=== PATIENT | female | born 1940 | race Caucasian/White ===

== ENCOUNTER → 2016-05-06 | Outpatient (CLI) | payer BC ==
[~2016-05-06] MED LIST: APR/25 PO; APR25 PO; ASCA500 PO; CEFD1CAP14 PO; CHOL100010 PO; CHOL1CAP57 PO; CYAN10005 PO; DIAZ-165 PO; DICL1GEL28 TOP; DICL1GEL34 TOP; DOXY100C2 PO; DOXY100C76 PO; DOXY75CA4; EZET10TA66 PO; FEXO1TAB46 PO; FRS/40 PO; GLUC1CAP33 PO; INSDGI SC; INSDGIPEN SC; ISOS-11 PO; ISOS30TA35 PO; KETO0.5S22 OPL; LCTX PO; LEVO175T PO; LNX125 PO; LPD600 PO; LSX40 PO; METO50TA7 PO; MISCTAB30 PO; MONT1TAB3 PO; NVLG SC; NVLGI SC; OXYC-609 PO; OXYC1TAB3 PO; POLYSOL50 OPL; PRDFOPS OPL; PYRI100T4 PO; SNG10 PO; SPIR50TA3 PO; TPRSR/50 PO; TPRSR50 PO; TROS20TA3 PO; VSC/5 PO; WARF3TAB6 PO; WARF4TAB PO; WARF4TAB8 PO; ZTA10 PO; ZTHM250 PO
--- NOTE | 2016-05-06 13:29 | DIAGNOSTIC IMAGING REPORT ---
CHEST 2 VIEWS ROUTINE CLINICAL HISTORY: R05 [id number] COMPARISON STUDY: 01/06/2016 FINDINGS: The heart is mildly enlarged. There are postsurgical changes of a midline sternotomy and valvular replacement. There is a left clavian single chamber central venous pacemaker present. There is no focal pulmonary consolidation. There are no pleural effusions. There is mild central vascular prominence without evidence of overt failure.[ There is mild basilar atelectasis, improved when compared with the prior study IMPRESSION: Postsurgical change. Mild cardiomegaly. No evidence of focal pulmonary consolidation Electronically signed by: Nikita Culp M.D. 05/06/2016 1:27 PM Dictated Date/Time: 05/06/2016 1:26 PM
== END | disposition home or self-care (01) ==
LOC: C.RAD 13:02
PROVIDERS: ATTEND Nurse Practitioner Family
DX: R05 Cough (principal); I51.7 Cardiomegaly

== ENCOUNTER → 2016-05-13 | Outpatient (CLI) | payer BC ==
[2016-05-13 14:20] LABS: BLOOD UREA NITROGEN 68 mg/dl (7-18); BUN/CREATININE RATIO 32.3 (10-20)
== END | disposition home or self-care (01) ==
LOC: C.LAB 14:25
PROVIDERS: ATTEND Nurse Practitioner Adult Health
DX: N18.3 Chronic kidney disease, stage 3 (moderate) (principal)

== ENCOUNTER → 2016-05-15 | Outpatient (CLI) | payer BC ==
[2016-05-15 13:03] LABS: HEMATOCRIT 30.5 % (37-47); MEAN CELL VOLUME 87.9 fL (80-100); MEAN CORPUSCULAR HEMOGLOBIN 28.5 pg (25-34); MEAN CORPUSCULAR HGB CONC 32.5 g/dl (32-36); MEAN PLATELET VOLUME 10.8 fL (7.4-10.4); PLATELET COUNT 171 K/uL (130-400); RED BLOOD COUNT 3.47 M/uL (4.2-5.4)
[2016-05-15 14:53] LABS: URINE APPEARANCE CLEAR (CLEAR); URINE BILIRUBIN NEG (NEG); URINE COLOR YELLOW; URINE EPITHELIAL CELL AUTO 0-5 /lpf (0-5); URINE NITRITE NEG (NEG); URINE SPECIFIC GRAVITY 1.005 (1.000-1.030); UROBILINOGEN NEG (NEG)
[2016-05-15 14:57] LABS: MANUAL MICROSCOPIC REQUIRED? NO; REVIEW REQ? NO
[2016-05-15 15:13] LABS: URINE TOTAL PROTEIN < 5.0 mg/dl (0-11.9)
== END | disposition home or self-care (01) ==
LOC: C.LAB 12:23
PROVIDERS: ATTEND Internal Medicine Nephrology
DX: I12.9 Hypertensive chronic kidney disease with stage 1 through stage 4 chronic kidney disease, or unspecified chronic kidney disease (principal); D64.9 Anemia, unspecified; N18.3 Chronic kidney disease, stage 3 (moderate); R80.9 Proteinuria, unspecified; Z51.81 Encounter for therapeutic drug level monitoring; Z79.01 Long term (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 of anticoagulants

== ENCOUNTER → 2016-05-27 | Outpatient (CLI) | payer BC ==
[2016-05-27 09:10] LABS: CHOLESTEROL/HDL RATIO 5.2; MAGNESIUM 2.4 mg/dl (1.8-2.4); THYROID STIMULATING HORMONE 0.553 uIu/ml (0.300-4.500)
[2016-05-27 10:09] LABS: ESTIMATED AVERAGE GLUCOSE 123 mg/dl; HA1C FLAG Normal (Normal)
== END | disposition home or self-care (01) ==
LOC: C.LABSPEC 09:49
PROVIDERS: ATTEND Nurse Practitioner Family
DX: E11.9 Type 2 diabetes mellitus without complications (principal); I10 Essential (primary) hypertension; E78.00 Pure hypercholesterolemia, unspecified; I25.10 Atherosclerotic heart disease of native coronary artery without angina pectoris; E03.9 Hypothyroidism, unspecified; K21.9 Gastro-esophageal reflux disease without esophagitis; D63.1 Anemia in chronic kidney disease

== ENCOUNTER 2016-06-12 18:38 | Inpatient (IN) | payer BC, OTHER ==
[~2016-06-12] VITALS: Ht 160 cm; Wt 74.7 kg
[~2016-06-12 18:38] MED LIST changes: -APR/25 PO; -APR25 PO; -CEFD1CAP14 PO; -CHOL1CAP57 PO; -DICL1GEL34 TOP; -DOXY100C2 PO; -DOXY75CA4; -EZET10TA66 PO; +HYDR-4716 PO; -INSDGI SC; -INSDGIPEN SC; -ISOS-11 PO; -KETO0.5S22 OPL; -LCTX PO; -LNX125 PO; -LPD600 PO; -LSX40 PO; -METO50TA7 PO; -MISCTAB30 PO; -NVLG SC; -OXYC-609 PO; -POLYSOL50 OPL; -PRDFOPS OPL; -SNG10 PO; -SPIR50TA3 PO; -TPRSR/50 PO; -TPRSR50 PO; -TROS20TA3 PO; -WARF4TAB PO; -WARF4TAB8 PO; -ZTHM250 PO
[2016-06-12] MEDS ORDERED: SPIR50TA3 PO ×2 (18:51)
[2016-06-12] MEDS ORDERED: LPD600 PO ×2 (18:51)
[2016-06-12] MEDS ORDERED: INSDGI SC (18:51)
[2016-06-12] MEDS ORDERED: TPRSR/50 PO (18:51)
[2016-06-12] MEDS ORDERED: LNX125 PO ×2 (18:51)
[2016-06-12] MEDS ORDERED: ACETAMINOPHEN 500 MG TAB PO STA (18:59)
[2016-06-12] MEDS ORDERED: NITROGLYCERIN OINT 2% 1GM PACKET ONE (19:03)
--- NOTE | 2016-06-12 19:12 | EMERGENCY ROOM VISIT NOTE ---
History Report prepared by Dianne: Bry Sanders Under the Supervision of: Dr. Ventura Hernandez M.D. First contact with patient: 18:52 Chief Complaint: CHEST PAIN Stated Complaint: CHEST PAIN History of Present Illness The patient is a 76 year old female who presents to the Emergency Room by EMS with complaints of persistent chest pain beginning about 1 hour ago. Per the nurse and the patient, she had gone down to her barn to do some work when she began to have some chest pain. She was given Aspirin and [address] here by EMS. The patient still has pain, which she rates at a 7/10 in severity, and notes it radiates into her left arm and back. She has a cough which she notes is from allergies. The patient has had gas bubbles the past 2 nights, but denies any chest pain or shortness of breath the past 2 days. She does not use supplemental oxygen at home. The patient has a history of mitral valve replacement, atrial fibrillation for which she has a pacemaker. She had cataract surgery yesterday. Source of History: patient, nursing staff Onset: about 1 hour ago Position: chest Symptom Intensity: 7/10 Quality: other (chest pain) Timing: other (persistent) Associated Symptoms: + back pain, + cough, No SOB Note: Patient notes having left arm pain Review of Systems See HPI for pertinent positives & negatives. A total of 10 systems reviewed and were otherwise negative. Past Medical & Surgical Medical Problems: (1) Acute pancreatitis (2) Acute respiratory failure with hypoxia (3) Acute urinary tract infection (4) Asthma (5) Atrial fibrillation (6) Cardiac pacemaker procedure (7) Cholecystectomy (8) Chronic obstructive lung disease (9) Deep venous thrombosis (10) Diabetes mellitus (11) History of - peptic ulcer (12) Hysterectomy (13) PERSONAL HX OF TIA,& CEREBRAL INFARCTION W/OUT RES DEFICITS (14) Pneumonia (15) Replacement of mitral valve (16) Sepsis Surgical Problems: (1) History of cholecystectomy Family History Diabetes mellitus Heart disease Hypertension Social History Smoking Status: Never Smoker Alcohol Use: none Drug Use: none Marital Status: Housing Status: lives with family Occupation Status: retired Current/Historical Medications Scheduled Cholecalciferol (Vitamin D3), 1,000 INTER.UNIT PO DAILY Cyanocobalamin (Vitamin B-12), 1,000 MCG PO QAM Diazepam (Valium), 5 MG PO HS Digoxin (Digoxin), 0.125 MG PO QAM Ezetimibe (Ezetimibe), 10 MG PO HS Fexofenadine Hcl (Vickie), 180 MG PO QAM Furosemide (Furosemide), 40 MG PO QAM Gemfibrozil (Gemfibrozil), 600 MG PO BID Hydralazine Hcl (Apresoline), 25 MG PO BID Insulin Glargine (Lantus), 30 UNITS SC BID Isosorbide Mononitrate (Isosorbide Mononitrate ER), 30 MG PO QAM Ketorolac Tromethamine (Ophth) (Ketorolac Tromethamine), 1 DROP OPL AMHS Levothyroxine Sodium (Synthroid), 175 MCG PO DAILY Metoprolol Succinate (Metoprolol Succinate ER), 50 MG PO QAM Misc Natural Products (Osteo Bi-Flex Joint Shiel), 1 TAB PO DAILY Montelukast Sod (Montelukast Sodium), 10 MG PO QAM Polymyxin/Trimethoprim Oph (Polytrim Oph), 1 DROP OPL QID Prednisolone Acetate (Prednisolone Acetate), 1 DROP OPL QID Pyridoxine (Vitamin B6), 100 MG PO QAM Spironolactone (Aldactone), 50 MG PO DAILY Trospium Chloride (Trospium Chloride), 20 MG PO DAILY Warfarin Sod (Jantoven), 3 MG PO WK Warfarin Sodium (Coumadin), 4 MG PO 6XWK Scheduled PRN Diclofenac Sodium (Topical) (Diclofenac Sodium), 1 APPLN TOP QID PRN for Pain- Affected Joints Insulin Aspart (Novolog), 1 DOSE SC ACHS PRN for As Needed Allergies Coded Allergies: Penicillins (Verified Allergy, Severe, anaphylaxis 30yrs ago, also broke out with sores, 02/18/16) NOTE: Timentin 05/2003 tolerated without problem Diltiazem (Verified Allergy, Unknown, unknown, 02/18/16) Levofloxacin (Verified Allergy, Unknown, UNKNOWN, 02/18/16) Moxifloxacin (Verified Allergy, Unknown, UNKNOWN, 02/18/16) Aspirin (Verified Adverse Reaction, Intermediate, increased bleeding (on warfarin), 02/18/16) Atorvastatin (Verified Adverse Reaction, Unknown, & Crestor = muscle aches /pains, 02/18/16) NSAIDs (Verified Adverse Reaction, Unknown, AVOID PER DR. HICKS - [id number] , 02/18/16) Nortriptyline (Verified Adverse Reaction, Unknown, choking on food, ) Quinidine (Verified Adverse Reaction, Unknown, flu-like symptoms, 02/18/16) Sulfamethoxazole w/Trimethoprim (Verified Adverse Reaction, Unknown, CONFUSION, 02/18/16) Physical Exam Vital Signs Date Time Temp Pulse Resp B/P Pulse Ox O2 Delivery O2 Flow Rate FiO2 06/12/16 22:30 136/58 06/12/16 22:29 87 14 97 06/12/16 22:00 125/70 06/12/16 21:59 82 22 96 06/12/16 21:54 137/66 06/12/16 21:48 97 25 97 06/12/16 21:18 95 23 96 06/12/16 20:51 37.3 88 20 138/79 96 Nasal Cannula 3.0 06/12/16 20:51 138/79 06/12/16 20:18 92 34 96 06/12/16 20:13 101 27 171/71 96 06/12/16 19:43 89 26 100 06/12/16 19:15 97 Nasal Cannula 3.0 06/12/16 19:13 92 23 95 06/12/16 19:08 99 29 97 06/12/16 18:59 110 06/12/16 18:51 96 Nasal Cannula 3.0 06/12/16 18:51 97 Nasal Cannula 3.0 06/12/16 18:51 38.2 93 33 173/73 96 Nasal Cannula 3.0 06/12/16 18:50 173/73 Physical Exam GENERAL: Patient is in moderate distress secondary to dyspnea. HEENT: No acute trauma, normocephalic atraumatic, mucous membranes moist, no nasal congestion, no scleral icterus. NECK: No stridor, no adenopathy, no meningismus, trachea is midline. LUNGS: Scattered crackles in lower lobes bilaterally. Increased respiratory rate. Dry cough noted. HEART: 2-3/6 systolic murmur with a moderate tachycardia and irregular rhythm. ABDOMEN: Soft, nontender, bowel sounds positive, no hernias, no peritonitis. EXTREMITIES: No cyanosis. Mild bilaterally pedal edema, full range of motion of all the joints without pain or difficulty, no signs for acute trauma. NEUROLOGIC: Oriented x 3, no acute motor or sensory deficits, no focal weakness. SKIN: No rash, no jaundice, no diaphoresis. Medical Decision & Procedures ER Provider Diagnostic Interpretation: Radiology results and stated below per my review and radiologist interpretation: CHEST ONE VIEW PORTABLE FINDINGS: Mild increase in cardiac size. Prior median sternotomy and valve replacement. Permanent unipolar cardiac pacemaker. Increased pulmonary vascularity. Small right pleural effusion. IMPRESSION: Congestive heart failure. Electronically signed by: Zak Olson M.D. 06/12/2016 7:30 PM Dictated Date/Time: 06/12/2016 7:29 PM Laboratory Results 06/12/16 19:10 06/12/16 19:10 Test 06/12/16 19:00 06/12/16 19:10 06/12/16 19:15 06/12/16 20:02 Pro-B-Type Natriuretic Peptide 415 pg/ml (0-900) Red Blood Count 3.32 M/uL (4.2-5.4) Mean Corpuscular Volume 88.3 fL (80-100) Mean Corpuscular Hemoglobin 27.7 pg (25-34) Mean Corpuscular Hemoglobin Concent 31.4 g/dl (32-36) RDW Standard Deviation 56.5 fL (36.4-46.3) RDW Coefficient of Variation 17.3 % (11.5-14.5) Mean Platelet Volume 10.3 fL (7.4-10.4) Prothrombin Time 32.9 SECONDS (9.0-12.0) Prothromb Time International Ratio 2.9 (0.9-1.1) Activated Partial Thromboplast Time 34.9 SECONDS (21.0-31.0) Partial Thromboplastin Ratio 1.3 Anion Gap 10.0 mmol/L (3-11) Est Creatinine Clear Calc Drug Dose 25.4 ml/min Estimated GFR () 31.6 Estimated GFR (Non- 27.2 BUN/Creatinine Ratio 25.2 (10-20) Calcium Level 9.3 mg/dl (8.5-10.1) Magnesium Level 2.1 mg/dl (1.8-2.4) Total Bilirubin 0.5 mg/dl (0.2-1) Aspartate Amino Transf (AST/SGOT) 27 U/L (15-37) Alanine Aminotransferase (ALT/SGPT) 26 U/L (12-78) Alkaline Phosphatase 117 U/L (45-117) Troponin I 0.018 ng/ml (0-0.045) Total Protein 7.7 gm/dl (6.4-8.2) Albumin 4.2 gm/dl (3.4-5.0) Globulin 3.5 gm/dl (2.5-4.0) Albumin/Globulin Ratio 1.2 (0.9-2) Digoxin Level 0.6 ng/ml (0.8-2.0) Influenza Type A (RT-PCR) Neg for Influ A (NEG) Influenza Type B (RT-PCR) Neg for Influ B (NEG) Lactic Acid Level 0.9 mmol/L (0.4-2.0) Test 06/12/16 20:53 Urine Color YELLOW Urine Appearance CLEAR (CLEAR) Urine pH 5.0 (4.5-7.5) Urine Specific [place] 1.010 (1.000-1.030) Urine Protein NEG (NEG) Urine Glucose (UA) NEG (NEG) Urine Ketones NEG (NEG) Urine Occult Blood NEG (NEG) Urine Nitrite NEG (NEG) Urine Bilirubin NEG (NEG) Urine Urobilinogen NEG (NEG) Urine Leukocyte Esterase NEG (NEG) Laboratory results reviewed by me. Medications Administered Medications (Trade) Dose Ordered Sig/Albin Route Start Time Stop Time Status Last Admin Dose Admin Nitroglycerin (Nitroglycerin 2% Oint) 1 inch STK-MED ONCE .ROUTE 06/12/16 19:03 06/12/16 19:04 DC 06/12/16 19:03 1 INCH Acetaminophen 1000 mg 1,000 mg NOW STAT PO 06/12/16 18:59 06/12/16 19:05 DC 06/12/16 19:24 1,000 MG Aztreonam/Dextrose (Azactam IV/D5 100ml) 110 ml @ 100 mls/hr NOW STAT IV 06/12/16 19:33 06/12/16 20:38 DC 06/12/16 20:09 100 MLS/HR Furosemide (Lasix Inj) 40 mg NOW STAT IV 06/12/16 20:39 06/12/16 20:40 DC 06/12/16 20:51 40 MG ECG Indication: chest pain Rate (beats per minute): 123 Rhythm: atrial fibrillation (with rapid response) Findings: RBBB, no acute ischemic change ED Course 1851: The patient was evaluated in room C5. A complete history and physical exam was performed. 1858: Ordered Acetaminophen 1,000 mg PO. 1932: Ordered Aztreonam 2,000 mg/Dextrose 110 ml @ 100 mls/hr IV. 2038: Ordered Furosemide 40 mg IV. 2042: I reassessed the patient. She looks better and feels better. 2044: Discussed the patient's case with Dr. Estrada. The patient will be evaluated for further management. Medical Decision Differentials include pneumonia or CHF, [place] or angina, bronchitis or influenza, electrolyte imbalance, anemia, and pneumothorax. There is no leukocytosis. The patient is anemic but this is baseline looking back at previous testing. There is some renal insufficiency but this also is baseline, no significant electrolyte abnormality requiring correction. There is no hepatitis. INR is 2.9 consistent with someone using Coumadin. Digoxin level is not toxic. Influenza testing is negative. EKG shows a rapid A. fib with a right bundle branch block, no acute ischemia. Cardiac enzyme testing times one is not suggestive of acute cardiac injury. Chest x-ray shows what appears to be pneumonia although radiology question the possibility of CHF. BNP was not elevated making CHF less likely. Urinalysis returned showing no evidence for infection. Blood cultures are pending. Lactic acid level was not elevated making sepsis less likely. The patient seemed in some distress. She did receive nitro paste, she was given IV Lasix for the possibility of fluid overload. She was given oral Tylenol for her fever. She received IV aztreonam as antibiotic coverage. The patient presents with a fever, shortness of breath and chest pain. I am concerned for pneumonia or an acute bronchitis. Certainly, mild fluid overload is a possibility as well. Cardiac ischemia is possible. Further workup in the hospital is warranted. I spoke to the patient and case management. The on- call hospitalist was consulted. The patient appears to be significantly improved since being treated in our ER, she is resting much more comfortably. Consults Time Called: 2034 Consulting Physician: [place] E[place], [facility] [place] Call: [phone] Discussed the patient's case with Dr. Estrada. The patient will be evaluated for further management. Impression Primary Impression: Respiratory distress Additional Impressions: PNA (pneumonia) Rapid atrial fibrillation Fever Scribe Attestation The scribe's documentation has been prepared under my direction and personally reviewed by me in its entirety. I confirm that the note above accurately reflects all work, treatment, procedures, and medical decision making performed by me. Departure Information Dispostion Being Evaluated By Hospitalist Referrals Phoenix Klein III, CRNP (PCP) Patient Instructions [facility] Problem Qualifiers
--- NOTE | 2016-06-12 19:31 | DIAGNOSTIC IMAGING REPORT ---
CHEST ONE VIEW PORTABLE CLINICAL HISTORY: CHEST PAIN dyspnea COMPARISON STUDY: 05/06/2016 FINDINGS: Mild increase in cardiac size. Prior median sternotomy and valve replacement. Permanent unipolar cardiac pacemaker. Increased pulmonary vascularity. Small right pleural effusion. IMPRESSION: Congestive heart failure. Electronically signed by: Zak Olson M.D. 06/12/2016 7:30 PM Dictated Date/Time: 06/12/2016 7:29 PM
[2016-06-12] MEDS ORDERED: AZTREONAM IV 2,000 MG in DEXTROSE 5% 100ML 100 ML IV STA (19:33)
[2016-06-12 19:44] LABS: HEMATOCRIT 29.3 % (37-47); MEAN CELL VOLUME 88.3 fL (80-100); MEAN CORPUSCULAR HEMOGLOBIN 27.7 pg (25-34); MEAN CORPUSCULAR HGB CONC 31.4 g/dl (32-36); MEAN PLATELET VOLUME 10.3 fL (7.4-10.4); PLATELET COUNT 195 K/uL (130-400); RED BLOOD COUNT 3.32 M/uL (4.2-5.4); WHITE BLOOD COUNT 10.51 K/uL (4.8-10.8)
[2016-06-12 19:46] LABS: INR 2.9 (0.9-1.1); PARTIAL THROMBOPLASTIN RATIO 1.3; PROTHROMBIN TIME (PATIENT) 32.9 SECONDS (9.0-12.0)
[2016-06-12 20:01] LABS: BUN/CREATININE RATIO 25.2 (10-20); CALCIUM 9.3 mg/dl (8.5-10.1); CREATININE 1.8 mg/dl (0.60-1.20); MAGNESIUM 2.1 mg/dl (1.8-2.4); POTASSIUM 4.2 mmol/L (3.5-5.1)
[2016-06-12 20:06] LABS: ALB/GLOB RATIO 1.2 (0.9-2)
[2016-06-12] MEDS ORDERED: FUROSEMIDE 40 MG/4 ML VIAL IV STA (20:39)
[2016-06-12 20:56] LABS: INFLUENZA A PCR Neg for Influ A (NEG); INFLUENZA B PCR Neg for Influ B (NEG)
[2016-06-12 21:07] LABS: URINE APPEARANCE CLEAR (CLEAR); URINE BILIRUBIN NEG (NEG); URINE COLOR YELLOW; URINE NITRITE NEG (NEG); UROBILINOGEN NEG (NEG)
[2016-06-12 21:19] LABS: MANUAL MICROSCOPIC REQUIRED? NO; REVIEW REQ? NO
[2016-06-12] MEDS ORDERED: LSX40 PO ×2 (21:22)
[2016-06-12] MEDS ORDERED: ISOS-11 PO ×2 (21:22)
[2016-06-12] MEDS ORDERED: APR25 PO ×2 (21:22)
[2016-06-12] MEDS ORDERED: EZET10TA66 PO ×2 (21:22)
[2016-06-12] MEDS ORDERED: TROS20TA3 PO ×2 (21:24)
[2016-06-12] MEDS ORDERED: CHOL1CAP57 PO ×2 (21:27)
[2016-06-12] MEDS ORDERED: DICL1GEL34 TOP ×2 (21:30)
[2016-06-12] MEDS ORDERED: SNG10 PO ×2 (21:30)
[2016-06-12] MEDS ORDERED: MISCTAB30 PO ×2 (21:39)
[2016-06-12] MEDS ORDERED: KETO0.5S22 OPL ×2 (21:44)
[2016-06-12] MEDS ORDERED: POLYSOL50 OPL ×2 (21:44)
[2016-06-12] MEDS ORDERED: PRDFOPS OPL ×2 (21:44)
--- NOTE | 2016-06-12 22:28 | History and Physical ---
History & Physical Date & Time of Service: Jun 12, 2016 at 22:29 Chief Complaint: Chest Pain Primary Care Physician: Phoenix Klein III, CRNP History of Present Illness Source: patient The patient is a 76-year-old female who presents to the emergency department by EMS with persistent chest discomfort and shortness of breath that began about one hour prior to arrival. She has been doing more work around the house due to her 's recent strokes, and was walking down to the barn when she began to have the shortness of breath. She was given aspirin and 2 nitroglycerin en route by EMS. In the emergency department she reports that the chest pain radiated into her left arm and back. She does have an intermittently productive cough. She has a history of mitral valve replacement , atrial fibrillation, and is status post pacemaker and is on chronic warfarin. She is status post cataract surgery in her left eye yesterday and is presently taking eyedrops. Past Medical/Surgical History Medical Problems: (1) Acute pancreatitis Status: Resolved (2) Acute urinary tract infection Status: Resolved (3) Asthma Status: Chronic (4) Atrial fibrillation Status: Chronic (5) Cardiac pacemaker procedure Status: Resolved (6) Cholecystectomy Status: Resolved (7) Chronic obstructive lung disease Status: Chronic (8) Deep venous thrombosis Status: Resolved (9) Diabetes mellitus Status: Chronic (10) History of - peptic ulcer Status: Resolved (11) Hysterectomy Status: Resolved (12) PERSONAL HX OF TIA,& CEREBRAL INFARCTION W/OUT RES DEFICITS Status: Resolved (13) Pneumonia Status: Resolved (14) Replacement of mitral valve Status: Resolved Surgical Problems: (1) History of cholecystectomy Status: Resolved Family History Diabetes mellitus Heart disease Hypertension Social History Smoking Status: Never Smoker Drug Use: none Marital Status: Housing status: lives with family Occupational Status: retired Immunizations History of Influenza Vaccine: Yes Influenza Vaccine Date: Dec 23, 2010 History of Tetanus Vaccine?: utd History of Pneumococcal: Yes History of Hepatitis B Vaccine: No Multi-Drug Resistant Organisms History of MDRO: No Allergies Coded Allergies: Penicillins (Verified Allergy, Severe, anaphylaxis 30yrs ago, also broke out with sores, 02/18/16) NOTE: Timentin 05/2003 tolerated without problem Diltiazem (Verified Allergy, Unknown, unknown, 02/18/16) Levofloxacin (Verified Allergy, Unknown, UNKNOWN, 02/18/16) Moxifloxacin (Verified Allergy, Unknown, UNKNOWN, 02/18/16) Aspirin (Verified Adverse Reaction, Intermediate, increased bleeding (on warfarin), 02/18/16) Atorvastatin (Verified Adverse Reaction, Unknown, & Crestor = muscle aches /pains, 02/18/16) NSAIDs (Verified Adverse Reaction, Unknown, AVOID PER DR. HICKS - [id number] , 02/18/16) Nortriptyline (Verified Adverse Reaction, Unknown, choking on food, ) Quinidine (Verified Adverse Reaction, Unknown, flu-like symptoms, 02/18/16) Sulfamethoxazole w/Trimethoprim (Verified Adverse Reaction, Unknown, CONFUSION, 02/18/16) Home Medications Scheduled Cholecalciferol (Vitamin D3), 1,000 INTER.UNIT PO DAILY Cyanocobalamin (Vitamin B-12), 1,000 MCG PO QAM Diazepam (Valium), 5 MG PO HS Digoxin (Digoxin), 0.125 MG PO QAM Ezetimibe (Ezetimibe), 10 MG PO HS Fexofenadine Hcl (Vickie), 180 MG PO QAM Furosemide (Furosemide), 40 MG PO QAM Gemfibrozil (Gemfibrozil), 600 MG PO BID Hydralazine Hcl (Apresoline), 25 MG PO BID Insulin Glargine (Lantus), 30 UNITS SC BID Isosorbide Mononitrate (Isosorbide Mononitrate ER), 30 MG PO QAM Ketorolac Tromethamine (Ophth) (Ketorolac Tromethamine), 1 DROP OPL AMHS Levothyroxine Sodium (Synthroid), 175 MCG PO DAILY Metoprolol Succinate (Metoprolol Succinate ER), 50 MG PO QAM Misc Natural Products (Osteo Bi-Flex Joint Shiel), 1 TAB PO DAILY Montelukast Sod (Montelukast Sodium), 10 MG PO QAM Polymyxin/Trimethoprim Oph (Polytrim Oph), 1 DROP OPL QID Prednisolone Acetate (Prednisolone Acetate), 1 DROP OPL QID Pyridoxine (Vitamin B6), 100 MG PO QAM Spironolactone (Aldactone), 50 MG PO DAILY Trospium Chloride (Trospium Chloride), 20 MG PO DAILY Warfarin Sod (Jantoven), 3 MG PO WK Warfarin Sodium (Coumadin), 4 MG PO 6XWK Scheduled PRN Diclofenac Sodium (Topical) (Diclofenac Sodium), 1 APPLN TOP QID PRN for Pain- Affected Joints Insulin Aspart (Novolog), 1 DOSE SC ACHS PRN for As Needed Review of Systems The patient denies lower extremity swelling, vision change, hearing change, sore throat, fevers, chills, sweats, weight change, fatigue, nausea, vomiting, abdominal pain, pelvic pain, blood in urine or stool, dysuria, urinary frequency or urgency, memory loss, rash, imbalance, focal weakness, numbness or tingling in arms or legs, night sweats, or allergy symptoms. The review of systems is otherwise negative other than for that already noted above, and at least 10 systems have been reviewed. Physical Exam Vital Signs Date Time Temp Pulse Resp B/P Pulse Ox O2 Delivery O2 Flow Rate FiO2 06/12/16 21:54 137/66 06/12/16 21:48 97 25 97 06/12/16 21:18 95 23 96 06/12/16 20:51 37.3 88 20 138/79 96 Nasal Cannula 3.0 06/12/16 20:51 138/79 06/12/16 20:18 92 34 96 06/12/16 20:13 101 27 171/71 96 06/12/16 19:43 89 26 100 06/12/16 19:15 97 Nasal Cannula 3.0 06/12/16 19:13 92 23 95 06/12/16 19:08 99 29 97 06/12/16 18:59 110 06/12/16 18:51 96 Nasal Cannula 3.0 06/12/16 18:51 97 Nasal Cannula 3.0 06/12/16 18:51 38.2 93 33 173/73 96 Nasal Cannula 3.0 06/12/16 18:50 173/73 The patient is awake, well-developed and adequately nourished, alert and oriented 3, normocephalic and atraumatic, lying in bed and in no acute distress. HEENT--PERRL, EOMI, mucous membranes and oropharynx dry. Neck--supple, no JVD or bruits, thyroid normal, trachea midline, no adenopathy. Heart--normal S1 and S2, no extra beats, no murmurs, rubs or gallops. Lungs--clear bilaterally, no respiratory distress, no accessory muscle use. Abdomen--normal bowel sounds and soft, nontender and nondistended, no hernias or masses, no organomegaly. Extremities--no cyanosis, clubbing or edema. There are good distal pulses b/l. Dermatologic--normal skin turgor, normal color, warm and dry, no abnormal lymph nodes, no rash. Neurologic--cranial nerves II through XII grossly intact, motor and sensory examination normal. Rheumatologic--normal range of motion, nontender, muscles and joints. Psychiatric--normal affect. Diagnostics Laboratory Results Results Past 24 Hours Test 06/12/16 19:00 06/12/16 19:10 06/12/16 19:15 06/12/16 20:02 Range/Units Pro-B-Type Natriuretic Peptide 415 0-900 pg/ml White Blood Count 10.51 4.8-10.8 K/uL Red Blood Count 3.32 4.2-5.4 M/uL Hemoglobin 9.2 12.0-16.0 g/dL Hematocrit 29.3 37-47 % Mean Corpuscular Volume 88.3 80-100 fL Mean Corpuscular Hemoglobin 27.7 25-34 pg Mean Corpuscular Hemoglobin Concent 31.4 32-36 g/dl RDW Standard Deviation 56.5 36.4-46.3 fL RDW Coefficient of Variation 17.3 11.5-14.5 % Platelet Count 195 130-400 K/uL Mean Platelet Volume 10.3 7.4-10.4 fL Prothrombin Time 32.9 9.0-12.0 SECONDS Prothromb Time International Ratio 2.9 0.9-1.1 Activated Partial Thromboplast Time 34.9 21.0-31.0 SECONDS Partial Thromboplastin Ratio 1.3 Sodium Level 139 136-145 mmol/L Potassium Level 4.2 3.5-5.1 mmol/L Chloride Level 107 98-107 mmol/L Carbon Dioxide Level 22 21-32 mmol/L Anion Gap 10.0 3-11 mmol/L Blood Urea Nitrogen 45 7-18 mg/dl Creatinine 1.80 0.60-1.20 mg/dl Est Creatinine Clear Calc Drug Dose 25.4 ml/min Estimated GFR () 31.6 Estimated GFR (Non- 27.2 BUN/Creatinine Ratio 25.2 10-20 Random Glucose 126 70-99 mg/dl Calcium Level 9.3 8.5-10.1 mg/dl Magnesium Level 2.1 1.8-2.4 mg/dl Total Bilirubin 0.5 0.2-1 mg/dl Aspartate Amino Transf (AST/SGOT) 27 15-37 U/L Alanine Aminotransferase (ALT/SGPT) 26 12-78 U/L Alkaline Phosphatase 117 45-117 U/L Troponin I 0.018 0-0.045 ng/ml Total Protein 7.7 6.4-8.2 gm/dl Albumin 4.2 3.4-5.0 gm/dl Globulin 3.5 2.5-4.0 gm/dl Albumin/Globulin Ratio 1.2 0.9-2 Digoxin Level 0.6 0.8-2.0 ng/ml Influenza Type A (RT-PCR) Neg for Influ A NEG Influenza Type B (RT-PCR) Neg for Influ B NEG Lactic Acid Level 0.9 0.4-2.0 mmol/L Test 06/12/16 20:53 Range/Units Urine Color YELLOW Urine Appearance CLEAR CLEAR Urine pH 5.0 4.5-7.5 Urine Specific [place] 1.010 1.000-1.030 Urine Protein NEG NEG Urine Glucose (UA) NEG NEG Urine Ketones NEG NEG Urine Occult Blood NEG NEG Urine Nitrite NEG NEG Urine Bilirubin NEG NEG Urine Urobilinogen NEG NEG Urine Leukocyte Esterase NEG NEG Microbiology Results 06/12/16 Blood Culture, Received Pending 06/12/16 Blood Culture, Received Pending EKG EKG shows atrial fibrillation with RVR at 121 bpm, right bundle branch block, no acute ST-T changes. Impression Assessment and Plan Atrial fibrillation with RVR/ status post cardiac pacemaker/status post mitral valve replacement/hypertension--her heart rate did normalize while in the emergency department. She'll be admitted to the telemetry unit for serial cardiac enzymes, continued cardiac rhythm monitoring and a 2-D echocardiogram with Dopplers. Continue digoxin 0.125 mg by mouth every morning, furosemide 40 mg by mouth every morning, hydralazine 25 mg by mouth twice a day, isosorbide mononitrate ER 30 mg by mouth every morning, metoprolol succinate ER 50 mg by mouth every morning, spironolactone 50 mg by mouth daily and warfarin 4 mg by mouth daily. Pneumonia--placed on vancomycin IV per renal dosing, aztreonam 2000 mg IV every 8 hours, guaifenesin extended release 600 mg by mouth twice a day, Xopenex with Atrovent nebulizers every 6 hours while awake and every 2 hours when necessary. Continue Singulair 10 mg by mouth every morning. Diabetes mellitus--decrease Lantus insulin 30 units subcutaneous twice a day 15 units subcutaneous twice a day and place on Accu-Cheks before meals and at bedtime with NovoLog coverage. Hypothyroidism--continue levothyroxine sodium at 25 g by mouth daily. Hypercholesterolemia--continue Zetia 10 mg by mouth at bedtime and gemfibrozil 600 mg by mouth twice a day. Recent cataract surgery continue all eyedrops: Prednisolone acetate, Polytrim, ketorolac. Renal insufficiency--creatinine 1.8 is close to her baseline. Insomnia--continue diazepam 5 mg by mouth at bedtime. Level of Care Telemetry Advanced Directives Existing Advance Directive: No Existing Living Will: No Existing Power of Executive Services Administrator: No Resuscitation Status FULL RESUSCITATION VTE Prophylaxis Given or contraindicated: Warfarin (Coumadin)
[2016-06-12] MEDS ORDERED: NVLG SC ×2 (22:45)
[2016-06-12] MEDS ORDERED: GLUCAGON FOR INJ 1 MG VIAL SQ PRN (23:15)
[2016-06-12] MEDS ORDERED: ACETAMINOPHEN 325 MG TAB PO PRN (23:15)
[2016-06-12] MEDS ORDERED: GLUCOSE 40% GEL 15 GM TUBE PO PRN (23:15)
[2016-06-12] MEDS ORDERED: GLUCOSE 10 TABS/TUBE PO PRN (23:15)
[2016-06-12] MEDS ORDERED: DEXTROSE 50% 50 ML SYR IV PRN (23:15)
[2016-06-12] MEDS ORDERED: ZOLPIDEM TARTRATE 5 MG TAB PO PRN (23:15)
[2016-06-12] MEDS ORDERED: DICLOFENAC SOD 1% GEL 100 GM TUBE EXT PRN (23:15)
[2016-06-12] MEDS ORDERED: ONDANSETRON INJ 2 MG/ML 2 ML VIAL IV PRN (23:15)
[2016-06-12] MEDS ORDERED: VANCOMYCIN INJ 1,700 MG in SODIUM CHLORIDE 0.9% 500ML 500 ML IV STA (23:59)
[2016-06-13] VITALS (13 sets, daily range): BP systolic 118–159; BP diastolic 60–75; PULSE 73–106; TEMP 36.3–37.9; O2SAT 92–98; Ht 160 cm; Wt 74.7 kg
[2016-06-13] MEDS ORDERED: VANCOMYCIN CONSULT ACTIVE PRN (00:15)
[2016-06-13] MEDS: NITROGLYCERIN 0.4 MG SL PER TAB CHARGE SL PRN ×4 (02:19→19:54)
[2016-06-13] MEDS ORDERED: LEVALBUTEROL/IPRATROPIUM NEB INH SCH (03:00)
[2016-06-13] MEDS ORDERED: AZTREONAM CONSULT ACTIVE PRN ×2 (03:00)
[2016-06-13] MEDS: AZTREONAM IV 1,000 MG in DEXTROSE 5% 100ML 100 ML IV SCH ×3 (05:27→20:20)
[2016-06-13] MEDS: LEVOTHYROXINE 175 MCG TAB PO SCH (05:28)
[2016-06-13 06:12] LABS: BASO % 0.2 %; BASO ABS # 0.02 K/uL (0-0.2); EOS % 1.3 %; HEMATOCRIT 27.5 % (37-47); IG% 0.1 %; LYMPH % 7.3 %; LYMPH ABS # 0.76 K/uL (1.2-3.4); MEAN CELL VOLUME 86.5 fL (80-100); MEAN CORPUSCULAR HGB CONC 31.3 g/dl (32-36); MONO % 14.2 %; NEUT % 76.9 %; PLATELET COUNT 193 K/uL (130-400); RED BLOOD COUNT 3.18 M/uL (4.2-5.4); WHITE BLOOD COUNT 10.46 K/uL (4.8-10.8)
[2016-06-13 06:18] LABS: PARTIAL THROMBOPLASTIN RATIO 1.5; PROTHROMBIN TIME (PATIENT) 33.9 SECONDS (9.0-12.0)
[2016-06-13] MEDS ORDERED: IPRATROPIUM BROMIDE NEB SOLN 0.02% 2.5 ML VIAL INH PRN (06:30)
[2016-06-13] MEDS ORDERED: LEVALBUTEROL 1.25MG/0.5ML NEB INH PRN (06:30)
[2016-06-13 06:43] LABS: BUN/CREATININE RATIO 24.8 (10-20); CALCIUM 8.6 mg/dl (8.5-10.1); CREATININE 1.8 mg/dl (0.60-1.20); MAGNESIUM 2.3 mg/dl (1.8-2.4); POTASSIUM 4.1 mmol/L (3.5-5.1)
[2016-06-13] MEDS: LEVALBUTEROL 1.25MG/0.5ML NEB INH SCH ×3 (07:30→19:00)
[2016-06-13] MEDS: IPRATROPIUM BROMIDE NEB SOLN 0.02% 2.5 ML VIAL INH SCH ×3 (07:30→19:00)
[2016-06-13] MEDS: EZETIMIBE 10MG TAB PO SCH (07:32)
[2016-06-13 07:41] LABS: COMPLETE YES
[2016-06-13] MEDS: KETOROLAC 0.5% OP SOLN 3 ML BTL OPL SCH ×2 (07:54→20:37)
[2016-06-13] MEDS: CHOLECALCIFEROL 1000 INTER.UNIT TAB PO SCH (07:54)
[2016-06-13] MEDS: PYRIDOXINE HCL 50 MG TAB PO SCH (07:55)
[2016-06-13] MEDS: TRIMETHOPRIM/POLYMYXIN B OPL SCH ×4 (07:55→20:30)
[2016-06-13] MEDS: GEMFIBROZIL 600 MG TAB PO SCH ×2 (07:55→20:33)
[2016-06-13] MEDS: CYANOCOBALAMIN 500 MCG TAB (VIT B-12) PO SCH (07:55)
[2016-06-13] MEDS: PrednisoLONE ACET 1% OP SUSP 5 ML BTL OPL SCH ×4 (07:55→20:35)
[2016-06-13] MEDS: METOPROLOL SUCC 50MG EXT REL TAB PO SCH (07:56)
[2016-06-13] MEDS: ISOSORBIDE MONONITRATE 30 MG TABCR PO SCH (07:56)
[2016-06-13] MEDS: FEXOFENADINE HCL 180 MG TAB PO SCH (07:56)
[2016-06-13] MEDS: FUROSEMIDE 40 MG TAB PO SCH (07:56)
[2016-06-13] MEDS: MONTELUKAST SOD 10 MG TAB PO SCH (07:56)
[2016-06-13] MEDS: LACTOBACILLUS ACIDOPHILUS (FLORANEX) TAB PO SCH ×3 (07:57→16:15)
[2016-06-13] MEDS: SPIRONOLACTONE 25 MG TAB PO SCH (07:57)
[2016-06-13] MEDS: INSULIN ASPART 100 UNITS/ML 3 ML PEN SC SCH ×4 (07:59→20:39)
[2016-06-13] MEDS: INSULIN GLARGINE SOLOSTAR 100 UNITS/ML 3 ML PEN SC SCH ×2 (08:00→20:39)
[2016-06-13] MEDS ORDERED: KETOROLAC 0.5% OP SOLN PER DROP CHARGE OPL SCH (09:00)
[2016-06-13] MEDS ORDERED: INSULIN GLARGINE SOLOSTAR 100 UNITS/ML 3 ML PEN SC SCH (09:00)
--- NOTE | 2016-06-13 11:41 | Pharmacy Progress Note ---
Pharmacy Antibiotic Consult Date of Service: Jun 13, 2016. Pharmacy Dosing Scope Pharmacy is consulted to initiate VANCOMYCIN & AZACTAM IV dosing therapy, order appropriate labs and adjust drug dose/frequency. Subjective The patient is a 76 year old female admitted on Jun 12, 2016 at 23:04. Objective Height (Feet): 5 Height (Inches): 3.00 Weight (Kilograms): 76.700 Lab Results (24hrs): Laboratory Tests Test 06/12/16 19:10 06/13/16 05:50 BUN/Creatinine Ratio 25.2 24.8 Blood Urea Nitrogen 45 mg/dl 45 mg/dl Creatinine 1.80 mg/dl 1.80 mg/dl White Blood Count 10.51 K/uL 10.46 K/uL Red Blood Count 3.18 M/uL Hemoglobin 8.6 g/dL Hematocrit 27.5 % Mean Corpuscular Volume 86.5 fL Mean Corpuscular Hemoglobin 27.0 pg Mean Corpuscular Hemoglobin Concent 31.3 g/dl Platelet Count 193 K/uL Mean Platelet Volume 10.0 fL Neutrophils (%) (Auto) 76.9 % Lymphocytes (%) (Auto) 7.3 % Monocytes (%) (Auto) 14.2 % Eosinophils (%) (Auto) 1.3 % Basophils (%) (Auto) 0.2 % Neutrophils # (Auto) 8.04 K/uL Lymphocytes # (Auto) 0.76 K/uL Monocytes # (Auto) 1.49 K/uL Eosinophils # (Auto) 0.14 K/uL Basophils # (Auto) 0.02 K/uL Micro Results: * 06/12/16 -- Blood x 2 -- pending Assessment & Plan 76yo female admitted with PNA ordered VANCOMYCIN and AZACTAM. Renal function is poor, but is close to baseline for patient (SCr 1.8, baseline SCr ~1.7). VANCOMYCIN: * Loading dose: VANCOMYCIN 1700mg (~22mg/kg) IV X 1 dose then VANCOMYCIN 1200mg (~15 mg/kg) IV every 30 hours. * Estimated Pk parameters: Vd ~0.7 L/kg ke ~0.027 t1/2 ~26 hours * Goal trough level estimate: between 15 - 20 mcg/mL. * Will check a trough level sooner than when VANCOMYCIN would be at Css due to renal impairment and extended dosing interval. Pharmacy will continue to follow and will adjust dose/frequency as necessary. Thank you
[2016-06-13] MEDS ORDERED: BUMETANIDE IV 2 MG in SYRINGE 0 ML IV ONE (12:45)
[2016-06-13] MEDS: DIGOXIN 0.125 MG TAB PO SCH (16:14)
[2016-06-13] MEDS: WARFARIN SOD 4 MG TAB PO SCH (16:15)
[2016-06-13] MEDS ORDERED: NURSING VERBAL MED ORDER ONE ×2 (20:15→20:30)
[2016-06-13] MEDS ORDERED: PANTOprazole INJ 40 MG in SYRINGE 0 ML IV SCH (20:30)
[2016-06-13] MEDS ORDERED: POLYETHYLENE (MIRALAX) 17 GM PACK PO ONE (20:30)
[2016-06-13] MEDS: DIAZEPAM 5MG TAB PO SCH (22:46)
[2016-06-14] VITALS (15 sets, daily range): BP systolic 112–147; BP diastolic 50–73; PULSE 73–104; TEMP 36.8–37.3; O2SAT 92–96
--- NOTE | 2016-06-14 00:01 | Progress Note ---
Subjective Date of Service: Jun 13, 2016. Subjective Pt evaluation today including: conversation w/ patient, physical exam, chart review, lab review, review of studies, review of inpatient medication list Pain: chest tightness but improved today PO Intake: very poor Voiding: no voiding problems patient states "I feel poorly" no appetite, very tired, "can't breath" or take deep breaths, sob/dyspneic, and some orthopnea reports recent weight gain office records reviewed - baseline weight about 155 # reports that breathing treatments help her pulmonary symptoms Problem List Medical Problems: (1) Cat bite of right lower leg with infection Status: Acute (2) Cellulitis Status: Acute (3) Dehydration Status: Acute (4) Fever Status: Acute (5) Fracture of right distal radius Status: Acute (6) PNA (pneumonia) Status: Acute (7) Rapid atrial fibrillation Status: Acute (8) Respiratory distress Status: Acute (9) Right arm fracture Status: Acute Review of Systems Constitutional: + fatigue, + fever Respiratory: + cough Cardiac: + chest pain, + see HPI Abdomen: No pain Objective Vital Signs Date Time Temp Pulse Resp B/P Pulse Ox O2 Delivery O2 Flow Rate FiO2 06/13/16 20:00 97 Nasal Cannula 2.0 06/13/16 19:59 37.5 106 18 118/63 97 Room Air 06/13/16 19:39 93 22 92 Room Air 06/13/16 16:30 37.3 06/13/16 16:14 82 06/13/16 15:55 37.9 92 20 136/72 96 06/13/16 15:40 Room Air 06/13/16 14:40 91 20 92 06/13/16 12:00 Room Air 06/13/16 11:50 36.3 80 20 137/75 97 Nasal Cannula 2.0 06/13/16 08:20 92 22 98 Nasal Cannula 2.0 06/13/16 08:00 Room Air 06/13/16 07:13 37.4 91 20 133/66 97 Nasal Cannula 2.0 06/13/16 04:18 36.9 101 24 159/72 94 Nasal Cannula 2.0 06/13/16 04:00 98 Nasal Cannula 2.0 06/13/16 03:03 76 22 98 Nasal Cannula 2.0 06/13/16 00:22 37.0 73 20 129/60 96 Room Air 06/12/16 23:52 37.3 87 14 161/78 97 Physical Exam General Appearance: no apparent distress, + pertinent finding (looks ill) ENT: pharynx normal Neck: + JVD (2/3 way up neck) Respiratory/Chest: no respiratory distress, no accessory muscle use, + decreased breath sounds (very poor airation throughout), + crackles (both bases) , + wheezing Cardiovascular: no gallop, + irregularly irregular, + pertinent finding ( mechanical valve sound heard all over precordium) Abdomen: normal bowel sounds, non tender, soft, no organomegaly Extremities: + swelling (1+ b/l ) Neurologic/Psychiatric: alert, oriented x 3 Skin: + pertinent finding (varicose veins legs) Laboratory Results Last 24 Hours Test 06/13/16 05:50 06/13/16 07:14 06/13/16 11:38 06/13/16 16:51 White Blood Count 10.46 K/uL Red Blood Count 3.18 M/uL Hemoglobin 8.6 g/dL Hematocrit 27.5 % Mean Corpuscular Volume 86.5 fL Mean Corpuscular Hemoglobin 27.0 pg Mean Corpuscular Hemoglobin Concent 31.3 g/dl Platelet Count 193 K/uL Mean Platelet Volume 10.0 fL Neutrophils (%) (Auto) 76.9 % Lymphocytes (%) (Auto) 7.3 % Monocytes (%) (Auto) 14.2 % Eosinophils (%) (Auto) 1.3 % Basophils (%) (Auto) 0.2 % Neutrophils # (Auto) 8.04 K/uL Lymphocytes # (Auto) 0.76 K/uL Monocytes # (Auto) 1.49 K/uL Eosinophils # (Auto) 0.14 K/uL Basophils # (Auto) 0.02 K/uL RDW Standard Deviation 55.8 fL RDW Coefficient of Variation 17.7 % Immature Granulocyte % (Auto) 0.1 % Immature Granulocyte # (Auto) 0.01 K/uL Red Blood Cell Morphology Unremarkable Prothrombin Time 33.9 SECONDS Prothromb Time International Ratio 3.0 Activated Partial Thromboplast Time 39.4 SECONDS Partial Thromboplastin Ratio 1.5 Sodium Level 138 mmol/L Potassium Level 4.1 mmol/L Chloride Level 108 mmol/L Carbon Dioxide Level 22 mmol/L Anion Gap 8.0 mmol/L Blood Urea Nitrogen 45 mg/dl Creatinine 1.80 mg/dl Est Creatinine Clear Calc Drug Dose 26.9 ml/min Estimated GFR () 31.6 Estimated GFR (Non- 27.2 BUN/Creatinine Ratio 24.8 Random Glucose 158 mg/dl Calcium Level 8.6 mg/dl Magnesium Level 2.3 mg/dl Troponin I 0.022 ng/ml Bedside Glucose 138 mg/dl 157 mg/dl 107 mg/dl Test 06/13/16 20:17 06/13/16 20:29 Troponin I 0.019 ng/ml Bedside Glucose 174 mg/dl Assessment and Plan 76yo female with: 1. suspicion of community-acquired pneumonia - on aztreonam and vancomycin (has multiple drug allergies) send [employer] swab supportive care nebs 2. acute/chronic systolic CHF - bumex 2mg IV x 1 follow UOP bmp daily check records to see when last echo was obtained 3. CKD stage 4 - creatinine is at baseline 4. a. fib - rates improved today on AV michele agents (BB, dig) cont coumadin - therapeutic INR 5. mitral valve mechanical valve replacement - INR therapeutic, continue coumadin, daily INR. 6. T2DM - controlled w/ current regimen. 7. hypothyroidism - records do not show any TSH recently; check in AM. cont synthroid. 8. anemia - chronic, likely due to CKD. Follow. No signs or symptoms of GI bleeding. 9. DVT proph - coumadin. 10. will need PT, OT consults 11. COPD/asthma - if wheezing persists or worsens then institute systemic steroids. Continued [facility] stay due to: ambulation difficulties, multiple IV medications needed Discharge planning: uncertain
[2016-06-14] MEDS: IPRATROPIUM BROMIDE NEB SOLN 0.02% 2.5 ML VIAL INH SCH ×4 (02:23→18:54)
[2016-06-14] MEDS: LEVALBUTEROL 1.25MG/0.5ML NEB INH SCH ×4 (02:30→18:54)
[2016-06-14] MEDS: AZTREONAM IV 1,000 MG in DEXTROSE 5% 100ML 100 ML IV SCH ×3 (03:41→20:21)
[2016-06-14] MEDS ORDERED: VANCOMYCIN INJ 1,200 MG in SODIUM CHLORIDE 0.9% 250ML 250 ML IV SCH (04:00)
[2016-06-14] MEDS: LEVOTHYROXINE 175 MCG TAB PO SCH (05:44)
[2016-06-14] MEDS: GEMFIBROZIL 600 MG TAB PO SCH ×2 (05:44→20:38)
[2016-06-14 06:09] LABS: BASO % 0.5 %; BASO ABS # 0.03 K/uL (0-0.2); EOS % 4.2 %; HEMATOCRIT 26.9 % (37-47); IG% 0.3 %; LYMPH % 15.5 %; LYMPH ABS # 1.03 K/uL (1.2-3.4); MEAN CELL VOLUME 87.6 fL (80-100); MEAN CORPUSCULAR HEMOGLOBIN 27.4 pg (25-34); MEAN CORPUSCULAR HGB CONC 31.2 g/dl (32-36); MEAN PLATELET VOLUME 10.6 fL (7.4-10.4); MONO % 17.5 %; PLATELET COUNT 187 K/uL (130-400); RED BLOOD COUNT 3.07 M/uL (4.2-5.4); WHITE BLOOD COUNT 6.63 K/uL (4.8-10.8)
[2016-06-14 06:17] LABS: INR 2.7 (0.9-1.1); PROTHROMBIN TIME (PATIENT) 29.9 SECONDS (9.0-12.0)
[2016-06-14 06:43] LABS: BUN/CREATININE RATIO 25.7 (10-20); CALCIUM 8.7 mg/dl (8.5-10.1); POTASSIUM 3.8 mmol/L (3.5-5.1)
[2016-06-14 06:54] LABS: THYROID STIMULATING HORMONE 1.21 uIu/ml (0.300-4.500)
[2016-06-14 07:09] LABS: COMPLETE YES; LARGE PLATELETS 1+
[2016-06-14] MEDS: LACTOBACILLUS ACIDOPHILUS (FLORANEX) TAB PO SCH ×3 (07:56→16:35)
[2016-06-14] MEDS: CHOLECALCIFEROL 1000 INTER.UNIT TAB PO SCH (07:57)
[2016-06-14] MEDS: CYANOCOBALAMIN 500 MCG TAB (VIT B-12) PO SCH (07:57)
[2016-06-14] MEDS: MONTELUKAST SOD 10 MG TAB PO SCH (07:57)
[2016-06-14] MEDS: METOPROLOL SUCC 50MG EXT REL TAB PO SCH (07:57)
[2016-06-14] MEDS: POLYETHYLENE (MIRALAX) 17 GM PACK PO SCH (07:57)
[2016-06-14] MEDS: SPIRONOLACTONE 25 MG TAB PO SCH (07:58)
[2016-06-14] MEDS: FEXOFENADINE HCL 180 MG TAB PO SCH (07:58)
[2016-06-14] MEDS: ISOSORBIDE MONONITRATE 30 MG TABCR PO SCH (07:58)
[2016-06-14] MEDS: FUROSEMIDE 40 MG TAB PO SCH (07:58)
[2016-06-14] MEDS: PrednisoLONE ACET 1% OP SUSP 5 ML BTL OPL SCH ×4 (07:59→20:25)
[2016-06-14] MEDS: KETOROLAC 0.5% OP SOLN 3 ML BTL OPL SCH ×2 (07:59→20:36)
[2016-06-14] MEDS: TRIMETHOPRIM/POLYMYXIN B OPL SCH ×4 (07:59→20:41)
[2016-06-14] MEDS: PYRIDOXINE HCL 50 MG TAB PO SCH (08:00)
[2016-06-14] MEDS: INSULIN ASPART 100 UNITS/ML 3 ML PEN SC SCH ×4 (08:30→20:49)
[2016-06-14] MEDS: INSULIN GLARGINE SOLOSTAR 100 UNITS/ML 3 ML PEN SC SCH ×2 (09:03→20:40)
[2016-06-14] MEDS ORDERED: METOPROLOL SUCC 50MG EXT REL TAB PO STA (12:54)
[2016-06-14] MEDS ORDERED: BUMETANIDE IV 2 MG in SYRINGE 0 ML IV SCH (15:00)
[2016-06-14] MEDS: WARFARIN SOD 4 MG TAB PO SCH (15:19)
[2016-06-14] MEDS: DIGOXIN 0.125 MG TAB PO SCH (15:19)
[2016-06-14] MEDS: EZETIMIBE 10MG TAB PO SCH (20:38)
[2016-06-14] MEDS: DIAZEPAM 5MG TAB PO SCH (21:09)
[2016-06-15] VITALS (24 sets, daily range): BP systolic 108–165; BP diastolic 46–71; PULSE 58–100; TEMP 36.5–37.4; O2SAT 91–98
[2016-06-15] MEDS: IPRATROPIUM BROMIDE NEB SOLN 0.02% 2.5 ML VIAL INH SCH ×4 (01:50→21:00)
[2016-06-15] MEDS: LEVALBUTEROL 1.25MG/0.5ML NEB INH SCH ×4 (01:50→21:00)
[2016-06-15] MEDS: AZTREONAM IV 1,000 MG in DEXTROSE 5% 100ML 100 ML IV SCH ×2 (04:21→11:33)
[2016-06-15] MEDS: LEVOTHYROXINE 175 MCG TAB PO SCH (06:03)
[2016-06-15] MEDS: GEMFIBROZIL 600 MG TAB PO SCH ×2 (06:03→19:51)
[2016-06-15 07:07] LABS: BASO % 0.4 %; BASO ABS # 0.03 K/uL (0-0.2); EOS % 4.4 %; HEMATOCRIT 25.2 % (37-47); IG% 0.1 %; LYMPH % 14.4 %; LYMPH ABS # 0.99 K/uL (1.2-3.4); MEAN CELL VOLUME 86.6 fL (80-100); MEAN CORPUSCULAR HEMOGLOBIN 27.1 pg (25-34); MEAN CORPUSCULAR HGB CONC 31.3 g/dl (32-36); MEAN PLATELET VOLUME 10.3 fL (7.4-10.4); MONO % 13.1 %; NEUT % 67.6 %; PLATELET COUNT 182 K/uL (130-400); RED BLOOD COUNT 2.91 M/uL (4.2-5.4); WHITE BLOOD COUNT 6.88 K/uL (4.8-10.8)
[2016-06-15 07:24] LABS: INR 3.4 (0.9-1.1); PROTHROMBIN TIME (PATIENT) 38.8 SECONDS (9.0-12.0)
[2016-06-15 07:41] LABS: BUN/CREATININE RATIO 35.4 (10-20); CALCIUM 8.7 mg/dl (8.5-10.1)
--- NOTE | 2016-06-15 08:09 | Progress Note ---
Subjective Date of Service: late entry for visit June 14, 2016. Subjective Pt evaluation today including: conversation w/ patient, conversation w/ family ( at bedside), physical exam, chart review, lab review, review of inpatient medication list Pain: denies PO Intake: improving Voiding: no voiding problems tele with a. fib rates over 100 overnight, but improved to <100 this am "I Feel better" more energy, better appetite still with cough but improved denies any dyspnea w/ walking to BR worked with PT today and did well Problem List Medical Problems: (1) Cat bite of right lower leg with infection Status: Acute (2) Cellulitis Status: Acute (3) Dehydration Status: Acute (4) Fever Status: Acute (5) Fracture of right distal radius Status: Acute (6) PNA (pneumonia) Status: Acute (7) Rapid atrial fibrillation Status: Acute (8) Respiratory distress Status: Acute (9) Right arm fracture Status: Acute Review of Systems Constitutional: No chills, No fever Respiratory: + cough, No dyspnea on exertion, No shortness of breath Cardiac: No chest pain, No orthopnea Abdomen: No pain Objective Vital Signs Date Time Temp Pulse Resp B/P Pulse Ox O2 Delivery O2 Flow Rate FiO2 06/15/16 04:05 37.3 100 22 137/68 92 Nasal Cannula 2.0 06/15/16 04:00 92 Nasal Cannula 06/15/16 01:50 89 24 95 Nasal Cannula 2.0 06/15/16 00:00 92 Room Air 06/14/16 23:19 37.0 104 22 147/70 92 Room Air 06/14/16 20:00 92 Room Air 06/14/16 19:16 36.8 93 16 141/73 92 Room Air 06/14/16 18:54 94 16 96 Room Air 06/14/16 15:35 36.9 85 16 130/58 93 Room Air 06/14/16 15:29 Room Air 06/14/16 15:19 74 06/14/16 14:03 82 20 95 Room Air 06/14/16 12:09 36.9 103 19 127/61 93 Room Air 06/14/16 11:11 Room Air 06/14/16 10:35 73 94 06/14/16 08:00 Room Air 06/14/16 07:53 37.3 101 19 130/68 94 Room Air 06/14/16 06:57 102 20 93 Room Air Physical Exam General Appearance: no apparent distress ENT: pharynx normal Neck: + JVD Respiratory/Chest: no respiratory distress, no accessory muscle use, + rales ( mild, bases), + pertinent finding (wheezing markedly improved today) Cardiovascular: no gallop, + systolic murmur, + irregularly irregular, + pertinent finding (mechanical valve closure sound) Abdomen: normal bowel sounds, non tender, soft, no organomegaly Extremities: + pedal edema (<1+ b/l) Neurologic/Psychiatric: alert, oriented x 3 Skin: + pertinent finding (varicose veins legs) Laboratory Results Last 24 Hours Test 06/14/16 06:52 06/14/16 11:33 06/14/16 16:38 06/14/16 20:13 Bedside Glucose 148 mg/dl 162 mg/dl 170 mg/dl 138 mg/dl Test 06/15/16 04:44 Assessment and Plan 76yo female with: 1. community-acquired pneumonia - improving on aztreonam and vancomycin (has multiple drug allergies) MRSA swab negative thus d/c vancomycin supportive care nebs repeat cxr AM 2. acute/chronic systolic CHF - repeat bumex 2mg IV x 1 again today follow UOP bmp daily 3. CKD stage 4 - creatinine slightly higher than baseline; BMP in am 4. a. fib - rates improved today on AV michele agents (BB, dig) cont coumadin - therapeutic INR INR in am 5. mitral valve mechanical valve replacement - INR therapeutic, continue coumadin, daily INR. 6. T2DM - controlled w/ current regimen. 7. hypothyroidism - compensated with normal TSH; cont synthroid. 8. anemia - chronic, likely due to CKD. Follow. No signs or symptoms of GI bleeding. CBC in am. Tx if Hb <7.5. 9. DVT proph - coumadin. 10. will need PT, OT consults 11. COPD/asthma - stable; nebs; defer on steroids for now. progressing appreciate PT, OT evals updated Continued [facility] stay due to: ambulation difficulties, multiple IV medications needed Discharge planning: uncertain
[2016-06-15] MEDS: PrednisoLONE ACET 1% OP SUSP 5 ML BTL OPL SCH ×4 (08:11→19:46)
[2016-06-15] MEDS: TRIMETHOPRIM/POLYMYXIN B OPL SCH ×4 (08:12→19:45)
[2016-06-15] MEDS: ISOSORBIDE MONONITRATE 30 MG TABCR PO SCH (08:12)
[2016-06-15] MEDS: SPIRONOLACTONE 25 MG TAB PO SCH (08:12)
[2016-06-15] MEDS: KETOROLAC 0.5% OP SOLN 3 ML BTL OPL SCH ×2 (08:13→19:48)
[2016-06-15] MEDS: LACTOBACILLUS ACIDOPHILUS (FLORANEX) TAB PO SCH ×3 (08:13→16:06)
[2016-06-15] MEDS: PYRIDOXINE HCL 50 MG TAB PO SCH (08:13)
[2016-06-15] MEDS: CHOLECALCIFEROL 1000 INTER.UNIT TAB PO SCH (08:13)
[2016-06-15] MEDS: CYANOCOBALAMIN 500 MCG TAB (VIT B-12) PO SCH (08:14)
[2016-06-15] MEDS: FEXOFENADINE HCL 180 MG TAB PO SCH (08:14)
[2016-06-15] MEDS: POLYETHYLENE (MIRALAX) 17 GM PACK PO SCH (08:14)
[2016-06-15] MEDS: MONTELUKAST SOD 10 MG TAB PO SCH (08:14)
[2016-06-15] MEDS: INSULIN GLARGINE SOLOSTAR 100 UNITS/ML 3 ML PEN SC SCH ×2 (08:16→19:54)
[2016-06-15] MEDS: INSULIN ASPART 100 UNITS/ML 3 ML PEN SC SCH ×4 (08:16→21:00)
[2016-06-15 08:24] LABS: ANISOCYTOSIS PRESENT; COMPLETE YES
[2016-06-15] MEDS ORDERED: METOPROLOL SUCC 50MG EXT REL TAB PO SCH ×2 (09:00)
--- NOTE | 2016-06-15 09:29 | DIAGNOSTIC IMAGING REPORT ---
CHEST 2 VIEWS ROUTINE CLINICAL HISTORY: Pneumonia. Congestive heart failure. COMPARISON STUDY: Chest radiograph June 12, 2016. FINDINGS: A left subclavian pacemaker, median sternotomy wires and prosthetic mitral valve are noted. Cardiomegaly is unchanged. A [id number] right pleural effusions unchanged. Right basilar opacity persists. There is mild left basilar opacity. Mild pulmonary edema is noted. There is no pneumothorax. IMPRESSION: 1. No change in the small to moderate right pleural effusion. 2. Mild pulmonary edema, similar to prior exam. 3. Right basilar opacity which could reflect atelectasis or consolidation. Electronically signed by: Randy Melton M.D. 06/15/2016 9:28 AM Dictated Date/Time: 06/15/2016 9:26 AM
[2016-06-15] MEDS ORDERED: VANCOMYCIN TROUGH SCH (09:30)
[2016-06-15] MEDS ORDERED: METOPROLOL SUCC 50MG EXT REL TAB PO ONE (09:45)
[2016-06-15] MEDS ORDERED: BUMETANIDE IV 1 MG in SYRINGE 0 ML IV SCH (12:00)
[2016-06-15] MEDS ORDERED: CEFDINIR 250 MG/5 ML 60 ML PO SCH (13:00)
[2016-06-15] MEDS ORDERED: AZITHROMYCIN 250 MG TAB PO ONE (13:00)
[2016-06-15] MEDS: CEFDINIR 250 MG/5 ML 60 ML PO SCH ×2 (13:40→19:59)
[2016-06-15] MEDS: WARFARIN SOD 4 MG TAB PO SCH (16:05)
[2016-06-15] MEDS: DIGOXIN 0.125 MG TAB PO SCH (16:06)
[2016-06-15] MEDS: EZETIMIBE 10MG TAB PO SCH (19:52)
[2016-06-15] MEDS: DIAZEPAM 5MG TAB PO SCH (19:58)
[2016-06-16] VITALS (11 sets, daily range): BP systolic 114–164; BP diastolic 50–67; PULSE 72–95; TEMP 36.6–37.1; O2SAT 91–100
[2016-06-16] MEDS: LEVALBUTEROL 1.25MG/0.5ML NEB INH SCH ×4 (02:51→19:04)
[2016-06-16] MEDS: IPRATROPIUM BROMIDE NEB SOLN 0.02% 2.5 ML VIAL INH SCH ×4 (02:51→19:04)
[2016-06-16] MEDS: LEVOTHYROXINE 175 MCG TAB PO SCH (05:58)
[2016-06-16] MEDS: GEMFIBROZIL 600 MG TAB PO SCH ×2 (05:58→21:09)
[2016-06-16] MEDS: MONTELUKAST SOD 10 MG TAB PO SCH (07:49)
[2016-06-16] MEDS: CYANOCOBALAMIN 500 MCG TAB (VIT B-12) PO SCH (07:50)
[2016-06-16] MEDS: LACTOBACILLUS ACIDOPHILUS (FLORANEX) TAB PO SCH ×3 (07:50→17:33)
[2016-06-16] MEDS: METOPROLOL SUCC 50MG EXT REL TAB PO SCH (07:50)
[2016-06-16] MEDS: CHOLECALCIFEROL 1000 INTER.UNIT TAB PO SCH (07:50)
[2016-06-16] MEDS: TRIMETHOPRIM/POLYMYXIN B OPL SCH ×4 (07:51→21:08)
[2016-06-16] MEDS: SPIRONOLACTONE 25 MG TAB PO SCH (07:51)
[2016-06-16] MEDS: PrednisoLONE ACET 1% OP SUSP 5 ML BTL OPL SCH ×4 (07:51→21:08)
[2016-06-16] MEDS: ISOSORBIDE MONONITRATE 30 MG TABCR PO SCH (07:51)
[2016-06-16] MEDS: FEXOFENADINE HCL 180 MG TAB PO SCH (07:52)
[2016-06-16] MEDS: AZITHROMYCIN 250 MG TAB PO SCH (07:52)
[2016-06-16] MEDS: KETOROLAC 0.5% OP SOLN 3 ML BTL OPL SCH ×2 (07:52→21:08)
[2016-06-16] MEDS: PYRIDOXINE HCL 50 MG TAB PO SCH (07:53)
[2016-06-16] MEDS: POLYETHYLENE (MIRALAX) 17 GM PACK PO SCH (07:55)
[2016-06-16] MEDS: CEFDINIR 250 MG/5 ML 60 ML PO SCH ×2 (07:55→21:21)
--- NOTE | 2016-06-16 08:05 | Progress Note ---
Subjective Date of Service: LATE ENTRY FOR VISIT Jun 15, 2016. Subjective Pt evaluation today including: conversation w/ patient, physical exam, chart review, lab review, review of studies (cxr), review of inpatient medication list Pain: none PO Intake: fair Voiding: no voiding problems tele with uncontrolled a. fib - rates > 100 her rates rapidly increase with minimal activity she reports no dyspnea or orthopnea at rest, but gets easily dyspneic with minimal activity denies chest pain she is quite anxious today worried about who has numerous medical problems despite her dyspnea she asks "can I go home today?" reports long-standing anemia and gets iron infusions has had PRBCs in the past cough much improved Problem List Medical Problems: (1) Cat bite of right lower leg with infection Status: Acute (2) Cellulitis Status: Acute (3) Dehydration Status: Acute (4) Fever Status: Acute (5) Fracture of right distal radius Status: Acute (6) PNA (pneumonia) Status: Acute (7) Rapid atrial fibrillation Status: Acute (8) Respiratory distress Status: Acute (9) Right arm fracture Status: Acute Review of Systems Constitutional: + fatigue, No chills, No fever Respiratory: + cough, + dyspnea on exertion, No dyspnea at rest, No hemoptysis , No shortness of breath Cardiac: No PND, No chest pain, No orthopnea Abdomen: No pain Psychiatric: + anxiety Objective Vital Signs Date Time Temp Pulse Resp B/P Pulse Ox O2 Delivery O2 Flow Rate FiO2 06/16/16 07:02 95 20 97 Room Air 06/16/16 04:01 91 Room Air 2.0 06/16/16 03:03 36.9 90 20 164/62 91 Room Air 06/16/16 00:00 91 Room Air 2.0 06/15/16 23:58 37.0 76 14 128/67 93 06/15/16 23:30 36.9 83 14 114/70 93 06/15/16 23:00 37.0 82 14 117/46 96 06/15/16 22:25 37.0 86 14 141/70 94 06/15/16 22:12 36.9 86 14 113/63 92 06/15/16 20:00 91 Room Air 2.0 06/15/16 19:50 73 20 95 Nasal Cannula 2.0 06/15/16 19:50 37.1 88 20 165/61 91 Room Air 06/15/16 19:20 37.4 72 16 143/55 91 06/15/16 18:20 37.4 82 18 108/56 98 2.0 06/15/16 17:33 37.3 78 20 126/62 96 2.0 06/15/16 17:14 37.4 80 18 133/58 96 06/15/16 16:24 37.4 81 20 122/66 97 2.0 06/15/16 16:06 83 06/15/16 16:04 37.3 83 20 120/51 97 2.0 06/15/16 15:53 Room Air 06/15/16 15:47 37.3 70 18 114/55 97 06/15/16 15:37 37.3 58 20 116/53 93 06/15/16 15:26 37.0 77 20 122/54 95 Nasal Cannula 2.0 06/15/16 14:00 73 20 95 Nasal Cannula 2.0 06/15/16 12:00 Room Air 06/15/16 12:00 37.3 83 18 119/60 95 Room Air 06/15/16 08:12 36.5 98 20 146/71 98 Nasal Cannula 2.0 06/15/16 08:00 Room Air Physical Exam General Appearance: no apparent distress, + pertinent finding (anxious ) ENT: pharynx normal Neck: + JVD Respiratory/Chest: no respiratory distress, no accessory muscle use, + rales ( scant, bases), + pertinent finding (no wheezing) Cardiovascular: + tachycardia, + systolic murmur, + irregularly irregular Abdomen: normal bowel sounds, non tender, soft, no organomegaly Extremities: + pedal edema (<1+ b/l ) Neurologic/Psychiatric: alert, oriented x 3, + depressed affect Skin: + pallor Laboratory Results Last 24 Hours Test 06/15/16 11:01 06/15/16 16:43 06/15/16 20:57 06/16/16 06:51 Bedside Glucose 151 mg/dl 133 mg/dl 145 mg/dl 132 mg/dl Test 06/16/16 07:04 Assessment and Plan 76yo female with: 1. community-acquired pneumonia - improving clinically. ok to d/c IV abx change to omnicef & zithromax (latter for atypical coverage) today is day # 4 of abx. Plan 7-10 days of Rx. 2. acute/chronic systolic CHF - ongoing. CXR with persistent edema. to receive bumex x 2 with PRBCs today. BMP in am. 3. CKD stage 4 - Cr stable at 2 but BUN has risen. Watch for over-diuresis. BMP in am. 4. a. fib - rates uncontrolled. pacemaker interrogation showed >30% of time she has rate of > 100 increase BB today PRBCs x 2 units should also help rates and her symptoms continues on coumadin daily INR 5. mitral valve mechanical valve replacement - INR therapeutic, continue coumadin, daily INR. 6. T2DM - controlled w/ current regimen. 7. hypothyroidism - compensated with normal TSH; cont synthroid. 8. anemia - chronic, likely due to CKD. Now with acute component - likely due to phlebotomy while hospitalized. No signs or symptoms of GI bleeding. In light of ongoing cardiopulmonary sx's will Tx 2 units PRBCs today with bumex in between units and after. 9. DVT proph - coumadin. 10. COPD/asthma - stable; nebs; defer on steroids for now. progressing appreciate PT, OT evals Continued [facility] stay due to: ambulation difficulties, multiple IV medications needed, other (uncontrolled a. fib, anemia) Discharge planning: uncertain
[2016-06-16 08:28] LABS: HEMATOCRIT 28.3 % (37-47); MEAN CELL VOLUME 83.7 fL (80-100); MEAN CORPUSCULAR HEMOGLOBIN 27.2 pg (25-34); MEAN CORPUSCULAR HGB CONC 32.5 g/dl (32-36); PLATELET COUNT 211 K/uL (130-400); RED BLOOD COUNT 3.38 M/uL (4.2-5.4); WHITE BLOOD COUNT 7.17 K/uL (4.8-10.8)
[2016-06-16] MEDS: INSULIN ASPART 100 UNITS/ML 3 ML PEN SC SCH ×4 (08:30→20:48)
[2016-06-16 08:35] LABS: PROTHROMBIN TIME (PATIENT) 45.2 SECONDS (9.0-12.0)
[2016-06-16 08:49] LABS: BUN/CREATININE RATIO 41.9 (10-20); CALCIUM 9.2 mg/dl (8.5-10.1); POTASSIUM 4.1 mmol/L (3.5-5.1)
[2016-06-16] MEDS: INSULIN GLARGINE SOLOSTAR 100 UNITS/ML 3 ML PEN SC SCH ×2 (09:13→20:46)
[2016-06-16] MEDS: DIGOXIN 0.125 MG TAB PO SCH (15:59)
[2016-06-16] MEDS: EZETIMIBE 10MG TAB PO SCH (21:10)
[2016-06-16] MEDS: DIAZEPAM 5MG TAB PO SCH (21:10)
--- NOTE | 2016-06-17 00:44 | Progress Note ---
Subjective Date of Service: Jun 16, 2016. Subjective Pt evaluation today including: conversation w/ patient, conversation w/ family ( by phone), physical exam, chart review, lab review, review of inpatient medication list Pain: denies PO Intake: improved Voiding: no voiding problems tele overnight with improved a. fib rates; still some occasional runs over 100 BPM but the overall trend is that of significant improvement she has less cough denies on dyspnea on exertion today tolerated PRBCs last pm no orthopnea Problem List Medical Problems: (1) Cat bite of right lower leg with infection Status: Acute (2) Cellulitis Status: Acute (3) Dehydration Status: Acute (4) Fever Status: Acute (5) Fracture of right distal radius Status: Acute (6) PNA (pneumonia) Status: Acute (7) Rapid atrial fibrillation Status: Acute (8) Respiratory distress Status: Acute (9) Right arm fracture Status: Acute Review of Systems Constitutional: No chills, No fever Respiratory: No sputum Cardiac: No PND, No edema, No orthopnea Abdomen: No pain Objective Vital Signs Date Time Temp Pulse Resp B/P Pulse Ox O2 Delivery O2 Flow Rate FiO2 06/16/16 23:12 37.1 82 18 114/54 100 Room Air 06/16/16 20:00 Room Air 06/16/16 19:06 77 12 97 Room Air 06/16/16 18:59 37.0 72 18 128/50 93 Room Air 06/16/16 16:00 Room Air 06/16/16 15:59 37.1 77 18 131/67 92 Room Air 06/16/16 15:59 84 06/16/16 14:05 73 20 96 Room Air 06/16/16 12:25 36.9 82 18 122/66 94 Room Air 06/16/16 12:00 Room Air 06/16/16 08:03 36.6 83 18 124/54 98 Room Air 06/16/16 08:00 Room Air 06/16/16 07:02 95 20 97 Room Air 06/16/16 04:01 91 Room Air 2.0 06/16/16 03:03 36.9 90 20 164/62 91 Room Air Physical Exam General Appearance: no apparent distress ENT: pharynx normal Neck: + JVD Respiratory/Chest: no respiratory distress, no accessory muscle use, + crackles (right base), + rales (left base) Cardiovascular: no gallop, + systolic murmur, + irregularly irregular, + pertinent finding (mechanical valve closure sound) Abdomen: normal bowel sounds, non tender, soft, no organomegaly Extremities: no pedal edema Neurologic/Psychiatric: alert, oriented x 3 Laboratory Results Last 24 Hours Test 06/16/16 06:51 06/16/16 07:58 06/16/16 10:26 06/16/16 13:00 Bedside Glucose 132 mg/dl 174 mg/dl White Blood Count 7.17 K/uL Red Blood Count 3.38 M/uL Hemoglobin 9.2 g/dL Hematocrit 28.3 % Mean Corpuscular Volume 83.7 fL Mean Corpuscular Hemoglobin 27.2 pg Mean Corpuscular Hemoglobin Concent 32.5 g/dl RDW Standard Deviation 52.5 fL RDW Coefficient of Variation 17.1 % Platelet Count 211 K/uL Mean Platelet Volume 10.0 fL Prothrombin Time 45.2 SECONDS Prothromb Time International Ratio 4.0 Sodium Level 137 mmol/L Potassium Level 4.1 mmol/L Chloride Level 104 mmol/L Carbon Dioxide Level 20 mmol/L Anion Gap 13.0 mmol/L Blood Urea Nitrogen 84 mg/dl Creatinine 2.00 mg/dl Est Creatinine Clear Calc Drug Dose 23.7 ml/min Estimated GFR () 27.8 Estimated GFR (Non- 24.0 BUN/Creatinine Ratio 41.9 Random Glucose 153 mg/dl Calcium Level 9.2 mg/dl Stool Occult Blood NEGATIVE Test 06/16/16 16:18 06/16/16 20:19 Bedside Glucose 129 mg/dl 153 mg/dl Assessment and Plan 76yo female with: 1. community-acquired pneumonia - clinically resolved. day #5 of abx - has been transitioned to PO omnicef & zithromax (latter for atypicals) Plan 7-10 days of Rx. 2. acute/chronic systolic CHF - clinically resolved. Cr same as yesterday but BUN is elevated markedly. Thus - No further diuresis. last echo was 12/2015 showing EF 50-55%, mild-moderate TR, well functioning mechanical mitral valve. 3. CKD stage 4 - Cr stable at 2 but BUN has risen; stop diuresis. Hemoccult NEGATIVE for blood so upper GI bleeding unlikely cause of the prerenal azotemia. BMP am. 4. a. fib - rates much improved following PRBCs as well as titration of her beta jose roberto. her pacemaker interrogation this admission showed >30% of time she has rate of > 100 continues on coumadin; INR today 4 so hold today's dose daily INR 5. mitral valve mechanical valve replacement - coumadin 6. T2DM - controlled w/ current regimen. 7. hypothyroidism - compensated with normal TSH; cont synthroid. 8. anemia - chronic, likely due to CKD. Now with acute component - likely due to phlebotomy while hospitalized. No signs or symptoms of GI bleeding. Hemoccult NEGAIVE. s/p 2 units PRBCs with improved H/H repeat CBC am for stability 9. DVT proph - coumadin. 10. COPD/asthma - stable; nebs; defer on steroids for now. cleared by PT, OT for home O2 sats were about 95% in RA w/ walking today HRs were about 100 or less w/ walking today watch a. fib rates overnight on tele repeat labs in am if labs/telemetry are satisfactory overnight can d/c home tomorrow on Friday Continued [facility] stay due to: other (uncontrolled a. fib, anemia) Discharge planning: home
[2016-06-17 01:45] VITALS: PULSE 80; O2SAT 97
[2016-06-17] MEDS: LEVALBUTEROL 1.25MG/0.5ML NEB INH SCH ×2 (01:45→07:53)
[2016-06-17] MEDS: IPRATROPIUM BROMIDE NEB SOLN 0.02% 2.5 ML VIAL INH SCH ×2 (01:45→07:53)
[2016-06-17 03:21] VITALS: BP 114/42; PULSE 84; TEMP 36.9; O2SAT 99
[2016-06-17] MEDS: GEMFIBROZIL 600 MG TAB PO SCH (05:32)
[2016-06-17] MEDS: LEVOTHYROXINE 175 MCG TAB PO SCH (05:32)
[2016-06-17] MEDS: KETOROLAC 0.5% OP SOLN 3 ML BTL OPL SCH (07:48)
[2016-06-17] MEDS: TRIMETHOPRIM/POLYMYXIN B OPL SCH ×2 (07:48→13:05)
[2016-06-17] MEDS: CHOLECALCIFEROL 1000 INTER.UNIT TAB PO SCH (07:49)
[2016-06-17] MEDS: PYRIDOXINE HCL 50 MG TAB PO SCH (07:49)
[2016-06-17] MEDS: AZITHROMYCIN 250 MG TAB PO SCH (07:49)
[2016-06-17] MEDS: PrednisoLONE ACET 1% OP SUSP 5 ML BTL OPL SCH ×2 (07:49→13:05)
[2016-06-17] MEDS: FEXOFENADINE HCL 180 MG TAB PO SCH (07:49)
[2016-06-17] MEDS: METOPROLOL SUCC 50MG EXT REL TAB PO SCH (07:50)
[2016-06-17] MEDS: LACTOBACILLUS ACIDOPHILUS (FLORANEX) TAB PO SCH ×2 (07:50→11:09)
[2016-06-17] MEDS: MONTELUKAST SOD 10 MG TAB PO SCH (07:50)
[2016-06-17] MEDS: CYANOCOBALAMIN 500 MCG TAB (VIT B-12) PO SCH (07:50)
[2016-06-17] MEDS: SPIRONOLACTONE 25 MG TAB PO SCH (07:51)
[2016-06-17] MEDS: POLYETHYLENE (MIRALAX) 17 GM PACK PO SCH (07:51)
[2016-06-17] MEDS: ISOSORBIDE MONONITRATE 30 MG TABCR PO SCH (07:51)
[2016-06-17] MEDS: INSULIN ASPART 100 UNITS/ML 3 ML PEN SC SCH ×2 (07:53→12:00)
[2016-06-17 07:54] VITALS: PULSE 76; O2SAT 92
[2016-06-17] MEDS: INSULIN GLARGINE SOLOSTAR 100 UNITS/ML 3 ML PEN SC SCH (07:54)
[2016-06-17] MEDS: CEFDINIR 250 MG/5 ML 60 ML PO SCH (07:56)
[2016-06-17 08:38] VITALS: BP 154/52; PULSE 105; TEMP 36.7; O2SAT 94
[2016-06-17 08:56] LABS: HEMATOCRIT 28.2 % (37-47); MEAN CELL VOLUME 86.2 fL (80-100); MEAN CORPUSCULAR HEMOGLOBIN 27.5 pg (25-34); MEAN CORPUSCULAR HGB CONC 31.9 g/dl (32-36); MEAN PLATELET VOLUME 10.2 fL (7.4-10.4); PLATELET COUNT 229 K/uL (130-400); RED BLOOD COUNT 3.27 M/uL (4.2-5.4); WHITE BLOOD COUNT 6.34 K/uL (4.8-10.8)
[2016-06-17 09:04] LABS: INR 3.4 (0.9-1.1); PROTHROMBIN TIME (PATIENT) 37.7 SECONDS (9.0-12.0)
[2016-06-17 09:19] LABS: BUN/CREATININE RATIO 38.1 (10-20); POTASSIUM 4.4 mmol/L (3.5-5.1)
[2016-06-17 11:13] VITALS: BP 129/66; PULSE 69; TEMP 36.5; O2SAT 94
[2016-06-17] MEDS ORDERED: AZIT-57 PO ×2 (11:28)
[2016-06-17] MEDS ORDERED: LCTX PO ×2 (11:28)
[2016-06-17] MEDS ORDERED: CEFD1CAP14 PO ×2 (11:28)
[2016-06-17] MEDS ORDERED: TPRSR50 PO ×2 (11:28)
[2016-06-17] MEDS ORDERED: INSDGIPEN SC ×2 (11:28)
--- NOTE | 2016-06-17 11:38 | Discharge Instructions ---
Discharge Instructions Date of Service Jun 17, 2016. Admission Reason for Admission: Acute Resp. Failure W/ Hypoxia, Pneumonia Discharge Discharge Diagnosis / Problem: Pneumonia and Congestive Heart Failure Discharge Goals Goal(s): Decrease discomfort, Improve function, Increase independence Activity Recommendations Activity Limitations: as noted below Lifting Limitations: gradually increase as tolerated Exercise/Sports Limitations: as tolerated May Resume Sexual Activity: when tolerated Shower/Bathe: no limitations . 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 -- This medication helps control your heart rate with atrial fibrillation - Your INR (Coumadin level) is 3.4 today -- Recommend taking COUMADIN 2 MG TODAY AND TOMORROW - 06/17 and 06/18 until INR check on Monday 06/19 at 10 AM Diabetes: - Your Lantus was reducted to 15 units twice a day and would recommend continuing this until your follow-up appointment - You may discuss with your family doctor about going back to your normal dosing but it was reduced to avoid low sugar levels at this time Anemia - you received blood products on 06/16/16 - Keep your follow-up appointment with the assembler semiconductor (blood doctor) as previously scheduled Follow-Up: - See Cardiology - June 27 at 9:30 AM - See family doctor - June 30 at 1200 PM - [facility] - INR check June 19 at 10 AM Call your Primary Care doctor if any of the following symptoms or problems start or get worse: * Shortness of breath or difficulty breathing * Wake up at night short of breath * Chest pain * Cough * Swelling of your hands, feet, or legs * More fatigued or tired with your normal activity * Palpitations - sudden fast heart beats WEIGHT * Weigh yourself every morning after using the bathroom. * Use the same scale. * Wear the same amount of clothing. * Write your weight down on a chart. * Call your Primary Care doctor if you gain more than 2-3 pounds in 1-2 days. MEDICATIONS * Use this discharge instruction sheet for medication instructions. * Take your medications at the time your doctor ordered. * Do not skip a dose of your medicines. * If you miss a dose of medicine, take it as soon as possible, but DO NOT DOUBLE A DOSE. * Read your medicine information when you get home. * Know all of the side effects of your medicine. If in doubt, ask your pharmacist * Call your Primary Care doctor's office if you have any side effects. * Be sure all of your doctors know what medicine and herbs you take (including cold, flu, and herbal medicine). Take the following with you to your follow-up doctor appointments: * Weight Chart * Medication List * List of questions Do not drink excessive alcohol, beer or wine. Current Hospital Diet Patient's current hospital diet: AHA Diet (Heart Healthy), Diabetes Type 2 Diet Discharge Diet Recommended Diet: AHA Diet (Heart Healthy), Low Sodium Diet (2gm Na), Diabetes Type 2 Diet Pending Studies Studies pending at discharge: no Laboratory Results Hemoglobin A1c Test 05/27/16 08:13 Range/Units Estimated Average Glucose 123 mg/dl Hemoglobin A1c 5.9 H 4.5-5.6 % Lipid Panel Test 05/27/16 08:13 Range/Units Triglycerides Level 136 0-150 mg/dl Cholesterol Level 135 0-200 mg/dl HDL Cholesterol 26 mg/dl Cholesterol/HDL Ratio 5.2 LDL Cholesterol, Calculated 82 mg/dl Medical Emergencies . Who to Call and When: Call 911 or go to the Emergency Room if: * If at any time you feel your situation is an emergency * You have tightness or pain in your chest that does not go away with rest or Nitroglycerin * You are very short of breath even with rest . Non-Emergent Contact Non-Emergency issues call your: Primary Care Provider Call Non-Emergent contact if: you have a fever, your pain is concerning you, you have any medication questions . . "Provider Documentation" section prepared by Robyn Abernathy. VTE Core Measure Inpt VTE Proph given/why not?: Warfarin (Coumadin)
[2016-06-17 12:58] VITALS: BP 129/66; PULSE 69; TEMP 36.5; O2SAT 94
--- NOTE | 2016-06-17 13:35 | Discharge Summary ---
Discharge Summary Date of Service Jun 17, 2016. (Robyn Abernathy PA-C) Discharge Summary Admission Date: Jun 12, 2016 at 23:04 Discharge Date: Jun 17, 2016 Discharge Disposition: Home Principal Diagnosis: Community Acquired Pneumonia: Acute on Chronic Congestive Heart Failure Problems/Secondary Diagnoses: Medical Problems: (1) Acute pancreatitis (2) Acute respiratory failure with hypoxia (3) Acute urinary tract infection (4) Asthma (5) Atrial fibrillation (6) Cardiac pacemaker procedure (7) Cholecystectomy (8) Chronic obstructive lung disease (9) Deep venous thrombosis (10) Diabetes mellitus (11) History of - peptic ulcer (12) Hysterectomy (13) PERSONAL HX OF TIA,& CEREBRAL INFARCTION W/OUT RES DEFICITS (14) Pneumonia (15) Replacement of mitral valve (16) Sepsis Surgical Problems: (1) History of cholecystectomy Immunizations: Have You Had Influenza Vaccine: Yes Influenza Vaccine Date: Dec 23, 2010 History of Tetanus Vaccine?: utd History of Pneumococcal: Yes History of Hepatitis B Vaccine: No Procedures: 1. CHEST ONE VIEW PORTABLE CLINICAL HISTORY: CHEST PAIN dyspnea COMPARISON STUDY: 05/06/2016 FINDINGS: Mild increase in cardiac size. Prior median sternotomy and valve replacement. Permanent unipolar cardiac pacemaker. Increased pulmonary vascularity. Small right pleural effusion. IMPRESSION: Congestive heart failure. 2. CHEST 2 VIEWS ROUTINE CLINICAL HISTORY: Pneumonia. Congestive heart failure. COMPARISON STUDY: Chest radiograph June 12, 2016. FINDINGS: A left subclavian pacemaker, median sternotomy wires and prosthetic mitral valve are noted. Cardiomegaly is unchanged. A [id number] right pleural effusions unchanged. Right basilar opacity persists. There is mild left basilar opacity. Mild pulmonary edema is noted. There is no pneumothorax. IMPRESSION: 1. No change in the small to moderate right pleural effusion. 2. Mild pulmonary edema, similar to prior exam. 3. Right basilar opacity which could reflect atelectasis or consolidation. (Robyn Abernathy PA-C) Medication Reconciliation New Medications: Cefdinir (Omnicef) 300 Mg Cap 300 MG PO Q12H, #3 CAP take one evening dose 06/17/16 then take twice a day Azithromycin (Azithromycin) 250 Mg Tab 250 MG PO DAILY for 1 Day, #1 TAB start tomorrow 06/18/16 Insulin Glargine (Lantus Solostar) 100 Unit/Ml Inj 15 UNIT SC BID for 15 Days Lactobacillus Acidophilus (Floranex) 1 Tab Tab 4 TAB PO TIDM for 2 Days, TAB Metoprolol Succinate (Metoprolol Succinate ER) 50 Mg Tabcr 100 MG PO QAM for 30 Days Continued Medications: Cholecalciferol (Vitamin D3) 1,000 Unit Cap 1000 INTER.UNIT PO DAILY Cyanocobalamin (Vitamin B-12) 1,000 Mcg Tab 1000 MCG PO QAM Diazepam (Valium) 5 Mg Tab 5 MG PO HS Diclofenac Sodium (Topical) (Diclofenac Sodium) 1 % Gel 1 APPLN TOP QID PRN for Pain-Affected Joints Digoxin (Digoxin) 0.125 Mg Tab 0.125 MG PO QAM Ezetimibe (Ezetimibe) 10 Mg Tab 10 MG PO HS Fexofenadine Hcl (Vickie) 180 Mg Tab 180 MG PO QAM, TAB Furosemide (Furosemide) 40 Mg Tab 40 MG PO QAM Gemfibrozil (Gemfibrozil) 600 Mg Tab 600 MG PO BID TAKE THIS MEDICATION 30 MINUTES BEFORE BREAKFAST AND BEDTIME Hydralazine Hcl (Apresoline) 25 Mg Tab 25 MG PO BID Insulin Aspart (Novolog) 100 Units/Ml Inj 1 DOSE SC ACHS PRN for As Needed COVERAGE DIRECTED BY SLIDING SCALE Isosorbide Mononitrate (Isosorbide Mononitrate ER) 30 Mg Tabcr 30 MG PO QAM Ketorolac Tromethamine (Ophth) (Ketorolac Tromethamine) 0.5 % Pushpa 1 DROP OPL [facility] START 06/12/2016, DURATION 1-2 WEEKS Levothyroxine Sodium (Synthroid) 175 Mcg Tab 175 MCG PO DAILY, TAB Misc Natural Products (Osteo Bi-Flex Joint Shiel) 1 Tab Tab 1 TAB PO DAILY Montelukast Sod (Montelukast Sodium) 10 Mg Tab 10 MG PO QAM Polymyxin/Trimethoprim Oph (Polytrim Oph) Soln 1 DROP OPL QID START 06/12/2016, DURATION 1-2 WEEKS Prednisolone Acetate (Prednisolone Acetate) 75 Drops/5 Ml Susp 1 DROP OPL QID START 06/12/2016, DURATION 1-2 WEEKS Pyridoxine (Vitamin B6) 100 Mg Tab 100 MG PO QAM Spironolactone (Aldactone) 50 Mg Tab 50 MG PO DAILY Trospium Chloride (Trospium Chloride) 20 Mg Tab 20 MG PO DAILY Warfarin Sod (Jantoven) 3 Mg Tab 3 MG PO WK, TAB TAKE 3 MG EVERY FRIDAY OR OTHERWISE DIRECTED TO TAKE BY ANTICOAGULATION CLINIC/MD Warfarin Sodium (Coumadin) 4 Mg Tab 4 MG PO 6XWK, TAB TAKE 4 MG EVERY FRIDAY,FRIDAY,FRIDAY,FRIDAY,FRIDAY AND FRIDAY OR OTHERWISE DIRECTED TO TAKE BY ANTICOAGULATION CLINIC/MD Discontinued Medications: Insulin Glargine (Lantus) 100 Unit/Ml Inj 30 UNITS SC BID Metoprolol Succinate (Metoprolol Succinate ER) 50 Mg Tabcr 50 MG PO QAM Discharge Exam Review of Systems: Constitutional: No chills, No fever Eyes: No worsening of vision ENT: No nasal symptoms, No sore throat, No trouble swallowing Respiratory: + cough, No dyspnea at rest, No dyspnea on exertion, No sputum Cardiovascular: No chest pain Abdomen: No constipation, No diarrhea, No nausea, No pain, No vomiting Musculoskeletal: No calf pain, No swelling Genitourinary - Female: No dysuria Physical Exam: General Appearance: WD/WN, no apparent distress Eyes: sclerae normal ENT: hearing grossly normal Neck: supple, no JVD, trachea midline Respiratory/Chest: normal breath sounds, no respiratory distress, no accessory muscle use, + crackles (right base) Cardiovascular: no edema, + irregularly irregular, + pertinent finding ( mechanical sounding murmur) Abdomen / GI: normal bowel sounds, non tender, soft Extremities: no calf tenderness, no pedal edema Neurologic/Psychiatric: alert, oriented x 3 Skin: normal color, warm/dry (Robyn Abernathy, PANikC) Hospital Course ADMISSION: The patient is a 76-year-old female who presents to the emergency department by EMS with persistent chest discomfort and shortness of breath that began about one hour prior to arrival. She has been doing more work around the house due to her 's recent strokes, and was walking down to the barn when she began to have the shortness of breath. She was given aspirin and 2 nitroglycerin en route by EMS. In the emergency department she reports that the chest pain radiated into her left arm and back. She does have an intermittently productive cough. She has a history of mitral valve replacement , atrial fibrillation, and is status post pacemaker and is on chronic warfarin. She is status post cataract surgery in her left eye yesterday and is presently taking eyedrops. HOSPITAL COURSE: Ms. Morales was admitted for community-acquired pneumonia and acute on chronic systolic CHF. She received inpatient antibiotic treatment with conversion to Cefdinir 300 mg BID and azithromycin 250 mg daily to complete a seven-day course. CXR continues to show pleural effusions in regards to her CHF. Clinically she is improving with some diuresis. Due to her chronic kidney disease stage IV, she was diuresed has kidney function lab. Currently creatinine is stable at 2.0 with some elevation in BUN and diuresis was discontinued. For continued management she was continued on her home dose furosemide 40 mg daily. She remained in atrial fibrillation with intermittent RVR which improved with increased to metoprolol dosing and PRBCs. Metoprolol was increased from 50 mg daily to 100 mg daily. Pacemaker was interrogated which revealed greater than 30% episodes of tachycardia. CBC trending which revealed normocytic/normochromic anemia suggested of anemia of chronic disease. Lowest hemoglobin of 7.9. Hemoccult obtained and negative. She was transfused 2 units PRBCs on 06/16/2016 with stabilization of her hemoglobin at 9.0 -9.2. No other signs of acute bleeding appreciated. She had a supratherapeutic INR of 4 with Coumadin held. Currently INR is 3.4. She was instructed to continue Coumadin 2 mg daily until INR check on 06/19. Plan to maintain INR between 2.5-3.5 for her mechanical mitral valve. Given recent illness, her Lantus was decreased to 15 units SC BID with sliding scale coverage as needed. She was instructed to continue this dosing until follow-up for concern for hypoglycemia. PT/OT evaluations completed and patient is safe to return home. Home health services were discussed with patient and recommended however patient refusing these at this time. Patient expresses increased responsibilities at home due to an ailing . When discussing home health services with the patient she states her would not want services to come to the house. Reinforced the benefits of home health services as patient also revealing may have some onset of dementia and difficulty continuing home responsibilities. Patient was established with cardiology and PCP follow-up. She reports she follows with hematology for her anemia. Patient is hemodynamically stable, without acute complaints, and is optimal for discharge home at this time. Total Time Spent: Greater than 30 minutes This includes examination of the patient, discharge planning, medication reconciliation, and communication with other providers. (Robyn Abernathy, KATHIC) i personally examined pt and verified all bruce points w A Michela PAC feeling better wants to go home discussed meds feeling better anemia improved, stable for home INR 3.4 outpt f/u CBC, BMP, PT/INR later this week (Rolo Alvarez D.O.) Discharge Instructions Please refer to the electronic Patient Visit Report (Discharge Instructions) for additional information. (Robyn Abernathy, KATHIC) Additional Copies To Yenifer Winters CRNP; Arslan Lunsford M.D.; Phoenix Klein III, CRNP
[2016-07-22] MEDS ORDERED: OXYC-609 PO (16:07)
[2016-09-25] MEDS ORDERED: WARF4TAB8 PO (11:24)
[2016-11-27] MEDS ORDERED: METO50TA7 PO (11:08)
[2016-12-03] MEDS ORDERED: WARF4TAB PO ×2 (10:34)
== END 2016-06-17 14:24 | disposition home or self-care (01) | DRG 291 ==
LOC: ENRESERVDT → ENRESERVTM → EDBD 18:38 → C.EDC 18:41 → C.2T 23:04
PROVIDERS: ADMIT Hospitalist; ATTEND Family Medicine
DX: I50.23 Acute on chronic systolic (congestive) heart failure (principal); J18.9 Pneumonia, unspecified organism; N18.4 Chronic kidney disease, stage 4 (severe); I48.91 Unspecified atrial fibrillation; Z83.3 Family history of diabetes mellitus; Z82.49 Family history of ischemic heart disease and other diseases of the circulatory system; Z95.2 Presence of prosthetic heart valve; Z95.0 Presence of cardiac pacemaker; I12.9 Hypertensive chronic kidney disease with stage 1 through stage 4 chronic kidney disease, or unspecified chronic kidney disease; E11.9 Type 2 diabetes mellitus without complications; E03.9 Hypothyroidism, unspecified; E78.00 Pure hypercholesterolemia, unspecified; N28.9 Disorder of kidney and ureter, unspecified; G47.00 Insomnia, unspecified; Z79.01 Long term (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 of anticoagulants; D64.9 Anemia, unspecified; J44.9 Chronic obstructive pulmonary disease, unspecified; J45.909 Unspecified asthma, uncomplicated; Z51.81 Encounter for therapeutic drug level monitoring

== ENCOUNTER → 2016-06-24 | Outpatient (CLI) | payer BC, OTHER ==
[~2016-06-24] MED LIST changes: +APR25 PO; +AZIT-57 PO; +CEFD1CAP14 PO; +CHOL1CAP57 PO; +DICL1GEL34 TOP; +DOXY100C2 PO; +DOXY75CA4; +EZET10TA66 PO; +INHALER INH; +INSDGI SC; +INSDGIPEN SC; +ISOS-11 PO; +KETO0.5S22 OPL; +LCTX PO; +LNX125 PO; +LPD600 PO; +LSX40 PO; +METO50TA7 PO; +MISCTAB30 PO; +NVLG SC; +OXYC-609 PO; +POLYSOL50 OPL; +PRDFOPS OPL; +SNG10 PO; +SPIR50TA3 PO; +TPRSR/50 PO; +TPRSR50 PO; +TROS20TA3 PO; +WARF4TAB PO; +WARF4TAB8 PO
[2016-06-24 13:20] LABS: ALB/GLOB RATIO 0.9 (0.9-2); ALKALINE PHOSPHATASE 113 U/L (45-117); ALT/SGPT 49 U/L (12-78); AST/SGOT 45 U/L (15-37); BLOOD UREA NITROGEN 65 mg/dl (7-18); BUN/CREATININE RATIO 30.9 (10-20); CARBON DIOXIDE 23 mmol/L (21-32); CHLORIDE 105 mmol/L (98-107); GLUCOSE 93 mg/dl (70-99); POTASSIUM 4.5 mmol/L (3.5-5.1); SODIUM 138 mmol/L (136-145)
== END | disposition home or self-care (01) ==
LOC: C.LAB 10:31
PROVIDERS: ATTEND Nurse Practitioner Family
DX: J18.9 Pneumonia, unspecified organism (principal)

== ENCOUNTER → 2016-06-24 | Outpatient (CLI) | payer BC ==
[~2016-06-24] MED LIST changes: -ASCA500 PO; -CHOL100010 PO; -DICL1GEL28 TOP; -DOXY100C76 PO; -FRS/40 PO; -GLUC1CAP33 PO; -HYDR-4716 PO; -ISOS30TA35 PO; -MONT1TAB3 PO; -NVLGI SC; -OXYC1TAB3 PO; -VSC/5 PO; -ZTA10 PO
--- NOTE | 2016-06-24 13:38 | DIAGNOSTIC IMAGING REPORT ---
TWO VIEW CHEST CLINICAL HISTORY: Community acquired pneumonia. FINDINGS: PA and lateral chest radiographs are compared to study dated 06/15/2016. Correlation is made with chest CT dated 10/16/2013. A single lead cardiac pacemaker is unchanged in position and partially obscures the left upper chest. The patient is status post midline sternotomy and cardiac valve surgery. The heart is enlarged and there is atherosclerotic calcification of the thoracic aorta. The pulmonary vasculature is noncongested. Nonspecific chronic interstitial thickening is unchanged. There is a small to moderate right pleural effusion with right basilar airspace consolidation. The left lung is grossly clear. There is no pneumothorax. The skeletal structures are osteopenic. Degenerative change is seen throughout the thoracic spine. IMPRESSION: 1. Cardiomegaly and cardiac pacemaker. There is no radiographic evidence of congestive failure. 2. Small to moderate right pleural effusion with right basilar consolidation. This could represent atelectasis and/or pneumonia. Clinical correlation will be required. Electronically signed by: Ventura Kaplan M.D. 06/24/2016 1:36 PM Dictated Date/Time: 06/24/2016 1:33 PM
== END | disposition home or self-care (01) ==
LOC: C.RAD 12:24
PROVIDERS: ATTEND Nurse Practitioner Family
DX: J18.9 Pneumonia, unspecified organism (principal); I51.7 Cardiomegaly; Z95.0 Presence of cardiac pacemaker

== ENCOUNTER 2016-06-26 10:47 | Inpatient (IN) | payer BC, OTHER ==
[~2016-06-26] VITALS: Ht 160 cm; Wt 74.2 kg
[2016-06-26] VITALS (7 sets, daily range): BP systolic 127–140; BP diastolic 53–69; PULSE 60–69; TEMP 36.5–36.9; O2SAT 92–98; Ht 160 cm; Wt 74.2 kg
[~2016-06-26 10:47] MED LIST changes: -DOXY100C2 PO; -DOXY75CA4; -INHALER INH; -INSDGI SC; -METO50TA7 PO; -OXYC-609 PO; -TPRSR/50 PO; -WARF4TAB PO; -WARF4TAB8 PO
[2016-06-26 12:03] LABS: BASO % 0.5 %; BASO ABS # 0.03 K/uL (0-0.2); COMPLETE YES; EOS % 4.6 %; HEMATOCRIT 29.5 % (37-47); IG% 0.3 %; LYMPH % 14.9 %; LYMPH ABS # 0.93 K/uL (1.2-3.4); MEAN CELL VOLUME 82.6 fL (80-100); MEAN CORPUSCULAR HEMOGLOBIN 25.8 pg (25-34); MEAN CORPUSCULAR HGB CONC 31.2 g/dl (32-36); MEAN PLATELET VOLUME 9.6 fL (7.4-10.4); MONO % 12.5 %; NEUT % 67.2 %; PLATELET COUNT 285 K/uL (130-400); RED BLOOD COUNT 3.57 M/uL (4.2-5.4); WHITE BLOOD COUNT 6.25 K/uL (4.8-10.8)
[2016-06-26 12:08] LABS: ISTAT CREATININE 1.9 mg/dl (0.6-1.3); ISTAT HEMOGLOBIN 10.2 g/dl (12.0-16.0); ISTAT IONIZED CALCIUM 1.19 mmol/l (1.12-1.32)
[2016-06-26] MEDS ORDERED: DOXY75CA4 (12:08)
--- NOTE | 2016-06-26 12:08 | DIAGNOSTIC IMAGING REPORT ---
SINGLE VIEW CHEST CLINICAL HISTORY: Dyspnea. FINDINGS: An AP, portable, upright chest radiograph is compared to study dated 06/24/2016. Correlation is made with chest CT dated 10/16/2013. The examination is degraded by portable technique and patient rotation. A single lead cardiac pacemaker is unchanged in position and partially obscures the left upper chest. The patient is status post midline sternotomy and cardiac valve surgery. The heart is enlarged and there is atherosclerotic calcification of the thoracic aorta. There is mild pulmonary vascular congestion. Nonspecific interstitial thickening is unchanged. There is a small to moderate right pleural effusion with right basilar airspace consolidation. The left lung is grossly clear noting linear atelectasis at the left lung base. There is no pneumothorax. The skeletal structures are osteopenic. Degenerative change is seen throughout the thoracic spine. IMPRESSION: 1. Cardiomegaly and cardiac pacemaker. There is mild pulmonary vascular congestion. 2. Small to moderate right pleural effusion with right basilar consolidation. This could represent atelectasis and/or pneumonia, and appears to have modestly increased from 06/24/2016. Electronically signed by: Ventura Kaplan M.D. 06/26/2016 12:06 PM Dictated Date/Time: 06/26/2016 12:03 PM
[2016-06-26 12:20] LABS: PARTIAL THROMBOPLASTIN RATIO 1.5; PROTHROMBIN TIME (PATIENT) 51.9 SECONDS (9.0-12.0)
[2016-06-26 12:23] LABS: BUN/CREATININE RATIO 33.2 (10-20); CALCIUM 9.1 mg/dl (8.5-10.1); MAGNESIUM 2.7 mg/dl (1.8-2.4); POTASSIUM 4.6 mmol/L (3.5-5.1)
[2016-06-26 12:24] LABS: INR 4.6 (0.9-1.1)
[2016-06-26 12:34] LABS: CKMB/CK RATIO 2.6 (0-3.0); THYROID STIMULATING HORMONE 2.07 uIu/ml (0.300-4.500)
--- NOTE | 2016-06-26 12:52 | EMERGENCY ROOM VISIT NOTE ---
ED Visit Note First contact with patient: 11:18 I did evaluate and examine this patient myself. I did guide management for the patient. I agree with the PA's assessment as discussed. Please see the PAs dictation for further details. I did independently review the 12 EKG, x-ray and blood work. She has worsening pneumonia on the right side. Her INR is supratherapeutic. She has chronic anemia and kidney disease. She will be hospitalized for further evaluation.
[2016-06-26] MEDS ORDERED: LEVALBUTEROL 1.25MG/0.5ML NEB INH STA (13:49)
[2016-06-26] MEDS ORDERED: ACETAMINOPHEN 325 MG TAB PO PRN (14:00)
[2016-06-26] MEDS ORDERED: POLYETHYLENE (MIRALAX) 17 GM PACK PO PRN (14:00)
[2016-06-26] MEDS ORDERED: ALUMINUM/MAGNESIUM/SIMETH (MAALOX MAX) 30 ML UDC PO PRN (14:00)
[2016-06-26] MEDS ORDERED: DICLOFENAC SOD 1% GEL 100 GM TUBE EXT PRN (14:00)
[2016-06-26] MEDS ORDERED: MAGNESIUM HYDROXIDE SUSP 30 ML UDC PO PRN (14:00)
--- NOTE | 2016-06-26 14:25 | History and Physical ---
History & Physical Date & Time of Service: Jun 26, 2016 at 14:23 Chief Complaint: Fluid Retention, High I&R Primary Care Physician: Phoenix Klein III, CRNP History of Present Illness Source: patient, family Ms. Morales is a 76 y/o female with PMHx of Systolic Congestive Heart Failure S/ P Pacemaker, Mechanical Mitral Valve, Persistent Atrial Fibrillation, COPD/ Asthma, T2DM, CKD Stage IV, Anemia of Chronic Disease, Hypothyroidism, and Pneumonia (May 2016) who presents to the ED complaining of worsening SOB, generalized weakness, and edema. She was recently discharge [facility] for pneumonia and CHF. She was evaluated by her PCP on 06/24 who then initiated doxycycline. She states that she felt that she was getting better upon discharge however began to feel worse with continued SOB and intermittent fevers. She has been experiencing increased again, mild increase in peripheral edema, and progressive orthopnea for approximately 5 days. She states she took an extra 20 mg of Lasix with no relief. Continues to have a loose productive cough of thick green sputum. Patient was seen at the Coumadin clinic, INR was noted to be 4.7. Patient looks generally ill-appearing and recommendations given to report to the ED. Associated generalized weakness and poor appetite. In the ED, patient is afebrile without leukocytosis with unremarkable vital signs. CXR with mild pulmonary vascular congestion with small/moderate R pleural effusion with right basilar consolidation. EKG with atrial fibrillation and intermittent ventricular pacing. BNP 932. Hemoglobin stable at 9.2. INR 4.6. Influenza negative. Patient will be admitted to telemetry for acute on chronic systolic congestive heart failure. Past Medical/Surgical History Medical Problems: (1) Acute pancreatitis Status: Resolved (2) Acute urinary tract infection Status: Resolved (3) Asthma Status: Chronic (4) Atrial fibrillation Status: Chronic (5) Cardiac pacemaker procedure Status: Resolved (6) Cholecystectomy Status: Resolved (7) Chronic obstructive lung disease Status: Chronic (8) Deep venous thrombosis Status: Resolved (9) Diabetes mellitus Status: Chronic (10) History of - peptic ulcer Status: Resolved (11) Hysterectomy Status: Resolved (12) PERSONAL HX OF TIA,& CEREBRAL INFARCTION W/OUT RES DEFICITS Status: Resolved (13) Pneumonia Status: Resolved (14) Replacement of mitral valve Status: Resolved Surgical Problems: (1) History of cholecystectomy Status: Resolved Family History Diabetes mellitus Heart disease Hypertension Social History Smoking Status: Never Smoker Smokeless Tobacco Use: Yes Alcohol Use: none Drug Use: none Marital Status: Housing status: lives with family Occupational Status: retired Immunizations History of Influenza Vaccine: Yes Influenza Vaccine Date: Dec 23, 2010 History of Tetanus Vaccine?: utd History of Pneumococcal: Yes History of Hepatitis B Vaccine: No Multi-Drug Resistant Organisms History of MDRO: No Allergies Coded Allergies: Penicillins (Verified Allergy, Severe, anaphylaxis 30yrs ago, also broke out with sores, 02/18/16) NOTE: Timentin 05/2003 tolerated without problem Diltiazem (Verified Allergy, Unknown, unknown, 02/18/16) Levofloxacin (Verified Allergy, Unknown, UNKNOWN, 02/18/16) Moxifloxacin (Verified Allergy, Unknown, UNKNOWN, 02/18/16) Aspirin (Verified Adverse Reaction, Intermediate, increased bleeding (on warfarin), 02/18/16) Atorvastatin (Verified Adverse Reaction, Unknown, & Crestor = muscle aches /pains, 02/18/16) NSAIDs (Verified Adverse Reaction, Unknown, AVOID PER DR. HICKS - [id number] , 02/18/16) Nortriptyline (Verified Adverse Reaction, Unknown, choking on food, ) Quinidine (Verified Adverse Reaction, Unknown, flu-like symptoms, 02/18/16) Sulfamethoxazole w/Trimethoprim (Verified Adverse Reaction, Unknown, CONFUSION, 02/18/16) Home Medications Scheduled Azithromycin (Azithromycin), 250 MG PO DAILY Cefdinir (Omnicef), 300 MG PO Q12H Cholecalciferol (Vitamin D3), 1,000 INTER.UNIT PO DAILY Cyanocobalamin (Vitamin B-12), 1,000 MCG PO QAM Diazepam (Valium), 5 MG PO HS Digoxin (Digoxin), 0.125 MG PO QAM Ezetimibe (Ezetimibe), 10 MG PO HS Fexofenadine Hcl (Vickie), 180 MG PO QAM Furosemide (Furosemide), 40 MG PO QAM Gemfibrozil (Gemfibrozil), 600 MG PO BID Hydralazine Hcl (Apresoline), 25 MG PO BID Insulin Glargine (Lantus Solostar), 15 UNIT SC BID Isosorbide Mononitrate (Isosorbide Mononitrate ER), 30 MG PO QAM Ketorolac Tromethamine (Ophth) (Ketorolac Tromethamine), 1 DROP OPL [facility] Lactobacillus Acidophilus (Floranex), 4 TAB PO TIDM Levothyroxine Sodium (Synthroid), 175 MCG PO DAILY Metoprolol Succinate (Metoprolol Succinate ER), 100 MG PO QAM Misc Natural Products (Osteo Bi-Flex Joint Shiel), 1 TAB PO DAILY Montelukast Sod (Montelukast Sodium), 10 MG PO QAM Polymyxin/Trimethoprim Oph (Polytrim Oph), 1 DROP OPL QID Prednisolone Acetate (Prednisolone Acetate), 1 DROP OPL QID Pyridoxine (Vitamin B6), 100 MG PO QAM Spironolactone (Aldactone), 50 MG PO DAILY Trospium Chloride (Trospium Chloride), 20 MG PO DAILY Warfarin Sod (Jantoven), 3 MG PO WK Warfarin Sodium (Coumadin), 4 MG PO [id number] Scheduled PRN Diclofenac Sodium (Topical) (Diclofenac Sodium), 1 APPLN TOP QID PRN for Pain- Affected Joints Insulin Aspart (Novolog), 1 DOSE SC ACHS PRN for As Needed Miscellaneous Medications Doxycycline (Monohydrate) (Doxycycline) Review of Systems REVIEW OF SYSTEMS: General/Constitutional: +FEVERS, GENERALIZED WEAKNESS/FATIGUE, WEIGHT GAIN ENT: Denies visual changes, nasal drainage, hearing loss, sore throat, trouble swallowing Cardiovascular: Denies chest pain, palpitations Respiratory: +COUGH, THICK GREEN SPUTUM, SOB, WHEEZING, ORTHOPNEA GI: Denies nausea, vomiting, abdominal pain, constipation, diarrhea, melena/ hematochezia : Denies dysuria, frequency, hematuria Musculoskeletal: +MILD INCREASE IN B/L LE EDEMA; Denies joint/muscle aches Neurologic: Denies dizziness/lightheadedness, numbness/tingling, weakness Psychiatric: Deferred Endocrine: Deferred Hematologic/Lymphatic: Denies bleeding/clotting abnormalities Skin: Denies rash, itch, new skin changes, easy bruising Allergy/Immunologic: Deferred Physical Exam Vital Signs Date Time Temp Pulse Resp B/P Pulse Ox O2 Delivery O2 Flow Rate FiO2 06/26/16 13:00 70 17 118/61 97 Room Air 06/26/16 11:36 95 Room Air 06/26/16 11:33 77 06/26/16 11:25 Room Air 06/26/16 10:51 36.6 68 16 145/65 96 Room Air PHYSICAL EXAM:: General Appearance: Ill-appearing, mild respiratory distress who is A&O x 3 HEENT: Head is normocephalic/atraumatic; EOMI; PERRLA; Hearing grossly intact; Mucous membranes moist; Pharynx negative for exudate/lesions Neck: Supple; Trachea midline; Mild JVD; Neg lymphadenopathy Heart: Irregularly irregular with mechanical heart sounds and no G/R Lungs: Respirations mildly labored, diffuse rhonchi with intermittent wheezes throught all lung murray; forceful breaths Abdomen: Soft, non-tender, mildly distended; Positive BS x 4 quadrants; Neg organomegaly Extremities: Capillary refill < 2 seconds; trace to 1+ pitting edema b/l to mid- villareal; Neg cyanosis Neurological: Speech clear; Gross motor/sensory function intact; Neg focal neurologic deficits Psychiatric: Appropriate mood/affect Skin: Normal Color; Warm/Dry; Neg rashes, ecchymosis, lacerations/ulcerations Diagnostics Laboratory Results Results Past 24 Hours Test 06/26/16 11:37 06/26/16 11:45 06/26/16 11:49 06/26/16 11:51 Range/Units White Blood Count 6.25 4.8-10.8 K/uL Red Blood Count 3.57 4.2-5.4 M/uL Hemoglobin 9.2 12.0-16.0 g/dL Hematocrit 29.5 37-47 % Mean Corpuscular Volume 82.6 80-100 fL Mean Corpuscular Hemoglobin 25.8 25-34 pg Mean Corpuscular Hemoglobin Concent 31.2 32-36 g/dl Platelet Count 285 130-400 K/uL Mean Platelet Volume 9.6 7.4-10.4 fL Neutrophils (%) (Auto) 67.2 % Lymphocytes (%) (Auto) 14.9 % Monocytes (%) (Auto) 12.5 % Eosinophils (%) (Auto) 4.6 % Basophils (%) (Auto) 0.5 % Neutrophils # (Auto) 4.20 1.4-6.5 K/uL Lymphocytes # (Auto) 0.93 1.2-3.4 K/uL Monocytes # (Auto) 0.78 0.11-0.59 K/uL Eosinophils # (Auto) 0.29 0-0.5 K/uL Basophils # (Auto) 0.03 0-0.2 K/uL RDW Standard Deviation 52.8 36.4-46.3 fL RDW Coefficient of Variation 17.4 11.5-14.5 % Immature Granulocyte % (Auto) 0.3 % Immature Granulocyte # (Auto) 0.02 0.00-0.02 K/uL Prothrombin Time 51.9 9.0-12.0 SECONDS Prothromb Time International Ratio 4.6 0.9-1.1 Activated Partial Thromboplast Time 38.8 21.0-31.0 SECONDS Partial Thromboplastin Ratio 1.5 Sodium Level 139 136-145 mmol/L Potassium Level 4.6 3.5-5.1 mmol/L Chloride Level 108 98-107 mmol/L Carbon Dioxide Level 23 21-32 mmol/L Anion Gap 8.0 3-11 mmol/L Blood Urea Nitrogen 66 7-18 mg/dl Creatinine 2.00 0.60-1.20 mg/dl Est Creatinine Clear Calc Drug Dose 24.3 ml/min Estimated GFR () 27.8 Estimated GFR (Non- 24.0 BUN/Creatinine Ratio 33.2 10-20 Random Glucose 97 70-99 mg/dl Calcium Level 9.1 8.5-10.1 mg/dl Magnesium Level 2.7 1.8-2.4 mg/dl Total Bilirubin 0.5 0.2-1 mg/dl Aspartate Amino Transf (AST/SGOT) 43 15-37 U/L Alanine Aminotransferase (ALT/SGPT) 51 12-78 U/L Alkaline Phosphatase 122 45-117 U/L Total Creatine Kinase 87 26-192 U/L Creatine Kinase MB 2.3 0.5-3.6 ng/ml Creatine Kinase MB Ratio 2.6 0-3.0 Total Protein 7.7 6.4-8.2 gm/dl Albumin 3.8 3.4-5.0 gm/dl Globulin 3.9 2.5-4.0 gm/dl Albumin/Globulin Ratio 1.0 0.9-2 Thyroid Stimulating Hormone (TSH) 2.070 0.300-4.500 uIu/ml Influenza Type A Antigen Neg for Influ A NEG Influenza Type B Antigen Neg for Influ B NEG Bedside Lactic Acid Venous 0.82 0.90-1.70 mmol/L Bedside Troponin I 0.000 0-0.045 ng/ml SI-Xaw-M-Type Natriuretic Peptide 932 0-900 pg/ml Test 06/26/16 11:54 06/26/16 11:55 Range/Units Bedside Hemoglobin 10.2 12.0-16.0 g/dl Bedside Hematocrit 30 37-47 % Bedside Sodium 138 135-144 mEq/L Bedside Potassium 4.5 3.3-5.0 mEq/L Bedside Chloride 105 101-112 mEq/L Bedside Total CO2 19 24-31 mEq/l Anion Gap 20.0 16-25 mmol/L Bedside Blood Urea Nitrogen 68 7-18 mg/dl Bedside Creatinine 1.9 0.6-1.3 mg/dl Bedside Glucose (other) 98 70-99 mg/dl Bedside Ionized Calcium (Fadi) 1.19 1.12-1.32 mmol/l Microbiology Results 06/26/16 Blood Culture, Received Pending 06/26/16 Blood Culture, Received Pending Diagnostic Radiology 1. SINGLE VIEW CHEST CLINICAL HISTORY: Dyspnea. FINDINGS: An AP, portable, upright chest radiograph is compared to study dated 06/24/2016. Correlation is made with chest CT dated 10/16/2013. The examination is degraded by portable technique and patient rotation. A single lead cardiac pacemaker is unchanged in position and partially obscures the left upper chest. The patient is status post midline sternotomy and cardiac valve surgery. The heart is enlarged and there is atherosclerotic calcification of the thoracic aorta. There is mild pulmonary vascular congestion. Nonspecific interstitial thickening is unchanged. There is a small to moderate right pleural effusion with right basilar airspace consolidation. The left lung is grossly clear noting linear atelectasis at the left lung base. There is no pneumothorax. The skeletal structures are osteopenic. Degenerative change is seen throughout the thoracic spine. IMPRESSION: 1. Cardiomegaly and cardiac pacemaker. There is mild pulmonary vascular congestion. 2. Small to moderate right pleural effusion with right basilar consolidation. This could represent atelectasis and/or pneumonia, and appears to have modestly increased from 06/24/2016. EKG Atrial fibrillation with occasional ventricular-paced complexes Indeterminate axis Right bundle branch block Abnormal ECG When compared with ECG of 14-JUN-2016 06:41, Electronic ventricular pacemaker is now evident Confirmed by KATI PHELPS ([id number]) on 06/26/2016 12:16:14 PM Impression Assessment and Plan Ms. Morales is a 76 y/o female with PMHx of Systolic Congestive Heart Failure S/ P Pacemaker, Mechanical Mitral Valve, Persistent Atrial Fibrillation, COPD/ Asthma, T2DM, CKD Stage IV, Anemia of Chronic Disease, Hypothyroidism, and Pneumonia (May 2016) who presents to the ED complaining of worsening SOB, generalized weakness, and edema. Acute on Chronic Systolic Congestive Heart Failure and Pulmonary HTN: - Hold home Lasix and give Lasix 40 mg IV 1 dose - consideration for Bumex for additional dosing - Echo (2014) - EF 45-50%, mild hypokinesis of left ventricle, and right ventricular systolic pressure increased - Obtain updated echo - Serial cardiac enzymes - Atrovent and Xopenex nebulizers - Imdur 30 mg daily - Had a cardiology appointment for tomorrow - follows with Dr. Lunsford - consideration for consultation HCAP: - Recent admission for pneumonia - question worsening of pneumonia on CXR -- Obtain PA and lateral views - better assessment of pleural effusion - parapneumonic effusion? - PCR influenza - Primaxin 500 mg IV Q12H renally dosed and vancomycin per pharmacy dosing Persistent Atrial Fibrillation S/P Pacemaker and S/P Mechanical Mitral Valve: Supratherapeutic INR - Digoxin 0.125 mg - Metoprolol 100 mg daily - increased on last admission as pacemaker interrogation reveals greater than 30% occurrence of tachycardia -- Of note EKG in ED showing ventricular pacing more prevalent - continue to monitor - Hold Coumadin and continue to trend INR - patient does have mechanical valve CKD Stage IV: Baseline Cr 1.6-2 COPD: - Singulair 10 mg daily T2DM: - Lantus 15 units SC BID and SSI coverage HTN: - Hydralazine 25 mg BID Hypothyroidism: - Synthroid 175 mcg daily HLD: - Zetia 10 mg daily and Lopid 600 mg BID DVT Prophylaxis: Supratherapeutic INR Code Status: FULL RESUSCITATION W/O MECH VENT Disposition: Social Service consult and PT/OT evaluations - Previous admission - PT/OT cleared for returning home - did recommend HHS that patient declined - She cares for her ill who has experienced debilitating strokes and level dementia - question her ability to manage taking care of him and her own chronic medical needs Level of Care Telemetry Resuscitation Status FULL NO MECH VENTILATION VTE Prophylaxis VTE Risk Assessment Done? Y/N: Yes Risk Level: Moderate Given or contraindicated: Warfarin (Coumadin), T.E.Dulce Maria Stockings, SCD's Assessment and Plan Attending Addendum: I have physically seen and examined this patient, have directed their medical care, have supervised the PA's activity, and agree with the H&P as noted above, with the following changes: NONE.
[2016-06-26] MEDS ORDERED: FUROSEMIDE INJ 40 MG in SYRINGE 0 ML IV ONE (14:30)
[2016-06-26] MEDS ORDERED: LEVALBUTEROL 1.25MG/3ML NEB INH PRN (14:30)
[2016-06-26] MEDS ORDERED: GLUCOSE 40% GEL 15 GM TUBE PO PRN (14:45)
[2016-06-26] MEDS ORDERED: GLUCOSE 10 TABS/TUBE PO PRN (14:45)
[2016-06-26] MEDS ORDERED: GLUCAGON FOR INJ 1 MG VIAL SQ PRN (14:45)
[2016-06-26] MEDS ORDERED: DEXTROSE 50% 50 ML SYR IV PRN (14:45)
[2016-06-26 14:46] LABS: URINE APPEARANCE CLEAR (CLEAR); URINE BILIRUBIN NEG (NEG); URINE COLOR YELLOW; URINE EPITHELIAL CELL AUTO 20-30 /lpf (0-5); URINE NITRITE NEG (NEG); URINE SPECIFIC GRAVITY 1.012 (1.000-1.030); UROBILINOGEN NEG (NEG)
[2016-06-26 14:47] LABS: MANUAL MICROSCOPIC REQUIRED? NO; REVIEW REQ? NO; ZZUR CULT IF INDIC CLEAN CATCH NO
[2016-06-26] MEDS: LEVALBUTEROL 1.25MG/0.5ML NEB INH SCH ×2 (15:37→19:23)
[2016-06-26] MEDS: IPRATROPIUM BROMIDE NEB SOLN 0.02% 2.5 ML VIAL INH SCH ×2 (15:38→19:23)
[2016-06-26] MEDS ORDERED: IMIPENEM/CILASTATIN CONSULT ACTIVE PRN (15:45)
[2016-06-26] MEDS ORDERED: VANCOMYCIN CONSULT ACTIVE PRN (15:45)
--- NOTE | 2016-06-26 15:51 | Pharmacy Progress Note ---
Pharmacy Antibiotic Consult Date of Service: Jun 26, 2016. Pharmacy Dosing Scope Pharmacy is consulted to initiate Vancomycin/Primaxin IV dosing therapy, order appropriate labs and adjust drug dose/frequency. Subjective The patient is a 76 year old female admitted on 06/26/16. Objective Height (Feet): 5 Height (Inches): 3.00 Weight (Kilograms): 77.500 Lab Results (24hrs): Laboratory Tests Test 06/26/16 11:37 BUN/Creatinine Ratio 33.2 Blood Urea Nitrogen 66 mg/dl Creatinine 2.00 mg/dl White Blood Count 6.25 K/uL Red Blood Count 3.57 M/uL Hemoglobin 9.2 g/dL Hematocrit 29.5 % Mean Corpuscular Volume 82.6 fL Mean Corpuscular Hemoglobin 25.8 pg Mean Corpuscular Hemoglobin Concent 31.2 g/dl Platelet Count 285 K/uL Mean Platelet Volume 9.6 fL Neutrophils (%) (Auto) 67.2 % Lymphocytes (%) (Auto) 14.9 % Monocytes (%) (Auto) 12.5 % Eosinophils (%) (Auto) 4.6 % Basophils (%) (Auto) 0.5 % Neutrophils # (Auto) 4.20 K/uL Lymphocytes # (Auto) 0.93 K/uL Monocytes # (Auto) 0.78 K/uL Eosinophils # (Auto) 0.29 K/uL Basophils # (Auto) 0.03 K/uL Micro Results: Item Value Date Time Blood Culture Received 06/26/16 1142 Blood Pending Blood Culture Received 06/26/16 1137 Blood Pending Recent Pertinent Medications Patient was receiving Doxycycline as an outpatient. Assessment & Plan VANCOMYCIN: * Loading dose: Vancomycin 1350 mg IV X 1 dose, then further dosing based on random levels (in the setting of acute on chronic renal failure) * Goal trough level estimate: between 15 - 20 mcg/mL for possible pulmonary source. * Random level has been ordered for: 06/27/16 with AM labs IMIPENEM: * Imipenem 250mg IV q6h, per pharmacy consult Pharmacy will continue to follow and will adjust dose/frequency as necessary. Thank you
--- NOTE | 2016-06-26 15:56 | DIAGNOSTIC IMAGING REPORT ---
TWO VIEW CHEST CLINICAL HISTORY: Pleural effusions. FINDINGS: AP and lateral chest radiographs are compared to study performed earlier the same day 06/26/2016 and 06/24/2016. Correlation is made with chest CT dated 10/16/2013. The AP view is degraded by patient rotation. A single lead cardiac pacemaker is unchanged in position and partially obscures the left upper chest. The patient is status post midline sternotomy and cardiac valve surgery. The heart is enlarged and there is atherosclerotic calcification of the thoracic aorta. There is mild pulmonary vascular congestion. Nonspecific chronic interstitial thickening is unchanged. There is a small to moderate right pleural effusion with right basilar airspace consolidation. Linear atelectasis is seen at the left lung base. The left lung otherwise appears clear. There is no pneumothorax. The skeletal structures are osteopenic. Degenerative change is seen throughout the thoracic spine. IMPRESSION: 1. Cardiomegaly and cardiac pacemaker. Mild pulmonary vascular congestion persists. 2. Small to moderate right pleural effusion with right basilar consolidation. This has not significantly changed from earlier today. Electronically signed by: Ventura Kaplan M.D. 06/26/2016 3:54 PM Dictated Date/Time: 06/26/2016 3:52 PM
[2016-06-26] MEDS: INSULIN ASPART 100 UNITS/ML 3 ML PEN SC SCH ×2 (16:00→20:38)
[2016-06-26 16:27] LABS: INFLUENZA A PCR Neg for Influ A (NEG); INFLUENZA B PCR Neg for Influ B (NEG)
[2016-06-26] MEDS ORDERED: VANCOMYCIN INJ 1,350 MG in SODIUM CHLORIDE 0.9% 250ML 250 ML IV ONE (17:00)
[2016-06-26] MEDS: IMIPENEM-CILASTATIN 200 MG in DEXTROSE 5% 100ML 100 ML IV SCH (17:21)
[2016-06-26] MEDS: PrednisoLONE ACET 1% OP SUSP 5 ML BTL OPL SCH ×2 (17:22→20:41)
[2016-06-26] MEDS: LACTOBACILLUS ACIDOPHILUS (FLORANEX) TAB PO SCH (17:23)
[2016-06-26] MEDS: GEMFIBROZIL 600 MG TAB PO SCH (20:40)
[2016-06-26] MEDS: MONTELUKAST SOD 10 MG TAB PO SCH (20:41)
[2016-06-26] MEDS: INSULIN GLARGINE SOLOSTAR 100 UNITS/ML 3 ML PEN SC SCH (20:45)
[2016-06-26] MEDS ORDERED: KETOROLAC 0.5% OP SOLN PER DROP CHARGE OPL SCH (21:00)
[2016-06-26] MEDS: KETOROLAC 0.5% OP SOLN 3 ML BTL OPL SCH (21:59)
[2016-06-26] MEDS: DIAZEPAM 5MG TAB PO SCH (21:59)
[2016-06-26] MEDS: EZETIMIBE 10MG TAB PO SCH (22:00)
[2016-06-27] VITALS (12 sets, daily range): BP systolic 103–167; BP diastolic 50–80; PULSE 62–79; TEMP 36.3–36.9; O2SAT 90–99
[2016-06-27] MEDS: IMIPENEM-CILASTATIN 200 MG in DEXTROSE 5% 100ML 100 ML IV SCH ×5 (00:19→23:26)
[2016-06-27] MEDS: LEVALBUTEROL 1.25MG/0.5ML NEB INH SCH ×4 (02:12→19:29)
--- NOTE | 2016-06-27 02:53 | EMERGENCY ROOM VISIT NOTE ---
History First contact with patient: 11:18 Chief Complaint: SHORTNESS OF BREATH Stated Complaint: ACUTE SYSTOLIC CONGESTIVE HEART FAILURE Nursing Triage Summary: Pt presents with c/o pnx, chf. INR today was 4.7. [id number] reports pt is retaining fluid, sob and weak. Here approx 1 week ago for same sx. Followed up with Dr. Hdz on Fri and placed on Doxy. History of Present Illness The patient is a 76 year old female who presents to the Emergency Room via private vehicle accompanied by daughter with complaints of "shortness of breath ". The patient states that she was recently admitted here for trouble breathing , and also pneumonia. She states that she was here for roughly 6 days. She states that she was recently discharged, and seems to been worsening each day. She states that the shortness of breath has worsened, and that she recently saw her primary care provider who started her on doxycycline. She states this does not seem to be helping, and she is now developing a pain across the back and increased shortness of breath, which is particularly worse over the past 3 days. There is associated fevers, chills, nausea, dry mouth, dull ache in the bilateral legs. She notes that she was to see the Coumadin clinic today and her INR was elevated at 4.7 and they sent her directly here. She states that she's been taking doxycycline since Friday. She denies any vomiting, chest pain , history of blood clots. Review of Systems A complete 10-point Review of Systems was discussed with the patient, with pertinent positives and negatives listed in the History of Present Illness. All remaining Review of Systems questions can be considered negative unless otherwise specified. Past Medical/Surgical History Medical Problems: (1) Acute pancreatitis (2) Acute respiratory failure with hypoxia (3) Acute systolic congestive heart failure (4) Acute urinary tract infection (5) Asthma (6) Atrial fibrillation (7) Cardiac pacemaker procedure (8) Cholecystectomy (9) Chronic obstructive lung disease (10) Deep venous thrombosis (11) Diabetes mellitus (12) History of - peptic ulcer (13) Hysterectomy (14) PERSONAL HX OF TIA,& CEREBRAL INFARCTION W/OUT RES DEFICITS (15) Pneumonia (16) Replacement of mitral valve (17) Sepsis Surgical Problems: (1) History of cholecystectomy Family History Diabetes mellitus Heart disease Hypertension Social History Smoking Status: Never Smoker Smokeless Tobacco Use: Yes Alcohol Use: none Drug Use: none Marital Status: Housing Status: lives with family Occupation Status: retired Current/Historical Medications Scheduled Azithromycin (Azithromycin), 250 MG PO DAILY Cefdinir (Omnicef), 300 MG PO Q12H Cholecalciferol (Vitamin D3), 1,000 INTER.UNIT PO DAILY Cyanocobalamin (Vitamin B-12), 1,000 MCG PO QAM Diazepam (Valium), 5 MG PO HS Digoxin (Digoxin), 0.125 MG PO QAM Ezetimibe (Ezetimibe), 10 MG PO HS Fexofenadine Hcl (Vickie), 180 MG PO QAM Furosemide (Furosemide), 40 MG PO QAM Gemfibrozil (Gemfibrozil), 600 MG PO BID Hydralazine Hcl (Apresoline), 25 MG PO BID Insulin Glargine (Lantus Solostar), 15 UNIT SC BID Isosorbide Mononitrate (Isosorbide Mononitrate ER), 30 MG PO QAM Ketorolac Tromethamine (Ophth) (Ketorolac Tromethamine), 1 DROP OPL [facility] Lactobacillus Acidophilus (Floranex), 4 TAB PO TIDM Levothyroxine Sodium (Synthroid), 175 MCG PO DAILY Metoprolol Succinate (Metoprolol Succinate ER), 100 MG PO QAM Misc Natural Products (Osteo Bi-Flex Joint Shiel), 1 TAB PO DAILY Montelukast Sod (Montelukast Sodium), 10 MG PO QAM Polymyxin/Trimethoprim Oph (Polytrim Oph), 1 DROP OPL QID Prednisolone Acetate (Prednisolone Acetate), 1 DROP OPL QID Pyridoxine (Vitamin B6), 100 MG PO QAM Spironolactone (Aldactone), 50 MG PO DAILY Trospium Chloride (Trospium Chloride), 20 MG PO DAILY Warfarin Sod (Jantoven), 3 MG PO WK Warfarin Sodium (Coumadin), 4 MG PO [id number] Scheduled PRN Diclofenac Sodium (Topical) (Diclofenac Sodium), 1 APPLN TOP QID PRN for Pain- Affected Joints Insulin Aspart (Novolog), 1 DOSE SC ACHS PRN for As Needed Miscellaneous Medications Doxycycline (Monohydrate) (Doxycycline) Allergies Coded Allergies: Penicillins (Verified Allergy, Severe, anaphylaxis 30yrs ago, also broke out with sores, 02/18/16) NOTE: Timentin 05/2003 tolerated without problem Diltiazem (Verified Allergy, Unknown, unknown, 02/18/16) Levofloxacin (Verified Allergy, Unknown, UNKNOWN, 02/18/16) Moxifloxacin (Verified Allergy, Unknown, UNKNOWN, 02/18/16) Aspirin (Verified Adverse Reaction, Intermediate, increased bleeding (on warfarin), 02/18/16) Atorvastatin (Verified Adverse Reaction, Unknown, & Crestor = muscle aches /pains, 02/18/16) NSAIDs (Verified Adverse Reaction, Unknown, AVOID PER DR. HICKS - [id number] , 02/18/16) Nortriptyline (Verified Adverse Reaction, Unknown, choking on food, ) Quinidine (Verified Adverse Reaction, Unknown, flu-like symptoms, 02/18/16) Sulfamethoxazole w/Trimethoprim (Verified Adverse Reaction, Unknown, CONFUSION, 02/18/16) Physical Exam Vital Signs Date Time Temp Pulse Resp B/P Pulse Ox O2 Delivery O2 Flow Rate FiO2 06/26/16 13:05 97 Room Air 06/26/16 13:00 70 17 118/61 97 Room Air 06/26/16 11:36 95 Room Air 06/26/16 11:33 77 06/26/16 11:25 Room Air 06/26/16 10:51 36.6 68 16 145/65 96 Room Air Pain Rating (0-10): 0 Physical Exam VITAL SIGNS - Vital signs and nursing notes were reviewed. Patient is currently afebrile, blood pressure 145/65, non-tachycardic and is saturating well on room air 96%. GENERAL -76-year-old female appearing her stated age who is in no acute distress. The patient is ill-appearing. Communicates well with provider and answers questions appropriately. SKIN - Without rashes. No petechial rashes. HEAD - NC/AT. EYES - Sclera anicteric. Palpebral conjunctiva pink and moist with no injection noted. EARS - No deformities of external structures noted on gross examination bilaterally. NOSE - Midline and without cyanosis. No epistaxis or purulent drainage noted. MOUTH/OROPHARYNX - Without perioral cyanosis. NECK - No JVD. LUNGS - Chest wall symmetric without accessory muscle use, intercostals retractions, or central cyanosis. There is decreased breath sounds bilaterally. CARDIAC - RRR with S1/S2. No murmur, rubs, or gallops appreciated. ABDOMEN - Abdominal contour without pulsations or visible masses. BS normoactive all four quadrants. No tenderness, palpable masses, hepatosplenomegaly, or ascites noted. EXTREMITIES - No clubbing or peripheral cyanosis. There is pretibial edema bilaterally. No appreciable calf tenderness. Medical Decision & Procedures ER Provider Diagnostic Interpretation: SINGLE VIEW CHEST CLINICAL HISTORY: Dyspnea. FINDINGS: An AP, portable, upright chest radiograph is compared to study dated 06/24/2016. Correlation is made with chest CT dated 10/16/2013. The examination is degraded by portable technique and patient rotation. A single lead cardiac pacemaker is unchanged in position and partially obscures the left upper chest. The patient is status post midline sternotomy and cardiac valve surgery. The heart is enlarged and there is atherosclerotic calcification of the thoracic aorta. There is mild pulmonary vascular congestion. Nonspecific interstitial thickening is unchanged. There is a small to moderate right pleural effusion with right basilar airspace consolidation. The left lung is grossly clear noting linear atelectasis at the left lung base. There is no pneumothorax. The skeletal structures are osteopenic. Degenerative change is seen throughout the thoracic spine. IMPRESSION: 1. Cardiomegaly and cardiac pacemaker. There is mild pulmonary vascular congestion. 2. Small to moderate right pleural effusion with right basilar consolidation. This could represent atelectasis and/or pneumonia, and appears to have modestly increased from 06/24/2016. Electronically signed by: Ventura Kaplan M.D. 06/26/2016 12:06 PM Dictated Date/Time: 06/26/2016 12:03 PM Laboratory Results 06/26/16 11:37 Red Blood Count 3.57, Mean Corpuscular Volume 82.6, Mean Corpuscular Hemoglobin 25.8, Mean Corpuscular Hemoglobin Concent 31.2, Mean Platelet Volume 9.6, Neutrophils (%) (Auto) 67.2, Lymphocytes (%) (Auto) 14.9, Monocytes (%) (Auto) 12.5, Eosinophils (%) (Auto) 4.6, Basophils (%) (Auto) 0.5, Neutrophils # (Auto ) 4.20, Lymphocytes # (Auto) 0.93, Monocytes # (Auto) 0.78, Eosinophils # (Auto ) 0.29, Basophils # (Auto) 0.03 06/26/16 11:37 Test 06/26/16 11:37 06/26/16 11:45 06/26/16 11:49 06/26/16 11:51 White Blood Count 6.25 K/uL (4.8-10.8) Red Blood Count 3.57 M/uL (4.2-5.4) Hemoglobin 9.2 g/dL (12.0-16.0) Hematocrit 29.5 % (37-47) Mean Corpuscular Volume 82.6 fL (80-100) Mean Corpuscular Hemoglobin 25.8 pg (25-34) Mean Corpuscular Hemoglobin Concent 31.2 g/dl (32-36) Platelet Count 285 K/uL (130-400) Mean Platelet Volume 9.6 fL (7.4-10.4) Neutrophils (%) (Auto) 67.2 % Lymphocytes (%) (Auto) 14.9 % Monocytes (%) (Auto) 12.5 % Eosinophils (%) (Auto) 4.6 % Basophils (%) (Auto) 0.5 % Neutrophils # (Auto) 4.20 K/uL (1.4-6.5) Lymphocytes # (Auto) 0.93 K/uL (1.2-3.4) Monocytes # (Auto) 0.78 K/uL (0.11-0.59) Eosinophils # (Auto) 0.29 K/uL (0-0.5) Basophils # (Auto) 0.03 K/uL (0-0.2) RDW Standard Deviation 52.8 fL (36.4-46.3) RDW Coefficient of Variation 17.4 % (11.5-14.5) Immature Granulocyte % (Auto) 0.3 % Immature Granulocyte # (Auto) 0.02 K/uL (0.00-0.02) Prothrombin Time 51.9 SECONDS (9.0-12.0) Prothromb Time International Ratio 4.6 (0.9-1.1) Activated Partial Thromboplast Time 38.8 SECONDS (21.0-31.0) Partial Thromboplastin Ratio 1.5 Est Creatinine Clear Calc Drug Dose 24.3 ml/min Estimated GFR () 27.8 Estimated GFR (Non- 24.0 BUN/Creatinine Ratio 33.2 (10-20) Calcium Level 9.1 mg/dl (8.5-10.1) Magnesium Level 2.7 mg/dl (1.8-2.4) Total Bilirubin 0.5 mg/dl (0.2-1) Aspartate Amino Transf (AST/SGOT) 43 U/L (15-37) Alanine Aminotransferase (ALT/SGPT) 51 U/L (12-78) Alkaline Phosphatase 122 U/L (45-117) Total Creatine Kinase 87 U/L (26-192) Creatine Kinase MB 2.3 ng/ml (0.5-3.6) Creatine Kinase MB Ratio 2.6 (0-3.0) Total Protein 7.7 gm/dl (6.4-8.2) Albumin 3.8 gm/dl (3.4-5.0) Globulin 3.9 gm/dl (2.5-4.0) Albumin/Globulin Ratio 1.0 (0.9-2) Thyroid Stimulating Hormone (TSH) 2.070 uIu/ml (0.300-4.500) Influenza Type A Antigen Neg for Influ A (NEG) Influenza Type B Antigen Neg for Influ B (NEG) Bedside Lactic Acid Venous 0.82 mmol/L (0.90-1.70) Bedside Troponin I 0.000 ng/ml (0-0.045) KW-Jqi-T-Type Natriuretic Peptide 932 pg/ml (0-900) Test 06/26/16 11:54 06/26/16 11:55 Bedside Hemoglobin 10.2 g/dl (12.0-16.0) Bedside Hematocrit 30 % (37-47) Bedside Sodium 138 mEq/L (135-144) Bedside Potassium 4.5 mEq/L (3.3-5.0) Bedside Chloride 105 mEq/L (101-112) Bedside Total CO2 19 mEq/l (24-31) Anion Gap 20.0 mmol/L (16-25) Bedside Blood Urea Nitrogen 68 mg/dl (7-18) Bedside Creatinine 1.9 mg/dl (0.6-1.3) Bedside Glucose (other) 98 mg/dl (70-99) Bedside Ionized Calcium (Fadi) 1.19 mmol/l (1.12-1.32) Urine Color YELLOW Urine Appearance CLEAR (CLEAR) Urine pH 5.0 (4.5-7.5) Urine Specific [place] 1.012 (1.000-1.030) Urine Protein NEG (NEG) Urine Glucose (UA) NEG (NEG) Urine Ketones NEG (NEG) Urine Occult Blood NEG (NEG) Urine Nitrite NEG (NEG) Urine Bilirubin NEG (NEG) Urine Urobilinogen NEG (NEG) Urine Leukocyte Esterase SMALL (NEG) Urine WBC (Auto) 1-5 /hpf (0-5) Urine RBC (Auto) 0-4 /hpf (0-4) Urine Hyaline Casts (Auto) 0 /lpf (0-5) Urine Epithelial Cells (Auto) 20-30 /lpf (0-5) Urine Bacteria (Auto) NEG (NEG) Date/Time Source Procedure Growth Status 06/26/16 00:00 Nasal MRSA DNA Surveillance Screen - Final Specimen Negative for MRSA by DNA Probe Complete Medications Administered Medications (Trade) Dose Ordered Sig/Albin Route Start Time Stop Time Status Last Admin Dose Admin Levalbuterol (Xopenex 1.25MG/ 0.5ML Neb) 1.25 mg NOW STAT INH 06/26/16 13:49 06/26/16 13:55 DC 06/26/16 13:49 1.25 MG Medical Decision Patient was seen and evaluated as above. After obtaining a thorough history and physical examination IV access was initiated and the above workup was performed. Patient appears to be experiencing dyspnea, and was recently admitted for potential pneumonia. She has been taking doxycycline. Clinically she appears ill, and has trouble breathing. Her oxygen saturations do appear to be within normal range. CBC does reveal anemia with stable hemoglobin of 9.2 , INR is supratherapeutic at 4.6, chloride is high at 108, BUN is high at 68, creatinine is 2.0 point care lactic is low, magnesium is high at 2.7, AST high at 43, alkaline phosphatase high at 122. Point care troponin is 0, BNP is elevated at 932, TSH is within normal limits. Urine reveals small leukocyte esterase, and epithelial cells. Flu swab is negative. Patient's chest x-ray shows small to moderate right pleural effusion with right basilar consolidation. This could represent atelectasis and/or pneumonia, and appears to have modestly increased from 06/24/2016. For this reason I do suspect the patient admission is warranted, and although this case would normally give fluids and IV antibiotics started one discussed the case with the admission team prior to doing so as they are very minor with her case. The case was discussed with my attending, and subsequently the admission staff. Patient will be admitted for further evaluation and management. Please refer to further documentation regarding her stay. Patient was not hypoxic throughout her stay here in the emergency department. EKG reveals atrial fibrillation with occasional ventricular paced complexes, rate of 71 bpm. This EKG was compared to EKG of 06/14/2016, and an electronic ventricular pacemaker is not evident but no significant change appears to be identified. In the evaluation treatment this patient following differential diagnoses were entertained: [place], PE, pneumonia, sepsis, among others. Impression Primary Impression: Acute systolic congestive heart failure Additional Impression: Anemia Departure Information Dispostion Admitted as an inpatient Condition FAIR Referrals Phoenix Klein III, CRNP (PCP) Forms HOME CARE DOCUMENTATION FORM, IMPORTANT VISIT INFORMATION Patient Instructions My [facility] Problem Qualifiers
[2016-06-27] MEDS: LEVOTHYROXINE 175 MCG TAB PO SCH (05:46)
[2016-06-27 06:45] LABS: HEMATOCRIT 26.5 % (37-47); MEAN CELL VOLUME 83.9 fL (80-100); MEAN CORPUSCULAR HEMOGLOBIN 26.6 pg (25-34); MEAN CORPUSCULAR HGB CONC 31.7 g/dl (32-36); MEAN PLATELET VOLUME 9.6 fL (7.4-10.4); PLATELET COUNT 250 K/uL (130-400); RED BLOOD COUNT 3.16 M/uL (4.2-5.4); WHITE BLOOD COUNT 5.77 K/uL (4.8-10.8)
[2016-06-27] MEDS: INSULIN ASPART 100 UNITS/ML 3 ML PEN SC SCH ×4 (07:00→21:00)
[2016-06-27 07:06] LABS: PROTHROMBIN TIME (PATIENT) 49.7 SECONDS (9.0-12.0)
[2016-06-27 07:08] LABS: INR 4.4 (0.9-1.1)
[2016-06-27] MEDS: IPRATROPIUM BROMIDE NEB SOLN 0.02% 2.5 ML VIAL INH SCH ×3 (07:11→19:29)
[2016-06-27] MEDS: PrednisoLONE ACET 1% OP SUSP 5 ML BTL OPL SCH ×4 (08:22→21:17)
[2016-06-27] MEDS: KETOROLAC 0.5% OP SOLN 3 ML BTL OPL SCH ×2 (08:23→21:17)
[2016-06-27] MEDS: DIGOXIN 0.125 MG TAB PO SCH (08:25)
[2016-06-27] MEDS: CYANOCOBALAMIN 500 MCG TAB (VIT B-12) PO SCH (08:25)
[2016-06-27] MEDS: LACTOBACILLUS ACIDOPHILUS (FLORANEX) TAB PO SCH ×3 (08:25→17:29)
[2016-06-27] MEDS: GEMFIBROZIL 600 MG TAB PO SCH ×2 (08:26→21:17)
[2016-06-27] MEDS: FEXOFENADINE HCL 180 MG TAB PO SCH (08:26)
[2016-06-27] MEDS: ISOSORBIDE MONONITRATE 30 MG TABCR PO SCH (08:26)
[2016-06-27] MEDS: CHOLECALCIFEROL 1000 INTER.UNIT TAB PO SCH (08:26)
[2016-06-27] MEDS: PYRIDOXINE HCL 50 MG TAB PO SCH (08:27)
[2016-06-27] MEDS: METOPROLOL SUCC 50MG EXT REL TAB PO SCH (08:27)
[2016-06-27] MEDS: INSULIN GLARGINE SOLOSTAR 100 UNITS/ML 3 ML PEN SC SCH ×2 (08:30→21:23)
[2016-06-27 08:31] LABS: BUN/CREATININE RATIO 35.7 (10-20); CREATININE 1.9 mg/dl (0.60-1.20); POTASSIUM 3.7 mmol/L (3.5-5.1)
[2016-06-27] MEDS ORDERED: VANCOMYCIN INJ 1,200 MG in SODIUM CHLORIDE 0.9% 250ML 250 ML IV ONE (09:00)
--- NOTE | 2016-06-27 09:20 | Pharmacy Progress Note ---
Pharmacy Antibiotic Prog Note Date of Service Jun 27, 2016. Subjective The patient is currently receiving the following antimicrobial agents per Pharmacy consult: -Vancomycin IV based on random levels -Primaxin 200 mg IV every 6 hours Objective Height (Feet): 5 Height (Inches): 3.00 Weight (Kilograms): 75.600 Levels: Item Value Date Time Random Vancomycin Level 14.1 mcg/ml 06/27/16 0600 Lab Results (24hrs): Laboratory Tests Test 06/26/16 11:37 06/27/16 06:00 BUN/Creatinine Ratio 33.2 35.7 Blood Urea Nitrogen 66 mg/dl 68 mg/dl Creatinine 2.00 mg/dl 1.90 mg/dl White Blood Count 6.25 K/uL 5.77 K/uL Red Blood Count 3.57 M/uL Hemoglobin 9.2 g/dL Hematocrit 29.5 % Mean Corpuscular Volume 82.6 fL Mean Corpuscular Hemoglobin 25.8 pg Mean Corpuscular Hemoglobin Concent 31.2 g/dl Platelet Count 285 K/uL Mean Platelet Volume 9.6 fL Neutrophils (%) (Auto) 67.2 % Lymphocytes (%) (Auto) 14.9 % Monocytes (%) (Auto) 12.5 % Eosinophils (%) (Auto) 4.6 % Basophils (%) (Auto) 0.5 % Neutrophils # (Auto) 4.20 K/uL Lymphocytes # (Auto) 0.93 K/uL Monocytes # (Auto) 0.78 K/uL Eosinophils # (Auto) 0.29 K/uL Basophils # (Auto) 0.03 K/uL Micro Results: Item Value Date Time Blood Culture Received 06/26/16 1142 Blood Pending Blood Culture Received 06/26/16 1137 Blood Pending MRSA DNA Surveillance Screen - Final Complete 06/26/16 0000 Nasal Specimen Negative for MRSA by DNA Probe Assessment & Plan Assessment 76 yo female with h/o of CKD stage 4 receiving Vancomycin and Primaxin IV for treatment of possible pneumonia Risk factors for resistant organisms: * Hospitalization for 48 hours or more within the past 90 days; admitted to [facility] 06/12-06/17 and treated for CAP * Antimicrobial use within the last 90 days; Vanc IV + Azactam x 48 hours, then transitioned to Cefdinir + Zithromax PO, which was continued on discharge. Patient was on doxycycline PO at the time of current admission. Plan Vancomycin IV * Random level of 14.1 mcg/mL this am is near therapeutic. * Will re-dose patient now with 1200 mg IV x 1 (~15 mg/kg) * Goal trough level estimate for pneumonia: between 15 - 20 mcg/mL. * Scr has improved from 2.1 to 1.9 mg/dL since time of admission. The patient's Scr ranged from 1.8-2.0 mg/dL on previous admission this month and was as low as 1.4 mg/dL in February of 2016. If Scr remains stable tomorrow, may considering scheduling an ongoing maintenance dose. * Random level has been ordered for: (~24 hours after today's dose ) * MRSA nasal swab is negative - consider discontinuation of Vancomycin if being used solely for coverage of MRSA pneumonia Primaxin * Continue 200 mg IV every 6 hours for CrCl 15 - 29 ml/min Pharmacy will continue to follow and will adjust dose/frequency as necessary. Thank you
--- NOTE | 2016-06-27 10:23 | Medical Consult ---
Consultation Date of Consultation: Jun 27, 2016. Attending Physician: Niles Estrada M.D. Reason for Consultation: Primaxin ordered History of Present Illness 76-year-old female with complicated medical history including diabetes mellitus, mitral valve replacement, atrial fibrillation, status post pacemaker, stage 4 chronic kidney disease, who was recently hospitalized in May for pneumonia for 6 days. Was discharged home but developed increasing shortness of breath, was started on doxycycline, but symptoms worsened and patient was admitted to the hospital. She has been started empirically on IV vancomycin and imipenem. Cultures are pending. Chest x-ray, read by me, shows right lower lobe consolidation and probable effusion. Still very short of breath and uncomfortable. Currently afebrile. Past Medical/Surgical History Medical Problems: (1) Anemia Status: Acute (2) Cat bite of right lower leg with infection Status: Acute (3) Cellulitis Status: Acute (4) Dehydration Status: Acute (5) Fever Status: Acute (6) Fracture of right distal radius Status: Acute (7) PNA (pneumonia) Status: Acute (8) Rapid atrial fibrillation Status: Acute (9) Respiratory distress Status: Acute (10) Right arm fracture Status: Acute Medical Problems: (1) Acute pancreatitis (2) Acute respiratory failure with hypoxia (3) Acute systolic congestive heart failure (4) Acute urinary tract infection (5) Asthma (6) Atrial fibrillation (7) Cardiac pacemaker procedure (8) Cholecystectomy (9) Chronic obstructive lung disease (10) Deep venous thrombosis (11) Diabetes mellitus (12) History of - peptic ulcer (13) Hysterectomy (14) PERSONAL HX OF TIA,& CEREBRAL INFARCTION W/OUT RES DEFICITS (15) Pneumonia (16) Replacement of mitral valve (17) Sepsis Surgical Problems: (1) History of cholecystectomy Family History Diabetes mellitus Heart disease Hypertension Social History Smoking Status: Never Smoker Smokeless Tobacco Use: Yes Alcohol Use: none Drug Use: none Marital Status: Housing Status: lives with family Occupation Status: retired Allergies Coded Allergies: Penicillins (Verified Allergy, Severe, anaphylaxis 30yrs ago, also broke out with sores, 02/18/16) NOTE: Timentin 05/2003 tolerated without problem Diltiazem (Verified Allergy, Unknown, unknown, 02/18/16) Levofloxacin (Verified Allergy, Unknown, UNKNOWN, 02/18/16) Moxifloxacin (Verified Allergy, Unknown, UNKNOWN, 02/18/16) Aspirin (Verified Adverse Reaction, Intermediate, increased bleeding (on warfarin), 02/18/16) Atorvastatin (Verified Adverse Reaction, Unknown, & Crestor = muscle aches /pains, 02/18/16) NSAIDs (Verified Adverse Reaction, Unknown, AVOID PER DR. HICKS - [id number] , 02/18/16) Nortriptyline (Verified Adverse Reaction, Unknown, choking on food, ) Quinidine (Verified Adverse Reaction, Unknown, flu-like symptoms, 02/18/16) Sulfamethoxazole w/Trimethoprim (Verified Adverse Reaction, Unknown, CONFUSION, 02/18/16) Current Inpatient Medications Current Inpatient Medications Medications (Trade) Dose Ordered Sig/Albin Route Start Time Stop Time Status Last Admin Dose Admin Acetaminophen (Tylenol Tab) 650 mg Q4H PRN PO 06/26/16 14:00 07/26/16 13:59 06/27/16 03:52 650 MG Al Hydrox/Mg Hydrox/Simethicone (Maalox Max Susp) 15 ml Q4H PRN PO 06/26/16 14:00 07/26/16 13:59 Magnesium Hydroxide (Milk Of Magnesia Susp) 30 ml Q12H PRN PO 06/26/16 14:00 07/26/16 13:59 Ondansetron HCl (Zofran Inj) 4 mg Q6H PRN IV 06/26/16 14:00 07/26/16 13:59 Polyethylene (Miralax Powder Packet) 17 gm DAILY PRN PO 06/26/16 14:00 07/26/16 13:59 Cyanocobalamin (Vitamin B-12 Tab) 1,000 mcg QAM PO 06/27/16 09:00 07/27/16 08:59 06/27/16 08:25 1,000 MCG Diazepam (Valium Tab) 5 mg HS PO 06/26/16 21:00 07/26/16 20:59 06/26/16 21:59 5 MG Diclofenac Sodium (Voltaren 1% Top Gel) 1 appln QID PRN EXT 06/26/16 14:00 07/26/16 13:59 Digoxin (Lanoxin Tab) 0.125 mg QAM PO 06/27/16 09:00 07/27/16 08:59 06/27/16 08:25 0.125 MG EZETIMIBE (Zetia Tab) 10 mg HS PO 06/26/16 21:00 07/26/16 20:59 06/26/16 22:00 10 MG Fexofenadine HCl (Vickie Tab) 180 mg QAM PO 06/27/16 09:00 07/27/16 08:59 06/27/16 08:26 180 MG Gemfibrozil (Lopid Tab) 600 mg BID PO 06/26/16 21:00 07/26/16 20:59 06/27/16 08:26 600 MG Hydralazine HCl (Apresoline Tab) 25 mg BID PO 06/26/16 21:00 07/26/16 20:59 06/27/16 09:52 25 MG Insulin Glargine (Lantus Solostar Pen) 15 unit BID SC 06/26/16 21:00 07/26/16 20:59 06/27/16 08:30 15 UNIT Isosorbide Mononitrate (Imdur Ext Rel Tab) 30 mg QAM PO 06/27/16 09:00 07/27/16 08:59 06/27/16 08:26 30 MG Lactobacillus Acidophilus (Floranex Tab) 4 tab TIDM PO 06/26/16 16:45 07/26/16 17:59 06/27/16 08:25 4 TAB Levothyroxine Sodium (Synthroid Tab) 175 mcg DAILYBB PO 06/27/16 06:00 07/27/16 06:59 06/27/16 05:46 175 MCG Metoprolol Succinate (Toprol Xl Tab) 100 mg QAM PO 06/27/16 09:00 07/27/16 08:59 06/27/16 08:27 100 MG Montelukast Sodium (Singulair Tab) 10 mg HS PO 06/26/16 21:00 07/26/16 20:59 06/26/16 20:41 10 MG Prednisolone Acetate (Pred Forte 1% Oph Susp) 75 drops QID OPL 06/26/16 17:00 07/26/16 16:59 06/27/16 08:22 75 DROPS Pyridoxine HCl (Vitamin B-6 Tab) 100 mg QAM PO 06/27/16 09:00 07/27/16 08:59 06/27/16 08:27 100 MG Cholecalciferol 1000 inter.unit 1,000 inter.unit DAILY PO 06/27/16 09:00 07/27/16 08:59 06/27/16 08:26 1,000 INTER.UNIT Imipenem/ Cilastatin Sodium/ Dextrose (Primaxin Iv/D5 100ml) 108 ml @ 100 mls/hr Q6H IV 06/26/16 18:00 07/03/16 17:59 06/27/16 05:46 100 MLS/HR Ipratropium Kirk (Atrovent 0.02% 0.5MG/2.5ML Neb) 0.5 mg Q8R INH 06/26/16 16:00 07/26/16 15:59 06/27/16 07:11 0.5 MG Levalbuterol (Xopenex 1.25MG/ 0.5ML Neb) 1.25 mg Q6R INH 06/26/16 15:00 07/26/16 14:59 06/27/16 07:11 1.25 MG Levalbuterol (Xopenex 1.25MG/ 3ML Neb) 1.25 mg Q2H PRN INH 06/26/16 14:30 07/26/16 14:29 Insulin Aspart (novoLOG ASPART) SLIDING SCALE G... ACHS SC 06/26/16 16:00 07/26/16 15:59 Glucose (Glucose 40% Gel) 15-30 GRAMS 15 GRAMS... UD PRN PO 06/26/16 14:45 07/26/16 14:44 Glucose (Glucose Chew Tab) 4-8 Tablets 4 Tabl... UD PRN PO 06/26/16 14:45 07/26/16 14:44 Dextrose (Dextrose 50% 50ML Syringe) 25-50ML OF 50% DW IV FOR... UD PRN IV 06/26/16 14:45 07/26/16 14:44 Glucagon (Glucagon Inj) 1 mg UD PRN SQ 06/26/16 14:45 07/26/16 14:44 Vancomycin HCl (Consult) 1 ea UD PRN N/A 06/26/16 15:45 07/26/16 15:44 Imipenem/ Cilastatin Sodium (Consult) 1 ea UD PRN N/A 06/26/16 15:45 07/26/16 15:44 Ketorolac Tromethamine 1 drops 1 drops AMHS OPL 06/26/16 21:00 07/26/16 20:59 06/27/16 08:23 1 DROPS Vancomycin HCl/ Sodium Chloride (Vancomycin Inj/ Nss 250ml) 274 ml @ 125 mls/hr 0900 ONCE IV 06/27/16 09:00 06/27/16 11:11 06/27/16 09:52 125 MLS/HR Review of Systems Constitutional: + fatigue, + weakness, No fever Eyes: No problem reported ENT: No problem reported Respiratory: + cough, + dyspnea on exertion, + shortness of breath, + sputum, No hemoptysis Cardiovascular: No problem reported Abdomen: + nausea Musculoskeletal: No problem reported Genitourinary - Female: No problem reported Neurologic: No problem reported Psychiatric: No problem reported Endocrine: No problem reported Hematologic / Lymphatic: No problem reported Integumentary: No problem reported Allergic / Immunologic: No problem reported Physical Exam Date Time Temp Pulse Resp B/P Pulse Ox O2 Delivery O2 Flow Rate FiO2 06/27/16 08:25 70 06/27/16 07:52 36.4 75 20 154/69 96 Room Air 06/27/16 07:12 62 16 95 Room Air 06/27/16 04:00 Room Air 06/27/16 03:44 36.6 66 20 103/50 93 Room Air 06/27/16 02:12 68 16 95 Room Air 06/26/16 23:59 Room Air 06/26/16 23:41 36.9 63 20 127/64 92 Room Air 06/26/16 21:47 36.9 69 127/53 06/26/16 20:00 Room Air 06/26/16 20:00 36.8 61 20 140/69 97 Room Air 06/26/16 19:23 68 16 94 Room Air 06/26/16 16:21 36.5 60 24 136/68 94 Room Air 06/26/16 16:10 62 20 126/64 96 06/26/16 15:41 61 16 98 Room Air 06/26/16 14:56 63 17 137/68 97 06/26/16 13:05 97 Room Air 06/26/16 13:00 70 17 118/61 97 Room Air 06/26/16 11:36 95 Room Air 06/26/16 11:33 77 06/26/16 11:25 Room Air 06/26/16 10:51 36.6 68 16 145/65 96 Room Air General Appearance: WD/WN, + mild distress Head: normocephalic, atraumatic Eyes: normal inspection, EOMI, sclerae normal ENT: normal ENT inspection, pharynx normal Neck: supple, no adenopathy, thyroid normal, trachea midline Respiratory/Chest: chest non-tender, + decreased breath sounds (right base), + rales (right basilar) Cardiovascular: regular rate, rhythm, no gallop, no murmur Abdomen/GI: normal bowel sounds, non tender, soft, no organomegaly Back: normal inspection, no CVA tenderness Extremities/Musculoskelatal: no calf tenderness, non-tender Neurologic/Psych: alert, oriented x 3 Skin: normal color, warm/dry, no rash Lymphatic: no adenopathy Laboratory Results Date/Time Source Procedure Growth Status 06/26/16 11:42 Blood Blood Culture Pending Received 06/26/16 11:37 Blood Blood Culture Pending Received Last 24 Hours Test 06/26/16 11:37 06/26/16 11:45 06/26/16 11:49 06/26/16 11:51 White Blood Count 6.25 K/uL Red Blood Count 3.57 M/uL Hemoglobin 9.2 g/dL Hematocrit 29.5 % Mean Corpuscular Volume 82.6 fL Mean Corpuscular Hemoglobin 25.8 pg Mean Corpuscular Hemoglobin Concent 31.2 g/dl Platelet Count 285 K/uL Mean Platelet Volume 9.6 fL Neutrophils (%) (Auto) 67.2 % Lymphocytes (%) (Auto) 14.9 % Monocytes (%) (Auto) 12.5 % Eosinophils (%) (Auto) 4.6 % Basophils (%) (Auto) 0.5 % Neutrophils # (Auto) 4.20 K/uL Lymphocytes # (Auto) 0.93 K/uL Monocytes # (Auto) 0.78 K/uL Eosinophils # (Auto) 0.29 K/uL Basophils # (Auto) 0.03 K/uL RDW Standard Deviation 52.8 fL RDW Coefficient of Variation 17.4 % Immature Granulocyte % (Auto) 0.3 % Immature Granulocyte # (Auto) 0.02 K/uL Prothrombin Time 51.9 SECONDS Prothromb Time International Ratio 4.6 Activated Partial Thromboplast Time 38.8 SECONDS Partial Thromboplastin Ratio 1.5 Sodium Level 139 mmol/L Potassium Level 4.6 mmol/L Chloride Level 108 mmol/L Carbon Dioxide Level 23 mmol/L Anion Gap 8.0 mmol/L Blood Urea Nitrogen 66 mg/dl Creatinine 2.00 mg/dl Est Creatinine Clear Calc Drug Dose 24.3 ml/min Estimated GFR () 27.8 Estimated GFR (Non- 24.0 BUN/Creatinine Ratio 33.2 Random Glucose 97 mg/dl Calcium Level 9.1 mg/dl Magnesium Level 2.7 mg/dl Total Bilirubin 0.5 mg/dl Aspartate Amino Transf (AST/SGOT) 43 U/L Alanine Aminotransferase (ALT/SGPT) 51 U/L Alkaline Phosphatase 122 U/L Total Creatine Kinase 87 U/L Creatine Kinase MB 2.3 ng/ml Creatine Kinase MB Ratio 2.6 Total Protein 7.7 gm/dl Albumin 3.8 gm/dl Globulin 3.9 gm/dl Albumin/Globulin Ratio 1.0 Thyroid Stimulating Hormone (TSH) 2.070 uIu/ml Influenza Type A Antigen Neg for Influ A Influenza Type B Antigen Neg for Influ B Bedside Lactic Acid Venous 0.82 mmol/L Bedside Troponin I 0.000 ng/ml TX-Hoo-U-Type Natriuretic Peptide 932 pg/ml Test 06/26/16 11:54 06/26/16 11:55 06/26/16 14:22 06/26/16 14:45 Bedside Hemoglobin 10.2 g/dl Bedside Hematocrit 30 % Bedside Sodium 138 mEq/L Bedside Potassium 4.5 mEq/L Bedside Chloride 105 mEq/L Bedside Total CO2 19 mEq/l Anion Gap 20.0 mmol/L Bedside Blood Urea Nitrogen 68 mg/dl Bedside Creatinine 1.9 mg/dl Bedside Glucose (other) 98 mg/dl Bedside Ionized Calcium (Fadi) 1.19 mmol/l Urine Color YELLOW Urine Appearance CLEAR Urine pH 5.0 Urine Specific Pinch 1.012 Urine Protein NEG Urine Glucose (UA) NEG Urine Ketones NEG Urine Occult Blood NEG Urine Nitrite NEG Urine Bilirubin NEG Urine Urobilinogen NEG Urine Leukocyte Esterase SMALL Urine WBC (Auto) 1-5 /hpf Urine RBC (Auto) 0-4 /hpf Urine Hyaline Casts (Auto) 0 /lpf Urine Epithelial Cells (Auto) 20-30 /lpf Urine Bacteria (Auto) NEG Bedside Glucose 91 mg/dl Influenza Type A (RT-PCR) Neg for Influ A Influenza Type B (RT-PCR) Neg for Influ B Test 06/26/16 16:27 06/26/16 18:20 06/26/16 20:04 06/27/16 00:39 Bedside Glucose 141 mg/dl 110 mg/dl Troponin I 0.021 ng/ml 0.025 ng/ml Test 06/27/16 06:00 06/27/16 06:47 White Blood Count 5.77 K/uL Red Blood Count 3.16 M/uL Hemoglobin 8.4 g/dL Hematocrit 26.5 % Mean Corpuscular Volume 83.9 fL Mean Corpuscular Hemoglobin 26.6 pg Mean Corpuscular Hemoglobin Concent 31.7 g/dl RDW Standard Deviation 53.9 fL RDW Coefficient of Variation 17.5 % Platelet Count 250 K/uL Mean Platelet Volume 9.6 fL Prothrombin Time 49.7 SECONDS Prothromb Time International Ratio 4.4 Sodium Level 138 mmol/L Potassium Level 3.7 mmol/L Chloride Level 107 mmol/L Carbon Dioxide Level 23 mmol/L Anion Gap 8.0 mmol/L Blood Urea Nitrogen 68 mg/dl Creatinine 1.90 mg/dl Est Creatinine Clear Calc Drug Dose 25.3 ml/min Estimated GFR () 29.6 Estimated GFR (Non- 25.5 BUN/Creatinine Ratio 35.7 Random Glucose 76 mg/dl Calcium Level 9.0 mg/dl Random Vancomycin Level 14.1 mcg/ml Bedside Glucose 95 mg/dl TWO VIEW CHEST CLINICAL HISTORY: Pleural effusions. FINDINGS: AP and lateral chest radiographs are compared to study performed earlier the same day 06/26/2016 and 06/24/2016. Correlation is made with chest CT dated 10/16/2013. The AP view is degraded by patient rotation. A single lead cardiac pacemaker is unchanged in position and partially obscures the left upper chest. The patient is status post midline sternotomy and cardiac valve surgery. The heart is enlarged and there is atherosclerotic calcification of the thoracic aorta. There is mild pulmonary vascular congestion. Nonspecific chronic interstitial thickening is unchanged. There is a small to moderate right pleural effusion with right basilar airspace consolidation. Linear atelectasis is seen at the left lung base. The left lung otherwise appears clear. There is no pneumothorax. The skeletal structures are osteopenic. Degenerative change is seen throughout the thoracic spine. IMPRESSION: 1. Cardiomegaly and cardiac pacemaker. Mild pulmonary vascular congestion persists. 2. Small to moderate right pleural effusion with right basilar consolidation. This has not significantly changed from earlier today. Assessment & Plan 76 yo female with multiple medical co-morbidities now readmitted with possible HCAP. Given multiple allergies and high risk for resistant pathogens, agree with use of imipenem pending further culture results. Would further evaluate right effusion for possibility of empyema. Will discuss and follow.
--- NOTE | 2016-06-27 12:11 | ECHOCARDIOGRAM REPORT ---
*NOTICE TO RECEIVING REPUBLICAN AGENCY This information is strictly Confidential and protected under [place] law. [place] law prohibits you from making any further disclosure of this information unless further disclosure is expressly permitted by the written consent of the person to whom it pertains or is authorized by law. A general authorization for the release of medical or other information is not sufficient for this purpose. Hospital accepts no responsibility if the information is made available to any other person, INCLUDING THE PATIENT. Interpretation Summary * Name: MAGNUS ZIEGLER Study Date: 06/27/2016 09:36 AM BP: 154/69 mmHg * Patient Location: C.2T\S\S238\S\1 HR: 70 * : 1940 (M/d/yyyy) Gender: Female Height: 63 in * Age: 76 yrs Ethnicity: CA Weight: 170 lb * Ordering Physician: Robyn Abernathy * Referring Physician: Yenifer Winters * Performed By: Itzel Wan * * Reason For Study: CHF * BSA: 1.8 m2 * -- Conclusions -- * There is mild to moderate tricuspid regurgitation. * There is moderate asymmetric left ventricular hypertrophy. * Left ventricular systolic function is normal. * The right ventricle is mild to moderately dilated. * The left atrium is severely dilated. * The right atrium is moderate to severely dilated. * Mild to moderate aortic regurgitation. * There is a mechanical mitral valve. * Normal prosthetic mitral valve gradients. * Right ventricular systolic pressure is elevated at >60mmHg.Compared to an echocardiogram from 2015, the systolic function is now normal. PUlmonary pressures are higher. Procedure Details * A complete two-dimensional transthoracic echocardiogram was performed (2D, M-mode, Doppler and color flow Doppler). Left Ventricle * The left ventricle is normal in size. * There is moderate asymmetric left ventricular hypertrophy. * Ejection Fraction = 60-65%. * Left ventricular systolic function is normal. * Diastolic function not well characterized * Septal motion is consistent with post-operative state. Right Ventricle * The right ventricle is mild to moderately dilated. * The right ventricular systolic function is borderline reduced. Atria * The left atrium is severely dilated. * The right atrium is moderate to severely dilated. Mitral Valve * There is a mechanical mitral valve. * Normal prosthetic mitral valve gradients. Tricuspid Valve * There is mild to moderate tricuspid regurgitation. * Right ventricular systolic pressure is elevated at >60mmHg. Aortic Valve * The aortic valve is tricuspid. The leaflet thickness if normal. There is no aortic stenosis, and no significant insufficiency. * No hemodynamically significant valvular aortic stenosis. * Mild to moderate aortic regurgitation. Great Vessels * The aortic root and proximal ascending aorta are normal sized. Pericardium/Pleural * There is no pericardial effusion. MMode 2D Measurements and Calculations IVSd 2.4 cm IVSs 2.1 cm LVIDd 4.1 cm LVIDs 2.8 cm LVPWd 1.7 cm LVPWs 2.1 cm IVS/LVPW 1.4 FS 33.0 % EDV(Teich) 75.9 ml ESV(Teich) 28.8 ml EF(Teich) 62.0 % EDV(cubed) 70.9 ml ESV(cubed) 21.3 ml EF(cubed) 69.9 % % IVS thick -10.20 % % LVPW thick 18.5 % LV mass(C)d 412.7 grams LV mass(C)dI 228.7 grams/m\S\2 LV mass(C)s 266.6 grams LV mass(C)sI 147.7 grams/m\S\2 SV(Teich) 47.0 ml SI(Teich) 26.1 ml/m\S\2 SV(cubed) 49.6 ml SI(cubed) 27.5 ml/m\S\2 ACS 1.4 cm LA dimension 4.4 cm asc Aorta Diam 3.3 cm LVOT diam 1.6 cm LVOT area 2.1 cm\S\2 LVAd ap4 20.3 cm\S\2 LVLd ap4 7.2 cm EDV(MOD-sp4) 48.5 ml EDV(sp4-el) 48.8 ml LVAs ap4 11.3 cm\S\2 LVLs ap4 5.5 cm ESV(MOD-sp4) 20.6 ml ESV(sp4-el) 19.6 ml EF(MOD-sp4) 57.5 % EF(sp4-el) 59.8 % LVAd ap2 31.8 cm\S\2 LVLd ap2 7.7 cm EDV(MOD-sp2) 112.3 ml EDV(sp2-el) 110.9 ml LVAs ap2 18.7 cm\S\2 LVLs ap2 7.2 cm ESV(MOD-sp2) 41.6 ml ESV(sp2-el) 40.9 ml EF(MOD-sp2) 62.9 % EF(sp2-el) 63.1 % LVLd %diff 6.9 % EDV(MOD-bp) 74.8 ml LVLs %diff 23.8 % ESV(MOD-bp) 33.4 ml EF(MOD-bp) 55.3 % SV(MOD-sp4) 27.9 ml SI(MOD-sp4) 15.5 ml/m\S\2 SV(MOD-sp2) 70.7 ml SI(MOD-sp2) 39.2 ml/m\S\2 SV(MOD-bp) 41.3 ml SI(MOD-bp) 22.9 ml/m\S\2 SV(sp4-el) 29.2 ml SI(sp4-el) 16.2 ml/m\S\2 SV(sp2-el) 70.0 ml SI(sp2-el) 38.8 ml/m\S\2 Doppler Measurements and Calculations MV E max jacqueline 221.9 cm/sec MV V2 max 268.4 cm/sec MV max PG 28.8 mmHg MV V2 mean 120.2 cm/sec MV mean PG 8.1 mmHg MV V2 VTI 54.5 cm MV dec time 0.33 sec Ao V2 max 193.0 cm/sec Ao max PG 14.9 mmHg Ao max PG (full) 11.4 mmHg JAC(V,A) 1.0 cm\S\2 JAC(V,D) 1.0 cm\S\2 AI max jacqueline 360.8 cm/sec AI max PG 52.1 mmHg AI dec slope 190.3 cm/sec\S\2 AI P1/2t 555.3 msec LV V1 max PG 3.5 mmHg LV V1 max 93.6 cm/sec PA V2 max 106.8 cm/sec PA max PG 4.6 mmHg PI end-d jacqueline 105.3 cm/sec TR max jacqueline 387.4 cm/sec
[2016-06-27 18:13] LABS: BASO % 0.3 %; BASO ABS # 0.02 K/uL (0-0.2); EOS % 2.8 %; IG% 0.1 %; LYMPH % 9.5 %; LYMPH ABS # 0.71 K/uL (1.2-3.4); MEAN CELL VOLUME 82.8 fL (80-100); MEAN CORPUSCULAR HEMOGLOBIN 26.3 pg (25-34); MEAN CORPUSCULAR HGB CONC 31.8 g/dl (32-36); MEAN PLATELET VOLUME 9.5 fL (7.4-10.4); MONO % 7.6 %; NEUT % 79.7 %; PLATELET COUNT 251 K/uL (130-400); RED BLOOD COUNT 3.38 M/uL (4.2-5.4); WHITE BLOOD COUNT 7.47 K/uL (4.8-10.8)
[2016-06-27 18:32] LABS: ANISOCYTOSIS PRESENT; COMPLETE YES; HYPOCHROMIA PRESENT; POLYCHROMASIA 1+
--- NOTE | 2016-06-27 18:55 | Hospitalist Progress Note ---
Hospitalist Progress Note Date of Service Jun 27, 2016. Subjective Pt evaluation today including: conversation w/ patient Patient with no complaints still short of breath Medications Medications (Trade) Dose Ordered Sig/Albin Route Start Time Stop Time Status Last Admin Dose Admin Cyanocobalamin (Vitamin B-12 Tab) 1,000 mcg QAM PO 06/27/16 09:00 07/27/16 08:59 06/27/16 08:25 1,000 MCG Diazepam (Valium Tab) 5 mg HS PO 06/26/16 21:00 07/26/16 20:59 06/26/16 21:59 5 MG Digoxin (Lanoxin Tab) 0.125 mg QAM PO 06/27/16 09:00 07/27/16 08:59 06/27/16 08:25 0.125 MG EZETIMIBE (Zetia Tab) 10 mg HS PO 06/26/16 21:00 07/26/16 20:59 06/26/16 22:00 10 MG Fexofenadine HCl (Vickie Tab) 180 mg QAM PO 06/27/16 09:00 07/27/16 08:59 06/27/16 08:26 180 MG Gemfibrozil (Lopid Tab) 600 mg BID PO 06/26/16 21:00 07/26/16 20:59 06/27/16 08:26 600 MG Hydralazine HCl (Apresoline Tab) 25 mg BID PO 06/26/16 21:00 07/26/16 20:59 06/27/16 09:52 25 MG Insulin Glargine (Lantus Solostar Pen) 15 unit BID SC 06/26/16 21:00 07/26/16 20:59 06/27/16 08:30 15 UNIT Isosorbide Mononitrate (Imdur Ext Rel Tab) 30 mg QAM PO 06/27/16 09:00 07/27/16 08:59 06/27/16 08:26 30 MG Levothyroxine Sodium (Synthroid Tab) 175 mcg DAILYBB PO 06/27/16 06:00 07/27/16 06:59 06/27/16 05:46 175 MCG Metoprolol Succinate (Toprol Xl Tab) 100 mg QAM PO 06/27/16 09:00 07/27/16 08:59 06/27/16 08:27 100 MG Montelukast Sodium (Singulair Tab) 10 mg HS PO 06/26/16 21:00 07/26/16 20:59 06/26/16 20:41 10 MG Pyridoxine HCl (Vitamin B-6 Tab) 100 mg QAM PO 06/27/16 09:00 07/27/16 08:59 06/27/16 08:27 100 MG Cholecalciferol (Vitamin D Tab) 1,000 inter.unit DAILY PO 06/27/16 09:00 07/27/16 08:59 06/27/16 08:26 1,000 INTER.UNIT Ketorolac Tromethamine 1 drops 1 drops AMHS OPL 06/26/16 21:00 07/26/16 20:59 06/27/16 08:23 1 DROPS Vancomycin HCl/ Sodium Chloride (Vancomycin Inj/ Nss 250ml) 274 ml @ 125 mls/hr 0900 ONCE IV 06/27/16 09:00 06/27/16 11:11 DC 06/27/16 09:52 125 MLS/HR Objective Vital Signs Date Time Temp Pulse Resp B/P Pulse Ox O2 Delivery O2 Flow Rate FiO2 06/27/16 16:00 Room Air 06/27/16 15:49 36.3 63 20 126/71 94 Room Air 06/27/16 14:21 71 12 95 Room Air 06/27/16 14:15 96 06/27/16 12:00 Room Air 06/27/16 11:30 36.6 70 20 144/61 94 Room Air 06/27/16 08:25 70 06/27/16 08:00 Room Air 06/27/16 07:52 36.4 75 20 154/69 96 Room Air 06/27/16 07:12 62 16 95 Room Air 06/27/16 04:00 Room Air 06/27/16 03:44 36.6 66 20 103/50 93 Room Air 06/27/16 02:12 68 16 95 Room Air 06/26/16 23:59 Room Air 06/26/16 23:41 36.9 63 20 127/64 92 Room Air 06/26/16 21:47 36.9 69 127/53 06/26/16 20:00 Room Air 06/26/16 20:00 36.8 61 20 140/69 97 Room Air 06/26/16 19:23 68 16 94 Room Air Physical Exam General Appearance: no apparent distress Eyes: normal inspection Neck: trachea midline Respiratory/Chest: chest non-tender, lungs clear Cardiovascular: regular rate, rhythm, no edema Abdomen: normal bowel sounds, non tender Laboratory Results Last 24 Hours Test 06/26/16 20:04 06/27/16 00:39 06/27/16 06:00 06/27/16 06:47 Bedside Glucose 110 mg/dl 95 mg/dl Troponin I 0.025 ng/ml White Blood Count 5.77 K/uL Red Blood Count 3.16 M/uL Hemoglobin 8.4 g/dL Hematocrit 26.5 % Mean Corpuscular Volume 83.9 fL Mean Corpuscular Hemoglobin 26.6 pg Mean Corpuscular Hemoglobin Concent 31.7 g/dl RDW Standard Deviation 53.9 fL RDW Coefficient of Variation 17.5 % Platelet Count 250 K/uL Mean Platelet Volume 9.6 fL Prothrombin Time 49.7 SECONDS Prothromb Time International Ratio 4.4 Sodium Level 138 mmol/L Potassium Level 3.7 mmol/L Chloride Level 107 mmol/L Carbon Dioxide Level 23 mmol/L Anion Gap 8.0 mmol/L Blood Urea Nitrogen 68 mg/dl Creatinine 1.90 mg/dl Est Creatinine Clear Calc Drug Dose 25.3 ml/min Estimated GFR () 29.6 Estimated GFR (Non- 25.5 BUN/Creatinine Ratio 35.7 Random Glucose 76 mg/dl Calcium Level 9.0 mg/dl Random Vancomycin Level 14.1 mcg/ml Test 06/27/16 11:37 06/27/16 16:13 06/27/16 18:02 Bedside Glucose 121 mg/dl 134 mg/dl White Blood Count 7.47 K/uL Red Blood Count 3.38 M/uL Hemoglobin 8.9 g/dL Hematocrit 28.0 % Mean Corpuscular Volume 82.8 fL Mean Corpuscular Hemoglobin 26.3 pg Mean Corpuscular Hemoglobin Concent 31.8 g/dl Platelet Count 251 K/uL Mean Platelet Volume 9.5 fL Neutrophils (%) (Auto) 79.7 % Lymphocytes (%) (Auto) 9.5 % Monocytes (%) (Auto) 7.6 % Eosinophils (%) (Auto) 2.8 % Basophils (%) (Auto) 0.3 % Neutrophils # (Auto) 5.95 K/uL Lymphocytes # (Auto) 0.71 K/uL Monocytes # (Auto) 0.57 K/uL Eosinophils # (Auto) 0.21 K/uL Basophils # (Auto) 0.02 K/uL RDW Standard Deviation 53.5 fL RDW Coefficient of Variation 17.5 % Immature Granulocyte % (Auto) 0.1 % Immature Granulocyte # (Auto) 0.01 K/uL Polychromasia 1+ Hypochromasia PRESENT Anisocytosis PRESENT Assessment and Plan (1) CHF (congestive heart failure) (2) Pneumonia Assessment & Plan: continue imipenum (3) COPD exacerbation (4) Anemia Assessment & Plan: follow cbc
[2016-06-27 19:11] LABS: BUN/CREATININE RATIO 29.5 (10-20); CALCIUM 8.9 mg/dl (8.5-10.1)
[2016-06-27 19:12] LABS: POTASSIUM 4.4 mmol/L (3.5-5.1)
[2016-06-27] MEDS: GUAIFENESIN/CODEINE 200MG/20MG 10ML UDC PO PRN (19:33)
[2016-06-27] MEDS: BENZONATATE 100MG CAP PO SCH (21:16)
[2016-06-27] MEDS: EZETIMIBE 10MG TAB PO SCH (21:17)
[2016-06-27] MEDS: MONTELUKAST SOD 10 MG TAB PO SCH (21:18)
[2016-06-27] MEDS: DIAZEPAM 5MG TAB PO SCH (21:21)
[2016-06-28] VITALS (15 sets, daily range): BP systolic 113–134; BP diastolic 53–66; PULSE 58–73; TEMP 36.7–36.9; O2SAT 93–99
[2016-06-28] MEDS: LEVALBUTEROL 1.25MG/0.5ML NEB INH SCH ×4 (01:13→19:36)
[2016-06-28 06:03] LABS: HEMATOCRIT 27.6 % (37-47); MEAN CELL VOLUME 83.4 fL (80-100); MEAN CORPUSCULAR HGB CONC 31.2 g/dl (32-36); MEAN PLATELET VOLUME 9.6 fL (7.4-10.4); PLATELET COUNT 261 K/uL (130-400); RED BLOOD COUNT 3.31 M/uL (4.2-5.4); WHITE BLOOD COUNT 6.87 K/uL (4.8-10.8)
[2016-06-28 06:07] LABS: INR 3.1 (0.9-1.1); PROTHROMBIN TIME (PATIENT) 35.1 SECONDS (9.0-12.0)
[2016-06-28] MEDS: IMIPENEM-CILASTATIN 200 MG in DEXTROSE 5% 100ML 100 ML IV SCH ×4 (06:10→23:08)
[2016-06-28] MEDS: LEVOTHYROXINE 175 MCG TAB PO SCH (06:11)
[2016-06-28 06:58] LABS: BUN/CREATININE RATIO 31.3 (10-20); CALCIUM 8.5 mg/dl (8.5-10.1); CREATININE 1.8 mg/dl (0.60-1.20); POTASSIUM 4.2 mmol/L (3.5-5.1)
[2016-06-28] MEDS: INSULIN ASPART 100 UNITS/ML 3 ML PEN SC SCH ×4 (07:00→21:00)
[2016-06-28] MEDS: PYRIDOXINE HCL 50 MG TAB PO SCH (07:28)
[2016-06-28] MEDS: GUAIFENESIN/CODEINE 200MG/20MG 10ML UDC PO PRN (07:28)
[2016-06-28] MEDS: CHOLECALCIFEROL 1000 INTER.UNIT TAB PO SCH (07:29)
[2016-06-28] MEDS: FEXOFENADINE HCL 180 MG TAB PO SCH (07:29)
[2016-06-28] MEDS: BENZONATATE 100MG CAP PO SCH ×3 (07:30→21:18)
[2016-06-28] MEDS: PrednisoLONE ACET 1% OP SUSP 5 ML BTL OPL SCH ×4 (07:30→21:18)
[2016-06-28] MEDS: LACTOBACILLUS ACIDOPHILUS (FLORANEX) TAB PO SCH ×3 (07:31→17:21)
[2016-06-28] MEDS: KETOROLAC 0.5% OP SOLN 3 ML BTL OPL SCH ×2 (07:31→21:18)
[2016-06-28] MEDS: METOPROLOL SUCC 50MG EXT REL TAB PO SCH (07:31)
[2016-06-28] MEDS: DIGOXIN 0.125 MG TAB PO SCH (07:32)
[2016-06-28] MEDS: CYANOCOBALAMIN 500 MCG TAB (VIT B-12) PO SCH (07:32)
[2016-06-28] MEDS: ISOSORBIDE MONONITRATE 30 MG TABCR PO SCH (07:33)
[2016-06-28] MEDS: GEMFIBROZIL 600 MG TAB PO SCH ×2 (07:33→21:18)
[2016-06-28] MEDS: INSULIN GLARGINE SOLOSTAR 100 UNITS/ML 3 ML PEN SC SCH ×2 (07:35→21:21)
[2016-06-28] MEDS: IPRATROPIUM BROMIDE NEB SOLN 0.02% 2.5 ML VIAL INH SCH ×3 (07:43→23:09)
--- NOTE | 2016-06-28 09:10 | Hospitalist Progress Note ---
Hospitalist Progress Note Date of Service Jun 28, 2016. Subjective Pt evaluation today including: conversation w/ patient, lab review patient complaining of shortness of breath Medications Medications (Trade) Dose Ordered Sig/Albin Route Start Time Stop Time Status Last Admin Dose Admin Benzonatate (Tessalon Perles Cap) 100 mg TID PO 06/27/16 21:00 07/27/16 20:59 06/28/16 07:30 100 MG Codeine Phosphate/ Guaifenesin (Robitussin-AC Sugar Free Syrup) 10 ml Q6H PRN PO 06/27/16 16:45 07/27/16 16:44 06/28/16 07:28 10 ML Objective Vital Signs Date Time Temp Pulse Resp B/P Pulse Ox O2 Delivery O2 Flow Rate FiO2 06/28/16 08:01 73 06/28/16 08:00 Nasal Cannula 2.0 06/28/16 07:42 36.7 63 20 134/63 96 2.0 06/28/16 07:32 94 06/28/16 07:00 64 20 97 Room Air 06/28/16 04:33 Nasal Cannula 2.0 06/28/16 03:08 36.8 70 20 130/60 93 Nasal Cannula 2.0 06/28/16 01:13 71 20 93 Room Air 06/28/16 00:06 Nasal Cannula 2.0 06/27/16 23:24 36.8 71 22 120/62 91 Nasal Cannula 1.0 06/27/16 20:08 96 Nasal Cannula 2.0 06/27/16 20:00 36.9 79 24 141/80 90 Nasal Cannula 06/27/16 19:30 78 12 99 Nasal Cannula 1.0 06/27/16 16:00 Room Air 06/27/16 15:49 36.3 63 20 126/71 94 Room Air 06/27/16 14:21 71 12 95 Room Air 06/27/16 14:15 96 06/27/16 12:00 Room Air 06/27/16 11:30 36.6 70 20 144/61 94 Room Air Physical Exam General Appearance: WD/WN, no apparent distress Neck: trachea midline Respiratory/Chest: normal breath sounds (decreased bs on right) Cardiovascular: regular rate, rhythm Abdomen: normal bowel sounds Laboratory Results Last 24 Hours Test 06/27/16 11:37 06/27/16 16:13 06/27/16 18:02 06/27/16 20:18 Bedside Glucose 121 mg/dl 134 mg/dl 169 mg/dl White Blood Count 7.47 K/uL Red Blood Count 3.38 M/uL Hemoglobin 8.9 g/dL Hematocrit 28.0 % Mean Corpuscular Volume 82.8 fL Mean Corpuscular Hemoglobin 26.3 pg Mean Corpuscular Hemoglobin Concent 31.8 g/dl Platelet Count 251 K/uL Mean Platelet Volume 9.5 fL Neutrophils (%) (Auto) 79.7 % Lymphocytes (%) (Auto) 9.5 % Monocytes (%) (Auto) 7.6 % Eosinophils (%) (Auto) 2.8 % Basophils (%) (Auto) 0.3 % Neutrophils # (Auto) 5.95 K/uL Lymphocytes # (Auto) 0.71 K/uL Monocytes # (Auto) 0.57 K/uL Eosinophils # (Auto) 0.21 K/uL Basophils # (Auto) 0.02 K/uL RDW Standard Deviation 53.5 fL RDW Coefficient of Variation 17.5 % Immature Granulocyte % (Auto) 0.1 % Immature Granulocyte # (Auto) 0.01 K/uL Polychromasia 1+ Hypochromasia PRESENT Anisocytosis PRESENT Sodium Level 137 mmol/L Potassium Level 4.4 mmol/L Chloride Level 104 mmol/L Carbon Dioxide Level 21 mmol/L Anion Gap 12.0 mmol/L Blood Urea Nitrogen 59 mg/dl Creatinine 2.00 mg/dl Est Creatinine Clear Calc Drug Dose 24.0 ml/min Estimated GFR () 27.8 Estimated GFR (Non- 24.0 BUN/Creatinine Ratio 29.5 Random Glucose 214 mg/dl Calcium Level 8.9 mg/dl Test 06/28/16 05:36 06/28/16 06:49 06/28/16 09:00 White Blood Count 6.87 K/uL Red Blood Count 3.31 M/uL Hemoglobin 8.6 g/dL Hematocrit 27.6 % Mean Corpuscular Volume 83.4 fL Mean Corpuscular Hemoglobin 26.0 pg Mean Corpuscular Hemoglobin Concent 31.2 g/dl RDW Standard Deviation 54.1 fL RDW Coefficient of Variation 17.5 % Platelet Count 261 K/uL Mean Platelet Volume 9.6 fL Prothrombin Time 35.1 SECONDS Prothromb Time International Ratio 3.1 Sodium Level 138 mmol/L Potassium Level 4.2 mmol/L Chloride Level 107 mmol/L Carbon Dioxide Level 22 mmol/L Anion Gap 9.0 mmol/L Blood Urea Nitrogen 56 mg/dl Creatinine 1.80 mg/dl Est Creatinine Clear Calc Drug Dose 26.8 ml/min Estimated GFR () 31.6 Estimated GFR (Non- 27.2 BUN/Creatinine Ratio 31.3 Random Glucose 79 mg/dl Calcium Level 8.5 mg/dl Bedside Glucose 103 mg/dl Assessment and Plan (1) CHF (congestive heart failure) (2) Pneumonia (3) COPD exacerbation (4) Anemia
--- NOTE | 2016-06-28 09:59 | DIAGNOSTIC IMAGING REPORT ---
CHEST DECUBS CLINICAL HISTORY: pleural effusion on right eval pleural effusion COMPARISON STUDY: 06/26/2016 FINDINGS: Right and left decubitus films the chest from the prior presence of a layering right effusion. There is no significant left effusion. IMPRESSION: Layering right pleural effusion. Electronically signed by: Zak Olson M.D. 06/28/2016 9:57 AM Dictated Date/Time: 06/28/2016 9:57 AM
--- NOTE | 2016-06-28 10:39 | Progress Note ---
Subjective Date of Service: Jun 28, 2016. Subjective pt repeat cxr with layered effusion. remains on imipenem emperically for suspected HCAP. afebrile. ambulating without difficulty. cultures negative to date. wbc nml. Problem List Medical Problems: (1) Anemia Status: Acute (2) Cat bite of right lower leg with infection Status: Acute (3) Cellulitis Status: Acute (4) Dehydration Status: Acute (5) Fever Status: Acute (6) Fracture of right distal radius Status: Acute (7) PNA (pneumonia) Status: Acute (8) Rapid atrial fibrillation Status: Acute (9) Respiratory distress Status: Acute (10) Right arm fracture Status: Acute Objective Vital Signs Date Time Temp Pulse Resp B/P Pulse Ox O2 Delivery O2 Flow Rate FiO2 06/28/16 08:01 73 06/28/16 08:00 Nasal Cannula 2.0 06/28/16 07:42 36.7 63 20 134/63 96 2.0 06/28/16 07:32 94 06/28/16 07:00 64 20 97 Room Air 06/28/16 04:33 Nasal Cannula 2.0 06/28/16 03:08 36.8 70 20 130/60 93 Nasal Cannula 2.0 06/28/16 01:13 71 20 93 Room Air 06/28/16 00:06 Nasal Cannula 2.0 06/27/16 23:24 36.8 71 22 120/62 91 Nasal Cannula 1.0 06/27/16 20:08 96 Nasal Cannula 2.0 06/27/16 20:00 36.9 79 24 141/80 90 Nasal Cannula 06/27/16 19:30 78 12 99 Nasal Cannula 1.0 06/27/16 16:00 Room Air 06/27/16 15:49 36.3 63 20 126/71 94 Room Air 06/27/16 14:21 71 12 95 Room Air 06/27/16 14:15 96 06/27/16 12:00 Room Air 06/27/16 11:30 36.6 70 20 144/61 94 Room Air Laboratory Results Item Value Date Time Blood Culture - Preliminary Resulted 06/26/16 1137 Blood NO GROWTH TO DATE. Blood Culture - Preliminary Resulted 06/26/16 1142 Blood NO GROWTH TO DATE. Last 24 Hours Test 06/27/16 11:37 06/27/16 16:13 06/27/16 18:02 06/27/16 20:18 Bedside Glucose 121 mg/dl 134 mg/dl 169 mg/dl White Blood Count 7.47 K/uL Red Blood Count 3.38 M/uL Hemoglobin 8.9 g/dL Hematocrit 28.0 % Mean Corpuscular Volume 82.8 fL Mean Corpuscular Hemoglobin 26.3 pg Mean Corpuscular Hemoglobin Concent 31.8 g/dl Platelet Count 251 K/uL Mean Platelet Volume 9.5 fL Neutrophils (%) (Auto) 79.7 % Lymphocytes (%) (Auto) 9.5 % Monocytes (%) (Auto) 7.6 % Eosinophils (%) (Auto) 2.8 % Basophils (%) (Auto) 0.3 % Neutrophils # (Auto) 5.95 K/uL Lymphocytes # (Auto) 0.71 K/uL Monocytes # (Auto) 0.57 K/uL Eosinophils # (Auto) 0.21 K/uL Basophils # (Auto) 0.02 K/uL RDW Standard Deviation 53.5 fL RDW Coefficient of Variation 17.5 % Immature Granulocyte % (Auto) 0.1 % Immature Granulocyte # (Auto) 0.01 K/uL Polychromasia 1+ Hypochromasia PRESENT Anisocytosis PRESENT Sodium Level 137 mmol/L Potassium Level 4.4 mmol/L Chloride Level 104 mmol/L Carbon Dioxide Level 21 mmol/L Anion Gap 12.0 mmol/L Blood Urea Nitrogen 59 mg/dl Creatinine 2.00 mg/dl Est Creatinine Clear Calc Drug Dose 24.0 ml/min Estimated GFR () 27.8 Estimated GFR (Non- 24.0 BUN/Creatinine Ratio 29.5 Random Glucose 214 mg/dl Calcium Level 8.9 mg/dl Test 06/28/16 05:36 06/28/16 06:49 06/28/16 09:15 White Blood Count 6.87 K/uL Red Blood Count 3.31 M/uL Hemoglobin 8.6 g/dL Hematocrit 27.6 % Mean Corpuscular Volume 83.4 fL Mean Corpuscular Hemoglobin 26.0 pg Mean Corpuscular Hemoglobin Concent 31.2 g/dl RDW Standard Deviation 54.1 fL RDW Coefficient of Variation 17.5 % Platelet Count 261 K/uL Mean Platelet Volume 9.6 fL Prothrombin Time 35.1 SECONDS Prothromb Time International Ratio 3.1 Sodium Level 138 mmol/L Potassium Level 4.2 mmol/L Chloride Level 107 mmol/L Carbon Dioxide Level 22 mmol/L Anion Gap 9.0 mmol/L Blood Urea Nitrogen 56 mg/dl Creatinine 1.80 mg/dl Est Creatinine Clear Calc Drug Dose 26.8 ml/min Estimated GFR () 31.6 Estimated GFR (Non- 27.2 BUN/Creatinine Ratio 31.3 Random Glucose 79 mg/dl Calcium Level 8.5 mg/dl Bedside Glucose 103 mg/dl Random Vancomycin Level 14.2 mcg/ml Assessment and Plan (1) Pleural effusion, right Assessment & Plan: ? pna vs effusion. would continue imipenem for now, follow cultures, negative to date. would give 7 days total.
--- NOTE | 2016-06-28 14:46 | DIAGNOSTIC IMAGING REPORT ---
CHEST ONE VIEW PORTABLE CLINICAL HISTORY: right thoracentesis postthoracentesis COMPARISON STUDY: 06/28/2016 FINDINGS: No evidence for pneumothorax status post right thoracentesis. Interval decrease in volume of right effusion. IMPRESSION: No evidence pneumothorax status post right thoracentesis Electronically signed by: Zak Olson M.D. 06/28/2016 2:44 PM Dictated Date/Time: 06/28/2016 2:44 PM
[2016-06-28 14:51] LABS: ISTAT ARTERIAL BLOOD GAS HCO3 21 meq/L (19-24); ISTAT ARTERIAL BLOOD GAS PCO2 41 mmHg (35-46); ISTAT ARTERIAL BLOOD GAS PO2 64 mmHg (80-95); ISTAT ARTERIAL BLOOD GAS pH 7.32 (7.35-7.45); ISTAT CARBON DIOXIDE 22 mEq/l (24-31); ISTAT SITE R Brachial
[2016-06-28 15:32] LABS: PLEURAL FLUID TOTAL PROTEIN 3.9 g/dl
--- NOTE | 2016-06-28 15:47 | OPERATIVE REPORT ---
DATE OF OPERATION: 06/28/2016 PREOPERATIVE DIAGNOSIS: Increasing right pleural effusion. POSTOPERATIVE DIAGNOSIS: Same. PROCEDURE: Right thoracentesis under ultrasound guidance. SURGEON: Dr. Cueva. OPERATIONS CLERK: Froilan Cool PA-C. ANESTHESIA: Local. SPECIFICS OF PROCEDURE: With the patient in prone position at about the seventh interspace lateral to the posterior axillary line was a window was noted under ultrasound guidance. She was prepped and draped in usual sterile fashion. After appropriate timeout had been called skin wheal was raised 25 gauge needle, 1% Xylocaine. A large bore needle was used to anesthetize the deeper subcutaneous tissues and pleura. We got free flowing fluid back and guidewire was inserted through the needle and needle removed. Introducer was slid over the guidewire and then removed. A triple lumen catheter was slid over at 18 cm and the guidewire removed. A total of about 1500 mL of a rust colored fluid was drained. She tolerated it quite well, was really very little in the way of reexpansion pain or coughing. On x-ray most of the fluid had been drained. I slowly withdrew the catheter. She tolerated it very well and placed antimicrobial dressing over this. X-rays showed good drainage of this fluid. I attest to the content of the Intraoperative Record and any orders documented therein. Any exceptio ns are noted below.
[2016-06-28 16:03] LABS: PLEURAL FLUID APPEARANCE CLOUDY; PLEURAL FLUID COLOR RED; PLEURAL FLUID MONONUC RELAT 50.2 %; PLEURAL FLUID POLYNUC 49.8 %; PLEURAL FLUID SOURCE RIGHT LUNG; PLEURAL FLUID WBC (A) 511 /uL
--- NOTE | 2016-06-28 16:13 | SURGICAL CONSULTATION ---
DATE OF CONSULTATION: 06/28/2016 REASON FOR CONSULTATION: Right pleural effusion. HISTORY OF PRESENT ILLNESS: This is a sickly appearing 76-year-old female who has been hospitalized several times for multiple issues including congestive heart failure and pneumonia last month with worsening shortness of breath and was admitted 48 hours ago on 06/26/2016 with increasing shortness of breath, generalized weakness and edema of her lower extremities. She had been treated for pneumonia and congestive heart failure in May. She had been started on doxycycline and felt that she was improving; however, she then worsened had intermittent fevers and she worsened, she was admitted. Her INR was found to be 4.7. She did take Lasix. She was admitted and I was asked to see her because there was a question of a parapneumonic or right pleural empyema. She has a pleural effusion. Her INR is 3.1 today. PAST MEDICAL HISTORY: 1. Atrial fibrillation. 2. Chronic obstructive pulmonary disease. 3. History of deep vein thrombosis. 4. Diabetes mellitus. 5. Peptic ulcer disease. 6. Recent pneumonia. 7. 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 8. Cholelithiasis. 9. Asthma. 10. Urinary tract infections in the past. 11. Pancreatitis in the past. PAST SURGICAL HISTORY: 1. 2, para 2, aborta 0. 2. Midline sternotomy 1985 with insertion of a mitral valve prostheses (Dowd-Lee valve.) in [place]. 3. Insertion of a cardiac pacemaker. 4. Cholecystectomy in 2008. 5. Repair of a fracture of the distal right radius. MEDICATIONS: (at home) 1. Azithromycin. 2. Omnicef. 3. Valium. 4. Digoxin. 5. Doxycycline. 6. Ezetimibe. 7. Vickie. 8. Lasix. 9. Gemfibrozil. 10. Apresoline. 11. NovoLog insulin. 12. Isosorbide mononitrate. 13. Synthroid. 14. Metoprolol. 15. Multiple eyedrops. 17. Vitamin B12. 18. Aldactone. 19. Warfarin. ALLERGIES: 1. PENICILLIN. 2. CLONIDINE. 3. NORTRIPTYLINE. 4. MOXIFLOXACIN. 5. NSAIDs. 6. ASPIRIN. 7. ATORVASTATIN. 8. LEVOFLOXACIN. 9. DILTIAZEM. 10. SULFA. 11. TRIMETHOPRIM. SOCIAL HISTORY: The patient was adopted. She had no siblings. She never smoked cigarettes. She currently lives with her family. She has 2 children, 6 grandchildren who are attentive. FAMILY MEDICAL HISTORY: The patient's 2 children and 6 grandchildren are healthy. She never actually met her father. She was 4 years old when he was killed in action [place] in 1944 during World War II. Mother at age 77 from lung cancer, "was a smoker." REVIEW OF SYSTEMS: The patient complains of fatigue, weakness and unfortunately cares for her at home who has had several strokes. She is quite ill. She has lost weight in the last year or so. She is a long time patient of Dr. Niles Estrada. She is complaining of increasing cough and dyspnea on exertion. She has sputum production but denies hemoptysis. She has had problems with her eyes in the past, on multiple eyedrops. Denies palpitations. She denies nausea or vomiting. She has had lower extremity edema which is better since she had hospitalized. Neurologically she is very slow to speak and is very weak but does not appear to have any focal deficits. PHYSICAL EXAMINATION: GENERAL: This is an elderly, ill-appearing female who is speaking and is coherent; however and oriented, but she is quite weak. She has very pale sclerae. HEENT: Pupils are small and not really reacting. NECK: She has no evidence of scleral icterus. Her oral mucosa is dry. Tongue is midline. She has no obvious oral mucosal lesions. NECK: Supple. She has no neck vein distention. I detect no supraclavicular or cervical lymphadenopathy or carotid bruits. She has a well-healed midline sternotomy incision. HEART: She has a click from her mechanical valves. She has an irregularly irregular rhythm. LUNGS: She does have decreased breath sounds in the right base. ABDOMEN: A bit protuberant, soft, nontender. No evidence of ascites. EXTREMITIES: The lower extremities do have hemosiderin deposition. Her feet are warm and well perfused and I can palpate very faint pedal pulses. She has no joint effusions. NEUROLOGICAL: She is very slow to react, but moves all extremities to command. DATA: I reviewed a CT scan from a few weeks ago and her x-ray and she does have an increasing right pleural effusion. Despite the fact her INR is 3.1 and the fact that her white count is normal, I am concerned enough about her that I think I am going to go ahead and do a thoracentesis today. CHARU
--- NOTE | 2016-06-28 20:32 | Hospitalist Progress Note ---
Hospitalist Progress Note Date of Service Jun 28, 2016. Subjective patient was short of breath this morning feels much better after thoracentesis Medications Medications (Trade) Dose Ordered Sig/Albin Route Start Time Stop Time Status Last Admin Dose Admin Benzonatate (Tessalon Perles Cap) 100 mg TID PO 06/27/16 21:00 07/27/16 20:59 06/28/16 13:27 100 MG Objective Vital Signs Date Time Temp Pulse Resp B/P Pulse Ox O2 Delivery O2 Flow Rate FiO2 06/28/16 19:42 36.8 64 18 118/61 96 Nasal Cannula 1.0 06/28/16 19:38 97 Nasal Cannula 1.0 06/28/16 19:36 70 16 97 Nasal Cannula 1.0 06/28/16 16:00 99 Nasal Cannula 2.0 06/28/16 15:31 36.7 63 63 113/66 99 Nasal Cannula 2.0 06/28/16 14:07 71 20 96 Nasal Cannula 2.0 06/28/16 12:00 Nasal Cannula 2.0 06/28/16 11:29 36.9 65 18 124/66 98 2.0 06/28/16 08:01 73 06/28/16 08:00 Nasal Cannula 2.0 06/28/16 07:42 36.7 63 20 134/63 96 2.0 06/28/16 07:32 94 06/28/16 07:00 64 20 97 Room Air 06/28/16 04:33 Nasal Cannula 2.0 06/28/16 03:08 36.8 70 20 130/60 93 Nasal Cannula 2.0 06/28/16 01:13 71 20 93 Room Air 06/28/16 00:06 Nasal Cannula 2.0 06/27/16 23:24 36.8 71 22 120/62 91 Nasal Cannula 1.0 Physical Exam General Appearance: WD/WN Eyes: normal inspection Neck: trachea midline Respiratory/Chest: no accessory muscle use (decreased breath sound on right base) Cardiovascular: regular rate, rhythm Abdomen: normal bowel sounds Extremities: normal range of motion Laboratory Results Last 24 Hours Test 06/28/16 00:00 06/28/16 05:36 06/28/16 06:49 06/28/16 09:15 Pleural Fluid pH 7.33 White Blood Count 6.87 K/uL Red Blood Count 3.31 M/uL Hemoglobin 8.6 g/dL Hematocrit 27.6 % Mean Corpuscular Volume 83.4 fL Mean Corpuscular Hemoglobin 26.0 pg Mean Corpuscular Hemoglobin Concent 31.2 g/dl RDW Standard Deviation 54.1 fL RDW Coefficient of Variation 17.5 % Platelet Count 261 K/uL Mean Platelet Volume 9.6 fL Prothrombin Time 35.1 SECONDS Prothromb Time International Ratio 3.1 Sodium Level 138 mmol/L Potassium Level 4.2 mmol/L Chloride Level 107 mmol/L Carbon Dioxide Level 22 mmol/L Anion Gap 9.0 mmol/L Blood Urea Nitrogen 56 mg/dl Creatinine 1.80 mg/dl Est Creatinine Clear Calc Drug Dose 26.8 ml/min Estimated GFR () 31.6 Estimated GFR (Non- 27.2 BUN/Creatinine Ratio 31.3 Random Glucose 79 mg/dl Calcium Level 8.5 mg/dl Bedside Glucose 103 mg/dl Random Vancomycin Level 14.2 mcg/ml Test 06/28/16 11:18 06/28/16 14:00 06/28/16 14:22 06/28/16 16:10 Bedside Glucose 121 mg/dl 102 mg/dl Pleural Fluid Source RIGHT LUNG Pleural Fluid Color RED Pleural Fluid Appearance CLOUDY Pleural Fluid WBC 511 /uL Pleural Fluid RBC 79063 /uL Pleural Fluid Polynuclear WBCs % 49.8 % Pleural Fluid Mononuclear WBCs % 50.2 % Pleural Fluid Total Protein 3.9 g/dl Pleural Fluid LDH 125 IU Pleural Fluid Glucose 119 mg/dl Pleural Fluid Amylase 25 U/L Blood Gas Sample Site R Brachial Bedside Blood Gas pH (LAB) 7.32 Bedside Blood Gas pCO2 (LAB) 41 mmHg Bedside Blood Gas pO2 (LAB) 64 mmHg Bedside Blood Gas HCO3 (LAB) 21 meq/L Bedside Blood Gas Total CO2 22 mEq/l Bedside Blood Gas Base Excess (LAB) -5.0 meq/L Bedside Blood Gas O2 Saturation 90.0 % Warren Test NA Assessment and Plan (1) CHF (congestive heart failure) Assessment & Plan: On imdur will restart lasix tomorrow (2) Pneumonia Assessment & Plan: continue imipinum Thoracentesis performed fluid sent for cultures (3) COPD exacerbation (4) Anemia
[2016-06-28] MEDS: EZETIMIBE 10MG TAB PO SCH (21:18)
[2016-06-28] MEDS: DIAZEPAM 5MG TAB PO SCH (21:18)
[2016-06-28] MEDS: MONTELUKAST SOD 10 MG TAB PO SCH (21:19)
[2016-06-29] VITALS (15 sets, daily range): BP systolic 105–138; BP diastolic 37–65; PULSE 50–74; TEMP 36.7–37; O2SAT 91–97
[2016-06-29] MEDS: LEVALBUTEROL 1.25MG/0.5ML NEB INH SCH ×3 (02:11→14:00)
[2016-06-29] MEDS: IMIPENEM-CILASTATIN 200 MG in DEXTROSE 5% 100ML 100 ML IV SCH ×3 (05:17→18:30)
[2016-06-29] MEDS: LEVOTHYROXINE 175 MCG TAB PO SCH (05:17)
[2016-06-29] MEDS: GEMFIBROZIL 600 MG TAB PO SCH ×2 (05:19→20:55)
[2016-06-29 06:17] LABS: HEMATOCRIT 26.9 % (37-47); MEAN CELL VOLUME 82.3 fL (80-100); MEAN CORPUSCULAR HEMOGLOBIN 25.7 pg (25-34); MEAN CORPUSCULAR HGB CONC 31.2 g/dl (32-36); MEAN PLATELET VOLUME 9.3 fL (7.4-10.4); PLATELET COUNT 260 K/uL (130-400); RED BLOOD COUNT 3.27 M/uL (4.2-5.4); WHITE BLOOD COUNT 6.32 K/uL (4.8-10.8)
[2016-06-29 06:22] LABS: INR 2.1 (0.9-1.1); PROTHROMBIN TIME (PATIENT) 23.2 SECONDS (9.0-12.0)
[2016-06-29 06:42] LABS: BUN/CREATININE RATIO 32.2 (10-20); CALCIUM 8.7 mg/dl (8.5-10.1); CREATININE 1.7 mg/dl (0.60-1.20); POTASSIUM 4.3 mmol/L (3.5-5.1)
[2016-06-29] MEDS: INSULIN ASPART 100 UNITS/ML 3 ML PEN SC SCH ×4 (07:00→20:54)
[2016-06-29] MEDS: IPRATROPIUM BROMIDE NEB SOLN 0.02% 2.5 ML VIAL INH SCH ×2 (07:08→14:00)
[2016-06-29] MEDS: CYANOCOBALAMIN 500 MCG TAB (VIT B-12) PO SCH (07:46)
[2016-06-29] MEDS: ISOSORBIDE MONONITRATE 30 MG TABCR PO SCH (07:47)
[2016-06-29] MEDS: DIGOXIN 0.125 MG TAB PO SCH (07:47)
[2016-06-29] MEDS: LACTOBACILLUS ACIDOPHILUS (FLORANEX) TAB PO SCH ×3 (07:47→16:51)
[2016-06-29] MEDS: BENZONATATE 100MG CAP PO SCH ×3 (07:48→20:55)
[2016-06-29] MEDS: PYRIDOXINE HCL 50 MG TAB PO SCH (07:48)
[2016-06-29] MEDS: FEXOFENADINE HCL 180 MG TAB PO SCH (07:48)
[2016-06-29] MEDS: KETOROLAC 0.5% OP SOLN 3 ML BTL OPL SCH ×2 (07:49→20:56)
[2016-06-29] MEDS: CHOLECALCIFEROL 1000 INTER.UNIT TAB PO SCH (07:49)
[2016-06-29] MEDS: METOPROLOL SUCC 50MG EXT REL TAB PO SCH (07:49)
[2016-06-29] MEDS: INSULIN GLARGINE SOLOSTAR 100 UNITS/ML 3 ML PEN SC SCH ×2 (07:54→20:55)
--- NOTE | 2016-06-29 08:25 | DIAGNOSTIC IMAGING REPORT ---
CHEST ONE VIEW PORTABLE HISTORY: pleural effusion COMPARISON: Chest 06/28/2016. FINDINGS: The heart remains enlarged. A cardiac valve prosthesis. Left-sided single lead pacemaker. Poststernotomy changes. No pneumothorax. Mild interstitial pulmonary edema and a right basilar opacity/effusion. The right basilar opacity/effusion has improved. IMPRESSION: 1. Mild interstitial pulmonary edema which is slightly progressed. 2. The right basilar opacity/effusion has improved. No pneumothorax. 3. Cardiomegaly. Electronically signed by: Lalito Villavicencio M.D. 06/29/2016 8:22 AM Dictated Date/Time: 06/29/2016 8:20 AM
[2016-06-29] MEDS: GUAIFENESIN/CODEINE 200MG/20MG 10ML UDC PO PRN (09:16)
[2016-06-29] MEDS: PrednisoLONE ACET 1% OP SUSP 5 ML BTL OPL SCH ×4 (09:26→20:56)
--- NOTE | 2016-06-29 10:14 | SURGERY PROGRESS NOTE ---
DATE: 06/29/2016 DATE: 06/29/2016. Ms. Morales was seen on 06/29/2016. She looks better. She states that she feels much better. Her lungs sound better. Her x-ray looks quite good. This fluid does not appear to be an empyema. It does not appear to be malignant as it is a transudate. We will continue to follow from a distance. I will be curious to see if this is a parapneumonic effusion which will subside or she will require further drainage.
[2016-06-29] MEDS ORDERED: FUROSEMIDE INJ 40 MG in SYRINGE 0 ML IV ONE (12:00)
[2016-06-29] MEDS: FUROSEMIDE INJ 40 MG in SYRINGE 0 ML IV SCH (16:51)
[2016-06-29] MEDS: WARFARIN SOD 4 MG TAB PO SCH (16:51)
--- NOTE | 2016-06-29 18:13 | Hospitalist Progress Note ---
Hospitalist Progress Note Date of Service Jun 29, 2016. Subjective Patient is more short of breath this AM. Respiratory: + cough, + shortness of breath Objective Vital Signs Date Time Temp Pulse Resp B/P Pulse Ox O2 Delivery O2 Flow Rate FiO2 06/29/16 16:00 96 Room Air 06/29/16 15:39 36.7 66 20 138/63 97 Room Air 06/29/16 14:00 64 16 96 Room Air 06/29/16 12:00 97 Room Air 06/29/16 11:44 37.0 69 16 118/64 95 Room Air 06/29/16 08:00 93 Room Air 06/29/16 07:47 73 06/29/16 07:08 70 16 97 Nasal Cannula 0.5 06/29/16 07:00 36.8 50 20 138/63 96 Room Air 06/29/16 04:00 93 Room Air 06/29/16 03:48 37.0 73 18 128/65 91 Room Air 06/29/16 02:11 74 14 93 Room Air 06/28/16 23:59 95 Room Air 06/28/16 23:09 58 16 95 Room Air 06/28/16 22:54 36.8 64 18 125/53 96 Room Air 06/28/16 19:42 36.8 64 18 118/61 96 Nasal Cannula 1.0 06/28/16 19:38 97 Nasal Cannula 1.0 06/28/16 19:36 70 16 97 Nasal Cannula 1.0 Physical Exam General Appearance: WD/WN, no apparent distress ENT: hearing grossly normal Respiratory/Chest: normal breath sounds Cardiovascular: regular rate, rhythm Abdomen: + distended Extremities: normal range of motion Neurologic/Psychiatric: alert Laboratory Results Patient Name: MAGNUS ZIEGLER Unit Number: [id number] Dictated: 06/29/16819 Transcribed: 06/29/16819 [employer] Printed Date/Time: [~ rep prt dt]/[~ rep prt tm] [~ rep ct labl] - [~ rep ct ivnm] [facility] [place] [address] Dictated: 06/29/16819 Transcribed: 06/29/16819 [employer] Printed Date/Time: [~ rep prt dt]/[~ rep prt tm] [~ rep ct labl] - [~ rep ct ivnm] [~ rep ct add3]] CHEST ONE VIEW PORTABLE HISTORY: pleural effusion COMPARISON: Chest 06/28/2016. FINDINGS: The heart remains enlarged. A cardiac valve prosthesis. Left-sided single lead pacemaker. Poststernotomy changes. No pneumothorax. Mild interstitial pulmonary edema and a right basilar opacity/effusion. The right basilar opacity/effusion has improved. IMPRESSION: 1. Mild interstitial pulmonary edema which is slightly progressed. 2. The right basilar opacity/effusion has improved. No pneumothorax. 3. Cardiomegaly. Electronically signed by: Lalito Villavicencio M.D. 06/29/2016 8:22 AM Dictated Date/Time: 06/29/2016 8:20 AM The status of this report is Signed. Draft = Not yet reviewed or approved by Radiologist. Signed = Reviewed and approved by Radiologist. <AttendingPhy>Niles Estrada M.D.</AttendingPhy> <FamilyPhy>Phoenix Klein III, CRNP</FamilyPhy> <PrimaryPhy>Phoenix Klein III, CRNP</PrimaryPhy> < UnitNumber>[id number]</UnitNumber> <VisitNumber>[id number]</VisitNumber> < PatientName>MAGNUS ZIEGLER</PatientName> <DateOfBirth>1940</DateOfBirth> < Location>[facility]</Location> <ServiceDate>06/26/16</ServiceDate> <MNE>ESINDI</MNE> < OrderingPhy>Sabas Cool</OrderingPhy> <OrderingPhyMNE>f rep ord dr mary</OrderingPhyMNE> <DictatingPhyMNE>f rep dict dr mary</DictatingPhyMNE> < CCListMNE>f rep ct mne</CCListMNE> <AdmittingPhyMNE>f pt admit dr mary</ AdmittingPhyMNE> <AttendingPhyMNE>f pt attend dr mary</AttendingPhyMNE> <ConsultingPhyMNE>f pt consult dr mary</ConsultingPhyMNE> <FamilyPhyMNE>f pt fam dr mary</FamilyPhyMNE> <OtherPhyMNE>f pt other dr mary</OtherPhyMNE> < PrimaryPhyMNE>f pt prim care dr mary</PrimaryPhyMNE> <ReferringPhyMNE>f pt referring dr mary</ReferringPhyMNE> Last 24 Hours Test 06/28/16 21:02 06/29/16 05:50 06/29/16 06:31 06/29/16 10:44 Bedside Glucose 146 mg/dl 104 mg/dl 164 mg/dl White Blood Count 6.32 K/uL Red Blood Count 3.27 M/uL Hemoglobin 8.4 g/dL Hematocrit 26.9 % Mean Corpuscular Volume 82.3 fL Mean Corpuscular Hemoglobin 25.7 pg Mean Corpuscular Hemoglobin Concent 31.2 g/dl RDW Standard Deviation 54.4 fL RDW Coefficient of Variation 17.9 % Platelet Count 260 K/uL Mean Platelet Volume 9.3 fL Prothrombin Time 23.2 SECONDS Prothromb Time International Ratio 2.1 Sodium Level 138 mmol/L Potassium Level 4.3 mmol/L Chloride Level 107 mmol/L Carbon Dioxide Level 24 mmol/L Anion Gap 7.0 mmol/L Blood Urea Nitrogen 55 mg/dl Creatinine 1.70 mg/dl Est Creatinine Clear Calc Drug Dose 28.1 ml/min Estimated GFR () 33.8 Estimated GFR (Non- 29.2 BUN/Creatinine Ratio 32.2 Random Glucose 98 mg/dl Calcium Level 8.7 mg/dl Test 06/29/16 16:23 Bedside Glucose 83 mg/dl Diagnostic Results Interpretation Summary * Name: MAGNUS ZIEGLER Study Date: 06/27/2016 09:36 AM BP: 154/69 mmHg * Patient Location: [facility]\\38\S\1 HR: 70 * : 1940 (M/d/yyyy) Gender: Female Height: 63 in * Age: 76 yrs Ethnicity: [place] Weight: 170 lb * Ordering Physician: Robyn Abernathy * Referring Physician: Yenifer Winters * Performed By: Itzel Wan * * Reason For Study: CHF * BSA: 1.8 m2 * -- Conclusions -- * There is mild to moderate tricuspid regurgitation. * There is moderate asymmetric left ventricular hypertrophy. * Left ventricular systolic function is normal. * The right ventricle is mild to moderately dilated. * The left atrium is severely dilated. * The right atrium is moderate to severely dilated. * Mild to moderate aortic regurgitation. * There is a mechanical mitral valve. * Normal prosthetic mitral valve gradients. * Right ventricular systolic pressure is elevated at >60mmHg.Compared to an echocardiogram from 2015, the systolic function is now normal. PUlmonary pressures are higher. Procedure Details * A complete two-dimensional transthoracic echocardiogram was performed (2D, M- mode, Doppler and color flow Doppler). Left Ventricle * The left ventricle is normal in size. * There is moderate asymmetric left ventricular hypertrophy. * Ejection Fraction = 60-65%. * Left ventricular systolic function is normal. * Diastolic function not well characterized * Septal motion is consistent with post-operative state. Right Ventricle * The right ventricle is mild to moderately dilated. * The right ventricular systolic function is borderline reduced. Atria * The left atrium is severely dilated. * The right atrium is moderate to severely dilated. Mitral Valve * There is a mechanical mitral valve. * Normal prosthetic mitral valve gradients. Tricuspid Valve * There is mild to moderate tricuspid regurgitation. * Right ventricular systolic pressure is elevated at >60mmHg. Aortic Valve * The aortic valve is tricuspid. The leaflet thickness if normal. There is no aortic stenosis, and no significant insufficiency. * No hemodynamically significant valvular aortic stenosis. * Mild to moderate aortic regurgitation. Great Vessels * The aortic root and proximal ascending aorta are normal sized. Pericardium/Pleural * There is no pericardial effusion. MMode 2D Measurements and Calculations IVSd 2.4 cm IVSs 2.1 cm LVIDd 4.1 cm LVIDs 2.8 cm LVPWd 1.7 cm LVPWs 2.1 cm IVS/LVPW 1.4 FS 33.0 % EDV(Teich) 75.9 ml ESV(Teich) 28.8 ml EF(Teich) 62.0 % EDV(cubed) 70.9 ml ESV(cubed) 21.3 ml EF(cubed) 69.9 % % IVS thick -10.20 % % LVPW thick 18.5 % LV mass(C)d 412.7 grams LV mass(C)dI 228.7 grams/m\S\2 LV mass(C)s 266.6 grams LV mass(C)sI 147.7 grams/m\S\2 SV(Teich) 47.0 ml SI(Teich) 26.1 ml/m\S\2 SV(cubed) 49.6 ml SI(cubed) 27.5 ml/m\S\2 ACS 1.4 cm LA dimension 4.4 cm asc Aorta Diam 3.3 cm LVOT diam 1.6 cm LVOT area 2.1 cm\S\2 LVAd ap4 20.3 cm\S\2 LVLd ap4 7.2 cm EDV(MOD-sp4) 48.5 ml EDV(sp4-el) 48.8 ml LVAs ap4 11.3 cm\S\2 LVLs ap4 5.5 cm ESV(MOD-sp4) 20.6 ml ESV(sp4-el) 19.6 ml EF(MOD-sp4) 57.5 % EF(sp4-el) 59.8 % LVAd ap2 31.8 cm\S\2 LVLd ap2 7.7 cm EDV(MOD-sp2) 112.3 ml EDV(sp2-el) 110.9 ml LVAs ap2 18.7 cm\S\2 LVLs ap2 7.2 cm ESV(MOD-sp2) 41.6 ml ESV(sp2-el) 40.9 ml EF(MOD-sp2) 62.9 % EF(sp2-el) 63.1 % LVLd %diff 6.9 % EDV(MOD-bp) 74.8 ml LVLs %diff 23.8 % ESV(MOD-bp) 33.4 ml EF(MOD-bp) 55.3 % Assessment and Plan (1) CHF (congestive heart failure) Assessment & Plan: Normal eF with Mitral Valve replacement, diastolic dysfunction with elevated right sided pressures. Lasix 40 mg iv bid and ask Cardiology and Pulmonary to see. S/p thoracentesis with 1.5 liters removed. Weight is decreasing despite the patients worsening symptoms (2) Pneumonia Assessment & Plan: With no leukocytosis or positive cultures her presentation may be most consistent with heart failure. Will leave present antibiotics awaiting final culture results from pleural fluid. (3) COPD exacerbation (4) Anemia
[2016-06-29] MEDS: MONTELUKAST SOD 10 MG TAB PO SCH (20:55)
[2016-06-29] MEDS: DIAZEPAM 5MG TAB PO SCH (20:55)
[2016-06-29] MEDS: EZETIMIBE 10MG TAB PO SCH (20:55)
[2016-06-29] MEDS: LEValbuterol HFA 15GM INHALER INH SCH (20:56)
[2016-06-29] MEDS: IPRATROPIUM BROMIDE HFA INHALER INH SCH (20:56)
[2016-06-30] VITALS (8 sets, daily range): BP systolic 102–137; BP diastolic 40–56; PULSE 60–74; TEMP 36.9–37.1; O2SAT 93–98
[2016-06-30] MEDS: LEValbuterol HFA 15GM INHALER INH SCH ×5 (00:19→20:39)
[2016-06-30] MEDS: IPRATROPIUM BROMIDE HFA INHALER INH SCH ×5 (00:19→20:39)
[2016-06-30] MEDS: IMIPENEM-CILASTATIN 200 MG in DEXTROSE 5% 100ML 100 ML IV SCH ×5 (00:19→23:18)
[2016-06-30] MEDS: GUAIFENESIN/CODEINE 200MG/20MG 10ML UDC PO PRN (04:22)
[2016-06-30] MEDS: LEVOTHYROXINE 175 MCG TAB PO SCH (05:32)
[2016-06-30] MEDS: GEMFIBROZIL 600 MG TAB PO SCH ×2 (05:32→20:40)
[2016-06-30 06:00] LABS: HEMATOCRIT 26.1 % (37-47); MEAN CELL VOLUME 81.6 fL (80-100); MEAN CORPUSCULAR HEMOGLOBIN 25.9 pg (25-34); MEAN CORPUSCULAR HGB CONC 31.8 g/dl (32-36); MEAN PLATELET VOLUME 9.1 fL (7.4-10.4); PLATELET COUNT 235 K/uL (130-400); WHITE BLOOD COUNT 5.41 K/uL (4.8-10.8)
[2016-06-30 06:15] LABS: INR 1.8 (0.9-1.1); PROTHROMBIN TIME (PATIENT) 19.4 SECONDS (9.0-12.0)
[2016-06-30 06:46] LABS: CALCIUM 8.5 mg/dl (8.5-10.1); CREATININE 1.8 mg/dl (0.60-1.20); POTASSIUM 4.1 mmol/L (3.5-5.1)
[2016-06-30] MEDS: INSULIN ASPART 100 UNITS/ML 3 ML PEN SC SCH ×4 (07:00→20:38)
[2016-06-30] MEDS: CYANOCOBALAMIN 500 MCG TAB (VIT B-12) PO SCH (08:17)
[2016-06-30] MEDS: METOPROLOL SUCC 50MG EXT REL TAB PO SCH (08:17)
[2016-06-30] MEDS: CHOLECALCIFEROL 1000 INTER.UNIT TAB PO SCH (08:17)
[2016-06-30] MEDS: BENZONATATE 100MG CAP PO SCH ×3 (08:17→20:40)
[2016-06-30] MEDS: DIGOXIN 0.125 MG TAB PO SCH (08:17)
[2016-06-30] MEDS: ISOSORBIDE MONONITRATE 30 MG TABCR PO SCH (08:17)
[2016-06-30] MEDS: PYRIDOXINE HCL 50 MG TAB PO SCH (08:18)
[2016-06-30] MEDS: LACTOBACILLUS ACIDOPHILUS (FLORANEX) TAB PO SCH ×3 (08:18→15:52)
[2016-06-30] MEDS: KETOROLAC 0.5% OP SOLN 3 ML BTL OPL SCH ×2 (08:19→20:39)
[2016-06-30] MEDS: FEXOFENADINE HCL 180 MG TAB PO SCH (08:19)
[2016-06-30] MEDS: PrednisoLONE ACET 1% OP SUSP 5 ML BTL OPL SCH ×4 (08:20→20:39)
[2016-06-30] MEDS: INSULIN GLARGINE SOLOSTAR 100 UNITS/ML 3 ML PEN SC SCH ×2 (08:24→20:38)
[2016-06-30] MEDS ORDERED: FUROSEMIDE INJ 40 MG in SYRINGE 0 ML IV SCH (09:00)
[2016-06-30] MEDS: FUROSEMIDE INJ 40 MG in SYRINGE 0 ML IV SCH ×2 (09:21→15:51)
--- NOTE | 2016-06-30 12:13 | SURGERY PROGRESS NOTE ---
DATE: 06/30/2016 Ms. Moralse is seen today on 06/30/2016. Two days ago, I performed a thoracentesis and she really improved with that. Today, she states she cannot "believe the difference." Her saturations are ranged from 93%-96% on room air. Her right base still has good aeration. X-ray yesterday showed no evidence of reaccumulation. She is still coughing up some yellow sputum and is able to clear it much better now. At this point, I would simply continue to follow her. This certainly appears to be a transudate. Her glucose is also 119, which would argue against empyema. The pH is 7.33. We will continue to follow with periodic x-rays.
--- NOTE | 2016-06-30 12:18 | Cardiology Consultation ---
Cardiology Consultation Date of Consultation: Jun 30, 2016. Requesting Physician: Dr. Webster Reason for Consultation: CHF Pt evaluation today including: conversation w/ patient, physical exam, lab review, review of studies, review of inpatient medication list History of Present Illness This is a 73-year-old woman with a history of mitral valve replacement 1985 with a Dowd-Lee valve, nonobstructive coronary artery disease identified in 2006, permanent atrial fibrillation, hypertension and a single-chamber pacemaker implanted in 1993 and replaced in 2008. She has also had CVAs in the past and has diabetes, COPD and diastolic congestive heart failure. She was admitted on 06/26/2016 with shortness of breath and a right lower lobe consolidation and effusion. She had a thoracentesis performed with 1-1/2 L removed. She feels better, her shortness of breath is markedly improved. She does have peripheral edema which she feels is new. Past Medical/Surgical History (1) COPD (chronic obstructive pulmonary disease) (2) Anemia (3) CKD (chronic kidney disease) (4) Atrial fibrillation (5) History of cholecystectomy (6) Cardiac pacemaker procedure Family History Diabetes mellitus Heart disease Hypertension Social History Smoking Status: Never Smoker History of Alcohol Use: No Review of Systems Constitutional: No fever, No weakness, No weight loss Respiratory: + cough, + shortness of breath Cardiac: No PND, No chest pain, No edema, No orthopnea, No palpitations Abdomen: No GI bleeding, No diarrhea, No nausea, No pain, No vomiting Female : No problem reported Neurologic: No balance problems, No numbness/tingling, No paralysis, No weakness Heme: No abnormal bleeding/bruising, No clotting problems Endo: No fatigue Skin: No problem reported All Other Systems: Reviewed and Negative Allergies Coded Allergies: Penicillins (Verified Allergy, Severe, anaphylaxis 30yrs ago, also broke out with sores, 02/18/16) NOTE: Timentin 05/2003 tolerated without problem Diltiazem (Verified Allergy, Unknown, unknown, 02/18/16) Levofloxacin (Verified Allergy, Unknown, UNKNOWN, 02/18/16) Moxifloxacin (Verified Allergy, Unknown, UNKNOWN, 02/18/16) Aspirin (Verified Adverse Reaction, Intermediate, increased bleeding (on warfarin), 02/18/16) Atorvastatin (Verified Adverse Reaction, Unknown, & Crestor = muscle aches /pains, 02/18/16) NSAIDs (Verified Adverse Reaction, Unknown, AVOID PER DR. HICKS - [id number] , 02/18/16) Nortriptyline (Verified Adverse Reaction, Unknown, choking on food, ) Quinidine (Verified Adverse Reaction, Unknown, flu-like symptoms, 02/18/16) Sulfamethoxazole w/Trimethoprim (Verified Adverse Reaction, Unknown, CONFUSION, 02/18/16) Medications Current Inpatient Medications Medications (Trade) Dose Ordered Sig/Albin Route Start Time Stop Time Status Last Admin Dose Admin Acetaminophen (Tylenol Tab) 650 mg Q4H PRN PO 06/26/16 14:00 07/26/16 13:59 06/27/16 03:52 650 MG Al Hydrox/Mg Hydrox/Simethicone (Maalox Max Susp) 15 ml Q4H PRN PO 06/26/16 14:00 07/26/16 13:59 Magnesium Hydroxide (Milk Of Magnesia Susp) 30 ml Q12H PRN PO 06/26/16 14:00 07/26/16 13:59 Ondansetron HCl (Zofran Inj) 4 mg Q6H PRN IV 06/26/16 14:00 07/26/16 13:59 Polyethylene (Miralax Powder Packet) 17 gm DAILY PRN PO 06/26/16 14:00 07/26/16 13:59 Cyanocobalamin (Vitamin B-12 Tab) 1,000 mcg QAM PO 06/27/16 09:00 07/27/16 08:59 06/30/16 08:17 1,000 MCG Diazepam (Valium Tab) 5 mg HS PO 06/26/16 21:00 07/26/16 20:59 06/29/16 20:55 5 MG Diclofenac Sodium (Voltaren 1% Top Gel) 1 appln QID PRN EXT 06/26/16 14:00 07/26/16 13:59 Digoxin (Lanoxin Tab) 0.125 mg QAM PO 06/27/16 09:00 07/27/16 08:59 06/30/16 08:17 0.125 MG EZETIMIBE (Zetia Tab) 10 mg HS PO 06/26/16 21:00 07/26/16 20:59 06/29/16 20:55 10 MG Fexofenadine HCl (Vickie Tab) 180 mg QAM PO 06/27/16 09:00 07/27/16 08:59 06/30/16 08:19 180 MG Gemfibrozil (Lopid Tab) 600 mg BID PO 06/26/16 21:00 07/26/16 20:59 06/30/16 05:32 600 MG Hydralazine HCl (Apresoline Tab) 25 mg BID PO 06/26/16 21:00 07/26/16 20:59 06/30/16 08:18 25 MG Insulin Glargine (Lantus Solostar Pen) 15 unit BID SC 06/26/16 21:00 07/26/16 20:59 06/30/16 08:24 15 UNIT Isosorbide Mononitrate (Imdur Ext Rel Tab) 30 mg QAM PO 06/27/16 09:00 07/27/16 08:59 06/30/16 08:17 30 MG Lactobacillus Acidophilus (Floranex Tab) 4 tab TIDM PO 06/26/16 16:45 07/26/16 17:59 06/30/16 11:37 4 TAB Levothyroxine Sodium (Synthroid Tab) 175 mcg DAILYBB PO 06/27/16 06:00 07/27/16 06:59 06/30/16 05:32 175 MCG Metoprolol Succinate (Toprol Xl Tab) 100 mg QAM PO 06/27/16 09:00 07/27/16 08:59 06/30/16 08:17 100 MG Montelukast Sodium (Singulair Tab) 10 mg HS PO 06/26/16 21:00 07/26/16 20:59 06/29/16 20:55 10 MG Prednisolone Acetate (Pred Forte 1% Oph Susp) 75 drops QID OPL 06/26/16 17:00 07/26/16 16:59 06/30/16 08:20 75 DROPS Pyridoxine HCl (Vitamin B-6 Tab) 100 mg QAM PO 06/27/16 09:00 07/27/16 08:59 06/30/16 08:18 100 MG Cholecalciferol 1000 inter.unit 1,000 inter.unit DAILY PO 06/27/16 09:00 07/27/16 08:59 06/30/16 08:17 1,000 INTER.UNIT Imipenem/ Cilastatin Sodium/ Dextrose (Primaxin Iv/D5 100ml) 108 ml @ 100 mls/hr Q6H IV 06/26/16 18:00 07/03/16 17:59 06/30/16 11:37 100 MLS/HR Levalbuterol (Xopenex 1.25MG/ 3ML Neb) 1.25 mg Q2H PRN INH 06/26/16 14:30 07/26/16 14:29 Insulin Aspart (novoLOG ASPART) SLIDING SCALE G... ACHS SC 06/26/16 16:00 07/26/16 15:59 06/29/16 20:54 1 UNITS Glucose (Glucose 40% Gel) 15-30 GRAMS 15 GRAMS... UD PRN PO 06/26/16 14:45 07/26/16 14:44 Glucose (Glucose Chew Tab) 4-8 Tablets 4 Tabl... UD PRN PO 06/26/16 14:45 07/26/16 14:44 Dextrose (Dextrose 50% 50ML Syringe) 25-50ML OF 50% DW IV FOR... UD PRN IV 06/26/16 14:45 07/26/16 14:44 Glucagon (Glucagon Inj) 1 mg UD PRN SQ 06/26/16 14:45 07/26/16 14:44 Imipenem/ Cilastatin Sodium (Consult) 1 ea UD PRN N/A 06/26/16 15:45 07/26/16 15:44 Ketorolac Tromethamine (Acular 0.5 Oph Soln) 1 drops AMHS OPL 06/26/16 21:00 07/26/16 20:59 06/30/16 08:19 1 DROPS Benzonatate (Tessalon Perles Cap) 100 mg TID PO 06/27/16 21:00 07/27/16 20:59 06/30/16 08:17 100 MG Codeine Phosphate/ Guaifenesin (Robitussin-AC Sugar Free Syrup) 10 ml Q6H PRN PO 06/27/16 16:45 07/27/16 16:44 06/30/16 04:22 10 ML Warfarin Sodium 4 mg 4 mg DAILY@16 PO 06/29/16 16:00 07/29/16 15:59 06/29/16 16:51 4 MG Furosemide/Syringe (Lasix Inj/ Syringe) 4 ml @ 4 mls/min BID17 IV 06/29/16 17:00 07/29/16 16:59 06/30/16 09:21 4 MLS/MIN Ipratropium [place] (Atrovent Hfa Inhaler) 2 puffs Q6 INH 06/29/16 21:00 07/29/16 20:59 06/30/16 11:38 2 PUFFS Levalbuterol (Xopenex Hfa Inhaler) 2 puffs Q6 INH 06/29/16 21:00 07/29/16 20:59 06/30/16 11:38 2 PUFFS Physical Exam Vital Signs Past 12 Hours Date Time Temp Pulse Resp B/P Pulse Ox O2 Delivery O2 Flow Rate FiO2 06/30/16 11:39 37.0 61 20 134/56 97 Room Air 06/30/16 08:17 66 06/30/16 08:00 Room Air 06/30/16 07:26 37.0 66 16 113/49 94 Room Air 06/30/16 04:00 36.9 74 18 132/51 93 Room Air 06/30/16 04:00 96 Room Air 06/29/16 23:59 96 Room Air Constitutional: General Apperance: heathly-appearing Level of Distress: NAD Psychiatric: Mental Status: active & alert Head: normocephalic Eyes: EOM: EOMI ENMT: normal ENT inspection, hearing grossly normal Neck: supple, no masses Lungs: Respiratory effort: no dyspnea, good air movement Auscultation: breath sounds normal, no wheezing Cardiovascular: Heart Auscultation: no murmurs, no rubs, no gallops, II/ WSM, irregular rate rhythm, pertinent finding (good prosthetic valve sounds) Peripheral Pulses: Bruits: none appreciated Abdomen: Bowel Sounds: normal Inspection & Palpation: soft, no tenderness, guarding & rebound, no masses Musculoskeletal: normal strength (5/5 throughout) Extremities: edema (+2 bilateral) Neurologic: Cranial Nerves: grossly intact Sensation: grossly intact Data Laboratory Results: Last 24 Hours Test 06/29/16 16:23 06/29/16 20:25 06/30/16 05:46 06/30/16 06:29 Bedside Glucose 83 mg/dl 162 mg/dl 114 mg/dl White Blood Count 5.41 K/uL Red Blood Count 3.20 M/uL Hemoglobin 8.3 g/dL Hematocrit 26.1 % Mean Corpuscular Volume 81.6 fL Mean Corpuscular Hemoglobin 25.9 pg Mean Corpuscular Hemoglobin Concent 31.8 g/dl RDW Standard Deviation 53.5 fL RDW Coefficient of Variation 17.8 % Platelet Count 235 K/uL Mean Platelet Volume 9.1 fL Prothrombin Time 19.4 SECONDS Prothromb Time International Ratio 1.8 Sodium Level 139 mmol/L Potassium Level 4.1 mmol/L Chloride Level 105 mmol/L Carbon Dioxide Level 24 mmol/L Anion Gap 10.0 mmol/L Blood Urea Nitrogen 58 mg/dl Creatinine 1.80 mg/dl Est Creatinine Clear Calc Drug Dose 26.5 ml/min Estimated GFR () 31.6 Estimated GFR (Non- 27.2 BUN/Creatinine Ratio 32.0 Random Glucose 105 mg/dl Calcium Level 8.5 mg/dl Test 06/30/16 11:16 Bedside Glucose 104 mg/dl Imaging: Echocardiography shows normal left ventricular function, normal right ventricular function with elevated pulmonary pressures. EKG: Atrial fibrillation, right bundle branch block with intermittent appropriate ventricular pacing Telemetry reviewed: Atrial fibrillation with well-controlled heart rate Recent pacemaker evaluation: Functioning well with excellent characteristics, battery voltage still adequate Assessment & Plan #1. Shortness of breath: Her shortness of breath has improved dramatically and appears to have been primarily pulmonary in origin. It is unlikely that she has significant left sided heart failure given her normal ejection fraction and her improvement in symptoms although it is possible there is a component. She appears to be fluid overloaded to a certain extent and has been losing weight gradually since admission. She still has peripheral edema and perhaps some fluid overload. #2. Peripheral edema: This is probably in part due to her elevated right-sided pressures, although her right ventricular function is normal on recent echocardiography. She does have elevated pulmonary pressures. I would recommend continued diuresis. Her creatinine is abnormal but it has been dropping slightly since admission therefore I think diuresis is not an issue from the preload standpoint. #3. Atrial fibrillation: This is permanent. Her atrial fibrillation rate is well controlled on her current medical regimen. She requires anticoagulation for her valve which will work for her atrial arrhythmia as well. #4. Mitral valve replacement: Clinically and by echocardiography her valve is working well despite its age. Continue with anticoagulation. Thank you for allowing me to participate in her care.
--- NOTE | 2016-06-30 14:22 | PULMONARY CONSULTATION ---
DATE OF CONSULTATION: 06/30/2016 HISTORY OF PRESENT ILLNESS: The patient is a very pleasant 76-year-old female, who carries a history of congestive heart failure with mitral valve replacement at [facility] about 20 years ago and pacer implantation when had been hospitalized here with congestive heart failure, some atelectatic changes at the right base and respiratory distress at the end of May. She was hospitalized on the and discharged on the and actually was fairly stable. Chest x-ray on 06/12/2016 revealed changes consistent with pulmonary edema with small right pleural effusion. A repeat chest x-ray on the showed right basilar opacity consistent with consolidation or atelectasis with pleural effusion. She went home, was home for about 6 days and then readmitted. Dr. Webster has asked me to evaluate the patient from a pulmonary standpoint. The patient has been seen by Dr. Cueva and had a thoracentesis of the right hemithorax performed on the that revealed 1500 mL of rust-colored fluid. It appears is possibly a transudate with a relatively low LDH, protein was 3.9, which is obviously greater at 3.0 by the general criteria, but may be related to treatment for heart failure. The white count was only 511 and does not appear to be an empyema. Chest x-ray did reveal right lower lobe infiltrative process and Dr. Shen has evaluated the patient as well. However, that has improved with removal of the pleural effusion. She states she feels 100% better since the thoracentesis was performed on the . Echocardiogram revealed fairly well preserved left ventricular function with severe biatrial ventricular enlargement with marked amount of pulmonary hypertension related to her mitral valve disease. She denies cough, sputum production, fevers, night sweats, chest pain or weight loss. Has not had any aspiration. She has not had leukocytosis or fever during her hospitalization. Presently, she is eating breakfast. She feels fairly well. PAST MEDICAL HISTORY: Well outlined and includes atrial fibrillation, asthma, congestive heart failure, mitral valve disease, pulmonary hypertension, pancreatitis, urinary tract infections, pacemaker implantation, cholecystectomy, diabetes, history of DVT of the lower extremities and peptic ulcer disease. She has had a hysterectomy for dysfunctional uterine bleeding as well. SOCIAL HISTORY: She smoked while she was in high school for 2 years. 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 She is presently retired, and lives with her family. ALLERGIES: NOTED AND ARE MULTIPLE. MEDICATIONS: Noted. She was treated with doxycycline as an outpatient and then Zithromax and Omnicef. FAMILY HISTORY: Otherwise unremarkable. PHYSICAL EXAMINATION: VITAL SIGNS: Blood pressure 113/49, pulse is 66 and regular, respiratory rate 16, oxygen saturation 94% on room air and she has been afebrile. Her weight is 74.3 kilograms, down from 77.5 kilograms on the . I\T\O; 680 in and 4150 out yesterday. GENERAL: According to the nurses' notes she is fairly stable, had a fairly good night with no complaints. She remains in atrial fibrillation with adequate oxygenation. Refused SCDs. HEENT: Reveals some mild dry crusted blood at both nares, but no evidence of any active epistaxis. Posterior pharynx is normal, with no thrush. NECK: There is no neck vein distention or HJR. No adenopathy is noted. Expansion of the thorax is good with deep inspiration. HEART: Irregular rhythm. Valve sounds are crisp, 2/6 systolic murmur heard at the apex. No gallops are auscultated. LUNGS: Reveal few crackles at the left base with decreased breath sounds at the right base. No fremitus noted. No dullness to percussion is noted. I do not detect any rales. Forced expiratory maneuver is about 1-1/2 seconds with no wheezing, no coughing. ABDOMEN: Soft and nontender. EXTREMITIES: She has +1 edema of the feet. No cyanosis or clubbing is noted. LABORATORY DATA: Blood gas revealed pH 7.32, pCO2 of 41, pO2 of 64. I cannot tell how much oxygen administration was given at that time. BUN is 58, creatinine 1.8 today with a CO2 of 24. INR is 1.8. Urinalysis revealed no significant inflammatory cells. Thoracentesis fluid is noted as above with cultures. AFB smear is pending, the culture is negative, no yeast were noted. White count is 5.4. She has not had a leukocytosis. Hemoglobin is 8.3 and that is slowly decreasing with a platelet count of 235,000. Cytology of the pleural fluid from the is pending. Chest x-ray yesterday revealed improvement in the right basilar opacity and effusion with cardiomegaly and pulmonary edema is noted as well. IMPRESSION: 1. Possible right lower lobe pneumonia. The patient being afebrile, no leukocytosis and the fact that she has improved after the thoracentesis has been performed it is probable that this was just atelectasis at the right base. 2. Right pleural effusion. This appears to be possibly transudative with an elevated protein that would fit with her heart failure. 3. Congestive heart failure with severe pulmonary hypertension. 4. Mitral stenosis, status post mitral valve replacement. 5. Diabetes mellitus. 6. Chronic kidney disease. 7. Anemia. RECOMMENDATIONS: 1. At this point, I believe it will be judicious to continue on the antimicrobial agents perhaps for 7 days. She has been on multiple antibiotics. We will need to watch her for C. diff colitis or vaginal yeast infections. 2. Continue on her present medications for asthma. This has been under very good control, continue with diuresis and treatment of her heart failure. Need to watch her blood pressure with severe pulmonary hypertension with diuresis and watch her oxygenation for reduction in the FVC with diuresis. 3. Await cytology report of the left pleural effusion. If she would develop wheezing or worsening dyspnea, especially associated with wheezing, she needs institution of inhaled steroids such as Asmanex 220 mcg one inhalation b.i.d.; would be recommended. Thanks for asking me to evaluate Ms. Morales. Dr. Thrasher will be on pulmonary service next week and he will follow the patient during her hospital stay. CHARU
[2016-06-30] MEDS: WARFARIN SOD 4 MG TAB PO SCH (15:52)
--- NOTE | 2016-06-30 16:39 | Hospitalist Progress Note ---
Hospitalist Progress Note Date of Service Jun 30, 2016. Subjective Pt evaluation today including: conversation w/ patient Patient has continues SOB however improved from admission Denies any chest pain or fevers Constitutional: No fever Eyes: No worsening of vision ENT: No hearing loss Respiratory: + shortness of breath, No cough, No sputum Cardiovascular: No chest pain Abdomen: No diarrhea, No vomiting Musculoskeletal: No joint pain Female : No dysuria Neurologic: No memory loss Psychiatric: No depression symptoms Objective Vital Signs Date Time Temp Pulse Resp B/P Pulse Ox O2 Delivery O2 Flow Rate FiO2 06/30/16 16:00 Room Air 06/30/16 15:30 36.9 60 20 137/50 97 Room Air 06/30/16 12:00 Room Air 06/30/16 11:39 37.0 61 20 134/56 97 Room Air 06/30/16 08:17 66 06/30/16 08:00 Room Air 06/30/16 07:26 37.0 66 16 113/49 94 Room Air 06/30/16 04:00 36.9 74 18 132/51 93 Room Air 06/30/16 04:00 96 Room Air 06/29/16 23:59 96 Room Air 06/29/16 22:52 36.9 59 18 105/37 96 Room Air 06/29/16 20:00 96 Room Air 06/29/16 19:45 37.0 68 20 127/55 96 Room Air Physical Exam General Appearance: WD/WN, no apparent distress Eyes: normal inspection ENT: normal ENT inspection Neck: supple Respiratory/Chest: chest non-tender, + rales, + rhonchi Cardiovascular: no edema, + irregularly irregular Abdomen: normal bowel sounds, non tender Extremities: normal range of motion 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, no motor/sensory deficits, alert, oriented x 3 Lymphatic: no adenopathy Laboratory Results Last 24 Hours Test 06/29/16 20:25 06/30/16 05:46 06/30/16 06:29 06/30/16 11:16 Bedside Glucose 162 mg/dl 114 mg/dl 104 mg/dl White Blood Count 5.41 K/uL Red Blood Count 3.20 M/uL Hemoglobin 8.3 g/dL Hematocrit 26.1 % Mean Corpuscular Volume 81.6 fL Mean Corpuscular Hemoglobin 25.9 pg Mean Corpuscular Hemoglobin Concent 31.8 g/dl RDW Standard Deviation 53.5 fL RDW Coefficient of Variation 17.8 % Platelet Count 235 K/uL Mean Platelet Volume 9.1 fL Prothrombin Time 19.4 SECONDS Prothromb Time International Ratio 1.8 Sodium Level 139 mmol/L Potassium Level 4.1 mmol/L Chloride Level 105 mmol/L Carbon Dioxide Level 24 mmol/L Anion Gap 10.0 mmol/L Blood Urea Nitrogen 58 mg/dl Creatinine 1.80 mg/dl Est Creatinine Clear Calc Drug Dose 26.5 ml/min Estimated GFR () 31.6 Estimated GFR (Non- 27.2 BUN/Creatinine Ratio 32.0 Random Glucose 105 mg/dl Calcium Level 8.5 mg/dl Test 06/30/16 16:13 Bedside Glucose 103 mg/dl Assessment and Plan Ms. Morales is a 76 y/o female with PMHx of Systolic Congestive Heart Failure S/ P Pacemaker, Mechanical Mitral Valve, Persistent Atrial Fibrillation, COPD/ Asthma, T2DM, CKD Stage IV, Anemia of Chronic Disease, Hypothyroidism, and Pneumonia (May 2016) who presents to the ED complaining of worsening SOB, generalized weakness, and edema. Acute on Chronic Systolic Congestive Heart Failure and Pulmonary HTN: - continue diuresis with IV lasix - echocardiograph reviewed - appreciate cardiology input - continue digoxin HCAP: - continue imipenem day #5 - appreciate infections dz input Persistent Atrial Fibrillation S/P Pacemaker and S/P Mechanical Mitral Valve: Supratherapeutic INR - Digoxin 0.125 mg - Metoprolol 100 mg daily - continue coumadin Pleural Effusion - s/p thoracentesis by Dr. Cueva on 06.28.16 - transudative effusion/await cytology CKD Stage IV: Baseline Cr 1.6-2 - at baseline COPD: - Singulair 10 mg daily T2DM: - Lantus 15 units SC BID and SSI coverage HTN: - Hydralazine 25 mg BID Hypothyroidism: - Synthroid 175 mcg daily HLD: - Zetia 10 mg daily and Lopid 600 mg BID DVT Prophylaxis: coumadin Code Status: FULL RESUSCITATION W/O MECH VENT Disposition: 1-2 days
[2016-06-30] MEDS ORDERED: NURSING VERBAL MED ORDER ONE (19:00)
[2016-06-30] MEDS: DIAZEPAM 5MG TAB PO SCH (20:40)
[2016-06-30] MEDS: MONTELUKAST SOD 10 MG TAB PO SCH (20:40)
[2016-06-30] MEDS: EZETIMIBE 10MG TAB PO SCH (20:40)
[2016-07-01] MEDS: GUAIFENESIN/CODEINE 200MG/20MG 10ML UDC PO PRN (00:20)
[2016-07-01 03:36] VITALS: BP 117/57; PULSE 68; TEMP 36.9; O2SAT 95
[2016-07-01 04:00] VITALS: O2SAT 95
[2016-07-01] MEDS ORDERED: COUGH DROP (SUGAR FREE) LOZ 24 LOZ/1 BOX ONE (04:59)
[2016-07-01] MEDS ORDERED: COUGH DROP (SUGAR FREE) LOZ 24 LOZ/1 BOX PO PRN (05:00)
[2016-07-01] MEDS: IMIPENEM-CILASTATIN 200 MG in DEXTROSE 5% 100ML 100 ML IV SCH ×3 (05:36→18:37)
[2016-07-01] MEDS: GEMFIBROZIL 600 MG TAB PO SCH ×2 (05:36→22:29)
[2016-07-01] MEDS: LEVOTHYROXINE 175 MCG TAB PO SCH (05:36)
[2016-07-01] MEDS: INSULIN ASPART 100 UNITS/ML 3 ML PEN SC SCH ×4 (07:00→22:00)
[2016-07-01 07:20] LABS: HEMATOCRIT 26.7 % (37-47); MEAN CELL VOLUME 82.2 fL (80-100); MEAN CORPUSCULAR HEMOGLOBIN 25.8 pg (25-34); MEAN CORPUSCULAR HGB CONC 31.5 g/dl (32-36); MEAN PLATELET VOLUME 9.9 fL (7.4-10.4); PLATELET COUNT 241 K/uL (130-400); RED BLOOD COUNT 3.25 M/uL (4.2-5.4); WHITE BLOOD COUNT 5.03 K/uL (4.8-10.8)
[2016-07-01 07:28] LABS: INR 1.9 (0.9-1.1); PROTHROMBIN TIME (PATIENT) 20.8 SECONDS (9.0-12.0)
[2016-07-01 07:42] LABS: CALCIUM 8.6 mg/dl (8.5-10.1); CREATININE 1.8 mg/dl (0.60-1.20); POTASSIUM 3.8 mmol/L (3.5-5.1)
[2016-07-01 07:48] VITALS: BP 124/65; PULSE 67; TEMP 36.9; O2SAT 96
[2016-07-01] MEDS: FUROSEMIDE INJ 40 MG in SYRINGE 0 ML IV SCH ×2 (07:51→18:08)
[2016-07-01] MEDS: ISOSORBIDE MONONITRATE 30 MG TABCR PO SCH (07:52)
[2016-07-01] MEDS: LACTOBACILLUS ACIDOPHILUS (FLORANEX) TAB PO SCH ×3 (07:52→18:09)
[2016-07-01] MEDS: CYANOCOBALAMIN 500 MCG TAB (VIT B-12) PO SCH (07:53)
[2016-07-01] MEDS: DIGOXIN 0.125 MG TAB PO SCH (07:53)
[2016-07-01] MEDS: BENZONATATE 100MG CAP PO SCH ×3 (07:54→22:28)
[2016-07-01] MEDS: METOPROLOL SUCC 50MG EXT REL TAB PO SCH (07:54)
[2016-07-01] MEDS: PYRIDOXINE HCL 50 MG TAB PO SCH (07:55)
[2016-07-01] MEDS: FEXOFENADINE HCL 180 MG TAB PO SCH (07:55)
[2016-07-01] MEDS: CHOLECALCIFEROL 1000 INTER.UNIT TAB PO SCH (07:55)
[2016-07-01] MEDS: INSULIN GLARGINE SOLOSTAR 100 UNITS/ML 3 ML PEN SC SCH ×2 (08:02→22:24)
[2016-07-01] MEDS: PrednisoLONE ACET 1% OP SUSP 5 ML BTL OPL SCH ×4 (08:03→22:26)
[2016-07-01] MEDS: KETOROLAC 0.5% OP SOLN 3 ML BTL OPL SCH ×2 (08:03→22:26)
[2016-07-01] MEDS: LEValbuterol HFA 15GM INHALER INH SCH ×4 (09:00→22:25)
[2016-07-01] MEDS: IPRATROPIUM BROMIDE HFA INHALER INH SCH ×4 (09:00→22:25)
[2016-07-01] MEDS: ONDANSETRON INJ 2 MG/ML 2 ML VIAL IV PRN (09:38)
--- NOTE | 2016-07-01 09:49 | CARDIOLOGY PROGRESS NOTE ---
DATE: 07/01/2016 SUBJECTIVE: Mrs. Morales is resting in the bedside chair without progressive chest pain. She does note exertional dyspnea. Denies palpitations. OBJECTIVE: VITAL SIGNS: Blood pressure 124/65 with a regular pulse of 65. Respiratory rate is 20. The patient is afebrile at 36.9 degrees Celsius. Saturations 96% on room air. NECK: Supple with full carotid upstrokes. Jugular venous pressure is 8 cm of water at 90 degrees. CARDIOVASCULAR: Reveals a regular rhythm with crisp mechanical heart sounds. A 2/6 basal systolic ejection murmur is noted. LUNGS: Clear without rales, rhonchi, or wheezes. ABDOMEN: Obese without bruits. EXTREMITIES: Reveal intact radial artery pulses bilaterally. 1+ pretibial edema is noted. DATA: CBC notes a hemoglobin of 8.4, hematocrit 26.6, white count 5.6, and platelet count 241,000. Electrolytes note sodium of 139, potassium chloride 104, bicarbonate 27, BUN 56, creatinine 1.8, and glucose 88. INR is 1.9. environmental monitoring specialist notes atrial fibrillation with occasional pacing. IMPRESSION AND PLAN: 1. Complete right bundle branch block. 2. Peripheral edema -- likely secondary to elevated right-sided pressures in the face of her significant pulmonary hypertension. She has improved with continued diuresis. 2. Permanent atrial fibrillation. 3. Status post mitral valve replacement -- Dowd-Lee 1985. Echocardiogram notes normal function. 4. Nonobstructive coronary artery disease -- cardiac catheterization in 2006, quiescent on current medical regimen. 5. History of diastolic congestive heart failure. 6. Mild to moderate aortic insufficiency. 7. Mild to moderate tricuspid regurgitation. 8. History of cerebrovascular accident. 9. Diabetes mellitus. 10. Chronic obstructive pulmonary disease. MTDD
--- NOTE | 2016-07-01 10:33 | Progress Note ---
Subjective Date of Service: Jul 01, 2016. Subjective Pt evaluation today including: conversation w/ patient, physical exam, chart review, lab review, review of studies, review of inpatient medication list Resting comfortably in bed shortness of breath on exertion improved tolerating room air no productive cough Problem List Medical Problems: (1) Anemia Status: Acute (2) Cat bite of right lower leg with infection Status: Acute (3) Cellulitis Status: Acute (4) Dehydration Status: Acute (5) Fever Status: Acute (6) Fracture of right distal radius Status: Acute (7) PNA (pneumonia) Status: Acute (8) Rapid atrial fibrillation Status: Acute (9) Respiratory distress Status: Acute (10) Right arm fracture Status: Acute Review of Systems Constitutional: No chills, No fever Respiratory: + dyspnea on exertion, No cough, No shortness of breath, No wheezing Cardiac: No chest pain, No orthopnea Abdomen: No diarrhea, No nausea, No pain, No vomiting Musculoskeletal: No joint pain, No muscle pain Objective Vital Signs Date Time Temp Pulse Resp B/P Pulse Ox O2 Delivery O2 Flow Rate FiO2 07/01/16 08:00 Room Air 07/01/16 07:53 65 07/01/16 07:48 36.9 67 20 124/65 96 Room Air 07/01/16 04:00 95 Room Air 07/01/16 03:36 36.9 68 16 117/57 95 Room Air 06/30/16 23:59 94 Room Air 06/30/16 23:55 37.1 66 18 102/40 94 Room Air 06/30/16 20:00 98 Room Air 06/30/16 19:46 36.9 62 18 120/52 98 Room Air 06/30/16 16:00 Room Air 06/30/16 15:30 36.9 60 20 137/50 97 Room Air 06/30/16 12:00 Room Air 06/30/16 11:39 37.0 61 20 134/56 97 Room Air Physical Exam General Appearance: WD/WN, no apparent distress Neck: supple, no adenopathy Respiratory/Chest: chest non-tender, + decreased breath sounds Cardiovascular: no edema, no gallop Abdomen: non tender, soft Neurologic/Psychiatric: alert, oriented x 3 Laboratory Results Last 24 Hours Test 06/30/16 11:16 06/30/16 16:13 06/30/16 20:37 07/01/16 06:37 Bedside Glucose 104 mg/dl 103 mg/dl 131 mg/dl White Blood Count 5.03 K/uL Red Blood Count 3.25 M/uL Hemoglobin 8.4 g/dL Hematocrit 26.7 % Mean Corpuscular Volume 82.2 fL Mean Corpuscular Hemoglobin 25.8 pg Mean Corpuscular Hemoglobin Concent 31.5 g/dl RDW Standard Deviation 53.8 fL RDW Coefficient of Variation 17.7 % Platelet Count 241 K/uL Mean Platelet Volume 9.9 fL Prothrombin Time 20.8 SECONDS Prothromb Time International Ratio 1.9 Sodium Level 139 mmol/L Potassium Level 3.8 mmol/L Chloride Level 104 mmol/L Carbon Dioxide Level 27 mmol/L Anion Gap 8.0 mmol/L Blood Urea Nitrogen 56 mg/dl Creatinine 1.80 mg/dl Est Creatinine Clear Calc Drug Dose 26.4 ml/min Estimated GFR () 31.6 Estimated GFR (Non- 27.2 BUN/Creatinine Ratio 31.0 Random Glucose 88 mg/dl Calcium Level 8.6 mg/dl Test 07/01/16 07:00 Bedside Glucose 94 mg/dl Assessment and Plan (1) CHF (congestive heart failure) (2) Pneumonia (3) COPD exacerbation (4) Anemia Ms. Morales is a 76 y/o female with PMHx of Systolic Congestive Heart Failure S/ P Pacemaker, Mechanical Mitral Valve, Persistent Atrial Fibrillation, COPD/ Asthma, T2DM, CKD Stage IV, Anemia of Chronic Disease, Hypothyroidism, and Pneumonia (May 2016) who presents to the ED complaining of worsening SOB, generalized weakness, and edema. Acute on Chronic Systolic Congestive Heart Failure and Pulmonary HTN: - continue diuresis with IV lasix, good output - echocardiograph reviewed * There is mild to moderate tricuspid regurgitation. * There is moderate asymmetric left ventricular hypertrophy. * Left ventricular systolic function is normal. * The right ventricle is mild to moderately dilated. * The left atrium is severely dilated. * The right atrium is moderate to severely dilated. * Mild to moderate aortic regurgitation. * There is a mechanical mitral valve. * Normal prosthetic mitral valve gradients. * Right ventricular systolic pressure is elevated at >60mmHg.Compared to an echocardiogram from 2015, the systolic function is now normal. PUlmonary pressures are higher. - appreciate cardiology input - continue digoxin HCAP: - continue imipenem day #6 - appreciate infections dz input Persistent Atrial Fibrillation S/P Pacemaker and S/P Mechanical Mitral Valve: Supratherapeutic INR - Digoxin 0.125 mg - Metoprolol 100 mg daily - continue coumadin Pleural Effusion - s/p thoracentesis by Dr. Cueva on 06.28.16 - transudative effusion/await cytology - repeat CXR CKD Stage IV: Baseline Cr 1.6-2 - at baseline COPD: - Singulair 10 mg daily T2DM: - Lantus 15 units SC BID and SSI coverage HTN: - Hydralazine 25 mg BID Hypothyroidism: - Synthroid 175 mcg daily HLD: - Zetia 10 mg daily and Lopid 600 mg BID DVT Prophylaxis: coumadin Code Status: FULL RESUSCITATION W/O MECH VENT
--- NOTE | 2016-07-01 10:52 | SURGERY PROGRESS NOTE ---
DATE: 07/01/2016 Ms. Morales was seen today and remains with excellent saturations. She has had some abdominal complaints today with some vague abdominal pain and relative anorexia. She has had no vomiting. From a pulmonary standpoint, she continues to do well.
--- NOTE | 2016-07-01 11:07 | DIAGNOSTIC IMAGING REPORT ---
SINGLE VIEW CHEST CLINICAL HISTORY: Pleural effusion. FINDINGS: An AP, portable, upright chest radiograph is compared to study dated 06/29/2016. Correlation is made with chest CT dated 10/16/2013. The examination is degraded by portable technique and patient rotation. A single lead cardiac pacemaker is unchanged in position and partially obscures the left mid chest. The patient is status post midline sternotomy and cardiac valve surgery. The heart is enlarged and there is atherosclerotic calcification of the thoracic aorta. Mild pulmonary vascular congestion persists. Nonspecific interstitial thickening is unchanged. There is increasing airspace consolidation and pleural effusion at the right lung base. Linear atelectasis is seen at the left lung base. There is no pneumothorax. The skeletal structures are osteopenic. Degenerative change is seen throughout the thoracic spine. IMPRESSION: 1. There is increasing airspace consolidation pleural effusion at the right lung base as compared to 06/29/2016. The appearance suggests pneumonia/aspiration pneumonitis. Clinical correlation will be required. 2. Cardiomegaly and cardiac pacemaker. Mild pulmonary vascular congestion persists. Electronically signed by: Ventura Kaplan M.D. 07/01/2016 11:05 AM Dictated Date/Time: 07/01/2016 11:02 AM
[2016-07-01 12:09] VITALS: BP 145/63; PULSE 60; TEMP 37; O2SAT 97
[2016-07-01 15:57] VITALS: BP 151/76; PULSE 62; TEMP 36.8; O2SAT 94
--- NOTE | 2016-07-01 16:22 | Pulmonology Progress Note ---
Pulmonary Progress Note Date of Service Jul 01, 2016. Attending Dr. Thrasher Subjective Feeling progressively improved. Reports metallic taste and abdominal discomfort with either the Atrovent or Levalbuterol inhalers. Denies any increased cough, dyspnea or wheeze. Ambulated throughout the hallway with PT this AM without difficulty/limitation. Objective 76-year-old female admitted to [facility] 06/26/2016 with symptoms of dyspnea, productive cough intermittent fever, and orthopnea. PMHx notable for recent admission with pneumonia. Other history indicates CHF and atrial fibrillation, s/p pacemaker placement, RBBB, h/o mechanical MVR, COPD /Asthma, CKD IV, DM II, anemia, hypothyroid, DVT, h/o TIA, and pulmonary HTN. On admission chest x-ray describes moderately sized right-sided pleural effusion with question of additional infiltrative changes. She was treated for hospital-acquired pneumonia with imipenem cilastatin with ID consultation. Echocardiogram 06/27 noted RVSP greater than 60 mmHg with a preserved ejection fraction, severe RV dilation and functioning mechanical valve. 06/28 she underwent right-sided thoracentesis evacuating 1500 milliliters rust-colored sputum (pH: 7.33, Protein: 3.9, LDH: 125, Glucose: 119, amylase; 25, WBC: 511). She had received diuresis prior to thoracentesis. No organisms were cultured. Pathology: pending. CXR from 06/29 with significant improvement in right effusion. Today: - 94-96% RA - Afebrile, HD stable - Wt: 73.8kg, INR: 1.9 - WBC/Hgb/Hct/Plts: 5.03/8.4/26.7/241 - Cr: 1.8 - Imipenem cilastin day #6 - CXR 07/01: Persistent vascular congestion. Increase in right sided pleural fluid with infiltrative changes compared from 06/29. Physical Exam: Constitutional: Well developed, well nourished elderly female sitting in chair at bedside. No acute distress. Head: + facial symmetry Eyes: EOMi, PERRLA, no conjunctival injection Mouth: Mallampati [III]. No erythema, exudate, or post nasal gtt Neck: Trachea midline. No adenopathy or masses Respiratory: Non-labored respirations.Diminished at bases bilaterally Rt > Left. NO wheeze. No clubbing or cyanosis. Cardiovascular: Regular rate. Mechanical click best heard #2. +2 radial pulses. <1s capillary refill. Abdomen: soft, active bowel sounds Integumentary: no rashes, or ecchymosis MSK/Extremities: Moving and developed symmetrically. +2 bilateral LE edema. No calf tenderness. Neurologic: A&O, data recall in-tact. Appropriate affect. Assessment & Plan 76-yo female admitted with dyspnea and right sided pleural effusion and infiltrative change. She responded well to thoracentesis - elevated protein could be secondary to prior diuresis we could consider repeat thoracentesis and obtain albumin levels for confirmation. Clinically she is asymptomatic today - repeat radiograph 07/03. Would complete a nocturnal oximetry study tonight and swallow evaluation to r/o aspiration. Data Medications: Current Inpatient Medications Medications (Trade) Dose Ordered Sig/Albin Route Start Time Stop Time Status Last Admin Dose Admin Acetaminophen (Tylenol Tab) 650 mg Q4H PRN PO 06/26/16 14:00 07/26/16 13:59 06/27/16 03:52 650 MG Al Hydrox/Mg Hydrox/Simethicone (Maalox Max Susp) 15 ml Q4H PRN PO 06/26/16 14:00 07/26/16 13:59 Magnesium Hydroxide (Milk Of Magnesia Susp) 30 ml Q12H PRN PO 06/26/16 14:00 07/26/16 13:59 Ondansetron HCl (Zofran Inj) 4 mg Q6H PRN IV 06/26/16 14:00 07/26/16 13:59 07/01/16 09:38 4 MG Polyethylene (Miralax Powder Packet) 17 gm DAILY PRN PO 06/26/16 14:00 07/26/16 13:59 Cyanocobalamin (Vitamin B-12 Tab) 1,000 mcg QAM PO 06/27/16 09:00 07/27/16 08:59 07/01/16 07:53 1,000 MCG Diazepam (Valium Tab) 5 mg HS PO 06/26/16 21:00 07/26/16 20:59 06/30/16 20:40 5 MG Diclofenac Sodium (Voltaren 1% Top Gel) 1 appln QID PRN EXT 06/26/16 14:00 07/26/16 13:59 Digoxin (Lanoxin Tab) 0.125 mg QAM PO 06/27/16 09:00 07/27/16 08:59 07/01/16 07:53 0.125 MG EZETIMIBE (Zetia Tab) 10 mg HS PO 06/26/16 21:00 07/26/16 20:59 06/30/16 20:40 10 MG Fexofenadine HCl (Vickie Tab) 180 mg QAM PO 06/27/16 09:00 07/27/16 08:59 07/01/16 07:55 180 MG Hydralazine HCl (Apresoline Tab) 25 mg BID PO 06/26/16 21:00 07/26/16 20:59 07/01/16 07:56 25 MG Insulin Glargine (Lantus Solostar Pen) 15 unit BID SC 06/26/16 21:00 07/26/16 20:59 07/01/16 08:02 15 UNIT Isosorbide Mononitrate (Imdur Ext Rel Tab) 30 mg QAM PO 06/27/16 09:00 07/27/16 08:59 07/01/16 07:52 30 MG Lactobacillus Acidophilus (Floranex Tab) 4 tab TIDM PO 06/26/16 16:45 07/26/16 17:59 07/01/16 11:39 4 TAB Levothyroxine Sodium (Synthroid Tab) 175 mcg DAILYBB PO 06/27/16 06:00 07/27/16 06:59 07/01/16 05:36 175 MCG Metoprolol Succinate (Toprol Xl Tab) 100 mg QAM PO 06/27/16 09:00 07/27/16 08:59 07/01/16 07:54 100 MG Montelukast Sodium (Singulair Tab) 10 mg HS PO 06/26/16 21:00 07/26/16 20:59 06/30/16 20:40 10 MG Prednisolone Acetate (Pred Forte 1% Oph Susp) 75 drops QID OPL 06/26/16 17:00 07/26/16 16:59 07/01/16 13:41 75 DROPS Pyridoxine HCl (Vitamin B-6 Tab) 100 mg QAM PO 06/27/16 09:00 07/27/16 08:59 07/01/16 07:55 100 MG Cholecalciferol 1000 inter.unit 1,000 inter.unit DAILY PO 06/27/16 09:00 07/27/16 08:59 07/01/16 07:55 1,000 INTER.UNIT Imipenem/ Cilastatin Sodium/ Dextrose (Primaxin Iv/D5 100ml) 108 ml @ 100 mls/hr Q6H IV 06/26/16 18:00 07/03/16 17:59 07/01/16 11:39 100 MLS/HR Levalbuterol (Xopenex 1.25MG/ 3ML Neb) 1.25 mg Q2H PRN INH 06/26/16 14:30 07/26/16 14:29 Insulin Aspart (novoLOG ASPART) SLIDING SCALE G... ACHS SC 06/26/16 16:00 07/26/16 15:59 06/29/16 20:54 1 UNITS Glucose (Glucose 40% Gel) 15-30 GRAMS 15 GRAMS... UD PRN PO 06/26/16 14:45 07/26/16 14:44 Glucose (Glucose Chew Tab) 4-8 Tablets 4 Tabl... UD PRN PO 06/26/16 14:45 07/26/16 14:44 Dextrose (Dextrose 50% 50ML Syringe) 25-50ML OF 50% DW IV FOR... UD PRN IV 06/26/16 14:45 07/26/16 14:44 Glucagon (Glucagon Inj) 1 mg UD PRN SQ 06/26/16 14:45 07/26/16 14:44 Imipenem/ Cilastatin Sodium (Consult) 1 ea UD PRN N/A 06/26/16 15:45 07/26/16 15:44 Ketorolac Tromethamine (Acular 0.5 Oph Soln) 1 drops AMHS OPL 06/26/16 21:00 07/26/16 20:59 07/01/16 08:03 1 DROPS Benzonatate (Tessalon Perles Cap) 100 mg TID PO 06/27/16 21:00 07/27/16 20:59 07/01/16 13:41 100 MG Codeine Phosphate/ Guaifenesin (Robitussin-AC Sugar Free Syrup) 10 ml Q6H PRN PO 06/27/16 16:45 07/27/16 16:44 07/01/16 00:20 10 ML Warfarin Sodium 4 mg 4 mg DAILY@16 PO 06/29/16 16:00 07/29/16 15:59 06/30/16 15:52 4 MG Furosemide/Syringe (Lasix Inj/ Syringe) 4 ml @ 4 mls/min BID17 IV 06/29/16 17:00 07/29/16 16:59 07/01/16 07:51 4 MLS/MIN Ipratropium [place] (Atrovent Hfa Inhaler) 2 puffs QID INH 06/30/16 17:00 07/30/16 16:59 07/01/16 13:42 2 PUFFS Levalbuterol (Xopenex Hfa Inhaler) 2 puffs QID INH 06/30/16 17:00 07/30/16 16:59 07/01/16 13:42 2 PUFFS Gemfibrozil (Lopid Tab) 600 mg BID@0600,2100 PO 06/30/16 21:00 07/30/16 20:59 07/01/16 05:36 600 MG Menthol (Nice Kristin) 1 kristin PRN PRN PO 07/01/16 05:00 07/31/16 04:59 I & O: 24-Hour Column 07/01/16 08:00 Intake Total 989 ml Output Total 4150 ml Balance -3161 ml Vital Signs: Date Time Temp Pulse Resp B/P Pulse Ox O2 Delivery O2 Flow Rate FiO2 07/01/16 15:57 36.8 62 18 151/76 94 Room Air 07/01/16 15:06 37.0 60 20 97 0.5 07/01/16 12:09 37.0 60 20 145/63 97 Room Air 07/01/16 12:00 Room Air 07/01/16 08:00 Room Air 07/01/16 07:53 65 07/01/16 07:48 36.9 67 20 124/65 96 Room Air 07/01/16 04:00 95 Room Air 07/01/16 03:36 36.9 68 16 117/57 95 Room Air 06/30/16 23:59 94 Room Air 06/30/16 23:55 37.1 66 18 102/40 94 Room Air 06/30/16 20:00 98 Room Air 06/30/16 19:46 36.9 62 18 120/52 98 Room Air Laboratory Results: Last 24 Hours Test 06/30/16 16:13 06/30/16 20:37 07/01/16 06:37 07/01/16 07:00 Bedside Glucose 103 mg/dl 131 mg/dl 94 mg/dl White Blood Count 5.03 K/uL Red Blood Count 3.25 M/uL Hemoglobin 8.4 g/dL Hematocrit 26.7 % Mean Corpuscular Volume 82.2 fL Mean Corpuscular Hemoglobin 25.8 pg Mean Corpuscular Hemoglobin Concent 31.5 g/dl RDW Standard Deviation 53.8 fL RDW Coefficient of Variation 17.7 % Platelet Count 241 K/uL Mean Platelet Volume 9.9 fL Prothrombin Time 20.8 SECONDS Prothromb Time International Ratio 1.9 Sodium Level 139 mmol/L Potassium Level 3.8 mmol/L Chloride Level 104 mmol/L Carbon Dioxide Level 27 mmol/L Anion Gap 8.0 mmol/L Blood Urea Nitrogen 56 mg/dl Creatinine 1.80 mg/dl Est Creatinine Clear Calc Drug Dose 26.4 ml/min Estimated GFR () 31.6 Estimated GFR (Non- 27.2 BUN/Creatinine Ratio 31.0 Random Glucose 88 mg/dl Calcium Level 8.6 mg/dl Test 07/01/16 10:54 Bedside Glucose 129 mg/dl
[2016-07-01] MEDS: WARFARIN SOD 4 MG TAB PO SCH (17:14)
[2016-07-01] MEDS: MONTELUKAST SOD 10 MG TAB PO SCH (22:29)
[2016-07-01] MEDS: DIAZEPAM 5MG TAB PO SCH (22:29)
[2016-07-01] MEDS: EZETIMIBE 10MG TAB PO SCH (22:30)
[2016-07-01 23:09] VITALS: BP 110/50; PULSE 64; TEMP 36.8; O2SAT 93
[2016-07-02] MEDS: IMIPENEM-CILASTATIN 200 MG in DEXTROSE 5% 100ML 100 ML IV SCH ×3 (00:29→12:00)
[2016-07-02] MEDS: ONDANSETRON INJ 2 MG/ML 2 ML VIAL IV PRN (02:00)
[2016-07-02] MEDS: GEMFIBROZIL 600 MG TAB PO SCH (05:47)
[2016-07-02] MEDS: LEVOTHYROXINE 175 MCG TAB PO SCH (05:47)
[2016-07-02] MEDS: INSULIN ASPART 100 UNITS/ML 3 ML PEN SC SCH ×2 (06:30→11:00)
[2016-07-02 07:09] VITALS: BP 104/42; PULSE 61; TEMP 36.8; O2SAT 94
[2016-07-02 07:16] LABS: HEMATOCRIT 26.5 % (37-47); MEAN CORPUSCULAR HEMOGLOBIN 25.7 pg (25-34); MEAN CORPUSCULAR HGB CONC 31.3 g/dl (32-36); MEAN PLATELET VOLUME 9.4 fL (7.4-10.4); PLATELET COUNT 211 K/uL (130-400); RED BLOOD COUNT 3.23 M/uL (4.2-5.4); WHITE BLOOD COUNT 5.13 K/uL (4.8-10.8)
[2016-07-02 07:21] LABS: INR 2.1 (0.9-1.1); PROTHROMBIN TIME (PATIENT) 22.9 SECONDS (9.0-12.0)
[2016-07-02 07:28] VITALS: BP 136/51; PULSE 65
[2016-07-02] MEDS: PrednisoLONE ACET 1% OP SUSP 5 ML BTL OPL SCH ×2 (07:31→12:14)
[2016-07-02] MEDS: ISOSORBIDE MONONITRATE 30 MG TABCR PO SCH (07:32)
[2016-07-02] MEDS: CHOLECALCIFEROL 1000 INTER.UNIT TAB PO SCH (07:32)
[2016-07-02] MEDS: CYANOCOBALAMIN 500 MCG TAB (VIT B-12) PO SCH (07:32)
[2016-07-02] MEDS: KETOROLAC 0.5% OP SOLN 3 ML BTL OPL SCH (07:32)
[2016-07-02] MEDS: PYRIDOXINE HCL 50 MG TAB PO SCH (07:32)
[2016-07-02] MEDS: LACTOBACILLUS ACIDOPHILUS (FLORANEX) TAB PO SCH ×2 (07:32→12:14)
[2016-07-02] MEDS: DIGOXIN 0.125 MG TAB PO SCH (07:33)
[2016-07-02] MEDS: BENZONATATE 100MG CAP PO SCH (07:33)
[2016-07-02 07:34] LABS: BUN/CREATININE RATIO 30.4 (10-20); CALCIUM 8.6 mg/dl (8.5-10.1); POTASSIUM 3.8 mmol/L (3.5-5.1)
[2016-07-02] MEDS: IPRATROPIUM BROMIDE HFA INHALER INH SCH ×2 (07:34→12:00)
[2016-07-02] MEDS: LEValbuterol HFA 15GM INHALER INH SCH ×2 (07:35→12:00)
[2016-07-02] MEDS: METOPROLOL SUCC 50MG EXT REL TAB PO SCH (07:37)
[2016-07-02] MEDS: FEXOFENADINE HCL 180 MG TAB PO SCH (07:37)
[2016-07-02] MEDS: INSULIN GLARGINE SOLOSTAR 100 UNITS/ML 3 ML PEN SC SCH (08:12)
[2016-07-02] MEDS: FUROSEMIDE INJ 40 MG in SYRINGE 0 ML IV SCH (08:13)
--- NOTE | 2016-07-02 09:22 | SURGERY PROGRESS NOTE ---
DATE: 07/02/2016 DATE: 07/02/2016. Mrs. Morales was seen today on 07/02/2016. She is still on room air. She does have some decreased breath sounds in the right base. Her x-ray yesterday showed minimal reaccumulation of the fluid. At this point, I do not think I would intervene again. If she is ready for discharge from a medical standpoint I will follow her up in the office within a week. I would probably hold off doing another thoracentesis and would offer her a PleurX catheter if indeed this reaccumulates.
--- NOTE | 2016-07-02 11:01 | PULMONARY PROGRESS NOTE ---
DATE: 07/02/2016 DATE: 07/02/2016. TIME: 10:15 a.m. SUBJECTIVE: The patient feels overall pretty well. Her breathing is comfortable. She is complaining significantly about a metallic taste related to her inhalers. She has been on levalbuterol inhaler which she also takes at home. She is on ipratropium bromide inhaler which she does not take at home. Thus, I am assuming that is the likely culprit for the bad taste. I do believe she realizes that levalbuterol is the same as she takes at home. She is not having much cough. There has been no sputum production. I had previously seen the patient in my office. I initially saw her on 02/01/2016 and saw her for 1 followup on 04/02/2016. She was not having any significant shortness of breath at that time. She was well maintained just with a rescue inhaler. She carries a history of asthma. Pulmonary function tests were normal or near normal at that time. OBJECTIVE: GENERAL: The patient appears comfortable. VITAL SIGNS: Temperature is 36.8. NECK: Veins were distended even with the patient in the upright position. HEART: Rate is 66. Systolic murmur grade 2/6 was heard. Blood pressure 136/51. LUNGS: The breath sounds are mildly diminished on the right. A few rales were heard bilaterally. No wheezing was present. Respiratory rate was 18 breaths per minute and not labored. Her oxygen saturation on room air done by myself was 96%. She did, however, have an overnight pulse oximetry study done that revealed saturations as low as 78% and she spent approximately 20% of the night with saturations less than 90%. Thus, it would appear she is a candidate for nocturnal oxygen therapy at least. ABDOMEN: Soft and nontender. EXTREMITIES: Showed trace edema. The patient's pleural fluid cytology was negative. CBC today shows a white count of 5.13. Hemoglobin is only 8.3. Platelets are 211,000. INR today is 2.1. Electrolytes show sodium 136, potassium 3.8, chloride 102, bicarbonate 27. BUN was 61 with a creatinine of 2.0. Admission BUN was 66 and admission creatinine was 2.0, although she obviously has some degree of chronic renal insufficiency. Chest x-ray done yesterday suggests some increase in the opacification at the right lung base. Dr. Cueva saw the patient today and he does not plan on doing any other procedures at present but will follow up with her. IMPRESSIONS: 1. Large right pleural effusion of undetermined origin. 2. Possible underlying right lower lobe pneumonia. 3. Congestive heart failure. 4. Severe pulmonary hypertension. 5. Mitral stenosis -- status post mitral valve replacement. COMMENTS AND RECOMMENDATIONS: I will change her inhalers to what she does at home, which is levalbuterol 2 puffs on a p.r.n. basis. A swallow evaluation is still pending. She will need a 2-step before discharge. It appears that she will likely qualify for at least nocturnal oxygen therapy and if she desaturates with ambulation she would then need portable oxygen as well.
--- NOTE | 2016-07-02 12:02 | Discharge Instructions ---
Discharge Instructions Date of Service Jul 02, 2016. Admission Reason for Admission: Acute Systolic Congestive Heart Failure Discharge Discharge Diagnosis / Problem: Acute systolic congestive heart failure exacerbation, pleural effusion Discharge Goals Goal(s): Decrease discomfort, Improve function, Increase independence, Improve disease control, Diagnostic testing, Therapeutic intervention Activity Recommendations Activity Limitations: resume your previous activity Exercise/Sports Limitations: none Shower/Bathe: no limitations . Instructions / Follow-Up Instructions / Follow-Up Patient to be discharged home with home health No need for further antibiotics as patient received full course of antibiotics in the hospital No changes in medications, however if more than 2-3 pound weight gain in 1 day please take extra dose of lasix Please follow up with Dr Cueva in 1 week Please follow up with Dr Phoenix Klein in 1-2 weeks If worsening shortness of breath, fevers, chest pain, please report to ER Current Hospital Diet Patient's current hospital diet: AHA Diet (Heart Healthy), Low Sodium Diet (2gm Na) Discharge Diet Recommended Diet: Low Sodium Diet (2gm Na) Pending Studies Studies pending at discharge: no Laboratory Results Hemoglobin A1c Test 05/27/16 08:13 Range/Units Estimated Average Glucose 123 mg/dl Hemoglobin A1c 5.9 H 4.5-5.6 % Lipid Panel Test 05/27/16 08:13 Range/Units Triglycerides Level 136 0-150 mg/dl Cholesterol Level 135 0-200 mg/dl HDL Cholesterol 26 mg/dl Cholesterol/HDL Ratio 5.2 LDL Cholesterol, Calculated 82 mg/dl Medical Emergencies . Who to Call and When: Medical Emergencies: If at any time you feel your situation is an emergency, please call 911 immediately. . Non-Emergent Contact Non-Emergency issues call your: Primary Care Provider Call Non-Emergent contact if: you have a fever, your pain is worsening . . "Provider Documentation" section prepared by Shabbir Carmona. VTE Core Measure Inpt VTE Proph given/why not?: Warfarin (Coumadin), T.E.D. Stockings, SCD's
[2016-07-02 12:18] VITALS: BP 136/51; PULSE 66; TEMP 36.8; O2SAT 94
--- NOTE | 2016-07-02 13:49 | Discharge Summary ---
Discharge Summary Date of Service Jul 02, 2016. Discharge Summary Admission Date: Jun 26, 2016 at 14:10 Discharge Date: Jul 02, 2016 Discharge Disposition: Home with services Principal Diagnosis: Acute CHF exabcerbation, HCAP, Pleural effusion Immunizations: Have You Had Influenza Vaccine: Yes Influenza Vaccine Date: Dec 23, 2010 History of Tetanus Vaccine?: utd History of Pneumococcal: Yes History of Hepatitis B Vaccine: No Consultations: Pulmonary Thoracic surgery Cardiology Medication Reconciliation Continued Medications: Cholecalciferol (Vitamin D3) 1,000 Unit Cap 1000 INTER.UNIT PO DAILY Cyanocobalamin (Vitamin B-12) 1,000 Mcg Tab 1000 MCG PO QAM Diazepam (Valium) 5 Mg Tab 5 MG PO HS Diclofenac Sodium (Topical) (Diclofenac Sodium) 1 % Gel 1 APPLN TOP QID PRN for Pain-Affected Joints Digoxin (Digoxin) 0.125 Mg Tab 0.125 MG PO QAM Ezetimibe (Ezetimibe) 10 Mg Tab 10 MG PO HS Fexofenadine Hcl (Vickie) 180 Mg Tab 180 MG PO QAM, TAB Furosemide (Furosemide) 40 Mg Tab 40 MG PO QAM Gemfibrozil (Gemfibrozil) 600 Mg Tab 600 MG PO BID TAKE THIS MEDICATION 30 MINUTES BEFORE BREAKFAST AND BEDTIME Hydralazine Hcl (Apresoline) 25 Mg Tab 25 MG PO BID Insulin Aspart (Novolog) 100 Units/Ml Inj 1 DOSE SC ACHS PRN for As Needed COVERAGE DIRECTED BY SLIDING SCALE Insulin Glargine (Lantus Solostar) 100 Unit/Ml Inj 15 UNIT SC BID for 15 Days Isosorbide Mononitrate (Isosorbide Mononitrate ER) 30 Mg Tabcr 30 MG PO QAM Ketorolac Tromethamine (Ophth) (Ketorolac Tromethamine) 0.5 % Pushpa 1 DROP OPL AMHS START 06/12/2016, DURATION 1-2 WEEKS Lactobacillus Acidophilus (Floranex) 1 Tab Tab 4 TAB PO TIDM for 2 Days, TAB Levothyroxine Sodium (Synthroid) 175 Mcg Tab 175 MCG PO DAILY, TAB Metoprolol Succinate (Metoprolol Succinate ER) 50 Mg Tabcr 100 MG PO QAM for 30 Days Misc Natural Products (Osteo Bi-Flex Joint Shiel) 1 Tab Tab 1 TAB PO DAILY Montelukast Sod (Montelukast Sodium) 10 Mg Tab 10 MG PO QAM Polymyxin/Trimethoprim Oph (Polytrim Oph) Soln 1 DROP OPL QID START 06/12/2016, DURATION 1-2 WEEKS Prednisolone Acetate (Prednisolone Acetate) 75 Drops/5 Ml Susp 1 DROP OPL QID START 06/12/2016, DURATION 1-2 WEEKS Pyridoxine (Vitamin B6) 100 Mg Tab 100 MG PO QAM Spironolactone (Aldactone) 50 Mg Tab 50 MG PO DAILY Trospium Chloride (Trospium Chloride) 20 Mg Tab 20 MG PO DAILY Warfarin Sod (Jantoven) 3 Mg Tab 3 MG PO WK, TAB TAKE 3 MG EVERY FRIDAY OR OTHERWISE DIRECTED TO TAKE BY ANTICOAGULATION CLINIC/MD Warfarin Sodium (Coumadin) 4 Mg Tab 4 MG PO 6XWK, TAB TAKE 4 MG EVERY FRIDAY,FRIDAY,FRIDAY,FRIDAY,FRIDAY AND FRIDAY OR OTHERWISE DIRECTED TO TAKE BY ANTICOAGULATION CLINIC/MD Discontinued Medications: Azithromycin (Azithromycin) 250 Mg Tab 250 MG PO DAILY for 1 Day, #1 TAB start tomorrow 06/18/16 Cefdinir (Omnicef) 300 Mg Cap 300 MG PO Q12H, #3 CAP take one evening dose 06/17/16 then take twice a day Doxycycline (Monohydrate) (Doxycycline) 75 Mg Cap for pneumonia Discharge Exam Review of Systems: Constitutional: No chills, No fever Respiratory: No cough, No sputum Cardiovascular: No chest pain, No orthopnea Abdomen: No diarrhea, No nausea, No pain, No vomiting Musculoskeletal: No joint pain, No muscle pain Genitourinary - Female: No dysuria, No urinary frequency, No urinary urgency Neurologic: No numbness/tingling, No paralysis, No weakness Physical Exam: General Appearance: WD/WN, no apparent distress Neck: supple, no adenopathy Respiratory/Chest: lungs clear, normal breath sounds Cardiovascular: no edema, no gallop Neurologic/Psychiatric: alert, oriented x 3 Hospital Course (1) CHF (congestive heart failure) (2) Pneumonia (3) COPD exacerbation (4) Anemia Ms. Morales is a 76 y/o female with PMHx of Systolic Congestive Heart Failure S/ P Pacemaker, Mechanical Mitral Valve, Persistent Atrial Fibrillation, COPD/ Asthma, T2DM, CKD Stage IV, Anemia of Chronic Disease, Hypothyroidism, and Pneumonia (May 2016) who presents to the ED complaining of worsening SOB, generalized weakness, and edema. Acute on Chronic Systolic Congestive Heart Failure and Pulmonary HTN: - continue diuresis with IV lasix, good output, cont lasix on DC with instructions to take extra dose if weight gain 1-2 lbs in 1 day - echocardiograph reviewed * There is mild to moderate tricuspid regurgitation. * There is moderate asymmetric left ventricular hypertrophy. * Left ventricular systolic function is normal. * The right ventricle is mild to moderately dilated. * The left atrium is severely dilated. * The right atrium is moderate to severely dilated. * Mild to moderate aortic regurgitation. * There is a mechanical mitral valve. * Normal prosthetic mitral valve gradients. * Right ventricular systolic pressure is elevated at >60mmHg.Compared to an echocardiogram from 2015, the systolic function is now normal. Pulmonary pressures are higher. - appreciate cardiology input - continue digoxin HCAP: - finished 7 day course of imipenem - appreciate infections disease input Persistent Atrial Fibrillation S/P Pacemaker and S/P Mechanical Mitral Valve: Supratherapeutic INR - Digoxin 0.125 mg - Metoprolol 100 mg daily - continue coumadin Pleural Effusion - s/p thoracentesis by Dr. Cueva on 06.28.16 - transudative effusion, likely from CHF - repeat CXR CKD Stage IV: Baseline Cr 1.6-2 - at baseline COPD: - Singulair 10 mg daily T2DM: - Lantus 15 units SC BID and SSI coverage HTN: - Hydralazine 25 mg BID Hypothyroidism: - Synthroid 175 mcg daily HLD: - Zetia 10 mg daily and Lopid 600 mg BID DVT Prophylaxis: coumadin Code Status: FULL RESUSCITATION W/O MECH VENT Total Time Spent: Greater than 30 minutes This includes examination of the patient, discharge planning, medication reconciliation, and communication with other providers. Discharge Instructions Please refer to the electronic Patient Visit Report (Discharge Instructions) for additional information. Additional Copies To Phoenix Klein III, CRNP
[2016-07-02] MEDS ORDERED: LEValbuterol HFA 15GM INHALER INH PRN (16:00)
[2016-07-22] MEDS ORDERED: OXYC-609 PO (16:07)
[2016-09-25] MEDS ORDERED: WARF4TAB8 PO (11:24)
[2016-11-27] MEDS ORDERED: METO50TA7 PO (11:08)
[2016-12-03] MEDS ORDERED: WARF4TAB PO (10:34)
== END 2016-07-02 13:45 | disposition home health service (06) | DRG 291 ==
LOC: ENRESERVDT → ENRESERVTM → C.EDB 10:49 → C.2T 14:10 → C.MS4W 07-01 13:49
PROVIDERS: ADMIT Hospitalist; ATTEND Hospitalist
PROC: 0W993ZZ Drainage of Right Pleural Cavity, Percutaneous Approach (ICD-10-PCS; principal; 2016-06-28)
DX: I13.0 Hypertensive heart and chronic kidney disease with heart failure and stage 1 through stage 4 chronic kidney disease, or unspecified chronic kidney disease (principal); I50.23 Acute on chronic systolic (congestive) heart failure; J18.9 Pneumonia, unspecified organism; I48.1 Persistent atrial fibrillation; J44.1 Chronic obstructive pulmonary disease with (acute) exacerbation; N18.4 Chronic kidney disease, stage 4 (severe); J90 Pleural effusion, not elsewhere classified; D63.8 Anemia in other chronic diseases classified elsewhere; Z95.0 Presence of cardiac pacemaker; Z95.2 Presence of prosthetic heart valve; E11.22 Type 2 diabetes mellitus with diabetic chronic kidney disease; E03.9 Hypothyroidism, unspecified; I27.2 Other secondary pulmonary hypertension; Z86.73 Personal history of transient ischemic attack (TIA), and cerebral infarction without residual deficits; E78.5 Hyperlipidemia, unspecified; I45.10 Unspecified right bundle-branch block; Z83.3 Family history of diabetes mellitus; Z82.49 Family history of ischemic heart disease and other diseases of the circulatory system; Z86.718 Personal history of other venous thrombosis and embolism; Z87.891 Personal history of nicotine dependence; J45.909 Unspecified asthma, uncomplicated; Z87.440 Personal history of urinary (tract) infections

== ENCOUNTER → 2016-07-08 | Outpatient (CLI) | payer BC ==
[~2016-07-08] MED LIST changes: -AZIT-57 PO; -CEFD1CAP14 PO; +DOXY100C2 PO; +INHALER INH; +INSDGI SC; +METO50TA7 PO; +OXYC-609 PO; +TPRSR/50 PO; +WARF4TAB PO; +WARF4TAB8 PO
--- NOTE | 2016-07-08 11:51 | DIAGNOSTIC IMAGING REPORT ---
CHEST 2 VIEWS ROUTINE CLINICAL HISTORY: Pleural effusion COMPARISON STUDY: 07/01/2016 FINDINGS: The heart remains enlarged. There are postsurgical changes of midline sternotomy and valvular replacement. There is a left subclavian single pole central venous pacemaker present. There is mild vascular congestion. There is a persistent right pleural effusion with associated right basilar airspace opacities.[ IMPRESSION: 1. Cardiomegaly and mild pulmonary vascular congestion unchanged 2. Persistent right pleural effusion with associated right lower lobe atelectasis/consolidation. Electronically signed by: Nikita Culp M.D. 07/08/2016 11:48 AM Dictated Date/Time: 07/08/2016 11:48 AM
== END | disposition home or self-care (01) ==
LOC: C.RAD 11:18
PROVIDERS: ATTEND Surgery
DX: J90 Pleural effusion, not elsewhere classified (principal); I51.7 Cardiomegaly

== ENCOUNTER → 2016-07-15 | Outpatient (CLI) | payer BC ==
[~2016-07-15] MED LIST changes: -LCTX PO
--- NOTE | 2016-07-15 10:58 | DIAGNOSTIC IMAGING REPORT ---
CHEST 2 VIEWS ROUTINE CLINICAL HISTORY: Right pleural effusion. COMPARISON STUDY: 07/08/2016 FINDINGS: The heart remains enlarged. There are postsurgical changes of midline sternotomy and valvular replacement. There is a left subclavian single chamber central venous pacemaker present. There is evidence for pulmonary venous hypertension. There is a persistent right pleural effusion with associated right lower lobe airspace opacities.[ IMPRESSION: Cardiomegaly and mild pulmonary vascular congestion. Persistent right pleural effusion with associated right lower lobe atelectasis/consolidation. Electronically signed by: Nikita Culp M.D. 07/15/2016 10:56 AM Dictated Date/Time: 07/15/2016 10:56 AM
== END | disposition home or self-care (01) ==
LOC: C.RAD1850 10:44
PROVIDERS: ATTEND Surgery
DX: J90 Pleural effusion, not elsewhere classified (principal); I51.7 Cardiomegaly

== ENCOUNTER 2016-07-22 15:20 | Inpatient (IN) | payer BC, OTHER ==
[~2016-07-22] VITALS: Ht 160 cm; Wt 74.3 kg
[~2016-07-22 15:20] MED LIST changes: -DOXY100C2 PO; -INHALER INH; -INSDGI SC; -METO50TA7 PO; -OXYC-609 PO; -TPRSR/50 PO; -WARF4TAB PO; -WARF4TAB8 PO
[2016-07-22] MEDS ORDERED: HYDROmorphone INJ 1 MG/ML SYR IV STA ×2 (15:31→16:41)
[2016-07-22] MEDS ORDERED: SODIUM CHLORIDE 0.9% 500ML 500 ML IV STA (15:31)
[2016-07-22] MEDS ORDERED: ONDANSETRON INJ 2 MG/ML 2 ML VIAL IV STA (15:31)
[2016-07-22 15:54] LABS: BASO % 0.7 %; BASO ABS # 0.04 K/uL (0-0.2); COMPLETE YES; EOS % 3.5 %; HEMATOCRIT 30.6 % (37-47); IG% 0.2 %; LYMPH % 18.7 %; LYMPH ABS # 1.01 K/uL (1.2-3.4); MEAN CELL VOLUME 83.4 fL (80-100); MEAN CORPUSCULAR HEMOGLOBIN 24.8 pg (25-34); MEAN CORPUSCULAR HGB CONC 29.7 g/dl (32-36); MEAN PLATELET VOLUME 9.6 fL (7.4-10.4); MONO % 11.3 %; NEUT % 65.6 %; PLATELET COUNT 217 K/uL (130-400); RED BLOOD COUNT 3.67 M/uL (4.2-5.4); WHITE BLOOD COUNT 5.41 K/uL (4.8-10.8)
[2016-07-22 15:59] LABS: ISTAT CREATININE 1.7 mg/dl (0.6-1.3); ISTAT HEMOGLOBIN 10.5 g/dl (12.0-16.0); ISTAT IONIZED CALCIUM 1.23 mmol/l (1.12-1.32)
[2016-07-22 16:05] LABS: INR 2.8 (0.9-1.1); PROTHROMBIN TIME (PATIENT) 30.7 SECONDS (9.0-12.0)
[2016-07-22] MEDS ORDERED: OXYC-609 PO ×2 (16:07)
[2016-07-22 16:17] LABS: ALT/SGPT 31 U/L (12-78); AST/SGOT 27 U/L (15-37); BLOOD UREA NITROGEN 50 mg/dl (7-18); BUN/CREATININE RATIO 27.6 (10-20); CALCIUM 9.4 mg/dl (8.5-10.1); CARBON DIOXIDE 24 mmol/L (21-32); CHLORIDE 105 mmol/L (98-107); GLUCOSE 219 mg/dl (70-99); POTASSIUM 4.3 mmol/L (3.5-5.1); SODIUM 139 mmol/L (136-145)
[2016-07-22 16:22] LABS: ALKALINE PHOSPHATASE 105 U/L (45-117); CKMB/CK RATIO 2.9 (0-3.0)
[2016-07-22] MEDS ORDERED: OPTIRAY 320 IV PRN (16:30)
--- NOTE | 2016-07-22 16:36 | DIAGNOSTIC IMAGING REPORT ---
CHEST CTA for PULMONARY ARTERIES CT DOSE: 267.48 mGy.cm HISTORY: Chest pain dyspnea TECHNIQUE: Multiaxial CT images of the chest were performed following the intravenous administration of contrast to evaluate the pulmonary arteries. Maximal intensity projection images were also obtained. COMPARISON STUDY: Chest series same date FINDINGS: Prior median sternotomy. Mild left ischemic change thoracic aorta. Top replacement. Right pleural effusion. Components of congestive heart failure. IMPRESSION: No evidence for pulmonary embolus. Right pleural effusion. Congestive heart failure. Electronically signed by: Zak Olson M.D. 07/22/2016 4:34 PM Dictated Date/Time: 07/22/2016 4:31 PM
--- NOTE | 2016-07-22 17:03 | EMERGENCY ROOM VISIT NOTE ---
History Report prepared by Dianne: Wojciech José Under the Supervision of: Dr. Angel Olvera M.D. First contact with patient: 15:26 Chief Complaint: BACK PAIN Stated Complaint: BACK PAIN History of Present Illness The patient is a 76 year old female who presents to the Emergency Room with complaints of worsening lower left back pain beginning three days ago. She describes the pain as "shooting". She states that she has taken Oxycodone for her pain which usually temporarily improves the pain. She states that she took oxycodone for her pain today which did not help. The patient also complains of left arm pain. Her back pain is improved with pressure. Source of History: patient Onset: Three days ago Position: back (left lower) Quality: other (shooting) Timing: worsening Modifying Factors (Relieving): other (Pressure. Oxycodone) Note: The patient also complains of left arm pain. Review of Systems See HPI for pertinent positives & negatives. A total of 10 systems reviewed and were otherwise negative. Past Medical & Surgical Medical Problems: (1) Acute pancreatitis (2) Acute respiratory failure with hypoxia (3) Acute systolic congestive heart failure (4) Acute urinary tract infection (5) Anemia (6) Asthma (7) Atrial fibrillation (8) Cardiac pacemaker procedure (9) Cholecystectomy (10) Chronic obstructive lung disease (11) CKD (chronic kidney disease) (12) COPD (chronic obstructive pulmonary disease) (13) Deep venous thrombosis (14) Diabetes mellitus (15) History of - peptic ulcer (16) Hysterectomy (17) PERSONAL HX OF TIA,& CEREBRAL INFARCTION W/OUT RES DEFICITS (18) Pneumonia (19) Replacement of mitral valve (20) Sepsis Surgical Problems: (1) History of cholecystectomy Family History Diabetes mellitus Heart disease Hypertension Social History Smoking Status: Never Smoker Alcohol Use: none Drug Use: none Marital Status: Housing Status: lives with family Occupation Status: retired Current/Historical Medications Scheduled Cholecalciferol (Vitamin D3), 1,000 INTER.UNIT PO DAILY Cyanocobalamin (Vitamin B-12), 1,000 MCG PO QAM Diazepam (Valium), 5 MG PO HS Digoxin (Digoxin), 0.125 MG PO QAM Ezetimibe (Ezetimibe), 10 MG PO HS Fexofenadine Hcl (Vickie), 180 MG PO QAM Furosemide (Furosemide), 40 MG PO QAM Gemfibrozil (Gemfibrozil), 600 MG PO BID Hydralazine Hcl (Apresoline), 25 MG PO BID Insulin Glargine (Lantus Solostar), 15 UNIT SC BID Isosorbide Mononitrate (Isosorbide Mononitrate ER), 30 MG PO QAM Levothyroxine Sodium (Synthroid), 175 MCG PO DAILY Metoprolol Succinate (Metoprolol Succinate ER), 100 MG PO QAM Misc Natural Products (Osteo Bi-Flex Joint Shiel), 1 TAB PO BID Montelukast Sod (Montelukast Sodium), 10 MG PO QAM Pyridoxine (Vitamin B6), 100 MG PO QAM Spironolactone (Aldactone), 50 MG PO DAILY Trospium Chloride (Trospium Chloride), 20 MG PO DAILY Warfarin Sod (Jantoven), 3 MG PO WK Warfarin Sodium (Coumadin), 4 MG PO 6XWK Scheduled PRN Diclofenac Sodium (Topical) (Diclofenac Sodium), 1 APPLN TOP QID PRN for Pain- Affected Joints Insulin Aspart (Novolog), 1 DOSE SC ACHS PRN for As Needed Oxycodone HCl (Oxycodone HCl), 5 MG PO DAILY PRN for Pain Allergies Coded Allergies: Penicillins (Verified Allergy, Severe, anaphylaxis 30yrs ago, also broke out with sores, 07/22/16) NOTE: Timentin 05/2003 tolerated without problem Diltiazem (Verified Allergy, Unknown, unknown, 07/22/16) Levofloxacin (Verified Allergy, Unknown, UNKNOWN, 07/22/16) Moxifloxacin (Verified Allergy, Unknown, UNKNOWN, 07/22/16) Aspirin (Verified Adverse Reaction, Intermediate, increased bleeding (on warfarin), 07/22/16) Atorvastatin (Verified Adverse Reaction, Unknown, & Crestor = muscle aches /pains, 07/22/16) NSAIDs (Verified Adverse Reaction, Unknown, AVOID PER DR. HICKS - [id number] , 07/22/16) Nortriptyline (Verified Adverse Reaction, Unknown, choking on food, 07/22/16 ) Quinidine (Verified Adverse Reaction, Unknown, flu-like symptoms, 07/22/16) Sulfamethoxazole w/Trimethoprim (Verified Adverse Reaction, Unknown, CONFUSION, 07/22/16) Physical Exam Vital Signs Date Time Temp Pulse Resp B/P Pulse Ox O2 Delivery O2 Flow Rate FiO2 07/22/16 17:16 66 20 118/63 98 Nasal Cannula 2.0 07/22/16 16:46 63 18 139/68 89 Room Air 07/22/16 16:46 97 Nasal Cannula 2.0 07/22/16 15:37 97 Room Air 07/22/16 15:28 80 07/22/16 15:25 36.6 100 20 171/87 97 Room Air Physical Exam GENERAL: Patient is a healthy-appearing well-nourished. Visibly uncomfortable. HEAD: Normocephalic atraumatic EYES: Ocular movements intact pupils equal and react to light OROPHARYNX mucous membranes are moist no exudates present no erythema or edema present NECK: Supple no nuchal rigidity CHEST: Good equal expansion LUNGS: Clear and equal to auscultation CARDIAC: Normal S1 and S2 ABDOMEN: Soft nontender no guarding BACK: No CVA tenderness. Appears to be having spasms. EXTREMITIES: No pain upon palpation normal muscle strength in all groups no clubbing cyanosis or edema NEURO: Patient is following commands is answering questions appropriately. Alert and oriented x3 Cranial Nerves 2-12 grossly intact Medical Decision & Procedures ER Provider Diagnostic Interpretation: CT results as stated below per my review and radiologist interpretation: CHEST CTA for PULMONARY ARTERIES FINDINGS: Prior median sternotomy. Mild left ischemic change thoracic aorta. Top replacement. Right pleural effusion. Components of congestive heart failure. IMPRESSION: No evidence for pulmonary embolus. Right pleural effusion. Congestive heart failure. Electronically signed by: Zak Olson M.D. Laboratory Results 07/22/16 15:40 Red Blood Count 3.67, Mean Corpuscular Volume 83.4, Mean Corpuscular Hemoglobin 24.8, Mean Corpuscular Hemoglobin Concent 29.7, Mean Platelet Volume 9.6, Neutrophils (%) (Auto) 65.6, Lymphocytes (%) (Auto) 18.7, Monocytes (%) (Auto) 11.3, Eosinophils (%) (Auto) 3.5, Basophils (%) (Auto) 0.7, Neutrophils # (Auto ) 3.55, Lymphocytes # (Auto) 1.01, Monocytes # (Auto) 0.61, Eosinophils # (Auto ) 0.19, Basophils # (Auto) 0.04 07/22/16 15:40 Test 07/22/16 15:40 07/22/16 15:47 White Blood Count 5.41 K/uL (4.8-10.8) Red Blood Count 3.67 M/uL (4.2-5.4) Hemoglobin 9.1 g/dL (12.0-16.0) Hematocrit 30.6 % (37-47) Mean Corpuscular Volume 83.4 fL (80-100) Mean Corpuscular Hemoglobin 24.8 pg (25-34) Mean Corpuscular Hemoglobin Concent 29.7 g/dl (32-36) Platelet Count 217 K/uL (130-400) Mean Platelet Volume 9.6 fL (7.4-10.4) Neutrophils (%) (Auto) 65.6 % Lymphocytes (%) (Auto) 18.7 % Monocytes (%) (Auto) 11.3 % Eosinophils (%) (Auto) 3.5 % Basophils (%) (Auto) 0.7 % Neutrophils # (Auto) 3.55 K/uL (1.4-6.5) Lymphocytes # (Auto) 1.01 K/uL (1.2-3.4) Monocytes # (Auto) 0.61 K/uL (0.11-0.59) Eosinophils # (Auto) 0.19 K/uL (0-0.5) Basophils # (Auto) 0.04 K/uL (0-0.2) RDW Standard Deviation 55.0 fL (36.4-46.3) RDW Coefficient of Variation 18.2 % (11.5-14.5) Immature Granulocyte % (Auto) 0.2 % Immature Granulocyte # (Auto) 0.01 K/uL (0.00-0.02) Prothrombin Time 30.7 SECONDS (9.0-12.0) Prothromb Time International Ratio 2.8 (0.9-1.1) Est Creatinine Clear Calc Drug Dose 27.1 ml/min Estimated GFR () 31.6 Estimated GFR (Non- 27.2 BUN/Creatinine Ratio 27.6 (10-20) Calcium Level 9.4 mg/dl (8.5-10.1) Total Bilirubin 0.6 mg/dl (0.2-1) Aspartate Amino Transf (AST/SGOT) 27 U/L (15-37) Alanine Aminotransferase (ALT/SGPT) 31 U/L (12-78) Alkaline Phosphatase 105 U/L (45-117) Total Creatine Kinase 56 U/L (26-192) Creatine Kinase MB 1.6 ng/ml (0.5-3.6) Creatine Kinase MB Ratio 2.9 (0-3.0) Troponin I < 0.015 ng/ml (0-0.045) Total Protein 8.0 gm/dl (6.4-8.2) Albumin 3.9 gm/dl (3.4-5.0) Globulin 4.1 gm/dl (2.5-4.0) Albumin/Globulin Ratio 1.0 (0.9-2) Bedside Hemoglobin 10.5 g/dl (12.0-16.0) Bedside Hematocrit 31 % (37-47) Bedside Sodium 139 mEq/L (135-144) Bedside Potassium 4.3 mEq/L (3.3-5.0) Bedside Chloride 103 mEq/L (101-112) Bedside Total CO2 21 mEq/l (24-31) Anion Gap 20.0 mmol/L (16-25) Bedside Blood Urea Nitrogen 45 mg/dl (7-18) Bedside Creatinine 1.7 mg/dl (0.6-1.3) Bedside Glucose (other) 222 mg/dl (70-99) Bedside Ionized Calcium (Fadi) 1.23 mmol/l (1.12-1.32) Labs reviewed by ED physician. Medications Administered Medications (Trade) Dose Ordered Sig/Albin Route Start Time Stop Time Status Last Admin Dose Admin Hydromorphone HCl 1 mg 1 mg NOW STAT IV 07/22/16 15:31 07/22/16 15:34 DC 07/22/16 15:53 1 MG Sodium Chloride (Nss 500ml) 500 ml @ 999 mls/hr Q31M STAT IV 07/22/16 15:31 07/22/16 16:01 DC 07/22/16 15:52 999 MLS/HR Ondansetron HCl (Zofran Inj) 4 mg NOW STAT IV 07/22/16 15:31 07/22/16 15:34 DC 07/22/16 15:53 4 MG ECG Indication: back/shoulder pain Rate (beats per minute): 86 Rhythm: atrial fibrillation Findings: RBBB, no acute ischemic change ED Course 1528: Past medical records reviewed. The patient was evaluated in room A12B. A complete history and physical examination was performed. 1531: Ordered Zofran Inj 4 mg IV, Sodium Chloride 500 ml @ 999 mls/hr, Dilaudid Inj 1 mg IV. 1603: I reassessed the patient. She is much improved. 1641: Ordered Dilaudid Inj 1 mg IV. 1652: Upon reexamination the patient is resting comfortably. I discussed results and treatment plan with the patient. She verbalizes agreement and understanding. I spoke with Dr. Barajas from the [facility]. The patient will be evaluated for further management. Medical Decision Differential diagnosis: Etiologies such as musculoskeletal, disc herniation, fracture, aortic disease, metastatic disease, cord compression, discitis, infection, renal colic, gastrointestinal, acute exacerbation of chronic back pain, sciatica, cauda equina, as well as others were entertained. This is a 76-year-old female who presents emergency department complaining of left-sided back pain. The patient is in severe pain and is required a large amount of narcotics to get her pain under control. She was given 1 mg of Dilaudid 2. Repeat examination revealed improvement patient's symptoms. Based on the patient's complaint she was sent for CAT scan of the chest. I did discuss the case with Dr. Monsalve the patient's surgeon. He asked that the patient be admitted to the medicine service. I did discuss the case with the medicine service. Consults Time Called: 164 Consulting Physician: Dr. Cueva -Thoracic Surgery Returned Call: 1646 I discussed the patient's case with Dr. Cueva. He recommends that the patient be admitted to medicine, as she needs to be reversed. Additional Consults: Time Called: 165 Consulted Physician: Dr. Barajas -[facility] Returned Call: 1652 Additional Comments: I discussed the patient's case with Dr. Barajas, he has agreed to evaluate the patient for further management and care. Impression Primary Impression: Back pain Additional Impression: Pleural effusion Scribe Attestation The scribe's documentation has been prepared under my direction and personally reviewed by me in its entirety. I confirm that the note above accurately reflects all work, treatment, procedures, and medical decision making performed by me. Departure Information Dispostion Being Evaluated By Hospitalist Referrals Phoenix Klein III, CRNP (PCP) Patient Instructions [facility] Problem Qualifiers Primary Impression: Back pain Back pain location: thoracic back pain Chronicity: acute Back pain laterality: left Qualified Codes: M54.6 - Pain in thoracic spine
[2016-07-22] MEDS ORDERED: MAGNESIUM HYDROXIDE SUSP 30 ML UDC PO PRN (17:45)
[2016-07-22] MEDS ORDERED: DICLOFENAC SOD 1% GEL 100 GM TUBE EXT PRN (17:45)
[2016-07-22] MEDS ORDERED: ONDANSETRON INJ 2 MG/ML 2 ML VIAL IV PRN (17:45)
[2016-07-22] MEDS ORDERED: NITROGLYCERIN 0.4 MG SL PER TAB CHARGE SL PRN (17:45)
[2016-07-22] MEDS ORDERED: ALUMINUM/MAGNESIUM/SIMETH (MAALOX MAX) 30 ML UDC PO PRN (17:45)
--- NOTE | 2016-07-22 18:08 | History and Physical ---
History & Physical Date & Time of Service: July 22, 2016 at 17:49 Chief Complaint: Back Pain Primary Care Physician: Phoenix Klein III, CRNP History of Present Illness Source: patient, clinic records, hospital records Patient is a pleasant 76 y/o female with PMHx of Systolic Congestive Heart Failure S/P Pacemaker, Mechanical Mitral Valve, Persistent Atrial Fibrillation, COPD/Asthma, T2DM, CKD Stage IV, Anemia of Chronic Disease, and Hypothyroidism, who presented to the ED because of left lateral back pain x1 day. Pain is described as a sharp pain. Pain does not radiate. She notes she has been experiencing this pain from time to time. She usually takes Oxycodone and applies ice, which helps relieve symptoms, but did not work today. According to the patient, she was getting out of the car a few days ago and remembers feeling a sharp pain occurring. Since that time, pain has been coming and going. She currently denies any pain; received IV Dilaudid 1 mg x2 in ED. Patient has been following closely with Dr. Cueva for right pleural effusion , which is noted on chest CTA today. She does admit to progressive SOB over the weekend. She states Dr. Cueva has discussed placing a PluerX catheter, but patient states she does NOT want this. Patient denies any fever, chills, sweats , lightheadedness, dizziness, vision changes, CP, palpitations, edema, wheezing , cough, abdominal pain, nausea, vomiting, diarrhea, urinary symptoms, melena, numbness/tingling, weakness, anxiety/depression, active bleeding, or new skin discoloration/changes. Past Medical/Surgical History Medical Problems: Systolic Congestive Heart Failure S/P Pacemaker Mechanical Mitral Valve Persistent Atrial Fibrillation COPD/Asthma T2DM CKD Stage IV Anemia of Chronic Disease Hypothyroidism Surgical History: Cholecystectomy Hysterectomy Replacement of mitral valve Family History Diabetes mellitus Heart disease Hypertension Social History Smoking Status: Never Smoker Drug Use: none Marital Status: Housing status: lives with family Occupational Status: retired Immunizations History of Influenza Vaccine: Yes Influenza Vaccine Date: Dec 23, 2010 History of Tetanus Vaccine?: utd History of Pneumococcal: Yes History of Hepatitis B Vaccine: No Multi-Drug Resistant Organisms History of MDRO: No Allergies Coded Allergies: Penicillins (Verified Allergy, Severe, anaphylaxis 30yrs ago, also broke out with sores, 07/22/16) NOTE: Timentin 05/2003 tolerated without problem Diltiazem (Verified Allergy, Unknown, unknown, 07/22/16) Levofloxacin (Verified Allergy, Unknown, UNKNOWN, 07/22/16) Moxifloxacin (Verified Allergy, Unknown, UNKNOWN, 07/22/16) Aspirin (Verified Adverse Reaction, Intermediate, increased bleeding (on warfarin), 07/22/16) Atorvastatin (Verified Adverse Reaction, Unknown, & Crestor = muscle aches /pains, 07/22/16) NSAIDs (Verified Adverse Reaction, Unknown, AVOID PER DR. HICKS - [id number] , 07/22/16) Nortriptyline (Verified Adverse Reaction, Unknown, choking on food, 07/22/16 ) Quinidine (Verified Adverse Reaction, Unknown, flu-like symptoms, 07/22/16) Sulfamethoxazole w/Trimethoprim (Verified Adverse Reaction, Unknown, CONFUSION, 07/22/16) Home Medications Scheduled Cholecalciferol (Vitamin D3), 1,000 INTER.UNIT PO DAILY Cyanocobalamin (Vitamin B-12), 1,000 MCG PO QAM Diazepam (Valium), 5 MG PO HS Digoxin (Digoxin), 0.125 MG PO QAM Ezetimibe (Ezetimibe), 10 MG PO HS Fexofenadine Hcl (Vickie), 180 MG PO QAM Furosemide (Furosemide), 40 MG PO QAM Gemfibrozil (Gemfibrozil), 600 MG PO BID Hydralazine Hcl (Apresoline), 25 MG PO BID Insulin Glargine (Lantus Solostar), 15 UNIT SC BID Isosorbide Mononitrate (Isosorbide Mononitrate ER), 30 MG PO QAM Levothyroxine Sodium (Synthroid), 175 MCG PO DAILY Metoprolol Succinate (Metoprolol Succinate ER), 100 MG PO QAM Misc Natural Products (Osteo Bi-Flex Joint Shiel), 1 TAB PO BID Montelukast Sod (Montelukast Sodium), 10 MG PO QAM Pyridoxine (Vitamin B6), 100 MG PO QAM Spironolactone (Aldactone), 50 MG PO DAILY Trospium Chloride (Trospium Chloride), 20 MG PO DAILY Warfarin Sod (Jantoven), 3 MG PO WK Warfarin Sodium (Coumadin), 4 MG PO 6XWK Scheduled PRN Diclofenac Sodium (Topical) (Diclofenac Sodium), 1 APPLN TOP QID PRN for Pain- Affected Joints Insulin Aspart (Novolog), 1 DOSE SC ACHS PRN for As Needed Oxycodone HCl (Oxycodone HCl), 5 MG PO DAILY PRN for Pain Physical Exam Vital Signs Date Time Temp Pulse Resp B/P Pulse Ox O2 Delivery O2 Flow Rate FiO2 07/22/16 17:16 66 20 118/63 98 Nasal Cannula 2.0 07/22/16 16:46 63 18 139/68 89 Room Air 07/22/16 16:46 97 Nasal Cannula 2.0 07/22/16 15:37 97 Room Air 07/22/16 15:28 80 07/22/16 15:25 36.6 100 20 171/87 97 Room Air General Appearance: no apparent distress Head: normocephalic, atraumatic Eyes: normal inspection, PERRL ENT: hearing grossly normal Neck: supple Respiratory/Chest: no respiratory distress, no accessory muscle use, + decreased breath sounds (right lung base ), + crackles (bilateral lung bases ) Cardiovascular: + irregularly irregular (rate controlled ) Abdomen/GI: normal bowel sounds, non tender, + distended Back: normal inspection Extremities/Musculoskelatal: no calf tenderness, no pedal edema Neurologic/Psych: alert, normal mood/affect, oriented x 3 Skin: normal color, warm/dry, no rash Diagnostics Laboratory Results Results Past 24 Hours Test 07/22/16 15:40 07/22/16 15:47 Range/Units White Blood Count 5.41 4.8-10.8 K/uL Red Blood Count 3.67 4.2-5.4 M/uL Hemoglobin 9.1 12.0-16.0 g/dL Hematocrit 30.6 37-47 % Mean Corpuscular Volume 83.4 80-100 fL Mean Corpuscular Hemoglobin 24.8 25-34 pg Mean Corpuscular Hemoglobin Concent 29.7 32-36 g/dl Platelet Count 217 130-400 K/uL Mean Platelet Volume 9.6 7.4-10.4 fL Neutrophils (%) (Auto) 65.6 % Lymphocytes (%) (Auto) 18.7 % Monocytes (%) (Auto) 11.3 % Eosinophils (%) (Auto) 3.5 % Basophils (%) (Auto) 0.7 % Neutrophils # (Auto) 3.55 1.4-6.5 K/uL Lymphocytes # (Auto) 1.01 1.2-3.4 K/uL Monocytes # (Auto) 0.61 0.11-0.59 K/uL Eosinophils # (Auto) 0.19 0-0.5 K/uL Basophils # (Auto) 0.04 0-0.2 K/uL RDW Standard Deviation 55.0 36.4-46.3 fL RDW Coefficient of Variation 18.2 11.5-14.5 % Immature Granulocyte % (Auto) 0.2 % Immature Granulocyte # (Auto) 0.01 0.00-0.02 K/uL Prothrombin Time 30.7 9.0-12.0 SECONDS Prothromb Time International Ratio 2.8 0.9-1.1 Sodium Level 139 136-145 mmol/L Potassium Level 4.3 3.5-5.1 mmol/L Chloride Level 105 98-107 mmol/L Carbon Dioxide Level 24 21-32 mmol/L Anion Gap 10.0 20.0 16-25 mmol/L Blood Urea Nitrogen 50 7-18 mg/dl Creatinine 1.80 0.60-1.20 mg/dl Est Creatinine Clear Calc Drug Dose 27.1 ml/min Estimated GFR () 31.6 Estimated GFR (Non- 27.2 BUN/Creatinine Ratio 27.6 10-20 Random Glucose 219 70-99 mg/dl Calcium Level 9.4 8.5-10.1 mg/dl Total Bilirubin 0.6 0.2-1 mg/dl Aspartate Amino Transf (AST/SGOT) 27 15-37 U/L Alanine Aminotransferase (ALT/SGPT) 31 12-78 U/L Alkaline Phosphatase 105 45-117 U/L Total Creatine Kinase 56 26-192 U/L Creatine Kinase MB 1.6 0.5-3.6 ng/ml Creatine Kinase MB Ratio 2.9 0-3.0 Troponin I < 0.015 0-0.045 ng/ml Total Protein 8.0 6.4-8.2 gm/dl Albumin 3.9 3.4-5.0 gm/dl Globulin 4.1 2.5-4.0 gm/dl Albumin/Globulin Ratio 1.0 0.9-2 Bedside Hemoglobin 10.5 12.0-16.0 g/dl Bedside Hematocrit 31 37-47 % Bedside Sodium 139 135-144 mEq/L Bedside Potassium 4.3 3.3-5.0 mEq/L Bedside Chloride 103 101-112 mEq/L Bedside Total CO2 21 24-31 mEq/l Bedside Blood Urea Nitrogen 45 7-18 mg/dl Bedside Creatinine 1.7 0.6-1.3 mg/dl Bedside Glucose (other) 222 70-99 mg/dl Bedside Ionized Calcium (Fadi) 1.23 1.12-1.32 mmol/l Diagnostic Radiology CHEST CTA for PULMONARY ARTERIES CT DOSE: 267.48 mGy.cm HISTORY: Chest pain dyspnea TECHNIQUE: Multiaxial CT images of the chest were performed following the intravenous administration of contrast to evaluate the pulmonary arteries. Maximal intensity projection images were also obtained. COMPARISON STUDY: Chest series same date FINDINGS: Prior median sternotomy. Mild left ischemic change thoracic aorta. Top replacement. Right pleural effusion. Components of congestive heart failure. IMPRESSION: No evidence for pulmonary embolus. Right pleural effusion. Congestive heart failure. Electronically signed by: Zak Olson M.D. 07/22/2016 4:34 PM Dictated Date/Time: 07/22/2016 4:31 PM The status of this report is Signed. Draft = Not yet reviewed or approved by Radiologist. Signed = Reviewed and approved by Radiologist. Impression Assessment and Plan Ms. Morales is a 76 y/o female with PMHx of Systolic Congestive Heart Failure S/ P Pacemaker, Mechanical Mitral Valve, Persistent Atrial Fibrillation, COPD/ Asthma, T2DM, CKD Stage IV, Anemia of Chronic Disease, and Hypothyroidism, who presented to the ED because of left lateral back pain x1 day. Right pleural effusion s/p thoracentesis on 06/28/16: - Admit to tele for cardiac monitoring - O2 protocol- wears 2L O2 at night - Follows w/ Dr. Cueva- consulted appreciate recommendations Left lateral back pain, resolved w/ IV 2 mg Dilaudid given in ED: - Continue Oxycodone PRN - NOTE: patient allergic to NSAIDs Chronic systolic CHF: - Continue Lasix 40 mg daily - Monitor I&Os and daily weights - ECHO 06/27/16: * There is mild to moderate tricuspid regurgitation. * There is moderate asymmetric left ventricular hypertrophy. * Left ventricular systolic function is normal. * The right ventricle is mild to moderately dilated. * The left atrium is severely dilated. * The right atrium is moderate to severely dilated. * Mild to moderate aortic regurgitation. * There is a mechanical mitral valve. * Normal prosthetic mitral valve gradients. * Right ventricular systolic pressure is elevated at >60mmHg.Compared to an echocardiogram from 2015, the systolic function is now normal. Pulmonary pressures are higher. Persistent a.fib s/p pacemaker and s/p mechanical mitral valve: - Continue Digoxin 0.125 mg and Metoprolol 100 mg daily - Hold Coumadin due to ?procedure by Dr. Cueva tomorrow- resume EMBER CKD stage IV- baseline Cr ~1.8- STABLE: Follow PRP COPD: Singulair 10 mg daily T2DM: Lantus 15 units SC BID and BSG ACHS w/ sliding insulin scale HTN: Hydralazine 25 mg BID Hypothyroidism: Synthroid 175 mcg daily HLD: Zetia 10 mg daily and Lopid 600 mg BID GI Prophylaxis: Maalox PRN, IV Zofran PRN, Colace and/or Milk of Mag PRN DVT Prophylaxis: Coumadin Code Status: LEVEL I, FULL Dispo: - From home, lives with - PT/OT evaluations - surgical services asst consulted Level of Care Telemetry Resuscitation Status FULL RESUSCITATION VTE Prophylaxis VTE Risk Assessment Done? Y/N: Yes Risk Level: Moderate Given or contraindicated: Warfarin (Coumadin), T.E.D. Stockings, SCD's
[2016-07-22 18:17] LABS: URINE APPEARANCE CLEAR (CLEAR); URINE BILIRUBIN NEG (NEG); URINE COLOR YELLOW; URINE NITRITE NEG (NEG); URINE SPECIFIC GRAVITY 1.019 (1.000-1.030); UROBILINOGEN NEG (NEG)
[2016-07-22 18:22] LABS: MANUAL MICROSCOPIC REQUIRED? NO; REVIEW REQ? NO
[2016-07-22 18:25] VITALS: O2SAT 98; Ht 160 cm; Wt 74.3 kg
[2016-07-22] MEDS ORDERED: IV FLUIDS COMPLETED PRN (18:30)
[2016-07-22 18:45] VITALS: BP 148/69; PULSE 70; TEMP 36.6; O2SAT 97
[2016-07-22] MEDS ORDERED: DEXTROSE 50% 50 ML SYR IV PRN (19:00)
[2016-07-22] MEDS ORDERED: GLUCOSE 10 TABS/TUBE PO PRN (19:00)
[2016-07-22] MEDS ORDERED: GLUCAGON FOR INJ 1 MG VIAL SQ PRN (19:00)
[2016-07-22] MEDS ORDERED: GLUCOSE 40% GEL 15 GM TUBE PO PRN (19:00)
[2016-07-22 19:24] VITALS: BP 126/67; PULSE 60; TEMP 36.6; O2SAT 99
[2016-07-22] MEDS ORDERED: NATURAL PRODUCTS PO SCH (21:00)
[2016-07-22] MEDS: INSULIN ASPART 100 UNITS/ML 3 ML PEN SC SCH (21:00)
[2016-07-22] MEDS ORDERED: GEMFIBROZIL 600 MG TAB PO SCH (21:00)
[2016-07-22] MEDS: INSULIN GLARGINE SOLOSTAR 100 UNITS/ML 3 ML PEN SC SCH (21:02)
[2016-07-22] MEDS: GEMFIBROZIL 600 MG TAB PO SCH (21:03)
[2016-07-22] MEDS: EZETIMIBE 10MG TAB PO SCH (22:13)
[2016-07-22] MEDS: DIAZEPAM 5MG TAB PO SCH (22:13)
[2016-07-22 23:47] VITALS: BP 107/55; PULSE 73; TEMP 36.7; O2SAT 98
[2016-07-23] VITALS (9 sets, daily range): BP systolic 118–127; BP diastolic 49–57; PULSE 59–71; TEMP 36.7–37; O2SAT 97–100
[2016-07-23] MEDS: GEMFIBROZIL 600 MG TAB PO SCH ×2 (05:50→21:07)
[2016-07-23] MEDS: LEVOTHYROXINE 175 MCG TAB PO SCH (05:50)
[2016-07-23 06:09] LABS: INR 2.6 (0.9-1.1); PROTHROMBIN TIME (PATIENT) 29.4 SECONDS (9.0-12.0)
[2016-07-23 06:11] LABS: HEMATOCRIT 29.8 % (37-47); MEAN CELL VOLUME 85.9 fL (80-100); MEAN CORPUSCULAR HEMOGLOBIN 25.6 pg (25-34); MEAN CORPUSCULAR HGB CONC 29.9 g/dl (32-36); MEAN PLATELET VOLUME 10.1 fL (7.4-10.4); PLATELET COUNT 196 K/uL (130-400); RED BLOOD COUNT 3.47 M/uL (4.2-5.4); WHITE BLOOD COUNT 5.03 K/uL (4.8-10.8)
[2016-07-23] MEDS: INSULIN ASPART 100 UNITS/ML 3 ML PEN SC SCH ×4 (06:30→21:00)
[2016-07-23 06:34] LABS: CALCIUM 8.8 mg/dl (8.5-10.1); CREATININE 1.9 mg/dl (0.60-1.20); POTASSIUM 4.7 mmol/L (3.5-5.1)
[2016-07-23] MEDS: METOPROLOL SUCC 50MG EXT REL TAB PO SCH (08:00)
[2016-07-23] MEDS: CHOLECALCIFEROL 1000 INTER.UNIT TAB PO SCH (08:00)
[2016-07-23] MEDS: ISOSORBIDE MONONITRATE 30 MG TABCR PO SCH (08:01)
[2016-07-23] MEDS: FEXOFENADINE HCL 180 MG TAB PO SCH (08:01)
[2016-07-23] MEDS: CYANOCOBALAMIN 500 MCG TAB (VIT B-12) PO SCH (08:01)
[2016-07-23] MEDS: MONTELUKAST SOD 10 MG TAB PO SCH (08:01)
[2016-07-23] MEDS: PYRIDOXINE HCL 50 MG TAB PO SCH (08:02)
[2016-07-23] MEDS: SPIRONOLACTONE 25 MG TAB PO SCH (08:02)
[2016-07-23] MEDS: FUROSEMIDE 40 MG TAB PO SCH (08:02)
[2016-07-23] MEDS: INSULIN GLARGINE SOLOSTAR 100 UNITS/ML 3 ML PEN SC SCH ×2 (08:07→21:09)
[2016-07-23] MEDS ORDERED: NON-FORMULARY MEDICATION (Trospium Chloride 20 MG) PO SCH (09:00)
[2016-07-23] MEDS: POLYETHYLENE (MIRALAX) 17 GM PACK PO PRN (14:06)
[2016-07-23] MEDS: DIGOXIN 0.125 MG TAB PO SCH (16:36)
--- NOTE | 2016-07-23 19:18 | Hospitalist Progress Note ---
Hospitalist Progress Note Date of Service July 23, 2016. Subjective Pt evaluation today including: conversation w/ patient Medications Medications (Trade) Dose Ordered Sig/Albin Route Start Time Stop Time Status Last Admin Dose Admin Cyanocobalamin (Vitamin B-12 Tab) 1,000 mcg QAM PO 07/23/16 09:00 08/22/16 08:59 07/23/16 08:01 1,000 MCG Diazepam (Valium Tab) 5 mg HS PO 07/22/16 21:00 08/21/16 20:59 07/22/16 22:13 5 MG Digoxin (Lanoxin Tab) 0.125 mg DAILY@1600 PO 07/23/16 16:00 08/22/16 15:59 07/23/16 16:36 0.125 MG EZETIMIBE (Zetia Tab) 10 mg HS PO 07/22/16 21:00 08/21/16 20:59 07/22/16 22:13 10 MG Fexofenadine HCl (Vickie Tab) 180 mg QAM PO 07/23/16 09:00 08/22/16 08:59 07/23/16 08:01 180 MG Furosemide (Lasix Tab) 40 mg QAM PO 07/23/16 09:00 08/22/16 08:59 07/23/16 08:02 40 MG Hydralazine HCl (Apresoline Tab) 25 mg BID PO 07/22/16 21:00 08/21/16 20:59 07/23/16 08:03 25 MG Insulin Glargine (Lantus Solostar Pen) 15 unit BID SC 07/22/16 21:00 08/21/16 20:59 07/23/16 08:07 15 UNIT Isosorbide Mononitrate (Imdur Ext Rel Tab) 30 mg QAM PO 07/23/16 09:00 08/22/16 08:59 07/23/16 08:01 30 MG Levothyroxine Sodium (Synthroid Tab) 175 mcg DAILYBB PO 07/23/16 06:30 08/22/16 06:29 07/23/16 05:50 175 MCG Metoprolol Succinate (Toprol Xl Tab) 100 mg QAM PO 07/23/16 09:00 08/22/16 08:59 07/23/16 08:00 100 MG Montelukast Sodium (Singulair Tab) 10 mg QAM PO 07/23/16 09:00 08/22/16 08:59 07/23/16 08:01 10 MG Pyridoxine HCl (Vitamin B-6 Tab) 100 mg QAM PO 07/23/16 09:00 08/22/16 08:59 07/23/16 08:02 100 MG Cholecalciferol (Vitamin D Tab) 1,000 inter.unit DAILY PO 07/23/16 09:00 08/22/16 08:59 07/23/16 08:00 1,000 INTER.UNIT Spironolactone (Aldactone Tab) 50 mg DAILY PO 07/23/16 09:00 08/22/16 08:59 07/23/16 08:02 50 MG Gemfibrozil (Lopid Tab) 600 mg BID@0600,2100 PO 07/22/16 21:00 08/21/16 20:59 07/23/16 05:50 600 MG Objective Vital Signs Date Time Temp Pulse Resp B/P Pulse Ox O2 Delivery O2 Flow Rate FiO2 07/23/16 19:11 36.9 59 18 122/49 99 Nasal Cannula 2.0 07/23/16 16:36 64 07/23/16 16:00 Room Air 2.0 Nasal Cannula 07/23/16 14:58 36.7 63 20 125/52 99 Room Air 07/23/16 12:00 Nasal Cannula 2.0 07/23/16 11:17 36.7 69 20 127/55 100 Nasal Cannula 3.5 07/23/16 10:53 60 99 07/23/16 08:00 Nasal Cannula 2.0 07/23/16 06:55 37.0 64 18 121/54 99 2.0 07/23/16 04:57 98 Nasal Cannula 2.0 07/23/16 03:50 36.7 71 18 118/56 100 Nasal Cannula 2.0 07/23/16 00:00 98 Nasal Cannula 2.0 07/22/16 23:47 36.7 73 18 107/55 98 2.0 07/22/16 19:24 36.6 60 20 126/67 99 Nasal Cannula 3.0 Physical Exam General Appearance: WD/WN Eyes: normal inspection ENT: normal ENT inspection Neck: supple Respiratory/Chest: chest non-tender, lungs clear Cardiovascular: regular rate, rhythm Abdomen: normal bowel sounds, non tender, soft Extremities: normal range of motion 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 as tested, normal mood/affect, oriented x 3 Skin: normal color Laboratory Results Last 24 Hours Test 07/22/16 20:43 07/23/16 05:44 07/23/16 07:57 07/23/16 12:09 Bedside Glucose 167 mg/dl 104 mg/dl 126 mg/dl White Blood Count 5.03 K/uL Red Blood Count 3.47 M/uL Hemoglobin 8.9 g/dL Hematocrit 29.8 % Mean Corpuscular Volume 85.9 fL Mean Corpuscular Hemoglobin 25.6 pg Mean Corpuscular Hemoglobin Concent 29.9 g/dl RDW Standard Deviation 58.2 fL RDW Coefficient of Variation 18.4 % Platelet Count 196 K/uL Mean Platelet Volume 10.1 fL Prothrombin Time 29.4 SECONDS Prothromb Time International Ratio 2.6 Sodium Level 139 mmol/L Potassium Level 4.7 mmol/L Chloride Level 108 mmol/L Carbon Dioxide Level 25 mmol/L Anion Gap 6.0 mmol/L Blood Urea Nitrogen 51 mg/dl Creatinine 1.90 mg/dl Est Creatinine Clear Calc Drug Dose 24.8 ml/min Estimated GFR () 29.6 Estimated GFR (Non- 25.5 BUN/Creatinine Ratio 27.0 Random Glucose 103 mg/dl Calcium Level 8.8 mg/dl Test 07/23/16 16:45 Bedside Glucose 144 mg/dl Assessment and Plan Ms. Morales is a 76 y/o female with PMHx of Systolic Congestive Heart Failure S/ P Pacemaker, Mechanical Mitral Valve, Persistent Atrial Fibrillation, COPD/ Asthma, T2DM, CKD Stage IV, Anemia of Chronic Disease, and Hypothyroidism, who presented to the ED because of left lateral back pain x1 day. Right pleural effusion s/p thoracentesis on 06/28/16: - Admit to tele for cardiac monitoring - O2 protocol- wears 2L O2 at night - Follows w/ Dr. Cueva- consulted appreciate recommendations Left lateral back pain, resolved w/ IV 2 mg Dilaudid given in ED: - Continue Oxycodone PRN - NOTE: patient allergic to NSAIDs Chronic systolic CHF: - Continue Lasix 40 mg daily - Monitor I&Os and daily weights - ECHO 06/27/16: * There is mild to moderate tricuspid regurgitation. * There is moderate asymmetric left ventricular hypertrophy. * Left ventricular systolic function is normal. * The right ventricle is mild to moderately dilated. * The left atrium is severely dilated. * The right atrium is moderate to severely dilated. * Mild to moderate aortic regurgitation. * There is a mechanical mitral valve. * Normal prosthetic mitral valve gradients. * Right ventricular systolic pressure is elevated at >60mmHg.Compared to an echocardiogram from 2015, the systolic function is now normal. Pulmonary pressures are higher. Persistent a.fib s/p pacemaker and s/p mechanical mitral valve: - Continue Digoxin 0.125 mg and Metoprolol 100 mg daily CKD stage IV- baseline Cr ~1.8- STABLE: Follow PRP COPD: Singulair 10 mg daily T2DM: Lantus 15 units SC BID and BSG ACHS w/ sliding insulin scale HTN: Hydralazine 25 mg BID Hypothyroidism: Synthroid 175 mcg daily HLD: Zetia 10 mg daily and Lopid 600 mg BID GI Prophylaxis: Maalox PRN, IV Zofran PRN, Colace and/or Milk of Mag PRN DVT Prophylaxis: Coumadin Code Status: LEVEL I, FULL
[2016-07-23] MEDS: EZETIMIBE 10MG TAB PO SCH (21:07)
[2016-07-23] MEDS: DIAZEPAM 5MG TAB PO SCH (21:10)
[2016-07-24] VITALS (7 sets, daily range): BP systolic 117–152; BP diastolic 61–69; PULSE 60–88; TEMP 36.6–36.8; O2SAT 94–99
--- NOTE | 2016-07-24 01:14 | SURGICAL CONSULTATION ---
DATE OF CONSULTATION: 07/23/2016 REASON FOR CONSULTATION: Right pleural effusion. HISTORY OF PRESENT ILLNESS: Crystal Morales is a 76-year-old female who has multiple medical problems including a 37-year-old Dowd-Lee mitral valve in place. I saw the patient on 06/28/2016 with increasing right pleural effusion and performed a right thoracentesis. About 1500 mL of a rust colored fluid was drained. This was evaluated. There was no evidence of infection or malignancy. LDH was 125, pH 7.33 and the glucose is 119. She improved tremendously. She looked absolutely terrible when I saw her. After draining this, she looked markedly different. She cares for her at home. We saw her in the office as she was reaccumulating fluid on the right and I felt that a right PleurX catheter should be offered. She was not interested in having this done; however, she was admitted with pain in her left back, which may well be due to compression fracture; however, she stated that she was short of breath and had a right pleural effusion, which had increased in size on her CT scan. It was homogenous. I had a long talk with the patient at bedside today. She is not interested in having anything done. She states that she is not short of breath. She also states that the x-ray showed no fluid on her film. She obviously has had some anxiety issues with this, so I did not push the topic, but it is my opinion that a PleurX catheter would greatly benefit this woman. She looks so much better after we drained her before. PAST MEDICAL HISTORY: 1. Chronic atrial fibrillation. 2. COPD. 3. Pancreatitis in the past. 4. Deep vein thrombosis in the past. 5. Cholelithiasis. 6. Asthma. 7. Recurrent urinary tract infections. 8. 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 9. Peptic ulcer disease. 10. Diabetes mellitus. 11. Pneumonia in the past. PAST SURGICAL HISTORY: 1. Midline sternotomy in 1985 with insertion of a mitral valve prosthesis with a Dowd-Lee valve at [facility]. 2. Insertion of a pacemaker. 3. 2, para 2, aborta 0. 4. Cholecystectomy. 5. Repair of fractured distal right ankle. MEDICATIONS: Please see chart. ALLERGIES: MULTIPLE. SOCIAL HISTORY: The patient lives with her who actually requires her care. She never smoked cigarettes. She does not use alcohol. 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 FAMILY MEDICAL HISTORY: The patient has 2 children and 6 grandchildren, healthy. Mother at 77 from lung cancer. REVIEW OF SYSTEMS: The patient states that she really is not having trouble breathing, but having trouble with her back, especially left flank area hurting for her. Her has had several strokes and probably has multiinfarct dementia and she has to help him. She has lost weight. She has increasing dyspnea on exertion. She denies productive cough, fever, chills or chest pain. She does have this back pain. She has had some lower extremity edema. PHYSICAL EXAMINATION: GENERAL: This is an ill-appearing elderly female who is hard of hearing. She is awake and alert. HEENT: Extraocular movements are intact. Pupils are small. Her oral mucosa is moist. Tongue is midline. I detect no obvious neck vein distention. She has no supraclavicular or cervical lymphadenopathy, carotid bruits. Midline sternotomy incision is well healed without a click. HEART: Upon auscultation of her heart, she does have an irregularly irregular rhythm with a click from her mechanical valve. LUNGS: He has decreased breath sounds especially in the right base. She has no wheezing. ABDOMEN: Soft, nontender, but protuberant. There is no evidence of ascites or hepatosplenomegaly. LOWER EXTREMITIES: Do have a bit more edema. Feet are warm and well perfused. I cannot palpate dorsalis pedis pulses, although they are faint. NEUROLOGICALLY: She is awake, alert and oriented, although I think she is a bit confused about this catheter. ASSESSMENT AND PLAN: 1. Increasing right pleural effusion. We had her scheduled to undergo a PleurX catheter insertion when her INR dropped down to 2; however, she was not interested so we resumed the Coumadin. Her INR was 2.8 upon admission and 2.6 today. 2. Enlarging right homogenous pleural effusion. The patient is adamant, she does not want a PleurX catheter. I did not argue with her. I do believe she would benefit from it. She is short of breath when she talks, especially when she exerts herself. Given her fears, I did not push this issue. We will follow along. CHARU
[2016-07-24] MEDS: ACETAMINOPHEN 325 MG TAB PO PRN (03:36)
[2016-07-24] MEDS: LEVOTHYROXINE 175 MCG TAB PO SCH (05:47)
[2016-07-24] MEDS: GEMFIBROZIL 600 MG TAB PO SCH ×2 (05:47→20:29)
[2016-07-24 06:07] LABS: BASO % 0.5 %; BASO ABS # 0.03 K/uL (0-0.2); EOS % 4.1 %; LYMPH % 18.9 %; LYMPH ABS # 1.05 K/uL (1.2-3.4); MEAN CELL VOLUME 84.3 fL (80-100); MEAN CORPUSCULAR HEMOGLOBIN 25.9 pg (25-34); MEAN CORPUSCULAR HGB CONC 30.7 g/dl (32-36); MEAN PLATELET VOLUME 9.2 fL (7.4-10.4); MONO % 15.5 %; PLATELET COUNT 172 K/uL (130-400); RED BLOOD COUNT 3.44 M/uL (4.2-5.4); WHITE BLOOD COUNT 5.56 K/uL (4.8-10.8)
[2016-07-24 06:23] LABS: INR 2.5 (0.9-1.1); PROTHROMBIN TIME (PATIENT) 28.1 SECONDS (9.0-12.0)
[2016-07-24] MEDS: INSULIN ASPART 100 UNITS/ML 3 ML PEN SC SCH ×4 (06:30→20:37)
[2016-07-24 06:47] LABS: BUN/CREATININE RATIO 24.8 (10-20); CALCIUM 8.7 mg/dl (8.5-10.1); CREATININE 2.4 mg/dl (0.60-1.20); POTASSIUM 4.9 mmol/L (3.5-5.1)
[2016-07-24 06:51] LABS: COMPLETE YES
[2016-07-24] MEDS: INSULIN GLARGINE SOLOSTAR 100 UNITS/ML 3 ML PEN SC SCH ×2 (08:12→20:36)
[2016-07-24] MEDS: MONTELUKAST SOD 10 MG TAB PO SCH (08:13)
[2016-07-24] MEDS: METOPROLOL SUCC 50MG EXT REL TAB PO SCH (08:13)
[2016-07-24] MEDS: CYANOCOBALAMIN 500 MCG TAB (VIT B-12) PO SCH (08:13)
[2016-07-24] MEDS: ISOSORBIDE MONONITRATE 30 MG TABCR PO SCH (08:13)
[2016-07-24] MEDS: FEXOFENADINE HCL 180 MG TAB PO SCH (08:14)
[2016-07-24] MEDS: SPIRONOLACTONE 25 MG TAB PO SCH (08:14)
[2016-07-24] MEDS: PYRIDOXINE HCL 50 MG TAB PO SCH (08:14)
[2016-07-24] MEDS: FUROSEMIDE 40 MG TAB PO SCH (08:14)
[2016-07-24] MEDS: CHOLECALCIFEROL 1000 INTER.UNIT TAB PO SCH (08:14)
--- NOTE | 2016-07-24 08:14 | DIAGNOSTIC IMAGING REPORT ---
CHEST 2 VIEWS ROUTINE HISTORY: pleural effusion COMPARISON: Chest 07/22/2016. FINDINGS: Left-sided single lead pacemaker. Poststernotomy changes and a cardiac valve prosthesis. The heart remains mild enlarged. No pneumothorax. Mild diffuse interstitial and vascular thickening suggestive of mild congestive change. This remains unchanged. Small to moderate right pleural effusion and right basilar densities have slightly progressed. Linear density left lung base remain unchanged. IMPRESSION: 1. Slight progression of the small to moderate right pleural effusion and right basilar densities. 2. Cardiomegaly and mild congestive change persists. Electronically signed by: Lalito Villavicencio M.D. 07/24/2016 8:12 AM Dictated Date/Time: 07/24/2016 8:10 AM
[2016-07-24] MEDS: POLYETHYLENE (MIRALAX) 17 GM PACK PO PRN (08:59)
[2016-07-24] MEDS: OXYCODONE/ACETAMINOPHEN 5-325 TAB PO PRN ×2 (09:00→13:48)
--- NOTE | 2016-07-24 13:43 | DIAGNOSTIC IMAGING REPORT ---
RENAL ULTRASOUND CLINICAL HISTORY: Left flank pain. COMPARISON STUDY: CT of the abdomen and pelvis October 07, 2016. TECHNIQUE: Sonography of the kidneys and the urinary bladder was performed. FINDINGS: The right kidney measures 11.2 x 5.4 x 5.1 cm and the left measures 10 x 5.3 x 6.2 cm. There is no hydronephrosis. An equivocal punctate nonobstructing calculus within the midpole the right kidney is probably artifactual. The kidneys are lobulated. No renal masses are identified by sonography. Irregularity of the lower pole of the right kidney is unchanged. There is mild renal cortical thinning. There is a 9 mm left renal cyst. Trace abdominal ascites is noted. Both ureteral jets were identified. Borderline splenomegaly is noted. IMPRESSION: 1. No hydronephrosis. 2. Trace ascites. Electronically signed by: Randy Melton M.D. 07/24/2016 1:41 PM Dictated Date/Time: 07/24/2016 1:38 PM
[2016-07-24] MEDS: DIGOXIN 0.125 MG TAB PO SCH (15:45)
[2016-07-24] MEDS ORDERED: WARFARIN SOD 3 MG TAB PO ONE (18:00)
[2016-07-24] MEDS: DIAZEPAM 5MG TAB PO SCH (22:12)
[2016-07-24] MEDS: EZETIMIBE 10MG TAB PO SCH (22:12)
[2016-07-25] MEDS: ACETAMINOPHEN 325 MG TAB PO PRN ×2 (01:46→15:32)
[2016-07-25 03:18] VITALS: BP 149/75; PULSE 102; TEMP 36.9; O2SAT 98
[2016-07-25] MEDS: LEVOTHYROXINE 175 MCG TAB PO SCH (05:35)
[2016-07-25] MEDS: GEMFIBROZIL 600 MG TAB PO SCH ×2 (05:35→21:19)
[2016-07-25 07:30] LABS: HEMATOCRIT 29.8 % (37-47); MEAN CELL VOLUME 83.2 fL (80-100); MEAN CORPUSCULAR HEMOGLOBIN 24.6 pg (25-34); MEAN CORPUSCULAR HGB CONC 29.5 g/dl (32-36); MEAN PLATELET VOLUME 9.6 fL (7.4-10.4); PLATELET COUNT 176 K/uL (130-400); RED BLOOD COUNT 3.58 M/uL (4.2-5.4); WHITE BLOOD COUNT 5.61 K/uL (4.8-10.8)
[2016-07-25] MEDS: INSULIN ASPART 100 UNITS/ML 3 ML PEN SC SCH ×4 (07:30→21:00)
[2016-07-25] MEDS: FEXOFENADINE HCL 180 MG TAB PO SCH (07:33)
[2016-07-25] MEDS: SPIRONOLACTONE 25 MG TAB PO SCH (07:33)
[2016-07-25] MEDS: ISOSORBIDE MONONITRATE 30 MG TABCR PO SCH (07:33)
[2016-07-25] MEDS: CHOLECALCIFEROL 1000 INTER.UNIT TAB PO SCH (07:34)
[2016-07-25] MEDS: CYANOCOBALAMIN 500 MCG TAB (VIT B-12) PO SCH (07:34)
[2016-07-25] MEDS: PYRIDOXINE HCL 50 MG TAB PO SCH (07:34)
[2016-07-25] MEDS: FUROSEMIDE 40 MG TAB PO SCH (07:34)
[2016-07-25] MEDS: MONTELUKAST SOD 10 MG TAB PO SCH (07:34)
[2016-07-25] MEDS: METOPROLOL SUCC 50MG EXT REL TAB PO SCH (07:34)
[2016-07-25] MEDS: INSULIN GLARGINE SOLOSTAR 100 UNITS/ML 3 ML PEN SC SCH ×2 (07:35→21:21)
[2016-07-25 07:38] LABS: PROTHROMBIN TIME (PATIENT) 22.1 SECONDS (9.0-12.0)
[2016-07-25 07:46] VITALS: BP 125/67; PULSE 107; TEMP 36.7; O2SAT 94
[2016-07-25 08:02] LABS: BUN/CREATININE RATIO 27.8 (10-20); CREATININE 2.3 mg/dl (0.60-1.20); POTASSIUM 5.1 mmol/L (3.5-5.1)
[2016-07-25] MEDS ORDERED: WARFARIN SOD 4 MG TAB PO ONE (09:45)
--- NOTE | 2016-07-25 10:44 | DIAGNOSTIC IMAGING REPORT ---
CHEST 2 VIEWS ROUTINE HISTORY: pleural effusion COMPARISON: Chest 07/24/2016. FINDINGS: Small moderate right pleural effusion, unchanged. Patchy bibasilar densities persist. The heart remains mildly enlarged. There are postoperative changes and a cardiac valve prosthesis. Left-sided single lead pacemaker. No pneumothorax. Mild congestive change also remains unchanged. IMPRESSION: 1. No change in the small to moderate right pleural effusion. 2. Cardiomegaly and mild congestive change persists. 3. Patchy bibasilar densities are again noted. Electronically signed by: Lalito Villavicencio M.D. 07/25/2016 10:43 AM Dictated Date/Time: 07/25/2016 10:42 AM
[2016-07-25 11:16] VITALS: BP 147/67; PULSE 94; TEMP 36.5; O2SAT 97
--- NOTE | 2016-07-25 12:07 | Nephrology Consultation ---
Nephrology Consultation Date & Providers Date of Consultation: July 25, 2016. Primary Care Provider: Phoenix Klein III, CRNP Referring Provider: Reason for Consultation Evaluation of nonoliguric acute on chronic kidney injury History of Present Illness Mrs. Morales is a 76 year old white female who is seen at the request of Dr. Jose for evaluation of acute on chronic kidney injury. Medical records in the hospital EMR were reviewed today and are summarized as follows: Mrs. 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 Mrs. Morales developed the abrupt onset of sharp stabbing left flank pain one week ago. There was no radiation. She had no dysuria, gross hematuria, fever or skin rash. Her pain progressively worsened and she presented to the ED for evaluation 07/22/16. Chest CT w/ IV contrast was negative for PE. Creatinine has subsequently risen from 1.8 to 2.4. Mrs. Morales states that her pain has completely resolved following IV Dilaudid therapy. Past Medical/Surgical History Medical: # Stage IV CKD w/ creatinine 1.6 - 2.0 (EGFR 28 cc/min). 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 [place] [facility] Heart block s/p pacemaker 1994 # Breast CA s/p lumpectomy # L knee meniscal tear Allergies Coded Allergies: Penicillins (Verified Allergy, Severe, anaphylaxis 30yrs ago, also broke out with sores, 07/22/16) NOTE: Timentin 05/2003 tolerated without problem Diltiazem (Verified Allergy, Unknown, unknown, 07/22/16) Levofloxacin (Verified Allergy, Unknown, UNKNOWN, 07/22/16) Moxifloxacin (Verified Allergy, Unknown, UNKNOWN, 07/22/16) Aspirin (Verified Adverse Reaction, Intermediate, increased bleeding (on warfarin), 07/22/16) Atorvastatin (Verified Adverse Reaction, Unknown, & Crestor = muscle aches /pains, 07/22/16) NSAIDs (Verified Adverse Reaction, Unknown, AVOID PER DR. HICKS - [id number] , 07/22/16) Nortriptyline (Verified Adverse Reaction, Unknown, choking on food, 07/22/16 ) Quinidine (Verified Adverse Reaction, Unknown, flu-like symptoms, 07/22/16) Sulfamethoxazole w/Trimethoprim (Verified Adverse Reaction, Unknown, CONFUSION, 07/22/16) Inpatient Medications Current Inpatient Medications Medications (Trade) Dose Ordered Sig/Albin Route Start Time Stop Time Status Last Admin Dose Admin Ioversol (Optiray 320) 115 ml UD PRN IV 07/22/16 16:30 07/26/16 16:29 Acetaminophen (Tylenol Tab) 650 mg Q4H PRN PO 07/22/16 17:45 08/21/16 17:44 07/25/16 01:46 650 MG Al Hydrox/Mg Hydrox/Simethicone (Maalox Max Susp) 15 ml Q4H PRN PO 07/22/16 17:45 08/21/16 17:44 Magnesium Hydroxide (Milk Of Magnesia Susp) 30 ml Q12H PRN PO 07/22/16 17:45 08/21/16 17:44 Ondansetron HCl (Zofran Inj) 4 mg Q6H PRN IV 07/22/16 17:45 08/21/16 17:44 07/22/16 19:27 4 MG Nitroglycerin (Nitrostat Tab) 0.4 mg UD PRN SL 07/22/16 17:45 08/21/16 17:44 Polyethylene (Miralax Powder Packet) 17 gm DAILY PRN PO 07/22/16 17:45 08/21/16 17:44 07/24/16 08:59 17 GM Cyanocobalamin (Vitamin B-12 Tab) 1,000 mcg QAM PO 07/23/16 09:00 08/22/16 08:59 07/25/16 07:34 1,000 MCG Diazepam (Valium Tab) 5 mg HS PO 07/22/16 21:00 08/21/16 20:59 07/24/16 22:12 5 MG Diclofenac Sodium (Voltaren 1% Top Gel) 1 appln QID PRN EXT 07/22/16 17:45 08/21/16 17:44 Digoxin (Lanoxin Tab) 0.125 mg DAILY@1600 PO 07/23/16 16:00 08/22/16 15:59 07/24/16 15:45 0.125 MG EZETIMIBE (Zetia Tab) 10 mg HS PO 07/22/16 21:00 08/21/16 20:59 07/24/16 22:12 10 MG Fexofenadine HCl (Vickie Tab) 180 mg QAM PO 07/23/16 09:00 08/22/16 08:59 07/25/16 07:33 180 MG Furosemide (Lasix Tab) 40 mg QAM PO 07/23/16 09:00 08/22/16 08:59 07/25/16 07:34 40 MG Hydralazine HCl (Apresoline Tab) 25 mg BID PO 07/22/16 21:00 08/21/16 20:59 07/25/16 07:33 25 MG Insulin Glargine (Lantus Solostar Pen) 15 unit BID SC 07/22/16 21:00 08/21/16 20:59 07/25/16 07:35 15 UNIT Isosorbide Mononitrate (Imdur Ext Rel Tab) 30 mg QAM PO 07/23/16 09:00 08/22/16 08:59 07/25/16 07:33 30 MG Levothyroxine Sodium (Synthroid Tab) 175 mcg DAILYBB PO 07/23/16 06:30 08/22/16 06:29 07/25/16 05:35 175 MCG Metoprolol Succinate (Toprol Xl Tab) 100 mg QAM PO 07/23/16 09:00 08/22/16 08:59 07/25/16 07:34 100 MG Montelukast Sodium (Singulair Tab) 10 mg QAM PO 07/23/16 09:00 08/22/16 08:59 07/25/16 07:34 10 MG Pyridoxine HCl (Vitamin B-6 Tab) 100 mg QAM PO 07/23/16 09:00 08/22/16 08:59 07/25/16 07:34 100 MG Cholecalciferol (Vitamin D Tab) 1,000 inter.unit DAILY PO 07/23/16 09:00 08/22/16 08:59 07/25/16 07:34 1,000 INTER.UNIT Spironolactone (Aldactone Tab) 50 mg DAILY PO 07/23/16 09:00 08/22/16 08:59 07/25/16 07:33 50 MG Oxycodone/ Acetaminophen (Percocet 5-325mg Tab) 1 tab Q4H PRN PO 07/22/16 17:45 08/05/16 17:44 07/24/16 13:48 1 TAB Insulin Aspart (novoLOG ASPART) SLIDING SCALE G... ACHS SC 07/22/16 21:00 08/21/16 20:59 Miscellaneous (Iv Fluids Completed) 1 ea PRN PRN N/A 07/22/16 18:30 07/22/17 18:29 Glucose (Glucose 40% Gel) 15-30 GRAMS 15 GRAMS... UD PRN PO 07/22/16 19:00 08/21/16 18:59 Glucose (Glucose Chew Tab) 4-8 Tablets 4 Tabl... UD PRN PO 07/22/16 19:00 08/21/16 18:59 Dextrose (Dextrose 50% 50ML Syringe) 25-50ML OF 50% DW IV FOR... UD PRN IV 07/22/16 19:00 08/21/16 18:59 Glucagon (Glucagon Inj) 1 mg UD PRN SQ 07/22/16 19:00 08/21/16 18:59 Miscellaneous Information (Order Awaiting Action) 1 ea QS N/A 07/23/16 00:00 08/22/16 00:00 Gemfibrozil (Lopid Tab) 600 mg BID@0600,2100 PO 07/22/16 21:00 08/21/16 20:59 07/25/16 05:35 600 MG Family History Diabetes mellitus Heart disease Hypertension Negative for CKD / ESRD Social History Smoking Status: Never Smoker Drug Use: none Marital Status: Housing Status: lives with family Occupation: retired . Retired. Never a smoker Review of Systems Constitutional: No fever Respiratory: No cough, No shortness of breath Cardiovascular: No chest pain Abdomen: No nausea, No pain, No vomiting Musculoskeletal: + problem reported (L flank pain) A complete review of systems was performed. Pertinent positives are noted above. All other systems are negative. Physical Exam Date Time Temp Pulse Resp B/P Pulse Ox O2 Delivery O2 Flow Rate FiO2 07/25/16 11:16 36.5 94 18 147/67 97 Room Air 07/25/16 08:00 Nasal Cannula 2.0 07/25/16 07:46 36.7 107 20 125/67 94 Nasal Cannula 2.0 07/25/16 04:00 Nasal Cannula 2.0 07/25/16 03:18 36.9 102 18 149/75 98 Nasal Cannula 2.0 07/25/16 00:00 Nasal Cannula 2.0 07/24/16 23:05 36.6 60 16 119/61 98 Nasal Cannula 2.0 07/24/16 20:00 Nasal Cannula 2.0 07/24/16 19:26 36.7 70 18 117/64 96 Nasal Cannula 2.0 07/24/16 16:00 98 Nasal Cannula 2.0 07/24/16 15:47 36.6 88 18 138/69 98 Nasal Cannula 2.0 07/24/16 15:45 86 07/24/16 12:04 36.8 65 20 126/66 99 Nasal Cannula 2.5 07/24/16 12:00 Nasal Cannula 2.0 General Appearance: no apparent distress, + thin Head: normocephalic (temporal muscle wasting), atraumatic Eyes: PERRL, EOMI Neck: no adenopathy Respiratory/Chest: lungs clear Cardiovascular: regular rate, rhythm Abdomen/GI: non tender, soft Back: no CVA tenderness, + pertinent finding (no skin rash) Extremities/Musculoskelatal: no pedal edema Neurologic/Psych: alert, oriented x 3 Laboratory Results Renal US 07/24/16: The right kidney measures 11.2 x 5.4 x 5.1 cm and the left measures 10 x 5.3 x 6.2 cm. There is no hydronephrosis. An equivocal punctate nonobstructing calculus within the midpole the right kidney is probably artifactual. The kidneys are lobulated. No renal masses are identified by sonography. Irregularity of the lower pole of the right kidney is unchanged. There is mild renal cortical thinning. There is a 9 mm left renal cyst. Trace abdominal ascites is noted. Both ureteral jets were identified. Borderline splenomegaly is noted. Last 24 Hours Test 07/24/16 16:11 07/24/16 20:12 07/25/16 07:08 07/25/16 07:28 Bedside Glucose 121 mg/dl 148 mg/dl 116 mg/dl White Blood Count 5.61 K/uL Red Blood Count 3.58 M/uL Hemoglobin 8.8 g/dL Hematocrit 29.8 % Mean Corpuscular Volume 83.2 fL Mean Corpuscular Hemoglobin 24.6 pg Mean Corpuscular Hemoglobin Concent 29.5 g/dl RDW Standard Deviation 55.2 fL RDW Coefficient of Variation 18.0 % Platelet Count 176 K/uL Mean Platelet Volume 9.6 fL Prothrombin Time 22.1 SECONDS Prothromb Time International Ratio 2.0 Sodium Level 133 mmol/L Potassium Level 5.1 mmol/L Chloride Level 103 mmol/L Carbon Dioxide Level 21 mmol/L Anion Gap 9.0 mmol/L Blood Urea Nitrogen 64 mg/dl Creatinine 2.30 mg/dl Est Creatinine Clear Calc Drug Dose 20.7 ml/min Estimated GFR () 23.5 Estimated GFR (Non- 20.3 BUN/Creatinine Ratio 27.8 Random Glucose 99 mg/dl Calcium Level 9.0 mg/dl Test 07/25/16 11:17 Bedside Glucose 157 mg/dl Impression (1) Acute kidney injury (2) Chronic kidney disease (3) Contrast dye induced nephropathy (4) Back pain (5) Pleural effusion Patient admitted for evaluation of left flank pain. Renal US was negative for L kidney stone or obstruction. CTA was negative for PE. Creatinine has risen from 1.8 to 2.4 following IV contrast administration. Urinalysis is bland. Clinically suspect contrast induced nephropathy. Recommendations ACUTE KIDNEY INJURY: -- Patient remains nonoliguric. Rate of increase in serum creatinine appears to be slowing. Volume status and electrolyte balance remain acceptable. Renal US was negative for left kidney stone or obstruction. Patient is not currently on any nephrotoxic medications. Continue supportive care. Encourage oral hydration and monitor serial PRP. CHRONIC KIDNEY DISEASE: -- Baseline creatinine 1.6 - 2.0 ANEMIA: -- Will order FOBT and initiate anemia evaluation L FLANK PAIN: -- If recurrent, consider contrast negative abdominal CT
--- NOTE | 2016-07-25 13:43 | SURGERY PROGRESS NOTE ---
DATE: 07/25/2016 DATE: 07/25/2016. Ms. Morales is seen today. She is now requiring oxygen. She states that her breathing is not as good. She is adamant that she does not want a PleurX catheter inserted. I had to gently remind her how much better she felt after thoracentesis; however, this is temporizing. She understands and does not want any of this done, she does not "want any of this." I told her I would follow her up in the office in 2 weeks upon her discharge with an x-ray and we would discuss this again.
[2016-07-25 13:53] LABS: FERRITIN 19.3 ng/ml (8.0-388.0)
[2016-07-25 14:54] VITALS: BP 134/67; PULSE 65; TEMP 36.4; O2SAT 100
[2016-07-25] MEDS: DIGOXIN 0.125 MG TAB PO SCH (15:55)
[2016-07-25 19:54] VITALS: BP 124/53; PULSE 58; TEMP 36.8; O2SAT 92
[2016-07-25] MEDS ORDERED: NURSING VERBAL MED ORDER ONE (21:00)
[2016-07-25] MEDS ORDERED: ZOLPIDEM TARTRATE 5 MG TAB PO PRN (21:15)
[2016-07-25] MEDS: EZETIMIBE 10MG TAB PO SCH (21:19)
[2016-07-25] MEDS: DIAZEPAM 5MG TAB PO SCH ×2 (21:57→22:01)
[2016-07-25 23:46] VITALS: BP 135/65; PULSE 61; TEMP 36.7; O2SAT 97
[2016-07-26 04:00] VITALS: BP 129/71; PULSE 85; TEMP 36.6; O2SAT 97
[2016-07-26] MEDS: ACETAMINOPHEN 325 MG TAB PO PRN (04:48)
[2016-07-26] MEDS: LEVOTHYROXINE 175 MCG TAB PO SCH (06:02)
[2016-07-26] MEDS: GEMFIBROZIL 600 MG TAB PO SCH (06:02)
[2016-07-26] MEDS: INSULIN ASPART 100 UNITS/ML 3 ML PEN SC SCH ×2 (06:30→11:00)
[2016-07-26 07:35] VITALS: BP 123/60; PULSE 78; TEMP 36.8; O2SAT 98
[2016-07-26] MEDS: INSULIN GLARGINE SOLOSTAR 100 UNITS/ML 3 ML PEN SC SCH (07:53)
[2016-07-26] MEDS: SPIRONOLACTONE 25 MG TAB PO SCH (07:54)
[2016-07-26] MEDS: CHOLECALCIFEROL 1000 INTER.UNIT TAB PO SCH (07:54)
[2016-07-26] MEDS: PYRIDOXINE HCL 50 MG TAB PO SCH (07:54)
[2016-07-26] MEDS: MONTELUKAST SOD 10 MG TAB PO SCH (07:54)
[2016-07-26] MEDS: CYANOCOBALAMIN 500 MCG TAB (VIT B-12) PO SCH (07:55)
[2016-07-26] MEDS: METOPROLOL SUCC 50MG EXT REL TAB PO SCH (07:55)
[2016-07-26] MEDS: FUROSEMIDE 40 MG TAB PO SCH (07:55)
[2016-07-26] MEDS: FEXOFENADINE HCL 180 MG TAB PO SCH (07:56)
[2016-07-26] MEDS: ISOSORBIDE MONONITRATE 30 MG TABCR PO SCH (07:56)
[2016-07-26 08:00] VITALS: O2SAT 98
--- NOTE | 2016-07-26 08:02 | Hospitalist Progress Note ---
Hospitalist Progress Note Date of Service July 24, 2016. Subjective Pt evaluation today including: conversation w/ patient left flank pain improved. Objective Vital Signs Date Time Temp Pulse Resp B/P Pulse Ox O2 Delivery O2 Flow Rate FiO2 07/26/16 07:35 36.8 78 18 123/60 98 07/26/16 04:00 36.6 85 18 129/71 97 Nasal Cannula 2.0 07/26/16 04:00 Nasal Cannula 2.0 07/26/16 00:00 Nasal Cannula 2.0 07/25/16 23:46 36.7 61 18 135/65 97 Nasal Cannula 2.0 07/25/16 20:10 Room Air 2.0 Nasal Cannula 07/25/16 19:54 36.8 58 18 124/53 92 Room Air 07/25/16 16:10 Room Air 2.0 Nasal Cannula 07/25/16 15:55 63 07/25/16 14:54 36.4 65 16 134/67 100 2.0 07/25/16 12:00 Nasal Cannula 2.0 07/25/16 11:16 36.5 94 18 147/67 97 Room Air 07/25/16 08:00 Nasal Cannula 2.0 Physical Exam General Appearance: WD/WN Eyes: normal inspection ENT: normal ENT inspection Neck: supple Respiratory/Chest: chest non-tender Cardiovascular: regular rate, rhythm, + systolic murmur Abdomen: normal bowel sounds Extremities: normal range of motion Neurologic/Psychiatric: pipeline controller II-XII nml as tested Skin: normal color Laboratory Results Last 24 Hours Test 07/25/16 11:17 07/25/16 13:16 07/25/16 16:23 07/25/16 20:25 Bedside Glucose 157 mg/dl 119 mg/dl 142 mg/dl Iron Level 25 mcg/dl Total Iron Binding Capacity 412 mcg/dl Transferrin 328 mg/dl Transferrin % Saturation 5 % Ferritin 19.3 ng/ml Vitamin B12 Level 1384 pg/mL Folate 17.11 ng/mL Test 07/26/16 04:44 07/26/16 07:24 Bedside Glucose 108 mg/dl Assessment and Plan Ms. Morales is a 76 y/o female with PMHx of Systolic Congestive Heart Failure S/ P Pacemaker, Mechanical Mitral Valve, Persistent Atrial Fibrillation, COPD/ Asthma, T2DM, CKD Stage IV, Anemia of Chronic Disease, and Hypothyroidism, who presented to the ED because of left lateral back pain x1 day. Right pleural effusion s/p thoracentesis on 06/28/16: - Admit to tele for cardiac monitoring - O2 protocol- wears 2L O2 at night - Follows w/ Dr. Cueva- consulted appreciate recommendations Left lateral back pain, resolved w/ IV 2 mg Dilaudid given in ED: - Continue Oxycodone PRN - NOTE: patient allergic to NSAIDs - Will check Renal sono to rule out stones. Chronic systolic CHF: - Continue Lasix 40 mg daily - Monitor I&Os and daily weights - ECHO 06/27/16: * There is mild to moderate tricuspid regurgitation. * There is moderate asymmetric left ventricular hypertrophy. * Left ventricular systolic function is normal. * The right ventricle is mild to moderately dilated. * The left atrium is severely dilated. * The right atrium is moderate to severely dilated. * Mild to moderate aortic regurgitation. * There is a mechanical mitral valve. * Normal prosthetic mitral valve gradients. * Right ventricular systolic pressure is elevated at >60mmHg.Compared to an echocardiogram from 2015, the systolic function is now normal. Pulmonary pressures are higher. Persistent a.fib s/p pacemaker and s/p mechanical mitral valve: - Continue Digoxin 0.125 mg and Metoprolol 100 mg daily - Coumadin per daily INR. CKD stage IV- baseline Cr ~1.8- STABLE: Follow PRP COPD: Singulair 10 mg daily T2DM: Lantus 15 units SC BID and BSG ACHS w/ sliding insulin scale HTN: Hydralazine 25 mg BID Hypothyroidism: Synthroid 175 mcg daily HLD: Zetia 10 mg daily and Lopid 600 mg BID GI Prophylaxis: Maalox PRN, IV Zofran PRN, Colace and/or Milk of Mag PRN DVT Prophylaxis: Coumadin Code Status: LEVEL I, FULL
[2016-07-26 08:08] LABS: HEMATOCRIT 28.7 % (37-47); MEAN CELL VOLUME 82.7 fL (80-100); MEAN CORPUSCULAR HEMOGLOBIN 25.1 pg (25-34); MEAN CORPUSCULAR HGB CONC 30.3 g/dl (32-36); MEAN PLATELET VOLUME 10.2 fL (7.4-10.4); PLATELET COUNT 186 K/uL (130-400); RED BLOOD COUNT 3.47 M/uL (4.2-5.4); WHITE BLOOD COUNT 4.95 K/uL (4.8-10.8)
--- NOTE | 2016-07-26 08:12 | Hospitalist Progress Note ---
Hospitalist Progress Note Date of Service July 25, 2016. Subjective Pt evaluation today including: conversation w/ patient, chart review, lab review No flank pain. No fevers. Objective Vital Signs Date Time Temp Pulse Resp B/P Pulse Ox O2 Delivery O2 Flow Rate FiO2 07/26/16 07:35 36.8 78 18 123/60 98 Nasal Cannula 2.0 07/26/16 04:00 36.6 85 18 129/71 97 Nasal Cannula 2.0 07/26/16 04:00 Nasal Cannula 2.0 07/26/16 00:00 Nasal Cannula 2.0 07/25/16 23:46 36.7 61 18 135/65 97 Nasal Cannula 2.0 07/25/16 20:10 Room Air 2.0 Nasal Cannula 07/25/16 19:54 36.8 58 18 124/53 92 Room Air 07/25/16 16:10 Room Air 2.0 Nasal Cannula 07/25/16 15:55 63 07/25/16 14:54 36.4 65 16 134/67 100 2.0 07/25/16 12:00 Nasal Cannula 2.0 07/25/16 11:16 36.5 94 18 147/67 97 Room Air Physical Exam General Appearance: WD/WN Eyes: normal inspection ENT: normal ENT inspection Neck: supple Respiratory/Chest: chest non-tender Cardiovascular: regular rate, rhythm, + systolic murmur Abdomen: normal bowel sounds, non tender, soft Extremities: normal range of motion Neurologic/Psychiatric: 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 Morales is a 76 y/o female with PMHx of Systolic Congestive Heart Failure S/ P Pacemaker, Mechanical Mitral Valve, Persistent Atrial Fibrillation, COPD/ Asthma, T2DM, CKD Stage IV, Anemia of Chronic Disease, and Hypothyroidism, who presented to the ED because of left lateral back pain x1 day. Right pleural effusion s/p thoracentesis on 06/28/16: - Admit to tele for cardiac monitoring - O2 protocol- wears 2L O2 at night - Follows w/ Dr. Cueva- consulted appreciate recommendations - Follow up with him in 2 weeks. Left lateral back pain, resolved w/ IV 2 mg Dilaudid given in ED: - Continue Oxycodone PRN - NOTE: patient allergic to NSAIDs - Renal sono shows no evidence of obstruction or stones. Chronic systolic CHF: - Continue Lasix 40 mg daily - Monitor I&Os and daily weights - ECHO 06/27/16: * There is mild to moderate tricuspid regurgitation. * There is moderate asymmetric left ventricular hypertrophy. * Left ventricular systolic function is normal. * The right ventricle is mild to moderately dilated. * The left atrium is severely dilated. * The right atrium is moderate to severely dilated. * Mild to moderate aortic regurgitation. * There is a mechanical mitral valve. * Normal prosthetic mitral valve gradients. * Right ventricular systolic pressure is elevated at >60mmHg.Compared to an echocardiogram from 2015, the systolic function is now normal. Pulmonary pressures are higher. Persistent a.fib s/p pacemaker and s/p mechanical mitral valve: - Continue Digoxin 0.125 mg and Metoprolol 100 mg daily - Coumadin per daily INR. CKD stage IV- baseline Cr ~1.8- Mild increase in serum creatinine likely secondary to recent IV contrast exposure. Will ask for Renal input. Avoid nephrotoxic agents. COPD: Singulair 10 mg daily T2DM: Lantus 15 units SC BID and BSG ACHS w/ sliding insulin scale HTN: Hydralazine 25 mg BID Hypothyroidism: Synthroid 175 mcg daily HLD: Zetia 10 mg daily and Lopid 600 mg BID GI Prophylaxis: Maalox PRN, IV Zofran PRN, Colace and/or Milk of Mag PRN DVT Prophylaxis: Coumadin Code Status: LEVEL I, FULL
[2016-07-26 08:45] LABS: CREATININE 2.1 mg/dl (0.60-1.20); POTASSIUM 4.8 mmol/L (3.5-5.1)
[2016-07-26 09:39] LABS: CALCIUM 9.1 mg/dl (8.5-10.1)
--- NOTE | 2016-07-26 11:37 | Nephrology Progress Note ---
Nephrology Progress Note Date of Service July 26, 2016. Chief Complaint Evaluation of nonoliguric acute on chronic kidney injury Subjective Mrs. Morales was seen & examined in her hospital room this morning. She reports that her flank discomfort has completely resolved and she is anxious to return home. She currently denies fever, angina, dyspnea or abdominal discomfort. Review of Systems Constitutional: No fever Cardiovascular: No chest pain Respiratory: No dyspnea at rest Abdomen: No nausea, No pain, No vomiting Genitourinary - Female: No dysuria, No gross hematuria Extremities: No leg edema A complete review of systems was performed. Pertinent positives are noted above. All other systems are negative. Vital Signs Last 8 Hrs Date Time Temp Pulse Resp B/P Pulse Ox O2 Delivery O2 Flow Rate FiO2 07/26/16 08:00 98 Nasal Cannula 2.0 07/26/16 07:35 36.8 78 18 123/60 98 Nasal Cannula 2.0 07/26/16 04:00 36.6 85 18 129/71 97 Nasal Cannula 2.0 07/26/16 04:00 Nasal Cannula 2.0 I & O 24-Hour Column 07/26/16 08:00 Intake Total 1475 ml Output Total 3225 ml Balance -1750 ml Last Recorded Weight Weight (Kilograms): 74.300 Physical Exam General Appearance: no apparent distress Head: normocephalic, atraumatic Eyes: PERRL, EOMI Neck: no adenopathy Respiratory/Chest: lungs clear Cardiovascular: regular rate, rhythm Abdomen/GI: normal bowel sounds, non tender, soft Extremities/Musculoskelatal: no pedal edema Neurologic/Psych: alert, oriented x 3 Family History Diabetes mellitus Heart disease Hypertension Negative for CKD / ESRD Social History Smoking Status: Never smoker Drug Use: none Marital Status: Housing Status: lives with family Occupation: retired . Retired. Never a smoker Laboratory Results Past 24 Hours 07/26/16 07:06 07/26/16 07:06 Test 07/25/16 13:16 07/25/16 16:23 07/25/16 20:25 07/26/16 07:06 Iron Level 25 mcg/dl (35-150) Total Iron Binding Capacity 412 mcg/dl (250-450) Transferrin 328 mg/dl (200-360) Transferrin % Saturation 5 % (15-50) Ferritin 19.3 ng/ml (8.0-388.0) Vitamin B12 Level 1384 pg/mL (211-911) Folate 17.11 ng/mL (>5.38) Bedside Glucose 119 mg/dl (70-90) 142 mg/dl (70-90) Red Blood Count 3.47 M/uL (4.2-5.4) Mean Corpuscular Volume 82.7 fL (80-100) Mean Corpuscular Hemoglobin 25.1 pg (25-34) Mean Corpuscular Hemoglobin Concent 30.3 g/dl (32-36) RDW Standard Deviation 55.2 fL (36.4-46.3) RDW Coefficient of Variation 18.2 % (11.5-14.5) Mean Platelet Volume 10.2 fL (7.4-10.4) Anion Gap 9.0 mmol/L (3-11) Est Creatinine Clear Calc Drug Dose 22.7 ml/min Estimated GFR () 26.2 Estimated GFR (Non- 22.6 BUN/Creatinine Ratio 30.0 (10-20) Calcium Level 9.1 mg/dl (8.5-10.1) Test 07/26/16 07:24 07/26/16 09:55 Bedside Glucose 108 mg/dl (70-90) Allergies Coded Allergies: Penicillins (Verified Allergy, Severe, anaphylaxis 30yrs ago, also broke out with sores, 07/22/16) NOTE: Timentin 05/2003 tolerated without problem Diltiazem (Verified Allergy, Unknown, unknown, 07/22/16) Levofloxacin (Verified Allergy, Unknown, UNKNOWN, 07/22/16) Moxifloxacin (Verified Allergy, Unknown, UNKNOWN, 07/22/16) Aspirin (Verified Adverse Reaction, Intermediate, increased bleeding (on warfarin), 07/22/16) Atorvastatin (Verified Adverse Reaction, Unknown, & Crestor = muscle aches /pains, 07/22/16) NSAIDs (Verified Adverse Reaction, Unknown, AVOID PER DR. HICKS - [id number] , 07/22/16) Nortriptyline (Verified Adverse Reaction, Unknown, choking on food, 07/22/16 ) Quinidine (Verified Adverse Reaction, Unknown, flu-like symptoms, 07/22/16) Sulfamethoxazole w/Trimethoprim (Verified Adverse Reaction, Unknown, CONFUSION, 07/22/16) Medications Current Inpatient Medications Medications (Trade) Dose Ordered Sig/Albin Route Start Time Stop Time Status Last Admin Dose Admin Ioversol (Optiray 320) 115 ml UD PRN IV 07/22/16 16:30 07/26/16 16:29 Acetaminophen (Tylenol Tab) 650 mg Q4H PRN PO 07/22/16 17:45 08/21/16 17:44 07/26/16 04:48 650 MG Al Hydrox/Mg Hydrox/Simethicone (Maalox Max Susp) 15 ml Q4H PRN PO 07/22/16 17:45 08/21/16 17:44 Magnesium Hydroxide (Milk Of Magnesia Susp) 30 ml Q12H PRN PO 07/22/16 17:45 08/21/16 17:44 Ondansetron HCl (Zofran Inj) 4 mg Q6H PRN IV 07/22/16 17:45 08/21/16 17:44 07/22/16 19:27 4 MG Nitroglycerin (Nitrostat Tab) 0.4 mg UD PRN SL 07/22/16 17:45 08/21/16 17:44 Polyethylene (Miralax Powder Packet) 17 gm DAILY PRN PO 07/22/16 17:45 08/21/16 17:44 07/24/16 08:59 17 GM Cyanocobalamin (Vitamin B-12 Tab) 1,000 mcg QAM PO 07/23/16 09:00 08/22/16 08:59 07/26/16 07:55 1,000 MCG Diazepam (Valium Tab) 5 mg HS PO 07/22/16 21:00 08/21/16 20:59 07/24/16 22:12 5 MG Diclofenac Sodium (Voltaren 1% Top Gel) 1 appln QID PRN EXT 07/22/16 17:45 08/21/16 17:44 Digoxin (Lanoxin Tab) 0.125 mg DAILY@1600 PO 07/23/16 16:00 08/22/16 15:59 07/25/16 15:55 0.125 MG EZETIMIBE (Zetia Tab) 10 mg HS PO 07/22/16 21:00 08/21/16 20:59 07/25/16 21:19 10 MG Fexofenadine HCl (Vickie Tab) 180 mg QAM PO 07/23/16 09:00 08/22/16 08:59 07/26/16 07:56 180 MG Furosemide (Lasix Tab) 40 mg QAM PO 07/23/16 09:00 08/22/16 08:59 07/26/16 07:55 40 MG Hydralazine HCl (Apresoline Tab) 25 mg BID PO 07/22/16 21:00 08/21/16 20:59 07/26/16 07:56 25 MG Insulin Glargine (Lantus Solostar Pen) 15 unit BID SC 07/22/16 21:00 08/21/16 20:59 07/26/16 07:53 15 UNIT Isosorbide Mononitrate (Imdur Ext Rel Tab) 30 mg QAM PO 07/23/16 09:00 08/22/16 08:59 07/26/16 07:56 30 MG Levothyroxine Sodium (Synthroid Tab) 175 mcg DAILYBB PO 07/23/16 06:30 08/22/16 06:29 07/26/16 06:02 175 MCG Metoprolol Succinate (Toprol Xl Tab) 100 mg QAM PO 07/23/16 09:00 08/22/16 08:59 07/26/16 07:55 100 MG Montelukast Sodium (Singulair Tab) 10 mg QAM PO 07/23/16 09:00 08/22/16 08:59 07/26/16 07:54 10 MG Pyridoxine HCl (Vitamin B-6 Tab) 100 mg QAM PO 07/23/16 09:00 08/22/16 08:59 07/26/16 07:54 100 MG Cholecalciferol (Vitamin D Tab) 1,000 inter.unit DAILY PO 07/23/16 09:00 08/22/16 08:59 07/26/16 07:54 1,000 INTER.UNIT Spironolactone (Aldactone Tab) 50 mg DAILY PO 07/23/16 09:00 08/22/16 08:59 07/26/16 07:54 50 MG Oxycodone/ Acetaminophen (Percocet 5-325mg Tab) 1 tab Q4H PRN PO 07/22/16 17:45 08/05/16 17:44 07/24/16 13:48 1 TAB Insulin Aspart (novoLOG ASPART) SLIDING SCALE G... ACHS SC 07/22/16 21:00 08/21/16 20:59 Miscellaneous (Iv Fluids Completed) 1 ea PRN PRN N/A 07/22/16 18:30 07/22/17 18:29 Glucose (Glucose 40% Gel) 15-30 GRAMS 15 GRAMS... UD PRN PO 07/22/16 19:00 08/21/16 18:59 Glucose (Glucose Chew Tab) 4-8 Tablets 4 Tabl... UD PRN PO 07/22/16 19:00 08/21/16 18:59 Dextrose (Dextrose 50% 50ML Syringe) 25-50ML OF 50% DW IV FOR... UD PRN IV 07/22/16 19:00 08/21/16 18:59 Glucagon (Glucagon Inj) 1 mg UD PRN SQ 07/22/16 19:00 08/21/16 18:59 Miscellaneous Information (Order Awaiting Action) 1 ea QS N/A 07/23/16 00:00 08/22/16 00:00 Gemfibrozil (Lopid Tab) 600 mg BID@0600,2100 PO 07/22/16 21:00 08/21/16 20:59 07/26/16 06:02 600 MG Zolpidem Tartrate (Ambien Tab) 5 mg HSZ PRN PO 07/25/16 21:15 08/24/16 21:14 07/25/16 21:57 5 MG Impression (1) Acute kidney injury (2) Chronic kidney disease (3) Contrast dye induced nephropathy (4) Back pain (5) Pleural effusion Patient admitted for evaluation of left flank pain. Renal US was negative for L kidney stone or obstruction. CTA was negative for PE. Creatinine has risen from 1.8 to 2.4 following IV contrast administration. Urinalysis is bland. Clinically suspect contrast induced nephropathy. Recommendations ACUTE KIDNEY INJURY: -- Resolved. Continue supportive care CHRONIC KIDNEY DISEASE: -- Baseline creatinine 1.6 - 2.0 -- Patient expects to be discharged to home today. I have asked her to schedule a Nephrology follow up appointment w/ me in 2 - 4 weeks ANEMIA: -- FOBT is negative x 1. Iron stores are low. Discussed w/ patient today. She will schedule follow up evaluation w/ Dr. Kaminski. He has provided her with IV iron in the past. L FLANK PAIN: -- If recurrent, consider contrast negative abdominal CT
[2016-07-26 11:55] VITALS: BP 141/72; PULSE 63; TEMP 36.6; O2SAT 95
--- NOTE | 2016-07-26 12:13 | Discharge Instructions ---
Discharge Instructions Date of Service July 26, 2016. Admission Reason for Admission: Back Pain, Pleural Effusion Discharge Discharge Diagnosis / Problem: Right pleural effusion Discharge Goals Goal(s): Decrease discomfort Activity Recommendations Activity Limitations: per Instructions/Follow-up section Lifting Limitations: gradually increase as tolerated Exercise/Sports Limitations: gradually increase as tolerated Shower/Bathe: no limitations . Instructions / Follow-Up Instructions / Follow-Up Pulmonary Medicine Nephrology PCP Current Hospital Diet Patient's current hospital diet: AHA Diet (Heart Healthy), Diabetes Type 2 Diet Discharge Diet Recommended Diet: AHA Diet (Heart Healthy) Pending Studies Studies pending at discharge: yes List of pending studies: BMP, INR Laboratory Results Hemoglobin A1c Test 05/27/16 08:13 Range/Units Estimated Average Glucose 123 mg/dl Hemoglobin A1c 5.9 H 4.5-5.6 % Lipid Panel Test 05/27/16 08:13 Range/Units Triglycerides Level 136 0-150 mg/dl Cholesterol Level 135 0-200 mg/dl HDL Cholesterol 26 mg/dl Cholesterol/HDL Ratio 5.2 LDL Cholesterol, Calculated 82 mg/dl Medical Emergencies . Who to Call and When: Medical Emergencies: If at any time you feel your situation is an emergency, please call 911 immediately. . Non-Emergent Contact Non-Emergency issues call your: Primary Care Provider Call Non-Emergent contact if: you have a fever . Past History Medical & Surgical History: (1) Acute on chronic diastolic CHF (congestive heart failure) (2) COPD (chronic obstructive pulmonary disease) (3) SOB (shortness of breath) (4) Pleural effusion, right (5) CKD (chronic kidney disease) (6) Contrast dye induced nephropathy (7) Replacement of mitral valve (8) Cardiac pacemaker procedure . "Provider Documentation" section prepared by Saba Jose. . Manager Of Training Recommendations Manager Of Training Recommendations: Follow up with Nephrology and Thoracic Surgery in one to two weeks. VTE Core Measure Inpt VTE Proph given/why not?: Warfarin (Coumadin), T.E.D. Stockings, SCD's
[2016-07-26] MEDS ORDERED: WARFARIN SOD 3 MG TAB PO ONE (12:30)
[2016-07-26 12:50] VITALS: BP 141/72; PULSE 63; TEMP 36.6; O2SAT 95
--- NOTE | 2016-07-26 19:21 | Discharge Summary ---
Discharge Summary Date of Service July 26, 2016. Discharge Summary Admission Date: July 25, 2016 at 14:49 Discharge Date: July 26, 2016 Discharge Disposition: Home Principal Diagnosis: Left flank pain Problems/Secondary Diagnoses: Chronic kidney disease stage 3 s/p Mechanical valve replacement, mitral Right pleural effusion s/p Pacer Immunizations: Have You Had Influenza Vaccine: Yes Influenza Vaccine Date: Dec 23, 2010 History of Tetanus Vaccine?: utd History of Pneumococcal: Yes History of Hepatitis B Vaccine: No Consultations: Nephrology Thoracic surgery Medication Reconciliation Continued Medications: Cholecalciferol (Vitamin D3) 1,000 Unit Cap 1000 INTER.UNIT PO DAILY Cyanocobalamin (Vitamin B-12) 1,000 Mcg Tab 1000 MCG PO QAM Diazepam (Valium) 5 Mg Tab 5 MG PO HS Diclofenac Sodium (Topical) (Diclofenac Sodium) 1 % Gel 1 APPLN TOP QID PRN for Pain-Affected Joints Digoxin (Digoxin) 0.125 Mg Tab 0.125 MG PO QAM Ezetimibe (Ezetimibe) 10 Mg Tab 10 MG PO HS Fexofenadine Hcl (Vickie) 180 Mg Tab 180 MG PO QAM, TAB Furosemide (Furosemide) 40 Mg Tab 40 MG PO QAM Gemfibrozil (Gemfibrozil) 600 Mg Tab 600 MG PO BID TAKE THIS MEDICATION 30 MINUTES BEFORE BREAKFAST AND BEDTIME Hydralazine Hcl (Apresoline) 25 Mg Tab 25 MG PO BID Insulin Aspart (Novolog) 100 Units/Ml Inj 1 DOSE SC ACHS PRN for As Needed COVERAGE DIRECTED BY SLIDING SCALE Insulin Glargine (Lantus Solostar) 100 Unit/Ml Inj 15 UNIT SC BID for 15 Days Isosorbide Mononitrate (Isosorbide Mononitrate ER) 30 Mg Tabcr 30 MG PO QAM Levothyroxine Sodium (Synthroid) 175 Mcg Tab 175 MCG PO DAILY, TAB Metoprolol Succinate (Metoprolol Succinate ER) 50 Mg Tabcr 100 MG PO QAM for 30 Days Misc Natural Products (Osteo Bi-Flex Joint Shiel) 1 Tab Tab 1 TAB PO BID Montelukast Sod (Montelukast Sodium) 10 Mg Tab 10 MG PO QAM Oxycodone HCl (Oxycodone HCl) 5 Mg Tab 5 MG PO DAILY PRN for Pain, #60 Pyridoxine (Vitamin B6) 100 Mg Tab 100 MG PO QAM Spironolactone (Aldactone) 50 Mg Tab 50 MG PO DAILY Trospium Chloride (Trospium Chloride) 20 Mg Tab 20 MG PO DAILY Warfarin Sod (Jantoven) 3 Mg Tab 3 MG PO WK, TAB TAKE 3 MG EVERY FRIDAY OR OTHERWISE DIRECTED TO TAKE BY ANTICOAGULATION CLINIC/MD Warfarin Sodium (Coumadin) 4 Mg Tab 4 MG PO 6XWK, TAB TAKE 4 MG EVERY FRIDAY,FRIDAY,FRIDAY,FRIDAY,FRIDAY AND FRIDAY OR OTHERWISE DIRECTED TO TAKE BY ANTICOAGULATION CLINIC/MD Discharge Exam Physical Exam: General Appearance: WD/WN Eyes: normal inspection ENT: normal ENT inspection Neck: supple, no JVD Respiratory/Chest: chest non-tender, + decreased breath sounds Cardiovascular: regular rate, rhythm, no edema Abdomen / GI: normal bowel sounds, non tender, soft Extremities: normal inspection Neurologic/Psychiatric: twister doffer II-XII nml as tested, alert, oriented x 3 Skin: normal color Hospital Course Ms. Morales is a 76 y/o female with PMHx of Systolic Congestive Heart Failure S/ P Pacemaker, Mechanical Mitral Valve, Persistent Atrial Fibrillation, COPD/ Asthma, T2DM, CKD Stage IV, Anemia of Chronic Disease, and Hypothyroidism, who presented to the ED because of left lateral back pain x1 day. Right pleural effusion s/p thoracentesis on 06/28/16: - Admit to tele for cardiac monitoring - O2 protocol- wears 2L O2 at night - Follows w/ Dr. Cueva- consulted appreciate recommendations - Follow up with him in 2 weeks. Left lateral back pain, resolved w/ IV 2 mg Dilaudid given in ED: - Continue Oxycodone PRN - NOTE: patient allergic to NSAIDs - Renal sono shows no evidence of obstruction or stones. Chronic systolic CHF: - Continue Lasix 40 mg daily - Monitor I&Os and daily weights - ECHO 06/27/16: * There is mild to moderate tricuspid regurgitation. * There is moderate asymmetric left ventricular hypertrophy. * Left ventricular systolic function is normal. * The right ventricle is mild to moderately dilated. * The left atrium is severely dilated. * The right atrium is moderate to severely dilated. * Mild to moderate aortic regurgitation. * There is a mechanical mitral valve. * Normal prosthetic mitral valve gradients. * Right ventricular systolic pressure is elevated at >60mmHg.Compared to an echocardiogram from 2015, the systolic function is now normal. Pulmonary pressures are higher. Persistent a.fib s/p pacemaker and s/p mechanical mitral valve: - Continue Digoxin 0.125 mg and Metoprolol 100 mg daily - Coumadin per daily INR. - INR testing as per coumadin clinic CKD stage IV- baseline Cr ~1.8- Mild increase in serum creatinine likely secondary to recent IV contrast exposure. Will ask for Renal input. Avoid nephrotoxic agents. COPD: Singulair 10 mg daily T2DM: Lantus 15 units SC BID and BSG ACHS w/ sliding insulin scale HTN: Hydralazine 25 mg BID Hypothyroidism: Synthroid 175 mcg daily HLD: Zetia 10 mg daily and Lopid 600 mg BID GI Prophylaxis: Maalox PRN, IV Zofran PRN, Colace and/or Milk of Mag PRN DVT Prophylaxis: Coumadin Code Status: LEVEL I, FULL Total Time Spent: Greater than 30 minutes This includes examination of the patient, discharge planning, medication reconciliation, and communication with other providers. Discharge Instructions Please refer to the electronic Patient Visit Report (Discharge Instructions) for additional information.
[2016-07-27] MEDS ORDERED: WARFARIN SOD 4 MG TAB PO SCH (16:00)
[2016-07-31] MEDS ORDERED: WARFARIN SOD 3 MG TAB PO SCH (16:00)
[2016-09-25] MEDS ORDERED: WARF4TAB8 PO (11:24)
[2016-11-27] MEDS ORDERED: METO50TA7 PO (11:08)
[2016-12-03] MEDS ORDERED: WARF4TAB PO ×2 (10:34)
== END 2016-07-26 14:21 | disposition home health service (06) | DRG 187 ==
LOC: ENRESERVTM → ENRESERVDT → EDBD 15:20 → C.EDA 15:21 → C.MED 17:48 → OBSVTOIN 07-25 14:49
PROVIDERS: ADMIT Hospitalist; ATTEND Hospitalist
DX: J90 Pleural effusion, not elsewhere classified (principal); I50.22 Chronic systolic (congestive) heart failure; N18.4 Chronic kidney disease, stage 4 (severe); N17.9 Acute kidney failure, unspecified; I48.1 Persistent atrial fibrillation; J44.9 Chronic obstructive pulmonary disease, unspecified; T50.8X5A Adverse effect of diagnostic agents, initial encounter; E11.21 Type 2 diabetes mellitus with diabetic nephropathy; Z95.2 Presence of prosthetic heart valve; D63.1 Anemia in chronic kidney disease; E03.9 Hypothyroidism, unspecified; Z95.0 Presence of cardiac pacemaker; N14.2 Nephropathy induced by unspecified drug, medicament or biological substance; Z88.0 Allergy status to penicillin; Z53.8 Procedure and treatment not carried out for other reasons; Y92.239 Unspecified place in hospital as the place of occurrence of the external cause; I51.7 Cardiomegaly

== ENCOUNTER → 2016-07-22 | Outpatient (CLI) | payer BC ==
--- NOTE | 2016-07-22 11:55 | DIAGNOSTIC IMAGING REPORT ---
CHEST 2 VIEWS ROUTINE CLINICAL HISTORY: J90 Pleural effusion, [id number] COMPARISON STUDY: 07/15/2016 FINDINGS: There are postsurgical changes of a midline sternotomy and valvular replacement. The heart remains enlarged. There is a left subclavian single chamber central venous pacemaker. There is continued radiographic evidence of congestive failure/fluid overload. There is a persistent small right pleural effusion with associated right basilar airspace opacities[ IMPRESSION: No significant change. Cardiomegaly and radiographic evidence of mild congestive failure/fluid overload. Persistent right pleural effusion with associated right lower lobe atelectasis/consolidation. Electronically signed by: Nikita Culp M.D. 07/22/2016 11:53 AM Dictated Date/Time: 07/22/2016 11:52 AM
== END | disposition home or self-care (01) ==
LOC: C.RAD1850 11:26
PROVIDERS: ATTEND Surgery
DX: J90 Pleural effusion, not elsewhere classified (principal); I51.7 Cardiomegaly; J98.11 Atelectasis

== ENCOUNTER 2016-07-27 12:21 | Emergency (ER) | payer BC, OTHER ==
[~2016-07-27] VITALS: Ht 160 cm; Wt 71.4 kg
[~2016-07-27 12:21] MED LIST changes: +OXYC-609 PO
[2016-07-27 12:46] VITALS: TEMP 36.7; Ht 160 cm; Wt 71.4 kg
--- NOTE | 2016-07-27 13:00 | DIAGNOSTIC IMAGING REPORT ---
RIGHT ELBOW 3 VIEWS HISTORY: Right elbow swelling at IV site Right COMPARISON: Right elbow 03/20/2015. FINDINGS: There is no fracture or dislocation. Soft tissue swelling at the antecubital fossa. No joint effusion. No radiopaque foreign bodies. IMPRESSION: No fractures. Soft tissue swelling at the antecubital fossa. Electronically signed by: Lalito Villavicencio M.D. 07/27/2016 12:59 PM Dictated Date/Time: 07/27/2016 12:58 PM
--- NOTE | 2016-07-27 14:58 | DIAGNOSTIC IMAGING REPORT ---
RIGHT UPPER EXTREMITY VENOUS DOPPLER HISTORY: right arm swelling at IV site, antecubital. ?Phlebitis COMPARISON STUDY: None. FINDINGS: The right internal jugular vein is patent. There is normal flow within the right subclavian vein. There is normal flow and compressibility within the right axillary, basilic, brachial, radial, and ulnar veins. The right cephalic vein is thrombosed from the distal upper arm to the proximal forearm. IMPRESSION: Thrombosed cephalic vein from the distal upper arm to the proximal forearm. Electronically signed by: Lalito Villavicencio M.D. 07/27/2016 2:57 PM Dictated Date/Time: 07/27/2016 2:55 PM
[2016-07-27 15:03] VITALS: BP 132/66; PULSE 76; O2SAT 97
--- NOTE | 2016-07-27 15:26 | EMERGENCY ROOM VISIT NOTE ---
History First contact with patient: 12:23 Chief Complaint: ARM PAIN Stated Complaint: SWELLING IN RIGHT ARM History of Present Illness The patient is a 76 year old female who presents to the Emergency Room with complaints of right antecubital pain since yesterday after having IV removed the same day. She notes a hard lump in the area. She has no other complaints. No chest pain, no fever, no swelling, no drainage, no numbness or tingling. Review of Systems See HPI for pertinent positives and negatives. A total of 6 systems were reviewed and were otherwise negative. Past Medical/Surgical History Medical Problems: (1) Acute kidney injury (2) Acute pancreatitis (3) Acute respiratory failure with hypoxia (4) Acute systolic congestive heart failure (5) Acute urinary tract infection (6) Anemia (7) Asthma (8) Atrial fibrillation (9) Cardiac pacemaker procedure (10) Cholecystectomy (11) Chronic kidney disease (12) Chronic obstructive lung disease (13) CKD (chronic kidney disease) (14) Contrast dye induced nephropathy (15) COPD (chronic obstructive pulmonary disease) (16) Deep venous thrombosis (17) Diabetes mellitus (18) Flank pain (19) History of - peptic ulcer (20) Hysterectomy (21) PERSONAL HX OF TIA,& CEREBRAL INFARCTION W/OUT RES DEFICITS (22) Pneumonia (23) Replacement of mitral valve (24) Sepsis Surgical Problems: (1) History of cholecystectomy Family History Diabetes mellitus Heart disease Hypertension Social History Smoking Status: Never Smoker Alcohol Use: none Drug Use: none Marital Status: Housing Status: lives with family Occupation Status: retired Current/Historical Medications Scheduled Cholecalciferol (Vitamin D3), 1,000 INTER.UNIT PO DAILY Cyanocobalamin (Vitamin B-12), 1,000 MCG PO QAM Diazepam (Valium), 5 MG PO HS Digoxin (Digoxin), 0.125 MG PO QAM Ezetimibe (Ezetimibe), 10 MG PO HS Fexofenadine Hcl (Vickie), 180 MG PO QAM Furosemide (Furosemide), 40 MG PO QAM Gemfibrozil (Gemfibrozil), 600 MG PO BID Hydralazine Hcl (Apresoline), 25 MG PO BID Insulin Glargine (Lantus Solostar), 15 UNIT SC BID Isosorbide Mononitrate (Isosorbide Mononitrate ER), 30 MG PO QAM Levothyroxine Sodium (Synthroid), 175 MCG PO DAILY Metoprolol Succinate (Metoprolol Succinate ER), 100 MG PO QAM Misc Natural Products (Osteo Bi-Flex Joint Shiel), 1 TAB PO BID Montelukast Sod (Montelukast Sodium), 10 MG PO QAM Pyridoxine (Vitamin B6), 100 MG PO QAM Spironolactone (Aldactone), 50 MG PO DAILY Trospium Chloride (Trospium Chloride), 20 MG PO DAILY Warfarin Sod (Jantoven), 3 MG PO WK Warfarin Sodium (Coumadin), 4 MG PO 6XWK Scheduled PRN Diclofenac Sodium (Topical) (Diclofenac Sodium), 1 APPLN TOP QID PRN for Pain- Affected Joints Insulin Aspart (Novolog), 1 DOSE SC ACHS PRN for As Needed Oxycodone HCl (Oxycodone HCl), 5 MG PO DAILY PRN for Pain Allergies Coded Allergies: Penicillins (Verified Allergy, Severe, anaphylaxis 30yrs ago, also broke out with sores, 07/27/16) NOTE: Timentin 05/2003 tolerated without problem Diltiazem (Verified Allergy, Unknown, unknown, 07/27/16) Levofloxacin (Verified Allergy, Unknown, UNKNOWN, 07/27/16) Moxifloxacin (Verified Allergy, Unknown, UNKNOWN, 07/27/16) Aspirin (Verified Adverse Reaction, Intermediate, increased bleeding (on warfarin), 07/27/16) Atorvastatin (Verified Adverse Reaction, Unknown, & Crestor = muscle aches /pains, 07/27/16) NSAIDs (Verified Adverse Reaction, Unknown, AVOID PER DR. HICKS - [id number] , 07/27/16) Nortriptyline (Verified Adverse Reaction, Unknown, choking on food, ) Quinidine (Verified Adverse Reaction, Unknown, flu-like symptoms, 07/27/16) Sulfamethoxazole w/Trimethoprim (Verified Adverse Reaction, Unknown, CONFUSION, 07/27/16) Physical Exam Vital Signs Date Time Temp Pulse Resp B/P Pulse Ox O2 Delivery O2 Flow Rate FiO2 07/27/16 15:03 76 18 132/66 97 Room Air 07/27/16 12:46 36.7 78 20 164/70 96 Room Air Physical Exam GENERAL: Awake, alert, well-appearing, in no distress HENT: Normocephalic, atraumatic. EYES: Normal conjunctiva. Sclera non-icteric. MUSCULOSKELETAL: Right arm is examined. There is some firmness over the veins of the right an occasional fossa. Venipuncture site obvious. No erythema. No purulent drainage. NEURO: Normal sensorium. No sensory or motor deficits noted. SKIN: No rash or jaundice noted. Medical Decision & Procedures ER Provider Diagnostic Interpretation: X-ray imaging of the right elbow was negative for foreign body or fracture. soft tissue swelling noted. Ultrasound was consistent with superficial phlebitis. Medical Decision The patient was evaluated. She was concerned that she may have a retained foreign body or problem at a venipuncture site in the right arm. She was discharged discharge from the hospital yesterday. Differential includes thrombo -phlebitis, foreign body, abscess, cellulitis, as well as others. An x-ray and ultrasound were performed. This was consistent with superficial phlebitis. The patient was given warm compresses. Conservative management was discussed. Unfortunately because of her allergies she cannot take aspirin or NSAIDs. She will use warm compresses and Tylenol. She will follow-up closely on Friday. I gave my usual and customary discussion regarding this issue. Return instructions were outlined and the patient was discharged in stable condition. Impression Primary Impression: Superficial phlebitis Departure Information Dispostion Home / Self-Care Referrals Phoenix Klein III, CRNP (PCP) Patient Instructions My [facility] Additional Instructions Warm compresses for 20 minutes at a time four times daily for 2-3 days. Tylenol: Take 1000 mg every 6 hours as needed for pain. Do not take more than 3000 mg in a 24 hour period. Follow-up with her primary doctor on Friday. Return to the ER immediately for increasing pain, spreading redness, fevers, pus -like drainage, severe pain, or as needed.
[2016-09-25] MEDS ORDERED: WARF4TAB8 PO (11:24)
[2016-11-27] MEDS ORDERED: METO50TA7 PO (11:08)
[2016-12-03] MEDS ORDERED: WARF4TAB PO ×2 (10:34)
== END 2016-07-27 15:36 | disposition home or self-care (01) ==
LOC: C.EDC 12:22
DX: I80.8 Phlebitis and thrombophlebitis of other sites (principal); N17.9 Acute kidney failure, unspecified; I50.20 Unspecified systolic (congestive) heart failure; Z87.440 Personal history of urinary (tract) infections; J45.909 Unspecified asthma, uncomplicated; I48.91 Unspecified atrial fibrillation; Z95.0 Presence of cardiac pacemaker; N18.9 Chronic kidney disease, unspecified; J44.9 Chronic obstructive pulmonary disease, unspecified; Z86.718 Personal history of other venous thrombosis and embolism; E11.9 Type 2 diabetes mellitus without complications; Z87.19 Personal history of other diseases of the digestive system; Z83.3 Family history of diabetes mellitus; Z82.49 Family history of ischemic heart disease and other diseases of the circulatory system; Z79.4 Long term (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 of insulin; Z79.01 Long term (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 of anticoagulants; Z79.899 Other long term (current) drug therapy

== ENCOUNTER → 2016-08-07 | Outpatient (CLI) | payer BC ==
[~2016-08-07] MED LIST changes: +DOXY100C2 PO; +INHALER INH; +INSDGI SC; -KETO0.5S22 OPL; +METO50TA7 PO; -POLYSOL50 OPL; -PRDFOPS OPL; +TPRSR/50 PO; +WARF4TAB PO; +WARF4TAB8 PO
--- NOTE | 2016-08-07 09:55 | DIAGNOSTIC IMAGING REPORT ---
TWO VIEW CHEST CLINICAL HISTORY: Pleural effusion. FINDINGS: PA and lateral chest radiographs are compared to study dated 07/25/2016 and correlated with chest CT dated 07/22/2016. A single lead cardiac pacemaker is unchanged in position and partially obscured the left upper chest. The patient is status post midline sternotomy and cardiac valve surgery. The heart is enlarged and there is atherosclerotic calcification of the thoracic aorta. There is pulmonary vascular congestion. There is a small right pleural effusion with right basilar consolidation. No left pleural effusion is seen. Additional foci of linear atelectasis versus scarring are present in both lungs. There is no pneumothorax. The skeletal structures are osteopenic. Degenerative change is noted in the thoracic spine. IMPRESSION: 1. Cardiomegaly and cardiac pacemaker. There is mild pulmonary vascular congestion. 2. Small right pleural effusion with right basilar atelectasis. This likely represents atelectasis. The pleural effusion is unchanged to modestly decreased in size from 07/25/2016. Correlated clinically for evidence of superimposed pneumonia. 3. The left lung is grossly clear. Electronically signed by: Ventura Kaplan M.D. 08/07/2016 9:54 AM Dictated Date/Time: 08/07/2016 9:49 AM
== END | disposition home or self-care (01) ==
LOC: C.RAD1850 09:34
PROVIDERS: ATTEND Surgery
DX: J90 Pleural effusion, not elsewhere classified (principal); J98.11 Atelectasis; I51.7 Cardiomegaly; Z95.0 Presence of cardiac pacemaker

== ENCOUNTER 2016-08-17 12:29 | Emergency (ER) | payer BC ==
[~2016-08-17] VITALS: Ht 160 cm; Wt 71.0 kg
[~2016-08-17 12:29] MED LIST changes: -DOXY100C2 PO; -INHALER INH; -INSDGI SC; -METO50TA7 PO; -TPRSR/50 PO; -WARF3TAB6 PO; -WARF4TAB PO; -WARF4TAB8 PO
[2016-08-17 12:40] VITALS: TEMP 36.6; Ht 160 cm; Wt 71.0 kg
[2016-08-17] MEDS ORDERED: OXYCODONE HCL IR 5 MG TAB (IMMEDIATE RELEASE) PO STA (13:38)
--- NOTE | 2016-08-17 14:54 | DIAGNOSTIC IMAGING REPORT ---
CERVICAL SPINE CT CT DOSE: 180.24 mGy.cm HISTORY: Fall, left shoulder pain. Neck pain TECHNIQUE: Multiaxial CT images of the cervical spine were performed and reformatted in the sagittal and coronal plane without the use of contrast. COMPARISON: Cervical spine CT 07/03/2015. FINDINGS: No fractures. Moderate degenerative disease at C6-C7, unchanged. Minimal step nielsen anterolisthesis of C4 and C5 and C5 on C6, unchanged. Prevertebral soft tissues and the C1-C2 interval are intact. No pneumothorax. IMPRESSION: No fractures within the cervical spine. Electronically signed by: Lalito Villavicencio M.D. 08/17/2016 2:53 PM Dictated Date/Time: 08/17/2016 2:48 PM
--- NOTE | 2016-08-17 15:02 | DIAGNOSTIC IMAGING REPORT ---
LEFT SHOULDER 3 VIEWS HISTORY: Fall, left shoulder pain COMPARISON: None. FINDINGS: There is no fracture or dislocation. Soft tissues are unremarkable. The left clavicle is intact. There is a left-sided single lead pacemaker. Poststernotomy changes. The bones are osteopenic. IMPRESSION: No fractures. Electronically signed by: Lalito Villavicencio M.D. 08/17/2016 3:01 PM Dictated Date/Time: 08/17/2016 3:00 PM
--- NOTE | 2016-08-17 15:06 | DIAGNOSTIC IMAGING REPORT ---
LEFT PELVIS/UNILATERAL HIP 2-3VIEWS CLINICAL HISTORY: Left hip pain COMPARISON STUDY: None. FINDINGS: No fracture or dislocation within the pelvis or hips. The sacrum appears intact. Soft tissues are unremarkable. Mild osteoarthritis within the bilateral hips. IMPRESSION: No fracture or dislocation within the pelvis or hips. Electronically signed by: Lalito Villavicencio M.D. 08/17/2016 3:04 PM Dictated Date/Time: 08/17/2016 3:02 PM
--- NOTE | 2016-08-17 18:36 | EMERGENCY ROOM VISIT NOTE ---
History First contact with patient: 13:33 Chief Complaint: ARM PAIN Stated Complaint: REFERRED FOR XRAY History of Present Illness The patient is a 76 year old female who presents to the Emergency Room via private vehicle with complaints of "referred for x-rays". The patient states that yesterday afternoon, she was attempting to install a telephone in her house and she was standing on top of a chair, when she slipped and fell landing on her left shoulder and left hip. She notes that she had minimal pain at that time, however it has progressively worsened. She points to the left superior trapezius muscle and left shoulder as well as her left hip as a location of pain that she rates as a 10/10. She states that she went to a clinic today who referred her here for x-rays. She denies any loss of consciousness or striking her head. Review of Systems A complete 6-point Review of Systems was discussed with the patient, with pertinent positives and negatives listed in the History of Present Illness. All remaining Review of Systems questions can be considered negative unless otherwise specified. Past Medical/Surgical History Medical Problems: (1) Acute kidney injury (2) Acute pancreatitis (3) Acute respiratory failure with hypoxia (4) Acute systolic congestive heart failure (5) Acute urinary tract infection (6) Anemia (7) Asthma (8) Atrial fibrillation (9) Cardiac pacemaker procedure (10) Cholecystectomy (11) Chronic kidney disease (12) Chronic obstructive lung disease (13) CKD (chronic kidney disease) (14) Contrast dye induced nephropathy (15) COPD (chronic obstructive pulmonary disease) (16) Deep venous thrombosis (17) Diabetes mellitus (18) Flank pain (19) History of - peptic ulcer (20) Hysterectomy (21) PERSONAL HX OF TIA,& CEREBRAL INFARCTION W/OUT RES DEFICITS (22) Pneumonia (23) Replacement of mitral valve (24) Sepsis Surgical Problems: (1) History of cholecystectomy Family History Diabetes mellitus Heart disease Hypertension Social History Smoking Status: Never Smoker Alcohol Use: none Drug Use: none Marital Status: Housing Status: lives with family Occupation Status: retired Current/Historical Medications Scheduled Cholecalciferol (Vitamin D3), 1,000 INTER.UNIT PO TID Cyanocobalamin (Vitamin B-12), 1,000 MCG PO QAM Diazepam (Valium), 5 MG PO HS Digoxin (Digoxin), 0.125 MG PO QAM Ezetimibe (Ezetimibe), 10 MG PO HS Fexofenadine Hcl (Vickie), 180 MG PO QAM Furosemide (Furosemide), 40 MG PO QAM Gemfibrozil (Gemfibrozil), 600 MG PO BID Hydralazine Hcl (Apresoline), 25 MG PO BID Insulin Glargine (Lantus Solostar), 15 UNIT SC BID Isosorbide Mononitrate (Isosorbide Mononitrate ER), 30 MG PO QAM Levothyroxine Sodium (Synthroid), 175 MCG PO DAILY Metoprolol Succinate (Metoprolol Succinate ER), 100 MG PO QAM Misc Natural Products (Osteo Bi-Flex Joint Shiel), 1 TAB PO BID Montelukast Sod (Montelukast Sodium), 10 MG PO QAM Pyridoxine (Vitamin B6), 100 MG PO QAM Spironolactone (Aldactone), 50 MG PO DAILY Trospium Chloride (Trospium Chloride), 20 MG PO DAILY Warfarin Sodium (Coumadin), 4 MG PO DAILY Scheduled PRN Diclofenac Sodium (Topical) (Diclofenac Sodium), 1 APPLN TOP QID PRN for Pain- Affected Joints Insulin Aspart (Novolog), 1 DOSE SC ACHS PRN for As Needed Oxycodone HCl (Oxycodone HCl), 5 MG PO DAILY PRN for Pain Allergies Coded Allergies: Penicillins (Verified Allergy, Severe, anaphylaxis 30yrs ago, also broke out with sores, 08/17/16) NOTE: Timentin 05/2003 tolerated without problem Diltiazem (Verified Allergy, Unknown, unknown, 08/17/16) Levofloxacin (Verified Allergy, Unknown, UNKNOWN, 08/17/16) Moxifloxacin (Verified Allergy, Unknown, UNKNOWN, 08/17/16) Aspirin (Verified Adverse Reaction, Intermediate, increased bleeding (on warfarin), 08/17/16) Atorvastatin (Verified Adverse Reaction, Unknown, & Crestor = muscle aches /pains, 08/17/16) NSAIDs (Verified Adverse Reaction, Unknown, AVOID PER DR. HICKS - [id number] , 08/17/16) Nortriptyline (Verified Adverse Reaction, Unknown, choking on food, 08/17/16 ) Quinidine (Verified Adverse Reaction, Unknown, flu-like symptoms, 08/17/16) Sulfamethoxazole w/Trimethoprim (Verified Adverse Reaction, Unknown, CONFUSION, 08/17/16) Physical Exam Vital Signs Date Time Temp Pulse Resp B/P (MAP) Pulse Ox O2 Delivery O2 Flow Rate FiO2 08/17/16 18:51 95 16 164/87 94 Room Air 08/17/16 17:07 77 18 142/76 96 Room Air 08/17/16 14:59 94 18 136/64 95 Room Air 08/17/16 12:40 36.6 78 18 147/80 96 Room Air Physical Exam VITAL SIGNS - Vital signs and nursing notes were reviewed. Patient is afebrile , hypertensive at 147/80, non-tachycardic and is saturating well on room air 96% . GENERAL -76-year-old female appearing her stated age who is in no acute distress. Communicates well with provider and answers questions appropriately. SKIN - Without rashes. The skin overlying the left shoulder and left hip is unremarkable, there is an edematous region overlying the left greater trochanter which is subjectively reported to be a lipoma. HEAD - NC/AT. Unremarkable EYES - PERRL with EOMI bilaterally. Sclera anicteric. Palpebral conjunctiva pink and moist with no injection noted. EARS - No deformities of external structures noted on gross examination bilaterally. LUNGS - Chest wall symmetric without accessory muscle use, intercostals retractions, or central cyanosis. Normal vesicular breath sounds CTA B/L. No wheezes, rales, or rhonchi appreciated. CARDIAC - RRR with S1/S2. Significant systolic murmur noted. Patient has had a heart valve replacement. No rubs, or gallops appreciated. EXTREMITIES - No clubbing or peripheral cyanosis. No pretibial edema present. There is exquisite tenderness to palpation overlying the superior trapezius muscle extending to the left shoulder. There is minimal humerus tenderness. No forearm tenderness. There is tenderness to palpation overlying the left greater trochanter. No other left flank tenderness. Remainder of the extremity exam is unremarkable. Patient is able to axial load. +5/5 strength noted in UE/LE bilaterally. She is neurovascularly intact in her extremities. Medical Decision & Procedures ER Provider Diagnostic Interpretation: CERVICAL SPINE CT CT DOSE: 180.24 mGy.cm HISTORY: Fall, left shoulder pain. Neck pain TECHNIQUE: Multiaxial CT images of the cervical spine were performed and reformatted in the sagittal and coronal plane without the use of contrast. COMPARISON: Cervical spine CT 07/03/2015. FINDINGS: No fractures. Moderate degenerative disease at C6-C7, unchanged. Minimal step nielsen anterolisthesis of C4 and C5 and C5 on C6, unchanged. Prevertebral soft tissues and the C1-C2 interval are intact. No pneumothorax. IMPRESSION: No fractures within the cervical spine. Electronically signed by: Lalito Villavicencio M.D. 08/17/2016 2:53 PM Dictated Date/Time: 08/17/2016 2:48 PM LEFT PELVIS/UNILATERAL HIP 2-3VIEWS CLINICAL HISTORY: Left hip pain COMPARISON STUDY: None. FINDINGS: No fracture or dislocation within the pelvis or hips. The sacrum appears intact. Soft tissues are unremarkable. Mild osteoarthritis within the bilateral hips. IMPRESSION: No fracture or dislocation within the pelvis or hips. Electronically signed by: Lalito Villavicencio M.D. 08/17/2016 3:04 PM Dictated Date/Time: 08/17/2016 3:02 PM LEFT SHOULDER 3 VIEWS HISTORY: Fall, left shoulder pain COMPARISON: None. FINDINGS: There is no fracture or dislocation. Soft tissues are unremarkable. The left clavicle is intact. There is a left-sided single lead pacemaker. Poststernotomy changes. The bones are osteopenic. IMPRESSION: No fractures. Electronically signed by: Lalito Villavicencio M.D. 08/17/2016 3:01 PM Dictated Date/Time: 08/17/2016 3:[address] SCAN OF THE BONY PELVIS WITHOUT IV CONTRAST CLINICAL HISTORY: Fall with left hip pain. COMPARISON STUDY: Pelvic CT dated 02/17/2016. Pelvic and left hip radiographs dated 08/17/2016. TECHNIQUE: CT scan of the bony pelvis is performed from the pelvic inlet to the proximal femora. Images are reviewed in the axial, sagittal, coronal planes. IV contrast was not administered for this examination. CT DOSE: 658.18 mGy.cm FINDINGS: The skeletal structures are osteopenic. No fracture is identified in the hips or bony pelvis. No lytic or blastic lesions are seen. Arthritic change is present in both hips with degenerative joint space narrowing. Sclerotic change is noted in the sacroiliac joints and pubic symphysis. Lumbosacral spondylosis is partially imaged. 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 There is mild soft tissue contusion overlying the greater trochanter of the left femur. The bladder is distended and grossly unremarkable. The uterus is surgically absent. No adnexal lesion is seen. Findings suggest pelvic floor prolapse. The visualized loops of small bowel and colon are normal in caliber. No pelvic sidewall or inguinal lymphadenopathy is seen. There is subcutaneous soft tissue edema seen superficial to the pubic symphysis. Atherosclerotic calcification is noted in the distal abdominal aorta and iliac arteries. The partially imaged liver demonstrates nodularity of the surface contour suggesting cirrhotic change. The musculature of the pelvis demonstrates mild symmetric atrophy. No intramuscular hematoma is identified. IMPRESSION: 1. No fracture is seen in the hips or bony pelvis. 2. 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 This is similar to previous. 3. There is mild soft tissue contusion suggested overlying the pubic symphysis and the greater trochanter of the left femur. 4. Additional changes as above. Electronically signed by: Ventura Kaplan M.D. 08/17/2016 7:20 PM Dictated Date/Time: 08/17/2016 5:[address] SCAN OF LEFT SHOULDER WITHOUT IV CONTRAST CLINICAL HISTORY: Fall with left shoulder pain. COMPARISON STUDY: Radiographs of left shoulder performed the same day 08/17/2016. TECHNIQUE: CT scan of the left shoulder is performed from the lower neck to the humeral shaft. Images are reviewed in the axial, sagittal, coronal planes. IV contrast was not administered for this examination. CT DOSE: 302.06 mGy.cm FINDINGS: The skeletal structures are osteopenic. There is no evidence of fracture or dislocation in the left shoulder. Mild arthritic change is present at the left glenohumeral and acromioclavicular joints. No lytic or blastic lesions are seen. The overlying soft tissues are within normal limits. Pacemaker leads are present in the left axilla. There is no left axillary lymphadenopathy identified. There is symmetric atrophy of the shoulder musculature. The partially imaged left upper lobe lung parenchyma appears clear. IMPRESSION: 1. No fracture or dislocation is seen in the left shoulder. 2. Osteopenia and mild arthritic change as above. Electronically signed by: Ventura Kaplan M.D. 08/17/2016 7:19 PM Dictated Date/Time: 08/17/2016 5:13 PM Medications Administered Medications (Trade) Dose Ordered Sig/Albin Route Start Time Stop Time Status Last Admin Dose Admin Oxycodone HCl (Roxicodone Immediate Rel Tab) 5 mg NOW STAT PO 08/17/16 13:38 08/17/16 13:40 DC 08/17/16 13:47 5 MG Medical Decision Patient was seen and evaluated as above. After obtaining a thorough history and physical examination, radiograph was obtained of the left shoulder and left hip. CT scan was also obtained the C-spine patient did have pain in this region status post fall. There is been no head injury or loss of consciousness. She was given 1 OxyIR for her pain. She appears stable at this time. Results of the initial studies are as above. No acute fracture. I did discuss potential CT scan of her left shoulder and left hip and she noted continued in severe pain. Results were not initially available, and verbally briefly transmitted to me via the radiologist. I did inform the patient that there were no fractures, however the incidental findings I am not aware of at this time and will best be followed up with her family doctor regarding today's findings. The patient was also seen by my attending. She had this time does appear to be stable for discharge. She is to follow-up with orthopedics regarding today's visit. She is also to follow-up with her family doctor. She was educated upon management today's findings, provided an arm sling, educated upon worrisome symptoms which to return, had questions prior to discharge, and was discharged home in good condition. After the patient was discharged, the CT scans were available. I reviewed them, there are some incidental findings of which the patient should follow-up for. In the evaluation and treatment of this patient, the following differential diagnoses were considered: Shoulder Contusion, Shoulder Fracture, Shoulder Dislocation, Thoracic Outlet Syndrome, Adhesive Capsulitis, Rotator Cuff Tear, Proximal Clavicle Head Fracture, Apical Pneumonia, Pneumothorax, Hemothorax, or TB, Hip Fracture, Hip Dislocation, Greater Trochanteric Bursitis, Musculoskeletal Pain, Lumbar Radiculopathy, among others. Pt. was called back at 1:40 PM on 08/18/[address] findings and incidentals. She is to follow up tomorrow with DAYANNA Foster. She is doing well. Impression Primary Impression: Arm pain, left Additional Impression: Left hip pain Departure Information Dispostion Home / Self-Care Condition GOOD Referrals Phoenix Klein III, CRNP (PCP) Bry Ferro, DO Patient Instructions My [facility] Additional Instructions You have been treated in the Emergency Department for Shoulder Pain and hip pain.You have received pain medicine in the emergency department which impairs your ability to operate a vehicle. It is illegal for you to drive after receiving these medicines. For pain you may use your previously prescribed medication. If this is a recent injury (<24 hrs), ice can be applied to the area of pain for the first 3 days to help decrease pain and inflammation. You have been provided the number for an Orthopaedic Surgeon. You should call this number as soon as possible to establish a follow-up visit from today's Emergency Department visit. Keep the shoulder brace/sling in place until evaluated by Orthopedics. Continue to perform range of motion exercises several times per day to help prevent the development of a "frozen shoulder". Please be careful with your movements as your left hip will be painful over the next few days. Return to the Emergency Department if your current symptoms worsen despite treatment course outlined above, or if you develop any of the following symptoms : intractable pain despite aforementioned treatment course or new onset of numbness or tingling of the arm. Please return to the emergency department with any new/concerning symptoms. Problem Qualifiers
[2016-08-17 18:51] VITALS: BP 164/87; PULSE 95; O2SAT 94
--- NOTE | 2016-08-17 19:20 | DIAGNOSTIC IMAGING REPORT ---
CT SCAN OF LEFT SHOULDER WITHOUT IV CONTRAST CLINICAL HISTORY: Fall with left shoulder pain. COMPARISON STUDY: Radiographs of left shoulder performed the same day 08/17/2016. TECHNIQUE: CT scan of the left shoulder is performed from the lower neck to the humeral shaft. Images are reviewed in the axial, sagittal, coronal planes. IV contrast was not administered for this examination. CT DOSE: 302.06 mGy.cm FINDINGS: The skeletal structures are osteopenic. There is no evidence of fracture or dislocation in the left shoulder. Mild arthritic change is present at the left glenohumeral and acromioclavicular joints. No lytic or blastic lesions are seen. The overlying soft tissues are within normal limits. Pacemaker leads are present in the left axilla. There is no left axillary lymphadenopathy identified. There is symmetric atrophy of the shoulder musculature. The partially imaged left upper lobe lung parenchyma appears clear. IMPRESSION: 1. No fracture or dislocation is seen in the left shoulder. 2. Osteopenia and mild arthritic change as above. Electronically signed by: Ventura Kaplan M.D. 08/17/2016 7:19 PM Dictated Date/Time: 08/17/2016 5:13 PM
--- NOTE | 2016-08-17 19:21 | DIAGNOSTIC IMAGING REPORT ---
CT SCAN OF THE BONY PELVIS WITHOUT IV CONTRAST CLINICAL HISTORY: Fall with left hip pain. COMPARISON STUDY: Pelvic CT dated 02/17/2016. Pelvic and left hip radiographs dated 08/17/2016. TECHNIQUE: CT scan of the bony pelvis is performed from the pelvic inlet to the proximal femora. Images are reviewed in the axial, sagittal, coronal planes. IV contrast was not administered for this examination. CT DOSE: 658.18 mGy.cm FINDINGS: The skeletal structures are osteopenic. No fracture is identified in the hips or bony pelvis. No lytic or blastic lesions are seen. Arthritic change is present in both hips with degenerative joint space narrowing. Sclerotic change is noted in the sacroiliac joints and pubic symphysis. Lumbosacral spondylosis is partially imaged. 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 There is mild soft tissue contusion overlying the greater trochanter of the left femur. The bladder is distended and grossly unremarkable. The uterus is surgically absent. No adnexal lesion is seen. Findings suggest pelvic floor prolapse. The visualized loops of small bowel and colon are normal in caliber. No pelvic sidewall or inguinal lymphadenopathy is seen. There is subcutaneous soft tissue edema seen superficial to the pubic symphysis. Atherosclerotic calcification is noted in the distal abdominal aorta and iliac arteries. The partially imaged liver demonstrates nodularity of the surface contour suggesting cirrhotic change. The musculature of the pelvis demonstrates mild symmetric atrophy. No intramuscular hematoma is identified. IMPRESSION: 1. No fracture is seen in the hips or bony pelvis. 2. 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 This is similar to previous. 3. There is mild soft tissue contusion suggested overlying the pubic symphysis and the greater trochanter of the left femur. 4. Additional changes as above. Electronically signed by: Ventura Kaplan M.D. 08/17/2016 7:20 PM Dictated Date/Time: 08/17/2016 5:01 PM
[2016-09-25] MEDS ORDERED: WARF4TAB8 PO (11:24)
[2016-11-27] MEDS ORDERED: METO50TA7 PO (11:08)
[2016-12-03] MEDS ORDERED: WARF4TAB PO (10:34)
== END 2016-08-17 18:54 | disposition home or self-care (01) ==
LOC: C.EDB 12:30 → C.EDD 18:54
DX: M25.512 Pain in left shoulder (principal); M25.552 Pain in left hip; I48.91 Unspecified atrial fibrillation; N18.9 Chronic kidney disease, unspecified; E11.9 Type 2 diabetes mellitus without complications; J44.9 Chronic obstructive pulmonary disease, unspecified; I51.9 Heart disease, unspecified; K86.1 Other chronic pancreatitis; J45.909 Unspecified asthma, uncomplicated; I34.1 Nonrheumatic mitral (valve) prolapse; D64.9 Anemia, unspecified; Z95.0 Presence of cardiac pacemaker; Z86.718 Personal history of other venous thrombosis and embolism; Z86.73 Personal history of transient ischemic attack (TIA), and cerebral infarction without residual deficits; Z90.49 Acquired absence of other specified parts of digestive tract; Z87.11 Personal history of peptic ulcer disease; Z86.19 Personal history of other infectious and parasitic diseases; Z90.710 Acquired absence of both cervix and uterus; Z87.442 Personal history of urinary calculi; Z91.041 Radiographic dye allergy status; Z79.4 Long term (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 of insulin; Z79.01 Long term (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 of anticoagulants; Z79.899 Other long term (current) drug therapy; Z88.0 Allergy status to penicillin; Z88.2 Allergy status to sulfonamides; Z88.6 Allergy status to analgesic agent; Z88.8 Allergy status to other drugs, medicaments and biological substances; Z83.3 Family history of diabetes mellitus; Z82.49 Family history of ischemic heart disease and other diseases of the circulatory system

== ENCOUNTER → 2016-09-11 | Outpatient (CLI) | payer BC ==
[~2016-09-11] MED LIST changes: +DOXY100C2 PO; +INHALER INH; +INSDGI SC; +METO50TA7 PO; +TPRSR/50 PO; +WARF4TAB PO; +WARF4TAB8 PO
[2016-09-11 15:45] LABS: URINE APPEARANCE CLEAR (CLEAR); URINE BILIRUBIN NEG (NEG); URINE COLOR YELLOW; URINE NITRITE NEG (NEG); URINE SPECIFIC GRAVITY 1.011 (1.000-1.030); UROBILINOGEN NEG (NEG)
[2016-09-11 15:54] LABS: MANUAL MICROSCOPIC REQUIRED? NO; REVIEW REQ? NO
== END | disposition home or self-care (01) ==
LOC: C.LABSPEC 11:41
PROVIDERS: ATTEND Nurse Practitioner Family
DX: N39.41 Urge incontinence (principal)

== ENCOUNTER → 2016-10-25 | Outpatient (CLI) | payer BC ==
[2016-10-25 13:21] LABS: BASO % 0.4 %; BASO ABS # 0.02 K/uL (0-0.2); COMPLETE YES; EOS % 5.4 %; HEMATOCRIT 32.7 % (37-47); IG% 0.2 %; LYMPH % 23.1 %; LYMPH ABS # 1.16 K/uL (1.2-3.4); MEAN CELL VOLUME 90.1 fL (80-100); MEAN CORPUSCULAR HEMOGLOBIN 27.3 pg (25-34); MEAN CORPUSCULAR HGB CONC 30.3 g/dl (32-36); MEAN PLATELET VOLUME 10.8 fL (7.4-10.4); MONO % 11.5 %; NEUT % 59.4 %; PLATELET COUNT 177 K/uL (130-400); RED BLOOD COUNT 3.63 M/uL (4.2-5.4); WHITE BLOOD COUNT 5.03 K/uL (4.8-10.8)
--- NOTE | 2016-10-25 13:21 | DIAGNOSTIC IMAGING REPORT ---
CHEST 2 VIEWS ROUTINE CLINICAL HISTORY: COUGH dyspnea COMPARISON STUDY: 08/07/2016 FINDINGS: Moderate cardiomegaly. Prior median sternotomy. Unipolar cardiac pacemaker in good position. Prior valve replacement. Components of congestive failure are noted. There is a small right effusion. IMPRESSION: Congestive heart failure. Small right pleural effusion. Moderate stable cardiomegaly. The above report was generated using voice recognition software. It may contain grammatical, syntax or spelling errors. Electronically signed by: Zak Olson M.D. 10/25/2016 1:20 PM Dictated Date/Time: 10/25/2016 1:19 PM
[2016-10-25 14:02] LABS: ALT/SGPT 29 U/L (12-78); AST/SGOT 27 U/L (15-37); BLOOD UREA NITROGEN 53 mg/dl (7-18); BUN/CREATININE RATIO 26.3 (10-20); CALCIUM 9.6 mg/dl (8.5-10.1); CARBON DIOXIDE 27 mmol/L (21-32); CHLORIDE 106 mmol/L (98-107); GLUCOSE 178 mg/dl (70-99); POTASSIUM 4.6 mmol/L (3.5-5.1); SODIUM 138 mmol/L (136-145)
[2016-10-25 14:04] LABS: ALB/GLOB RATIO 1.1 (0.9-2); ALKALINE PHOSPHATASE 122 U/L (45-117)
== END | disposition home or self-care (01) ==
LOC: C.RAD 12:20
PROVIDERS: ATTEND Nurse Practitioner Adult Health
DX: R05 Cough (principal); I50.9 Heart failure, unspecified; J90 Pleural effusion, not elsewhere classified; I51.7 Cardiomegaly

== ENCOUNTER → 2016-10-28 | Outpatient (CLI) | payer BC ==
[2016-10-28 12:54] LABS: BLOOD UREA NITROGEN 57 mg/dl (7-18); BUN/CREATININE RATIO 28.6 (10-20); CALCIUM 9.6 mg/dl (8.5-10.1); CARBON DIOXIDE 23 mmol/L (21-32); CHLORIDE 106 mmol/L (98-107); GLUCOSE 175 mg/dl (70-99); POTASSIUM 4.2 mmol/L (3.5-5.1); SODIUM 136 mmol/L (136-145)
== END | disposition home or self-care (01) ==
LOC: C.LAB 11:37
PROVIDERS: ATTEND Nurse Practitioner Adult Health
DX: R60.9 Edema, unspecified (principal)

== ENCOUNTER → 2016-12-02 | Outpatient (CLI) | payer BC ==
[~2016-12-02] MED LIST changes: -TPRSR50 PO
--- NOTE | 2016-12-02 11:55 | DIAGNOSTIC IMAGING REPORT ---
CHEST 2 VIEWS ROUTINE CLINICAL HISTORY: R05 [id number] Shortness of [id number] dyspnea COMPARISON STUDY: 2016 FINDINGS: Moderate cardiomegaly. Prior median sternotomy. Valve replacement. Permanent unipolar cardiac pacemaker. Composite congestive heart failure present. IMPRESSION: Congestive heart failure The above report was generated using voice recognition software. It may contain grammatical, syntax or spelling errors. Electronically signed by: Zak Olson M.D. 12/02/2016 11:53 AM Dictated Date/Time: 12/02/2016 11:53 AM
== END | disposition home or self-care (01) ==
LOC: C.RAD1850 11:35
PROVIDERS: ATTEND Nurse Practitioner Family
DX: R06.02 Shortness of breath (principal); R05 Cough

== ENCOUNTER 2016-12-03 19:51 | Emergency (ER) | payer BC ==
[~2016-12-03] VITALS: Ht 160 cm; Wt 68.0 kg
[~2016-12-03 19:51] MED LIST changes: -DOXY100C2 PO; -INHALER INH; -INSDGI SC; -TPRSR/50 PO
[2016-12-03 20:00] VITALS: Ht 160 cm; Wt 68.0 kg
[2016-12-03 20:24] VITALS: O2SAT 95
[2016-12-03] MEDS ORDERED: ALUMINUM/MAGNESIUM SUSP 30 ML UDC PO STA (20:31)
--- NOTE | 2016-12-03 20:40 | EMERGENCY ROOM VISIT NOTE ---
History Report prepared by Dianne: Des Saleh Under the Supervision of: Dr. Camilla Reese D.O. First contact with patient: 20:10 Chief Complaint: RESPIRATORY PROBLEMS Stated Complaint: BREATH History of Present Illness The patient is a 76 year old female who presents to the Emergency Room with complaints of constant shortness of breath beginning yesterday. She currently rates her discomfort a 3/10 in severity. The patient states that she used her inhaler at home, and now she has a productive, yellow cough. She reports that she has a history of intermittent anemia since her open heart surgery that occurred 40 years ago. The patient notes that she is scheduled for a 2L blood transfusion tomorrow. She states that she typically gets short of breath when she needs a transfusion. The patient reports that she was evaluated yesterday and was placed on doxycycline to treat potential bronchitis. She notes that she developed an irritated stomach. The patient states that she called her PCP and explained her symptoms. She reports that she was told to go the ED even though her transfusion is tomorrow because it may be something more severe. The patient notes that she was recently in the ED because she experienced epistaxis that she could not stop on her own. She states that her last INR was 5.2. The patient reports that she has a history of asthma. Source of History: patient Onset: yesterday Position: chest Symptom Intensity: Quality: other (SOB) Timing: constant Associated Symptoms: + cough (productive, yellow) Note: Associated symptoms: irritated stomach Review of Systems See HPI for pertinent positives & negatives. A total of 10 systems reviewed and were otherwise negative. Past Medical & Surgical Medical Problems: (1) Acute kidney injury (2) Acute pancreatitis (3) Acute respiratory failure with hypoxia (4) Acute systolic congestive heart failure (5) Acute urinary tract infection (6) Asthma (7) Atrial fibrillation (8) Cardiac pacemaker procedure (9) CKD (chronic kidney disease) (10) Contrast dye induced nephropathy (11) Deep venous thrombosis (12) Diabetes mellitus (13) History of mitral valve replacement with mechanical valve (14) PERSONAL HX OF TIA,& CEREBRAL INFARCTION W/OUT RES DEFICITS (15) Pneumonia (16) Replacement of mitral valve with mechanical prosthesis (17) Sepsis Surgical Problems: (1) Cholecystectomy (2) Hysterectomy Family History Diabetes mellitus Heart disease Hypertension Social History Smoking Status: Former Smoker Alcohol Use: none Drug Use: none Marital Status: Housing Status: lives with family Occupation Status: retired Current/Historical Medications Scheduled Cholecalciferol (Vitamin D3), 1,000 INTER.UNIT PO TID Cyanocobalamin (Vitamin B-12), 1,000 MCG PO QAM Diazepam (Valium), 5 MG PO HS Digoxin (Digoxin), 0.125 MG PO QAM Ezetimibe (Ezetimibe), 10 MG PO HS Fexofenadine Hcl (Vickie), 180 MG PO QAM Furosemide (Furosemide), 40 MG PO QAM Gemfibrozil (Gemfibrozil), 600 MG PO BID Hydralazine Hcl (Apresoline), 25 MG PO BID Insulin Glargine (Lantus Solostar), 15 UNIT SC BID Isosorbide Mononitrate (Isosorbide Mononitrate ER), 30 MG PO QAM Levothyroxine Sodium (Synthroid), 175 MCG PO DAILY Metoprolol Succinate (Metoprolol Succinate ER), 50 MG PO QAM Misc Natural Products (Osteo Bi-Flex Joint Shiel), 1 TAB PO BID Montelukast Sod (Montelukast Sodium), 10 MG PO QAM Pyridoxine (Vitamin B6), 100 MG PO QAM Spironolactone (Aldactone), 50 MG PO DAILY Trospium Chloride (Trospium Chloride), 20 MG PO DAILY Warfarin Sod (Jantoven), 2 MG PO 2XWK Warfarin Sodium (Coumadin), 4 MG PO 5XWK Scheduled PRN Diclofenac Sodium (Topical) (Diclofenac Sodium), 1 APPLN TOP QID PRN for Pain- Affected Joints Insulin Aspart (Novolog), 1 DOSE SC ACHS PRN for As Needed Oxycodone HCl (Oxycodone HCl), 5 MG PO DAILY PRN for Pain Allergies Coded Allergies: Penicillins (Verified Allergy, Severe, anaphylaxis 30yrs ago, also broke out with sores, 08/17/16) NOTE: Timentin 05/2003 tolerated without problem Doxycycline (Verified Allergy, Intermediate, GI SYMPTOMS, 12/04/16) Diltiazem (Verified Allergy, Unknown, unknown, 08/17/16) Levofloxacin (Verified Allergy, Unknown, UNKNOWN, 08/17/16) Moxifloxacin (Verified Allergy, Unknown, UNKNOWN, 08/17/16) Aspirin (Verified Adverse Reaction, Intermediate, increased bleeding (on warfarin), 08/17/16) Atorvastatin (Verified Adverse Reaction, Unknown, & Crestor = muscle aches /pains, 08/17/16) NSAIDs (Verified Adverse Reaction, Unknown, AVOID PER DR. HICKS - [id number] , 08/17/16) Nortriptyline (Verified Adverse Reaction, Unknown, choking on food, 08/17/16 ) Quinidine (Verified Adverse Reaction, Unknown, flu-like symptoms, 08/17/16) Sulfamethoxazole w/Trimethoprim (Verified Adverse Reaction, Unknown, CONFUSION, 08/17/16) Physical Exam Vital Signs Date Time Temp Pulse Resp B/P (MAP) Pulse Ox O2 Delivery O2 Flow Rate FiO2 12/03/16 21:48 36.9 79 24 124/61 96 12/03/16 21:21 79 24 96 12/03/16 21:01 70 20 124/61 95 Room Air 12/03/16 21:01 124/61 12/03/16 21:00 95 Room Air 12/03/16 20:56 125/71 12/03/16 20:51 73 25 94 12/03/16 20:31 84 12/03/16 20:24 95 Room Air 12/03/16 20:00 36.9 84 20 129/63 95 Room Air Physical Exam GENERAL: alert, ill appearing, well nourished, no distress, non-toxic EYE EXAM: normal conjunctiva, PERRL and EOM's grossly intact OROPHARYNX: no exudate, no erythema, lips, buccal mucosa, and tongue normal and mucous membranes are dry NECK: supple, no nuchal rigidity, no adenopathy, non-tender LUNGS: Lung sounds decreased. Normal chest wall mechanics. HEART: Irregular rate with a regular rhythm. no murmurs, S1 normal and S2 normal CHEST: Well healed, midline sternotomy scar. Pace maker to the left anterior and superior chest wall ABDOMEN: abdomen soft, non-tender, normo-active bowel sounds, no masses, no rebound or guarding. BACK: Back is symmetrical on inspection and there is no deformity, no midline tenderness, no CVA tenderness. SKIN: no rashes and no bruising. Pale. UPPER EXTREMITIES: upper extremities are grossly normal. LOWER EXTREMITIES: 1+ bilateral pitting edema. Good pulses. NEURO EXAM: Normal sensorium, cranial nerves II-XII grossly intact, normal speech, no gross weakness of arms, no gross weakness of legs. Medical Decision & Procedures ER Provider Diagnostic Interpretation: Radiology results have been interpreted by the radiologist and reviewed by me. CHEST ONE VIEW PORTABLE CLINICAL HISTORY: chest pain dyspnea COMPARISON STUDY: 12/02/2016 FINDINGS: Moderate cardiomegaly. Prior median sternotomy and valve replacement. Unchanging parenchymal infiltrate right base. Mild congestive failure also unchanged. IMPRESSION: 1. Congestive failure unchanged in the prior study. 2. Parenchymal infiltrate right base also unchanged The above report was generated using voice recognition software. It may contain grammatical, syntax or spelling errors. Electronically signed by: Zak Olson M.D. 12/03/2016 8:54 PM Dictated Date/Time: 12/03/2016 8:54 PM Laboratory Results 12/03/16 20:32 Red Blood Count 2.50, Mean Corpuscular Volume 89.2, Mean Corpuscular Hemoglobin 28.0, Mean Corpuscular Hemoglobin Concent 31.4, Mean Platelet Volume 9.7, Neutrophils (%) (Auto) 61.8, Lymphocytes (%) (Auto) 20.3, Monocytes (%) (Auto) 13.0, Eosinophils (%) (Auto) 4.2, Basophils (%) (Auto) 0.5, Neutrophils # (Auto ) 2.62, Lymphocytes # (Auto) 0.86, Monocytes # (Auto) 0.55, Eosinophils # (Auto ) 0.18, Basophils # (Auto) 0.02 12/03/16 20:32 Test 12/03/16 20:32 12/03/16 20:41 White Blood Count 4.24 K/uL (4.8-10.8) Red Blood Count 2.50 M/uL (4.2-5.4) Hemoglobin 7.0 g/dL (12.0-16.0) Hematocrit 22.3 % (37-47) Mean Corpuscular Volume 89.2 fL (80-100) Mean Corpuscular Hemoglobin 28.0 pg (25-34) Mean Corpuscular Hemoglobin Concent 31.4 g/dl (32-36) Platelet Count 227 K/uL (130-400) Mean Platelet Volume 9.7 fL (7.4-10.4) Neutrophils (%) (Auto) 61.8 % Lymphocytes (%) (Auto) 20.3 % Monocytes (%) (Auto) 13.0 % Eosinophils (%) (Auto) 4.2 % Basophils (%) (Auto) 0.5 % Neutrophils # (Auto) 2.62 K/uL (1.4-6.5) Lymphocytes # (Auto) 0.86 K/uL (1.2-3.4) Monocytes # (Auto) 0.55 K/uL (0.11-0.59) Eosinophils # (Auto) 0.18 K/uL (0-0.5) Basophils # (Auto) 0.02 K/uL (0-0.2) RDW Standard Deviation 62.3 fL (36.4-46.3) RDW Coefficient of Variation 18.9 % (11.5-14.5) Immature Granulocyte % (Auto) 0.2 % Immature Granulocyte # (Auto) 0.01 K/uL (0.00-0.02) Polychromasia 1+ Anisocytosis PRESENT Prothrombin Time 38.1 SECONDS (9.0-12.0) Prothromb Time International Ratio 3.4 (0.9-1.1) Anion Gap 10.0 mmol/L (3-11) Est Creatinine Clear Calc Drug Dose 24.0 ml/min Estimated GFR () 29.6 Estimated GFR (Non- 25.5 BUN/Creatinine Ratio 33.2 (10-20) Calcium Level 9.0 mg/dl (8.5-10.1) Total Bilirubin 0.4 mg/dl (0.2-1) Aspartate Amino Transf (AST/SGOT) 28 U/L (15-37) Alanine Aminotransferase (ALT/SGPT) 28 U/L (12-78) Alkaline Phosphatase 95 U/L (45-117) Troponin I 0.022 ng/ml (0-0.045) Total Protein 7.4 gm/dl (6.4-8.2) Albumin 3.8 gm/dl (3.4-5.0) Globulin 3.6 gm/dl (2.5-4.0) Albumin/Globulin Ratio 1.1 (0.9-2) Lactic Acid Level 0.8 mmol/L (0.4-2.0) Bedside Lactic Acid Venous 0.78 mmol/L (0.90-1.70) Laboratory results per my review. Medications Administered Medications (Trade) Dose Ordered Sig/Albin Route Start Time Stop Time Status Last Admin Dose Admin Al Hydroxide/Mg Hydroxide (Maalox Susp) 15 ml NOW STAT PO 12/03/16 20:31 12/03/16 20:33 DC 12/03/16 20:44 15 ML Pantoprazole Sodium 40 mg/ Syringe 10 ml @ 5 mls/min NOW ONCE IV 12/03/16 20:45 12/03/16 20:46 DC 12/03/16 20:53 5 MLS/MIN ECG Indication: weakness Rate (beats per minute): 81 Rhythm: atrial fibrillation Findings: RBBB, no acute ischemic change, other (Normal axis and a boardline prolonged QTc) ED Course 2018: The patient was evaluated in room B04B. A complete history and physical exam was performed. 2030: Ordered Maalox Susp 15ml PO 2044: Ordered Pantoprazole Sodium 40 mg/Syringe 10 ml @ 5 mls/min IV 2123: I reevaluated the patient. She states that she will not be admitted even though her daughter wanted her to be. After an extensive conversation about the risks of leaving AMA, the patient still wished to leave AMA. I discussed the test results and discharge instructions. She verbalized agreement and is aware of the risks of signing out AMA. Medical Decision Differential diagnosis: Etiologies such as metabolic, infection, hypo/hyperglycemia, electrolyte abnormalities, cardiac sources, intracerebral event, toxicologic, neurologic, as well as others were entertained. Pt with complicated hx and multiple medical problems with complaints. Pt scheduled for transfusion tomorrow. Hx of CKD. Discussed concern over SOB and chest pain. Discussed while may be side effect of recent initiation of doxy and sx did improved with meds, pt still has infiltrate on cxr and risk factors for ACS and vascular pathology. Pt stated she understood all of this however would still like to be discharged and will come in tomorrow for her scheduled transfusion. She states she will return for any worsening symptoms. Discussed risks of going home, her medical problems, risks of additional complications, she verbalized understanding and will sign out AMA. This was discussed with the daughter also and she will take the pt home. Medication Reconcilliation Current Medication List: was personally reviewed by me Blood Pressure Screening Patient's blood pressure: Normal blood pressure Blood pressure disposition: Did not require urgent referral Impression Primary Impression: Anemia Additional Impressions: CKD (chronic kidney disease) Medication adverse effect Pneumonia Scribe Attestation The scribe's documentation has been prepared under my direction and personally reviewed by me in its entirety. I confirm that the note above accurately reflects all work, treatment, procedures, and medical decision making performed by me. Departure Information Dispostion Against Medical Advice Referrals Phoenix Klein III, CRNP (PCP) Forms HOME CARE DOCUMENTATION FORM, IMPORTANT VISIT INFORMATION, WORK / SCHOOL INSTRUCTIONS Patient Instructions My [facility] Additional Instructions By leaving AGAINST MEDICAL ADVICE you're seeming responsibility for your condition. Please keep your appointment to get your blood transfusion given your very low blood counts. Please call and discuss an alternative antibiotic with her family doctor since you seem to have an adverse reaction to the doxycycline. The pneumonia you're being treated for is still seen on your chest x-ray tonight. Your INR tonight was improved at 3.4. Please continue your other medications as prescribed. You're welcome to return the emergency room at any time for any complaints or symptoms. Problem Qualifiers Primary Impression: Anemia Anemia type: unspecified type Qualified Codes: D64.9 - Anemia, unspecified Additional Impressions: CKD (chronic kidney disease) Chronic kidney disease stage: unspecified stage Qualified Codes: N18.9 - Chronic kidney disease, unspecified Medication adverse effect Encounter type: initial encounter Qualified Codes: T88.7XXA - Unspecified adverse effect of drug or medicament, initial encounter Pneumonia Pneumonia type: due to unspecified organism Laterality: right Lung location : lower lobe of lung Qualified Codes: J18.1 - Lobar pneumonia, unspecified organism
[2016-12-03] MEDS ORDERED: PANTOprazole INJ 40 MG in SYRINGE 0 ML IV ONE (20:45)
[2016-12-03 20:48] LABS: BASO % 0.5 %; BASO ABS # 0.02 K/uL (0-0.2); EOS % 4.2 %; HEMATOCRIT 22.3 % (37-47); IG% 0.2 %; LYMPH % 20.3 %; LYMPH ABS # 0.86 K/uL (1.2-3.4); MEAN CELL VOLUME 89.2 fL (80-100); MEAN CORPUSCULAR HGB CONC 31.4 g/dl (32-36); MEAN PLATELET VOLUME 9.7 fL (7.4-10.4); NEUT % 61.8 %; PLATELET COUNT 227 K/uL (130-400); WHITE BLOOD COUNT 4.24 K/uL (4.8-10.8)
--- NOTE | 2016-12-03 20:56 | DIAGNOSTIC IMAGING REPORT ---
CHEST ONE VIEW PORTABLE CLINICAL HISTORY: chest pain dyspnea COMPARISON STUDY: 12/02/2016 FINDINGS: Moderate cardiomegaly. Prior median sternotomy and valve replacement. Unchanging parenchymal infiltrate right base. Mild congestive failure also unchanged. IMPRESSION: 1. Congestive failure unchanged in the prior study. 2. Parenchymal infiltrate right base also unchanged The above report was generated using voice recognition software. It may contain grammatical, syntax or spelling errors. Electronically signed by: Zak Olson M.D. 12/03/2016 8:54 PM Dictated Date/Time: 12/03/2016 8:54 PM
[2016-12-03 20:59] LABS: INR 3.4 (0.9-1.1); PROTHROMBIN TIME (PATIENT) 38.1 SECONDS (9.0-12.0)
[2016-12-03 21:02] LABS: BUN/CREATININE RATIO 33.2 (10-20); CREATININE 1.9 mg/dl (0.60-1.20); POTASSIUM 3.9 mmol/L (3.5-5.1)
[2016-12-03 21:07] LABS: ALB/GLOB RATIO 1.1 (0.9-2)
[2016-12-03 21:10] LABS: ANISOCYTOSIS PRESENT; COMPLETE YES; POLYCHROMASIA 1+
[2016-12-03] MEDS ORDERED: DOXY100C2 PO (21:44)
[2016-12-03] MEDS ORDERED: TPRSR/50 PO (21:44)
[2016-12-03 21:48] VITALS: BP 124/61; PULSE 79; TEMP 36.9; O2SAT 96
== END 2016-12-03 21:48 | disposition left against medical advice (07) ==
LOC: C.EDB 19:52
DX: D64.9 Anemia, unspecified (principal); N18.9 Chronic kidney disease, unspecified; J18.1 Lobar pneumonia, unspecified organism; T88.7XXA Unspecified adverse effect of drug or medicament, initial encounter; X58.XXXA Exposure to other specified factors, initial encounter; J45.909 Unspecified asthma, uncomplicated; I48.91 Unspecified atrial fibrillation; Z95.0 Presence of cardiac pacemaker; Z86.718 Personal history of other venous thrombosis and embolism; E11.9 Type 2 diabetes mellitus without complications; Z95.2 Presence of prosthetic heart valve; Z83.3 Family history of diabetes mellitus; Z82.49 Family history of ischemic heart disease and other diseases of the circulatory system; Z87.891 Personal history of nicotine dependence; Z79.01 Long term (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 of anticoagulants; Z79.4 Long term (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 of insulin; Z79.899 Other long term (current) drug therapy; R06.02 Shortness of breath; R05 Cough

== ENCOUNTER 2016-12-04 19:03 | Inpatient (IN) | payer BC, OTHER ==
[~2016-12-04] VITALS: Ht 160 cm; Wt 67.2 kg
[~2016-12-04 19:03] MED LIST changes: +DOXY100C2 PO; -METO50TA7 PO; +TPRSR/50 PO
--- NOTE | 2016-12-04 20:53 | EMERGENCY ROOM VISIT NOTE ---
History Report prepared by Dianne: Nicole Franz Under the Supervision of: Dr. Osbaldo Adams M.D. First contact with patient: 19:55 Chief Complaint: OTHER COMPLAINT Stated Complaint: HERE FOR ADMISSION History of Present Illness The patient is a 76 year old white female with a past medical history of diabetes, artificial mitral valve, CHF who presents to the ED with a cc of worsening SOB beginning 1 week ago. Positive weight gain, chest pain, cough, fatigue. Negative urinary symptoms, change in BM, nausea, vomiting, hematochezia , hematemesis, vaginal bleeding. She was diagnosed with pneumonia 2 days ago at her PCP and was on doxycycline. She received 2 units of blood this morning after she was found to be anemic. She is on Coumadin. Source of History: patient Onset: 1 week ago Position: other (global) Quality: other (SOB) Timing: worsening Associated Symptoms: + cough, + chest pain, + fatigue, No nausea, No vomiting, No hematochezia, No urinary symptoms Note: Pt denies change in BM, hematemesis, vaginal bleeding. Review of Systems See HPI for pertinent positives and negatives. A total of ten systems were reviewed and were otherwise negative. Past Medical & Surgical Medical Problems: (1) Acute kidney injury (2) Acute pancreatitis (3) Acute respiratory failure with hypoxia (4) Acute systolic congestive heart failure (5) Acute urinary tract infection (6) Asthma (7) Atrial fibrillation (8) Cardiac pacemaker procedure (9) CKD (chronic kidney disease) (10) Contrast dye induced nephropathy (11) Deep venous thrombosis (12) Diabetes mellitus (13) History of mitral valve replacement with mechanical valve (14) PERSONAL HX OF TIA,& CEREBRAL INFARCTION W/OUT RES DEFICITS (15) Pneumonia (16) Replacement of mitral valve with mechanical prosthesis (17) Sepsis Surgical Problems: (1) Cholecystectomy (2) Hysterectomy Family History Diabetes mellitus Heart disease Hypertension Social History Smoking Status: Former Smoker Alcohol Use: none Drug Use: none Marital Status: Housing Status: lives with family Occupation Status: retired Current/Historical Medications Scheduled Cholecalciferol (Vitamin D3), 1,000 INTER.UNIT PO TID Cyanocobalamin (Vitamin B-12), 1,000 MCG PO QAM Diazepam (Valium), 5 MG PO HS Digoxin (Digoxin), 0.125 MG PO QAM Ezetimibe (Ezetimibe), 10 MG PO HS Fexofenadine Hcl (Vickie), 180 MG PO QAM Furosemide (Furosemide), 40 MG PO QAM Gemfibrozil (Gemfibrozil), 600 MG PO BID Hydralazine Hcl (Apresoline), 25 MG PO BID Insulin Glargine (Lantus Solostar), 15 UNIT SC BID Isosorbide Mononitrate (Isosorbide Mononitrate ER), 30 MG PO QAM Levothyroxine Sodium (Synthroid), 175 MCG PO DAILY Metoprolol Succinate (Metoprolol Succinate ER), 50 MG PO QAM Misc Natural Products (Osteo Bi-Flex Joint Shiel), 1 TAB PO BID Montelukast Sod (Montelukast Sodium), 10 MG PO QAM Pyridoxine (Vitamin B6), 100 MG PO QAM Spironolactone (Aldactone), 50 MG PO DAILY Trospium Chloride (Trospium Chloride), 20 MG PO DAILY Warfarin Sod (Jantoven), 2 MG PO 2XWK Warfarin Sodium (Coumadin), 4 MG PO 5XWK Scheduled PRN Diclofenac Sodium (Topical) (Diclofenac Sodium), 1 APPLN TOP QID PRN for Pain- Affected Joints Insulin Aspart (Novolog), 1 DOSE SC ACHS PRN for As Needed Oxycodone HCl (Oxycodone HCl), 5 MG PO DAILY PRN for Pain Allergies Coded Allergies: Penicillins (Verified Allergy, Severe, anaphylaxis 30yrs ago, also broke out with sores, 08/17/16) NOTE: Timentin 05/2003 tolerated without problem Doxycycline (Verified Allergy, Intermediate, GI SYMPTOMS, 12/04/16) Diltiazem (Verified Allergy, Unknown, unknown, 08/17/16) Levofloxacin (Verified Allergy, Unknown, UNKNOWN, 08/17/16) Moxifloxacin (Verified Allergy, Unknown, UNKNOWN, 08/17/16) Aspirin (Verified Adverse Reaction, Intermediate, increased bleeding (on warfarin), 08/17/16) Atorvastatin (Verified Adverse Reaction, Unknown, & Crestor = muscle aches /pains, 08/17/16) NSAIDs (Verified Adverse Reaction, Unknown, AVOID PER DR. HICKS - [id number] , 08/17/16) Nortriptyline (Verified Adverse Reaction, Unknown, choking on food, 08/17/16 ) Quinidine (Verified Adverse Reaction, Unknown, flu-like symptoms, 08/17/16) Sulfamethoxazole w/Trimethoprim (Verified Adverse Reaction, Unknown, CONFUSION, 08/17/16) Physical Exam Vital Signs Date Time Temp Pulse Resp B/P (MAP) Pulse Ox O2 Delivery O2 Flow Rate FiO2 12/04/16 21:05 95 Nasal Cannula 2.0 12/04/16 21:00 89 16 126/70 89 Room Air 12/04/16 19:10 36.9 82 22 138/62 93 Room Air Physical Exam GENERAL: Awake, alert, well-appearing, NAD HENT: Normocephalic, atraumatic. EYES: Normal conjunctiva. Sclera non-icteric. NECK: Supple. No nuchal rigidity. FROM. RESPIRATORY: CTAB, no rhonchi, wheezing, crackles CARDIAC: RRR, no MRG ABDOMEN: Distended abdomen, BS+, soft, nontender MSK: Midline sternotomy scar, no chest wall TTP, chronic venous stasis b/l LE, mild swelling, no erythema or calor. NEURO: GCS 15, CN 2-12 intact, moves all 4s on command SKIN: No rash or jaundice noted. Medical Decision & Procedures ER Provider Diagnostic Interpretation: Radiology results as stated below per my review and radiologist interpretation: CHEST 2 VIEWS ROUTINE CLINICAL HISTORY: Pneumonia, shortness of breath. COMPARISON STUDY: 12/03/2016 FINDINGS: The heart is enlarged. A valvular prosthesis is visualized. There are postsurgical changes of a midline sternotomy. There is a left subclavian single chamber central venous pacemaker. There is mild pulmonary vascular congestion. There is a small right pleural effusion with associated right basilar airspace opacities.[ IMPRESSION: 1. Cardiomegaly and radiographic evidence of mild congestive failure 2. Persistent small right pleural effusion and right basilar airspace opacities, possibly representing a coexistent pneumonia. Electronically signed by: Nikita Culp M.D. 12/04/2016 10:01 PM Dictated Date/Time: 12/04/2016 9:59 PM Laboratory Results 12/04/16 21:57 Red Blood Count 3.09, Mean Corpuscular Volume 87.7, Mean Corpuscular Hemoglobin 27.8, Mean Corpuscular Hemoglobin Concent 31.7, Mean Platelet Volume 9.6, Neutrophils (%) (Auto) 66.5, Lymphocytes (%) (Auto) 14.2, Monocytes (%) (Auto) 14.6, Eosinophils (%) (Auto) 4.1, Basophils (%) (Auto) 0.4, Neutrophils # (Auto ) 3.24, Lymphocytes # (Auto) 0.69, Monocytes # (Auto) 0.71, Eosinophils # (Auto ) 0.20, Basophils # (Auto) 0.02 12/04/16 21:57 Test 12/04/16 21:57 White Blood Count 4.87 K/uL (4.8-10.8) Red Blood Count 3.09 M/uL (4.2-5.4) Hemoglobin 8.6 g/dL (12.0-16.0) Hematocrit 27.1 % (37-47) Mean Corpuscular Volume 87.7 fL (80-100) Mean Corpuscular Hemoglobin 27.8 pg (25-34) Mean Corpuscular Hemoglobin Concent 31.7 g/dl (32-36) Platelet Count 217 K/uL (130-400) Mean Platelet Volume 9.6 fL (7.4-10.4) Neutrophils (%) (Auto) 66.5 % Lymphocytes (%) (Auto) 14.2 % Monocytes (%) (Auto) 14.6 % Eosinophils (%) (Auto) 4.1 % Basophils (%) (Auto) 0.4 % Neutrophils # (Auto) 3.24 K/uL (1.4-6.5) Lymphocytes # (Auto) 0.69 K/uL (1.2-3.4) Monocytes # (Auto) 0.71 K/uL (0.11-0.59) Eosinophils # (Auto) 0.20 K/uL (0-0.5) Basophils # (Auto) 0.02 K/uL (0-0.2) RDW Standard Deviation 56.0 fL (36.4-46.3) RDW Coefficient of Variation 17.5 % (11.5-14.5) Immature Granulocyte % (Auto) 0.2 % Immature Granulocyte # (Auto) 0.01 K/uL (0.00-0.02) Hypochromasia PRESENT Anisocytosis PRESENT Prothrombin Time 28.5 SECONDS (9.0-12.0) Prothromb Time International Ratio 2.6 (0.9-1.1) Activated Partial Thromboplast Time 33.1 SECONDS (21.0-31.0) Partial Thromboplastin Ratio 1.3 Anion Gap 11.0 mmol/L (3-11) Est Creatinine Clear Calc Drug Dose 21.8 ml/min Estimated GFR () 24.8 Estimated GFR (Non- 21.4 BUN/Creatinine Ratio 26.3 (10-20) Calcium Level 9.1 mg/dl (8.5-10.1) Phosphorus Level 3.6 mg/dl (2.5-4.9) Magnesium Level 2.2 mg/dl (1.8-2.4) Total Bilirubin 0.4 mg/dl (0.2-1) Direct Bilirubin 0.2 mg/dl (0-0.2) Aspartate Amino Transf (AST/SGOT) 25 U/L (15-37) Alanine Aminotransferase (ALT/SGPT) 24 U/L (12-78) Alkaline Phosphatase 93 U/L (45-117) Pro-B-Type Natriuretic Peptide 442 pg/ml (0-900) Total Protein 7.2 gm/dl (6.4-8.2) Albumin 3.6 gm/dl (3.4-5.0) Laboratory results reviewed by me ECG Indication: chest pain Rate (beats per minute): 71 Rhythm: other (irregularly irregular ventricular rhythm) Findings: RBBB, T-wave inversion (V2, V3, 3), other (prolonged QRS) ED Course 2027: The patient was evaluated in room C1B. A complete history and physical exam was performed. 2111: I discussed the patient's case with Dr. Estrada, [facility] [place] hospitalist. The patient will be evaluated for further treatment and disposition. 2129: Upon reexamination, the patient was resting comfortably. I discussed the test results and treatment plan with her. The patient will be evaluated for further management. Medical Decision Differential diagnosis: chronic anemia, ACS, pneumonia, pleurisy, GI bleed, CHF. The patient is a 76 year old white female with a past medical history of diabetes, artificial mitral valve, CHF who presents to the ED with a cc of worsening SOB beginning 1 week ago. Patient was seen and evaluated at the bedside. Patient did give a story of being treated for possible pneumonia versus CHF exacerbation and a 3 g drop in her hemoglobin over a recent period. Patient did state that she was given 2 units of PRBCs this morning. Patient denies any bright red blood per rectum, hematemesis, or melenic stool. Patient does take Coumadin and she does have a mechanical mitral valve. Patient was evaluated with blood work and a chest x- ray. Patient's blood work did show mild increase in her creatinine from her baseline of 1.9-2.2. Patient's chest x-ray did show mild pleural effusion with vascular congestion as well as potential overlying pneumonia. Patient's coagulation studies did show that her INR was therapeutic at 2.6. Patient's hemoglobin had risen almost 2.6 which would be consistent with given 2 units earlier today. I spoke with the hospitalist team. The patient would benefit from further treatment and care. Patient was admitted to the medicine service. Medication Reconcilliation Current Medication List: was personally reviewed by me Blood Pressure Screening Patient's blood pressure: Normal blood pressure Blood pressure disposition: Did not require urgent referral Consults Time Called: 2107 Consulting Physician: Dr. Estrada [facility] [place] [facility] hospitalist Returned Call: 2111 Discussed the patient's case. The patient will be evaluated for further treatment and disposition. Impression Primary Impression: Pneumonia Additional Impressions: CKD (chronic kidney disease) CHF (congestive heart failure) Scribe Attestation The scribe's documentation has been prepared under my direction and personally reviewed by me in its entirety. I confirm that the note above accurately reflects all work, treatment, procedures, and medical decision making performed by me. Departure Information Dispostion Being Evaluated By Hospitalist Referrals Phoenix Klein III, CRNP (PCP) Patient Instructions [facility] Problem Qualifiers Primary Impression: Pneumonia Pneumonia type: due to unspecified organism Laterality: right Lung location : unspecified part of lung Qualified Codes: J18.9 - Pneumonia, unspecified organism Additional Impressions: CKD (chronic kidney disease) Chronic kidney disease stage: stage 4 (severe) Qualified Codes: N18.4 - Chronic kidney disease, stage 4 (severe) CHF (congestive heart failure) Congestive heart failure type: unspecified congestive heart failure type Congestive heart failure chronicity: unspecified congestive heart failure chronicity Qualified Codes: I50.9 - Heart failure, unspecified
--- NOTE | 2016-12-04 22:02 | DIAGNOSTIC IMAGING REPORT ---
CHEST 2 VIEWS ROUTINE CLINICAL HISTORY: Pneumonia, shortness of breath. COMPARISON STUDY: 12/03/2016 FINDINGS: The heart is enlarged. A valvular prosthesis is visualized. There are postsurgical changes of a midline sternotomy. There is a left subclavian single chamber central venous pacemaker. There is mild pulmonary vascular congestion. There is a small right pleural effusion with associated right basilar airspace opacities.[ IMPRESSION: 1. Cardiomegaly and radiographic evidence of mild congestive failure 2. Persistent small right pleural effusion and right basilar airspace opacities, possibly representing a coexistent pneumonia. Electronically signed by: Nikita Culp M.D. 12/04/2016 10:01 PM Dictated Date/Time: 12/04/2016 9:59 PM
[2016-12-04 22:11] LABS: BASO % 0.4 %; BASO ABS # 0.02 K/uL (0-0.2); EOS % 4.1 %; HEMATOCRIT 27.1 % (37-47); IG% 0.2 %; LYMPH % 14.2 %; LYMPH ABS # 0.69 K/uL (1.2-3.4); MEAN CELL VOLUME 87.7 fL (80-100); MEAN CORPUSCULAR HEMOGLOBIN 27.8 pg (25-34); MEAN CORPUSCULAR HGB CONC 31.7 g/dl (32-36); MEAN PLATELET VOLUME 9.6 fL (7.4-10.4); MONO % 14.6 %; NEUT % 66.5 %; PLATELET COUNT 217 K/uL (130-400); RED BLOOD COUNT 3.09 M/uL (4.2-5.4); WHITE BLOOD COUNT 4.87 K/uL (4.8-10.8)
[2016-12-04] MEDS ORDERED: DICLOFENAC SOD 1% GEL 100 GM TUBE EXT PRN (22:30)
[2016-12-04] MEDS ORDERED: MAGNESIUM HYDROXIDE SUSP 30 ML UDC PO PRN (22:30)
[2016-12-04] MEDS ORDERED: POLYETHYLENE (MIRALAX) 17 GM PACK PO PRN (22:30)
[2016-12-04] MEDS ORDERED: ALUMINUM/MAGNESIUM/SIMETH (MAALOX MAX) 30 ML UDC PO PRN (22:30)
[2016-12-04 22:34] LABS: BUN/CREATININE RATIO 26.3 (10-20); CREATININE 2.2 mg/dl (0.60-1.20); POTASSIUM 3.9 mmol/L (3.5-5.1)
[2016-12-04 22:35] LABS: CALCIUM 9.1 mg/dl (8.5-10.1); MAGNESIUM 2.2 mg/dl (1.8-2.4)
[2016-12-04 22:36] LABS: INR 2.6 (0.9-1.1); PARTIAL THROMBOPLASTIN RATIO 1.3; PROTHROMBIN TIME (PATIENT) 28.5 SECONDS (9.0-12.0)
[2016-12-04 22:40] LABS: ANISOCYTOSIS PRESENT; COMPLETE YES; HYPOCHROMIA PRESENT; PHOSPHORUS 3.6 mg/dl (2.5-4.9)
[2016-12-04] MEDS ORDERED: GLUCOSE 40% GEL 15 GM TUBE PO PRN (22:45)
[2016-12-04] MEDS ORDERED: GLUCAGON FOR INJ 1 MG VIAL SQ PRN (22:45)
[2016-12-04] MEDS ORDERED: DEXTROSE 50% 50 ML SYR IV PRN (22:45)
[2016-12-04] MEDS ORDERED: GLUCOSE 10 TABS/TUBE PO PRN (22:45)
[2016-12-04] MEDS ORDERED: IMIPENEM/CILASTATIN IV 500 MG in DEXTROSE 5% 100ML 100 ML IV SCH (23:00)
[2016-12-04 23:36] VITALS: Ht 160 cm; Wt 67.2 kg
[2016-12-04 23:58] VITALS: BP 155/65; PULSE 67; TEMP 36.7; O2SAT 98
[2016-12-05] MEDS ORDERED: VANCOMYCIN INJ 1,750 MG in SODIUM CHLORIDE 0.9% 500ML 500 ML IV SCH ×2
--- NOTE | 2016-12-05 | History and Physical ---
History & Physical Date & Time of Service: Dec 04, 2016 at 23:50 Chief Complaint: Pneumonia Primary Care Physician: Phoenix Klein III, CRNP History of Present Illness Source: patient Mrs Morales is a 76 yo F with mechanical mitral valve on coumadin, type 2 DM, CHF , and recent pneumonia who presents with shortness of breath over the last week. She'll also found to be anemic and received 2 units of packed blood cells yesterday. She went for a ER yesterday, and felt okay, but then returns today with worsening shortness of breath. She denies fevers, chills, chest pain. She mainly after her has dementia, and reports that this is becoming increasingly difficult. Past Medical/Surgical History Medical Problems: (1) Acute pancreatitis Status: Resolved (2) Acute urinary tract infection Status: Resolved (3) Asthma Status: Chronic (4) Atrial fibrillation Status: Chronic (5) Cardiac pacemaker procedure Status: Resolved (6) CKD (chronic kidney disease) Status: Chronic (7) Deep venous thrombosis Status: Resolved (8) Diabetes mellitus Status: Chronic (9) History of mitral valve replacement with mechanical valve Status: Chronic (10) PERSONAL HX OF TIA,& CEREBRAL INFARCTION W/OUT RES DEFICITS Status: Resolved (11) Pneumonia Status: Resolved Surgical Problems: (1) Cholecystectomy Status: Resolved (2) Hysterectomy Status: Resolved Family History Diabetes mellitus Heart disease Hypertension Social History Smoking Status: Former Smoker Smokeless Tobacco Use: No Alcohol Use: none Drug Use: none Marital Status: Housing status: lives with family Occupational Status: retired Immunizations History of Influenza Vaccine: Yes Influenza Vaccine Date: Dec 23, 2010 History of Tetanus Vaccine?: utd History of Pneumococcal: Yes History of Hepatitis B Vaccine: No Multi-Drug Resistant Organisms History of MDRO: No Allergies Coded Allergies: Penicillins (Verified Allergy, Severe, anaphylaxis 30yrs ago, also broke out with sores, 08/17/16) NOTE: Timentin 05/2003 tolerated without problem Doxycycline (Verified Allergy, Intermediate, GI SYMPTOMS, 12/04/16) Diltiazem (Verified Allergy, Unknown, unknown, 08/17/16) Levofloxacin (Verified Allergy, Unknown, UNKNOWN, 08/17/16) Moxifloxacin (Verified Allergy, Unknown, UNKNOWN, 08/17/16) Aspirin (Verified Adverse Reaction, Intermediate, increased bleeding (on warfarin), 08/17/16) Atorvastatin (Verified Adverse Reaction, Unknown, & Crestor = muscle aches /pains, 08/17/16) NSAIDs (Verified Adverse Reaction, Unknown, AVOID PER DR. HICKS - [id number] , 08/17/16) Nortriptyline (Verified Adverse Reaction, Unknown, choking on food, 08/17/16 ) Quinidine (Verified Adverse Reaction, Unknown, flu-like symptoms, 08/17/16) Sulfamethoxazole w/Trimethoprim (Verified Adverse Reaction, Unknown, CONFUSION, 08/17/16) Home Medications Scheduled Cholecalciferol (Vitamin D3), 1,000 INTER.UNIT PO TID Cyanocobalamin (Vitamin B-12), 1,000 MCG PO QAM Diazepam (Valium), 5 MG PO HS Digoxin (Digoxin), 0.125 MG PO QAM Ezetimibe (Ezetimibe), 10 MG PO HS Fexofenadine Hcl (Vickie), 180 MG PO QAM Furosemide (Furosemide), 40 MG PO QAM Gemfibrozil (Gemfibrozil), 600 MG PO BID Hydralazine Hcl (Apresoline), 25 MG PO BID Insulin Glargine (Lantus Solostar), 15 UNIT SC BID Isosorbide Mononitrate (Isosorbide Mononitrate ER), 30 MG PO QAM Levothyroxine Sodium (Synthroid), 175 MCG PO DAILY Metoprolol Succinate (Metoprolol Succinate ER), 50 MG PO QAM Misc Natural Products (Osteo Bi-Flex Joint Shiel), 1 TAB PO BID Montelukast Sod (Montelukast Sodium), 10 MG PO QAM Pyridoxine (Vitamin B6), 100 MG PO QAM Spironolactone (Aldactone), 50 MG PO DAILY Trospium Chloride (Trospium Chloride), 20 MG PO DAILY Warfarin Sod (Jantoven), 2 MG PO 2XWK Warfarin Sodium (Coumadin), 4 MG PO 5XWK Scheduled PRN Diclofenac Sodium (Topical) (Diclofenac Sodium), 1 APPLN TOP QID PRN for Pain- Affected Joints Insulin Aspart (Novolog), 1 DOSE SC ACHS PRN for As Needed Oxycodone HCl (Oxycodone HCl), 5 MG PO DAILY PRN for Pain Review of Systems See HPI for pertinent positives & negatives. A total of 10 systems reviewed and were otherwise negative. Physical Exam Vital Signs Date Time Temp Pulse Resp B/P (MAP) Pulse Ox O2 Delivery O2 Flow Rate FiO2 12/04/16 22:37 68 20 146/69 97 Nasal Cannula 2.0 12/04/16 21:05 95 Nasal Cannula 2.0 12/04/16 21:00 89 16 126/70 89 Room Air 12/04/16 19:10 36.9 82 22 138/62 93 Room Air General Appearance: no apparent distress, + thin Head: normocephalic, atraumatic Eyes: normal inspection, PERRL ENT: hearing grossly normal Neck: supple, no JVD Respiratory/Chest: + crackles (faint at R base) Cardiovascular: normal peripheral pulses, + irregularly irregular, + pertinent finding (mechanical valve click) Abdomen/GI: + pertinent finding (distended w/air) Back: no CVA tenderness, no muscle spasm Extremities/Musculoskelatal: no calf tenderness, no pedal edema Neurologic/Psych: alert, normal mood/affect, oriented x 3 Skin: no rash Diagnostics Laboratory Results Results Past 24 Hours Test 12/04/16 21:57 Range/Units White Blood Count 4.87 4.8-10.8 K/uL Red Blood Count 3.09 4.2-5.4 M/uL Hemoglobin 8.6 12.0-16.0 g/dL Hematocrit 27.1 37-47 % Mean Corpuscular Volume 87.7 80-100 fL Mean Corpuscular Hemoglobin 27.8 25-34 pg Mean Corpuscular Hemoglobin Concent 31.7 32-36 g/dl Platelet Count 217 130-400 K/uL Mean Platelet Volume 9.6 7.4-10.4 fL Neutrophils (%) (Auto) 66.5 % Lymphocytes (%) (Auto) 14.2 % Monocytes (%) (Auto) 14.6 % Eosinophils (%) (Auto) 4.1 % Basophils (%) (Auto) 0.4 % Neutrophils # (Auto) 3.24 1.4-6.5 K/uL Lymphocytes # (Auto) 0.69 1.2-3.4 K/uL Monocytes # (Auto) 0.71 0.11-0.59 K/uL Eosinophils # (Auto) 0.20 0-0.5 K/uL Basophils # (Auto) 0.02 0-0.2 K/uL RDW Standard Deviation 56.0 36.4-46.3 fL RDW Coefficient of Variation 17.5 11.5-14.5 % Immature Granulocyte % (Auto) 0.2 % Immature Granulocyte # (Auto) 0.01 0.00-0.02 K/uL Hypochromasia PRESENT Anisocytosis PRESENT Prothrombin Time 28.5 9.0-12.0 SECONDS Prothromb Time International Ratio 2.6 0.9-1.1 Activated Partial Thromboplast Time 33.1 21.0-31.0 SECONDS Partial Thromboplastin Ratio 1.3 Sodium Level 139 136-145 mmol/L Potassium Level 3.9 3.5-5.1 mmol/L Chloride Level 106 98-107 mmol/L Carbon Dioxide Level 22 21-32 mmol/L Anion Gap 11.0 3-11 mmol/L Blood Urea Nitrogen 58 7-18 mg/dl Creatinine 2.20 0.60-1.20 mg/dl Est Creatinine Clear Calc Drug Dose 21.8 ml/min Estimated GFR () 24.8 Estimated GFR (Non- 21.4 BUN/Creatinine Ratio 26.3 10-20 Random Glucose 184 70-99 mg/dl Calcium Level 9.1 8.5-10.1 mg/dl Phosphorus Level 3.6 2.5-4.9 mg/dl Magnesium Level 2.2 1.8-2.4 mg/dl Total Bilirubin 0.4 0.2-1 mg/dl Direct Bilirubin 0.2 0-0.2 mg/dl Aspartate Amino Transf (AST/SGOT) 25 15-37 U/L Alanine Aminotransferase (ALT/SGPT) 24 12-78 U/L Alkaline Phosphatase 93 45-117 U/L Pro-B-Type Natriuretic Peptide 442 0-900 pg/ml Total Protein 7.2 6.4-8.2 gm/dl Albumin 3.6 3.4-5.0 gm/dl Diagnostic Radiology IMPRESSION: 1. Cardiomegaly and radiographic evidence of mild congestive failure 2. Persistent small right pleural effusion and right basilar airspace opacities, possibly representing a coexistent pneumonia. EKG Atrial fibrillation with frequent ventricular-paced complexes Right bundle branch block Abnormal ECG When compared with ECG of 03-DEC-2016 20:20, Electronic ventricular pacemaker has replaced Atrial fibrillation Impression Assessment and Plan 76 yo F with chronic anemia, likely from coumadin which she needs for mechanical mitral valve, found to also have a RLL pneumonia. RLL pneumonia Pt has multiple allergies. Will treat with Vanco and Primaxin for now. CXR in AM Acute on chronic anemia Trend H&Hs No indication for transfusion at this moment Will continue to follow Type 2 DM Continue home regime of insulin Chronic systolic CHF: - Continue Lasix 40 mg daily - Monitor I&Os and daily weights - ECHO 06/27/16: * There is mild to moderate tricuspid regurgitation. * There is moderate asymmetric left ventricular hypertrophy. * Left ventricular systolic function is normal. * The right ventricle is mild to moderately dilated. * The left atrium is severely dilated. * The right atrium is moderate to severely dilated. * Mild to moderate aortic regurgitation. * There is a mechanical mitral valve. * Normal prosthetic mitral valve gradients. * Right ventricular systolic pressure is elevated at >60mmHg.Compared to an echocardiogram from 2015, the systolic function is now normal. Pulmonary pressures are higher. Atrial fibrillation s/p pacemaker and s/p mechanical mitral valve Continue Digoxin 0.125 mg and Metoprolol 100 mg daily COPD Continue Singulair 10 mg daily VTE: Coumadin Dispo: Tele Code status: Full Attending Addendum: I have physically seen and examined this patient, have directed the resident's medical activities, and agree with the H&P as noted above with the following exceptions as noted. The patient is awake, alert and oriented 3, well-developed and well-nourished , normocephalic and atraumatic, lying in bed and in no acute distress. HEENT--PERRL, EOMI, mucous membranes and oropharynx normal. Neck--supple, no JVD or bruits, thyroid normal, trachea midline, no adenopathy. Heart--irregularly irregular, artificial valve click. no murmurs, rubs or gallops. Lungs--decreased breath sounds right base. No respiratory distress, no accessory muscle use. Abdomen--normal bowel sounds and soft, nontender. Mildly distended and tympanitic. Extremities--no cyanosis, clubbing or edema. There are good distal pulses b/l. Dermatologic--normal skin turgor, normal color, warm and dry, no abnormal lymph nodes, no rash. Neurologic--cranial nerves II through XII grossly intact. Rheumatologic--normal range of motion, nontender, muscles and joints. Psychiatric--normal affect. Assessment and Plan: Right lower lobe pneumonia-- Placed on vancomycin IV and Primaxin IV. Duonebs every 4 hours while awake and every 2 hours when necessary. Serial chest x-rays. Nasal cannula 2 L of oxygen, titrate to keep pulse ox greater than or equal to 92%. Atrial fibrillation/status post pacemaker/status post mechanical mitral valve/ chronic systolic CHF/acute on chronic anemia-- Hemoglobin improved from 7-8.6 after 2 units PRBCs yesterday. Follow serial CBC with differential. Otherwise appears well compensated at this point. Continue all her usual medications, including anticoagulation with warfarin. Follow serial BMP and magnesium levels. Diabetes mellitus-- Continue Lantus 15 units subcutaneous twice a day. Place on Accu-Cheks before meals and at bedtime with NovoLog coverage per scale. Level of Care Telemetry Advanced Directives Existing Advance Directive: No Existing Living Will: No Existing Power of Report Manager: No Resuscitation Status FULL RESUSCITATION VTE Prophylaxis VTE Risk Assessment Done? Y/N: Yes Risk Level: Moderate Given or contraindicated: Warfarin (Coumadin) Resident Tracking Resident Involvement: Resident Care Provided Care Provided: Adult Hospital Medicine
[2016-12-05] MEDS ORDERED: VANCOMYCIN CONSULT ACTIVE PRN (00:30)
[2016-12-05] MEDS ORDERED: IMIPENEM/CILASTATIN CONSULT ACTIVE PRN (00:30)
[2016-12-05 00:36] LABS: HEMATOCRIT 25.6 % (37-47)
[2016-12-05] MEDS: IMIPENEM-CILASTATIN 200 MG in DEXTROSE 5% 100ML 100 ML IV SCH ×4 (02:26→19:32)
[2016-12-05] MEDS ORDERED: DIAZEPAM 5MG TAB PO SCH (02:30)
[2016-12-05 03:45] VITALS: BP 122/78; PULSE 64; TEMP 37.1; O2SAT 98
[2016-12-05] MEDS ORDERED: HEPARIN SOD 5000 UNIT/0.5 ML CARP SQ SCH (06:00)
[2016-12-05] MEDS: LEVOTHYROXINE 175 MCG TAB PO SCH (06:31)
[2016-12-05 06:54] VITALS: BP 143/69; PULSE 73; TEMP 36.7; O2SAT 97
[2016-12-05] MEDS: FUROSEMIDE 40 MG TAB PO SCH (07:55)
[2016-12-05] MEDS: FEXOFENADINE HCL 180 MG TAB PO SCH (07:55)
[2016-12-05] MEDS: PYRIDOXINE HCL 50 MG TAB PO SCH (07:55)
[2016-12-05] MEDS: GEMFIBROZIL 600 MG TAB PO SCH ×2 (07:55→21:20)
[2016-12-05] MEDS: METOPROLOL SUCC 50MG EXT REL TAB PO SCH (07:55)
[2016-12-05] MEDS: MONTELUKAST SOD 10 MG TAB PO SCH (07:55)
[2016-12-05] MEDS: SPIRONOLACTONE 25 MG TAB PO SCH (07:55)
[2016-12-05] MEDS: ISOSORBIDE MONONITRATE 30 MG TABCR PO SCH (07:56)
[2016-12-05] MEDS ORDERED: VANCOMYCIN INJ 1,000 MG in SODIUM CHLORIDE 0.9% 250ML 250 ML IV SCH (09:00)
[2016-12-05] MEDS: INSULIN ASPART 100 UNITS/ML 3 ML PEN SC SCH ×4 (09:08→21:28)
[2016-12-05] MEDS: INSULIN GLARGINE SOLOSTAR 100 UNITS/ML 3 ML PEN SC SCH ×2 (09:10→21:28)
[2016-12-05 11:17] VITALS: BP 124/59; PULSE 84; TEMP 36.6; O2SAT 98
--- NOTE | 2016-12-05 11:28 | Medical Consult ---
Consultation Date of Consultation: Dec 05, 2016. Attending Physician: Tang Guzman D.O. Reason for Consultation: Per protocol, imipenem use History of Present Illness 76-year-old female with history of mitral valve replacement, type 2 diabetes mellitus recently treated for pneumonia, who was now admitted with several days of progressively worsening shortness of breath, cough, yellow sputum, and possible low-grade fever. She was given doxycycline without improvement.She eventually came to the emergency department where chest x-ray, also read by me, showed evidence of probable right lower lobe pneumonia. Because of multiple antibiotic allergies, she was started on imipenem. Feels slightly better this morning. Cultures are pending. She appears to be tolerating imipenem without apparent difficulty. Past Medical/Surgical History Medical Problems: (1) Arm pain, left Status: Acute (2) Back pain Status: Acute (3) Cat bite of right lower leg with infection Status: Acute (4) Cellulitis Status: Acute (5) COPD exacerbation Status: Acute (6) Dehydration Status: Acute (7) Fever Status: Acute (8) Fracture of right distal radius Status: Acute (9) GI bleed Status: Acute (10) GI bleed Status: Acute (11) Guaiac + stool Status: Acute (12) Left hip pain Status: Acute (13) Medication adverse effect Status: Acute (14) Pleural effusion Status: Acute (15) PNA (pneumonia) Status: Acute (16) Rapid atrial fibrillation Status: Acute (17) Respiratory distress Status: Acute (18) Right arm fracture Status: Acute (19) Superficial phlebitis Status: Acute (20) Supratherapeutic INR Status: Acute Medical Problems: (1) Acute kidney injury (2) Acute pancreatitis (3) Acute respiratory failure with hypoxia (4) Acute systolic congestive heart failure (5) Acute urinary tract infection (6) Asthma (7) Atrial fibrillation (8) Cardiac pacemaker procedure (9) CKD (chronic kidney disease) (10) Contrast dye induced nephropathy (11) Deep venous thrombosis (12) Diabetes mellitus (13) History of mitral valve replacement with mechanical valve (14) PERSONAL HX OF TIA,& CEREBRAL INFARCTION W/OUT RES DEFICITS (15) Pneumonia (16) Replacement of mitral valve with mechanical prosthesis (17) Sepsis Surgical Problems: (1) Cholecystectomy (2) Hysterectomy Family History Diabetes mellitus Heart disease Hypertension Social History Smoking Status: Former Smoker Smokeless Tobacco Use: No Alcohol Use: none Drug Use: none Marital Status: Housing Status: lives with family Occupation Status: retired Allergies Coded Allergies: Penicillins (Verified Allergy, Severe, anaphylaxis 30yrs ago, also broke out with sores, 08/17/16) NOTE: Timentin 05/2003 tolerated without problem Doxycycline (Verified Allergy, Intermediate, GI SYMPTOMS, 12/04/16) Diltiazem (Verified Allergy, Unknown, unknown, 08/17/16) Levofloxacin (Verified Allergy, Unknown, UNKNOWN, 08/17/16) Moxifloxacin (Verified Allergy, Unknown, UNKNOWN, 08/17/16) Aspirin (Verified Adverse Reaction, Intermediate, increased bleeding (on warfarin), 08/17/16) Atorvastatin (Verified Adverse Reaction, Unknown, & Crestor = muscle aches /pains, 08/17/16) NSAIDs (Verified Adverse Reaction, Unknown, AVOID PER DR. HICKS - [id number] , 08/17/16) Nortriptyline (Verified Adverse Reaction, Unknown, choking on food, 08/17/16 ) Quinidine (Verified Adverse Reaction, Unknown, flu-like symptoms, 08/17/16) Sulfamethoxazole w/Trimethoprim (Verified Adverse Reaction, Unknown, CONFUSION, 08/17/16) Current Inpatient Medications Current Inpatient Medications Medications (Trade) Dose Ordered Sig/Albin Route Start Time Stop Time Status Last Admin Dose Admin Acetaminophen (Tylenol Tab) 650 mg Q4H PRN PO 12/04/16 22:30 01/03/17 22:29 Al Hydrox/Mg Hydrox/Simethicone (Maalox Max Susp) 15 ml Q4H PRN PO 12/04/16 22:30 01/03/17 22:29 Magnesium Hydroxide (Milk Of Magnesia Susp) 30 ml Q12H PRN PO 12/04/16 22:30 01/03/17 22:29 Ondansetron HCl (Zofran Inj) 4 mg Q6H PRN IV 12/04/16 22:30 01/03/17 22:29 Polyethylene (Miralax Powder Packet) 17 gm DAILY PRN PO 12/04/16 22:30 01/03/17 22:29 Diazepam (Valium Tab) 5 mg HS PO 12/05/16 21:00 01/04/17 20:59 Diclofenac Sodium (Voltaren 1% Top Gel) 1 appln QID PRN EXT 12/04/16 22:30 01/03/17 22:29 Digoxin (Lanoxin Tab) 0.125 mg DAILY@1600 PO 12/05/16 16:00 01/04/17 15:59 EZETIMIBE (Zetia Tab) 10 mg HS PO 12/05/16 21:00 01/04/17 20:59 Fexofenadine HCl (Vickie Tab) 180 mg QAM PO 12/05/16 09:00 01/04/17 08:59 12/05/16 07:55 180 MG Furosemide (Lasix Tab) 40 mg QAM PO 12/05/16 09:00 01/04/17 08:59 12/05/16 07:55 40 MG Gemfibrozil (Lopid Tab) 600 mg BID PO 12/05/16 09:00 01/04/17 08:59 12/05/16 07:55 600 MG Hydralazine HCl (Apresoline Tab) 25 mg BID PO 12/05/16 09:00 01/04/17 08:59 12/05/16 07:55 25 MG Insulin Aspart (novoLOG ASPART) ACHS SC 12/05/16 06:30 01/04/17 06:29 Insulin Glargine (Lantus Solostar Pen) 5 units BID SC 12/05/16 09:00 01/04/17 08:59 12/05/16 09:10 5 UNITS Isosorbide Mononitrate (Imdur Ext Rel Tab) 30 mg QAM PO 12/05/16 09:00 01/04/17 08:59 12/05/16 07:56 30 MG Levothyroxine Sodium (Synthroid Tab) 175 mcg DAILYBB PO 12/05/16 06:30 01/04/17 06:59 12/05/16 06:31 175 MCG Metoprolol Succinate (Toprol Xl Tab) 50 mg QAM PO 12/05/16 09:00 01/04/17 08:59 12/05/16 07:55 50 MG Montelukast Sodium (Singulair Tab) 10 mg QAM PO 12/05/16 09:00 01/04/17 08:59 12/05/16 07:55 10 MG Pyridoxine HCl (Vitamin B-6 Tab) 100 mg QAM PO 12/05/16 09:00 01/04/17 08:59 12/05/16 07:55 100 MG Warfarin Sodium (Coumadin Tab) 3 mg DAILY@1600 PO 12/06/16 16:00 01/05/17 15:59 Spironolactone (Aldactone Tab) 50 mg DAILY PO 12/05/16 09:00 01/04/17 08:59 12/05/16 07:55 50 MG Glucose (Glucose 40% Gel) 15-30 GRAMS 15 GRAMS... UD PRN PO 12/04/16 22:45 01/03/17 22:44 Glucose (Glucose Chew Tab) 4-8 Tablets 4 Tabl... UD PRN PO 12/04/16 22:45 01/03/17 22:44 Dextrose (Dextrose 50% 50ML Syringe) 25-50ML OF 50% DW IV FOR... UD PRN IV 12/04/16 22:45 01/03/17 22:44 Glucagon (Glucagon Inj) 1 mg UD PRN SQ 12/04/16 22:45 01/03/17 22:44 Imipenem/ Cilastatin Sodium 200 mg/Dextrose 108 ml @ 105 mls/hr Q6H IV 12/05/16 02:00 12/12/16 01:59 12/05/16 09:24 105 MLS/HR Imipenem/ Cilastatin Sodium (Consult) 1 ea UD PRN N/A 12/05/16 00:30 01/04/17 00:29 Vancomycin HCl (Consult) 1 ea UD PRN N/A 12/05/16 00:30 01/04/17 00:29 Review of Systems All systems were reviewed and are negative except as per HPI Physical Exam Date Time Temp Pulse Resp B/P (MAP) Pulse Ox O2 Delivery O2 Flow Rate FiO2 12/05/16 11:17 36.6 84 12 124/59 (80) 98 Nasal Cannula 2.0 12/05/16 10:48 Nasal Cannula 2.0 12/05/16 08:00 Nasal Cannula 2.0 12/05/16 06:54 36.7 73 20 143/69 (93) 97 Nasal Cannula 2.0 12/05/16 04:55 Nasal Cannula 2.0 12/05/16 03:45 37.1 64 20 122/78 (93) 98 Nasal Cannula 2.0 12/04/16 23:58 36.7 67 20 155/65 (95) 98 Nasal Cannula 2.0 12/04/16 23:36 Nasal Cannula 2.0 12/04/16 22:37 68 20 146/69 97 Nasal Cannula 2.0 12/04/16 21:05 95 Nasal Cannula 2.0 12/04/16 21:00 89 16 126/70 89 Room Air 12/04/16 19:10 36.9 82 22 138/62 93 Room Air General Appearance: WD/WN, no apparent distress Head: normocephalic, atraumatic Eyes: normal inspection, EOMI, sclerae normal ENT: normal ENT inspection, pharynx normal Neck: supple, no adenopathy, thyroid normal, trachea midline Respiratory/Chest: chest non-tender, no respiratory distress, no accessory muscle use, + rales ( right base) Cardiovascular: regular rate, rhythm, no gallop, no murmur Abdomen/GI: normal bowel sounds, non tender, soft, no organomegaly Back: normal inspection, no CVA tenderness Extremities/Musculoskelatal: no calf tenderness, non-tender Neurologic/Psych: alert, oriented x 3 Skin: normal color, warm/dry, no rash Lymphatic: no adenopathy Laboratory Results Date/Time Source Procedure Growth Status 12/05/16 10:20 Nasal MRSA DNA Surveillance Screen Pending Received Last 24 Hours Test 12/04/16 21:57 12/05/16 00:28 12/05/16 06:04 12/05/16 07:02 White Blood Count 4.87 K/uL Red Blood Count 3.09 M/uL Hemoglobin 8.6 g/dL 8.2 g/dL 8.5 g/dL Hematocrit 27.1 % 25.6 % 27.0 % Mean Corpuscular Volume 87.7 fL Mean Corpuscular Hemoglobin 27.8 pg Mean Corpuscular Hemoglobin Concent 31.7 g/dl Platelet Count 217 K/uL Mean Platelet Volume 9.6 fL Neutrophils (%) (Auto) 66.5 % Lymphocytes (%) (Auto) 14.2 % Monocytes (%) (Auto) 14.6 % Eosinophils (%) (Auto) 4.1 % Basophils (%) (Auto) 0.4 % Neutrophils # (Auto) 3.24 K/uL Lymphocytes # (Auto) 0.69 K/uL Monocytes # (Auto) 0.71 K/uL Eosinophils # (Auto) 0.20 K/uL Basophils # (Auto) 0.02 K/uL RDW Standard Deviation 56.0 fL RDW Coefficient of Variation 17.5 % Immature Granulocyte % (Auto) 0.2 % Immature Granulocyte # (Auto) 0.01 K/uL Hypochromasia PRESENT Anisocytosis PRESENT Prothrombin Time 28.5 SECONDS Prothromb Time International Ratio 2.6 Activated Partial Thromboplast Time 33.1 SECONDS Partial Thromboplastin Ratio 1.3 Sodium Level 139 mmol/L Potassium Level 3.9 mmol/L Chloride Level 106 mmol/L Carbon Dioxide Level 22 mmol/L Anion Gap 11.0 mmol/L Blood Urea Nitrogen 58 mg/dl Creatinine 2.20 mg/dl Est Creatinine Clear Calc Drug Dose 21.8 ml/min Estimated GFR () 24.8 Estimated GFR (Non- 21.4 BUN/Creatinine Ratio 26.3 Random Glucose 184 mg/dl Calcium Level 9.1 mg/dl Phosphorus Level 3.6 mg/dl Magnesium Level 2.2 mg/dl Total Bilirubin 0.4 mg/dl Direct Bilirubin 0.2 mg/dl Aspartate Amino Transf (AST/SGOT) 25 U/L Alanine Aminotransferase (ALT/SGPT) 24 U/L Alkaline Phosphatase 93 U/L Pro-B-Type Natriuretic Peptide 442 pg/ml Total Protein 7.2 gm/dl Albumin 3.6 gm/dl Bedside Glucose 107 mg/dl [~ rep ct add3]] CHEST 2 VIEWS ROUTINE CLINICAL HISTORY: Pneumonia, shortness of breath. COMPARISON STUDY: 12/03/2016 FINDINGS: The heart is enlarged. A valvular prosthesis is visualized. There are postsurgical changes of a midline sternotomy. There is a left subclavian single chamber central venous pacemaker. There is mild pulmonary vascular congestion. There is a small right pleural effusion with associated right basilar airspace opacities.[ IMPRESSION: 1. Cardiomegaly and radiographic evidence of mild congestive failure 2. Persistent small right pleural effusion and right basilar airspace opacities, possibly representing a coexistent pneumonia. Electronically signed by: Nikita Culp M.D. 12/04/2016 10:01 PM Dictated Date/Time: 12/04/2016 9:59 PM The status of this report is Signed. Draft = Not yet reviewed or approved by Radiologist. Signed = Reviewed and a Assessment & Plan 76-year-old female with longstanding COPD now with what appears to be right lower lobe pneumonia. Given multiple antibiotic allergies, current therapy is appropriate pending further culture results. May be able to change to ertapenem therapy in the near future to allow outpatient treatment. Will discuss with all involved. Will follow.
[2016-12-05 12:19] LABS: HEMATOCRIT 28.9 % (37-47)
[2016-12-05 12:36] LABS: CREATININE 1.9 mg/dl (0.60-1.20)
[2016-12-05 13:04] VITALS: BP 133/62; PULSE 93; TEMP 36.6; O2SAT 100
--- NOTE | 2016-12-05 13:24 | Clinical Documentation Query ---
QUERY 1 OF [address] CANTU, In your clinical opinion is this patient being managed for: ( x ) Chronic diastolic CHF ( ) Chronic systolic CHF ( ) Chronic systolic and diastolic CHF ( ) Not Agree ( ) Other explanation of clinical findings (Please Explain) ( ) Unable to determine (Please Define) ( ) Need to Discuss The medical record reflects the following clinical findings, treatment, and risk factors. Clinical Indicators: 76 yo female presenting with pneumonia. Documentation in the clinical record indicates pt with chronic systolic CHF. Review of ECHO from 06/27/16 showed EF of 60-65%. ECHO from 04/06/14 showed EF of 40-45% Treatment:chronic tx includes lasix, digoxin, apresoline, isosorbide, metoprolol, aldactone. I/O, daily wts, tele monitoring Risk Factors: age, DM, A fib, CKD QUERY 2 OF 2 In your clinical opinion is this patient being managed for: (x ) Chronic kidney disease, stage 4 ( ) Chronic kidney disease, stage 3-4 ( ) Not Agree ( ) Other explanation of clinical findings (Please Explain) ( ) Unable to determine (Please Define) ( ) Need to Discuss The medical record reflects the following clinical findings, treatment, and risk factors. Clinical Indicators: Pt noted to have CKD. Review of historical GFR range showed 19.2-37.2 over the past year Treatment: monitor PRP's, treat comorbid diseases Risk Factors: age, DM, A fib, CHF Please clarify and document your clinical opinion in the progress notes and discharge summary. Terms such as "probable", "suspected", "likely", "questionable", "possible", or "still to be ruled out" are acceptable. IF IN AGREEMENT, YOU MUST DOCUMENT ABOVE DIAGNOSTIC STATEMENT IN DAILY PROGRESS NOTES AND DISCHARGE SUMMARY. This document is not part of the patient's record. Thank You, Justa Leonardo, RN [phone]
--- NOTE | 2016-12-05 14:08 | Hospitalist Progress Note ---
Hospitalist Progress Note Date of Service Dec 05, 2016. Subjective Pt evaluation today including: conversation w/ patient, physical exam, chart review, lab review, review of studies, review of inpatient medication list Patient seen and evaluated. No acute events overnight. No events on telemonitoring and is paced. Objective Vital Signs Date Time Temp Pulse Resp B/P (MAP) Pulse Ox O2 Delivery O2 Flow Rate FiO2 12/05/16 13:04 36.6 93 16 133/62 (85) 100 Nasal Cannula 2.0 12/05/16 11:17 36.6 84 12 124/59 (80) 98 Nasal Cannula 2.0 12/05/16 10:48 Nasal Cannula 2.0 12/05/16 08:00 Nasal Cannula 2.0 12/05/16 06:54 36.7 73 20 143/69 (93) 97 Nasal Cannula 2.0 12/05/16 04:55 Nasal Cannula 2.0 12/05/16 03:45 37.1 64 20 122/78 (93) 98 Nasal Cannula 2.0 12/04/16 23:58 36.7 67 20 155/65 (95) 98 Nasal Cannula 2.0 12/04/16 23:36 Nasal Cannula 2.0 12/04/16 22:37 68 20 146/69 97 Nasal Cannula 2.0 12/04/16 21:05 95 Nasal Cannula 2.0 12/04/16 21:00 89 16 126/70 89 Room Air 12/04/16 19:10 36.9 82 22 138/62 93 Room Air Laboratory Results Last 24 Hours Test 12/04/16 21:57 12/05/16 00:28 12/05/16 06:04 12/05/16 07:02 White Blood Count 4.87 K/uL Red Blood Count 3.09 M/uL Hemoglobin 8.6 g/dL 8.2 g/dL 8.5 g/dL Hematocrit 27.1 % 25.6 % 27.0 % Mean Corpuscular Volume 87.7 fL Mean Corpuscular Hemoglobin 27.8 pg Mean Corpuscular Hemoglobin Concent 31.7 g/dl Platelet Count 217 K/uL Mean Platelet Volume 9.6 fL Neutrophils (%) (Auto) 66.5 % Lymphocytes (%) (Auto) 14.2 % Monocytes (%) (Auto) 14.6 % Eosinophils (%) (Auto) 4.1 % Basophils (%) (Auto) 0.4 % Neutrophils # (Auto) 3.24 K/uL Lymphocytes # (Auto) 0.69 K/uL Monocytes # (Auto) 0.71 K/uL Eosinophils # (Auto) 0.20 K/uL Basophils # (Auto) 0.02 K/uL RDW Standard Deviation 56.0 fL RDW Coefficient of Variation 17.5 % Immature Granulocyte % (Auto) 0.2 % Immature Granulocyte # (Auto) 0.01 K/uL Hypochromasia PRESENT Anisocytosis PRESENT Prothrombin Time 28.5 SECONDS Prothromb Time International Ratio 2.6 Activated Partial Thromboplast Time 33.1 SECONDS Partial Thromboplastin Ratio 1.3 Sodium Level 139 mmol/L Potassium Level 3.9 mmol/L Chloride Level 106 mmol/L Carbon Dioxide Level 22 mmol/L Anion Gap 11.0 mmol/L Blood Urea Nitrogen 58 mg/dl Creatinine 2.20 mg/dl Est Creatinine Clear Calc Drug Dose 21.8 ml/min Estimated GFR () 24.8 Estimated GFR (Non- 21.4 BUN/Creatinine Ratio 26.3 Random Glucose 184 mg/dl Calcium Level 9.1 mg/dl Phosphorus Level 3.6 mg/dl Magnesium Level 2.2 mg/dl Total Bilirubin 0.4 mg/dl Direct Bilirubin 0.2 mg/dl Aspartate Amino Transf (AST/SGOT) 25 U/L Alanine Aminotransferase (ALT/SGPT) 24 U/L Alkaline Phosphatase 93 U/L Pro-B-Type Natriuretic Peptide 442 pg/ml Total Protein 7.2 gm/dl Albumin 3.6 gm/dl Bedside Glucose 107 mg/dl Test 12/05/16 11:23 12/05/16 12:08 Bedside Glucose 186 mg/dl Hemoglobin 9.2 g/dL Hematocrit 28.9 % Creatinine 1.90 mg/dl Est Creatinine Clear Calc Drug Dose 23.9 ml/min Estimated GFR () 29.6 Estimated GFR (Non- 25.5 Assessment and Plan 76 yo F with chronic anemia, likely from coumadin which she needs for mechanical mitral valve, found to also have a RLL pneumonia. RLL Pneumonia: - Procalcitonin pending - no leukocytosis or fever - having intermittent coughing but on RA - Primaxin and Vanc at this time awaiting procalcitonin - ID following - appreciate recommendations for need for Abx vs outpatient coverage Acute on Chronic Anemia: - Hgb stable at 9.2 and will continue to monitor - transfuse if < 8 given cardiac history Chronic Systolic CHF: Without Exacerbation: - SOB may be more from pulmonary HTN - Lasix 40 mg daily and Imdur 30 mg daily and Coumadin 3 mg daily T2DM: - Lantus 5 units SC BID and SSI Atrial Fibrillation S/P Pacemaker and S/P Mech Mitral Valve: - Digoxin 0.125 mg daily and Toprol XL 50 mg daily COPD without Exacerbation: - Singulair 10 mg daily CKD Stage III-IV: Stable at Baseline DVT Prophylaxis: Coumadin Code Status: FULL RESUSCITATION Disposition: Hopeful D/C 1-2 days - Expresses concern for need for possible placement for her Continued [facility] stay due to: multiple IV medications needed Discharge planning: home
[2016-12-05 15:49] VITALS: BP 122/53; PULSE 65; TEMP 37.4; O2SAT 99
[2016-12-05] MEDS: DIGOXIN 0.125 MG TAB PO SCH (16:06)
[2016-12-05 19:52] VITALS: BP 147/64; PULSE 64; TEMP 37.3; O2SAT 95
[2016-12-05] MEDS: EZETIMIBE 10MG TAB PO SCH (21:20)
[2016-12-05] MEDS: DIAZEPAM 5MG TAB PO SCH (21:20)
[2016-12-05] MEDS ORDERED: WARFARIN SOD 4 MG TAB PO ONE (21:30)
[2016-12-06] VITALS: BP 121/55; PULSE 71; TEMP 37.1; O2SAT 96
[2016-12-06] MEDS: IMIPENEM-CILASTATIN 200 MG in DEXTROSE 5% 100ML 100 ML IV SCH ×2 (01:32→07:50)
[2016-12-06 06:00] LABS: HEMATOCRIT 27.9 % (37-47); MEAN CELL VOLUME 89.1 fL (80-100); MEAN CORPUSCULAR HEMOGLOBIN 27.2 pg (25-34); MEAN CORPUSCULAR HGB CONC 30.5 g/dl (32-36); PLATELET COUNT 229 K/uL (130-400); RED BLOOD COUNT 3.13 M/uL (4.2-5.4); WHITE BLOOD COUNT 4.56 K/uL (4.8-10.8)
[2016-12-06 06:07] LABS: INR 2.4 (0.9-1.1); PROTHROMBIN TIME (PATIENT) 27.2 SECONDS (9.0-12.0)
[2016-12-06] MEDS: LEVOTHYROXINE 175 MCG TAB PO SCH (06:13)
[2016-12-06] MEDS: INSULIN ASPART 100 UNITS/ML 3 ML PEN SC SCH ×4 (06:30→22:24)
[2016-12-06 06:31] LABS: BUN/CREATININE RATIO 25.1 (10-20); CALCIUM 8.7 mg/dl (8.5-10.1); CREATININE 1.9 mg/dl (0.60-1.20)
[2016-12-06 07:08] VITALS: BP 117/53; PULSE 68; TEMP 36.8; O2SAT 100
[2016-12-06 07:45] VITALS: BP 146/66; PULSE 84
[2016-12-06] MEDS: FUROSEMIDE 40 MG TAB PO SCH (07:52)
[2016-12-06] MEDS: SPIRONOLACTONE 25 MG TAB PO SCH (07:52)
[2016-12-06] MEDS: MONTELUKAST SOD 10 MG TAB PO SCH (07:53)
[2016-12-06] MEDS: METOPROLOL SUCC 50MG EXT REL TAB PO SCH (07:53)
[2016-12-06] MEDS: GEMFIBROZIL 600 MG TAB PO SCH ×2 (07:53→22:21)
[2016-12-06] MEDS: ISOSORBIDE MONONITRATE 30 MG TABCR PO SCH (07:53)
[2016-12-06] MEDS: FEXOFENADINE HCL 180 MG TAB PO SCH (07:53)
[2016-12-06] MEDS: PYRIDOXINE HCL 50 MG TAB PO SCH (07:53)
[2016-12-06] MEDS: INSULIN GLARGINE SOLOSTAR 100 UNITS/ML 3 ML PEN SC SCH ×2 (07:58→22:23)
[2016-12-06 08:00] VITALS: O2SAT 100
[2016-12-06] MEDS: ONDANSETRON INJ 2 MG/ML 2 ML VIAL IV PRN (10:57)
[2016-12-06] MEDS: ACETAMINOPHEN 325 MG TAB PO PRN (11:05)
--- NOTE | 2016-12-06 13:47 | DIAGNOSTIC IMAGING REPORT ---
CHEST 2 VIEWS ROUTINE CLINICAL HISTORY: Hypoxia, follow up right lower lobe infiltrate COMPARISON STUDY: 12/04/2016 FINDINGS: The heart remains enlarged. There are postsurgical changes of midline sternotomy and valvular replacement. There is a left subclavian single chamber central venous pacemaker present. There is persistent mild pulmonary vascular congestion. There is an increasing small right pleural effusion with associated right basilar airspace opacities.[ IMPRESSION: 1. Persistent cardiomegaly and radiographic evidence of mild congestive failure 2. Increasing small right pleural effusion with associated right basilar airspace opacities Electronically signed by: Nikita Culp M.D. 12/06/2016 1:46 PM Dictated Date/Time: 12/06/2016 1:45 PM
[2016-12-06 14:57] VITALS: BP 155/50; PULSE 65; TEMP 36.3; O2SAT 94
[2016-12-06] MEDS ORDERED: WARFARIN SOD 4 MG TAB PO SCH (16:00)
[2016-12-06] MEDS ORDERED: WARFARIN SOD 3 MG TAB PO SCH (16:00)
[2016-12-06] MEDS: DIGOXIN 0.125 MG TAB PO SCH (16:57)
[2016-12-06] MEDS: DIAZEPAM 5MG TAB PO SCH (22:21)
[2016-12-06] MEDS: EZETIMIBE 10MG TAB PO SCH (22:21)
[2016-12-07 00:33] VITALS: BP 125/63; PULSE 84; TEMP 36.4; O2SAT 93
[2016-12-07 05:16] VITALS: BP 91/51; PULSE 72; TEMP 36.7; O2SAT 96
[2016-12-07] MEDS: LEVOTHYROXINE 175 MCG TAB PO SCH (05:59)
[2016-12-07] MEDS: INSULIN ASPART 100 UNITS/ML 3 ML PEN SC SCH ×4 (06:30→21:00)
[2016-12-07] MEDS: FUROSEMIDE 40 MG TAB PO SCH (07:41)
[2016-12-07] MEDS: FEXOFENADINE HCL 180 MG TAB PO SCH (07:41)
[2016-12-07] MEDS: MONTELUKAST SOD 10 MG TAB PO SCH (07:41)
[2016-12-07] MEDS: PYRIDOXINE HCL 50 MG TAB PO SCH (07:41)
[2016-12-07] MEDS: ISOSORBIDE MONONITRATE 30 MG TABCR PO SCH (07:42)
[2016-12-07] MEDS: METOPROLOL SUCC 50MG EXT REL TAB PO SCH (07:42)
[2016-12-07] MEDS: SPIRONOLACTONE 25 MG TAB PO SCH (07:42)
[2016-12-07] MEDS: GEMFIBROZIL 600 MG TAB PO SCH ×2 (07:43→22:16)
[2016-12-07 07:44] LABS: PROTHROMBIN TIME (PATIENT) 33.4 SECONDS (9.0-12.0)
[2016-12-07 07:45] VITALS: BP 129/53; PULSE 74; TEMP 36.9; O2SAT 91
[2016-12-07] MEDS: INSULIN GLARGINE SOLOSTAR 100 UNITS/ML 3 ML PEN SC SCH ×2 (07:46→22:19)
[2016-12-07 08:00] VITALS: O2SAT 91
[2016-12-07 08:01] LABS: CREATININE 1.9 mg/dl (0.60-1.20)
--- NOTE | 2016-12-07 08:35 | Progress Note ---
Subjective Date of Service: Dec 06, 2016. Subjective Pt evaluation today including: conversation w/ patient, physical exam, lab review, review of studies, review of inpatient medication list Pain: no pain PO Intake: adequate Voiding: no voiding problems patient was sitting in chair at the time of my visit c/o of nausea and vomiting, concerned that antibiotic making her sick no cough, no fever, normal WBC and discussed that procalcitonin was normal discussed repeating CXR and holding antibiotics, she agreed with this plan she was feeling less short of breath asked therapy to evaluate her, she refused, said she was feeling strong, at baseline CXR PA and lateral, showed increased right pleural effusion, right basilar opacities, less edema reviewed labs, Hb 8.5 Problem List Medical Problems: (1) Arm pain, left Status: Acute (2) Back pain Status: Acute (3) Cat bite of right lower leg with infection Status: Acute (4) Cellulitis Status: Acute (5) COPD exacerbation Status: Acute (6) Dehydration Status: Acute (7) Fever Status: Acute (8) Fracture of right distal radius Status: Acute (9) GI bleed Status: Acute (10) GI bleed Status: Acute (11) Guaiac + stool Status: Acute (12) Left hip pain Status: Acute (13) Medication adverse effect Status: Acute (14) Pleural effusion Status: Acute (15) PNA (pneumonia) Status: Acute (16) Rapid atrial fibrillation Status: Acute (17) Respiratory distress Status: Acute (18) Right arm fracture Status: Acute (19) Superficial phlebitis Status: Acute (20) Supratherapeutic INR Status: Acute Review of Systems Constitutional: + weakness, + fatigue Respiratory: + dyspnea on exertion All Other Systems: Reviewed and Negative Medications Current Inpatient Medications Medications (Trade) Dose Ordered Sig/Albin Route Start Time Stop Time Status Last Admin Dose Admin Acetaminophen (Tylenol Tab) 650 mg Q4H PRN PO 12/04/16 22:30 01/03/17 22:29 12/06/16 11:05 650 MG Al Hydrox/Mg Hydrox/Simethicone (Maalox Max Susp) 15 ml Q4H PRN PO 12/04/16 22:30 01/03/17 22:29 Magnesium Hydroxide (Milk Of Magnesia Susp) 30 ml Q12H PRN PO 12/04/16 22:30 01/03/17 22:29 Ondansetron HCl (Zofran Inj) 4 mg Q6H PRN IV 12/04/16 22:30 01/03/17 22:29 12/06/16 10:57 4 MG Polyethylene (Miralax Powder Packet) 17 gm DAILY PRN PO 12/04/16 22:30 01/03/17 22:29 Diazepam (Valium Tab) 5 mg HS PO 12/05/16 21:00 01/04/17 20:59 12/06/16 22:21 5 MG Diclofenac Sodium (Voltaren 1% Top Gel) 1 appln QID PRN EXT 12/04/16 22:30 01/03/17 22:29 Digoxin (Lanoxin Tab) 0.125 mg DAILY@1600 PO 12/05/16 16:00 01/04/17 15:59 12/06/16 16:57 0.125 MG EZETIMIBE (Zetia Tab) 10 mg HS PO 12/05/16 21:00 01/04/17 20:59 12/06/16 22:21 10 MG Fexofenadine HCl (Vickie Tab) 180 mg QAM PO 12/05/16 09:00 01/04/17 08:59 12/07/16 07:41 180 MG Furosemide (Lasix Tab) 40 mg QAM PO 12/05/16 09:00 01/04/17 08:59 12/07/16 07:41 40 MG Gemfibrozil (Lopid Tab) 600 mg BID PO 12/05/16 09:00 01/04/17 08:59 12/07/16 07:43 600 MG Hydralazine HCl (Apresoline Tab) 25 mg BID PO 12/05/16 09:00 01/04/17 08:59 12/07/16 07:42 25 MG Insulin Aspart (novoLOG ASPART) ACHS SC 12/05/16 06:30 01/04/17 06:29 12/06/16 22:24 1 UNITS Insulin Glargine (Lantus Solostar Pen) 5 units BID SC 12/05/16 09:00 01/04/17 08:59 12/07/16 07:46 5 UNITS Isosorbide Mononitrate (Imdur Ext Rel Tab) 30 mg QAM PO 12/05/16 09:00 01/04/17 08:59 12/07/16 07:42 30 MG Levothyroxine Sodium (Synthroid Tab) 175 mcg DAILYBB PO 12/05/16 06:30 01/04/17 06:59 12/07/16 05:59 175 MCG Metoprolol Succinate (Toprol Xl Tab) 50 mg QAM PO 12/05/16 09:00 01/04/17 08:59 12/07/16 07:42 50 MG Montelukast Sodium (Singulair Tab) 10 mg QAM PO 12/05/16 09:00 01/04/17 08:59 12/07/16 07:41 10 MG Pyridoxine HCl (Vitamin B-6 Tab) 100 mg QAM PO 12/05/16 09:00 01/04/17 08:59 12/07/16 07:41 100 MG Spironolactone (Aldactone Tab) 50 mg DAILY PO 12/05/16 09:00 01/04/17 08:59 12/07/16 07:42 50 MG Glucose (Glucose 40% Gel) 15-30 GRAMS 15 GRAMS... UD PRN PO 12/04/16 22:45 01/03/17 22:44 Glucose (Glucose Chew Tab) 4-8 Tablets 4 Tabl... UD PRN PO 12/04/16 22:45 01/03/17 22:44 Dextrose (Dextrose 50% 50ML Syringe) 25-50ML OF 50% DW IV FOR... UD PRN IV 12/04/16 22:45 01/03/17 22:44 Glucagon (Glucagon Inj) 1 mg UD PRN SQ 12/04/16 22:45 01/03/17 22:44 Warfarin Sodium (Coumadin Tab) 4 mg SuMoWeThFr@1600 PO 12/06/16 16:00 01/05/17 15:59 12/06/16 16:59 4 MG Warfarin Sodium (Coumadin Tab) 2 mg TuSa@1600 PO 12/07/16 16:00 01/06/17 15:59 Objective Vital Signs Date Time Temp Pulse Resp B/P (MAP) Pulse Ox O2 Delivery O2 Flow Rate FiO2 12/07/16 08:00 91 Room Air 12/07/16 07:45 36.9 74 16 129/53 (78) 91 Room Air 12/07/16 05:16 36.7 72 17 91/51 (64) 96 Nasal Cannula 2.5 12/07/16 00:33 36.4 84 18 125/63 (83) 93 Nasal Cannula 2.0 12/07/16 00:00 Nasal Cannula 2.0 12/06/16 16:57 66 12/06/16 16:00 Room Air 12/06/16 14:57 36.3 65 16 155/50 (85) 94 Room Air Physical Exam General Appearance: WD/WN, no apparent distress Eyes: normal inspection, EOMI, sclerae normal Neck: supple, no adenopathy, no JVD, trachea midline Respiratory/Chest: chest non-tender, lungs clear, no respiratory distress, no accessory muscle use, + decreased breath sounds (right base) Cardiovascular: regular rate, rhythm, no edema, no gallop, no JVD, no murmur, + pertinent finding (artificial valve sound) Abdomen: normal bowel sounds, non tender, soft, no organomegaly Extremities: normal range of motion, non-tender, normal inspection, no pedal edema, no calf tenderness 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, alert, normal mood/affect, oriented x 3, + motor weakness (generalized) Skin: normal color, warm/dry, no rash Laboratory Results Last 24 Hours Test 12/06/16 12:58 12/06/16 16:21 12/06/16 20:20 12/07/16 07:04 Bedside Glucose 237 mg/dl 168 mg/dl 195 mg/dl Prothrombin Time 33.4 SECONDS Prothromb Time International Ratio 3.0 Creatinine 1.90 mg/dl Est Creatinine Clear Calc Drug Dose 23.9 ml/min Estimated GFR () 29.6 Estimated GFR (Non- 25.5 Test 12/07/16 07:30 Bedside Glucose 133 mg/dl Assessment and Plan - Acute hypoxic respiratory failure: suspect it is due to some mild acute diastolic HF likely triggered by blood transfusion even though she did receive Lasix suspected right lower lobe pneumonia based on CXR findings at time of admission no fever, normal WBC, normal procalcitonin, no productive cough PA and lateral CXR on 12/06 showed right pleural effusion, persistent opacities in right base, less edema patient experiencing vomiting while on antibiotics discussed observing her clinical course off the antibiotics and she agreed with this plan continue to treat diastolic HF and try to wean off oxygen patient refused therapy evaluations - Acute on chronic diastolic HF: continue Lasix, likely triggered by blood transfusion - Anemia, chronic blood loss: Hb dropped to 8.5 from 9.2, no signs of active bleeding, follow - CKD stage 4: stable, good UO patient will return home once medically stable social issues with and possible placement for him will have to be worked through as outpatient Continued [facility] stay due to: multiple IV medications needed Discharge planning: home
[2016-12-07] MEDS: ONDANSETRON INJ 2 MG/ML 2 ML VIAL IV PRN (10:28)
[2016-12-07 15:48] VITALS: BP 140/57; PULSE 78; TEMP 36.9; O2SAT 97
[2016-12-07] MEDS ORDERED: WARFARIN SOD 2 MG TAB PO SCH (16:00)
--- NOTE | 2016-12-07 16:20 | Progress Note ---
Subjective Date of Service: Dec 07, 2016. Subjective Pt evaluation today including: conversation w/ patient, physical exam, chart review, lab review, review of studies, review of inpatient medication list Pain: no pain PO Intake: good oral intake Voiding: no voiding problems, no incontinence pt reports diarrhea, and nausea, but no vomiting. Pt states her breathing improved and denies cp, dizziness and palpitation. Pt does not have fever, chills, rigors and sweats. Problem List Medical Problems: (1) Arm pain, left Status: Acute (2) Back pain Status: Acute (3) Cat bite of right lower leg with infection Status: Acute (4) Cellulitis Status: Acute (5) COPD exacerbation Status: Acute (6) Dehydration Status: Acute (7) Fever Status: Acute (8) Fracture of right distal radius Status: Acute (9) GI bleed Status: Acute (10) GI bleed Status: Acute (11) Guaiac + stool Status: Acute (12) Left hip pain Status: Acute (13) Medication adverse effect Status: Acute (14) Pleural effusion Status: Acute (15) PNA (pneumonia) Status: Acute (16) Rapid atrial fibrillation Status: Acute (17) Respiratory distress Status: Acute (18) Right arm fracture Status: Acute (19) Superficial phlebitis Status: Acute (20) Supratherapeutic INR Status: Acute Review of Systems Constitutional: No fever, No chills, No weight loss, No weakness Respiratory: No cough, No sputum, No shortness of breath, No dyspnea on exertion Cardiac: No chest pain, No edema Abdomen: + nausea, + diarrhea, No pain, No vomiting Heme: No abnormal bleeding/bruising Endo: No fatigue Objective Vital Signs Date Time Temp Pulse Resp B/P (MAP) Pulse Ox O2 Delivery O2 Flow Rate FiO2 12/07/16 15:48 36.9 78 18 140/57 (84) 97 Nasal Cannula 2.0 12/07/16 08:00 91 Room Air 12/07/16 07:45 36.9 74 16 129/53 (78) 91 Room Air 12/07/16 05:16 36.7 72 17 91/51 (64) 96 Nasal Cannula 2.5 12/07/16 00:33 36.4 84 18 125/63 (83) 93 Nasal Cannula 2.0 12/07/16 00:00 Nasal Cannula 2.0 12/06/16 16:57 66 Physical Exam General Appearance: WD/WN, no apparent distress Eyes: EOMI, sclerae normal Neck: supple Respiratory/Chest: lungs clear, normal breath sounds, no respiratory distress Cardiovascular: regular rate, rhythm, no edema Abdomen: normal bowel sounds, non tender, soft Neurologic/Psychiatric: alert, normal mood/affect, oriented x 3 Skin: no rash Lymphatic: no adenopathy Laboratory Results Last 24 Hours Test 12/06/16 16:21 12/06/16 20:20 12/07/16 07:04 12/07/16 07:30 Bedside Glucose 168 mg/dl 195 mg/dl 133 mg/dl Prothrombin Time 33.4 SECONDS Prothromb Time International Ratio 3.0 Creatinine 1.90 mg/dl Est Creatinine Clear Calc Drug Dose 23.9 ml/min Estimated GFR () 29.6 Estimated GFR (Non- 25.5 Test 12/07/16 11:27 Bedside Glucose 188 mg/dl Assessment and Plan - Acute hypoxic respiratory failure: possible secondary mild acute diastolic HF likely triggered by blood transfusion even though she did receive Lasix suspected right lower lobe pneumonia based on CXR findings at time of admission no fever, normal WBC, normal procalcitonin, no productive cough PA and lateral CXR on 12/06 showed right pleural effusion, persistent opacities in right base, less edema patient experiencing vomiting while on antibiotics discussed observing her clinical course off the antibiotics and she agreed with this plan continue to treat diastolic HF.and try to wean off oxygen 12/07 pt off oxygen and her O2 sat at rest is 91-92%. Pt may require 2 step test to determine the need of home oxygen. If positive will ask for O2 arrangement before discharge. - Nausea w/o vomiting and diarrhea. If continue will do stool for c-diff and cultures and advise nurse to give Zofran. - Acute on chronic diastolic HF: continue Lasix, likely triggered by blood transfusion - Anemia, chronic blood loss: Hb dropped to 8.5 from 9.2, no signs of active bleeding, follow - CKD stage 4: stable, good UO patient will return home once medically stable social issues with and possible placement for him will have to be worked through as outpatient Continued [facility] stay due to: multiple IV medications needed Discharge planning: home
[2016-12-07] MEDS: DIGOXIN 0.125 MG TAB PO SCH (16:41)
[2016-12-07] MEDS: ACETAMINOPHEN 325 MG TAB PO PRN (16:45)
[2016-12-07] MEDS: DIAZEPAM 5MG TAB PO SCH (22:16)
[2016-12-07] MEDS: EZETIMIBE 10MG TAB PO SCH (22:17)
[2016-12-08 00:14] VITALS: BP 107/61; PULSE 90; TEMP 36.7; O2SAT 97
[2016-12-08] MEDS: ONDANSETRON INJ 2 MG/ML 2 ML VIAL IV PRN (02:42)
[2016-12-08 07:03] LABS: INR 3.4 (0.9-1.1); PROTHROMBIN TIME (PATIENT) 38.8 SECONDS (9.0-12.0)
[2016-12-08] MEDS: LEVOTHYROXINE 175 MCG TAB PO SCH (07:20)
[2016-12-08 07:30] VITALS: BP 136/65; PULSE 68; TEMP 36.6; O2SAT 98
[2016-12-08] MEDS: METOPROLOL SUCC 50MG EXT REL TAB PO SCH (07:59)
[2016-12-08] MEDS: SPIRONOLACTONE 25 MG TAB PO SCH (07:59)
[2016-12-08] MEDS: GEMFIBROZIL 600 MG TAB PO SCH (07:59)
[2016-12-08] MEDS: MONTELUKAST SOD 10 MG TAB PO SCH (07:59)
[2016-12-08] MEDS: FUROSEMIDE 40 MG TAB PO SCH (08:00)
[2016-12-08] MEDS: PYRIDOXINE HCL 50 MG TAB PO SCH (08:00)
[2016-12-08] MEDS: ISOSORBIDE MONONITRATE 30 MG TABCR PO SCH (08:01)
[2016-12-08] MEDS: FEXOFENADINE HCL 180 MG TAB PO SCH (08:01)
[2016-12-08] MEDS: INSULIN ASPART 100 UNITS/ML 3 ML PEN SC SCH (08:49)
[2016-12-08] MEDS: INSULIN GLARGINE SOLOSTAR 100 UNITS/ML 3 ML PEN SC SCH (08:50)
--- NOTE | 2016-12-08 09:04 | Discharge Instructions ---
Discharge Instructions Date of Service Dec 08, 2016. Admission Reason for Admission: Pneumonia Discharge Discharge Diagnosis / Problem: Acute hypoxic respiratory failure Discharge Goals Goal(s): Decrease discomfort, Improve function, Increase independence, Improve disease control Activity Recommendations Activity Limitations: resume your previous activity . Current Hospital Diet Patient's current hospital diet: AHA Diet (Heart Healthy) Discharge Diet Recommended Diet: Diabetes Type 2 Diet Procedures Procedures Performed: none Pending Studies Studies pending at discharge: no Medical Emergencies . Who to Call and When: Medical Emergencies: If at any time you feel your situation is an emergency, please call 911 immediately. . Non-Emergent Contact Non-Emergency issues call your: Primary Care Provider Call Non-Emergent contact if: temperature is above 100.5, your pain is not controlled . . "Provider Documentation" section prepared by Jasper Myers . VTE Core Measure Inpt VTE Proph given/why not?: Warfarin (Coumadin)
--- NOTE | 2016-12-08 09:16 | Discharge Summary ---
Discharge Summary Date of Service Dec 08, 2016. Discharge Summary Admission Date: Dec 04, 2016 at 22:21 Discharge Date: Dec 08, 2016 Discharge Disposition: Home Principal Diagnosis: Acute hypoxic respiratory failure Immunizations: Have You Had Influenza Vaccine: Yes Influenza Vaccine Date: Dec 23, 2010 History of Tetanus Vaccine?: utd History of Pneumococcal: Yes History of Hepatitis B Vaccine: No Consultations: none Medication Reconciliation Continued Medications: Cholecalciferol (Vitamin D3) 1,000 Unit Cap 1000 INTER.UNIT PO TID Cyanocobalamin (Vitamin B-12) 1,000 Mcg Tab 1000 MCG PO QAM Diazepam (Valium) 5 Mg Tab 5 MG PO HS Diclofenac Sodium (Topical) (Diclofenac Sodium) 1 % Gel 1 APPLN TOP QID PRN for Pain-Affected Joints Digoxin (Digoxin) 0.125 Mg Tab 0.125 MG PO QAM Ezetimibe (Ezetimibe) 10 Mg Tab 10 MG PO HS Fexofenadine Hcl (Vickie) 180 Mg Tab 180 MG PO QAM, TAB Furosemide (Furosemide) 40 Mg Tab 40 MG PO QAM Gemfibrozil (Gemfibrozil) 600 Mg Tab 600 MG PO BID TAKE THIS MEDICATION 30 MINUTES BEFORE BREAKFAST AND BEDTIME Hydralazine Hcl (Apresoline) 25 Mg Tab 25 MG PO BID Insulin Aspart (Novolog) 100 Units/Ml Inj 1 DOSE SC ACHS PRN for As Needed COVERAGE DIRECTED BY SLIDING SCALE Insulin Glargine (Lantus Solostar) 100 Unit/Ml Inj 15 UNIT SC BID for 15 Days Isosorbide Mononitrate (Isosorbide Mononitrate ER) 30 Mg Tabcr 30 MG PO QAM Levothyroxine Sodium (Synthroid) 175 Mcg Tab 175 MCG PO DAILY, TAB Metoprolol Succinate (Metoprolol Succinate ER) 50 Mg Tabcr 50 MG PO QAM, #90 Misc Natural Products (Osteo Bi-Flex Joint Shiel) 1 Tab Tab 1 TAB PO BID Montelukast Sod (Montelukast Sodium) 10 Mg Tab 10 MG PO QAM Oxycodone HCl (Oxycodone HCl) 5 Mg Tab 5 MG PO DAILY PRN for Pain, #60 Pyridoxine (Vitamin B6) 100 Mg Tab 100 MG PO QAM Spironolactone (Aldactone) 50 Mg Tab 50 MG PO DAILY Trospium Chloride (Trospium Chloride) 20 Mg Tab 20 MG PO DAILY Warfarin Sod (Jantoven) 4 Mg Tab 2 MG PO 2XWK, TAB TUES/SAT Warfarin Sodium (Coumadin) 4 Mg Tab 4 MG PO 5XWK, TAB Discharge Exam - Acute hypoxic respiratory failure: possible secondary mild acute diastolic HF in a 76 year old pleasant female with past medical history of type 2 Dm, CKD, Anemia, and Afib.completely resolved likely triggered by blood transfusion even though she did receive Lasix, suspected right lower lobe pneumonia based on CXR findings at time of admission no fever, normal WBC, normal procalcitonin, no productive cough PA and lateral CXR on 12/06 showed right pleural effusion, persistent opacities in right base, less edema patient experiencing vomiting while on antibiotics discussed observing her clinical course off the antibiotics and she agreed with this plan continue to treat diastolic HF.and try to wean off oxygen 12/07 pt off oxygen and her O2 sat at rest is 91-92%. Pt may require 2 step test to determine the need of home oxygen. If positive will ask for O2 arrangement before discharge. 12/08 pt is doing very well and ready to be discharge, vitals and labs are stable. - Nausea w/o vomiting and diarrhea. If continue will do stool for c-diff and cultures, the next day pt nausea and diarrhea resolved completely. - Acute on chronic diastolic HF: continue Lasix, likely triggered by blood transfusion - Anemia, chronic blood loss: Hb dropped to 8.5 from 9.2, no signs of active bleeding, follow with pcp. - CKD stage 4: stable, good UO, base line creatinine is~ 2.0 Review of Systems: Constitutional: No fever, No chills, No weight loss Eyes: No worsening of vision Cardiovascular: No chest pain, No orthopnea, No edema, No claudication, No palpitations Abdomen: No pain, No nausea, No vomiting, No diarrhea, No constipation Musculoskeletal: No joint pain Neurologic: No memory loss, No numbness/tingling, No balance problems Endocrine: No fatigue Hematologic / Lymphatic: No abnormal bleeding/bruising Integumentary: No rash Physical Exam: General Appearance: WD/WN, no apparent distress Eyes: normal inspection, EOMI Neck: supple, no adenopathy, no JVD Respiratory/Chest: chest non-tender, lungs clear, normal breath sounds, no respiratory distress, no accessory muscle use Cardiovascular: regular rate, rhythm, no edema, no gallop, no murmur Abdomen / GI: normal bowel sounds, non tender, soft Extremities: normal inspection, no calf tenderness, no pedal edema Neurologic/Psychiatric: no motor/sensory deficits, alert, normal mood/affect , oriented x 3 Skin: normal color, no rash Lymphatic: no adenopathy Hospital Course - Acute hypoxic respiratory failure: possible secondary mild acute diastolic HF likely triggered by blood transfusion even though she did receive Lasix suspected right lower lobe pneumonia based on CXR findings at time of admission no fever, normal WBC, normal procalcitonin, no productive cough PA and lateral CXR on 12/06 showed right pleural effusion, persistent opacities in right base, less edema patient experiencing vomiting while on antibiotics discussed observing her clinical course off the antibiotics and she agreed with this plan continue to treat diastolic HF.and try to wean off oxygen 12/07 pt off oxygen and her O2 sat at rest is 91-92%. Pt may require 2 step test to determine the need of home oxygen. If positive will ask for O2 arrangement before discharge. - Nausea w/o vomiting and diarrhea. If continue will do stool for c-diff and cultures and advise nurse to give Zofran. - Acute on chronic diastolic HF: continue Lasix, likely triggered by blood transfusion - Anemia, chronic blood loss: Hb dropped to 8.5 from 9.2, no signs of active bleeding, follow - CKD stage 4: stable, good UO patient will return home once medically stable social issues with and possible placement for him will have to be worked through as outpatient Total Time Spent: Greater than 30 minutes This includes examination of the patient, discharge planning, medication reconciliation, and communication with other providers. Discharge Instructions Please refer to the electronic Patient Visit Report (Discharge Instructions) for additional information. Follow-Up follow up with in 2 week Additional Copies To Phoenix Klein III, CRNP
[2016-12-08 09:43] VITALS: BP 136/65; PULSE 68; TEMP 36.6; O2SAT 98
== END 2016-12-08 12:10 | disposition home or self-care (01) | DRG 291 ==
LOC: C.EDB 19:05 → C.MED 22:21 → ENRESERV 22:31
PROVIDERS: ADMIT Hospitalist; ATTEND Internal Medicine
DX: I50.33 Acute on chronic diastolic (congestive) heart failure (principal); J18.9 Pneumonia, unspecified organism; J96.01 Acute respiratory failure with hypoxia; N18.4 Chronic kidney disease, stage 4 (severe); E11.9 Type 2 diabetes mellitus without complications; I48.91 Unspecified atrial fibrillation; J44.9 Chronic obstructive pulmonary disease, unspecified; D50.0 Iron deficiency anemia secondary to blood loss (chronic); R19.7 Diarrhea, unspecified; R11.0 Nausea; Z79.01 Long term (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 of anticoagulants; Z79.4 Long term (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 of insulin; Z79.899 Other long term (current) drug therapy; Z87.891 Personal history of nicotine dependence; Z86.73 Personal history of transient ischemic attack (TIA), and cerebral infarction without residual deficits; Z95.2 Presence of prosthetic heart valve

== ENCOUNTER 2016-12-11 11:10 | Emergency (ER) | payer BC, OTHER ==
[~2016-12-11] VITALS: Ht 160 cm; Wt 75.0 kg
[~2016-12-11 11:10] MED LIST changes: -DOXY100C2 PO
[2016-12-11 11:17] VITALS: TEMP 37.1; Ht 160 cm; Wt 75.0 kg
[2016-12-11] MEDS ORDERED: ALBUT/IPRATROP 3MG/0.5MG NEB 3 ML VIAL INH STA (12:34)
[2016-12-11 12:37] VITALS: O2SAT 93
[2016-12-11 13:10] LABS: BASO % 0.4 %; BASO ABS # 0.02 K/uL (0-0.2); EOS % 1.5 %; HEMATOCRIT 27.4 % (37-47); IG% 0.2 %; LYMPH % 10.3 %; LYMPH ABS # 0.47 K/uL (1.2-3.4); MEAN CELL VOLUME 85.9 fL (80-100); MEAN CORPUSCULAR HEMOGLOBIN 26.6 pg (25-34); MEAN PLATELET VOLUME 9.9 fL (7.4-10.4); MONO % 19.1 %; NEUT % 68.5 %; PLATELET COUNT 242 K/uL (130-400); RED BLOOD COUNT 3.19 M/uL (4.2-5.4); WHITE BLOOD COUNT 4.56 K/uL (4.8-10.8)
[2016-12-11 13:14] LABS: PARTIAL THROMBOPLASTIN RATIO 1.5; PROTHROMBIN TIME (PATIENT) 46.9 SECONDS (9.0-12.0)
--- NOTE | 2016-12-11 13:14 | DIAGNOSTIC IMAGING REPORT ---
CHEST ONE VIEW PORTABLE HISTORY: 76 years-old Female Evaluate Fever/Sepsis acute fever with sepsis. Follow-up study. COMPARISON: Chest radiograph 12/06/2016, CTA chest 07/22/2016. TECHNIQUE: Portable upright AP view of the chest FINDINGS: Cardiac silhouette is again moderately enlarged. There is evidence of prior median sternotomy and mitral valve replacement. Left pectoral pacer is noted with single lead intact over the region of the right ventricle. There is no pneumothorax. Linear subsegmental left basilar opacity is again noted suggesting atelectasis. Pulmonary vascular congestion is noted with increasing background interstitial coarsening. Small right pleural effusion is noted with increasing right basilar opacities. Bones are grossly intact. IMPRESSION: 1. Cardiomegaly with increasing mild pulmonary edema. 2. Small right pleural effusion with increasing right basilar opacity suggesting atelectasis and/or pneumonia. 3. Prior median sternotomy with prosthetic mitral valve noted. The above report was generated using voice recognition software. It may contain grammatical, syntax or spelling errors. Electronically signed by: Anand Hermosillo M.D. 12/11/2016 1:12 PM Dictated Date/Time: 12/11/2016 1:09 PM
[2016-12-11 13:17] LABS: INR 4.1 (0.9-1.1)
[2016-12-11 13:22] LABS: BUN/CREATININE RATIO 30.2 (10-20); CALCIUM 9.2 mg/dl (8.5-10.1); CREATININE 1.9 mg/dl (0.60-1.20); POTASSIUM 4.2 mmol/L (3.5-5.1)
[2016-12-11 13:29] LABS: CKMB/CK RATIO 3.5 (0-3.0)
[2016-12-11 13:34] LABS: ANISOCYTOSIS PRESENT; COMPLETE YES; HYPERSEGMENTED POLYS 1+; HYPOCHROMIA PRESENT
[2016-12-11 14:31] VITALS: BP 131/67
[2016-12-11 14:45] VITALS: PULSE 84; O2SAT 92
--- NOTE | 2016-12-11 14:55 | EMERGENCY ROOM VISIT NOTE ---
History Report prepared by Dianne: Remberto Caicedo Under the Supervision of: Dr. Angel Jean D.O. First contact with patient: 12:25 Chief Complaint: SHORTNESS OF BREATH Nursing Triage Summary: Pt arrives to room via w/c. [facility]. Pt found to be very sob. Pt reports d/c'd from [facility] on 12/08/16. Pt reports issues with sob, abd distension, blood transfusions, chf. History of Present Illness The patient is a 76 year old female who presents to the Emergency Room with complaints of worsening shortness of breath for the past week starting after getting a blood transfusion. The patient states that she was recently admitted for CHF and discharged three days ago, and after getting blood she has been short of breath. She states that she has had chest x-rays done, and the lungs were clear. She has a history of a mechanical heart valve. The patient additionally states that she has been having abdominal pain and leg pain. The patient was at the Coumadin clinic today, and she was short of breath after just walking across the parking lot, and they told her to come in for evaluation. She states that she does not use breathing treatments at home, and she has a history of pneumonia. She states that she tried using an inhaler, and it did not help very much. Source of History: patient Onset: a week ago Position: other (global) Quality: other (shortness of breath) Timing: worsening Associated Symptoms: + abdominal pain Review of Systems See HPI for pertinent positives & negatives. A total of 10 systems reviewed and were otherwise negative. Past Medical & Surgical Medical Problems: (1) Acute kidney injury (2) Acute pancreatitis (3) Acute respiratory failure with hypoxia (4) Acute systolic congestive heart failure (5) Acute urinary tract infection (6) Asthma (7) Atrial fibrillation (8) Cardiac pacemaker procedure (9) CKD (chronic kidney disease) (10) Contrast dye induced nephropathy (11) Deep venous thrombosis (12) Diabetes mellitus (13) History of mitral valve replacement with mechanical valve (14) PERSONAL HX OF TIA,& CEREBRAL INFARCTION W/OUT RES DEFICITS (15) Pneumonia (16) Replacement of mitral valve with mechanical prosthesis (17) Sepsis Surgical Problems: (1) Cholecystectomy (2) Hysterectomy Family History Diabetes mellitus Heart disease Hypertension Social History Smoking Status: Former Smoker Alcohol Use: none Drug Use: none Marital Status: Housing Status: lives with family Occupation Status: retired Current/Historical Medications Scheduled Cholecalciferol (Vitamin D3), 1,000 INTER.UNIT PO TID Cyanocobalamin (Vitamin B-12), 1,000 MCG PO QAM Diazepam (Valium), 5 MG PO HS Digoxin (Digoxin), 0.125 MG PO QAM Ezetimibe (Ezetimibe), 10 MG PO HS Fexofenadine Hcl (Vickie), 180 MG PO QAM Furosemide (Furosemide), 40 MG PO QAM Gemfibrozil (Gemfibrozil), 600 MG PO BID Hydralazine Hcl (Apresoline), 25 MG PO BID Insulin Glargine (Lantus Solostar), 15 UNIT SC BID Isosorbide Mononitrate (Isosorbide Mononitrate ER), 30 MG PO QAM Levothyroxine Sodium (Synthroid), 175 MCG PO DAILY Metoprolol Succinate (Metoprolol Succinate ER), 50 MG PO QAM Misc Natural Products (Osteo Bi-Flex Joint Shiel), 1 TAB PO BID Montelukast Sod (Montelukast Sodium), 10 MG PO QAM Pyridoxine (Vitamin B6), 100 MG PO QAM Spironolactone (Aldactone), 50 MG PO DAILY Trospium Chloride (Trospium Chloride), 20 MG PO DAILY Warfarin Sod (Jantoven), 2 MG PO 2XWK Warfarin Sodium (Coumadin), 4 MG PO 5XWK Scheduled PRN Diclofenac Sodium (Topical) (Diclofenac Sodium), 1 APPLN TOP QID PRN for Pain- Affected Joints Insulin Aspart (Novolog), 1 DOSE SC ACHS PRN for As Needed Oxycodone HCl (Oxycodone HCl), 5 MG PO DAILY PRN for Pain Allergies Coded Allergies: Penicillins (Verified Allergy, Severe, anaphylaxis 30yrs ago, also broke out with sores, 08/17/16) NOTE: Timentin 05/2003 tolerated without problem Doxycycline (Verified Allergy, Intermediate, GI SYMPTOMS, 12/04/16) Diltiazem (Verified Allergy, Unknown, unknown, 08/17/16) Levofloxacin (Verified Allergy, Unknown, UNKNOWN, 08/17/16) Moxifloxacin (Verified Allergy, Unknown, UNKNOWN, 08/17/16) Aspirin (Verified Adverse Reaction, Intermediate, increased bleeding (on warfarin), 08/17/16) Atorvastatin (Verified Adverse Reaction, Unknown, & Crestor = muscle aches /pains, 08/17/16) NSAIDs (Verified Adverse Reaction, Unknown, AVOID PER DR. HICKS - [id number] , 08/17/16) Nortriptyline (Verified Adverse Reaction, Unknown, choking on food, 08/17/16 ) Quinidine (Verified Adverse Reaction, Unknown, flu-like symptoms, 08/17/16) Sulfamethoxazole w/Trimethoprim (Verified Adverse Reaction, Unknown, CONFUSION, 08/17/16) Physical Exam Vital Signs Date Time Temp Pulse Resp B/P (MAP) Pulse Ox O2 Delivery O2 Flow Rate FiO2 12/11/16 14:45 84 20 92 12/11/16 14:31 131/67 12/11/16 14:15 78 25 92 12/11/16 14:10 77 24 93 12/11/16 14:01 136/64 12/11/16 13:40 84 12/11/16 13:40 83 25 94 12/11/16 13:34 93 22 155/87 93 Room Air 12/11/16 13:33 155/87 12/11/16 13:10 72 17 100 12/11/16 12:40 90 27 93 12/11/16 12:37 93 Room Air 12/11/16 12:35 158/73 12/11/16 12:34 94 22 158/73 93 Room Air 12/11/16 12:18 104 12/11/16 11:40 88 29 12/11/16 11:31 Room Air 12/11/16 11:17 37.1 86 24 160/59 96 Room Air 12/11/16 11:13 Room Air 12/11/16 11:11 160/59 Physical Exam CONSTITUTIONAL/VITAL SIGNS: Reviewed / noted above. GENERAL: Non-toxic in appearance. INTEGUMENTARY: Warm, dry, and [place]. HEAD: Normocephalic. EYES: without scleral icterus or trauma. ENT/OROPHARYNX: clear and moist. LYMPHADENOPATHY/NECK: Is supple without lymphadenopathy or meningismus. RESPIRATORY: Lungs clear and equal. CARDIOVASCULAR: Regular rate and rhythm. Auditory click noted from artificial heart valve noted. CHRISTEL GI/ABDOMEN: Soft and nontender. No organomegaly or pulsatile mass. No rebound or guarding. Normal bowel sounds. EXTREMITIES: Warm and well perfused. BACK: No CVA tenderness. NEUROLOGICAL: Intact without focal deficits. PSYCHIATRIC: normal affect. MUSCULOSKELETAL: Normally developed with good muscle tone. Medical Decision & Procedures ER Provider Diagnostic Interpretation: Radiology results as stated below per my review and radiologist interpretation: CHEST ONE VIEW PORTABLE HISTORY: 76 years-old Female Evaluate Fever/Sepsis acute fever with sepsis. Follow-up study. COMPARISON: Chest radiograph 12/06/2016, CTA chest 07/22/2016. TECHNIQUE: Portable upright AP view of the chest FINDINGS: Cardiac silhouette is again moderately enlarged. There is evidence of prior median sternotomy and mitral valve replacement. Left pectoral pacer is noted with single lead intact over the region of the right ventricle. There is no pneumothorax. Linear subsegmental left basilar opacity is again noted suggesting atelectasis. Pulmonary vascular congestion is noted with increasing background interstitial coarsening. Small right pleural effusion is noted with increasing right basilar opacities. Bones are grossly intact. IMPRESSION: 1. Cardiomegaly with increasing mild pulmonary edema. 2. Small right pleural effusion with increasing right basilar opacity suggesting atelectasis and/or pneumonia. 3. Prior median sternotomy with prosthetic mitral valve noted. The above report was generated using voice recognition software. It may contain grammatical, syntax or spelling errors. Electronically signed by: Anand Hermosillo M.D. 12/11/2016 1:12 PM Dictated Date/Time: 12/11/2016 1:09 PM Laboratory Results 12/11/16 11:30 Red Blood Count 3.19, Mean Corpuscular Volume 85.9, Mean Corpuscular Hemoglobin 26.6, Mean Corpuscular Hemoglobin Concent 31.0, Mean Platelet Volume 9.9, Neutrophils (%) (Auto) 68.5, Lymphocytes (%) (Auto) 10.3, Monocytes (%) (Auto) 19.1, Eosinophils (%) (Auto) 1.5, Basophils (%) (Auto) 0.4, Neutrophils # (Auto ) 3.12, Lymphocytes # (Auto) 0.47, Monocytes # (Auto) 0.87, Eosinophils # (Auto ) 0.07, Basophils # (Auto) 0.02 12/11/16 11:30 Test 12/11/16 11:30 12/11/16 11:53 12/11/16 12:32 White Blood Count 4.56 K/uL (4.8-10.8) Red Blood Count 3.19 M/uL (4.2-5.4) Hemoglobin 8.5 g/dL (12.0-16.0) Hematocrit 27.4 % (37-47) Mean Corpuscular Volume 85.9 fL (80-100) Mean Corpuscular Hemoglobin 26.6 pg (25-34) Mean Corpuscular Hemoglobin Concent 31.0 g/dl (32-36) Platelet Count 242 K/uL (130-400) Mean Platelet Volume 9.9 fL (7.4-10.4) Neutrophils (%) (Auto) 68.5 % Lymphocytes (%) (Auto) 10.3 % Monocytes (%) (Auto) 19.1 % Eosinophils (%) (Auto) 1.5 % Basophils (%) (Auto) 0.4 % Neutrophils # (Auto) 3.12 K/uL (1.4-6.5) Lymphocytes # (Auto) 0.47 K/uL (1.2-3.4) Monocytes # (Auto) 0.87 K/uL (0.11-0.59) Eosinophils # (Auto) 0.07 K/uL (0-0.5) Basophils # (Auto) 0.02 K/uL (0-0.2) RDW Standard Deviation 57.0 fL (36.4-46.3) RDW Coefficient of Variation 17.9 % (11.5-14.5) Immature Granulocyte % (Auto) 0.2 % Immature Granulocyte # (Auto) 0.01 K/uL (0.00-0.02) Hypersegmented Polys 1+ Hypochromasia PRESENT Anisocytosis PRESENT Anion Gap 10.0 mmol/L (3-11) Est Creatinine Clear Calc Drug Dose 25.2 ml/min Estimated GFR () 29.6 Estimated GFR (Non- 25.5 BUN/Creatinine Ratio 30.2 (10-20) Calcium Level 9.2 mg/dl (8.5-10.1) Total Bilirubin 0.5 mg/dl (0.2-1) Direct Bilirubin 0.2 mg/dl (0-0.2) Aspartate Amino Transf (AST/SGOT) 25 U/L (15-37) Alanine Aminotransferase (ALT/SGPT) 22 U/L (12-78) Alkaline Phosphatase 118 U/L (45-117) Total Creatine Kinase 66 U/L (26-192) Creatine Kinase MB 2.3 ng/ml (0.5-3.6) Creatine Kinase MB Ratio 3.5 (0-3.0) Troponin I 0.026 ng/ml (0-0.045) Total Protein 7.2 gm/dl (6.4-8.2) Albumin 3.6 gm/dl (3.4-5.0) Bedside Glucose 204 mg/dl (70-90) Prothrombin Time 46.9 SECONDS (9.0-12.0) Prothromb Time International Ratio 4.1 (0.9-1.1) Activated Partial Thromboplast Time 38.8 SECONDS (21.0-31.0) Partial Thromboplastin Ratio 1.5 Laboratory results as stated above per my review. Medications Administered Medications (Trade) Dose Ordered Sig/Albin Route Start Time Stop Time Status Last Admin Dose Admin Albuterol/ Ipratropium (Duoneb) 3 ml NOW STAT INH 12/11/16 12:34 12/11/16 12:36 DC 12/11/16 12:59 3 ML ECG Indication: SOB/dyspnea Rate (beats per minute): 92 Rhythm: atrial fibrillation Findings: LBBB, no ectopy, other (No acute injury) ED Course 1225: Previous medical records were reviewed. The patient was evaluated in room C4. A complete history and physical examination was performed. 1234: DuoNeb 3ml INH 1433: On reevaluation, the patient is doing well. I discussed the results and findings with the patient. She verbalized agreement of the treatment plan. She was discharged home. Medical Decision the differential was considered includes acute myocardial infarction, acute coronary syndrome, myocarditis, pericarditis, pericardial effusions /tamponade, esophageal perforation, pulmonary embolism, pneumonia, pneumothorax, cardiomyopathy, congestive heart, anemia , COPD/asthma exacerbation. This is a 76-year-old female who presents to the ED with a chief complaint of shortness of breath. The patient states that she was running late for her appointment to get her INR checked and was trying to move faster than she normally does. The patient was short of breath when she arrived and because of her shortness of breath she was sent to the emergency department for evaluation. The patient was discharged from the hospital 3 days ago. She was here for congestive heart failure. She also been on some antibiotics over the course of her ED stay. The patient denies any infectious symptoms. She has not had a fever or cough. She denies any abdominal pains or chest pains at this time. She was treated with a DuoNeb treatment while here and she states that her symptoms did improve with this. The patient's blood work reveals a hemoglobin of 8.5. This is at the patient's baseline. Her BUN is 57 and her creatinine is 1.9. Troponin was negative. A chest x-ray reveals some cardiomegaly and a small right pleural effusion as well as some right base atelectasis versus pneumonia. The patient does not have any clinical symptoms suggesting pneumonia. She was resting comfortably at the time of disposition and discharge. The patient's oxygen saturations have been around 91-93% while here. This is without oxygen. The patient feels comfortable going home. Medication Reconcilliation Current Medication List: was personally reviewed by me Blood Pressure Screening Patient's blood pressure: Normal blood pressure Impression Primary Impression: Chronic obstructive pulmonary disease Scribe Attestation The scribe's documentation has been prepared under my direction and personally reviewed by me in its entirety. I confirm that the note above accurately reflects all work, treatment, procedures, and medical decision making performed by me. Departure Information Dispostion Home / Self-Care Referrals Phoenix Klein III, CRNP (PCP) Forms HOME CARE DOCUMENTATION FORM, IMPORTANT VISIT INFORMATION Patient Instructions My [facility] [address] Additional Instructions Follow-up with your doctor for further care and evaluation in 1-2 days. Return to the emergency department for worsening or new symptoms or any concerns. You have been examined and treated today on an emergency basis only. This is not a substitute for, or an effort to provide, complete comprehensive medical care. It is impossible to recognize and treat all injuries or illnesses in a single emergency department visit. It is therefore important that you follow up closely with your doctor. Call as soon as possible for an appointment.
== END 2016-12-11 15:10 | disposition home or self-care (01) ==
LOC: EDBD 11:10 → C.EDC 11:11
DX: J44.9 Chronic obstructive pulmonary disease, unspecified (principal); E11.9 Type 2 diabetes mellitus without complications; I48.91 Unspecified atrial fibrillation; N18.9 Chronic kidney disease, unspecified; J45.909 Unspecified asthma, uncomplicated; I34.1 Nonrheumatic mitral (valve) prolapse; I50.22 Chronic systolic (congestive) heart failure; K86.1 Other chronic pancreatitis; Z86.73 Personal history of transient ischemic attack (TIA), and cerebral infarction without residual deficits; Z86.718 Personal history of other venous thrombosis and embolism; Z87.440 Personal history of urinary (tract) infections; Z90.49 Acquired absence of other specified parts of digestive tract; Z90.710 Acquired absence of both cervix and uterus; Z87.891 Personal history of nicotine dependence; Z79.4 Long term (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 of insulin; Z79.01 Long term (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 of anticoagulants; Z88.0 Allergy status to penicillin; Z88.2 Allergy status to sulfonamides; Z88.8 Allergy status to other drugs, medicaments and biological substances; Z83.3 Family history of diabetes mellitus; Z82.49 Family history of ischemic heart disease and other diseases of the circulatory system

== ENCOUNTER → 2016-12-23 | Outpatient (CLI) | payer BC ==
[~2016-12-23] MED LIST changes: +INHALER INH; +INSDGI SC; -WARF4TAB8 PO
--- NOTE | 2016-12-23 12:10 | DIAGNOSTIC IMAGING REPORT ---
R ELBOW MIN 3 VIEWS ROUTINE CLINICAL HISTORY: Right arm pain. COMPARISON: Right elbow radiographs July 27, 2016. FINDINGS: Alignment of the right elbow is anatomic. Soft tissue swelling is noted. There is no fracture or joint effusion. No osseous lesion is identified. IMPRESSION: 1. No acute fracture or joint effusion of the right elbow 2. Soft tissue swelling of the right elbow. Electronically signed by: Randy Melton M.D. 12/23/2016 12:09 PM Dictated Date/Time: 12/23/2016 12:08 PM
--- NOTE | 2016-12-23 12:15 | DIAGNOSTIC IMAGING REPORT ---
R SHOULDER MIN 2 VIEWS ROUTINE CLINICAL HISTORY: Right arm pain. COMPARISON: Chest CT July 2016 and right shoulder radiographs December 10, 2011. FINDINGS: A right pleural effusion persists. A left-sided subclavian is partially imaged. Alignment of the right shoulder is anatomic. No fracture or suspicious lesion is lesion is identified. Juxtacortical lucency within the proximal medial shaft of the right humerus has benign imaging characteristics. There is moderate AC joint arthrosis. There is mild glenohumeral joint arthrosis. IMPRESSION: 1. No acute fracture or dislocation of the right shoulder. 2. Persistent right pleural effusion and associated right basilar opacity which could reflect atelectasis or consolidation. 3. Moderate osteoarthritis of the right acromioclavicular joint and mild glenohumeral joint osteoarthritis. Electronically signed by: Randy Melton M.D. 12/23/2016 12:14 PM Dictated Date/Time: 12/23/2016 12:09 PM
== END | disposition home or self-care (01) ==
LOC: C.RAD1850 11:41
PROVIDERS: ATTEND Nurse Practitioner Family
DX: M79.603 Pain in arm, unspecified (principal); M79.9 Soft tissue disorder, unspecified; J90 Pleural effusion, not elsewhere classified; M19.011 Primary osteoarthritis, right shoulder

== ENCOUNTER → 2016-12-25 | Outpatient (CLI) | payer BC ==
[2016-12-25 14:41] LABS: BASO % 0.4 %; BASO ABS # 0.03 K/uL (0-0.2); COMPLETE YES; EOS % 1.4 %; HEMATOCRIT 31.1 % (37-47); IG% 0.1 %; LYMPH % 8.5 %; MEAN CELL VOLUME 83.8 fL (80-100); MEAN CORPUSCULAR HEMOGLOBIN 25.6 pg (25-34); MEAN CORPUSCULAR HGB CONC 30.5 g/dl (32-36); MEAN PLATELET VOLUME 10.4 fL (7.4-10.4); MONO % 7.7 %; NEUT % 81.9 %; PLATELET COUNT 222 K/uL (130-400); RED BLOOD COUNT 3.71 M/uL (4.2-5.4)
[2016-12-25 15:15] LABS: ALB/GLOB RATIO 1.1 (0.9-2); ALKALINE PHOSPHATASE 86 U/L (45-117); ALT/SGPT 29 U/L (12-78); AST/SGOT 24 U/L (15-37); BLOOD UREA NITROGEN 56 mg/dl (7-18); BUN/CREATININE RATIO 31.3 (10-20); CALCIUM 9.3 mg/dl (8.5-10.1); CARBON DIOXIDE 25 mmol/L (21-32); CHLORIDE 103 mmol/L (98-107); GLUCOSE 247 mg/dl (70-99); POTASSIUM 4.2 mmol/L (3.5-5.1); SODIUM 138 mmol/L (136-145)
== END | disposition home or self-care (01) ==
LOC: C.LAB1850 13:17
PROVIDERS: ATTEND Nurse Practitioner Family
DX: I50.9 Heart failure, unspecified (principal)

== ENCOUNTER 2016-12-26 23:05 | Emergency (ER) | payer BC ==
[~2016-12-26] VITALS: Ht 160 cm; Wt 75.2 kg
[~2016-12-26 23:05] MED LIST changes: -INHALER INH; -INSDGI SC
[2016-12-26 23:16] VITALS: TEMP 36.8; Ht 160 cm; Wt 75.2 kg
[2016-12-26] MEDS ORDERED: LORAZEPAM 0.5 MG TAB SL STA (23:36)
[2016-12-26 23:37] VITALS: O2SAT 98
[2016-12-26 23:47] LABS: BASO % 0.4 %; BASO ABS # 0.03 K/uL (0-0.2); COMPLETE YES; EOS % 3.8 %; HEMATOCRIT 31.7 % (37-47); IG% 0.3 %; LYMPH ABS # 1.34 K/uL (1.2-3.4); MEAN CELL VOLUME 83.6 fL (80-100); MEAN CORPUSCULAR HEMOGLOBIN 25.3 pg (25-34); MEAN CORPUSCULAR HGB CONC 30.3 g/dl (32-36); MEAN PLATELET VOLUME 10.4 fL (7.4-10.4); MONO % 11.8 %; NEUT % 66.7 %; PLATELET COUNT 231 K/uL (130-400); RED BLOOD COUNT 3.79 M/uL (4.2-5.4); WHITE BLOOD COUNT 7.87 K/uL (4.8-10.8)
[2016-12-26] MEDS ORDERED: INSDGI SC (23:52)
[2016-12-26 23:53] LABS: INR 2.9 (0.9-1.1); PARTIAL THROMBOPLASTIN RATIO 1.2; PROTHROMBIN TIME (PATIENT) 32.2 SECONDS (9.0-12.0)
[2016-12-26 23:55] LABS: BUN/CREATININE RATIO 28.7 (10-20); CALCIUM 9.4 mg/dl (8.5-10.1); CREATININE 1.8 mg/dl (0.60-1.20); POTASSIUM 4.1 mmol/L (3.5-5.1)
[2016-12-26] MEDS ORDERED: WARF4TAB PO (23:58)
[2016-12-27] LABS: CKMB/CK RATIO 3.5 (0-3.0)
[2016-12-27] MEDS ORDERED: INHALER INH (00:01)
[2016-12-27 00:05] VITALS: PULSE 88; O2SAT 98
--- NOTE | 2016-12-27 00:12 | EMERGENCY ROOM VISIT NOTE ---
History Report prepared by Dianne: Nicole Franz Under the Supervision of: Dr. Angel Jean D.O. First contact with patient: 23:14 Chief Complaint: SHORTNESS OF BREATH Stated Complaint: SHORT OF BREATH History of Present Illness The patient is a 76 year old female who presents to the Emergency Room with complaints of persistent SOB starting [employer]. The patient has been having left leg and arm numbness for a couple weeks now. Today she started getting SOB and decided to come to the ED. She presents to the ED by EMS. She also complains of nausea. She also states that her hands have been "locking up". She is concerned as she has had stroke in the past. She has been feeling off balance for the past 2 days. 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 Review of Systems See HPI for pertinent positives & negatives. A total of 10 systems reviewed and were otherwise negative. Past Medical & Surgical Medical Problems: (1) Acute kidney injury (2) Acute pancreatitis (3) Acute respiratory failure with hypoxia (4) Acute systolic congestive heart failure (5) Acute urinary tract infection (6) Asthma (7) Atrial fibrillation (8) Cardiac pacemaker procedure (9) CKD (chronic kidney disease) (10) Contrast dye induced nephropathy (11) Deep venous thrombosis (12) Diabetes mellitus (13) History of mitral valve replacement with mechanical valve (14) PERSONAL HX OF TIA,& CEREBRAL INFARCTION W/OUT RES DEFICITS (15) Pneumonia (16) Replacement of mitral valve with mechanical prosthesis (17) Sepsis Surgical Problems: (1) Cholecystectomy (2) Hysterectomy Family History Diabetes mellitus Heart disease Hypertension Social History Smoking Status: Former Smoker Alcohol Use: none Drug Use: none Marital Status: Housing Status: lives with family Occupation Status: retired Current/Historical Medications Scheduled Cholecalciferol (Vitamin D3), 1,000 INTER.UNIT PO TID Cyanocobalamin (Vitamin B-12), 1,000 MCG PO QAM Diazepam (Valium), 5 MG PO HS Digoxin (Digoxin), 0.125 MG PO QAM Ezetimibe (Ezetimibe), 10 MG PO HS Fexofenadine Hcl (Vickie), 180 MG PO QAM Furosemide (Furosemide), 40 MG PO QAM Gemfibrozil (Gemfibrozil), 600 MG PO BID Hydralazine Hcl (Apresoline), 25 MG PO BID Insulin Glargine (Lantus), 15 UNITS SC AMPM Isosorbide Mononitrate (Isosorbide Mononitrate ER), 30 MG PO QAM Levothyroxine Sodium (Synthroid), 175 MCG PO DAILY Metoprolol Succinate (Metoprolol Succinate ER), 50 MG PO QAM Misc Natural Products (Osteo Bi-Flex Joint Shiel), 1 TAB PO BID Montelukast Sod (Montelukast Sodium), 10 MG PO QAM Pyridoxine (Vitamin B6), 100 MG PO QAM Spironolactone (Aldactone), 50 MG PO DAILY Trospium Chloride (Trospium Chloride), 20 MG PO DAILY Warfarin Sodium (Coumadin), 4 MG PO 5XWK Warfarin Sodium (Coumadin), 2 MG PO 2XWK [Inhaler], Unknown Dose INH QID Scheduled PRN Diclofenac Sodium (Topical) (Diclofenac Sodium), 1 APPLN TOP QID PRN for Pain- Affected Joints Insulin Aspart (Novolog), 1 DOSE SC ACHS PRN for As Needed Oxycodone HCl (Oxycodone HCl), 5 MG PO DAILY PRN for Pain Allergies Coded Allergies: Penicillins (Verified Allergy, Severe, anaphylaxis 30yrs ago, also broke out with sores, 12/26/16) NOTE: Timentin 05/2003 tolerated without problem Doxycycline (Verified Allergy, Intermediate, GI SYMPTOMS, 12/26/16) Diltiazem (Verified Allergy, Unknown, unknown, 12/26/16) Levofloxacin (Verified Allergy, Unknown, UNKNOWN, 12/26/16) Moxifloxacin (Verified Allergy, Unknown, UNKNOWN, 12/26/16) Aspirin (Verified Adverse Reaction, Intermediate, increased bleeding (on warfarin), 12/26/16) Atorvastatin (Verified Adverse Reaction, Unknown, & Crestor = muscle aches /pains, 12/26/16) NSAIDs (Verified Adverse Reaction, Unknown, AVOID PER DR. HICKS - [id number] , 12/26/16) Nortriptyline (Verified Adverse Reaction, Unknown, choking on food, ) Quinidine (Verified Adverse Reaction, Unknown, flu-like symptoms, 12/26/16 ) Sulfamethoxazole w/Trimethoprim (Verified Adverse Reaction, Unknown, CONFUSION, 12/26/16) Physical Exam Vital Signs Date Time Temp Pulse Resp B/P (MAP) Pulse Ox O2 Delivery O2 Flow Rate FiO2 12/26/16 23:37 98 Nasal Cannula 2.0 12/26/16 23:18 93 Room Air 12/26/16 23:16 36.8 91 18 180/97 93 Room Air 12/26/16 23:12 97 Physical Exam CONSTITUTIONAL/VITAL SIGNS: Reviewed / noted above. GENERAL: Non-toxic in appearance. INTEGUMENTARY: Warm, dry, and [place]. HEAD: Normocephalic. EYES: without scleral icterus or trauma. ENT/OROPHARYNX: clear and moist. LYMPHADENOPATHY/NECK: Is supple without lymphadenopathy or meningismus. RESPIRATORY: Lungs clear and equal. CARDIOVASCULAR: Regular rate and rhythm. GI/ABDOMEN: Soft and nontender. No organomegaly or pulsatile mass. No rebound or guarding. Normal bowel sounds. EXTREMITIES: Warm and well perfused. BACK: No CVA tenderness. NEUROLOGICAL: Intact without focal deficits. PSYCHIATRIC: normal affect. MUSCULOSKELETAL: Normally developed with good muscle tone. Medical Decision & Procedures ER Provider Diagnostic Interpretation: X ray results and stated below per my interpretation. Chest X-ray: There is a right sided pleural effusion. No obvious pneumonia or pneumothorax. Compared to previous X-ray, there is improvement of the atelectasis that was previously reported. Laboratory Results 12/26/16 22:55 Red Blood Count 3.79, Mean Corpuscular Volume 83.6, Mean Corpuscular Hemoglobin 25.3, Mean Corpuscular Hemoglobin Concent 30.3, Mean Platelet Volume 10.4, Neutrophils (%) (Auto) 66.7, Lymphocytes (%) (Auto) 17.0, Monocytes (%) (Auto) 11.8, Eosinophils (%) (Auto) 3.8, Basophils (%) (Auto) 0.4, Neutrophils # (Auto ) 5.25, Lymphocytes # (Auto) 1.34, Monocytes # (Auto) 0.93, Eosinophils # (Auto ) 0.30, Basophils # (Auto) 0.03 12/26/16 22:55 Test 12/26/16 22:55 White Blood Count 7.87 K/uL (4.8-10.8) Red Blood Count 3.79 M/uL (4.2-5.4) Hemoglobin 9.6 g/dL (12.0-16.0) Hematocrit 31.7 % (37-47) Mean Corpuscular Volume 83.6 fL (80-100) Mean Corpuscular Hemoglobin 25.3 pg (25-34) Mean Corpuscular Hemoglobin Concent 30.3 g/dl (32-36) Platelet Count 231 K/uL (130-400) Mean Platelet Volume 10.4 fL (7.4-10.4) Neutrophils (%) (Auto) 66.7 % Lymphocytes (%) (Auto) 17.0 % Monocytes (%) (Auto) 11.8 % Eosinophils (%) (Auto) 3.8 % Basophils (%) (Auto) 0.4 % Neutrophils # (Auto) 5.25 K/uL (1.4-6.5) Lymphocytes # (Auto) 1.34 K/uL (1.2-3.4) Monocytes # (Auto) 0.93 K/uL (0.11-0.59) Eosinophils # (Auto) 0.30 K/uL (0-0.5) Basophils # (Auto) 0.03 K/uL (0-0.2) RDW Standard Deviation 58.3 fL (36.4-46.3) RDW Coefficient of Variation 19.0 % (11.5-14.5) Immature Granulocyte % (Auto) 0.3 % Immature Granulocyte # (Auto) 0.02 K/uL (0.00-0.02) Prothrombin Time 32.2 SECONDS (9.0-12.0) Prothromb Time International Ratio 2.9 (0.9-1.1) Activated Partial Thromboplast Time 31.2 SECONDS (21.0-31.0) Partial Thromboplastin Ratio 1.2 Anion Gap 11.0 mmol/L (3-11) Est Creatinine Clear Calc Drug Dose 26.6 ml/min Estimated GFR () 31.6 Estimated GFR (Non- 27.2 BUN/Creatinine Ratio 28.7 (10-20) Calcium Level 9.4 mg/dl (8.5-10.1) Total Bilirubin 0.6 mg/dl (0.2-1) Direct Bilirubin 0.2 mg/dl (0-0.2) Aspartate Amino Transf (AST/SGOT) 30 U/L (15-37) Alanine Aminotransferase (ALT/SGPT) 35 U/L (12-78) Alkaline Phosphatase 93 U/L (45-117) Total Creatine Kinase 85 U/L (26-192) Creatine Kinase MB 3.0 ng/ml (0.5-3.6) Creatine Kinase MB Ratio 3.5 (0-3.0) Troponin I 0.039 ng/ml (0-0.045) Total Protein 8.2 gm/dl (6.4-8.2) Albumin 4.4 gm/dl (3.4-5.0) Laboratory results as stated above per my review. Medications Administered Medications (Trade) Dose Ordered Sig/Albin Route Start Time Stop Time Status Last Admin Dose Admin Lorazepam (Ativan Tab) 0.5 mg NOW STAT SL 12/26/16 23:36 12/26/16 23:46 DC 12/27/16 00:04 0.5 MG ECG Indication: SOB/dyspnea Rate (beats per minute): 103 Rhythm: atrial fibrillation Findings: RBBB, other (no acute injury) Comparison ECG Date: 11-Dec-2016 Change: no significant change ED Course 2315: Previous medical records were reviewed. The patient was evaluated in room B11B. A complete history and physical examination was performed. 2336: Lorazepam 0.5 mg SL. 0014: On reevaluation, the patient is resting comfortably. I discussed the results and findings with the patient. She verbalized agreement of the treatment plan. She was discharged home. Medical Decision Differential includes acute coronary syndrome, myocardial infarction, CVA, TIA, anemia, infection, pneumonia, UTI, pyelonephritis, poor nutrition, dehydration, electrolyte disturbance,hypoglycemia. This is a 76-year-old female who presents to the ED with a chief complaint of a little nausea and numbness in her left side for a couple of weeks as well as her hands and fingers became locked up tonight. The patient on exam seemed to be anxious. She states that she has been off and on antibiotics and prednisone all month. The patient's vital signs are stable. She is somewhat hypertensive although she appears to be anxious and this might be related. Chest x-ray did not show any acute disease. There appears to be a chronic right pleural effusion and the appearance looks similar and slightly better than the previous recent one. Blood work includes an unremarkable CBC. Hemoglobin is baseline. Creatinine is 1.8 and is also baseline. Troponin was negative. INR is 2.9. The patient was told the results of the test. She is felt to be stable for discharge and outpatient follow-up. She was given some Ativan sublingual. I suspect the locking up with her hands tonight was related to hyperventilation and anxiety. Medication Reconcilliation Current Medication List: was personally reviewed by me Blood Pressure Screening Patient's blood pressure: Elevated blood pressure Blood pressure disposition: Referred to PCP Impression Primary Impression: Anxiety Scribe Attestation The scribe's documentation has been prepared under my direction and personally reviewed by me in its entirety. I confirm that the note above accurately reflects all work, treatment, procedures, and medical decision making performed by me. Departure Information Dispostion Home / Self-Care Referrals Phoenix Klein III, CRNP (PCP) Patient Instructions Anxiety Disorder, My [facility] Additional Instructions Follow-up with your doctor for further care and evaluation in 1-2 days. Return to the emergency department for worsening or new symptoms or any concerns. You have been examined and treated today on an emergency basis only. This is not a substitute for, or an effort to provide, complete comprehensive medical care. It is impossible to recognize and treat all injuries or illnesses in a single emergency department visit. It is therefore important that you follow up closely with your doctor. Call as soon as possible for an appointment.
[2016-12-27 00:15] VITALS: BP 148/73
--- NOTE | 2016-12-27 07:23 | DIAGNOSTIC IMAGING REPORT ---
CHEST ONE VIEW PORTABLE HISTORY: Evaluate Fever/Sepsis COMPARISON: Chest 12/11/2016. FINDINGS: The heart remains enlarged. No pneumothorax. Small right pleural effusion and right basilar airspace opacities have slightly improved. Left-sided single lead pacemaker. Postoperative changes and a cardiac valve prosthesis. Stable linear densities within the left lung base suggesting atelectasis. Slight improvement in the pulmonary edema pattern. IMPRESSION: 1. Improvement in the pulmonary edema. 2. Small right pleural effusion and right base airspace opacities have also improved. Electronically signed by: Lalito Villavicencio M.D. 12/27/2016 7:22 AM Dictated Date/Time: 12/27/2016 7:21 AM
== END 2016-12-27 00:36 | disposition home or self-care (01) ==
LOC: EDBD 23:05 → C.EDB 23:08
DX: F41.9 Anxiety disorder, unspecified (principal); J45.909 Unspecified asthma, uncomplicated; N18.9 Chronic kidney disease, unspecified; E11.9 Type 2 diabetes mellitus without complications; I48.91 Unspecified atrial fibrillation; I50.22 Chronic systolic (congestive) heart failure; Z87.01 Personal history of pneumonia (recurrent); Z86.718 Personal history of other venous thrombosis and embolism; Z86.73 Personal history of transient ischemic attack (TIA), and cerebral infarction without residual deficits; Z87.891 Personal history of nicotine dependence; Z95.0 Presence of cardiac pacemaker; Z95.2 Presence of prosthetic heart valve; Z90.710 Acquired absence of both cervix and uterus; Z90.49 Acquired absence of other specified parts of digestive tract; Z83.3 Family history of diabetes mellitus; Z82.49 Family history of ischemic heart disease and other diseases of the circulatory system; Z79.01 Long term (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 of anticoagulants; Z79.4 Long term (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 of insulin; Z79.899 Other long term (current) drug therapy

== ENCOUNTER → 2016-12-30 | Outpatient (CLI) | payer BC ==
[~2016-12-30] MED LIST changes: +INHALER INH; +INSDGI SC; -INSDGIPEN SC
--- NOTE | 2016-12-30 12:32 | DIAGNOSTIC IMAGING REPORT ---
CT HEAD WITHOUT CONTRAST (CT) CLINICAL HISTORY: Headaches and unilateral weakness COMPARISON STUDY: 02/17/2016 TECHNIQUE: Axial CT of the brain is performed from the vertex to the skull base. IV contrast was not administered for this examination. A dose lowering technique was utilized adhering to the principles of ALARA. CT DOSE: k FINDINGS: No intra or extra-axial mass lesions are visualized. There is no CT evidence of acute cortical infarction. There is no evidence of midline shift. There is no acute hemorrhage. No calvarial fractures are visualized. There are patchy white matter hypodensities likely on a small vessel basis. There is no evidence of pathologic ventricular dilatation. There is no evidence of acute sinusitis IMPRESSION: No acute intracranial findings Electronically signed by: Nikita Culp M.D. 12/30/2016 12:31 PM Dictated Date/Time: 12/30/2016 12:30 PM
== END ==
LOC: C.CTS 12:14
PROVIDERS: ATTEND Nurse Practitioner Family
DX: R51 Headache (principal); R53.1 Weakness

== ENCOUNTER → 2017-01-13 | Outpatient (CLI) | payer BC ==
--- NOTE | 2017-01-13 16:05 | ECHOCARDIOGRAM REPORT ---
*NOTICE TO RECEIVING [employer] This information is strictly Confidential and protected under [place] law. [place] law prohibits you from making any further disclosure of this information unless further disclosure is expressly permitted by the written consent of the person to whom it pertains or is authorized by law. A general authorization for the release of medical or other information is not sufficient for this purpose. Hospital accepts no responsibility if the information is made available to any other person, INCLUDING THE PATIENT. Interpretation Summary * Name: MAGNUS ZIEGLER Study Date: 01/13/2017 10:14 AM * Patient Location: [facility] HR: 98 * : 1940 (M/d/yyyy) Gender: Female Height: 63 in * Age: 76 yrs Ethnicity: [place] Weight: 160 lb * Ordering Physician: CLIVE JENSEN III, CRNP * Performed By: Sierra Roman RCS * * Reason For Study: SOB * BSA: 1.8 m2 * -- Conclusions -- * 1. Normal left ventricular size and systolic function. EF 60-65%. Moderate concentric left ventricular hypertrophy. No regional wall motion abnormalities. Septal flattening during diastole suggests right ventricular volume overload. * 2. Right ventricle is not well visualized but appears to be at least mildly dilated with reduced systolic function. * 3. Severe left atrial dilation. * 4. Moderate to severe pulmonic regurgitation. * 5. Dowd-Lee mitral valve with severe stenosis. (Mean gradient 18mmHg) * 6. Mitral valve prosthesis appears to project into the LVOT, but no significant obstruction suggested. * 7. Small pericardial effusion without echocardiographic evidence of tamponade physiology. * 8. Severe pulmonary hypertension suggested with estimated RVSP of 65 mmHg. * 9. Compared to prior study on 06/27/2016, transvalvular bioprosthetic mitral valve gradients and velocities have increased. Procedure Details * A complete two-dimensional transthoracic echocardiogram was performed (2D, M-mode, Doppler and color flow Doppler). Left Ventricle * Normal left ventricular size and systolic function. EF 60-65%. Moderate concentric left ventricular hypertrophy. No regional wall motion abnormalities. Septal flattening during diastole suggests right ventricular volume overload. Right Ventricle * There is a pacemaker lead in the right ventricle. * Right ventricle is not well visualized but appears to be at least mildly dilated with reduced systolic function. * The right ventricular systolic function is reduced as assessed by tricuspid annular plane systolic excursion (TAPSE) (TAPSE <1.6 cm). Atria * The left atrium is severely dilated. * The right atrium is mildly dilated. * There is no evidence of atrial septal defect, but resolution does not allow assessment for a patent foramen ovale. Mitral Valve * There is severe mitral annular calcification. * Dowd-Lee mitral valve with severe stenosis. * No significant mitral regurgitation visualized. Tricuspid Valve * The tricuspid valve is not well visualized, but is grossly normal. * There is no tricuspid stenosis. * There is mild to moderate tricuspid regurgitation. Aortic Valve * The aortic valve is trileaflet. * Aortic valve sclerosis mild, without significant aortic valvular stenosis. * No hemodynamically significant valvular aortic stenosis. * There is no significant aortic regurgitation. Pulmonic Valve * The pulmonary valve is inadequately visualized, but the Doppler data is adequate for interpretation. * Moderate to severe pulmonic regurgitation. * There is no pulmonic valvular stenosis. Great Vessels * The aortic root is normal size. * Ascending aorta of normal dimension Pericardium/Pleural * Small pericardial effusion without echocardiographic evidence of tamponade physiology. Great Vessels * Severely dilated IVC with reduced systolic function. MMode 2D Measurements and Calculations IVSd 1.4 cm LVIDd 3.4 cm LVIDs 2.2 cm LVPWd 1.4 cm IVS/LVPW 1.0 FS 33.6 % EDV(Teich) 45.8 ml ESV(Teich) 16.7 ml EF(Teich) 63.5 % EDV(cubed) 37.6 ml ESV(cubed) 11.0 ml EF(cubed) 70.7 % LV mass(C)d 157.0 grams LV mass(C)dI 89.2 grams/m\S\2 SV(Teich) 29.1 ml SI(Teich) 16.5 ml/m\S\2 SV(cubed) 26.6 ml SI(cubed) 15.1 ml/m\S\2 Ao root diam 3.2 cm Ao root area 8.2 cm\S\2 LA dimension 5.8 cm asc Aorta Diam 3.2 cm LA/Ao 1.8 LVOT diam 2.1 cm LVOT area 3.4 cm\S\2 Doppler Measurements and Calculations MV E max jacqueline 284.6 cm/sec MV V2 max 316.5 cm/sec MV max PG 40.1 mmHg MV V2 mean 198.9 cm/sec MV mean PG 18.2 mmHg MV V2 VTI 54.3 cm MV dec time 0.24 sec Ao V2 max 168.2 cm/sec Ao max PG 11.3 mmHg Ao max PG (full) 7.8 mmHg JAC(V,A) 1.9 cm\S\2 JAC(V,D) 1.9 cm\S\2 AI max jacqueline 364.7 cm/sec AI max PG 53.2 mmHg LV V1 max PG 3.5 mmHg LV V1 max 93.4 cm/sec PA V2 max 125.8 cm/sec PA max PG 6.3 mmHg PI max jacqueline 276.1 cm/sec PI max PG 30.5 mmHg PI dec slope 673.8 cm/sec\S\2 PI P1/2t 120.0 msec TR max jacqueline 352.8 cm/sec RVSP(TR) 65.1 mmHg RAP systole 15.0 mmHg
== END | disposition home or self-care (01) ==
LOC: C.CPL 09:56
PROVIDERS: ATTEND Nurse Practitioner Family
DX: I50.41 Acute combined systolic (congestive) and diastolic (congestive) heart failure (principal)

== ENCOUNTER → 2017-01-13 | Outpatient (CLI) | payer BC ==
[2017-01-13 10:14] LABS: CHOLESTEROL/HDL RATIO 5.5; ESTIMATED AVERAGE GLUCOSE 143 mg/dl; HA1C FLAG Normal (Normal); THYROID STIMULATING HORMONE 0.377 uIu/ml (0.300-4.500)
[2017-01-13 10:44] LABS: CREATININE RANDOM URINE 67.6 mg/dl
[2017-01-13 10:55] LABS: RATIO 22.3 mcg/mg (0-30.0)
== END | disposition home or self-care (01) ==
LOC: C.LAB 07:36
PROVIDERS: ATTEND Nurse Practitioner Family
DX: I12.9 Hypertensive chronic kidney disease with stage 1 through stage 4 chronic kidney disease, or unspecified chronic kidney disease (principal); E78.00 Pure hypercholesterolemia, unspecified; E11.9 Type 2 diabetes mellitus without complications; I25.10 Atherosclerotic heart disease of native coronary artery without angina pectoris; I50.9 Heart failure, unspecified; E03.9 Hypothyroidism, unspecified; N18.3 Chronic kidney disease, stage 3 (moderate); D64.9 Anemia, unspecified; I48.2 Chronic atrial fibrillation

== ENCOUNTER → 2017-03-07 | Outpatient (CLI) | payer BC ==
--- NOTE | 2017-03-07 11:54 | DIAGNOSTIC IMAGING REPORT ---
L RIBS UNILATERAL WITH PA CHEST HISTORY: 76 years-old Female R07.81 Rib [id number] acute left-sided rib pain COMPARISON: Chest radiograph 01/16/2017 TECHNIQUE: PA view of the chest with 5 views of the left ribs FINDINGS: Cardiac silhouette is moderately enlarged. Prior median sternotomy with prosthetic cardiac valve. Left pectoral pacer is noted with leads intact. Atherosclerosis of the aorta. Pulmonary vascular congestion without overt pulmonary edema. Small right pleural effusion. Linear subsegmental bibasilar opacities are noted suggesting atelectasis or scarring. Surgical clips of the right upper abdomen suggest prior cholecystectomy. No acute rib fracture identified. IMPRESSION: 1. No acute rib fracture or pneumothorax identified. 2. Cardiomegaly and pulmonary vascular congestion with small right pleural effusion. 3. Subsegmental linear bibasilar opacities suggest atelectasis or scarring. The above report was generated using voice recognition software. It may contain grammatical, syntax or spelling errors. Electronically signed by: Anand Hermosillo M.D. 03/07/2017 11:53 AM Dictated Date/Time: 03/07/2017 11:50 AM
== END | disposition home or self-care (01) ==
LOC: C.RAD1850 11:13
PROVIDERS: ATTEND Nurse Practitioner Family
DX: R07.81 Pleurodynia (principal); I51.7 Cardiomegaly; R09.89 Other specified symptoms and signs involving the circulatory and respiratory systems; J90 Pleural effusion, not elsewhere classified; R91.8 Other nonspecific abnormal finding of lung field

== ENCOUNTER → 2017-03-24 | Outpatient (CLI) | payer BC ==
[2017-03-24 11:44] LABS: BASO % 0.6 %; BASO ABS # 0.03 K/uL (0-0.2); EOS ABS # 0.29 K/uL (0-0.5); HEMATOCRIT 28.4 % (37-47); HEMOGLOBIN 8.8 g/dL (12.0-16.0); IG# 0.01 K/uL (0.00-0.02); LYMPH ABS # 0.92 K/uL (1.2-3.4); MEAN CELL VOLUME 88.2 fL (80-100); MEAN CORPUSCULAR HEMOGLOBIN 27.3 pg (25-34); MEAN PLATELET VOLUME 9.2 fL (7.4-10.4); MONO % 12.6 %; MONO ABS # 0.61 K/uL (0.11-0.59); NEUT % 61.6 %; NEUT ABS # 2.97 K/uL (1.4-6.5); PLATELET COUNT 204 K/uL (130-400); RED CELL DISTRIBUTION WIDTH CV 22.5 % (11.5-14.5); WHITE BLOOD COUNT 4.83 K/uL (4.8-10.8)
[2017-03-24 12:00] LABS: BLOOD UREA NITROGEN 46 mg/dl (7-18); CALCIUM 9.7 mg/dl (8.5-10.1); CARBON DIOXIDE 24 mmol/L (21-32); CREATININE 1.84 mg/dl (0.60-1.20); GLUCOSE 79 mg/dl (70-99); POTASSIUM 4.2 mmol/L (3.5-5.1); SODIUM 139 mmol/L (136-145)
== END | disposition home or self-care (01) ==
LOC: C.LAB 10:25
PROVIDERS: ATTEND Nurse Practitioner Family
DX: I25.10 Atherosclerotic heart disease of native coronary artery without angina pectoris (principal); I10 Essential (primary) hypertension

== ENCOUNTER 2017-04-29 22:57 | Inpatient (IN) | payer BC, OTHER ==
[~2017-04-29] VITALS: Ht 160 cm; Wt 73.3 kg
[~2017-04-29 22:57] MED LIST changes: -CEFU1TAB35 PO; -DOXY100T PO; -ENOX120I SQ; -IPRASOL4 INH; -LEVA45AE INH; -METO100T44 PO; -WARF2TAB PO
[2017-04-29] MEDS ORDERED: FUROSEMIDE 40 MG/4 ML VIAL IV STA (23:23)
[2017-04-29] MEDS ORDERED: ALBUT/IPRATROP 3MG/0.5MG NEB 3 ML VIAL INH STA (23:23)
--- NOTE | 2017-04-29 23:23 | EMERGENCY ROOM VISIT NOTE ---
History Report prepared by Dianne: Des Saleh Under the Supervision of: Dr. Carlos Eduardo Oro M.D. First contact with patient: 23:09 Chief Complaint: RESPIRATORY PROBLEMS Stated Complaint: SOB, PROBLEMS BREATHING, HX OF CHF History of Present Illness The patient is a 76 year old female who presents to the Emergency Room with complaints of worsening, severe shortness of breath beginning a week ago. The patient states she was evaluated by her PCP earlier today. She reports her x- ray showed fluid in her lungs. She states she was also given an extra dose of Lasix, and she was told to come to the ED if her symptoms worsen. The patient notes her O2 sat at home was 92. She states she has a history of CHF. The patient reports she does not have oxygen at home. She notes she has been hospitalized multiple times for similar symptoms in the past. The patient states it was very severe 10 months ago, and she had 1500cc of fluid removed. She reports she was last in the ED five months ago for similar symptoms, and her lungs did not require drainage. The patient notes she has also been coughing and congested. She states she is also experiencing swelling to her legs. The patient reports her cat bit her on her right lower leg yesterday, but that is not contributing to her symptoms. She notes she was placed on antibiotics for the bite. The patient states she thinks would benefit from Bi- PAP. Source of History: patient Onset: a week ago Position: other (global) Symptom Intensity: severe Quality: other (SOB) Timing: worsening Associated Symptoms: + cough Note: Associated symptoms: congestion, swelling to her legs Review of Systems See HPI for pertinent positives and negatives. A total of ten systems were reviewed and were otherwise negative. Past Medical & Surgical Medical Problems: (1) Acute kidney injury (2) Acute pancreatitis (3) Acute respiratory failure with hypoxia (4) Acute systolic congestive heart failure (5) Acute urinary tract infection (6) Asthma (7) Atrial fibrillation (8) Cardiac pacemaker procedure (9) CKD (chronic kidney disease) (10) Contrast dye induced nephropathy (11) Deep venous thrombosis (12) Diabetes mellitus (13) History of mitral valve replacement with mechanical valve (14) PERSONAL HX OF TIA,& CEREBRAL INFARCTION W/OUT RES DEFICITS (15) Pneumonia (16) Replacement of mitral valve with mechanical prosthesis (17) Sepsis Surgical Problems: (1) Cholecystectomy (2) Hysterectomy Family History Diabetes mellitus Heart disease Hypertension Social History Smoking Status: Former Smoker Alcohol Use: none Drug Use: none Marital Status: Housing Status: lives with family Occupation Status: retired Current/Historical Medications Scheduled Cholecalciferol (Vitamin D3), 1,000 INTER.UNIT PO TID Cyanocobalamin (Vitamin B-12), 1,000 MCG PO QAM Diazepam (Valium), 5 MG PO HS Digoxin (Digoxin), 0.125 MG PO QAM Doxycycline Hyclate (Doxycycline Hyclate), 1 TAB PO BID Ezetimibe (Ezetimibe), 10 MG PO HS Fexofenadine Hcl (Vickie), 180 MG PO QAM Furosemide (Furosemide), 60 MG PO QAM Gemfibrozil (Gemfibrozil), 600 MG PO BID Hydralazine Hcl (Apresoline), 25 MG PO BID Insulin Glargine (Lantus), 15 UNITS SC AMPM Ipratropium-Albuterol (Duoneb), 1 TREATMENT INH QID Isosorbide Mononitrate (Isosorbide Mononitrate ER), 30 MG PO QAM Levothyroxine Sodium (Synthroid), 175 MCG PO DAILY Metoprolol Succ (Toprol Xl) (Toprol-Xl ), 100 MG PO DAILY Misc Natural Products (Osteo Bi-Flex Joint Shiel), 1 TAB PO BID Montelukast Sod (Montelukast Sodium), 10 MG PO QAM Pyridoxine (Vitamin B6), 100 MG PO QAM Spironolactone (Aldactone), 50 MG PO DAILY Trospium Chloride (Trospium Chloride), 20 MG PO DAILY Warfarin Sodium (Coumadin), 2 MG PO UD Warfarin Sodium (Coumadin), 4 MG PO UD Scheduled PRN Diclofenac Sodium (Topical) (Diclofenac Sodium), 1 APPLN TOP QID PRN for Pain- Affected Joints Insulin Aspart (Novolog), 1 DOSE SC ACHS PRN for As Needed Levalbuterol Tartrate (Levalbuterol Tartrate Hfa), 1-2 PUFFS INH q4-6h PRN for as directed Oxycodone HCl (Oxycodone HCl), 1-2 TABS PO Q4 PRN for Pain Allergies Coded Allergies: Penicillins (Verified Allergy, Severe, anaphylaxis 30yrs ago, also broke out with sores, 01/30/17) NOTE: Timentin 05/2003 tolerated without problem Diltiazem (Verified Allergy, Unknown, unknown, 01/30/17) Levofloxacin (Verified Allergy, Unknown, UNKNOWN, 01/30/17) Moxifloxacin (Verified Allergy, Unknown, UNKNOWN, 01/30/17) Aspirin (Verified Adverse Reaction, Intermediate, increased bleeding (on warfarin), 01/30/17) Doxycycline (Verified Adverse Reaction, Intermediate, GI SYMPTOMS, ) Atorvastatin (Verified Adverse Reaction, Unknown, & Crestor = muscle aches /pains, 01/30/17) NSAIDs (Verified Adverse Reaction, Unknown, AVOID PER DR. HICKS - [id number] , 01/30/17) Nortriptyline (Verified Adverse Reaction, Unknown, choking on food, ) Quinidine (Verified Adverse Reaction, Unknown, flu-like symptoms, 01/30/17 ) Sulfamethoxazole w/Trimethoprim (Verified Adverse Reaction, Unknown, CONFUSION, 01/30/17) Physical Exam Vital Signs Date Time Temp Pulse Resp B/P (MAP) Pulse Ox O2 Delivery O2 Flow Rate FiO2 04/30/17 01:37 84 18 135/85 100 Nasal Cannula 4.0 04/30/17 00:16 88 24 150/75 100 BiPAP 35 04/30/17 00:14 98 BiPAP 04/30/17 00:08 94 04/29/17 23:53 BiPAP 04/29/17 23:41 99 99 35 04/29/17 23:02 37.0 125 26 173/80 92 Room Air Physical Exam GENERAL: Awake, alert, moderate respiratory distress. Dyspneic on arrival. HENT: Normocephalic, atraumatic. Oropharynx unremarkable. EYES: Normal conjunctiva. Sclera non-icteric. NECK: Supple. No nuchal rigidity. FROM. No JVD. RESPIRATORY: Moderate respiratory distress. Dyspneic on arrival. Diminished breath sounds to the right base with scant scattered rhonchi and wheezes. CARDIAC: Regular rate, normal rhythm. 3/6 systolic murmur. Extremities warm and well perfused. Pulses equal. ABDOMEN: Soft, non-distended. No tenderness to palpation. No rebound or guarding. No masses. RECTAL: Deferred. MUSCULOSKELETAL: Chest examination reveals no tenderness. The back is symmetrical on inspection without obvious abnormality. There is no CVA tenderness to palpation. No joint edema. LOWER EXTREMITIES: Calves are equal size bilaterally and non-tender. 2+ pitting edema bilaterally. No discoloration. Punctate would to the right lower leg with serous drainage. No erythema or warmth. NEURO: Normal sensorium. No sensory or motor deficits noted. SKIN: No rash or jaundice noted. Medical Decision & Procedures ER Provider Diagnostic Interpretation: X-ray: Per my interpretation Chest One View Portable: Persistent pulmonary edema and right sided effusion - both consistent with her x-ray taken prior today Bedside electrocardiogram: Mild pericardial effusion. No tamponade. Dilated RV with grossly normal function. LVH with grossly normal function. Results are fairly consistent with prior ultrasound. Plethoric IVC with no variability. Moderate sized right pleural effusion. No significant B-lines. Laboratory Results 04/29/17 23:30 Red Blood Count 3.58, Mean Corpuscular Volume 85.2, Mean Corpuscular Hemoglobin 26.0, Mean Corpuscular Hemoglobin Concent 30.5, Mean Platelet Volume 10.0, Neutrophils (%) (Auto) 71.3, Lymphocytes (%) (Auto) 12.6, Monocytes (%) (Auto) 12.5, Eosinophils (%) (Auto) 3.1, Basophils (%) (Auto) 0.3, Neutrophils # (Auto ) 4.41, Lymphocytes # (Auto) 0.78, Monocytes # (Auto) 0.77, Eosinophils # (Auto ) 0.19, Basophils # (Auto) 0.02 04/29/17 23:30 Test 04/29/17 23:30 04/29/17 23:52 04/29/17 23:55 04/29/17 23:58 White Blood Count 6.18 K/uL (4.8-10.8) Red Blood Count 3.58 M/uL (4.2-5.4) Hemoglobin 9.3 g/dL (12.0-16.0) Hematocrit 30.5 % (37-47) Mean Corpuscular Volume 85.2 fL (80-100) Mean Corpuscular Hemoglobin 26.0 pg (25-34) Mean Corpuscular Hemoglobin Concent 30.5 g/dl (32-36) Platelet Count 207 K/uL (130-400) Mean Platelet Volume 10.0 fL (7.4-10.4) Neutrophils (%) (Auto) 71.3 % Lymphocytes (%) (Auto) 12.6 % Monocytes (%) (Auto) 12.5 % Eosinophils (%) (Auto) 3.1 % Basophils (%) (Auto) 0.3 % Neutrophils # (Auto) 4.41 K/uL (1.4-6.5) Lymphocytes # (Auto) 0.78 K/uL (1.2-3.4) Monocytes # (Auto) 0.77 K/uL (0.11-0.59) Eosinophils # (Auto) 0.19 K/uL (0-0.5) Basophils # (Auto) 0.02 K/uL (0-0.2) RDW Standard Deviation 58.3 fL (36.4-46.3) RDW Coefficient of Variation 18.7 % (11.5-14.5) Immature Granulocyte % (Auto) 0.2 % Immature Granulocyte # (Auto) 0.01 K/uL (0.00-0.02) Anion Gap 10.0 mmol/L (3-11) Est Creatinine Clear Calc Drug Dose 26.2 ml/min Estimated GFR () 31.2 Estimated GFR (Non- 26.9 BUN/Creatinine Ratio 26.1 (10-20) Lactic Acid Level 0.9 mmol/L (0.4-2.0) Calcium Level 9.6 mg/dl (8.5-10.1) Total Bilirubin 0.5 mg/dl (0.2-1) Direct Bilirubin 0.2 mg/dl (0-0.2) Aspartate Amino Transf (AST/SGOT) 33 U/L (15-37) Alanine Aminotransferase (ALT/SGPT) 25 U/L (12-78) Alkaline Phosphatase 141 U/L (45-117) Troponin I 0.025 ng/ml (0-0.045) Pro-B-Type Natriuretic Peptide 862 pg/ml (0-900) Total Protein 8.5 gm/dl (6.4-8.2) Albumin 4.0 gm/dl (3.4-5.0) Lipase 462 U/L (73-393) Digoxin Level 0.4 ng/ml (0.8-2.0) Bedside Troponin I < 0.030 ng/ml (0-0.045) Venous Blood pH 7.43 (7.36-7.41) Venous Blood Partial Pressure CO2 37 mmHg (38.0-50.0) Venous Blood Partial Pressure O2 69 mmHg Venous Blood HCO3 24 mmol/L Venous Blood Oxygen Saturation 92.1 % Venous Blood Base Excess -0.6 mEq/L Influenza Type A Antigen Neg for Influ A (NEG) Influenza Type B Antigen Neg for Influ B (NEG) Urine Color YELLOW Urine Appearance CLEAR (CLEAR) Urine pH 5.5 (4.5-7.5) Urine Specific [place] 1.012 (1.000-1.030) Urine Protein NEG (NEG) Urine Glucose (UA) NEG (NEG) Urine Ketones NEG (NEG) Urine Occult Blood NEG (NEG) Urine Nitrite NEG (NEG) Urine Bilirubin NEG (NEG) Urine Urobilinogen NEG (NEG) Urine Leukocyte Esterase NEG (NEG) Urine WBC (Auto) 0 /hpf (0-5) Urine RBC (Auto) 0-4 /hpf (0-4) Urine Hyaline Casts (Auto) 0 /lpf (0-5) Urine Epithelial Cells (Auto) 0-5 /lpf (0-5) Urine Bacteria (Auto) NEG (NEG) Test 04/30/17 00:15 Prothrombin Time 28.8 SECONDS (9.0-12.0) Prothromb Time International Ratio 2.8 (0.9-1.1) Activated Partial Thromboplast Time 35.3 SECONDS (21.0-31.0) Partial Thromboplastin Ratio 1.4 Laboratory results reviewed by me Medications Administered Medications (Trade) Dose Ordered Sig/Albin Route Start Time Stop Time Status Last Admin Dose Admin Albuterol/ Ipratropium (Duoneb) 3 ml NOW STAT INH 04/29/17 23:23 04/29/17 23:28 DC 04/29/17 23:40 3 ML Furosemide (Lasix Inj) 60 mg NOW STAT IV 04/29/17 23:23 04/29/17 23:28 DC 04/30/17 00:02 60 MG ECG Indication: SOB/dyspnea Rate (beats per minute): 115 Rhythm: sinus tachycardia Findings: RBBB, ST depression (Diffuse precordial), other (QRS of 150) Comparison ECG Date: 12/26/16 Change: no significant change Change: Diffuse precordial ST depression is old. Patient's electrocardiogram interpreted by me. ED Course 2311: The patient was evaluated in room A12B. A complete history and physical exam was performed. 0042: Upon reexamination, the patient was resting comfortably. I performed a beside electrocardiogram. Please refer to the Diagnostic Interpretation section for the results. I discussed the test results and treatment plan with she. The patient will be evaluated for further management. 0055: I discussed the patient's case with Dr. Cruz, [facility] Hospitalist. The patient will evaluated for further management and care. Medical Decision I reviewed the patient's past medical history, medications, and the nursing notes as described above. Differential diagnosis: Etiologies such as infections, reactive airway disease, pneumonia, pneumothorax , COPD, CHF, cardiac ischemia, pulmonary embolism, musculoskeletal, gastrointestinal, as well as others were entertained. The patient is a 76-year-old woman with a past medical history of severe pulmonary hypertension, severe mitral stenosis, CHF, CKD, since emergency Department with worsening shortness of breath after being seen by her PCPs office earlier today for evaluation of a right leg cat bite which showed no signs of infection but was placed on prophylactic doxycycline per history of present illness. Of note, during that visit she reported her shortness of breath and they agreed to try a trial of increased Lasix but was told to go to the emergency department if she worsens in any way. She reports that her shortness of breath continue to progress throughout the day and had an increase in the size of her right pleural effusion on outpatient chest x-ray. Arrival the patient is in moderate respiratory distress, dyspneic with increased work of breathing and oxygen saturation 90-92 on room air. She was put on BiPAP for work of breathing with significant improvement. EKG unchanged from prior with right bundle branch block and diffuse ST depressions that are chronic. Troponin negative. BNP 800s. Creatinine at baseline. Chest x-ray appears stable when compared to palpation chest x-ray earlier today with increased right pleural effusion. Patient given 60 mg of IV Lasix on arrival she with overall improvement since this and being on BiPAP. Patient is asking to take the BiPAP off after her improvement thus we'll attempt trial without BiPAP. Given the patient's moderate moderate respiratory distress on arrival will admit the patient for further management and likely pulmonary or thoracic consult for increased pleural effusion. Given the patient's stabilization no indication for emergent thoracentesis at this time. Case was discussed with Dr. Cruz [facility] hospitalist who will evaluate the patient for admission. Medication Reconcilliation Current Medication List: was personally reviewed by me Blood Pressure Screening Patient's blood pressure: Elevated blood pressure Monitored by hospitalist. Consults Consulting Physician: Dr. Cruz [facility] Hospitalist Returned Call: [phone] I discussed the patient's case with Dr. Cruz [facility] Hospitalist. The patient will evaluated for further management and care. Impression Primary Impression: Respiratory failure Additional Impressions: CHF (congestive heart failure) Pulmonary HTN Critical Care I have personally spent greater than 35 minutes of critical care time in the direct management of this patient. This includes bedside care, interpretation of diagnostic studies, and testing, discussion with consultants, patient, and family members, and other required patient management activities. This 35 minutes is in excess of all separately billable procedures. Scribe Attestation The scribe's documentation has been prepared under my direction and personally reviewed by me in its entirety. I confirm that the note above accurately reflects all work, treatment, procedures, and medical decision making performed by me. Departure Information Dispostion Being Evaluated By Hospitalist Referrals Phoenix Klein III, CRNP (PCP) Patient Instructions My [facility] Problem Qualifiers
[2017-04-29 23:41] VITALS: PULSE 99; O2SAT 99
[2017-04-29 23:59] LABS: BASO % 0.3 %; BASO ABS # 0.02 K/uL (0-0.2); EOS % 3.1 %; EOS ABS # 0.19 K/uL (0-0.5); HEMATOCRIT 30.5 % (37-47); HEMOGLOBIN 9.3 g/dL (12.0-16.0); IG# 0.01 K/uL (0.00-0.02); LYMPH % 12.6 %; LYMPH ABS # 0.78 K/uL (1.2-3.4); MEAN CELL VOLUME 85.2 fL (80-100); MEAN CORPUSCULAR HGB CONC 30.5 g/dl (32-36); MONO % 12.5 %; MONO ABS # 0.77 K/uL (0.11-0.59); NEUT % 71.3 %; NEUT ABS # 4.41 K/uL (1.4-6.5); PLATELET COUNT 207 K/uL (130-400); RED CELL DISTRIBUTION WIDTH CV 18.7 % (11.5-14.5); RED CELL DISTRIBUTION WIDTH SD 58.3 fL (36.4-46.3); WHITE BLOOD COUNT 6.18 K/uL (4.8-10.8)
[2017-04-30] VITALS (13 sets, daily range): BP systolic 116–159; BP diastolic 49–74; PULSE 60–110; TEMP 36.6–37.2; O2SAT 91–95; Ht 160 cm; Wt 73.3 kg
[2017-04-30 00:16] LABS: CALCIUM 9.6 mg/dl (8.5-10.1); CREATININE 1.82 mg/dl (0.60-1.20); POTASSIUM 3.9 mmol/L (3.5-5.1)
[2017-04-30 00:21] LABS: TOTAL PROTEIN 8.5 gm/dl (6.4-8.2)
[2017-04-30 00:34] LABS: INR 2.8 (0.9-1.1); PTT PATIENT 35.3 SECONDS (21.0-31.0)
[2017-04-30 00:35] LABS: INFLUENZA B ANTIGEN Neg for Influ B (NEG)
[2017-04-30] MEDS ORDERED: DOXY100T PO (01:23)
[2017-04-30] MEDS ORDERED: IPRASOL4 INH (01:26)
[2017-04-30] MEDS ORDERED: METO100T44 PO (01:29)
[2017-04-30] MEDS ORDERED: LEVA45AE INH (01:32)
[2017-04-30] MEDS ORDERED: WARF4TAB PO (01:33)
[2017-04-30] MEDS ORDERED: WARF2TAB PO (01:33)
[2017-04-30] MEDS ORDERED: ALUMINUM/MAGNESIUM/SIMETH (MAALOX MAX) 30 ML UDC PO PRN (02:30)
[2017-04-30] MEDS ORDERED: ONDANSETRON INJ 2 MG/ML 2 ML VIAL IV PRN (02:30)
[2017-04-30] MEDS ORDERED: MAGNESIUM HYDROXIDE SUSP 30 ML UDC PO PRN (02:30)
[2017-04-30] MEDS ORDERED: POLYETHYLENE (MIRALAX) 17 GM PACK PO PRN (02:30)
[2017-04-30] MEDS ORDERED: PHARMACY GLYCEMIC MGMT CONSULT PRN (03:30)
[2017-04-30] MEDS: LEVOTHYROXINE 175 MCG TAB PO SCH (06:00)
--- NOTE | 2017-04-30 06:06 | History and Physical ---
History & Physical Date & Time of Service: Apr 30, 2017 at 03:08 Chief Complaint: Sob, Problems Breathing, Hx Of Chf Primary Care Physician: Phoenix Klein III, CRNP History of Present Illness Source: patient, hospital records 76 yo F with mechanical mitral valve (1985)on coumadin, type 2 DM, CHF, right sided pleural effusion since June s/p thoracentesis by Dr. Cueva. Patient presents with increasing SOB for last few weeks. Saw PCP yesterday for this in addition, draining wound from cat bite on Left leg. CXR was ordered showing She reports increase in Lasix dosage from 60 mg to 80 mg daily ofr 3 days however patient reprots she did not take her medication yesterday. CXR findings showed significant increase in size of a moderate right pleural effusion since chest radiograph of March 07, 2017.PCP prescibed prophylactic doxycycline for the cat bite, 80 mg Lasix x 3 days. She also reprorts epsiode of Chest pain worse with breathing x 15 minutes on Rigth side non radiating, 5 /10. She spoke to her PCP after cxr and was told to come in to be seen by ED. In th ED She arrived in moderate resp distress, dyspneic, 90-92 & sat. She was placed don Bipap and improved significantly in her work of breathing. CXR had no acute change. She was given 60 mg IV Lasix. BIPAP was later removed at patient's request and she was weaned to NC 4 L. Troponin neg. EKG no acute changes Past Medical/Surgical History Medical Problems: (1) Acute pancreatitis Status: Resolved (2) Acute urinary tract infection Status: Resolved (3) Asthma Status: Chronic (4) Atrial fibrillation Status: Chronic (5) Cardiac pacemaker procedure Status: Resolved (6) CKD (chronic kidney disease) Status: Chronic (7) Deep venous thrombosis Status: Resolved (8) Diabetes mellitus Status: Chronic (9) History of mitral valve replacement with mechanical valve Status: Chronic (10) PERSONAL HX OF TIA,& CEREBRAL INFARCTION W/OUT RES DEFICITS Status: Resolved (11) Pneumonia Status: Resolved Surgical Problems: (1) Cholecystectomy Status: Resolved (2) Hysterectomy Status: Resolved Family History Diabetes mellitus Heart disease Hypertension Social History Smoking Status: Former Smoker Drug Use: none Marital Status: Housing status: lives with family Occupational Status: retired Immunizations History of Influenza Vaccine: Yes Influenza Vaccine Date: Dec 23, 2010 History of Tetanus Vaccine?: utd History of Pneumococcal: Yes History of Hepatitis B Vaccine: No Multi-Drug Resistant Organisms History of MDRO: No Allergies Coded Allergies: Penicillins (Verified Allergy, Severe, anaphylaxis 30yrs ago, also broke out with sores, 01/30/17) NOTE: Timentin 05/2003 tolerated without problem Diltiazem (Verified Allergy, Unknown, unknown, 01/30/17) Levofloxacin (Verified Allergy, Unknown, UNKNOWN, 01/30/17) Moxifloxacin (Verified Allergy, Unknown, UNKNOWN, 01/30/17) Aspirin (Verified Adverse Reaction, Intermediate, increased bleeding (on warfarin), 01/30/17) Doxycycline (Verified Adverse Reaction, Intermediate, GI SYMPTOMS, ) Atorvastatin (Verified Adverse Reaction, Unknown, & Crestor = muscle aches /pains, 01/30/17) NSAIDs (Verified Adverse Reaction, Unknown, AVOID PER DR. HICKS - [id number] , 01/30/17) Nortriptyline (Verified Adverse Reaction, Unknown, choking on food, ) Quinidine (Verified Adverse Reaction, Unknown, flu-like symptoms, 01/30/17 ) Sulfamethoxazole w/Trimethoprim (Verified Adverse Reaction, Unknown, CONFUSION, 01/30/17) Home Medications Scheduled Cholecalciferol (Vitamin D3), 1,000 INTER.UNIT PO TID Cyanocobalamin (Vitamin B-12), 1,000 MCG PO QAM Diazepam (Valium), 5 MG PO HS Digoxin (Digoxin), 0.125 MG PO QAM Ezetimibe (Ezetimibe), 10 MG PO HS Fexofenadine Hcl (Vickie), 180 MG PO QAM Furosemide (Furosemide), 60 MG PO QAM Gemfibrozil (Gemfibrozil), 600 MG PO BID Hydralazine Hcl (Apresoline), 25 MG PO BID Insulin Glargine (Lantus), 15 UNITS SC AMPM Ipratropium-Albuterol (Duoneb), 1 TREATMENT INH QID Isosorbide Mononitrate (Isosorbide Mononitrate ER), 30 MG PO QAM Levothyroxine Sodium (Synthroid), 175 MCG PO DAILY Metoprolol Succ (Toprol Xl) (Toprol-Xl ), 100 MG PO DAILY Misc Natural Products (Osteo Bi-Flex Joint Shiel), 1 TAB PO BID Montelukast Sod (Montelukast Sodium), 10 MG PO QAM Pyridoxine (Vitamin B6), 100 MG PO QAM Spironolactone (Aldactone), 50 MG PO DAILY Trospium Chloride (Trospium Chloride), 20 MG PO DAILY Warfarin Sodium (Coumadin), 2 MG PO 2XWK Warfarin Sodium (Coumadin), 4 MG PO 5XWK Scheduled PRN Diclofenac Sodium (Topical) (Diclofenac Sodium), 1 APPLN TOP QID PRN for Pain- Affected Joints Insulin Aspart (Novolog), 1 DOSE SC ACHS PRN for As Needed Levalbuterol Tartrate (Levalbuterol Tartrate Hfa), 1-2 PUFFS INH q4-6h PRN for as directed Oxycodone HCl (Oxycodone HCl), 1-2 TABS PO Q4 PRN for Pain Review of Systems Constitutional: No fever Respiratory: + cough, + shortness of breath Cardiovascular: + chest pain (resolved) Physical Exam Vital Signs Date Time Temp Pulse Resp B/P (MAP) Pulse Ox O2 Delivery O2 Flow Rate FiO2 04/30/17 02:40 100 21 98 Nasal Cannula 4.0 04/30/17 02:31 146/78 04/30/17 02:10 79 22 98 Nasal Cannula 4.0 04/30/17 02:01 102/83 04/30/17 01:40 105 16 98 Nasal Cannula 4.0 04/30/17 01:37 84 18 135/85 100 Nasal Cannula 4.0 04/30/17 00:16 88 24 150/75 100 BiPAP 35 04/30/17 00:14 98 BiPAP 04/30/17 00:08 94 04/29/17 23:53 BiPAP 04/29/17 23:41 99 99 35 04/29/17 23:02 37.0 125 26 173/80 92 Room Air GENERAL: alert, well appearing, well nourished, no distress, non-toxic EYE EXAM: normal conjunctiva, PERRL and EOM's grossly intact OROPHARYNX: no exudate, no erythema, lips, buccal mucosa, and tongue normal and mucous membranes are moist NECK: supple, no nuchal rigidity, no adenopathy, non-tender LUNGS: +scattered wheezing, Bilateral basilar crackles HEART: no murmurs, S1 normal and S2 normal ABDOMEN: abdomen soft, non-tender, normo-active bowel sounds, no masses, no rebound or guarding. BACK: Back is symmetrical on inspection and there is no deformity UPPER EXTREMITIES: upper extremities are grossly normal. LOWER EXTREMITIES: No pitting edema. NEURO EXAM: Normal sensorium, cranial nerves II-XII grossly intact, normal speech Diagnostics Laboratory Results Results Past 24 Hours Test 04/29/17 23:30 04/29/17 23:52 04/29/17 23:55 04/29/17 23:58 Range/Units White Blood Count 6.18 4.8-10.8 K/uL Red Blood Count 3.58 4.2-5.4 M/uL Hemoglobin 9.3 12.0-16.0 g/dL Hematocrit 30.5 37-47 % Mean Corpuscular Volume 85.2 80-100 fL Mean Corpuscular Hemoglobin 26.0 25-34 pg Mean Corpuscular Hemoglobin Concent 30.5 32-36 g/dl Platelet Count 207 130-400 K/uL Mean Platelet Volume 10.0 7.4-10.4 fL Neutrophils (%) (Auto) 71.3 % Lymphocytes (%) (Auto) 12.6 % Monocytes (%) (Auto) 12.5 % Eosinophils (%) (Auto) 3.1 % Basophils (%) (Auto) 0.3 % Neutrophils # (Auto) 4.41 1.4-6.5 K/uL Lymphocytes # (Auto) 0.78 1.2-3.4 K/uL Monocytes # (Auto) 0.77 0.11-0.59 K/uL Eosinophils # (Auto) 0.19 0-0.5 K/uL Basophils # (Auto) 0.02 0-0.2 K/uL RDW Standard Deviation 58.3 36.4-46.3 fL RDW Coefficient of Variation 18.7 11.5-14.5 % Immature Granulocyte % (Auto) 0.2 % Immature Granulocyte # (Auto) 0.01 0.00-0.02 K/uL Sodium Level 138 136-145 mmol/L Potassium Level 3.9 3.5-5.1 mmol/L Chloride Level 105 98-107 mmol/L Carbon Dioxide Level 23 21-32 mmol/L Anion Gap 10.0 3-11 mmol/L Blood Urea Nitrogen 47 7-18 mg/dl Creatinine 1.82 0.60-1.20 mg/dl Est Creatinine Clear Calc Drug Dose 26.2 ml/min Estimated GFR () 31.2 Estimated GFR (Non- 26.9 BUN/Creatinine Ratio 26.1 10-20 Random Glucose 152 70-99 mg/dl Lactic Acid Level 0.9 0.4-2.0 mmol/L Calcium Level 9.6 8.5-10.1 mg/dl Total Bilirubin 0.5 0.2-1 mg/dl Direct Bilirubin 0.2 0-0.2 mg/dl Aspartate Amino Transf (AST/SGOT) 33 15-37 U/L Alanine Aminotransferase (ALT/SGPT) 25 12-78 U/L Alkaline Phosphatase 141 45-117 U/L Troponin I 0.025 0-0.045 ng/ml Pro-B-Type Natriuretic Peptide 862 0-900 pg/ml Total Protein 8.5 6.4-8.2 gm/dl Albumin 4.0 3.4-5.0 gm/dl Lipase 462 73-393 U/L Digoxin Level 0.4 0.8-2.0 ng/ml Bedside Troponin I < 0.030 0-0.045 ng/ml Venous Blood pH 7.43 7.36-7.41 Venous Blood Partial Pressure CO2 37 38.0-50.0 mmHg Venous Blood Partial Pressure O2 69 mmHg Venous Blood HCO3 24 mmol/L Venous Blood Oxygen Saturation 92.1 % Venous Blood Base Excess -0.6 mEq/L Influenza Type A Antigen Neg for Influ A NEG Influenza Type B Antigen Neg for Influ B NEG Urine Color YELLOW Urine Appearance CLEAR CLEAR Urine pH 5.5 4.5-7.5 Urine Specific [place] 1.012 1.000-1.030 Urine Protein NEG NEG Urine Glucose (UA) NEG NEG Urine Ketones NEG NEG Urine Occult Blood NEG NEG Urine Nitrite NEG NEG Urine Bilirubin NEG NEG Urine Urobilinogen NEG NEG Urine Leukocyte Esterase NEG NEG Urine WBC (Auto) 0 0-5 /hpf Urine RBC (Auto) 0-4 0-4 /hpf Urine Hyaline Casts (Auto) 0 0-5 /lpf Urine Epithelial Cells (Auto) 0-5 0-5 /lpf Urine Bacteria (Auto) NEG NEG Test 2/14/18 00:15 Range/Units Prothrombin Time 28.8 9.0-12.0 SECONDS Prothromb Time International Ratio 2.8 0.9-1.1 Activated Partial Thromboplast Time 35.3 21.0-31.0 SECONDS Partial Thromboplastin Ratio 1.4 Microbiology Results 04/29/17 Blood Culture, Received Pending 04/29/17 Blood Culture, Received Pending Diagnostic Radiology CHEST 2 VIEWS ROUTINE CLINICAL HISTORY: Shortness of breath. Cat bite. COMPARISON STUDY: Chest radiograph January 16, 2017 and March 07, 2017. FINDINGS: Note is made of a single lead left subclavian pacemaker, median sternotomy wires and prosthetic mitral valve. Moderate cardiomegaly is unchanged. There is no pneumothorax. A moderate right pleural effusion has significantly increased in size since exam of January 16, 2017. Associated right basilar opacity is noted. Mild left basilar opacity favors atelectasis. There is pulmonary vascular congestion with mild pulmonary edema. Nipple shadow projects over the left lower lung IMPRESSION: 1. Significant increase in size of a moderate right pleural effusion since chest radiograph of March 07, 2017. 2. Pulmonary vascular congestion with suspected mild pulmonary edema. other No change from prior EKG Impression Assessment and Plan 76 y/o F Hx pulmonary HTN, diastolic CHF, Afib, DM II, mechanical mitral valve, chronic anemia. Pt presented with moderate resp distress - prior to receiving Lasix in the ER she had required BIPAP to maintain an adequate sat. Admit to Tele SOB, AFIB,Diastolic CHF - SOB likely secondary to CHF exacerbation, Pleural effusion - Given 60 mg Lasix in ED - Start IV Lasix 40 mg BID - Continue Digoxin, Metoprolol, Spironolactone - Continue Coumadin - Cardiology consulted -Consider CT surgery consult DMII - glycemic consult HLD - Continue Zetia HTN - Metoprolol Mitral valve s/p replacement - Continue coumadin DVT prophylaxis - Coumadin OE AAO x 3 S1,2 - galop is present - systolic murmur is present No air entry into R base - L lung crackles NT, ND BL 2+ edema No deficits - pulm edema and a large R effusion present on CXR P: Provided with IV Lasix BID - she may require drainage of her effusion - would repeat CXR and determine if this is decreasing with diuresis - she is on Coumadin with an INR of 2.8 and unfortunately would likely require bridging if a subtherapeutic INR is needed for thoracentesis. Placed on SS Anemia is stable Level of Care Telemetry Advanced Directives Existing Advance Directive: No Existing Living Will: No Existing Power of Sample Clerk: No Existing Health Care Proxy: No Resuscitation Status FULL RESUSCITATION VTE Prophylaxis VTE Risk Assessment Done? Y/N: Yes Risk Level: High Given or contraindicated: Warfarin (Coumadin) Social Service Consult None Apply
--- NOTE | 2017-04-30 07:27 | DIAGNOSTIC IMAGING REPORT ---
CHEST ONE VIEW PORTABLE HISTORY: Short of breath. Evaluate Fever/Sepsis COMPARISON: Chest 04/29/2017. FINDINGS: Left-sided single lead pacemaker. Cardiac valve prosthesis and postoperative changes. The heart remains mildly enlarged. Mild diffuse interstitial thickening suggestive of mild congestive change. This is not significantly changed. Small to moderate right pleural effusion and bibasilar densities persist. IMPRESSION: 1. No change compared to the prior study. 2. Mild pulmonary edema persists. 2. Small to moderate right pleural effusion and bibasilar densities are again noted. Electronically signed by: Lalito Villavicencio M.D. 04/30/2017 7:25 AM Dictated Date/Time: 04/30/2017 7:24 AM
[2017-04-30] MEDS: ALBUT/IPRATROP 3MG/0.5MG NEB 3 ML VIAL INH SCH ×4 (07:29→19:57)
[2017-04-30] MEDS: SPIRONOLACTONE 25 MG TAB PO SCH (07:44)
[2017-04-30] MEDS: CEFUROXIME AXETIL 500 MG TAB PO SCH ×2 (07:44→20:48)
[2017-04-30] MEDS: FEXOFENADINE HCL 180 MG TAB PO SCH (07:44)
[2017-04-30] MEDS: MONTELUKAST SOD 10 MG TAB PO SCH (07:45)
[2017-04-30] MEDS: METOPROLOL SUCC 50MG EXT REL TAB PO SCH (07:45)
[2017-04-30] MEDS: FUROSEMIDE INJ 40 MG in SYRINGE 0 ML IV SCH ×2 (08:12→20:48)
[2017-04-30] MEDS ORDERED: NON-FORMULARY MEDICATION (Doxycycline Hyclate 1 TAB) PO SCH (09:00)
--- NOTE | 2017-04-30 09:14 | Pharmacy Progress Note ---
Glycemic Control Intl Consult Date of Service Apr 30, 2017. Scope Glycemic Pharmacist consulted by Dr Chau on 04/30/17 for glycemic control and to write orders per [facility] inpatient glycemic control protocol Objective Weight (Kilograms): 75.700 Accuchecks BSG (last 24hrs): Test 04/29/17 23:30 Random Glucose 152 mg/dl (70-99) Laboratory Data (last 24hrs) Test 04/29/17 23:30 Anion Gap 10.0 mmol/L BUN/Creatinine Ratio 26.1 Blood Urea Nitrogen 47 mg/dl Creatinine 1.82 mg/dl Potassium Level 3.9 mmol/L Sodium Level 138 mmol/L White Blood Count 6.18 K/uL Red Blood Count 3.58 M/uL Hemoglobin 9.3 g/dL Hematocrit 30.5 % Mean Corpuscular Volume 85.2 fL Mean Corpuscular Hemoglobin 26.0 pg Mean Corpuscular Hemoglobin Concent 30.5 g/dl Platelet Count 207 K/uL Mean Platelet Volume 10.0 fL Neutrophils (%) (Auto) 71.3 % Lymphocytes (%) (Auto) 12.6 % Monocytes (%) (Auto) 12.5 % Eosinophils (%) (Auto) 3.1 % Basophils (%) (Auto) 0.3 % Neutrophils # (Auto) 4.41 K/uL Lymphocytes # (Auto) 0.78 K/uL Monocytes # (Auto) 0.77 K/uL Eosinophils # (Auto) 0.19 K/uL Basophils # (Auto) 0.02 K/uL Recent Pertinent Medications Outpatient Anti-diabetic Regimen: * Lantus 15 units SQ BID * Novolog SSI: 0-12 units for BSG > 150 (CF= 30) * pt reports rarely using Novolog * A1c = 6.6 % 01/13/17 Assessment & Plan ASSESSMENT: * 76 yr old T2DM female admitted with SOB likely secondary to CHF exacerbation and right pleural effusion. * Patient takes about 30 units of insulin per day as an outpatient and reports last taking Lantus on 2/12 PM (30 units is 100% basal - pt reports rarely using Novolog). * Will redistribute regimen while inpatient to avoid hypo/hyper-glycemia. * Since patient is basal deficient, I have ordered a one time dose of Lantus 15 units. Further Lantus doses will be based on home regimen split 50% basal and 50% bolus (30 units/day -> 15 units of basal -> ~8 units BID) * A conservative carb ratio will be utilized since patient does not require carb coverage at home - this may need to be tightened tomorrow PLAN FOR INPATIENT GLYCEMIC CONTROL: * Basal insulin * Lantus 15 units x 1, then 8 units SQ BID * Bolus Insulin * NOVOLOG per scale ACHS or Q6hrs while NPO * Goal Range: Low 110 mg/dL - High 140 mg/dL * Correction Factor: 30 mg/dL/unit * Nutritional / Prandial insulin per carb ratio of 1 unit per 15 grams CHO consumed * Please note that the plan above was derived based on current level of insulin resistance and hospital stress. These recommendations are appropriate for inpatient admission only. Plan of care upon discharge will need to be reassessed to avoid potential outpatient hypo/hyperglycemia. Thank you.
[2017-04-30] MEDS ORDERED: GLUCOSE 40% GEL 15 GM TUBE PO PRN (09:30)
[2017-04-30] MEDS ORDERED: GLUCAGON FOR INJ 1 MG VIAL SQ PRN (09:30)
[2017-04-30] MEDS ORDERED: GLUCOSE 10 TABS/TUBE PO PRN (09:30)
[2017-04-30] MEDS ORDERED: DEXTROSE 50% 50 ML SYR IV PRN (09:30)
[2017-04-30] MEDS: INSULIN ASPART 100 UNITS/ML 3 ML PEN SC SCH ×3 (12:23→20:50)
[2017-04-30] MEDS ORDERED: INSULIN GLARGINE SOLOSTAR 100 UNITS/ML 3 ML PEN SC ONE (14:30)
[2017-04-30] MEDS: DIGOXIN 0.125 MG TAB PO SCH (15:30)
[2017-04-30] MEDS ORDERED: WARFARIN SOD 4 MG TAB PO SCH ×2 (16:00)
--- NOTE | 2017-04-30 18:26 | ECHOCARDIOGRAM REPORT ---
*NOTICE TO RECEIVING CONSTITUTION PARTY AGENCY This information is strictly Confidential and protected under [place] law. [place] law prohibits you from making any further disclosure of this information unless further disclosure is expressly permitted by the written consent of the person to whom it pertains or is authorized by law. A general authorization for the release of medical or other information is not sufficient for this purpose. Hospital accepts no responsibility if the information is made available to any other person, INCLUDING THE PATIENT. Interpretation Summary * Name: MAGNUS ZIEGLER Study Date: 04/30/2017 07:50 AM BP: 159/74 mmHg * Patient Location: [facility] HR: 94 * : 1940 (M/d/yyyy) Gender: Female Height: 62 in * Age: 76 yrs Ethnicity: CA Weight: 164 lb * Ordering Physician: Montez Chau * Referring Physician: Self, Referred * Performed By: Ivana Harkins RDCS * * Reason For Study: Congestive Heart Failure * BSA: 1.8 m2 * -- Conclusions -- * 1. Normal LV size. Moderate concentric LVH. * 2. Normal LV systolic function. LVEF 60-65%. Flattened septum consistent with RV pressure overload. * 3. Mildly dilated RV with borderline function. * 4. Mechanical mitral valve prosthesis. Transvalvular gradients suggestive of stenosis. (PV 2.5, MG 8, P1/2T 94). No significant mitral regurgitation. * 5. Severe left atrial enlargement * 6. Mild aortic regurgitation. Aortic valve sclerosis without stenosis. * 7. Moderate to severe tricuspid regurgitation. * 8. Moderate pulmonary hypertension. Estimated PASP 55-60. Dilated IVC, estimated RA 15. * 9. Trivial pericardial effusion. * 9. Compared with prior study on 01/13/2017: Aortic regurgitation better appreciated. Mitral valve transvalvular gradients reduced. Procedure Details * A complete two-dimensional transthoracic echocardiogram was performed (2D, M-mode, Doppler and color flow Doppler). Left Ventricle * The left ventricle is grossly normal size. * There is moderate concentric left ventricular hypertrophy. * Ejection Fraction = 60-65%. * Flattened septum is consistent with RV pressure overload. Right Ventricle * There is a pacemaker lead in the right ventricle. * The right ventricle is mildly dilated. * The right ventricular systolic function is borderline reduced. Atria * The left atrium is severely dilated. * The right atrium is mildly dilated. * There is no evidence of atrial septal defect, but resolution does not allow assessment for a patent foramen ovale. Mitral Valve * Significant mitral regurgitation is absent. * There is a mechanical mitral valve. * Doppler suggestive of stenosis. PV 2.5, MG 8, P1/2T 94 Tricuspid Valve * The tricuspid valve is not well visualized. * There is moderate tricuspid regurgitation. * Right ventricular systolic pressure is elevated at 50-60mmHg. Aortic Valve * The aortic valve is trileaflet. * Aortic valve sclerosis mild, without significant aortic valvular stenosis. * No hemodynamically significant valvular aortic stenosis. * Mild aortic regurgitation. Pulmonic Valve * The pulmonary valve is inadequately visualized, but the Doppler data is adequate for interpretation. * Pulmonic stenosis is absent. * There is no significant pulmonary regurgitation. Great Vessels * The aortic root and proximal ascending aorta are normal sized. Pericardium/Pleural * Trivial pericardial effusion Great Vessels * Dilated inferior vena cava with reduced collapsability with sniff indicates an elevated right atrial pressure of 15 mmHg MMode 2D Measurements and Calculations IVSd 1.1 cm IVSs 1.5 cm LVIDd 4.4 cm LVIDs 2.7 cm LVPWd 1.5 cm LVPWs 2.4 cm IVS/LVPW 0.75 FS 37.6 % EDV(Teich) 86.3 ml ESV(Teich) 27.7 ml EF(Teich) 67.9 % EDV(cubed) 83.4 ml ESV(cubed) 20.3 ml EF(cubed) 75.7 % % IVS thick 33.5 % % LVPW thick 53.2 % LV mass(C)d 222.4 grams LV mass(C)dI 126.6 grams/m\S\2 LV mass(C)s 223.5 grams LV mass(C)sI 127.2 grams/m\S\2 SV(Teich) 58.6 ml SI(Teich) 33.3 ml/m\S\2 SV(cubed) 63.1 ml SI(cubed) 35.9 ml/m\S\2 Ao root diam 2.6 cm Ao root area 5.2 cm\S\2 ACS 1.3 cm LA dimension 5.6 cm LA/Ao 2.2 LVOT diam 1.8 cm LVOT area 2.6 cm\S\2 LVAd ap4 26.5 cm\S\2 LVLd ap4 8.0 cm EDV(MOD-sp4) 74.8 ml EDV(sp4-el) 74.5 ml LVAs ap4 15.4 cm\S\2 LVLs ap4 7.7 cm ESV(MOD-sp4) 28.2 ml ESV(sp4-el) 26.1 ml EF(MOD-sp4) 62.2 % EF(sp4-el) 64.9 % LVAd ap2 22.2 cm\S\2 LVLd ap2 7.2 cm EDV(MOD-sp2) 65.3 ml EDV(sp2-el) 57.6 ml LVAs ap2 13.3 cm\S\2 LVLs ap2 6.0 cm ESV(MOD-sp2) 26.9 ml ESV(sp2-el) 24.8 ml EF(MOD-sp2) 58.8 % EF(sp2-el) 56.9 % LVLd %diff -10.37 % EDV(MOD-bp) 71.7 ml LVLs %diff -27.51 % ESV(MOD-bp) 30.9 ml EF(MOD-bp) 56.9 % SV(MOD-sp4) 46.5 ml SI(MOD-sp4) 26.5 ml/m\S\2 SV(MOD-sp2) 38.4 ml SI(MOD-sp2) 21.9 ml/m\S\2 SV(MOD-bp) 40.8 ml SI(MOD-bp) 23.2 ml/m\S\2 SV(sp4-el) 48.4 ml SI(sp4-el) 27.6 ml/m\S\2 SV(sp2-el) 32.7 ml SI(sp2-el) 18.6 ml/m\S\2 Doppler Measurements and Calculations MV E max jacqueline 229.1 cm/sec MV V2 max 250.7 cm/sec MV max PG 25.1 mmHg MV V2 mean 123.9 cm/sec MV mean PG 8.2 mmHg MV V2 VTI 47.3 cm MV P1/2t max jacqueline 229.9 cm/sec MV P1/2t 93.9 msec MVA(P1/2t) 2.3 cm\S\2 MV dec slope 716.8 cm/sec\S\2 MV dec time 0.31 sec Ao V2 max 163.1 cm/sec Ao max PG 10.7 mmHg Ao max PG (full) 6.4 mmHg JAC(V,A) 1.6 cm\S\2 JAC(V,D) 1.6 cm\S\2 AI max jacqueline 368.9 cm/sec AI max PG 54.5 mmHg AI dec slope 215.6 cm/sec\S\2 AI P1/2t 501.1 msec LV V1 max PG 4.3 mmHg LV V1 max 103.5 cm/sec PA V2 max 95.8 cm/sec PA max PG 3.7 mmHg TR max jacqueline 317.1 cm/sec
--- NOTE | 2017-04-30 18:31 | CARDIOLOGY CONSULTATION ---
DATE OF CONSULTATION: 04/30/2017 PERTINENT HISTORY: Mrs. Morales is a 76-year-old white female with a complex past medical history. She was admitted yesterday with the presumptive diagnosis of congestive heart failure. This consultation was ordered to assist in her management. The patient claims she was in her usual state of marginal health until approximately 2-3 weeks prior to her presentation. She began to note progressive exertional dyspnea and fatigue. She was seen by Phoenix Klein last week and her diuretic dose was increased as the chest x-ray noted a right-sided pleural effusion. She was also having drainage from an injury to her right lower extremity from her cat. This was draining a serous type fluid. She was started on doxycycline for the possibility of a cellulitis. On presentation here, the patient was apparently in moderate respiratory distress. Room air saturations were 92%. She was placed on BiPAP. She received intravenous diuretics and improved. Of note, the patient has been doing well in terms of volume management as an outpatient. Her "dry weight" is 161 pounds at home. She typically administers Lasix 40 mg daily with an additional 20 mg dose if needed for weight gain. She has not required an additional dose in several months. The patient has not experienced any PND or orthopnea. She is able to sleep with 1 pillow, even the evening prior to presentation. She denies exertional chest pain. She also denies syncope, presyncope, change in lower extremity edema and claudication. Currently, the patient is resting comfortably in bed and without complaints. She is completely supine. PAST MEDICAL HISTORY: 1. Mitral valve replacement -- 1985 -- Dowd-Lee valve. 2. Nonobstructive coronary artery disease -- June 2006. 3. History of diastolic CHF. 4. Normal LV function - 60-65% -- December 2016. 5. Moderate LVH. 6. Severe pulmonary hypertension -- December 2016. 7. Right ventricular dysfunction -- December 2016. 8. Mild aortic insufficiency -- December 2016. 9. Permanent atrial fibrillation. 10. Hypertension. 11. VVI pacemaker - 1993, January 2009. 12. 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 13. Diabetes mellitus. 14. Diabetic neuropathy. 15. COPD. 16. Crohn's disease. 17. Chronic renal failure. 18. Esophageal reflux. 19. Hypothyroidism. 20. History of breast carcinoma -- status post lumpectomy. 21. History of GI bleeding -- colonoscopy biopsy site -- 2011. 22. History of pancreatitis. 23. Diffuse lipomas. 24. Cholecystectomy. 25. Hysterectomy. MEDICATIONS: 1. Lasix 40 mg IV b.i.d. 2. Toprol-XL 100 mg per day. 3. Aldactone 25 mg daily. 4. Coumadin 4 mg daily except 2 mg on Mondays and Saturdays. 5. Zetia 10 mg daily. 6. Lopid 600 mg b.i.d. -- on hold. 7. Digoxin 0.125 mg daily. 8. Imdur 30 mg daily -- on hold. 9. Hydralazine 25 mg b.i.d. -- on hold. 10. Lantus insulin -- on hold. 11. Synthroid 0.175 mg daily. 12. DuoNeb q.i.d. 13. Ceftin 500 mg b.i.d. 14. Singulair 10 mg per day. 15. Vickie 180 mg per day. ALLERGIES: 1. ASPIRIN. 2. ATORVASTATIN. 3. DILTIAZEM. 4. LEVAQUIN. 5. NONSTEROIDAL AGENTS. 6. NORTRIPTYLINE. 7. PENICILLIN. 8. QUINIDINE. SOCIAL HISTORY: The patient is and lives with her . Does not use tobacco or alcohol. FAMILY HISTORY: Noncontributory. REVIEW OF SYSTEMS: A 10-point review of systems is negative except for that described above. PHYSICAL EXAMINATION: GENERAL: This is an obese white female seated in chair without complaints. VITAL SIGNS: Blood pressure is 120/68 with an irregular pulse of 60. Respiratory rate is 18 and the patient is afebrile at 36.9 degrees Celsius. Saturation is 94% on room air. HEENT: Negative. NECK: Supple. Full carotid upstrokes. No carotid bruits. Jugular venous pressure is flat at 90 degrees. There is no thyromegaly. CARDIOVASCULAR: Reveals a regular rhythm with crisp mechanical valve sounds. A 1/6 basal systolic ejection murmur is noted. LUNGS: Clear without rales, rhonchi, or wheezes. ABDOMEN: Obese without bruits. CHEST: Reveal a palpable pacemaker in the subclavicular region. EXTREMITIES: Reveal intact radial artery pulses bilaterally. 1+ pretibial edema is noted. LABORATORY DATA: CBC notes hemoglobin of 9.3, hematocrit 30.5, white count 6.1, platelet count 207,000. Electrolytes note a sodium of 138, potassium 3.9, chloride 105, bicarbonate 23, BUN 47, creatinine 1.8, glucose 152. Initial troponin normal at 0.025 with a followup value of 0.03. INR is 2.8. Digoxin level is therapeutic at 0.4. Influenza A and B negative. EKG notes atrial fibrillation and a complete right bundle branch block. Chest x-ray notes mild pulmonary edema, cardiomegaly, and a right pleural effusion. BNP is normal at 862. IMPRESSION: Mrs. Morales was admitted with respiratory distress and mild hypervolemia. It does not appear that she was in florid congestive failure as her BNP was normal. Furthermore, leading up to this presentation, the patient has been sleeping completely supine footing against significant hypervolemia. PLAN: 1. Agree with intravenous diuresis for now. 2. Continue usual outpatient cardiac medications. 3. Further recommendations depending on her clinical course.
--- NOTE | 2017-04-30 18:43 | SURGICAL CONSULTATION ---
DATE OF CONSULTATION: 04/30/2017 REASON FOR CONSULTATION: Right pleural effusion. HISTORY OF PRESENT ILLNESS: Crystal Holder is a 76-year-old female that I know of. She has multiple medical issues including atrial fibrillation with chronic renal failure who had a pleural effusion last year. Back in July of last year, I performed a thoracentesis of her right pleural fluid and her fluid drained quite nicely. She felt much better. Fluid reaccumulated and I offered her a PleurX catheter, but she refused. I followed her in the office and was quite surprised to see her x-ray had actually improved. For this reason, I elected not to place the catheter. I have not seen her in several months. Back on June 28 of last year, I performed a thoracentesis for 1500 mL of fluid and this was a transudate. We never grew out any organisms and the cytology was benign. The patient presented back recently with difficulty breathing. She was seen by her primary care provider Phoenix Klein, yesterday and he was concerned about this pleural effusion. This fluid has not improved dramatically, although she had some fluid. She also had swelling of her lower extremities. Her breathing is much better now. I was asked to see her about possibly addressing this fluid. The patient is currently on room air. She is awake and conversant. We had a very long discussion about this today. She is on Coumadin and her INR is 2.3 today. PAST MEDICAL HISTORY: 1. Recurrent urinary tract infection. 2. Pancreatitis in the past. 3. Atrial fibrillation. 4. Chronic renal insufficiency. 5. Deep venous thrombosis in the past. 6. Diabetes mellitus. 7. Cerebrovascular disease with cerebrovascular accident. 8. History of cigarette smoking. 9. Chronic obstructive pulmonary disease. 10. Peptic ulcer disease in the past. 11. Mitral valve disease. 12. Cholelithiasis in the past. PAST SURGICAL HISTORY: 1. Midline sternotomy in 1985 insertion of a Dowd-Lee mitral valve prostheses. 2. Right thoracentesis in 2017. 3. Cholecystectomy. 4. 2, para 2, aborta 0. 5. Insertion of a pacemaker. SOCIAL HISTORY: The patient cares for her at home with his primary caregiver. She has not smoked cigarettes in many, many years. FAMILY MEDICAL HISTORY: Significant for 2 children, 6 grandchildren, all are healthy. Her mother from lung cancer. REVIEW OF SYSTEMS: The patient states she has been doing "pretty good" although she had an x-ray which shows some fluid back in February. She states that her breathing was quite bad recently, but this is much better now and she has diuresed and her swelling in the lower extremities also improved. The patient states her weight has been relatively stable. She does have dyspnea on exertion. She has had no fevers, although she had been treated for pneumonia and urinary tract infections in the past. She has had no wound breakdown. She had no visual or auditory symptoms. Neurologically, she has been stable. PHYSICAL EXAMINATION: GENERAL: This is an ill-appearing elderly female who is awake and alert. HEENT: His extraocular movements are intact. Tongue is midline. Oral mucosa is moist. NECK: She has no lymphadenopathy. She does have some distended neck veins at 30 degrees. CHEST: Her sternotomy incision is well healed. She has no click, although she does have a click from her Dowd-Lee valve. HEART: She has an irregularly regular rhythm. LUNGS: She has decreased breath sounds in both bases, right a little worse. She has no wheezing. ABDOMEN: Soft, nontender. EXTREMITIES: She does have between 1 and 2+ edema. The feet are warm and well perfused. NEUROLOGIC: She is awake, alert and really does not have any focal deficits. IMPRESSION AND PLAN: We reviewed her x-ray and quite frankly she has a relatively small effusion. Her INR was 2.3. I think we could perform a thoracentesis. I would be less eager to put a PleurX catheter in as she responded so well to a thoracentesis last spring. We will check a PT/INR in and an x-ray in the morning.
[2017-04-30 19:27] LABS: BASO % 0.5 %; BASO ABS # 0.03 K/uL (0-0.2); EOS ABS # 0.12 K/uL (0-0.5); HEMATOCRIT 28.9 % (37-47); HEMOGLOBIN 8.7 g/dL (12.0-16.0); IG# 0.01 K/uL (0.00-0.02); LYMPH % 13.7 %; LYMPH ABS # 0.84 K/uL (1.2-3.4); MEAN CELL VOLUME 85.5 fL (80-100); MEAN CORPUSCULAR HEMOGLOBIN 25.7 pg (25-34); MEAN CORPUSCULAR HGB CONC 30.1 g/dl (32-36); MEAN PLATELET VOLUME 9.7 fL (7.4-10.4); MONO % 11.6 %; MONO ABS # 0.71 K/uL (0.11-0.59); PLATELET COUNT 186 K/uL (130-400); RED CELL DISTRIBUTION WIDTH CV 18.7 % (11.5-14.5); RED CELL DISTRIBUTION WIDTH SD 58.7 fL (36.4-46.3); WHITE BLOOD COUNT 6.11 K/uL (4.8-10.8)
[2017-04-30 19:37] LABS: INR 2.3 (0.9-1.1); PTT PATIENT 33.4 SECONDS (21.0-31.0)
[2017-04-30 19:42] LABS: CALCIUM 9.1 mg/dl (8.5-10.1); CREATININE 2.13 mg/dl (0.60-1.20); POTASSIUM 4.2 mmol/L (3.5-5.1)
[2017-04-30 19:49] LABS: POTASSIUM 4.1 mmol/L (3.5-5.1)
[2017-04-30] MEDS: EZETIMIBE 10MG TAB PO SCH (20:48)
[2017-04-30] MEDS: INSULIN GLARGINE SOLOSTAR 100 UNITS/ML 3 ML PEN SC SCH (20:50)
[2017-04-30] MEDS ORDERED: DIAZEPAM 5MG TAB PO ONE (22:30)
--- NOTE | 2017-04-30 23:43 | Family Medicine Progress Note ---
Progress Note Date of Service Apr 30, 2017. Subjective Pt evaluation today including: conversation w/ patient, physical exam, chart review, lab review, review of studies Pain: Patient reports discomfort from cat bite PO Intake: tolerating well Voiding: diaz catheter in place Patient states she does not feel she is in CHF exacerbation, thinks she has pneumonia. States her leg is draining excessively from cat bite Constitutional: No fever, No chills, No sweats, No weight loss, No weakness , No fatigue, No problem reported Respiratory: + shortness of breath, + dyspnea on exertion Cardiovascular: + edema, No orthopnea Abdomen: + nausea (resolved after stopping doxycyclie), No see HPI, No pain , No vomiting, No diarrhea, No constipation, No GI bleeding, No problem reported Skin: + problem reported (Wound on right villareal from recent ruthie bite) All Other Systems: Reviewed and Negative Medications Current Inpatient Medications Medications (Trade) Dose Ordered Sig/Albin Route Start Time Stop Time Status Last Admin Dose Admin Acetaminophen (Tylenol Tab) 650 mg Q4H PRN PO 04/30/17 02:30 05/30/17 02:29 Al Hydrox/Mg Hydrox/Simethicone (Maalox Max Susp) 15 ml Q4H PRN PO 04/30/17 02:30 05/30/17 02:29 Magnesium Hydroxide (Milk Of Magnesia Susp) 30 ml Q12H PRN PO 04/30/17 02:30 05/30/17 02:29 Ondansetron HCl (Zofran Inj) 4 mg Q6H PRN IV 04/30/17 02:30 05/30/17 02:29 04/30/17 17:17 4 MG Polyethylene (Miralax Powder Packet) 17 gm DAILY PRN PO 04/30/17 02:30 05/30/17 02:29 Digoxin (Lanoxin Tab) 0.125 mg DAILY@1600 PO 04/30/17 16:00 05/30/17 15:59 04/30/17 15:30 0.125 MG EZETIMIBE (Zetia Tab) 10 mg HS PO 04/30/17 21:00 05/30/17 20:59 04/30/17 20:48 10 MG Fexofenadine HCl (Vickie Tab) 180 mg QAM PO 04/30/17 09:00 05/30/17 08:59 04/30/17 07:44 180 MG Levothyroxine Sodium (Synthroid Tab) 175 mcg DAILYBB PO 04/30/17 06:00 05/30/17 06:59 Metoprolol Succinate (Toprol Xl Tab) 100 mg DAILY PO 04/30/17 09:00 05/30/17 08:59 04/30/17 07:45 100 MG Montelukast Sodium (Singulair Tab) 10 mg QAM PO 04/30/17 09:00 05/30/17 08:59 04/30/17 07:45 10 MG Albuterol/ Ipratropium (Duoneb) 3 ml QIDR INH 04/30/17 08:00 05/30/17 07:59 04/30/17 19:57 3 ML Spironolactone (Aldactone Tab) 50 mg DAILY PO 04/30/17 09:00 05/30/17 08:59 04/30/17 07:44 50 MG Furosemide 40 mg/ Syringe 4 ml @ 4 mls/min BID IV 04/30/17 09:00 05/30/17 08:59 04/30/17 20:48 4 MLS/MIN Miscellaneous Information (Consult Glycemic Management Pharmacy) 1 ea UD PRN N/A 04/30/17 03:30 05/30/17 03:29 Cefuroxime Axetil (Ceftin Tab) 500 mg BID PO 04/30/17 09:00 05/10/17 08:59 04/30/17 20:48 500 MG Insulin Aspart (novoLOG ASPART) SLIDING SCALE ACHS SC 04/30/17 11:00 05/30/17 10:59 04/30/17 20:50 2 UNITS Glucose (Glucose 40% Gel) 15-30 GRAMS 15 GRAMS... UD PRN PO 04/30/17 09:30 05/30/17 09:29 Glucose (Glucose Chew Tab) 4-8 Tablets 4 Tabl... UD PRN PO 04/30/17 09:30 05/30/17 09:29 Dextrose (Dextrose 50% 50ML Syringe) 25-50ML OF 50% DW IV FOR... UD PRN IV 04/30/17 09:30 05/30/17 09:29 Glucagon (Glucagon Inj) 1 mg UD PRN SQ 04/30/17 09:30 05/30/17 09:29 Warfarin Sodium (Coumadin Tab) 2 mg SuTh@1600 PO 05/01/17 16:00 05/31/17 15:59 Future Hold Warfarin Sodium (Coumadin Tab) 4 mg MoTuWeFrSa@1600 PO 04/30/17 16:00 05/30/17 15:59 Future Hold Insulin Glargine (Lantus Solostar Pen) 8 units BID SC 04/30/17 21:00 05/30/17 20:59 04/30/17 20:50 8 UNITS Objective Vital Signs Date Time Temp Pulse Resp B/P (MAP) Pulse Ox O2 Delivery O2 Flow Rate FiO2 04/30/17 20:30 69 18 94 Room Air 04/30/17 20:27 36.9 74 22 116/49 (71) 91 Nasal Cannula 2.0 04/30/17 20:00 94 Nasal Cannula 2.0 04/30/17 16:30 37.2 85 16 116/62 (80) 92 Room Air 04/30/17 16:00 95 Room Air 04/30/17 15:30 65 04/30/17 14:32 60 18 93 Room Air 04/30/17 12:00 94 Room Air 04/30/17 11:26 36.8 73 18 133/69 (90) 93 Room Air 04/30/17 11:21 74 18 94 Room Air 04/30/17 08:00 94 Room Air 04/30/17 07:47 36.6 110 18 153/67 (95) 94 1.5 04/30/17 07:35 106 18 95 Room Air 04/30/17 05:24 37.0 94 18 159/74 95 Nasal Cannula 2.0 04/30/17 03:07 86 18 113/60 100 Nasal Cannula 4.0 04/30/17 02:40 100 21 98 Nasal Cannula 4.0 04/30/17 02:31 146/78 04/30/17 02:10 79 22 98 Nasal Cannula 4.0 04/30/17 02:01 102/83 04/30/17 01:40 105 16 98 Nasal Cannula 4.0 04/30/17 01:37 84 18 135/85 100 Nasal Cannula 4.0 04/30/17 00:16 88 24 150/75 100 BiPAP 35 04/30/17 00:14 98 BiPAP 04/30/17 00:08 94 04/29/17 23:53 BiPAP 04/29/17 23:41 99 99 35 Physical Exam General Appearance: WD/WN, no apparent distress Eyes: normal inspection, PERRL, EOMI, sclerae normal ENT: hearing grossly normal, pharynx normal Neck: supple, no adenopathy, no carotid bruits, trachea midline, + JVD Respiratory/Chest: chest non-tender, no respiratory distress, no accessory muscle use, + decreased breath sounds (right moreso than left), + crackles (r>L) Cardiovascular: + systolic murmur, + irregularly irregular, + pertinent finding (Mechanical mitral valve, pacemaker) Abdomen: normal bowel sounds, non tender, soft Extremities: non-tender, no calf tenderness, + pedal edema (2+ bilateraly), + pertinent finding (small wound from recent cat bite) Neurologic/Psychiatric: 3d technologist II-XII nml as tested, no motor/sensory deficits, alert, normal mood/affect, oriented x 3 Skin: normal color, + pertinent finding (wount as above) Laboratory Results Last Resulted 04/30/17 19:15 Red Blood Count 3.38, Mean Corpuscular Volume 85.5, Mean Corpuscular Hemoglobin 25.7, Mean Corpuscular Hemoglobin Concent 30.1, Mean Platelet Volume 9.7, Neutrophils (%) (Auto) 72.0, Lymphocytes (%) (Auto) 13.7, Monocytes (%) (Auto) 11.6, Eosinophils (%) (Auto) 2.0, Basophils (%) (Auto) 0.5, Neutrophils # (Auto ) 4.40, Lymphocytes # (Auto) 0.84, Monocytes # (Auto) 0.71, Eosinophils # (Auto ) 0.12, Basophils # (Auto) 0.03 Last Resulted 04/30/17 19:15 Past 24 Hours Test 04/30/17 00:15 04/30/17 19:15 Range/Units Prothromb Time International Ratio 2.8 H 2.3 H 0.9-1.1 Prothrombin Time 28.8 H 24.0 H 9.0-12.0 SECONDS Assessment and Plan 76 y/o F Hx pulmonary HTN, diastolic CHF, Afib, DM II, mechanical mitral valve, pacemaker, chronic anemia. Pt presented with moderate resp distress - prior to receiving Lasix in the ER she had required BIPAP to maintain an adequate sat. She has been weaned off of oxygen at this point. Dyspnea/Diastolic CHF/Pleural effusion - SOB unlikely florid CHF exacerbation - Given 60 mg Lasix in ED, Started IV Lasix 40 mg BID - Continue Digoxin, Metoprolol, Spironolactone - Hold Coumadin until determine if thoracentesis will be performed - Cardiology consulted, appreciate recs Echo ordered: 1. Normal LV size. Moderate concentric LVH, Normal LV systolic function. LVEF 60-65%. Flattened septum consistent with RV pressure overload. 2. Mildly dilated RV with borderline function, Mechanical mitral valve prosthesis. Transvalvular gradients suggestive of stenosis. 3. Severe left atrial enlargement, Mild aortic regurgitation. Aortic valve sclerosis without stenosis, Moderate to severe tricuspid regurgitation. 4. Moderate pulmonary hypertension. Estimated PASP 55-60. Dilated IVC, estimated RA 15. - CT surgery consult: patient to be evaluated for possible thoracentesis - Patient has mechanical mitral valve: goal INR 2.5-3.5; will require heparin bridge tomorrow if INR <2.5 for thoracentesis AFIB -Continue home meds, coumadin as above DMII - ISS - home meds held HLD - Continue Zetia HTN - Metoprolol Mitral valve s/p replacement - Continue coumadin, but held until further notice of thoracentesis DISPO: tele DVTP: coumadin CODE: FULL Resident Tracking Resident Involvement: Resident Care Provided Care Provided: Adult Hospital Medicine
[2017-05-01] VITALS (11 sets, daily range): BP systolic 106–119; BP diastolic 44–63; PULSE 62–84; TEMP 36.3–37.6; O2SAT 91–98
[2017-05-01] MEDS: LEVOTHYROXINE 175 MCG TAB PO SCH (06:28)
[2017-05-01] MEDS: ALBUT/IPRATROP 3MG/0.5MG NEB 3 ML VIAL INH SCH ×3 (07:12→16:00)
[2017-05-01 07:16] LABS: BASO % 0.5 %; BASO ABS # 0.03 K/uL (0-0.2); EOS % 4.5 %; EOS ABS # 0.28 K/uL (0-0.5); HEMATOCRIT 29.1 % (37-47); HEMOGLOBIN 8.7 g/dL (12.0-16.0); IG# 0.01 K/uL (0.00-0.02); LYMPH % 11.8 %; LYMPH ABS # 0.74 K/uL (1.2-3.4); MEAN CELL VOLUME 85.6 fL (80-100); MEAN CORPUSCULAR HEMOGLOBIN 25.6 pg (25-34); MEAN CORPUSCULAR HGB CONC 29.9 g/dl (32-36); MEAN PLATELET VOLUME 9.5 fL (7.4-10.4); MONO % 16.2 %; MONO ABS # 1.02 K/uL (0.11-0.59); NEUT % 66.8 %; PLATELET COUNT 185 K/uL (130-400); RED CELL DISTRIBUTION WIDTH CV 18.9 % (11.5-14.5); RED CELL DISTRIBUTION WIDTH SD 59.7 fL (36.4-46.3); WHITE BLOOD COUNT 6.28 K/uL (4.8-10.8)
[2017-05-01 07:30] LABS: CREATININE 2.31 mg/dl (0.60-1.20)
[2017-05-01 07:31] LABS: CALCIUM 8.9 mg/dl (8.5-10.1); POTASSIUM 4.2 mmol/L (3.5-5.1)
[2017-05-01] MEDS: CEFUROXIME AXETIL 500 MG TAB PO SCH ×2 (07:41→21:20)
[2017-05-01] MEDS: SPIRONOLACTONE 25 MG TAB PO SCH (07:41)
[2017-05-01] MEDS: FUROSEMIDE INJ 40 MG in SYRINGE 0 ML IV SCH (07:41)
[2017-05-01] MEDS: FEXOFENADINE HCL 180 MG TAB PO SCH (07:41)
[2017-05-01] MEDS: METOPROLOL SUCC 50MG EXT REL TAB PO SCH (07:42)
[2017-05-01] MEDS: MONTELUKAST SOD 10 MG TAB PO SCH (07:42)
[2017-05-01] MEDS: INSULIN ASPART 100 UNITS/ML 3 ML PEN SC SCH ×4 (07:47→21:00)
[2017-05-01] MEDS: INSULIN GLARGINE SOLOSTAR 100 UNITS/ML 3 ML PEN SC SCH ×2 (07:48→21:22)
--- NOTE | 2017-05-01 08:04 | DIAGNOSTIC IMAGING REPORT ---
CHEST ONE VIEW PORTABLE CLINICAL HISTORY: Pleural effusion, for possible thoracentesis 05/01. COMPARISON STUDY: Chest radiograph April 29, 2017. FINDINGS: Note is made of a single lead left subclavian pacemaker, median sternotomy wires and a prosthetic mitral valve. Moderate cardiomegaly is unchanged. There is no pneumothorax. Pulmonary edema has slightly improved. A small to moderate right pleural effusion has slightly decreased. Linear bilateral opacities favor atelectasis. IMPRESSION: 1. Small to moderate right pleural effusion, slightly decreased since prior exam. 2. Mild improvement in pulmonary edema. Electronically signed by: Randy Melton M.D. 05/01/2017 8:03 AM Dictated Date/Time: 05/01/2017 8:01 AM
--- NOTE | 2017-05-01 08:36 | Clinical Documentation Query ---
TEE Kee : CLINICAL DOCUMENTATION QUERIES QUERY 1 OF 2 Patient is a 76 year old female admitted for treatment of diastolic CHF. H&P notes history of CKD, not otherwise specified. Estimated GFR range < 30 ml/min dating back to 05/03. Please clarify as clinically appropriate. Thank you. In your clinical opinion is this patient being managed for: ( ) Chronic kidney disease, stage 4 ( ) Not Agree (x ) Other explanation of clinical findings (Please Explain) ( ) Unable to determine (Please Define) ( ) Need to Discuss CKD stage III The medical record reflects the following clinical findings, treatment, and risk factors. Clinical Indicators: As above Treatment: Serial chemistries Risk Factors: Age, DM type II, CHF QUERY 2 OF 2 Consider explicit documentation of the acuity of the condition treated as this cannot be assumed by the professional aircraft part assembler. Thank you. In your clinical opinion is this patient being managed for: ( ) Acute diastolic CHF ( ) Not Agree (x ) Other explanation of clinical findings (Please Explain) ( ) Unable to determine (Please Define) ( ) Need to Discuss Chronic diastolic CHF; BNP not abnormal, no symptoms of orthopnea to indicate acute exacerbation The medical record reflects the following clinical findings, treatment, and risk factors. Clinical Indicators: Documentation of "diastolic CHF". Treatment: Telemetry, IV Lasix, digoxin, metoprolol, spironolactone, cardiology consultation. Risk Factors: Afib, age, DMII, history of diastolic CHF, hypertension Please clarify and document your clinical opinion in the progress notes and discharge summary. Terms such as "probable", "suspected", "likely", "questionable", "possible", or "still to be ruled out" are acceptable. IF IN AGREEMENT, YOU MUST DOCUMENT ABOVE DIAGNOSTIC STATEMENT IN DAILY PROGRESS NOTES AND DISCHARGE SUMMARY. This document is not part of the patient's record. Thank You, Bry Boss, RN [phone]
--- NOTE | 2017-05-01 09:56 | DIAGNOSTIC IMAGING REPORT ---
CHEST ONE VIEW PORTABLE CLINICAL HISTORY: 76 years-old Female presenting with thoracentesis. TECHNIQUE: Portable upright AP view of the chest was obtained. COMPARISON: 05/01/2017. FINDINGS: Left subclavian pacer with lead to the right ventricular apex. Median sternotomy wires and prosthetic aortic valve again noted. Atherosclerosis of the aortic arch. Cardiac silhouette remains enlarged. Interval decrease in hazy right basilar opacity. Persistent bandlike opacities at the lung bases though slightly decreased from prior. Trace right pleural effusion, decreased from prior. No pneumothorax. Osteopenia may be present. Upper abdomen normal. IMPRESSION: 1. Significant interval decrease in right pleural effusion and right basilar opacity. 2. Decreased bibasilar atelectasis. 3. No pneumothorax. Electronically signed by: Adam Nagel M.D. 05/01/2017 9:55 AM Dictated Date/Time: 05/01/2017 9:54 AM
[2017-05-01 10:37] LABS: PLEURAL FLUID TOTAL PROTEIN 4.2 g/dl
--- NOTE | 2017-05-01 10:42 | Clinical Documentation Query ---
VANCE Cai : CLINICAL DOCUMENTATION QUERIES QUERY 1 OF 2 Patient is a 76 year old female admitted for treatment of diastolic CHF. H&P notes history of CKD, not otherwise specified. Estimated GFR range < 30 ml/min dating back to 05/03. Please clarify as clinically appropriate. Thank you. In your clinical opinion is this patient being managed for: ( x ) Chronic kidney disease, stage 4 ( ) Not Agree ( ) Other explanation of clinical findings (Please Explain) ( ) Unable to determine (Please Define) ( ) Need to Discuss The medical record reflects the following clinical findings, treatment, and risk factors. Clinical Indicators: As above Treatment: Serial chemistries Risk Factors: Age, DM type II, CHF QUERY 2 OF 2 Consider explicit documentation of the acuity of the condition treated as this cannot be assumed by the professional vice president global advertising sales. Thank you. In your clinical opinion is this patient being managed for: ( x ) Acute diastolic CHF, ( ) Not Agree ( ) Other explanation of clinical findings (Please Explain) ( ) Unable to determine (Please Define) ( ) Need to Discuss The medical record reflects the following clinical findings, treatment, and risk factors. Clinical Indicators: Documentation of "diastolic CHF". Treatment: Telemetry, IV Lasix, digoxin, metoprolol, spironolactone, cardiology consultation. Risk Factors: Afib, age, DMII, history of diastolic CHF, hypertension Please clarify and document your clinical opinion in the progress notes and discharge summary. Terms such as "probable", "suspected", "likely", "questionable", "possible", or "still to be ruled out" are acceptable. IF IN AGREEMENT, YOU MUST DOCUMENT ABOVE DIAGNOSTIC STATEMENT IN DAILY PROGRESS NOTES AND DISCHARGE SUMMARY. This document is not part of the patient's record. Thank You, Bry Boss, RN [phone]
--- NOTE | 2017-05-01 10:57 | CARDIOLOGY PROGRESS NOTE ---
DATE: 05/01/2017 SUBJECTIVE: Mrs. Morales is seated at the bedside without complaints of chest pain. Her dyspnea has improved since her thoracentesis done earlier this morning. OBJECTIVE: VITAL SIGNS: Blood pressure is 120/60 with an irregular pulse of 62. Respiratory rate is 20. The patient is afebrile at 36.9 degrees Celsius. Saturations 96% on 2 liters nasal cannula. NECK: Supple with full carotid upstrokes. There are no carotid bruits. Jugular venous pressure is flat at 90 degrees. No thyromegaly. CARDIOVASCULAR: Reveals an irregular rhythm with crisp mechanical valve sounds. A 2/6 basal systolic ejection murmur is noted. LUNGS: Clear without rales, rhonchi, or wheezes. ABDOMEN: Obese without bruits. EXTREMITIES: Reveal intact radial artery pulses bilaterally. 1+ pretibial edema is noted. DATA: CBC notes hemoglobin of 8.7, hematocrit 29.1, white count 6.2, platelet count 185,000. Electrolytes note a sodium of 135, potassium 4.2, chloride 103, bicarbonate 23, BUN 57, creatinine 2.3, glucose 119. INR is 2.0. IMPRESSION AND PLAN: 1. Hypervolemia -- has improved with intravenous diuresis. 2. Chronic diastolic congestive heart failure -- continue with medical management. BNP at the time of admission was normal, voting against congestive heart failure. 3. Right-sided pleural effusion -- status post thoracentesis. 4. Mitral valve replacement -- 1985, Dowd-Lee prosthesis. Echo suggests the possibility of mild stenosis. 5. Severe pulmonary hypertension -- with right ventricular dilatation and dysfunction. 6. Permanent atrial fibrillation. 7. Status post VVI pacemaker -- 1993, January 2009. 8. Chronic obstructive pulmonary disease. 9. Diabetes mellitus. [facility]
[2017-05-01] MEDS: ACETAMINOPHEN 325 MG TAB PO PRN (11:47)
[2017-05-01 12:32] LABS: PTT PATIENT 31.5 SECONDS (21.0-31.0)
[2017-05-01] MEDS ORDERED: HEPARIN 25,000 UNIT/500ML D5W 500 ML IV PRN (13:00)
[2017-05-01] MEDS ORDERED: WARFARIN SOD 5 MG TAB PO ONE (16:00)
[2017-05-01] MEDS ORDERED: WARFARIN SOD 2 MG TAB PO SCH (16:00)
--- NOTE | 2017-05-01 16:06 | Procedure Note ---
Procedure Note Date of Service May 01, 2017. Procedure Note Date of the procedure 05/01/2017 Preoperative diagnosis: Recurrent right pleural effusion. Procedure: Right thoracentesis under ultrasound guidance. Surgeon Dr. Cueva, Dr. Niall Braun Anesthesia: Local Procedure: With the patient sitting up on the bedside and ultrasound was used to find a window into the right lateral posterior thorax. A 25-gauge needle 1% Xylocaine was used as a skin subtends tissues after sterilely prepping and draping. Appropriate timeout was called. A large-bore needle was then used to enter the pleural cavity were free-flowing fluid was obtained. A guidewire was inserted and removed. A dilator was slid over the guidewire and then removed. A triple lumen catheter slid into 17 cm in guidewire removed. 1400 cc of rust colored fluid was drained. She tolerated it quite well after we remove the catheter. A chest x-ray showed resolution of her large right pleural effusion. She tolerated quite well.
--- NOTE | 2017-05-01 16:25 | Progress Note ---
Progress Note Date of Service May 01, 2017. Progress Note Mrs. Morales is more short of breath today. She feels that she is "filling up with fluid again". Her x-ray shows more fluid on the right side. She and I had a very long discussion this morning about whether we should proceed with a thoracentesis or insertion of a indwelling pleural catheter or observation. She would like to proceed with a thoracentesis. We will comply. We will do a bedside thoracentesis later this morning. We had a long discussion about risk and benefits including iatrogenic pneumothorax or bleeding. She understands. Her INR is 2.0 today.
[2017-05-01] MEDS: DIGOXIN 0.125 MG TAB PO SCH (16:26)
[2017-05-01] MEDS: FUROSEMIDE 20 MG TAB PO SCH (16:27)
[2017-05-01] MEDS ORDERED: ALBUT/IPRATROP 3MG/0.5MG NEB 3 ML VIAL INH PRN (17:00)
[2017-05-01] MEDS: IPRATROPIUM BROMIDE/ALBUTEROL respimat INH INH SCH ×2 (17:25→21:20)
--- NOTE | 2017-05-01 18:45 | Family Medicine Progress Note ---
Progress Note Date of Service May 01, 2017. Subjective Pt evaluation today including: conversation w/ patient, physical exam, chart review, lab review, conversation w/ cloud consultant, review of inpatient medication list Pain: Patient reports no pain today Voiding: no voiding problems Patient feels much better after thoracentesis today Constitutional: + fatigue, No fever, No chills, No sweats, No weight loss, No weakness, No problem reported Respiratory: + cough, + sputum, + shortness of breath, + dyspnea on exertion Cardiovascular: + edema Abdomen: No pain, No nausea, No vomiting, No diarrhea, No constipation, No GI bleeding, No problem reported Skin: + problem reported (wound on right villareal from cat bite) All Other Systems: Reviewed and Negative Medications Current Inpatient Medications Medications (Trade) Dose Ordered Sig/Albin Route Start Time Stop Time Status Last Admin Dose Admin Acetaminophen (Tylenol Tab) 650 mg Q4H PRN PO 04/30/17 02:30 05/30/17 02:29 05/01/17 11:47 650 MG Al Hydrox/Mg Hydrox/Simethicone (Maalox Max Susp) 15 ml Q4H PRN PO 04/30/17 02:30 05/30/17 02:29 Magnesium Hydroxide (Milk Of Magnesia Susp) 30 ml Q12H PRN PO 04/30/17 02:30 05/30/17 02:29 Ondansetron HCl (Zofran Inj) 4 mg Q6H PRN IV 04/30/17 02:30 05/30/17 02:29 04/30/17 17:17 4 MG Polyethylene (Miralax Powder Packet) 17 gm DAILY PRN PO 04/30/17 02:30 05/30/17 02:29 Digoxin (Lanoxin Tab) 0.125 mg DAILY@1600 PO 04/30/17 16:00 05/30/17 15:59 05/01/17 16:26 0.125 MG EZETIMIBE (Zetia Tab) 10 mg HS PO 04/30/17 21:00 05/30/17 20:59 04/30/17 20:48 10 MG Fexofenadine HCl (Vickie Tab) 180 mg QAM PO 04/30/17 09:00 05/30/17 08:59 05/01/17 07:41 180 MG Levothyroxine Sodium (Synthroid Tab) 175 mcg DAILYBB PO 04/30/17 06:00 05/30/17 06:59 05/01/17 06:28 175 MCG Metoprolol Succinate (Toprol Xl Tab) 100 mg DAILY PO 04/30/17 09:00 05/30/17 08:59 05/01/17 07:42 100 MG Montelukast Sodium (Singulair Tab) 10 mg QAM PO 04/30/17 09:00 05/30/17 08:59 05/01/17 07:42 10 MG Spironolactone (Aldactone Tab) 50 mg DAILY PO 04/30/17 09:00 05/30/17 08:59 05/01/17 07:41 50 MG Furosemide 40 mg/ Syringe 4 ml @ 4 mls/min BID IV 04/30/17 09:00 05/30/17 08:59 Future Hold 05/01/17 07:41 4 MLS/MIN Miscellaneous Information (Consult Glycemic Management Pharmacy) 1 ea UD PRN N/A 04/30/17 03:30 05/30/17 03:29 Cefuroxime Axetil (Ceftin Tab) 500 mg BID PO 04/30/17 09:00 05/10/17 08:59 05/01/17 07:41 500 MG Insulin Aspart (novoLOG ASPART) SLIDING SCALE ACHS SC 04/30/17 11:00 05/30/17 10:59 05/01/17 17:08 5 UNITS Glucose (Glucose 40% Gel) 15-30 GRAMS 15 GRAMS... UD PRN PO 04/30/17 09:30 05/30/17 09:29 Glucose (Glucose Chew Tab) 4-8 Tablets 4 Tabl... UD PRN PO 04/30/17 09:30 05/30/17 09:29 Dextrose (Dextrose 50% 50ML Syringe) 25-50ML OF 50% DW IV FOR... UD PRN IV 04/30/17 09:30 05/30/17 09:29 Glucagon (Glucagon Inj) 1 mg UD PRN SQ 04/30/17 09:30 05/30/17 09:29 Warfarin Sodium (Coumadin Tab) 2 mg SuTh@1600 PO 05/01/17 16:00 05/31/17 15:59 Future Hold Warfarin Sodium (Coumadin Tab) 4 mg MoTuWeFrSa@1600 PO 04/30/17 16:00 05/30/17 15:59 Future hold Insulin Glargine (Lantus Solostar Pen) 8 units BID SC 04/30/17 21:00 05/30/17 20:59 05/01/17 07:48 8 UNITS Furosemide (Lasix Tab) 20 mg BID17 PO 05/01/17 17:00 05/31/17 16:59 05/01/17 16:27 20 MG Heparin Sodium/ Dextrose 500 ml @ 22 mls/hr [id number] PRN IV 05/01/17 13:00 05/31/17 12:59 05/01/17 13:44 22 MLS/HR Albuterol/ Ipratropium (Combivent Respimat Inh) 1 puffs QID INH 05/01/17 17:00 05/31/17 16:59 05/01/17 17:25 1 PUFFS Albuterol/ Ipratropium (Duoneb) 3 ml Q2H PRN INH 05/01/17 17:00 05/31/17 16:59 Objective Vital Signs Date Time Temp Pulse Resp B/P (MAP) Pulse Ox O2 Delivery O2 Flow Rate FiO2 05/01/17 16:54 36.3 67 16 106/44 (64) 94 Room Air 05/01/17 16:26 79 05/01/17 16:01 84 14 98 Nasal Cannula 2.0 05/01/17 16:00 Nasal Cannula 2.0 05/01/17 12:00 36.5 78 16 108/63 (78) 95 Room Air 05/01/17 12:00 Nasal Cannula 2.0 05/01/17 11:16 64 16 94 Room Air 05/01/17 08:26 36.9 62 20 119/58 (78) 96 Room Air 05/01/17 08:00 Nasal Cannula 2.0 05/01/17 07:15 63 15 97 Nasal Cannula 2.0 05/01/17 04:54 97 Nasal Cannula 2.0 05/01/17 04:47 37.3 66 18 116/61 05/01/17 04:00 Nasal Cannula 2.0 05/01/17 00:15 37.6 78 18 115/58 (77) 96 Nasal Cannula 2.0 04/30/17 23:59 Nasal Cannula 2.0 04/30/17 20:30 69 18 94 Room Air 04/30/17 20:27 36.9 74 22 116/49 (71) 91 Nasal Cannula 2.0 04/30/17 20:00 94 Nasal Cannula 2.0 Physical Exam General Appearance: WD/WN, no apparent distress Eyes: normal inspection, PERRL, EOMI, sclerae normal ENT: normal ENT inspection, hearing grossly normal, pharynx normal Neck: supple, no adenopathy, no carotid bruits, trachea midline Respiratory/Chest: normal breath sounds, no respiratory distress, no accessory muscle use, + decreased breath sounds (greatly improved RLL after thoracentesis) Cardiovascular: + systolic murmur, + irregularly irregular Abdomen: normal bowel sounds, non tender, soft Extremities: normal range of motion, non-tender, no calf tenderness, + pedal edema (2+ bilaterally), + pertinent finding (dressing over recent cat bite on right villareal) Neurologic/Psychiatric: 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, no motor/sensory deficits, alert, normal mood/affect, oriented x 3 Laboratory Results Last Resulted 05/01/17 06:48 Red Blood Count 3.40, Mean Corpuscular Volume 85.6, Mean Corpuscular Hemoglobin 25.6, Mean Corpuscular Hemoglobin Concent 29.9, Mean Platelet Volume 9.5, Neutrophils (%) (Auto) 66.8, Lymphocytes (%) (Auto) 11.8, Monocytes (%) (Auto) 16.2, Eosinophils (%) (Auto) 4.5, Basophils (%) (Auto) 0.5, Neutrophils # (Auto ) 4.20, Lymphocytes # (Auto) 0.74, Monocytes # (Auto) 1.02, Eosinophils # (Auto ) 0.28, Basophils # (Auto) 0.03 Last Resulted 05/01/17 06:48 Past 24 Hours Test 04/30/17 19:15 05/01/17 06:48 Range/Units Prothromb Time International Ratio 2.3 H 2.0 H 0.9-1.1 Prothrombin Time 24.0 H 20.4 H 9.0-12.0 SECONDS Assessment and Plan 76 y/o F Hx pulmonary HTN, diastolic CHF, Afib, DM II, mechanical mitral valve, pacemaker, chronic anemia. Pt presented with moderate resp distress - prior to receiving Lasix in the ER she had required BIPAP to maintain an adequate sat. She has been weaned off of oxygen at this point. Dyspnea/Diastolic CHF/Pleural effusion - SOB unlikely florid CHF exacerbation - Given 60 mg Lasix in ED, Started IV Lasix 40 mg BID, converted today to 40 mg PO BID - Continue Digoxin, Metoprolol, Spironolactone - Thoracentesis performed today by Dr. Cueva; appreciate involvement and patient symptomatically improved after 1400cc taken off. Please see procedure note for details - INR 2.0 prior to procedure. Restarted coumadin with heparin drip this afternoon. Heparin drip until therapeutic INR 2.5-3.5 - Cardiology consulted, appreciate recs Echo ordered: 1. Normal LV size. Moderate concentric LVH, Normal LV systolic function. LVEF 60-65%. Flattened septum consistent with RV pressure overload. 2. Mildly dilated RV with borderline function, Mechanical mitral valve prosthesis. Transvalvular gradients suggestive of stenosis. 3. Severe left atrial enlargement, Mild aortic regurgitation. Aortic valve sclerosis without stenosis, Moderate to severe tricuspid regurgitation. 4. Moderate pulmonary hypertension. Estimated PASP 55-60. Dilated IVC, estimated RA 15. - Encourage out of bed AFIB -Continue home meds, coumadin as above DMII - ISS - home meds held HLD - Continue Zetia HTN - Metoprolol Mitral valve s/p replacement - Continue coumadin, heparin bridge until therapeutic. 5 mg coumadin given today. Recheck INR in AM DISPO: tele, possibly home tomorrow DVTP: coumadin CODE: FULL Resident Tracking Resident Involvement: Resident Care Provided Care Provided: Adult Hospital Medicine
[2017-05-01 20:32] LABS: PTT PATIENT 43.9 SECONDS (21.0-31.0)
[2017-05-01] MEDS ORDERED: HEPARIN IV BOLUS 2,000 UNIT in SYRINGE 0 ML IV ONE (21:00)
[2017-05-01] MEDS: EZETIMIBE 10MG TAB PO SCH (21:20)
[2017-05-01] MEDS ORDERED: DIAZEPAM 5MG TAB PO PRN (22:15)
[2017-05-02] MEDS: ACETAMINOPHEN 325 MG TAB PO PRN (01:11)
[2017-05-02 03:31] LABS: BASO % 0.5 %; BASO ABS # 0.03 K/uL (0-0.2); EOS % 6.1 %; EOS ABS # 0.37 K/uL (0-0.5); HEMATOCRIT 28.9 % (37-47); HEMOGLOBIN 8.6 g/dL (12.0-16.0); IG# 0.01 K/uL (0.00-0.02); LYMPH % 15.7 %; LYMPH ABS # 0.95 K/uL (1.2-3.4); MEAN CELL VOLUME 84.8 fL (80-100); MEAN CORPUSCULAR HEMOGLOBIN 25.2 pg (25-34); MEAN CORPUSCULAR HGB CONC 29.8 g/dl (32-36); MEAN PLATELET VOLUME 9.8 fL (7.4-10.4); MONO % 15.8 %; MONO ABS # 0.96 K/uL (0.11-0.59); NEUT % 61.7 %; NEUT ABS # 3.75 K/uL (1.4-6.5); PLATELET COUNT 172 K/uL (130-400); RED CELL DISTRIBUTION WIDTH CV 18.4 % (11.5-14.5); RED CELL DISTRIBUTION WIDTH SD 57.5 fL (36.4-46.3); WHITE BLOOD COUNT 6.07 K/uL (4.8-10.8)
[2017-05-02 03:45] VITALS: BP 107/62; PULSE 68; TEMP 37.2; O2SAT 91
[2017-05-02 03:49] LABS: CALCIUM 8.5 mg/dl (8.5-10.1); CREATININE 2.62 mg/dl (0.60-1.20); POTASSIUM 4.3 mmol/L (3.5-5.1)
[2017-05-02 03:52] LABS: INR 1.7 (0.9-1.1)
[2017-05-02 03:54] LABS: PTT PATIENT 59.5 SECONDS (21.0-31.0)
[2017-05-02] MEDS: LEVOTHYROXINE 175 MCG TAB PO SCH (06:11)
--- NOTE | 2017-05-02 07:11 | DIAGNOSTIC IMAGING REPORT ---
CHEST ONE VIEW PORTABLE CLINICAL HISTORY: 76 years-old Female presenting with effusion . TECHNIQUE: Portable upright AP view of the chest was obtained. COMPARISON: 05/01/2017. FINDINGS: Left subclavian pacer with single lead to the right ventricular apex. Median sternotomy wires and prosthetic aortic valve again noted. Atherosclerosis of the aortic arch. Prominence of the main pulmonary artery. Cardiac silhouette mildly enlarged, unchanged. Bandlike opacities at the lung bases not significantly changed from prior. No new focal opacity. There complete resolution of right pleural fluid. No large effusion or pneumothorax. Prominent skin folds over the right hemithorax. Degenerative changes of the thoracic spine. External leads overlie the right upper quadrant degrading evaluation in this region. IMPRESSION: 1. Cardiomegaly. 2. Persistent bibasilar atelectasis or scarring. 3. Near complete resolution of the right pleural effusion. Electronically signed by: Adam Nagel M.D. 05/02/2017 7:09 AM Dictated Date/Time: 05/02/2017 7:07 AM
[2017-05-02] MEDS: FUROSEMIDE 20 MG TAB PO SCH (07:52)
[2017-05-02] MEDS: SPIRONOLACTONE 25 MG TAB PO SCH (07:53)
[2017-05-02] MEDS: METOPROLOL SUCC 50MG EXT REL TAB PO SCH (07:53)
[2017-05-02] MEDS: MONTELUKAST SOD 10 MG TAB PO SCH (07:53)
[2017-05-02] MEDS: CEFUROXIME AXETIL 500 MG TAB PO SCH (07:53)
[2017-05-02] MEDS: FEXOFENADINE HCL 180 MG TAB PO SCH (07:53)
[2017-05-02] MEDS: IPRATROPIUM BROMIDE/ALBUTEROL respimat INH INH SCH ×2 (07:54→13:10)
[2017-05-02] MEDS: INSULIN GLARGINE SOLOSTAR 100 UNITS/ML 3 ML PEN SC SCH (07:59)
[2017-05-02] MEDS: INSULIN ASPART 100 UNITS/ML 3 ML PEN SC SCH ×2 (07:59→13:02)
[2017-05-02 08:00] VITALS: BP 116/67; PULSE 75; TEMP 36.9; O2SAT 91
--- NOTE | 2017-05-02 09:07 | CARDIOLOGY PROGRESS NOTE ---
DATE: 05/02/2017 SUBJECTIVE: Mrs. Morales is resting comfortably at the bedside without complaints of chest pain or dyspnea. She is anxious for hospital discharge. OBJECTIVE: VITAL SIGNS: Blood pressure is 107/62 with an irregular pulse of 60. Respiratory rate is 17. The patient is afebrile at 37.2 degree Celsius. Saturations 91% on room air. NECK: Supple with full carotid upstrokes. No carotid bruits. Jugular venous pressure is flat at 90 degrees. There is no thyromegaly. CARDIOVASCULAR: Reveals a regular rhythm with crisp mechanical valve sounds. A fixed split S2 is noted. A 2/6 basal systolic ejection murmur is also noted. LUNGS: Clear without rales, rhonchi, or wheezes. ABDOMEN: Obese without bruits. EXTREMITIES: Reveal intact radial artery pulses bilaterally. 1+ pretibial edema is noted. DATA: CBC notes a hemoglobin of 8.6, hematocrit 28.9, white count 6.07, platelet count 172,000. Electrolytes note a sodium of 133, potassium 4.3, chloride 100, bicarbonate 24, BUN 69, creatinine 2.62, glucose 119. INR is 1.7. IMPRESSION AND PLAN: 1. Hypervolemia -- patient now euvolemic after intravenous diuretics. 2. Chronic diastolic congestive heart failure -- continue with medical management. As before, the BNP was normal at the time of admission suggesting this did not represent an acute congestive heart failure. 3. Right-sided pleural effusion -- status post thoracentesis. 4. Mitral valve replacement -- Dowd-Lee prosthesis placed in 1985. Echo suggests the possibility for mild stenosis. We will follow as an outpatient. 5. Severe pulmonary hypertension - with right ventricular dilatation and dysfunction. 6. Permanent atrial fibrillation. 7. Status post VVI pacer -- 1993, generator change in January 2009. 8. Chronic obstructive pulmonary disease. 9. Diabetes mellitus. 10. Disposition -- stable for hospital discharge. Could consider bridging with Lovenox until her INR becomes therapeutic.
--- NOTE | 2017-05-02 11:10 | Progress Note ---
Progress Note Date of Service May 02, 2017. Progress Note The patient was seen today on 05/02/2017. She states her breathing is "much "improved. She sounds better on auscultation. This fluid is a transudate. There is no evidence of malignancy on cytology and no evidence of infection. She is going to be discharged I will see her back in the office in the next week or 10 days with a chest x-ray for comparison. If she re-accumulates we will discuss an indwelling pleural catheter at that time.
[2017-05-02] MEDS ORDERED: ENOX120I SQ (12:00)
[2017-05-02] MEDS ORDERED: CEFU1TAB35 PO (12:06)
[2017-05-02 12:08] VITALS: BP 130/63; PULSE 79; TEMP 37; O2SAT 90
--- NOTE | 2017-05-02 12:13 | Discharge Instructions ---
Discharge Instructions Date of Service May 02, 2017. Admission Reason for Admission: Chf; Pleural Effusion, Right Discharge Discharge Diagnosis / Problem: Right sided pleural effusion Discharge Goals Goal(s): Decrease discomfort, Improve function, Improve disease control, Prevent Disease Progression Activity Recommendations Activity Limitations: per Instructions/Follow-up section . Instructions / Follow-Up Instructions / Follow-Up During this visit you were evaluated and treated for fluid in your lungs. You had a procedure done to take the fluid off of your lungs. Because of this, your warfarin had to be stopped temporarily. We have restarted your warfarin but you will need extra coverage with lovenox injections until your INR returns to normal and Dr. Akhtar says you can stop the injections. Take your normal doses of warfarin until you hear from Dr. Akhtar next week. You will start your first injection of lovenox today before leaving the hospital. 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 You should inject them every 12 hours (twice daily). Please inject another dose of lovenox tonight before you go to bed or around midnight, and start on a regular schedule tomorrow morning. We have discussed the risks of lovenox with you in that it is unknown whether it is as effective as the heparin you were receiving in the hospital. We discussed that you are potentially at risk for compromising your heart valve and developing a clot that could lead to a stroke. You should have your INR checked with your other labs on FRIDAY, Apr. These results will be sent to Dr. Araujo and she will adjust your meds as needed. You will be following up with Dr. Cueva in the next 7-10 days. During this visit you were also treated for a potential skin infection from your cat bite. Take one antibiotic this evening and starting tomorrow take this antibiotic twice daily for 7 days. Resume all of your other home meds. You should follow up with your primary care physician within the next week. If your symptoms return or worsen, please contact your PCP or return to the ER. Current Hospital Diet Patient's current hospital diet: AHA Diet (Heart Healthy), Diabetes Type 2 Diet Discharge Diet Recommended Diet: AHA Diet (Heart Healthy), Diabetes Type 2 Diet Pending Studies Studies pending at discharge: yes List of pending studies: Pleural fluid culture Medical Emergencies . Who to Call and When: Medical Emergencies: If at any time you feel your situation is an emergency, please call 911 immediately. . Non-Emergent Contact Non-Emergency issues call your: Primary Care Provider . . "Provider Documentation" section prepared by Sudha Gamboa. . VTE Core Measure Inpt VTE Proph given/why not?: Enoxaparin (Lovenox)SQ, Warfarin (Coumadin)
[2017-05-02] MEDS ORDERED: ENOXAPARIN 80 MG/0.8 ML SYR SQ ONE (13:30)
[2017-05-02 13:53] VITALS: BP 130/63; PULSE 79; TEMP 37; O2SAT 90
--- NOTE | 2017-05-02 23:24 | Discharge Summary ---
Discharge Summary Date of Service May 02, 2017. Discharge Summary Admission Date: Apr 30, 2017 at 02:48 Discharge Date: May 02, 2017 Discharge Disposition: Home Principal Diagnosis: Pleural effusion Problems/Secondary Diagnoses: HTN, chronic diastolic CHF, Afib, DM II, mechanical mitral valve, pacemaker, chronic anemia, HLD, HTN Immunizations: Have You Had Influenza Vaccine: Yes Influenza Vaccine Date: Dec 23, 2010 History of Tetanus Vaccine?: utd History of Pneumococcal: Yes History of Hepatitis B Vaccine: No Procedures: Thoracentesis Consultations: Cardiology, Thoracic surgery Medication Reconciliation New Medications: Enoxaparin (Lovenox) 120 Mg/0.8 Ml Inj 70 MG SQ Q12H for 7 Days, #14 SYR Cefuroxime Axetil (Cefuroxime Axetil) 500 Mg Tab 500 MG PO BID for 8 Days, #15 TAB Continued Medications: Cholecalciferol (Vitamin D3) 1,000 Unit Cap 1000 INTER.UNIT PO TID Cyanocobalamin (Vitamin B-12) 1,000 Mcg Tab 1000 MCG PO QAM Diazepam (Valium) 5 Mg Tab 5 MG PO HS Diclofenac Sodium (Topical) (Diclofenac Sodium) 1 % Gel 1 APPLN TOP QID PRN for Pain-Affected Joints Digoxin (Digoxin) 0.125 Mg Tab 0.125 MG PO QAM Ezetimibe (Ezetimibe) 10 Mg Tab 10 MG PO HS Fexofenadine Hcl (Vickie) 180 Mg Tab 180 MG PO QAM, TAB Furosemide (Furosemide) 40 Mg Tab 60 MG PO QAM Gemfibrozil (Gemfibrozil) 600 Mg Tab 600 MG PO BID TAKE THIS MEDICATION 30 MINUTES BEFORE BREAKFAST AND BEDTIME Hydralazine Hcl (Apresoline) 25 Mg Tab 25 MG PO BID Insulin Aspart (Novolog) 100 Units/Ml Inj 1 DOSE SC ACHS PRN for As Needed COVERAGE DIRECTED BY SLIDING SCALE Insulin Glargine (Lantus) 100 Unit/Ml Inj 15 UNITS SC AMPM Ipratropium-Albuterol (Duoneb) 3 Ml Nebu 1 TREATMENT INH QID, INHA Isosorbide Mononitrate (Isosorbide Mononitrate ER) 30 Mg Tabcr 30 MG PO QAM Levalbuterol Tartrate (Levalbuterol Tartrate Hfa) 45 Mcg/Act Aer 1-2 PUFFS INH q4-6h PRN for as directed Levothyroxine Sodium (Synthroid) 175 Mcg Tab 175 MCG PO DAILY, TAB Metoprolol Succ (Toprol Xl) (Toprol-Xl ) 100 Mg Tabcr 100 MG PO DAILY, TAB Misc Natural Products (Osteo Bi-Flex Joint Shiel) 1 Tab Tab 1 TAB PO BID Montelukast Sod (Montelukast Sodium) 10 Mg Tab 10 MG PO QAM Oxycodone HCl (Oxycodone HCl) 5 Mg Tab 1-2 TABS PO Q4 PRN for Pain Pyridoxine (Vitamin B6) 100 Mg Tab 100 MG PO QAM Spironolactone (Aldactone) 50 Mg Tab 50 MG PO DAILY Trospium Chloride (Trospium Chloride) 20 Mg Tab 20 MG PO DAILY Warfarin Sodium (Coumadin) 2 Mg Tab 2 MG PO 2XWK take on Sundays and Warfarin Sodium (Coumadin) 4 Mg Tab 4 MG PO 5XWK take daily on Mondays, Tuesdays, Wednesdays, Fridays, and Saturdays Discharge Exam ROS: Constitutional: + fatigue, No fever, No chills, No sweats, No weight loss, No weakness, No problem reported Respiratory: + cough, + sputum, + shortness of breath, + dyspnea on exertion Cardiovascular: + edema Abdomen: No pain, No nausea, No vomiting, No diarrhea, No constipation, No GI bleeding, No problem reported Skin: + problem reported (wound on right villareal from cat bite) All Other Systems: Reviewed and Negative PE General Appearance: WD/WN, no apparent distress Eyes: normal inspection, PERRL, EOMI, sclerae normal ENT: normal ENT inspection, hearing grossly normal, pharynx normal Neck: supple, no adenopathy, no carotid bruits, trachea midline Respiratory/Chest: normal breath sounds, no respiratory distress, no accessory muscle use, + decreased breath sounds (greatly improved RLL after thoracentesis) Cardiovascular: + systolic murmur, + irregularly irregular Abdomen: normal bowel sounds, non tender, soft Extremities: normal range of motion, non-tender, no calf tenderness, + pedal edema (2+ bilaterally), + pertinent finding (dressing over recent cat bite on right villareal) Neurologic/Psychiatric: 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 Pt presented with moderate resp distress - prior to receiving Lasix in the ER she had required BIPAP to maintain an adequate sat. She has been weaned off of oxygen at this point. Dyspnea/Chronic Diastolic CHF/Pleural effusion - SOB unlikely florid acute CHF exacerbation d/t normal BNP/no orthopnea - Given 60 mg Lasix in ED, Started IV Lasix 40 mg BID, converted to home dosage on discharge - Continue Digoxin, Metoprolol, Spironolactone - Thoracentesis performed today by Dr. Cueva; appreciate involvement and patient symptomatically improved after 1400cc taken off. Please see procedure note for details - INR 1.7 today. Restarted coumadin with heparin drip after procedure; will be discharged on lovenox with cardiology's recommendation. Continue until therapeutic INR 2.5-3.5; patient to have INR draw in 3 days; Discussed with patients risks of using lovenox documented below - Cardiology consulted, appreciate recs Echo ordered: 1. Normal LV size. Moderate concentric LVH, Normal LV systolic function. LVEF 60-65%. Flattened septum consistent with RV pressure overload. 2. Mildly dilated RV with borderline function, Mechanical mitral valve prosthesis. Transvalvular gradients suggestive of stenosis. 3. Severe left atrial enlargement, Mild aortic regurgitation. Aortic valve sclerosis without stenosis, Moderate to severe tricuspid regurgitation. 4. Moderate pulmonary hypertension. Estimated PASP 55-60. Dilated IVC, estimated RA 15. - Encourage out of bed - Follow up with Dr. Cueva in 5-7 days AFIB -Continue home meds, coumadin as above CKD Stage III - Cr and BUN consistent with baseline. DMII - Resume home meds on discharge HLD - Continue Zetia HTN - Metoprolol per home dosage Cat bite - Finish cefuroxime 500 bid x 7 days Mitral valve s/p replacement - Resume home coumadin dosing. Recheck INR Friday - Lovenox 70 mg BID x 7 days unless found therapeutic prior - Discussed risk of using lovenox vs staying in hospital for heparin coverage: Discussed risk of compromising valve, possibility of clot/stroke, etc. Total Time Spent: Less than 30 minutes This includes examination of the patient, discharge planning, medication reconciliation, and communication with other providers. Discharge Instructions Please refer to the electronic Patient Visit Report (Discharge Instructions) for additional information. Follow-Up Follow up with Dr. Cueva in 7-10 days Additional Copies To Phoenix Klein III, CRNP Resident Tracking Resident Involvement: Resident Care Provided Care Provided: Adult [facility]
[2017-05-03] MEDS ORDERED: WARFARIN SOD 2 MG TAB PO SCH (16:00)
== END 2017-05-02 16:00 | disposition home or self-care (01) | DRG 291 ==
LOC: C.EDB 22:59 → C.2T 04-30 02:48 → ENRESERV 04-30 03:04
PROVIDERS: ADMIT Internal Medicine; ATTEND Hospitalist
PROC: 0W993ZZ Drainage of Right Pleural Cavity, Percutaneous Approach (ICD-10-PCS; principal; 2017-05-01)
DX: I13.0 Hypertensive heart and chronic kidney disease with heart failure and stage 1 through stage 4 chronic kidney disease, or unspecified chronic kidney disease (principal); I50.33 Acute on chronic diastolic (congestive) heart failure; J91.8 Pleural effusion in other conditions classified elsewhere; N18.4 Chronic kidney disease, stage 4 (severe); I27.20 Pulmonary hypertension, unspecified; E11.22 Type 2 diabetes mellitus with diabetic chronic kidney disease; S81.851A Open bite, right lower leg, initial encounter; W55.01XA Bitten by cat, initial encounter; I48.91 Unspecified atrial fibrillation; D64.9 Anemia, unspecified; J44.9 Chronic obstructive pulmonary disease, unspecified; I05.0 Rheumatic mitral stenosis; E11.40 Type 2 diabetes mellitus with diabetic neuropathy, unspecified; E03.9 Hypothyroidism, unspecified; I25.10 Atherosclerotic heart disease of native coronary artery without angina pectoris; E78.5 Hyperlipidemia, unspecified; Z95.2 Presence of prosthetic heart valve; Z86.73 Personal history of transient ischemic attack (TIA), and cerebral infarction without residual deficits; Z87.891 Personal history of nicotine dependence; Z95.0 Presence of cardiac pacemaker; Z86.718 Personal history of other venous thrombosis and embolism; Z79.4 Long term (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 of insulin; Z79.51 Long term (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 of inhaled steroids; Z79.01 Long term (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 of anticoagulants; Z79.899 Other long term (current) drug therapy; Z88.0 Allergy status to penicillin; Z88.1 Allergy status to other antibiotic agents; Z88.2 Allergy status to sulfonamides; Z88.8 Allergy status to other drugs, medicaments and biological substances

== ENCOUNTER → 2017-04-29 | Outpatient (CLI) | payer BC ==
[~2017-04-29] MED LIST changes: +ASCO250T5 PO; +CEFU1TAB35 PO; +DOXY100T PO; +ENOX120I SQ; +IPRASOL4 INH; +LEVA45AE INH; +METO100T44 PO; +WARF2TAB PO
--- NOTE | 2017-04-29 10:49 | DIAGNOSTIC IMAGING REPORT ---
CHEST 2 VIEWS ROUTINE CLINICAL HISTORY: Shortness of breath. Cat bite. COMPARISON STUDY: Chest radiograph January 16, 2017 and March 07, 2017. FINDINGS: Note is made of a single lead left subclavian pacemaker, median sternotomy wires and prosthetic mitral valve. Moderate cardiomegaly is unchanged. There is no pneumothorax. A moderate right pleural effusion has significantly increased in size since exam of January 16, 2017. Associated right basilar opacity is noted. Mild left basilar opacity favors atelectasis. There is pulmonary vascular congestion with mild pulmonary edema. Nipple shadow projects over the left lower lung IMPRESSION: 1. Significant increase in size of a moderate right pleural effusion since chest radiograph of March 07, 2017. 2. Pulmonary vascular congestion with suspected mild pulmonary edema. Electronically signed by: Randy Melton M.D. 04/29/2017 10:47 AM Dictated Date/Time: 04/29/2017 10:45 AM
== END | disposition home or self-care (01) ==
LOC: C.RAD1850 10:28
PROVIDERS: ATTEND Nurse Practitioner Family
DX: R06.02 Shortness of breath (principal); W55.01XA Bitten by cat, initial encounter

== ENCOUNTER → 2017-05-05 | Outpatient (CLI) | payer BC ==
[~2017-05-05] MED LIST changes: -ASCO250T5 PO; +CEFU1TAB35 PO; +ENOX120I SQ; -INHALER INH; +IPRASOL4 INH; +LEVA45AE INH; +METO100T44 PO; -TPRSR/50 PO; +WARF2TAB PO
[2017-05-05 12:31] LABS: INR 1.9 (0.9-1.1)
--- NOTE | 2017-05-05 13:13 | DIAGNOSTIC IMAGING REPORT ---
CHEST 2 VIEWS ROUTINE CLINICAL HISTORY: Right pleural effusion. COMPARISON STUDY: Chest radiograph May 02, 2017. FINDINGS: A single lead left subclavian pacer, median sternotomy wires and prosthetic mitral valve are in place. Cardiomegaly is unchanged. There is no pneumothorax. There is no left pleural effusion. A moderate right pleural effusion is increased in size since prior exam. There is mild pulmonary edema. Bibasilar opacities have increased. IMPRESSION: 1. Increase in size of a moderate right pleural effusion with increasing bibasilar opacities which likely reflect atelectasis. 2. Mild pulmonary edema. Electronically signed by: Randy Melton M.D. 05/05/2017 1:12 PM Dictated Date/Time: 05/05/2017 1:10 PM
== END | disposition home or self-care (01) ==
LOC: C.RAD1850 11:20
PROVIDERS: ATTEND Surgery
DX: J90 Pleural effusion, not elsewhere classified (principal); R91.8 Other nonspecific abnormal finding of lung field; J81.1 Chronic pulmonary edema; Z95.2 Presence of prosthetic heart valve

== ENCOUNTER → 2017-05-12 | Outpatient (CLI) | payer BC ==
[~2017-05-12] MED LIST changes: +CMD/3 PO; -ENOX120I SQ
--- NOTE | 2017-05-12 09:17 | DIAGNOSTIC IMAGING REPORT ---
CHEST 2 VIEWS ROUTINE CLINICAL HISTORY: 76 years-old Female presenting with J90 Pleural effusion, [id number]. TECHNIQUE: PA and lateral views of the chest were obtained. COMPARISON: 05/05/2017. FINDINGS: Left subclavian pacer with single lead to the right ventricular apex. Prosthetic aortic valve and median sternotomy wires and mediastinal surgical clips noted. Atherosclerosis of aortic arch. Main pulmonary artery enlarged. Cardiac silhouette mildly enlarged as on prior exam. Ulnar vascular prominence. Bandlike opacities at the lung bases have increased from prior exam. Small right pleural effusion increased from prior exam with a large bore right pleural drain remaining at the right lung base. No pneumothorax. Degenerative changes of the thoracic spine. Upper abdomen normal. IMPRESSION: 1. Slight interval increase in bibasilar atelectasis and small right pleural effusion despite the presence of the large bore right pleural drain. 2. Cardiomegaly with evidence of volume overload. 3. Main pulmonary artery enlargement suggests pulmonary hypertension. Electronically signed by: Adam Nagel M.D. 05/12/2017 9:16 AM Dictated Date/Time: 05/12/2017 9:14 AM
[2017-05-12 10:34] LABS: ALBUMIN 3.5 gm/dl (3.4-5.0); ALT/SGPT 32 U/L (12-78); BLOOD UREA NITROGEN 78 mg/dl (7-18); CARBON DIOXIDE 23 mmol/L (21-32); CREATININE 2.23 mg/dl (0.60-1.20); GLUCOSE 78 mg/dl (70-99); POTASSIUM 4.4 mmol/L (3.5-5.1); SODIUM 133 mmol/L (136-145)
[2017-05-12 10:37] LABS: ALKALINE PHOSPHATASE 96 U/L (45-117); AST/SGOT 37 U/L (15-37); TOTAL PROTEIN 7.3 gm/dl (6.4-8.2)
== END | disposition home or self-care (01) ==
LOC: C.RAD1850 08:54
PROVIDERS: ATTEND Surgery
DX: J90 Pleural effusion, not elsewhere classified (principal)

== ENCOUNTER → 2017-05-14 | Outpatient (CLI) | payer BC ==
[2017-05-14 13:49] LABS: BLOOD UREA NITROGEN 76 mg/dl (7-18); CALCIUM 8.8 mg/dl (8.5-10.1); CARBON DIOXIDE 26 mmol/L (21-32); CREATININE 2.26 mg/dl (0.60-1.20); GLUCOSE 97 mg/dl (70-99); POTASSIUM 4.5 mmol/L (3.5-5.1); SODIUM 135 mmol/L (136-145)
== END | disposition home or self-care (01) ==
LOC: C.LAB1850 11:39
PROVIDERS: ATTEND Internal Medicine Nephrology
DX: N18.3 Chronic kidney disease, stage 3 (moderate) (principal)

== ENCOUNTER → 2017-05-26 | Outpatient (CLI) | payer BC ==
[~2017-05-26] MED LIST changes: -CMD/3 PO
--- NOTE | 2017-05-26 11:45 | DIAGNOSTIC IMAGING REPORT ---
CHEST 2 VIEWS ROUTINE CLINICAL HISTORY: PLEURAL EFFUSION RIGHT dyspnea COMPARISON STUDY: 05/12/2017. FINDINGS: moderate stable cardia megaly. Unipolar cardiac pacemaker. Pleural drain right base unchanged in position. Trace pleural effusion right base unaltered. No significant pneumothorax. Mild chronic bibasilar interstitial change. IMPRESSION: Stable pleural drain right base. Minimal right basilar pleural effusion unchanged. Mild bibasilar atelectasis stable. The above report was generated using voice recognition software. It may contain grammatical, syntax or spelling errors. Electronically signed by: Zak Olson M.D. 05/26/2017 11:44 AM Dictated Date/Time: 05/26/2017 11:43 AM
[2017-05-26 13:56] LABS: ALBUMIN 3.3 gm/dl (3.4-5.0); BLOOD UREA NITROGEN 46 mg/dl (7-18); CALCIUM 9.1 mg/dl (8.5-10.1); CARBON DIOXIDE 24 mmol/L (21-32); CREATININE 1.84 mg/dl (0.60-1.20); GLUCOSE 109 mg/dl (70-99); POTASSIUM 4.2 mmol/L (3.5-5.1); SODIUM 138 mmol/L (136-145)
== END | disposition home or self-care (01) ==
LOC: C.RAD1850 11:29
PROVIDERS: ATTEND Physician Assistant
DX: J90 Pleural effusion, not elsewhere classified (principal)

== ENCOUNTER → 2017-06-03 | Outpatient (CLI) | payer BC ==
[~2017-06-03] MED LIST changes: +FURO80TA63 PO; -INSDGI SC; +INSDGI SQ
[2017-06-03 12:28] LABS: BASO % 0.5 %; BASO ABS # 0.03 K/uL (0-0.2); EOS % 4.7 %; HEMATOCRIT 29.3 % (37-47); HEMOGLOBIN 8.9 g/dL (12.0-16.0); IG# 0.02 K/uL (0.00-0.02); LYMPH % 11.2 %; LYMPH ABS # 0.72 K/uL (1.2-3.4); MEAN CELL VOLUME 80.9 fL (80-100); MEAN CORPUSCULAR HEMOGLOBIN 24.6 pg (25-34); MEAN CORPUSCULAR HGB CONC 30.4 g/dl (32-36); MEAN PLATELET VOLUME 9.6 fL (7.4-10.4); MONO % 16.8 %; MONO ABS # 1.08 K/uL (0.11-0.59); NEUT % 66.5 %; NEUT ABS # 4.26 K/uL (1.4-6.5); PLATELET COUNT 223 K/uL (130-400); RED CELL DISTRIBUTION WIDTH CV 18.2 % (11.5-14.5); RED CELL DISTRIBUTION WIDTH SD 54.6 fL (36.4-46.3); WHITE BLOOD COUNT 6.41 K/uL (4.8-10.8)
[2017-06-03 13:11] LABS: ALBUMIN 3.1 gm/dl (3.4-5.0); ALT/SGPT 32 U/L (12-78); AST/SGOT 31 U/L (15-37); BLOOD UREA NITROGEN 49 mg/dl (7-18); CALCIUM 8.1 mg/dl (8.5-10.1); CARBON DIOXIDE 20 mmol/L (21-32); CREATININE 1.89 mg/dl (0.60-1.20); GLUCOSE 124 mg/dl (70-99); POTASSIUM 3.7 mmol/L (3.5-5.1); SODIUM 136 mmol/L (136-145)
[2017-06-03 13:16] LABS: ALKALINE PHOSPHATASE 96 U/L (45-117); TOTAL PROTEIN 6.7 gm/dl (6.4-8.2)
== END | disposition home or self-care (01) ==
LOC: C.LABSPEC 12:17
PROVIDERS: ATTEND Internal Medicine Hematology & Oncology
DX: J90 Pleural effusion, not elsewhere classified (principal); Z48.03 Encounter for change or removal of drains; J45.909 Unspecified asthma, uncomplicated; I50.32 Chronic diastolic (congestive) heart failure

== ENCOUNTER → 2017-06-04 | Outpatient (CLI) | payer BC ==
[2017-06-04 12:59] LABS: ALBUMIN 3.1 gm/dl (3.4-5.0); BLOOD UREA NITROGEN 47 mg/dl (7-18); CALCIUM 8.7 mg/dl (8.5-10.1); CARBON DIOXIDE 23 mmol/L (21-32); CREATININE 1.98 mg/dl (0.60-1.20); GLUCOSE 122 mg/dl (70-99); PHOSPHORUS 3.3 mg/dl (2.5-4.9); POTASSIUM 3.7 mmol/L (3.5-5.1); SODIUM 139 mmol/L (136-145)
== END | disposition home or self-care (01) ==
LOC: C.LAB 16:14
PROVIDERS: ATTEND Nurse Practitioner Family
DX: N18.3 Chronic kidney disease, stage 3 (moderate) (principal); R06.02 Shortness of breath; I50.32 Chronic diastolic (congestive) heart failure; R60.9 Edema, unspecified

== ENCOUNTER 2017-06-05 22:32 | Inpatient (IN) | payer BC, OTHER ==
[~2017-06-05] VITALS: Ht 165.1 cm; Wt 77.7 kg
[~2017-06-05 22:32] MED LIST changes: -FURO80TA63 PO
[2017-06-05 23:56] LABS: BASO % 0.8 %; BASO ABS # 0.05 K/uL (0-0.2); EOS % 4.2 %; EOS ABS # 0.26 K/uL (0-0.5); HEMATOCRIT 30.5 % (37-47); HEMOGLOBIN 9.2 g/dL (12.0-16.0); IG# 0.02 K/uL (0.00-0.02); LYMPH % 15.8 %; LYMPH ABS # 0.99 K/uL (1.2-3.4); MEAN CELL VOLUME 80.5 fL (80-100); MEAN CORPUSCULAR HEMOGLOBIN 24.3 pg (25-34); MEAN CORPUSCULAR HGB CONC 30.2 g/dl (32-36); MEAN PLATELET VOLUME 9.8 fL (7.4-10.4); MONO % 15.5 %; MONO ABS # 0.97 K/uL (0.11-0.59); NEUT % 63.4 %; NEUT ABS # 3.96 K/uL (1.4-6.5); PLATELET COUNT 235 K/uL (130-400); RED CELL DISTRIBUTION WIDTH SD 52.8 fL (36.4-46.3); WHITE BLOOD COUNT 6.25 K/uL (4.8-10.8)
--- NOTE | 2017-06-05 23:57 | EMERGENCY ROOM VISIT NOTE ---
History Report prepared by Dianne: Nicole Franz Under the Supervision of: Dr. Camilla Reese D.O. First contact with patient: 23:18 Chief Complaint: SHORTNESS OF BREATH Stated Complaint: SOB/EDEMA, LEGS & ABD AREA Nursing Triage Summary: PT ARRIVES VIA ALS per ALS patient has had increased swelling to legs and abdomen causing her to feel short of breath she has adjusted her lasix x's 2 with no relief per patient both her legs have started to drain pt also reports right pleurex catheter that she empties everyday pt has CKD, DM, pacermaker and CHF HX History of Present Illness The patient is a 77 year old female who presents to the Emergency Room with complaints of persistent SOB starting 4 weeks ago. She presents to the ED by EMS. The patient has a history of CHF. She reports increased swelling and SOB. She has gained weight. Her Lasix was increased 4 weeks ago and again 4 days ago. She is still having increased swelling and SOB. She reports a cough. She denies any fever, diarrhea, vomiting, or chest pain. She has a catheter in her chest which is drained daily by a nurse. She does not wear oxygen at home. She has a history of DVT after her heart valve replacement. She is on warfarin. Her last INR was 3.2. She has a history of kidney problems. She has a pacemaker. Source of History: patient Onset: 4 weeks ago Position: other (constitutional) Quality: other (SOB) Timing: other (persistent) Associated Symptoms: + cough, No fevers, No chest pain, No vomiting, No diarrhea Note: Pt reports leg swelling, weight gain. Review of Systems See HPI for pertinent positives & negatives. A total of 10 systems reviewed and were otherwise negative. Past Medical & Surgical Medical Problems: (1) Acute kidney injury (2) Acute pancreatitis (3) Acute respiratory failure with hypoxia (4) Acute systolic congestive heart failure (5) Acute urinary tract infection (6) Asthma (7) Atrial fibrillation (8) Cardiac pacemaker procedure (9) CKD (chronic kidney disease) (10) Contrast dye induced nephropathy (11) Deep venous thrombosis (12) Diabetes mellitus (13) History of mitral valve replacement with mechanical valve (14) PERSONAL HX OF TIA,& CEREBRAL INFARCTION W/OUT RES DEFICITS (15) Pneumonia (16) Replacement of mitral valve with mechanical prosthesis (17) Sepsis Surgical Problems: (1) Cholecystectomy (2) Hysterectomy Family History Diabetes mellitus Heart disease Hypertension Social History Smoking Status: Former Smoker Alcohol Use: none Drug Use: none Marital Status: Housing Status: lives with family Occupation Status: retired Current/Historical Medications Scheduled Cholecalciferol (Vitamin D3), 1,000 INTER.UNIT PO TID Cyanocobalamin (Vitamin B-12), 1,000 MCG PO QAM Diazepam (Valium), 5 MG PO HS Digoxin (Digoxin), 0.125 MG PO QAM Ezetimibe (Ezetimibe), 10 MG PO HS Fexofenadine Hcl (Vickie), 180 MG PO QAM Furosemide (Lasix), 80 MG PO BID/AM &NOON Gemfibrozil (Gemfibrozil), 600 MG PO BID Hydralazine Hcl (Apresoline), 25 MG PO BID Insulin Glargine (Lantus), 20-60 UNITS SQ AMPM Ipratropium-Albuterol (Duoneb), 1 TREATMENT INH QID Isosorbide Mononitrate (Isosorbide Mononitrate ER), 30 MG PO QAM Levothyroxine Sodium (Synthroid), 175 MCG PO DAILY Metoprolol Succ (Toprol Xl) (Toprol-Xl ), 100 MG PO DAILY Misc Natural Products (Osteo Bi-Flex Joint Shiel), 1 TAB PO BID Montelukast Sod (Montelukast Sodium), 10 MG PO QAM Pyridoxine (Vitamin B6), 100 MG PO QAM Spironolactone (Aldactone), 50 MG PO DAILY Trospium Chloride (Trospium Chloride), 20 MG PO DAILY Warfarin Sodium (Coumadin), 4 MG PO 6XWK Warfarin Sodium (Coumadin), 2 MG PO WK Scheduled PRN Diclofenac Sodium (Topical) (Diclofenac Sodium), 1 APPLN TOP QID PRN for Pain- Affected Joints Insulin Aspart (Novolog), 1 DOSE SC ACHS PRN for As Needed Levalbuterol Tartrate (Levalbuterol Tartrate Hfa), 1-2 PUFFS INH q4-6h PRN for as directed Oxycodone HCl (Oxycodone HCl), 1-2 TABS PO Q4 PRN for Pain Allergies Coded Allergies: Penicillins (Verified Allergy, Severe, anaphylaxis 30yrs ago, also broke out with sores, 01/30/17) NOTE: Timentin 05/2003 tolerated without problem Diltiazem (Verified Allergy, Unknown, unknown, 01/30/17) Levofloxacin (Verified Allergy, Unknown, UNKNOWN, 01/30/17) Moxifloxacin (Verified Allergy, Unknown, UNKNOWN, 01/30/17) Aspirin (Verified Adverse Reaction, Intermediate, increased bleeding (on warfarin), 01/30/17) Doxycycline (Verified Adverse Reaction, Intermediate, GI SYMPTOMS, ) Atorvastatin (Verified Adverse Reaction, Unknown, & Crestor = muscle aches /pains, 01/30/17) NSAIDs (Verified Adverse Reaction, Unknown, AVOID PER DR. HICKS - [id number] , 01/30/17) Nortriptyline (Verified Adverse Reaction, Unknown, choking on food, ) Quinidine (Verified Adverse Reaction, Unknown, flu-like symptoms, 01/30/17 ) Sulfamethoxazole w/Trimethoprim (Verified Adverse Reaction, Unknown, CONFUSION, 01/30/17) Physical Exam Vital Signs Date Time Temp Pulse Resp B/P (MAP) Pulse Ox O2 Delivery O2 Flow Rate FiO2 06/06/17 02:45 88 06/06/17 02:06 71 22 95 Nasal Cannula 2.0 06/06/17 02:01 101/45 06/06/17 01:06 76 21 95 Nasal Cannula 2.0 06/06/17 01:01 116/54 06/06/17 00:37 87 22 94 Nasal Cannula 2.0 06/06/17 00:01 120/59 06/05/17 23:57 129/60 06/05/17 23:56 95 Nasal Cannula 1.5 06/05/17 23:37 87 27 94 Nasal Cannula 2.0 06/05/17 23:32 80 32 92 Room Air 06/05/17 22:44 87 06/05/17 22:44 93 Room Air 06/05/17 22:39 36.8 73 24 143/76 93 Room Air 06/05/17 22:39 93 Room Air 06/05/17 22:38 143/76 Physical Exam GENERAL: alert, ill appearing, well nourished, no distress, non-toxic EYE EXAM: normal conjunctiva, PERRL and EOM's grossly intact OROPHARYNX: no exudate, no erythema, lips, buccal mucosa, and tongue normal and mucous membranes are moist NECK: supple, no nuchal rigidity, no adenopathy, non-tender CHEST: Well healed sternotomy scar, pacer left anterior superior chest. LUNGS: Diminished breath sounds, no overt wheezes, rhonchi, or rales. HEART: no murmurs, S1 normal and S2 normal ABDOMEN: abdomen soft, distended, edematous abdominal wall, non-tender, normo- active bowel sounds, no masses, no rebound or guarding. BACK: Back is symmetrical on inspection and there is no deformity, no midline tenderness, no CVA tenderness. SKIN: no rashes and no bruising UPPER EXTREMITIES: upper extremities are grossly normal. LOWER EXTREMITIES: Diffuse bilateral lower extremity edema, good pulses. NEURO EXAM: Normal sensorium, cranial nerves II-XII grossly intact, normal speech, generalized weakness. Medical Decision & Procedures ER Provider Diagnostic Interpretation: X-ray: I interpreted the following studies. Chest: Cardiomegaly, pacemaker noted , right sided pleural effusion, sternotomy wires noted, increased interstitial markings bilaterally right greater than left. Laboratory Results 06/05/17 22:20 Red Blood Count 3.79, Mean Corpuscular Volume 80.5, Mean Corpuscular Hemoglobin 24.3, Mean Corpuscular Hemoglobin Concent 30.2, Mean Platelet Volume 9.8, Neutrophils (%) (Auto) 63.4, Lymphocytes (%) (Auto) 15.8, Monocytes (%) (Auto) 15.5, Eosinophils (%) (Auto) 4.2, Basophils (%) (Auto) 0.8, Neutrophils # (Auto ) 3.96, Lymphocytes # (Auto) 0.99, Monocytes # (Auto) 0.97, Eosinophils # (Auto ) 0.26, Basophils # (Auto) 0.05 06/05/17 22:20 Test 06/05/17 22:20 06/05/17 23:52 White Blood Count 6.25 K/uL (4.8-10.8) Red Blood Count 3.79 M/uL (4.2-5.4) Hemoglobin 9.2 g/dL (12.0-16.0) Hematocrit 30.5 % (37-47) Mean Corpuscular Volume 80.5 fL (80-100) Mean Corpuscular Hemoglobin 24.3 pg (25-34) Mean Corpuscular Hemoglobin Concent 30.2 g/dl (32-36) Platelet Count 235 K/uL (130-400) Mean Platelet Volume 9.8 fL (7.4-10.4) Neutrophils (%) (Auto) 63.4 % Lymphocytes (%) (Auto) 15.8 % Monocytes (%) (Auto) 15.5 % Eosinophils (%) (Auto) 4.2 % Basophils (%) (Auto) 0.8 % Neutrophils # (Auto) 3.96 K/uL (1.4-6.5) Lymphocytes # (Auto) 0.99 K/uL (1.2-3.4) Monocytes # (Auto) 0.97 K/uL (0.11-0.59) Eosinophils # (Auto) 0.26 K/uL (0-0.5) Basophils # (Auto) 0.05 K/uL (0-0.2) RDW Standard Deviation 52.8 fL (36.4-46.3) RDW Coefficient of Variation 18.0 % (11.5-14.5) Immature Granulocyte % (Auto) 0.3 % Immature Granulocyte # (Auto) 0.02 K/uL (0.00-0.02) Prothrombin Time 38.5 SECONDS (9.0-12.0) Prothromb Time International Ratio 3.8 (0.9-1.1) Anion Gap 10.0 mmol/L (3-11) Est Creatinine Clear Calc Drug Dose 28.8 ml/min Estimated GFR () 25.4 Estimated GFR (Non- 21.9 BUN/Creatinine Ratio 22.2 (10-20) Calcium Level 8.6 mg/dl (8.5-10.1) Phosphorus Level 3.1 mg/dl (2.5-4.9) Magnesium Level 2.3 mg/dl (1.8-2.4) Total Bilirubin 0.3 mg/dl (0.2-1) Aspartate Amino Transf (AST/SGOT) 41 U/L (15-37) Alanine Aminotransferase (ALT/SGPT) 31 U/L (12-78) Alkaline Phosphatase 100 U/L (45-117) Troponin I 0.017 ng/ml (0-0.045) Pro-B-Type Natriuretic Peptide 813 pg/ml (0-900) Total Protein 6.9 gm/dl (6.4-8.2) Albumin 3.1 gm/dl (3.4-5.0) Globulin 3.8 gm/dl (2.5-4.0) Albumin/Globulin Ratio 0.8 (0.9-2) Digoxin Level 0.5 ng/ml (0.8-2.0) Arterial Blood pH 7.39 (7.35-7.45) Arterial Blood Partial Pressure CO2 38 mmHg (35-46) Arterial Blood Partial Pressure O2 93 mm/Hg (80-95) Arterial Blood HCO3 23 mmol/L (19-24) Arterial Blood Oxygen Saturation 96.0 % (90-95) Arterial Blood Base Excess -2.2 mEq/L (-9-1.8) Arterial Blood Gas Delivery 1.5 Warren Test POS (POS) Laboratory results per my review. Medications Administered Medications (Trade) Dose Ordered Sig/Albin Route Start Time Stop Time Status Last Admin Dose Admin Diazepam (Valium Tab) 5 mg NOW STAT PO 06/06/17 02:54 06/06/17 02:55 DC 06/06/17 03:17 5 MG Hydralazine HCl (Apresoline Tab) 25 mg NOW STAT PO 06/06/17 02:54 06/06/17 02:55 DC 06/06/17 03:17 25 MG ECG Per My Interpretation Indication: SOB/dyspnea Rate (beats per minute): 77 Rhythm: other (underlying atrial fibrillation with frequent pacing) Findings: RBBB (suspect underlying), no acute ischemic change, other ( prolonged QRS and QT consistent with pacing and RBBB) Comparison ECG Date: 29-Apr-2017 Change: Prolonged QRS and QT is old. ED Course 2326: The patient was evaluated in room B5. A complete history and physical exam was performed. 0109: I reevaluated the patient. She still appears SOB. I offered her BiPAP which she declined. I updated her on the results. 0150: I reviewed the patient's case with Dr. Estrada, [facility] hospitalist. She will evaluate the patient for further management. 0157: Upon reevaluation, the patient is stable. I discussed the findings and the treatment plan with the patient. She expresses agreement and understanding. She will be evaluated for further management. Medical Decision Differential diagnosis: Etiologies such as infections, reactive airway disease, pneumonia, pneumothorax , COPD, CHF, cardiac ischemia, pulmonary embolism, musculoskeletal, gastrointestinal, as well as others were entertained. Patient ill-appearing and increased work of breathing noted on bedside exam. Patient with diffuse anasarca. Vital signs otherwise stable. Patient's creatinine tonight mildly elevated compared to prior, and albumin only slightly decreased compared to prior. Patient with subjective need for oxygen supplementation here, although oxygen levels were in the low 90s on room air. Patient offered BiPAP given her history of congestive heart failure and she refused. Patient with multiple chronic comorbidities, prior history of congestive heart failure, prior history of chronic right pleural effusion. 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 Case discussed with hospitalist for additional evaluation and treatment. Medication Reconcilliation Current Medication List: was personally reviewed by me Blood Pressure Screening Patient's blood pressure: Normal blood pressure Blood pressure disposition: Did not require urgent referral Consults Time Called: 0149 Consulting Physician: Dr. Estrada, [facility] hospitalist Returned Call: 0150 I reviewed the patient's case with him. He will evaluate the patient for further management. Impression Primary Impression: Dyspnea Additional Impressions: Anasarca CKD (chronic kidney disease) Hypoalbuminemia Pleural effusion, right Anemia Scribe Attestation The scribe's documentation has been prepared under my direction and personally reviewed by me in its entirety. I confirm that the note above accurately reflects all work, treatment, procedures, and medical decision making performed by me. Departure Information Dispostion Being Evaluated By Hospitalist Referrals Phoenix Klein III, CRNP (PCP) Patient Instructions My [facility] Problem Qualifiers Primary Impression: Dyspnea Dyspnea type: shortness of breath Qualified Codes: R06.02 - Shortness of breath Additional Impressions: CKD (chronic kidney disease) Chronic kidney disease stage: unspecified stage Qualified Codes: N18.9 - Chronic kidney disease, unspecified Anemia Anemia type: unspecified type Qualified Codes: D64.9 - Anemia, unspecified
[2017-06-06] VITALS (10 sets, daily range): BP systolic 99–138; BP diastolic 38–69; PULSE 59–80; TEMP 36.6–36.9; O2SAT 92–98; Ht 165.1 cm; Wt 77.7 kg
[2017-06-06 00:02] LABS: ALBUMIN 3.1 gm/dl (3.4-5.0); CALCIUM 8.6 mg/dl (8.5-10.1); CREATININE 2.14 mg/dl (0.60-1.20); POTASSIUM 4.1 mmol/L (3.5-5.1)
[2017-06-06 00:07] LABS: PHOSPHORUS 3.1 mg/dl (2.5-4.9); TOTAL PROTEIN 6.9 gm/dl (6.4-8.2)
[2017-06-06 00:08] LABS: INR 3.8 (0.9-1.1)
[2017-06-06] MEDS ORDERED: FURO80TA63 PO (00:56)
[2017-06-06] MEDS ORDERED: GEMFIBROZIL 600 MG TAB PO ONE (02:33)
[2017-06-06] MEDS ORDERED: SPIRONOLACTONE 25 MG TAB PO ONE (02:33)
[2017-06-06] MEDS ORDERED: CHOLECALCIFEROL 1000 INTER.UNIT TAB PO ONE (02:33)
[2017-06-06] MEDS ORDERED: EZETIMIBE 10MG TAB PO ONE (02:33)
[2017-06-06] MEDS ORDERED: ONDANSETRON 8MG OD TAB PO PRN (02:45)
[2017-06-06] MEDS ORDERED: POLYETHYLENE (MIRALAX) 17 GM PACK PO PRN (02:45)
[2017-06-06] MEDS ORDERED: GLUCAGON FOR INJ 1 MG VIAL SQ PRN (02:45)
[2017-06-06] MEDS ORDERED: GLUCOSE 10 TABS/TUBE PO PRN (02:45)
[2017-06-06] MEDS ORDERED: ALUMINUM/MAGNESIUM/SIMETH (MAALOX MAX) 30 ML UDC PO PRN (02:45)
[2017-06-06] MEDS ORDERED: MAGNESIUM HYDROXIDE SUSP 30 ML UDC PO PRN (02:45)
[2017-06-06] MEDS ORDERED: GLUCOSE 40% GEL 15 GM TUBE PO PRN (02:45)
[2017-06-06] MEDS ORDERED: DEXTROSE 50% 50 ML SYR IV PRN (02:45)
[2017-06-06] MEDS ORDERED: DIAZEPAM 5MG TAB PO STA (02:54)
[2017-06-06] MEDS ORDERED: FUROSEMIDE INJ 80 MG in SYRINGE 0 ML IV STA (02:54)
[2017-06-06] MEDS ORDERED: FUROSEMIDE 40 MG/4 ML VIAL ONE (03:14)
--- NOTE | 2017-06-06 05:45 | History and Physical ---
History & Physical Date & Time of Service: Jun 06, 2017 at 05:21 Chief Complaint: Acute On Chronic Diastolic Chf, Anasarca Primary Care Physician: Phoenix Klein III, CRNP History of Present Illness Source: patient, hospital records The patient is a 77-year-old female who presents to the emergency department via ALS due to worsening lower extremity edema causing pain in her legs, and shortness of breath not responsive to increasing outpatient dosages of Lasix 4 weeks ago and then again 4 days ago. She has a Pleurx catheter placed by Dr. Cueva on 05/05/17, that she reports is drained daily by a visiting nurse, and has had decreasing volume out with the most recent being 450 cc. She feels that her weight has increased during this time, but has not measured herself. She continues to be good about her diet, but she has not been able to exercise much by walking. Past Medical/Surgical History Medical Problems: (1) Acute kidney injury (2) Acute on chronic diastolic CHF (congestive heart failure) (3) Acute pancreatitis (4) Acute respiratory failure with hypoxia (5) Acute systolic congestive heart failure (6) Acute urinary tract infection (7) Anemia (8) Anxiety (9) Arm pain, left (10) Asthma (11) Atrial fibrillation (12) Back pain (13) Cardiac pacemaker procedure (14) Cat bite of right lower leg with infection (15) Cellulitis (16) CHF (congestive heart failure) (17) Chronic obstructive pulmonary disease (18) Cirrhosis (19) CKD (chronic kidney disease) (20) Contrast dye induced nephropathy (21) COPD (chronic obstructive pulmonary disease) (22) COPD exacerbation (23) Deep venous thrombosis (24) Dehydration (25) Diabetes mellitus (26) Fever (27) Forearm contusion (28) Fracture of right distal radius (29) GI bleed (30) GI bleed (31) Guaiac + stool (32) History of mitral valve replacement with mechanical valve (33) Left hip pain (34) Medication adverse effect (35) Neck muscle spasm (36) Neck pain (37) PERSONAL HX OF TIA,& CEREBRAL INFARCTION W/OUT RES DEFICITS (38) Pleural effusion (39) Pleural effusion, right (40) PNA (pneumonia) (41) Pneumonia (42) Pulmonary HTN (43) Pulmonary vascular congestion (44) Rapid atrial fibrillation (45) Replacement of mitral valve with mechanical prosthesis (46) Respiratory distress (47) Respiratory failure (48) Rib contusion (49) Right arm fracture (50) Right arm fracture (51) Sepsis (52) Superficial phlebitis (53) Supratherapeutic INR (54) Upper respiratory infection Surgical Problems: (1) Cholecystectomy (2) Hysterectomy Family History Diabetes mellitus Heart disease Hypertension Social History Smoking Status: Former Smoker Smokeless Tobacco Use: No Alcohol Use: none Drug Use: none Marital Status: Housing status: lives with family Occupational Status: retired Immunizations History of Influenza Vaccine: Yes Influenza Vaccine Date: Dec 23, 2010 History of Tetanus Vaccine?: utd History of Pneumococcal: Yes History of Hepatitis B Vaccine: No Allergies Coded Allergies: Penicillins (Verified Allergy, Severe, anaphylaxis 30yrs ago, also broke out with sores, 01/30/17) NOTE: Timentin 05/2003 tolerated without problem Diltiazem (Verified Allergy, Unknown, unknown, 01/30/17) Levofloxacin (Verified Allergy, Unknown, UNKNOWN, 01/30/17) Moxifloxacin (Verified Allergy, Unknown, UNKNOWN, 01/30/17) Aspirin (Verified Adverse Reaction, Intermediate, increased bleeding (on warfarin), 01/30/17) Doxycycline (Verified Adverse Reaction, Intermediate, GI SYMPTOMS, ) Atorvastatin (Verified Adverse Reaction, Unknown, & Crestor = muscle aches /pains, 01/30/17) NSAIDs (Verified Adverse Reaction, Unknown, AVOID PER DR. HICKS - [id number] , 01/30/17) Nortriptyline (Verified Adverse Reaction, Unknown, choking on food, ) Quinidine (Verified Adverse Reaction, Unknown, flu-like symptoms, 01/30/17 ) Sulfamethoxazole w/Trimethoprim (Verified Adverse Reaction, Unknown, CONFUSION, 01/30/17) Home Medications Scheduled Cholecalciferol (Vitamin D3), 1,000 INTER.UNIT PO TID Cyanocobalamin (Vitamin B-12), 1,000 MCG PO QAM Diazepam (Valium), 5 MG PO HS Digoxin (Digoxin), 0.125 MG PO QAM Ezetimibe (Ezetimibe), 10 MG PO HS Fexofenadine Hcl (Vickie), 180 MG PO QAM Furosemide (Lasix), 80 MG PO BID/AM &NOON Gemfibrozil (Gemfibrozil), 600 MG PO BID Hydralazine Hcl (Apresoline), 25 MG PO BID Insulin Glargine (Lantus), 20-60 UNITS SQ AMPM Ipratropium-Albuterol (Duoneb), 1 TREATMENT INH QID Isosorbide Mononitrate (Isosorbide Mononitrate ER), 30 MG PO QAM Levothyroxine Sodium (Synthroid), 175 MCG PO DAILY Metoprolol Succ (Toprol Xl) (Toprol-Xl ), 100 MG PO DAILY Misc Natural Products (Osteo Bi-Flex Joint Shiel), 1 TAB PO BID Montelukast Sod (Montelukast Sodium), 10 MG PO QAM Pyridoxine (Vitamin B6), 100 MG PO QAM Spironolactone (Aldactone), 50 MG PO DAILY Trospium Chloride (Trospium Chloride), 20 MG PO DAILY Warfarin Sodium (Coumadin), 4 MG PO [id number] Warfarin Sodium (Coumadin), 2 MG PO WK Scheduled PRN Diclofenac Sodium (Topical) (Diclofenac Sodium), 1 APPLN TOP QID PRN for Pain- Affected Joints Insulin Aspart (Novolog), 1 DOSE SC ACHS PRN for As Needed Levalbuterol Tartrate (Levalbuterol Tartrate Hfa), 1-2 PUFFS INH q4-6h PRN for as directed Oxycodone HCl (Oxycodone HCl), 1-2 TABS PO Q4 PRN for Pain Review of Systems The patient denies chest pain, palpitations, sore throat, fevers, chills, sweats , nausea, vomiting, diarrhea , constipation, abdominal pain, pelvic pain, blood in urine or stool, dysuria, urinary frequency or urgency, loss of consciousness, rash, abnormal bruising or bleeding, focal weakness, back or neck pain, or night sweats. The review of systems is otherwise negative other than for that already noted above, and at least 10 systems have been reviewed. Physical Exam Vital Signs Date Time Temp Pulse Resp B/P (MAP) Pulse Ox O2 Delivery O2 Flow Rate FiO2 06/06/17 04:49 36.6 80 26 138/69 92 Room Air 06/06/17 03:24 75 24 140/65 95 Nasal Cannula 2.0 06/06/17 02:45 88 3/23/18 02:06 71 22 95 Nasal Cannula 2.0 06/06/17 02:01 101/45 06/06/17 01:06 76 21 95 Nasal Cannula 2.0 06/06/17 01:01 116/54 06/06/17 00:37 87 22 94 Nasal Cannula 2.0 06/06/17 00:01 120/59 06/05/17 23:57 129/60 06/05/17 23:56 95 Nasal Cannula 1.5 06/05/17 23:37 87 27 94 Nasal Cannula 2.0 06/05/17 23:32 80 32 92 Room Air 06/05/17 22:44 87 06/05/17 22:44 93 Room Air 06/05/17 22:39 36.8 73 24 143/76 93 Room Air 06/05/17 22:39 93 Room Air 06/05/17 22:38 143/76 The patient is awake, alert and oriented 3, normocephalic and atraumatic, looks fatigued, lying in bed and in no acute distress. HEENT--PERRL, EOMI, mucous membranes and oropharynx dry. Neck--supple. No JVD. No bruits. Thyroid normal, trachea midline, no adenopathy. Heart--normal S1 and S2. No murmurs, rubs or gallops. Lungs/chest wall--crackles at the bases bilaterally, no respiratory distress, no accessory muscle use. Right Pleurx catheter. Abdomen--normal bowel sounds and soft. Nontender. Nondistended, no hernias or masses. Extremities--bilateral lower extremities with tense 3+ pitting edema, extending up to groin and including 1+ pitting edema abdominal wall. Dermatologic--scattered ecchymoses. Neurologic--cranial nerves II through XII grossly intact. Rheumatologic--range of motion of bilateral lower extremities limited due to edema. Psychiatric--normal affect. Diagnostics Laboratory Results Results Past 24 Hours Test 06/05/17 22:20 06/05/17 23:52 Range/Units White Blood Count 6.25 4.8-10.8 K/uL Red Blood Count 3.79 4.2-5.4 M/uL Hemoglobin 9.2 12.0-16.0 g/dL Hematocrit 30.5 37-47 % Mean Corpuscular Volume 80.5 80-100 fL Mean Corpuscular Hemoglobin 24.3 25-34 pg Mean Corpuscular Hemoglobin Concent 30.2 32-36 g/dl Platelet Count 235 130-400 K/uL Mean Platelet Volume 9.8 7.4-10.4 fL Neutrophils (%) (Auto) 63.4 % Lymphocytes (%) (Auto) 15.8 % Monocytes (%) (Auto) 15.5 % Eosinophils (%) (Auto) 4.2 % Basophils (%) (Auto) 0.8 % Neutrophils # (Auto) 3.96 1.4-6.5 K/uL Lymphocytes # (Auto) 0.99 1.2-3.4 K/uL Monocytes # (Auto) 0.97 0.11-0.59 K/uL Eosinophils # (Auto) 0.26 0-0.5 K/uL Basophils # (Auto) 0.05 0-0.2 K/uL RDW Standard Deviation 52.8 36.4-46.3 fL RDW Coefficient of Variation 18.0 11.5-14.5 % Immature Granulocyte % (Auto) 0.3 % Immature Granulocyte # (Auto) 0.02 0.00-0.02 K/uL Prothrombin Time 38.5 9.0-12.0 SECONDS Prothromb Time International Ratio 3.8 0.9-1.1 Sodium Level 138 136-145 mmol/L Potassium Level 4.1 3.5-5.1 mmol/L Chloride Level 108 98-107 mmol/L Carbon Dioxide Level 21 21-32 mmol/L Anion Gap 10.0 3-11 mmol/L Blood Urea Nitrogen 48 7-18 mg/dl Creatinine 2.14 0.60-1.20 mg/dl Est Creatinine Clear Calc Drug Dose 28.8 ml/min Estimated GFR () 25.4 Estimated GFR (Non- 21.9 BUN/Creatinine Ratio 22.2 10-20 Random Glucose 204 70-99 mg/dl Calcium Level 8.6 8.5-10.1 mg/dl Phosphorus Level 3.1 2.5-4.9 mg/dl Magnesium Level 2.3 1.8-2.4 mg/dl Total Bilirubin 0.3 0.2-1 mg/dl Aspartate Amino Transf (AST/SGOT) 41 15-37 U/L Alanine Aminotransferase (ALT/SGPT) 31 12-78 U/L Alkaline Phosphatase 100 45-117 U/L Troponin I 0.017 0-0.045 ng/ml Pro-B-Type Natriuretic Peptide 813 0-900 pg/ml Total Protein 6.9 6.4-8.2 gm/dl Albumin 3.1 3.4-5.0 gm/dl Globulin 3.8 2.5-4.0 gm/dl Albumin/Globulin Ratio 0.8 0.9-2 Digoxin Level 0.5 0.8-2.0 ng/ml Arterial Blood pH 7.39 7.35-7.45 Arterial Blood Partial Pressure CO2 38 35-46 mmHg Arterial Blood Partial Pressure O2 93 80-95 mm/Hg Arterial Blood HCO3 23 19-24 mmol/L Arterial Blood Oxygen Saturation 96.0 90-95 % Arterial Blood Base Excess -2.2 -9-1.8 mEq/L Arterial Blood Gas Delivery 1.5 Warren Test POS POS Diagnostic Radiology Chest x-ray shows mild CHF. EKG EKG shows atrial fibrillation with frequent ventricular paced complexes at 77 bpm, right bundle branch, no acute ST-T changes Impression Assessment and Plan Anasarca/acute on chronic diastolic CHF/atrial fibrillation/ventricular pacer/ failure of outpatient treatment-- The patient will be admitted to telemetry for serial cardiac enzymes, serial EKG's, cardiac rhythm monitoring and a 2-D echocardiogram with Dopplers. Change from Lasix 80 mg p.o. twice daily to 80 mg IV twice daily, with first dose tonight. Increase spironolactone from 50 mg every morning to twice daily, with first dose tonight. If the patient does not have adequate response to this regimen, she will likely need to be placed on a Lasix drip. Continue digoxin 0.125 mg daily, hydralazine 25 mg p.o. twice daily, isosorbide mononitrate ER 30 mg every morning, metoprolol succinate 100 mg p.o. every morning, and for now reduce warfarin to 3 mg daily after skipping today's dose. We will consult her warrant clerk Dr. Wong. The Pleurx catheter placed by Dr. Cueva does appear to be functioning properly. Diabetes mellitus-- Continue Lantus insulin at her lower range of 20 units subcu twice daily. Placed on Accu-Cheks before meals and at bedtime with NovoLog coverage per scale. COPD-- Place on duo nebs every 4 hours while awake and every 2 hours as needed Insomnia/anxiety-- Continue diazepam 5 mg p.o. at bedtime. Hyperlipidemia-- Continue Zetia 10 mg daily and gemfibrozil 600 mg p.o. twice daily. Hypothyroidism-- Continue levothyroxine sodium at 175 mcg daily. Vitamin B12 deficiency-- Continue supplement 1000 mcg daily Chronic pain-- Continue oxycodone 5 mg p.o. every 4 hours as needed severe pain. Advanced Directives Existing Advance Directive: No Existing Living Will: No Existing Power of Manager Reimbursement: No Resuscitation Status VTE Prophylaxis Will order VTE Prophylaxis: Yes
[2017-06-06] MEDS: LEVOTHYROXINE 175 MCG TAB PO SCH (06:44)
--- NOTE | 2017-06-06 06:56 | DIAGNOSTIC IMAGING REPORT ---
CHEST ONE VIEW PORTABLE CLINICAL HISTORY: Shortness of breath COMPARISON STUDY: 05/26/2017 FINDINGS: There are postsurgical changes of a midline sternotomy and valvular replacement. The heart remains enlarged. There is a left subclavian single lead central venous pacemaker. There is radiographic evidence of congestive failure/fluid overload. There is a small right pleural effusion. A right pleural drain is again visualized.[ IMPRESSION: Cardiomegaly and mild congestive failure/fluid overload. Small right pleural effusion. No change in the position of the right-sided pleural drain. Electronically signed by: Nikita Culp M.D. 06/06/2017 6:55 AM Dictated Date/Time: 06/06/2017 6:53 AM
[2017-06-06] MEDS: ALBUT/IPRATROP 3MG/0.5MG NEB 3 ML VIAL INH SCH ×4 (07:24→20:55)
[2017-06-06] MEDS: INSULIN GLARGINE SOLOSTAR 100 UNITS/ML 3 ML PEN SQ SCH ×2 (09:00→20:31)
[2017-06-06] MEDS: FEXOFENADINE HCL 180 MG TAB PO SCH (09:23)
[2017-06-06] MEDS: ISOSORBIDE MONONITRATE 30 MG TABCR PO SCH (09:24)
[2017-06-06] MEDS: MONTELUKAST SOD 10 MG TAB PO SCH (09:24)
[2017-06-06] MEDS: METOPROLOL SUCC 50MG EXT REL TAB PO SCH (09:24)
[2017-06-06] MEDS: CYANOCOBALAMIN 500 MCG TAB (VIT B-12) PO SCH (09:25)
[2017-06-06] MEDS: PYRIDOXINE HCL 50 MG TAB PO SCH (09:31)
[2017-06-06] MEDS: INSULIN ASPART 100 UNITS/ML 3 ML PEN SC SCH ×4 (09:37→20:30)
--- NOTE | 2017-06-06 10:56 | ECHOCARDIOGRAM REPORT ---
*NOTICE TO RECEIVING DEMOCRAT AGENCY This information is strictly Confidential and protected under [place] law. [place] law prohibits you from making any further disclosure of this information unless further disclosure is expressly permitted by the written consent of the person to whom it pertains or is authorized by law. A general authorization for the release of medical or other information is not sufficient for this purpose. Hospital accepts no responsibility if the information is made available to any other person, INCLUDING THE PATIENT. Interpretation Summary * Name: MAGNUS ZIEGLER Study Date: 06/06/2017 06:19 AM BP: 138/69 mmHg * Patient Location: C.2T\S\S242\S\1 HR: 80 * : 1940 (M/d/yyyy) Gender: Female Height: 65 in * Age: 77 yrs Ethnicity: [place] Weight: 186 lb * Ordering Physician: Niles Estrada * Referring Physician: Self, Referred * Performed By: Ivana Harkins RDCS * * Reason For Study: Ansarca, CHF * BSA: 1.9 m2 * -- Conclusions -- * 1. Normal left ventricular size and systolic function. EF 60-65%. No regional wall motion abnormalities. Severe concentric left ventricular hypertrophy. Septal flattening during diastole and systole suggests right ventricular volume and pressure overload. * 2. The right ventricle is mildly dilated. * 3. The left atrium is severely dilated. * 4. The right atrium is moderately dilated. * 5. Sclerotic aortic valve without significant stenosis. * 6. Mechanical mitral valve prosthesis, with elevated transvalvular mitral gradients and velocities. * 7. There is moderate to severe tricuspid regurgitation. * 8. Severely elevated right ventricular systolic pressure; 71mmHg. * 9. Compared to prior study on 04/30/2017, transvalvular mitral velocities and gradients are stable. Procedure Details * A complete two-dimensional transthoracic echocardiogram was performed (2D, M-mode, Doppler and color flow Doppler). Left Ventricle * Normal left ventricular size and systolic function. EF 60-65%. No regional wall motion abnormalities. Severe concentric left ventricular hypertrophy. Septal flattening during diastole and systole suggests right ventricular volume and pressure overload. Right Ventricle * There is a pacemaker lead in the right ventricle. * The right ventricle is mildly dilated. * The right ventricular systolic function is normal as assessed by tricuspid annular plane systolic excursion (TAPSE) (normal >1.5 cm). Atria * The left atrium is severely dilated. * The right atrium is moderately dilated. * There is no evidence of atrial septal defect, but resolution does not allow assessment for a patent foramen ovale. Mitral Valve * Mechanical mitral valve prosthesis not well visualized. Elevated transvalvular gradients and velocities. * No significant mitral regurgitation visualized. Tricuspid Valve * The tricuspid valve is not well visualized, but is grossly normal. * There is no tricuspid stenosis. * There is moderate to severe tricuspid regurgitation. Aortic Valve * The aortic valve is trileaflet. * Sclerotic aortic valve without significant stenosis. * No hemodynamically significant valvular aortic stenosis. * Trace aortic regurgitation. Pulmonic Valve * The pulmonic valve is not well seen, but is grossly normal. * There is no pulmonic valvular stenosis. * Mild pulmonic valvular regurgitation. Great Vessels * The aortic root is normal size. * Ascending aorta of normal dimension Pericardium/Pleural * There is no pericardial effusion. Great Vessels * Severely dilated IVC with reduced inspiratory collapse. MMode 2D Measurements and Calculations IVSd 1.7 cm IVSs 1.8 cm LVIDd 4.4 cm LVIDs 2.7 cm LVPWd 2.0 cm LVPWs 2.5 cm IVS/LVPW 0.85 FS 37.9 % EDV(Teich) 85.4 ml ESV(Teich) 27.1 ml EF(Teich) 68.2 % EDV(cubed) 82.3 ml ESV(cubed) 19.8 ml EF(cubed) 76.0 % % IVS thick 8.1 % % LVPW thick 23.3 % LV mass(C)d 364.3 grams LV mass(C)dI 190.0 grams/m\S\2 LV mass(C)s 268.8 grams LV mass(C)sI 140.1 grams/m\S\2 SV(Teich) 58.3 ml SI(Teich) 30.4 ml/m\S\2 SV(cubed) 62.6 ml SI(cubed) 32.6 ml/m\S\2 Ao root diam 3.3 cm Ao root area 8.7 cm\S\2 ACS 1.5 cm LA dimension 6.0 cm asc Aorta Diam 3.1 cm LA/Ao 1.8 LVOT diam 2.0 cm LVOT area 3.3 cm\S\2 LVAd ap4 23.3 cm\S\2 LVLd ap4 8.3 cm EDV(MOD-sp4) 57.1 ml EDV(sp4-el) 55.4 ml LVAs ap4 13.7 cm\S\2 LVLs ap4 7.5 cm ESV(MOD-sp4) 21.9 ml ESV(sp4-el) 21.3 ml EF(MOD-sp4) 61.7 % EF(sp4-el) 61.6 % LVAd ap2 24.9 cm\S\2 LVLd ap2 7.4 cm EDV(MOD-sp2) 73.3 ml EDV(sp2-el) 70.7 ml LVAs ap2 14.4 cm\S\2 LVLs ap2 6.6 cm ESV(MOD-sp2) 29.1 ml ESV(sp2-el) 26.6 ml EF(MOD-sp2) 60.4 % EF(sp2-el) 62.4 % LVLd %diff -11.80 % EDV(MOD-bp) 68.8 ml LVLs %diff -13.73 % ESV(MOD-bp) 26.6 ml EF(MOD-bp) 61.3 % SV(MOD-sp4) 35.2 ml SI(MOD-sp4) 18.4 ml/m\S\2 SV(MOD-sp2) 44.2 ml SI(MOD-sp2) 23.1 ml/m\S\2 SV(MOD-bp) 42.1 ml SI(MOD-bp) 22.0 ml/m\S\2 SV(sp4-el) 34.1 ml SI(sp4-el) 17.8 ml/m\S\2 SV(sp2-el) 44.1 ml SI(sp2-el) 23.0 ml/m\S\2 Doppler Measurements and Calculations MV E max jacqueline 221.6 cm/sec MV V2 max 257.9 cm/sec MV max PG 26.6 mmHg MV V2 mean 131.3 cm/sec MV mean PG 8.9 mmHg MV V2 VTI 52.7 cm MVA(VTI) 1.4 cm\S\2 MV P1/2t max jacqueline 271.0 cm/sec MV P1/2t 99.1 msec MVA(P1/2t) 2.2 cm\S\2 MV dec slope 800.9 cm/sec\S\2 MV dec time 0.29 sec Ao V2 max 212.4 cm/sec Ao max PG 18.1 mmHg Ao max PG (full) 13.8 mmHg Ao V2 mean 130.3 cm/sec Ao mean PG 8.1 mmHg Ao mean PG (full) 5.8 mmHg Ao V2 VTI 41.7 cm JAC(I,A) 1.7 cm\S\2 JAC(I,D) 1.7 cm\S\2 JAC(V,A) 1.6 cm\S\2 JAC(V,D) 1.6 cm\S\2 AI max jacqueline 313.6 cm/sec AI max PG 39.3 mmHg AI dec slope 239.5 cm/sec\S\2 AI P1/2t 383.5 msec LV V1 max PG 4.3 mmHg LV V1 mean PG 2.3 mmHg LV V1 max 103.4 cm/sec LV V1 mean 70.0 cm/sec LV V1 VTI 21.9 cm SV(Ao) 362.1 ml SI(Ao) 188.8 ml/m\S\2 SV(LVOT) 71.7 ml SI(LVOT) 37.4 ml/m\S\2 PA V2 max 145.2 cm/sec PA max PG 8.4 mmHg PI max jacqueline 259.3 cm/sec PI max PG 26.9 mmHg PI dec slope 734.0 cm/sec\S\2 PI P1/2t 103.4 msec TR max jacqueline 375.1 cm/sec RVSP(TR) 71.3 mmHg RAP systole 15.0 mmHg
[2017-06-06 11:02] LABS: INR 4.7 (0.9-1.1)
[2017-06-06 11:16] LABS: CREATININE 1.95 mg/dl (0.60-1.20)
[2017-06-06 11:17] LABS: CALCIUM 8.6 mg/dl (8.5-10.1); POTASSIUM 3.8 mmol/L (3.5-5.1)
[2017-06-06 11:21] LABS: CKMB 1.7 ng/ml (0.5-3.6)
[2017-06-06] MEDS: CHOLECALCIFEROL 1000 INTER.UNIT TAB PO SCH ×2 (13:32→20:25)
--- NOTE | 2017-06-06 15:00 | DIAGNOSTIC IMAGING REPORT ---
ABDOMEN COMPLETE (US) HISTORY: Hepatic cirrhosis ?cirrhosis?. COMPARISON: 07/24/2016 FINDINGS: Pancreas: The pancreas demonstrates a normal echotexture. Liver: Heterogeneous internal architecture. Maximum dimension 21 cm. Gallbladder: Surgically removed CBD: 6 mm Kidneys: No hydronephrosis. Spleen: Mild prominent size at 13 cm. Aorta: Normal in caliber. IVC: Patent. Ascites. Trace is present. IMPRESSION: 1. Heterogeneity of liver internal architecture with no focal abnormality. 2. Mild splenomegaly at 13 cm. 3. Trace ascites. 4. Early hepatic cirrhosis potentially is present. 5. Prior cholecystectomy. The above report was generated using voice recognition software. It may contain grammatical, syntax or spelling errors. Electronically signed by: Zak Olson M.D. 06/06/2017 2:58 PM Dictated Date/Time: 06/06/2017 2:56 PM
[2017-06-06] MEDS: SPIRONOLACTONE 25 MG TAB PO SCH (15:42)
[2017-06-06] MEDS: BUMETANIDE IV 2 MG in SYRINGE 0 ML IV SCH (15:42)
[2017-06-06] MEDS: DIGOXIN 0.125 MG TAB PO SCH (15:43)
[2017-06-06] MEDS ORDERED: FUROSEMIDE INJ 80 MG in SYRINGE 0 ML IV SCH (17:00)
[2017-06-06 19:41] LABS: CKMB 1.8 ng/ml (0.5-3.6)
[2017-06-06] MEDS: DIAZEPAM 5MG TAB PO SCH (20:24)
[2017-06-06] MEDS: EZETIMIBE 10MG TAB PO SCH (20:24)
[2017-06-06] MEDS: GEMFIBROZIL 600 MG TAB PO SCH (20:26)
--- NOTE | 2017-06-06 21:31 | Progress Note ---
Subjective Date of Service: Jun 06, 2017. Subjective Pt evaluation today including: conversation w/ patient, physical exam, chart review, lab review, review of studies, conversation w/ workforce management consultant (cardiology), review of inpatient medication list Pain: denies PO Intake: fair Voiding: no voiding problems tele - pacing overnight at times with underlying a. fib c/o severe LE edema and pelvic/abdominal edema mild dyspnea on exertion reports was taking 80mg BID of lasix at home but gained 20-25 pounds in the last few weeks at home sees Dr. Lunsford for her cardiac needs and Dr. Wong for her CKD Problem List Medical Problems: (1) Anasarca Status: Acute (2) Anxiety Status: Acute (3) Arm pain, left Status: Acute (4) Back pain Status: Acute (5) Cat bite of right lower leg with infection Status: Acute (6) Cellulitis Status: Acute (7) CHF (congestive heart failure) Status: Acute (8) Chronic obstructive pulmonary disease Status: Acute (9) CKD (chronic kidney disease) Status: Chronic (10) COPD exacerbation Status: Acute (11) Dehydration Status: Acute (12) Dyspnea Status: Acute (13) Fever Status: Acute (14) Fracture of right distal radius Status: Acute (15) GI bleed Status: Acute (16) GI bleed Status: Acute (17) Guaiac + stool Status: Acute (18) Left hip pain Status: Acute (19) Medication adverse effect Status: Acute (20) Pleural effusion Status: Acute (21) PNA (pneumonia) Status: Acute (22) Pulmonary HTN Status: Acute (23) Rapid atrial fibrillation Status: Acute (24) Respiratory distress Status: Acute (25) Right arm fracture Status: Acute (26) Superficial phlebitis Status: Acute (27) Supratherapeutic INR Status: Acute Review of Systems Constitutional: No fever Respiratory: + dyspnea on exertion, No cough Cardiac: + orthopnea, + edema, No chest pain Abdomen: No pain Objective Vital Signs Date Time Temp Pulse Resp B/P (MAP) Pulse Ox O2 Delivery O2 Flow Rate FiO2 06/06/17 20:55 72 14 95 Room Air 06/06/17 20:10 Room Air 06/06/17 19:21 36.8 59 20 103/50 (67) 96 06/06/17 16:00 94 Room Air 3/23/18 15:43 75 06/06/17 15:37 36.9 60 20 99/44 (62) 98 Room Air 06/06/17 15:24 78 14 95 Nasal Cannula 3.0 06/06/17 12:00 Room Air 06/06/17 12:00 Room Air 06/06/17 11:43 36.7 66 20 101/38 (59) 93 Room Air 06/06/17 11:09 78 14 95 Nasal Cannula 3.0 06/06/17 08:00 Room Air 06/06/17 07:38 80 14 95 Nasal Cannula 3.0 06/06/17 07:34 36.6 73 18 102/56 (71) 92 Room Air 06/06/17 04:49 36.6 80 26 138/69 92 Room Air 06/06/17 03:24 75 24 140/65 95 Nasal Cannula 2.0 06/06/17 02:45 88 06/06/17 02:06 71 22 95 Nasal Cannula 2.0 06/06/17 02:01 101/45 06/06/17 01:06 76 21 95 Nasal Cannula 2.0 06/06/17 01:01 116/54 06/06/17 00:37 87 22 94 Nasal Cannula 2.0 06/06/17 00:01 120/59 06/05/17 23:57 129/60 06/05/17 23:56 95 Nasal Cannula 1.5 06/05/17 23:37 87 27 94 Nasal Cannula 2.0 06/05/17 23:32 80 32 92 Room Air 06/05/17 22:44 87 06/05/17 22:44 93 Room Air 06/05/17 22:39 36.8 73 24 143/76 93 Room Air 06/05/17 22:39 93 Room Air 06/05/17 22:38 143/76 Physical Exam General Appearance: no apparent distress ENT: pharynx normal Neck: + JVD (to the jaw) Respiratory/Chest: no respiratory distress, no accessory muscle use, + decreased breath sounds (both bases), + crackles (both bases) Cardiovascular: regular rate, rhythm, + systolic murmur (2/6 LSB), + gallop/S3 (vs widely split s2 ), + pertinent finding (mech valve closure sound) Abdomen: normal bowel sounds, non tender, no organomegaly, + distended (mild - ascites?), + hepatomegaly (mild), + splenomegaly Extremities: + pedal edema, + swelling (severe - from foot to hips, 3-4+ b/l ) Neurologic/Psychiatric: alert, oriented x 3, + pertinent finding Skin: + pallor Laboratory Results Last 24 Hours Test 06/05/17 22:20 06/05/17 23:52 06/06/17 06:28 06/06/17 10:34 White Blood Count 6.25 K/uL Red Blood Count 3.79 M/uL Hemoglobin 9.2 g/dL Hematocrit 30.5 % Mean Corpuscular Volume 80.5 fL Mean Corpuscular Hemoglobin 24.3 pg Mean Corpuscular Hemoglobin Concent 30.2 g/dl Platelet Count 235 K/uL Mean Platelet Volume 9.8 fL Neutrophils (%) (Auto) 63.4 % Lymphocytes (%) (Auto) 15.8 % Monocytes (%) (Auto) 15.5 % Eosinophils (%) (Auto) 4.2 % Basophils (%) (Auto) 0.8 % Neutrophils # (Auto) 3.96 K/uL Lymphocytes # (Auto) 0.99 K/uL Monocytes # (Auto) 0.97 K/uL Eosinophils # (Auto) 0.26 K/uL Basophils # (Auto) 0.05 K/uL RDW Standard Deviation 52.8 fL RDW Coefficient of Variation 18.0 % Immature Granulocyte % (Auto) 0.3 % Immature Granulocyte # (Auto) 0.02 K/uL Prothrombin Time 38.5 SECONDS 47.6 SECONDS Prothromb Time International Ratio 3.8 4.7 Sodium Level 138 mmol/L 139 mmol/L Potassium Level 4.1 mmol/L 3.8 mmol/L Chloride Level 108 mmol/L 108 mmol/L Carbon Dioxide Level 21 mmol/L 23 mmol/L Anion Gap 10.0 mmol/L 7.0 mmol/L Blood Urea Nitrogen 48 mg/dl 49 mg/dl Creatinine 2.14 mg/dl 1.95 mg/dl Est Creatinine Clear Calc Drug Dose 28.8 ml/min 26.8 ml/min Estimated GFR () 25.4 28.5 Estimated GFR (Non- 21.9 24.6 BUN/Creatinine Ratio 22.2 25.2 Random Glucose 204 mg/dl 119 mg/dl Calcium Level 8.6 mg/dl 8.6 mg/dl Phosphorus Level 3.1 mg/dl Magnesium Level 2.3 mg/dl Total Bilirubin 0.3 mg/dl Aspartate Amino Transf (AST/SGOT) 41 U/L Alanine Aminotransferase (ALT/SGPT) 31 U/L Alkaline Phosphatase 100 U/L Troponin I 0.017 ng/ml < 0.015 ng/ml Pro-B-Type Natriuretic Peptide 813 pg/ml Total Protein 6.9 gm/dl Albumin 3.1 gm/dl Globulin 3.8 gm/dl Albumin/Globulin Ratio 0.8 Digoxin Level 0.5 ng/ml Arterial Blood pH 7.39 Arterial Blood Partial Pressure CO2 38 mmHg Arterial Blood Partial Pressure O2 93 mm/Hg Arterial Blood HCO3 23 mmol/L Arterial Blood Oxygen Saturation 96.0 % Arterial Blood Base Excess -2.2 mEq/L Arterial Blood Gas Delivery 1.5 Warren Test POS Bedside Glucose 105 mg/dl Total Creatine Kinase 63 U/L Creatine Kinase MB 1.7 ng/ml Creatine Kinase MB Ratio 2.7 Test 06/06/17 10:58 06/06/17 16:16 06/06/17 18:47 06/06/17 20:16 Bedside Glucose 119 mg/dl 124 mg/dl 161 mg/dl Total Creatine Kinase 59 U/L Creatine Kinase MB 1.8 ng/ml Creatine Kinase MB Ratio 3.1 Troponin I < 0.015 ng/ml Assessment and Plan 77yo female - 1. acute/chronic diastolic CHF with suspected right-sided heart failure as well in the setting of pulmonary HTN - due to CKD stage 4 will try bumex in ronald of lasix IV. Ordered bumex 2mg IV BID. Will continue aldactone BID as ordered by admitting physician. Is mitral valve dysfunction causing the pulmonary HTN and in turn her CHF? Repeat echo results reviewed. I spoke with Dr. Tapia, cardiology, who will consult tomorrow. She is up 25 pounds in about 1 month. 2. severe pulmonary HTN - due to mitral valve disease? idiopathic? Other? Has h/o COPD but doubt it is severe enough to cause her elevated PA pressure. No h/o PE. 3. right-sided pleurX catheter for reaccumulating transudative pleural effusion - drain daily. Curb-sided Dr. Cueva who simply recommends daily catheter drainage. 4. CKD stage 4 - followed by Dr. Wong. Daily BMP. Creatinine is at baseline. 5. ?cirrhosis - imaging studies dating back to 2013 show cirrhotic changes. This could be from chronic passive congestion from CHF or could be due to DAIGLE from previous fatty liver. Check abdominal u/s, assess amount of ascites, etc. Check ammonia level in am. 6. a. fib with pacemaker in place - cont BB, cont coumadin. Pacemaker interrogation to ensure proper pacer function. Cardiology consult. 7. supratherapeutic INR - hold coumadin. Due to liver dysfunction? Poor oral intake? 8. hypothyroidism - TSH fall 2016 was wnl. Cont synthroid same dose. 9. T2DM - controlled. 10. h/o COPD - not active at this time. 11. mechanical mitral valve - on chronic coumadin - d/w Dr. Lunsford the valve function. There has been some intermittent concern that the valve is dysfunctional leading to her pulmonary HTN and CHF. Limited echo this admission unchanged from prior echo. I also discussed the valve function w/ Dr. Tapia who will comment on this issue. INR goal 2.5-3.5. 12. HTN - controlled at this time. 13. hyperlipidemia - continue outpatient meds. will need PT & OT evals Continued [facility] stay due to: multiple IV medications needed Discharge planning: uncertain
[2017-06-07] VITALS (15 sets, daily range): BP systolic 104–133; BP diastolic 45–69; PULSE 61–103; TEMP 36.4–37.3; O2SAT 93–99
[2017-06-07] MEDS: LEVOTHYROXINE 175 MCG TAB PO SCH (06:14)
[2017-06-07] MEDS: ALBUT/IPRATROP 3MG/0.5MG NEB 3 ML VIAL INH SCH ×4 (07:06→19:24)
[2017-06-07 07:30] LABS: INR 3.1 (0.9-1.1)
[2017-06-07 07:53] LABS: BASO % 0.5 %; BASO ABS # 0.03 K/uL (0-0.2); EOS % 5.3 %; EOS ABS # 0.34 K/uL (0-0.5); HEMATOCRIT 30.1 % (37-47); IG# 0.01 K/uL (0.00-0.02); LYMPH % 15.3 %; LYMPH ABS # 0.99 K/uL (1.2-3.4); MEAN CELL VOLUME 80.9 fL (80-100); MEAN CORPUSCULAR HEMOGLOBIN 24.2 pg (25-34); MEAN CORPUSCULAR HGB CONC 29.9 g/dl (32-36); MEAN PLATELET VOLUME 9.2 fL (7.4-10.4); MONO % 14.4 %; MONO ABS # 0.93 K/uL (0.11-0.59); NEUT % 64.3 %; NEUT ABS # 4.16 K/uL (1.4-6.5); PLATELET COUNT 209 K/uL (130-400); RED CELL DISTRIBUTION WIDTH CV 18.3 % (11.5-14.5); RED CELL DISTRIBUTION WIDTH SD 54.1 fL (36.4-46.3); WHITE BLOOD COUNT 6.46 K/uL (4.8-10.8)
[2017-06-07 07:57] LABS: CALCIUM 8.5 mg/dl (8.5-10.1); CREATININE 2.18 mg/dl (0.60-1.20); POTASSIUM 4.2 mmol/L (3.5-5.1)
[2017-06-07] MEDS: PYRIDOXINE HCL 50 MG TAB PO SCH (07:59)
[2017-06-07] MEDS: SPIRONOLACTONE 25 MG TAB PO SCH ×2 (07:59→16:55)
[2017-06-07] MEDS: CYANOCOBALAMIN 500 MCG TAB (VIT B-12) PO SCH (08:00)
[2017-06-07] MEDS: METOPROLOL SUCC 50MG EXT REL TAB PO SCH (08:00)
[2017-06-07] MEDS: CHOLECALCIFEROL 1000 INTER.UNIT TAB PO SCH ×3 (08:01→20:33)
[2017-06-07] MEDS: GEMFIBROZIL 600 MG TAB PO SCH ×2 (08:02→20:32)
[2017-06-07] MEDS: ISOSORBIDE MONONITRATE 30 MG TABCR PO SCH (08:03)
[2017-06-07] MEDS: FEXOFENADINE HCL 180 MG TAB PO SCH (08:04)
[2017-06-07] MEDS: MONTELUKAST SOD 10 MG TAB PO SCH (08:04)
[2017-06-07] MEDS: INSULIN ASPART 100 UNITS/ML 3 ML PEN SC SCH ×4 (08:11→20:34)
[2017-06-07] MEDS: BUMETANIDE IV 2 MG in SYRINGE 0 ML IV SCH ×2 (08:42→16:55)
[2017-06-07] MEDS: LACTULOSE SYRUP 10 GM/15 ML BTL 473 ML PO SCH (08:42)
[2017-06-07] MEDS: INSULIN GLARGINE SOLOSTAR 100 UNITS/ML 3 ML PEN SQ SCH ×2 (08:43→20:37)
[2017-06-07] MEDS: ACETAMINOPHEN 325 MG TAB PO PRN ×2 (15:31→23:33)
[2017-06-07] MEDS: DIGOXIN 0.125 MG TAB PO SCH (15:32)
--- NOTE | 2017-06-07 18:25 | Cardiology Consultation ---
Cardiology Consultation Date of Consultation: Jun 07, 2017. Requesting Physician: Mirna Reason for Consultation: Edema, Cor Pulmonale Pt evaluation today including: conversation w/ patient, physical exam, chart review, lab review, review of studies, review of inpatient medication list, conversation w/ attending History of Present Illness The patient is a 77-year-old woman with a complex medical history who presented to [facility] with progressive lower extremity edema and abdominal fullness. Patient states that several weeks ago she began to notice worsening edema in her lower extremities. This was progressive in nature and eventually came to involve her abdomen and lower back as well. On an outpatient basis she had been prescribed escalating doses of diuretic without any notable change. Eventually progressed to the point where she had difficulty with ambulation and she could not bend her legs. In this setting she presented to [facility] Emergency room was admitted for more aggressive diuresis. The patient states that her breathing has been at baseline. In the past she has had some difficulty with breathing related to pleural effusions. However, she has a PleurX catheter in place and has a drain by a visiting nurse on a daily basis. She states that they generally drain between 400-600 milliliters of fluid daily. She does not have any orthopnea. She did not report paroxysmal nocturnal dyspnea and does not feel that she is hypoxic at night. In the past she had been prescribed oxygen at nighttime for desaturation. She is not currently use oxygen at home. She has limited ambulation due to her edema, but did not report difficulty with breathing or limitations secondary to shortness of breath. She has not had symptoms of chest pain. She denies symptoms of dizziness or lightheadedness. She denies any palpitations or rapid heartbeats. She has not had a change in her diet recently. Past Medical/Surgical History Valvular heart disease with mitral valve replacement involving a Dowd-Lee ball and cage valve 1985 Nonobstructive coronary disease Left ventricular hypertrophy, moderate Pulmonary hypertension, severe Cor pulmonale Aortic regurgitation Atrial fibrillation, permanent Symptomatic bradycardia requiring pacemaker placement Cerebral vascular accident x3 Diabetes mellitus with associated neuropathy COPD Crohn's disease Chronic renal insufficiency Gastroesophageal reflux Breast cancer Pancreatitis Past surgical history: Placement of right PleurX catheter Mitral valve replacement as noted above 1985 Cholecystectomy Hysterectomy Breast lumpectomy Medtronic pacemaker placement initially 1993 and generator change in 2008 Family History Diabetes mellitus Heart disease Hypertension Noncontributory given her advanced age and current comorbidities Social History Smoking Status: Former Smoker History of Alcohol Use: No Currently lives independently with her who requires care for dementia. 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 Review of Systems Respiratory: + dyspnea on exertion, No cough Cardiac: + orthopnea, + edema, No chest pain Per HPI. No fevers or chills recently. Some loose stools currently due to lactulose administration. All Other Systems: Reviewed and Negative Allergies Coded Allergies: Penicillins (Verified Allergy, Severe, anaphylaxis 30yrs ago, also broke out with sores, 01/30/17) NOTE: Timentin 05/2003 tolerated without problem Diltiazem (Verified Allergy, Unknown, unknown, 01/30/17) Levofloxacin (Verified Allergy, Unknown, UNKNOWN, 01/30/17) Moxifloxacin (Verified Allergy, Unknown, UNKNOWN, 01/30/17) Aspirin (Verified Adverse Reaction, Intermediate, increased bleeding (on warfarin), 01/30/17) Doxycycline (Verified Adverse Reaction, Intermediate, GI SYMPTOMS, ) Atorvastatin (Verified Adverse Reaction, Unknown, & Crestor = muscle aches /pains, 01/30/17) NSAIDs (Verified Adverse Reaction, Unknown, AVOID PER DR. HICKS - [id number] , 01/30/17) Nortriptyline (Verified Adverse Reaction, Unknown, choking on food, ) Quinidine (Verified Adverse Reaction, Unknown, flu-like symptoms, 01/30/17 ) Sulfamethoxazole w/Trimethoprim (Verified Adverse Reaction, Unknown, CONFUSION, 01/30/17) Medications Current Inpatient Medications Medications (Trade) Dose Ordered Sig/Albin Route Start Time Stop Time Status Last Admin Dose Admin Acetaminophen (Tylenol Tab) 650 mg Q4H PRN PO 06/06/17 02:45 07/06/17 02:44 06/07/17 15:31 650 MG Al Hydrox/Mg Hydrox/Simethicone (Maalox Max Susp) 15 ml Q4H PRN PO 06/06/17 02:45 07/06/17 02:44 Magnesium Hydroxide (Milk Of Magnesia Susp) 30 ml Q12H PRN PO 06/06/17 02:45 07/06/17 02:44 Polyethylene (Miralax Powder Packet) 17 gm DAILY PRN PO 06/06/17 02:45 07/06/17 02:44 Cyanocobalamin (Vitamin B-12 Tab) 1,000 mcg QAM PO 06/06/17 09:00 07/06/17 08:59 06/07/17 08:00 1,000 MCG Diazepam (Valium Tab) 5 mg HS PO 06/06/17 21:00 07/06/17 20:59 06/06/17 20:24 5 MG Digoxin (Lanoxin Tab) 0.125 mg DAILY@1600 PO 06/06/17 16:00 07/06/17 15:59 06/07/17 15:32 0.125 MG EZETIMIBE (Zetia Tab) 10 mg HS PO 06/06/17 21:00 07/06/17 20:59 06/06/17 20:24 10 MG Fexofenadine HCl (Vickie Tab) 180 mg QAM PO 06/06/17 09:00 07/06/17 08:59 06/07/17 08:04 180 MG Gemfibrozil (Lopid Tab) 600 mg BID PO 06/06/17 21:00 07/06/17 20:59 06/07/17 08:02 600 MG Hydralazine HCl (Apresoline Tab) 25 mg BID PO 06/06/17 21:00 07/06/17 20:59 06/07/17 08:03 25 MG Insulin Glargine (Lantus Solostar Pen) 20 units BID SQ 06/06/17 09:00 07/06/17 08:59 06/06/17 20:31 20 UNITS Isosorbide Mononitrate (Imdur Ext Rel Tab) 30 mg QAM PO 06/06/17 09:00 07/06/17 08:59 06/07/17 08:03 30 MG Levothyroxine Sodium (Synthroid Tab) 175 mcg DAILYBB PO 06/06/17 06:00 07/06/17 05:59 06/07/17 06:14 175 MCG Metoprolol Succinate (Toprol Xl Tab) 100 mg DAILY PO 06/06/17 09:00 07/06/17 08:59 06/07/17 08:00 100 MG Montelukast Sodium (Singulair Tab) 10 mg QAM PO 06/06/17 09:00 07/06/17 08:59 06/07/17 08:04 10 MG Pyridoxine HCl (Vitamin B-6 Tab) 100 mg QAM PO 06/06/17 09:00 07/06/17 08:59 06/07/17 07:59 100 MG Warfarin Sodium (Coumadin Tab) 3 mg DAILY@1600 PO 06/06/17 16:00 07/06/17 15:59 Future Hold Cholecalciferol (Vitamin D Tab) 1,000 inter.unit TID PO 06/06/17 14:00 07/06/17 13:59 06/07/17 13:16 1,000 INTER.UNIT Spironolactone (Aldactone Tab) 50 mg BID17 PO 06/06/17 17:00 07/06/17 16:59 06/07/17 16:55 50 MG Ondansetron HCl (Zofran Odt) 8 mg Q6H PRN PO 06/06/17 02:45 07/06/17 02:44 Insulin Aspart (novoLOG ASPART) SLIDING SCALE If C... ACHS SC 06/06/17 07:00 07/06/17 06:59 06/07/17 17:31 9 UNITS Glucose (Glucose 40% Gel) 15-30 GRAMS 15 GRAMS... UD PRN PO 06/06/17 02:45 07/06/17 02:44 Glucose (Glucose Chew Tab) 4-8 Tablets 4 Tabl... UD PRN PO 06/06/17 02:45 07/06/17 02:44 Dextrose (Dextrose 50% 50ML Syringe) 25-50ML OF 50% DW IV FOR... UD PRN IV 06/06/17 02:45 07/06/17 02:44 Glucagon (Glucagon Inj) 1 mg UD PRN SQ 06/06/17 02:45 07/06/17 02:44 Albuterol/ Ipratropium (Duoneb) 3 ml Q4RWA INH 06/06/17 08:00 07/06/17 07:59 06/07/17 16:01 3 ML Bumetanide 2 mg/ Syringe 8 ml @ 4 mls/min DAILY@09,17 IV 06/06/17 17:00 07/06/17 16:59 06/07/17 16:55 4 MLS/MIN Lactulose (Chronulac Syrup) 15 gm QAM PO 06/07/17 09:00 07/07/17 08:59 06/07/17 08:42 15 GM Physical Exam Vital Signs Past 12 Hours Date Time Temp Pulse Resp B/P (MAP) Pulse Ox O2 Delivery O2 Flow Rate FiO2 06/07/17 16:03 Room Air 06/07/17 16:03 77 14 97 Room Air 06/07/17 16:02 36.4 103 19 133/69 (90) 99 Room Air 06/07/17 15:32 98 06/07/17 12:00 98 Room Air 06/07/17 11:51 36.5 70 18 109/50 (69) 98 Room Air 06/07/17 11:01 78 14 96 Room Air 06/07/17 08:00 94 Room Air 06/07/17 07:19 37.0 72 18 118/51 (73) 94 06/07/17 07:07 61 14 95 Room Air She is alert and oriented x3. Mood affect appear normal. She answered all questions appropriately. HEENT: Sclerae are anicteric. Pupils are equal and reactive to light and accommodation. Extraocular movements were intact. Neuro: Cranial nerves intact Neck: Examination of the submandibular region did not reveal any significant lymphadenopathy. Carotids are palpable bilaterally and free of bruits on auscultation. Jugular venous distention to the angle of the mandible. The thyroid was not enlarged. Lungs: Lungs are clear to auscultation bilaterally. There are no rales wheezes or rhonchi. She has normal respiratory effort without use of accessory muscles. There is normal pulmonary excursion. Cardiac: The rhythm was regular. There is a mechanical S1 and normal S2. Holo diastolic murmur. The PMI was not markedly displaced on palpation. Chest: Well-healed sternotomy scar. PleurX catheter right chest Abdomen: The abdomen was distended and firm there was pitting edema in the flanks bilaterally Extremities: Patient has bilateral radial pulses that are equal in intensity. Tense edema in the entire lower extremities Skin: There are no rashes noted on examination today. Data Laboratory Results: Last 24 Hours Test 06/06/17 18:47 06/06/17 20:16 06/07/17 06:29 06/07/17 07:03 Total Creatine Kinase 59 U/L Creatine Kinase MB 1.8 ng/ml Creatine Kinase MB Ratio 3.1 Troponin I < 0.015 ng/ml Bedside Glucose 161 mg/dl 121 mg/dl White Blood Count 6.46 K/uL Red Blood Count 3.72 M/uL Hemoglobin 9.0 g/dL Hematocrit 30.1 % Mean Corpuscular Volume 80.9 fL Mean Corpuscular Hemoglobin 24.2 pg Mean Corpuscular Hemoglobin Concent 29.9 g/dl Platelet Count 209 K/uL Mean Platelet Volume 9.2 fL Neutrophils (%) (Auto) 64.3 % Lymphocytes (%) (Auto) 15.3 % Monocytes (%) (Auto) 14.4 % Eosinophils (%) (Auto) 5.3 % Basophils (%) (Auto) 0.5 % Neutrophils # (Auto) 4.16 K/uL Lymphocytes # (Auto) 0.99 K/uL Monocytes # (Auto) 0.93 K/uL Eosinophils # (Auto) 0.34 K/uL Basophils # (Auto) 0.03 K/uL RDW Standard Deviation 54.1 fL RDW Coefficient of Variation 18.3 % Immature Granulocyte % (Auto) 0.2 % Immature Granulocyte # (Auto) 0.01 K/uL Prothrombin Time 31.6 SECONDS Prothromb Time International Ratio 3.1 Sodium Level 137 mmol/L Potassium Level 4.2 mmol/L Chloride Level 107 mmol/L Carbon Dioxide Level 20 mmol/L Anion Gap 10.0 mmol/L Blood Urea Nitrogen 50 mg/dl Creatinine 2.18 mg/dl Est Creatinine Clear Calc Drug Dose 23.9 ml/min Estimated GFR () 24.9 Estimated GFR (Non- 21.5 BUN/Creatinine Ratio 23.0 Random Glucose 114 mg/dl Calcium Level 8.5 mg/dl Magnesium Level 2.3 mg/dl Ammonia 36.0 umol/L Test 06/07/17 11:21 06/07/17 16:17 Bedside Glucose 177 mg/dl 127 mg/dl Imaging: Abdominal ultrasound demonstrated a small amount of ascites with splenomegaly. Heterogeneous liver. Chest x-ray was also obtained which did not demonstrate any significant findings. EKG: Atrial fibrillation with right bundle branch block Telemetry reviewed: Atrial fibrillation I reviewed her pacemaker interrogation. Nearing NEVIN. 30 percent ventricular pacing. No detected arrhythmias. I reviewed the report of her echocardiogram obtained this admission. Mean gradient across the mitral valve approximately 8 millimeters of mercury. Preserved LV systolic function. Dilated left atrium. Reduced RV function with severely elevated right ventricular pressures. Moderate to severe tricuspid regurgitation Assessment & Plan 1. Anasarca: Patient has multiple potential etiologies for her anasarca and likely a contribution from all etiologies. This would include cor pulmonale, an element of cirrhosis and renal insufficiency. It is unclear why she has had a fairly rapid progression in her fluid retention. She is not appear to have any dietary indiscretion. Her renal function appears relatively stable. She is known to have significant cardiac abnormalities as well as pulmonary hypertension, but these also appear to be relatively stable. She has been prescribed intravenous diuretic regimen which seems to have had some efficacy so far. This will obviously need to be continued with close monitoring of her renal function and electrolytes. 2. Cor pulmonale: Patient has an element of right ventricular failure. This is due to her high pulmonary pressures the etiology of which is likely multifactorial. There is clearly an element related to her valvular heart disease. However, at this point I may also be some intrinsic changes in the lungs resulting in worsening pulmonary hypertension. We have little to offer to improve her right ventricular function with the exception of reduced pulmonary pressures. In sum settings digoxin may affect some symptomatic improvement with her renal dysfunction I think this is contraindicated. 3. Pulmonary hypertension: This is likely mostly pulmonary venous hypertension related to her longstanding valvular heart disease. However, there likely have been some changes to the pulmonary vasculature over time as well. Whether she would benefit from vasodilators study or use of vasodilators can be explored. 4. Mitral valve disease: The gradients across the patient's mitral valve appeared to be stable. He has a relatively normal gradient for this valve. She has had higher gradients in the past associated with some worsening dyspnea. Gradients of since returned to normal and she is not describing symptoms of dyspnea. I do not think any acute changes in her valve function have resulted in her edema. Whether it is contributing to severe pulmonary hypertension is unclear. Out of curiosity I asked her about another valve procedure. She states that she will not consent to any additional sternotomy at this point in her life. 5. Tricuspid regurgitation: This is moderate to severe in nature. Certainly associated with her pulmonary hypertension. This would likely improve with improvement in her pulmonary pressures. This also likely contributes to her poor right ventricular function and dilation. 6. Atrial fibrillation: Permanent. No real options for a return to sinus rhythm. No symptoms related to the arrhythmia specifically. She is on chronic anticoagulation. 7. Single-chamber pacemaker: Patient has an old unipolar lead which appears to be functioning adequately at this point. There was some evidence of over sensing on the lead, but the thresholds were stable. She has a declining battery likely will require a generator change before the end of the year. She is not pacemaker dependent. Given her preserved LV systolic function there is no role for any upgrade of her device to either an ICD or resynchronization therapy.
[2017-06-07] MEDS ORDERED: WARFARIN SOD 3 MG TAB PO ONE (20:15)
[2017-06-07] MEDS: EZETIMIBE 10MG TAB PO SCH (20:32)
--- NOTE | 2017-06-07 21:39 | Progress Note ---
Subjective Date of Service: Jun 07, 2017. Subjective Pt evaluation today including: conversation w/ patient, physical exam, chart review, lab review, conversation w/ building energy consultant (cardiology), review of inpatient medication list Pain: none voiced PO Intake: normal, eating fine Voiding: no voiding problems tele with some pacing, underlying a. fib had multiple stools w/ ammonia this am feels that edema is slightly better dyspnea unchanged pleurX drained for 500cc this am by staff Problem List Medical Problems: (1) Anasarca Status: Acute (2) Anxiety Status: Acute (3) Arm pain, left Status: Acute (4) Back pain Status: Acute (5) Cat bite of right lower leg with infection Status: Acute (6) Cellulitis Status: Acute (7) CHF (congestive heart failure) Status: Acute (8) Chronic obstructive pulmonary disease Status: Acute (9) CKD (chronic kidney disease) Status: Chronic (10) COPD exacerbation Status: Acute (11) Dehydration Status: Acute (12) Dyspnea Status: Acute (13) Fever Status: Acute (14) Fracture of right distal radius Status: Acute (15) GI bleed Status: Acute (16) GI bleed Status: Acute (17) Guaiac + stool Status: Acute (18) Left hip pain Status: Acute (19) Medication adverse effect Status: Acute (20) Pleural effusion Status: Acute (21) PNA (pneumonia) Status: Acute (22) Pulmonary HTN Status: Acute (23) Rapid atrial fibrillation Status: Acute (24) Respiratory distress Status: Acute (25) Right arm fracture Status: Acute (26) Superficial phlebitis Status: Acute (27) Supratherapeutic INR Status: Acute Review of Systems Constitutional: No fever Respiratory: + dyspnea on exertion, No dyspnea at rest Cardiac: No chest pain Abdomen: No pain Objective Vital Signs Date Time Temp Pulse Resp B/P (MAP) Pulse Ox O2 Delivery O2 Flow Rate FiO2 06/07/17 19:56 Room Air 06/07/17 19:35 36.9 100 22 110/56 (74) 95 Room Air 06/07/17 19:24 97 14 95 Room Air 06/07/17 16:03 Room Air 06/07/17 16:03 77 14 97 Room Air 06/07/17 16:02 36.4 103 19 133/69 (90) 99 Room Air 3/24/18 15:32 98 06/07/17 12:00 98 Room Air 06/07/17 11:51 36.5 70 18 109/50 (69) 98 Room Air 06/07/17 11:01 78 14 96 Room Air 06/07/17 08:00 94 Room Air 06/07/17 07:19 37.0 72 18 118/51 (73) 94 06/07/17 07:07 61 14 95 Room Air 06/07/17 04:00 93 Room Air 06/07/17 03:48 36.5 62 18 109/50 (69) 96 Nasal Cannula 2.0 06/07/17 00:06 37.3 69 18 104/45 (64) 93 Nasal Cannula 2.0 06/07/17 00:01 93 Room Air Physical Exam General Appearance: no apparent distress ENT: pharynx normal Neck: + JVD (to the jaw) Respiratory/Chest: no respiratory distress, no accessory muscle use, + rales ( both bases) Cardiovascular: + systolic murmur (1-2/6 LLSB), + gallop/S3 (vs split s2), + irregularly irregular, + pertinent finding ([facility] valve closure sound) Abdomen: normal bowel sounds, non tender, + hepatomegaly Extremities: + pedal edema, + swelling (severe, to the thighs - maybe slightly better today) Neurologic/Psychiatric: alert, oriented x 3 Laboratory Results Last 24 Hours Test 06/07/17 06:29 06/07/17 07:03 06/07/17 11:21 06/07/17 16:17 Bedside Glucose 121 mg/dl 177 mg/dl 127 mg/dl White Blood Count 6.46 K/uL Red Blood Count 3.72 M/uL Hemoglobin 9.0 g/dL Hematocrit 30.1 % Mean Corpuscular Volume 80.9 fL Mean Corpuscular Hemoglobin 24.2 pg Mean Corpuscular Hemoglobin Concent 29.9 g/dl Platelet Count 209 K/uL Mean Platelet Volume 9.2 fL Neutrophils (%) (Auto) 64.3 % Lymphocytes (%) (Auto) 15.3 % Monocytes (%) (Auto) 14.4 % Eosinophils (%) (Auto) 5.3 % Basophils (%) (Auto) 0.5 % Neutrophils # (Auto) 4.16 K/uL Lymphocytes # (Auto) 0.99 K/uL Monocytes # (Auto) 0.93 K/uL Eosinophils # (Auto) 0.34 K/uL Basophils # (Auto) 0.03 K/uL RDW Standard Deviation 54.1 fL RDW Coefficient of Variation 18.3 % Immature Granulocyte % (Auto) 0.2 % Immature Granulocyte # (Auto) 0.01 K/uL Prothrombin Time 31.6 SECONDS Prothromb Time International Ratio 3.1 Sodium Level 137 mmol/L Potassium Level 4.2 mmol/L Chloride Level 107 mmol/L Carbon Dioxide Level 20 mmol/L Anion Gap 10.0 mmol/L Blood Urea Nitrogen 50 mg/dl Creatinine 2.18 mg/dl Est Creatinine Clear Calc Drug Dose 23.9 ml/min Estimated GFR () 24.9 Estimated GFR (Non- 21.5 BUN/Creatinine Ratio 23.0 Random Glucose 114 mg/dl Calcium Level 8.5 mg/dl Magnesium Level 2.3 mg/dl Ammonia 36.0 umol/L Test 06/07/17 20:33 Bedside Glucose 166 mg/dl Assessment and Plan 77yo female - 1. acute/chronic diastolic CHF with right-sided heart failure in the setting of pulmonary HTN - cont bumex 2mg IV BID and aldactone BID. daily BMP. Is mitral valve dysfunction causing the pulmonary HTN and in turn her CHF? Appreciate Dr. Tapia's consultation. Additional testing may be needed in the future. 2. severe pulmonary HTN - due to mitral valve disease? idiopathic? Other? Has h/o COPD but doubt it is severe enough to cause her elevated PA pressure. No h/o PE. 3. right-sided pleurX catheter for reaccumulating transudative pleural effusion - drain daily. 4. CKD stage 4 - followed by Dr. Wong. Daily BMP. Creatinine stable. 5. cirrhosis - imaging studies dating back to 2013 show cirrhotic changes. This could be from chronic passive congestion from CHF or could be due to DAIGLE from previous fatty liver. Mild elevation in ammonia today but no significant symptoms to suggest hepatic encephalopathy - reasonable to give lactulose 15cc daily for a few days to normalize the ammonia. 6. a. fib with pacemaker in place - cont BB. Pacemaker interrogation shows good pacer function. Cardiology consult appreciated. Will need battery exchange later this year. Resume coumadin. 7. supratherapeutic INR - resolved. Suspect liver dysfunction caused elevated INR. Resume coumadin but at 3mg daily. Daily INR. 8. hypothyroidism - TSH fall 2016 was wnl. Cont synthroid same dose. 9. T2DM - controlled. 10. h/o COPD - not active at this time. 11. mechanical mitral valve - on chronic coumadin. See discussion above. 12. HTN - controlled at this time. 13. hyperlipidemia - continue outpatient meds. PT, OT evals requested cardiology consult appreciated Continued [facility] stay due to: multiple IV medications needed Discharge planning: uncertain
[2017-06-07] MEDS: DIAZEPAM 5MG TAB PO SCH (22:02)
[2017-06-07] MEDS ORDERED: OXYCODONE HCL IR 5 MG TAB (IMMEDIATE RELEASE) PO STA (23:21)
[2017-06-08] VITALS (9 sets, daily range): BP systolic 122–151; BP diastolic 61–74; PULSE 88–104; TEMP 36.6–37.2; O2SAT 92–97
[2017-06-08] MEDS: MoRPHine SULFATE 2 MG/ML CARP IV PRN (00:46)
[2017-06-08] MEDS: LEVOTHYROXINE 175 MCG TAB PO SCH (06:04)
[2017-06-08] MEDS: BUMETANIDE IV 2 MG in SYRINGE 0 ML IV SCH (07:48)
[2017-06-08] MEDS: CHOLECALCIFEROL 1000 INTER.UNIT TAB PO SCH ×3 (07:49→20:15)
[2017-06-08] MEDS: FEXOFENADINE HCL 180 MG TAB PO SCH (07:49)
[2017-06-08] MEDS: GEMFIBROZIL 600 MG TAB PO SCH ×2 (07:49→20:13)
[2017-06-08] MEDS: METOPROLOL SUCC 50MG EXT REL TAB PO SCH (07:50)
[2017-06-08] MEDS: ISOSORBIDE MONONITRATE 30 MG TABCR PO SCH (07:50)
[2017-06-08] MEDS: MONTELUKAST SOD 10 MG TAB PO SCH (07:50)
[2017-06-08] MEDS: PYRIDOXINE HCL 50 MG TAB PO SCH (07:50)
[2017-06-08] MEDS: CYANOCOBALAMIN 500 MCG TAB (VIT B-12) PO SCH (07:51)
[2017-06-08] MEDS: SPIRONOLACTONE 25 MG TAB PO SCH (07:51)
[2017-06-08] MEDS: LACTULOSE SYRUP 10 GM/15 ML BTL 473 ML PO SCH (07:52)
[2017-06-08] MEDS: ALBUT/IPRATROP 3MG/0.5MG NEB 3 ML VIAL INH SCH (07:55)
[2017-06-08] MEDS: INSULIN ASPART 100 UNITS/ML 3 ML PEN SC SCH ×4 (07:59→21:00)
[2017-06-08] MEDS: INSULIN GLARGINE SOLOSTAR 100 UNITS/ML 3 ML PEN SQ SCH ×2 (08:00→22:00)
[2017-06-08 08:55] LABS: INR 2.1 (0.9-1.1)
[2017-06-08 09:12] LABS: HEMOGLOBIN 8.9 g/dL (12.0-16.0); MEAN CELL VOLUME 80.6 fL (80-100); MEAN CORPUSCULAR HEMOGLOBIN 23.9 pg (25-34); MEAN CORPUSCULAR HGB CONC 29.7 g/dl (32-36); MEAN PLATELET VOLUME 9.3 fL (7.4-10.4); PLATELET COUNT 211 K/uL (130-400); RED CELL DISTRIBUTION WIDTH CV 18.2 % (11.5-14.5); RED CELL DISTRIBUTION WIDTH SD 53.7 fL (36.4-46.3); WHITE BLOOD COUNT 5.79 K/uL (4.8-10.8)
[2017-06-08 09:26] LABS: CALCIUM 8.5 mg/dl (8.5-10.1); CREATININE 2.41 mg/dl (0.60-1.20)
[2017-06-08 09:28] LABS: BASO % 0.3 %; BASO ABS # 0.02 K/uL (0-0.2); EOS ABS # 0.29 K/uL (0-0.5); IG# 0.02 K/uL (0.00-0.02); LYMPH % 12.4 %; LYMPH ABS # 0.72 K/uL (1.2-3.4); MONO % 15.9 %; MONO ABS # 0.92 K/uL (0.11-0.59); NEUT % 66.1 %; NEUT ABS # 3.82 K/uL (1.4-6.5)
[2017-06-08] MEDS: IPRATROPIUM BROMIDE/ALBUTEROL respimat INH INH SCH ×3 (12:00→20:11)
[2017-06-08 12:01] LABS: ALBUMIN 2.9 gm/dl (3.4-5.0); TOTAL PROTEIN 6.7 gm/dl (6.4-8.2)
--- NOTE | 2017-06-08 13:29 | DIAGNOSTIC IMAGING REPORT ---
ABD/PELVIS ORAL CONT ONLY CLINICAL HISTORY: 77 years-old Female presenting with RLQ abd pain, ?ascites, r/o diverticulitis, stone, etc. TECHNIQUE: Multidetector CT of the abdomen and pelvis was performed after the administration of oral and intravenous contrast. IV contrast: Optiray 320. A dose lowering technique was used consistent with the principles of ALARA (as low as reasonably achievable). COMPARISON: Pelvic CT from 08/17/[address] of the abdomen and pelvis from 10/07/2014. CT DOSE (mGy.cm): The estimated cumulative dose is 579.73 mGy.cm. FINDINGS: [employer] topogram: Cholecystectomy clips. Lung bases: Marked smooth interlobular septal thickening with bronchial wall thickening and dependent opacities. This is accompanied by small bilateral pleural effusions. Multichamber enlargement of the heart with prosthetic valve. Partially visualized cardiac leads. No pericardial effusion. Right pleural drain in place at the right posterior costophrenic sulcus. Trace right pneumothorax. Liver: Relative atrophy of the right hepatic lobe and hypertrophy of the left hepatic lobe with a nodular contour consistent with cirrhosis. The density does not suggest hepatic steatosis. Mild periportal edema suggested. Biliary: Mild biliary ductal prominence likely a reservoir effect in the post cholecystectomy state. Gallbladder surgically absent. Pancreas: Normal noncontrast appearance. Spleen: Normal noncontrast appearance. The spleen is not enlarged. Adrenal glands: Normal noncontrast appearance. Kidneys and ureters: Normal noncontrast appearance. No nephrolithiasis. No hydronephrosis. Normal ureters. Bladder: Normal. Pelvic organs: Uterus surgically absent. No adnexal masses. Bowel: Mild colonic wall thickening most pronounced at the rectosigmoid junction and hepatic flexure, nonspecific and possibly portal colopathy. No bowel obstruction. The appendix is normal. Wall thickening of the duodenum, possibly portal enteropathy. Peritoneal cavity: Small amount of abdominopelvic ascites. No free intraperitoneal gas. Lymph nodes: No gross lymphadenopathy allowing for noncontrast technique. Vasculature: Atherosclerosis of the normal caliber abdominal aorta. The IVC is dilated. Abdominal wall: Anasarca. Musculoskeletal: Degenerative changes of the spine. Redemonstration of subchondral sclerosis in the femoral heads compatible with osteonecrosis. No jhonny collapse of the cortices though developing degenerative changes noted. IMPRESSION: 1. Right pleural drain in place with a small right pleural effusion and trace right pneumothorax. 2. Cardiomegaly with evidence of volume overload and severe congestive change. Volume overload further evidenced by dilation of the IVC. 3. Small left pleural effusion. 4. Cirrhosis. Among common potential etiologies of cirrhosis, congestive hepatopathy is also a diagnostic consideration. 5. Small abdominopelvic ascites. 6. No other evidence of acute intra-abdominal pathology. Specifically, no appendicitis or other acute pathology in the right lower quadrant. Electronically signed by: Adam Nagel M.D. 06/08/2017 1:27 PM Dictated Date/Time: 06/08/2017 1:18 PM
[2017-06-08] MEDS: WARFARIN SOD 3 MG TAB PO SCH (17:06)
[2017-06-08] MEDS: DIGOXIN 0.125 MG TAB PO SCH (17:07)
--- NOTE | 2017-06-08 18:08 | Progress Note ---
Subjective Date of Service: Jun 08, 2017. Subjective Pt evaluation today including: conversation w/ patient, conversation w/ family ( by phone), physical exam, chart review, lab review, review of studies ( CT abd/pelvis), conversation w/ industry consultant (cardiology), review of inpatient medication list Pain: RLQ - started last pm; skipped breakfast today due to pain; also mild LLQ PO Intake: poor today Voiding: no voiding problems tele stable overnight - a. fib w/ some pacing c/o b/l lower quadrant pain much worse on the right abdomen started last pm no vomiting minimal nausea numerous stools since yesterday s/p lactulose denies dyspnea at rest Problem List Medical Problems: (1) Anasarca Status: Acute (2) Anxiety Status: Acute (3) Arm pain, left Status: Acute (4) Back pain Status: Acute (5) Cat bite of right lower leg with infection Status: Acute (6) Cellulitis Status: Acute (7) CHF (congestive heart failure) Status: Acute (8) Chronic obstructive pulmonary disease Status: Acute (9) CKD (chronic kidney disease) Status: Chronic (10) COPD exacerbation Status: Acute (11) Dehydration Status: Acute (12) Dyspnea Status: Acute (13) Fever Status: Acute (14) Fracture of right distal radius Status: Acute (15) GI bleed Status: Acute (16) GI bleed Status: Acute (17) Guaiac + stool Status: Acute (18) Left hip pain Status: Acute (19) Medication adverse effect Status: Acute (20) Pleural effusion Status: Acute (21) PNA (pneumonia) Status: Acute (22) Pulmonary HTN Status: Acute (23) Rapid atrial fibrillation Status: Acute (24) Respiratory distress Status: Acute (25) Right arm fracture Status: Acute (26) Superficial phlebitis Status: Acute (27) Supratherapeutic INR Status: Acute Review of Systems Constitutional: No fever Respiratory: + dyspnea on exertion, No cough Cardiac: + edema, No chest pain, No orthopnea Abdomen: + see HPI, + pain Objective Vital Signs Date Time Temp Pulse Resp B/P (MAP) Pulse Ox O2 Delivery O2 Flow Rate FiO2 06/08/17 17:07 96 06/08/17 16:00 Room Air 06/08/17 15:29 36.6 96 20 142/74 (96) 96 Room Air 06/08/17 12:00 92 Room Air 06/08/17 11:55 36.6 97 18 132/66 (88) 94 Room Air 06/08/17 08:00 92 Room Air 06/08/17 07:55 88 14 96 Room Air 06/08/17 07:44 37.0 104 18 122/61 (81) 92 Room Air 06/08/17 04:00 Room Air 06/08/17 02:38 37.2 97 19 125/61 (82) 97 Nasal Cannula 2.0 06/07/17 23:54 36.8 100 24 110/53 (72) 93 Room Air 06/07/17 23:25 Room Air 06/07/17 19:56 Room Air 06/07/17 19:35 36.9 100 22 110/56 (74) 95 Room Air 06/07/17 19:24 97 14 95 Room Air Physical Exam General Appearance: + mild distress (due to abdominal pain; doesn't look as good today as yesterday) ENT: pharynx normal Neck: + JVD (to the jaw) Respiratory/Chest: no respiratory distress, no accessory muscle use, + decreased breath sounds (right base), + crackles (left base - no change) Cardiovascular: + systolic murmur (2/6 LLSB), + gallop/S3 (vs split s2; mechanical valve closure sound), + irregularly irregular Abdomen: normal bowel sounds, no organomegaly, + distended, + tenderness (RLQ - mild/moderate; minimal pain LLQ) Extremities: + pedal edema, + swelling (severe, 3+ to the thighs) Neurologic/Psychiatric: alert, oriented x 3 Laboratory Results Last 24 Hours Test 06/07/17 20:33 06/08/17 06:37 06/08/17 08:31 06/08/17 08:35 Bedside Glucose 166 mg/dl 111 mg/dl White Blood Count 5.79 K/uL Red Blood Count 3.72 M/uL Hemoglobin 8.9 g/dL Hematocrit 30.0 % Mean Corpuscular Volume 80.6 fL Mean Corpuscular Hemoglobin 23.9 pg Mean Corpuscular Hemoglobin Concent 29.7 g/dl Platelet Count 211 K/uL Mean Platelet Volume 9.3 fL Neutrophils (%) (Auto) 66.1 % Lymphocytes (%) (Auto) 12.4 % Monocytes (%) (Auto) 15.9 % Eosinophils (%) (Auto) 5.0 % Basophils (%) (Auto) 0.3 % Neutrophils # (Auto) 3.82 K/uL Lymphocytes # (Auto) 0.72 K/uL Monocytes # (Auto) 0.92 K/uL Eosinophils # (Auto) 0.29 K/uL Basophils # (Auto) 0.02 K/uL RDW Standard Deviation 53.7 fL RDW Coefficient of Variation 18.2 % Immature Granulocyte % (Auto) 0.3 % Immature Granulocyte # (Auto) 0.02 K/uL Polychromasia 1+ Sodium Level 135 mmol/L Potassium Level 4.0 mmol/L Chloride Level 104 mmol/L Carbon Dioxide Level 24 mmol/L Anion Gap 7.0 mmol/L Blood Urea Nitrogen 56 mg/dl Creatinine 2.41 mg/dl Est Creatinine Clear Calc Drug Dose 21.5 ml/min Estimated GFR () 22.0 Estimated GFR (Non- 19.0 BUN/Creatinine Ratio 23.4 Random Glucose 134 mg/dl Calcium Level 8.5 mg/dl Magnesium Level 2.2 mg/dl Prothrombin Time 21.8 SECONDS Prothromb Time International Ratio 2.1 Test 06/08/17 11:15 06/08/17 11:41 06/08/17 12:25 06/08/17 16:43 Lactic Acid Level 1.0 mmol/L Total Bilirubin 0.5 mg/dl Direct Bilirubin 0.2 mg/dl Aspartate Amino Transf (AST/SGOT) 34 U/L Alanine Aminotransferase (ALT/SGPT) 28 U/L Alkaline Phosphatase 94 U/L Total Protein 6.7 gm/dl Albumin 2.9 gm/dl Lipase 410 U/L Bedside Glucose 134 mg/dl 120 mg/dl Urine Color YELLOW Urine Appearance CLEAR Urine pH 5.0 Urine Specific [place] 1.010 Urine Protein NEG Urine Glucose (UA) NEG Urine Ketones NEG Urine Occult Blood NEG Urine Nitrite NEG Urine Bilirubin NEG Urine Urobilinogen NEG Urine Leukocyte Esterase NEG Assessment and Plan 77yo female - 1. acute/chronic diastolic CHF with right-sided heart failure in the setting of severe pulmonary HTN - care d/w Dr. Tapia today. Although BUN/Cr nishant overnight, after considerable discussion, will continue her diuresis and re-eval her renal function once again in the AM. Hold standing aldactone. Is mitral valve dysfunction causing the pulmonary HTN and in turn her CHF? There has been some discussion about considering a right-heart cath to eval her PA pressures and perform a vasodilator study. 2. abdominal pain - checked lipase, lactate, and lfts - all wnl. Checked CT abd/pelvis w/ PO contrast - no acute findings (no appendicitis, diverticulitis, renal stone, etc). Some of her pain could be cramps/gaseous distension from the lactulose. Doubt SBP as her pain is not diffuse and she does not have peritonitis. Some of her pain could be from the fluid-filled liver. She has had copious stools today from lactulose and the oral CT contrast - stop the lactulose. Follow this issue carefully. 3. severe pulmonary HTN - due to mitral valve disease? idiopathic? Other? Has h/o COPD but doubt it is severe enough to cause her elevated PA pressure. No h/o PE. 4. right-sided pleurX catheter for reaccumulating transudative pleural effusion - drain daily. 5. CKD stage 4 - followed by Dr. Wong. Daily BMP. Creatinine mildly worse today with her diuresis - see discussion in #1 above. Will consult nephrology formally. 6. cirrhosis - imaging studies dating back to 2013 show cirrhotic changes. This could be from chronic passive congestion from CHF or could be due to DAIGLE from previous fatty liver. Mild elevation in ammonia s/p 2 doses of lactulose. 7. a. fib with pacemaker in place - cont BB. Pacemaker interrogation shows good pacer function. Cardiology consult appreciated. Will need battery exchange later this year. Resumed coumadin. Daily INR. 8. supratherapeutic INR - resolved. Suspect liver dysfunction caused elevated INR. Resumed coumadin but at 3mg daily. Daily INR. 9. hypothyroidism - TSH fall 2017 was wnl. Cont synthroid same dose. 10. T2DM - controlled. 11. h/o COPD - not active at this time. 12. mechanical mitral valve - on chronic coumadin. See discussion above. 13. HTN - controlled at this time. 14. hyperlipidemia - continue outpatient meds. PT, OT evals appreciated cardiology consult appreciated updated 06/08/17 Continued [facility] stay due to: multiple IV medications needed Discharge planning: uncertain
[2017-06-08] MEDS ORDERED: BUMETANIDE IV 2 MG in SYRINGE 0 ML IV ONE (18:30)
[2017-06-08] MEDS: LACTOBACILLUS ACIDOPHILUS (FLORANEX) TAB PO SCH (18:37)
--- NOTE | 2017-06-08 19:11 | Cardiology Follow-Up ---
Subjective Date of Service: Jun 08, 2017. Pt evaluation today including: conversation w/ patient, physical exam, chart review, lab review, review of studies, conversation w/ senior wind energy consultant, review of inpatient medication list, conversation w/ attending History of Present Illness Today the patient was complaining of some abdominal discomfort. This appeared to be more localized in the right side. He states that her breathing has been stable. She is frustrated that her lower extremity edema has not improved. Appetite appears to be normal. No dizziness reported by the patient. Social History Smoking Status: Former Smoker History of Alcohol Use: No Review of Systems Respiratory: + dyspnea on exertion, No cough Cardiac: + edema, No chest pain, No orthopnea Per HPI. No fevers or chills recently. Some loose stools currently due to lactulose administration. Objective Vital Signs Past 12 Hours Date Time Temp Pulse Resp B/P (MAP) Pulse Ox O2 Delivery O2 Flow Rate FiO2 06/08/17 17:07 96 06/08/17 16:00 Room Air 06/08/17 15:29 36.6 96 20 142/74 (96) 96 Room Air 06/08/17 12:00 92 Room Air 06/08/17 11:55 36.6 97 18 132/66 (88) 94 Room Air 06/08/17 08:00 92 Room Air 06/08/17 07:55 88 14 96 Room Air 06/08/17 07:44 37.0 104 18 122/61 (81) 92 Room Air Last Recorded Weight-Kilograms: 83.700 Intake & Output 8-Hour Column 06/08/17 06/09/17 06/09/17 16:00 00:00 08:00 Intake Total 580 ml Output Total 1400 ml Balance -820 ml 24-Hour Column 06/09/17 08:00 Intake Total 580 ml Output Total 1400 ml Balance -820 ml Physical Exam She is alert and oriented x3. Mood affect appear normal. She answered all questions appropriately. HEENT: Sclerae are anicteric. Pupils are equal and reactive to light and accommodation. Extraocular movements were intact. Neuro: Cranial nerves intact Neck: Examination of the submandibular region did not reveal any significant lymphadenopathy. Carotids are palpable bilaterally and free of bruits on auscultation. Jugular venous distention to the angle of the mandible. The thyroid was not enlarged. Lungs: Lungs are clear to auscultation bilaterally. There are no rales wheezes or rhonchi. She has normal respiratory effort without use of accessory muscles. There is normal pulmonary excursion. Cardiac: The rhythm was regular. There is a mechanical S1 and normal S2. Holo diastolic murmur. The PMI was not markedly displaced on palpation. Chest: Well-healed sternotomy scar. PleurX catheter right chest Abdomen: The abdomen was distended and firm there was pitting edema in the flanks bilaterally Extremities: Patient has bilateral radial pulses that are equal in intensity. Tense edema in the entire lower extremities Skin: There are no rashes noted on examination today. Data Laboratory Results: Last 24 Hours Test 06/07/17 20:33 06/08/17 06:37 06/08/17 08:31 06/08/17 08:35 Bedside Glucose 166 mg/dl 111 mg/dl White Blood Count 5.79 K/uL Red Blood Count 3.72 M/uL Hemoglobin 8.9 g/dL Hematocrit 30.0 % Mean Corpuscular Volume 80.6 fL Mean Corpuscular Hemoglobin 23.9 pg Mean Corpuscular Hemoglobin Concent 29.7 g/dl Platelet Count 211 K/uL Mean Platelet Volume 9.3 fL Neutrophils (%) (Auto) 66.1 % Lymphocytes (%) (Auto) 12.4 % Monocytes (%) (Auto) 15.9 % Eosinophils (%) (Auto) 5.0 % Basophils (%) (Auto) 0.3 % Neutrophils # (Auto) 3.82 K/uL Lymphocytes # (Auto) 0.72 K/uL Monocytes # (Auto) 0.92 K/uL Eosinophils # (Auto) 0.29 K/uL Basophils # (Auto) 0.02 K/uL RDW Standard Deviation 53.7 fL RDW Coefficient of Variation 18.2 % Immature Granulocyte % (Auto) 0.3 % Immature Granulocyte # (Auto) 0.02 K/uL Polychromasia 1+ Sodium Level 135 mmol/L Potassium Level 4.0 mmol/L Chloride Level 104 mmol/L Carbon Dioxide Level 24 mmol/L Anion Gap 7.0 mmol/L Blood Urea Nitrogen 56 mg/dl Creatinine 2.41 mg/dl Est Creatinine Clear Calc Drug Dose 21.5 ml/min Estimated GFR () 22.0 Estimated GFR (Non- 19.0 BUN/Creatinine Ratio 23.4 Random Glucose 134 mg/dl Calcium Level 8.5 mg/dl Magnesium Level 2.2 mg/dl Prothrombin Time 21.8 SECONDS Prothromb Time International Ratio 2.1 Test 06/08/17 11:15 06/08/17 11:41 06/08/17 12:25 06/08/17 16:43 Lactic Acid Level 1.0 mmol/L Total Bilirubin 0.5 mg/dl Direct Bilirubin 0.2 mg/dl Aspartate Amino Transf (AST/SGOT) 34 U/L Alanine Aminotransferase (ALT/SGPT) 28 U/L Alkaline Phosphatase 94 U/L Total Protein 6.7 gm/dl Albumin 2.9 gm/dl Lipase 410 U/L Bedside Glucose 134 mg/dl 120 mg/dl Urine Color YELLOW Urine Appearance CLEAR Urine pH 5.0 Urine Specific [place] 1.010 Urine Protein NEG Urine Glucose (UA) NEG Urine Ketones NEG Urine Occult Blood NEG Urine Nitrite NEG Urine Bilirubin NEG Urine Urobilinogen NEG Urine Leukocyte Esterase NEG Imaging: CT of the abdomen revealed evidence of volume overload but no other concerning intra-abdominal pathology. EKG: Atrial fibrillation with right bundle branch block Assessment and Plan 1. Anasarca: She has affected some element of diuresis. Clinically still markedly volume overloaded.. 2. Cor pulmonale: She continues to have element of right ventricular failure. After discussion with Cardiology service at [facility] we elected to continue aggressive attempts at diuresis monitoring her renal function and vital signs closely. In the absence of a response or with hemodynamic embarrassment more advanced therapy such as CVVH or dialysis could be entertained for volume loss. 3. Pulmonary hypertension: I discussed the option for vaso dilator study and possible use of vasodilators to reduce pulmonary pressures with the department store manager on-call. In the event that she fails efforts at diuresis right heart catheterization could be performed to better define her pulmonary artery pressures and her candidacy for vaso dilator therapy 4. Mitral valve disease: The gradients across the patient's mitral valve appeared to be stable. Relatively normal gradients for this prosthesis 5. Tricuspid regurgitation: This is moderate to severe in nature. Certainly associated with her pulmonary hypertension. This would likely improve with improvement in her pulmonary pressures. This also likely contributes to her poor right ventricular function and dilation. 6. Atrial fibrillation: Permanent. No real options for a return to sinus rhythm. No symptoms related to the arrhythmia specifically. She is on chronic anticoagulation. 7. Single-chamber pacemaker: Patient has an old unipolar lead which appears to be functioning adequately at this point. There was some evidence of over sensing on the lead, but the thresholds were stable. She has a declining battery likely will require a generator change before the end of the year. She is not pacemaker dependent. Given her preserved LV systolic function there is no role for any upgrade of her device to either an ICD or resynchronization therapy.
[2017-06-08] MEDS: EZETIMIBE 10MG TAB PO SCH (20:13)
[2017-06-08] MEDS: DIAZEPAM 5MG TAB PO SCH (21:57)
[2017-06-09] VITALS (13 sets, daily range): BP systolic 101–129; BP diastolic 49–65; PULSE 59–110; TEMP 36.7–37.3; O2SAT 93–99
[2017-06-09] MEDS: LEVOTHYROXINE 175 MCG TAB PO SCH (05:45)
[2017-06-09 07:26] LABS: INR 2.2 (0.9-1.1)
[2017-06-09 07:47] LABS: CALCIUM 8.6 mg/dl (8.5-10.1); CREATININE 1.94 mg/dl (0.60-1.20); POTASSIUM 4.1 mmol/L (3.5-5.1)
[2017-06-09] MEDS: IPRATROPIUM BROMIDE/ALBUTEROL respimat INH INH SCH ×4 (07:58→20:22)
[2017-06-09] MEDS: FEXOFENADINE HCL 180 MG TAB PO SCH (07:58)
[2017-06-09] MEDS: LACTOBACILLUS ACIDOPHILUS (FLORANEX) TAB PO SCH ×3 (07:58→16:14)
[2017-06-09] MEDS: CHOLECALCIFEROL 1000 INTER.UNIT TAB PO SCH ×3 (07:59→20:24)
[2017-06-09] MEDS: PYRIDOXINE HCL 50 MG TAB PO SCH (07:59)
[2017-06-09] MEDS: ISOSORBIDE MONONITRATE 30 MG TABCR PO SCH (07:59)
[2017-06-09] MEDS: METOPROLOL SUCC 50MG EXT REL TAB PO SCH (07:59)
[2017-06-09] MEDS: MONTELUKAST SOD 10 MG TAB PO SCH (07:59)
[2017-06-09] MEDS: GEMFIBROZIL 600 MG TAB PO SCH ×2 (07:59→20:23)
[2017-06-09] MEDS: INSULIN ASPART 100 UNITS/ML 3 ML PEN SC SCH ×4 (08:40→21:00)
[2017-06-09] MEDS: CYANOCOBALAMIN 500 MCG TAB (VIT B-12) PO SCH (08:41)
[2017-06-09] MEDS: INSULIN GLARGINE SOLOSTAR 100 UNITS/ML 3 ML PEN SQ SCH ×2 (08:41→21:00)
[2017-06-09] MEDS: BUMETANIDE IV 2 MG in SYRINGE 0 ML IV SCH ×2 (09:13→17:18)
[2017-06-09] MEDS: SPIRONOLACTONE 25 MG TAB PO SCH ×2 (09:13→17:02)
--- NOTE | 2017-06-09 09:54 | CARDIOLOGY PROGRESS NOTE ---
DATE: 06/09/2017 SUBJECTIVE: Mrs. Morales is resting comfortably in bed without complaints of chest pain or dyspnea. Feels that her lower extremity edema is improving. We have had a long discussion regarding her prosthetic mitral valve and her severe pulmonary hypertension. OBJECTIVE: VITAL SIGNS: Blood pressure is 100/54 with an irregular pulse of 90. Respiratory rate is 18. The patient is afebrile at 36.7 degrees Celsius. Saturation 99% on 4 liters nasal cannula. NECK: Supple with full carotid upstrokes. No obvious bruits. Jugular venous distention to the angle of the jaw. A prominent V wave is noted. CARDIOVASCULAR: Reveals an irregular rhythm with crisp mechanical valve sounds. LUNGS: Clear without rales, rhonchi, or wheezes. ABDOMEN: Protuberant. EXTREMITIES: Note intact radial artery pulses bilaterally. Tense pitting edema noted across the lower extremities. LABORATORY DATA: Electrolytes note a sodium of 136, potassium 4.1, chloride 104, bicarbonate 22, BUN 48, creatinine 1.94, glucose 86. laboratory monitor notes atrial fibrillation and appropriate ventricular pacing. IMPRESSION AND PLAN: 1. Hyperkalemia -- secondary to decompensated right-sided congestive failure. Continue with aggressive intravenous diuresis as you are. 2. Cor pulmonale -- there is evidence of right ventricular dilatation and dysfunction on echocardiogram. Dr. Tapia discussed her case with the cardiology team at [facility]. Will continue with aggressive diuresis. Could consider right heart catheterization if her pulmonary pressures improve. 3. Pulmonary hypertension -- calculated to be severe by her tricuspid regurgitant velocity jet. As above, could consider right heart catheterization and trial of vasodilator therapy. 4. Dowd-Lee mitral valve replacement -- mean gradient of 8 mmHg acceptable for this prosthetic valve. 5. Moderate severe tricuspid regurgitation -- secondary to pulmonary hypertension. 6. Permanent atrial fibrillation -- chronically anticoagulated with Coumadin. 7. VVI pacemaker -- battery longevity estimated at 6 months. This patient has normal left ventricular systolic function. No utility in upgrading her device to an ICD or [employer] device. 8. Acute on chronic renal failure. 9. Recurrent right-sided pleural effusion -- PleurX catheter per Dr. Cueva.
--- NOTE | 2017-06-09 12:06 | Nephrology Consultation ---
Nephrology Consultation Date & Providers Date of Consultation: Jun 09, 2017. Primary Care Provider: Phoenix Klein III, CRNP Referring Provider: Reason for Consultation Evaluation management for acute kidney injury and volume overload with history of chronic kidney disease. History of Present Illness Crystal Is a 77-year-old female with past medical history significant for stage 3 chronic kidney disease, chronic congestive heart failure with pulmonary hypertension, admitted to the hospital with SOB and volume overload. Nephrology consult was requested to manage acute kidney injury and management of diuretics dose. EMR records were reviewed in detail during patient's visit. Crystal has history of pulmonary hypertension and right-sided heart failure, she has been on diuretics chronically. Her dry weight around 152-154 lb. Over last 1 month she has been gaining weight, has been having progressively worsening lower extremity edema and shortness of breath and she gained almost 20 lbs. Diuretics was initially increased to 80 mg once a day and then last week it was increased to 80 mg twice a day without any significant improvement in lower extremity edema and she progressively gained weight. Eventually presented to the emergency room on 06/06/17. CXR on admission showed pulmonary edema. She has right-sided pleural effusion and recently had pleural catheter placed, she has been getting almost 500 mL of output every day. 2D echo showed elevated PA pressure and dilated IVC, EF 60-65%. History of mitral valve replacement before, on Coumadin, INR has been therapeutic. Also found to have hepatic congestion and cirrhotic changes in liver. On admission she was started on Bumex 2 mg twice a day and spironolactone 50 b.i.d., she has been net-1.5 to 2 L every day and lost almost 10 lb since admission, shortness of breath improved however she continues to have significant lower extremity edema. Blood pressure stable. Has stage 3 chronic kidney disease most likely secondary to cardiorenal syndrome type 2, baseline creatinine has been variable, around 2.0. Creatinine slightly peaked to 2.4 which now improved to baseline, creatinine was 1.9 this morning, electrolyte acceptable. Urinalysis unremarkable, no postrenal obstruction on CT scan. Has anemia of chronic disease. Overall she is feeling much better although continues to be volume overloaded. Allergies Coded Allergies: Penicillins (Verified Allergy, Severe, anaphylaxis 30yrs ago, also broke out with sores, 01/30/17) NOTE: Timentin 05/2003 tolerated without problem Diltiazem (Verified Allergy, Unknown, unknown, 01/30/17) Levofloxacin (Verified Allergy, Unknown, UNKNOWN, 01/30/17) Moxifloxacin (Verified Allergy, Unknown, UNKNOWN, 01/30/17) Aspirin (Verified Adverse Reaction, Intermediate, increased bleeding (on warfarin), 01/30/17) Doxycycline (Verified Adverse Reaction, Intermediate, GI SYMPTOMS, ) Atorvastatin (Verified Adverse Reaction, Unknown, & Crestor = muscle aches /pains, 01/30/17) NSAIDs (Verified Adverse Reaction, Unknown, AVOID PER DR. HICKS - [id number] , 01/30/17) Nortriptyline (Verified Adverse Reaction, Unknown, choking on food, ) Quinidine (Verified Adverse Reaction, Unknown, flu-like symptoms, 01/30/17 ) Sulfamethoxazole w/Trimethoprim (Verified Adverse Reaction, Unknown, CONFUSION, 01/30/17) Inpatient Medications Current Inpatient Medications Medications (Trade) Dose Ordered Sig/Albin Route Start Time Stop Time Status Last Admin Dose Admin Acetaminophen (Tylenol Tab) 650 mg Q4H PRN PO 06/06/17 02:45 07/06/17 02:44 06/07/17 23:33 650 MG Al Hydrox/Mg Hydrox/Simethicone (Maalox Max Susp) 15 ml Q4H PRN PO 06/06/17 02:45 07/06/17 02:44 Magnesium Hydroxide (Milk Of Magnesia Susp) 30 ml Q12H PRN PO 06/06/17 02:45 07/06/17 02:44 Polyethylene (Miralax Powder Packet) 17 gm DAILY PRN PO 06/06/17 02:45 07/06/17 02:44 Cyanocobalamin (Vitamin B-12 Tab) 1,000 mcg QAM PO 06/06/17 09:00 07/06/17 08:59 06/09/17 08:41 1,000 MCG Diazepam (Valium Tab) 5 mg HS PO 06/06/17 21:00 07/06/17 20:59 06/08/17 21:57 5 MG Digoxin (Lanoxin Tab) 0.125 mg DAILY@1600 PO 06/06/17 16:00 07/06/17 15:59 06/08/17 17:07 0.125 MG EZETIMIBE (Zetia Tab) 10 mg HS PO 06/06/17 21:00 07/06/17 20:59 06/08/17 20:13 10 MG Fexofenadine HCl (Vickie Tab) 180 mg QAM PO 06/06/17 09:00 07/06/17 08:59 06/09/17 07:58 180 MG Gemfibrozil (Lopid Tab) 600 mg BID PO 06/06/17 21:00 07/06/17 20:59 06/09/17 07:59 600 MG Hydralazine HCl (Apresoline Tab) 25 mg BID PO 06/06/17 21:00 07/06/17 20:59 06/09/17 07:58 25 MG Insulin Glargine (Lantus Solostar Pen) 20 units BID SQ 06/06/17 09:00 07/06/17 08:59 06/09/17 08:41 20 UNITS Isosorbide Mononitrate (Imdur Ext Rel Tab) 30 mg QAM PO 06/06/17 09:00 07/06/17 08:59 06/09/17 07:59 30 MG Levothyroxine Sodium (Synthroid Tab) 175 mcg DAILYBB PO 06/06/17 06:00 07/06/17 05:59 06/09/17 05:45 175 MCG Metoprolol Succinate (Toprol Xl Tab) 100 mg DAILY PO 06/06/17 09:00 07/06/17 08:59 06/09/17 07:59 100 MG Montelukast Sodium (Singulair Tab) 10 mg QAM PO 06/06/17 09:00 07/06/17 08:59 06/09/17 07:59 10 MG Pyridoxine HCl (Vitamin B-6 Tab) 100 mg QAM PO 06/06/17 09:00 07/06/17 08:59 06/09/17 07:59 100 MG Warfarin Sodium (Coumadin Tab) 3 mg DAILY@1600 PO 06/06/17 16:00 07/06/17 15:59 Future hold 06/08/17 17:06 3 MG Cholecalciferol (Vitamin D Tab) 1,000 inter.unit TID PO 06/06/17 14:00 07/06/17 13:59 06/09/17 07:59 1,000 INTER.UNIT Spironolactone (Aldactone Tab) 50 mg BID17 PO 06/06/17 17:00 07/06/17 16:59 Future hold 06/08/17 07:51 50 MG Ondansetron HCl (Zofran Odt) 8 mg Q6H PRN PO 06/06/17 02:45 07/06/17 02:44 Insulin Aspart (novoLOG ASPART) SLIDING SCALE If C... ACHS SC 06/06/17 07:00 07/06/17 06:59 06/09/17 08:40 4 UNITS Glucose (Glucose 40% Gel) 15-30 GRAMS 15 GRAMS... UD PRN PO 06/06/17 02:45 07/06/17 02:44 Glucose (Glucose Chew Tab) 4-8 Tablets 4 Tabl... UD PRN PO 06/06/17 02:45 07/06/17 02:44 Dextrose (Dextrose 50% 50ML Syringe) 25-50ML OF 50% DW IV FOR... UD PRN IV 06/06/17 02:45 07/06/17 02:44 Glucagon (Glucagon Inj) 1 mg UD PRN SQ 06/06/17 02:45 07/06/17 02:44 Bumetanide 2 mg/ Syringe 8 ml @ 4 mls/min DAILY@ IV 06/06/17 17:00 07/06/17 16:59 Future hold 06/08/17 07:48 4 MLS/MIN Lactulose (Chronulac Syrup) 15 gm QAM PO 06/07/17 09:00 07/07/17 08:59 Future Hold 06/08/17 07:52 15 GM Morphine Sulfate (MoRPHine SULFATE INJ) 2 mg Q2HWA PRN IV 06/08/17 00:45 06/22/17 00:44 06/08/17 00:46 2 MG Albuterol/ Ipratropium (Combivent Respimat Inh) 1 puffs Q4HWA INH 06/08/17 12:00 07/08/17 11:59 06/09/17 07:58 1 PUFFS Lactobacillus Acidophilus (Floranex Tab) 4 tab TIDM PO 06/08/17 17:15 07/08/17 17:14 06/09/17 07:58 4 TAB Simethicone (Mylicon Chew Tab) 80 mg Q6H PRN PO 06/08/17 17:15 07/08/17 17:14 Family History Diabetes mellitus Heart disease Hypertension Social History Smoking Status: Former Smoker Smokeless Tobacco Use: No Alcohol Use: none Drug Use: none Marital Status: Housing Status: lives with family Occupation: retired Review of Systems A complete review of systems was performed. Pertinent positives are noted above. All other systems are negative. Physical Exam Date Time Temp Pulse Resp B/P (MAP) Pulse Ox O2 Delivery O2 Flow Rate FiO2 06/09/17 07:29 36.7 97 18 101/54 (70) 99 Room Air 06/09/17 04:00 94 Room Air 06/09/17 03:34 36.9 101 20 106/57 (73) 98 Nasal Cannula 4.0 06/09/17 00:20 37.2 110 20 129/61 (83) 94 Room Air 06/09/17 00:01 94 Room Air 06/08/17 20:00 95 Room Air 06/08/17 19:54 36.8 104 20 151/67 (95) 95 Room Air 06/08/17 17:07 96 06/08/17 16:00 Room Air 06/08/17 15:29 36.6 96 20 142/74 (96) 96 Room Air 06/08/17 12:00 92 Room Air 06/08/17 11:55 36.6 97 18 132/66 (88) 94 Room Air GENERAL: elderly female, AAA x 3, pleasant, healthy-appearing, not in any distress. HEENT: Atraumatic, normocephalic. NECK: Supple, no JVD, no carotid bruit appreciated. ENT: No sinus tenderness MOUTH and THROAT: Moist oral mucosa, no oral ulcer or pharyngeal erythema RESPIRATORY: Normal breathing efforts, crackles bilaterally, has pleural catheter on the right side CARDIOVASCULAR: S1, S2 normal, rate rhythm regular. ABDOMEN: Soft, nontender, positive bowel sound. MUSCULOSKELETAL: No CVA tenderness. No joint swelling, erythema or tenderness. Normal range of motion. SKIN: No skin rash EXTREMITY: 3+ bilateral lower extremity edema NEURO: No gross focal neurological deficit, speech fluent. PSYCHIATRY: Normal mood and judgment Laboratory Results Last 24 Hours Test 06/08/17 11:15 3/25/18 11:41 06/08/17 12:25 06/08/17 16:43 Lactic Acid Level 1.0 mmol/L Total Bilirubin 0.5 mg/dl Direct Bilirubin 0.2 mg/dl Aspartate Amino Transf (AST/SGOT) 34 U/L Alanine Aminotransferase (ALT/SGPT) 28 U/L Alkaline Phosphatase 94 U/L Total Protein 6.7 gm/dl Albumin 2.9 gm/dl Lipase 410 U/L Bedside Glucose 134 mg/dl 120 mg/dl Urine Color YELLOW Urine Appearance CLEAR Urine pH 5.0 Urine Specific [place] 1.010 Urine Protein NEG Urine Glucose (UA) NEG Urine Ketones NEG Urine Occult Blood NEG Urine Nitrite NEG Urine Bilirubin NEG Urine Urobilinogen NEG Urine Leukocyte Esterase NEG Test 06/08/17 20:47 06/09/17 06:32 06/09/17 06:49 Bedside Glucose 157 mg/dl 101 mg/dl Prothrombin Time 22.3 SECONDS Prothromb Time International Ratio 2.2 Sodium Level 136 mmol/L Potassium Level 4.1 mmol/L Chloride Level 104 mmol/L Carbon Dioxide Level 22 mmol/L Anion Gap 10.0 mmol/L Blood Urea Nitrogen 48 mg/dl Creatinine 1.94 mg/dl Est Creatinine Clear Calc Drug Dose 26.5 ml/min Estimated GFR () 28.6 Estimated GFR (Non- 24.7 BUN/Creatinine Ratio 24.9 Random Glucose 86 mg/dl Calcium Level 8.6 mg/dl Impression (1) Acute kidney injury (2) CKD (chronic kidney disease) (3) Acute on chronic diastolic CHF (congestive heart failure) (4) Anemia 77-year-old female with stage 3 chronic kidney disease secondary to cardiorenal syndrome type 2, chronic congestive heart failure with diastolic dysfunction and pulmonary hypertension, cirrhosis of liver with hepatic congestion, admitted to the hospital with acute on chronic congestive heart failure, volume overload with significant lower extremity edema. Baseline creatinine has been around 2, creatinine slightly peaked to 2.8 which now improved to baseline, electrolyte acceptable. She is responding well on the current dose of diuretics and remaining net negative around 2 L per day. Blood pressure stable. Recommendations --Agree with continuing on current diuretic dose ( Bumex 2 mg BID and spironolactone ) as she has been diuresing well, net negative around 1.5-2.5 L daily --will monitor renal function and electrolyte closely in the setting of aggressive diuresis and high urine output --will need to monitor her inpatient when switched to oral diuretics to decide on the appropriate dosing before discharge --to achieve euvolemia we may have to accept azotemia and worsening renal function --limit salt in diet --monitor renal function daily, check phosphate and magnesium every other day --check iron study Thank you for allowing me to participate in your patient's care. It was a pleasure to see Crystal
[2017-06-09] MEDS: DIGOXIN 0.125 MG TAB PO SCH (16:12)
[2017-06-09] MEDS: WARFARIN SOD 3 MG TAB PO SCH (16:13)
[2017-06-09] MEDS: EZETIMIBE 10MG TAB PO SCH (20:23)
[2017-06-09] MEDS: DIAZEPAM 5MG TAB PO SCH (22:46)
[2017-06-10] VITALS (11 sets, daily range): BP systolic 94–132; BP diastolic 40–63; PULSE 60–77; TEMP 36.6–37.3; O2SAT 93–97
[2017-06-10] MEDS: MoRPHine SULFATE 2 MG/ML CARP IV PRN (00:26)
[2017-06-10] MEDS: LEVOTHYROXINE 175 MCG TAB PO SCH (05:33)
--- NOTE | 2017-06-10 05:46 | Progress Note ---
Subjective Date of Service: late entry for visit Jun 09, 2017. Subjective Pt evaluation today including: conversation w/ patient, physical exam, chart review, lab review, conversation w/ cancer program consultant (cardiology), review of inpatient medication list Pain: abd pain resolved PO Intake: improved Voiding: no voiding problems tele stable overnight she overall feels better today no orthopnea no dyspnea at rest abd pain resolved diarrhea resolved slept better last night leg edema improved Problem List Medical Problems: (1) Anasarca Status: Acute (2) Anxiety Status: Acute (3) Arm pain, left Status: Acute (4) Back pain Status: Acute (5) Cat bite of right lower leg with infection Status: Acute (6) Cellulitis Status: Acute (7) CHF (congestive heart failure) Status: Acute (8) Chronic obstructive pulmonary disease Status: Acute (9) CKD (chronic kidney disease) Status: Chronic (10) COPD exacerbation Status: Acute (11) Dehydration Status: Acute (12) Dyspnea Status: Acute (13) Fever Status: Acute (14) Fracture of right distal radius Status: Acute (15) GI bleed Status: Acute (16) GI bleed Status: Acute (17) Guaiac + stool Status: Acute (18) Left hip pain Status: Acute (19) Medication adverse effect Status: Acute (20) Pleural effusion Status: Acute (21) PNA (pneumonia) Status: Acute (22) Pulmonary HTN Status: Acute (23) Rapid atrial fibrillation Status: Acute (24) Respiratory distress Status: Acute (25) Right arm fracture Status: Acute (26) Superficial phlebitis Status: Acute (27) Supratherapeutic INR Status: Acute Review of Systems Constitutional: No fever Respiratory: No cough Cardiac: + edema, No chest pain, No orthopnea Abdomen: No pain, No nausea, No vomiting, No diarrhea Objective Vital Signs Date Time Temp Pulse Resp B/P (MAP) Pulse Ox O2 Delivery O2 Flow Rate FiO2 06/10/17 04:00 97 Room Air 06/10/17 03:13 37.1 63 19 125/46 (72) 97 Nasal Cannula 2.0 06/10/17 00:23 37.0 62 20 104/42 (62) 94 Room Air 06/10/17 00:01 94 Room Air 06/09/17 20:00 94 Room Air 06/09/17 19:10 37.2 59 18 110/49 (69) 94 Room Air 06/09/17 16:27 99 Room Air 06/09/17 16:12 72 06/09/17 16:09 37.3 72 16 114/65 (81) 93 Room Air 06/09/17 12:01 99 Room Air 06/09/17 11:36 37.3 92 18 116/61 (79) 95 Room Air 06/09/17 10:05 89 96 06/09/17 08:01 99 Room Air 06/09/17 07:29 36.7 97 18 101/54 (70) 99 Room Air Physical Exam General Appearance: no apparent distress ENT: pharynx normal Neck: + JVD (but improved from yesterday) Respiratory/Chest: no respiratory distress, no accessory muscle use, + crackles (both bases), + pertinent finding (pleurX cath in place on right) Cardiovascular: + systolic murmur (2/6 LLSB), + gallop/S3 (vs split s2), + irregularly irregular Abdomen: normal bowel sounds, non tender, soft, + distended Extremities: + pedal edema, + swelling (thigh and lower leg edema - slighly improved) Neurologic/Psychiatric: alert, oriented x 3 Laboratory Results Last 24 Hours Test 06/09/17 06:32 06/09/17 06:49 06/09/17 11:20 06/09/17 16:23 Bedside Glucose 101 mg/dl 123 mg/dl 97 mg/dl Prothrombin Time 22.3 SECONDS Prothromb Time International Ratio 2.2 Sodium Level 136 mmol/L Potassium Level 4.1 mmol/L Chloride Level 104 mmol/L Carbon Dioxide Level 22 mmol/L Anion Gap 10.0 mmol/L Blood Urea Nitrogen 48 mg/dl Creatinine 1.94 mg/dl Est Creatinine Clear Calc Drug Dose 26.5 ml/min Estimated GFR () 28.6 Estimated GFR (Non- 24.7 BUN/Creatinine Ratio 24.9 Random Glucose 86 mg/dl Calcium Level 8.6 mg/dl Test 06/09/17 20:42 06/10/17 04:44 06/10/17 04:59 Bedside Glucose 101 mg/dl Transferrin % Saturation % Assessment and Plan 77yo female - 1. acute/chronic diastolic CHF with right-sided heart failure in the setting of severe pulmonary HTN - improving slowly with improved renal function today and copious diuresis overnight. Continue bumex IV BID and aldactone BID. Her severe pulmonary HTN is likely the culprit in her right heart disease and ongoing decompensation. There has been some discussion about considering a right-heart cath to eval her PA pressures and perform a vasodilator study. 2. abdominal pain - resolved. CT abd/pelvis without significant pathology. Lipase, LFTs, lactate all wnl. Suspect it was gaseous distension from lactulose causing pain. 3. severe pulmonary HTN - due to mitral valve disease? idiopathic? Other? Has h/o COPD but doubt it is severe enough to cause her elevated PA pressure. No h/o PE. 4. right-sided pleurX catheter for reaccumulating transudative pleural effusion - drain daily. 5. CKD stage 4 - Cr 1.9 this am. Nephrology to see. 6. cirrhosis - imaging studies dating back to 2013 show cirrhotic changes. This could be from chronic passive congestion from CHF or could be due to DAIGLE from previous fatty liver. Mild elevation in ammonia s/p 2 doses of lactulose. 7. a. fib with pacemaker in place - cont BB. Pacemaker interrogation shows good pacer function. Cardiology consult appreciated. Will need battery exchange later this year. Resumed coumadin. Daily INR. 8. supratherapeutic INR - resolved. Suspect liver dysfunction caused elevated INR. Resumed coumadin but at 3mg daily. Daily INR. 9. hypothyroidism - TSH fall 2016 was wnl. Cont synthroid same dose. 10. T2DM - controlled. 11. h/o COPD - not active at this time. 12. mechanical mitral valve - on chronic coumadin. See discussion above. 13. HTN - controlled at this time. 14. hyperlipidemia - continue outpatient meds. PT, OT evals appreciated cardiology consult appreciated await nephrology consult updated 06/08/17 progressing slowly Continued [facility] stay due to: multiple IV medications needed Discharge planning: uncertain
[2017-06-10 06:24] LABS: INR 2.3 (0.9-1.1)
[2017-06-10 06:47] LABS: CALCIUM 8.4 mg/dl (8.5-10.1); CREATININE 2.21 mg/dl (0.60-1.20); POTASSIUM 4.2 mmol/L (3.5-5.1)
[2017-06-10 06:58] LABS: PHOSPHORUS 4.2 mg/dl (2.5-4.9)
[2017-06-10] MEDS: INSULIN GLARGINE SOLOSTAR 100 UNITS/ML 3 ML PEN SQ SCH ×2 (07:54→21:13)
[2017-06-10] MEDS: FEXOFENADINE HCL 180 MG TAB PO SCH (07:56)
[2017-06-10] MEDS: SPIRONOLACTONE 25 MG TAB PO SCH ×2 (07:56→17:23)
[2017-06-10] MEDS: CYANOCOBALAMIN 500 MCG TAB (VIT B-12) PO SCH (07:57)
[2017-06-10] MEDS: CHOLECALCIFEROL 1000 INTER.UNIT TAB PO SCH ×3 (07:59→21:08)
[2017-06-10] MEDS: ISOSORBIDE MONONITRATE 30 MG TABCR PO SCH (07:59)
[2017-06-10] MEDS: METOPROLOL SUCC 50MG EXT REL TAB PO SCH (07:59)
[2017-06-10] MEDS: LACTOBACILLUS ACIDOPHILUS (FLORANEX) TAB PO SCH ×3 (07:59→17:22)
[2017-06-10] MEDS: GEMFIBROZIL 600 MG TAB PO SCH ×2 (07:59→21:08)
[2017-06-10] MEDS: MONTELUKAST SOD 10 MG TAB PO SCH (07:59)
[2017-06-10] MEDS: IPRATROPIUM BROMIDE/ALBUTEROL respimat INH INH SCH ×4 (08:00→20:38)
[2017-06-10] MEDS: PYRIDOXINE HCL 50 MG TAB PO SCH (08:00)
[2017-06-10] MEDS: BUMETANIDE IV 2 MG in SYRINGE 0 ML IV SCH ×2 (08:00→17:23)
[2017-06-10] MEDS: INSULIN ASPART 100 UNITS/ML 3 ML PEN SC SCH ×4 (08:09→21:13)
[2017-06-10] MEDS: IRON SUCROSE INJ 200 MG in SODIUM CHLORIDE 0.9% 100ML 100 ML IV SCH (09:31)
--- NOTE | 2017-06-10 10:00 | CARDIOLOGY PROGRESS NOTE ---
DATE: 06/10/2017 SUBJECTIVE: Mrs. Morales is lying supine in bed and resting comfortably. Did notice discomfort in her feet last evening which resolved with administration of intravenous morphine. OBJECTIVE: VITAL SIGNS: Blood pressure 103/40 with a regular pulse of 60. Respiratory rate is 18. The patient is afebrile at 36.9 degrees Celsius. Saturations 94% on 2 liters nasal cannula. NECK: Supple with full carotid upstrokes. No obvious bruits. Jugular venous pressure noted at the angle of the jaw. Prominent V wave noted. CARDIOVASCULAR: Reveals a regular rhythm with crisp mechanical valve sounds. LUNGS: Clear without rales, rhonchi, or wheeze. ABDOMEN: Protuberant. EXTREMITIES: Note intact radial artery pulses bilaterally. A tense pitting edema is noted across the lower extremities. LABORATORY DATA: Electrolytes note a sodium of 134, potassium 4.2, chloride 102, bicarbonate 25, BUN 55, creatinine 2.2, glucose 92. INR is 2.3. quality assurance monitor body notes atrial fibrillation with appropriate ventricular pacing. IMPRESSION AND PLAN: 1. Hypervolemia -- secondary to decompensated right-sided congestive heart failure. Continue with aggressive intravenous diuresis. 2. Cor pulmonale -- with evidence of right ventricular dysfunction and dilatation. Continue aggressive diuresis. Could consider right heart catheterization if her pulmonary pressures improve. 3. Pulmonary hypertension -- severe by calculation. 4. Dowd-Lee mitral valve replacement -- mean gradient of 8 mmHg. This is acceptable for this prosthesis. 5. Moderate to severe tricuspid regurgitation -- secondary to pulmonary hypertension. 6. Permanent atrial fibrillation -- chronically anticoagulated with Coumadin. 7. VVI pacemaker -- better longevity estimated at 6 months. No utility of upgrading her device as she notes normal left ventricular systolic function. 8. Acute on chronic renal failure. 9. Recurrent right-sided pleural effusion -- PleurX catheter per Dr. Cueva.
--- NOTE | 2017-06-10 10:20 | Nephrology Progress Note ---
Nephrology Progress Note Date of Service Jun 10, 2017. Chief Complaint Follow-up for acute kidney injury and volume overload with history of chronic kidney disease. Alicia Rojas was seen and examined in her room this morning. She has been overall feeling better. Diuresing well with significant net negative more than 4 L overnight. Electrolyte remain acceptable renal function relatively stable although creatinine slightly trending up. Review of Systems A complete review of systems was performed. Pertinent positives are noted above. All other systems are negative. Vital Signs Last 8 Hrs Date Time Temp Pulse Resp B/P (MAP) Pulse Ox O2 Delivery O2 Flow Rate FiO2 06/10/17 08:02 36.9 60 18 103/40 (61) 94 Room Air 06/10/17 04:00 97 Room Air 06/10/17 03:13 37.1 63 19 125/46 (72) 97 Nasal Cannula 2.0 Last Recorded Weight Weight (Kilograms): 81.900 Physical Exam GENERAL: Elderly female, AAA x 3, pleasant, healthy-appearing, not in any distress. NECK: Supple, no JVD. RESPIRATORY: Breathing comfortably, right-sided PleurX catheter, clear on auscultation CARDIOVASCULAR: S1, S2 normal, rate rhythm regular. EXTREMITY: 2 to 3+ bilateral lower extremity edema NEURO: speech fluent. PSYCHIATRY: Normal mood and judgment Family History Diabetes mellitus Heart disease Hypertension Social History Smoking Status: Never smoker Smokeless Tobacco Use: No Alcohol Use: none Drug Use: none Marital Status: Housing Status: lives with family Occupation: retired Laboratory Results Past 24 Hours 06/10/17 05:51 Test 06/09/17 11:20 06/09/17 16:23 06/09/17 20:42 06/10/17 05:51 Bedside Glucose 123 mg/dl (70-90) 97 mg/dl (70-90) 101 mg/dl (70-90) Prothrombin Time 23.8 SECONDS (9.0-12.0) Prothromb Time International Ratio 2.3 (0.9-1.1) Anion Gap 7.0 mmol/L (3-11) Est Creatinine Clear Calc Drug Dose 23.2 ml/min Estimated GFR () 24.5 Estimated GFR (Non- 21.1 BUN/Creatinine Ratio 24.8 (10-20) Calcium Level 8.4 mg/dl (8.5-10.1) Phosphorus Level 4.2 mg/dl (2.5-4.9) Magnesium Level 2.3 mg/dl (1.8-2.4) Iron Level 23 mcg/dl (35-150) Total Iron Binding Capacity 346 mcg/dl (250-450) Transferrin 246 mg/dl (200-360) Transferrin % Saturation 7 % (15-50) Ferritin 12.9 ng/ml (8.0-388.0) Test 06/10/17 06:33 Bedside Glucose 102 mg/dl (70-90) Allergies Coded Allergies: Penicillins (Verified Allergy, Severe, anaphylaxis 30yrs ago, also broke out with sores, 01/30/17) NOTE: Timentin 05/2003 tolerated without problem Diltiazem (Verified Allergy, Unknown, unknown, 01/30/17) Levofloxacin (Verified Allergy, Unknown, UNKNOWN, 01/30/17) Moxifloxacin (Verified Allergy, Unknown, UNKNOWN, 01/30/17) Aspirin (Verified Adverse Reaction, Intermediate, increased bleeding (on warfarin), 01/30/17) Doxycycline (Verified Adverse Reaction, Intermediate, GI SYMPTOMS, ) Atorvastatin (Verified Adverse Reaction, Unknown, & Crestor = muscle aches /pains, 01/30/17) NSAIDs (Verified Adverse Reaction, Unknown, AVOID PER DR. HICKS - [id number] , 01/30/17) Nortriptyline (Verified Adverse Reaction, Unknown, choking on food, ) Quinidine (Verified Adverse Reaction, Unknown, flu-like symptoms, 01/30/17 ) Sulfamethoxazole w/Trimethoprim (Verified Adverse Reaction, Unknown, CONFUSION, 01/30/17) Medications Current Inpatient Medications Medications (Trade) Dose Ordered Sig/Albin Route Start Time Stop Time Status Last Admin Dose Admin Acetaminophen (Tylenol Tab) 650 mg Q4H PRN PO 06/06/17 02:45 07/06/17 02:44 06/07/17 23:33 650 MG Al Hydrox/Mg Hydrox/Simethicone (Maalox Max Susp) 15 ml Q4H PRN PO 06/06/17 02:45 07/06/17 02:44 Magnesium Hydroxide (Milk Of Magnesia Susp) 30 ml Q12H PRN PO 06/06/17 02:45 07/06/17 02:44 Polyethylene (Miralax Powder Packet) 17 gm DAILY PRN PO 06/06/17 02:45 07/06/17 02:44 Cyanocobalamin (Vitamin B-12 Tab) 1,000 mcg QAM PO 06/06/17 09:00 07/06/17 08:59 06/10/17 07:57 1,000 MCG Diazepam (Valium Tab) 5 mg HS PO 06/06/17 21:00 07/06/17 20:59 06/09/17 22:46 5 MG Digoxin (Lanoxin Tab) 0.125 mg DAILY@1600 PO 06/06/17 16:00 07/06/17 15:59 06/09/17 16:12 0.125 MG EZETIMIBE (Zetia Tab) 10 mg HS PO 06/06/17 21:00 07/06/17 20:59 06/09/17 20:23 10 MG Fexofenadine HCl (Vickie Tab) 180 mg QAM PO 06/06/17 09:00 07/06/17 08:59 06/10/17 07:56 180 MG Gemfibrozil (Lopid Tab) 600 mg BID PO 06/06/17 21:00 07/06/17 20:59 06/10/17 07:59 600 MG Hydralazine HCl (Apresoline Tab) 25 mg BID PO 06/06/17 21:00 07/06/17 20:59 06/10/17 07:57 25 MG Insulin Glargine (Lantus Solostar Pen) 20 units BID SQ 06/06/17 09:00 07/06/17 08:59 06/09/17 08:41 20 UNITS Isosorbide Mononitrate (Imdur Ext Rel Tab) 30 mg QAM PO 06/06/17 09:00 07/06/17 08:59 06/10/17 07:59 30 MG Levothyroxine Sodium (Synthroid Tab) 175 mcg DAILYBB PO 06/06/17 06:00 07/06/17 05:59 06/10/17 05:33 175 MCG Metoprolol Succinate (Toprol Xl Tab) 100 mg DAILY PO 06/06/17 09:00 07/06/17 08:59 06/10/17 07:59 100 MG Montelukast Sodium (Singulair Tab) 10 mg QAM PO 06/06/17 09:00 07/06/17 08:59 06/10/17 07:59 10 MG Pyridoxine HCl (Vitamin B-6 Tab) 100 mg QAM PO 06/06/17 09:00 07/06/17 08:59 06/10/17 08:00 100 MG Warfarin Sodium (Coumadin Tab) 3 mg DAILY@1600 PO 06/06/17 16:00 07/06/17 15:59 Future hold 06/09/17 16:13 3 MG Cholecalciferol (Vitamin D Tab) 1,000 inter.unit TID PO 06/06/17 14:00 07/06/17 13:59 06/10/17 07:59 1,000 INTER.UNIT Spironolactone (Aldactone Tab) 50 mg BID17 PO 06/06/17 17:00 07/06/17 16:59 Future hold 06/10/17 07:56 50 MG Ondansetron HCl (Zofran Odt) 8 mg Q6H PRN PO 06/06/17 02:45 07/06/17 02:44 Insulin Aspart (novoLOG ASPART) SLIDING SCALE If C... ACHS SC 06/06/17 07:00 07/06/17 06:59 06/10/17 08:09 3 UNITS Glucose (Glucose 40% Gel) 15-30 GRAMS 15 GRAMS... UD PRN PO 06/06/17 02:45 07/06/17 02:44 Glucose (Glucose Chew Tab) 4-8 Tablets 4 Tabl... UD PRN PO 06/06/17 02:45 07/06/17 02:44 Dextrose (Dextrose 50% 50ML Syringe) 25-50ML OF 50% DW IV FOR... UD PRN IV 06/06/17 02:45 07/06/17 02:44 Glucagon (Glucagon Inj) 1 mg UD PRN SQ 06/06/17 02:45 07/06/17 02:44 Bumetanide 2 mg/ Syringe 8 ml @ 4 mls/min DAILY@,17 IV 06/06/17 17:00 07/06/17 16:59 Future hold 06/10/17 08:00 4 MLS/MIN Lactulose (Chronulac Syrup) 15 gm QAM PO 3/24/18 09:00 07/07/17 08:59 Future Hold 06/08/17 07:52 15 GM Morphine Sulfate (MoRPHine SULFATE INJ) 2 mg Q2HWA PRN IV 06/08/17 00:45 06/22/17 00:44 06/10/17 00:26 2 MG Albuterol/ Ipratropium (Combivent Respimat Inh) 1 puffs Q4HWA INH 06/08/17 12:00 07/08/17 11:59 06/10/17 08:00 1 PUFFS Lactobacillus Acidophilus (Floranex Tab) 4 tab TIDM PO 06/08/17 17:15 07/08/17 17:14 06/10/17 07:59 4 TAB Simethicone (Mylicon Chew Tab) 80 mg Q6H PRN PO 06/08/17 17:15 07/08/17 17:14 Impression (1) Acute kidney injury (2) CKD (chronic kidney disease) (3) Acute on chronic diastolic CHF (congestive heart failure) (4) Anemia 77-year-old female with stage 3 chronic kidney disease secondary to cardiorenal syndrome type 2, chronic congestive heart failure with diastolic dysfunction and pulmonary hypertension, cirrhosis of liver with hepatic congestion, admitted to the hospital with acute on chronic congestive heart failure, volume overload with significant lower extremity edema. Baseline creatinine has been around 2, creatinine slightly peaked to 2.8 which now improved to baseline, electrolyte acceptable. She is responding well on the current dose of diuretics and remaining net negative around 2 L per day. Blood pressure stable. Recommendations - continue on IV diuretics for now ( Bumex 2 mg BID and spironolactone ) as she has been diuresing well, net negative 4 L --renal function relatively stable, electrolyte acceptable will monitor renal function and electrolyte closely in the setting of aggressive diuresis and high urine output --will need to monitor her inpatient when switched to oral diuretics to decide on the appropriate dosing before discharge --to achieve euvolemia we may have to accept azotemia and worsening renal function --start on Venofer for IV, consider GI evaluation for significant iron deficiency anemia Will follow
[2017-06-10] MEDS: WARFARIN SOD 3 MG TAB PO SCH (15:56)
[2017-06-10] MEDS: DIGOXIN 0.125 MG TAB PO SCH (15:59)
[2017-06-10] MEDS: EZETIMIBE 10MG TAB PO SCH (21:08)
[2017-06-10] MEDS: DIAZEPAM 5MG TAB PO SCH (21:53)
[2017-06-11] VITALS (8 sets, daily range): BP systolic 107–149; BP diastolic 46–68; PULSE 71–76; TEMP 36.5–36.9; O2SAT 93–97
[2017-06-11] MEDS: LEVOTHYROXINE 175 MCG TAB PO SCH (06:19)
--- NOTE | 2017-06-11 06:52 | Progress Note ---
Subjective Date of Service: Jun 10, 2017. Subjective Pt evaluation today including: conversation w/ patient, conversation w/ family (son by phone), physical exam, chart review, lab review Pain: night-time leg cramps/charley horses PO Intake: normal Voiding: no voiding problems, no incontinence tele stable overnight a. fib with some pacing orthopnea improved dyspnea improved LE edema maybe slightly improved no abd pain no new complaints 600cc via pleurX today on right Problem List Medical Problems: (1) Anasarca Status: Acute (2) Anxiety Status: Acute (3) Arm pain, left Status: Acute (4) Back pain Status: Acute (5) Cat bite of right lower leg with infection Status: Acute (6) Cellulitis Status: Acute (7) CHF (congestive heart failure) Status: Acute (8) Chronic obstructive pulmonary disease Status: Acute (9) CKD (chronic kidney disease) Status: Chronic (10) COPD exacerbation Status: Acute (11) Dehydration Status: Acute (12) Dyspnea Status: Acute (13) Fever Status: Acute (14) Fracture of right distal radius Status: Acute (15) GI bleed Status: Acute (16) GI bleed Status: Acute (17) Guaiac + stool Status: Acute (18) Left hip pain Status: Acute (19) Medication adverse effect Status: Acute (20) Pleural effusion Status: Acute (21) PNA (pneumonia) Status: Acute (22) Pulmonary HTN Status: Acute (23) Rapid atrial fibrillation Status: Acute (24) Respiratory distress Status: Acute (25) Right arm fracture Status: Acute (26) Superficial phlebitis Status: Acute (27) Supratherapeutic INR Status: Acute Review of Systems Constitutional: No fever Respiratory: No cough Cardiac: No chest pain, No orthopnea Abdomen: No pain, No nausea, No vomiting Objective Vital Signs Date Time Temp Pulse Resp B/P (MAP) Pulse Ox O2 Delivery O2 Flow Rate FiO2 06/10/17 21:53 60 112/51 (71) 06/10/17 20:41 37.3 76 20 94/40 (58) 93 Room Air 06/10/17 20:00 Room Air 06/10/17 16:00 94 Room Air 06/10/17 15:59 36.7 61 20 132/54 (80) 94 Room Air 06/10/17 15:59 68 06/10/17 12:33 36.6 65 18 101/63 (76) 97 06/10/17 12:15 Room Air 06/10/17 08:02 36.9 60 18 103/40 (61) 94 Room Air 06/10/17 08:00 Room Air 06/10/17 04:00 97 Room Air 06/10/17 03:13 37.1 63 19 125/46 (72) 97 Nasal Cannula 2.0 06/10/17 00:23 37.0 62 20 104/42 (62) 94 Room Air 06/10/17 00:01 94 Room Air Physical Exam General Appearance: no apparent distress ENT: pharynx normal Neck: + JVD (to the jaw) Respiratory/Chest: no respiratory distress, no accessory muscle use, + decreased breath sounds (right base - mild), + rales (left base - no change) Cardiovascular: no gallop, + gallop/S3 (vs split S2), + irregularly irregular, + pertinent finding (mechanical valve closure sound) Abdomen: normal bowel sounds, no organomegaly, + distended, + tenderness ( epigastric region) Extremities: + pedal edema, + swelling (thigh and lower legs - maybe slightly improved; still about 2+ b/l throughout) Neurologic/Psychiatric: alert, oriented x 3 Laboratory Results Last 24 Hours Test 06/10/17 05:51 06/10/17 06:33 06/10/17 11:18 06/10/17 16:20 Prothrombin Time 23.8 SECONDS Prothromb Time International Ratio 2.3 Sodium Level 134 mmol/L Potassium Level 4.2 mmol/L Chloride Level 102 mmol/L Carbon Dioxide Level 25 mmol/L Anion Gap 7.0 mmol/L Blood Urea Nitrogen 55 mg/dl Creatinine 2.21 mg/dl Est Creatinine Clear Calc Drug Dose 23.2 ml/min Estimated GFR () 24.5 Estimated GFR (Non- 21.1 BUN/Creatinine Ratio 24.8 Random Glucose 92 mg/dl Calcium Level 8.4 mg/dl Phosphorus Level 4.2 mg/dl Magnesium Level 2.3 mg/dl Iron Level 23 mcg/dl Total Iron Binding Capacity 346 mcg/dl Transferrin 246 mg/dl Transferrin % Saturation 7 % Ferritin 12.9 ng/ml Bedside Glucose 102 mg/dl 132 mg/dl 100 mg/dl Test 06/10/17 20:18 Bedside Glucose 113 mg/dl Assessment and Plan 77yo female - 1. acute/chronic diastolic CHF with right-sided heart failure in the setting of severe pulmonary HTN - improving slowly with stable renal function today. Continue bumex IV BID and aldactone BID. Her severe pulmonary HTN is likely the culprit in her right heart disease and ongoing decompensation. There has been some discussion about considering a right-heart cath to eval her PA pressures and perform a vasodilator study. 2. abdominal pain - resolved. CT abd/pelvis without significant pathology. Lipase, LFTs, lactate all wnl. Suspect it was gaseous distension from lactulose causing pain. 3. severe pulmonary HTN - due to mitral valve disease? idiopathic? Other? Has h/o COPD but doubt it is severe enough to cause her elevated PA pressure. No h/o PE. 4. right-sided pleurX catheter for reaccumulating transudative pleural effusion - drain daily. Managed in outpatient setting by Dr. Cueva. 5. CKD stage 4 - Cr acceptable today; nephrology following 6. cirrhosis - imaging studies dating back to 2013 show cirrhotic changes. This could be from chronic passive congestion from CHF or could be due to DAIGLE from previous fatty liver. Mild elevation in ammonia s/p 2 doses of lactulose. Recheck level in am. 7. a. fib with pacemaker in place - cont BB. Pacemaker interrogation shows good pacer function. Cardiology consult appreciated. Will need battery exchange later this year however. Resumed coumadin following an initial supratherapeutic INR. Daily INR. 8. supratherapeutic INR - resolved. Suspect liver dysfunction caused elevated INR. Resumed coumadin but at 3mg daily. Daily INR. 9. hypothyroidism - TSH fall 2016 was wnl. Cont synthroid same dose. 10. T2DM - controlled. 11. h/o COPD - not active at this time. 12. mechanical mitral valve - on chronic coumadin. See discussion above. Dr. Lunsford feels the valve function is acceptable at this time. 13. HTN - controlled at this time. 14. hyperlipidemia - continue outpatient meds. 15. iron deficiency anemia - likely causing her night-time cramps. s/p IV iron today by Dr. Oswald ?cause of Fe deficiency? PT, OT evals appreciated - cleared for home cardiology consult appreciated nephrology consult appreciated updated 06/08/17; son updated 06/10/17 progressing slowly Continued [facility] stay due to: multiple IV medications needed Discharge planning: home with home health
[2017-06-11 07:27] LABS: HEMOGLOBIN 8.5 g/dL (12.0-16.0); MEAN CELL VOLUME 78.4 fL (80-100); MEAN CORPUSCULAR HEMOGLOBIN 23.8 pg (25-34); MEAN CORPUSCULAR HGB CONC 30.4 g/dl (32-36); MEAN PLATELET VOLUME 9.1 fL (7.4-10.4); PLATELET COUNT 181 K/uL (130-400); RED CELL DISTRIBUTION WIDTH CV 18.3 % (11.5-14.5); RED CELL DISTRIBUTION WIDTH SD 52.2 fL (36.4-46.3); WHITE BLOOD COUNT 5.43 K/uL (4.8-10.8)
[2017-06-11 07:37] LABS: INR 2.5 (0.9-1.1)
[2017-06-11 07:56] LABS: CALCIUM 8.5 mg/dl (8.5-10.1); CREATININE 2.11 mg/dl (0.60-1.20); POTASSIUM 3.9 mmol/L (3.5-5.1)
[2017-06-11] MEDS: PYRIDOXINE HCL 50 MG TAB PO SCH (09:11)
[2017-06-11] MEDS: FEXOFENADINE HCL 180 MG TAB PO SCH (09:11)
[2017-06-11] MEDS: CHOLECALCIFEROL 1000 INTER.UNIT TAB PO SCH ×3 (09:11→21:00)
[2017-06-11] MEDS: METOPROLOL SUCC 50MG EXT REL TAB PO SCH (09:11)
[2017-06-11] MEDS: CYANOCOBALAMIN 500 MCG TAB (VIT B-12) PO SCH (09:12)
[2017-06-11] MEDS: LACTOBACILLUS ACIDOPHILUS (FLORANEX) TAB PO SCH ×3 (09:12→18:00)
[2017-06-11] MEDS: SPIRONOLACTONE 25 MG TAB PO SCH ×2 (09:13→18:00)
[2017-06-11] MEDS: SIMETHICONE 80 MG CHEW PO PRN (09:13)
[2017-06-11] MEDS: GEMFIBROZIL 600 MG TAB PO SCH ×2 (09:13→21:00)
[2017-06-11] MEDS: INSULIN ASPART 100 UNITS/ML 3 ML PEN SC SCH ×4 (09:21→21:00)
[2017-06-11] MEDS: INSULIN GLARGINE SOLOSTAR 100 UNITS/ML 3 ML PEN SQ SCH ×2 (09:22→23:06)
[2017-06-11] MEDS: ISOSORBIDE MONONITRATE 30 MG TABCR PO SCH (09:24)
[2017-06-11] MEDS: IPRATROPIUM BROMIDE/ALBUTEROL respimat INH INH SCH ×4 (09:25→20:00)
[2017-06-11] MEDS: MONTELUKAST SOD 10 MG TAB PO SCH (09:31)
--- NOTE | 2017-06-11 09:33 | CARDIOLOGY PROGRESS NOTE ---
DATE: 06/11/2017 SUBJECTIVE: Mrs. Morales is resting comfortably in bed without complaints of chest pain. She does note dyspnea when ambulating. She is anxious for hospital discharge. OBJECTIVE: VITAL SIGNS: Blood pressure is 119/68 with a regular pulse of 72. Respirations 18. The patient is afebrile at 36.5 degrees centigrade. Saturation is 97% on room air. NECK: Supple with full carotid upstrokes. No obvious bruits. Jugular venous pressure noted at the angle of the jaw. A prominent V wave identified. CARDIOVASCULAR: Reveals a regular rhythm with crisp mechanical valve sounds. LUNGS: Clear without rales, rhonchi, or wheezes. ABDOMEN: Protuberant. EXTREMITIES: Reveal intact radial artery pulses bilaterally. Dense edema noted across the lower extremities. DATA: CBC notes hemoglobin of 8.5, hematocrit 28.0, white count 5.4, and platelet count 81,000. Electrolytes note a sodium of 135, potassium 3.9, chloride 103, bicarbonate 25, BUN 63, creatinine 2.1, glucose 82. INR is 2.5. Telemetry notes atrial fibrillation with appropriate ventricular pacing. IMPRESSION AND PLAN: 1. Hypervolemia -- secondary to right-sided congestive heart failure. Continue with aggressive diuresis. Improving. 2. Cor pulmonale -- with right ventricular dysfunction and dilatation. 3. Continue diuresis as above. 4. Pulmonary hypertension -- severe by tricuspid regurgitant jet velocity calculation. 5. Dowd-Lee mitral valve replacement, mean gradient of 8, acceptable for this prosthesis. 6. [id number] tricuspid regurgitation -- secondary to severe pulmonary hypertension. 7. Permanent atrial fibrillation. 8. VVI pacemaker -- battery longevity estimated at 6 months. We will continue close followup as an outpatient. No need to upgrade device as she has normal left ventricular systolic function. 9. [id number]-rclejca renal failure. 10. Recurrent right-sided pleural effusion -- PleurX catheter management per Dr. Cueva.
--- NOTE | 2017-06-11 10:40 | Nephrology Progress Note ---
Nephrology Progress Note Date of Service Jun 11, 2017. Chief Complaint Follow-up for acute kidney injury and volume overload with history of chronic kidney disease. Alicia Rojas was seen and examined in her room this morning. She has been overall feeling better. Diuresing well with significant net negative more than L overnight, more than 10L since admission. Electrolyte remain acceptable renal function relatively stable. Review of Systems A complete review of systems was performed. Pertinent positives are noted above. All other systems are negative. Vital Signs Last 8 Hrs Date Time Temp Pulse Resp B/P (MAP) Pulse Ox O2 Delivery O2 Flow Rate FiO2 06/11/17 07:44 36.5 72 18 119/68 (85) 97 06/11/17 04:00 Room Air 06/11/17 03:48 36.9 74 17 114/46 (68) 93 Room Air 06/10/17 23:59 Room Air Last Recorded Weight Weight (Kilograms): 81.900 Physical Exam GENERAL: Elderly female, AAA x 3, pleasant, healthy-appearing, not in any distress. NECK: Supple, no JVD. RESPIRATORY: Breathing comfortably, right-sided PleurX catheter, clear on auscultation CARDIOVASCULAR: S1, S2 normal, rate rhythm regular. EXTREMITY: 2 bilateral lower extremity edema NEURO: speech fluent. PSYCHIATRY: Normal mood and judgment Family History Diabetes mellitus Heart disease Hypertension Social History Smoking Status: Never smoker Smokeless Tobacco Use: No Alcohol Use: none Drug Use: none Marital Status: Housing Status: lives with family Occupation: retired Laboratory Results Past 24 Hours 06/11/17 07:14 Test 06/10/17 11:18 06/10/17 16:20 06/10/17 20:18 06/11/17 07:14 Bedside Glucose 132 mg/dl (70-90) 100 mg/dl (70-90) 113 mg/dl (70-90) Red Blood Count 3.57 M/uL (4.2-5.4) Mean Corpuscular Volume 78.4 fL (80-100) Mean Corpuscular Hemoglobin 23.8 pg (25-34) Mean Corpuscular Hemoglobin Concent 30.4 g/dl (32-36) RDW Standard Deviation 52.2 fL (36.4-46.3) RDW Coefficient of Variation 18.3 % (11.5-14.5) Mean Platelet Volume 9.1 fL (7.4-10.4) Prothrombin Time 25.7 SECONDS (9.0-12.0) Prothromb Time International Ratio 2.5 (0.9-1.1) Allergies Coded Allergies: Penicillins (Verified Allergy, Severe, anaphylaxis 30yrs ago, also broke out with sores, 01/30/17) NOTE: Timentin 05/2003 tolerated without problem Diltiazem (Verified Allergy, Unknown, unknown, 01/30/17) Levofloxacin (Verified Allergy, Unknown, UNKNOWN, 01/30/17) Moxifloxacin (Verified Allergy, Unknown, UNKNOWN, 01/30/17) Aspirin (Verified Adverse Reaction, Intermediate, increased bleeding (on warfarin), 01/30/17) Doxycycline (Verified Adverse Reaction, Intermediate, GI SYMPTOMS, ) Atorvastatin (Verified Adverse Reaction, Unknown, & Crestor = muscle aches /pains, 01/30/17) NSAIDs (Verified Adverse Reaction, Unknown, AVOID PER DR. HICKS - [id number] , 01/30/17) Nortriptyline (Verified Adverse Reaction, Unknown, choking on food, ) Quinidine (Verified Adverse Reaction, Unknown, flu-like symptoms, 01/30/17 ) Sulfamethoxazole w/Trimethoprim (Verified Adverse Reaction, Unknown, CONFUSION, 01/30/17) Medications Current Inpatient Medications Medications (Trade) Dose Ordered Sig/Albin Route Start Time Stop Time Status Last Admin Dose Admin Acetaminophen (Tylenol Tab) 650 mg Q4H PRN PO 06/06/17 02:45 07/06/17 02:44 06/07/17 23:33 650 MG Al Hydrox/Mg Hydrox/Simethicone (Maalox Max Susp) 15 ml Q4H PRN PO 06/06/17 02:45 07/06/17 02:44 Magnesium Hydroxide (Milk Of Magnesia Susp) 30 ml Q12H PRN PO 06/06/17 02:45 07/06/17 02:44 Polyethylene (Miralax Powder Packet) 17 gm DAILY PRN PO 06/06/17 02:45 07/06/17 02:44 Cyanocobalamin (Vitamin B-12 Tab) 1,000 mcg QAM PO 06/06/17 09:00 07/06/17 08:59 06/10/17 07:57 1,000 MCG Diazepam (Valium Tab) 5 mg HS PO 06/06/17 21:00 07/06/17 20:59 06/10/17 21:53 5 MG Digoxin (Lanoxin Tab) 0.125 mg DAILY@1600 PO 06/06/17 16:00 07/06/17 15:59 06/10/17 15:59 0.125 MG EZETIMIBE (Zetia Tab) 10 mg HS PO 06/06/17 21:00 07/06/17 20:59 06/10/17 21:08 10 MG Fexofenadine HCl (Vickie Tab) 180 mg QAM PO 06/06/17 09:00 07/06/17 08:59 06/10/17 07:56 180 MG Gemfibrozil (Lopid Tab) 600 mg BID PO 06/06/17 21:00 07/06/17 20:59 06/10/17 21:08 600 MG Hydralazine HCl (Apresoline Tab) 25 mg BID PO 06/06/17 21:00 07/06/17 20:59 06/10/17 21:06 25 MG Insulin Glargine (Lantus Solostar Pen) 20 units BID SQ 06/06/17 09:00 07/06/17 08:59 06/10/17 21:13 20 UNITS Isosorbide Mononitrate (Imdur Ext Rel Tab) 30 mg QAM PO 06/06/17 09:00 07/06/17 08:59 06/10/17 07:59 30 MG Levothyroxine Sodium (Synthroid Tab) 175 mcg DAILYBB PO 06/06/17 06:00 07/06/17 05:59 06/11/17 06:19 175 MCG Metoprolol Succinate (Toprol Xl Tab) 100 mg DAILY PO 06/06/17 09:00 07/06/17 08:59 06/10/17 07:59 100 MG Montelukast Sodium (Singulair Tab) 10 mg QAM PO 06/06/17 09:00 07/06/17 08:59 06/10/17 07:59 10 MG Pyridoxine HCl (Vitamin B-6 Tab) 100 mg QAM PO 06/06/17 09:00 07/06/17 08:59 06/10/17 08:00 100 MG Warfarin Sodium (Coumadin Tab) 3 mg DAILY@1600 PO 06/06/17 16:00 07/06/17 15:59 Future hold 06/10/17 15:56 3 MG Cholecalciferol (Vitamin D Tab) 1,000 inter.unit TID PO 06/06/17 14:00 07/06/17 13:59 06/10/17 21:08 1,000 INTER.UNIT Spironolactone (Aldactone Tab) 50 mg BID17 PO 06/06/17 17:00 07/06/17 16:59 Future hold 06/10/17 17:23 50 MG Ondansetron HCl (Zofran Odt) 8 mg Q6H PRN PO 06/06/17 02:45 07/06/17 02:44 Insulin Aspart (novoLOG ASPART) SLIDING SCALE If C... ACHS SC 06/06/17 07:00 07/06/17 06:59 06/10/17 21:13 2 UNITS Glucose (Glucose 40% Gel) 15-30 GRAMS 15 GRAMS... UD PRN PO 06/06/17 02:45 07/06/17 02:44 Glucose (Glucose Chew Tab) 4-8 Tablets 4 Tabl... UD PRN PO 06/06/17 02:45 07/06/17 02:44 Dextrose (Dextrose 50% 50ML Syringe) 25-50ML OF 50% DW IV FOR... UD PRN IV 06/06/17 02:45 07/06/17 02:44 Glucagon (Glucagon Inj) 1 mg UD PRN SQ 06/06/17 02:45 07/06/17 02:44 Bumetanide 2 mg/ Syringe 8 ml @ 4 mls/min DAILY@17 IV 06/06/17 17:00 07/06/17 16:59 Future hold 06/10/17 17:23 4 MLS/MIN Lactulose (Chronulac Syrup) 15 gm QAM PO 06/07/17 09:00 07/07/17 08:59 Future Hold 06/08/17 07:52 15 GM Morphine Sulfate (MoRPHine SULFATE INJ) 2 mg Q2HWA PRN IV 06/08/17 00:45 06/22/17 00:44 06/10/17 00:26 2 MG Albuterol/ Ipratropium (Combivent Respimat Inh) 1 puffs Q4HWA INH 06/08/17 12:00 07/08/17 11:59 06/10/17 20:38 1 PUFFS Lactobacillus Acidophilus (Floranex Tab) 4 tab TIDM PO 06/08/17 17:15 07/08/17 17:14 06/10/17 17:22 4 TAB Simethicone (Mylicon Chew Tab) 80 mg Q6H PRN PO 06/08/17 17:15 07/08/17 17:14 Iron Sucrose 200 mg/Sodium Chloride 110 ml @ 420 mls/hr Q2D@0900 IV 06/10/17 09:00 06/18/17 09:16 06/10/17 09:31 420 MLS/HR Impression (1) Acute kidney injury (2) CKD (chronic kidney disease) (3) Acute on chronic diastolic CHF (congestive heart failure) (4) Anemia 77-year-old female with stage 3 chronic kidney disease secondary to cardiorenal syndrome type 2, chronic congestive heart failure with diastolic dysfunction and pulmonary hypertension, cirrhosis of liver with hepatic congestion, admitted to the hospital with acute on chronic congestive heart failure, volume overload with significant lower extremity edema. Baseline creatinine has been around 2, creatinine slightly peaked to 2.8 which now improved to baseline, electrolyte acceptable. She is responding well on the current dose of diuretics and remaining net negative around 2 L per day. Blood pressure stable. Recommendations - change to Bumex 2 mg po BID as she has been diuresing well, net negative 2 L , aim for net negative 0.5-1L/24 h --renal function relatively stable, electrolyte acceptable will monitor renal function and electrolyte closely in the setting of aggressive diuresis and high urine output --to achieve euvolemia we may have to accept azotemia and worsening renal function --on Venofer for IV, consider GI evaluation for significant iron deficiency anemia Will follow
[2017-06-11] MEDS: BUMETANIDE 1 MG TAB PO SCH ×2 (10:45→18:00)
[2017-06-11] MEDS: WARFARIN SOD 3 MG TAB PO SCH (16:34)
[2017-06-11] MEDS: DIGOXIN 0.125 MG TAB PO SCH (16:36)
[2017-06-11] MEDS: EZETIMIBE 10MG TAB PO SCH (21:00)
[2017-06-11] MEDS: DIAZEPAM 5MG TAB PO SCH (22:00)
[2017-06-12] VITALS (8 sets, daily range): BP systolic 98–132; BP diastolic 42–69; PULSE 62–76; TEMP 36.5–37.4; O2SAT 93–97
--- NOTE | 2017-06-12 00:18 | Hospitalist Progress Note ---
Hospitalist Progress Note Date of Service Jun 11, 2017. Subjective Pt evaluation today including: conversation w/ patient pt feeling better, not SOB, no CP. COntinues to diurese. Tele with mostly paced rhythm, some Afib with rates in the 60s All Other Systems: Reviewed and Negative Objective Vital Signs Date Time Temp Pulse Resp B/P (MAP) Pulse Ox O2 Delivery O2 Flow Rate FiO2 06/11/17 23:28 36.8 71 18 107/52 (70) 94 Room Air 06/11/17 16:36 64 06/11/17 16:00 96 Room Air 06/11/17 15:41 36.5 76 18 149/66 (93) 96 06/11/17 12:01 36.7 76 16 124/63 (83) 96 06/11/17 12:00 97 Room Air 2.0 Nasal Cannula 06/11/17 08:00 97 Room Air 2.0 Nasal Cannula 06/11/17 07:44 36.5 72 18 119/68 (85) 97 06/11/17 04:00 Room Air 06/11/17 03:48 36.9 74 17 114/46 (68) 93 Room Air 06/10/17 23:59 Room Air Physical Exam General Appearance: WD/WN, no apparent distress Eyes: normal inspection, sclerae normal ENT: hearing grossly normal Neck: trachea midline Respiratory/Chest: no respiratory distress, no accessory muscle use, + decreased breath sounds (at bases bilat), + crackles (at the bases bilat), + pertinent finding (PleurX catheter in place with dressing overlying c/d/i on right hemothorax) Cardiovascular: + irregularly irregular, + pertinent finding (loud S1 click) Abdomen: normal bowel sounds, non tender, soft Extremities: no calf tenderness, + swelling (1-2+ pitting edema to the thighs bilat) Neurologic/Psychiatric: alert, normal mood/affect, oriented x 3 Skin: normal color, warm/dry, no rash Laboratory Results Last 24 Hours Test 06/11/17 06:58 06/11/17 07:14 06/11/17 11:34 06/11/17 16:10 Bedside Glucose 94 mg/dl 85 mg/dl 120 mg/dl White Blood Count 5.43 K/uL Red Blood Count 3.57 M/uL Hemoglobin 8.5 g/dL Hematocrit 28.0 % Mean Corpuscular Volume 78.4 fL Mean Corpuscular Hemoglobin 23.8 pg Mean Corpuscular Hemoglobin Concent 30.4 g/dl RDW Standard Deviation 52.2 fL RDW Coefficient of Variation 18.3 % Platelet Count 181 K/uL Mean Platelet Volume 9.1 fL Prothrombin Time 25.7 SECONDS Prothromb Time International Ratio 2.5 Sodium Level 135 mmol/L Potassium Level 3.9 mmol/L Chloride Level 103 mmol/L Carbon Dioxide Level 25 mmol/L Anion Gap 7.0 mmol/L Blood Urea Nitrogen 63 mg/dl Creatinine 2.11 mg/dl Est Creatinine Clear Calc Drug Dose 24.4 ml/min Estimated GFR () 25.9 Estimated GFR (Non- 22.3 BUN/Creatinine Ratio 29.8 Random Glucose 82 mg/dl Calcium Level 8.5 mg/dl Ammonia 35.9 umol/L Test 06/11/17 20:26 Bedside Glucose 106 mg/dl Assessment and Plan The patient is a 77-year-old female who presents with worsening lower extremity edema causing pain in her legs, and shortness of breath not responsive to increasing outpatient dosages of Lasix. Has had 25 lb weight gain in the last month. She has a Pleurx catheter placed by Dr. Cueva on 05/05/17, that she reports is drained daily by a visiting nurse. Acute/chronic diastolic CHF with right-sided heart failure in the setting of severe pulmonary HTN - continues to improve with stable renal function today. has diuresed 12 L of fluid so far Received bumex IV BID and aldactone BID. Now will change to po Bumex today 2mg po bid Her severe pulmonary HTN is likely the culprit in her right heart disease and ongoing decompensation. There has been some discussion about considering a right-heart cath to eval her PA pressures and perform a vasodilator study. Appreciate Cardiology consultation -continue strict I/Os, daily weights, low Na+ diet, fluid restrict to 1500 ml/ day Abdominal pain - resolved. CT abd/pelvis without significant pathology. Lipase, LFTs, lactate all wnl. Suspect it was gaseous distension from lactulose causing pain. Severe pulmonary HTN - due to mitral valve disease? idiopathic? Other? Has h/ o COPD but doubt it is severe enough to cause her elevated PA pressure. No h/o PE. Right-sided pleurX catheter for reaccumulating transudative pleural effusion - drain daily. Managed in outpatient setting by Dr. Cueva. CKD stage 4 - Cr acceptable today; nephrology following-appreciate consultation Cirrhosis - imaging studies dating back to 2013 show cirrhotic changes. This could be from chronic passive congestion from CHF or could be due to DAIGLE from previous fatty liver. Mild elevation in ammonia s/p 2 doses of lactulose. No evidence of encephalopathy at this time, repeat NH3 level is 35.9 and is moving her bowels regularly Permanent a. fib with pacemaker in place - nearing end of battery life -cont BB. Pacemaker interrogation shows good pacer function. Cardiology consult appreciated. Will need battery exchange later this year however. Daily INR-today therapeutic at 2.5 with goal 2.5-3.5 with ball and cage mechanical MV hypothyroidism - TSH fall 2016 was wnl. Cont synthroid same dose. T2DM - controlled. COPD - not active at this time. mechanical mitral valve - on chronic coumadin. See discussion above. Dr. Lunsford feels the valve function is acceptable at this time. HTN - controlled at this time. hyperlipidemia - continue outpatient meds. iron deficiency anemia - likely causing her night-time cramps. Ferritin 12, Fe sat 7% s/p IV iron here by Dr. Oswald ?cause of Fe deficiency?-consider outpt GI evaluation -check Hemoccult stool here Dispo- PT, OT evals appreciated - cleared for home
[2017-06-12] MEDS: LEVOTHYROXINE 175 MCG TAB PO SCH (06:06)
[2017-06-12] MEDS: INSULIN ASPART 100 UNITS/ML 3 ML PEN SC SCH ×5 (08:00→20:31)
[2017-06-12 08:20] LABS: BASO % 0.2 %; BASO ABS # 0.01 K/uL (0-0.2); EOS % 4.1 %; EOS ABS # 0.25 K/uL (0-0.5); HEMATOCRIT 29.5 % (37-47); IG# 0.02 K/uL (0.00-0.02); LYMPH % 11.8 %; LYMPH ABS # 0.71 K/uL (1.2-3.4); MEAN CELL VOLUME 78.9 fL (80-100); MEAN CORPUSCULAR HEMOGLOBIN 24.1 pg (25-34); MEAN CORPUSCULAR HGB CONC 30.5 g/dl (32-36); MEAN PLATELET VOLUME 9.6 fL (7.4-10.4); MONO % 17.2 %; MONO ABS # 1.04 K/uL (0.11-0.59); NEUT % 66.4 %; NEUT ABS # 4.01 K/uL (1.4-6.5); PLATELET COUNT 189 K/uL (130-400); RED CELL DISTRIBUTION WIDTH CV 18.8 % (11.5-14.5); RED CELL DISTRIBUTION WIDTH SD 52.8 fL (36.4-46.3); WHITE BLOOD COUNT 6.04 K/uL (4.8-10.8)
[2017-06-12] MEDS: CHOLECALCIFEROL 1000 INTER.UNIT TAB PO SCH ×3 (08:29→20:26)
[2017-06-12] MEDS: MONTELUKAST SOD 10 MG TAB PO SCH (08:29)
[2017-06-12] MEDS: SIMETHICONE 80 MG CHEW PO PRN (08:29)
[2017-06-12] MEDS: METOPROLOL SUCC 50MG EXT REL TAB PO SCH (08:29)
[2017-06-12 08:31] LABS: INR 2.5 (0.9-1.1)
[2017-06-12] MEDS: SPIRONOLACTONE 25 MG TAB PO SCH ×2 (08:31→15:33)
[2017-06-12] MEDS: PYRIDOXINE HCL 50 MG TAB PO SCH (08:31)
[2017-06-12] MEDS: FEXOFENADINE HCL 180 MG TAB PO SCH (08:32)
[2017-06-12] MEDS: CYANOCOBALAMIN 500 MCG TAB (VIT B-12) PO SCH (08:32)
[2017-06-12] MEDS: BUMETANIDE 1 MG TAB PO SCH ×2 (08:32→15:31)
[2017-06-12] MEDS: GEMFIBROZIL 600 MG TAB PO SCH ×2 (08:34→20:26)
[2017-06-12] MEDS: ISOSORBIDE MONONITRATE 30 MG TABCR PO SCH (08:34)
[2017-06-12] MEDS: IPRATROPIUM BROMIDE/ALBUTEROL respimat INH INH SCH ×4 (08:35→20:21)
[2017-06-12] MEDS: LACTOBACILLUS ACIDOPHILUS (FLORANEX) TAB PO SCH ×3 (08:35→15:34)
[2017-06-12] MEDS: INSULIN GLARGINE SOLOSTAR 100 UNITS/ML 3 ML PEN SQ SCH ×2 (08:39→20:30)
[2017-06-12 08:55] LABS: CREATININE 2.12 mg/dl (0.60-1.20); POTASSIUM 4.2 mmol/L (3.5-5.1)
[2017-06-12] MEDS: IRON SUCROSE INJ 200 MG in SODIUM CHLORIDE 0.9% 100ML 100 ML IV SCH (09:10)
--- NOTE | 2017-06-12 09:38 | CARDIOLOGY PROGRESS NOTE ---
DATE: 06/12/2017 SUBJECTIVE: Mrs. Morales is resting comfortably in bed without complaints of chest pain, dyspnea or palpitations. Slept poorly last evening. OBJECTIVE: VITAL SIGNS: Blood pressure is 132/69 with an irregular pulse of 74. Respiratory rate is 18. The patient is afebrile at 36.5 degrees Celsius. Saturation is 97% on room air. Weight is 79.9 kg, down 2.0 kg since yesterday. NECK: Supple with full carotid upstrokes. There are no carotid bruits. Jugular venous pressure is elevated to the angle of the jaw with a prominent V-wave noted. CARDIOVASCULAR: Reveals an irregular rhythm with crisp mechanical valve sounds. LUNGS: Clear without rales, rhonchi or wheezes. ABDOMEN: Protuberant. EXTREMITIES: Reveal intact radial artery pulse bilaterally. 2+ pretibial edema is noted bilaterally. DATA: CBC notes hemoglobin of 9.0, hematocrit 29.5, white count 6.0, platelet count 89,000. Electrolytes note sodium of 136, potassium 4.2, chloride 104, bicarbonate 26, BUN 69, creatinine 2.1, glucose 92. INR is 2.5. 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 IMPRESSION AND PLAN: 1. Hypervolemia -- secondary to right-sided congestive heart failure. Continues to diurese on oral Bumex. 2. Cor pulmonale -- with right ventricular dilatation and dysfunction. Continue diuresis as above. 3. Pulmonary hypertension -- severe on echocardiogram. 4. Dowd-Lee mitral valve replacement -- with a mean gradient of 8 which is acceptable for this prosthesis. 5. Moderate to severe tricuspid regurgitation -- secondary to severe pulmonary hypertension. 6. Permanent atrial fibrillation. 7. VVI pacemaker -- better longevity estimated 6 months. To continue close followup. 8. Acute on chronic renal failure. 9. Recurrent right-sided pleural effusion -- PleurX catheter management per Dr. Cueva.
--- NOTE | 2017-06-12 10:38 | Nephrology Progress Note ---
Nephrology Progress Note Date of Service Jun 12, 2017. Chief Complaint Follow-up for acute kidney injury and volume overload with history of chronic kidney disease. Alicia Rojas was seen and examined in her room this morning. She has been overall feeling better. Diuresing well with significant net negative more than L overnight after switching to oral Bumex yesterday, more than 13 L since admission. Electrolyte remain acceptable renal function relatively stable. Review of Systems A complete review of systems was performed. Pertinent positives are noted above. All other systems are negative. Vital Signs Last 8 Hrs Date Time Temp Pulse Resp B/P (MAP) Pulse Ox O2 Delivery O2 Flow Rate FiO2 06/12/17 04:04 36.7 62 19 98/42 (60) 94 Room Air 06/12/17 04:00 Room Air 06/12/17 00:00 Room Air Last Recorded Weight Weight (Kilograms): 79.900 Physical Exam GENERAL: Elderly female, AAA x 3, pleasant, healthy-appearing, not in any distress. NECK: Supple, no JVD. RESPIRATORY: Breathing comfortably, right-sided PleurX catheter, clear on auscultation CARDIOVASCULAR: S1, S2 normal, rate rhythm regular. EXTREMITY: 1-2 + bilateral lower extremity edema NEURO: speech fluent. PSYCHIATRY: Normal mood and judgment Family History Diabetes mellitus Heart disease Hypertension Social History Smoking Status: Never smoker Smokeless Tobacco Use: No Alcohol Use: none Drug Use: none Marital Status: Housing Status: lives with family Occupation: retired Laboratory Results Past 24 Hours Test 06/11/17 11:34 06/11/17 16:10 06/11/17 20:26 06/12/17 04:44 Bedside Glucose 85 mg/dl (70-90) 120 mg/dl (70-90) 106 mg/dl (70-90) Test 06/12/17 06:26 Bedside Glucose 95 mg/dl (70-90) Allergies Coded Allergies: Penicillins (Verified Allergy, Severe, anaphylaxis 30yrs ago, also broke out with sores, 01/30/17) NOTE: Timentin 05/2003 tolerated without problem Diltiazem (Verified Allergy, Unknown, unknown, 01/30/17) Levofloxacin (Verified Allergy, Unknown, UNKNOWN, 01/30/17) Moxifloxacin (Verified Allergy, Unknown, UNKNOWN, 01/30/17) Aspirin (Verified Adverse Reaction, Intermediate, increased bleeding (on warfarin), 01/30/17) Doxycycline (Verified Adverse Reaction, Intermediate, GI SYMPTOMS, ) Atorvastatin (Verified Adverse Reaction, Unknown, & Crestor = muscle aches /pains, 01/30/17) NSAIDs (Verified Adverse Reaction, Unknown, AVOID PER DR. HICKS - [id number] , 01/30/17) Nortriptyline (Verified Adverse Reaction, Unknown, choking on food, ) Quinidine (Verified Adverse Reaction, Unknown, flu-like symptoms, 01/30/17 ) Sulfamethoxazole w/Trimethoprim (Verified Adverse Reaction, Unknown, CONFUSION, 01/30/17) Medications Current Inpatient Medications Medications (Trade) Dose Ordered Sig/Albin Route Start Time Stop Time Status Last Admin Dose Admin Acetaminophen (Tylenol Tab) 650 mg Q4H PRN PO 06/06/17 02:45 07/06/17 02:44 06/07/17 23:33 650 MG Al Hydrox/Mg Hydrox/Simethicone (Maalox Max Susp) 15 ml Q4H PRN PO 06/06/17 02:45 07/06/17 02:44 Magnesium Hydroxide (Milk Of Magnesia Susp) 30 ml Q12H PRN PO 06/06/17 02:45 07/06/17 02:44 Polyethylene (Miralax Powder Packet) 17 gm DAILY PRN PO 06/06/17 02:45 07/06/17 02:44 Cyanocobalamin (Vitamin B-12 Tab) 1,000 mcg QAM PO 06/06/17 09:00 07/06/17 08:59 06/11/17 09:12 1,000 MCG Diazepam (Valium Tab) 5 mg HS PO 06/06/17 21:00 07/06/17 20:59 06/11/17 22:00 5 MG Digoxin (Lanoxin Tab) 0.125 mg DAILY@1600 PO 06/06/17 16:00 07/06/17 15:59 06/11/17 16:36 0.125 MG EZETIMIBE (Zetia Tab) 10 mg HS PO 06/06/17 21:00 07/06/17 20:59 06/11/17 21:00 10 MG Fexofenadine HCl (Vickie Tab) 180 mg QAM PO 06/06/17 09:00 07/06/17 08:59 06/11/17 09:11 180 MG Gemfibrozil (Lopid Tab) 600 mg BID PO 06/06/17 21:00 07/06/17 20:59 06/11/17 21:00 600 MG Hydralazine HCl (Apresoline Tab) 25 mg BID PO 06/06/17 21:00 07/06/17 20:59 06/11/17 21:00 25 MG Insulin Glargine (Lantus Solostar Pen) 20 units BID SQ 06/06/17 09:00 07/06/17 08:59 06/11/17 09:22 20 UNITS Isosorbide Mononitrate (Imdur Ext Rel Tab) 30 mg QAM PO 06/06/17 09:00 07/06/17 08:59 06/11/17 09:24 30 MG Levothyroxine Sodium (Synthroid Tab) 175 mcg DAILYBB PO 06/06/17 06:00 07/06/17 05:59 06/12/17 06:06 175 MCG Metoprolol Succinate (Toprol Xl Tab) 100 mg DAILY PO 06/06/17 09:00 07/06/17 08:59 06/11/17 09:11 100 MG Montelukast Sodium (Singulair Tab) 10 mg QAM PO 06/06/17 09:00 07/06/17 08:59 06/11/17 09:31 10 MG Pyridoxine HCl (Vitamin B-6 Tab) 100 mg QAM PO 06/06/17 09:00 07/06/17 08:59 06/11/17 09:11 100 MG Warfarin Sodium (Coumadin Tab) 3 mg DAILY@1600 PO 06/06/17 16:00 07/06/17 15:59 Future hold 06/11/17 16:34 3 MG Cholecalciferol (Vitamin D Tab) 1,000 inter.unit TID PO 06/06/17 14:00 07/06/17 13:59 06/11/17 21:00 1,000 INTER.UNIT Spironolactone (Aldactone Tab) 50 mg BID17 PO 06/06/17 17:00 07/06/17 16:59 Future hold 06/11/17 18:00 50 MG Ondansetron HCl (Zofran Odt) 8 mg Q6H PRN PO 06/06/17 02:45 07/06/17 02:44 Insulin Aspart (novoLOG ASPART) SLIDING SCALE If C... ACHS SC 06/06/17 07:00 07/06/17 06:59 06/11/17 12:53 3 UNITS Glucose (Glucose 40% Gel) 15-30 GRAMS 15 GRAMS... UD PRN PO 06/06/17 02:45 07/06/17 02:44 Glucose (Glucose Chew Tab) 4-8 Tablets 4 Tabl... UD PRN PO 06/06/17 02:45 07/06/17 02:44 Dextrose (Dextrose 50% 50ML Syringe) 25-50ML OF 50% DW IV FOR... UD PRN IV 06/06/17 02:45 07/06/17 02:44 Glucagon (Glucagon Inj) 1 mg UD PRN SQ 06/06/17 02:45 07/06/17 02:44 Lactulose (Chronulac Syrup) 15 gm QAM PO 06/07/17 09:00 07/07/17 08:59 Future Hold 06/08/17 07:52 15 GM Morphine Sulfate (MoRPHine SULFATE INJ) 2 mg Q2HWA PRN IV 06/08/17 00:45 06/22/17 00:44 06/10/17 00:26 2 MG Albuterol/ Ipratropium (Combivent Respimat Inh) 1 puffs Q4HWA INH 06/08/17 12:00 07/08/17 11:59 06/11/17 20:00 1 PUFFS Lactobacillus Acidophilus (Floranex Tab) 4 tab TIDM PO 06/08/17 17:15 07/08/17 17:14 06/11/17 18:00 4 TAB Simethicone (Mylicon Chew Tab) 80 mg Q6H PRN PO 06/08/17 17:15 07/08/17 17:14 06/11/17 09:13 80 MG Iron Sucrose 200 mg/Sodium Chloride 110 ml @ 420 mls/hr Q2D@0900 IV 06/10/17 09:00 06/18/17 09:16 06/10/17 09:31 420 MLS/HR Bumetanide (Bumex Tab) 2 mg BID17 PO 06/11/17 09:30 07/11/17 09:29 06/11/17 18:00 2 MG Impression (1) Acute kidney injury (2) CKD (chronic kidney disease) (3) Acute on chronic diastolic CHF (congestive heart failure) (4) Anemia 77-year-old female with stage 3 chronic kidney disease secondary to cardiorenal syndrome type 2, chronic congestive heart failure with diastolic dysfunction and pulmonary hypertension, cirrhosis of liver with hepatic congestion, admitted to the hospital with acute on chronic congestive heart failure, volume overload with significant lower extremity edema. Baseline creatinine has been around 2, creatinine slightly peaked to 2.8 which now improved to baseline, electrolyte acceptable. She is responding well on the current dose of diuretics and remaining net negative around 2 L per day. Blood pressure stable. Recommendations - Continue on Bumex 2 mg p.o. b.i.d. and spironolactone 50 b.i.d. --considering significant diuresis will need close monitoring of electrolyte, at least once a week, suggest renal panel, vik raya early next week --patient should have follow-up with Dr. Wong, [facility] in next 1-2 weeks for further adjustment of diuretics dose depending on electrolyte and renal function as she is at risk for worsening renal function electrolyte abnormality --okay to be discharged Will follow
[2017-06-12] MEDS: WARFARIN SOD 3 MG TAB PO SCH (15:32)
[2017-06-12] MEDS: DIGOXIN 0.125 MG TAB PO SCH (15:33)
--- NOTE | 2017-06-12 19:01 | Hospitalist Progress Note ---
Hospitalist Progress Note Date of Service Jun 12, 2017. Subjective Pt evaluation today including: conversation w/ patient Feeling well, walking the halls without SOB. Drained 600 mL fro her PleurX today. is now down -15L of diuresis this hospitalization. Denies any other issues. Tele with paced rhythm 60s-80s All Other Systems: Reviewed and Negative Objective Vital Signs Date Time Temp Pulse Resp B/P (MAP) Pulse Ox O2 Delivery O2 Flow Rate FiO2 06/12/17 15:55 96 Room Air 2.0 06/12/17 15:33 76 06/12/17 15:28 37.1 62 20 114/50 (71) 95 Room Air 06/12/17 12:00 97 Room Air 2.0 06/12/17 12:00 36.5 76 18 127/53 (77) 94 06/12/17 12:00 97 Room Air 2.0 06/12/17 08:00 97 Room Air 2.0 06/12/17 07:34 36.5 74 18 132/69 (90) 97 06/12/17 04:04 36.7 62 19 98/42 (60) 94 Room Air 06/12/17 04:00 Room Air 06/12/17 00:00 Room Air 06/11/17 23:28 36.8 71 18 107/52 (70) 94 Room Air Physical Exam General Appearance: WD/WN, no apparent distress Eyes: sclerae normal ENT: hearing grossly normal Neck: trachea midline Respiratory/Chest: no respiratory distress, no accessory muscle use, + decreased breath sounds (at bases bilat) Cardiovascular: regular rate, rhythm, + pertinent finding (1-2+ pitting edema to thighs bilat) Abdomen: normal bowel sounds, non tender, soft Extremities: no calf tenderness Neurologic/Psychiatric: alert, normal mood/affect, oriented x 3 Skin: normal color, warm/dry, no rash Laboratory Results Last 24 Hours Test 06/11/17 20:26 06/12/17 06:26 06/12/17 07:55 06/12/17 11:15 Bedside Glucose 106 mg/dl 95 mg/dl 99 mg/dl White Blood Count 6.04 K/uL Red Blood Count 3.74 M/uL Hemoglobin 9.0 g/dL Hematocrit 29.5 % Mean Corpuscular Volume 78.9 fL Mean Corpuscular Hemoglobin 24.1 pg Mean Corpuscular Hemoglobin Concent 30.5 g/dl Platelet Count 189 K/uL Mean Platelet Volume 9.6 fL Neutrophils (%) (Auto) 66.4 % Lymphocytes (%) (Auto) 11.8 % Monocytes (%) (Auto) 17.2 % Eosinophils (%) (Auto) 4.1 % Basophils (%) (Auto) 0.2 % Neutrophils # (Auto) 4.01 K/uL Lymphocytes # (Auto) 0.71 K/uL Monocytes # (Auto) 1.04 K/uL Eosinophils # (Auto) 0.25 K/uL Basophils # (Auto) 0.01 K/uL RDW Standard Deviation 52.8 fL RDW Coefficient of Variation 18.8 % Immature Granulocyte % (Auto) 0.3 % Immature Granulocyte # (Auto) 0.02 K/uL Prothrombin Time 25.8 SECONDS Prothromb Time International Ratio 2.5 Sodium Level 136 mmol/L Potassium Level 4.2 mmol/L Chloride Level 104 mmol/L Carbon Dioxide Level 26 mmol/L Anion Gap 6.0 mmol/L Blood Urea Nitrogen 69 mg/dl Creatinine 2.12 mg/dl Est Creatinine Clear Calc Drug Dose 23.9 ml/min Estimated GFR () 25.7 Estimated GFR (Non- 22.2 BUN/Creatinine Ratio 32.5 Random Glucose 92 mg/dl Calcium Level 9.0 mg/dl Test 06/12/17 16:44 Bedside Glucose 101 mg/dl Assessment and Plan The patient is a 77-year-old female who presents with worsening lower extremity edema causing pain in her legs, and shortness of breath not responsive to increasing outpatient dosages of Lasix. Has had 25 lb weight gain in the last month. She has a Pleurx catheter placed by Dr. Cueva on 05/05/17, that she reports is drained daily by a visiting nurse. Acute/chronic diastolic CHF with right-sided heart failure in the setting of severe pulmonary HTN - continues to improve with stable renal function today. has diuresed 15 L of fluid so far Received bumex IV BID and aldactone BID. Now changed to Bumex 2mg po bid Her severe pulmonary HTN is likely the culprit in her right heart disease and ongoing decompensation. There has been some discussion about considering a right-heart cath to eval her PA pressures and perform a vasodilator study-this is no longer being discussed by Cardiology. 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 CT abd/pelvis without significant pathology. Lipase, LFTs, lactate all wnl. Suspect it was gaseous distension from lactulose causing pain. Severe pulmonary HTN - due to mitral valve disease? idiopathic? Other? Has h/ o COPD but doubt it is severe enough to cause her elevated PA pressure. No h/o PE. Right-sided pleurX catheter for reaccumulating transudative pleural effusion - drain daily. Managed in outpatient setting by Dr. Cueva. CKD stage 4 - Cr acceptable today but BUN trending upward as above. - nephrology following-appreciate consultation -recommends close monitoring of electrolytes, at least once a week, with renal panel, phos mag early next week --patient should have follow-up with Dr. Wong, [facility] in next 1-2 weeks for further adjustment of diuretics dose depending on electrolyte and renal function as she is at risk for worsening renal function electrolyte abnormality Cirrhosis - imaging studies dating back to 2013 show cirrhotic changes. This could be from chronic passive congestion from CHF or could be due to DAIGLE from previous fatty liver. Mild elevation in ammonia s/p 2 doses of lactulose. No evidence of encephalopathy at this time, repeat NH3 level is 35.9 and is moving her bowels regularly Permanent a. fib with pacemaker in place - nearing end of battery life within 6 months -cont beta jose roberto Pacemaker interrogation shows good pacer function. Cardiology consult appreciated. Will need battery exchange later this year Daily INR-today again therapeutic at 2.5 with goal 2.5-3.5 with ball and cage mechanical MV -increase warfarin back to her usual home regimen of 4mg on 6days/week, 2mg on Sun--> give an extra 1 mg now for total of 4 mg today hypothyroidism - TSH fall 2016 was wnl. Cont synthroid same dose. T2DM - controlled. COPD - not active at this time. mechanical mitral valve - on chronic coumadin. See discussion above. Dr. Lunsford feels the valve function is acceptable at this time. HTN - controlled at this time. hyperlipidemia - continue outpatient meds. iron deficiency anemia - likely causing her night-time cramps. Ferritin 12, Fe sat 7% s/p IV iron here by Dr. Oswald-will get another dose in the AM and then can get [facility] ?cause of Fe deficiency?-consider outpt GI evaluation -check Hemoccult stool here-still pending Dispo- PT, OT carly appreciated - cleared for home Will dc to home in the AM
[2017-06-12] MEDS ORDERED: WARFARIN SOD 1 MG TAB PO ONE (19:30)
[2017-06-12] MEDS: EZETIMIBE 10MG TAB PO SCH (20:26)
[2017-06-12] MEDS: DIAZEPAM 5MG TAB PO SCH (20:30)
[2017-06-13] VITALS (8 sets, daily range): BP systolic 102–171; BP diastolic 47–69; PULSE 64–84; TEMP 36.6–36.8; O2SAT 93–98
[2017-06-13] MEDS: ACETAMINOPHEN 325 MG TAB PO PRN (01:11)
[2017-06-13] MEDS: LEVOTHYROXINE 175 MCG TAB PO SCH (06:25)
[2017-06-13 06:41] LABS: INR 2.7 (0.9-1.1)
[2017-06-13 07:08] LABS: CALCIUM 8.8 mg/dl (8.5-10.1); CREATININE 2.07 mg/dl (0.60-1.20); POTASSIUM 4.1 mmol/L (3.5-5.1)
[2017-06-13 07:09] LABS: PHOSPHORUS 4.2 mg/dl (2.5-4.9)
[2017-06-13] MEDS: INSULIN ASPART 100 UNITS/ML 3 ML PEN SC SCH (08:16)
[2017-06-13] MEDS: INSULIN GLARGINE SOLOSTAR 100 UNITS/ML 3 ML PEN SQ SCH (08:17)
[2017-06-13] MEDS: IPRATROPIUM BROMIDE/ALBUTEROL respimat INH INH SCH (08:19)
[2017-06-13] MEDS: LACTOBACILLUS ACIDOPHILUS (FLORANEX) TAB PO SCH (08:19)
[2017-06-13] MEDS: SPIRONOLACTONE 25 MG TAB PO SCH (08:20)
[2017-06-13] MEDS: FEXOFENADINE HCL 180 MG TAB PO SCH (08:20)
[2017-06-13] MEDS: ISOSORBIDE MONONITRATE 30 MG TABCR PO SCH (08:21)
[2017-06-13] MEDS: GEMFIBROZIL 600 MG TAB PO SCH (08:21)
[2017-06-13] MEDS: BUMETANIDE 1 MG TAB PO SCH (08:21)
[2017-06-13] MEDS: MONTELUKAST SOD 10 MG TAB PO SCH (08:22)
[2017-06-13] MEDS: CYANOCOBALAMIN 500 MCG TAB (VIT B-12) PO SCH (08:22)
[2017-06-13] MEDS: METOPROLOL SUCC 50MG EXT REL TAB PO SCH (08:22)
[2017-06-13] MEDS: CHOLECALCIFEROL 1000 INTER.UNIT TAB PO SCH (08:23)
[2017-06-13] MEDS: PYRIDOXINE HCL 50 MG TAB PO SCH (08:23)
--- NOTE | 2017-06-13 09:46 | CARDIOLOGY PROGRESS NOTE ---
DATE: 06/13/2017 SUBJECTIVE: Mrs. Morales is resting comfortably at the bedside without complaints of chest pain or dyspnea. She has been ambulatory without difficulty. OBJECTIVE: VITAL SIGNS: Blood pressure 130/70 with an irregular pulse of 66. Respiratory rate is 18. The patient is afebrile at 36.6 degrees Celsius. Saturations 96% on room air. NECK: Supple with full carotid upstrokes. There are no carotid bruits. Jugular venous pressure is elevated to the angle of the jaw at 90 degrees. A prominent V wave is noted. LUNGS: Clear without rales, rhonchi, or wheezes. ABDOMEN: Protuberant. EXTREMITIES: Reveal intact radial artery pulses bilaterally. 1+ pretibial edema is noted. DATA: Electrolytes note a sodium of 137, potassium 4.1, chloride 106, bicarbonate 23, BUN 66, creatinine 2.07, glucose 78. INR is 2.7. 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 IMPRESSION AND PLAN: 1. Right-sided congestive heart failure -- she has diuresed well and is now on an oral regimen. Stable for hospital discharge. 2. Cor pulmonale -- with right ventricular dilatation and dysfunction. 3. Severe pulmonary hypertension. 4. Dowd-Lee mitral valve replacement -- with an acceptable mean gradient of 8 mmHg. 5. Qdhoqopa-cu-argjve tricuspid regurgitation -- secondary to severe pulmonary hypertension. 6. Permanent atrial fibrillation. 7. VVI pacemaker -- battery longevity estimated at 6 months. We will follow closely as an outpatient. 8. Cyzrw-no-xwcvlts renal failure. 9. Recurrent right-sided pleural effusion -- PleurX catheter, management per Dr. Cueva. [facility]
[2017-06-13] MEDS ORDERED: SPIR50TA3 PO (10:33)
[2017-06-13] MEDS ORDERED: LCTS240 PO (10:33)
[2017-06-13] MEDS ORDERED: BMX1 PO (10:33)
--- NOTE | 2017-06-13 10:36 | Discharge Instructions ---
Discharge Instructions Date of Service Jun 13, 2017. Admission Reason for Admission: Acute On Chronic Diastolic Chf, Anasarca Discharge Discharge Diagnosis / Problem: Acute on chronic CHF Discharge Goals Goal(s): Improve disease control, Diagnostic testing, Therapeutic intervention Activity Recommendations Activity Limitations: as noted below Exercise/Sports Limitations: gradually increase as tolerated Shower/Bathe: no limitations . Instructions / Follow-Up Instructions / Follow-Up You were admitted with a CHF exacerbation and were treated with diuretics-you lost 16 L liters of fluid while you were here and lost about 25-30 lbs. Please continue the new diuretic regimen with Bumex 2mg twice daily, and your aldactone was increased to 50mg twice daily. The lactulose is to keep your bowels moving and to keep your ammonia levels low (were elevated when you came in). Please follow up with Nephrology, Cardiology, and your PCP within 1-2 weeks. Call your Primary Care doctor if any of the following symptoms or problems start or get worse: * Shortness of breath or difficulty breathing * Wake up at night short of breath * Chest pain * Cough * Swelling of your hands, feet, or legs * More fatigued or tired with your normal activity * Palpitations - sudden fast heart beats WEIGHT * Weigh yourself every morning after using the bathroom. * Use the same scale. * Wear the same amount of clothing. * Write your weight down on a chart. * Call your Primary Care doctor if you gain more than 2-3 pounds in 1-2 days. MEDICATIONS * Use this discharge instruction sheet for medication instructions. * Take your medications at the time your doctor ordered. * Do not skip a dose of your medicines. * If you miss a dose of medicine, take it as soon as possible, but DO NOT DOUBLE A DOSE. * Read your medicine information when you get home. * Know all of the side effects of your medicine. If in doubt, ask your pharmacist * Call your Primary Care doctor's office if you have any side effects. * Be sure all of your doctors know what medicine and herbs you take (including cold, flu, and herbal medicine). Take the following with you to your follow-up doctor appointments: * Weight Chart * Medication List * List of questions Do not drink excessive alcohol, beer or wine. Current Hospital Diet Patient's current hospital diet: Diabetes Type 2 Diet, Low Sodium Diet (2gm Na) Discharge Diet Recommended Diet: Low Sodium Diet (2gm Na), Diabetes Type 2 Diet Procedures Procedures Performed: CT abdomen/pelvis Abdomen ultrasound Chest xray Echocardiogram Pending Studies Studies pending at discharge: no Medical Emergencies . Who to Call and When: Call 911 or go to the Emergency Room if: * If at any time you feel your situation is an emergency * You have tightness or pain in your chest that does not go away with rest or Nitroglycerin * You are very short of breath even with rest . Non-Emergent Contact Non-Emergency issues call your: Primary Care Provider, System Specialist, Before School Babysitter Call Non-Emergent contact if: you have any medication questions . . "Provider Documentation" section prepared by Karlee Underwood. .
--- NOTE | 2017-06-13 12:07 | Nephrology Progress Note ---
Nephrology Progress Note Date of Service Jun 13, 2017. Chief Complaint Follow-up for acute kidney injury and volume overload with history of chronic kidney disease. Alicia Lower was seen and examined this morning. She has been otherwise doing well. Renal function remained stable creatinine 2.0, electrolyte acceptable. Net negative more than 2 liters on oral Bumex. Review of Systems A complete review of systems was performed. Pertinent positives are noted above. All other systems are negative. Vital Signs Last 8 Hrs Date Time Temp Pulse Resp B/P (MAP) Pulse Ox O2 Delivery O2 Flow Rate FiO2 06/13/17 08:21 36.6 66 18 133/69 (90) 96 06/13/17 04:06 96 Room Air 2.0 06/13/17 03:48 36.8 66 18 105/54 (71) 93 Room Air Last Recorded Weight Weight (Kilograms): 77.700 Physical Exam GENERAL: Elderly female, AAA x 3, pleasant, healthy-appearing, not in any distress. NECK: Supple, no JVD. RESPIRATORY: Breathing comfortably, right-sided PleurX catheter, clear on auscultation CARDIOVASCULAR: S1, S2 normal, rate rhythm regular. EXTREMITY: 1-2 + bilateral lower extremity edema NEURO: speech fluent. PSYCHIATRY: Normal mood and judgment Family History Diabetes mellitus Heart disease Hypertension Social History Smoking Status: Never smoker Smokeless Tobacco Use: No Alcohol Use: none Drug Use: none Marital Status: Housing Status: lives with family Occupation: retired Laboratory Results Past 24 Hours 06/13/17 06:24 Test 06/12/17 11:15 06/12/17 16:44 06/12/17 20:17 06/13/17 06:24 Bedside Glucose 99 mg/dl (70-90) 101 mg/dl (70-90) 137 mg/dl (70-90) Prothrombin Time 28.0 SECONDS (9.0-12.0) Prothromb Time International Ratio 2.7 (0.9-1.1) Anion Gap 8.0 mmol/L (3-11) Est Creatinine Clear Calc Drug Dose 24.2 ml/min Estimated GFR () 26.5 Estimated GFR (Non- 22.8 BUN/Creatinine Ratio 31.8 (10-20) Calcium Level 8.8 mg/dl (8.5-10.1) Phosphorus Level 4.2 mg/dl (2.5-4.9) Magnesium Level 2.6 mg/dl (1.8-2.4) Test 06/13/17 06:40 Bedside Glucose 85 mg/dl (70-90) Allergies Coded Allergies: Penicillins (Verified Allergy, Severe, anaphylaxis 30yrs ago, also broke out with sores, 01/30/17) NOTE: Timentin 05/2003 tolerated without problem Diltiazem (Verified Allergy, Unknown, unknown, 01/30/17) Levofloxacin (Verified Allergy, Unknown, UNKNOWN, 01/30/17) Moxifloxacin (Verified Allergy, Unknown, UNKNOWN, 01/30/17) Aspirin (Verified Adverse Reaction, Intermediate, increased bleeding (on warfarin), 01/30/17) Doxycycline (Verified Adverse Reaction, Intermediate, GI SYMPTOMS, ) Atorvastatin (Verified Adverse Reaction, Unknown, & Crestor = muscle aches /pains, 01/30/17) NSAIDs (Verified Adverse Reaction, Unknown, AVOID PER DR. HICKS - [id number] , 01/30/17) Nortriptyline (Verified Adverse Reaction, Unknown, choking on food, ) Quinidine (Verified Adverse Reaction, Unknown, flu-like symptoms, 01/30/17 ) Sulfamethoxazole w/Trimethoprim (Verified Adverse Reaction, Unknown, CONFUSION, 01/30/17) Medications Current Inpatient Medications Medications (Trade) Dose Ordered Sig/Albin Route Start Time Stop Time Status Last Admin Dose Admin Acetaminophen (Tylenol Tab) 650 mg Q4H PRN PO 06/06/17 02:45 07/06/17 02:44 06/13/17 01:11 650 MG Al Hydrox/Mg Hydrox/Simethicone (Maalox Max Susp) 15 ml Q4H PRN PO 06/06/17 02:45 07/06/17 02:44 Magnesium Hydroxide (Milk Of Magnesia Susp) 30 ml Q12H PRN PO 06/06/17 02:45 07/06/17 02:44 Polyethylene (Miralax Powder Packet) 17 gm DAILY PRN PO 06/06/17 02:45 07/06/17 02:44 Cyanocobalamin (Vitamin B-12 Tab) 1,000 mcg QAM PO 06/06/17 09:00 07/06/17 08:59 06/13/17 08:22 1,000 MCG Diazepam (Valium Tab) 5 mg HS PO 06/06/17 21:00 07/06/17 20:59 06/12/17 20:30 5 MG Digoxin (Lanoxin Tab) 0.125 mg DAILY@1600 PO 06/06/17 16:00 07/06/17 15:59 06/12/17 15:33 0.125 MG EZETIMIBE (Zetia Tab) 10 mg HS PO 06/06/17 21:00 07/06/17 20:59 06/12/17 20:26 10 MG Fexofenadine HCl (Vickie Tab) 180 mg QAM PO 06/06/17 09:00 07/06/17 08:59 06/13/17 08:20 180 MG Gemfibrozil (Lopid Tab) 600 mg BID PO 06/06/17 21:00 07/06/17 20:59 06/13/17 08:21 600 MG Hydralazine HCl (Apresoline Tab) 25 mg BID PO 06/06/17 21:00 07/06/17 20:59 06/13/17 08:20 25 MG Insulin Glargine (Lantus Solostar Pen) 20 units BID SQ 06/06/17 09:00 07/06/17 08:59 06/13/17 08:17 20 UNITS Isosorbide Mononitrate (Imdur Ext Rel Tab) 30 mg QAM PO 06/06/17 09:00 07/06/17 08:59 06/13/17 08:21 30 MG Levothyroxine Sodium (Synthroid Tab) 175 mcg DAILYBB PO 06/06/17 06:00 07/06/17 05:59 06/13/17 06:25 175 MCG Metoprolol Succinate (Toprol Xl Tab) 100 mg DAILY PO 06/06/17 09:00 07/06/17 08:59 06/13/17 08:22 100 MG Montelukast Sodium (Singulair Tab) 10 mg QAM PO 06/06/17 09:00 07/06/17 08:59 06/13/17 08:22 10 MG Pyridoxine HCl (Vitamin B-6 Tab) 100 mg QAM PO 06/06/17 09:00 07/06/17 08:59 06/13/17 08:23 100 MG Warfarin Sodium (Coumadin Tab) 3 mg DAILY@1600 PO 06/06/17 16:00 07/06/17 15:59 Future hold 06/12/17 15:32 3 MG Cholecalciferol (Vitamin D Tab) 1,000 inter.unit TID PO 06/06/17 14:00 07/06/17 13:59 06/13/17 08:23 1,000 INTER.UNIT Spironolactone (Aldactone Tab) 50 mg BID17 PO 06/06/17 17:00 07/06/17 16:59 Future hold 06/13/17 08:20 50 MG Ondansetron HCl (Zofran Odt) 8 mg Q6H PRN PO 06/06/17 02:45 07/06/17 02:44 Insulin Aspart (novoLOG ASPART) SLIDING SCALE If C... ACHS SC 06/06/17 07:00 07/06/17 06:59 06/13/17 08:16 5 UNITS Glucose (Glucose 40% Gel) 15-30 GRAMS 15 GRAMS... UD PRN PO 06/06/17 02:45 07/06/17 02:44 Glucose (Glucose Chew Tab) 4-8 Tablets 4 Tabl... UD PRN PO 06/06/17 02:45 07/06/17 02:44 Dextrose (Dextrose 50% 50ML Syringe) 25-50ML OF 50% DW IV FOR... UD PRN IV 06/06/17 02:45 07/06/17 02:44 Glucagon (Glucagon Inj) 1 mg UD PRN SQ 06/06/17 02:45 07/06/17 02:44 Lactulose (Chronulac Syrup) 15 gm QAM PO 06/07/17 09:00 07/07/17 08:59 Future Hold 06/08/17 07:52 15 GM Morphine Sulfate (MoRPHine SULFATE INJ) 2 mg Q2HWA PRN IV 06/08/17 00:45 06/22/17 00:44 06/10/17 00:26 2 MG Albuterol/ Ipratropium (Combivent Respimat Inh) 1 puffs Q4HWA INH 06/08/17 12:00 07/08/17 11:59 06/13/17 08:19 1 PUFFS Lactobacillus Acidophilus (Floranex Tab) 4 tab TIDM PO 06/08/17 17:15 07/08/17 17:14 06/13/17 08:19 4 TAB Simethicone (Mylicon Chew Tab) 80 mg Q6H PRN PO 06/08/17 17:15 07/08/17 17:14 06/12/17 08:29 80 MG Iron Sucrose 200 mg/Sodium Chloride 110 ml @ 420 mls/hr Q2D@0900 IV 06/10/17 09:00 06/18/17 09:16 06/12/17 09:10 420 MLS/HR Bumetanide (Bumex Tab) 2 mg BID17 PO 06/11/17 09:30 07/11/17 09:29 06/13/17 08:21 2 MG Impression (1) Acute kidney injury (2) CKD (chronic kidney disease) (3) Acute on chronic diastolic CHF (congestive heart failure) (4) Anemia 77-year-old female with stage 3 chronic kidney disease secondary to cardiorenal syndrome type 2, chronic congestive heart failure with diastolic dysfunction and pulmonary hypertension, cirrhosis of liver with hepatic congestion, admitted to the hospital with acute on chronic congestive heart failure, volume overload with significant lower extremity edema. Baseline creatinine has been around 2, creatinine slightly peaked to 2.8 which now improved to baseline, electrolyte acceptable. She is responding well on the current dose of diuretics and remaining net negative around 2 L per day. Blood pressure stable. Recommendations - Continue on Bumex 2 mg p.o. b.i.d. and spironolactone 50 b.i.d. --considering significant diuresis will need close monitoring of electrolyte, at least once a week, suggest renal panel, vik raya early next week --she is already scheduled to see Dr. Wong as an outpatient in mid June. Please schedule with Heart failure Clinic in next 1-2 weeks for further adjustment of diuretics dose depending on electrolyte and renal function as she is at risk for worsening renal function electrolyte abnormality --okay to be discharged, Will follow
--- NOTE | 2017-06-14 00:31 | Discharge Summary ---
Discharge Summary Date of Service Jun 13, 2017. Discharge Summary Admission Date: Jun 06, 2017 at 03:10 Discharge Date: Jun 13, 2017 Discharge Disposition: Home with services Principal Diagnosis: Acute on chronic diastolic CHF Problems/Secondary Diagnoses: Chronic pleural effusion with PleurX catheter in place Right-sided heart failure in the setting of severe pulmonary HTN Abdominal pain CKD stage 4 Cirrhosis Hyperammonemia Permanent a. fib with pacemaker in place assisted anticoagulant Hypothyroidism T2DM - controlled. COPD mechanical mitral valve HTN hyperlipidemia iron deficiency anemia Immunizations: Have You Had Influenza Vaccine: Yes Influenza Vaccine Date: Dec 23, 2010 History of Tetanus Vaccine?: utd History of Pneumococcal: Yes History of Hepatitis B Vaccine: No Procedures: CT abdomen/pelvis Abdomen ultrasound Chest xray Echocardiogram Consultations: Cardiology Nephrology Medication Reconciliation New Medications: Bumetanide (Bumetanide) 1 Mg Tab 2 MG PO BID17 for 30 Days, #120 TAB Lactulose (Chronulac) 10 Gm/15 Ml Syrp 15 GM PO QAM for 30 Days, #450 ML Changed Medications: Spironolactone (Aldactone) 50 Mg Tab 50 MG PO BID for 30 Days, #60 TAB (Changed from: DAILY) Continued Medications: Cholecalciferol (Vitamin D3) 1,000 Unit Cap 1000 INTER.UNIT PO TID Cyanocobalamin (Vitamin B-12) 1,000 Mcg Tab 1000 MCG PO QAM Diazepam (Valium) 5 Mg Tab 5 MG PO HS Diclofenac Sodium (Topical) (Diclofenac Sodium) 1 % Gel 1 APPLN TOP QID PRN for Pain-Affected Joints Digoxin (Digoxin) 0.125 Mg Tab 0.125 MG PO QAM Ezetimibe (Ezetimibe) 10 Mg Tab 10 MG PO HS Fexofenadine Hcl (Vickie) 180 Mg Tab 180 MG PO QAM, TAB Gemfibrozil (Gemfibrozil) 600 Mg Tab 600 MG PO BID TAKE THIS MEDICATION 30 MINUTES BEFORE BREAKFAST AND BEDTIME Hydralazine Hcl (Apresoline) 25 Mg Tab 25 MG PO BID Insulin Aspart (Novolog) 100 Units/Ml Inj 1 DOSE SC ACHS PRN for As Needed COVERAGE DIRECTED BY SLIDING SCALE Insulin Glargine (Lantus) 100 Unit/Ml Inj 20-60 UNITS SQ AMPM Ipratropium-Albuterol (Duoneb) 3 Ml Nebu 1 TREATMENT INH QID, INHA Isosorbide Mononitrate (Isosorbide Mononitrate ER) 30 Mg Tabcr 30 MG PO QAM Levalbuterol Tartrate (Levalbuterol Tartrate Hfa) 45 Mcg/Act Aer 1-2 PUFFS INH q4-6h PRN for as directed Levothyroxine Sodium (Synthroid) 175 Mcg Tab 175 MCG PO DAILY, TAB Metoprolol Succ (Toprol Xl) (Toprol-Xl ) 100 Mg Tabcr 100 MG PO DAILY, TAB Misc Natural Products (Osteo Bi-Flex Joint Shiel) 1 Tab Tab 1 TAB PO BID Montelukast Sod (Montelukast Sodium) 10 Mg Tab 10 MG PO QAM Oxycodone HCl (Oxycodone HCl) 5 Mg Tab 1-2 TABS PO Q4 PRN for Pain Pyridoxine (Vitamin B6) 100 Mg Tab 100 MG PO QAM Trospium Chloride (Trospium Chloride) 20 Mg Tab 20 MG PO DAILY Warfarin Sodium (Coumadin) 4 Mg Tab 4 MG PO [id number] Warfarin Sodium (Coumadin) 2 Mg Tab 2 MG PO WK take on Sundays Discontinued Medications: Furosemide (Lasix) 80 Mg Tab 80 MG PO BID/AM &NOON, TAB Discharge Exam Feeling much better, no SOB, is ambulating. Is anxious for discharge. Tele with paced rhythm and A-fib, rates 60s-80s Physical Exam General Appearance: WD/WN, no apparent distress Eyes: sclerae normal ENT: hearing grossly normal Neck: trachea midline Respiratory/Chest: no respiratory distress, no accessory muscle use, + decreased breath sounds (at bases bilat) Cardiovascular: regular rate, rhythm, + pertinent finding (1-2+ pitting edema to thighs bilat) Abdomen: normal bowel sounds, non tender, soft Extremities: no calf tenderness Neurologic/Psychiatric: alert, normal mood/affect, oriented x 3 Skin: normal color, warm/dry, no rash Review of Systems: Constitutional: No problem reported Eyes: No problem reported ENT: No problem reported Respiratory: No problem reported Cardiovascular: No problem reported Abdomen: No problem reported Musculoskeletal: No problem reported Genitourinary - Female: No problem reported Neurologic: No problem reported Psychiatric: No problem reported Endocrine: No problem reported Hematologic / Lymphatic: No problem reported Integumentary: No problem reported Hospital Course The patient is a 77-year-old female who presents with worsening lower extremity edema causing pain in her legs, and shortness of breath not responsive to increasing outpatient dosages of Lasix. Has had 25 lb weight gain in the last month. She has a Pleurx catheter placed by Dr. Cueva on 05/05/17, that she reports is drained daily by a visiting nurse. Acute/chronic diastolic CHF with right-sided heart failure in the setting of severe pulmonary HTN - continues to improve with stable renal function today. Has diuresed 17 L of fluid so far Received bumex IV BID and aldactone BID. Now changed to Bumex 2mg po bid and continues to diurese briskly Her severe pulmonary HTN is likely the culprit in her right heart disease and ongoing decompensation. There initially was discussion about considering a right-heart cath to eval her PA pressures and perform a vasodilator study-this is no longer being discussed by Cardiology. Appreciate Cardiology consultation -continue strict I/Os, daily weights, low Na+ diet, fluid restrict to 1500 ml/ day F/u with Cardiology as outpt in CHF clinic -dc to home on Bumex 2mg po bid nad aldactone 50mg po bid (increased dose from home) Abdominal pain - resolved. CT abd/pelvis without significant pathology. Lipase, LFTs, lactate all wnl. Suspect it was gaseous distension from lactulose causing pain. Severe pulmonary HTN - due to mitral valve disease? idiopathic? Other? Has h/ o COPD but doubt it is severe enough to cause her elevated PA pressure. No h/o PE. Right-sided pleurX catheter for reaccumulating transudative pleural effusion - drain daily. Managed in outpatient setting by Dr. Cueva. -has visiting RN coming to drain daily CKD stage 4 - Cr acceptable today and is actually improved from previous at 2.07 - nephrology following-appreciate consultation -recommends close monitoring of electrolytes, at least once a week, with renal panel, phos mag early next week-can be ordered by PCP or Nephrology --patient should have follow-up with Dr. Wong, Cardiology and Heart failure Clinic in next 1-2 weeks for further adjustment of diuretics dose depending on electrolyte and renal function as she is at risk for worsening renal function electrolyte abnormality Cirrhosis - imaging studies dating back to 2013 show cirrhotic changes. This could be from chronic passive congestion from CHF or could be due to DAIGLE from previous fatty liver. Mild elevation in ammonia s/p 2 doses of lactulose. No evidence of encephalopathy at this time, repeat NH3 level is 35.9 and is moving her bowels regularly Permanent a. fib with pacemaker in place - nearing end of battery life within 6 months -cont beta jose roberto Pacemaker interrogation shows good pacer function. Cardiology consult appreciated. Will need battery exchange later this year Daily INR-today again therapeutic at 2.7 with goal 2.5-3.5 with ball and cage mechanical MV -continue warfarin at her usual home regimen of 4mg on 6days/week, 2mg on Sun hypothyroidism - TSH fall 2016 was wnl. Cont synthroid same dose. T2DM - controlled. COPD - not active at this time. mechanical mitral valve - on chronic coumadin. See discussion above. Dr. Lunsford feels the valve function is acceptable at this time. HTN - controlled at this time. hyperlipidemia - continue outpatient meds. iron deficiency anemia - likely causing her night-time cramps. Ferritin 12, Fe sat 7% s/p IV iron here x 3 doses as ordered by Dr. Oswald-[facility] get [facility] ?cause of Fe deficiency?-consider outpt GI evaluation -check Hemoccult stool as an outpt-was never able to be collected here Stable for dc to home Total Time Spent: Greater than 30 minutes This includes examination of the patient, discharge planning, medication reconciliation, and communication with other providers. Discharge Instructions Please refer to the electronic Patient Visit Report (Discharge Instructions) for additional information. Follow-Up Cardiology, Nephrology, and PCP within 1-2 weeks Additional Copies To Bryant Wong M.D.; Arslan Lunsford M.D.; Phoenix Klein III, CRNP
== END 2017-06-13 11:29 | disposition home health service (06) | DRG 314 ==
LOC: EDBD 22:32 → C.EDB 22:34 → C.2T 06-06 03:10 → ENRESERV 06-06 03:44
PROVIDERS: ADMIT Hospitalist; ATTEND Family Medicine
DX: I27.29 Other secondary pulmonary hypertension (principal); I50.33 Acute on chronic diastolic (congestive) heart failure; N18.4 Chronic kidney disease, stage 4 (severe); I13.0 Hypertensive heart and chronic kidney disease with heart failure and stage 1 through stage 4 chronic kidney disease, or unspecified chronic kidney disease; N17.9 Acute kidney failure, unspecified; I36.1 Nonrheumatic tricuspid (valve) insufficiency; I27.81 Cor pulmonale (chronic); R79.1 Abnormal coagulation profile; R10.9 Unspecified abdominal pain; E87.5 Hyperkalemia; K74.60 Unspecified cirrhosis of liver; I48.2 Chronic atrial fibrillation; E11.22 Type 2 diabetes mellitus with diabetic chronic kidney disease; J44.9 Chronic obstructive pulmonary disease, unspecified; G47.00 Insomnia, unspecified; F41.9 Anxiety disorder, unspecified; E78.5 Hyperlipidemia, unspecified; E03.9 Hypothyroidism, unspecified; E53.8 Deficiency of other specified B group vitamins; G89.29 Other chronic pain; D50.9 Iron deficiency anemia, unspecified; Z96.89 Presence of other specified functional implants; Z95.0 Presence of cardiac pacemaker; Z95.2 Presence of prosthetic heart valve; Z87.891 Personal history of nicotine dependence; Z90.49 Acquired absence of other specified parts of digestive tract; Z90.710 Acquired absence of both cervix and uterus; Z79.01 Long term (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 of anticoagulants; Z79.4 Long term (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 of insulin; Z79.899 Other long term (current) drug therapy; Z88.0 Allergy status to penicillin; Z88.1 Allergy status to other antibiotic agents; Z88.2 Allergy status to sulfonamides; Z88.6 Allergy status to analgesic agent; Z88.8 Allergy status to other drugs, medicaments and biological substances; Z83.3 Family history of diabetes mellitus; Z82.49 Family history of ischemic heart disease and other diseases of the circulatory system

== ENCOUNTER → 2017-07-14 | Outpatient (CLI) | payer BC ==
[~2017-07-14] MED LIST changes: +BMX1 PO; -CEFU1TAB35 PO; +LCTS240 PO; -LSX40 PO
--- NOTE | 2017-07-14 12:55 | DIAGNOSTIC IMAGING REPORT ---
CHEST 2 VIEWS ROUTINE CLINICAL HISTORY: 77 years-old Female presenting with J90 Pleural effusion, [id number]. TECHNIQUE: PA and lateral views of the chest were obtained. COMPARISON: 06/05/2017. FINDINGS: Left subclavian pacer with single lead to the right ventricular apex. Median sternotomy wires and prosthetic aortic valve again noted. Atherosclerosis of aortic arch. Cardiac silhouette moderately enlarged. Main pulmonary artery remains moderately enlarged. A large bore right pleural drain remains positioned at the right lung base. Mild prominence of pulmonary vasculature though decreased from prior. Right basilar opacity decreased from prior with improved aeration of the right lung. Persistent small right pleural effusion. No pneumothorax. Degenerative changes of the thoracic spine. Upper abdomen normal. IMPRESSION: 1. Cardiomegaly with decreased volume overload/congestive change. 2. Right pleural drain remains at the right lung base with a persistent small right pleural effusion. 3. Improved aeration of the right lung base. Electronically signed by: Adam Nagel M.D. 07/14/2017 12:54 PM Dictated Date/Time: 07/14/2017 12:53 PM
--- NOTE | 2017-07-14 13:04 | DIAGNOSTIC IMAGING REPORT ---
L-SPINE MIN 4 VIEWS ROUTINE CLINICAL HISTORY: 77 years-old Female presenting with J90 Pleural effusion, [id number]. TECHNIQUE: Frontal, bilateral oblique, lateral, coned in lateral views of the lumbar spine were obtained. COMPARISON: 07/07/[address] from 05/20/2014. FINDINGS: Cholecystectomy clips and additional right abdominal surgical clip noted. A right pleural drain projects at the paramediastinal right posterior costophrenic sulcus. No significant scoliosis. 6 mm of anterolisthesis of grade 1 L4 on L5. Significant deformity of the superior endplate of L3, which is new since prior CT. Interval vertebral disc height loss noted at L4-5. Osseous neural foraminal narrowing suggested at L4-5 and L5-S1. IMPRESSION: 1. Interval development of superior endplate deformity of L3 concerning for compression fracture deformity. This is new since 2014. Correlate with point tenderness. MR would better assess for the presence of bony edema to suggest an acute or subacute injury. 2. Unchanged anterolisthesis of L4 on L5 with osseous neural foraminal narrowing at L4-5 and L5-S1. Electronically signed by: Adam Nagel M.D. 07/14/2017 1:03 PM Dictated Date/Time: 07/14/2017 12:59 PM
--- NOTE | 2017-07-14 13:06 | DIAGNOSTIC IMAGING REPORT ---
THORACIC SPINE 3 VIEWS ROUTINE HISTORY: 77 years-old Female M54.9 acute back pain without reported trauma COMPARISON: Chest radiographs 05/26/2017 TECHNIQUE: 3 views of the thoracic spine FINDINGS: Cardiac silhouette is again enlarged. Prior median sternotomy with prosthetic cardiac valve. Catheter projects over the medial right lung base. Single lead left subclavian pacer is unchanged. Atherosclerosis of the aorta. There are 12 rib-bearing thoracic-type vertebral segments present. No acute fracture or subluxation. Mild to moderate multilevel endplate spurring with at least mild multilevel intervertebral disc space narrowing. Dystrophic calcification or remote fracture fragment is seen adjacent to the C7 spinous process. IMPRESSION: No acute fracture or subluxation. The above report was generated using voice recognition software. It may contain grammatical, syntax or spelling errors. Electronically signed by: Anand Hermosillo M.D. 07/14/2017 1:05 PM Dictated Date/Time: 07/14/2017 1:03 PM
[2017-07-14 13:52] LABS: ALBUMIN 3.9 gm/dl (3.4-5.0); BLOOD UREA NITROGEN 57 mg/dl (7-18); CALCIUM 9.4 mg/dl (8.5-10.1); CARBON DIOXIDE 25 mmol/L (21-32); CREATININE 2.43 mg/dl (0.60-1.20); GLUCOSE 89 mg/dl (70-99); PHOSPHORUS 3.4 mg/dl (2.5-4.9); POTASSIUM 4.4 mmol/L (3.5-5.1); SODIUM 137 mmol/L (136-145)
== END | disposition home or self-care (01) ==
LOC: C.RAD1850 10:42
PROVIDERS: ATTEND Nurse Practitioner Family
DX: I50.32 Chronic diastolic (congestive) heart failure (principal); J90 Pleural effusion, not elsewhere classified; M54.9 Dorsalgia, unspecified; I51.7 Cardiomegaly

== ENCOUNTER → 2017-07-18 | Outpatient (CLI) | payer BC ==
--- NOTE | 2017-07-18 12:55 | DIAGNOSTIC IMAGING REPORT ---
CT SCAN OF THE LUMBAR SPINE WITHOUT IV CONTRAST CLINICAL HISTORY: Low back pain. COMPARISON STUDY: CT scan of the lumbar spine dated 05/20/2014. Radiographs of the lumbar spine dated 07/14/2017. Abdominal CT dated 06/08/2017. TECHNIQUE: CT scan of the lumbar spine is performed from the lower thoracic spine to the sacrum. Images are reviewed in the axial, sagittal, and coronal planes. IV contrast was not administered for this examination. A dose lowering technique was utilized adhering to the principles of ALARA. CT DOSE: 696.30 mGy.cm FINDINGS: The skeletal structures are osteopenic. There is an acute to subacute superior endplate compression fracture of L3. This is unchanged from the 07/14/2017 radiographs but new from the 06/08/[address] scan. Minimal paravertebral edema is seen at this level. Tiny fragments are minimally retropulsed by up to 3 mm. Vertebral body height is otherwise maintained throughout the lumbar spine. There is 7 mm of anterolisthesis at L4-L5. Alignment is otherwise preserved. The transverse and spinous processes appear intact. There is no evidence of spondylolysis. No lytic or blastic lesion is seen. Tiny anterior osteophytes are seen throughout. Moderate facet arthropathy is seen in the lower lumbar region. There is moderate to advanced disc space narrowing at L4-L5. Only minimal disc space narrowing is seen at the remaining lumbar levels. There is no evidence of large disc herniation by CT. Posterior disc-osteophyte complexes are seen at all levels between L2-L3 and L5-S1. There is likely at least moderate acquired compromise of the central canal at L4-L5 secondary to the disc-osteophyte complex and hypertrophy of the ligamentum flavum. The visualized sacrum and bony pelvis appear intact. There is fatty atrophy of the paraspinous musculature. A trace right pleural effusion is identified with a pleural drain in place. There is moderate atherosclerotic calcification of the abdominal aorta. No retroperitoneal adenopathy is identified. IMPRESSION: 1. There is a mild acute to subacute compression fracture of L3. This is new from the 06/08/[address] scan and unchanged from the 07/14/2017 radiographs. There is mild paravertebral edema at this level as well as minimal retropulsion of tiny fragments. 2. No additional acute bony abnormality is seen throughout the lumbar spine. 3. Osteopenia and spondylotic change as above. Dictated: 07/18/2017 12:14 PM Transcribed: 07/18/2017 12:55 PM [email or web address] Electronically signed by: Ventura Kaplan M.D. 07/18/2017 12:56 PM Dictated Date/Time: 07/18/2017 12:14 PM
== END | disposition home or self-care (01) ==
LOC: C.CTS 11:56
PROVIDERS: ATTEND Nurse Practitioner Family
DX: R93.7 Abnormal findings on diagnostic imaging of other parts of musculoskeletal system (principal)

== ENCOUNTER → 2017-10-08 | Outpatient (CLI) | payer BC ==
[~2017-10-08] MED LIST changes: -BMX1 PO; +BUME2TAB3 PO; +ERTA1INJ IV; -IPRASOL4 INH; -ISOS-11 PO; +LACT10SO53 PO; -LCTS240 PO; -LEVA45AE INH; -OXYC-609 PO; -SPIR50TA3 PO; +SPIR50TA5 PO; -WARF2TAB PO; +WARF3TAB PO; -WARF4TAB PO
--- NOTE | 2017-10-08 15:56 | DIAGNOSTIC IMAGING REPORT ---
CHEST 2 VIEWS ROUTINE CLINICAL HISTORY: J90 Pleural effusion,RIGHT COMPARISON STUDY: 09/08/2017 FINDINGS: The heart remains enlarged. There are postsurgical changes of a midline sternotomy and valvular replacement. There is a left subclavian central venous pacemaker. There is a right basilar pleural drainage catheter unchanged in position. There is a small right pleural effusion. There is no lobar consolidation. There is slight elevation of the interstitium suggesting mild pulmonary vascular congestion/fluid overload.[ IMPRESSION: 1. Cardiomegaly and mild pulmonary vascular congestion/fluid overload 2. Persistent right hazy lower pleural catheter. Small right pleural effusion. Electronically signed by: Nikita Culp M.D. 10/08/2017 3:54 PM Dictated Date/Time: 10/08/2017 3:53 PM
== END | disposition home or self-care (01) ==
LOC: C.RAD1850 15:36
PROVIDERS: ATTEND Physician Assistant
DX: J90 Pleural effusion, not elsewhere classified (principal)

== ENCOUNTER → 2017-10-10 | Outpatient (CLI) | payer BC ==
[2017-10-10 15:30] LABS: ALBUMIN 3.2 gm/dl (3.4-5.0); BLOOD UREA NITROGEN 67 mg/dl (7-18); CALCIUM 8.7 mg/dl (8.5-10.1); CARBON DIOXIDE 22 mmol/L (21-32); CREATININE 2.21 mg/dl (0.60-1.20); GLUCOSE 126 mg/dl (70-99); PHOSPHORUS 3.3 mg/dl (2.5-4.9); POTASSIUM 4.2 mmol/L (3.5-5.1); SODIUM 137 mmol/L (136-145)
== END | disposition home or self-care (01) ==
LOC: C.LAB 12:31
PROVIDERS: ATTEND Nurse Practitioner Family
DX: E11.22 Type 2 diabetes mellitus with diabetic chronic kidney disease (principal); N18.3 Chronic kidney disease, stage 3 (moderate); D64.9 Anemia, unspecified

== ENCOUNTER 2017-10-15 01:30 | Inpatient (IN) | payer BC, OTHER ==
[2017-10-15] VITALS (8 sets, daily range): BP systolic 99–113; BP diastolic 43–54; PULSE 60–65; TEMP 36.9–38.6; O2SAT 95–99; Ht 157.5 cm; Wt 71.6 kg
[~2017-10-15] VITALS: Ht 157.5 cm; Wt 71.6 kg
[~2017-10-15 01:30] MED LIST changes: -ERTA1INJ IV; +WELCHOL PO
[2017-10-15] MEDS ORDERED: FENTANYL CITRATE INJ 50 MCG/1 ML 2 ML VIAL IV ONE (01:45)
--- NOTE | 2017-10-15 01:45 | EMERGENCY ROOM VISIT NOTE ---
History Report prepared by Dianne: Aydee Hdez Under the Supervision of: Dr. Anthony Gar M.D. First contact with patient: 01:33 Chief Complaint: SHORTNESS OF BREATH Stated Complaint: SHORT OF BREATH History of Present Illness The patient is a 77 year old female who presents to the Emergency Room via EMS with complaints of resolved shortness of breath that occurred about an hour prior to arrival. Upon arrival of EMS, the patient's sats were 88 on room air and she was given oxygen which brought her sats up to 100. She denies shortness of breath in the ED. The patient reports she has right calf pain where her cat bit her this morning. The patient has a history of CHF and breast cancer. She notes she still takes Coumadin daily. The patient complains of some abdominal pain but denies any fevers. She notes she recently had a blood transfusion. The patient states her tetanus shot is up to date. 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 A total of 10 systems reviewed and were otherwise negative. Past Medical & Surgical Medical Problems: (1) Acute kidney injury (2) Acute pancreatitis (3) Acute respiratory failure with hypoxia (4) Acute systolic congestive heart failure (5) Acute urinary tract infection (6) Asthma (7) Atrial fibrillation (8) Cardiac pacemaker procedure (9) CKD (chronic kidney disease) (10) Contrast dye induced nephropathy (11) Deep venous thrombosis (12) Diabetes mellitus (13) Hip pain (14) History of mitral valve replacement with mechanical valve (15) PERSONAL HX OF TIA,& CEREBRAL INFARCTION W/OUT RES DEFICITS (16) Pneumonia (17) Replacement of mitral valve with mechanical prosthesis (18) Sepsis Surgical Problems: (1) Cholecystectomy (2) Hysterectomy Family History Cancer Diabetes mellitus Heart disease Hypertension Lung disease Social History Smoking Status: Never Smoker Alcohol Use: none Drug Use: none Marital Status: Housing Status: lives with family Occupation Status: retired Current/Historical Medications Scheduled Bumetanide (Bumex), 4 MG PO QAM Bumetanide (Bumex), 2 MG PO QPM Cholecalciferol (Vitamin D3), 1,000 INTER.UNIT PO TID Cyanocobalamin (Vitamin B-12), 1,000 MCG PO QAM Diazepam (Valium), 5 MG PO HS Digoxin (Digoxin), 0.125 MG PO QAM Ezetimibe (Ezetimibe), 10 MG PO HS Fexofenadine Hcl (Vickie), 180 MG PO QAM Gemfibrozil (Gemfibrozil), 600 MG PO BID Hydralazine Hcl (Apresoline), 25 MG PO BID Insulin Glargine (Lantus), 20-60 UNITS SQ AMPM Lactulose (Chronulac), 15 GM PO QAM Levothyroxine Sodium (Synthroid), 175 MCG PO DAILY Metoprolol Succ (Toprol Xl) (Toprol-Xl ), 100 MG PO DAILY Misc Natural Products (Osteo Bi-Flex Joint Shiel), 1 TAB PO BID Montelukast Sod (Montelukast Sodium), 10 MG PO QAM Pyridoxine (Vitamin B6), 100 MG PO QAM Spironolactone (Aldactone), 50 MG PO BID Trospium Chloride (Trospium Chloride), 20 MG PO DAILY Warfarin Sodium (Coumadin), 3 MG PO DAILY Scheduled PRN Diclofenac Sodium (Topical) (Diclofenac Sodium), 1 APPLN TOP QID PRN for Pain- Affected Joints Insulin Aspart (Novolog), 1 DOSE SC ACHS PRN for As Needed Allergies Coded Allergies: Penicillins (Verified Allergy, Severe, anaphylaxis 30yrs ago, also broke out with sores, 10/15/17) NOTE: Timentin 05/2003 tolerated without problem Diltiazem (Verified Allergy, Unknown, unknown, 10/15/17) Levofloxacin (Verified Allergy, Unknown, UNKNOWN, 10/15/17) Moxifloxacin (Verified Allergy, Unknown, UNKNOWN, 10/15/17) Aspirin (Verified Adverse Reaction, Intermediate, increased bleeding (on warfarin), 10/15/17) Doxycycline (Verified Adverse Reaction, Intermediate, GI SYMPTOMS, 10/15/17) Atorvastatin (Verified Adverse Reaction, Unknown, & Crestor = muscle aches /pains, 10/15/17) NSAIDs (Verified Adverse Reaction, Unknown, AVOID PER DR. HICKS - [id number] , 10/15/17) Nortriptyline (Verified Adverse Reaction, Unknown, choking on food, 10/15/17 ) Quinidine (Verified Adverse Reaction, Unknown, flu-like symptoms, 10/15/17) Sulfamethoxazole w/Trimethoprim (Verified Adverse Reaction, Unknown, CONFUSION, 10/15/17) Physical Exam Vital Signs Date Time Temp Pulse Resp B/P (MAP) Pulse Ox O2 Delivery O2 Flow Rate FiO2 10/15/17 02:19 39.2 61 20 134/47 91 Room Air 10/15/17 02:00 91 Room Air 10/15/17 01:37 78 Physical Exam GENERAL: Patient is chronically unwell appearing, in moderate distress, uncomfortable appearing. Disheveled, stool on legs. EYES: No scleral icterus, unremarkable pupils. ENT: Mucous membranes moist, no nasal congestion. NECK: No masses appreciated, no meningismus, trachea is midline. RESPIRATORY: No dyspnea. Crackles throughout left lung murray, decreased breath sounds throughout right lung murray. No wheeze, no rhonchi. CARDIOVASCULAR: Regular rate and rhythm. Harsh systolic murmur. No rubs or gallops appreciated. GASTROINTESTINAL: Abdomen soft, nontender, no peritonitis. Bowel sounds positive. No masses appreciated. BACK: No midline tenderness, no CVA tenderness EXTREMITIES: Normal motion all extremities, no cyanosis. Pitting edema bilateral lower legs, swelling and erythema of posterior right leg involving most of calf and spreading above knee, small puncture wounds noted from cat bite. NEUROLOGIC: Alert and oriented, no acute motor or sensory deficits, no focal weakness, cranial nerves grossly intact. SKIN: No rash, no jaundice, no diaphoresis. Medical Decision & Procedures ER Provider Diagnostic Interpretation: Radiology results stated below per my interpretation: 4 VIEW TIB/FIB X-RAY: No fracture, no dislocation, raad [place] in distal tibia, moderate edema of leg , no evidence of foreign body appreciated. 1 VIEW CHEST X-RAY: Enlarged heart increased form previous chest x-ray, infiltrate vs atelectasis in right lower lobe, new from previous chest x-ray, perihilar inflammation similar to previous chest x-ray, pleurX catheter in right lower chest similar position, pace maker with lead intact, valve replacement intact. Stat Rad Radiology results and stated below per my review and radiologist interpretation: CT EXTREMITY RIGHT LOWER: Comparison: Right tibia-fibula radiographs 10/15/17. Diffuse subcutaneous edema and soft tissue swelling, compatible with cellulitis. No soft tissue gas. No evidence of organized fluid collection to suggest abscess. No acute fracture or malalignment. Bone infarct in the distal tibia. Radiologist: Jessica Gisela, M.D. Laboratory Results 10/15/17 01:48 Red Blood Count 2.92, Mean Corpuscular Volume 94.9, Mean Corpuscular Hemoglobin 28.8, Mean Corpuscular Hemoglobin Concent 30.3, Mean Platelet Volume 9.5, Neutrophils (%) (Auto) 82.0, Lymphocytes (%) (Auto) 4.1, Monocytes (%) (Auto) 12.0, Eosinophils (%) (Auto) 1.4, Basophils (%) (Auto) 0.3, Neutrophils # (Auto ) 7.72, Lymphocytes # (Auto) 0.39, Monocytes # (Auto) 1.13, Eosinophils # (Auto ) 0.13, Basophils # (Auto) 0.03 10/15/17 01:48 Test 10/15/17 01:48 10/15/17 01:51 White Blood Count 9.42 K/uL (4.8-10.8) Red Blood Count 2.92 M/uL (4.2-5.4) Hemoglobin 8.4 g/dL (12.0-16.0) Hematocrit 27.7 % (37-47) Mean Corpuscular Volume 94.9 fL (80-100) Mean Corpuscular Hemoglobin 28.8 pg (25-34) Mean Corpuscular Hemoglobin Concent 30.3 g/dl (32-36) Platelet Count 211 K/uL (130-400) Mean Platelet Volume 9.5 fL (7.4-10.4) Neutrophils (%) (Auto) 82.0 % Lymphocytes (%) (Auto) 4.1 % Monocytes (%) (Auto) 12.0 % Eosinophils (%) (Auto) 1.4 % Basophils (%) (Auto) 0.3 % Neutrophils # (Auto) 7.72 K/uL (1.4-6.5) Lymphocytes # (Auto) 0.39 K/uL (1.2-3.4) Monocytes # (Auto) 1.13 K/uL (0.11-0.59) Eosinophils # (Auto) 0.13 K/uL (0-0.5) Basophils # (Auto) 0.03 K/uL (0-0.2) RDW Standard Deviation 69.1 fL (36.4-46.3) RDW Coefficient of Variation 20.1 % (11.5-14.5) Immature Granulocyte % (Auto) 0.2 % Immature Granulocyte # (Auto) 0.02 K/uL (0.00-0.02) Polychromasia 1+ Acanthocytes 1+ Prothrombin Time 25.0 SECONDS (9.0-12.0) Prothromb Time International Ratio 2.4 (0.9-1.1) Anion Gap 9.0 mmol/L (3-11) Est Creatinine Clear Calc Drug Dose 18.9 ml/min Estimated GFR () 21.8 Estimated GFR (Non- 18.8 BUN/Creatinine Ratio 27.5 (10-20) Calcium Level 8.0 mg/dl (8.5-10.1) Magnesium Level 2.2 mg/dl (1.8-2.4) Total Bilirubin 0.4 mg/dl (0.2-1) Direct Bilirubin 0.2 mg/dl (0-0.2) Aspartate Amino Transf (AST/SGOT) 35 U/L (15-37) Alanine Aminotransferase (ALT/SGPT) 28 U/L (12-78) Alkaline Phosphatase 114 U/L (45-117) Total Creatine Kinase 68 U/L (26-192) Creatine Kinase MB 1.4 ng/ml (0.5-3.6) Creatine Kinase MB Ratio 2.1 (0-3.0) Troponin I 0.026 ng/ml (0-0.045) Pro-B-Type Natriuretic Peptide 879 pg/ml (0-900) Total Protein 7.1 gm/dl (6.4-8.2) Albumin 3.2 gm/dl (3.4-5.0) Digoxin Level 0.9 ng/ml (0.8-2.0) Bedside Lactic Acid Venous 1.57 mmol/L (0.90-1.70) Laboratory results as reviewed by me. Medications Administered Medications (Trade) Dose Ordered Sig/Albin Route Start Time Stop Time Status Last Admin Dose Admin Fentanyl Citrate (Fentanyl Inj) 50 mcg NOW ONCE IV 10/15/17 01:45 10/15/17 01:46 DC 10/15/17 01:56 50 MCG Imipenem/ Cilastatin Sodium 500 mg/Dextrose 110 ml @ 100 mls/hr NOW STAT IV 10/15/17 01:48 10/15/17 02:53 DC 10/15/17 02:11 100 MLS/HR Acetaminophen (Tylenol Tab) 1,000 mg NOW STAT PO 10/15/17 02:37 10/15/17 02:38 DC 10/15/17 02:50 1,000 MG Vancomycin HCl 1250 mg/Sodium Chloride 275 ml @ 125 mls/hr NOW STAT IV 10/15/17 03:13 10/15/17 05:24 DC 10/15/17 04:06 125 MLS/HR ECG Per My Interpretation Indication: weakness Rate (beats per minute): 82 Rhythm: other (ventricular paced) Findings: PVC, no acute ischemic change Change: EKG similar to previous EKGs. ED Course 0135: The patient was evaluated in room A11B. A complete history and physical exam was performed. 0235: I rechecked the patient. She is sleeping and in no distress. 0240: I discussed the patient's case with Dr. Garcia, [facility] Hospitalist. She agrees to evaluate the patient for further management. 0245: I rechecked the patient. She states she is feeling cold but is otherwise comfortable. Medical Decision Differential: Sepsis, Infectious (UTI/Pneumonia/Meningitis/etc), Metabolic/ Electrolyte Abnormality, Cardiac, Dehydration, Anemia, Hepatic, Endocrine, Toxicologic, Neurologic, amongst other pathologies entertained. Chronically unwell 77 yr old female with host of medical comorbidities arrievs for evaluation of hypoxia/shob at home as well as right leg cat bite. Large area cellulitis posterior right leg. She is febrile. Cultures obtained along with LA which was normal and she was started on Primaxin (allergic to PNC, fluoroquinolones) for CAT BITE. CXR with quesitonable RLL infiltrate though may just be atalectasis. No evidence of over CHF at this time. INR therapeutic and I do not feel this is PE. No FB on tib fib xray nor clear free air. CT done of lower extremity to further evaluate for any air which was not noted either. Given IV Vanco for further coverage given her frequent hospitalizations. She is hemodynamically stable throughout stay. Requiring NC for hypoxia on RA. Fentanyl for leg pain. No crepitus and no evidence this is Nec Fasc at this time. Pt states tetanus UTD. Cardiac stable. Anemic but at baseline. Hospitalist consulted for further management. Medication Reconcilliation Current Medication List: was personally reviewed by me Blood Pressure Screening Patient's blood pressure: Elevated blood pressure (monitor by hospitalist) Consults Time Called: [phone] Consulting Physician: Dr. Garcia, [facility] Hospitalist Returned Call: [phone] I discussed the patient's case with Dr. Garcia [facility] Hospitalist. She agrees to evaluate the patient for further management. Impression Primary Impression: Cellulitis of right leg Additional Impressions: Cat bite Hypoxia Scribe Attestation The scribe's documentation has been prepared under my direction and personally reviewed by me in its entirety. I confirm that the note above accurately reflects all work, treatment, procedures, and medical decision making performed by me. Departure Information Dispostion Being Evaluated By Hospitalist Referrals Phoenix Klein III, CRNP (PCP) Patient Instructions My [facility] Problem Qualifiers
[2017-10-15] MEDS ORDERED: IMIPENEM/CILASTATIN IV 500 MG in DEXTROSE 5% 100ML 100 ML IV STA (01:48)
[2017-10-15 02:05] LABS: BASO % 0.3 %; BASO ABS # 0.03 K/uL (0-0.2); EOS % 1.4 %; EOS ABS # 0.13 K/uL (0-0.5); HEMATOCRIT 27.7 % (37-47); HEMOGLOBIN 8.4 g/dL (12.0-16.0); IG# 0.02 K/uL (0.00-0.02); LYMPH % 4.1 %; LYMPH ABS # 0.39 K/uL (1.2-3.4); MEAN CELL VOLUME 94.9 fL (80-100); MEAN CORPUSCULAR HEMOGLOBIN 28.8 pg (25-34); MEAN CORPUSCULAR HGB CONC 30.3 g/dl (32-36); MEAN PLATELET VOLUME 9.5 fL (7.4-10.4); MONO ABS # 1.13 K/uL (0.11-0.59); NEUT ABS # 7.72 K/uL (1.4-6.5); PLATELET COUNT 211 K/uL (130-400); RED CELL DISTRIBUTION WIDTH CV 20.1 % (11.5-14.5); RED CELL DISTRIBUTION WIDTH SD 69.1 fL (36.4-46.3); WHITE BLOOD COUNT 9.42 K/uL (4.8-10.8)
[2017-10-15 02:11] LABS: INR 2.4 (0.9-1.1)
[2017-10-15 02:26] LABS: ALBUMIN 3.2 gm/dl (3.4-5.0); CKMB 1.4 ng/ml (0.5-3.6); CREATININE 2.43 mg/dl (0.60-1.20); POTASSIUM 4.7 mmol/L (3.5-5.1); TOTAL PROTEIN 7.1 gm/dl (6.4-8.2)
[2017-10-15] MEDS ORDERED: ACETAMINOPHEN 500 MG TAB PO STA (02:37)
[2017-10-15] MEDS ORDERED: VANCOMYCIN IV 1,250 MG in SODIUM CHLORIDE 0.9% 250ML 250 ML IV STA (03:13)
[2017-10-15] MEDS ORDERED: VANCOMYCIN IV 1,250 MG in SODIUM CHLORIDE 0.9% 500ML 500 ML IV STA (03:13)
[2017-10-15] MEDS ORDERED: VANCOMYCIN CONSULT ACTIVE PRN ×2 (03:15→03:30)
[2017-10-15] MEDS ORDERED: ACETAMINOPHEN 325 MG TAB PO PRN (03:30)
[2017-10-15] MEDS ORDERED: DC ALL PREVIOUSLY ORDERED DIABETES MEDS ONE (03:30)
[2017-10-15] MEDS ORDERED: CARBOHYDRATES FOR HYPOGLYCEMIA PO PRN (03:30)
[2017-10-15] MEDS ORDERED: GLUCOSE 40% GEL 15 GM TUBE PO PRN (03:30)
[2017-10-15] MEDS ORDERED: ONDANSETRON INJ 2 MG/ML 2 ML VIAL IV PRN (03:30)
[2017-10-15] MEDS ORDERED: GLUCOSE 10 TABS/TUBE PO PRN (03:30)
[2017-10-15] MEDS ORDERED: GLUCAGON FOR INJ 1 MG VIAL SQ PRN (03:30)
[2017-10-15] MEDS ORDERED: DEXTROSE 50% 50 ML SYR IV PRN (03:30)
--- NOTE | 2017-10-15 04:08 | History and Physical ---
History & Physical Date & Time of Service: Oct 15, 2017 at 03:34 Chief Complaint: Short Of Breath Primary Care Physician: Phoenix Klein III, CRNP History of Present Illness Source: patient Patient is a difficult historian. She presents to the ER today with complaint of shortness of breath that started this evening. Upon arrival to the ER she was found to be 88% on room air. She was placed on 2L by NC with improvement to 100%. No further complaint of SOB. Her cat bit her on the posterior portion of her right calf this morning. Her cat is an indoor/outdoor cat. She reports that the animal is in good health. Patient developed shaking chills this evening and progressive RLE pain which prompted her to come to the ER. No additional complaints ER Course: Acetaminophen, Imipenem, Fentanyl Past Medical/Surgical History Medical Problems: Chronic diastolic CHF Pulmonary hypertension ROSELYN stage IV - baseline Cr of 2.2 Pleural effusion s/p placement of PleurX catheter Atrial fibrillation on coumadin anticoagulation Hypertension Hyperlipidemia Hypothyroidism DM Type II COPD Anemia Cardiac pacemaker in situ Mechanical mitral valve in place Surgical Problems: (1) Cholecystectomy (2) Hysterectomy Family History Cancer Diabetes mellitus Heart disease Hypertension Lung disease Social History Smoking Status: Never Smoker Alcohol Use: none Drug Use: none Marital Status: Housing status: lives with family Occupational Status: retired Immunizations History of Influenza Vaccine: Yes Influenza Vaccine Date: Dec 23, 2010 History of Tetanus Vaccine?: utd History of Pneumococcal: Yes History of Hepatitis B Vaccine: No Allergies Coded Allergies: Penicillins (Verified Allergy, Severe, anaphylaxis 30yrs ago, also broke out with sores, 10/15/17) NOTE: Timentin 05/2003 tolerated without problem Diltiazem (Verified Allergy, Unknown, unknown, 10/15/17) Levofloxacin (Verified Allergy, Unknown, UNKNOWN, 10/15/17) Moxifloxacin (Verified Allergy, Unknown, UNKNOWN, 10/15/17) Aspirin (Verified Adverse Reaction, Intermediate, increased bleeding (on warfarin), 10/15/17) Doxycycline (Verified Adverse Reaction, Intermediate, GI SYMPTOMS, 10/15/17) Atorvastatin (Verified Adverse Reaction, Unknown, & Crestor = muscle aches /pains, 10/15/17) NSAIDs (Verified Adverse Reaction, Unknown, AVOID PER DR. HICKS - [id number] , 10/15/17) Nortriptyline (Verified Adverse Reaction, Unknown, choking on food, 10/15/17 ) Quinidine (Verified Adverse Reaction, Unknown, flu-like symptoms, 10/15/17) Sulfamethoxazole w/Trimethoprim (Verified Adverse Reaction, Unknown, CONFUSION, 10/15/17) Home Medications Scheduled Bumetanide (Bumex), 4 MG PO QAM Bumetanide (Bumex), 2 MG PO QPM Cholecalciferol (Vitamin D3), 1,000 INTER.UNIT PO TID Cyanocobalamin (Vitamin B-12), 1,000 MCG PO QAM Diazepam (Valium), 5 MG PO HS Digoxin (Digoxin), 0.125 MG PO QAM Ezetimibe (Ezetimibe), 10 MG PO HS Fexofenadine Hcl (Vickie), 180 MG PO QAM Gemfibrozil (Gemfibrozil), 600 MG PO BID Hydralazine Hcl (Apresoline), 25 MG PO BID Insulin Glargine (Lantus), 20-60 UNITS SQ AMPM Lactulose (Chronulac), 15 GM PO QAM Levothyroxine Sodium (Synthroid), 175 MCG PO DAILY Metoprolol Succ (Toprol Xl) (Toprol-Xl ), 100 MG PO DAILY Misc Natural Products (Osteo Bi-Flex Joint Shiel), 1 TAB PO BID Montelukast Sod (Montelukast Sodium), 10 MG PO QAM Pyridoxine (Vitamin B6), 100 MG PO QAM Spironolactone (Aldactone), 50 MG PO BID Trospium Chloride (Trospium Chloride), 20 MG PO DAILY Warfarin Sodium (Coumadin), 3 MG PO DAILY Scheduled PRN Diclofenac Sodium (Topical) (Diclofenac Sodium), 1 APPLN TOP QID PRN for Pain- Affected Joints Insulin Aspart (Novolog), 1 DOSE SC ACHS PRN for As Needed Review of Systems Constitutional: + fever, + chills, + sweats, + weakness Eyes: No worsening of vision Respiratory: No cough, No shortness of breath Cardiovascular: No chest pain, No palpitations Abdomen: + nausea, No pain, No vomiting, No diarrhea, No constipation Genitourinary - Female: No dysuria Hematologic / Lymphatic: No abnormal bleeding/bruising Integumentary: No rash Physical Exam Vital Signs Date Time Temp Pulse Resp B/P (MAP) Pulse Ox O2 Delivery O2 Flow Rate FiO2 10/15/17 02:19 39.2 61 20 134/47 91 Room Air 10/15/17 02:00 91 Room Air 10/15/17 01:37 78 General: patient resting in bed, pain with movement of RLE, NAD, AA&O x 4 Skin: warm, dry HEENT: NC/AT, PERRL, EOMI, anicteric sclera, conjunctiva without injection, nares patent, DRY membranes, no oropharyngeal lesions, neck supple, trachea midline, no thyromegaly, no LAD Heart: +S1/S2, regular, paced, 4/6 CHRISTEL at right 2nd ICS with radiation across the precordium, systolic click present, no rubs/gallops Lungs: equal air entry bilaterally, diminished breath sounds at the right base with crackles in the right lung field, PleurX in place right posterior chest wall Abdomen: soft, NT, mildly distended, tympanic to percussion, no masses/ organomegaly/ascites Extremities: Bilateral pitting edema R > L, with skin thickening and small weeping wound on right anterior villareal with yellow crust, chronic skin changes, warmth to the touch R>L, exquisite tenderness with palpation of the posterior medial portion of RLE, swelling and erythema of right calf to above the knee, small puncture wounds, no crepitus/bullae or lymphangitic streaking, no pain with palpation of thigh Neuro: grossly intact Diagnostics Laboratory Results Results Past 24 Hours Test 10/15/17 01:48 10/15/17 01:51 Range/Units White Blood Count 9.42 4.8-10.8 K/uL Red Blood Count 2.92 4.2-5.4 M/uL Hemoglobin 8.4 12.0-16.0 g/dL Hematocrit 27.7 37-47 % Mean Corpuscular Volume 94.9 80-100 fL Mean Corpuscular Hemoglobin 28.8 25-34 pg Mean Corpuscular Hemoglobin Concent 30.3 32-36 g/dl Platelet Count 211 130-400 K/uL Mean Platelet Volume 9.5 7.4-10.4 fL Neutrophils (%) (Auto) 82.0 % Lymphocytes (%) (Auto) 4.1 % Monocytes (%) (Auto) 12.0 % Eosinophils (%) (Auto) 1.4 % Basophils (%) (Auto) 0.3 % Neutrophils # (Auto) 7.72 1.4-6.5 K/uL Lymphocytes # (Auto) 0.39 1.2-3.4 K/uL Monocytes # (Auto) 1.13 0.11-0.59 K/uL Eosinophils # (Auto) 0.13 0-0.5 K/uL Basophils # (Auto) 0.03 0-0.2 K/uL RDW Standard Deviation 69.1 36.4-46.3 fL RDW Coefficient of Variation 20.1 11.5-14.5 % Immature Granulocyte % (Auto) 0.2 % Immature Granulocyte # (Auto) 0.02 0.00-0.02 K/uL Polychromasia 1+ Acanthocytes 1+ Prothrombin Time 25.0 9.0-12.0 SECONDS Prothromb Time International Ratio 2.4 0.9-1.1 Sodium Level 136 136-145 mmol/L Potassium Level 4.7 3.5-5.1 mmol/L Chloride Level 105 98-107 mmol/L Carbon Dioxide Level 22 21-32 mmol/L Anion Gap 9.0 3-11 mmol/L Blood Urea Nitrogen 67 7-18 mg/dl Creatinine 2.43 0.60-1.20 mg/dl Est Creatinine Clear Calc Drug Dose 18.9 ml/min Estimated GFR () 21.8 Estimated GFR (Non- 18.8 BUN/Creatinine Ratio 27.5 10-20 Random Glucose 179 70-99 mg/dl Calcium Level 8.0 8.5-10.1 mg/dl Magnesium Level 2.2 1.8-2.4 mg/dl Total Bilirubin 0.4 0.2-1 mg/dl Direct Bilirubin 0.2 0-0.2 mg/dl Aspartate Amino Transf (AST/SGOT) 35 15-37 U/L Alanine Aminotransferase (ALT/SGPT) 28 12-78 U/L Alkaline Phosphatase 114 45-117 U/L Total Creatine Kinase 68 26-192 U/L Creatine Kinase MB 1.4 0.5-3.6 ng/ml Creatine Kinase MB Ratio 2.1 0-3.0 Troponin I 0.026 0-0.045 ng/ml Pro-B-Type Natriuretic Peptide 879 0-900 pg/ml Total Protein 7.1 6.4-8.2 gm/dl Albumin 3.2 3.4-5.0 gm/dl Digoxin Level 0.9 0.8-2.0 ng/ml Bedside Lactic Acid Venous 1.57 0.90-1.70 mmol/L Microbiology Results 10/15/17 Blood Culture, Received Pending 10/15/17 Blood Culture, Received Pending EKG V-paced with PVCs, no evidence of acute ischemia Impression Assessment and Plan 77yo female with RLE cellulitis, history of cat bite 1. RLE cellulitis- CT ordered due to extreme tenderness to palpation, appear to have no gas, significant subcutaneous edema, no obvious abscess formation. Patient febrile at 39.2, slightly tachypneic at 23bpm on my assessment. No leukocytosis, lactate = 1.57. She has multiple allergies to antibiotics including Doxycycline, Levaquin/Moxifloxacin, Sulfamethoxazole and PCNs - difficult as these agents are typically first line for cat bite -Imipenem renally dosed -Vancomycin renally dosed -ID consultation, appreciate assistance with antibiotic management -Blood cultures sent from ER, will follow 2. Diastolic CHF - stable, no evidence of acute exacerbation. Patient appears to be slightly dry on clinical exam and laboratory values -Hold Bumex and Spironolactone for now -Continue Digoxin, Hydralazine, Imdur, Metoprolol -Continue Zetia and Gemfibrozil 3. CKD Stage IV - patient with Cr of 2.4 today, mildly above her baseline of 2.2. She appears clinically volume depleted on exam -Hold diuretic therapy for now -Gentle IV hydration with NSS x 500mL 4. Diabetes - blood sugar presently 179. -Lantus 10 units BID -Novolog SS with CF of 35, carb ratio of 12 based on weight and stress level of 2 5. COPD - patient with stable COPD -Continue Singulair, Vickie, DuoNeb PRN 6. Mechanical Aortic valve in situ - -Anticoagulated with Coumadin, INR slightly below goal for mechanical valve at 2.4 -Continue Coumadin 3mg po daily -Monitor daily INR 7. Hypothyroidism - stable, chronic -Continue Synthroid 8. Hypertension - patient presently normotensive, low diastolic pressure -Continue to monitor -Continue medications as above 9. HLP - stable, chronic -Continue gemfibrozil and Zetia 10. Anemia - stable H/H -Continue to monitor 11. F/E/N - gentle hydration with NSS 500mL, monitor electrolytes and replete as needed, AHA/Diabetic diet as tolerated, hold home vitamins for now 12. Code - DNR per discussion with patient 13. Dispo - Admit to medical floor, IV antibiotics Resuscitation Status VTE Prophylaxis Will order VTE Prophylaxis: No Reason for no VTE drug order: Treatment not indicated Reason no Mechanical VTE Order: Treatment not indicated
[2017-10-15] MEDS ORDERED: ALBUT/IPRATROP 3MG/0.5MG NEB 3 ML VIAL INH PRN (04:15)
[2017-10-15] MEDS ORDERED: IMIPENEM/CILASTATIN CONSULT ACTIVE PRN (04:30)
[2017-10-15] MEDS ORDERED: SODIUM CHLORIDE 0.9% 500ML 500 ML IV SCH (05:15)
[2017-10-15] MEDS: LEVOTHYROXINE 175 MCG TAB PO SCH (06:25)
--- NOTE | 2017-10-15 07:06 | DIAGNOSTIC IMAGING REPORT ---
ULTRASOUND RIGHT LOWER EXTREMITY VENOUS CLINICAL HISTORY: Right leg pain and swelling. COMPARISON STUDY: Right lower extremity venous ultrasound dated 02/28/2016. TECHNIQUE: Real-time, grayscale, and color Doppler sonography of the deep veins of the right lower extremity was performed from the inguinal crease to the calf. Compression and augmentation were utilized. FINDINGS: There is no sonographic evidence of deep venous thrombosis identified in the right lower extremity. The common femoral, superficial femoral, and popliteal veins are patent and normally compressible. The greater saphenous vein and the profunda femoris vein at the junction with the common femoral vein are clear. The visualized calf veins are patent. Subcutaneous soft tissue edema is noted in the right leg. IMPRESSION: There is no sonographic evidence of deep venous thrombosis identified in the right lower extremity. Electronically signed by: Ventura Kaplan M.D. 10/15/2017 7:05 AM Dictated Date/Time: 10/15/2017 7:05 AM
--- NOTE | 2017-10-15 07:12 | DIAGNOSTIC IMAGING REPORT ---
RIGHT TIBIA AND FIBULA 2 VIEWS CLINICAL HISTORY: Cat-bite injury. FINDINGS: AP and lateral views of the right tibia and fibula compared to study dated 10/23/2012. The skeletal structures are osteopenic. No fracture is seen. There is no bony erosion or periostitis. A benign-appearing sclerotic lesion in the distal tibia is unchanged from 2013 and of doubtful significance. Arthritic change is noted in the knee. Diffuse soft tissue edema is present throughout the right lower extremity. IMPRESSION: Soft tissue edema with no acute bony abnormality identified. Electronically signed by: Ventuar Kaplan M.D. 10/15/2017 7:11 AM Dictated Date/Time: 10/15/2017 7:09 AM
--- NOTE | 2017-10-15 07:14 | DIAGNOSTIC IMAGING REPORT ---
SINGLE VIEW CHEST CLINICAL HISTORY: Fever. FINDINGS: An AP, portable, upright chest radiograph is compared to study dated 10/08/2017. The examination is degraded by portable technique and patient rotation. A single lead cardiac pacemaker is unchanged in position. The patient is status post midline sternotomy and cardiac valve surgery. The heart is enlarged and there is atherosclerotic calcification of the thoracic aorta. There is pulmonary vascular congestion. There are small pleural effusions. A pleural drain is noted the right lung base. Bibasilar opacities are identified. No pneumothorax is seen. The skeletal structures are osteopenic. The bony thorax is grossly intact. IMPRESSION: 1. Cardiomegaly and cardiac pacemaker with evidence of congestive failure. 2. There are small pleural effusions. A pleural drain is again seen at the right lung base. 3. Bibasilar opacities likely represent atelectasis. Correlate clinically for evidence of superimposed pneumonia. Electronically signed by: Ventura Kaplan M.D. 10/15/2017 7:13 AM Dictated Date/Time: 10/15/2017 7:11 AM
--- NOTE | 2017-10-15 07:32 | DIAGNOSTIC IMAGING REPORT ---
RIGHT LOWER LEG CT CT DOSE: 238.48 mGy.cm HISTORY: cat bite upper right calf, now swelling, spreading TECHNIQUE: Multiaxial CT images of the right lower leg were performed and reformatted in the sagittal and coronal plane without the use of contrast. A dose lowering technique was utilized adhering to the principles of ALARA. COMPARISON: Right tibia/fibula 10/15/2017. FINDINGS: Extensive subcutaneous edema and skin thickening throughout the right lower leg. No loculated fluid collections on this noncontrast study to suggest an abscess. No radiopaque foreign bodies. Vascular calcifications are noted. No fracture or dislocation. No cortical destruction to suggest osteomyelitis. 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 Moderate osteoarthritis within the right knee with chondrocalcinosis. No soft tissue gas. IMPRESSION: 1. Diffuse subcutaneous edema and skin thickening within the right lower leg consistent with a cellulitis. 2. No loculated fluid collection to suggest an abscess on this noncontrast study. 3. Bone infarct within the distal tibia. Electronically signed by: Lalito Villavicencio M.D. 10/15/2017 7:30 AM Dictated Date/Time: 10/15/2017 7:05 AM
[2017-10-15] MEDS: GEMFIBROZIL 600 MG TAB PO SCH ×2 (07:49→21:22)
[2017-10-15] MEDS: MONTELUKAST SOD 10 MG TAB PO SCH (07:49)
[2017-10-15] MEDS: FEXOFENADINE HCL 180 MG TAB PO SCH (07:49)
[2017-10-15] MEDS: METOPROLOL SUCC 50MG EXT REL TAB PO SCH (07:50)
[2017-10-15] MEDS: INSULIN GLARGINE SOLOSTAR 100 UNITS/ML 3 ML PEN SC SCH ×2 (07:54→21:33)
[2017-10-15] MEDS: INSULIN ASPART 100 UNITS/ML 3 ML PEN SC SCH ×4 (07:57→21:32)
[2017-10-15] MEDS: IMIPENEM-CILASTATIN 200 MG in DEXTROSE 5% 100ML 100 ML IV SCH ×3 (08:02→19:48)
[2017-10-15] MEDS ORDERED: VANCOMYCIN IV 500 MG in SODIUM CHLORIDE 0.9% 250ML 250 ML IV SCH (09:00)
--- NOTE | 2017-10-15 10:57 | Medical Consult ---
Consultation Date of Consultation: Oct 15, 2017. Attending Physician: Karlee Underwood MD Reason for Consultation: Right cellulitis, multiple antibiotic allergies History of Present Illness 77-year-old female with multiple medical problems including atrial fibrillation , previous CVA, mitral valve replacement, who was bitten by her cat several days ago on her right posterior calf, then developed progressively worsening pain, redness, swelling of right leg, associated with severe shortness of breath. Found to be severely hypoxic and admitted to the hospital for further management. She has been started on IV imipenem which she is tolerating without apparent difficulty. States pain in right leg currently 2 out of 10 in intensity. Patient with fever and severe chills over the last 24 hours. Past Medical/Surgical History Medical Problems: (1) Anasarca Status: Acute (2) Anxiety Status: Acute (3) Arm pain, left Status: Acute (4) Back pain Status: Acute (5) Back pain Status: Acute (6) Cat bite Status: Acute (7) Cat bite of right lower leg with infection Status: Acute (8) Cellulitis Status: Acute (9) Cellulitis of right leg Status: Acute (10) CHF (congestive heart failure) Status: Acute (11) Chronic obstructive pulmonary disease Status: Acute (12) COPD exacerbation Status: Acute (13) Dehydration Status: Acute (14) Dyspnea Status: Acute (15) Fever Status: Acute (16) Fracture of right distal radius Status: Acute (17) GI bleed Status: Acute (18) GI bleed Status: Acute (19) Guaiac + stool Status: Acute (20) Hypoxia Status: Acute (21) L2 vertebral fracture Status: Acute (22) Left hip pain Status: Acute (23) Medication adverse effect Status: Acute (24) Pleural effusion Status: Acute (25) PNA (pneumonia) Status: Acute (26) Pulmonary HTN Status: Acute (27) Rapid atrial fibrillation Status: Acute (28) Respiratory distress Status: Acute (29) Right arm fracture Status: Acute (30) Superficial phlebitis Status: Acute (31) Supratherapeutic INR Status: Acute Medical Problems: (1) Acute kidney injury (2) Acute pancreatitis (3) Acute respiratory failure with hypoxia (4) Acute systolic congestive heart failure (5) Acute urinary tract infection (6) Asthma (7) Atrial fibrillation (8) Cardiac pacemaker procedure (9) CKD (chronic kidney disease) (10) Contrast dye induced nephropathy (11) Deep venous thrombosis (12) Diabetes mellitus (13) Hip pain (14) History of mitral valve replacement with mechanical valve (15) PERSONAL HX OF TIA,& CEREBRAL INFARCTION W/OUT RES DEFICITS (16) Pneumonia (17) Replacement of mitral valve with mechanical prosthesis (18) Sepsis Surgical Problems: (1) Cholecystectomy (2) Hysterectomy Family History Cancer Diabetes mellitus Heart disease Hypertension Lung disease Social History Smoking Status: Never Smoker Alcohol Use: none Drug Use: none Marital Status: Housing Status: lives with family Occupation Status: retired Allergies Coded Allergies: Penicillins (Verified Allergy, Severe, anaphylaxis 30yrs ago, also broke out with sores, 10/15/17) NOTE: Timentin 05/2003 tolerated without problem Diltiazem (Verified Allergy, Unknown, unknown, 10/15/17) Levofloxacin (Verified Allergy, Unknown, UNKNOWN, 10/15/17) Moxifloxacin (Verified Allergy, Unknown, UNKNOWN, 10/15/17) Aspirin (Verified Adverse Reaction, Intermediate, increased bleeding (on warfarin), 10/15/17) Doxycycline (Verified Adverse Reaction, Intermediate, GI SYMPTOMS, 10/15/17) Atorvastatin (Verified Adverse Reaction, Unknown, & Crestor = muscle aches /pains, 10/15/17) NSAIDs (Verified Adverse Reaction, Unknown, AVOID PER DR. HICKS - [id number] , 10/15/17) Nortriptyline (Verified Adverse Reaction, Unknown, choking on food, 10/15/17 ) Quinidine (Verified Adverse Reaction, Unknown, flu-like symptoms, 10/15/17) Sulfamethoxazole w/Trimethoprim (Verified Adverse Reaction, Unknown, CONFUSION, 10/15/17) Current Inpatient Medications Current Inpatient Medications Medications (Trade) Dose Ordered Sig/Albni Route Start Time Stop Time Status Last Admin Dose Admin Acetaminophen (Tylenol Tab) 650 mg Q4H PRN PO 10/15/17 03:30 11/14/17 03:29 Ondansetron HCl (Zofran Inj) 4 mg Q6H PRN IV 10/15/17 03:30 11/14/17 03:29 Insulin Glargine (Lantus Solostar Pen) 10 units Q12 SC 10/15/17 09:00 11/14/17 08:59 10/15/17 07:54 10 UNITS Insulin Aspart (novoLOG ASPART) SLIDING SCALE If C... ACHS SC 10/15/17 06:30 11/14/17 06:59 Glucose (Glucose 40% Gel) 15-30 GRAMS 15 GRAMS... UD PRN PO 10/15/17 03:30 11/14/17 03:29 Glucose (Glucose Chew Tab) 4-8 Tablets 4 Tabl... UD PRN PO 10/15/17 03:30 11/14/17 03:29 Dextrose (Dextrose 50% 50ML Syringe) 25-50ML 25ML FOR ... UD PRN IV 10/15/17 03:30 11/14/17 03:29 Glucagon (Glucagon Inj) 1 mg UD PRN SQ 10/15/17 03:30 11/14/17 03:29 Carbohydrates (Carbohydrates For Hypoglycemia) 15-30 GRAMS 15 grams if BSG 54-69... UD PRN PO 10/15/17 03:30 11/14/17 03:29 Diazepam (Valium Tab) 5 mg HS PO 10/15/17 21:00 11/14/17 20:59 Digoxin (Lanoxin Tab) 0.125 mg DAILY@1600 PO 10/15/17 16:00 11/14/17 15:59 EZETIMIBE (Zetia Tab) 10 mg HS PO 10/15/17 21:00 11/14/17 20:59 Fexofenadine HCl (Vickie Tab) 180 mg QAM PO 10/15/17 09:00 11/14/17 08:59 10/15/17 07:49 180 MG Gemfibrozil (Lopid Tab) 600 mg BID PO 10/15/17 09:00 11/14/17 08:59 10/15/17 07:49 600 MG Hydralazine HCl (Apresoline Tab) 25 mg BID PO 10/15/17 09:00 11/14/17 08:59 10/15/17 07:49 25 MG Levothyroxine Sodium (Synthroid Tab) 175 mcg DAILYBB PO 10/15/17 06:30 11/14/17 06:59 10/15/17 06:25 175 MCG Metoprolol Succinate (Toprol Xl Tab) 100 mg DAILY PO 10/15/17 09:00 11/14/17 08:59 10/15/17 07:50 100 MG Montelukast Sodium (Singulair Tab) 10 mg QAM PO 10/15/17 09:00 11/14/17 08:59 10/15/17 07:49 10 MG Warfarin Sodium (Coumadin Tab) 3 mg DAILY@1600 PO 10/15/17 16:00 11/14/17 15:59 Miscellaneous Information (Order Awaiting Action) 1 ea QS N/A 10/15/17 08:00 11/14/17 07:59 Imipenem/ Cilastatin Sodium 200 mg/Dextrose 108 ml @ 100 mls/hr Q6H IV 10/15/17 08:00 10/25/17 07:59 10/15/17 08:02 100 MLS/HR Vancomycin HCl (Consult) 1 ea UD PRN N/A 10/15/17 03:30 11/14/17 03:29 Albuterol/ Ipratropium (Duoneb) 3 ml Q4R PRN INH 10/15/17 04:15 11/14/17 04:14 Imipenem/ Cilastatin Sodium (Consult) 1 ea UD PRN N/A 10/15/17 04:30 11/14/17 04:29 Review of Systems Constitutional: + fever, + chills, + weakness Eyes: No problem reported ENT: No problem reported Respiratory: + shortness of breath, + dyspnea on exertion Cardiovascular: No problem reported Abdomen: No problem reported Musculoskeletal: + muscle pain, + swelling Genitourinary - Female: No problem reported Neurologic: No problem reported Psychiatric: No problem reported Endocrine: No problem reported Hematologic / Lymphatic: No problem reported Integumentary: + new/changing skin lesions Allergic / Immunologic: No problem reported Physical Exam Date Time Temp Pulse Resp B/P (MAP) Pulse Ox O2 Delivery O2 Flow Rate FiO2 10/15/17 09:58 Nasal Cannula 2.0 10/15/17 08:04 36.9 65 18 113/48 (69) 98 Room Air 10/15/17 06:17 37.4 10/15/17 05:04 38.6 63 16 107/54 95 Nasal Cannula 2.0 10/15/17 04:07 38.0 60 20 95/40 97 Nasal Cannula 2.0 10/15/17 02:19 39.2 61 20 134/47 91 Room Air 10/15/17 02:00 91 Room Air 10/15/17 01:37 78 General Appearance: WD/WN, + mild distress Head: normocephalic, atraumatic Eyes: normal inspection, EOMI, sclerae normal ENT: normal ENT inspection, pharynx normal, + nasal congestion Neck: supple, no adenopathy, thyroid normal, trachea midline Respiratory/Chest: chest non-tender, no respiratory distress, no accessory muscle use, + rales (Right base), + pertinent finding (Pleurx catheter right chest) Cardiovascular: regular rate, rhythm, no gallop, + systolic murmur Abdomen/GI: normal bowel sounds, non tender, soft, no organomegaly Back: normal inspection, no CVA tenderness Extremities/Musculoskelatal: + calf tenderness (Right), + inflammation (Right lower leg), + swelling (Right greater than left legs) Neurologic/Psych: alert, oriented x 3 Skin: normal color, no rash, + pertinent finding (Erythema of right leg, open wound anteriorly with yellowish drainage) Lymphatic: no adenopathy Laboratory Results Date/Time Source Procedure Growth Status 10/15/17 01:48 Blood Blood Culture Pending Received 10/15/17 01:43 Blood Blood Culture Pending Received Last 24 Hours Test 10/15/17 01:48 10/15/17 01:51 10/15/17 07:40 White Blood Count 9.42 K/uL Red Blood Count 2.92 M/uL Hemoglobin 8.4 g/dL Hematocrit 27.7 % Mean Corpuscular Volume 94.9 fL Mean Corpuscular Hemoglobin 28.8 pg Mean Corpuscular Hemoglobin Concent 30.3 g/dl Platelet Count 211 K/uL Mean Platelet Volume 9.5 fL Neutrophils (%) (Auto) 82.0 % Lymphocytes (%) (Auto) 4.1 % Monocytes (%) (Auto) 12.0 % Eosinophils (%) (Auto) 1.4 % Basophils (%) (Auto) 0.3 % Neutrophils # (Auto) 7.72 K/uL Lymphocytes # (Auto) 0.39 K/uL Monocytes # (Auto) 1.13 K/uL Eosinophils # (Auto) 0.13 K/uL Basophils # (Auto) 0.03 K/uL RDW Standard Deviation 69.1 fL RDW Coefficient of Variation 20.1 % Immature Granulocyte % (Auto) 0.2 % Immature Granulocyte # (Auto) 0.02 K/uL Polychromasia 1+ Acanthocytes 1+ Prothrombin Time 25.0 SECONDS Prothromb Time International Ratio 2.4 Sodium Level 136 mmol/L Potassium Level 4.7 mmol/L Chloride Level 105 mmol/L Carbon Dioxide Level 22 mmol/L Anion Gap 9.0 mmol/L Blood Urea Nitrogen 67 mg/dl Creatinine 2.43 mg/dl Est Creatinine Clear Calc Drug Dose 18.9 ml/min Estimated GFR () 21.8 Estimated GFR (Non- 18.8 BUN/Creatinine Ratio 27.5 Random Glucose 179 mg/dl Calcium Level 8.0 mg/dl Magnesium Level 2.2 mg/dl Total Bilirubin 0.4 mg/dl Direct Bilirubin 0.2 mg/dl Aspartate Amino Transf (AST/SGOT) 35 U/L Alanine Aminotransferase (ALT/SGPT) 28 U/L Alkaline Phosphatase 114 U/L Total Creatine Kinase 68 U/L Creatine Kinase MB 1.4 ng/ml Creatine Kinase MB Ratio 2.1 Troponin I 0.026 ng/ml Pro-B-Type Natriuretic Peptide 879 pg/ml Total Protein 7.1 gm/dl Albumin 3.2 gm/dl Digoxin Level 0.9 ng/ml Bedside Lactic Acid Venous 1.57 mmol/L Bedside Glucose 85 mg/dl Patient Name: MAGNUS ZIEGLER Unit Number: [id number] Dictated: 10/15/17704 Transcribed: 10/15/17704 [facility] Printed Date/Time: [~ rep prt dt]/[~ rep prt tm] [~ rep ct labl] - [~ rep ct ivnm] [facility] [place] [address] Dictated: 10/15/17704 Transcribed: 10/15/17704 [employer] Printed Date/Time: [~ rep prt dt]/[~ rep prt tm] [~ rep ct labl] - [~ rep ct ivnm] RIGHT LOWER LEG CT CT DOSE: 238.48 mGy.cm HISTORY: cat bite upper right calf, now swelling, spreading TECHNIQUE: Multiaxial CT images of the right lower leg were performed and reformatted in the sagittal and coronal plane without the use of contrast. A dose lowering technique was utilized adhering to the principles of ALARA. COMPARISON: Right tibia/fibula 10/15/2017. FINDINGS: Extensive subcutaneous edema and skin thickening throughout the right lower leg. No loculated fluid collections on this noncontrast study to suggest an abscess. No radiopaque foreign bodies. Vascular calcifications are noted. No fracture or dislocation. No cortical destruction to suggest osteomyelitis. 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 Moderate osteoarthritis within the right knee with chondrocalcinosis. No soft tissue gas. IMPRESSION: 1. Diffuse subcutaneous edema and skin thickening within the right lower leg consistent with a cellulitis. 2. No loculated fluid collection to suggest an abscess on this noncontrast study. 3. Bone infarct within the distal tibia. Electronically signed by: Lalito Villavicencio M.D. 10/15/2017 7:30 AM Dictated Date/Time: 10/15/2017 7:05 AM The status of this report is Signed. Draft = Not yet reviewed or approved by Radiologist. Signed = Reviewed and approved by Radiologist. <AttendingPhy>Josias Red M.D.</AttendingPhy> <FamilyPhy>Phoenix Klein III, CRNP</FamilyPhy> <PrimaryPhy>Phoenix Klein III, CRNP</PrimaryPhy> < UnitNumber>[id number]</UnitNumber> <VisitNumber>[id number]</VisitNumber> < PatientName>MAGNUS ZIEGLER</PatientName> <DateOfBirth>1940</DateOfBirth > <Location>C.[facility]</Location> <ServiceDate>10/15/17</ServiceDate> <MNE>ESINDI</ MNE> <OrderingPhy>Anthony Gar M.D.</OrderingPhy> <OrderingPhyMNE>f rep ord dr mary</OrderingPhyMNE> <DictatingPhyMNE>f rep dict dr mary</DictatingPhyMNE > <CCListMNE>f rep ct usman</CCListMNE> <AdmittingPhyMNE>f pt admit dr mary</ AdmittingPhyMNE> <AttendingPhyMNE>f pt attend dr mary</AttendingPhyMNE> <ConsultingPhyMNE>f pt consult dr mary</ConsultingPhyMNE> <FamilyPhyMNE>f pt fam dr mary</FamilyPhyMNE> <OtherPhyMNE>f pt other dr mary</OtherPhyMNE> < PrimaryPhyMNE>f pt prim care dr mary</PrimaryPhyMNE> <ReferringPhyMNE>f pt referring dr mary</ReferringPhyMNE> Assessment & Plan Cellulitis of right leg associated with cat bite, Pasteurella certainly a possible organism as staph and strep. Imipenem should provide adequate coverage , with length of IV antibiotics be determined by clinical response. Will follow.
[2017-10-15] MEDS: TROSPIUM~ORDER AWAITING ACTION SCH ×2 (11:24→15:58)
[2017-10-15] MEDS: WARFARIN SOD 3 MG TAB PO SCH (15:59)
[2017-10-15] MEDS: DIGOXIN 0.125 MG TAB PO SCH (16:01)
[2017-10-15] MEDS ORDERED: BUMETANIDE 1 MG TAB PO SCH (19:00)
--- NOTE | 2017-10-15 19:04 | Progress Note ---
Progress Note Date of Service Oct 15, 2017. Progress Note Pt admitted earlier this AM. Seen and examined. She was talking on the phone to someone when I came to see her and would not get off the phone. She did answer questions in between sentences talking on the phone. She did say she was a little SOB, and had a lot of pain in her right leg. SHe was having some chills as wlel and temp starting to rise. BCxs both positive for GNRs. She received a liter of lfuid in the ER and IVFs with her abx as well. POx 95% when I saw her on RA Vitals reviewed appears ill, mildly tachypneic, +bibasilar crackles RRR +holosystolic murmur 3+ pitting edema of legs but RLE is quite tense and exquisitely painful, anterior right leg with superficial abrasion with mild serous drainage, posterior leg with small cat bite no drainage Continue Imipenem, dc'd Vanc Repeat BCxs in the AM restart home diuretics given h/o significant CHF and cor pulmonale, worsening SOB, work of breathing and crackles on exam -continue to drain Rt PleurX daily weights, add I/Os, and change diet to low sodium
[2017-10-15] MEDS: EZETIMIBE 10MG TAB PO SCH (21:22)
[2017-10-15] MEDS: CHOLECALCIFEROL 1000 INTER.UNIT TAB PO SCH (21:22)
[2017-10-15] MEDS: DIAZEPAM 5MG TAB PO SCH (21:34)
[2017-10-16] MEDS: IMIPENEM-CILASTATIN 200 MG in DEXTROSE 5% 100ML 100 ML IV SCH ×4 (02:03→21:35)
[2017-10-16] MEDS: LEVOTHYROXINE 175 MCG TAB PO SCH (05:56)
[2017-10-16 05:57] LABS: BASO % 0.3 %; BASO ABS # 0.03 K/uL (0-0.2); EOS % 0.7 %; EOS ABS # 0.08 K/uL (0-0.5); HEMATOCRIT 24.4 % (37-47); HEMOGLOBIN 7.4 g/dL (12.0-16.0); IG# 0.06 K/uL (0.00-0.02); LYMPH % 4.8 %; LYMPH ABS # 0.52 K/uL (1.2-3.4); MEAN CELL VOLUME 94.6 fL (80-100); MEAN CORPUSCULAR HEMOGLOBIN 28.7 pg (25-34); MEAN CORPUSCULAR HGB CONC 30.3 g/dl (32-36); MEAN PLATELET VOLUME 9.9 fL (7.4-10.4); MONO % 14.7 %; MONO ABS # 1.59 K/uL (0.11-0.59); NEUT % 78.9 %; NEUT ABS # 8.51 K/uL (1.4-6.5); PLATELET COUNT 169 K/uL (130-400); RED CELL DISTRIBUTION WIDTH CV 20.2 % (11.5-14.5); RED CELL DISTRIBUTION WIDTH SD 69.8 fL (36.4-46.3); WHITE BLOOD COUNT 10.79 K/uL (4.8-10.8)
[2017-10-16 06:32] LABS: CALCIUM 7.8 mg/dl (8.5-10.1); CREATININE 2.76 mg/dl (0.60-1.20); POTASSIUM 5.3 mmol/L (3.5-5.1)
[2017-10-16 07:02] VITALS: BP 103/43; PULSE 59; TEMP 36.9; O2SAT 95
[2017-10-16 07:29] LABS: INR 4.1 (0.9-1.1)
[2017-10-16] MEDS: INSULIN GLARGINE SOLOSTAR 100 UNITS/ML 3 ML PEN SC SCH ×2 (08:30→21:45)
[2017-10-16] MEDS: INSULIN ASPART 100 UNITS/ML 3 ML PEN SC SCH ×4 (08:30→21:44)
[2017-10-16] MEDS: TROSPIUM~ORDER AWAITING ACTION SCH ×3 (08:34→15:12)
[2017-10-16] MEDS: CHOLECALCIFEROL 1000 INTER.UNIT TAB PO SCH ×3 (08:35→21:37)
[2017-10-16] MEDS: GEMFIBROZIL 600 MG TAB PO SCH ×2 (08:35→21:00)
[2017-10-16] MEDS: MONTELUKAST SOD 10 MG TAB PO SCH (08:36)
[2017-10-16 08:38] VITALS: PULSE 64
[2017-10-16] MEDS: FEXOFENADINE HCL 180 MG TAB PO SCH (08:38)
[2017-10-16] MEDS: METOPROLOL SUCC 50MG EXT REL TAB PO SCH (08:38)
[2017-10-16] MEDS: PYRIDOXINE HCL 50 MG TAB PO SCH (08:39)
[2017-10-16] MEDS: LACTULOSE SYRUP 30 GM/45 ML UDP PO SCH (08:40)
[2017-10-16] MEDS ORDERED: SPIRONOLACTONE 25 MG TAB PO SCH (09:00)
[2017-10-16] MEDS ORDERED: BUMETANIDE 1 MG TAB PO SCH ×2 (09:00)
[2017-10-16 12:43] LABS: BASO % 0.2 %; BASO ABS # 0.02 K/uL (0-0.2); EOS % 0.2 %; EOS ABS # 0.02 K/uL (0-0.5); HEMATOCRIT 25.5 % (37-47); HEMOGLOBIN 7.9 g/dL (12.0-16.0); IG# 0.03 K/uL (0.00-0.02); LYMPH % 4.4 %; LYMPH ABS # 0.42 K/uL (1.2-3.4); MEAN CELL VOLUME 93.1 fL (80-100); MEAN CORPUSCULAR HEMOGLOBIN 28.8 pg (25-34); MEAN PLATELET VOLUME 9.2 fL (7.4-10.4); MONO % 13.3 %; MONO ABS # 1.28 K/uL (0.11-0.59); NEUT % 81.6 %; NEUT ABS # 7.84 K/uL (1.4-6.5); PLATELET COUNT 180 K/uL (130-400); RED CELL DISTRIBUTION WIDTH SD 68.4 fL (36.4-46.3); WHITE BLOOD COUNT 9.61 K/uL (4.8-10.8)
--- NOTE | 2017-10-16 12:45 | Clinical Documentation Query ---
QUERY 1 OF [address] DUARTE, In your clinical opinion is this patient being managed for: ( x ) Acute on chronic diastolic CHF ( ) Not Agree ( ) Other explanation of clinical findings (No explanation is considered a No Response) ( ) Unable to determine ( ) Need to Discuss (Phone CDS or qliq) (No discussion is considered a No Response) The medical record reflects the following clinical findings, treatment, and risk factors. Clinical Indicators: 77 yo female presenting with RLE cellulitis from a recent cat bite. Pt was also hypoxic with O2 sat of 88% on RA. At time of admission, pt noted to have crackles in the R lung field and bilateral pitting edema in LE. Subsequent physician visit noted pt mildly tachypneic with bibasilar crackles. Diuretic had initially been held however then resumed following second assessment. Treatment: resume bumex, daily wts, I/O, low sodium diet Risk Factors: age, hx chronic diastolic CHF, CKD, 500 cc IV fluids x 1 QUERY 2 OF 2 In your clinical opinion is this patient being managed for: ( x ) Acute kidney failure ( ) Not Agree ( ) Other explanation of clinical findings (No explanation is considered a No Response) ( ) Unable to determine ( ) Need to Discuss (Phone CDS or qliq) (No discussion is considered a No Response) The medical record reflects the following clinical findings, treatment, and risk factors. Clinical Indicators: Pt with CKD stage IV with a noted baseline of approx 2.2. Presented with Cr 2.43 which has risen to 2.78 Treatment: nephrology consult, monitor PRP's, 500 cc gentle IV fluids Risk Factors: CHF, CKD, DM, HTN Please clarify and document your clinical opinion in the progress notes and discharge summary. Terms such as "probable", "suspected", "likely", "questionable", "possible", or "still to be ruled out" are acceptable. IF IN AGREEMENT, YOU MUST DOCUMENT ABOVE DIAGNOSTIC STATEMENT IN DAILY PROGRESS NOTES AND DISCHARGE SUMMARY. This document is not part of the patient's record. Thank You, Justa Leonardo, RN [phone]
--- NOTE | 2017-10-16 12:50 | Hospitalist Progress Note ---
Hospitalist Progress Note Date of Service Oct 16, 2017. Subjective Pt evaluation today including: conversation w/ patient, conversation w/ [employer] financial[employer] consultant (Dr. Araujo of [facility]; Cardiology) Voiding: no voiding problems Pt notes she is very concerned about the fluid building back up on her lungs and wants her PleurX catheter to be drained. Also, is due soon to have pacer battery chnaged out-would like a Cardiology consultation. Is feeling fluid overloaded. Volunteers that she is getting to the point where she is ready to give up on "treatment." She wants to have antibiotics for her infection currently, but says she does not want any more blood transfusions, but is ok with IV iron. She is definitely a DNR/DNI, and says she would not want vasopressors or transfer to ICU if she got more ill and hypotensive. All Other Systems: Reviewed and Negative Objective Vital Signs Date Time Temp Pulse Resp B/P (MAP) Pulse Ox O2 Delivery O2 Flow Rate FiO2 10/16/17 08:38 64 10/16/17 08:00 Nasal Cannula 2.0 10/16/17 07:02 36.9 59 16 103/43 (63) 95 Room Air 10/15/17 23:18 36.9 65 16 110/46 (67) 99 Nasal Cannula 2.0 10/15/17 21:20 105/52 (69) 10/15/17 20:00 Nasal Cannula 2.0 10/15/17 18:43 37.6 62 28 104/47 (66) 95 Room Air 10/15/17 18:26 97 Room Air 10/15/17 16:01 66 10/15/17 16:00 Nasal Cannula 2.0 10/15/17 15:15 37.1 60 16 99/43 (61) 99 Room Air Physical Exam General Appearance: WD/WN, no apparent distress Eyes: normal inspection, sclerae normal ENT: hearing grossly normal Neck: trachea midline Respiratory/Chest: no respiratory distress, no accessory muscle use, + decreased breath sounds (and crackles at bases bilat) Cardiovascular: regular rate, rhythm, + systolic murmur, + pertinent finding (3 + tense pitting edema of legs bilat R>L) Abdomen: normal bowel sounds, non tender, soft Extremities: + swelling (as above; right leg with cat tooth vasu posterior medial calf, otherwise with exquisite tenderness of most of right leg and calf with erythema) Neurologic/Psychiatric: alert, normal mood/affect, oriented x 3 Skin: warm/dry Laboratory Results Last 24 Hours Test 10/15/17 16:36 10/15/17 20:27 10/16/17 05:47 10/16/17 07:28 Bedside Glucose 107 mg/dl 145 mg/dl 164 mg/dl White Blood Count 10.79 K/uL Red Blood Count 2.58 M/uL Hemoglobin 7.4 g/dL Hematocrit 24.4 % Mean Corpuscular Volume 94.6 fL Mean Corpuscular Hemoglobin 28.7 pg Mean Corpuscular Hemoglobin Concent 30.3 g/dl Platelet Count 169 K/uL Mean Platelet Volume 9.9 fL Neutrophils (%) (Auto) 78.9 % Lymphocytes (%) (Auto) 4.8 % Monocytes (%) (Auto) 14.7 % Eosinophils (%) (Auto) 0.7 % Basophils (%) (Auto) 0.3 % Neutrophils # (Auto) 8.51 K/uL Lymphocytes # (Auto) 0.52 K/uL Monocytes # (Auto) 1.59 K/uL Eosinophils # (Auto) 0.08 K/uL Basophils # (Auto) 0.03 K/uL RDW Standard Deviation 69.8 fL RDW Coefficient of Variation 20.2 % Immature Granulocyte % (Auto) 0.6 % Immature Granulocyte # (Auto) 0.06 K/uL Anisocytosis PRESENT Spherocytes OCCASIONAL Echinocytes 1+ Prothrombin Time 42.0 SECONDS Prothromb Time International Ratio 4.1 Sodium Level 130 mmol/L Potassium Level 5.3 mmol/L Chloride Level 101 mmol/L Carbon Dioxide Level 19 mmol/L Anion Gap 10.0 mmol/L Blood Urea Nitrogen 75 mg/dl Creatinine 2.76 mg/dl Est Creatinine Clear Calc Drug Dose 16.6 ml/min Estimated GFR () 18.7 Estimated GFR (Non- 16.1 BUN/Creatinine Ratio 27.1 Random Glucose 148 mg/dl Calcium Level 7.8 mg/dl Thyroid Stimulating Hormone (TSH) 2.120 uIu/ml Test 10/16/17 08:36 10/16/17 09:55 10/16/17 11:34 10/16/17 12:15 Osmolality 300 mOsm/kg Urine Osmolality 317 mOms/kg Urine Random Sodium 8 mEq/L Bedside Glucose 227 mg/dl White Blood Count 9.61 K/uL Red Blood Count 2.74 M/uL Hemoglobin 7.9 g/dL Hematocrit 25.5 % Mean Corpuscular Volume 93.1 fL Mean Corpuscular Hemoglobin 28.8 pg Mean Corpuscular Hemoglobin Concent 31.0 g/dl Platelet Count 180 K/uL Mean Platelet Volume 9.2 fL Neutrophils (%) (Auto) 81.6 % Lymphocytes (%) (Auto) 4.4 % Monocytes (%) (Auto) 13.3 % Eosinophils (%) (Auto) 0.2 % Basophils (%) (Auto) 0.2 % Neutrophils # (Auto) 7.84 K/uL Lymphocytes # (Auto) 0.42 K/uL Monocytes # (Auto) 1.28 K/uL Eosinophils # (Auto) 0.02 K/uL Basophils # (Auto) 0.02 K/uL RDW Standard Deviation 68.4 fL RDW Coefficient of Variation 20.0 % Immature Granulocyte % (Auto) 0.3 % Immature Granulocyte # (Auto) 0.03 K/uL Assessment and Plan This pt is a 77yo female with a very complex medical h/o cor pulmonale/chronic diastolic CHF, chronic rt pleural effusion with PleurX catheter, CKD stage IIIB/ IV, DMII, COPD, 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 1. RLE cat bite cellulitis/Bacteremia/Sepsis POA- CT w/o gas, but with significant subcutaneous edema, no obvious abscess formation. Patient febrile at 39.2, slightly tachypneic at 23bpm on on admission. No leukocytosis, lactate = 1.57. She has multiple allergies to antibiotics including Doxycycline, Levaquin/Moxifloxacin, Sulfamethoxazole and PCNs - difficult as these agents are typically first line for cat bite GNR in blood may end up being Pasteurella which she has had before from a cat bite -continue Imipenem renally dosed -ID consultation, appreciate assistance with antibiotic management -repeat BCxs today to ensure sterile -will need PICC most likely for correction treatment x 2 weeks after dc given inability to tolerate any po antibiotics due to allergies 2. Acute on Chronic Diastolic CHF/Pulmonary HTN/Permanent atrial fibrillation/ Heart block with single-chamber permanent pacemaker, last generator change 2008 - is volume overloaded now, increased drainage from PleurX than previous, worsening swelling. Received I L IVFs in ER and then IV abx -restarting Bumex 1mg IV bid -continue to hold spironolactone for ROSELYN -continue digoxin-level good -continue low Na+ diet -daily weights, I/Os -eventually needs generator changeout on pacer but not while bacteremic-Cardio to check battery life tomorrow -on coumadin for A-fib-INR 4/0 today due to volume overload and holding diuretics--> d/w Dr. Araujo who knows her very well--> if restarting diuretics , then INR will come down-hold coumadin today and follow INR in AM 3. ROSELYN in setting of CKD Stage IV/Hyponatremia/Hyperkalemia/Non AG Metabolic acidosis - patient with Cr of 2.76 today, baseline of 2.2. HCO3 19, K+ 5.3, Na+ 130 All secondary to renal failure worsening Appreciate Nephro management -restarting Bumex 1mg IV bid -holding aldactone -may need to accept some uremia to achieve good volume status -pt would not want HD 4. DMII, on correction insulin - glucose well controlled here. Last HgbA1C 6.6% in 01/2017 -continue Lantus 10 units BID -continue Novolog SS -check HgbA1C in AM 5. COPD - patient with stable COPD -Continue Singulair, Vickie, DuoNeb PRN 6. Mechanical mitral valve in situ - ball and cage, on chronic coumadin -INR high today at 4.0 -holding coumadin today -Monitor daily INR 7. Hypothyroidism - TSH here normal at 2.12 -Continue Synthroid 8. Hypertension - acceptable to mildly low -Continue to monitor --Continue Hydralazine, Metoprolol, bumex 9. HLP - stable, chronic -Continue gemfibrozil and Zetia 10. Anemia - of iron deficiency and chronic kidney disease. Has received 5 IV Venofer treatments and was supposed to receive a 6th one today. Hgb dropped today possibly due to some hemodilution, down to 7.4 and on repeat check was up a bit to 7.9 from baseline 8-9 -gave IV Venofer 100mg IV x 1 now Proph-coumadin Code - DNR/DNI, would not want vasopressors, hemodialysis, or more aggressive care as per discussion with patient Dispo - continued hospital stay for IV abx
[2017-10-16 13:15] LABS: CALCIUM 7.9 mg/dl (8.5-10.1); CREATININE 2.75 mg/dl (0.60-1.20); POTASSIUM 5.1 mmol/L (3.5-5.1)
[2017-10-16 13:43] VITALS: O2SAT 98
[2017-10-16 13:50] VITALS: O2SAT 98
[2017-10-16 15:05] VITALS: BP 122/54; PULSE 96; TEMP 36.6; O2SAT 97
--- NOTE | 2017-10-16 15:11 | Cardiology Consultation ---
Cardiology Consultation Date of Consultation: Oct 16, 2017. Requesting Physician: Kj Reason for Consultation: Congestive heart failure Pt evaluation today including: conversation w/ patient, physical exam, chart review, lab review, review of studies, conversation w/ attending History of Present Illness The patient is a 77-year-old woman with a complex medical history to include valvular heart disease, permanent atrial fibrillation, heart block and cor pulmonale who was admitted to [facility] after she suffered a cat bite to her leg. Patient states that she has been doing quite well from a health standpoint recently. In the past she has struggled with edema and breathing difficulty. However, over the past few months he has been very stable with a PleurX catheter and a diuretic regimen. Two nights ago she did suffer a minor bite from her CT. That evening she began to experience symptoms of infection such as rigors and fever. Her leg also began to be painful. As result she sought medical attention. In the emergency room she was noted to be hypoxic but was felt to have an element of hypovolemia. She was administered some fluids and admitted to the hospital for treatment of suspected leg infection. She was subsequently diagnosed with cellulitis and is on antibiotic therapy. Patient states that overall her breathing has been quite good. For the past 4 months she has not suffered with limiting dyspnea. She is limited in activity due to her lower extremity edema and overall fatigue. She also suffers from chronic anemia and has limited stamina. However, she does not appear to be limited by significant breathing difficulty. She denies any dizziness or lightheadedness. She reports chronic lower extremity edema which is slightly worse over the past few days. She monitors her weight closely at home and reports this being quite stable. She is compliant with a low-sodium diet. She has a PleurX catheter drained on a daily basis by visiting aide. She has not been aware of any palpitations. She denies any abdominal bloating. 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 Permanent atrial fibrillation Heart block with single-chamber permanent pacemaker, last generator change 2008 Left ventricular hypertrophy Hypertension Hypercholesterolemia new 9 nonobstructive coronary artery disease Stage IV renal insufficiency History of CVA Pulmonary hypertension with cor pulmonale Chronic pleural effusion status post PleurX catheter Diabetes mellitus with associated neuropathy Crohn's disease Breast cancer Past surgical history: Left breast lumpectomy and lymph node dissection Cholecystectomy Hysterectomy Placement of PleurX catheter Mitral valve replacement Wrist arthroscopy Family History Cancer Diabetes mellitus Heart disease Hypertension Lung disease Noncontributory given her advanced age and current comorbidities Social History Smoking Status: Never Smoker History of Alcohol Use: No Lives on a farm currently at [facility] with dementia Review of Systems Per HPI. All Other Systems: Reviewed and Negative Allergies Coded Allergies: Penicillins (Verified Allergy, Severe, anaphylaxis 30yrs ago, also broke out with sores, 10/15/17) NOTE: Timentin 05/2003 tolerated without problem Diltiazem (Verified Allergy, Unknown, unknown, 10/15/17) Levofloxacin (Verified Allergy, Unknown, UNKNOWN, 10/15/17) Moxifloxacin (Verified Allergy, Unknown, UNKNOWN, 10/15/17) Aspirin (Verified Adverse Reaction, Intermediate, increased bleeding (on warfarin), 10/15/17) Doxycycline (Verified Adverse Reaction, Intermediate, GI SYMPTOMS, 10/15/17) Atorvastatin (Verified Adverse Reaction, Unknown, & Crestor = muscle aches /pains, 10/15/17) NSAIDs (Verified Adverse Reaction, Unknown, AVOID PER DR. HICKS - [id number] , 10/15/17) Nortriptyline (Verified Adverse Reaction, Unknown, choking on food, 10/15/17 ) Quinidine (Verified Adverse Reaction, Unknown, flu-like symptoms, 10/15/17) Sulfamethoxazole w/Trimethoprim (Verified Adverse Reaction, Unknown, CONFUSION, 10/15/17) Medications Current Inpatient Medications Medications (Trade) Dose Ordered Sig/Albin Route Start Time Stop Time Status Last Admin Dose Admin Acetaminophen (Tylenol Tab) 650 mg Q4H PRN PO 10/15/17 03:30 11/14/17 03:29 Ondansetron HCl (Zofran Inj) 4 mg Q6H PRN IV 10/15/17 03:30 11/14/17 03:29 Insulin Glargine (Lantus Solostar Pen) 10 units Q12 SC 10/15/17 09:00 11/14/17 08:59 10/16/17 08:30 10 UNITS Insulin Aspart (novoLOG ASPART) SLIDING SCALE If C... ACHS SC 10/15/17 06:30 11/14/17 06:59 10/16/17 12:27 5 UNITS Glucose (Glucose 40% Gel) 15-30 GRAMS 15 GRAMS... UD PRN PO 10/15/17 03:30 11/14/17 03:29 Glucose (Glucose Chew Tab) 4-8 Tablets 4 Tabl... UD PRN PO 10/15/17 03:30 11/14/17 03:29 Dextrose (Dextrose 50% 50ML Syringe) 25-50ML 25ML FOR ... UD PRN IV 10/15/17 03:30 11/14/17 03:29 Glucagon (Glucagon Inj) 1 mg UD PRN SQ 10/15/17 03:30 11/14/17 03:29 Carbohydrates (Carbohydrates For Hypoglycemia) 15-30 GRAMS 15 grams if BSG 54-69... UD PRN PO 10/15/17 03:30 11/14/17 03:29 Diazepam (Valium Tab) 5 mg HS PO 10/15/17 21:00 11/14/17 20:59 10/15/17 21:34 5 MG Digoxin (Lanoxin Tab) 0.125 mg DAILY@1600 PO 10/15/17 16:00 11/14/17 15:59 10/15/17 16:01 0.125 MG EZETIMIBE (Zetia Tab) 10 mg HS PO 10/15/17 21:00 11/14/17 20:59 10/15/17 21:22 10 MG Fexofenadine HCl (Vickie Tab) 180 mg QAM PO 10/15/17 09:00 11/14/17 08:59 10/16/17 08:38 180 MG Gemfibrozil (Lopid Tab) 600 mg BID PO 10/15/17 09:00 11/14/17 08:59 10/16/17 08:35 600 MG Hydralazine HCl (Apresoline Tab) 25 mg BID PO 10/15/17 09:00 11/14/17 08:59 10/16/17 08:35 25 MG Levothyroxine Sodium (Synthroid Tab) 175 mcg DAILYBB PO 10/15/17 06:30 11/14/17 06:59 10/16/17 05:56 175 MCG Metoprolol Succinate (Toprol Xl Tab) 100 mg DAILY PO 10/15/17 09:00 11/14/17 08:59 10/16/17 08:38 100 MG Montelukast Sodium (Singulair Tab) 10 mg QAM PO 10/15/17 09:00 11/14/17 08:59 10/16/17 08:36 10 MG Warfarin Sodium (Coumadin Tab) 3 mg DAILY@1600 PO 10/15/17 16:00 11/14/17 15:59 Future Hold 10/15/17 15:59 3 MG Miscellaneous Information (Order Awaiting Action) 1 ea QS N/A 10/15/17 08:00 11/14/17 07:59 Imipenem/ Cilastatin Sodium 200 mg/Dextrose 108 ml @ 100 mls/hr Q6H IV 10/15/17 08:00 10/25/17 07:59 10/16/17 14:29 100 MLS/HR Albuterol/ Ipratropium (Duoneb) 3 ml Q4R PRN INH 10/15/17 04:15 11/14/17 04:14 Imipenem/ Cilastatin Sodium (Consult) 1 ea UD PRN N/A 10/15/17 04:30 11/14/17 04:29 Lactulose (Chronulac Syrup) 15 gm QAM PO 10/16/17 09:00 11/15/17 08:59 10/16/17 08:40 15 GM Pyridoxine HCl (Vitamin B-6 Tab) 100 mg QAM PO 10/16/17 09:00 11/15/17 08:59 10/16/17 08:39 100 MG Cholecalciferol (Vitamin D Tab) 1,000 inter.unit TID PO 10/15/17 21:00 11/14/17 20:59 10/16/17 14:06 1,000 INTER.UNIT Physical Exam Vital Signs Past 12 Hours Date Time Temp Pulse Resp B/P (MAP) Pulse Ox O2 Delivery O2 Flow Rate FiO2 10/16/17 13:43 98 Room Air 10/16/17 08:38 64 10/16/17 08:00 Nasal Cannula 2.0 10/16/17 07:02 36.9 59 16 103/43 (63) 95 Room Air She is alert and oriented x3. Mood affect appear normal. She answered all questions appropriately. HEENT: Sclerae are anicteric. Pupils are equal and reactive to light and accommodation. Extraocular movements were intact. Neuro: Cranial nerves intact Neck: Examination of the submandibular region did not reveal any significant lymphadenopathy. Carotids are palpable bilaterally and free of bruits on auscultation. There was no evidence of jugular venous distention, but she was sitting upright. The thyroid was not enlarged. Lungs: Some occasional crackles in the right base. There are no rales wheezes or rhonchi. She has normal respiratory effort without use of accessory muscles. There is normal pulmonary excursion. Cardiac: The rhythm was regular. S1 was normal and there was a split S2. Holodiastolic murmur. The PMI was not markedly displaced on palpation. Abdomen: The abdomen was soft and nontender. Mildly distended. Extremities: Patient has bilateral radial pulses that are equal in intensity. There is no evidence cyanosis or clubbing. Severe lower extremity edema which is tense. Abrasion on the right villareal and popliteal area. Skin: There are no rashes noted on examination today. Data Laboratory Results: Last 24 Hours Test 10/15/17 16:36 10/15/17 20:27 10/16/17 05:47 10/16/17 07:28 Bedside Glucose 107 mg/dl 145 mg/dl 164 mg/dl White Blood Count 10.79 K/uL Red Blood Count 2.58 M/uL Hemoglobin 7.4 g/dL Hematocrit 24.4 % Mean Corpuscular Volume 94.6 fL Mean Corpuscular Hemoglobin 28.7 pg Mean Corpuscular Hemoglobin Concent 30.3 g/dl Platelet Count 169 K/uL Mean Platelet Volume 9.9 fL Neutrophils (%) (Auto) 78.9 % Lymphocytes (%) (Auto) 4.8 % Monocytes (%) (Auto) 14.7 % Eosinophils (%) (Auto) 0.7 % Basophils (%) (Auto) 0.3 % Neutrophils # (Auto) 8.51 K/uL Lymphocytes # (Auto) 0.52 K/uL Monocytes # (Auto) 1.59 K/uL Eosinophils # (Auto) 0.08 K/uL Basophils # (Auto) 0.03 K/uL RDW Standard Deviation 69.8 fL RDW Coefficient of Variation 20.2 % Immature Granulocyte % (Auto) 0.6 % Immature Granulocyte # (Auto) 0.06 K/uL Anisocytosis PRESENT Spherocytes OCCASIONAL Echinocytes 1+ Prothrombin Time 42.0 SECONDS Prothromb Time International Ratio 4.1 Sodium Level 130 mmol/L Potassium Level 5.3 mmol/L Chloride Level 101 mmol/L Carbon Dioxide Level 19 mmol/L Anion Gap 10.0 mmol/L Blood Urea Nitrogen 75 mg/dl Creatinine 2.76 mg/dl Est Creatinine Clear Calc Drug Dose 16.6 ml/min Estimated GFR () 18.7 Estimated GFR (Non- 16.1 BUN/Creatinine Ratio 27.1 Random Glucose 148 mg/dl Calcium Level 7.8 mg/dl Thyroid Stimulating Hormone (TSH) 2.120 uIu/ml Test 10/16/17 08:36 10/16/17 09:55 10/16/17 11:34 10/16/17 12:15 Osmolality 300 mOsm/kg Urine Osmolality 317 mOms/kg Urine Random Sodium 8 mEq/L Bedside Glucose 227 mg/dl White Blood Count 9.61 K/uL Red Blood Count 2.74 M/uL Hemoglobin 7.9 g/dL Hematocrit 25.5 % Mean Corpuscular Volume 93.1 fL Mean Corpuscular Hemoglobin 28.8 pg Mean Corpuscular Hemoglobin Concent 31.0 g/dl Platelet Count 180 K/uL Mean Platelet Volume 9.2 fL Neutrophils (%) (Auto) 81.6 % Lymphocytes (%) (Auto) 4.4 % Monocytes (%) (Auto) 13.3 % Eosinophils (%) (Auto) 0.2 % Basophils (%) (Auto) 0.2 % Neutrophils # (Auto) 7.84 K/uL Lymphocytes # (Auto) 0.42 K/uL Monocytes # (Auto) 1.28 K/uL Eosinophils # (Auto) 0.02 K/uL Basophils # (Auto) 0.02 K/uL RDW Standard Deviation 68.4 fL RDW Coefficient of Variation 20.0 % Immature Granulocyte % (Auto) 0.3 % Immature Granulocyte # (Auto) 0.03 K/uL Spherocytes OCCASIONAL Echinocytes 1+ Sodium Level 128 mmol/L Potassium Level 5.1 mmol/L Chloride Level 99 mmol/L Carbon Dioxide Level 20 mmol/L Anion Gap 9.0 mmol/L Blood Urea Nitrogen 75 mg/dl Creatinine 2.75 mg/dl Est Creatinine Clear Calc Drug Dose 16.7 ml/min Estimated GFR () 18.8 Estimated GFR (Non- 16.2 BUN/Creatinine Ratio 27.4 Random Glucose 176 mg/dl Calcium Level 7.9 mg/dl Imaging: Imaging of lower extremity suggested peripheral edema without evidence of DVT. Exam is consistent with cellulitis. Chest x-ray demonstrated vascular congestion, cardiomegaly and a pacemaker. Small pleural effusions. EKG: Atrial fibrillation with demand ventricular pacing and occasional PVCs Assessment & Plan 1. Cor pulmonale: Patient has long history of cor pulmonale and edema. Her lower extremities may be slightly worse than baseline but she does not complain of other edema or increasing abdominal girth which has been a common presentation for volume overload in the past. Her diuretics were temporarily discontinued due to concerns over declining renal function. However, this would be the primary therapy for her volume overload. She also suffers from renal insufficiency and an element of cirrhosis which could contribute to edema as well. I do not think there are additional options for therapy in this case. We may need to except a decline in renal function in order to maintain euvolemia. It should be noted that she is not interested in dialysis at this point. If her renal function continues to decline in escalating doses of diuretics are required to maintain a good volume status, she may need to be referred for a palliative care consult. 2. Valvular heart disease: Patient has a ball and cage valve that appears to be functioning well. Her gradients last measured few months ago appeared normal for this valve. I do not believe she has had a acute change in her cardiac status. Lung examination is relatively benign. At this point she is not a candidate for any valve procedure. Do not feel that reimaging is necessary. 3. Diastolic heart failure: Presumed. Permanent atrial fibrillation. Preserved LV systolic function. 4. Atrial fibrillation: Permanent. No difficulty with rate control. Patient is on digoxin. This may also have some benefit and right ventricular failure. However, with her declining renal function it would be reasonable to consider discontinuation of digoxin. She is anticoagulated both for her atrial fibrillation and her mechanical valve. 5. Heart block: Patient likely has an element of heart block. She paces in the ventricle nearly all of the time. Her device is reaching the elective replacement interval. We can interrogate the device while she is an inpatient. Replacement of the battery will be complicated by her current infection. She will have sufficient battery in the near future, and could easily be scheduled for a generator changes an outpatient once her infection has been adequately treated.
--- NOTE | 2017-10-16 15:16 | Nephrology Consultation ---
Nephrology Consultation Date & Providers Date of Consultation: Oct 16, 2017. Primary Care Provider: Phoenix Klein III, CRNP Referring Provider: Reason for Consultation Evaluation for acute kidney injury with history of chronic kidney disease. History of Present Illness Crystal Is a 77-year-old female with past medical history significant for stage 3B/4 chronic kidney disease, chronic congestive heart failure with pulmonary hypertension, admitted to the hospital with right lower extremity cellulitis and acute on chronic congestive heart failure. Nephrology consult was requested to manage acute kidney injury and management of diuretics dose. EMR records were reviewed in detail during patient's visit. Crystal presented to the emergency 10/14/17 after she had a cat bite in her right leg developed fever and chills. She also complain of having shortness of breath since the day prior and on admission she was saturating 88% on room air. She has been on Bumex 2 milligrams twice a day and spironolactone at home which she has been taking regularly. On admission she was found to right lower extremity cellulitis, bilateral lower extremity edema, pulmonary congestion and ROSELYN . Diuretics has been on hold since admission because of acute kidney injury. Crystal has history of pulmonary hypertension and right-sided heart failure, she has been on diuretics chronically. She has history of right-sided pleural effusion and had pleural catheter placed before but output has been minimum. Prior 2D echo showed elevated PA pressure and dilated IVC, EF 60-65%. History of mitral valve replacement before, on Coumadin, INR has been therapeutic. Has stage 3B/4 chronic kidney disease most likely secondary to cardiorenal syndrome type 2, baseline creatinine has been variable, around 2.0-2.2. Admission creatinine was 2.4 which slightly worsened to 2.8 today, potassium elevated 5.3. She has been getting progressively volume overloaded and complaining of mild shortness of breath. Has anemia of chronic disease. Recently getting IV iron completed for dose. Overall she continues to be volume overloaded with some SOB and concerned to get back to diuretics. Allergies Coded Allergies: Penicillins (Verified Allergy, Severe, anaphylaxis 30yrs ago, also broke out with sores, 10/15/17) NOTE: Timentin 05/2003 tolerated without problem Diltiazem (Verified Allergy, Unknown, unknown, 10/15/17) Levofloxacin (Verified Allergy, Unknown, UNKNOWN, 10/15/17) Moxifloxacin (Verified Allergy, Unknown, UNKNOWN, 10/15/17) Aspirin (Verified Adverse Reaction, Intermediate, increased bleeding (on warfarin), 10/15/17) Doxycycline (Verified Adverse Reaction, Intermediate, GI SYMPTOMS, 10/15/17) Atorvastatin (Verified Adverse Reaction, Unknown, & Crestor = muscle aches /pains, 10/15/17) NSAIDs (Verified Adverse Reaction, Unknown, AVOID PER DR. HICKS - [id number] , 10/15/17) Nortriptyline (Verified Adverse Reaction, Unknown, choking on food, 10/15/17 ) Quinidine (Verified Adverse Reaction, Unknown, flu-like symptoms, 10/15/17) Sulfamethoxazole w/Trimethoprim (Verified Adverse Reaction, Unknown, CONFUSION, 10/15/17) Inpatient Medications Current Inpatient Medications Medications (Trade) Dose Ordered Sig/Labin Route Start Time Stop Time Status Last Admin Dose Admin Acetaminophen (Tylenol Tab) 650 mg Q4H PRN PO 10/15/17 03:30 11/14/17 03:29 Ondansetron HCl (Zofran Inj) 4 mg Q6H PRN IV 10/15/17 03:30 11/14/17 03:29 Insulin Glargine (Lantus Solostar Pen) 10 units Q12 SC 10/15/17 09:00 11/14/17 08:59 10/16/17 08:30 10 UNITS Insulin Aspart (novoLOG ASPART) SLIDING SCALE If C... ACHS SC 10/15/17 06:30 11/14/17 06:59 10/16/17 08:30 5 UNITS Glucose (Glucose 40% Gel) 15-30 GRAMS 15 GRAMS... UD PRN PO 10/15/17 03:30 11/14/17 03:29 Glucose (Glucose Chew Tab) 4-8 Tablets 4 Tabl... UD PRN PO 10/15/17 03:30 11/14/17 03:29 Dextrose (Dextrose 50% 50ML Syringe) 25-50ML 25ML FOR ... UD PRN IV 10/15/17 03:30 11/14/17 03:29 Glucagon (Glucagon Inj) 1 mg UD PRN SQ 10/15/17 03:30 11/14/17 03:29 Carbohydrates (Carbohydrates For Hypoglycemia) 15-30 GRAMS 15 grams if BSG 54-69... UD PRN PO 10/15/17 03:30 11/14/17 03:29 Diazepam (Valium Tab) 5 mg HS PO 10/15/17 21:00 11/14/17 20:59 10/15/17 21:34 5 MG Digoxin (Lanoxin Tab) 0.125 mg DAILY@1600 PO 10/15/17 16:00 11/14/17 15:59 10/15/17 16:01 0.125 MG EZETIMIBE (Zetia Tab) 10 mg HS PO 10/15/17 21:00 11/14/17 20:59 10/15/17 21:22 10 MG Fexofenadine HCl (Vickie Tab) 180 mg QAM PO 10/15/17 09:00 11/14/17 08:59 10/16/17 08:38 180 MG Gemfibrozil (Lopid Tab) 600 mg BID PO 10/15/17 09:00 11/14/17 08:59 10/16/17 08:35 600 MG Hydralazine HCl (Apresoline Tab) 25 mg BID PO 10/15/17 09:00 11/14/17 08:59 10/16/17 08:35 25 MG Levothyroxine Sodium (Synthroid Tab) 175 mcg DAILYBB PO 10/15/17 06:30 11/14/17 06:59 10/16/17 05:56 175 MCG Metoprolol Succinate (Toprol Xl Tab) 100 mg DAILY PO 10/15/17 09:00 11/14/17 08:59 10/16/17 08:38 100 MG Montelukast Sodium (Singulair Tab) 10 mg QAM PO 10/15/17 09:00 11/14/17 08:59 10/16/17 08:36 10 MG Warfarin Sodium (Coumadin Tab) 3 mg DAILY@1600 PO 10/15/17 16:00 11/14/17 15:59 Future Hold 10/15/17 15:59 3 MG Miscellaneous Information (Order Awaiting Action) 1 ea QS N/A 10/15/17 08:00 11/14/17 07:59 Imipenem/ Cilastatin Sodium 200 mg/Dextrose 108 ml @ 100 mls/hr Q6H IV 10/15/17 08:00 10/25/17 07:59 8/2/18 08:44 100 MLS/HR Albuterol/ Ipratropium (Duoneb) 3 ml Q4R PRN INH 10/15/17 04:15 11/14/17 04:14 Imipenem/ Cilastatin Sodium (Consult) 1 ea UD PRN N/A 10/15/17 04:30 11/14/17 04:29 Lactulose (Chronulac Syrup) 15 gm QAM PO 10/16/17 09:00 11/15/17 08:59 10/16/17 08:40 15 GM Pyridoxine HCl (Vitamin B-6 Tab) 100 mg QAM PO 10/16/17 09:00 11/15/17 08:59 10/16/17 08:39 100 MG Cholecalciferol (Vitamin D Tab) 1,000 inter.unit TID PO 10/15/17 21:00 11/14/17 20:59 10/16/17 08:35 1,000 INTER.UNIT Family History Cancer Diabetes mellitus Heart disease Hypertension Lung disease Social History Smoking Status: Never Smoker Alcohol Use: none Drug Use: none Marital Status: Housing Status: lives with family Occupation: retired Review of Systems A complete review of systems was performed. Pertinent positives are noted above. All other systems are negative. Physical Exam Date Time Temp Pulse Resp B/P (MAP) Pulse Ox O2 Delivery O2 Flow Rate FiO2 10/16/17 08:38 64 10/16/17 08:00 Nasal Cannula 2.0 10/16/17 07:02 36.9 59 16 103/43 (63) 95 Room Air 10/15/17 23:18 36.9 65 16 110/46 (67) 99 Nasal Cannula 2.0 10/15/17 21:20 105/52 (69) 10/15/17 20:00 Nasal Cannula 2.0 10/15/17 18:43 37.6 62 28 104/47 (66) 95 Room Air 10/15/17 18:26 97 Room Air 10/15/17 16:01 66 10/15/17 16:00 Nasal Cannula 2.0 10/15/17 15:15 37.1 60 16 99/43 (61) 99 Room Air GENERAL: Elderly female AAA x 3, pleasant, healthy-appearing, not in any distress. HEENT: Atraumatic, normocephalic. NECK: Supple, no JVD, no carotid bruit appreciated. ENT: No sinus tenderness MOUTH and THROAT: Moist oral mucosa, no oral ulcer or pharyngeal erythema RESPIRATORY: Normal breathing efforts, has bilateral bases. CARDIOVASCULAR: S1, S2 normal, rate rhythm regular. ABDOMEN: Soft, nontender, positive bowel sound. MUSCULOSKELETAL: No CVA tenderness. No joint swelling, erythema or tenderness. Normal range of motion. SKIN: No skin rash EXTREMITY: 2+ tense right lower extremity edema and tenderness, skin break, oozing, 1+ left lower extremity edema, skin changes of chronic venous stasis NEURO: No gross focal neurological deficit, speech fluent. PSYCHIATRY: Normal mood and judgment Laboratory Results Last 24 Hours Test 10/15/17 11:30 10/15/17 16:36 10/15/17 20:27 10/16/17 05:47 Bedside Glucose 103 mg/dl 107 mg/dl 145 mg/dl White Blood Count 10.79 K/uL Red Blood Count 2.58 M/uL Hemoglobin 7.4 g/dL Hematocrit 24.4 % Mean Corpuscular Volume 94.6 fL Mean Corpuscular Hemoglobin 28.7 pg Mean Corpuscular Hemoglobin Concent 30.3 g/dl Platelet Count 169 K/uL Mean Platelet Volume 9.9 fL Neutrophils (%) (Auto) 78.9 % Lymphocytes (%) (Auto) 4.8 % Monocytes (%) (Auto) 14.7 % Eosinophils (%) (Auto) 0.7 % Basophils (%) (Auto) 0.3 % Neutrophils # (Auto) 8.51 K/uL Lymphocytes # (Auto) 0.52 K/uL Monocytes # (Auto) 1.59 K/uL Eosinophils # (Auto) 0.08 K/uL Basophils # (Auto) 0.03 K/uL RDW Standard Deviation 69.8 fL RDW Coefficient of Variation 20.2 % Immature Granulocyte % (Auto) 0.6 % Immature Granulocyte # (Auto) 0.06 K/uL Anisocytosis PRESENT Spherocytes OCCASIONAL Echinocytes 1+ Prothrombin Time 42.0 SECONDS Prothromb Time International Ratio 4.1 Sodium Level 130 mmol/L Potassium Level 5.3 mmol/L Chloride Level 101 mmol/L Carbon Dioxide Level 19 mmol/L Anion Gap 10.0 mmol/L Blood Urea Nitrogen 75 mg/dl Creatinine 2.76 mg/dl Est Creatinine Clear Calc Drug Dose 16.6 ml/min Estimated GFR () 18.7 Estimated GFR (Non- 16.1 BUN/Creatinine Ratio 27.1 Random Glucose 148 mg/dl Calcium Level 7.8 mg/dl Thyroid Stimulating Hormone (TSH) 2.120 uIu/ml Test 10/16/17 07:28 10/16/17 08:36 10/16/17 09:55 Bedside Glucose 164 mg/dl Osmolality 300 mOsm/kg Urine Osmolality 317 mOms/kg Urine Random Sodium 8 mEq/L Impression 77-year-old female with stage 3 chronic kidney disease secondary to cardiorenal syndrome type 2, chronic congestive heart failure with diastolic dysfunction and pulmonary hypertension, cirrhosis of liver with hepatic congestion, admitted to the hospital with right lower extremity swelling is catheterization by 10 acute on chronic congestive heart failure, volume overload with significant lower extremity edema. Baseline creatinine has been around 2-2.2, developed acute kidney injury with creatinine now peaked to 2.8 and has hyperkalemia . Initially diuretics on hold and now getting as needed received 1 dose yesterday. Recommendations --resume diuretic at Bumex 1 milligram IV twice a day, may need to increase dose with low GFR. --hold spironolactone, continue on renal diet --will monitor renal function and electrolyte closely. --will need to monitor her inpatient when switched to oral diuretics to decide on the appropriate dosing before discharge --to achieve euvolemia we may have to accept azotemia and worsening renal function --limit salt in diet --monitor renal function daily, check phosphate and magnesium every other day --hold IV iron now considering bacteremia --Epogen [id number] units x1 dose now --check phosphate Thank you for allowing me to participate in your patient's care. It was a pleasure to see Crystal
[2017-10-16] MEDS: DIGOXIN 0.125 MG TAB PO SCH (15:34)
[2017-10-16] MEDS ORDERED: EPOETIN ALFA 10,000 UNITS/ML VIAL SQ SCH (16:00)
[2017-10-16] MEDS ORDERED: IRON SUCROSE INJ 100 MG in SODIUM CHLORIDE 0.9% 100ML 100 ML IV ONE (16:30)
[2017-10-16] MEDS: BUMETANIDE IV 1 MG in SYRINGE 0 ML IV SCH (17:27)
--- NOTE | 2017-10-16 19:41 | Infectious Disease Progress Nt ---
Progress Note Date of Service Oct 16, 2017. Subjective Pt evaluation today including: conversation w/ patient, physical exam, chart review, lab review, review of studies, conversation w/ regional engagement consultant, review of inpatient medication list Continues to complaint of shortness of breath and swelling. Blood cultures now positive for gram-negative bacilli. Tolerating antibiotics without apparent difficulty All Other Systems: Reviewed and Negative Medications Current Inpatient Medications Medications (Trade) Dose Ordered Sig/Albin Route Start Time Stop Time Status Last Admin Dose Admin Acetaminophen (Tylenol Tab) 650 mg Q4H PRN PO 10/15/17 03:30 11/14/17 03:29 Ondansetron HCl (Zofran Inj) 4 mg Q6H PRN IV 10/15/17 03:30 11/14/17 03:29 Insulin Glargine (Lantus Solostar Pen) 10 units Q12 SC 10/15/17 09:00 11/14/17 08:59 10/16/17 08:30 10 UNITS Insulin Aspart (novoLOG ASPART) SLIDING SCALE If C... ACHS SC 10/15/17 06:30 11/14/17 06:59 10/16/17 16:30 6 UNITS Glucose (Glucose 40% Gel) 15-30 GRAMS 15 GRAMS... UD PRN PO 10/15/17 03:30 11/14/17 03:29 Glucose (Glucose Chew Tab) 4-8 Tablets 4 Tabl... UD PRN PO 10/15/17 03:30 11/14/17 03:29 Dextrose (Dextrose 50% 50ML Syringe) 25-50ML 25ML FOR ... UD PRN IV 10/15/17 03:30 11/14/17 03:29 Glucagon (Glucagon Inj) 1 mg UD PRN SQ 10/15/17 03:30 11/14/17 03:29 Carbohydrates (Carbohydrates For Hypoglycemia) 15-30 GRAMS 15 grams if BSG 54-69... UD PRN PO 10/15/17 03:30 11/14/17 03:29 Diazepam (Valium Tab) 5 mg HS PO 10/15/17 21:00 11/14/17 20:59 10/15/17 21:34 5 MG Digoxin (Lanoxin Tab) 0.125 mg DAILY@1600 PO 10/15/17 16:00 11/14/17 15:59 10/16/17 15:34 0.125 MG EZETIMIBE (Zetia Tab) 10 mg HS PO 10/15/17 21:00 11/14/17 20:59 10/15/17 21:22 10 MG Fexofenadine HCl (Vickie Tab) 180 mg QAM PO 10/15/17 09:00 11/14/17 08:59 10/16/17 08:38 180 MG Gemfibrozil (Lopid Tab) 600 mg BID PO 10/15/17 09:00 11/14/17 08:59 10/16/17 08:35 600 MG Hydralazine HCl (Apresoline Tab) 25 mg BID PO 10/15/17 09:00 11/14/17 08:59 10/16/17 08:35 25 MG Levothyroxine Sodium (Synthroid Tab) 175 mcg DAILYBB PO 10/15/17 06:30 11/14/17 06:59 10/16/17 05:56 175 MCG Metoprolol Succinate (Toprol Xl Tab) 100 mg DAILY PO 10/15/17 09:00 11/14/17 08:59 10/16/17 08:38 100 MG Montelukast Sodium (Singulair Tab) 10 mg QAM PO 10/15/17 09:00 11/14/17 08:59 10/16/17 08:36 10 MG Warfarin Sodium (Coumadin Tab) 3 mg DAILY@1600 PO 10/15/17 16:00 11/14/17 15:59 Future Hold 10/15/17 15:59 3 MG Miscellaneous Information (Order Awaiting Action) 1 ea QS N/A 10/15/17 08:00 11/14/17 07:59 Imipenem/ Cilastatin Sodium 200 mg/Dextrose 108 ml @ 100 mls/hr Q6H IV 10/15/17 08:00 10/25/17 07:59 10/16/17 14:29 100 MLS/HR Albuterol/ Ipratropium (Duoneb) 3 ml Q4R PRN INH 10/15/17 04:15 11/14/17 04:14 Imipenem/ Cilastatin Sodium (Consult) 1 ea UD PRN N/A 10/15/17 04:30 11/14/17 04:29 Lactulose (Chronulac Syrup) 15 gm QAM PO 10/16/17 09:00 11/15/17 08:59 10/16/17 08:40 15 GM Pyridoxine HCl (Vitamin B-6 Tab) 100 mg QAM PO 10/16/17 09:00 11/15/17 08:59 10/16/17 08:39 100 MG Cholecalciferol (Vitamin D Tab) 1,000 inter.unit TID PO 10/15/17 21:00 11/14/17 20:59 10/16/17 14:06 1,000 INTER.UNIT Epoetin Breezy (Procrit Inj) 10,000 units TODAY@1600 SQ 10/16/17 16:00 10/16/17 21:00 Bumetanide 1 mg/ Syringe 4 ml @ 4 mls/min BID@0900,1700 IV 10/16/17 17:00 11/15/17 16:59 10/16/17 17:27 4 MLS/MIN Objective Vital Signs Date Time Temp Pulse Resp B/P (MAP) Pulse Ox O2 Delivery O2 Flow Rate FiO2 10/16/17 16:00 Room Air 10/16/17 15:34 88 10/16/17 15:05 36.6 96 18 122/54 (76) 97 Room Air 10/16/17 13:50 98 10/16/17 13:43 98 Room Air 10/16/17 08:38 64 10/16/17 08:00 Nasal Cannula 2.0 10/16/17 07:02 36.9 59 16 103/43 (63) 95 Room Air 10/15/17 23:18 36.9 65 16 110/46 (67) 99 Nasal Cannula 2.0 10/15/17 21:20 105/52 (69) 10/15/17 20:00 Nasal Cannula 2.0 Physical Exam General Appearance: WD/WN, no apparent distress Eyes: normal inspection, EOMI, sclerae normal ENT: normal ENT inspection, hearing grossly normal, pharynx normal Neck: supple, no adenopathy, thyroid normal, trachea midline Respiratory/Chest: chest non-tender, lungs clear, normal breath sounds, no respiratory distress Cardiovascular: regular rate, rhythm, no gallop, no murmur Abdomen: normal bowel sounds, non tender, soft, no organomegaly Extremities: normal capillary refill, + inflammation (Right leg improved), + swelling (Right leg improved) Neurologic/Psychiatric: alert, oriented x 3 Skin: normal color, no rash, + pertinent finding (Slightly improved right leg erythema) Lymphatic: no adenopathy Laboratory Results Date/Time Source Procedure Growth Status 10/16/17 12:47 Blood Blood Culture Pending Received 10/16/17 12:38 Blood Blood Culture Pending Received Last 24 Hours Test 10/15/17 20:27 10/16/17 05:47 10/16/17 07:28 10/16/17 08:36 Bedside Glucose 145 mg/dl 164 mg/dl White Blood Count 10.79 K/uL Red Blood Count 2.58 M/uL Hemoglobin 7.4 g/dL Hematocrit 24.4 % Mean Corpuscular Volume 94.6 fL Mean Corpuscular Hemoglobin 28.7 pg Mean Corpuscular Hemoglobin Concent 30.3 g/dl Platelet Count 169 K/uL Mean Platelet Volume 9.9 fL Neutrophils (%) (Auto) 78.9 % Lymphocytes (%) (Auto) 4.8 % Monocytes (%) (Auto) 14.7 % Eosinophils (%) (Auto) 0.7 % Basophils (%) (Auto) 0.3 % Neutrophils # (Auto) 8.51 K/uL Lymphocytes # (Auto) 0.52 K/uL Monocytes # (Auto) 1.59 K/uL Eosinophils # (Auto) 0.08 K/uL Basophils # (Auto) 0.03 K/uL RDW Standard Deviation 69.8 fL RDW Coefficient of Variation 20.2 % Immature Granulocyte % (Auto) 0.6 % Immature Granulocyte # (Auto) 0.06 K/uL Anisocytosis PRESENT Spherocytes OCCASIONAL Echinocytes 1+ Prothrombin Time 42.0 SECONDS Prothromb Time International Ratio 4.1 Sodium Level 130 mmol/L Potassium Level 5.3 mmol/L Chloride Level 101 mmol/L Carbon Dioxide Level 19 mmol/L Anion Gap 10.0 mmol/L Blood Urea Nitrogen 75 mg/dl Creatinine 2.76 mg/dl Est Creatinine Clear Calc Drug Dose 16.6 ml/min Estimated GFR () 18.7 Estimated GFR (Non- 16.1 BUN/Creatinine Ratio 27.1 Random Glucose 148 mg/dl Calcium Level 7.8 mg/dl Thyroid Stimulating Hormone (TSH) 2.120 uIu/ml Osmolality 300 mOsm/kg Test 10/16/17 09:55 10/16/17 11:34 10/16/17 12:15 10/16/17 16:43 Urine Osmolality 317 mOms/kg Urine Random Sodium 8 mEq/L Bedside Glucose 227 mg/dl 167 mg/dl White Blood Count 9.61 K/uL Red Blood Count 2.74 M/uL Hemoglobin 7.9 g/dL Hematocrit 25.5 % Mean Corpuscular Volume 93.1 fL Mean Corpuscular Hemoglobin 28.8 pg Mean Corpuscular Hemoglobin Concent 31.0 g/dl Platelet Count 180 K/uL Mean Platelet Volume 9.2 fL Neutrophils (%) (Auto) 81.6 % Lymphocytes (%) (Auto) 4.4 % Monocytes (%) (Auto) 13.3 % Eosinophils (%) (Auto) 0.2 % Basophils (%) (Auto) 0.2 % Neutrophils # (Auto) 7.84 K/uL Lymphocytes # (Auto) 0.42 K/uL Monocytes # (Auto) 1.28 K/uL Eosinophils # (Auto) 0.02 K/uL Basophils # (Auto) 0.02 K/uL RDW Standard Deviation 68.4 fL RDW Coefficient of Variation 20.0 % Immature Granulocyte % (Auto) 0.3 % Immature Granulocyte # (Auto) 0.03 K/uL Spherocytes OCCASIONAL Echinocytes 1+ Sodium Level 128 mmol/L Potassium Level 5.1 mmol/L Chloride Level 99 mmol/L Carbon Dioxide Level 20 mmol/L Anion Gap 9.0 mmol/L Blood Urea Nitrogen 75 mg/dl Creatinine 2.75 mg/dl Est Creatinine Clear Calc Drug Dose 16.7 ml/min Estimated GFR () 18.8 Estimated GFR (Non- 16.2 BUN/Creatinine Ratio 27.4 Random Glucose 176 mg/dl Calcium Level 7.9 mg/dl Assessment and Plan Gram-negative sepsis most likely from right leg cellulitis from cat bite, suspect pasteurella. Given multiple antibiotic allergies, imipenem appropriate for now, may change to IV ertapenem in next day or so to allow outpatient treatment as patient unable to take usual oral antibiotics for cat bite associated infection. Will follow.
[2017-10-16] MEDS: EZETIMIBE 10MG TAB PO SCH (21:37)
[2017-10-16] MEDS: DIAZEPAM 5MG TAB PO SCH (21:45)
[2017-10-16 23:52] VITALS: BP 106/55; PULSE 70; TEMP 38; O2SAT 93
[2017-10-17] VITALS (10 sets, daily range): BP systolic 109–126; BP diastolic 55–62; PULSE 61–79; TEMP 36.6–37.5; O2SAT 95–98
[2017-10-17] MEDS: IMIPENEM-CILASTATIN 200 MG in DEXTROSE 5% 100ML 100 ML IV SCH ×4 (01:44→21:49)
[2017-10-17] MEDS: LEVOTHYROXINE 175 MCG TAB PO SCH (05:35)
[2017-10-17 07:10] LABS: BASO % 0.1 %; BASO ABS # 0.01 K/uL (0-0.2); EOS % 0.1 %; EOS ABS # 0.01 K/uL (0-0.5); HEMATOCRIT 24.4 % (37-47); HEMOGLOBIN 7.6 g/dL (12.0-16.0); IG# 0.01 K/uL (0.00-0.02); LYMPH % 7.9 %; LYMPH ABS # 0.69 K/uL (1.2-3.4); MEAN CORPUSCULAR HEMOGLOBIN 28.4 pg (25-34); MEAN CORPUSCULAR HGB CONC 31.1 g/dl (32-36); MEAN PLATELET VOLUME 9.8 fL (7.4-10.4); MONO % 13.2 %; MONO ABS # 1.16 K/uL (0.11-0.59); NEUT % 78.6 %; NEUT ABS # 6.89 K/uL (1.4-6.5); PLATELET COUNT 189 K/uL (130-400); RED CELL DISTRIBUTION WIDTH CV 19.5 % (11.5-14.5); RED CELL DISTRIBUTION WIDTH SD 64.4 fL (36.4-46.3); WHITE BLOOD COUNT 8.77 K/uL (4.8-10.8)
[2017-10-17 07:16] LABS: INR 2.5 (0.9-1.1)
[2017-10-17] MEDS: TROSPIUM~ORDER AWAITING ACTION SCH ×4 (07:21→23:41)
[2017-10-17 07:42] LABS: CALCIUM 7.9 mg/dl (8.5-10.1); CREATININE 2.66 mg/dl (0.60-1.20); PHOSPHORUS 5.1 mg/dl (2.5-4.9); POTASSIUM 4.9 mmol/L (3.5-5.1)
[2017-10-17] MEDS: GEMFIBROZIL 600 MG TAB PO SCH ×2 (08:11→21:53)
[2017-10-17] MEDS: CHOLECALCIFEROL 1000 INTER.UNIT TAB PO SCH ×3 (08:11→21:51)
[2017-10-17] MEDS: FEXOFENADINE HCL 180 MG TAB PO SCH (08:12)
[2017-10-17] MEDS: MONTELUKAST SOD 10 MG TAB PO SCH (08:12)
[2017-10-17] MEDS: METOPROLOL SUCC 50MG EXT REL TAB PO SCH (08:12)
[2017-10-17] MEDS: PYRIDOXINE HCL 50 MG TAB PO SCH (08:12)
[2017-10-17] MEDS: LACTULOSE SYRUP 30 GM/45 ML UDP PO SCH (08:13)
[2017-10-17 08:14] LABS: HEMOGLOBIN A1C 4.6 % (4.5-5.6)
[2017-10-17] MEDS: INSULIN ASPART 100 UNITS/ML 3 ML PEN SC SCH ×4 (08:46→21:35)
[2017-10-17] MEDS: INSULIN GLARGINE SOLOSTAR 100 UNITS/ML 3 ML PEN SC SCH ×2 (08:46→21:36)
[2017-10-17] MEDS: BUMETANIDE IV 1 MG in SYRINGE 0 ML IV SCH (08:51)
--- NOTE | 2017-10-17 09:55 | CARDIOLOGY PROGRESS NOTE ---
DATE: 10/17/2017 SUBJECTIVE: Mr. Morales is resting comfortably in the bedside chair without complaints of chest pain or dyspnea. OBJECTIVE: VITAL SIGNS: Blood pressure is 117/55 with an irregular pulse of 60. Respiratory rate is 18. The patient is afebrile at 36.6 degrees Celsius with saturations 96% on room air. NECK: Supple with full carotid upstrokes. No obvious bruits. Jugular venous pressure is flat at 90 degrees. No thyromegaly. CARDIOVASCULAR: Reveals a regular rhythm with a 2/6 diastolic murmur heard along the left sternal border and at the apex. LUNGS: Clear without rales, rhonchi, or wheeze. ABDOMEN: Obese without bruits. EXTREMITIES: Reveal tense lower extremity edema. DATA: CBC notes hemoglobin of 7.6, hematocrit 24.4, white count 8.77, platelet count 189,000. Electrolytes note a sodium of 129, potassium 4.9, chloride 99, bicarbonate 19, BUN 83, creatinine 2.66. INR is 2.5. CARDIAC MEDICATIONS: 1. Bumex 1 mg IV b.i.d. 2. Metoprolol succinate 100 mg daily. 3. Hydralazine 25 mg b.i.d. 4. Digoxin 0.125 mg daily. 5. Zetia 10 mg per day. 6. Lopid 600 mg b.i.d. IMPRESSION AND PLAN: 1. Right-sided congestive heart failure -- patient's intravenous diuretics restarted yesterday. Fortunately, leading up to this hospitalization, the patient's weight had been stable at home. 2. Cor pulmonale -- with significant pulmonary hypertension and [id number] tricuspid regurgitation. 3. Permanent atrial fibrillation. 4. Nonobstructive coronary artery disease -- quiescent. 5. Mitral valve replacement -- Dowd-Lee prosthesis placed in 1985. 6. 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 Generator change in 2008. Battery is approaching end of life. We will have an interrogation performed today. 7. Chronic pleural effusion -- with PleurX catheter in place. 8. Hypertension -- with severe left ventricular hypertrophy. 9. Hypercholesterolemia.
[2017-10-17] MEDS ORDERED: CHOLESTYRAMINE LIGHT 4 GM PKT PO ONE (10:17)
--- NOTE | 2017-10-17 10:40 | Nephrology Progress Note ---
Nephrology Progress Note Date of Service Oct 17, 2017. Chief Complaint ROSELYN / CKD Subjective Mrs. Morales was seen & examined in her hospital room this morning. She had a fever overnight but reports that her RLE cellulitis is improved. She has less discomfort and reports brisk UO in response to IV diuretic therapy. Review of Systems Constitutional: + fever Cardiovascular: No chest pain Respiratory: No dyspnea at rest Abdomen: No pain, No nausea, No vomiting Extremities: + leg edema A complete review of systems was performed. Pertinent positives are noted above. All other systems are negative. Vital Signs Last 8 Hrs Date Time Temp Pulse Resp B/P (MAP) Pulse Ox O2 Delivery O2 Flow Rate FiO2 10/17/17 08:31 36.6 61 20 117/55 (75) 96 Last Recorded Weight Weight (Kilograms): 74.300 Physical Exam General Appearance: no apparent distress Head: normocephalic Eyes: PERRL, EOMI Neck: no adenopathy Respiratory/Chest: lungs clear, no respiratory distress Cardiovascular: + irregularly irregular Abdomen/GI: normal bowel sounds, non tender, soft Extremities/Musculoskelatal: + swelling (tense bilateral LE swelling) Neurologic/Psych: alert, oriented x 3 Family History Cancer Diabetes mellitus Heart disease Hypertension Lung disease Social History Smoking Status: Never smoker Alcohol Use: none Drug Use: none Marital Status: Housing Status: lives with family Occupation: retired Laboratory Results Past 24 Hours 10/16/17 12:15 Red Blood Count 2.74, Mean Corpuscular Volume 93.1, Mean Corpuscular Hemoglobin 28.8, Mean Corpuscular Hemoglobin Concent 31.0, Mean Platelet Volume 9.2, Neutrophils (%) (Auto) 81.6, Lymphocytes (%) (Auto) 4.4, Monocytes (%) (Auto) 13.3, Eosinophils (%) (Auto) 0.2, Basophils (%) (Auto) 0.2, Neutrophils # (Auto ) 7.84, Lymphocytes # (Auto) 0.42, Monocytes # (Auto) 1.28, Eosinophils # (Auto ) 0.02, Basophils # (Auto) 0.02 10/17/17 06:51 Red Blood Count 2.68, Mean Corpuscular Volume 91.0, Mean Corpuscular Hemoglobin 28.4, Mean Corpuscular Hemoglobin Concent 31.1, Mean Platelet Volume 9.8, Neutrophils (%) (Auto) 78.6, Lymphocytes (%) (Auto) 7.9, Monocytes (%) (Auto) 13.2, Eosinophils (%) (Auto) 0.1, Basophils (%) (Auto) 0.1, Neutrophils # (Auto ) 6.89, Lymphocytes # (Auto) 0.69, Monocytes # (Auto) 1.16, Eosinophils # (Auto ) 0.01, Basophils # (Auto) 0.01 10/16/17 12:15 10/17/17 06:51 Test 10/16/17 11:34 10/16/17 12:15 10/16/17 16:43 10/16/17 19:52 Bedside Glucose 227 mg/dl (70-90) 167 mg/dl (70-90) 218 mg/dl (70-90) White Blood Count 9.61 K/uL (4.8-10.8) Red Blood Count 2.74 M/uL (4.2-5.4) Hemoglobin 7.9 g/dL (12.0-16.0) Hematocrit 25.5 % (37-47) Mean Corpuscular Volume 93.1 fL (80-100) Mean Corpuscular Hemoglobin 28.8 pg (25-34) Mean Corpuscular Hemoglobin Concent 31.0 g/dl (32-36) Platelet Count 180 K/uL (130-400) Mean Platelet Volume 9.2 fL (7.4-10.4) Neutrophils (%) (Auto) 81.6 % Lymphocytes (%) (Auto) 4.4 % Monocytes (%) (Auto) 13.3 % Eosinophils (%) (Auto) 0.2 % Basophils (%) (Auto) 0.2 % Neutrophils # (Auto) 7.84 K/uL (1.4-6.5) Lymphocytes # (Auto) 0.42 K/uL (1.2-3.4) Monocytes # (Auto) 1.28 K/uL (0.11-0.59) Eosinophils # (Auto) 0.02 K/uL (0-0.5) Basophils # (Auto) 0.02 K/uL (0-0.2) RDW Standard Deviation 68.4 fL (36.4-46.3) RDW Coefficient of Variation 20.0 % (11.5-14.5) Immature Granulocyte % (Auto) 0.3 % Immature Granulocyte # (Auto) 0.03 K/uL (0.00-0.02) Spherocytes OCCASIONAL Echinocytes 1+ Anion Gap 9.0 mmol/L (3-11) Est Creatinine Clear Calc Drug Dose 16.7 ml/min Estimated GFR () 18.8 Estimated GFR (Non- 16.2 BUN/Creatinine Ratio 27.4 (10-20) Calcium Level 7.9 mg/dl (8.5-10.1) Test 10/17/17 06:51 10/17/17 07:39 White Blood Count 8.77 K/uL (4.8-10.8) Red Blood Count 2.68 M/uL (4.2-5.4) Hemoglobin 7.6 g/dL (12.0-16.0) Hematocrit 24.4 % (37-47) Mean Corpuscular Volume 91.0 fL (80-100) Mean Corpuscular Hemoglobin 28.4 pg (25-34) Mean Corpuscular Hemoglobin Concent 31.1 g/dl (32-36) Platelet Count 189 K/uL (130-400) Mean Platelet Volume 9.8 fL (7.4-10.4) Neutrophils (%) (Auto) 78.6 % Lymphocytes (%) (Auto) 7.9 % Monocytes (%) (Auto) 13.2 % Eosinophils (%) (Auto) 0.1 % Basophils (%) (Auto) 0.1 % Neutrophils # (Auto) 6.89 K/uL (1.4-6.5) Lymphocytes # (Auto) 0.69 K/uL (1.2-3.4) Monocytes # (Auto) 1.16 K/uL (0.11-0.59) Eosinophils # (Auto) 0.01 K/uL (0-0.5) Basophils # (Auto) 0.01 K/uL (0-0.2) RDW Standard Deviation 64.4 fL (36.4-46.3) RDW Coefficient of Variation 19.5 % (11.5-14.5) Immature Granulocyte % (Auto) 0.1 % Immature Granulocyte # (Auto) 0.01 K/uL (0.00-0.02) Spherocytes OCCASIONAL Prothrombin Time 26.0 SECONDS (9.0-12.0) Prothromb Time International Ratio 2.5 (0.9-1.1) Anion Gap 9.0 mmol/L (3-11) Est Creatinine Clear Calc Drug Dose 17.2 ml/min Estimated GFR () 19.6 Estimated GFR (Non- 16.9 BUN/Creatinine Ratio 31.3 (10-20) Estimated Average Glucose 85 mg/dl Hemoglobin A1c 4.6 % (4.5-5.6) Calcium Level 7.9 mg/dl (8.5-10.1) Phosphorus Level 5.1 mg/dl (2.5-4.9) Magnesium Level 2.5 mg/dl (1.8-2.4) Bedside Glucose 147 mg/dl (70-90) Allergies Coded Allergies: Penicillins (Verified Allergy, Severe, anaphylaxis 30yrs ago, also broke out with sores, 10/15/17) NOTE: Timentin 05/2003 tolerated without problem Diltiazem (Verified Allergy, Unknown, unknown, 10/15/17) Levofloxacin (Verified Allergy, Unknown, UNKNOWN, 10/15/17) Moxifloxacin (Verified Allergy, Unknown, UNKNOWN, 10/15/17) Aspirin (Verified Adverse Reaction, Intermediate, increased bleeding (on warfarin), 10/15/17) Doxycycline (Verified Adverse Reaction, Intermediate, GI SYMPTOMS, 10/15/17) Atorvastatin (Verified Adverse Reaction, Unknown, & Crestor = muscle aches /pains, 10/15/17) NSAIDs (Verified Adverse Reaction, Unknown, AVOID PER DR. HICKS - [id number] , 10/15/17) Nortriptyline (Verified Adverse Reaction, Unknown, choking on food, 10/15/17 ) Quinidine (Verified Adverse Reaction, Unknown, flu-like symptoms, 10/15/17) Sulfamethoxazole w/Trimethoprim (Verified Adverse Reaction, Unknown, CONFUSION, 10/15/17) Medications Current Inpatient Medications Medications (Trade) Dose Ordered Sig/Albin Route Start Time Stop Time Status Last Admin Dose Admin Acetaminophen (Tylenol Tab) 650 mg Q4H PRN PO 10/15/17 03:30 11/14/17 03:29 10/17/17 03:16 650 MG Ondansetron HCl (Zofran Inj) 4 mg Q6H PRN IV 10/15/17 03:30 11/14/17 03:29 Insulin Glargine (Lantus Solostar Pen) 10 units Q12 SC 10/15/17 09:00 11/14/17 08:59 10/17/17 08:46 10 UNITS Insulin Aspart (novoLOG ASPART) SLIDING SCALE If C... ACHS SC 10/15/17 06:30 11/14/17 06:59 10/17/17 08:46 7 UNITS Glucose (Glucose 40% Gel) 15-30 GRAMS 15 GRAMS... UD PRN PO 10/15/17 03:30 11/14/17 03:29 Glucose (Glucose Chew Tab) 4-8 Tablets 4 Tabl... UD PRN PO 10/15/17 03:30 11/14/17 03:29 Dextrose (Dextrose 50% 50ML Syringe) 25-50ML 25ML FOR ... UD PRN IV 10/15/17 03:30 11/14/17 03:29 Glucagon (Glucagon Inj) 1 mg UD PRN SQ 10/15/17 03:30 11/14/17 03:29 Carbohydrates (Carbohydrates For Hypoglycemia) 15-30 GRAMS 15 grams if BSG 54-69... UD PRN PO 10/15/17 03:30 11/14/17 03:29 Diazepam (Valium Tab) 5 mg HS PO 10/15/17 21:00 11/14/17 20:59 10/16/17 21:45 5 MG Digoxin (Lanoxin Tab) 0.125 mg DAILY@1600 PO 10/15/17 16:00 11/14/17 15:59 10/16/17 15:34 0.125 MG EZETIMIBE (Zetia Tab) 10 mg HS PO 10/15/17 21:00 11/14/17 20:59 10/16/17 21:37 10 MG Fexofenadine HCl (Vickie Tab) 180 mg QAM PO 10/15/17 09:00 11/14/17 08:59 10/17/17 08:12 180 MG Gemfibrozil (Lopid Tab) 600 mg BID PO 10/15/17 09:00 11/14/17 08:59 10/17/17 08:11 600 MG Hydralazine HCl (Apresoline Tab) 25 mg BID PO 10/15/17 09:00 11/14/17 08:59 10/17/17 08:12 25 MG Levothyroxine Sodium (Synthroid Tab) 175 mcg DAILYBB PO 10/15/17 06:30 11/14/17 06:59 10/17/17 05:35 175 MCG Metoprolol Succinate (Toprol Xl Tab) 100 mg DAILY PO 10/15/17 09:00 11/14/17 08:59 10/17/17 08:12 100 MG Montelukast Sodium (Singulair Tab) 10 mg QAM PO 10/15/17 09:00 11/14/17 08:59 10/17/17 08:12 10 MG Warfarin Sodium (Coumadin Tab) 3 mg DAILY@1600 PO 10/15/17 16:00 11/14/17 15:59 Future hold 10/15/17 15:59 3 MG Miscellaneous Information (Order Awaiting Action) 1 ea QS N/A 10/15/17 08:00 11/14/17 07:59 Imipenem/ Cilastatin Sodium 200 mg/Dextrose 108 ml @ 100 mls/hr Q6H IV 10/15/17 08:00 10/25/17 07:59 10/17/17 08:13 100 MLS/HR Albuterol/ Ipratropium (Duoneb) 3 ml Q4R PRN INH 10/15/17 04:15 11/14/17 04:14 Imipenem/ Cilastatin Sodium (Consult) 1 ea UD PRN N/A 10/15/17 04:30 11/14/17 04:29 Lactulose (Chronulac Syrup) 15 gm QAM PO 10/16/17 09:00 11/15/17 08:59 10/17/17 08:13 15 GM Pyridoxine HCl (Vitamin B-6 Tab) 100 mg QAM PO 10/16/17 09:00 11/15/17 08:59 10/17/17 08:12 100 MG Cholecalciferol (Vitamin D Tab) 1,000 inter.unit TID PO 10/15/17 21:00 11/14/17 20:59 10/17/17 08:11 1,000 INTER.UNIT Bumetanide 1 mg/ Syringe 4 ml @ 4 mls/min BID@0900,1700 IV 10/16/17 17:00 11/15/17 16:59 10/17/17 08:51 4 MLS/MIN Cholestyramine Resin (Questran Powder Light) 4 gm BID@10,22 PO 10/17/17 22:00 11/16/17 21:59 Impression 77-year-old female admitted w/ RLE swelling / cellulitis. She was bitten by her cat. PMH - Stage IV CKD w/ creatinine 2.0 (EGFR 28 cc/min). Renal impairment is on the basis of DM and microvascular disease, Iron deficiency anemia, h/o chronic LGI bleed, Cirrhosis of the liver, AODM w/ peripheral neuropathy, MVR w/ Dowd-Lee ball and cage valve 1985 [facility] [place], Heart block s/p pacemaker 1994, Breast CA s/p lumpectomy, L knee meniscal tear Recommendations CHRONIC KIDNEY DISEASE: -- Will resume home diuretic dose of Bumex 2 mg two tablets each morning and one tablet each evening -- Monitor daily PRP ANEMIA: -- Patient has h/o breast CA and [facility]. She had been on regular IV iron and SQ Aranesp -- Will check iron stores and FOBT -- Recommend transfusion to Hgb > 8.0
--- NOTE | 2017-10-17 12:14 | Hospitalist Progress Note ---
Hospitalist Progress Note Date of Service Oct 17, 2017. Subjective Pt evaluation today including: conversation w/ patient Patient having a lot of watery diarrhea, nonbloody. Denies abdominal pain. Had another fever last night. Does not feel short of breath or chest pain. Pleurx catheter drained 350 mL's today which is less than previous. She feels her legs are less swollen and less tender on the right leg. All Other Systems: Reviewed and Negative Objective Vital Signs Date Time Temp Pulse Resp B/P (MAP) Pulse Ox O2 Delivery O2 Flow Rate FiO2 10/17/17 08:31 36.6 61 20 117/55 (75) 96 10/17/17 08:00 98 Room Air 10/17/17 01:07 37.5 10/17/17 00:00 Room Air 10/16/17 23:52 38.0 70 16 106/55 (72) 93 Room Air 10/16/17 16:00 Room Air 10/16/17 15:34 88 10/16/17 15:05 36.6 96 18 122/54 (76) 97 Room Air 10/16/17 13:50 98 10/16/17 13:43 98 Room Air Physical Exam General Appearance: WD/WN, no apparent distress (Appears better today) Eyes: normal inspection, sclerae normal ENT: hearing grossly normal Neck: trachea midline Respiratory/Chest: no respiratory distress, no accessory muscle use, + decreased breath sounds (Mild at the bases bilaterally but improved from previous) Cardiovascular: regular rate, rhythm, + systolic murmur (3/6 holosystolic with loud audible click S1) Abdomen: normal bowel sounds, non tender, soft Extremities: + swelling (2+ but much improved from previous, right leg is much less erythematous and significantly less tender to palpation) Neurologic/Psychiatric: alert, normal mood/affect, oriented x 3 Skin: warm/dry Laboratory Results Last 24 Hours Test 10/16/17 12:15 10/16/17 16:43 10/16/17 19:52 10/17/17 06:51 White Blood Count 9.61 K/uL 8.77 K/uL Red Blood Count 2.74 M/uL 2.68 M/uL Hemoglobin 7.9 g/dL 7.6 g/dL Hematocrit 25.5 % 24.4 % Mean Corpuscular Volume 93.1 fL 91.0 fL Mean Corpuscular Hemoglobin 28.8 pg 28.4 pg Mean Corpuscular Hemoglobin Concent 31.0 g/dl 31.1 g/dl Platelet Count 180 K/uL 189 K/uL Mean Platelet Volume 9.2 fL 9.8 fL Neutrophils (%) (Auto) 81.6 % 78.6 % Lymphocytes (%) (Auto) 4.4 % 7.9 % Monocytes (%) (Auto) 13.3 % 13.2 % Eosinophils (%) (Auto) 0.2 % 0.1 % Basophils (%) (Auto) 0.2 % 0.1 % Neutrophils # (Auto) 7.84 K/uL 6.89 K/uL Lymphocytes # (Auto) 0.42 K/uL 0.69 K/uL Monocytes # (Auto) 1.28 K/uL 1.16 K/uL Eosinophils # (Auto) 0.02 K/uL 0.01 K/uL Basophils # (Auto) 0.02 K/uL 0.01 K/uL RDW Standard Deviation 68.4 fL 64.4 fL RDW Coefficient of Variation 20.0 % 19.5 % Immature Granulocyte % (Auto) 0.3 % 0.1 % Immature Granulocyte # (Auto) 0.03 K/uL 0.01 K/uL Spherocytes OCCASIONAL OCCASIONAL Echinocytes 1+ Sodium Level 128 mmol/L 127 mmol/L Potassium Level 5.1 mmol/L 4.9 mmol/L Chloride Level 99 mmol/L 99 mmol/L Carbon Dioxide Level 20 mmol/L 19 mmol/L Anion Gap 9.0 mmol/L 9.0 mmol/L Blood Urea Nitrogen 75 mg/dl 83 mg/dl Creatinine 2.75 mg/dl 2.66 mg/dl Est Creatinine Clear Calc Drug Dose 16.7 ml/min 17.2 ml/min Estimated GFR () 18.8 19.6 Estimated GFR (Non- 16.2 16.9 BUN/Creatinine Ratio 27.4 31.3 Random Glucose 176 mg/dl 132 mg/dl Calcium Level 7.9 mg/dl 7.9 mg/dl Bedside Glucose 167 mg/dl 218 mg/dl Prothrombin Time 26.0 SECONDS Prothromb Time International Ratio 2.5 Estimated Average Glucose 85 mg/dl Hemoglobin A1c 4.6 % Phosphorus Level 5.1 mg/dl Magnesium Level 2.5 mg/dl Test 10/17/17 07:39 10/17/17 10:30 10/17/17 10:43 10/17/17 11:36 Bedside Glucose 147 mg/dl 218 mg/dl Transferrin % Saturation % Assessment and Plan This pt is a 77yo female with a very complex medical h/o cor pulmonale/chronic diastolic CHF, chronic rt pleural effusion with PleurX catheter, CKD stage IIIB/ IV, DMII, COPD, 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 1. RLE cat bite cellulitis/Bacteremia/Sepsis POA- CT w/o gas, but with significant subcutaneous edema, no obvious abscess formation. Patient febrile at 39.2, slightly tachypneic at 23bpm on on admission. No leukocytosis, lactate = 1.57. She has multiple allergies to antibiotics including Doxycycline, Levaquin/Moxifloxacin, Sulfamethoxazole and PCNs - difficult as these agents are typically first line for cat bite BCx 2/2 with Pasteurella which she has had before from a cat bite -continue Imipenem renally dosed an dplan to transition to ertapenem upon discharge (for once daily ease of home administration) for a total of 10 days of therapy-will need PICC once BCxs repeat neg x 48 hrs -ID consultation, appreciate assistance with antibiotic management -needs IV therapy fdc treatment x given inability to tolerate any po antibiotics due to allergies -CM states that first dose of ertapenem MUST BE GIVEN on the day of discharge 2. Acute on Chronic Diastolic CHF/Pulmonary HTN/Permanent atrial fibrillation/ Heart block with single-chamber permanent pacemaker, last generator change 2008 - was volume overloaded after receiving IVFs on admission, increased drainage from PleurX than previous, worsening swelling. Received I L IVFs in ER and then IV abx -now on Bumex 1mg IV bid, diuresing, legs look less swollen -restarting Bumex home dose po -continue to hold spironolactone for ROSELYN -continue digoxin-level good -continue low Na+ diet -daily weights, I/Os -eventually needs generator changeout on pacer but not while bacteremic-Cardio checked battery life and has < 1 month to go--> needs to wait until bacteremia resolved -on coumadin for A-fib-INR down to 2.5 today -restart coumadin 3mg today and follow INR in AM 3. ROSELYN in setting of CKD Stage IV/Hyponatremia/Hyperkalemia/Non AG Metabolic acidosis - patient with Cr of 2.66 today, baseline of 2.2. HCO3 29, K+ 5.3 and now down to 4.9, Na+ 130 and now down to 127 All secondary to renal failure worsening Appreciate Nephro management -restarting Bumex 4mg po qAM and 2mg po QPM -holding aldactone -may need to accept some uremia to achieve good volume status -pt would not want HD 4. DMII, on fdc insulin - glucose well controlled here. Last HgbA1C 6.6% in 01/2017 -continue Lantus 10 units BID -continue Novolog SS -check HgbA1C in AM 5. COPD - patient with stable COPD -Continue Singulair, Vickie, DuoNeb PRN 6. Mechanical mitral valve in situ - ball and cage, on chronic coumadin -INR today at 2.5mg -restarting coumadin today -Monitor daily INR 7. Hypothyroidism - TSH here normal at 2.12 -Continue Synthroid 8. Hypertension - acceptable to mildly low -Continue to monitor --Continue Hydralazine, Metoprolol, bumex 9. HLP - stable, chronic -Continue gemfibrozil and Zetia 10. Anemia - of iron deficiency and chronic kidney disease. Has received 6 IV Venofer treatments Hgb dropped slightly to 7.6 -Nephrology recommeds one unit PRBCs which pt is agreeable Proph-coumadin Code - DNR/DNI, would not want vasopressors, hemodialysis, or more aggressive care as per discussion with patient Dispo - continued hospital stay for IV abx
[2017-10-17] MEDS ORDERED: ACETAMINOPHEN 325 MG TAB PO STA (12:16)
[2017-10-17] MEDS ORDERED: ERTA1INJ IV (12:29)
[2017-10-17] MEDS: DIGOXIN 0.125 MG TAB PO SCH (16:35)
[2017-10-17] MEDS: WARFARIN SOD 3 MG TAB PO SCH (16:36)
[2017-10-17] MEDS ORDERED: BUMETANIDE 1 MG TAB PO SCH (17:00)
[2017-10-17] MEDS: RASPBERRY SYRUP 5 ML UDP PO SCH ×2 (18:34→23:41)
[2017-10-17] MEDS: VANCOMYCIN HCL 125 MG/2.5ML SOLN PO SCH ×2 (18:34→23:41)
--- NOTE | 2017-10-17 20:18 | Infectious Disease Progress Nt ---
Progress Note Date of Service Oct 17, 2017. Subjective Pt evaluation today including: conversation w/ patient, physical exam, chart review, lab review, review of studies, conversation w/ application packaging consultant, review of inpatient medication list Patient now having significant diarrhea, C difficile PCR positive. Has been started on vancomycin. Right leg improving, less swollen and erythematous. Blood cultures growing pasteurella. All Other Systems: Reviewed and Negative Medications Current Inpatient Medications Medications (Trade) Dose Ordered Sig/Albin Route Start Time Stop Time Status Last Admin Dose Admin Acetaminophen (Tylenol Tab) 650 mg Q4H PRN PO 10/15/17 03:30 11/14/17 03:29 10/17/17 03:16 650 MG Ondansetron HCl (Zofran Inj) 4 mg Q6H PRN IV 10/15/17 03:30 11/14/17 03:29 Insulin Glargine (Lantus Solostar Pen) 10 units Q12 SC 10/15/17 09:00 11/14/17 08:59 10/17/17 08:46 10 UNITS Insulin Aspart (novoLOG ASPART) SLIDING SCALE If C... ACHS SC 10/15/17 06:30 11/14/17 06:59 10/17/17 17:34 7 UNITS Glucose (Glucose 40% Gel) 15-30 GRAMS 15 GRAMS... UD PRN PO 10/15/17 03:30 11/14/17 03:29 Glucose (Glucose Chew Tab) 4-8 Tablets 4 Tabl... UD PRN PO 10/15/17 03:30 11/14/17 03:29 Dextrose (Dextrose 50% 50ML Syringe) 25-50ML 25ML FOR ... UD PRN IV 10/15/17 03:30 11/14/17 03:29 Glucagon (Glucagon Inj) 1 mg UD PRN SQ 10/15/17 03:30 11/14/17 03:29 Carbohydrates (Carbohydrates For Hypoglycemia) 15-30 GRAMS 15 grams if BSG 54-69... UD PRN PO 10/15/17 03:30 11/14/17 03:29 Diazepam (Valium Tab) 5 mg HS PO 10/15/17 21:00 11/14/17 20:59 10/16/17 21:45 5 MG Digoxin (Lanoxin Tab) 0.125 mg DAILY@1600 PO 10/15/17 16:00 11/14/17 15:59 10/17/17 16:35 0.125 MG EZETIMIBE (Zetia Tab) 10 mg HS PO 10/15/17 21:00 11/14/17 20:59 10/16/17 21:37 10 MG Fexofenadine HCl (Vickie Tab) 180 mg QAM PO 10/15/17 09:00 11/14/17 08:59 10/17/17 08:12 180 MG Gemfibrozil (Lopid Tab) 600 mg BID PO 10/15/17 09:00 11/14/17 08:59 10/17/17 08:11 600 MG Hydralazine HCl (Apresoline Tab) 25 mg BID PO 10/15/17 09:00 11/14/17 08:59 10/17/17 08:12 25 MG Levothyroxine Sodium (Synthroid Tab) 175 mcg DAILYBB PO 10/15/17 06:30 11/14/17 06:59 10/17/17 05:35 175 MCG Metoprolol Succinate (Toprol Xl Tab) 100 mg DAILY PO 10/15/17 09:00 11/14/17 08:59 10/17/17 08:12 100 MG Montelukast Sodium (Singulair Tab) 10 mg QAM PO 10/15/17 09:00 11/14/17 08:59 10/17/17 08:12 10 MG Warfarin Sodium (Coumadin Tab) 3 mg DAILY@1600 PO 10/15/17 16:00 11/14/17 15:59 Future hold 10/17/17 16:36 3 MG Miscellaneous Information (Order Awaiting Action) 1 ea QS N/A 10/15/17 08:00 11/14/17 07:59 Imipenem/ Cilastatin Sodium 200 mg/Dextrose 108 ml @ 100 mls/hr Q6H IV 10/15/17 08:00 10/25/17 07:59 10/17/17 14:28 100 MLS/HR Albuterol/ Ipratropium (Duoneb) 3 ml Q4R PRN INH 10/15/17 04:15 11/14/17 04:14 Imipenem/ Cilastatin Sodium (Consult) 1 ea UD PRN N/A 10/15/17 04:30 11/14/17 04:29 Pyridoxine HCl (Vitamin B-6 Tab) 100 mg QAM PO 10/16/17 09:00 11/15/17 08:59 10/17/17 08:12 100 MG Cholecalciferol (Vitamin D Tab) 1,000 inter.unit TID PO 10/15/17 21:00 11/14/17 20:59 10/17/17 14:28 1,000 INTER.UNIT Cholestyramine Resin (Questran Powder Light) 4 gm BID@10,22 PO 10/17/17 22:00 11/16/17 21:59 Bumetanide (Bumex Tab) 4 mg QAM PO 10/18/17 09:00 11/17/17 08:59 Bumetanide (Bumex Tab) 2 mg DAILY@1700 PO 10/17/17 17:00 11/16/17 16:59 10/17/17 16:35 2 MG Lactulose (Chronulac Syrup) 15 gm QAM PO 10/18/17 09:00 11/17/17 08:59 Vancomycin HCl (Vancomycin Oral Soln) 125 mg Q6 PO 10/17/17 18:00 10/27/17 17:59 10/17/17 18:34 125 MG Raspberry (Raspberry Syrup 5ml Cup) 5 ml Q6 PO 10/17/17 18:00 10/27/17 17:59 10/17/17 18:34 5 ML Objective Vital Signs Date Time Temp Pulse Resp B/P (MAP) Pulse Ox O2 Delivery O2 Flow Rate FiO2 10/17/17 19:05 37.1 65 20 119/62 96 10/17/17 18:35 37.0 79 18 121/58 97 10/17/17 18:18 37.1 63 18 116/58 96 10/17/17 17:58 36.8 71 20 121/56 96 10/17/17 16:35 68 10/17/17 16:00 98 Room Air 10/17/17 15:06 36.7 68 18 126/59 (81) 95 Room Air 10/17/17 08:31 36.6 61 20 117/55 (75) 96 10/17/17 08:00 98 Room Air 10/17/17 01:07 37.5 10/17/17 00:00 Room Air 10/16/17 23:52 38.0 70 16 106/55 (09) 93 Room Air Physical Exam General Appearance: WD/WN, no apparent distress Eyes: normal inspection, EOMI, sclerae normal ENT: normal ENT inspection, pharynx normal Neck: supple, no adenopathy, thyroid normal, trachea midline Respiratory/Chest: chest non-tender, no respiratory distress, no accessory muscle use, + decreased breath sounds, + rales Cardiovascular: regular rate, rhythm, no gallop, no murmur Abdomen: normal bowel sounds, non tender, soft, no organomegaly Extremities: + inflammation (Right leg), + swelling (Right greater than left leg) Neurologic/Psychiatric: alert, oriented x 3 Skin: normal color, no rash, + pertinent finding (Improving right leg erythema) Lymphatic: no adenopathy Laboratory Results RUN DATE: 10/17/17 [facility] LAB PAGE 1 RUN TIME: 821 Specimen Inquiry PATIENT: MAGNUS ZIEGLER LOC: C.MS2W U # : [id number] AGE/SX: 77/F ROOM: [facility] REG : 10/15/[address]: Karlee Underwood MD : 1940 BED: 1 DIS : STATUS: ADM IN TLOC: SPEC #: [id number] ELEAZAR: 10/15/17 STATUS: MONICA REQ #: [id number] RECD: 10/15/[address] [facility] [address]: Anthony Gar M.D. SOURCE: BLOOD ENTR: 10/15/[address] [facility] [address]: Phoenix Klein III, CRNP [facility]: ORDERED: BLOOD CULTURE Procedure Result Verified Site BLD CULT Final 10/17/17-821 Organism 1 PASTEURELLA MULTOCIDA SENS NO SENSITIVITY TO FOLLOW Phoned results to EARLENE RODRIGUEZ on 10/15/17 at 1608 by Elza Godwin. Results were verbalized back to LEESA. Last 24 Hours Test 10/17/17 06:51 10/17/17 07:39 10/17/17 10:43 10/17/17 11:36 White Blood Count 8.77 K/uL Red Blood Count 2.68 M/uL Hemoglobin 7.6 g/dL Hematocrit 24.4 % Mean Corpuscular Volume 91.0 fL Mean Corpuscular Hemoglobin 28.4 pg Mean Corpuscular Hemoglobin Concent 31.1 g/dl Platelet Count 189 K/uL Mean Platelet Volume 9.8 fL Neutrophils (%) (Auto) 78.6 % Lymphocytes (%) (Auto) 7.9 % Monocytes (%) (Auto) 13.2 % Eosinophils (%) (Auto) 0.1 % Basophils (%) (Auto) 0.1 % Neutrophils # (Auto) 6.89 K/uL Lymphocytes # (Auto) 0.69 K/uL Monocytes # (Auto) 1.16 K/uL Eosinophils # (Auto) 0.01 K/uL Basophils # (Auto) 0.01 K/uL RDW Standard Deviation 64.4 fL RDW Coefficient of Variation 19.5 % Immature Granulocyte % (Auto) 0.1 % Immature Granulocyte # (Auto) 0.01 K/uL Spherocytes OCCASIONAL Prothrombin Time 26.0 SECONDS Prothromb Time International Ratio 2.5 Sodium Level 127 mmol/L Potassium Level 4.9 mmol/L Chloride Level 99 mmol/L Carbon Dioxide Level 19 mmol/L Anion Gap 9.0 mmol/L Blood Urea Nitrogen 83 mg/dl Creatinine 2.66 mg/dl Est Creatinine Clear Calc Drug Dose 17.2 ml/min Estimated GFR () 19.6 Estimated GFR (Non- 16.9 BUN/Creatinine Ratio 31.3 Random Glucose 132 mg/dl Estimated Average Glucose 85 mg/dl Hemoglobin A1c 4.6 % Calcium Level 7.9 mg/dl Phosphorus Level 5.1 mg/dl Magnesium Level 2.5 mg/dl Bedside Glucose 147 mg/dl 218 mg/dl Iron Level 28 mcg/dl Transferrin 235 mg/dl Transferrin % Saturation 8 % Ferritin 100.7 ng/ml Test 10/17/17 16:38 Bedside Glucose 134 mg/dl Assessment and Plan Patient with pasteurella sepsis from cat bite with cellulitis right leg. Appears to be improving with antibiotics. Now with C difficile colitis. Patient to be continued on IV antibiotics for 10 day course, and will continue oral vancomycin. Will follow.
[2017-10-17] MEDS: DIAZEPAM 5MG TAB PO SCH (21:50)
[2017-10-17] MEDS: CHOLESTYRAMINE LIGHT 4 GM PKT PO SCH (21:52)
[2017-10-17] MEDS: EZETIMIBE 10MG TAB PO SCH (21:52)
[2017-10-18] MEDS: IMIPENEM-CILASTATIN 200 MG in DEXTROSE 5% 100ML 100 ML IV SCH ×4 (02:06→19:52)
[2017-10-18] MEDS: VANCOMYCIN HCL 125 MG/2.5ML SOLN PO SCH ×3 (05:16→17:37)
[2017-10-18] MEDS: RASPBERRY SYRUP 5 ML UDP PO SCH ×3 (05:16→17:37)
[2017-10-18] MEDS: LEVOTHYROXINE 175 MCG TAB PO SCH (05:18)
[2017-10-18 07:14] VITALS: BP 109/46; PULSE 86; TEMP 36.8; O2SAT 93
[2017-10-18 07:15] LABS: BASO % 0.5 %; BASO ABS # 0.03 K/uL (0-0.2); EOS ABS # 0.19 K/uL (0-0.5); HEMATOCRIT 27.3 % (37-47); HEMOGLOBIN 8.7 g/dL (12.0-16.0); IG# 0.02 K/uL (0.00-0.02); LYMPH % 11.8 %; LYMPH ABS # 0.74 K/uL (1.2-3.4); MEAN CELL VOLUME 88.6 fL (80-100); MEAN CORPUSCULAR HEMOGLOBIN 28.2 pg (25-34); MEAN CORPUSCULAR HGB CONC 31.9 g/dl (32-36); MEAN PLATELET VOLUME 9.5 fL (7.4-10.4); MONO % 15.5 %; MONO ABS # 0.97 K/uL (0.11-0.59); NEUT % 68.9 %; PLATELET COUNT 182 K/uL (130-400); RED CELL DISTRIBUTION WIDTH CV 20.2 % (11.5-14.5); RED CELL DISTRIBUTION WIDTH SD 66.3 fL (36.4-46.3); WHITE BLOOD COUNT 6.25 K/uL (4.8-10.8)
[2017-10-18 07:26] LABS: INR 1.7 (0.9-1.1)
[2017-10-18 07:48] LABS: CALCIUM 7.9 mg/dl (8.5-10.1); CREATININE 2.28 mg/dl (0.60-1.20); POTASSIUM 4.2 mmol/L (3.5-5.1)
[2017-10-18] MEDS: TROSPIUM~ORDER AWAITING ACTION SCH ×3 (08:00→23:34)
[2017-10-18] MEDS: CHOLECALCIFEROL 1000 INTER.UNIT TAB PO SCH ×3 (08:33→21:29)
[2017-10-18] MEDS: CHOLESTYRAMINE LIGHT 4 GM PKT PO SCH ×2 (08:33→23:34)
[2017-10-18] MEDS: PYRIDOXINE HCL 50 MG TAB PO SCH (08:33)
[2017-10-18] MEDS: GEMFIBROZIL 600 MG TAB PO SCH ×2 (08:34→21:29)
[2017-10-18] MEDS: FEXOFENADINE HCL 180 MG TAB PO SCH (08:34)
[2017-10-18] MEDS: BUMETANIDE 1 MG TAB PO SCH ×2 (08:34→16:22)
[2017-10-18] MEDS: METOPROLOL SUCC 50MG EXT REL TAB PO SCH (08:34)
[2017-10-18] MEDS: MONTELUKAST SOD 10 MG TAB PO SCH (08:34)
[2017-10-18] MEDS: INSULIN GLARGINE SOLOSTAR 100 UNITS/ML 3 ML PEN SC SCH ×2 (08:39→21:34)
[2017-10-18] MEDS: INSULIN ASPART 100 UNITS/ML 3 ML PEN SC SCH ×4 (08:39→21:30)
[2017-10-18] MEDS ORDERED: LACTULOSE SYRUP 10 GM/15 ML BTL 473 ML PO SCH (09:00)
--- NOTE | 2017-10-18 11:15 | Nephrology Progress Note ---
Nephrology Progress Note Date of Service Oct 18, 2017. Chief Complaint ROSELYN / CKD Subjective Mrs. Morales was seen & examined in her hospital room this morning. She was febrile overnight but notes that her leg is less painful. Mrs. Morales reports new onset diarrhea and notes that she tested + for Clostridium Difficile. Review of Systems Constitutional: + fever Cardiovascular: No chest pain Respiratory: No dyspnea at rest Abdomen: + diarrhea, No pain Extremities: + leg edema A complete review of systems was performed. Pertinent positives are noted above. All other systems are negative. Vital Signs Last 8 Hrs Date Time Temp Pulse Resp B/P (MAP) Pulse Ox O2 Delivery O2 Flow Rate FiO2 10/18/17 07:14 36.8 86 20 109/46 (67) 93 Room Air I & O 24-Hour Column 10/19/17 08:00 Output Total 550 ml Balance -550 ml Last Recorded Weight Weight (Kilograms): 75.900 Physical Exam General Appearance: no apparent distress Head: normocephalic Eyes: PERRL Neck: no adenopathy Respiratory/Chest: lungs clear, no respiratory distress, + pertinent finding ( Pleur-x catheter in place R chest) Cardiovascular: regular rate, rhythm Abdomen/GI: normal bowel sounds, non tender, soft Extremities/Musculoskelatal: + pertinent finding (tense LE swelling. Mild erythema involving the right villareal) Neurologic/Psych: alert, oriented x 3 Family History Cancer Diabetes mellitus Heart disease Hypertension Lung disease Social History Smoking Status: Never smoker Alcohol Use: none Drug Use: none Marital Status: Housing Status: lives with family Occupation: retired Laboratory Results Past 24 Hours 10/18/17 07:04 Red Blood Count 3.08, Mean Corpuscular Volume 88.6, Mean Corpuscular Hemoglobin 28.2, Mean Corpuscular Hemoglobin Concent 31.9, Mean Platelet Volume 9.5, Neutrophils (%) (Auto) 68.9, Lymphocytes (%) (Auto) 11.8, Monocytes (%) (Auto) 15.5, Eosinophils (%) (Auto) 3.0, Basophils (%) (Auto) 0.5, Neutrophils # (Auto ) 4.30, Lymphocytes # (Auto) 0.74, Monocytes # (Auto) 0.97, Eosinophils # (Auto ) 0.19, Basophils # (Auto) 0.03 10/18/17 07:04 Test 10/17/17 11:36 10/17/17 16:38 10/17/17 20:19 10/18/17 07:04 Bedside Glucose 218 mg/dl (70-90) 134 mg/dl (70-90) 184 mg/dl (70-90) White Blood Count 6.25 K/uL (4.8-10.8) Red Blood Count 3.08 M/uL (4.2-5.4) Hemoglobin 8.7 g/dL (12.0-16.0) Hematocrit 27.3 % (37-47) Mean Corpuscular Volume 88.6 fL (80-100) Mean Corpuscular Hemoglobin 28.2 pg (25-34) Mean Corpuscular Hemoglobin Concent 31.9 g/dl (32-36) Platelet Count 182 K/uL (130-400) Mean Platelet Volume 9.5 fL (7.4-10.4) Neutrophils (%) (Auto) 68.9 % Lymphocytes (%) (Auto) 11.8 % Monocytes (%) (Auto) 15.5 % Eosinophils (%) (Auto) 3.0 % Basophils (%) (Auto) 0.5 % Neutrophils # (Auto) 4.30 K/uL (1.4-6.5) Lymphocytes # (Auto) 0.74 K/uL (1.2-3.4) Monocytes # (Auto) 0.97 K/uL (0.11-0.59) Eosinophils # (Auto) 0.19 K/uL (0-0.5) Basophils # (Auto) 0.03 K/uL (0-0.2) RDW Standard Deviation 66.3 fL (36.4-46.3) RDW Coefficient of Variation 20.2 % (11.5-14.5) Immature Granulocyte % (Auto) 0.3 % Immature Granulocyte # (Auto) 0.02 K/uL (0.00-0.02) Spherocytes OCCASIONAL Ovalocytes 1+ Prothrombin Time 17.2 SECONDS (9.0-12.0) Prothromb Time International Ratio 1.7 (0.9-1.1) Anion Gap 11.0 mmol/L (3-11) Est Creatinine Clear Calc Drug Dose 20.3 ml/min Estimated GFR () 23.6 Estimated GFR (Non- 20.3 BUN/Creatinine Ratio 40.7 (10-20) Calcium Level 7.9 mg/dl (8.5-10.1) Test 10/18/17 07:44 Bedside Glucose 120 mg/dl (70-90) Date/Time Source Procedure Growth Status 10/17/17 14:40 Stool C.difficile Toxin B Gene (PCR) - Final Positive for C. difficile toxin B gene Complete Allergies Coded Allergies: Penicillins (Verified Allergy, Severe, anaphylaxis 30yrs ago, also broke out with sores, 10/15/17) NOTE: Timentin 05/2003 tolerated without problem Diltiazem (Verified Allergy, Unknown, unknown, 10/15/17) Levofloxacin (Verified Allergy, Unknown, UNKNOWN, 10/15/17) Moxifloxacin (Verified Allergy, Unknown, UNKNOWN, 10/15/17) Aspirin (Verified Adverse Reaction, Intermediate, increased bleeding (on warfarin), 10/15/17) Doxycycline (Verified Adverse Reaction, Intermediate, GI SYMPTOMS, 10/15/17) Atorvastatin (Verified Adverse Reaction, Unknown, & Crestor = muscle aches /pains, 10/15/17) NSAIDs (Verified Adverse Reaction, Unknown, AVOID PER DR. HICKS - [id number] , 10/15/17) Nortriptyline (Verified Adverse Reaction, Unknown, choking on food, 10/15/17 ) Quinidine (Verified Adverse Reaction, Unknown, flu-like symptoms, 10/15/17) Sulfamethoxazole w/Trimethoprim (Verified Adverse Reaction, Unknown, CONFUSION, 10/15/17) Medications Current Inpatient Medications Medications (Trade) Dose Ordered Sig/Albin Route Start Time Stop Time Status Last Admin Dose Admin Acetaminophen (Tylenol Tab) 650 mg Q4H PRN PO 10/15/17 03:30 11/14/17 03:29 10/17/17 03:16 650 MG Ondansetron HCl (Zofran Inj) 4 mg Q6H PRN IV 10/15/17 03:30 11/14/17 03:29 Insulin Glargine (Lantus Solostar Pen) 10 units Q12 SC 10/15/17 09:00 11/14/17 08:59 10/18/17 08:39 10 UNITS Insulin Aspart (novoLOG ASPART) SLIDING SCALE If C... ACHS SC 10/15/17 06:30 11/14/17 06:59 10/18/17 08:39 5 UNITS Glucose (Glucose 40% Gel) 15-30 GRAMS 15 GRAMS... UD PRN PO 10/15/17 03:30 11/14/17 03:29 Glucose (Glucose Chew Tab) 4-8 Tablets 4 Tabl... UD PRN PO 10/15/17 03:30 11/14/17 03:29 Dextrose (Dextrose 50% 50ML Syringe) 25-50ML 25ML FOR ... UD PRN IV 10/15/17 03:30 11/14/17 03:29 Glucagon (Glucagon Inj) 1 mg UD PRN SQ 10/15/17 03:30 11/14/17 03:29 Carbohydrates (Carbohydrates For Hypoglycemia) 15-30 GRAMS 15 grams if BSG 54-69... UD PRN PO 10/15/17 03:30 11/14/17 03:29 Diazepam (Valium Tab) 5 mg HS PO 10/15/17 21:00 11/14/17 20:59 10/17/17 21:50 5 MG Digoxin (Lanoxin Tab) 0.125 mg DAILY@1600 PO 10/15/17 16:00 11/14/17 15:59 10/17/17 16:35 0.125 MG EZETIMIBE (Zetia Tab) 10 mg HS PO 10/15/17 21:00 11/14/17 20:59 10/17/17 21:52 10 MG Fexofenadine HCl (Vickie Tab) 180 mg QAM PO 10/15/17 09:00 11/14/17 08:59 10/18/17 08:34 180 MG Gemfibrozil (Lopid Tab) 600 mg BID PO 10/15/17 09:00 11/14/17 08:59 10/18/17 08:34 600 MG Hydralazine HCl (Apresoline Tab) 25 mg BID PO 10/15/17 09:00 11/14/17 08:59 10/18/17 08:34 25 MG Levothyroxine Sodium (Synthroid Tab) 175 mcg DAILYBB PO 10/15/17 06:30 11/14/17 06:59 10/18/17 05:18 175 MCG Metoprolol Succinate (Toprol Xl Tab) 100 mg DAILY PO 10/15/17 09:00 8/31/18 08:59 10/18/17 08:34 100 MG Montelukast Sodium (Singulair Tab) 10 mg QAM PO 10/15/17 09:00 11/14/17 08:59 10/18/17 08:34 10 MG Warfarin Sodium (Coumadin Tab) 3 mg DAILY@1600 PO 10/15/17 16:00 11/14/17 15:59 Future hold 10/17/17 16:36 3 MG Miscellaneous Information (Order Awaiting Action) 1 ea QS N/A 10/15/17 08:00 11/14/17 07:59 Imipenem/ Cilastatin Sodium 200 mg/Dextrose 108 ml @ 100 mls/hr Q6H IV 10/15/17 08:00 10/25/17 07:59 10/18/17 08:35 100 MLS/HR Albuterol/ Ipratropium (Duoneb) 3 ml Q4R PRN INH 10/15/17 04:15 11/14/17 04:14 Imipenem/ Cilastatin Sodium (Consult) 1 ea UD PRN N/A 10/15/17 04:30 11/14/17 04:29 Pyridoxine HCl (Vitamin B-6 Tab) 100 mg QAM PO 10/16/17 09:00 11/15/17 08:59 10/18/17 08:33 100 MG Cholecalciferol (Vitamin D Tab) 1,000 inter.unit TID PO 10/15/17 21:00 11/14/17 20:59 10/18/17 08:33 1,000 INTER.UNIT Cholestyramine Resin (Questran Powder Light) 4 gm BID@10,22 PO 10/17/17 22:00 11/16/17 21:59 10/18/17 08:33 4 GM Bumetanide (Bumex Tab) 4 mg QAM PO 10/18/17 09:00 11/17/17 08:59 10/18/17 08:34 4 MG Vancomycin HCl (Vancomycin Oral Soln) 125 mg Q6 PO 10/17/17 18:00 10/27/17 17:59 10/18/17 05:16 125 MG Raspberry (Raspberry Syrup 5ml Cup) 5 ml Q6 PO 10/17/17 18:00 10/27/17 17:59 10/18/17 05:16 5 ML Bumetanide (Bumex Tab) 4 mg DAILY@1700 PO 10/18/17 17:00 11/16/17 16:59 Impression 77-year-old female admitted w/ RLE swelling / cellulitis. She was bitten by her cat. Culture is + for Pasteurella. PMH - Stage IV CKD w/ creatinine 2.0 ( EGFR 28 cc/min). Renal impairment is on the basis of DM and microvascular disease, Iron deficiency anemia, h/o chronic LGI bleed, Cirrhosis of the liver, AODM w/ peripheral neuropathy, MVR w/ Dowd-Lee ball and cage valve [place] [facility] [place] Heart block s/p pacemaker 1994, Breast CA s/p lumpectomy, L knee meniscal tear Recommendations CHRONIC KIDNEY DISEASE: -- KIdney function remains stable. Electrolyte balance is acceptable. -- I&O's matched overnight. Patient has tense LE edema. Will increase Bumex to 4 mg po BID -- Patient has relative hypotension. Continue to hold Spironolactone at this time -- Monitor daily PRP ANEMIA: -- Patient has h/o breast CA and [facility]. She had been on regular IV iron and SQ Aranesp -- Iron saturation 8% w/ ferritin 100 10/18/17. FOBT pending. Hold IV iron due to bacteremia -- Patient was transfused 1 U PRBC 10/17/17. Hgb improved from 7.4 to 8.7
[2017-10-18 15:03] VITALS: BP 126/52; PULSE 88; TEMP 36.7; O2SAT 97
[2017-10-18] MEDS ORDERED: WARFARIN SOD 1 MG TAB PO ONE (16:00)
[2017-10-18] MEDS: WARFARIN SOD 3 MG TAB PO SCH (16:21)
[2017-10-18] MEDS: DIGOXIN 0.125 MG TAB PO SCH (16:21)
--- NOTE | 2017-10-18 20:45 | Progress Note ---
Subjective Date of Service: Oct 18, 2017. Subjective Pt evaluation today including: conversation w/ patient, physical exam, chart review, lab review, review of studies (numerous labs dating back several years ) , review of inpatient medication list Pain: none reported PO Intake: doing well Voiding: no voiding problems patient with ongoing diarrhea but "much better" in comparison to previous days reports mild dyspnea this am but none this afternoon asks why she "keeps needing blood" and why she is anemic denies any BRBPR or melena Problem List Medical Problems: (1) Anasarca Status: Acute (2) Anxiety Status: Acute (3) Arm pain, left Status: Acute (4) Back pain Status: Acute (5) Back pain Status: Acute (6) Cat bite Status: Acute (7) Cat bite of right lower leg with infection Status: Acute (8) Cellulitis Status: Acute (9) Cellulitis of right leg Status: Acute (10) CHF (congestive heart failure) Status: Acute (11) Chronic obstructive pulmonary disease Status: Acute (12) COPD exacerbation Status: Acute (13) Dehydration Status: Acute (14) Dyspnea Status: Acute (15) Fever Status: Acute (16) Fracture of right distal radius Status: Acute (17) GI bleed Status: Acute (18) GI bleed Status: Acute (19) Guaiac + stool Status: Acute (20) Hypoxia Status: Acute (21) L2 vertebral fracture Status: Acute (22) Left hip pain Status: Acute (23) Medication adverse effect Status: Acute (24) Pleural effusion Status: Acute (25) PNA (pneumonia) Status: Acute (26) Pulmonary HTN Status: Acute (27) Rapid atrial fibrillation Status: Acute (28) Respiratory distress Status: Acute (29) Right arm fracture Status: Acute (30) Superficial phlebitis Status: Acute (31) Supratherapeutic INR Status: Acute Review of Systems Constitutional: No fever Respiratory: No cough Cardiac: + edema, No chest pain, No orthopnea Abdomen: + diarrhea, No pain Objective Vital Signs Date Time Temp Pulse Resp B/P (MAP) Pulse Ox O2 Delivery O2 Flow Rate FiO2 10/18/17 17:00 Room Air 10/18/17 16:21 70 10/18/17 15:03 36.7 88 18 126/52 (76) 97 Room Air 10/18/17 08:45 Room Air 10/18/17 07:14 36.8 86 20 109/46 (67) 93 Room Air 10/17/17 23:59 Room Air 10/17/17 23:29 37.1 66 17 109/59 (76) 97 Room Air Physical Exam General Appearance: no apparent distress ENT: pharynx normal Neck: + JVD Respiratory/Chest: lungs clear, no respiratory distress, no accessory muscle use, + decreased breath sounds (right base) Cardiovascular: no gallop, + systolic murmur (2/6 LLSB), + irregularly irregular Abdomen: normal bowel sounds, non tender, no organomegaly, + distended (with ascites?) Extremities: + pedal edema, + swelling (severe, right leg, extending to the thigh (about 3+); left leg with 1-2+ edema) Neurologic/Psychiatric: alert, oriented x 3 Skin: + pallor, + pertinent finding (scant scratch noted near the right popliteal fossa; no surrounding cellulitis. Right distal anterior villareal - optifoam present, minimal abrasions present) Laboratory Results Last 24 Hours Test 10/18/17 07:04 10/18/17 07:44 10/18/17 11:49 10/18/17 16:32 White Blood Count 6.25 K/uL Red Blood Count 3.08 M/uL Hemoglobin 8.7 g/dL Hematocrit 27.3 % Mean Corpuscular Volume 88.6 fL Mean Corpuscular Hemoglobin 28.2 pg Mean Corpuscular Hemoglobin Concent 31.9 g/dl Platelet Count 182 K/uL Mean Platelet Volume 9.5 fL Neutrophils (%) (Auto) 68.9 % Lymphocytes (%) (Auto) 11.8 % Monocytes (%) (Auto) 15.5 % Eosinophils (%) (Auto) 3.0 % Basophils (%) (Auto) 0.5 % Neutrophils # (Auto) 4.30 K/uL Lymphocytes # (Auto) 0.74 K/uL Monocytes # (Auto) 0.97 K/uL Eosinophils # (Auto) 0.19 K/uL Basophils # (Auto) 0.03 K/uL RDW Standard Deviation 66.3 fL RDW Coefficient of Variation 20.2 % Immature Granulocyte % (Auto) 0.3 % Immature Granulocyte # (Auto) 0.02 K/uL Spherocytes OCCASIONAL Ovalocytes 1+ Prothrombin Time 17.2 SECONDS Prothromb Time International Ratio 1.7 Sodium Level 131 mmol/L Potassium Level 4.2 mmol/L Chloride Level 102 mmol/L Carbon Dioxide Level 19 mmol/L Anion Gap 11.0 mmol/L Blood Urea Nitrogen 93 mg/dl Creatinine 2.28 mg/dl Est Creatinine Clear Calc Drug Dose 20.3 ml/min Estimated GFR () 23.6 Estimated GFR (Non- 20.3 BUN/Creatinine Ratio 40.7 Random Glucose 104 mg/dl Calcium Level 7.9 mg/dl Bedside Glucose 120 mg/dl 151 mg/dl 128 mg/dl Test 10/18/17 20:18 Bedside Glucose 157 mg/dl Assessment and Plan 77yo female - 1. pasteurella septicemia - 2nd to cat scratch on right leg near the popliteal fossa. Repeat blood cultures thus far negative suggesting sterility of the blood. Day #4 of IV antibiotic therapy. Dr. Shen's consult appreciated; recommending another 10-day course of IV therapy (unfortunately has numerous allergies). If cultures are negative tomorrow would place midline PICC for the remainder of her abx course. 2. acute/chronic anemia - s/p 1 unit PRBCs yesterday. H/H now at baseline which is typically 8-9. Records reviewed - she has been told she has multiple reasons for her anemia including iron def, ACD from her CKD, etc. Will check a retic in the AM; if high consider hemolysis. If high then would also obtain a haptoglobin. CBC in am. 3. acute/chronic right-sided systolic CHF (acute/chronic cor pulmonale) - agree with diuretic adjustment as recommended by Dr. Wong today. 4. CKD stage 4 - creatinine is at baseline today (baseline 2 to 2.5). 5. acute kidney injury - likely 2nd to #1 above - resolved. 6. hyponatremia - likely multifactorial - follow w/ daily BMPs. 7. 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 currently subtherapeutic - typically alternatives 3mg with 4mg at home. Give 4mg today; daily INR. 8. atrial fibrillation - rates controlled; also w/ pacer. 9. Heart block with single-chamber permanent pacemaker, last generator change 2008 - apparently has less than 6 months of battery remaining based on last interrogation. 10. HTN - controlled with current meds. 11. h/o stroke - coumadin for secondary-stroke prevention. 12. pulmonary hypertension - likely has contributed to cor pulmonale. 13. chronic pleural effusion on right status post PleurX catheter - daily drain as previous. managed in [place] surgery clinic by Dr. Cueva. 14. T2DM - control acceptable at this time with lantus BID and novolog w/ meals. 15. c. diff colitis - remains on vancomycin QID by mouth. Day # . 16. hypothyroidism - synthroid; most recent TSH wnl. 17. h/o Crohn's disease - in remission?? 18. h/o breast cancer - noted. patient prefers NOT going to rehab following this admission IV abx will be needed at home or [facility] type setting Continued [facility] stay due to: multiple IV medications needed Discharge planning: uncertain
[2017-10-18] MEDS: DIAZEPAM 5MG TAB PO SCH (21:30)
[2017-10-18] MEDS: EZETIMIBE 10MG TAB PO SCH (21:30)
[2017-10-18 22:21] VITALS: O2SAT 97
[2017-10-18 23:33] VITALS: BP 105/59; PULSE 78; TEMP 36.8; O2SAT 95
[2017-10-19] MEDS: RASPBERRY SYRUP 5 ML UDP PO SCH ×4 (00:08→17:11)
[2017-10-19] MEDS: VANCOMYCIN HCL 125 MG/2.5ML SOLN PO SCH ×4 (00:08→17:11)
[2017-10-19] MEDS: IMIPENEM-CILASTATIN 200 MG in DEXTROSE 5% 100ML 100 ML IV SCH ×2 (02:03→07:59)
[2017-10-19] MEDS: LEVOTHYROXINE 175 MCG TAB PO SCH (05:49)
[2017-10-19 07:09] LABS: HEMATOCRIT 28.6 % (37-47); HEMOGLOBIN 8.8 g/dL (12.0-16.0); MEAN CELL VOLUME 89.1 fL (80-100); MEAN CORPUSCULAR HEMOGLOBIN 27.4 pg (25-34); MEAN CORPUSCULAR HGB CONC 30.8 g/dl (32-36); MEAN PLATELET VOLUME 9.3 fL (7.4-10.4); PLATELET COUNT 199 K/uL (130-400); RED CELL DISTRIBUTION WIDTH CV 19.9 % (11.5-14.5); RED CELL DISTRIBUTION WIDTH SD 65.2 fL (36.4-46.3); RETIC COUNT % 5.1 % (0.5-2.0)
[2017-10-19 07:14] VITALS: BP 124/47; PULSE 70; TEMP 36.7; O2SAT 94
[2017-10-19 07:25] LABS: POTASSIUM 3.8 mmol/L (3.5-5.1)
[2017-10-19] MEDS: TROSPIUM~ORDER AWAITING ACTION SCH ×3 (07:35→23:40)
[2017-10-19] MEDS: METOPROLOL SUCC 50MG EXT REL TAB PO SCH (07:58)
[2017-10-19] MEDS: CHOLECALCIFEROL 1000 INTER.UNIT TAB PO SCH ×3 (07:58→21:26)
[2017-10-19] MEDS: PYRIDOXINE HCL 50 MG TAB PO SCH (07:58)
[2017-10-19] MEDS: FEXOFENADINE HCL 180 MG TAB PO SCH (07:58)
[2017-10-19] MEDS: MONTELUKAST SOD 10 MG TAB PO SCH (07:58)
[2017-10-19] MEDS: GEMFIBROZIL 600 MG TAB PO SCH ×2 (07:58→21:25)
[2017-10-19] MEDS: INSULIN ASPART 100 UNITS/ML 3 ML PEN SC SCH ×4 (08:01→20:48)
[2017-10-19] MEDS: INSULIN GLARGINE SOLOSTAR 100 UNITS/ML 3 ML PEN SC SCH ×2 (08:02→21:27)
[2017-10-19] MEDS: BUMETANIDE 1 MG TAB PO SCH ×2 (08:15→16:01)
[2017-10-19] MEDS ORDERED: ERTAPENEM CONSULT ACTIVE PRN (09:30)
[2017-10-19] MEDS: CHOLESTYRAMINE LIGHT 4 GM PKT PO SCH ×2 (09:43→23:39)
--- NOTE | 2017-10-19 11:26 | Nephrology Progress Note ---
Nephrology Progress Note Date of Service Oct 19, 2017. Chief Complaint ROSELYN / CKD Subjective Mrs. Morales was seen & examined in her hospital room this morning. She reports brisk UO in response to oral Bumex therapy. She notes that her LE swelling is mildly improved. Review of Systems Constitutional: No fever Cardiovascular: No chest pain Respiratory: No dyspnea at rest Abdomen: No pain, No nausea, No vomiting Extremities: + leg edema A complete review of systems was performed. Pertinent positives are noted above. All other systems are negative. Vital Signs Last 8 Hrs Date Time Temp Pulse Resp B/P (MAP) Pulse Ox O2 Delivery O2 Flow Rate FiO2 10/19/17 08:45 Room Air 10/19/17 07:14 36.7 70 18 124/47 (72) 94 Room Air I & O 24-Hour Column 10/20/17 08:00 Output Total 500 ml Balance -500 ml Last Recorded Weight Weight (Kilograms): 73.400 Physical Exam General Appearance: no apparent distress Head: normocephalic, atraumatic Eyes: PERRL, EOMI Neck: no adenopathy Respiratory/Chest: lungs clear, no respiratory distress Cardiovascular: regular rate, rhythm Abdomen/GI: normal bowel sounds, non tender, soft Extremities/Musculoskelatal: + swelling (3+ bilateral pretibial pitting edema) Neurologic/Psych: alert, oriented x 3 Family History Cancer Diabetes mellitus Heart disease Hypertension Lung disease Social History Smoking Status: Never smoker Alcohol Use: none Drug Use: none Marital Status: Housing Status: lives with family Occupation: retired Laboratory Results Past 24 Hours 10/19/17 06:50 10/19/17 06:50 Test 10/18/17 11:49 10/18/17 16:32 10/18/17 20:18 10/19/17 06:50 Bedside Glucose 151 mg/dl (70-90) 128 mg/dl (70-90) 157 mg/dl (70-90) Red Blood Count 3.21 M/uL (4.2-5.4) Mean Corpuscular Volume 89.1 fL (80-100) Mean Corpuscular Hemoglobin 27.4 pg (25-34) Mean Corpuscular Hemoglobin Concent 30.8 g/dl (32-36) RDW Standard Deviation 65.2 fL (36.4-46.3) RDW Coefficient of Variation 19.9 % (11.5-14.5) Mean Platelet Volume 9.3 fL (7.4-10.4) Absolute Reticulocyte Count 0.16 10^6/uL (0.02-0.10) Percent Reticulocyte Count 5.1 % (0.5-2.0) Prothrombin Time 20.4 SECONDS (9.0-12.0) Prothromb Time International Ratio 2.0 (0.9-1.1) Anion Gap 10.0 mmol/L (3-11) Est Creatinine Clear Calc Drug Dose 22.8 ml/min Estimated GFR () 27.6 Estimated GFR (Non- 23.8 BUN/Creatinine Ratio 42.3 (10-20) Calcium Level 8.0 mg/dl (8.5-10.1) Test 10/19/17 07:33 Bedside Glucose 92 mg/dl (70-90) Allergies Coded Allergies: Penicillins (Verified Allergy, Severe, anaphylaxis 30yrs ago, also broke out with sores, 10/15/17) NOTE: Timentin 05/2003 tolerated without problem Diltiazem (Verified Allergy, Unknown, unknown, 10/15/17) Levofloxacin (Verified Allergy, Unknown, UNKNOWN, 10/15/17) Moxifloxacin (Verified Allergy, Unknown, UNKNOWN, 10/15/17) Aspirin (Verified Adverse Reaction, Intermediate, increased bleeding (on warfarin), 10/15/17) Doxycycline (Verified Adverse Reaction, Intermediate, GI SYMPTOMS, 10/15/17) Atorvastatin (Verified Adverse Reaction, Unknown, & Crestor = muscle aches /pains, 10/15/17) NSAIDs (Verified Adverse Reaction, Unknown, AVOID PER DR. HICKS - [id number] , 10/15/17) Nortriptyline (Verified Adverse Reaction, Unknown, choking on food, 10/15/17 ) Quinidine (Verified Adverse Reaction, Unknown, flu-like symptoms, 10/15/17) Sulfamethoxazole w/Trimethoprim (Verified Adverse Reaction, Unknown, CONFUSION, 10/15/17) Medications Current Inpatient Medications Medications (Trade) Dose Ordered Sig/Albin Route Start Time Stop Time Status Last Admin Dose Admin Acetaminophen (Tylenol Tab) 650 mg Q4H PRN PO 10/15/17 03:30 11/14/17 03:29 10/17/17 03:16 650 MG Ondansetron HCl (Zofran Inj) 4 mg Q6H PRN IV 10/15/17 03:30 11/14/17 03:29 Insulin Glargine (Lantus Solostar Pen) 10 units Q12 SC 10/15/17 09:00 11/14/17 08:59 10/19/17 08:02 10 UNITS Insulin Aspart (novoLOG ASPART) SLIDING SCALE If C... ACHS SC 10/15/17 06:30 11/14/17 06:59 10/19/17 08:01 5 UNITS Glucose (Glucose 40% Gel) 15-30 GRAMS 15 GRAMS... UD PRN PO 10/15/17 03:30 11/14/17 03:29 Glucose (Glucose Chew Tab) 4-8 Tablets 4 Tabl... UD PRN PO 10/15/17 03:30 11/14/17 03:29 Dextrose (Dextrose 50% 50ML Syringe) 25-50ML 25ML FOR ... UD PRN IV 10/15/17 03:30 11/14/17 03:29 Glucagon (Glucagon Inj) 1 mg UD PRN SQ 10/15/17 03:30 11/14/17 03:29 Carbohydrates (Carbohydrates For Hypoglycemia) 15-30 GRAMS 15 grams if BSG 54-69... UD PRN PO 10/15/17 03:30 11/14/17 03:29 Diazepam (Valium Tab) 5 mg HS PO 10/15/17 21:00 11/14/17 20:59 10/18/17 21:30 5 MG Digoxin (Lanoxin Tab) 0.125 mg DAILY@1600 PO 10/15/17 16:00 11/14/17 15:59 10/18/17 16:21 0.125 MG EZETIMIBE (Zetia Tab) 10 mg HS PO 10/15/17 21:00 11/14/17 20:59 10/18/17 21:30 10 MG Fexofenadine HCl (Vickie Tab) 180 mg QAM PO 10/15/17 09:00 11/14/17 08:59 10/19/17 07:58 180 MG Gemfibrozil (Lopid Tab) 600 mg BID PO 10/15/17 09:00 8/31/18 08:59 10/19/17 07:58 600 MG Hydralazine HCl (Apresoline Tab) 25 mg BID PO 10/15/17 09:00 11/14/17 08:59 10/19/17 07:59 25 MG Levothyroxine Sodium (Synthroid Tab) 175 mcg DAILYBB PO 10/15/17 06:30 11/14/17 06:59 10/19/17 05:49 175 MCG Metoprolol Succinate (Toprol Xl Tab) 100 mg DAILY PO 10/15/17 09:00 11/14/17 08:59 10/19/17 07:58 100 MG Montelukast Sodium (Singulair Tab) 10 mg QAM PO 10/15/17 09:00 11/14/17 08:59 10/19/17 07:58 10 MG Warfarin Sodium (Coumadin Tab) 3 mg DAILY@1600 PO 10/15/17 16:00 11/14/17 15:59 Future hold 10/18/17 16:21 3 MG Miscellaneous Information (Order Awaiting Action) 1 ea QS N/A 10/15/17 08:00 11/14/17 07:59 Albuterol/ Ipratropium (Duoneb) 3 ml Q4R PRN INH 10/15/17 04:15 11/14/17 04:14 Pyridoxine HCl (Vitamin B-6 Tab) 100 mg QAM PO 10/16/17 09:00 11/15/17 08:59 10/19/17 07:58 100 MG Cholecalciferol (Vitamin D Tab) 1,000 inter.unit TID PO 10/15/17 21:00 11/14/17 20:59 10/19/17 07:58 1,000 INTER.UNIT Cholestyramine Resin (Questran Powder Light) 4 gm BID@10,22 PO 10/17/17 22:00 11/16/17 21:59 10/19/17 09:43 4 GM Bumetanide (Bumex Tab) 4 mg QAM PO 10/18/17 09:00 11/17/17 08:59 10/19/17 08:15 4 MG Vancomycin HCl (Vancomycin Oral Soln) 125 mg Q6 PO 10/17/17 18:00 10/27/17 17:59 10/19/17 05:49 125 MG Raspberry (Raspberry Syrup 5ml Cup) 5 ml Q6 PO 10/17/17 18:00 10/27/17 17:59 10/19/17 05:48 5 ML Bumetanide (Bumex Tab) 4 mg DAILY@1700 PO 10/18/17 17:00 11/16/17 16:59 10/18/17 16:22 4 MG Ertapenem 500 mg/ Sodium Chloride 55 ml @ 110 mls/hr Q24H IV 10/19/17 12:00 11/02/17 11:59 Ertapenem (Consult) 1 ea UD PRN N/A 10/19/17 09:30 11/18/17 09:29 Impression 77-year-old female admitted w/ RLE swelling / cellulitis. She was bitten by her cat. Culture is + for Pasteurella. PMH - Stage IV CKD w/ creatinine 2.0 ( EGFR 28 cc/min). Renal impairment is on the basis of DM and microvascular disease, Iron deficiency anemia, h/o chronic LGI bleed, Cirrhosis of the liver, AODM w/ peripheral neuropathy, MVR w/ Dowd-Lee ball and cage valve 1985 [facility] [place] , Heart block s/p pacemaker 1994, Breast CA s/p lumpectomy, L knee meniscal tear Recommendations CHRONIC KIDNEY DISEASE: -- KIdney function remains stable. Electrolyte balance is acceptable. -- Net 2 L diuresis overnight. Continue Bumex 4 mg BID -- Patient has relative hypotension. Continue to hold Spironolactone at this time -- Monitor daily PRP ANEMIA: -- Patient has h/o breast CA and [facility]. She had been on regular IV iron and SQ Aranesp -- Iron saturation 8% w/ ferritin 100 10/18/17. FOBT pending. Hold IV iron due to bacteremia -- Patient was transfused 1 U PRBC 10/17/17. Hgb improved from 7.4 to 8.7
[2017-10-19] MEDS: ERTAPENEM IV 500 MG in SODIUM CHLORIDE 0.9% 50 ML IV SCH (11:36)
[2017-10-19 15:40] VITALS: BP 125/46; PULSE 59; TEMP 36.8; O2SAT 98
[2017-10-19] MEDS: DIGOXIN 0.125 MG TAB PO SCH (16:01)
[2017-10-19] MEDS: WARFARIN SOD 3 MG TAB PO SCH (16:01)
--- NOTE | 2017-10-19 21:03 | Progress Note ---
Subjective Date of Service: Oct 19, 2017. Subjective Pt evaluation today including: conversation w/ patient, conversation w/ family (daughter in law by phone (brief)), physical exam, chart review, lab review, conversation w/ contract consultant (nephrology, heme/onc, pharmacy), review of inpatient medication list Pain: none PO Intake: eating 100% meals Voiding: no voiding problems no issues overnight feels decent stool is forming and frequency is down quite a bit denies dyspnea at rest daily pleurX draining continues Problem List Medical Problems: (1) Anasarca Status: Acute (2) Anxiety Status: Acute (3) Arm pain, left Status: Acute (4) Back pain Status: Acute (5) Back pain Status: Acute (6) Cat bite Status: Acute (7) Cat bite of right lower leg with infection Status: Acute (8) Cellulitis Status: Acute (9) Cellulitis of right leg Status: Acute (10) CHF (congestive heart failure) Status: Acute (11) Chronic obstructive pulmonary disease Status: Acute (12) COPD exacerbation Status: Acute (13) Dehydration Status: Acute (14) Dyspnea Status: Acute (15) Fever Status: Acute (16) Fracture of right distal radius Status: Acute (17) GI bleed Status: Acute (18) GI bleed Status: Acute (19) Guaiac + stool Status: Acute (20) Hypoxia Status: Acute (21) L2 vertebral fracture Status: Acute (22) Left hip pain Status: Acute (23) Medication adverse effect Status: Acute (24) Pleural effusion Status: Acute (25) PNA (pneumonia) Status: Acute (26) Pulmonary HTN Status: Acute (27) Rapid atrial fibrillation Status: Acute (28) Respiratory distress Status: Acute (29) Right arm fracture Status: Acute (30) Superficial phlebitis Status: Acute (31) Supratherapeutic INR Status: Acute Review of Systems Constitutional: No fever, No chills Respiratory: No cough, No dyspnea at rest Cardiac: No chest pain Abdomen: No pain Objective Vital Signs Date Time Temp Pulse Resp B/P (MAP) Pulse Ox O2 Delivery O2 Flow Rate FiO2 10/19/17 16:30 Room Air 10/19/17 16:01 70 10/19/17 15:40 36.8 59 16 125/46 (72) 98 Room Air 10/19/17 08:45 Room Air 10/19/17 07:14 36.7 70 18 124/47 (72) 94 Room Air 10/18/17 23:33 36.8 78 18 105/59 (74) 95 Room Air 10/18/17 22:21 97 Room Air Physical Exam General Appearance: no apparent distress ENT: pharynx normal Neck: + JVD (but improved from yesterday's exam) Respiratory/Chest: lungs clear, no respiratory distress, no accessory muscle use Cardiovascular: regular rate, rhythm, no gallop, + systolic murmur (2-3/6 LLSB) , + extra beats, + pertinent finding (mechanical valve closure sound) Abdomen: normal bowel sounds, soft, no organomegaly, + distended (mild), + tenderness (minimal epigastric region) Extremities: + pedal edema (right - improved from yesterday's exam; now about 2 +; left leg about 1+ or less) Neurologic/Psychiatric: alert, oriented x 3 Skin: + pertinent finding (stasis changes b/l legs; old cat scratch near popliteal fossa on right - no cellulitis ) Laboratory Results Last 24 Hours Test 10/19/17 06:50 10/19/17 07:33 10/19/17 11:36 10/19/17 16:52 White Blood Count 4.70 K/uL Red Blood Count 3.21 M/uL Hemoglobin 8.8 g/dL Hematocrit 28.6 % Mean Corpuscular Volume 89.1 fL Mean Corpuscular Hemoglobin 27.4 pg Mean Corpuscular Hemoglobin Concent 30.8 g/dl RDW Standard Deviation 65.2 fL RDW Coefficient of Variation 19.9 % Platelet Count 199 K/uL Mean Platelet Volume 9.3 fL Absolute Reticulocyte Count 0.16 10^6/uL Percent Reticulocyte Count 5.1 % Prothrombin Time 20.4 SECONDS Prothromb Time International Ratio 2.0 Sodium Level 135 mmol/L Potassium Level 3.8 mmol/L Chloride Level 104 mmol/L Carbon Dioxide Level 21 mmol/L Anion Gap 10.0 mmol/L Blood Urea Nitrogen 85 mg/dl Creatinine 2.00 mg/dl Est Creatinine Clear Calc Drug Dose 22.8 ml/min Estimated GFR () 27.6 Estimated GFR (Non- 23.8 BUN/Creatinine Ratio 42.3 Random Glucose 85 mg/dl Calcium Level 8.0 mg/dl Bedside Glucose 92 mg/dl 114 mg/dl 149 mg/dl Test 10/19/17 20:07 Bedside Glucose 125 mg/dl Assessment and Plan 77yo female - 1. pasteurella septicemia - 2nd to cat scratch on right leg near the popliteal fossa. Repeat blood cultures thus far negative suggesting sterility of the blood. Day #5 of IV antibiotic therapy. Dr. Shen's consult appreciated; recommending total 14-day course of IV therapy ( unfortunately has numerous allergies). Spoke with pharmacy -- will narrow imipenem to ertapenem once daily (this will cover pasteurella, etc). Also spoke with Dr. Wong from nephrology - since she could potentially need dialysis in the next year he advised trying to hold off on PICC or midline. Will ask IV team to place the special peripheral IV that can remain for longer period of time than standard PIV. 2. acute/chronic anemia - s/p 1 unit PRBCs this admission. H/H now at baseline which is typically 8-9. Records reviewed - she has been told she has multiple reasons for her anemia including iron def, ACD from her CKD, etc. She might have low grade hemolysis from mechanical valve as well given her elevated retic count, spherocytes, etc. Send haptoglobin in am. CBC in am. 3. acute/chronic right-sided systolic CHF (acute/chronic cor pulmonale) - improved with higher dose of bumex 4mg BID. Pt reports baseline weight is 154 pounds; she is 161 pounds today. 4. CKD stage 4 - creatinine continues to be at baseline today (baseline 2 to 2.5). 5. acute kidney injury - likely 2nd to #1 above - resolved. 6. hyponatremia - likely multifactorial - follow w/ daily BMPs. Overall improved. 7. 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 currently subtherapeutic but INR rising. typically alternatives 3mg with 4mg at home. no additional coumadin today on top of usual dosing schedule. daily INR. 8. atrial fibrillation - rates controlled; also w/ pacer. 9. Heart block with single-chamber permanent pacemaker, last generator change 2008 - apparently has less than 6 months of battery remaining based on last interrogation. 10. HTN - controlled with current meds. 11. h/o stroke - coumadin for secondary-stroke prevention. 12. pulmonary hypertension - likely has contributed to cor pulmonale. 13. chronic pleural effusion on right status post PleurX catheter - daily drain as previous. managed in CT surgery clinic by Dr. Cueva. 14. T2DM - control acceptable at this time with lantus BID and novolog w/ meals. 15. c. diff colitis - remains on vancomycin QID by mouth. Day # 3 / 14. IMPROVING nicely. 16. hypothyroidism - synthroid; most recent TSH wnl. 17. h/o Crohn's disease - in remission?? 18. h/o breast cancer - noted. patient prefers NOT going to rehab following this admission IV abx will be needed at home or [facility] type setting see discussion above in #1 called Fidencio, pt's son, at home phone he was not at home the daughter in law answered informed her that pt may be d/c home tomorrow pending IV abx arrangements, etc Continued [facility] stay due to: multiple IV medications needed Discharge planning: home with home health, home with IV medication
[2017-10-19 21:21] VITALS: BP 131/60; PULSE 72
[2017-10-19] MEDS: DIAZEPAM 5MG TAB PO SCH (21:25)
[2017-10-19] MEDS: EZETIMIBE 10MG TAB PO SCH (21:25)
[2017-10-19 23:44] VITALS: O2SAT 98
[2017-10-19 23:58] VITALS: BP 95/55; PULSE 66; TEMP 36.9; O2SAT 97
[2017-10-20] MEDS: VANCOMYCIN HCL 125 MG/2.5ML SOLN PO SCH ×4 (00:20→17:46)
[2017-10-20] MEDS: RASPBERRY SYRUP 5 ML UDP PO SCH ×4 (00:20→17:46)
[2017-10-20] MEDS: LEVOTHYROXINE 175 MCG TAB PO SCH (05:57)
[2017-10-20 06:48] LABS: HEMATOCRIT 29.6 % (37-47); HEMOGLOBIN 9.4 g/dL (12.0-16.0); MEAN CELL VOLUME 88.9 fL (80-100); MEAN CORPUSCULAR HEMOGLOBIN 28.2 pg (25-34); MEAN CORPUSCULAR HGB CONC 31.8 g/dl (32-36); MEAN PLATELET VOLUME 9.6 fL (7.4-10.4); PLATELET COUNT 234 K/uL (130-400); RED CELL DISTRIBUTION WIDTH CV 19.6 % (11.5-14.5); RED CELL DISTRIBUTION WIDTH SD 64.5 fL (36.4-46.3); WHITE BLOOD COUNT 5.13 K/uL (4.8-10.8)
[2017-10-20 06:58] LABS: INR 2.3 (0.9-1.1)
[2017-10-20 07:02] VITALS: BP 103/49; PULSE 70; TEMP 36.6; O2SAT 96
[2017-10-20] MEDS: TROSPIUM~ORDER AWAITING ACTION SCH ×2 (07:06→16:00)
[2017-10-20] MEDS: MONTELUKAST SOD 10 MG TAB PO SCH (07:09)
[2017-10-20] MEDS: PYRIDOXINE HCL 50 MG TAB PO SCH (07:09)
[2017-10-20] MEDS: GEMFIBROZIL 600 MG TAB PO SCH (07:09)
[2017-10-20] MEDS: METOPROLOL SUCC 50MG EXT REL TAB PO SCH (07:09)
[2017-10-20] MEDS: CHOLECALCIFEROL 1000 INTER.UNIT TAB PO SCH ×2 (07:09→12:38)
[2017-10-20] MEDS: BUMETANIDE 1 MG TAB PO SCH (07:10)
[2017-10-20] MEDS: FEXOFENADINE HCL 180 MG TAB PO SCH (07:10)
[2017-10-20 07:14] LABS: CALCIUM 8.5 mg/dl (8.5-10.1); CREATININE 1.96 mg/dl (0.60-1.20); POTASSIUM 3.8 mmol/L (3.5-5.1)
[2017-10-20] MEDS: INSULIN GLARGINE SOLOSTAR 100 UNITS/ML 3 ML PEN SC SCH (07:59)
[2017-10-20] MEDS: INSULIN ASPART 100 UNITS/ML 3 ML PEN SC SCH ×2 (07:59→12:40)
[2017-10-20] MEDS: CHOLESTYRAMINE LIGHT 4 GM PKT PO SCH (09:35)
--- NOTE | 2017-10-20 10:41 | Nephrology Progress Note ---
Nephrology Progress Note Date of Service Oct 20, 2017. Chief Complaint ROSELYN / CKD Subjective Mrs. Morales was seen & examined in her hospital room this morning. She reports that her bowel movements are now formed. She has had a good response to oral Bumex therapy. Mrs. Morales notes that she is nearing her "dry weight" of 154 lbs (70 kg) Review of Systems Constitutional: No fever Cardiovascular: No chest pain Respiratory: No dyspnea at rest Abdomen: No pain, No diarrhea Genitourinary - Female: No dysuria Extremities: + leg edema A complete review of systems was performed. Pertinent positives are noted above. All other systems are negative. Vital Signs Last 8 Hrs Date Time Temp Pulse Resp B/P (MAP) Pulse Ox O2 Delivery O2 Flow Rate FiO2 10/20/17 08:30 Room Air 10/20/17 07:02 36.6 70 18 103/49 (67) 96 Room Air Last Recorded Weight Weight (Kilograms): 71.600 Physical Exam General Appearance: no apparent distress Head: normocephalic, atraumatic Eyes: PERRL, EOMI Neck: no adenopathy Respiratory/Chest: lungs clear, no respiratory distress Cardiovascular: regular rate, rhythm Abdomen/GI: normal bowel sounds, non tender, soft Extremities/Musculoskelatal: + pertinent finding (2+ pretibial pitting edema) Neurologic/Psych: alert, oriented x 3 Family History Cancer Diabetes mellitus Heart disease Hypertension Lung disease Social History Smoking Status: Never smoker Alcohol Use: none Drug Use: none Marital Status: Housing Status: lives with family Occupation: retired Laboratory Results Past 24 Hours 10/20/17 06:21 10/20/17 06:21 Test 10/19/17 11:36 10/19/17 16:52 10/19/17 20:07 10/20/17 06:21 Bedside Glucose 114 mg/dl (70-90) 149 mg/dl (70-90) 125 mg/dl (70-90) Red Blood Count 3.33 M/uL (4.2-5.4) Mean Corpuscular Volume 88.9 fL (80-100) Mean Corpuscular Hemoglobin 28.2 pg (25-34) Mean Corpuscular Hemoglobin Concent 31.8 g/dl (32-36) RDW Standard Deviation 64.5 fL (36.4-46.3) RDW Coefficient of Variation 19.6 % (11.5-14.5) Mean Platelet Volume 9.6 fL (7.4-10.4) Prothrombin Time 24.1 SECONDS (9.0-12.0) Prothromb Time International Ratio 2.3 (0.9-1.1) Anion Gap 10.0 mmol/L (3-11) Est Creatinine Clear Calc Drug Dose 23.0 ml/min Estimated GFR () 28.3 Estimated GFR (Non- 24.4 BUN/Creatinine Ratio 38.7 (10-20) Calcium Level 8.5 mg/dl (8.5-10.1) Test 10/20/17 07:37 Bedside Glucose 89 mg/dl (70-90) Allergies Coded Allergies: Penicillins (Verified Allergy, Severe, anaphylaxis 30yrs ago, also broke out with sores, 10/15/17) NOTE: Timentin 05/2003 tolerated without problem Diltiazem (Verified Allergy, Unknown, unknown, 10/15/17) Levofloxacin (Verified Allergy, Unknown, UNKNOWN, 10/15/17) Moxifloxacin (Verified Allergy, Unknown, UNKNOWN, 10/15/17) Aspirin (Verified Adverse Reaction, Intermediate, increased bleeding (on warfarin), 10/15/17) Doxycycline (Verified Adverse Reaction, Intermediate, GI SYMPTOMS, 10/15/17) Atorvastatin (Verified Adverse Reaction, Unknown, & Crestor = muscle aches /pains, 10/15/17) NSAIDs (Verified Adverse Reaction, Unknown, AVOID PER DR. HICKS - [id number] , 10/15/17) Nortriptyline (Verified Adverse Reaction, Unknown, choking on food, 10/15/17 ) Quinidine (Verified Adverse Reaction, Unknown, flu-like symptoms, 10/15/17) Sulfamethoxazole w/Trimethoprim (Verified Adverse Reaction, Unknown, CONFUSION, 10/15/17) Medications Current Inpatient Medications Medications (Trade) Dose Ordered Sig/Albin Route Start Time Stop Time Status Last Admin Dose Admin Acetaminophen (Tylenol Tab) 650 mg Q4H PRN PO 10/15/17 03:30 11/14/17 03:29 10/17/17 03:16 650 MG Ondansetron HCl (Zofran Inj) 4 mg Q6H PRN IV 10/15/17 03:30 11/14/17 03:29 Insulin Glargine (Lantus Solostar Pen) 10 units Q12 SC 10/15/17 09:00 11/14/17 08:59 10/20/17 07:59 10 UNITS Insulin Aspart (novoLOG ASPART) SLIDING SCALE If C... ACHS SC 10/15/17 06:30 11/14/17 06:59 10/20/17 07:59 5 UNITS Glucose (Glucose 40% Gel) 15-30 GRAMS 15 GRAMS... UD PRN PO 10/15/17 03:30 11/14/17 03:29 Glucose (Glucose Chew Tab) 4-8 Tablets 4 Tabl... UD PRN PO 10/15/17 03:30 11/14/17 03:29 Dextrose (Dextrose 50% 50ML Syringe) 25-50ML 25ML FOR ... UD PRN IV 10/15/17 03:30 11/14/17 03:29 Glucagon (Glucagon Inj) 1 mg UD PRN SQ 10/15/17 03:30 11/14/17 03:29 Carbohydrates (Carbohydrates For Hypoglycemia) 15-30 GRAMS 15 grams if BSG 54-69... UD PRN PO 10/15/17 03:30 11/14/17 03:29 Diazepam (Valium Tab) 5 mg HS PO 10/15/17 21:00 11/14/17 20:59 10/19/17 21:25 5 MG Digoxin (Lanoxin Tab) 0.125 mg DAILY@1600 PO 10/15/17 16:00 11/14/17 15:59 10/19/17 16:01 0.125 MG EZETIMIBE (Zetia Tab) 10 mg HS PO 10/15/17 21:00 11/14/17 20:59 10/19/17 21:25 10 MG Fexofenadine HCl (Vickie Tab) 180 mg QAM PO 10/15/17 09:00 11/14/17 08:59 10/20/17 07:10 180 MG Gemfibrozil (Lopid Tab) 600 mg BID PO 10/15/17 09:00 11/14/17 08:59 10/20/17 07:09 600 MG Hydralazine HCl (Apresoline Tab) 25 mg BID PO 8/1/18 09:00 11/14/17 08:59 10/20/17 07:10 25 MG Levothyroxine Sodium (Synthroid Tab) 175 mcg DAILYBB PO 10/15/17 06:30 11/14/17 06:59 10/20/17 05:57 175 MCG Metoprolol Succinate (Toprol Xl Tab) 100 mg DAILY PO 10/15/17 09:00 11/14/17 08:59 10/20/17 07:09 100 MG Montelukast Sodium (Singulair Tab) 10 mg QAM PO 10/15/17 09:00 11/14/17 08:59 10/20/17 07:09 10 MG Warfarin Sodium (Coumadin Tab) 3 mg DAILY@1600 PO 10/15/17 16:00 11/14/17 15:59 Future hold 10/19/17 16:01 3 MG Miscellaneous Information (Order Awaiting Action) 1 ea QS N/A 10/15/17 08:00 11/14/17 07:59 Albuterol/ Ipratropium (Duoneb) 3 ml Q4R PRN INH 10/15/17 04:15 11/14/17 04:14 Pyridoxine HCl (Vitamin B-6 Tab) 100 mg QAM PO 10/16/17 09:00 11/15/17 08:59 10/20/17 07:09 100 MG Cholecalciferol (Vitamin D Tab) 1,000 inter.unit TID PO 10/15/17 21:00 11/14/17 20:59 10/20/17 07:09 1,000 INTER.UNIT Cholestyramine Resin (Questran Powder Light) 4 gm BID@10,22 PO 10/17/17 22:00 11/16/17 21:59 10/20/17 09:35 4 GM Bumetanide (Bumex Tab) 4 mg QAM PO 10/18/17 09:00 11/17/17 08:59 10/20/17 07:10 4 MG Vancomycin HCl (Vancomycin Oral Soln) 125 mg Q6 PO 10/17/17 18:00 10/27/17 17:59 10/20/17 05:57 125 MG Raspberry (Raspberry Syrup 5ml Cup) 5 ml Q6 PO 10/17/17 18:00 10/27/17 17:59 10/20/17 05:57 5 ML Bumetanide (Bumex Tab) 4 mg DAILY@1700 PO 10/18/17 17:00 11/16/17 16:59 10/19/17 16:01 4 MG Ertapenem 500 mg/ Sodium Chloride 55 ml @ 110 mls/hr Q24H IV 10/19/17 12:00 11/02/17 11:59 10/19/17 11:36 110 MLS/HR Ertapenem (Consult) 1 ea UD PRN N/A 10/19/17 09:30 11/18/17 09:29 Impression 77-year-old female admitted w/ RLE swelling / cellulitis. She was bitten by her cat. Culture is + for Pasteurella. PMH - Stage IV CKD w/ creatinine 2.0 ( EGFR 28 cc/min). 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 Electrolyte balance is acceptable. -- Net 3800 cc diuresis overnight. Patient is nearing her "dry weight" of 154 lbs (70 kg) -- If discharge is anticipated please reduce Bumex back to pre-hospital dose of 2 mg TWO tablets each morning and ONE tablet each evening and have patient follow up w/ Dr. Wong in ~ 2 weeks ([phone]) ANEMIA: -- Patient has h/o breast CA and has [facility]. She had been on regular IV iron and SQ Aranesp -- Iron saturation 8% w/ ferritin 100 10/18/17. FOBT pending. Hold IV iron due to bacteremia -- Patient was transfused 1 U PRBC 10/17/17. Hgb improved from 7.4 to 8.7
[2017-10-20] MEDS: ERTAPENEM IV 500 MG in SODIUM CHLORIDE 0.9% 50 ML IV SCH (12:38)
[2017-10-20] MEDS: WARFARIN SOD 3 MG TAB PO SCH (16:29)
[2017-10-20] MEDS: DIGOXIN 0.125 MG TAB PO SCH (16:32)
[2017-10-20] MEDS ORDERED: WARF3TAB PO (17:13)
[2017-10-20] MEDS ORDERED: ERTA1INJ IV (17:13)
[2017-10-20] MEDS ORDERED: SACC250C3 PO (17:13)
[2017-10-20] MEDS ORDERED: VANC5CAP PO (17:13)
[2017-10-20] MEDS ORDERED: WARF4TAB8 PO (17:13)
[2017-10-20] MEDS ORDERED: WARFARIN SOD 1 MG TAB PO ONE (17:15)
[2017-10-20 17:20] VITALS: BP 103/49; PULSE 69; TEMP 36.6; O2SAT 96
--- NOTE | 2017-10-20 17:25 | Discharge Instructions ---
Discharge Instructions Date of Service Oct 20, 2017. Admission Reason for Admission: Infection of right leg from cat scratch Discharge Discharge Diagnosis / Problem: Blood stream infection due to cat scratch; c. diff diarrhea. Discharge Goals Goal(s): Learn about illness, Diagnostic testing, Therapeutic intervention Activity Recommendations Activity Limitations: as noted below For the next few days as you recover from your illness please "take it easy." No heavy exertional activities; light activities are fine. . Instructions / Follow-Up Instructions / Follow-Up From Dr. Bradley - 1. C diff infection/colitis - this is the cause of your recent diarrhea. You developed this because of the antibiotics for your blood stream infection. * Please take 11 days of vancomycin by mouth. Start your first dose upon return home this evening. * Take a "probiotic" capsule - prescription sent to [facility] along with the vancomycin. Take 1 capsule once a day. This may help speed recovery from this illness. 2. Ways to cut down the risk of spreading the c. 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 diff * frequent handwashing with soap and water for 30 seconds each time * wash linens, bedsheets, underwear on hot water cycle; add bleach if possible * limit visitors to your home * do not share kitchen utensils, etc * the contagiousness period is highest when you are having active diarrhea; the risk gradually goes down as your stools normalize * try to avoid using public restrooms for the next week so you don't pass the c. diff on to others 3. Cat scratch infection of right leg leading to blood stream infection - * you have 8 more doses of ertapenem antibiotic * this is a once daily IV antibiotic * we will attempt to "get by" with the IV in your arm * there is the potential that you will need another peripheral IV in the next week if the older IV doesn't work * keep the IV site clean and dry * ok to shower at this time but cover the IV during your shower * your most recent blood culture results were negative suggesting the blood stream infection has resolved 4. Coumadin - * take 3mg TOMORROW on Friday * then follow-up with the [facility] on Friday * your INR today is 2.3 5. anemia - your hemoglobin level today is 9.4 (for your information). This is stable over the last 3 days. 6. congestive heart failure - * take bumex 4mg every morning * take bumex 2mg every afternoon additional heart failure instructions - Call your Primary Care doctor if any of the following symptoms or problems start or get worse: * Shortness of breath or difficulty breathing * Wake up at night short of breath * Chest pain * Cough * Swelling of your hands, feet, or legs * More fatigued or tired with your normal activity * Palpitations - sudden fast heart beats WEIGHT * Weigh yourself every morning after using the bathroom. * Use the same scale. * Wear the same amount of clothing. * Write your weight down on a chart. * Call your Primary Care doctor, heart doctor, or kidney doctor if you gain more than 2-3 pounds in 1-2 days. This is a sign you are taking on fluid weight and you may need adjustments to your diuretic water pills. Don't delay - please call if you gain weight. MEDICATIONS * Use this discharge instruction sheet for medication instructions. * Take your medications at the time your doctor ordered. * Do not skip a dose of your medicines. * If you miss a dose of medicine, take it as soon as possible, but DO NOT DOUBLE A DOSE. * Read your medicine information when you get home. * Know all of the side effects of your medicine. If in doubt, ask your pharmacist * Call your Primary Care doctor's office if you have any side effects. * Be sure all of your doctors know what medicine and herbs you take (including cold, flu, and herbal medicine). Take the following with you to your follow-up doctor appointments: * Weight Chart * Medication List * List of questions Do not drink excessive alcohol, beer or wine. 7. Follow-up - see separate section for appointment information 8. Return to [facility] if - * your diarrhea returns/worsens despite the vancomycin oral antibiotic * you are more short of breath, gaining fluid weight, etc * you have chest pain * you are having troubles with your PleurX catheter * uncontrolled diabetes (sugars over 300) * fever over 100.5 * any other concerns Current Hospital Diet Patient's current hospital diet: Diabetes Type 2 Diet, Low Sodium Diet (2gm Na) Discharge Diet Recommended Diet: Low Sodium Diet (2gm Na), Diabetes Type 2 Diet, Low Fiber Diet Procedures Procedures Performed: CAT scan and ultrasound of right leg - normal, no blood clots, no deep infection. x-rays right leg - no broken bones. Pending Studies Studies pending at discharge: no Laboratory Results Hemoglobin A1c Test 10/17/17 06:51 Range/Units Estimated Average Glucose 85 mg/dl Hemoglobin A1c 4.6 4.5-5.6 % Medical Emergencies . Who to Call and When: Call 911 or go to the Emergency Room if: * If at any time you feel your situation is an emergency * You have tightness or pain in your chest that does not go away with rest or Nitroglycerin * You are very short of breath even with rest . Non-Emergent Contact Non-Emergency issues call your: Primary Care Provider Call Non-Emergent contact if: temperature is above 100.5, your pain is not controlled, your pain is worsening, your pain is unusual for you, your pain is concerning you, you have any medication questions . . "Provider Documentation" section prepared by Tariq Bradley. .
--- NOTE | 2017-10-21 08:59 | Discharge Summary ---
Discharge Summary Date of Service Oct 21, 2017. Discharge Summary Admission Date: Oct 15, 2017 at 03:33 Discharge Date: Oct 20, 2017 Discharge Disposition: Home with services Principal Diagnosis: septicemia 2nd to Pasteurella Problems/Secondary Diagnoses: Other hospital problems addressed: 1. cellulitis, RLE, 2nd to cat scratch 2. acute/chronic diastolic CHF / acute/chronic right-sided heart failure 3. c diff colitis 4. acute/chronic anemia 5. acute kidney injury - resolved Chronic medical problems: 1. Mitral valve disease status post Dowd-Lee ball and cage valve replacement in 1985 2. Permanent atrial fibrillation 3. Heart block with single-chamber permanent pacemaker, last generator change 2008 4. Left ventricular hypertrophy 5. Hypertension 6. Hypercholesterolemia 7. CKD stage 4 8. History of CVA 9. Pulmonary hypertension with chronic cor pulmonale 10. Chronic right-sided pleural effusion status post PleurX catheter 11. 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 h/o Crohn's disease 13. h/o left-sided breast cancer 14. hyponatremia - resolved 15. hypothyroidism Immunizations: Have You Had Influenza Vaccine: Yes Influenza Vaccine Date: Dec 23, 2010 History of Tetanus Vaccine?: utd History of Pneumococcal: Yes History of Hepatitis B Vaccine: No Procedures: 1. CT right leg - IMPRESSION: 1. Diffuse subcutaneous edema and skin thickening within the right lower leg consistent with a cellulitis. 2. No loculated fluid collection to suggest an abscess on this noncontrast study. 3. Bone infarct within the distal tibia. 2. RLE venous duplex study - negative for DVT. 3. PRBCs x 1 unit. Consultations: cardiology - Sarthak Tapia MD infectious disease - Jame Shen MD nephrology - Bryant Wong MD Medication Reconciliation New Medications: Ertapenem Sodium (Invanz) 1 Gm Inj 500 MG IV DAILY for 8 Days, #8 DOSE 0 Refills starting 10/21/17 Saccharomyces Boulardii (Florastor) 250 Mg Cap 250 MG PO DAILY for 12 Days, #12 CAP 0 Refills Vancomycin Hcl (Vancomycin) 125 Mg Cap 125 MG PO QID for 11 Days, #44 CAP 0 Refills Warfarin Sod (Jantoven) 4 Mg Tab 4 MG PO 3XWK, #30 TAB 0 Refills Changed Medications: Warfarin Sodium (Coumadin) 3 Mg Tab 3 MG PO 4XWK, #30 TAB 0 Refills (Changed from: DAILY; Refills: ) Continued Medications: Bumetanide (Bumex) 2 Mg Tab 4 MG PO QAM, TAB Bumetanide (Bumex) 2 Mg Tab 2 MG PO QPM, TAB Cholecalciferol (Vitamin D3) 1,000 Unit Cap 1000 INTER.UNIT PO TID Cyanocobalamin (Vitamin B-12) 1,000 Mcg Tab 1000 MCG PO QAM Diazepam (Valium) 5 Mg Tab 5 MG PO HS Diclofenac Sodium (Topical) (Diclofenac Sodium) 1 % Gel 1 APPLN TOP QID PRN for Pain-Affected Joints Digoxin (Digoxin) 0.125 Mg Tab 0.125 MG PO QAM Ezetimibe (Ezetimibe) 10 Mg Tab 10 MG PO HS Fexofenadine Hcl (Vickie) 180 Mg Tab 180 MG PO QAM, TAB Gemfibrozil (Gemfibrozil) 600 Mg Tab 600 MG PO BID TAKE THIS MEDICATION 30 MINUTES BEFORE BREAKFAST AND BEDTIME Hydralazine Hcl (Apresoline) 25 Mg Tab 25 MG PO BID Insulin Aspart (Novolog) 100 Units/Ml Inj 1 DOSE SC ACHS PRN for As Needed COVERAGE DIRECTED BY SLIDING SCALE Insulin Glargine (Lantus) 100 Unit/Ml Inj 20-60 UNITS SQ AMPM Levothyroxine Sodium (Synthroid) 175 Mcg Tab 175 MCG PO DAILY, TAB Metoprolol Succ (Toprol Xl) (Toprol-Xl ) 100 Mg Tabcr 100 MG PO DAILY, TAB Misc Natural Products (Osteo Bi-Flex Joint Shiel) 1 Tab Tab 1 TAB PO BID Montelukast Sod (Montelukast Sodium) 10 Mg Tab 10 MG PO QAM Pyridoxine (Vitamin B6) 100 Mg Tab 100 MG PO QAM Trospium Chloride (Trospium Chloride) 20 Mg Tab 20 MG PO DAILY Discontinued Medications: Lactulose (Chronulac) 10 Gm/15 Ml Syrp 15 GM PO QAM for 30 Days, #450 ML Spironolactone (Aldactone) 50 Mg Tab 50 MG PO BID for 30 Days, #60 TAB Discharge Exam Physical Exam: General Appearance: no apparent distress ENT: pharynx normal Neck: + JVD Respiratory/Chest: lungs clear, no respiratory distress, no accessory muscle use Cardiovascular: regular rate, rhythm, no gallop, + systolic murmur (2/6 LLSB ), + extra beats, + pertinent finding (mechanical valve sound) Abdomen / GI: normal bowel sounds, no organomegaly, + tenderness (minimal - epigastric region), + distended (mild) Extremities: + pedal edema (RLE>LLE; 1-2+ on right, <1+ on left; pulses 2+ b /l ) Neurologic/Psychiatric: alert, oriented x 3 Skin: + pallor (mild), + pertinent finding (old cat scratch near right popliteal fossa - no superimposed infection; stasis changes b/l legs; varicose veins b/l legs) Hospital Course HISTORY OF PRESENT ILLNESS: Ms Morales is a 77yo female with numerous medical problems including CKD stage 4 with baseline creatinine in the low 2s, chronic cor pulmonale and pulmonary HTN , chronic diastolic CHF, chronic right-sided pleurX catheter with daily draining , T2DM, and chronic anemia. Patient was a difficult historian at time of presentation. She presented to the ER with complaint of shortness of breath that started on the evening of admission. Upon arrival to the ER she was found to be 88% in room air. She was placed on 2L by ND with improvement to 100%. No further complaint of SOB. Her cat bit her on the posterior portion of her right calf earlier in the morning. Her cat is an indoor/outdoor cat. Patient then developed shaking chills and progressive RLE pain which prompted her to come to the ER. HOSPITAL COURSE: The patient ultimately was found to have septicemia with positive blood cultures for pasteurella multocida. This was due to the cat scratch on her right leg near the popliteal fossa. She was maintained on broad-spectrum IV antibiotic therapy and transitioned to ertapenem once daily prior to discharge. Repeat blood cultures later on in her stay were negative. She made nice clinical improvement while hospitalized. She was seen in consult by Dr. Jame Shen, infectious disease, who recommended a total course of 14 days of IV antibiotics. Thus, she will need 8 more days of once daily IV ertapenem after discharge starting 10/21/17. The ertapenem will be given via peripheral IVs at her home with the assistance of home health. Her stay was also complicated by: 1. acute/chronic anemia - she received 1 unit PRBCs this admission. Hemoglobin baseline is typically 8-9. Hemoglobin on day of discharge was 9.4. Her anemia is due to multiple issues including iron deficiency, ACD from her CKD , possible low-grade hemolysis from her mechanical valve, etc. She is due for [facility] (managed by Dr. Oneil Kaminski) on 10/22/17. 2. acute/chronic right-sided systolic CHF (acute/chronic cor pulmonale) and acute/chronic diastolic CHF - she had a copious diuresis during her stay, losing 10+ pounds while hospitalized. Discharge weight was 71.5kg. She will resume her normal diuretic regimen of bumex 4mg every AM and bumex 2mg every afternoon at discharge. Of note - her aldactone has been DISCONTINUED. 3. CKD stage 4 with mild acute kidney injury - peak creatinine was 2.7, improving to 1.9 on day of discharge. Baseline creatinine is typically 2 to 2.2. 4. 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 INR on 10/20/17 was 2.3. She will continue on alternating coumadin doses of 4mg and 3mg, respectively. She received 4mg of coumadin on 10/20/17. Follow-up with Dr. Araujo in the [facility] has been arranged for 10/22/17. 5. c. diff colitis - unfortunately the patient developed c. diff while hospitalized in the setting of broad-spectrum IV antibiotic therapy. She made rapid improvement with oral vancomycin. She will finish a 14-day course of vancomycin after discharge. Extensive c. diff instructions, methods to reduce transmission, etc were given at discharge. 6. chronic pleural effusion on right status post PleurX catheter - she will continue daily draining as previous. All other medical problems were otherwise stable while here. Total Time Spent: Greater than 30 minutes This includes examination of the patient, discharge planning, medication reconciliation, and communication with other providers. Discharge Instructions Please refer to the electronic Patient Visit Report (Discharge Instructions) for additional information. Follow-Up 1. [facility] on FridayOctober 22 at 10:30 am 2. [facility] on FridayOctober 27 at 11:00 am Additional Copies To Bryant Wong M.D.; Phoenix Klein III, CRNP; Haley Araujo M.D., PHD
== END 2017-10-20 18:14 | disposition home health service (06) | DRG 867 ==
LOC: EDBD 01:30 → C.EDA 01:31 → C.MS2W 03:33 → ENRESERV 03:56
PROVIDERS: ADMIT Internal Medicine; ATTEND Internal Medicine
DX: A28.0 Pasteurellosis (principal); L03.115 Cellulitis of right lower limb; I10 Essential (primary) hypertension; S81.851A Open bite, right lower leg, initial encounter; W55.01XA Bitten by cat, initial encounter; I50.33 Acute on chronic diastolic (congestive) heart failure; Y92.009 Unspecified place in unspecified non-institutional (private) residence as the place of occurrence of the external cause; J45.909 Unspecified asthma, uncomplicated; N18.4 Chronic kidney disease, stage 4 (severe); A04.72 Enterocolitis due to Clostridium difficile, not specified as recurrent; N17.9 Acute kidney failure, unspecified; A28.1 Cat-scratch disease; J90 Pleural effusion, not elsewhere classified; I48.91 Unspecified atrial fibrillation; Z86.718 Personal history of other venous thrombosis and embolism; E11.21 Type 2 diabetes mellitus with diabetic nephropathy; Z95.0 Presence of cardiac pacemaker; Z86.73 Personal history of transient ischemic attack (TIA), and cerebral infarction without residual deficits; Z95.2 Presence of prosthetic heart valve; Z88.0 Allergy status to penicillin; Z88.6 Allergy status to analgesic agent; Z83.3 Family history of diabetes mellitus; Z82.49 Family history of ischemic heart disease and other diseases of the circulatory system; E03.9 Hypothyroidism, unspecified; I50.812 Chronic right heart failure; D64.9 Anemia, unspecified; E78.5 Hyperlipidemia, unspecified; I27.29 Other secondary pulmonary hypertension; Z85.3 Personal history of malignant neoplasm of breast; E87.1 Hypo-osmolality and hyponatremia

== ENCOUNTER → 2017-11-07 | Outpatient (CLI) | payer BC ==
[~2017-11-07] MED LIST changes: +ERTA1INJ IV; -LACT10SO53 PO; +SACC250C3 PO; -SPIR50TA5 PO; +VANC5CAP PO; +WARF4TAB8 PO; -WELCHOL PO
--- NOTE | 2017-11-07 12:21 | DIAGNOSTIC IMAGING REPORT ---
CHEST 2 VIEWS ROUTINE CLINICAL HISTORY: 77 years-old Female presenting with PLEURAL EFFUSION. TECHNIQUE: PA and lateral views of the chest were obtained. COMPARISON: 10/15/2017. FINDINGS: Left subclavian pacer with single lead to the right ventricular apex. Large bore right pleural drain remains positioned at the right lung base. Median sternotomy wires and prosthetic aortic valve noted. Atherosclerosis of aortic arch. Enlargement of the main pulmonary artery, unchanged. Cardiac silhouette moderately enlarged, unchanged. Persistent pulmonary vascular prominence. Coarsened lung markings unchanged. Persistent right basilar opacity and small right pleural effusion. No pneumothorax. Degenerative changes of the thoracic spine. Anterior vertebral body height loss of one of the lumbar vertebral bodies, likely L3. This is unchanged since 10/08/2017. IMPRESSION: 1. Right pleural drain remains positioned at the right lung base with persistent small right pleural effusion and right infiltrate, possibly atelectasis. 2. Cardiomegaly with volume overload/congestive change. No jhonny pulmonary edema. 3. Enlarged main pulmonary artery suggesting pulmonary artery hypertension. Electronically signed by: Adam Nagel M.D. 11/07/2017 12:19 PM Dictated Date/Time: 11/07/2017 12:17 PM
[2017-11-07 13:18] LABS: BASO % 0.6 %; BASO ABS # 0.03 K/uL (0-0.2); EOS % 2.4 %; EOS ABS # 0.13 K/uL (0-0.5); HEMATOCRIT 29.2 % (37-47); HEMOGLOBIN 9.1 g/dL (12.0-16.0); IG# 0.01 K/uL (0.00-0.02); LYMPH ABS # 0.48 K/uL (1.2-3.4); MEAN CELL VOLUME 88.5 fL (80-100); MEAN CORPUSCULAR HEMOGLOBIN 27.6 pg (25-34); MEAN CORPUSCULAR HGB CONC 31.2 g/dl (32-36); MEAN PLATELET VOLUME 9.5 fL (7.4-10.4); MONO % 21.1 %; MONO ABS # 1.13 K/uL (0.11-0.59); NEUT % 66.7 %; NEUT ABS # 3.57 K/uL (1.4-6.5); PLATELET COUNT 231 K/uL (130-400); RED CELL DISTRIBUTION WIDTH CV 18.1 % (11.5-14.5); RED CELL DISTRIBUTION WIDTH SD 59.2 fL (36.4-46.3); WHITE BLOOD COUNT 5.35 K/uL (4.8-10.8)
[2017-11-07 14:03] LABS: ALBUMIN 2.7 gm/dl (3.4-5.0); ALKALINE PHOSPHATASE 108 U/L (45-117); ALT/SGPT 25 U/L (12-78); AST/SGOT 43 U/L (15-37); BLOOD UREA NITROGEN 95 mg/dl (7-18); CALCIUM 8.3 mg/dl (8.5-10.1); CARBON DIOXIDE 26 mmol/L (21-32); CREATININE 2.61 mg/dl (0.60-1.20); GLUCOSE 97 mg/dl (70-99); POTASSIUM 3.2 mmol/L (3.5-5.1); SODIUM 136 mmol/L (136-145); TOTAL PROTEIN 7.1 gm/dl (6.4-8.2)
== END | disposition home or self-care (01) ==
LOC: C.RAD1850 11:34
PROVIDERS: ATTEND Nurse Practitioner Family
DX: J90 Pleural effusion, not elsewhere classified (principal); D64.9 Anemia, unspecified; N18.4 Chronic kidney disease, stage 4 (severe); I50.32 Chronic diastolic (congestive) heart failure

== ENCOUNTER 2017-11-10 16:59 | Emergency (ER) | payer BC ==
[~2017-11-10] VITALS: Ht 157.5 cm; Wt 79.3 kg
[2017-11-10 17:00] VITALS: TEMP 36.9; Ht 157.5 cm; Wt 79.3 kg
--- NOTE | 2017-11-10 17:20 | EMERGENCY ROOM VISIT NOTE ---
History Report prepared by Dianne: Cedrick Quinn Under the Supervision of: Dr. Bry Martinez M.D. First contact with patient: 17:02 Chief Complaint: FALL Stated Complaint: FALL/ HEAD INJURY History of Present Illness The patient is a 77 year old female who presents to the Emergency Room with complaints of pain in her left shoulder and left side of her head that began following a falling episode that occurred at 1600, 1 hour ago. The fall was mechanical as she was trying to stand up out of a wheeled chair. The patient is currently complaining of a headache, but notes that the shoulder hurts worse. She landed on the left shoulder on the fall. The patient did not lose consciousness. She denies any chest pain, shortness of breath, or abdominal pain. The patient is on Coumadin. The patient has a catheter in the right side of the abdomen that is drained daily. Source of History: patient Onset: 1 hour ago Position: shoulder (left) Quality: other (pain from fall) Timing: other (single falling episode today, pain since) Associated Symptoms: + headache, No LOC, No chest pain, No SOB, No abdominal pain Review of Systems See HPI for pertinent positives & negatives. A total of 10 systems reviewed and were otherwise negative. Past Medical & Surgical Medical Problems: (1) Acute kidney injury (2) Acute pancreatitis (3) Acute respiratory failure with hypoxia (4) Acute systolic congestive heart failure (5) Acute urinary tract infection (6) Asthma (7) Atrial fibrillation (8) Cardiac pacemaker procedure (9) CKD (chronic kidney disease) (10) Contrast dye induced nephropathy (11) Deep venous thrombosis (12) Diabetes mellitus (13) Hip pain (14) History of mitral valve replacement with mechanical valve (15) PERSONAL HX OF TIA,& CEREBRAL INFARCTION W/OUT RES DEFICITS (16) Pneumonia (17) Replacement of mitral valve with mechanical prosthesis (18) Sepsis Surgical Problems: (1) Cholecystectomy (2) Hysterectomy Old medical records were reviewed. Nurse's notes were reviewed and I agree with. Family History Cancer Diabetes mellitus Heart disease Hypertension Lung disease Social History Smoking Status: Never Smoker Alcohol Use: none Drug Use: none Marital Status: Housing Status: lives with family Occupation Status: retired Current/Historical Medications Scheduled Bumetanide (Bumex), 4 MG PO QAM Bumetanide (Bumex), 2 MG PO QPM Cholecalciferol (Vitamin D3), 1,000 INTER.UNIT PO TID Cyanocobalamin (Vitamin B-12), 1,000 MCG PO QAM Diazepam (Valium), 5 MG PO HS Digoxin (Digoxin), 0.125 MG PO QAM Ertapenem Sodium (Invanz), 500 MG IV DAILY Ezetimibe (Ezetimibe), 10 MG PO HS Fexofenadine Hcl (Vickie), 180 MG PO QAM Gemfibrozil (Gemfibrozil), 600 MG PO BID Hydralazine Hcl (Apresoline), 25 MG PO BID Insulin Glargine (Lantus), 20-60 UNITS SQ AMPM Levothyroxine Sodium (Synthroid), 175 MCG PO DAILY Metoprolol Succ (Toprol Xl) (Toprol-Xl ), 100 MG PO DAILY Misc Natural Products (Osteo Bi-Flex Joint Shiel), 1 TAB PO BID Montelukast Sod (Montelukast Sodium), 10 MG PO QAM Pyridoxine (Vitamin B6), 100 MG PO QAM Saccharomyces Boulardii (Florastor), 250 MG PO DAILY Trospium Chloride (Trospium Chloride), 20 MG PO DAILY Vancomycin Hcl (Vancomycin), 125 MG PO QID Warfarin Sod (Jantoven), 4 MG PO 3XWK Warfarin Sodium (Coumadin), 3 MG PO 4XWK Scheduled PRN Diclofenac Sodium (Topical) (Diclofenac Sodium), 1 APPLN TOP QID PRN for Pain- Affected Joints Insulin Aspart (Novolog), 1 DOSE SC ACHS PRN for As Needed Allergies Coded Allergies: Penicillins (Verified Allergy, Severe, anaphylaxis 30yrs ago, also broke out with sores, 11/10/17) NOTE: Timentin 05/2003 tolerated without problem Diltiazem (Verified Allergy, Unknown, unknown, 11/10/17) Levofloxacin (Verified Allergy, Unknown, UNKNOWN, 11/10/17) Moxifloxacin (Verified Allergy, Unknown, UNKNOWN, 11/10/17) Aspirin (Verified Adverse Reaction, Intermediate, increased bleeding (on warfarin), 11/10/17) Doxycycline (Verified Adverse Reaction, Intermediate, GI SYMPTOMS, 11/10/17 ) Atorvastatin (Verified Adverse Reaction, Unknown, & Crestor = muscle aches /pains, 11/10/17) NSAIDs (Verified Adverse Reaction, Unknown, AVOID PER DR. HICKS - [id number] , 11/10/17) Nortriptyline (Verified Adverse Reaction, Unknown, choking on food, ) Quinidine (Verified Adverse Reaction, Unknown, flu-like symptoms, 11/10/17) Sulfamethoxazole w/Trimethoprim (Verified Adverse Reaction, Unknown, CONFUSION, 11/10/17) Physical Exam Vital Signs Date Time Temp Pulse Resp B/P (MAP) Pulse Ox O2 Delivery O2 Flow Rate FiO2 11/10/17 20:40 76 18 116/62 96 Room Air 11/10/17 19:40 78 18 118/60 94 Room Air 11/10/17 18:45 69 18 125/55 95 Room Air 11/10/17 17:00 36.9 66 20 127/63 94 Room Air Physical Exam General: Chronically-ill appearing older female in no acute distress. HEENT: Normal cephalic atraumatic. Pupils are equal round and reactive to light. Extraocular movements are intact. Oropharynx is pink with moist mucous membranes. No swelling of the mouth lips or tongue. Neck: Supple with a midline trachea. No meningeal signs or stiffness, no JVD or bruits. No Stridor. Chest: Clear to auscultation bilaterally. No wheezes or rhonchi. No increased work of breathing. Heart: regular rate and rhythm. Abdomen: Soft nontender, nondistended without rebound guarding or rigidity. Extremities: No cyanosis clubbing. Chronic bilateral LE edema. No calf tenderness or assymetry. There is tenderness to the left anterior superior shoulder. Spine/Back. Non tender to palpation. No CVA tenderness Skin: Good turgor without rashes. Neurologic exam: Cranial nerves two through 12 are intact. Motor and sensation are intact and symmetrical throughout. GCS of 15. Medical Decision & Procedures ER Provider Diagnostic Interpretation: Radiology results as stated below per my review and radiologist interpretation: L SHOULDER MIN 2 VIEWS ROUTINE HISTORY: 77 years-old Female EVAL FRO TRAUMA acute posttraumatic left shoulder pain COMPARISON: Chest radiograph 11/10/2017 and 11/07/2017 TECHNIQUE: 3 views of the left shoulder FINDINGS: Left subclavian pacer is again noted. Cardiomegaly with calcification of the aorta. Prior median sternotomy with prosthetic mitral valve. Bones appear mildly demineralized. Mild glenohumeral and moderate AC joint osteoarthritis without acute fracture or dislocation identified. IMPRESSION: No acute fracture or dislocation. The above report was generated using voice recognition software. It may contain grammatical, syntax or spelling errors. Electronically signed by: Anand Hermosillo M.D. 11/10/2017 7:42 PM Dictated Date/Time: 11/10/2017 7:41 PM CERVICAL SPINE W/O CT DOSE: 839.87 mGy.cm CLINICAL HISTORY: 77 years-old Female with eval for trauma. Acute posttraumatic neck injury COMPARISON: Head CT of same day, CT cervical spine 08/31/2017 TECHNIQUE: Multiple axial CT images of the cervical spine were obtained without contrast. A dose lowering technique was utilized adhering to the principles of ALARA. FINDINGS: No acute fracture or subluxation of the cervical spine. The bones appear mildly demineralized. A few millimeters of anterolisthesis involving C4 on C5, and C5 on C6 is unchanged. Posterior disc osteophyte complex formations seen notably at C4-C5 through C6-C7 appear unchanged. Advanced multilevel facet arthropathy. Nuchal ligament calcifications are noted. Multilevel spondylitic spurring. Partially calcified pannus posterior to odontoid process. Multilevel chondrocalcinosis about the disc spaces. Mastoid air cells and middle ear cavities are clear. No prevertebral soft tissue swelling. Secretions are noted within the upper trachea, partially imaged. Soft tissues are within normal limits. Imaged lung apices appear clear. IMPRESSION: No acute cervical spine fracture or subluxation. The above report was generated using voice recognition software. It may contain grammatical, syntax or spelling errors. Electronically signed by: Anand Hermosillo M.D. 11/10/2017 6:29 PM Dictated Date/Time: 11/10/2017 6:26 PM CHEST ONE VIEW PORTABLE CLINICAL HISTORY: Chest pain. COMPARISON STUDY: Chest radiograph November 07, 2017. FINDINGS: Note is made of a left subclavian pacemaker, median sternotomy wires and prosthetic mitral valve. A right pleural catheter remains in place. There is no pneumothorax. There may be a trace right pleural effusion. Moderate cardiomegaly is noted. There are suspected mild pulmonary edema. Bibasilar opacities persist. IMPRESSION: 1. No change in pulmonary vascular congestion with suspected mild pulmonary edema. 2. Bibasilar opacities which favor atelectasis although an infectious process could appear similar. 3. Right basilar pleural catheter in place. No pneumothorax. Electronically signed by: Randy Melton M.D. 11/10/2017 6:54 PM Dictated Date/Time: 11/10/2017 6:51 PM HEAD WITHOUT CONTRAST (CT) CLINICAL HISTORY: 77 years-old Female with eval for trauma. Acute post traumatic head injury status post fall TECHNIQUE: Multiple axial CT images of the head were obtained without contrast. A dose lowering technique was utilized adhering to the principles of ALARA. COMPARISON: CT cervical spine of same day, CT head 08/31/2017. FINDINGS: No acute intracranial hemorrhage, midline shift, intracranial mass, hydrocephalus, territorial ischemia or abnormal extra-axial collection. Mild age-related involutional changes. Mild ill-defined low-attenuation about the periventricular white matter suggests chronic microvascular ischemic changes. Remote lacunar infarction of the right caudate nucleus. Remote subcentimeter remote infarctions about the bilateral cerebellar hemispheres. The calvarium is intact. Prior bilateral cataract repair. The paranasal sinuses, mastoid air cells, and middle ear cavities are clear. IMPRESSION: No acute intracranial abnormality or calvarial fracture. The above report was generated using voice recognition software. It may contain grammatical, syntax or spelling errors. Electronically signed by: Anand Hermosillo M.D. 11/10/2017 6:25 PM Dictated Date/Time: 11/10/2017 6:22 PM Laboratory Results 11/10/17 17:51 Red Blood Count 3.09, Mean Corpuscular Volume 88.3, Mean Corpuscular Hemoglobin 27.5, Mean Corpuscular Hemoglobin Concent 31.1, Mean Platelet Volume 9.4, Neutrophils (%) (Auto) 72.8, Lymphocytes (%) (Auto) 14.4, Monocytes (%) (Auto) 9.2, Eosinophils (%) (Auto) 2.8, Basophils (%) (Auto) 0.6, Neutrophils # (Auto) 3.88, Lymphocytes # (Auto) 0.77, Monocytes # (Auto) 0.49, Eosinophils # (Auto) 0.15, Basophils # (Auto) 0.03 11/10/17 17:51 Test 11/10/17 17:51 11/10/17 18:03 White Blood Count 5.33 K/uL (4.8-10.8) Red Blood Count 3.09 M/uL (4.2-5.4) Hemoglobin 8.5 g/dL (12.0-16.0) Hematocrit 27.3 % (37-47) Mean Corpuscular Volume 88.3 fL (80-100) Mean Corpuscular Hemoglobin 27.5 pg (25-34) Mean Corpuscular Hemoglobin Concent 31.1 g/dl (32-36) Platelet Count 252 K/uL (130-400) Mean Platelet Volume 9.4 fL (7.4-10.4) Neutrophils (%) (Auto) 72.8 % Lymphocytes (%) (Auto) 14.4 % Monocytes (%) (Auto) 9.2 % Eosinophils (%) (Auto) 2.8 % Basophils (%) (Auto) 0.6 % Neutrophils # (Auto) 3.88 K/uL (1.4-6.5) Lymphocytes # (Auto) 0.77 K/uL (1.2-3.4) Monocytes # (Auto) 0.49 K/uL (0.11-0.59) Eosinophils # (Auto) 0.15 K/uL (0-0.5) Basophils # (Auto) 0.03 K/uL (0-0.2) RDW Standard Deviation 59.2 fL (36.4-46.3) RDW Coefficient of Variation 18.1 % (11.5-14.5) Immature Granulocyte % (Auto) 0.2 % Immature Granulocyte # (Auto) 0.01 K/uL (0.00-0.02) Prothrombin Time 50.4 SECONDS (9.0-12.0) Prothromb Time International Ratio 5.0 (0.9-1.1) Activated Partial Thromboplast Time 40.6 SECONDS (21.0-31.0) Partial Thromboplastin Ratio 1.6 Anion Gap 12.0 mmol/L (3-11) Est Creatinine Clear Calc Drug Dose 19.2 ml/min Estimated GFR () 21.4 Estimated GFR (Non- 18.5 BUN/Creatinine Ratio 42.4 (10-20) Calcium Level 7.5 mg/dl (8.5-10.1) Total Bilirubin 0.4 mg/dl (0.2-1) Direct Bilirubin 0.2 mg/dl (0-0.2) Aspartate Amino Transf (AST/SGOT) 42 U/L (15-37) Alanine Aminotransferase (ALT/SGPT) 28 U/L (12-78) Alkaline Phosphatase 107 U/L (45-117) Total Protein 6.6 gm/dl (6.4-8.2) Albumin 2.4 gm/dl (3.4-5.0) Lipase 304 U/L (73-393) Bedside Troponin I < 0.030 ng/ml (0-0.045) Laboratory studies as stated above per my review. Medications Administered Medications (Trade) Dose Ordered Sig/Albin Route Start Time Stop Time Status Last Admin Dose Admin Morphine Sulfate (MoRPHine SULFATE INJ) 2 mg NOW STAT IV 11/10/17 18:38 11/10/17 18:40 DC 11/10/17 18:51 2 MG ECG Per My Interpretation Indication: back/shoulder pain, other (Trauma ) Rate (beats per minute): 66 Rhythm: normal sinus Findings: RBBB, no acute ischemic change, other (Poor baseline) Comparison ECG Date: 10/15/2017 Change: Sinus has replaced paced rhythm. ED Course 1704: Past medical records reviewed. The patient was evaluated in room A2, and a complete history and physical examination were performed. 1901: I checked on the patient at this time. She is resting comfortably, she denies wanting admission. 2021: The patient wants to go home at this time. She has an appointment with Dr. Akhtar on Friday morning, she will hold her Coumadin until then. She adamantly wants to go home and feels completely safe. Medical Decision Differentials include, but are not limited to; head injury, orthopedic injuries , cardiac disease, electrolyte or metabolic abnormality. This patient comes in as described above. She suffered a mechanical fall when she fell try to sit on chair . there was no syncope or other symptoms to suggest that this is anything but a mechanical fall. She did hit her head. she is on Coumadin and she has left shoulder pain. She does a lot of chronic problems but says there is nothing else acute going on. I did a CAT scan of her head and it was unremarkable. Shoulder x-ray is unremarkable. Chest x-ray shows some chronic findings and some atelectasis but no traumatic injury. EKG does not show any definite ischemic changes or significant arrhythmia. She has renal insufficiency which looks about baseline the BUN slightly worse than last time and creatinine is slightly better. She has some mild anemia. Her INR was supratherapeutic at 5 at this point she is no active bleeding. I talked to her at length I told her I am very concerned about her falling with an elevated INR. I suggest that we could admit her to the hospital for observation and further treatment and evaluation. She adamantly denies and feel she is safe to go home would like to go home. She has a follow-up appointment on Friday with the Coumadin clinic she is to hold her Coumadin until then and has not taken her Coumadin today yet. This will be the next 2 dosages. She has a mechanical heart valve so she cannot stop this completely. She acknowledges this. Again she was encouraged to be careful getting up and down return if any new problems or concerns and have close follow-up with her regular doctor in the next 1 to 2 days for recheck. She is happy the plan and discharged to home. Head Trauma GCS Score: 15 Medication Reconcilliation Current Medication List: was personally reviewed by me Blood Pressure Screening Patient's blood pressure: Normal blood pressure Impression Primary Impression: Concussion Additional Impressions: Shoulder contusion Anticoagulated Scribe Attestation The scribe's documentation has been prepared under my direction and personally reviewed by me in its entirety. I confirm that the note above accurately reflects all work, treatment, procedures, and medical decision making performed by me. Departure Information Dispostion Home / Self-Care Referrals Phoenix Klein III, CRNP (PCP) Forms HOME CARE DOCUMENTATION FORM, IMPORTANT VISIT INFORMATION Patient Instructions My [facility] Additional Instructions Rest Drink plenty of fluids Hold your Coumadin/warfarin today and tomorrow and keep your appointment Friday morning at Coumadin clinic. You need to get further directions from them about restarting it Be extremely careful in getting up and down. Your blood is very thin and you need to make sure you do not fall Return to the ER if: Worsening of symptoms, fever or chills, bleeding, lightheadedness or dizziness, chest pain, any new problems or concerns Follow-up with your doctor in 1-2 days for recheck Problem Qualifiers
[2017-11-10 18:14] LABS: BASO % 0.6 %; BASO ABS # 0.03 K/uL (0-0.2); EOS % 2.8 %; EOS ABS # 0.15 K/uL (0-0.5); HEMATOCRIT 27.3 % (37-47); HEMOGLOBIN 8.5 g/dL (12.0-16.0); IG# 0.01 K/uL (0.00-0.02); LYMPH % 14.4 %; LYMPH ABS # 0.77 K/uL (1.2-3.4); MEAN CELL VOLUME 88.3 fL (80-100); MEAN CORPUSCULAR HEMOGLOBIN 27.5 pg (25-34); MEAN CORPUSCULAR HGB CONC 31.1 g/dl (32-36); MEAN PLATELET VOLUME 9.4 fL (7.4-10.4); MONO % 9.2 %; MONO ABS # 0.49 K/uL (0.11-0.59); NEUT % 72.8 %; NEUT ABS # 3.88 K/uL (1.4-6.5); PLATELET COUNT 252 K/uL (130-400); RED CELL DISTRIBUTION WIDTH CV 18.1 % (11.5-14.5); RED CELL DISTRIBUTION WIDTH SD 59.2 fL (36.4-46.3); WHITE BLOOD COUNT 5.33 K/uL (4.8-10.8)
--- NOTE | 2017-11-10 18:26 | DIAGNOSTIC IMAGING REPORT ---
HEAD WITHOUT CONTRAST (CT) CLINICAL HISTORY: 77 years-old Female with eval for trauma. Acute post traumatic head injury status post fall TECHNIQUE: Multiple axial CT images of the head were obtained without contrast. A dose lowering technique was utilized adhering to the principles of ALARA. COMPARISON: CT cervical spine of same day, CT head 08/31/2017. FINDINGS: No acute intracranial hemorrhage, midline shift, intracranial mass, hydrocephalus, territorial ischemia or abnormal extra-axial collection. Mild age-related involutional changes. Mild ill-defined low-attenuation about the periventricular white matter suggests chronic microvascular ischemic changes. Remote lacunar infarction of the right caudate nucleus. Remote subcentimeter remote infarctions about the bilateral cerebellar hemispheres. The calvarium is intact. Prior bilateral cataract repair. The paranasal sinuses, mastoid air cells, and middle ear cavities are clear. IMPRESSION: No acute intracranial abnormality or calvarial fracture. The above report was generated using voice recognition software. It may contain grammatical, syntax or spelling errors. Electronically signed by: Anand Hermosillo M.D. 11/10/2017 6:25 PM Dictated Date/Time: 11/10/2017 6:22 PM
--- NOTE | 2017-11-10 18:31 | DIAGNOSTIC IMAGING REPORT ---
CERVICAL SPINE W/O CT DOSE: 839.87 mGy.cm CLINICAL HISTORY: 77 years-old Female with eval for trauma. Acute posttraumatic neck injury COMPARISON: Head CT of same day, CT cervical spine 08/31/2017 TECHNIQUE: Multiple axial CT images of the cervical spine were obtained without contrast. A dose lowering technique was utilized adhering to the principles of ALARA. FINDINGS: No acute fracture or subluxation of the cervical spine. The bones appear mildly demineralized. A few millimeters of anterolisthesis involving C4 on C5, and C5 on C6 is unchanged. Posterior disc osteophyte complex formations seen notably at C4-C5 through C6-C7 appear unchanged. Advanced multilevel facet arthropathy. Nuchal ligament calcifications are noted. Multilevel spondylitic spurring. Partially calcified pannus posterior to odontoid process. Multilevel chondrocalcinosis about the disc spaces. Mastoid air cells and middle ear cavities are clear. No prevertebral soft tissue swelling. Secretions are noted within the upper trachea, partially imaged. Soft tissues are within normal limits. Imaged lung apices appear clear. IMPRESSION: No acute cervical spine fracture or subluxation. The above report was generated using voice recognition software. It may contain grammatical, syntax or spelling errors. Electronically signed by: Anand Hermosillo M.D. 11/10/2017 6:29 PM Dictated Date/Time: 11/10/2017 6:26 PM
[2017-11-10 18:32] LABS: PTT PATIENT 40.6 SECONDS (21.0-31.0)
[2017-11-10 18:34] LABS: ALBUMIN 2.4 gm/dl (3.4-5.0); CALCIUM 7.5 mg/dl (8.5-10.1); CREATININE 2.47 mg/dl (0.60-1.20); POTASSIUM 3.5 mmol/L (3.5-5.1); TOTAL PROTEIN 6.6 gm/dl (6.4-8.2)
[2017-11-10] MEDS ORDERED: MoRPHine SULFATE 2 MG/ML CARP IV STA (18:38)
--- NOTE | 2017-11-10 18:55 | DIAGNOSTIC IMAGING REPORT ---
CHEST ONE VIEW PORTABLE CLINICAL HISTORY: Chest pain. COMPARISON STUDY: Chest radiograph November 07, 2017. FINDINGS: Note is made of a left subclavian pacemaker, median sternotomy wires and prosthetic mitral valve. A right pleural catheter remains in place. There is no pneumothorax. There may be a trace right pleural effusion. Moderate cardiomegaly is noted. There are suspected mild pulmonary edema. Bibasilar opacities persist. IMPRESSION: 1. No change in pulmonary vascular congestion with suspected mild pulmonary edema. 2. Bibasilar opacities which favor atelectasis although an infectious process could appear similar. 3. Right basilar pleural catheter in place. No pneumothorax. Electronically signed by: Randy Melton M.D. 11/10/2017 6:54 PM Dictated Date/Time: 11/10/2017 6:51 PM
--- NOTE | 2017-11-10 19:44 | DIAGNOSTIC IMAGING REPORT ---
L SHOULDER MIN 2 VIEWS ROUTINE HISTORY: 77 years-old Female EVAL FRO TRAUMA acute posttraumatic left shoulder pain COMPARISON: Chest radiograph 11/10/2017 and 11/07/2017 TECHNIQUE: 3 views of the left shoulder FINDINGS: Left subclavian pacer is again noted. Cardiomegaly with calcification of the aorta. Prior median sternotomy with prosthetic mitral valve. Bones appear mildly demineralized. Mild glenohumeral and moderate AC joint osteoarthritis without acute fracture or dislocation identified. IMPRESSION: No acute fracture or dislocation. The above report was generated using voice recognition software. It may contain grammatical, syntax or spelling errors. Electronically signed by: Anand Hermosillo M.D. 11/10/2017 7:42 PM Dictated Date/Time: 11/10/2017 7:41 PM
[2017-11-10 20:40] VITALS: BP 116/62; PULSE 76; O2SAT 96
== END 2017-11-10 20:34 | disposition home or self-care (01) ==
LOC: EDBD 16:59 → C.EDA 17:00
DX: S06.0X0A Concussion without loss of consciousness, initial encounter (principal); S40.012A Contusion of left shoulder, initial encounter; W18.30XA Fall on same level, unspecified, initial encounter; Z79.01 Long term (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 of anticoagulants; J45.909 Unspecified asthma, uncomplicated; I48.91 Unspecified atrial fibrillation; Z95.0 Presence of cardiac pacemaker; N18.9 Chronic kidney disease, unspecified; E11.22 Type 2 diabetes mellitus with diabetic chronic kidney disease; Z96.89 Presence of other specified functional implants; Z79.4 Long term (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 of insulin; Z79.899 Other long term (current) drug therapy; Z95.2 Presence of prosthetic heart valve; Z88.0 Allergy status to penicillin; Z88.1 Allergy status to other antibiotic agents; Z88.2 Allergy status to sulfonamides; Z88.6 Allergy status to analgesic agent; Z88.8 Allergy status to other drugs, medicaments and biological substances; I45.10 Unspecified right bundle-branch block

== ENCOUNTER 2018-03-12 10:44 | Inpatient (IN) ==
[2018-03-12] MEDS ORDERED: HYDROmorphone INJ 0.5 MG/0.5 ML SYR IV PRN (11:05)
[2018-03-12] MEDS ORDERED: ONDANSETRON INJ 2 MG/ML 2 ML VIAL IV STA (11:05)
--- NOTE | 2018-03-12 11:35 | XRay Report ---
XR elbow RT 2V CLINICAL HISTORY: Right elbow pain following fall. COMPARISON: Right elbow radiographs December 23, 2016. FINDINGS: Alignment of the right elbow is anatomic. No acute fracture or joint effusion is noted. IMPRESSION: No fracture. Electronically signed by: Randy Melton M.D. 03/12/2018 11:34 AM
[2018-03-12 11:39] LABS: INR 2.6 (0.9-1.1); Partial Thromboplastin Ratio 1.3; Partial Thromboplastin Time 32.6 Seconds (21.0-31.0); Prothrombin Time 24.6 Seconds (9.0-12.0)
[2018-03-12 11:40] LABS: Hematocrit (blood only) 19.1 % (37-47); Mean Corpuscular Hgb Conc 31.4 g/dL (32-36); Mean Platelet Volume 9.4 fL (7.4-10.4); Platelet Count 215 K/uL (130-400); RDW Coefficient of Variation 16.8 % (11.5-14.5); White Blood Count 7.09 K/uL (4.8-10.8)
--- NOTE | 2018-03-12 11:44 | XRay Report ---
XR chest 1V portable CLINICAL HISTORY: Fall. COMPARISON STUDY: Chest radiograph February 17, 2018. FINDINGS: Note is made of median sternotomy wires, left-sided pacer and prosthetic cardiac valve. Mod erate cardiomegaly is unchanged. There is no pneumothorax. Right basilar pleural catheter remains in place. A small right pleural effusion is unchanged. Suspected nipple shadow projects over the left lo wer lung. There is pulmonary vascular congestion. Linear bibasilar opacities favor atelectasis. IMPRESSION: 1. No pneumothorax. 2. No change in a small right pleural effusion with right pleural catheter in place. 3. Pleural vascular congestion with suspected mild pulmonary edema. Electronically signed by: Randy Melton M.D. 03/12/2018 11:43 AM
[2018-03-12 11:50] LABS: Albumin Level 2.7 gm/dl (3.4-5.0); BUN Creatinine Ratio 41.6 (10-20); Calcium 8.2 mg/dl (8.5-10.1); Creatinine Clr Calc Pharmacy 15.3 ml/min; Est GFR (African American) 17.5; Est GFR (Non-African American) 15.1; Potassium 3.3 mmol/L (3.5-5.1)
[2018-03-12 11:55] LABS: Albumin Globulin Ratio 0.6 (0.9-2); Bilirubin,Total 0.4 mg/dl (0.1-1); Globulin 4.7 gm/dl (2.5-4.0); Total Protein 7.4 gm/dl (6.4-8.2); Troponin I 0.025 ng/ml (0-0.045)
[2018-03-12 12:03] LABS: Anisocytosis Present; Basophilic Stippling 1+; Basophils # (auto) 0.02 K/uL (0-0.2); Basophils % (auto) 0.3 %; Eosinophils % (auto) 2.8 %; Immature Granulocytes # (auto) 0.02 K/uL (0.00-0.02); Immature Granulocytes % (auto) 0.3 %; Lymphocytes # (auto) 0.48 K/uL (1.2-3.4); Lymphocytes % (auto) 6.8 %; Monocytes # (auto) 1.32 K/uL (0.11-0.59); Monocytes % (auto) 18.6 %; Neutrophils # (auto) 5.05 K/uL (1.4-6.5); Neutrophils % (auto) 71.2 %; Polychromasia 1+; Spherocytes 1+
[2018-03-12 12:23] LABS: iSTAT Hemoglobin 6.1 g/dl (12.0-16.0); iSTAT Ionized Calcium 1.11 mmol/l (1.12-1.32)
--- NOTE | 2018-03-12 13:13 | CT Scan Report ---
CT cervical spine wo con CLINICAL HISTORY: 77 years-old Female presenting with Pt c/o spine pain s/p fall. TECHNIQUE: Multidetector CT of the cervical spine was performed without the use of intravenous contra st. IV contrast: None. A dose lowering technique was used consistent with the principles of ALARA (as low as reasonably achievable). COMPARISON: 11/10/2017. CT DOSE (mGy.cm): The estimated cumulative dose is not available. FINDINGS: [employer] topogram: Left subclavian single lead pacer with lead to the right ventricular apex. Prostatic valve noted with median sternotomy wires. Right pleural drain position at the right lung base. Cardio megaly. Normal cervical lordosis. Vertebral bodies maintain normal height and alignment. Mild intervertebral disc height loss noted at C6-7. Ossification of the nucleus pulposus of the intervertebral discs note d to varying degrees at nearly every level. Prominent disc osteophyte complexes at C4-5 through C6-7 with posterior bony spurring to a mild to moderate degree. There is also a prominent calcification of the ligamentum flavum along the left aspect at the level of C5 resulting in further narrowing of the spinal canal at this level. Mild facet arthropathy is evident in the mid cervical spine. Facet arthr opathy and uncovertebral hypertrophy result in osseous neural foraminal narrowing bilaterally at C4-5 , on the left at C5-6, and bilaterally at C6-7. No acute fracture or acute subluxation. Lung apices c lear. Paraspinal soft tissues within normal limits. IMPRESSION: 1. No acute osseous injury of the cervical spine. 2. Multilevel degenerative changes. Electronically signed by: Adam Nagel M.D. 03/12/2018 1:12 PM
--- NOTE | 2018-03-12 13:13 | CT Scan Report ---
CT head/brain wo con CLINICAL HISTORY: Head pain status post trauma COMPARISON STUDY: November 10, 2017 TECHNIQUE: Axial CT of the brain is performed from the vertex to the skull base. IV contrast was not administered for this examination. A dose lowering technique was utilized adhering to the principles of ALARA. CT DOSE: FINDINGS: No intra or extra-axial mass lesions are visualized. There is no CT evidence of acute cortical infarc tion. There is no evidence of midline shift. There is no acute hemorrhage. No calvarial fractures ar e visualized. There are patchy white matter hypodensities likely on a small vessel basis. 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 There is no evidence of pathologic ventricular dilatation. There is no evidence of acute sinusitis. There is an age-indeterminate nasal bone fracture. IMPRESSION: 1. No acute intracranial findings 2. Age-indeterminate nasal bone fracture Electronically signed by: Nikita Culp M.D. 03/12/2018 1:06 PM
--- NOTE | 2018-03-12 13:14 | CT Scan Report ---
CT facial bones wo con CT DOSE: CLINICAL HISTORY: Facial pain status post trauma COMPARISON STUDY: No previous studies for comparison. TECHNIQUE: Helical images were acquired in the transverse plane. The study was reviewed and analyzed on the independent 3-D workstation. A dose lowering technique was utilized adhering to the principle s of ALARA. The pterygoid plates appear intact. The zygomatic arches appear intact. The globes appear intact. There is no evidence of orbital emphysema. The orbital snow and floor appear intact. The mandibular condyles appear intact. IMPRESSION: 1. Age-indeterminate nasal bone fractures 2. No additional facial fractures identified. Electronically signed by: Nikita Culp M.D. 03/12/2018 1:12 PM
--- NOTE | 2018-03-12 13:22 | CT Scan Report ---
CT thoracic spine wo con CT DOSE: CLINICAL HISTORY: Thoracic spine pain status post trauma TECHNIQUE: Helical images were acquired in transverse plane. Sagittal and coronal reformatted images were acquired. A dose lowering technique was utilized adhering to the principles of ALARA. COMPARISON STUDY: None. FINDINGS: There are mild multilevel degenerative changes present. No acute fractures or traumatic sub luxations are visualized. There are nonspecific basilar airspace opacities, likely atelectatic althou gh an infectious etiology cannot be excluded. There is no evidence for a paraspinal hematoma. There i s a very small right pleural effusion. IMPRESSION: 1. Mild degenerative change 2. No acute fractures or traumatic subluxations 3. Small right pleural effusion Electronically signed by: Nikita Culp M.D. 03/12/2018 1:20 PM
--- NOTE | 2018-03-12 13:23 | CT Scan Report ---
CT abd pelvis wo con CLINICAL HISTORY: 77 years-old Female presenting with Pt multiple falls. TECHNIQUE: Multidetector CT of the abdomen and pelvis was performed without the use of intravenous co ntrast. IV contrast: None. A dose lowering technique was used consistent with the principles of ALARA (as low as reasonably achievable). COMPARISON: 12/31/2017. CT DOSE (mGy.cm): The estimated cumulative dose is 1756.84 mGy.cm. FINDINGS: Guyline Operator topogram: Left subclavian single lead pacer. Prosthetic valve and median sternotomy wires. Card iomegaly. Pleural drain position at the right lung base. Lung bases: Extensive interlobular septal thickening at the lung bases. Pulmonary arteries are enlarg ed relative to adjacent bronchi. Dependent linear and solid consolidation likely atelectasis. Persist ent small right pleural effusion unchanged. The right pleural drain remains positioned in the right p osterior costophrenic sulcus. Prosthetic mitral valve. Partially visualized single lead pacer to the right ventricular apex. Multichamber enlargement of the heart. Calcification of the left atrium snow suggested. No pericardial effusion. Liver: Enlarged. Normal density. Relative hypertrophy of the left hepatic lobe and atrophy of the rig ht hepatic lobe. There is a subtle micronodular contour of the liver. These findings suggest cirrhosi s. Biliary: No gross biliary ductal dilatation allowing for noncontrast technique. Gallbladder surgicall y absent. Pancreas: Mild parenchymal atrophy. Spleen: Normal noncontrast appearance. Top normal in size. Adrenal glands: Normal noncontrast appearance. Kidneys and ureters: Nonobstructing 3 mm calculus in the interpolar region of the right kidney. No hy dronephrosis. Normal, noncontrast appearance of the kidneys. Ureters nondistended. Bladder: Normal noncontrast appearance. Pelvic organs: Uterus surgically absent. No adnexal masses. Bowel: Mild stool burden throughout normal caliber colon. The appendix is normal. No bowel obstructio n. Peritoneal cavity: Trace abdominal pelvic ascites. No free intraperitoneal gas. Lymph nodes: No gross lymphadenopathy allowing for noncontrast technique. Vasculature: Atherosclerosis of the normal caliber abdominal aorta. The IVC is dilated suggesting hyp ervolemia. Abdominal wall: Diffuse body wall edema. Musculoskeletal: Osteopenia. Degenerative changes of the spine. Severe central predominant compressio n deformity of the superior endplate of L3 with a lesser degree of compression of the anterior aspect of the vertebral body. Slight retropulsion of the posterior-superior corner of the L3 vertebral body . This compression fracture is unchanged from the prior exam. Anterolisthesis of L4 on L5 noted, like ly degenerative in etiology. IMPRESSION: 1. Allowing for noncontrast technique, no acute intra-abdominal injury. 2. Volume overload with anasarca, ascites, right pleural effusion, and congestive change in the lung s. 3. Cirrhosis and hepatomegaly. 4. Nonobstructing 3 mm right renal calculus. 5. Persistent small right pleural effusion with a right pleural drain in place. 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 6. Chronic compression fracture of L3. 7. Cardiomegaly. Electronically signed by: Adam Nagel M.D. 03/12/2018 1:22 PM
--- NOTE | 2018-03-12 13:28 | CT Scan Report ---
CT lumbar spine wo con CLINICAL HISTORY: Lumbar spine pain following fall. COMPARISON STUDY: Lumbar spine CT August 31, 2017. TECHNIQUE: Axial images of the lumbar spine were obtained without IV contrast. Sagittal and coronal r econstructions were viewed. Study was performed utilizing automated exposure control for dose reducti on. Study was performed according to ALARA principles. FINDINGS: Please note that the CT of the abdomen and pelvis will be reported separately. Grade one an terolisthesis of L4 and L5 is unchanged exam of August 31, 2017. A moderate L3 compression fracture is again noted. This was shown on exam of August 31, 2017. Concavity with loss of vertebral body height bhandari s slightly increased. Minimal retropulsion is unchanged. A mild compression fracture involving the in ferior endplate of L2 is also unchanged since that exam. There is no acute lumbar spine fracture. The re is severe multilevel facet arthrosis and moderate multilevel degenerative disc disease. Central ca nal and neural foramen are suboptimally assessed by CT. IMPRESSION: 1. No acute lumbar spine fracture or subluxation. 2. Redemonstration of an L3 compression fracture with interval increase in concavity and loss of kassie tebral body height. No significant change in an old L2 compression fracture. 3. Severe multilevel facet arthrosis and moderate multilevel degenerative disc disease. Electronically signed by: Randy Melton M.D. 03/12/2018 1:27 PM
--- NOTE | 2018-03-12 16:06 | History & Physical Report ---
Addendum entered and electronically signed by Drake Garcia MD 03/12/18 18: 12: Addendum (Blank) Addendum March 12, 2018 18:11 Clarified with pt She is DNR Original Note: Date of Service March 12, 2018 Assessment & Plan (1) Fall: Pt is a 77 year old female with a pmhx significant for chronic anemia requiring transfusions (baseline hgb 7-8), cirrhosis, lumbar stress fracture x2 , hypothyroidism, CHF, CKD stage 4, pulm HTN, mechanical heart valve, stroke x3 , COPD, Pleural effusion, and recurrent pleural effusions with pleur-x catheter in place. She presented to the [facility] ED on 03/12 2 days s/p fall for evaluation of arm pain R>L. #Fall (active) Occured 2 days ago, no loc, pt does endorse recent hx of decreasing strength. Numerous bruises and significant laceration to her face. also endorsing b/l arm pain. CT in the ED showed volume overload 2/2 cirrhosis, 3mm non obstructing renal calculus, persistant right pleural effusion, chronic compression fx of L3. Head Ct was negative, Face ct age indeterminate nasal fx. -Admit to obs -Analgesia tylenol for pain <5 for pain >5 morphine 2mg, Voltaren prn -Monitor for si/sx of compartment syndrome -PT/OT evaluation #Right Arm Pain (active) Pt is barely able to raise arm against gravity s/p fall. Suspect pt likely injured a nerve and nerve is now stunned. Pt had negative CT in the ED, would consider MRI but pt is unable 2/2 to mechanical valve and pace maker. On exam it appeared as if pt musculature was functioning correctly. Elbow fracture negative -Analgesia as above -Ortho Cx to evaluate for compartment syndrome/tendon rupture -PT/OT #Anemia (active) Pt is chronically anemic with baseline hgb 7-8, source of anemia is unknown thought per pt thought to be a small bleeding vessel. She is currently s/p 2 units of pRBC last Friday. On admission HGB was 6.0, pt denies si/sx of anemia however this could have contributed to her fall -Transfuse 1 unit pRBC -Daily CBC, transfuse for HGB<6.5 -f/u iron studies -continue chronic regimen B12, B6, #CHF (active) Patient does not seem to be in acute decompensated CHF. She states her weight is stable. Concern for LE edema -Continue Home Bumex 4mg po bid and metalazone 5 mg po 3xwk -Continue Metoprolol 100mg po daily -Continue Hydralazine 25mg po BID -Continue Digoxin 125 mcg daily #Hypokalemia Chronic, treated in the past -20 meq KCL TID -Trend Daily CMP #DMII (active) Last HBA1c unknown, will order with morning labs -Lantus 20 u BID -SSI -BSG checks AC/HS -F/U A1C FENA: DMII and Heart Healthy Diet DVTPPX: On Warfarin Code: advanced directive DISPO: Home cx'd care coodinator #Stress Fracture Ct shows stress fracture still present at L3, L2 resolving, and chronic degenerative changes -analgesia, adequate calcium intake -pt/ot ealuation #History of mitral valve replacement with mechanical valve (active) Stable. therapeutic INR at 2.6 today -continue home Coumadin -Trend INR daily -Goal 2.5-3.5 in patient with mechanical valve #COPD Stable sating 97% on room air has pleurex for chronic effusion - Duonebs qid PRN - Begin Spirva #Pleural effusion, right (active) Ct showed congestive changes in her lungs and PleurX catheter in place -Monitor output -Wound/ostomy nursing consult for management #Cirrhosis (active) Patient with mild ascites on exam, clinically volume overloaded, ct scan showed anasarca, ascites. Liver function test WNL -Continue home diuretic regimen as above -Monitor K -Low Na diet as tolerated #AFIB (active) Rate controlled on AC #CAD (active) -Continue Zetia -continue gemfibrozil #CKD (active) Baseline CR is 2.5, 2.9 2/2 to poor perfusion from anemia on admission has followed with Dr. Dr. Wong in the past -Trend daily BMP -Continue Diuretic regimen as tolerated #HTN (active) Stable -continue home regimen hydralazine, metoprolol #Hypothyroidism (active) Last tsh 2.12 -continue 175mcg levothyroxine qam #GERD (active) -continue ranitidine 150mg BID -Continue Pantoprazole 40mg #Overactive Bladder (active) -continue Trospium #Seasonal Allergies (active) -continue Vickie and montelukast #Insomnia(active) Diazapam #Back Pain Hydrocortisone, lidocaine patch, Voltaran History of Present Illness Primary Care Provider: CC: Arm pain R>L HPI:Pt is a 77 year old female with a pmhx significant for chronic anemia requiring transfusions (baseline hgb 7-8), cirrhosis, lumbar stress fracture x2 , hypothyroidism, CHF, CKD stage 4, pulm HTN, mechanical heart valve, stroke x3 , COPD, and recurrent pleural effusions with pleur-x catheter in place. She presented to the [facility] ED on 03/12 2 days s/p fall for evaluation of arm pain R> L. Briefly over the past few months the patient has noticed her strength has been decreasing. On she went outside to feed the birds while returning to her house she tripped on the steps up to her porch and fell using her hands to brace herself. Pt reports her neighbor was home at the time and helped her back into the house. Pt did not note any ripping or tearing noise when she feel, nor did she loose consciousness before, during, or after the episode. She states the whole thing happened so fast she did not know what happened. During the fall she hit her face which at the time bleed profusely however currently is asyx aside from bruising. The day after her fall she contacted her pcp who recommended that she put vasoline on her lips. The following day her arm pain continued to increase and her home health nurse evaluated her saying she needed to be seen by a doctor, she contacted her family doctor who recommended she be evaluated in the ED. Currently pt's cc is arm pain R>L, she is no longer bleeding, and vital signs are stable. Pt does not recall any recent hx of Sore throat, cough, congestion, head ache, fevers, chills, chest pain, sob, N/V/D, constipation, abdominal pain , change in color or consistency of her stool or urine or other acute si/sx of infectious process. 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 Pt has home health aid ,,,every other Friday and can call home instead for assistance with her . Remote drinking hx, no smoking, no drugs ROS: as above Allergies Allergy/AdvReac Type Severity Reaction Status Date / Time Penicillins Allergy Severe anaphylaxis Verified 03/12/18 12:01 30yrs ago, also broke out with sores diltiazem Allergy Unknown unknown Verified 03/12/18 12:01 levofloxacin Allergy Unknown UNKNOWN Verified 03/12/18 12:01 moxifloxacin Allergy Unknown UNKNOWN Verified 03/12/18 12:01 aspirin AdvReac Intermediate increased Verified 03/12/18 12:01 bleeding (on warfarin) doxycycline AdvReac Intermediate GI SYMPTOMS Verified 03/12/18 12:01 atorvastatin AdvReac Unknown & Crestor Verified 03/12/18 12:01 = muscle aches/pains Bactrim AdvReac Unknown CONFUSION Verified 11/10/17 17:54 nortriptyline AdvReac Unknown choking on Verified 03/12/18 12:01 food NSAIDS (Non-Steroidal AdvReac Unknown AVOID PER Verified 03/12/18 12:01 Anti-Inflamma DR. HICKS - [id number] quinidine AdvReac Unknown flu-like Verified 03/12/18 12:01 symptoms sulfamethoxazole AdvReac Unknown CONFUSION Verified 03/12/18 12:01 trimethoprim AdvReac Unknown CONFUSION Verified 03/12/18 12:01 clonidine AdvReac Unknown Verified 03/12/18 12:01 hydrocodone AdvReac Unknown Verified 03/12/18 12:01 Home Medications Home Medications Medication Instructions Recorded Confirmed Type Saccharomyces boulardii [Florastor] 250 mg PO DAILY 11/18/17 03/12/18 History cholecalciferol (vitamin D3) 1,000 unit PO TID 11/18/17 03/12/18 History [Vitamin D3] cyanocobalamin (vitamin B-12) 1,000 mcg PO DAILY 11/18/17 03/12/18 History [Vitamin B-12] diazepam 5 mg PO BID PRN 11/18/17 03/12/18 History diclofenac sodium [Voltaren] 1 applic TOPICAL QID PRN 11/18/17 03/12/18 History digoxin 125 mcg PO DAILY 11/18/17 03/12/18 History ezetimibe [Zetia] 10 mg PO HS 11/18/17 03/12/18 History fexofenadine [Vickie Allergy] 180 mg PO DAILY 11/18/17 03/12/18 History gemfibrozil 600 mg PO BID17 11/18/17 03/12/18 History insulin aspart U-100 [Novolog 0 unit SUBCUT DAILY 11/18/17 03/12/18 History U-100 Insulin aspart] levothyroxine [Synthroid] 175 mcg PO QAM 11/18/17 03/12/18 History metoprolol succinate [Toprol XL] 100 mg PO DAILY 11/18/17 03/12/18 History montelukast [Singulair] 10 mg PO DAILY 11/18/17 03/12/18 History pyridoxine (vitamin B6) 100 mg PO DAILY 11/18/17 03/12/18 History trospium 20 mg PO DAILY 11/18/17 03/12/18 History insulin glargine 20 - 60 units SUBCUT AMPM 11/24/17 03/12/18 History hydralazine 25 mg tablet 25 mg PO BID tab 12/03/17 03/12/18 History bumetanide 4 mg PO BID 12/23/17 03/12/18 History hydrocortisone 1 applic EXT QID #15 g 01/01/18 03/12/18 Rx lidocaine 1 patch TRANSDERMAL QAM #1 ea 01/01/18 03/12/18 Rx metolazone 5 mg PO 3XWK PRN #30 tab 01/01/18 03/12/18 Rx pantoprazole 40 mg PO QAM #30 tab 01/01/18 03/12/18 Rx potassium chloride 20 meq PO BID #60 tab 01/01/18 03/12/18 Rx ranitidine HCl 150 mg PO BID #60 tab 01/01/18 03/12/18 Rx ipratropium-albuterol 0.5 mg-3 3 ml INH QID PRN 02/16/18 03/12/18 History mg(2.5 mg base)/3 mL nebulization soln warfarin 4 mg tablet 4 mg PO 3XWK 02/25/18 03/12/18 History glucosamine-chondroitin [Osteo 1 tab PO TID 03/12/18 03/12/18 History Bi-Flex] warfarin 3 mg PO 4XWK 03/12/18 03/12/18 History Past Med/Surg History Medical History Anticoagulated Compression fracture of lumbar vertebra Greater trochanteric bursitis of left hip Depression Iron deficiency Hypothyroidism CHF (congestive heart failure) Anemia (Acute) CKD (chronic kidney disease) stage 4, GFR 15-29 ml/min (Acute) Elevated BUN (Acute) Pulmonary hypertension (Chronic) Essential hypertension (Chronic) Cor pulmonale (chronic) (Chronic) Diabetes mellitus (Chronic 08/25/12) Atrial fibrillation (Chronic 08/25/12) Asthma (Chronic 08/25/12) Cirrhosis (Chronic) COPD (chronic obstructive pulmonary disease) (Chronic) Pleural effusion, right (Chronic) S/P R sided Pleur-X catheter by Dr. Cueva Cirrhosis (Chronic) Acute respiratory failure with hypoxia (Resolved) Cardiac pacemaker procedure (Resolved 10/31/12) Acute on chronic combined systolic and diastolic CHF (congestive heart failure) History of mitral valve replacement with mechanical valve On Coumadin therapy - follows with Dr. Araujo - goal INR 2.5-3.5 Dowd-Lee valve Hypertension Pacemaker Surgical History S/P placement of cardiac pacemaker Medtronic single-chamber permanent pacemaker. Unipolar lead. At [facility] Family History Other Diabetes mellitus HTN (hypertension) Social History Current Living Situation: Spouse Current Living Situation Comment: has brought spouse, who has dementia, home from [facility] Feels Safe at Home: Yes Safety Concerns: Feels Safe At This Time Smoking Status: Never smoker Do You Dip or Chew Tobacco: No Hx Alcohol Use: No Hx Substance Use: No Beliefs That Will Affect Care: None Preferred Language: Yakut Communication Ability: Effective Care Attendant Required: No Review of Systems All systems reviewed & are unremarkable except as noted in HPI & below Physical Exam 2 Vital Signs (Past 24 Hours): Last Vital Signs Temp 37.0 C 03/12/18 11:29 Pulse 84 03/12/18 15:24 Resp 16 03/12/18 15:24 BP 115/58 L 03/12/18 15:24 Pulse Ox 97 03/12/18 15:24 Constitutional: + ill appearing, + thin, + frail appearing and cooperative Eyes: normal visual murray by confrontation Neck: trachea midline, no thyromegaly Thyroid: normal thyroid Respiratory: normal respiratory effort, lungs clear to auscultation Auscultation: lungs clear to auscultation bilaterally Cardiovascular: Rate/Rhythm: regular rate and regular rhythm Vessels: no JVD Extremities: no calf tenderness Mechanical heart valve noises Gastrointestinal (Abdomen): normal bowel sounds, soft, nontender, no hepatosplenomegaly Musculoskeletal: Head: Numerous bruises, pt reports nose okay, laceration on lip and bruising, ROM intact Arms: Left: strength 2-3/5 pt reports pain in forearm, elbow, bicep some bruising, did not appreciate significant swelling on exam, visually muscles appear to function and no si of rupture Right: Strength 4-5/5, pt reports pain in her elbow, bruising present, did not appreciate significant swelling on exam visually muscles appear to function and no si of rupture Legs: Bruising and some pain 2+ pedeal edema above the knee Skin: + dry skin and + ecchymosis Psychiatric: A+Ox3, euthymic affect Orientation: cooperative Apperance: appropriately dressed and appropriately groomed Eye Contact: good eye contact Speech: normal rate/rhythm/volume of speech (Speech is slow ) Thought Process: linear/logical thought process and + tangential thought process Estimated Intelligence: average estimated intelligence Insight: + fair insight Judgement: + fair judgement Results & Data Laboratory Results 03/12/18 03/12/18 03/12/18 Range/Units 11:22 11:12 11:12 WBC (4.8-10.8) K/uL RBC (4.2-5.4) M/uL Hgb (12.0-16.0) g/dL POC Hgb 6.1 L* (12.0-16.0) g/dl Hct (37-47) % POC Hct 18 L* (37-47) % MCV (80-100) fL MCH (25-34) pg MCHC (32-36) g/dL RDW Std Deviation (36.4-46.3) fL RDW Coeff of Marco (11.5-14.5) % Plt Count (130-400) K/uL MPV (7.4-10.4) fL Immature Gran % (Auto) % Neut % (Auto) % Lymph % (Auto) % [place] % (Auto) % Eos % (Auto) % Baso % (Auto) % Immature Gran # (Auto) (0.00-0.02) K/uL Neut # (Auto) (1.4-6.5) K/uL Lymph # (Auto) (1.2-3.4) K/uL [place] # (Auto) (0.11-0.59) K/uL Eos # (Auto) (0-0.5) K/uL Baso # (Auto) (0-0.2) K/uL Polychromasia Basophilic Stippling Anisocytosis Spherocytes PT (9.0-12.0) Seconds INR (0.9-1.1) APTT (21.0-31.0) Seconds PTT Ratio POC Sodium 135 (135-144) mEq/L Sodium (136-145) mmol/L POC Potassium 3.3 (3.3-5.0) mEq/L Potassium (3.5-5.1) mmol/L POC Chloride 97 L (101-112) mEq/L Chloride (98-107) mmol/L Carbon Dioxide (21-32) mmol/L POC Total CO2 24 (24-31) mEq/l Anion Gap (3-11) POC Anion Gap 18.0 (16-25) mmol/L POC BUN 115 H* (7-18) mg/dl BUN (7-18) mg/dl Creatinine (0.6-1.2) mg/dl POC Creatinine 3.0 H (0.6-1.3) mg/dl Est Cr Clr Drug Dosing ml/min Est GFR ( Amer) Est GFR (Non-Af Amer) BUN/Creatinine Ratio (10-20) Glucose (70-99) mg/dl POC Glucose (other) 108 H (70-99) mg/dl Calcium (8.5-10.1) mg/dl POC Ioniz Calcium Fadi 1.11 L (1.12-1.32) mmol/l Total Bilirubin (0.1-1) mg/dl AST (15-37) U/L ALT (12-78) U/L Alkaline Phosphatase (45-117) U/L Total Creatine Kinase 67 (26-192) U/L Troponin I (0-0.045) ng/ml Total Protein (6.4-8.2) gm/dl Albumin (3.4-5.0) gm/dl Globulin (2.5-4.0) gm/dl Albumin/Globulin Ratio (0.9-2) Blood Type A Positive Antibody Screen POSITIVE A Antibody Identification Anti-c Crossmatch See Detail 03/12/18 03/12/18 03/12/18 Range/Units 11:12 11:12 11:12 WBC 7.09 (4.8-10.8) K/uL RBC 2.10 L (4.2-5.4) M/uL Hgb 6.0 L* (12.0-16.0) g/dL POC Hgb (12.0-16.0) g/dl Hct 19.1 L* (37-47) % POC Hct (37-47) % MCV 91.0 (80-100) fL MCH 28.6 (25-34) pg MCHC 31.4 L (32-36) g/dL RDW Std Deviation 55.0 H (36.4-46.3) fL RDW Coeff of Marco 16.8 H (11.5-14.5) % Plt Count 215 (130-400) K/uL MPV 9.4 (7.4-10.4) fL Immature Gran % (Auto) 0.3 % Neut % (Auto) 71.2 % Lymph % (Auto) 6.8 % [place] % (Auto) 18.6 % Eos % (Auto) 2.8 % Baso % (Auto) 0.3 % Immature Gran # (Auto) 0.02 (0.00-0.02) K/uL Neut # (Auto) 5.05 (1.4-6.5) K/uL Lymph # (Auto) 0.48 L (1.2-3.4) K/uL [place] # (Auto) 1.32 H (0.11-0.59) K/uL Eos # (Auto) 0.20 (0-0.5) K/uL Baso # (Auto) 0.02 (0-0.2) K/uL Polychromasia 1+ Basophilic Stippling 1+ Anisocytosis Present Spherocytes 1+ PT 24.6 H (9.0-12.0) Seconds INR 2.6 H (0.9-1.1) APTT 32.6 H (21.0-31.0) Seconds PTT Ratio 1.3 POC Sodium (135-144) mEq/L Sodium 133 L (136-145) mmol/L POC Potassium (3.3-5.0) mEq/L Potassium 3.3 L (3.5-5.1) mmol/L POC Chloride (101-112) mEq/L Chloride 100 (98-107) mmol/L Carbon Dioxide 23 (21-32) mmol/L POC Total CO2 (24-31) mEq/l Anion Gap 10.0 (3-11) POC Anion Gap (16-25) mmol/L POC BUN (7-18) mg/dl BUN 121 H (7-18) mg/dl Creatinine 2.91 H (0.6-1.2) mg/dl POC Creatinine (0.6-1.3) mg/dl Est Cr Clr Drug Dosing 15.3 ml/min Est GFR ( Amer) 17.5 Est GFR (Non-Af Amer) 15.1 BUN/Creatinine Ratio 41.6 H (10-20) Glucose 104 H (70-99) mg/dl POC Glucose (other) (70-99) mg/dl Calcium 8.2 L (8.5-10.1) mg/dl POC Ioniz Calcium Fadi (1.12-1.32) mmol/l Total Bilirubin 0.4 (0.1-1) mg/dl AST 30 (15-37) U/L ALT 24 (12-78) U/L Alkaline Phosphatase 124 H (45-117) U/L Total Creatine Kinase (26-192) U/L Troponin I 0.025 (0-0.045) ng/ml Total Protein 7.4 (6.4-8.2) gm/dl Albumin 2.7 L (3.4-5.0) gm/dl Globulin 4.7 H (2.5-4.0) gm/dl Albumin/Globulin Ratio 0.6 L (0.9-2) Blood Type Antibody Screen Antibody Identification Crossmatch Medications Administered Current Inpatient Medications Hydromorphone HCl (Dilaudid) 0.5 mg IV Q15M PRN PRN Reason: Pain Stop: 03/26/18 11:04 Last Admin: 03/12/18 11:21 Dose: 0.5 mg Code Status & VTE Plan Code Status Has advanced derective on file VTE Prophylaxis Plan VTE Prophylaxis will be ordered: No Reason for no VTE drug order: Contraindicated (she is already on anti coagulation ) Supervising Physician Co-Signing Physician Notes I personally examined the patient and verified all bruce points of history and exam, discussed case, and agree with decision making with Dr Jose croft on steps - mechanical fall face/lip lac bled a lot R arm pain ongoing and severe vitals noted fatigued and uncomfortably appearing breathing unlabored. lip large scabbed area no active bleeding (+) surrounding bruising. R arm painful ROM. point tender/exquisite tender mid/distal arm posteriorly - also hurts with indirect movement of the area. forearm fairly tender but less so - mostly in proximal extensor compartment but without point tenderness. no crepitis. no open wounds. no exac of pain w foraminal compression Cspine no point tenderness low back - parapsinals w mild hypertonicity, gentle OMT done fall - mechanical facial lac/abrasion - healing, supportive care arm pain - check dedicated Xray humerous. if negative serial exams / PT/OT +/- ortho eval. if (+) obviously ortho eval. acute on chronic anemia - suspect acuity from blood loss from facial lac since she noted a large amount of blood. transfuse, follow ?dispo home vs needing rehab - await PT/OT. otherwise as above Resident Activity Tracking Resident Involvement: Resident Care Provided Care Provided: Adult [facility] Medicine _ (1) Fall Encounter type: initial encounter Qualified Code(s): W19.XXXA - Unspecified fall, initial encounter
[2018-03-12] MEDS ORDERED: MAGNESIUM HYDROXIDE SUSP 30 ML UDC PO PRN (16:56)
[2018-03-12] MEDS ORDERED: POLYETHYLENE (MIRALAX) 17 GM PACK PO PRN (16:56)
[2018-03-12] MEDS ORDERED: ACETAMINOPHEN 325 MG TAB PO PRN (16:56)
[2018-03-12] MEDS ORDERED: DICLOFENAC SOD 1% GEL 100 GM TUBE EXT PRN (17:11)
[2018-03-12] MEDS ORDERED: ALBUT/IPRATROP 3MG/0.5MG NEB 3 ML VIAL INH PRN (17:11)
[2018-03-12] MEDS ORDERED: LANTUS PER UNIT CHARGE SQ SCH (17:15)
[2018-03-12] MEDS ORDERED: SODIUM CHLORIDE 0.9% 250 ML IV PRN (17:17)
[2018-03-12] MEDS ORDERED: DEXTROSE 50% 50 ML SYRINGE IV PRN (17:22)
[2018-03-12] MEDS ORDERED: GLUCAGON FOR INJ 1 MG VIAL SQ PRN (17:22)
[2018-03-12] MEDS ORDERED: CARBOHYDRATES FOR HYPOGLYCEMIA PO PRN (17:22)
[2018-03-12] MEDS ORDERED: GLUCOSE 10 TABS/TUBE PO PRN (17:22)
[2018-03-12] MEDS ORDERED: GLUCOSE 40% GEL 15 GM TUBE PO PRN (17:22)
[2018-03-12] MEDS ORDERED: PHARMACY GLYCEMIC MGMT CONSULT PRN (19:43)
[2018-03-12] MEDS ORDERED: NON-FORMULARY MEDICATION (Glucosamine-Chondroitin [Osteo Bi-Flex] 1 TAB) PO SCH (21:00)
[2018-03-12] MEDS ORDERED: INSULIN GLARGINE SOLOSTAR 100 UNITS/ML 3 ML PEN SC STA (21:02)
[2018-03-12] MEDS: CHOLECALCIFEROL 1,000 UNITS TAB PO SCH (21:10)
[2018-03-12] MEDS: WARFARIN SOD 3 MG TAB PO SCH (21:11)
[2018-03-12] MEDS: POTASSIUM CHLORIDE 20 MEQ TABCR PO SCH (21:11)
[2018-03-12] MEDS: HYDROCORTISONE 1% CRM 30 GM TUBE EXT SCH (21:11)
[2018-03-12] MEDS: EZETIMIBE 10 MG TABLET PO SCH (21:11)
[2018-03-12] MEDS: INSULIN ASPART 100 UNITS/ML 3 ML PEN SC SCH (21:12)
[2018-03-12] MEDS: DIGOXIN 0.125 MG TAB PO SCH (21:14)
[2018-03-12] MEDS: MoRPHine SULFATE 2 MG/ML CARP IV PRN (23:31)
[2018-03-13] MEDS ORDERED: BUMETANIDE 1 MG TAB PO ONE (00:25)
[2018-03-13] MEDS: LEVOTHYROXINE SODIUM 175 MCG TABLET PO SCH (06:21)
--- NOTE | 2018-03-13 07:03 | Family Medicine Progress Note ---
Date of Service March 13, 2018 Assessment & Plan (1) Fall: Pt is a 77 year old female with a pmhx significant for chronic anemia requiring transfusions (baseline hgb 7-8), cirrhosis, lumbar stress fracture x2 , hypothyroidism, CHF, CKD stage 4, pulm HTN, mechanical heart valve, stroke x3 , COPD, Pleural effusion, and recurrent pleural effusions with pleur-x catheter in place. She presented to the [facility] ED on 03/12 2 days s/p fall for evaluation of arm pain R>L. #Fall (active) Occured 2 days ago, no loc, pt does endorse recent hx of decreasing strength. Numerous bruises and significant laceration to her face. also endorsing b/l arm pain. CT in the ED showed volume overload 2/2 cirrhosis, 3mm non obstructing renal calculus, persistant right pleural effusion, chronic compression fx of L3. Head Ct was negative, Face ct age indeterminate nasal fx. -On inpt -Analgesia tylenol for pain <5 for pain >5 morphine 2mg, Voltaren prn -Monitor for si/sx of compartment syndrome -PT/OT evaluation #Right Arm Pain (active) Pt is barely able to raise arm against gravity s/p fall. Suspect pt likely injured a nerve and nerve is now stunned. Pt had negative CT in the ED, would consider MRI but pt is unable 2/2 to mechanical valve and pace maker. On exam it appeared as if pt musculature was functioning correctly. Elbow fracture negative -Analgesia as above -Ortho Cx to evaluate for compartment syndrome/tendon rupture -PT/OT #Anemia (active) Pt is chronically anemic with baseline hgb 7-8, source of anemia is unknown thought per pt thought to be a small bleeding vessel. She is currently s/p 2 units of pRBC last Friday. On admission HGB was 6.0, pt denies si/sx of anemia however this could have contributed to her fall -S/p Transfusion 2 units pRBC -Daily CBC, transfuse for HGB<6.5 -f/u iron studies -continue chronic regimen B12, B6, #CHF (active) Patient does not seem to be in acute decompensated CHF. She states her weight is stable. Concern for LE edema -Continue Home Bumex 4mg po bid and metalazone 5 mg po 3xwk -Continue Metoprolol 100mg po daily -Continue Hydralazine 25mg po BID -Continue Digoxin 125 mcg daily #Hypokalemia Chronic, treated in the past 3.3 on admission 3.7 now -20 meq KCL TID -Trend Daily CMP #DMII (active) Last HBA1c 03/13 5.1 -Lantus 20 u BID -SSI -BSG checks AC/HS -sugars reasonable continue to monitor #Stress Fracture Ct shows stress fracture still present at L3, L2 resolving, and chronic degenerative changes -analgesia, adequate calcium intake -pt/ot ealuation #History of mitral valve replacement with mechanical valve (active) Stable. therapeutic INR at 2.6 today -continue home Coumadin -Trend INR daily -Goal 2.5-3.5 in patient with mechanical valve #COPD Stable sating 97% on room air has pleurex for chronic effusion - Duonebs qid PRN - Begin Spirva #Pleural effusion, right (active) Ct showed congestive changes in her lungs and PleurX catheter in place -Monitor output -Wound/ostomy nursing consult for management #Cirrhosis (active) Patient with mild ascites on exam, clinically volume overloaded, ct scan showed anasarca, ascites. Liver function test WNL -Continue home diuretic regimen as above -Monitor K -Low Na diet as tolerated #AFIB (active) Rate controlled on AC #CAD (active) -Continue Zetia -continue gemfibrozil #CKD (active) Baseline CR is 2.5, 2.9 2/2 to poor perfusion from anemia on admission has followed with Dr. Dr. Wong in the past -Trend daily BMP -Continue Diuretic regimen as tolerated #HTN (active) Stable -continue home regimen hydralazine, metoprolol #Hypothyroidism (active) Last tsh 2.12 -continue 175mcg levothyroxine qam #GERD (active) -continue ranitidine 150mg BID -Continue Pantoprazole 40mg #Overactive Bladder (active) -continue Trospium #Seasonal Allergies (active) -continue Vickie and montelukast #Insomnia(active) Diazapam #Back Pain Hydrocortisone, lidocaine patch, Voltaran FENA: DMII and Heart Healthy Diet DVTPPX: On Warfarin Code: DNR DISPO: Home cx'd care coodinator Supervising Physician Co-Signing Physician Notes I personally examined the patient and verified all brcue points of history and exam, discussed case, and agree with decision making with Dr Garcia Arm still hurts a lot. Did very poorly with PT, but she fairly adamantly is refusing to consider going anywhere but home. Vitals noted, in general she is very fatigued appearing sitting upright in chair no acute distress. Her lip laceration/abrasion appears to be healing well and her facial bruising is healing. Right arm is still exquisitely tender in her distal trapezius/mid humerus area. There is no crepitus no step-off and no balled up area that feels like a tear. She is less tender in the extensor compartment of her forearm. fall - mechanical, with her weakness we will try to have her reconsider ongoing PT and OT. facial lac/abrasion - healing, supportive care arm pain -x-rays negative, I suspect this is all going to be sprain and strain type stuff. But she is so exquisitely tender, as well as by PT recommendations , that we will have orthopedics evaluate her. acute on chronic anemia - suspect acuity from blood loss from facial lac since she noted a large amount of blood. transfused, follow periodically. ?dispo home vs needing rehab -it appears she would do better with rehab, but right now she only wants to go home. We will continue to follow. Continue PT and OT for now. otherwise as above Subjective Pt doing well this morning reports feeling better s/p transfusion of 2 units prbc. Pt still complaining of significant arm pain and has significant weakness at baseline. She was seen by PT who recommends acute rehab although the patient is resistant to it. Pt reports tolerating diet, eating, voiding, and stooling appropriately. No si/sx of acute syx Physical Exam 2 Vital Signs (Past 24 Hours): Last Vital Signs Temp 36.9 C 03/13/18 04:10 Pulse 84 03/13/18 04:10 Resp 18 03/13/18 04:10 BP 117/48 L 03/13/18 04:10 Pulse Ox 94 03/13/18 04:10 Constitutional: + ill appearing, + thin, + frail appearing and cooperative Eyes: normal visual murray by confrontation Neck: trachea midline, no thyromegaly Thyroid: normal thyroid Respiratory: normal respiratory effort, lungs clear to auscultation Auscultation: lungs clear to auscultation bilaterally Cardiovascular: Rate/Rhythm: regular rate and regular rhythm Vessels: no JVD Extremities: no calf tenderness Gastrointestinal (Abdomen): normal bowel sounds, soft, nontender, no hepatosplenomegaly Musculoskeletal: Right arm : painful 2/5 strength Left arm: painful 4/5 strength Skin: + dry skin and + ecchymosis Psychiatric: A+Ox3, euthymic affect Orientation: cooperative Apperance: appropriately dressed and appropriately groomed Eye Contact: good eye contact Speech: normal rate/rhythm/volume of speech (Speech is slow ) Thought Process: linear/logical thought process and + tangential thought process Estimated Intelligence: average estimated intelligence Insight: + fair insight Judgement: + fair judgement Resident Activity Tracking Resident Involvement: Resident Care Provided Care Provided: Adult [facility] Medicine _ (1) Fall Encounter type: initial encounter Qualified Code(s): W19.XXXA - Unspecified fall, initial encounter
[2018-03-13 07:20] LABS: Basophils # (auto) 0.02 K/uL (0-0.2); Basophils % (auto) 0.3 %; Eosinophils # (auto) 0.21 K/uL (0-0.5); Eosinophils % (auto) 3.6 %; Hematocrit (blood only) 23.7 % (37-47); Hemoglobin 7.4 g/dL (12.0-16.0); Immature Granulocytes # (auto) 0.01 K/uL (0.00-0.02); Immature Granulocytes % (auto) 0.2 %; Lymphocytes # (auto) 0.41 K/uL (1.2-3.4); Lymphocytes % (auto) 7.1 %; Mean Corpuscular Hgb Conc 31.2 g/dL (32-36); Mean Corpuscular Volume 90.1 fL (80-100); Mean Platelet Volume 9.8 fL (7.4-10.4); Monocytes # (auto) 0.93 K/uL (0.11-0.59); Neutrophils # (auto) 4.22 K/uL (1.4-6.5); Neutrophils % (auto) 72.8 %; Platelet Count 202 K/uL (130-400); RDW Coefficient of Variation 16.6 % (11.5-14.5); RDW Standard Deviation 54.2 fL (36.4-46.3); Red Blood Count 2.63 M/uL (4.2-5.4)
[2018-03-13 07:36] LABS: INR 2.2 (0.9-1.1); Prothrombin Time 20.9 Seconds (9.0-12.0)
[2018-03-13 07:52] LABS: Estimated Average Glucose 100 mg/dl; Hypochromasia Present; Polychromasia 1+
[2018-03-13 07:58] LABS: Albumin Level 2.6 gm/dl (3.4-5.0); BUN Creatinine Ratio 41.7 (10-20); Calcium 8.2 mg/dl (8.5-10.1); Creatinine Clr Calc Pharmacy 15.5 ml/min; Est GFR (African American) 17.3; Est GFR (Non-African American) 14.9; Potassium 3.7 mmol/L (3.5-5.1)
[2018-03-13 08:01] LABS: Albumin Globulin Ratio 0.6 (0.9-2); Bilirubin,Total 0.5 mg/dl (0.1-1); Ferritin 15.3 ng/ml (8-388); Globulin 4.3 gm/dl (2.5-4.0); Total Protein 6.9 gm/dl (6.4-8.2)
[2018-03-13] MEDS: FEXOFENADINE HCL 180 MG TAB PO SCH (08:02)
[2018-03-13] MEDS: SACCHAROMYCES BOULARDII 250 MG CAP PO SCH (08:02)
[2018-03-13] MEDS: BUMETANIDE 1 MG TAB PO SCH ×2 (08:02→16:29)
[2018-03-13] MEDS: LIDOCAINE 5% 1 PATCH TD SCH (08:03)
[2018-03-13] MEDS: GEMFIBROZIL 600 MG TAB PO SCH ×2 (08:03→17:46)
[2018-03-13] MEDS: HYDROCORTISONE 1% CRM 30 GM TUBE EXT SCH ×4 (08:03→21:07)
[2018-03-13] MEDS: PANTOprazole 40 MG TAB PO SCH (08:04)
[2018-03-13] MEDS: METOPROLOL SUCC 50MG EXT REL TAB PO SCH (08:04)
[2018-03-13] MEDS: TIOTROPIUM BROMIDE 5 PUFF/90 MCG INH INH SCH (08:05)
[2018-03-13] MEDS: MONTELUKAST SODIUM 10 MG TABLET PO SCH (08:05)
[2018-03-13] MEDS: PYRIDOXINE HCL 50 MG TAB PO SCH (08:05)
[2018-03-13] MEDS: CYANOCOBALAMIN 500 MCG TABLET (VITAMIN B-12) PO SCH (08:05)
[2018-03-13] MEDS: CHOLECALCIFEROL 1,000 UNITS TAB PO SCH ×3 (08:05→21:10)
[2018-03-13] MEDS: INSULIN ASPART 100 UNITS/ML 3 ML PEN SC SCH ×4 (08:06→21:04)
[2018-03-13] MEDS: POTASSIUM CHLORIDE 20 MEQ TABCR PO SCH ×3 (08:06→21:06)
[2018-03-13] MEDS ORDERED: metOLazone 5 MG TABLET PO PRN (08:30)
--- NOTE | 2018-03-13 09:23 | XRay Report ---
XR humerus RT 2V CLINICAL HISTORY: tenderness R mid humerus COMPARISON: None. DISCUSSION: 5 views are provided for interpretation. No fractures are visualized. There are no erosiv e or destructive changes. Note is made of a right-sided pleural catheter. There is a small right pleu ral effusion. IMPRESSION: 1. No fractures identified 2. No destructive lesions are evident Electronically signed by: Nikita Culp M.D. 03/13/2018 9:21 AM
--- NOTE | 2018-03-13 10:02 | XRay Report ---
XR elbow LT min 3V routine CLINICAL HISTORY: Left elbow pain COMPARISON: None. DISCUSSION: The fat pads are not displaced. No fractures or dislocations are visualized. No destructi ve lesions are evident. IMPRESSION: No fractures identified. No destructive lesions are visualized on conventional radiograph ic imaging. Electronically signed by: Nikita Culp M.D. 03/13/2018 10:00 AM
[2018-03-13] MEDS: INSULIN GLARGINE SOLOSTAR 100 UNITS/ML 3 ML PEN SC SCH ×2 (10:41→21:04)
--- NOTE | 2018-03-13 13:07 | Pharmacy Report ---
Glycemic Control Consultation - Date of Service March 13, 2018 - Scope Scope: Glycemic Pharmacist consulted by Dr Garcia on 03/13/18 for glycemic control and to write orders per [facility] inpatient glycemic control protocol - Objective Weight: 73.6 kg Accuchecks BSG (last 24hrs): 03/12/18 03/13/18 03/13/18 20:43 06:33 07:40 Glucose 98 POC Glucose 174 H 143 H 03/13/18 11:34 Glucose POC Glucose 174 H Laboratory Data (last 24hrs): 03/13/18 06:33 Potassium 3.7 Carbon Dioxide 24 Anion Gap 11.0 Creatinine 2.95 H Est Cr Clr Drug Dosing 15.5 HbA1c: Hemoglobin A1c 5.1 % (4.5-5.6) 03/13/18 06:33 - Recent Pertinent Medications Outpatient Anti-diabetic Regimen: * Lantus 20-60u BID & Novolog SSI * A1c = 5.1 % 03/13/18 she is chronically anemic. doubtful that this is a helpful metric - Assessment & Plan Assessment & Plan: ASSESSMENT: * Ms. Morales is a 77yo F known to the pharmacy glycemic service from previous admissions. PMHx consistent with anemia, cirrhosis, CHF, CKD, DM-II, COPD, mitral valve replacement, among others. It's difficult to determine her glycemic status based on her A1C due to her chronic anemia. * Will use data from previous admissions to initiate insulin therapy and adjust as needed. PLAN FOR INPATIENT GLYCEMIC CONTROL: * Basal insulin * Lantus scale SQ BID * BSGs <180mg/dL give 8 units * BSGs >/=180mg/dL give 14 units * Bolus insulin * NovoLog per scale ACHS or Q6hrs while NPO * Goal Range: Low 110 mg/dL - High 140 mg/dL * Correction Factor: 30 mg/dL/unit * Nutritional / Prandial insulin per carb ratio of 1 unit per 10 grams CHO consumed * Please note that the plan above was derived based on current level of insulin resistance and hospital stress. These recommendations are appropriate for inpatient admission only. Plan of care upon discharge will need to be reassessed to avoid potential outpatient hypo/hyperglycemia. Thank you.
[2018-03-13] MEDS: DIGOXIN 0.125 MG TAB PO SCH (15:44)
[2018-03-13] MEDS ORDERED: WARFARIN SOD 4 MG TAB PO SCH (16:00)
[2018-03-13] MEDS: MoRPHine SULFATE 2 MG/ML CARP IV PRN (17:49)
--- NOTE | 2018-03-13 18:33 | Consultation Report ---
DATE OF CONSULTATION: 03/13/2018 CHIEF COMPLAINT: Right upper extremity weakness. HISTORY OF PRESENT ILLNESS: Crystal is a patient known by me from the office for some chronic lumbar spine problems I am pretty sure, but I cannot swear to it. I know I have met her before and taken care of her very difficult problems. She had a fall injury and left with some significant weakness to the right upper extremity. At the time of my consultation approximately 5:20 in the evening on Friday it seemingly was resolving. She has abduction strength, external and internal rotation, slightly slower in motion then on the opposite side, but is improving. This is a common neuropraxia injury which bruise the associated nerve roots either peripherally or centrally and they are in the process of improving. PAST MEDICAL HISTORY: Anemia, heart failure, diabetes, heart disease, COPD, cirrhosis, Afib. PAST SURGICAL HISTORY: All illustrated as well. We reviewed her medications. OBJECTIVE: GENERAL: She is alert, oriented today. She is somewhat slow to her speech, but makes perfect sense. HEENT: Essentially normal. She has some abrasions and contusions and lacerations, but intact. EXTREMITIES: Her right upper extremity shows some swelling and slightly decreased range of motion but intact neurological status. LABORATORY DATA: Images reviewed of cervical spine, multiple x-rays and there does appear to be any acute process. IMPRESSION: Resolving neuropraxia right upper extremity. PLAN: Observation only. Supportive care. No true need for followup in the office. Call me if there are problems.
[2018-03-13] MEDS: EZETIMIBE 10 MG TABLET PO SCH (21:08)
[2018-03-13] MEDS: diazePAM 5 MG TABLET PO PRN (22:12)
[2018-03-14] MEDS: LEVOTHYROXINE SODIUM 175 MCG TABLET PO SCH (05:16)
[2018-03-14 08:09] LABS: Basophils # (auto) 0.01 K/uL (0-0.2); Basophils % (auto) 0.2 %; Eosinophils # (auto) 0.27 K/uL (0-0.5); Eosinophils % (auto) 4.7 %; Hematocrit (blood only) 25.9 % (37-47); Hemoglobin 8.1 g/dL (12.0-16.0); Immature Granulocytes # (auto) 0.01 K/uL (0.00-0.02); Immature Granulocytes % (auto) 0.2 %; Lymphocytes # (auto) 0.39 K/uL (1.2-3.4); Lymphocytes % (auto) 6.8 %; Mean Corpuscular Hgb Conc 31.3 g/dL (32-36); Mean Platelet Volume 9.5 fL (7.4-10.4); Monocytes # (auto) 0.85 K/uL (0.11-0.59); Monocytes % (auto) 14.8 %; Neutrophils # (auto) 4.21 K/uL (1.4-6.5); Neutrophils % (auto) 73.3 %; Platelet Count 211 K/uL (130-400); RDW Coefficient of Variation 16.4 % (11.5-14.5); RDW Standard Deviation 53.9 fL (36.4-46.3); Red Blood Count 2.91 M/uL (4.2-5.4); White Blood Count 5.74 K/uL (4.8-10.8)
[2018-03-14 08:18] LABS: INR 2.9 (0.9-1.1); Prothrombin Time 27.5 Seconds (9.0-12.0)
[2018-03-14 08:32] LABS: Hypochromasia Present; Polychromasia 1+
[2018-03-14 08:44] LABS: Albumin Level 2.7 gm/dl (3.4-5.0); BUN Creatinine Ratio 40.2 (10-20); Calcium 8.4 mg/dl (8.5-10.1); Creatinine Clr Calc Pharmacy 15.7 ml/min; Est GFR (African American) 17.6; Est GFR (Non-African American) 15.2; Potassium 3.8 mmol/L (3.5-5.1)
[2018-03-14] MEDS: FEXOFENADINE HCL 180 MG TAB PO SCH (08:44)
[2018-03-14] MEDS: CHOLECALCIFEROL 1,000 UNITS TAB PO SCH ×3 (08:44→21:08)
[2018-03-14] MEDS: GEMFIBROZIL 600 MG TAB PO SCH ×2 (08:45→17:34)
[2018-03-14] MEDS: BUMETANIDE 1 MG TAB PO SCH ×2 (08:45→16:24)
[2018-03-14 08:46] LABS: Albumin Globulin Ratio 0.6 (0.9-2); Bilirubin,Total 0.4 mg/dl (0.1-1); Globulin 4.5 gm/dl (2.5-4.0); Total Protein 7.2 gm/dl (6.4-8.2)
[2018-03-14] MEDS: INSULIN GLARGINE SOLOSTAR 100 UNITS/ML 3 ML PEN SC SCH ×2 (08:46→21:02)
[2018-03-14] MEDS: INSULIN ASPART 100 UNITS/ML 3 ML PEN SC SCH ×4 (08:48→21:04)
[2018-03-14] MEDS: PANTOprazole 40 MG TAB PO SCH (08:50)
[2018-03-14] MEDS: METOPROLOL SUCC 50MG EXT REL TAB PO SCH (08:50)
[2018-03-14] MEDS: MONTELUKAST SODIUM 10 MG TABLET PO SCH (08:51)
[2018-03-14] MEDS: PYRIDOXINE HCL 50 MG TAB PO SCH (08:51)
[2018-03-14] MEDS: CYANOCOBALAMIN 500 MCG TABLET (VITAMIN B-12) PO SCH (08:51)
[2018-03-14] MEDS: POTASSIUM CHLORIDE 20 MEQ TABCR PO SCH ×3 (08:52→21:03)
[2018-03-14] MEDS: SACCHAROMYCES BOULARDII 250 MG CAP PO SCH (08:52)
[2018-03-14] MEDS: HYDROCORTISONE 1% CRM 30 GM TUBE EXT SCH ×4 (08:53→21:05)
[2018-03-14] MEDS: TIOTROPIUM BROMIDE 5 PUFF/90 MCG INH INH SCH (08:53)
[2018-03-14] MEDS: LIDOCAINE 5% 1 PATCH TD SCH (08:55)
--- NOTE | 2018-03-14 11:19 | Family Medicine Progress Note ---
Date of Service March 14, 2018 Assessment & Plan (1) Fall: Pt is a 77 year old female with a pmhx significant for chronic anemia requiring transfusions (baseline hgb 7-8), cirrhosis, lumbar stress fracture x2 , hypothyroidism, CHF, CKD stage 4, pulm HTN, mechanical heart valve, stroke x3 , COPD, Pleural effusion, and recurrent pleural effusions with pleur-x catheter in place. She presented to the [facility] ED on 03/12 2 days s/p fall for evaluation of arm pain R>L. #Fall (active) Occured 2 days ago, no loc, pt does endorse recent hx of decreasing strength. Numerous bruises and significant laceration to her face. also endorsing b/l arm pain. CT in the ED showed volume overload 2/2 cirrhosis, 3mm non obstructing renal calculus, persistant right pleural effusion, chronic compression fx of L3. Head Ct was negative, Face ct age indeterminate nasal fx. -On inpt -Analgesia tylenol for pain <5 for pain >5 morphine 2mg, Voltaren prn -Monitor for si/sx of compartment syndrome -PT/OT evaluation #Right Arm Pain (active) Pt is barely able to raise arm against gravity s/p fall upon admission, now able to move arm. Suspect pt likely injured a nerve and nerve is now stunned. Pt had negative CT in the ED, would consider MRI but pt is unable 2/2 to mechanical valve and pace maker. On exam it appeared as if pt musculature was functioning correctly. Elbow fracture negative -Analgesia as above -Ortho Cx and had impression of Resolving neuropraxia right upper extremity, with plan for observation only, supportive care and no need for office follow- up. -PT/OT #Anemia (active) Pt is chronically anemic with baseline hgb 7-8, source of anemia is unknown thought per pt thought to be a small bleeding vessel. She is currently s/p 2 units of pRBC last Friday. On admission HGB was 6.0, pt denies si/sx of anemia however this could have contributed to her fall -S/p Transfusion 2 units pRBC -Daily CBC, transfuse for HGB<6.5 -f/u iron studies -continue chronic regimen B12, B6 - 8.1 today 03/14 #CHF (active) Patient does not seem to be in acute decompensated CHF. She states her weight is stable. Concern for LE edema -Continue Home Bumex 4mg po bid and metalazone 5 mg po 3xwk -Continue Metoprolol 100mg po daily -Continue Hydralazine 25mg po BID -Continue Digoxin 125 mcg daily #Hypokalemia (resolved) Chronic, treated in the past, 3.3 on admission 3.8 now -20 meq KCL TID -Trend Daily CMP #DMII (active) Last HBA1c 03/13 5.1 -Lantus 8units BID -SSI -BSG checks AC/HS -sugars reasonable continue to monitor #Stress Fracture Ct shows stress fracture still present at L3, L2 resolving, and chronic degenerative changes -analgesia, adequate calcium intake -pt/ot evaluation -states improved with Lidocaine patch and Voltaren Gel #History of mitral valve replacement with mechanical valve (active) Stable. therapeutic INR at 2.9 today -continue home Coumadin -Trend INR daily -Goal 2.5-3.5 in patient with mechanical valve #COPD Stable sating 97% on room air has pleurex for chronic effusion - Duonebs qid PRN - Begin Spirva #Pleural effusion, right (active) Ct showed congestive changes in her lungs and PleurX catheter in place -Monitor output -Wound/ostomy nursing consult for management #Cirrhosis (active) Patient with mild ascites on exam, clinically volume overloaded, ct scan showed anasarca, ascites. Liver function test WNL -Continue home diuretic regimen as above -Monitor K -Low Na diet as tolerated #AFIB (active) Rate controlled on AC #CAD (active) -Continue Zetia -continue gemfibrozil #CKD (active) Baseline CR is 2.5, 2.9 2/2 to poor perfusion from anemia on admission has followed with Dr. Dr. Wong in the past -Trend daily BMP -Continue Diuretic regimen as tolerated -today 2.90 #HTN (active) Stable -continue home regimen hydralazine, metoprolol #Hypothyroidism (active) Last tsh 2.12 -continue 175mcg levothyroxine qam #GERD (active) -continue ranitidine 150mg BID -Continue Pantoprazole 40mg #Overactive Bladder (active) -continue Trospium #Seasonal Allergies (active) -continue Vickie and montelukast #Insomnia(active) Diazapam #Back Pain Hydrocortisone, lidocaine patch, Voltaran FENA: DMII and Heart Healthy Diet DVTPPX: On Warfarin Code: DNR DISPO: Home cx'd care coodinator Supervising Physician Co-Signing Physician Notes I personally examined the patient and verified all bruce points of history and exam, discussed case, and agree with decision making with Dr Ward Arm feeling better, she is moving it more. She is able to get up and walk around more with her walker, she notes that she is not moving too badly, and would like to walk more if possible. She still is adamantly declining going to any facility, and is now upset because apparently her was placed at [facility] yesterday, and she would like to take him home. Vitals noted, she is actually much brighter, still appears a bit fatigued but much more alert and interactive and conversational the last 2 days. She is able to move her right arm with a nearly full range of motion with minimal to no discomfort, she shows no focal neurologic deficits, and with her walker is actually able to have a slow steady gait with no assistance. She got up out of the chair used her walker navigated a very narrow pathway between the bed and the wall, turned a narrow 90 degree right turn, walked about 10 feet to the door , turned 180 degrees and walked back to the same pathway to her chair, turned around and got herself in her chair all by herself with no assistance. At no time did she look like a significant risk for fall, she was very slow and somewhat shuffling, but steady. She related to me that she does not feel like she is very far from her normal ability to walk. fall - mechanical, while I would still feel safer with her going somewhere to do rehab, she is adamantly opposed to this. With how she did today, it does not appear recklessly dangerous for her to consider going home, although I did make it clear that if she does go home she should use her walker all the time. I noted that I would still prefer her to consider rehab but if she is not, we can start to look towards home in the next day or so with progress. I discussed with the nursing staff to try to help her be in the hallways walking more throughout the day. facial lac/abrasion - healing well, supportive care arm pain -appreciate orthopedics inputneurapraxia, and this appears to be resolving fairly quickly. acute on chronic anemia - suspect acuity from blood loss from facial lac since she noted a large amount of blood. transfused, follow periodically. This is been stable ?dispo home vs needing rehab -it appears she would do better with rehab, but right now she only wants to go home. See above otherwise. Continue PT and OT for now. otherwise as above Subjective Crystal states she is able to move her right arm with improved ROM and strength. She does not want to go to SNF for rehab. She states she had terrible experiences in the past. She endorses leg edema. No complaints of shortness of breath or chest pain. She states she would like to be able to get more activity with walking the [place] with her walker. She states she would be willing to use walker at home to ensure she doesn't fall upon discharge. She also notes being upset that her son who is PILAR, placed spouse with dementia at [facility] yesterday without her consultation. She states she will get her spouse back home as soon as she could and she states she has home health aides that assist with ADLs. She notes that spouse does bath himself in shower and toilets himself, but she needs to call neighbors to help him get off of floor if he falls. She states her chronic back pain from compression fractures of lumbar was improved with Lidocaine patch and Voltaren Gel. Physical Exam 2 Vital Signs (Past 24 Hours): Last Vital Signs Temp 36.6 C 03/14/18 07:48 Pulse 82 03/14/18 07:48 Resp 18 03/14/18 07:48 BP 117/51 L 03/14/18 07:48 Pulse Ox 97 03/14/18 07:48 Constitutional: + thin and cooperative Eyes: + anicteric sclerae and EOM intact bilaterally Neck: normal visual inspection and trachea midline Respiratory: normal respiratory effort, lungs clear to auscultation Cardiovascular: Rate/Rhythm: regular rate and regular rhythm Gastrointestinal (Abdomen): Inspection/Auscultation: normal bowel sounds Percussion/Palpation: abdomen nontender Musculoskeletal: Head/Neck/Chest: normocephalic Gait: normal gait (with walker, able to ambulate around exam room without difficulty) Skin: + dry skin and + ecchymosis hematoma to bottom lip center with ecchymosis perioral to inferior left side Neurologic: moves all extremities and awake Psychiatric: A+Ox3, euthymic affect Orientation: cooperative Eye Contact : good eye contact Results & Data Laboratory Results Laboratory Results - last 24 hr 03/12/18 03/13/18 03/13/18 11:12 11:34 16:40 WBC RBC Hgb Hct MCV MCH MCHC RDW Std Deviation RDW Coeff of Marco Plt Count MPV Immature Gran % (Auto) Neut % (Auto) Lymph % (Auto) [place] % (Auto) Eos % (Auto) Baso % (Auto) Immature Gran # (Auto) Neut # (Auto) Lymph # (Auto) [place] # (Auto) Eos # (Auto) Baso # (Auto) Polychromasia Hypochromasia PT INR Sodium Potassium Chloride Carbon Dioxide Anion Gap BUN Creatinine Est Cr Clr Drug Dosing Est GFR ( Amer) Est GFR (Non-Af Amer) BUN/Creatinine Ratio Glucose POC Glucose 174 H 178 H Calcium Total Bilirubin AST ALT Alkaline Phosphatase Total Protein Albumin Globulin Albumin/Globulin Ratio Stool Occult Bld Scrn Blood Type A Positive Antibody Screen POSITIVE A Antibody Identification Anti-c Crossmatch See Detail 03/13/18 03/14/18 03/14/18 20:40 07:41 07:48 WBC 5.74 RBC 2.91 L Hgb 8.1 L Hct 25.9 L MCV 89.0 MCH 27.8 MCHC 31.3 L RDW Std Deviation 53.9 H RDW Coeff of Marco 16.4 H Plt Count 211 MPV 9.5 Immature Gran % (Auto) 0.2 Neut % (Auto) 73.3 Lymph % (Auto) 6.8 [place] % (Auto) 14.8 Eos % (Auto) 4.7 Baso % (Auto) 0.2 Immature Gran # (Auto) 0.01 Neut # (Auto) 4.21 Lymph # (Auto) 0.39 L [place] # (Auto) 0.85 H Eos # (Auto) 0.27 Baso # (Auto) 0.01 Polychromasia 1+ Hypochromasia Present PT INR Sodium Potassium Chloride Carbon Dioxide Anion Gap BUN Creatinine Est Cr Clr Drug Dosing Est GFR ( Amer) Est GFR (Non-Af Amer) BUN/Creatinine Ratio Glucose POC Glucose 167 H 122 H Calcium Total Bilirubin AST ALT Alkaline Phosphatase Total Protein Albumin Globulin Albumin/Globulin Ratio Stool Occult Bld Scrn Blood Type Antibody Screen Antibody Identification Crossmatch 03/14/18 03/14/18 03/14/18 07:48 07:48 10:30 WBC RBC Hgb Hct MCV MCH MCHC RDW Std Deviation RDW Coeff of Marco Plt Count MPV Immature Gran % (Auto) Neut % (Auto) Lymph % (Auto) [place] % (Auto) Eos % (Auto) Baso % (Auto) Immature Gran # (Auto) Neut # (Auto) Lymph # (Auto) [place] # (Auto) Eos # (Auto) Baso # (Auto) Polychromasia Hypochromasia PT 27.5 H INR 2.9 H Sodium 134 L Potassium 3.8 Chloride 98 Carbon Dioxide 25 Anion Gap 11.0 BUN 117 H Creatinine 2.90 H Est Cr Clr Drug Dosing 15.7 Est GFR ( Amer) 17.6 Est GFR (Non-Af Amer) 15.2 BUN/Creatinine Ratio 40.2 H Glucose 103 H POC Glucose Calcium 8.4 L Total Bilirubin 0.4 AST 35 ALT 26 Alkaline Phosphatase 126 H Total Protein 7.2 Albumin 2.7 L Globulin 4.5 H Albumin/Globulin Ratio 0.6 L Stool Occult Bld Scrn Positive H Blood Type Antibody Screen Antibody Identification Crossmatch Medications Administered Acetaminophen (Tylenol) 650 mg PO Q4H PRN PRN Reason: pain/fever Stop: 04/11/18 16:55 Last Admin: 03/13/18 10:16 Dose: 650 mg Bumetanide (Bumex) 4 mg PO BID17 [facility] Stop: 04/12/18 08:59 Last Admin: 03/14/18 08:45 Dose: 4 mg Admin: 03/13/18 16:29 Dose: 4 mg Admin: 03/13/18 08:02 Dose: 4 mg Cyanocobalamin (Vitamin B-12) 1,000 mcg PO DAILY [facility] Stop: 04/12/18 08:59 Last Admin: 03/14/18 08:51 Dose: 1,000 mcg Admin: 03/13/18 08:05 Dose: 1,000 mcg Diazepam (Valium) 5 mg PO BID PRN PRN Reason: Anxiety Stop: 04/11/18 17:10 Last Admin: 03/13/18 22:12 Dose: 5 mg Digoxin (Lanoxin) 0.125 mg PO DAILY@1600 [facility] Stop: 04/11/18 19:59 Last Admin: 03/13/18 15:44 Dose: 0.125 mg Admin: 03/12/18 21:14 Dose: 0.125 mg Ezetimibe (Zetia) 10 mg PO HS [facility] Stop: 04/11/18 20:59 Last Admin: 03/13/18 21:08 Dose: 10 mg Admin: 03/12/18 21:11 Dose: 10 mg Fexofenadine HCl (Vickie) 180 mg PO DAILY [facility] Stop: 04/12/18 08:59 Last Admin: 03/14/18 08:44 Dose: 180 mg Admin: 03/13/18 08:02 Dose: 180 mg Gemfibrozil (Lopid) 600 mg PO BID17 [facility] Stop: 04/12/18 08:59 Last Admin: 03/14/18 08:45 Dose: 600 mg Admin: 03/13/18 17:46 Dose: 600 mg Admin: 03/13/18 08:03 Dose: 600 mg Hydralazine HCl (Apresoline) 25 mg PO BID [facility] Stop: 04/11/18 20:59 Last Admin: 03/14/18 08:50 Dose: 25 mg Admin: 03/13/18 21:07 Dose: 25 mg Admin: 03/13/18 08:02 Dose: 25 mg Admin: 03/12/18 21:11 Dose: 25 mg Hydrocortisone (Hydrocortisone 1%) 1 appln EXT QID [facility] Stop: 04/11/18 20:59 Last Admin: 03/14/18 08:53 Dose: 1 appln Admin: 03/13/18 21:07 Dose: 1 appln Admin: 03/13/18 17:45 Dose: 1 appln Admin: 03/13/18 12:42 Dose: 1 appln Admin: 03/13/18 08:03 Dose: 1 appln Admin: 03/12/18 21:11 Dose: 1 appln Insulin Aspart (Novolog Flexpen) 0 units SC [facility]; Protocol Stop: 04/11/18 20:59 Last Admin: 03/14/18 08:48 Dose: 5 units Admin: 03/13/18 21:04 Dose: 1 units Admin: 03/13/18 17:42 Dose: 7 units Admin: 03/13/18 12:39 Dose: 8 units Admin: 03/13/18 08:06 Dose: 7 units Admin: 03/12/18 21:12 Dose: 6 units Insulin Glargine (Lantus Solostar Pen) 0 units SC BID [facility]; Protocol Stop: 04/12/18 09:29 Last Admin: 03/14/18 08:46 Dose: 8 units Admin: 03/13/18 21:04 Dose: 8 units Admin: 03/13/18 10:41 Dose: 8 units [facility]othy[facility]ine [facility]) [facility] Stop: 04/12/18 06:29 Last Admin: 03/14/18 05:16 Dose: 175 mcg Admin: 03/13/18 06:21 Dose: 175 mcg Lidocaine (Lidoderm 5%) 1 patch TD QAM [facility] Stop: 04/12/18 08:59 Last Admin: 03/14/18 08:55 Dose: 1 patch Admin: 03/13/18 08:03 Dose: 1 patch Metoprolol Succinate (Toprol Xl) 100 mg PO DAILY [facility] Stop: 04/12/18 08:59 Last Admin: 03/14/18 08:50 Dose: 100 mg Admin: 03/13/18 08:04 Dose: 100 mg Miscellaneous (Order Awaiting Action) 1 ea N/A QS [facility] Stop: 04/12/18 00:00 Last Admin: 03/14/18 08:50 Dose: Not Given Admin: 03/13/18 23:46 Dose: Not Given Admin: 03/13/18 17:39 Dose: Not Given Admin: 03/13/18 08:09 Dose: Not Given Admin: 03/13/18 00:25 Dose: Not Given Miscellaneous (Remove Lidoderm Patch) 1 ea N/A DAILY@2100 [facility] Stop: 04/12/18 20:59 Last Admin: 03/13/18 21:08 Dose: 1 ea Montelukast Sodium (Singulair) 10 mg PO DAILY [facility] Stop: 04/12/18 08:59 Last Admin: 03/14/18 08:51 Dose: 10 mg Admin: 03/13/18 08:05 Dose: 10 mg Morphine Sulfate (Morphine Sulfate) 2 mg IV Q4H PRN PRN Reason: Pain Stop: 03/26/18 18:52 Last Admin: 03/13/18 17:49 Dose: 2 mg Admin: 03/12/18 23:31 Dose: 2 mg Pantoprazole Sodium (Protonix) 40 mg PO QAM [facility] Stop: 04/12/18 08:59 Last Admin: 03/14/18 08:50 Dose: 40 mg Admin: 03/13/18 08:04 Dose: 40 mg Potassium Chloride (Klor-Con M20) 20 meq PO TID [facility] Stop: 04/11/18 20:59 Last Admin: 03/14/18 08:52 Dose: 20 meq Admin: 03/13/18 21:06 Dose: 20 meq Admin: 03/13/18 13:50 Dose: Not Given Admin: 03/13/18 08:06 Dose: Not Given Admin: 03/12/18 21:11 Dose: 20 meq Pyridoxine HCl (Vitamin B-6) 100 mg PO DAILY [facility] Stop: 04/12/18 08:59 Last Admin: 03/14/18 08:51 Dose: 100 mg Admin: 03/13/18 08:05 Dose: 100 mg Ranitidine HCl (Zantac) 150 mg PO BID [facility] Stop: 04/11/18 20:59 Last Admin: 03/14/18 08:50 Dose: 150 mg Admin: 03/13/18 21:10 Dose: 150 mg Admin: 03/13/18 08:05 Dose: 150 mg Admin: 03/12/18 21:11 Dose: 150 mg Saccharomyces Boulardii (Florastor) 250 mg PO DAILY [facility] Stop: 04/12/18 08:59 Last Admin: 03/14/18 08:52 Dose: 250 mg Admin: 03/13/18 08:02 Dose: 250 mg Tiotropium [place] (Spiriva) 1 puffs INH QAM [facility] Stop: 04/12/18 08:59 Last Admin: 03/14/18 08:53 Dose: 1 puffs Admin: 03/13/18 08:05 Dose: 1 puffs Vitamin D (Vitamin D3) 1,000 units PO TID [facility] Stop: 04/11/18 20:59 Last Admin: 03/14/18 08:44 Dose: 1,000 units Admin: 03/13/18 21:10 Dose: 1,000 units Admin: 03/13/18 13:50 Dose: 1,000 units Admin: 03/13/18 08:05 Dose: 1,000 units Admin: 03/12/18 21:10 Dose: 1,000 units Warfarin Sodium (Coumadin) 4 mg PO MoWeFr@1600 [facility] Stop: 04/12/18 15:59 Last Admin: 03/13/18 15:44 Dose: 4 mg Warfarin Sodium (Coumadin) 3 mg PO SuTuThSa@1600 [facility] Stop: 04/11/18 19:59 Last Admin: 03/12/18 21:11 Dose: 3 mg _ (1) Fall Encounter type: initial encounter Qualified Code(s): W19.XXXA - Unspecified fall, initial encounter
[2018-03-14] MEDS: DIGOXIN 0.125 MG TAB PO SCH (16:23)
[2018-03-14] MEDS: WARFARIN SOD 3 MG TAB PO SCH (16:23)
--- NOTE | 2018-03-14 18:10 | Emergency Department Note ---
Entered by Alka Kimble acting as a scribe for Angel Olvera MD History of Present Illness General Chief complaint: Fall Stated complaint: fall/ back & elbow pain Time Seen by Provider: 03/12/18 10:59 Source: patient History of Present Illness Onset (ago): day(s) 2 Location: face, back and upper extremity (right) Pain Consistency: + other (episode) Maximum Pain Intensity: 10 Quality: + other (fall) Associated symptoms: + denies other symptoms (abdominal pain) and + other ( right elbow pain, face pain, back pain); no chest pain The patient is a 77 year old female who presents to the Emergency Room with complaints of an episode of a fall occurring 2 days ago. The patient states that she was outside and fell on her concrete porch. She reports that she was unable to get herself back up and had to wait for her neighbors to come over and help her. She states that in the process she hurt her lower back, her right elbow, and her face. The patient notes that she is on Warfarin. The patient denies abdominal pain, chest pain, and taking anything for his pain. The patient notes that her hemoglobin has been continually low and she received 2 units 6 days ago. She notes that they do not know why she is losing Hemoglobin. Home Medications Home Medications Medication Instructions Recorded Confirmed Type Saccharomyces boulardii [Florastor] 250 mg PO DAILY 11/18/17 03/12/18 History cholecalciferol (vitamin D3) 1,000 unit PO TID 11/18/17 03/12/18 History [Vitamin D3] cyanocobalamin (vitamin B-12) 1,000 mcg PO DAILY 11/18/17 03/12/18 History [Vitamin B-12] diazepam 5 mg PO BID PRN 11/18/17 03/12/18 History diclofenac sodium [Voltaren] 1 applic TOPICAL QID PRN 11/18/17 03/12/18 History digoxin 125 mcg PO DAILY 11/18/17 03/12/18 History ezetimibe [Zetia] 10 mg PO HS 11/18/17 03/12/18 History fexofenadine [Vickie Allergy] 180 mg PO DAILY 11/18/17 03/12/18 History gemfibrozil 600 mg PO BID17 11/18/17 03/12/18 History insulin aspart U-100 [Novolog 0 unit SUBCUT DAILY 11/18/17 03/12/18 History U-100 Insulin aspart] levothyroxine [Synthroid] 175 mcg PO QAM 11/18/17 03/12/18 History metoprolol succinate [Toprol XL] 100 mg PO DAILY 11/18/17 03/12/18 History montelukast [Singulair] 10 mg PO DAILY 11/18/17 03/12/18 History pyridoxine (vitamin B6) 100 mg PO DAILY 11/18/17 03/12/18 History trospium 20 mg PO DAILY 11/18/17 03/12/18 History insulin glargine 20 - 60 units SUBCUT AMPM 11/24/17 03/12/18 History hydralazine 25 mg tablet 25 mg PO BID tab 12/03/17 03/12/18 History bumetanide 4 mg PO BID 12/23/17 03/12/18 History hydrocortisone 1 applic EXT QID #15 g 01/01/18 03/12/18 Rx lidocaine 1 patch TRANSDERMAL QAM #1 ea 01/01/18 03/12/18 Rx metolazone 5 mg PO 3XWK PRN #30 tab 01/01/18 03/12/18 Rx pantoprazole 40 mg PO QAM #30 tab 01/01/18 03/12/18 Rx potassium chloride 20 meq PO BID #60 tab 01/01/18 03/12/18 Rx ranitidine HCl 150 mg PO BID #60 tab 01/01/18 03/12/18 Rx ipratropium-albuterol 0.5 mg-3 3 ml INH QID PRN 02/16/18 03/12/18 History mg(2.5 mg base)/3 mL nebulization soln warfarin 4 mg tablet 4 mg PO 3XWK 02/25/18 03/12/18 History glucosamine-chondroitin [Osteo 1 tab PO TID 03/12/18 03/12/18 History Bi-Flex] warfarin 3 mg PO 4XWK 03/12/18 03/12/18 History Allergies Allergy/AdvReac Type Severity Reaction Status Date / Time Penicillins Allergy Severe anaphylaxis Verified 03/12/18 12:01 30yrs ago, also broke out with sores diltiazem Allergy Unknown unknown Verified 03/12/18 12:01 levofloxacin Allergy Unknown UNKNOWN Verified 03/12/18 12:01 moxifloxacin Allergy Unknown UNKNOWN Verified 03/12/18 12:01 aspirin AdvReac Intermediate increased Verified 03/12/18 12:01 bleeding (on warfarin) doxycycline AdvReac Intermediate GI SYMPTOMS Verified 03/12/18 12:01 atorvastatin AdvReac Unknown & Crestor Verified 03/12/18 12:01 = muscle aches/pains Bactrim AdvReac Unknown CONFUSION Verified 11/10/17 17:54 nortriptyline AdvReac Unknown choking on Verified 03/12/18 12:01 food NSAIDS (Non-Steroidal AdvReac Unknown AVOID PER Verified 03/12/18 12:01 Anti-Inflamma DR. HICKS - [id number] quinidine AdvReac Unknown flu-like Verified 03/12/18 12:01 symptoms sulfamethoxazole AdvReac Unknown CONFUSION Verified 03/12/18 12:01 trimethoprim AdvReac Unknown CONFUSION Verified 03/12/18 12:01 clonidine AdvReac Unknown Verified 03/12/18 12:01 hydrocodone AdvReac Unknown Verified 03/12/18 12:01 Past Med/Surg History Medical History Anticoagulated Compression fracture of lumbar vertebra Greater trochanteric bursitis of left hip Depression Iron deficiency Hypothyroidism CHF (congestive heart failure) Anemia (Acute) CKD (chronic kidney disease) stage 4, GFR 15-29 ml/min (Acute) Elevated BUN (Acute) Pulmonary hypertension (Chronic) Essential hypertension (Chronic) Cor pulmonale (chronic) (Chronic) Diabetes mellitus (Chronic 08/25/12) Atrial fibrillation (Chronic 08/25/12) Asthma (Chronic 08/25/12) Cirrhosis (Chronic) COPD (chronic obstructive pulmonary disease) (Chronic) Pleural effusion, right (Chronic) S/P R sided Pleur-X catheter by Dr. Cueva Cirrhosis (Chronic) Acute respiratory failure with hypoxia (Resolved) Cardiac pacemaker procedure (Resolved 10/31/12) Acute on chronic combined systolic and diastolic CHF (congestive heart failure) History of mitral valve replacement with mechanical valve On Coumadin therapy - follows with Dr. Araujo - goal INR 2.5-3.5 Dowd-Lee valve Hypertension Pacemaker Surgical History S/P placement of cardiac pacemaker Medtronic single-chamber permanent pacemaker. Unipolar lead. At [facility] Family History Other Diabetes mellitus HTN (hypertension) Social History marital status: Current Living Situation: Spouse Current Living Situation Comment: has [facility], who has dementia, [facility] Feels Safe at Home: Yes Safety Concerns: Feels Safe At This Time Smoking Status: Never smoker Do You Dip or Chew Tobacco: No Hx Alcohol Use: No Hx Substance Use: No Beliefs That Will Affect Care: None Communication Ability: Effective Review of Systems See HPI for pertinent positives & negatives. and A total of 10 systems reviewed and were otherwise negative Physical Exam Vital Signs Vital Signs - 24 hr 03/13/18 19:00 03/13/18 23:00 03/14/18 07:48 Temperature 36.6 C 36.6 C Temperature Source Oral Oral Pulse Rate [Finger] 79 75 82 Pulse Rhythm [Finger] Regular Pulse Strength [Finger] Normal Respiratory Rate 18 18 Respiratory Effort / Characteristics Non-Labored Spontaneous SOB on Exertion Respiratory Depth Normal Respiratory Pattern Regular Blood Pressure [Right Arm] 113/48 L 104/41 L 117/51 L Blood Pressure Mean [Right Arm] 69 62 73 Blood Pressure Position [Right Arm] Sitting Lying Lying Pulse Oximetry 75 L 97 Oxygen Delivery Method Room Air Room Air 03/14/18 08:00 03/14/18 15:00 Temperature 36.7 C Temperature Source Oral Pulse Rate [Finger] 69 Pulse Rhythm [Finger] Pulse Strength [Finger] Respiratory Rate 18 Respiratory Effort / Characteristics Non-Labored Spontaneous SOB on Exertion Respiratory Depth Normal Respiratory Pattern Regular Blood Pressure [Right Arm] 117/54 L Blood Pressure Mean [Right Arm] 75 Blood Pressure Position [Right Arm] Sitting Pulse Oximetry 99 Oxygen Delivery Method Room Air Room Air GENERAL: Awake, alert, well-appearing, in no distress HENT: Normocephalic, atraumatic. Oropharynx unremarkable. EYES: Normal conjunctiva. Sclera non-icteric. NECK: Supple. No nuchal rigidity. FROM. No masses. RESPIRATORY: Clear to auscultation. No wheezes. No rales. Normal respiratory effort. CARDIAC: Normal rate. Normal rhythm. Obvious mechanical valve on cardiac exam. No rubs. Extremities warm and well perfused. Pulses equal. No JVD. GI: Soft, non-distended. No tenderness to palpation. No rebound or guarding. No masses. RECTAL: Deferred. MUSCULOSKELETAL: Atraumatic. Chest examination reveals no tenderness. The back is symmetrical on inspection without obvious abnormality. There is no CVA tenderness to palpation. No joint edema. LOWER EXTREMITIES: Calves are equal size bilaterally and non-tender. No edema. No discoloration. NEURO: Normal sensorium. No sensory or motor deficits noted. Course 1100: Past medical records reviewed. The patient was evaluated in room C3, and a complete history and physical examination were performed. 1154: I reevaluated the patient and she is still in pain. She is now hungry. She is refusing a rectal exam at this time. 1404: I reviewed the patient's case with Dr. Sergio STAPLETON Hospitalist. He will evaluate the patient for further management. 1410: I reevaluated the patient and updated her on her test results. I discussed the treatment plan with her. She verbally agrees and understands. Consultations Consultation #1: I reviewed the patient's case with Dr. Sergio STAPLETON Hospitalist. He will evaluate the patient for further management. Time: 14:04 Administered Medications Acetaminophen (Tylenol) 650 mg PO Q4H PRN PRN Reason: pain/fever Stop: 04/11/18 16:55 Last Admin: 03/13/18 10:16 Dose: 650 mg Bumetanide (Bumex) 4 mg PO BID17 [facility] Stop: 04/12/18 08:59 Last Admin: 03/14/18 16:24 Dose: 4 mg Admin: 03/14/18 08:45 Dose: 4 mg Admin: 03/13/18 16:29 Dose: 4 mg Admin: 03/13/18 08:02 Dose: 4 mg Cyanocobalamin (Vitamin B-12) 1,000 mcg PO DAILY [facility] Stop: 04/12/18 08:59 Last Admin: 03/14/18 08:51 Dose: 1,000 mcg Admin: 03/13/18 08:05 Dose: 1,000 mcg Diazepam (Valium) 5 mg PO BID PRN PRN Reason: Anxiety Stop: 04/11/18 17:10 Last Admin: 03/13/18 22:12 Dose: 5 mg Digoxin (Lanoxin) 0.125 mg PO DAILY@1600 [facility] Stop: 04/11/18 19:59 Last Admin: 03/14/18 16:23 Dose: 0.125 mg Admin: 03/13/18 15:44 Dose: 0.125 mg Admin: 03/12/18 21:14 Dose: 0.125 mg Ezetimibe (Zetia) 10 mg PO HS [facility] Stop: 04/11/18 20:59 Last Admin: 03/13/18 21:08 Dose: 10 mg Admin: 03/12/18 21:11 Dose: 10 mg Fexofenadine HCl (Vickie) 180 mg PO DAILY [facility] Stop: 04/12/18 08:59 Last Admin: 03/14/18 08:44 Dose: 180 mg Admin: 03/13/18 08:02 Dose: 180 mg Gemfibrozil (Lopid) 600 mg PO BID17 [facility] Stop: 04/12/18 08:59 Last Admin: 03/14/18 17:34 Dose: 600 mg Admin: 03/14/18 08:45 Dose: 600 mg Admin: 03/13/18 17:46 Dose: 600 mg Admin: 03/13/18 08:03 Dose: 600 mg Hydralazine HCl (Apresoline) 25 mg PO BID [facility] Stop: 04/11/18 20:59 Last Admin: 03/14/18 08:50 Dose: 25 mg Admin: 03/13/18 21:07 Dose: 25 mg Admin: 03/13/18 08:02 Dose: 25 mg Admin: 03/12/18 21:11 Dose: 25 mg Hydrocortisone (Hydrocortisone 1%) 1 appln EXT QID [facility] Stop: 04/11/18 20:59 Last Admin: 03/14/18 16:24 Dose: 1 appln Admin: 03/14/18 12:47 Dose: 1 appln Admin: 03/14/18 08:53 Dose: 1 appln Admin: 03/13/18 21:07 Dose: 1 appln Admin: 03/13/18 17:45 Dose: 1 appln Admin: 03/13/18 12:42 Dose: 1 appln Admin: 03/13/18 08:03 Dose: 1 appln Admin: 03/12/18 21:11 Dose: 1 appln Insulin Aspart (Novolog Flexpen) 0 units SC [facility]; Protocol Stop: 04/11/18 20:59 Last Admin: 03/14/18 17:35 Dose: 9 units Admin: 03/14/18 12:49 Dose: 7 units Admin: 03/14/18 08:48 Dose: 5 units Admin: 03/13/18 21:04 Dose: 1 units Admin: 03/13/18 17:42 Dose: 7 units Admin: 03/13/18 12:39 Dose: 8 units Admin: 03/13/18 08:06 Dose: 7 units Admin: 03/12/18 21:12 Dose: 6 units Insulin Glargine (Lantus Solostar Pen) 0 units SC BID [facility]; Protocol Stop: 04/12/18 09:29 Last Admin: 03/14/18 08:46 Dose: 8 units Admin: 03/13/18 21:04 Dose: 8 units Admin: 03/13/18 10:41 Dose: 8 units [facility]othy[facility]) [facility] Stop: 04/12/18 06:29 Last Admin: 03/14/18 05:16 Dose: 175 mcg Admin: 03/13/18 06:21 Dose: 175 mcg Lidocaine (Lidoderm 5%) 1 patch TD QAM [facility] Stop: 04/12/18 08:59 Last Admin: 03/14/18 08:55 Dose: 1 patch Admin: 03/13/18 08:03 Dose: 1 patch Metoprolol Succinate (Toprol Xl) 100 mg PO DAILY [facility] Stop: 04/12/18 08:59 Last Admin: 03/14/18 08:50 Dose: 100 mg Admin: 03/13/18 08:04 Dose: 100 mg Miscellaneous (Order Awaiting Action) 1 ea N/A QS [facility] Stop: 04/12/18 00:00 Last Admin: 03/14/18 16:24 Dose: Not Given Admin: 03/14/18 08:50 Dose: Not Given Admin: 03/13/18 23:46 Dose: Not Given Admin: 03/13/18 17:39 Dose: Not Given Admin: 03/13/18 08:09 Dose: Not Given Admin: 03/13/18 00:25 Dose: Not Given Miscellaneous (Remove Lidoderm Patch) 1 ea N/A DAILY@2100 [facility] Stop: 04/12/18 20:59 Last Admin: 03/13/18 21:08 Dose: 1 ea Montelukast Sodium (Singulair) 10 mg PO DAILY [facility] Stop: 04/12/18 08:59 Last Admin: 03/14/18 08:51 Dose: 10 mg Admin: 03/13/18 08:05 Dose: 10 mg Morphine Sulfate (Morphine Sulfate) 2 mg IV Q4H PRN PRN Reason: Pain Stop: 03/26/18 18:52 Last Admin: 03/13/18 17:49 Dose: 2 mg Admin: 03/12/18 23:31 Dose: 2 mg Pantoprazole Sodium (Protonix) 40 mg PO QAM [facility] Stop: 04/12/18 08:59 Last Admin: 03/14/18 08:50 Dose: 40 mg Admin: 03/13/18 08:04 Dose: 40 mg Potassium Chloride (Klor-Con M20) 20 meq PO TID [facility] Stop: 04/11/18 20:59 Last Admin: 03/14/18 15:23 Dose: 20 meq Admin: 03/14/18 08:52 Dose: 20 meq Admin: 03/13/18 21:06 Dose: 20 meq Admin: 03/13/18 13:50 Dose: Not Given Admin: 03/13/18 08:06 Dose: Not Given Admin: 03/12/18 21:11 Dose: 20 meq Pyridoxine HCl (Vitamin B-6) 100 mg PO DAILY [facility] Stop: 04/12/18 08:59 Last Admin: 03/14/18 08:51 Dose: 100 mg Admin: 03/13/18 08:05 Dose: 100 mg Ranitidine HCl (Zantac) 150 mg PO BID [facility] Stop: 04/11/18 20:59 Last Admin: 03/14/18 08:50 Dose: 150 mg Admin: 03/13/18 21:10 Dose: 150 mg Admin: 03/13/18 08:05 Dose: 150 mg Admin: 03/12/18 21:11 Dose: 150 mg Saccharomyces Boulardii (Florastor) 250 mg PO DAILY [facility] Stop: 04/12/18 08:59 Last Admin: 03/14/18 08:52 Dose: 250 mg Admin: 03/13/18 08:02 Dose: 250 mg Tiotropium [place] (Spiriva) 1 puffs INH QAM [facility] Stop: 04/12/18 08:59 Last Admin: 03/14/18 08:53 Dose: 1 puffs Admin: 03/13/18 08:05 Dose: 1 puffs Vitamin D (Vitamin D3) 1,000 units PO TID [facility] Stop: 04/11/18 20:59 Last Admin: 03/14/18 15:24 Dose: 1,000 units Admin: 03/14/18 08:44 Dose: 1,000 units Admin: 03/13/18 21:10 Dose: 1,000 units Admin: 03/13/18 13:50 Dose: 1,000 units Admin: 03/13/18 08:05 Dose: 1,000 units Admin: 03/12/18 21:10 Dose: 1,000 units Warfarin Sodium (Coumadin) 4 mg PO MoWeFr@1600 [facility] Stop: 04/12/18 15:59 Last Admin: 03/13/18 15:44 Dose: 4 mg Warfarin Sodium (Coumadin) 3 mg PO SuTuThSa@1600 [facility] Stop: 04/11/18 19:59 Last Admin: 03/14/18 16:23 Dose: 3 mg Admin: 03/12/18 21:11 Dose: 3 mg Discontinued Medications Bumetanide (Bumex) 4 mg PO NOW ONE Stop: 03/13/18 00:26 Last Admin: 03/13/18 04:23 Dose: Not Given Hydromorphone HCl (Dilaudid) 0.5 mg IV Q15M PRN PRN Reason: Pain Stop: 03/26/18 11:04 Last Admin: 03/12/18 11:21 Dose: 0.5 mg Insulin Glargine (Lantus Solostar Pen) 10 units SC NOW STA Stop: 03/12/18 21:03 Last Admin: 03/12/18 21:41 Dose: 10 units Ondansetron HCl (Zofran) 4 mg IV NOW STA Stop: 03/12/18 11:06 Last Admin: 03/12/18 11:22 Dose: 4 mg Medical Decision Making Differential Diagnosis Etiologies such as metabolic, infection, hyp/hyperglycemia, electrolyte abnormalities, cardiac sources, intracerebral event, toxicologic, neurologic, as well as others were entertained. Medical Records Attestation: I reviewed the patient's medical records. Home Medications Current Medication List: was personally reviewed by me Laboratory Data Attestation: I reviewed the patient's lab results. Result diagrams: 03/14/18 07:48 03/14/18 07:48 Lab Results 03/12/18 03/12/18 03/12/18 Range/Units 11:12 11:12 11:12 WBC 7.09 (4.8-10.8) K/uL RBC 2.10 L (4.2-5.4) M/uL Hgb 6.0 L* (12.0-16.0) g/dL POC Hgb (12.0-16.0) g/dl Hct 19.1 L* (37-47) % POC Hct (37-47) % MCV 91.0 (80-100) fL MCH 28.6 (25-34) pg MCHC 31.4 L (32-36) g/dL RDW Std Deviation 55.0 H (36.4-46.3) fL RDW Coeff of Marco 16.8 H (11.5-14.5) % Plt Count 215 (130-400) K/uL MPV 9.4 (7.4-10.4) fL Immature Gran % (Auto) 0.3 % Neut % (Auto) 71.2 % Lymph % (Auto) 6.8 % Rosebud % (Auto) 18.6 % Eos % (Auto) 2.8 % Baso % (Auto) 0.3 % Immature Gran # (Auto) 0.02 (0.00-0.02) K/uL Neut # (Auto) 5.05 (1.4-6.5) K/uL Lymph # (Auto) 0.48 L (1.2-3.4) K/uL [place] # (Auto) 1.32 H (0.11-0.59) K/uL Eos # (Auto) 0.20 (0-0.5) K/uL Baso # (Auto) 0.02 (0-0.2) K/uL Polychromasia 1+ Hypochromasia Basophilic Stippling 1+ Anisocytosis Present Spherocytes 1+ PT 24.6 H (9.0-12.0) Seconds INR 2.6 H (0.9-1.1) APTT 32.6 H (21.0-31.0) Seconds PTT Ratio 1.3 POC Sodium (135-144) mEq/L Sodium 133 L (136-145) mmol/L POC Potassium (3.3-5.0) mEq/L Potassium 3.3 L (3.5-5.1) mmol/L POC Chloride (101-112) mEq/L Chloride 100 (98-107) mmol/L Carbon Dioxide 23 (21-32) mmol/L POC Total CO2 (24-31) mEq/l Anion Gap 10.0 (3-11) POC Anion Gap (16-25) mmol/L POC BUN (7-18) mg/dl BUN 121 H (7-18) mg/dl Creatinine 2.91 H (0.6-1.2) mg/dl POC Creatinine (0.6-1.3) mg/dl Est Cr Clr Drug Dosing 15.3 ml/min Est GFR ( Amer) 17.5 Est GFR (Non-Af Amer) 15.1 BUN/Creatinine Ratio 41.6 H (10-20) Glucose 104 H (70-99) mg/dl POC Glucose (70-99) POC Glucose (other) (70-99) mg/dl Estimat Average Glucose mg/dl Hemoglobin A1c (4.5-5.6) % Calcium 8.2 L (8.5-10.1) mg/dl POC Ioniz Calcium Fadi (1.12-1.32) mmol/l Iron (35-150) mcg/dl TIBC (250-450) mcg/dl Ferritin (8-388) ng/ml Total Bilirubin 0.4 (0.1-1) mg/dl AST 30 (15-37) U/L ALT 24 (12-78) U/L Alkaline Phosphatase 124 H (45-117) U/L Total Creatine Kinase (26-192) U/L Troponin I 0.025 (0-0.045) ng/ml Total Protein 7.4 (6.4-8.2) gm/dl Albumin 2.7 L (3.4-5.0) gm/dl Globulin 4.7 H (2.5-4.0) gm/dl Albumin/Globulin Ratio 0.6 L (0.9-2) Stool Occult Bld Scrn (Negative) Blood Type Antibody Screen Antibody Identification Crossmatch 03/12/18 03/12/18 03/12/18 Range/Units 11:12 11:12 11:22 WBC (4.8-10.8) K/uL RBC (4.2-5.4) M/uL Hgb (12.0-16.0) g/dL POC Hgb 6.1 L* (12.0-16.0) g/dl Hct (37-47) % POC Hct 18 L* (37-47) % MCV (80-100) fL MCH (25-34) pg MCHC (32-36) g/dL RDW Std Deviation (36.4-46.3) fL RDW Coeff of Marco (11.5-14.5) % Plt Count (130-400) K/uL MPV (7.4-10.4) fL Immature Gran % (Auto) % Neut % (Auto) % Lymph % (Auto) % [place] % (Auto) % Eos % (Auto) % Baso % (Auto) % Immature Gran # (Auto) (0.00-0.02) K/uL Neut # (Auto) (1.4-6.5) K/uL Lymph # (Auto) (1.2-3.4) K/uL [place] # (Auto) (0.11-0.59) K/uL Eos # (Auto) (0-0.5) K/uL Baso # (Auto) (0-0.2) K/uL Polychromasia Hypochromasia Basophilic Stippling Anisocytosis Spherocytes PT (9.0-12.0) Seconds INR (0.9-1.1) APTT (21.0-31.0) Seconds PTT Ratio POC Sodium 135 (135-144) mEq/L Sodium (136-145) mmol/L POC Potassium 3.3 (3.3-5.0) mEq/L Potassium (3.5-5.1) mmol/L POC Chloride 97 L (101-112) mEq/L Chloride (98-107) mmol/L Carbon Dioxide (21-32) mmol/L POC Total CO2 24 (24-31) mEq/l Anion Gap (3-11) POC Anion Gap 18.0 (16-25) mmol/L POC BUN 115 H* (7-18) mg/dl BUN (7-18) mg/dl Creatinine (0.6-1.2) mg/dl POC Creatinine 3.0 H (0.6-1.3) mg/dl Est Cr Clr Drug Dosing ml/min Est GFR ( Amer) Est GFR (Non-Af Amer) BUN/Creatinine Ratio (10-20) Glucose (70-99) mg/dl POC Glucose (70-99) POC Glucose (other) 108 H (70-99) mg/dl Estimat Average Glucose mg/dl Hemoglobin A1c (4.5-5.6) % Calcium (8.5-10.1) mg/dl POC Ioniz Calcium Fadi 1.11 L (1.12-1.32) mmol/l Iron (35-150) mcg/dl TIBC (250-450) mcg/dl Ferritin (8-388) ng/ml Total Bilirubin (0.1-1) mg/dl AST (15-37) U/L ALT (12-78) U/L Alkaline Phosphatase (45-117) U/L Total Creatine Kinase 67 (26-192) U/L Troponin I (0-0.045) ng/ml Total Protein (6.4-8.2) gm/dl Albumin (3.4-5.0) gm/dl Globulin (2.5-4.0) gm/dl Albumin/Globulin Ratio (0.9-2) Stool Occult Bld Scrn (Negative) Blood Type A Positive Antibody Screen POSITIVE A Antibody Identification Anti-c Crossmatch See Detail 03/12/18 03/13/18 03/13/18 Range/Units 20:43 06:33 06:33 WBC 5.80 (4.8-10.8) K/uL RBC 2.63 L (4.2-5.4) M/uL Hgb 7.4 L (12.0-16.0) g/dL POC Hgb (12.0-16.0) g/dl Hct 23.7 L (37-47) % POC Hct (37-47) % MCV 90.1 (80-100) fL MCH 28.1 (25-34) pg MCHC 31.2 L (32-36) g/dL RDW Std Deviation 54.2 H (36.4-46.3) fL RDW Coeff of Marco 16.6 H (11.5-14.5) % Plt Count 202 (130-400) K/uL MPV 9.8 (7.4-10.4) fL Immature Gran % (Auto) 0.2 % Neut % (Auto) 72.8 % Lymph % (Auto) 7.1 % [place] % (Auto) 16.0 % Eos % (Auto) 3.6 % Baso % (Auto) 0.3 % Immature Gran # (Auto) 0.01 (0.00-0.02) K/uL Neut # (Auto) 4.22 (1.4-6.5) K/uL Lymph # (Auto) 0.41 L (1.2-3.4) K/uL [place] # (Auto) 0.93 H (0.11-0.59) K/uL Eos # (Auto) 0.21 (0-0.5) K/uL Baso # (Auto) 0.02 (0-0.2) K/uL Polychromasia 1+ Hypochromasia Present Basophilic Stippling Anisocytosis Spherocytes PT 20.9 H (9.0-12.0) Seconds INR 2.2 H (0.9-1.1) APTT (21.0-31.0) Seconds PTT Ratio POC Sodium (135-144) mEq/L Sodium (136-145) mmol/L POC Potassium (3.3-5.0) mEq/L Potassium (3.5-5.1) mmol/L POC Chloride (101-112) mEq/L Chloride (98-107) mmol/L Carbon Dioxide (21-32) mmol/L POC Total CO2 (24-31) mEq/l Anion Gap (3-11) POC Anion Gap (16-25) mmol/L POC BUN (7-18) mg/dl BUN (7-18) mg/dl Creatinine (0.6-1.2) mg/dl POC Creatinine (0.6-1.3) mg/dl Est Cr Clr Drug Dosing ml/min Est GFR ( Amer) Est GFR (Non-Af Amer) BUN/Creatinine Ratio (10-20) Glucose (70-99) mg/dl POC Glucose 174 H (70-99) POC Glucose (other) (70-99) mg/dl Estimat Average Glucose mg/dl Hemoglobin A1c (4.5-5.6) % Calcium (8.5-10.1) mg/dl POC Ioniz Calcium Fadi (1.12-1.32) mmol/l Iron (35-150) mcg/dl TIBC (250-450) mcg/dl Ferritin (8-388) ng/ml Total Bilirubin (0.1-1) mg/dl AST (15-37) U/L ALT (12-78) U/L Alkaline Phosphatase (45-117) U/L Total Creatine Kinase (26-192) U/L Troponin I (0-0.045) ng/ml Total Protein (6.4-8.2) gm/dl Albumin (3.4-5.0) gm/dl Globulin (2.5-4.0) gm/dl Albumin/Globulin Ratio (0.9-2) Stool Occult Bld Scrn (Negative) Blood Type Antibody Screen Antibody Identification Crossmatch 03/13/18 03/13/18 03/13/18 Range/Units 06:33 06:33 07:40 WBC (4.8-10.8) K/uL RBC (4.2-5.4) M/uL Hgb (12.0-16.0) g/dL POC Hgb (12.0-16.0) g/dl Hct (37-47) % POC Hct (37-47) % MCV (80-100) fL MCH (25-34) pg MCHC (32-36) g/dL RDW Std Deviation (36.4-46.3) fL RDW Coeff of Marco (11.5-14.5) % Plt Count (130-400) K/uL MPV (7.4-10.4) fL Immature Gran % (Auto) % Neut % (Auto) % Lymph % (Auto) % [place] % (Auto) % Eos % (Auto) % Baso % (Auto) % Immature Gran # (Auto) (0.00-0.02) K/uL Neut # (Auto) (1.4-6.5) K/uL Lymph # (Auto) (1.2-3.4) K/uL [place] # (Auto) (0.11-0.59) K/uL Eos # (Auto) (0-0.5) K/uL Baso # (Auto) (0-0.2) K/uL Polychromasia Hypochromasia Basophilic Stippling Anisocytosis Spherocytes PT (9.0-12.0) Seconds INR (0.9-1.1) APTT (21.0-31.0) Seconds PTT Ratio POC Sodium (135-144) mEq/L Sodium 133 L (136-145) mmol/L POC Potassium (3.3-5.0) mEq/L Potassium 3.7 (3.5-5.1) mmol/L POC Chloride (101-112) mEq/L Chloride 99 (98-107) mmol/L Carbon Dioxide 24 (21-32) mmol/L POC Total CO2 (24-31) mEq/l Anion Gap 11.0 (3-11) POC Anion Gap (16-25) mmol/L POC BUN (7-18) mg/dl BUN 123 H (7-18) mg/dl Creatinine 2.95 H (0.6-1.2) mg/dl POC Creatinine (0.6-1.3) mg/dl Est Cr Clr Drug Dosing 15.5 ml/min Est GFR ( Amer) 17.3 Est GFR (Non-Af Amer) 14.9 BUN/Creatinine Ratio 41.7 H (10-20) Glucose 98 (70-99) mg/dl POC Glucose 143 H (70-99) POC Glucose (other) (70-99) mg/dl Estimat Average Glucose 100 mg/dl Hemoglobin A1c 5.1 (4.5-5.6) % Calcium 8.2 L (8.5-10.1) mg/dl POC Ioniz Calcium Fadi (1.12-1.32) mmol/l Iron 44 (35-150) mcg/dl TIBC 345 (250-450) mcg/dl Ferritin 15.3 (8-388) ng/ml Total Bilirubin 0.5 (0.1-1) mg/dl AST 26 (15-37) U/L ALT 24 (12-78) U/L Alkaline Phosphatase 120 H (45-117) U/L Total Creatine Kinase (26-192) U/L Troponin I (0-0.045) ng/ml Total Protein 6.9 (6.4-8.2) gm/dl Albumin 2.6 L (3.4-5.0) gm/dl Globulin 4.3 H (2.5-4.0) gm/dl Albumin/Globulin Ratio 0.6 L (0.9-2) Stool Occult Bld Scrn (Negative) Blood Type Antibody Screen Antibody Identification Crossmatch 12/28/18 12/28/18 12/28/18 Range/Units 11:34 16:40 20:40 WBC (4.8-10.8) K/uL RBC (4.2-5.4) M/uL Hgb (12.0-16.0) g/dL POC Hgb (12.0-16.0) g/dl Hct (37-47) % POC Hct (37-47) % MCV (80-100) fL MCH (25-34) pg MCHC (32-36) g/dL RDW Std Deviation (36.4-46.3) fL RDW Coeff of Marco (11.5-14.5) % Plt Count (130-400) K/uL MPV (7.4-10.4) fL Immature Gran % (Auto) % Neut % (Auto) % Lymph % (Auto) % Rosebud % (Auto) % Eos % (Auto) % Baso % (Auto) % Immature Gran # (Auto) (0.00-0.02) K/uL Neut # (Auto) (1.4-6.5) K/uL Lymph # (Auto) (1.2-3.4) K/uL Rosebud # (Auto) (0.11-0.59) K/uL Eos # (Auto) (0-0.5) K/uL Baso # (Auto) (0-0.2) K/uL Polychromasia Hypochromasia Basophilic Stippling Anisocytosis Spherocytes PT (9.0-12.0) Seconds INR (0.9-1.1) APTT (21.0-31.0) Seconds PTT Ratio POC Sodium (135-144) mEq/L Sodium (136-145) mmol/L POC Potassium (3.3-5.0) mEq/L Potassium (3.5-5.1) mmol/L POC Chloride (101-112) mEq/L Chloride (98-107) mmol/L Carbon Dioxide (21-32) mmol/L POC Total CO2 (24-31) mEq/l Anion Gap (3-11) POC Anion Gap (16-25) mmol/L POC BUN (7-18) mg/dl BUN (7-18) mg/dl Creatinine (0.6-1.2) mg/dl POC Creatinine (0.6-1.3) mg/dl Est Cr Clr Drug Dosing ml/min Est GFR ( Amer) Est GFR (Non-Af Amer) BUN/Creatinine Ratio (10-20) Glucose (70-99) mg/dl POC Glucose 174 H 178 H 167 H (70-99) POC Glucose (other) (70-99) mg/dl Estimat Average Glucose mg/dl Hemoglobin A1c (4.5-5.6) % Calcium (8.5-10.1) mg/dl POC Ioniz Calcium Fadi (1.12-1.32) mmol/l Iron (35-150) mcg/dl TIBC (250-450) mcg/dl Ferritin (8-388) ng/ml Total Bilirubin (0.1-1) mg/dl AST (15-37) U/L ALT (12-78) U/L Alkaline Phosphatase (45-117) U/L Total Creatine Kinase (26-192) U/L Troponin I (0-0.045) ng/ml Total Protein (6.4-8.2) gm/dl Albumin (3.4-5.0) gm/dl Globulin (2.5-4.0) gm/dl Albumin/Globulin Ratio (0.9-2) Stool Occult Bld Scrn (Negative) Blood Type Antibody Screen Antibody Identification Crossmatch 03/14/18 03/14/18 03/14/18 Range/Units 07:41 07:48 07:48 WBC 5.74 (4.8-10.8) K/uL RBC 2.91 L (4.2-5.4) M/uL Hgb 8.1 L (12.0-16.0) g/dL POC Hgb (12.0-16.0) g/dl Hct 25.9 L (37-47) % POC Hct (37-47) % MCV 89.0 (80-100) fL MCH 27.8 (25-34) pg MCHC 31.3 L (32-36) g/dL RDW Std Deviation 53.9 H (36.4-46.3) fL RDW Coeff of Marco 16.4 H (11.5-14.5) % Plt Count 211 (130-400) K/uL MPV 9.5 (7.4-10.4) fL Immature Gran % (Auto) 0.2 % Neut % (Auto) 73.3 % Lymph % (Auto) 6.8 % Rosebud % (Auto) 14.8 % Eos % (Auto) 4.7 % Baso % (Auto) 0.2 % Immature Gran # (Auto) 0.01 (0.00-0.02) K/uL Neut # (Auto) 4.21 (1.4-6.5) K/uL Lymph # (Auto) 0.39 L (1.2-3.4) K/uL Rosebud # (Auto) 0.85 H (0.11-0.59) K/uL Eos # (Auto) 0.27 (0-0.5) K/uL Baso # (Auto) 0.01 (0-0.2) K/uL Polychromasia 1+ Hypochromasia Present Basophilic Stippling Anisocytosis Spherocytes PT 27.5 H (9.0-12.0) Seconds INR 2.9 H (0.9-1.1) APTT (21.0-31.0) Seconds PTT Ratio POC Sodium (135-144) mEq/L Sodium (136-145) mmol/L POC Potassium (3.3-5.0) mEq/L Potassium (3.5-5.1) mmol/L POC Chloride (101-112) mEq/L Chloride (98-107) mmol/L Carbon Dioxide (21-32) mmol/L POC Total CO2 (24-31) mEq/l Anion Gap (3-11) POC Anion Gap (16-25) mmol/L POC BUN (7-18) mg/dl BUN (7-18) mg/dl Creatinine (0.6-1.2) mg/dl POC Creatinine (0.6-1.3) mg/dl Est Cr Clr Drug Dosing ml/min Est GFR ( Amer) Est GFR (Non-Af Amer) BUN/Creatinine Ratio (10-20) Glucose (70-99) mg/dl POC Glucose 122 H (70-99) POC Glucose (other) (70-99) mg/dl Estimat Average Glucose mg/dl Hemoglobin A1c (4.5-5.6) % Calcium (8.5-10.1) mg/dl POC Ioniz Calcium Fadi (1.12-1.32) mmol/l Iron (35-150) mcg/dl TIBC (250-450) mcg/dl Ferritin (8-388) ng/ml Total Bilirubin (0.1-1) mg/dl AST (15-37) U/L ALT (12-78) U/L Alkaline Phosphatase (45-117) U/L Total Creatine Kinase (26-192) U/L Troponin I (0-0.045) ng/ml Total Protein (6.4-8.2) gm/dl Albumin (3.4-5.0) gm/dl Globulin (2.5-4.0) gm/dl Albumin/Globulin Ratio (0.9-2) Stool Occult Bld Scrn (Negative) Blood Type Antibody Screen Antibody Identification Crossmatch 03/14/18 03/14/18 03/14/18 Range/Units 07:48 10:30 11:34 WBC (4.8-10.8) K/uL RBC (4.2-5.4) M/uL Hgb (12.0-16.0) g/dL POC Hgb (12.0-16.0) g/dl Hct (37-47) % POC Hct (37-47) % MCV (80-100) fL MCH (25-34) pg MCHC (32-36) g/dL RDW Std Deviation (36.4-46.3) fL RDW Coeff of Marco (11.5-14.5) % Plt Count (130-400) K/uL MPV (7.4-10.4) fL Immature Gran % (Auto) % Neut % (Auto) % Lymph % (Auto) % Rosebud % (Auto) % Eos % (Auto) % Baso % (Auto) % Immature Gran # (Auto) (0.00-0.02) K/uL Neut # (Auto) (1.4-6.5) K/uL Lymph # (Auto) (1.2-3.4) K/uL Rosebud # (Auto) (0.11-0.59) K/uL Eos # (Auto) (0-0.5) K/uL Baso # (Auto) (0-0.2) K/uL Polychromasia Hypochromasia Basophilic Stippling Anisocytosis Spherocytes PT (9.0-12.0) Seconds INR (0.9-1.1) APTT (21.0-31.0) Seconds PTT Ratio POC Sodium (135-144) mEq/L Sodium 134 L (136-145) mmol/L POC Potassium (3.3-5.0) mEq/L Potassium 3.8 (3.5-5.1) mmol/L POC Chloride (101-112) mEq/L Chloride 98 (98-107) mmol/L Carbon Dioxide 25 (21-32) mmol/L POC Total CO2 (24-31) mEq/l Anion Gap 11.0 (3-11) POC Anion Gap (16-25) mmol/L POC BUN (7-18) mg/dl BUN 117 H (7-18) mg/dl Creatinine 2.90 H (0.6-1.2) mg/dl POC Creatinine (0.6-1.3) mg/dl Est Cr Clr Drug Dosing 15.7 ml/min Est GFR ( Amer) 17.6 Est GFR (Non-Af Amer) 15.2 BUN/Creatinine Ratio 40.2 H (10-20) Glucose 103 H (70-99) mg/dl POC Glucose 185 H (70-99) POC Glucose (other) (70-99) mg/dl Estimat Average Glucose mg/dl Hemoglobin A1c (4.5-5.6) % Calcium 8.4 L (8.5-10.1) mg/dl POC Ioniz Calcium Fadi (1.12-1.32) mmol/l Iron (35-150) mcg/dl TIBC (250-450) mcg/dl Ferritin (8-388) ng/ml Total Bilirubin 0.4 (0.1-1) mg/dl AST 35 (15-37) U/L ALT 26 (12-78) U/L Alkaline Phosphatase 126 H (45-117) U/L Total Creatine Kinase (26-192) U/L Troponin I (0-0.045) ng/ml Total Protein 7.2 (6.4-8.2) gm/dl Albumin 2.7 L (3.4-5.0) gm/dl Globulin 4.5 H (2.5-4.0) gm/dl Albumin/Globulin Ratio 0.6 L (0.9-2) Stool Occult Bld Scrn Positive H (Negative) Blood Type Antibody Screen Antibody Identification Crossmatch 03/14/18 Range/Units 16:44 WBC (4.8-10.8) K/uL RBC (4.2-5.4) M/uL Hgb (12.0-16.0) g/dL POC Hgb (12.0-16.0) g/dl Hct (37-47) % POC Hct (37-47) % MCV (80-100) fL MCH (25-34) pg MCHC (32-36) g/dL RDW Std Deviation (36.4-46.3) fL RDW Coeff of Marco (11.5-14.5) % Plt Count (130-400) K/uL MPV (7.4-10.4) fL Immature Gran % (Auto) % Neut % (Auto) % Lymph % (Auto) % Rosebud % (Auto) % Eos % (Auto) % Baso % (Auto) % Immature Gran # (Auto) (0.00-0.02) K/uL Neut # (Auto) (1.4-6.5) K/uL Lymph # (Auto) (1.2-3.4) K/uL Rosebud # (Auto) (0.11-0.59) K/uL Eos # (Auto) (0-0.5) K/uL Baso # (Auto) (0-0.2) K/uL Polychromasia Hypochromasia Basophilic Stippling Anisocytosis Spherocytes PT (9.0-12.0) Seconds INR (0.9-1.1) APTT (21.0-31.0) Seconds PTT Ratio POC Sodium (135-144) mEq/L Sodium (136-145) mmol/L POC Potassium (3.3-5.0) mEq/L Potassium (3.5-5.1) mmol/L POC Chloride (101-112) mEq/L Chloride (98-107) mmol/L Carbon Dioxide (21-32) mmol/L POC Total CO2 (24-31) mEq/l Anion Gap (3-11) POC Anion Gap (16-25) mmol/L POC BUN (7-18) mg/dl BUN (7-18) mg/dl Creatinine (0.6-1.2) mg/dl POC Creatinine (0.6-1.3) mg/dl Est Cr Clr Drug Dosing ml/min Est GFR ( Amer) Est GFR (Non-Af Amer) BUN/Creatinine Ratio (10-20) Glucose (70-99) mg/dl POC Glucose 180 H (70-99) POC Glucose (other) (70-99) mg/dl Estimat Average Glucose mg/dl Hemoglobin A1c (4.5-5.6) % Calcium (8.5-10.1) mg/dl POC Ioniz Calcium Fadi (1.12-1.32) mmol/l Iron (35-150) mcg/dl TIBC (250-450) mcg/dl Ferritin (8-388) ng/ml Total Bilirubin (0.1-1) mg/dl AST (15-37) U/L ALT (12-78) U/L Alkaline Phosphatase (45-117) U/L Total Creatine Kinase (26-192) U/L Troponin I (0-0.045) ng/ml Total Protein (6.4-8.2) gm/dl Albumin (3.4-5.0) gm/dl Globulin (2.5-4.0) gm/dl Albumin/Globulin Ratio (0.9-2) Stool Occult Bld Scrn (Negative) Blood Type Antibody Screen Antibody Identification Crossmatch Imaging Data Radiologist's Impression: Radiology results as stated below per my review and the radiologist's interpretation: XR chest 1V portable CLINICAL HISTORY: Fall. COMPARISON STUDY: Chest radiograph February 17, 2018. FINDINGS: Note is made of median sternotomy wires, left-sided pacer and prosthetic cardiac valve. Moderate cardiomegaly is unchanged. There is no pneumothorax. Right basilar pleural catheter remains in place. A small right pleural effusion is unchanged. Suspected nipple shadow projects over the left lower lung. There is pulmonary vascular congestion. Linear bibasilar opacities favor atelectasis. IMPRESSION: 1. No pneumothorax. 2. No change in a small right pleural effusion with right pleural catheter in place. 3. Pleural vascular congestion with suspected mild pulmonary edema. Electronically signed by: Randy Melton M.D. 03/12/2018 11:43 AM XR elbow RT 2V CLINICAL HISTORY: Right elbow pain following fall. COMPARISON: Right elbow radiographs December 23, 2016. FINDINGS: Alignment of the right elbow is anatomic. No acute fracture or joint effusion is noted. IMPRESSION: No fracture. Electronically signed by: Randy Melton M.D. 03/12/2018 11:[address] head/brain wo con CLINICAL HISTORY: Head pain status post trauma COMPARISON STUDY: November 10, 2017 TECHNIQUE: Axial CT of the brain is performed from the vertex to the skull base. IV contrast was not administered for this examination. A dose lowering technique was utilized adhering to the principles of ALARA. CT DOSE: FINDINGS: No intra or extra-axial mass lesions are visualized. There is no CT evidence of acute cortical infarction. There is no evidence of midline shift. There is no acute hemorrhage. No calvarial fractures are visualized. There are patchy white matter hypodensities likely on a small vessel basis. 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 There is no evidence of pathologic ventricular dilatation. There is no evidence of acute sinusitis. There is an age-indeterminate nasal bone fracture. IMPRESSION: 1. No acute intracranial findings 2. Age-indeterminate nasal bone fracture Electronically signed by: Nikita Culp M.D. 03/12/2018 1:[address] facial bones wo con CT DOSE: CLINICAL HISTORY: Facial pain status post trauma COMPARISON STUDY: No previous studies for comparison. TECHNIQUE: Helical images were acquired in the transverse plane. The study was reviewed and analyzed on the independent 3-D workstation. A dose lowering technique was utilized adhering to the principles of ALARA. The pterygoid plates appear intact. The zygomatic arches appear intact. The globes appear intact. There is no evidence of orbital emphysema. The orbital snow and floor appear intact. The mandibular condyles appear intact. IMPRESSION: 1. Age-indeterminate nasal bone fractures 2. No additional facial fractures identified. Electronically signed by: Nikita Culp M.D. 03/12/2018 1:[address] cervical spine wo con CLINICAL HISTORY: 77 years-old Female presenting with Pt c/o spine pain s/p fall. TECHNIQUE: Multidetector CT of the cervical spine was performed without the use of intravenous contrast. IV contrast: None. A dose lowering technique was used consistent with the principles of ALARA (as low as reasonably achievable). COMPARISON: 11/10/2017. CT DOSE (mGy.cm): The estimated cumulative dose is not available. 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 Prostatic valve noted with median sternotomy wires. Right pleural drain position at the right lung base. Cardiomegaly. Normal cervical lordosis. Vertebral bodies maintain normal height and alignment. Mild intervertebral disc height loss noted at C6-7. Ossification of the nucleus pulposus of the intervertebral discs noted to varying degrees at nearly every level. Prominent disc osteophyte complexes at C4-5 through C6-7 with posterior bony spurring to a mild to moderate degree. There is also a prominent calcification of the ligamentum flavum along the left aspect at the level of C5 resulting in further narrowing of the spinal canal at this level. Mild facet arthropathy is evident in the mid cervical spine. Facet arthropathy and uncovertebral hypertrophy result in osseous neural foraminal narrowing bilaterally at C4-5, on the left at C5-6, and bilaterally at C6-7. No acute fracture or acute subluxation. Lung apices clear. Paraspinal soft tissues within normal limits. IMPRESSION: 1. No acute osseous injury of the cervical spine. 2. Multilevel degenerative changes. Electronically signed by: Adam Nagel M.D. 03/12/2018 1:[address] thoracic spine wo con CT DOSE: CLINICAL HISTORY: Thoracic spine pain status post trauma TECHNIQUE: Helical images were acquired in transverse plane. Sagittal and coronal reformatted images were acquired. A dose lowering technique was utilized adhering to the principles of ALARA. COMPARISON STUDY: None. FINDINGS: There are mild multilevel degenerative changes present. No acute fractures or traumatic subluxations are visualized. There are nonspecific basilar airspace opacities, likely atelectatic although an infectious etiology cannot be excluded. There is no evidence for a paraspinal hematoma. There is a very small right pleural effusion. IMPRESSION: 1. Mild degenerative change 2. No acute fractures or traumatic subluxations 3. Small right pleural effusion Electronically signed by: Nikita Culp M.D. 03/12/2018 1:[address] lumbar spine wo con CLINICAL HISTORY: Lumbar spine pain following fall. COMPARISON STUDY: Lumbar spine CT August 31, 2017. TECHNIQUE: Axial images of the lumbar spine were obtained without IV contrast. Sagittal and coronal reconstructions were viewed. Study was performed utilizing automated exposure control for dose reduction. Study was performed according to ALARA principles. FINDINGS: Please note that the CT of the abdomen and pelvis will be reported separately. Grade one anterolisthesis of L4 and L5 is unchanged exam of August. A moderate L3 compression fracture is again noted. This was shown on exam of August 31, 2017. Concavity with loss of vertebral body height has slightly increased. Minimal retropulsion is unchanged. A mild compression fracture involving the inferior endplate of L2 is also unchanged since that exam. There is no acute lumbar spine fracture. There is severe multilevel facet arthrosis and moderate multilevel degenerative disc disease. Central canal and neural foramen are suboptimally assessed by CT. IMPRESSION: 1. No acute lumbar spine fracture or subluxation. 2. Redemonstration of an L3 compression fracture with interval increase in concavity and loss of vertebral body height. No significant change in an old L2 compression fracture. 3. Severe multilevel facet arthrosis and moderate multilevel degenerative disc disease. Electronically signed by: Randy Melton M.D. 03/12/2018 1:[address] abd pelvis wo con CLINICAL HISTORY: 77 years-old Female presenting with Pt multiple falls. TECHNIQUE: Multidetector CT of the abdomen and pelvis was performed without the use of intravenous contrast. IV contrast: None. A dose lowering technique was used consistent with the principles of ALARA (as low as reasonably achievable). COMPARISON: 12/31/2017. CT DOSE (mGy.cm): The estimated cumulative dose is 1756.84 mGy.cm. 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 Prosthetic valve and median sternotomy wires. Cardiomegaly. Pleural drain position at the right lung base. Lung bases: Extensive interlobular septal thickening at the lung bases. Pulmonary arteries are enlarged relative to adjacent bronchi. Dependent linear and solid consolidation likely atelectasis. Persistent small right pleural effusion unchanged. The right pleural drain remains positioned in the right posterior costophrenic sulcus. Prosthetic mitral valve. Partially visualized single lead pacer to the right ventricular apex. Multichamber enlargement of the heart. Calcification of the left atrium snow suggested. No pericardial effusion. Liver: Enlarged. Normal density. Relative hypertrophy of the left hepatic lobe and atrophy of the right hepatic lobe. There is a subtle micronodular contour of the liver. These findings suggest cirrhosis. Biliary: No gross biliary ductal dilatation allowing for noncontrast technique. Gallbladder surgically absent. Pancreas: Mild parenchymal atrophy. Spleen: Normal noncontrast appearance. Top normal in size. Adrenal glands: Normal noncontrast appearance. Kidneys and ureters: Nonobstructing 3 mm calculus in the interpolar region of the right kidney. No hydronephrosis. Normal, noncontrast appearance of the kidneys. Ureters nondistended. Bladder: Normal noncontrast appearance. Pelvic organs: Uterus surgically absent. No adnexal masses. Bowel: Mild stool burden throughout normal caliber colon. The appendix is normal. No bowel obstruction. Peritoneal cavity: Trace abdominal pelvic ascites. No free intraperitoneal gas. Lymph nodes: No gross lymphadenopathy allowing for noncontrast technique. Vasculature: Atherosclerosis of the normal caliber abdominal aorta. The IVC is dilated suggesting hypervolemia. Abdominal wall: Diffuse body wall edema. Musculoskeletal: Osteopenia. Degenerative changes of the spine. Severe central predominant compression deformity of the superior endplate of L3 with a lesser degree of compression of the anterior aspect of the vertebral body. Slight retropulsion of the posterior-superior corner of the L3 vertebral body. This compression fracture is unchanged from the prior exam. Anterolisthesis of L4 on L5 noted, likely degenerative in etiology. IMPRESSION: 1. Allowing for noncontrast technique, no acute intra-abdominal injury. 2. Volume overload with anasarca, ascites, right pleural effusion, and congestive change in the lungs. 3. Cirrhosis and hepatomegaly. 4. Nonobstructing 3 mm right renal calculus. 5. Persistent small right pleural effusion with a right pleural drain in place. 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 6. Chronic compression fracture of L3. 7. Cardiomegaly. Electronically signed by: Adam Nagel M.D. 03/12/2018 1:22 PM ECG Data Attestation: I personally reviewed and interpreted this ECG as follows: Indication: other (fall) Rate (beats per minute): 79 Rhythm: normal sinus Findings: + other (wide QRS) and + RBBB; no ST depression and no ST elevation Blood Pressure Blood Pressure Findings: Low blood pressure Blood Pressure Disposition: further management by hospitalist [facility] Narrative This is a 77-year-old female who presents emergency department complaining of multiple falls at home along with anemia. Patient was given 2 units of packed red blood cells here in the emergency department. She has bruising present to her face. Due to the number of falls as well as the need for blood she was typed and screened and given 2 units packed red blood cells. I did discuss the case with the hospitalist service who agreed to admit the patient. Patient refused a rectal exam. Impression & Plan Fall, Anemia Discharge Plan Visit Data *Final* Discharge Date/Time: 03/12/18 18:14 Chief Complaint: Fall Stated Complaint: fall/ back & elbow pain ED Provider: Angel Olvera Discharge Problem: Fall, Anemia Patient Disposition: Admitted As Inpatient Discharge Instructions Interventions: ED Discharge Assessment Last Done: 03/12/18 18:14 The scribe's documentation has been prepared under my direction and personally reviewed by me in its entirety. I confirm that the note above accurately reflects all work, treatment, procedures, and medical decision making performed by me.
[2018-03-14] MEDS: EZETIMIBE 10 MG TABLET PO SCH (21:10)
[2018-03-14] MEDS: diazePAM 5 MG TABLET PO PRN (22:02)
[2018-03-15] MEDS: MoRPHine SULFATE 2 MG/ML CARP IV PRN ×2 (01:08→10:58)
[2018-03-15] MEDS: LEVOTHYROXINE SODIUM 175 MCG TABLET PO SCH (05:58)
[2018-03-15 06:52] LABS: Basophils # (auto) 0.02 K/uL (0-0.2); Basophils % (auto) 0.4 %; Eosinophils # (auto) 0.22 K/uL (0-0.5); Hematocrit (blood only) 24.6 % (37-47); Hemoglobin 7.6 g/dL (12.0-16.0); Immature Granulocytes # (auto) 0.01 K/uL (0.00-0.02); Immature Granulocytes % (auto) 0.2 %; Lymphocytes # (auto) 0.45 K/uL (1.2-3.4); Lymphocytes % (auto) 8.2 %; Mean Corpuscular Hgb Conc 30.9 g/dL (32-36); Mean Corpuscular Volume 89.5 fL (80-100); Mean Platelet Volume 9.4 fL (7.4-10.4); Monocytes # (auto) 1.13 K/uL (0.11-0.59); Monocytes % (auto) 20.5 %; Neutrophils # (auto) 3.67 K/uL (1.4-6.5); Neutrophils % (auto) 66.7 %; Platelet Count 222 K/uL (130-400); RDW Coefficient of Variation 16.5 % (11.5-14.5); RDW Standard Deviation 53.6 fL (36.4-46.3); Red Blood Count 2.75 M/uL (4.2-5.4)
[2018-03-15 07:03] LABS: INR 3.4 (0.9-1.1); Prothrombin Time 32.3 Seconds (9.0-12.0)
[2018-03-15 07:13] LABS: Hypochromasia Present; Polychromasia 1+
[2018-03-15 07:26] LABS: Albumin Level 2.5 gm/dl (3.4-5.0); BUN Creatinine Ratio 41.3 (10-20); Calcium 8.2 mg/dl (8.5-10.1); Creatinine Clr Calc Pharmacy 16.4 ml/min; Est GFR (African American) 18.5; Potassium 4.2 mmol/L (3.5-5.1)
[2018-03-15 07:28] LABS: Albumin Globulin Ratio 0.6 (0.9-2); Bilirubin,Total 0.3 mg/dl (0.1-1); Globulin 4.3 gm/dl (2.5-4.0); Total Protein 6.8 gm/dl (6.4-8.2)
--- NOTE | 2018-03-15 09:09 | Family Medicine Progress Note ---
Date of Service March 15, 2018 Assessment & Plan (1) Fall: Pt is a 77 year old female with a pmhx significant for chronic anemia requiring transfusions (baseline hgb 7-8), cirrhosis, lumbar stress fracture x2 , hypothyroidism, CHF, CKD stage 4, pulm HTN, mechanical heart valve, stroke x3 , COPD, Pleural effusion, and recurrent pleural effusions with pleur-x catheter in place. She presented to the [facility] ED on 03/12 2 days s/p fall for evaluation of arm pain R>L. #Fall (active) Occured 2 days ago, no loc, pt does endorse recent hx of decreasing strength. Numerous bruises and significant laceration to her face. also endorsing b/l arm pain. CT in the ED showed volume overload 2/2 cirrhosis, 3mm non obstructing renal calculus, persistant right pleural effusion, chronic compression fx of L3. Head Ct was negative, Face ct age indeterminate nasal fx. -On inpt -Analgesia tylenol for pain <5 for pain >5 morphine 2mg, Voltaren changed to scheduled TID, added Tramadol 50mg PRN and can use this in place of morphine after discussion with patient -Monitor for si/sx of compartment syndrome -PT/OT evaluation #Right Arm Pain (active) Pt is barely able to raise arm against gravity s/p fall upon admission, now able to move arm. Suspect pt likely injured a nerve and nerve is now stunned. Pt had negative CT in the ED, would consider MRI but pt is unable 2/2 to mechanical valve and pace maker. On exam it appeared as if pt musculature was functioning correctly. Elbow fracture negative -Analgesia as above -Ortho Cx and had impression of Resolving neuropraxia right upper extremity, with plan for observation only, supportive care and no need for office follow- up. -PT/OT #Anemia (active) Pt is chronically anemic with baseline hgb 7-8, source of anemia is unknown thought per pt thought to be a small bleeding vessel. She is currently s/p 2 units of pRBC last Friday. On admission HGB was 6.0, pt denies si/sx of anemia however this could have contributed to her fall -S/p Transfusion 2 units pRBC -Daily CBC, transfuse for HGB<6.5 -f/u iron studies -continue chronic regimen B12, B6 - 7.6 today 03/15, asymptomatic #CHF (active) Patient does not seem to be in acute decompensated CHF. She states her weight is stable. Concern for LE edema -Continue Home Bumex 4mg po bid and metalazone 5 mg po 3xwk -Continue Metoprolol 100mg po daily -Continue Hydralazine 25mg po BID -Continue Digoxin 125 mcg daily #Hypokalemia (resolved) Chronic, treated in the past, 3.3 on admission 4.2 now -20 meq KCL TID -Trend Daily CMP #DMII (active) Last HBA1c 03/13 5.1 -Lantus 8units BID -SSI -BSG checks AC/HS -sugars reasonable continue to monitor #Stress Fracture Ct shows stress fracture still present at L3, L2 resolving, and chronic degenerative changes -analgesia, adequate calcium intake -pt/ot evaluation -states improved with Lidocaine patch and Voltaren Gel, OMT provided at bedside this morning #History of mitral valve replacement with mechanical valve (active) Stable, INR at 3.4 today -continue home Coumadin -Trend INR daily -Goal 2.5-3.5 in patient with mechanical valve #COPD Stable sating 97% on room air has pleurex for chronic effusion - Duonebs qid PRN - Begin Spirva #Pleural effusion, right (active) Ct showed congestive changes in her lungs and PleurX catheter in place -Monitor output -Wound/ostomy nursing consult for management #Cirrhosis (active) Patient with mild ascites on exam, clinically volume overloaded, ct scan showed anasarca, ascites. Liver function test WNL -Continue home diuretic regimen as above -Monitor K -Low Na diet as tolerated #AFIB (active) Rate controlled on AC #CAD (active) -Continue Zetia -continue gemfibrozil #CKD (active) Baseline CR is 2.5, 2.9 2/2 to poor perfusion from anemia on admission has followed with Dr. Dr. Wong in the past -Trend daily BMP -Continue Diuretic regimen as tolerated -today 2.78 #HTN (active) Stable -continue home regimen hydralazine, metoprolol #Hypothyroidism (active) Last tsh 2.12 -continue 175mcg levothyroxine qam #GERD (active) -continue ranitidine 150mg BID -Continue Pantoprazole 40mg #Overactive Bladder (active) -continue Trospium #Seasonal Allergies (active) -continue Vickie and montelukast #Insomnia(active) Diazapam #Back Pain Hydrocortisone, lidocaine patch, Voltaran FENA: DMII and Heart Healthy Diet DVTPPX: On Warfarin Code: DNR DISPO: Home cx'd care coodinator Supervising Physician Co-Signing Physician Notes I personally examined the patient and verified all bruce points of history and exam, discussed case, and agree with decision making with Dr Ward. Her back is hurting her today, it is in her low back in her usual area that it hurts. She notes nothing new or different about it. She also noted that she is not have her caregivers at home today. She is still adamantly opposed to SNF or any other type of placement other than home, I tried discussing the fact that her is now at [facility] as a possible reason for her to rehab there to be with him, but instead she noted that she is going to "get him out of there as soon as possible" Vitals noted, in general she is in no acute distress. HEENT her mucous membranes are moist, her lip laceration/abrasion appears to be healing well, her facial bruising is healing well. Lungs are unlabored no accessory muscles good effort. Neuromuscularshe is moving her right arm well and shows no other focal neuro deficits. Muscular/osteopathic structuralright greater than left L -spine paraspinals high tone, tender, decreased range of motioninhibitory pressure and direct myofascial done with improvement in tissue texture and patient's pain. Patient tolerated well fall - mechanical, while I would still feel safer with her going somewhere to do rehab, she is adamantly opposed to this. She is planning on going home, but noted that her caregivers are not able to be there until tomorrow. Given that it would be far better for her to go to SNF for rehab, we will keep her in the hospital until she is at least able to have her full complement of people to help her at home. It may also give her more time to reconsider SNF, although I doubt she is going to change her mind on this. At least yesterday she did appear more stable on her feet than expected, which makes going home concerning , but not entirely reckless on her part. facial lac/abrasion - healing well, supportive care Back paincontinue her home care regimen, OMT done as above, Voltaren gel to the area as well. Somatic dysfunction L-spine regionOMT as above, patient tolerated well arm pain -appreciate orthopedics inputneurapraxia, and this appears to be resolving fairly quickly. acute on chronic anemia - suspect acuity from blood loss from facial lac since she noted a large amount of blood. transfused, follow periodically. Transfuse as needed. ?dispo home vs needing rehab -it appears she would do better with rehab, but right now she only wants to go home. See above otherwise and continue to reassess. Continue PT and OT for now. otherwise as above Subjective Crystal states that she had a poor overnight because of her chronic back pain related to her lumbar compression fractures. She denies any chest pain, shortness of breath, nausea, vomiting, diarrhea, fever, chills, abdominal pain. Yesterday she was requesting to go home and was hoping she would be cleared for discharged. However, today she is requesting another day here in the hospital. She was able to ambulate the halls yesterday with her walker. She is also complaining of her bottom lip hematoma and has been using vasoline. She states she would like to try Tramadol for pain in lieu of Morphine. Physical Exam 2 Vital Signs (Past 24 Hours): Last Vital Signs Temp 36.6 C 03/15/18 07:29 Pulse 76 03/15/18 07:29 Resp 18 03/15/18 07:29 BP 120/47 L 03/15/18 07:29 Pulse Ox 94 03/15/18 07:29 Constitutional: + thin and cooperative Eyes: + anicteric sclerae and EOM intact bilaterally Neck: normal visual inspection and trachea midline Respiratory: normal respiratory effort, lungs clear to auscultation Cardiovascular: Rate/Rhythm: regular rate and regular rhythm Gastrointestinal (Abdomen): Inspection/Auscultation: normal bowel sounds Percussion/Palpation: abdomen nontender Musculoskeletal: Head/Neck/Chest: normocephalic Skin: + dry skin and + ecchymosis Neurologic: moves all extremities and awake Psychiatric: A+Ox3, euthymic affect Orientation: cooperative Eye Contact : good eye contact Results & Data Laboratory Results Laboratory Results - last 24 hr 03/14/18 03/14/18 03/14/18 10:30 11:34 16:44 WBC RBC Hgb Hct MCV MCH MCHC RDW Std Deviation RDW Coeff of Marco Plt Count MPV Immature Gran % (Auto) Neut % (Auto) Lymph % (Auto) Dickinson % (Auto) Eos % (Auto) Baso % (Auto) Immature Gran # (Auto) Neut # (Auto) Lymph # (Auto) Dickinson # (Auto) Eos # (Auto) Baso # (Auto) Polychromasia Hypochromasia PT INR Sodium Potassium Chloride Carbon Dioxide Anion Gap BUN Creatinine Est Cr Clr Drug Dosing Est GFR ( Amer) Est GFR (Non-Af Amer) BUN/Creatinine Ratio Glucose POC Glucose 185 H 180 H Calcium Total Bilirubin AST ALT Alkaline Phosphatase Total Protein Albumin Globulin Albumin/Globulin Ratio Stool Occult Bld Scrn Positive H 03/14/18 03/15/18 03/15/18 20:02 06:08 06:08 WBC 5.50 RBC 2.75 L Hgb 7.6 L Hct 24.6 L MCV 89.5 MCH 27.6 MCHC 30.9 L RDW Std Deviation 53.6 H RDW Coeff of Marco 16.5 H Plt Count 222 MPV 9.4 Immature Gran % (Auto) 0.2 Neut % (Auto) 66.7 Lymph % (Auto) 8.2 Dickinson % (Auto) 20.5 Eos % (Auto) 4.0 Baso % (Auto) 0.4 Immature Gran # (Auto) 0.01 Neut # (Auto) 3.67 Lymph # (Auto) 0.45 L Dickinson # (Auto) 1.13 H Eos # (Auto) 0.22 Baso # (Auto) 0.02 Polychromasia 1+ Hypochromasia Present PT 32.3 H INR 3.4 H Sodium Potassium Chloride Carbon Dioxide Anion Gap BUN Creatinine Est Cr Clr Drug Dosing Est GFR ( Amer) Est GFR (Non-Af Amer) BUN/Creatinine Ratio Glucose POC Glucose 123 H Calcium Total Bilirubin AST ALT Alkaline Phosphatase Total Protein Albumin Globulin Albumin/Globulin Ratio Stool Occult Bld Scrn 03/15/18 03/15/18 06:08 07:36 WBC RBC Hgb Hct MCV MCH MCHC RDW Std Deviation RDW Coeff of Marco Plt Count MPV Immature Gran % (Auto) Neut % (Auto) Lymph % (Auto) Dickinson % (Auto) Eos % (Auto) Baso % (Auto) Immature Gran # (Auto) Neut # (Auto) Lymph # (Auto) Dickinson # (Auto) Eos # (Auto) Baso # (Auto) Polychromasia Hypochromasia PT INR Sodium 133 L Potassium 4.2 Chloride 98 Carbon Dioxide 24 Anion Gap 11.0 BUN 115 H Creatinine 2.78 H Est Cr Clr Drug Dosing 16.4 Est GFR ( Amer) 18.5 Est GFR (Non-Af Amer) 16.0 BUN/Creatinine Ratio 41.3 H Glucose 100 H POC Glucose 115 H Calcium 8.2 L Total Bilirubin 0.3 AST 36 ALT 27 Alkaline Phosphatase 119 H Total Protein 6.8 Albumin 2.5 L Globulin 4.3 H Albumin/Globulin Ratio 0.6 L Stool Occult Bld Scrn Medications Administered Acetaminophen (Tylenol) 650 mg PO Q4H PRN PRN Reason: pain/fever Stop: 04/11/18 16:55 Last Admin: 03/13/18 10:16 Dose: 650 mg Bumetanide (Bumex) 4 mg PO BID17 [facility] Stop: 04/12/18 08:59 Last Admin: 03/14/18 16:24 Dose: 4 mg Admin: 03/14/18 08:45 Dose: 4 mg Admin: 03/13/18 16:29 Dose: 4 mg Admin: 03/13/18 08:02 Dose: 4 mg Cyanocobalamin (Vitamin B-12) 1,000 mcg PO DAILY [facility] Stop: 04/12/18 08:59 Last Admin: 03/14/18 08:51 Dose: 1,000 mcg Admin: 03/13/18 08:05 Dose: 1,000 mcg Diazepam (Valium) 5 mg PO BID PRN PRN Reason: Anxiety Stop: 04/11/18 17:10 Last Admin: 03/14/18 22:02 Dose: 5 mg Admin: 03/13/18 22:12 Dose: 5 mg Diclofenac Sodium (Voltaren 1% Top) 1 appln EXT QID PRN PRN Reason: Pain Stop: 04/11/18 17:10 Last Admin: 03/15/18 00:16 Dose: 1 appln Digoxin (Lanoxin) 0.125 mg PO DAILY@1600 [facility] Stop: 04/11/18 19:59 Last Admin: 03/14/18 16:23 Dose: 0.125 mg Admin: 03/13/18 15:44 Dose: 0.125 mg Admin: 03/12/18 21:14 Dose: 0.125 mg Ezetimibe (Zetia) 10 mg PO HS [facility] Stop: 04/11/18 20:59 Last Admin: 03/14/18 21:10 Dose: 10 mg Admin: 03/13/18 21:08 Dose: 10 mg Admin: 03/12/18 21:11 Dose: 10 mg Fexofenadine HCl (Vickie) 180 mg PO DAILY [facility] Stop: 04/12/18 08:59 Last Admin: 03/14/18 08:44 Dose: 180 mg Admin: 03/13/18 08:02 Dose: 180 mg Gemfibrozil (Lopid) 600 mg PO BID17 [facility] Stop: 04/12/18 08:59 Last Admin: 03/14/18 17:34 Dose: 600 mg Admin: 03/14/18 08:45 Dose: 600 mg Admin: 03/13/18 17:46 Dose: 600 mg Admin: 03/13/18 08:03 Dose: 600 mg Hydralazine HCl (Apresoline) 25 mg PO BID [facility] Stop: 04/11/18 20:59 Last Admin: 03/14/18 21:05 Dose: 25 mg Admin: 03/14/18 08:50 Dose: 25 mg Admin: 03/13/18 21:07 Dose: 25 mg Admin: 03/13/18 08:02 Dose: 25 mg Admin: 03/12/18 21:11 Dose: 25 mg Hydrocortisone (Hydrocortisone 1%) 1 appln EXT QID [facility] Stop: 04/11/18 20:59 Last Admin: 03/14/18 21:05 Dose: 1 appln Admin: 03/14/18 16:24 Dose: 1 appln Admin: 03/14/18 12:47 Dose: 1 appln Admin: 03/14/18 08:53 Dose: 1 appln Admin: 03/13/18 21:07 Dose: 1 appln Admin: 03/13/18 17:45 Dose: 1 appln Admin: 03/13/18 12:42 Dose: 1 appln Admin: 03/13/18 08:03 Dose: 1 appln Admin: 03/12/18 21:11 Dose: 1 appln Insulin Aspart (Novolog Flexpen) 0 units SC [facility]; Protocol Stop: 04/11/18 20:59 Last Admin: 03/14/18 21:04 Dose: Not Given Admin: 03/14/18 17:35 Dose: 9 units Admin: 03/14/18 12:49 Dose: 7 units Admin: 03/14/18 08:48 Dose: 5 units Admin: 03/13/18 21:04 Dose: 1 units Admin: 03/13/18 17:42 Dose: 7 units Admin: 03/13/18 12:39 Dose: 8 units Admin: 03/13/18 08:06 Dose: 7 units Admin: 03/12/18 21:12 Dose: 6 units Insulin Glargine (Lantus Solostar Pen) 0 units SC BID [facility]; Protocol Stop: 04/12/18 09:29 Last Admin: 03/14/18 21:02 Dose: 8 units Admin: 03/14/18 08:46 Dose: 8 units Admin: 03/13/18 21:04 Dose: 8 units Admin: 03/13/18 10:41 Dose: 8 units Levothyroxine Sodium (Synthroid) 175 mcg PO DAILYBB [facility] Stop: 04/12/18 06:29 Last Admin: 03/15/18 05:58 Dose: 175 mcg Admin: 03/14/18 05:16 Dose: 175 mcg Admin: 03/13/18 06:21 Dose: 175 mcg Lidocaine (Lidoderm 5%) 1 patch TD QAM [facility] Stop: 04/12/18 08:59 Last Admin: 03/14/18 08:55 Dose: 1 patch Admin: 03/13/18 08:03 Dose: 1 patch Metoprolol Succinate (Toprol Xl) 100 mg PO DAILY [facility] Stop: 04/12/18 08:59 Last Admin: 03/14/18 08:50 Dose: 100 mg Admin: 03/13/18 08:04 Dose: 100 mg Miscellaneous (Order Awaiting Action) 1 ea N/A QS [facility] Stop: 04/12/18 00:00 Last Admin: 03/14/18 23:35 Dose: Not Given Admin: 03/14/18 16:24 Dose: Not Given Admin: 03/14/18 08:50 Dose: Not Given Admin: 03/13/18 23:46 Dose: Not Given Admin: 03/13/18 17:39 Dose: Not Given Admin: 03/13/18 08:09 Dose: Not Given Admin: 03/13/18 00:25 Dose: Not Given Miscellaneous (Remove Lidoderm Patch) 1 ea N/A DAILY@2100 [facility] Stop: 04/12/18 20:59 Last Admin: 03/14/18 21:13 Dose: 1 ea Admin: 03/13/18 21:08 Dose: 1 ea Montelukast Sodium (Singulair) 10 mg PO DAILY [facility] Stop: 04/12/18 08:59 Last Admin: 03/14/18 08:51 Dose: 10 mg Admin: 03/13/18 08:05 Dose: 10 mg Morphine Sulfate (Morphine Sulfate) 2 mg IV Q4H PRN PRN Reason: Pain Stop: 03/26/18 18:52 Last Admin: 03/15/18 01:08 Dose: 2 mg Admin: 03/13/18 17:49 Dose: 2 mg Admin: 03/12/18 23:31 Dose: 2 mg Pantoprazole Sodium (Protonix) 40 mg PO QAM N[facility] Stop: 04/12/18 08:59 Last Admin: 03/14/18 08:50 Dose: 40 mg Admin: 03/13/18 08:04 Dose: 40 mg Potassium Chloride (Klor-Con M20) 20 meq PO TID [facility] Stop: 04/11/18 20:59 Last Admin: 03/14/18 21:03 Dose: 20 meq Admin: 03/14/18 15:23 Dose: 20 meq Admin: 03/14/18 08:52 Dose: 20 meq Admin: 03/13/18 21:06 Dose: 20 meq Admin: 03/13/18 13:50 Dose: Not Given Admin: 03/13/18 08:06 Dose: Not Given Admin: 03/12/18 21:11 Dose: 20 meq Pyridoxine HCl (Vitamin B-6) 100 mg PO DAILY [facility] Stop: 04/12/18 08:59 Last Admin: 03/14/18 08:51 Dose: 100 mg Admin: 03/13/18 08:05 Dose: 100 mg Ranitidine HCl (Zantac) 150 mg PO BID N[facility] Stop: 04/11/18 20:59 Last Admin: 03/14/18 21:11 Dose: 150 mg Admin: 03/14/18 08:50 Dose: 150 mg Admin: 03/13/18 21:10 Dose: 150 mg Admin: 03/13/18 08:05 Dose: 150 mg Admin: 03/12/18 21:11 Dose: 150 mg Saccharomyces Boulardii (Florastor) 250 mg PO DAILY [facility] Stop: 04/12/18 08:59 Last Admin: 03/14/18 08:52 Dose: 250 mg Admin: 03/13/18 08:02 Dose: 250 mg Tiotropium [place] (Spiriva) 1 puffs INH QAM [facility] Stop: 04/12/18 08:59 Last Admin: 03/14/18 08:53 Dose: 1 puffs Admin: 03/13/18 08:05 Dose: 1 puffs Vitamin D (Vitamin D3) 1,000 units PO TID [facility] Stop: 04/11/18 20:59 Last Admin: 03/14/18 21:08 Dose: 1,000 units Admin: 03/14/18 15:24 Dose: 1,000 units Admin: 03/14/18 08:44 Dose: 1,000 units Admin: 03/13/18 21:10 Dose: 1,000 units Admin: 03/13/18 13:50 Dose: 1,000 units Admin: 03/13/18 08:05 Dose: 1,000 units Admin: 03/12/18 21:10 Dose: 1,000 units Warfarin Sodium (Coumadin) 4 mg PO MoWeFr@1600 [facility] Stop: 04/12/18 15:59 Last Admin: 03/13/18 15:44 Dose: 4 mg Warfarin Sodium (Coumadin) 3 mg PO SuTuThSa@1600 [facility] Stop: 04/11/18 19:59 Last Admin: 03/14/18 16:23 Dose: 3 mg Admin: 03/12/18 21:11 Dose: 3 mg _ (1) Fall Encounter type: initial encounter Qualified Code(s): W19.XXXA - Unspecified fall, initial encounter
[2018-03-15] MEDS: FEXOFENADINE HCL 180 MG TAB PO SCH (09:38)
[2018-03-15] MEDS: HYDROCORTISONE 1% CRM 30 GM TUBE EXT SCH ×4 (09:38→20:33)
[2018-03-15] MEDS: CYANOCOBALAMIN 500 MCG TABLET (VITAMIN B-12) PO SCH (09:38)
[2018-03-15] MEDS: SACCHAROMYCES BOULARDII 250 MG CAP PO SCH (09:39)
[2018-03-15] MEDS: METOPROLOL SUCC 50MG EXT REL TAB PO SCH (09:39)
[2018-03-15] MEDS: MONTELUKAST SODIUM 10 MG TABLET PO SCH (09:39)
[2018-03-15] MEDS: CHOLECALCIFEROL 1,000 UNITS TAB PO SCH ×3 (09:39→20:26)
[2018-03-15] MEDS: PANTOprazole 40 MG TAB PO SCH (09:39)
[2018-03-15] MEDS: POTASSIUM CHLORIDE 20 MEQ TABCR PO SCH ×3 (09:40→20:27)
[2018-03-15] MEDS: BUMETANIDE 1 MG TAB PO SCH ×2 (09:41→16:35)
[2018-03-15] MEDS: GEMFIBROZIL 600 MG TAB PO SCH ×2 (09:42→16:35)
[2018-03-15] MEDS: TIOTROPIUM BROMIDE 5 PUFF/90 MCG INH INH SCH (09:43)
[2018-03-15] MEDS: INSULIN GLARGINE SOLOSTAR 100 UNITS/ML 3 ML PEN SC SCH ×2 (09:46→20:28)
[2018-03-15] MEDS: INSULIN ASPART 100 UNITS/ML 3 ML PEN SC SCH ×4 (09:47→20:32)
[2018-03-15] MEDS: LIDOCAINE 5% 1 PATCH TD SCH (09:49)
[2018-03-15] MEDS: PYRIDOXINE HCL 50 MG TAB PO SCH (09:49)
[2018-03-15] MEDS ORDERED: TRAMADOL HCL 50 MG TABLET PO PRN (10:46)
--- NOTE | 2018-03-15 11:44 | Pharmacy Report ---
Glycemic Control Progress Note - Date of Service March 15, 2018 - Scope Glycemic Pharmacist consulted for glycemic control to write orders per [facility] inpatient glycemic control protocol. - Objective Accuchecks BSG(last 24 hours):: 03/14/18 03/14/18 03/15/18 16:44 20:02 06:08 Glucose 100 H POC Glucose 180 H 123 H 03/15/18 07:36 Glucose POC Glucose 115 H HbA1c:: Hemoglobin A1c 5.1 % (4.5-5.6) 03/13/18 06:33 - Recent Pertinent Medications The patient is currently receiving: * Basal insulin: Lantus 8 units every 12 hours (14 units if blood sugar over 180 mg/dL) * Correctional Insulin: Novolog Correction per scale ACHS Goal Range: Low 110 mg/dL - High 140 mg/dL Correction Factor: 30 mg/dL/unit * Prandial insulin: Per carb ratio of 1 unit per 10 grams CHO consumed - Outpatient Anti-Diabetic Meds Lantus 20-60 units BID plus Novolog - Assessment & Plan ASSESSMENT: * See progress note from 03/13/18 for more background info, in short: * Pt receiving SQ basal bolus insulin regimen for hyperglycemia secondary to baseline DM (outpatient regimen on hold),stress (recent fall), and type 2 diabetic diet. * Patient is currently receiving an average of 37 units of insulin per day * 16 units of basal insulin * 21 units of prandial/correctional insulin * BSGs ranging 122 - 185 mg/dl over the past 24hrs * Changes needed to insulin regimen: * AM Fasting BSG = 115 mg/dl. This is in goal range for patient based on inpatient targets and co-morbidities. Therefore Basal insulin will be continued. Will remove option for 14 units since it appears that basal rate of 16 units is appropriate for patient. * Post-prandial BSGs are elevated for lunch and dinner suggesting a tighter CF/ CR is required. Tightened at breakfast will monitor for lunch. * Total daily dose = ~40 units. PLAN FOR INPATIENT GLYCEMIC CONTROL: * Continuing Lantus 8 units SQ BID * Continuing correction factor of 30 mg/dl/unit * Tightening carb ratio to 1 unit per 9 grams CHO consumed * Continuing goal range to Low 110 mg/dL - High 140 mg/dL RECOMMENDATIONS FOR DISCHARGE: * Patient's HbA1C affected by her anemia. Recommend patient work with provider to establish appropriate dosing based upon blood sugar results. Patient does have a wide range of insulin uses. If need specific value would discharge on 10- 15 units twice daily. * Please note that the plan above was derived based on current level of insulin resistance and hospital stress. These recommendations are appropriate for inpatient admission only. Plan of care upon discharge will need to be reassessed to avoid potential outpatient hypo/hyperglycemia. Thank you.
[2018-03-15] MEDS: DICLOFENAC SOD 1% GEL 100 GM TUBE EXT SCH ×2 (13:09→20:32)
[2018-03-15] MEDS: DIGOXIN 0.125 MG TAB PO SCH (16:36)
[2018-03-15] MEDS: WARFARIN SOD 3 MG TAB PO SCH (16:46)
[2018-03-15] MEDS: EZETIMIBE 10 MG TABLET PO SCH (20:26)
[2018-03-15] MEDS: diazePAM 5 MG TABLET PO PRN (22:48)
[2018-03-16] MEDS: MoRPHine SULFATE 2 MG/ML CARP IV PRN (02:02)
[2018-03-16] MEDS: LEVOTHYROXINE SODIUM 175 MCG TABLET PO SCH (05:51)
[2018-03-16 07:17] LABS: Basophils # (auto) 0.02 K/uL (0-0.2); Basophils % (auto) 0.4 %; Eosinophils # (auto) 0.19 K/uL (0-0.5); Eosinophils % (auto) 4.1 %; Hematocrit (blood only) 24.8 % (37-47); Hemoglobin 7.7 g/dL (12.0-16.0); Immature Granulocytes # (auto) 0.01 K/uL (0.00-0.02); Immature Granulocytes % (auto) 0.2 %; Lymphocytes # (auto) 0.81 K/uL (1.2-3.4); Lymphocytes % (auto) 17.5 %; Mean Corpuscular Volume 89.9 fL (80-100); Mean Platelet Volume 8.8 fL (7.4-10.4); Monocytes # (auto) 0.51 K/uL (0.11-0.59); Neutrophils # (auto) 3.08 K/uL (1.4-6.5); Neutrophils % (auto) 66.8 %; Platelet Count 194 K/uL (130-400); RDW Coefficient of Variation 16.4 % (11.5-14.5); RDW Standard Deviation 53.7 fL (36.4-46.3); Red Blood Count 2.76 M/uL (4.2-5.4); White Blood Count 4.62 K/uL (4.8-10.8)
[2018-03-16 07:31] LABS: INR 3.8 (0.9-1.1); Prothrombin Time 35.2 Seconds (9.0-12.0)
[2018-03-16 07:42] LABS: Hypochromasia Present; Polychromasia 1+
[2018-03-16 07:50] LABS: Albumin Level 2.6 gm/dl (3.4-5.0); BUN Creatinine Ratio 39.3 (10-20); Calcium 8.2 mg/dl (8.5-10.1); Creatinine Clr Calc Pharmacy 17.5 ml/min; Est GFR (Non-African American) 17.3; Potassium 4.1 mmol/L (3.5-5.1)
[2018-03-16 07:53] LABS: Albumin Globulin Ratio 0.6 (0.9-2); Bilirubin,Total 0.4 mg/dl (0.2-1); Globulin 4.4 gm/dl (2.5-4.0)
[2018-03-16] MEDS: DICLOFENAC SOD 1% GEL 100 GM TUBE EXT SCH ×2 (10:08→13:14)
[2018-03-16] MEDS: CHOLECALCIFEROL 1,000 UNITS TAB PO SCH ×2 (10:09→13:15)
[2018-03-16] MEDS: POTASSIUM CHLORIDE 20 MEQ TABCR PO SCH ×2 (10:09→13:15)
[2018-03-16] MEDS: FEXOFENADINE HCL 180 MG TAB PO SCH (10:09)
[2018-03-16] MEDS: HYDROCORTISONE 1% CRM 30 GM TUBE EXT SCH ×2 (10:09→12:04)
[2018-03-16] MEDS: PANTOprazole 40 MG TAB PO SCH (10:10)
[2018-03-16] MEDS: GEMFIBROZIL 600 MG TAB PO SCH (10:10)
[2018-03-16] MEDS: SACCHAROMYCES BOULARDII 250 MG CAP PO SCH (10:11)
[2018-03-16] MEDS: BUMETANIDE 1 MG TAB PO SCH (10:11)
[2018-03-16] MEDS: METOPROLOL SUCC 50MG EXT REL TAB PO SCH (10:11)
[2018-03-16] MEDS: LIDOCAINE 5% 1 PATCH TD SCH (10:12)
[2018-03-16] MEDS: MONTELUKAST SODIUM 10 MG TABLET PO SCH (10:12)
[2018-03-16] MEDS: TIOTROPIUM BROMIDE 5 PUFF/90 MCG INH INH SCH (10:13)
[2018-03-16] MEDS: CYANOCOBALAMIN 500 MCG TABLET (VITAMIN B-12) PO SCH (10:15)
[2018-03-16] MEDS: PYRIDOXINE HCL 50 MG TAB PO SCH (10:17)
[2018-03-16] MEDS: INSULIN ASPART 100 UNITS/ML 3 ML PEN SC SCH ×2 (10:21→12:04)
[2018-03-16] MEDS: INSULIN GLARGINE SOLOSTAR 100 UNITS/ML 3 ML PEN SC SCH (10:22)
--- NOTE | 2018-03-16 14:46 | Discharge Summary ---
Date of Service March 16, 2018 Admission HPI Per Admitting Provider Pt is a 77 year old female with a pmhx significant for chronic anemia requiring transfusions (baseline hgb 7-8), cirrhosis, lumbar stress fracture x2, hypothyroidism, CHF, CKD stage 4, pulm HTN, mechanical heart valve, stroke x3, COPD, and recurrent pleural effusions with pleur-x catheter in place. She presented to the [facility] ED on 03/12 2 days s/p fall for evaluation of arm pain R> L. Briefly over the past few months the patient has noticed her strength has been decreasing. On she went outside to feed the birds while returning to her house she tripped on the steps up to her porch and fell using her hands to brace herself. Pt reports her neighbor was home at the time and helped her back into the house. Pt did not note any ripping or tearing noise when she feel, nor did she loose consciousness before, during, or after the episode. She states the whole thing happened so fast she did not know what happened. During the fall she hit her face which at the time bleed profusely however currently is asyx aside from bruising. The day after her fall she contacted her pcp who recommended that she put vasoline on her lips. The following day her arm pain continued to increase and her home health nurse evaluated her saying she needed to be seen by a doctor, she contacted her family doctor who recommended she be evaluated in the ED. Currently pt's cc is arm pain R>L, she is no longer bleeding, and vital signs are stable. Pt does not recall any recent hx of Sore throat, cough, congestion, head ache, fevers, chills, chest pain, sob, N/V/D, constipation, abdominal pain , change in color or consistency of her stool or urine or other acute si/sx of infectious process. PMHX: As below Meds:As below Allergies: As Below PSHX: Pacemaker, Hysterectomy, Mechanical Heart Valve, Cholecystectomy, Carpel Tunnel Release FH: non contributory SH: Pt lives at home with her who has significant dementia ( she is primary personal care assistant). Pt has home health aid M,,,every other Friday and can call home instead for assistance with her . Remote drinking hx, no smoking, no drugs ROS: as above Admission Exam Per Admitting Provider Temp 37.0 C 03/12/18 11:29 Pulse 84 03/12/18 15:24 Resp 16 03/12/18 15:24 BP 115/58 L 03/12/18 15:24 Pulse Ox 97 03/12/18 15:24 Constitutional: + ill appearing, + thin, + frail appearing and cooperative Eyes: normal visual murray by confrontation Neck: trachea midline, no thyromegaly Thyroid: normal thyroid Respiratory: normal respiratory effort, lungs clear to auscultation Auscultation: lungs clear to auscultation bilaterally Cardiovascular: Rate/Rhythm: regular rate and regular rhythm Vessels: no JVD Extremities: no calf tenderness Mechanical heart valve noises Gastrointestinal (Abdomen): normal bowel sounds, soft, nontender, no hepatosplenomegaly Musculoskeletal: Head: Numerous bruises, pt reports nose okay, laceration on lip and bruising, ROM intact Arms: Left: strength 2-3/5 pt reports pain in forearm, elbow, bicep some bruising, did not appreciate significant swelling on exam, visually muscles appear to function and no si of rupture Right: Strength 4-5/5, pt reports pain in her elbow, bruising present, did not appreciate significant swelling on exam visually muscles appear to function and no si of rupture Legs: Bruising and some pain 2+ pedeal edema above the knee Skin: + dry skin and + ecchymosis Psychiatric: A+Ox3, euthymic affect Orientation: cooperative Apperance: appropriately dressed and appropriately groomed Eye Contact: good eye contact Speech: normal rate/rhythm/volume of speech (Speech is slow ) Thought Process: linear/logical thought process and + tangential thought process Estimated Intelligence: average estimated intelligence Insight: + fair insight Judgement : + fair judgement Principal Diagnosis Fall, mechanical Discharge Exam Constitutional well developed, well nourished and + frail appearing; no acute distress and not ill appearing Respiratory normal respiratory effort; no respiratory distress, no labored breathing and does not use accessory muscles Pleural catheter in place Cardiovascular Rate/Rhythm: regular rate and regular rhythm Heart Sounds: + click and + murmur (2/2 prosthetic mechanical heart valve) Gastrointestinal (Abdomen) normal bowel sounds, soft, nontender, no hepatosplenomegaly Discharge Data Allergies Allergy/AdvReac Type Severity Reaction Status Date / Time Penicillins Allergy Severe anaphylaxis Verified 03/12/18 12:01 30yrs ago, also broke out with sores diltiazem Allergy Unknown unknown Verified 03/12/18 12:01 levofloxacin Allergy Unknown UNKNOWN Verified 03/12/18 12:01 moxifloxacin Allergy Unknown UNKNOWN Verified 03/12/18 12:01 aspirin AdvReac Intermediate increased Verified 03/12/18 12:01 bleeding (on warfarin) doxycycline AdvReac Intermediate GI SYMPTOMS Verified 03/12/18 12:01 atorvastatin AdvReac Unknown & Crestor Verified 03/12/18 12:01 = muscle aches/pains Bactrim AdvReac Unknown CONFUSION Verified 11/10/17 17:54 nortriptyline AdvReac Unknown choking on Verified 03/12/18 12:01 food NSAIDS (Non-Steroidal AdvReac Unknown AVOID PER Verified 03/12/18 12:01 Anti-Inflamma DR. HICKS - [id number] quinidine AdvReac Unknown flu-like Verified 03/12/18 12:01 symptoms sulfamethoxazole AdvReac Unknown CONFUSION Verified 03/12/18 12:01 trimethoprim AdvReac Unknown CONFUSION Verified 03/12/18 12:01 clonidine AdvReac Unknown Verified 03/12/18 12:01 hydrocodone AdvReac Unknown Verified 03/12/18 12:01 Consultations 03/12/18 12:21 ED Decision to Admit Stat 03/12/18 16:59 Consult Case Management - Discharge Planning Routine 03/13/18 13:02 Consult Orthopedic Surgery Routine Ordered Studies 03/12/18 11:02 CT cervical spine wo con Stat CT facial bones wo con Stat CT head/brain wo con Stat CT lumbar spine wo con Stat CT thoracic spine wo con Stat 03/12/18 12:22 CT abd pelvis wo con Stat Hospital Course (1) Fall: Pt is a 77 year old female with a pmhx significant for chronic anemia requiring transfusions (baseline hgb 7-8), cirrhosis, lumbar stress fracture x2 , hypothyroidism, CHF, CKD stage 4, pulm HTN, mechanical heart valve, stroke x3 , COPD, Pleural effusion, and recurrent pleural effusions with pleur-x catheter in place. She presented to the [facility] ED on 03/12 2 days s/p fall for evaluation of arm pain R>L. 1) Fall Occurred 03/12/18, no loc, pt does endorse recent hx of decreasing strength. Numerous bruises and significant laceration to her face. also endorsing b/l arm pain. CT in the ED showed volume overload 2/2 cirrhosis, 3mm non obstructing renal calculus, persistant right pleural effusion, chronic compression fx of L3. Head Ct was negative, Face ct age indeterminate nasal fx. -On inpt -Analgesia tylenol for pain <5 for pain >5 morphine 2mg, Voltaren changed to scheduled TID, added Tramadol 50mg PRN and can use this in place of morphine after discussion with patient Patient requested tramadol on d/c but decision was deferred to primary care provider. -PT/OT evaluation recommended SNF for rehabilitation and strengthening, but patient was adamant in her refusal. 1) Right Arm Pain Pt was barely able to raise arm against gravity s/p fall upon admission, now able to move arm in full. Suspect pt likely injured a nerve and nerve was stunned. Pt had negative CT in the ED, would consider MRI but pt is unable 2/2 to mechanical valve and pace maker. On exam it appeared as if pt musculature was functioning correctly. Elbow fracture negative -Analgesia as above -Ortho Cx and had impression of Resolving neuropraxia right upper extremity, with plan for observation only, supportive care and no need for office follow- up. 3) Anemia (Chronic) Pt is chronically anemic with baseline hgb 7-8, source of anemia is unknown though per pt thought to be a small bleeding vessel. She is currently s/p 2 units of pRBC last Friday. On admission HGB was 6.0, pt denies si/sx of anemia however this could have contributed to her fall -S/p Transfusion 2 units pRBC, she is currently stable at 7.7 4)CHF (active) Patient does not seem to be in acute decompensated CHF. She states her weight is stable. Concern for LE edema which she says is chronic -Continue Home Bumex 4mg po bid and metalazone 5 mg po 3xwk -Continue Metoprolol 100mg po daily -Continue Hydralazine 25mg po BID -Continue Digoxin 125 mcg daily 5) Hypokalemia (resolved) Chronic, treated in the past, 3.3 on admission 4.1 and stable now -20 meq KCL TID 6) DMII Last HBA1c 03/13 5.1 -Lantus 8units BID -SSI -BSG checks AC/HS -sugars reasonable continue to monitor 7) Stress Fracture Ct shows stress fracture still present at L3, L2 resolving, and chronic degenerative changes -states improved with Lidocaine patch and Voltaren Gel 8) History of mitral valve replacement with mechanical valve Stable, INR at 3.6 today holding today 03/16 dose and resuming home coumadin schedule tomorrow -continue home Coumadin -Goal 2.5-3.5 in patient with mechanical valve - Home nurse continue to monitor and primary care make changes as needed 9) COPD Stable sating 97% on room air has pleur-x for chronic effusion - Duonebs qid PRN - Begin Spiriva 10) AFIB Rate controlled with metoprolol Coumadin for anticoagulation 11) CAD -Continue Zetia -continue gemfibrozil 12) CKD Baseline CR is 2.5, 2.9 on admission 2 to poor perfusion from anemia on admission has followed with Dr. Dr. Wong in the past -today improved to 2.61 13)HTN Stable -continue home regimen hydralazine, metoprolol 14) Hypothyroidism Last TSH 2.12 -continue 175mcg levothyroxine qam 15) GERD (active) -continue ranitidine 150mg BID -Continue Pantoprazole 40mg 16) Overactive Bladder (active) -continue Trospium 17) Seasonal Allergies (active) -continue Vickie and montelukast 18) Back Pain Hydrocortisone, lidocaine patch, Voltaran gel Total Time Total Time Spent Total Time Spent (In Minutes): 60 Discharge Plan Discharge Items Patient Disposition: Home - Home Health Services Reason For Visit: S/P FALL Discharge Diagnosis: Fall due to weakness with resolving neuropraxia Condition: Good Discharge Goals: Improve disease control, Improve function and Increase independence Activity: Resume your previous activity Weightbearing Comment: Ambulate with walker Non-emergency contact: Primary Care Provider Call non-emergency contact if: you have any medication questions, your pain is not controlled, your pain is worsening, your pain is unusual for you and your temperature is above 100.5 Follow-up/Referrals: Phoenix Klein III, CRNP [Primary Care Provider] - 03/26/18 12:00 pm (Please, follow up with Phoenix ALAN on March 26 at 12:00 pm. *If you need to change this appointment, call the office at [phone].) Alo Cueva MD, FACS [Surgeon] - 03/23/18 11:15 am (Please, follow up with Dr. Cueva on FridayMarch 23 at 11:15 am. *If you need to change this appointment, call the office at [phone].) Diet: Heart Healthy Add Provider Instructions: Ms Morales, you were treated here at [facility] for your fall. You had some right arm weakness initially that was believed to be due to irritation of a nerve in the arm from the fall that has since resolved. You were also treated for your anemia for which you received 2 units as an inpatient and had recently received two units prior to admission. You will need to follow up with your primary care physician within the week to follow up on your anemia. Your INR level was slightly high today (3.6) . We recommend not taking your coumadin today and resuming your normal regimen tomorrow. We also STRONGLY recommend when ambulating at home please use your walker at all times to prevent further mechanical falls. Prescriptions: Continue levothyroxine [Synthroid] 175 mcg Tablet 175 mcg PO QAM RF: 0 metoprolol succinate [Toprol XL] 100 mg Tablet Extended Release 24 Hr 100 mg PO DAILY RF: 0 cyanocobalamin (vitamin B-12) [Vitamin B-12] 1,000 mcg Tablet 1,000 mcg PO DAILY RF: 0 fexofenadine [Vickie Allergy] 180 mg Tablet 180 mg PO DAILY RF: 0 gemfibrozil 600 mg Tablet 600 mg PO BID17 RF: 0 insulin aspart U-100 [Novolog U-100 Insulin aspart] 100 unit/mL Solution SUBCUT DAILY RF: 0 montelukast [Singulair] 10 mg Tablet 10 mg PO DAILY RF: 0 digoxin 125 mcg Tablet 125 mcg PO DAILY RF: 0 pyridoxine (vitamin B6) 100 mg Tablet 100 mg PO DAILY RF: 0 diazepam 5 mg Tablet 5 mg PO BID PRN (Reason: Anxiety) RF: 0 ezetimibe [Zetia] 10 mg Tablet 10 mg PO HS RF: 0 Saccharomyces boulardii [Florastor] 250 mg Capsule 250 mg PO DAILY RF: 0 trospium 20 mg Tablet 20 mg PO DAILY RF: 0 cholecalciferol (vitamin D3) [Vitamin D3] 1,000 unit Tablet 1,000 unit PO TID RF: 0 diclofenac sodium [Voltaren] 1 % Gel 1 applic Topical QID PRN (Reason: PAIN) RF: 0 hydralazine 25 mg tablet 25 mg PO BID RF: 0 warfarin 4 mg tablet 4 mg PO 3XWK RF: 0 ipratropium-albuterol 0.5 mg-3 mg(2.5 mg base)/3 mL solution for nebulization 3 ml INH QID PRN (Reason: Shortness Of Breath) RF: 0 insulin glargine 100 unit/mL solution 20 - 60 units subcut AMPM RF: 0 bumetanide 1 mg Tablet 4 mg PO BID RF: 0 hydrocortisone 1 % Ointment 1 applic EXT QID Qty: 15 RF: 0 pantoprazole 40 mg Tablet,Delayed Release (Dr/Ec) 40 mg PO QAM Qty: 30 RF: 0 ranitidine HCl 150 mg Tablet 150 mg PO BID Qty: 60 RF: 0 lidocaine 5 % Adhesive Patch,Medicated 1 patch Transdermal QAM Qty: 1 RF: 0 metolazone 5 mg Tablet 5 mg PO 3XWK PRN (Reason: weight gain>2lbs in 24 hrs) Qty: 30 RF: 5 potassium chloride 20 mEq Tablet,Er Particles/Crystals 20 meq PO BID Qty: 60 RF: 0 warfarin 3 mg tablet 3 mg PO 4XWK RF: 0 glucosamine-chondroitin [Osteo Bi-Flex] 250-200 mg Tablet 1 tab PO TID RF: 0 Stand-Alone Forms: [facility]/Other Patient Handouts: ED Mechanical Fall Discharge Orders: Discharge Order (Routine); Ordered 03/16/18 Ordered By: Christophe Ferraro Admission Data Admit Date/Time: 03/14/18 12:12 Attending Provider: Han Fuller Admit Provider: Drake Garcia I. Primary Care Provider: Phoenix Klein III Other Providers: Tang Guzman ; Oneil Garcia Service: Medical Other Interventions: Discharge Summary Assessment (RN) Last Done: 03/16/18 14:33 Pending Studies at Discharge: No DC Date/Time DO NOT enter until pt leaves facility: 03/16/18 15:51 Supervising Physician Co-Signing Physician Notes Attending attestation Pt seen and examined in concert with Dr. Ferraro. In agreement with the documented findings as noted in the resident documentation with any exceptions or additions as noted here. Sitting in chair at bedside. No acute complaint at present. Demonstrating RUE function repeatedly and vehement about returning home. Has caregivers that will be present. Does express understanding of the need to make a full recovery before attempting to take on more demanding tasks including care of her (working on transfer to [facility]). On examination, her facial ecchymosis and laceration appear to be healing well and causing no significant pain with oration or POI. CTAB. S1/S2 nl RRR no mCG. RUE motion overall intact though with mild grimace past 90 degrees Mechanical fall with facial contusion and laceration - reinforced the purpose and intent of rehabilitation and still refused, though patient states she will be more adherent to ambulation with a walker and modification of her lifestyle to support her recovery. Would be open to outpatient rehabilitation as well, though is hesitant, stating that she's strong enough without. RUE pain - gradually improving neuropraxia Chronic anemia with baseline of 7-8 s/p 2U PRBC - would recheck in outpatient for stability Else as noted in resident documentation.
== END 2018-03-16 15:51 | disposition home health service (06) | DRG 74 ==
LOC: ED 10:44 → 2W 10:44 → SUATTDRO 03-14 12:12

== ENCOUNTER 2018-03-25 12:18 | Inpatient (IN) ==
[2018-03-25] MEDS ORDERED: SODIUM CHLORIDE 0.9% 250 ML IV PRN (13:36)
[2018-03-25 13:38] LABS: INR 3.4 (0.9-1.1); Prothrombin Time 31.9 Seconds (9.0-12.0)
[2018-03-25 13:40] LABS: Albumin Level 2.8 gm/dl (3.4-5.0); BUN Creatinine Ratio 37.6 (10-20); Calcium 8.2 mg/dl (8.5-10.1); Creatinine Clr Calc Pharmacy 16.8 ml/min; Est GFR (African American) 18.7; Est GFR (Non-African American) 16.1; Hematocrit (blood only) 19.3 % (37-47); Magnesium 2.6 mg/dl (1.8-2.4); Mean Corpuscular Hgb Conc 31.1 g/dL (32-36); Mean Corpuscular Volume 89.4 fL (80-100); Mean Platelet Volume 9.3 fL (7.4-10.4); Platelet Count 269 K/uL (130-400); Potassium 2.8 mmol/L (3.5-5.1); RDW Coefficient of Variation 17.2 % (11.5-14.5); RDW Standard Deviation 56.1 fL (36.4-46.3); Red Blood Count 2.16 M/uL (4.2-5.4)
[2018-03-25] MEDS ORDERED: POTASSIUM CHLORIDE 20 MEQ TABCR PO STA (13:41)
[2018-03-25] MEDS ORDERED: POTASSIUM CHLORIDE / WTR 10 MEQ/100 ML PLCT IV ONE (13:41)
[2018-03-25 13:51] LABS: Albumin Globulin Ratio 0.6 (0.9-2); Bilirubin,Total 0.4 mg/dl (0.2-1); Globulin 4.5 gm/dl (2.5-4.0); Total Protein 7.3 gm/dl (6.4-8.2); Troponin I 0.031 ng/ml (0-0.045)
--- NOTE | 2018-03-25 13:54 | XRay Report ---
XR chest 1V portable HISTORY: weakness COMPARISON: Chest 03/12/2018. FINDINGS: Right basilar pleural catheter and small right pleural effusion remain unchanged. No pneumo thorax. The heart remains enlarged. Postoperative changes, cardiac valve prosthesis, and a left-sided single lead pacemaker are again noted. Mild pulmonary vascular congestion also persists. Patchy dens ities within the right lung base have slightly progressed. IMPRESSION: 1. Small patchy densities within the right lung base which have slightly progressed. This could repre sent atelectasis or pneumonia. 2. Small right pleural effusion and a right basilar pleural catheter remain unchanged. 3. Cardiomegaly and mild pulmonary vascular congestion are again noted. Electronically signed by: Lalito Villavicencio M.D. 03/25/2018 1:53 PM
[2018-03-25 13:59] LABS: Basophils # (auto) 0.02 K/uL (0-0.2); Basophils % (auto) 0.4 %; Eosinophils # (auto) 0.13 K/uL (0-0.5); Eosinophils % (auto) 2.3 %; Immature Granulocytes # (auto) 0.01 K/uL (0.00-0.02); Immature Granulocytes % (auto) 0.2 %; Lymphocytes # (auto) 0.78 K/uL (1.2-3.4); Lymphocytes % (auto) 13.7 %; Monocytes # (auto) 0.62 K/uL (0.11-0.59); Monocytes % (auto) 10.9 %; Neutrophils # (auto) 4.14 K/uL (1.4-6.5); Neutrophils % (auto) 72.5 %; Polychromasia 1+
--- NOTE | 2018-03-25 14:41 | Emergency Department Note ---
Entered by Erika Fischer acting as a scribe for History of Present Illness General Chief complaint: Abnormal Labs/Diagnostic Testing Stated complaint: FLUID RETENTION, "COUNTS DOWN" Source: patient History of Present Illness Provider complaint: Abnormal Labs/Diagnostic Testing Location: left (generalized) and right (generalized) Pain Consistency: + constant Maximum Pain Intensity: 10 Quality: + constant Exacerbated By: + none Associated symptoms: + loss of appetite and + other (Negative: Stomach pain, cold symptoms, dark stools Postive: swollen legs, normal bowel movements, lip cut) The patient is a 77 year old female who presents to the Emergency Room with complaints of abnormal labs. The patient reports her blood count potassium count and magnesium count are down. She reports her legs are swollen. The patient states she has loss of appetite. She states her bowel movements are normal. The patient states she fell a few days ago and cut her lip. She notes her neighbor helped her to get inside the house. The patient denies stomach pain , dark stools, or cold symptoms. Home Medications Home Medications Medication Instructions Recorded Confirmed Type Saccharomyces boulardii [Florastor] 250 mg PO DAILY 11/18/17 03/25/18 History cholecalciferol (vitamin D3) 1,000 unit PO TID 11/18/17 03/25/18 History [Vitamin D3] cyanocobalamin (vitamin B-12) 1,000 mcg PO DAILY 11/18/17 03/25/18 History [Vitamin B-12] diazepam 5 mg PO BID PRN 11/18/17 03/25/18 History diclofenac sodium [Voltaren] 1 applic TOPICAL QID PRN 11/18/17 03/25/18 History digoxin 125 mcg PO DAILY 11/18/17 03/25/18 History ezetimibe [Zetia] 10 mg PO HS 11/18/17 03/25/18 History fexofenadine [Vickie Allergy] 180 mg PO DAILY 11/18/17 03/25/18 History gemfibrozil 600 mg PO BID17 11/18/17 03/25/18 History insulin aspart U-100 [Novolog 0 unit SUBCUT DAILY 11/18/17 03/25/18 History U-100 Insulin aspart] levothyroxine [Synthroid] 175 mcg PO QAM 11/18/17 03/25/18 History metoprolol succinate [Toprol XL] 100 mg PO DAILY 11/18/17 03/25/18 History montelukast [Singulair] 10 mg PO DAILY 11/18/17 03/25/18 History pyridoxine (vitamin B6) 100 mg PO DAILY 11/18/17 03/25/18 History trospium 20 mg PO DAILY 11/18/17 03/25/18 History insulin glargine 20 - 60 units SUBCUT AMPM 11/24/17 03/25/18 History hydralazine 25 mg tablet 25 mg PO BID tab 12/03/17 03/25/18 History bumetanide 4 mg PO QPM 12/23/17 03/25/18 History hydrocortisone 1 applic EXT QID #15 g 01/01/18 03/25/18 Rx lidocaine 1 patch TRANSDERMAL QAM #1 ea 01/01/18 03/25/18 Rx metolazone 5 mg PO 3XWK PRN #30 tab 01/01/18 03/25/18 Rx pantoprazole 40 mg PO QAM #30 tab 01/01/18 03/25/18 Rx potassium chloride 20 meq PO BID #60 tab 01/01/18 03/25/18 Rx ranitidine HCl 150 mg PO BID #60 tab 01/01/18 03/25/18 Rx ipratropium-albuterol 0.5 mg-3 3 ml INH QID PRN 02/16/18 03/25/18 History mg(2.5 mg base)/3 mL nebulization soln glucosamine-chondroitin [Osteo 1 tab PO TID 03/12/18 03/25/18 History Bi-Flex] warfarin 3 mg PO 4XWK 03/12/18 03/25/18 History warfarin 4 mg tablet 4 mg PO 3XWK 03/15/18 03/25/18 History bumetanide 6 mg PO QAM 03/25/18 03/25/18 History Allergies Allergy/AdvReac Type Severity Reaction Status Date / Time Penicillins Allergy Severe anaphylaxis Verified 03/25/18 14:30 30yrs ago, also broke out with sores diltiazem Allergy Unknown unknown Verified 03/25/18 14:30 levofloxacin Allergy Unknown UNKNOWN Verified 03/25/18 14:30 moxifloxacin Allergy Unknown UNKNOWN Verified 03/25/18 14:30 aspirin AdvReac Intermediate increased Verified 03/25/18 14:30 bleeding (on warfarin) doxycycline AdvReac Intermediate GI SYMPTOMS Verified 03/25/18 14:30 atorvastatin AdvReac Unknown & Crestor Verified 03/25/18 14:30 = muscle aches/pains Bactrim AdvReac Unknown CONFUSION Verified 11/10/17 17:54 nortriptyline AdvReac Unknown choking on Verified 03/25/18 14:30 food NSAIDS (Non-Steroidal AdvReac Unknown AVOID PER Verified 03/25/18 14:30 Anti-Inflamma CASE - [id number] quinidine AdvReac Unknown flu-like Verified 03/25/18 14:30 symptoms sulfamethoxazole AdvReac Unknown CONFUSION Verified 03/25/18 14:30 trimethoprim AdvReac Unknown CONFUSION Verified 03/25/18 14:30 clonidine AdvReac Unknown Verified 03/25/18 14:30 hydrocodone AdvReac Unknown Verified 03/25/18 14:30 Past Med/Surg History Family History Other Diabetes mellitus HTN (hypertension) Social History marital status: Current Living Situation: Alone Current Living Situation Comment: has brought spouse, who has dementia, home from [employer] Other Information That Helps Us Care for You: No Feels Safe at Home: Yes Safety Concerns: Feels Safe At This Time Smoking Status: Never smoker Hx Alcohol Use: No Hx Substance Use: No Beliefs That Will Affect Care: None Preferred Language: Sammarinese Communication Ability: Effective Mangle Tender Cloth Required: No Review of Systems See HPI for pertinent positives & negatives. and A total of 10 systems reviewed and were otherwise negative Physical Exam Vital Signs Vital Signs - 24 hr 03/25/18 12:39 03/25/18 13:26 03/25/18 14:44 Temperature 37.1 C Temperature Source Oral Sepsis Recent Fever Within 48 Hours No Sepsis New/Unexplained Change in Mental Status No Sepsis Action Taken by Nursing No Action Required Pulse Rate 72 Pulse Rate [Finger] 71 72 Respiratory Rate 22 17 17 Respiratory Effort / Characteristics Non-Labored Spontaneous Non-Labored Spontaneous Non-Labored Spontaneous Respiratory Depth Normal Normal Normal Respiratory Pattern Regular Blood Pressure 120/59 L Blood Pressure [Right Arm] Blood Pressure Mean 79 Blood Pressure Mean [Right Arm] Blood Pressure Position [Right Arm] Pulse Oximetry 98 98 97 Oxygen Delivery Method Room Air Room Air Room Air 03/25/18 14:49 03/25/18 16:00 03/25/18 17:00 Temperature 36.5 C Temperature Source Oral Sepsis Recent Fever Within 48 Hours Sepsis New/Unexplained Change in Mental Status Sepsis Action Taken by Nursing Pulse Rate Pulse Rate [Finger] 69 Respiratory Rate 18 Respiratory Effort / Characteristics Non-Labored Respiratory Depth Normal Respiratory Pattern Regular Blood Pressure Blood Pressure [Right Arm] 118/62 121/49 L 113/53 L Blood Pressure Mean Blood Pressure Mean [Right Arm] 80 73 73 Blood Pressure Position [Right Arm] Sitting Lying Pulse Oximetry Oxygen Delivery Method Room Air GENERAL: Awake, alert, chronically ill-appearing, in no distress HENT: Normocephalic, atraumatic. EYES: Normal conjunctiva. Sclera non-icteric. NECK: Supple. No nuchal rigidity. RESPIRATORY: Diminished lung bases. No wheezes. Normal respiratory effort. CARDIAC: Normal rate. Irregular rhythm. Extremities warm and well perfused. CHEST: Right side pleurx catheter GI: Soft, non-distended. No tenderness to palpation. No rebound or guarding. No masses. RECTAL: Deferred. MUSCULOSKELETAL: Atraumatic. Chest examination reveals no tenderness. LOWER EXTREMITIES: Calves are equal size bilaterally and non-tender. 3+ bilateral edema NEURO: Normal sensorium. No sensory or motor deficits noted. No facial droop. SKIN: Warm and dry. No rash or jaundice noted. Course 1302: Past medical records reviewed. The patient was evaluated in room B6, and a complete history and physical examination were performed. 1345: I reviewed the patient's case with Dr. Hall, [facility]-Hospitalist. He will evaluate the patient for further management. Administered Medications Gemfibrozil (Lopid) 600 mg PO BID17 NAY Stop: 04/24/18 16:59 Last Admin: 03/25/18 18:03 Dose: 600 mg Bumetanide 10 mg/ Dextrose 50 mls @ 1 mls/hr IV .Q24H NAY Stop: 04/24/18 17:59 Last Admin: 03/25/18 18:22 Dose: 1 mls/hr Insulin Aspart (Novolog Flexpen) 0 units SC ACHS NAY Stop: 04/24/18 16:29 Last Admin: 03/25/18 18:06 Dose: 4 units Discontinued Medications Sodium Chloride (Nss 250ml) 250 mls @ 15 mls/hr IV .[id number] PRN PRN Reason: For Transfusion Stop: 04/24/18 13:35 Last Infusion: 03/25/18 18:58 Dose: 0 mls/hr Admin: 03/25/18 13:50 Dose: 15 mls/hr Potassium Chloride (K David / Wtr) 10 meq in 100 mls @ 100 mls/hr IV ONE ONE Stop: 03/25/18 14:40 Last Infusion: 03/25/18 14:50 Dose: 0 mls/hr Admin: 03/25/18 13:50 Dose: 100 mls/hr Furosemide 100 mg/ Dextrose 100 mls @ 10 mls/hr IV .Q10H NAY Stop: 04/24/18 16:59 Last Admin: 03/25/18 18:59 Dose: Not Given Potassium Chloride (Klor-Con M20) 40 meq PO NOW STA Stop: 03/25/18 13:42 Last Admin: 03/25/18 13:50 Dose: Not Given Medical Decision Making Differential Diagnosis Differential includes acute coronary syndrome, myocardial infarction, CVA, TIA , anemia, infection, pneumonia, UTI, pyelonephritis, poor nutrition, dehydration , electrolyte disturbance,hypoglycemia. Medical Records Attestation: I reviewed the patient's medical records. Home Medications Current Medication List: was personally reviewed by me Laboratory Data Attestation: I reviewed the patient's lab results. Result diagrams: 03/25/18 13:00 03/25/18 13:00 Lab Results 03/25/18 03/25/18 03/25/18 Range/Units 13:00 13:00 13:00 WBC (4.8-10.8) K/uL RBC (4.2-5.4) M/uL Hgb (12.0-16.0) g/dL Hct (37-47) % MCV (80-100) fL MCH (25-34) pg MCHC (32-36) g/dL RDW Std Deviation (36.4-46.3) fL RDW Coeff of Marco (11.5-14.5) % Plt Count (130-400) K/uL MPV (7.4-10.4) fL Immature Gran % (Auto) % Neut % (Auto) % Lymph % (Auto) % [place] % (Auto) % Eos % (Auto) % Baso % (Auto) % Immature Gran # (Auto) (0.00-0.02) K/uL Neut # (Auto) (1.4-6.5) K/uL Lymph # (Auto) (1.2-3.4) K/uL [place] # (Auto) (0.11-0.59) K/uL Eos # (Auto) (0-0.5) K/uL Baso # (Auto) (0-0.2) K/uL Polychromasia PT 31.9 H (9.0-12.0) Seconds INR 3.4 H (0.9-1.1) Sodium 131 L (136-145) mmol/L Potassium 2.8 L (3.5-5.1) mmol/L Chloride 95 L (98-107) mmol/L Carbon Dioxide 22 (21-32) mmol/L Anion Gap 14.0 H (3-11) BUN 104 H (7-18) mg/dl Creatinine 2.76 H (0.6-1.2) mg/dl Est Cr Clr Drug Dosing 16.8 ml/min Est GFR ( Amer) 18.7 Est GFR (Non-Af Amer) 16.1 BUN/Creatinine Ratio 37.6 H (10-20) Glucose 181 H (70-99) mg/dl POC Glucose (70-99) Calcium 8.2 L (8.5-10.1) mg/dl Magnesium 2.6 H (1.8-2.4) mg/dl Iron (35-150) mcg/dl TIBC (250-450) mcg/dl Total Bilirubin 0.4 (0.2-1) mg/dl AST 35 (15-37) U/L ALT 26 (12-78) U/L Alkaline Phosphatase 122 H (45-117) U/L Troponin I 0.031 (0-0.045) ng/ml NT-Pro-B Natriuret Pep 995 H (0-900) pg/ml Total Protein 7.3 (6.4-8.2) gm/dl Albumin 2.8 L (3.4-5.0) gm/dl Globulin 4.5 H (2.5-4.0) gm/dl Albumin/Globulin Ratio 0.6 L (0.9-2) Lipase 620 H (73-393) U/L TSH 4.810 H (0.300-4.500) uIu/ml Free T4 (0.8-1.6) ng/dl Urine Color Urine Appearance (Clear) Urine pH (4.5-7.5) Ur Specific [place] (1.000-1.030) Urine Protein (Negative) Urine Glucose (UA) (Negative) Urine Ketones (Negative) Urine Blood (Negative) Urine Nitrite (Negative) Urine Bilirubin (Negative) Urine Urobilinogen (Negative) Ur Leukocyte Esterase (Negative) Digoxin 1.6 (0.8-2.0) ng/ml Blood Type Antibody Screen Antibody Identification Crossmatch 03/25/18 03/25/18 03/25/18 Range/Units 13:00 13:28 14:37 WBC 5.70 (4.8-10.8) K/uL RBC 2.16 L (4.2-5.4) M/uL Hgb 6.0 L* (12.0-16.0) g/dL Hct 19.3 L* (37-47) % MCV 89.4 (80-100) fL MCH 27.8 (25-34) pg MCHC 31.1 L (32-36) g/dL RDW Std Deviation 56.1 H (36.4-46.3) fL RDW Coeff of Marco 17.2 H (11.5-14.5) % Plt Count 269 (130-400) K/uL MPV 9.3 (7.4-10.4) fL Immature Gran % (Auto) 0.2 % Neut % (Auto) 72.5 % Lymph % (Auto) 13.7 % [place] % (Auto) 10.9 % Eos % (Auto) 2.3 % Baso % (Auto) 0.4 % Immature Gran # (Auto) 0.01 (0.00-0.02) K/uL Neut # (Auto) 4.14 (1.4-6.5) K/uL Lymph # (Auto) 0.78 L (1.2-3.4) K/uL [place] # (Auto) 0.62 H (0.11-0.59) K/uL Eos # (Auto) 0.13 (0-0.5) K/uL Baso # (Auto) 0.02 (0-0.2) K/uL Polychromasia 1+ PT (9.0-12.0) Seconds INR (0.9-1.1) Sodium (136-145) mmol/L Potassium (3.5-5.1) mmol/L Chloride (98-107) mmol/L Carbon Dioxide (21-32) mmol/L Anion Gap (3-11) BUN (7-18) mg/dl Creatinine (0.6-1.2) mg/dl Est Cr Clr Drug Dosing ml/min Est GFR ( Amer) Est GFR (Non-Af Amer) BUN/Creatinine Ratio (10-20) Glucose (70-99) mg/dl POC Glucose (70-99) Calcium (8.5-10.1) mg/dl Magnesium (1.8-2.4) mg/dl Iron (35-150) mcg/dl TIBC (250-450) mcg/dl Total Bilirubin (0.2-1) mg/dl AST (15-37) U/L ALT (12-78) U/L Alkaline Phosphatase (45-117) U/L Troponin I (0-0.045) ng/ml NT-Pro-B Natriuret Pep (0-900) pg/ml Total Protein (6.4-8.2) gm/dl Albumin (3.4-5.0) gm/dl Globulin (2.5-4.0) gm/dl Albumin/Globulin Ratio (0.9-2) Lipase (73-393) U/L TSH (0.300-4.500) uIu/ml Free T4 (0.8-1.6) ng/dl Urine Color Yellow Urine Appearance Clear (Clear) Urine pH 5.0 (4.5-7.5) Ur Specific [place] 1.009 (1.000-1.030) Urine Protein Negative (Negative) Urine Glucose (UA) Negative (Negative) Urine Ketones Negative (Negative) Urine Blood Negative (Negative) Urine Nitrite Negative (Negative) Urine Bilirubin Negative (Negative) Urine Urobilinogen Negative (Negative) Ur Leukocyte Esterase Negative (Negative) Digoxin (0.8-2.0) ng/ml Blood Type A Positive Antibody Screen POSITIVE A Antibody Identification Anti-c Crossmatch See Detail 03/25/18 03/25/18 Range/Units 16:23 16:26 WBC (4.8-10.8) K/uL RBC (4.2-5.4) M/uL Hgb (12.0-16.0) g/dL Hct (37-47) % MCV (80-100) fL MCH (25-34) pg MCHC (32-36) g/dL RDW Std Deviation (36.4-46.3) fL RDW Coeff of Marco (11.5-14.5) % Plt Count (130-400) K/uL MPV (7.4-10.4) fL Immature Gran % (Auto) % Neut % (Auto) % Lymph % (Auto) % [place] % (Auto) % Eos % (Auto) % Baso % (Auto) % Immature Gran # (Auto) (0.00-0.02) K/uL Neut # (Auto) (1.4-6.5) K/uL Lymph # (Auto) (1.2-3.4) K/uL [place] # (Auto) (0.11-0.59) K/uL Eos # (Auto) (0-0.5) K/uL Baso # (Auto) (0-0.2) K/uL Polychromasia PT (9.0-12.0) Seconds INR (0.9-1.1) Sodium (136-145) mmol/L Potassium (3.5-5.1) mmol/L Chloride (98-107) mmol/L Carbon Dioxide (21-32) mmol/L Anion Gap (3-11) BUN (7-18) mg/dl Creatinine (0.6-1.2) mg/dl Est Cr Clr Drug Dosing ml/min Est GFR ( Amer) Est GFR (Non-Af Amer) BUN/Creatinine Ratio (10-20) Glucose (70-99) mg/dl POC Glucose 122 H (70-99) Calcium (8.5-10.1) mg/dl Magnesium (1.8-2.4) mg/dl Iron 20 L (35-150) mcg/dl TIBC 418 (250-450) mcg/dl Total Bilirubin (0.2-1) mg/dl AST (15-37) U/L ALT (12-78) U/L Alkaline Phosphatase (45-117) U/L Troponin I (0-0.045) ng/ml NT-Pro-B Natriuret Pep (0-900) pg/ml Total Protein (6.4-8.2) gm/dl Albumin (3.4-5.0) gm/dl Globulin (2.5-4.0) gm/dl Albumin/Globulin Ratio (0.9-2) Lipase (73-393) U/L TSH (0.300-4.500) uIu/ml Free T4 0.87 (0.8-1.6) ng/dl Urine Color Urine Appearance (Clear) Urine pH (4.5-7.5) Ur Specific [place] (1.000-1.030) Urine Protein (Negative) Urine Glucose (UA) (Negative) Urine Ketones (Negative) Urine Blood (Negative) Urine Nitrite (Negative) Urine Bilirubin (Negative) Urine Urobilinogen (Negative) Ur Leukocyte Esterase (Negative) Digoxin (0.8-2.0) ng/ml Blood Type Antibody Screen Antibody Identification Crossmatch Imaging Data Radiologist's Impression: Radiology results as stated below per my review and the radiologist's interpretation: XR chest 1V portable HISTORY: weakness COMPARISON: Chest 03/12/2018. FINDINGS: Right basilar pleural catheter and small right pleural effusion remain unchanged. No pneumothorax. The heart remains enlarged. Postoperative changes, cardiac valve prosthesis, and a left-sided single lead pacemaker are again noted. Mild pulmonary vascular congestion also persists. Patchy densities within the right lung base have slightly progressed. IMPRESSION: 1. Small patchy densities within the right lung base which have slightly progressed. This could represent atelectasis or pneumonia. 2. Small right pleural effusion and a right basilar pleural catheter remain unchanged. 3. Cardiomegaly and mild pulmonary vascular congestion are again noted. Electronically signed by: Lalito Villavicencio M.D. 03/25/2018 1:53 PM ECG Data Attestation: I personally reviewed and interpreted this ECG as follows: Indication: weakness Rate (beats per minute): 70 Rhythm: junctional (accelerated ) Findings: + other (occasional ventricular paced) and + RBBB Comparison ECG Date: from (March 12, 2018.) Change: no significant change Blood Pressure Blood Pressure Findings: Low blood pressure Blood Pressure Disposition: further management by hospitalist EDDA Narrative 77-year-old female history of chronic anemia requiring multiple transfusions, cirrhosis, hypothyroidism, CHF, CKD, pulmonary hypertension, mechanical heart valve, stroke, COPD, recurrent pleural effusion with Pleurx catheter presents today complaining of decreased blood count along with significant lower extremity swelling. Hemoglobin is low at 6. INR slightly elevated. Hypokalemia again noted. Given IV potassium replacement but she refused oral replacement. Blood consent was obtained and transfusion ordered. Multiple antibodies and will be delayed obtaining blood transfusion. Blood bank states they may be able to have 2 units by this evening after 8:00pm. Appears to be a chronic lower GI bleed, worsened by her anticoagulation required by her valve. Chest x-ray with evidence of mild fluid overload but not having significant symptoms consistent with pneumonia. She is not acutely hypotensive or in shock at this point. Discussed with the patient the hospitalist for admission for transfusion and repletion of her potassium. Failing also outpatient duiresis of edema with large quanities or bumex. Kidney fxn stable, likely anemia is worsening this. Will defer treatment to hospitalist following transfusion. Impression & Plan Acute blood loss anemia, Fluid overload, Hypokalemia Critical Care Time I have personally spent 30 minutes of critical care time in the direct management of this patient. This includes bedside care, interpretation of diagnostic studies, and testing, discussion with consultants, patient, and family members, and other required patient management activities. These 30 minutes is in excess of all separately billable procedures. Critical Care Time: Yes Total Critical Care Time: 30 Discharge Plan Visit Data *Final* Discharge Date/Time: 03/25/18 15:47 Chief Complaint: Abnormal Labs/Diagnostic Testing Stated Complaint: FLUID RETENTION, "COUNTS DOWN" ED Provider: Saul Pérez Discharge Problem: Acute blood loss anemia, Fluid overload, Hypokalemia Patient Disposition: Admitted As Inpatient Discharge Instructions Interventions: ED Discharge Assessment Last Done: 03/25/18 15:47 The scribe's documentation has been prepared under my direction and personally reviewed by me in its entirety. I confirm that the note above accurately reflects all work, treatment, procedures, and medical decision making performed by me.
[2018-03-25 14:45] LABS: Appearance Urine Clear (Clear); Bilirubin Urine Negative (Negative); Color Urine Yellow; Glucose Urine UA Negative (Negative); Ketones Urine Negative (Negative); Leukocyte Esterase Urine Negative (Negative); Nitrite Urine Negative (Negative); Protein Urine Negative (Negative); Specific Gravity Urine 1.009 (1.000-1.030); Urobilinogen Urine Negative (Negative)
--- NOTE | 2018-03-25 14:56 | History & Physical Report ---
Date of Service March 25, 2018 Assessment & Plan (1) Anemia: Patient presents with symptomatic anemia which is a common problem for her. She is a combination of iron deficiency anemia and anemia of chronic disease likely based on diabetic renal disease. She follows Dr. Sandeep Kaminski for this and has been on outpatient her Arancep and iron infusions. The patient most recently was in the hospital at the end of February 2018 he did receive transfusions at that time today she presents with a hemoglobin below 6 g. Patient has persistent intermittent melena. She requires anticoagulation for mechanical valve replacement and atrial fibrillation the source of bleeding cannot be identified she remains to have persistent problems. Now because of multiple transfusions she is developed difficulty with crossmatching We will consult Dr. Kaminski to render his opinion whether she require any additional therapies other than transfusion support there are pending iron studies (2) Pleural effusion, right: Patient is a Pleurx catheter in place which is draining daily it drained 300 cc of fluid this morning her chest x-ray shows to be in good placement and there is no reaccumulation of her pleural effusion at this time (3) Pulmonary hypertension: Patient is significant significant massive lower extremity edema likely based on pulmonary hypertension and COPD. She states they have increased her outpatient diuretics significant amount without resolution. We will place a Cullen catheter to assess urine output and institute a Lasix drip with 10 mg an hour over the next 24 hours. The patient does have chronic kidney disease stage IV and this is stable at this time with caution we will try to diurese her to improve her skin breakdown and also mobility (4) Atrial fibrillation: Patient currently is paced with underlying A. fib rhythm in the background she is anticoagulated with Coumadin with an INR 3.4 and she has digoxin as part of the control of her rate in addition to metoprolol (5) Hypothyroidism: Patient claims to be compliant with her medications are Synthroid is 175 mcg daily her TSH is slightly elevated there is a pending free T4 on presentation (6) Diabetes mellitus: Patient's glucoses have been in control at home however the patient now has a poor appetite we will reduce her Lantus to 20 twice daily with insulin sliding scale and use glycemic management if needed (7) Cirrhosis: Patient has a history of cirrhosis in her chart based upon hepatic congestive changes. (8) Hypertension: (9) Depression: Patient has significant depression from her medical conditions this is also treated with anxiety she has diazepam as needed for anxiety (10) Lumbar compression fracture: Patient has pain secondary to her edema and also this fracture in her back she is using both topical and oral opiate medications to try to improve her pain (11) Hypokalemia: Patient's potassium is low this will be repleted both in the ER and upstairs on the floor (12) DVT prophylaxis: Her Coumadin will serve as DVT prevention it is 3.4 on presentation will follow daily and slightly reduce her oral dosing History of Present Illness Primary Care Provider: Phoenix Klein, III, AGRICULTURAL SCIENCE PROFESSOR Patient presents weak and tired was told her outpatient blood work hemoglobin was low she has massive lower extremity edema has difficulty moving about with some open areas of her feet. There is difficulty crossmatching her blood states that her edema is makes it difficult for her to move about Allergies Allergy/AdvReac Type Severity Reaction Status Date / Time Penicillins Allergy Severe anaphylaxis Verified 03/25/18 14:30 30yrs ago, also broke out with sores diltiazem Allergy Unknown unknown Verified 03/25/18 14:30 levofloxacin Allergy Unknown UNKNOWN Verified 03/25/18 14:30 moxifloxacin Allergy Unknown UNKNOWN Verified 03/25/18 14:30 aspirin AdvReac Intermediate increased Verified 03/25/18 14:30 bleeding (on warfarin) doxycycline AdvReac Intermediate GI SYMPTOMS Verified 03/25/18 14:30 atorvastatin AdvReac Unknown & Crestor Verified 03/25/18 14:30 = muscle aches/pains Bactrim AdvReac Unknown CONFUSION Verified 11/10/17 17:54 nortriptyline AdvReac Unknown choking on Verified 03/25/18 14:30 food NSAIDS (Non-Steroidal AdvReac Unknown AVOID PER Verified 03/25/18 14:30 Anti-Inflamma [address] HICKS - [id number] quinidine AdvReac Unknown flu-like Verified 03/25/18 14:30 symptoms sulfamethoxazole AdvReac Unknown CONFUSION Verified 03/25/18 14:30 trimethoprim AdvReac Unknown CONFUSION Verified 03/25/18 14:30 clonidine AdvReac Unknown Verified 03/25/18 14:30 hydrocodone AdvReac Unknown Verified 03/25/18 14:30 Home Medications Home Medications Medication Instructions Recorded Confirmed Type Saccharomyces boulardii [Florastor] 250 mg PO DAILY 11/18/17 03/25/18 History cholecalciferol (vitamin D3) 1,000 unit PO TID 11/18/17 03/25/18 History [Vitamin D3] cyanocobalamin (vitamin B-12) 1,000 mcg PO DAILY 11/18/17 03/25/18 History [Vitamin B-12] diazepam 5 mg PO BID PRN 11/18/17 03/25/18 History diclofenac sodium [Voltaren] 1 applic TOPICAL QID PRN 11/18/17 03/25/18 History digoxin 125 mcg PO DAILY 11/18/17 03/25/18 History ezetimibe [Zetia] 10 mg PO HS 11/18/17 03/25/18 History fexofenadine [Vickie Allergy] 180 mg PO DAILY 11/18/17 03/25/18 History gemfibrozil 600 mg PO BID17 11/18/17 03/25/18 History insulin aspart U-100 [Novolog 0 unit SUBCUT DAILY 11/18/17 03/25/18 History U-100 Insulin aspart] levothyroxine [Synthroid] 175 mcg PO QAM 11/18/17 03/25/18 History metoprolol succinate [Toprol XL] 100 mg PO DAILY 11/18/17 03/25/18 History montelukast [Singulair] 10 mg PO DAILY 11/18/17 03/25/18 History pyridoxine (vitamin B6) 100 mg PO DAILY 11/18/17 03/25/18 History trospium 20 mg PO DAILY 11/18/17 03/25/18 History insulin glargine 20 - 60 units SUBCUT AMPM 11/24/17 03/25/18 History hydralazine 25 mg tablet 25 mg PO BID tab 12/03/17 03/25/18 History bumetanide 4 mg PO QPM 12/23/17 03/25/18 History hydrocortisone 1 applic EXT QID #15 g 01/01/18 03/25/18 Rx lidocaine 1 patch TRANSDERMAL QAM #1 ea 01/01/18 03/25/18 Rx metolazone 5 mg PO 3XWK PRN #30 tab 01/01/18 03/25/18 Rx pantoprazole 40 mg PO QAM #30 tab 01/01/18 03/25/18 Rx potassium chloride 20 meq PO BID #60 tab 01/01/18 03/25/18 Rx ranitidine HCl 150 mg PO BID #60 tab 01/01/18 03/25/18 Rx ipratropium-albuterol 0.5 mg-3 3 ml INH QID PRN 02/16/18 03/25/18 History mg(2.5 mg base)/3 mL nebulization soln glucosamine-chondroitin [Osteo 1 tab PO TID 03/12/18 03/25/18 History Bi-Flex] warfarin 3 mg PO 4XWK 03/12/18 03/25/18 History warfarin 4 mg tablet 4 mg PO 3XWK 03/15/18 03/25/18 History bumetanide 6 mg PO QAM 03/25/18 03/25/18 History Past Med/Surg History Family History Other Diabetes mellitus HTN (hypertension) Social History marital status: Current Living Situation: Alone Current Living Situation Comment: has brought spouse, who has dementia, home from [employer] Other Information That Helps Us Care for You: No Feels Safe at Home: Yes Safety Concerns: Feels Safe At This Time Smoking Status: Never smoker Hx Alcohol Use: No Hx Substance Use: No Beliefs That Will Affect Care: None Preferred Language: [place] Communication Ability: Effective Life Skills Consultant Required: No Review of Systems ROS: Patient is weak tired and chronically ill No double vision blurry vision No problems with speech or swallowing No palpitations, chest pain or pressure No Wheezing dyspnea on exertion No abdominal pain nausea vomiting diarrhea recent increase in weight No burning urine urine frequency or changes in color Diffusion persistent joint and muscle pain No skin rashes or oral lesions Massive edema and some skin breakdown of her lower legs due to swelling Persistent focus back pain but no numbness No changes in memory or confusion Physical Exam 2 Vital Signs (Past 24 Hours): Last Vital Signs Temp 37.1 C 03/25/18 12:39 Pulse 72 03/25/18 14:44 Resp 17 03/25/18 14:44 BP 120/59 L 03/25/18 12:39 Pulse Ox 97 03/25/18 14:44 The patient appeared chronically ill pale Vital signs as documented. Head exam is unremarkable. Neck is with significant jugular venous distension, there is no thyromegaly, or lymphademopathy Lungs are clear diminished bilaterally Cardiac exam reveals Rhythm is regular (although she is in A. fib on the monitor). Systolic murmur is heard Abdominal exam reveals normal bowel sounds, slight distention slight dullness no masses, no organomegaly Extremities are significantly edematous mostly in the thighs but also lower legs there is some skin irritation from the swelling Neurologic exam is A&Ox3, no focal deficits, strength is equal bilateral Skin is warm Dry _ (1) Diabetes mellitus Chronic kidney disease stage: stage 4 (severe) Diabetes mellitus complication detail: with chronic kidney disease Diabetes mellitus complication status: with kidney complications Diabetes mellitus [facility] insulin use: with intermediate project manager use Diabetes mellitus macular edema: Diabetes mellitus type: type 2 Diabetic retinopathy severity: Laterality: Proliferative retinopathy type: Qualified Code(s): E11.22 - Type 2 diabetes mellitus with diabetic chronic kidney disease; N18.4 - Chronic kidney disease, stage 4 (severe); Z79.4 - manager terminal (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 of insulin (2) Anemia Anemia type: unspecified type Bone marrow failure anemia type: Chronic kidney disease stage: Folate deficiency anemia type: Hemolytic anemia type: Iron deficiency anemia type: Other causes of anemia: Vitamin B12 deficiency anemia type: Qualified Code(s): D64.9 - Anemia, unspecified (3) Atrial fibrillation Atrial fibrillation type: chronic Qualified Code(s): I48.2 - Chronic atrial fibrillation (4) Hypothyroidism Hypothyroidism type: acquired Qualified Code(s): E03.9 - Hypothyroidism, unspecified (5) Cirrhosis Ascites presence: with ascites Hepatic cirrhosis type: unspecified hepatic cirrhosis Qualified Code(s): K74.60 - Unspecified cirrhosis of liver; R18.8 - Other ascites
[2018-03-25] MEDS ORDERED: DEXTROSE 50% 50 ML SYRINGE IV PRN (16:18)
[2018-03-25] MEDS ORDERED: GLUCOSE 10 TABS/TUBE PO PRN (16:18)
[2018-03-25] MEDS ORDERED: GLUCOSE 40% GEL 15 GM TUBE PO PRN (16:18)
[2018-03-25] MEDS ORDERED: ONDANSETRON INJ 2 MG/ML 2 ML VIAL IV PRN (16:18)
[2018-03-25] MEDS ORDERED: GLUCAGON FOR INJ 1 MG VIAL SQ PRN (16:18)
[2018-03-25] MEDS ORDERED: BUMETANIDE 2 MG in SYRINGE 0 ML IV ONE (17:00)
[2018-03-25] MEDS ORDERED: FUROSEMIDE 100 MG in DEXTROSE 5% 90 ML IV SCH (17:00)
[2018-03-25 17:35] LABS: T4 Free Thyroxine 0.87 ng/dl (0.8-1.6)
[2018-03-25] MEDS: GEMFIBROZIL 600 MG TAB PO SCH (18:03)
[2018-03-25] MEDS: INSULIN ASPART 100 UNITS/ML 3 ML PEN SC SCH ×2 (18:06→21:28)
[2018-03-25] MEDS: BUMETANIDE 10 MG in DEXTROSE 5% 10 ML IV SCH (18:22)
[2018-03-25] MEDS ORDERED: NON-FORMULARY MEDICATION (Glucosamine-Chondroitin [Osteo Bi-Flex] 1 TAB) PO SCH (21:00)
[2018-03-25] MEDS ORDERED: POTASSIUM CHLORIDE 10 MEQ / 100ML WTR IV SCH (21:15)
[2018-03-25] MEDS: POTASSIUM CHLORIDE / WTR 10 MEQ/100 ML PLCT IV SCH ×3 (21:24→23:26)
[2018-03-25] MEDS: EZETIMIBE 10 MG TABLET PO SCH (21:25)
[2018-03-25] MEDS: POTASSIUM CHLORIDE 20 MEQ TABCR PO SCH ×2 (21:27)
[2018-03-25] MEDS: diazePAM 5 MG TABLET PO PRN (21:32)
[2018-03-25] MEDS: INSULIN GLARGINE 100 UNIT/ML VIAL SC SCH (21:32)
[2018-03-26] MEDS: TROSPIUM ~ ORDER AWAITING ACTION SCH ×3 (00:37→16:33)
[2018-03-26] MEDS: LEVOTHYROXINE SODIUM 175 MCG TABLET PO SCH (06:46)
[2018-03-26 07:32] LABS: Hematocrit (blood only) 23.4 % (37-47); Hemoglobin 7.4 g/dL (12.0-16.0); Mean Corpuscular Hgb Conc 31.6 g/dL (32-36); Mean Platelet Volume 9.2 fL (7.4-10.4); Platelet Count 227 K/uL (130-400); RDW Coefficient of Variation 16.6 % (11.5-14.5); RDW Standard Deviation 52.7 fL (36.4-46.3); Red Blood Count 2.69 M/uL (4.2-5.4); White Blood Count 5.07 K/uL (4.8-10.8)
[2018-03-26] MEDS: POTASSIUM CHLORIDE 20 MEQ TABCR PO SCH ×4 (08:00→22:06)
[2018-03-26] MEDS: DIGOXIN 0.125 MG TAB PO SCH (08:00)
[2018-03-26] MEDS: PANTOprazole 40 MG TAB PO SCH (08:00)
[2018-03-26] MEDS: MONTELUKAST SODIUM 10 MG TABLET PO SCH (08:01)
[2018-03-26] MEDS: FEXOFENADINE HCL 180 MG TAB PO SCH (08:02)
[2018-03-26] MEDS: METOPROLOL SUCC 50MG EXT REL TAB PO SCH (08:02)
[2018-03-26] MEDS: GEMFIBROZIL 600 MG TAB PO SCH ×2 (08:02→16:33)
[2018-03-26] MEDS: SACCHAROMYCES BOULARDII 250 MG CAP PO SCH (08:02)
[2018-03-26] MEDS: INSULIN ASPART 100 UNITS/ML 3 ML PEN SC SCH ×4 (08:06→22:09)
[2018-03-26] MEDS: INSULIN GLARGINE 100 UNIT/ML VIAL SC SCH ×2 (08:07→22:10)
[2018-03-26 08:12] LABS: Estimated Average Glucose 120 mg/dl
[2018-03-26 08:29] LABS: BUN Creatinine Ratio 38.2 (10-20); Calcium 8.1 mg/dl (8.5-10.1); Est GFR (African American) 18.8; Est GFR (Non-African American) 16.2; Potassium 3.1 mmol/L (3.5-5.1)
--- NOTE | 2018-03-26 10:05 | Consultation Report ---
DATE OF CONSULTATION: 03/26/2018 HEMATOLOGY CONSULTATION REASON FOR CONSULTATION: Multifactorial anemia. HISTORY OF PRESENT ILLNESS: Crystal is a pleasant 77-year-old female well known to [facility], currently under my management for a multifactorial anemia. Crystal has had a plethora of medical problems and frequent hospitalizations over the past several months. Most recently, presented to [facility] with hemoglobin in the 5 g/dL range. She also reports melena of stools. This patient is on chronic anticoagulation because of metallic valve. Apparently, more concerning was increase in her lower extremity edema and exacerbation of congestive failure. She is on potent loop diuretic which Crystal believes has been ineffective. She generally receives erythropoietin support through our office, last administered on March 05. The patient has not had supplemental iron since October of 2017. Clinically, she is feeling better, but as the patient stated "I will not leave the hospital until all the fluid has been removed from my legs." Primary service is requesting assistance for Crystal's anemia in light of the fact that she is suffering through an exacerbation of CHF and therefore aggressive transfusional support may result in volume overload. PAST MEDICAL HISTORY: Includes multifactorial anemia including anemia of chronic renal insufficiency, chronic disease and iron deficiency. She also suffers from pulmonary hypertension, atrial fibrillation, hypothyroidism, diabetes mellitus, cirrhosis of the liver, depression, hypokalemia, and lumbar compression fracture. MEDICATIONS: Home medications are extensive. Florastor 250 mg p.o. daily, cholecalciferol 1000 units p.o. t.i.d., cyanocobalamin 1000 mcg p.o. daily, diazepam 5 mg p.o. b.i.d. p.r.n., Voltaren gel 1 application topically q.i.d. p.r.n., digoxin 125 mcg p.o. daily, Zetia 10 mg p.o. at bedtime, Vickie 180 mg p.o. daily, gemfibrozil 600 mg p.o. b.i.d., NovoLog insulin p.r.n. daily, levothyroxine 175 mcg p.o. daily, Toprol-XL 100 mg p.o. daily, Singulair 10 mg p.o. daily, paroxetine 100 mg p.o. daily, trospium 20 mg p.o. daily, insulin Glargine 20-60 units subQ q.a.m. and p.m., hydralazine 25 mg p.o. b.i.d., Bumex 4 mg p.o. daily, hydrocortisone topically apply q.i.d., lidocaine 1 transdermal patch q.a.m. to affected area, metolazone 5 mg p.o. 3 times weekly p.r.n., Protonix 40 mg p.o. daily, potassium chloride 20 mEq p.o. b.i.d., ranitidine 150 mg p.o. b.i.d., ipratropium/albuterol nebulizer inhaled q.i.d., warfarin 3 mg p.o. 4 times weekly and 4 mg p.o. 3 times weekly, Bumex 6 mg p.o. q.a.m. ALLERGIES: NUMEROUS INCLUDING PENICILLINS, DILTIAZEM, LEVOFLOXACIN, MOXIFLOXACIN, ASPIRIN, DOXYCYCLINE, ATORVASTATIN, BACTRIM, NORTRIPTYLINE, NONSTEROIDAL ANTI-INFLAMMATORIES, QUINIDINE, SULFA DRUGS, CLONIDINE, HYDROCODONE. FAMILY HISTORY: Positive for diabetes mellitus and hypertension. SOCIAL HISTORY: The patient is . Her spouse resides at [facility]. She is a nonsmoker, nondrinker. REVIEW OF SYSTEMS: As per HPI most notably for bilateral lower extremity edema, generalized weakness, dyspnea on exertion, shortness of breath. She is maintaining her weight and appetite. SKIN: She suffers from stasis dermatitis involving her lower extremities, but no acute dermatoses described. HEENT: Negative for headaches, lightheadedness or dizziness. No acute visual or hearing deficits, she wears corrective lenses, however. No sinus symptoms, sore throat or dysphagia. LYMPH: No history of lymphoproliferative disease. CARDIAC: Positive history of coronary artery disease and CHF, status post metallic valve on current anticoagulation. No current angina or palpitations. PULMONARY: She suffers from COPD, requires bronchodilators and inhaled steroids on occasion. I do not believe she is oxygen dependent. No cough or hemoptysis. GASTROINTESTINAL: Positive for melena stools as reported by the Emergency Room. No abdominal pain, no nausea or vomiting otherwise. GENITOURINARY: No hematuria, dysuria, urinary incontinence. PSYCHIATRIC: Positive for depression. ENDOCRINE: Positive for diabetes mellitus and hypothyroidism. NEUROLOGIC: Negative for seizure, stroke, or migraine headache. HEMATOLOGIC: Again, Crystal has a longstanding history of multifactorial anemia. PHYSICAL EXAMINATION: GENERAL: She is a very pleasant 77-year-old female patient in no acute distress. VITAL SIGNS: Temperature 36.9, pulse 72, respiratory rate 18, blood pressure 121/57. SKIN: Warm, dry, noncyanotic without petechiae, rash or ecchymosis. She has scattered senile purpura involving her upper extremities and evidence of stasis dermatitis of the lower extremities. HEENT: Atraumatic, normocephalic. Eyes: PERRLA, EOMI. Nares are patent. Throat is clear. Tongue midline. No buccal lesions or ulcerations. NECK: Supple. HEART: Metallic valve sounds heard. Regular rate and rhythm, otherwise. LUNGS: Diminished breath sounds in the posterior bases. ABDOMEN: Soft, nontender, nondistended, without palpable hepatosplenomegaly. EXTREMITIES: No clubbing, cyanosis or edema. NEUROLOGICALLY: She is awake, alert and oriented x3. Cranial nerves are grossly intact. LABORATORY DATA: WBC count 5070, hemoglobin 7.4, platelet count 227,000. PT 31.9 seconds, INR 3.4. Sodium 132, potassium 3.1, chloride 99, carbon dioxide 24, creatinine 2.75, BUN 105. Serum iron 20, albumin 2.8. TSH 4.8. IMPRESSION: 1. Exacerbation of congestive heart failure. 2. Exacerbation of multifactorial anemia. 3. Possible gastrointestinal bleeding. 4. Hypoalbuminemia. 5. Poorly controlled hypothyroidism. PLAN: I have been asked by the hospitalist service to look in on Crystal. She has had frequent hospitalizations over the past several months mainly because of congestive heart failure, but also management of her chronic anemia. Crystal last received erythropoietin through our office on 05 of March. Her last iron supplementation was administered back in October. Therefore, it would be reasonable to go ahead and provide her with iron sucrose 300 mg intravenously today and again within the next 24 hours. Additionally, Procrit 40,000 units subQ should be given to her as to ameliorate the need to transfuse her aggressively. Unfortunately, with what appears to be active gastrointestinal bleeding, I believe we have run into this issue before and gastroenterology (rightfully so) does not want to aggressively scope her because of comorbidies. She needs to maintain anticoagulation for her metallic valve, and therefore, I think we are pretty much forced into supporting her medically as best as we can. Therefore, I agree with current medical management, utilizing aggressive loop diuretic, monitoring urinary output, in addition to providing transfusional support, erythropoietin and iron supplementation. I will continue to periodically look in on Crystal. If you have any questions or concerns, feel free to contact me. Thank you very much for allowing me to participate in Crystal's care. CHARU
[2018-03-26] MEDS ORDERED: IRON SUCROSE (VENOFER) 100 MG/5 ML VIAL IV SCH (13:15)
[2018-03-26] MEDS ORDERED: IRON SUCROSE 300 MG in SODIUM CHLORIDE 0.9% 250 ML IV SCH (14:00)
[2018-03-26] MEDS ORDERED: EPOETIN ALFA 40,000 UNITS/ML VIAL SQ ONE (14:00)
[2018-03-26] MEDS: WARFARIN SOD 3 MG TAB PO SCH (16:32)
[2018-03-26] MEDS ORDERED: Nursing to Pharmacy Communication ONE (18:12)
--- NOTE | 2018-03-26 20:29 | Hospitalist Progress Note ---
Date of Service March 26, 2018 Assessment & Plan (1) Acute on chronic anemia: The patient has an acute worsening of her already mod-severe anemia. Her chronic anemia has been felt to be a combination of Fe Deficiency, anemia of CKD, and other factors. She has been supported with procrit, Fe infusions, and [facility] by Dr. Kaminski. Dr. Kaminski consulted today and recommended additional IV iron along with procrit; I appreciate his recommendations. Will repeat her CBC in the am. Will likely repeat the IV iron tomorrow. May need additional PRBCs tomorrow. The acute drop could be occult GI blood loss although patient has not seen on melena or BRBPR. Would try to keep Hb 7.5 to 8. Present on Admission?: Yes (2) Iron deficiency: IV iron today then again tomorrow. Present on Admission?: Yes (3) Acute on chronic right-sided congestive heart failure: Decompensated cor pulmonale. Currently on bumex drip. Adjust as needed. Her volume status has become incredibly challenging in the face of worsening renal function, severe anemia, cirrhosis, etc. (4) Pulmonary hypertension: (5) CKD (chronic kidney disease) stage 4, GFR 15-29 ml/min: most recent creatinine baseline has been about 2.6 to 2.8. BMP in am. (6) Essential hypertension: (7) S/P placement of cardiac pacemaker: (8) Diabetes mellitus: adjust insulins as necessary. (9) Atrial fibrillation: remains on coumadin. (10) Asthma: (11) COPD (chronic obstructive pulmonary disease): without exacerbation at this time. (12) Pleural effusion, right: chronic pleurX catheter in place. drain daily. fluid is transudative. 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 at risk of hepatic encephalopathy. (14) Hypothyroidism: cont synthroid. (15) Hypokalemia: due to diuretic usage. replace, repeat level AM. (16) Hyponatremia: 2nd to diuretics, renal dysfunction, etc stable (17) H/O mitral valve replacement with mechanical valve: INR goal 2.5 to 3.5. resume coumadin today. INR in am. (18) DVT prophylaxis: coumadin Subjective patient with numerous complaints during the visit today these include -- extreme fatigue, dyspnea, severe LE edema with associated pain , abdominal distension. she feels depressed. reports her is now in [facility]. she has not noted any overt melena or BRBPR. requests voltaren gel for her back. Constitutional: + fatigue and + weight gain; no fever, no chills and no anorexia Respiratory: + dyspnea and + dyspnea on exertion; no cough Cardiovascular: no chest pain Gastrointestinal: no abdominal pain Physical Exam 2 Vital Signs (Past 24 Hours): Last Vital Signs Temp 36.9 C 03/26/18 19:45 Pulse 67 03/26/18 19:45 Resp 18 03/26/18 19:45 BP 112/65 03/26/18 19:45 Pulse Ox 95 03/26/18 19:45 Constitutional: + ill appearing; no acute distress depressed ENMT: external ear and nose normal, oropharynx normal Respiratory: Auscultation: + diminished lung sounds (bases); no rales, no rhonchi and no wheezes Cardiovascular: Rate/Rhythm: regular rate and regular rhythm Heart Sounds: normal S1 and + murmur (2/6 systolic LLSB); + abnormal S2 (prominent split - seems fixed) Vessels: + JVD (to the jaw) and normal peripheral pulses Extremities: + edema (severe, at least 3+, to the knees b/l ) Gastrointestinal (Abdomen): Inspection/Auscultation: + abdomen distended and normal bowel sounds Percussion/Palpation: + hepatomegaly and + ascites; abdomen nontender Psychiatric: Orientation: alert and oriented x 3 Affect: + depressed affect Results & Data Laboratory Results Laboratory Results - last 24 hr 03/25/18 03/25/18 03/25/18 13:28 20:41 20:43 WBC RBC Hgb Hct MCV MCH MCHC RDW Std Deviation RDW Coeff of Marco Plt Count MPV Sodium Potassium Chloride Carbon Dioxide Anion Gap BUN Creatinine Est Cr Clr Drug Dosing Est GFR ( Amer) Est GFR (Non-Af Amer) BUN/Creatinine Ratio Glucose POC Glucose 367 H* 134 H Estimat Average Glucose Hemoglobin A1c Calcium Blood Type A Positive Antibody Screen POSITIVE A Antibody Identification Anti-c Crossmatch See Detail 03/25/18 03/26/18 03/26/18 20:43 07:16 07:16 WBC 5.07 RBC 2.69 L Hgb 7.4 L Hct 23.4 L MCV 87.0 MCH 27.5 MCHC 31.6 L RDW Std Deviation 52.7 H RDW Coeff of Marco 16.6 H Plt Count 227 MPV 9.2 Sodium 132 L Potassium 3.1 L Chloride 99 Carbon Dioxide 24 Anion Gap 9.0 BUN 105 H Creatinine 2.75 H Est Cr Clr Drug Dosing 17.0 Est GFR ( Amer) 18.8 Est GFR (Non-Af Amer) 16.2 BUN/Creatinine Ratio 38.2 H Glucose 77 POC Glucose 129 H Estimat Average Glucose Hemoglobin A1c Calcium 8.1 L Blood Type Antibody Screen Antibody Identification Crossmatch 03/26/18 03/26/18 03/26/18 07:16 07:37 11:41 WBC RBC Hgb Hct MCV MCH MCHC RDW Std Deviation RDW Coeff of Marco Plt Count MPV Sodium Potassium Chloride Carbon Dioxide Anion Gap BUN Creatinine Est Cr Clr Drug Dosing Est GFR ( Amer) Est GFR (Non-Af Amer) BUN/Creatinine Ratio Glucose POC Glucose 88 118 H Estimat Average Glucose 120 Hemoglobin A1c 5.8 H Calcium Blood Type Antibody Screen Antibody Identification Crossmatch 03/26/18 03/26/18 16:31 20:17 WBC RBC Hgb Hct MCV MCH MCHC RDW Std Deviation RDW Coeff of Marco Plt Count MPV Sodium Potassium Chloride Carbon Dioxide Anion Gap BUN Creatinine Est Cr Clr Drug Dosing Est GFR ( Amer) Est GFR (Non-Af Amer) BUN/Creatinine Ratio Glucose POC Glucose 97 128 H Estimat Average Glucose Hemoglobin A1c Calcium Blood Type Antibody Screen Antibody Identification Crossmatch _ (1) Diabetes mellitus Diabetes mellitus type: type 2 Diabetes mellitus terminal worker insulin use: with chcf use Diabetes mellitus complication status: with kidney complications Diabetes mellitus complication detail: with chronic kidney disease Diabetic retinopathy severity: Proliferative retinopathy type: Diabetes mellitus macular edema: Laterality: Chronic kidney disease stage: stage 4 (severe) Qualified Code(s): E11.22 - Type 2 diabetes mellitus with diabetic chronic kidney disease; N18.4 - Chronic kidney disease, stage 4 (severe); Z79.4 - termite exterminator helper (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 of insulin (2) Atrial fibrillation Atrial fibrillation type: chronic Qualified Code(s): I48.2 - Chronic atrial fibrillation (3) Asthma Asthma severity: unspecified severity Asthma persistence: unspecified Asthma complication type: uncomplicated Qualified Code(s): J45.909 - Unspecified asthma, uncomplicated (4) COPD (chronic obstructive pulmonary disease) COPD type: unspecified COPD Chronic bronchitis type: Emphysema type: Qualified Code(s): J44.9 - Chronic obstructive pulmonary disease, unspecified (5) Cirrhosis Hepatic cirrhosis type: other cirrhosis Ascites presence: Qualified Code(s) : K74.69 - Other cirrhosis of liver (6) Hypothyroidism Hypothyroidism type: acquired Qualified Code(s): E03.9 - Hypothyroidism, unspecified
[2018-03-26] MEDS: EZETIMIBE 10 MG TABLET PO SCH (22:07)
[2018-03-26] MEDS: DICLOFENAC SOD 1% GEL 100 GM TUBE EXT SCH (22:09)
[2018-03-26] MEDS: BUMETANIDE 10 MG in DEXTROSE 5% 10 ML IV SCH (22:11)
[2018-03-26] MEDS: diazePAM 5 MG TABLET PO PRN (22:12)
[2018-03-27] MEDS: ACETAMINOPHEN 325 MG TAB PO PRN (01:02)
[2018-03-27] MEDS: TROSPIUM ~ ORDER AWAITING ACTION SCH ×2 (01:02→08:39)
[2018-03-27] MEDS: LEVOTHYROXINE SODIUM 175 MCG TABLET PO SCH (06:17)
[2018-03-27 06:20] LABS: Hematocrit (blood only) 23.9 % (37-47); Hemoglobin 7.2 g/dL (12.0-16.0); Mean Corpuscular Hgb Conc 30.1 g/dL (32-36); Mean Corpuscular Volume 88.2 fL (80-100); Mean Platelet Volume 9.9 fL (7.4-10.4); Platelet Count 237 K/uL (130-400); RDW Coefficient of Variation 17.1 % (11.5-14.5); RDW Standard Deviation 54.4 fL (36.4-46.3); Red Blood Count 2.71 M/uL (4.2-5.4); White Blood Count 5.44 K/uL (4.8-10.8)
[2018-03-27 06:55] LABS: BUN Creatinine Ratio 32.3 (10-20); Calcium 7.9 mg/dl (8.5-10.1); Creatinine Clr Calc Pharmacy 15.2 ml/min; Est GFR (African American) 16.5; Est GFR (Non-African American) 14.2; Potassium 3.7 mmol/L (3.5-5.1)
[2018-03-27 07:07] LABS: INR 2.2 (0.9-1.1); Prothrombin Time 20.8 Seconds (9.0-12.0)
[2018-03-27] MEDS ORDERED: IRON SUCROSE (VENOFER) 100 MG/5 ML VIAL IV SCH (08:15)
[2018-03-27] MEDS ORDERED: IRON SUCROSE 300 MG in SODIUM CHLORIDE 0.9% 250 ML IV ONE (08:30)
[2018-03-27] MEDS: METOPROLOL SUCC 50MG EXT REL TAB PO SCH (08:40)
[2018-03-27] MEDS: DIGOXIN 0.125 MG TAB PO SCH (08:40)
[2018-03-27] MEDS: DICLOFENAC SOD 1% GEL 100 GM TUBE EXT SCH ×3 (08:40→21:48)
[2018-03-27] MEDS: PANTOprazole 40 MG TAB PO SCH (08:40)
[2018-03-27] MEDS: FEXOFENADINE HCL 180 MG TAB PO SCH (08:41)
[2018-03-27] MEDS: POTASSIUM CHLORIDE 20 MEQ TABCR PO SCH ×2 (08:41→16:13)
[2018-03-27] MEDS: SACCHAROMYCES BOULARDII 250 MG CAP PO SCH (08:42)
[2018-03-27] MEDS: MONTELUKAST SODIUM 10 MG TABLET PO SCH (08:43)
[2018-03-27] MEDS: GEMFIBROZIL 600 MG TAB PO SCH ×2 (08:44→21:46)
[2018-03-27] MEDS: INSULIN ASPART 100 UNITS/ML 3 ML PEN SC SCH ×4 (08:46→21:48)
[2018-03-27] MEDS: INSULIN GLARGINE 100 UNIT/ML VIAL SC SCH ×2 (08:46→21:50)
--- NOTE | 2018-03-27 13:23 | Consultation ---
Date of Consultation March 27, 2018 Assessment & Plan (1) End stage renal disease: Pt with worsening renal fxn and increasing edema, HD access requested by nephrology. Pt unfortunately ate 2 full meals today and would not tolerate permcath insertion without conscious sedation. Also of concern is the possibility of a central venous stenosis/occlusion due to the dilated chest/ shoulder veins and inability of IV team to thread R arm access for transfusions. After discussion with Dr Titus, recommends temporary HD catheter insertion today, with plans to replace to permcath early next week in OR with pt NPO. Will also obtain chest imaging to determine whether central venous stenosis is present. History of Present Illness Reason for Consultation: needs access for HD Attending Physician: Tariq Bradley History of Present Illness 77 yo f with multiple medical problems, including CKD IV, a fib, HTN, mechanical mitral valve on chronic AC, pacemaker, R sided heart failure, severe chronic anemia requiring frequent transfusions and procrit without clear source , DMII, liver cirrhosis, COPD, and chronic pleural effusion currently with PleurX catheter, admitted with acute anemia and now with worsening renal failure , seen in consultation today for insertion of catheter for initiation of HD. Pt admite worsening edema of BLE and SOB at rest, although O2 sats remain stable on room air. Pt admits fatigue/malaise. Denies CLARK, fever, chills, chest pain, abd pain, N/V, rest pain, claudication, other complaints. Pt states she usually undergoes IV/blood draw access in R arm d/t prior lymph node removal from L axilla. She states the "girls downstairs" were unable to get a venous access for her in R shoulder area d/t the catheter "ran into a valve." Allergies Allergy/AdvReac Type Severity Reaction Status Date / Time Penicillins Allergy Severe anaphylaxis Verified 03/25/18 14:30 30yrs ago, also broke out with sores diltiazem Allergy Unknown unknown Verified 03/25/18 14:30 levofloxacin Allergy Unknown UNKNOWN Verified 03/25/18 14:30 moxifloxacin Allergy Unknown UNKNOWN Verified 03/25/18 14:30 aspirin AdvReac Intermediate increased Verified 03/25/18 14:30 bleeding (on warfarin) doxycycline AdvReac Intermediate GI SYMPTOMS Verified 03/25/18 14:30 atorvastatin AdvReac Unknown & Crestor Verified 03/25/18 14:30 = muscle aches/pains Bactrim AdvReac Unknown CONFUSION Verified 11/10/17 17:54 nortriptyline AdvReac Unknown choking on Verified 03/25/18 14:30 food NSAIDS (Non-Steroidal AdvReac Unknown AVOID PER Verified 03/25/18 14:30 Anti-Inflamma CASE - [id number] quinidine AdvReac Unknown flu-like Verified 03/25/18 14:30 symptoms sulfamethoxazole AdvReac Unknown CONFUSION Verified 03/25/18 14:30 trimethoprim AdvReac Unknown CONFUSION Verified 03/25/18 14:30 clonidine AdvReac Unknown Verified 03/25/18 14:30 hydrocodone AdvReac Unknown Verified 03/25/18 14:30 Home Medications Home Medications Medication Instructions Recorded Confirmed Type Saccharomyces boulardii [Florastor] 250 mg PO DAILY 11/18/17 03/25/18 History cholecalciferol (vitamin D3) 1,000 unit PO TID 11/18/17 03/25/18 History [Vitamin D3] cyanocobalamin (vitamin B-12) 1,000 mcg PO DAILY 11/18/17 03/25/18 History [Vitamin B-12] diazepam 5 mg PO BID PRN 11/18/17 03/25/18 History diclofenac sodium [Voltaren] 1 applic TOPICAL QID PRN 11/18/17 03/25/18 History digoxin 125 mcg PO DAILY 11/18/17 03/25/18 History ezetimibe [Zetia] 10 mg PO HS 11/18/17 03/25/18 History fexofenadine [Vickie Allergy] 180 mg PO DAILY 11/18/17 03/25/18 History gemfibrozil 600 mg PO BID17 11/18/17 03/25/18 History insulin aspart U-100 [Novolog 0 unit SUBCUT DAILY 11/18/17 03/25/18 History U-100 Insulin aspart] levothyroxine [Synthroid] 175 mcg PO QAM 11/18/17 03/25/18 History metoprolol succinate [Toprol XL] 100 mg PO DAILY 11/18/17 03/25/18 History montelukast [Singulair] 10 mg PO DAILY 11/18/17 03/25/18 History pyridoxine (vitamin B6) 100 mg PO DAILY 11/18/17 03/25/18 History trospium 20 mg PO DAILY 11/18/17 03/25/18 History insulin glargine 20 - 60 units SUBCUT AMPM 11/24/17 03/25/18 History hydralazine 25 mg tablet 25 mg PO BID tab 12/03/17 03/25/18 History bumetanide 4 mg PO QPM 12/23/17 03/25/18 History hydrocortisone 1 applic EXT QID #15 g 01/01/18 03/25/18 Rx lidocaine 1 patch TRANSDERMAL QAM #1 ea 01/01/18 03/25/18 Rx metolazone 5 mg PO 3XWK PRN #30 tab 01/01/18 03/25/18 Rx pantoprazole 40 mg PO QAM #30 tab 01/01/18 03/25/18 Rx potassium chloride 20 meq PO BID #60 tab 01/01/18 03/25/18 Rx ranitidine HCl 150 mg PO BID #60 tab 01/01/18 03/25/18 Rx ipratropium-albuterol 0.5 mg-3 3 ml INH QID PRN 02/16/18 03/25/18 History mg(2.5 mg base)/3 mL nebulization soln glucosamine-chondroitin [Osteo 1 tab PO TID 03/12/18 03/25/18 History Bi-Flex] warfarin 3 mg PO 4XWK 03/12/18 03/25/18 History warfarin 4 mg tablet 4 mg PO 3XWK 03/15/18 03/25/18 History bumetanide 6 mg PO QAM 03/25/18 03/25/18 History Patient History Medical History Anticoagulated Compression fracture of lumbar vertebra Greater trochanteric bursitis of left hip Depression Iron deficiency Hypothyroidism CHF (congestive heart failure) Anemia (Acute) CKD (chronic kidney disease) stage 4, GFR 15-29 ml/min (Acute) Elevated BUN (Acute) Pulmonary hypertension (Chronic) Essential hypertension (Chronic) Cor pulmonale (chronic) (Chronic) Diabetes mellitus (Chronic 08/25/12) Atrial fibrillation (Chronic 08/25/12) Asthma (Chronic 08/25/12) Cirrhosis (Chronic) COPD (chronic obstructive pulmonary disease) (Chronic) Pleural effusion, right (Chronic) S/P R sided Pleur-X catheter by Dr. Cueva Cirrhosis (Chronic) Acute respiratory failure with hypoxia (Resolved) Cardiac pacemaker procedure (Resolved 10/31/12) Acute on chronic combined systolic and diastolic CHF (congestive heart failure) History of mitral valve replacement with mechanical valve On Coumadin therapy - follows with Dr. Araujo - goal INR 2.5-3.5 Dowd-Lee valve Hypertension Pacemaker Surgical History S/P placement of cardiac pacemaker Medtronic single-chamber permanent pacemaker. Unipolar lead. At [facility] Family History Other Diabetes mellitus HTN (hypertension) Social History marital status: Current Living Situation: Alone Current Living Situation Comment: has brought spouse, who has dementia, home from [place] Other Information That Helps Us Care for You: No Feels Safe at Home: Yes Safety Concerns: Feels Safe At This Time Smoking Status: Never smoker Hx Alcohol Use: No Hx Substance Use: No Beliefs That Will Affect Care: None Communication Ability: Effective Review of Systems Constitutional: + fatigue and + malaise; no fever, no chills, no sweats and no weight loss Eyes: no blind spots and no problem reported Ear, Nose, Mouth, Throat: no hearing loss and no sore throat Respiratory: + dyspnea and + dyspnea on exertion; no cough and no hemoptysis Cardiovascular: + edema; no chest pain, no palpitations, no syncope, no claudication and no problem reported Gastrointestinal: no abdominal pain, no early satiety, no nausea, no vomiting, no cramping, no change in bowel habits, no diarrhea/loose stools and no blood in stools Musculoskeletal: no back pain, no joint pain, no swelling and no muscle weakness Integumentary: no rash, no non-healing lesions, no skin ulcer, no wounds and no erythema Neurologic: no localized weakness, no generalized weakness, no paralysis, no loss of sensation, no tingling, no numbness, no paresthesia, no seizure-like activity, no syncope, no headache(s) and no confusion Psychiatric: as per Subjective / HPI Hematologic / Lymphatic: no easy bleeding, no easy bruising, no coagulopathy, no night sweats and no unexplained weight loss Physical Exam 2 Vital Signs (Past 24 Hours): Last Vital Signs Temp 36.2 C L 03/27/18 12:40 Pulse 67 03/27/18 12:40 Resp 16 03/27/18 12:40 BP 116/61 03/27/18 12:40 Pulse Ox 96 03/27/18 12:40 Constitutional: WD/WN, vitals as above well developed, well nourished, + ill appearing, + obese, + frail appearing, cooperative, comfortable, + lethargic and + edematous Eyes: PERRL, conjunctivae normal, anicteric sclerae EOM intact bilaterally ENMT: external ear and nose normal, oropharynx normal Ears: no hearing impairment Nose: no nasal discharge Neck: trachea midline, no thyromegaly no tracheal deviation, no neck crepitus and neck nontender Respiratory: + uses accessory muscles and able to speak in complete sentences ; no cough, not tachypneic and no audible wheezes Auscultation: + diminished lung sounds and + crackles; no rhonchi and no wheezes Cardiovascular: Rate/Rhythm: regular rate Heart Sounds: + click; no gallop Vessels: + carotid bruit, posterior tibial pulses present, dorsalis pedis pulses present, brachial pulses present and radial pulses present; no femoral bruit Extremities: normal capillary refill, + pedal edema, + edema and + varicosities Chest (Breasts): Chest: + pacemaker Gastrointestinal (Abdomen): Inspection/Auscultation: abdomen normal to inspection, normal bowel sounds and + abdominal edema; abdomen not distended Percussion/Palpation: abdomen soft; abdomen nontender, no guarding, abdomen not rigid and no abdominal mass Musculoskeletal: no cyanosis or clubbing, extremities motor strength 5/5 Head/Neck/Chest: normocephalic, head atraumatic, neck supple and + abnormal inspection of chest wall (appears to have JVD and visibly dilated chest/ shoulder veins) Extremities: full ROM of extremities, + abnormal strength and no clubbing Skin: no rashes, warm and dry + abnormal turgor, no rashes, no lesions and no ulcers Trauma: no hematoma and no puncture Neurologic: moves all extremities and awake; no focal motor deficits and not confused Speech / Cognition: no expressive aphasia and no receptive aphasia Motor/Sensory: no tremor and no sensory deficit Cranial Nerves: EOM intact bilaterally and normal facial strength Psychiatric: Orientation: alert, oriented x 3, oriented to person, oriented to place, oriented to time and cooperative Apperance: appropriately dressed, appropriately groomed and appeared stated age Affect: + depressed affect and + anxious affect Thought Process: goal directed thought process, linear/ logical thought process and clear/coherent thought process Cognition: recent memory grossly intact, remote memory grossly intact, attention grossly intact and language grossly intact Estimated Intelligence: average estimated intelligence Lymphatic: no lymphedema
[2018-03-27] MEDS ORDERED: SODIUM CHLORIDE 0.9% 1000ML 1,000 ML IV PRN (15:14)
--- NOTE | 2018-03-27 15:31 | Nephrology Consultation ---
Date of Consultation March 27, 2018 Assessment & Plan (1) End stage renal disease: Mrs. Morales presented to [facility] ED for evaluation of weakness and tense LE swelling limiting her ability to ambulate. She has severe pulmonary HTN resulting in R heart failure and cardiac cirrhosis. She has a chronic R Pleur- x catheter in place. Diuretic therapy has been met with worsening renal insufficiency and progressive azotemia. Patient is now agreeable to initiation of HD. Medical hx is also significant for chronic anemia requiring IV iron and BINH therapy. -- Will consult Dr. Titus for dialysis catheter insertion -- 1st run HD today. Orders entered into EMR and HD RN notified -- Consult discharge planning to set up IHD at [facility] and arrange transportation (2) Anemia: -- Dr. Kaminski has provided IV iron and SQ BINH -- Recommend transfusion to maintain Hgb > 8.0 (3) H/O mitral valve replacement with mechanical valve: -- On chronic anticoagulation therapy History of Present Illness Reason for Consultation: ESRD requiring intiation of HD Attending Physician: Tariq Bradley History of Present Illness Mrs. Morales is a 77 year old white female who is seen at the request of Dr. Bradley for evaluation of ESRD. Medical records in the EMR were reviewed and are summarized as follows: Mrs. Morales has had stage IV CKD w/ basline creatinine 2.0 (EGFR 28 cc/min). Previously she was managed in the [facility] Nephrology office. She has severe pulmonary HTN and R heart failure. Attempts at diuresis were met with worsening renal function. Mrs. Morales was last seen in my office 09/01. At that time we discussed the indications and benefits to vascular access placement and initiation of IHD. Patient voiced agreement but did not keep her Vascular Surgery appointment and was lost to Nephrology follow up. She was a "NO SHOW" for two subsequent office visits despite my office staff contacting her at home and scheduling at my request. Mrs. Morales medical history is also significant for cardiac cirrhosis, AODM, peripheral neuropathy, breast cancer s/p lumpectomy, MVR replacement w/ Dowd-Lee ball & cage valve (1985) and chronic anticoagulation therapy. She has suffered from recurrent anemia and has been receiving IV iron and BINH therapy from the [facility]. Mrs. Morales presented to [facility] ED 03/25 for evaluation of weakness and tense LE edema. With diuretic therapy her creatinine has risen to 3.0 and patient has become progressively azotemic. Mrs. Morales indicates that she does not wish to consider hospice care. She is now willing to start dialysis if it will improve her LE edema and allow her to ambulate and become more functional. Allergies Allergy/AdvReac Type Severity Reaction Status Date / Time Penicillins Allergy Severe anaphylaxis Verified 03/25/18 14:30 30yrs ago, also broke out with sores diltiazem Allergy Unknown unknown Verified 03/25/18 14:30 levofloxacin Allergy Unknown UNKNOWN Verified 03/25/18 14:30 moxifloxacin Allergy Unknown UNKNOWN Verified 03/25/18 14:30 aspirin AdvReac Intermediate increased Verified 03/25/18 14:30 bleeding (on warfarin) doxycycline AdvReac Intermediate GI SYMPTOMS Verified 03/25/18 14:30 atorvastatin AdvReac Unknown & Crestor Verified 03/25/18 14:30 = muscle aches/pains Bactrim AdvReac Unknown CONFUSION Verified 11/10/17 17:54 nortriptyline AdvReac Unknown choking on Verified 03/25/18 14:30 food NSAIDS (Non-Steroidal AdvReac Unknown AVOID PER Verified 03/25/18 14:30 Anti-Inflamma CASE - [id number] quinidine AdvReac Unknown flu-like Verified 03/25/18 14:30 symptoms sulfamethoxazole AdvReac Unknown CONFUSION Verified 03/25/18 14:30 trimethoprim AdvReac Unknown CONFUSION Verified 03/25/18 14:30 clonidine AdvReac Unknown Verified 03/25/18 14:30 hydrocodone AdvReac Unknown Verified 03/25/18 14:30 Home Medications Home Medications Medication Instructions Recorded Confirmed Type Saccharomyces boulardii [Florastor] 250 mg PO DAILY 11/18/17 03/25/18 History cholecalciferol (vitamin D3) 1,000 unit PO TID 11/18/17 03/25/18 History [Vitamin D3] cyanocobalamin (vitamin B-12) 1,000 mcg PO DAILY 11/18/17 03/25/18 History [Vitamin B-12] diazepam 5 mg PO BID PRN 11/18/17 03/25/18 History diclofenac sodium [Voltaren] 1 applic TOPICAL QID PRN 11/18/17 03/25/18 History digoxin 125 mcg PO DAILY 11/18/17 03/25/18 History ezetimibe [Zetia] 10 mg PO HS 11/18/17 03/25/18 History fexofenadine [Vickie Allergy] 180 mg PO DAILY 11/18/17 03/25/18 History gemfibrozil 600 mg PO BID17 11/18/17 03/25/18 History insulin aspart U-100 [Novolog 0 unit SUBCUT DAILY 11/18/17 03/25/18 History U-100 Insulin aspart] levothyroxine [Synthroid] 175 mcg PO QAM 11/18/17 03/25/18 History metoprolol succinate [Toprol XL] 100 mg PO DAILY 11/18/17 03/25/18 History montelukast [Singulair] 10 mg PO DAILY 11/18/17 03/25/18 History pyridoxine (vitamin B6) 100 mg PO DAILY 11/18/17 03/25/18 History trospium 20 mg PO DAILY 11/18/17 03/25/18 History insulin glargine 20 - 60 units SUBCUT AMPM 11/24/17 03/25/18 History hydralazine 25 mg tablet 25 mg PO BID tab 12/03/17 03/25/18 History bumetanide 4 mg PO QPM 12/23/17 03/25/18 History hydrocortisone 1 applic EXT QID #15 g 01/01/18 03/25/18 Rx lidocaine 1 patch TRANSDERMAL QAM #1 ea 01/01/18 03/25/18 Rx metolazone 5 mg PO 3XWK PRN #30 tab 01/01/18 03/25/18 Rx pantoprazole 40 mg PO QAM #30 tab 01/01/18 03/25/18 Rx potassium chloride 20 meq PO BID #60 tab 01/01/18 03/25/18 Rx ranitidine HCl 150 mg PO BID #60 tab 01/01/18 03/25/18 Rx ipratropium-albuterol 0.5 mg-3 3 ml INH QID PRN 02/16/18 03/25/18 History mg(2.5 mg base)/3 mL nebulization soln glucosamine-chondroitin [Osteo 1 tab PO TID 03/12/18 03/25/18 History Bi-Flex] warfarin 3 mg PO 4XWK 03/12/18 03/25/18 History warfarin 4 mg tablet 4 mg PO 3XWK 03/15/18 03/25/18 History bumetanide 6 mg PO QAM 03/25/18 03/25/18 History Patient History Medical History Anticoagulated Compression fracture of lumbar vertebra Greater trochanteric bursitis of left hip Depression Iron deficiency Hypothyroidism CHF (congestive heart failure) Anemia (Acute) CKD (chronic kidney disease) stage 4, GFR 15-29 ml/min (Acute) Elevated BUN (Acute) Pulmonary hypertension (Chronic) Essential hypertension (Chronic) Cor pulmonale (chronic) (Chronic) Diabetes mellitus (Chronic 08/25/12) Atrial fibrillation (Chronic 08/25/12) Asthma (Chronic 08/25/12) Cirrhosis (Chronic) COPD (chronic obstructive pulmonary disease) (Chronic) Pleural effusion, right (Chronic) S/P R sided Pleur-X catheter by Dr. Cueva Cirrhosis (Chronic) Acute respiratory failure with hypoxia (Resolved) Cardiac pacemaker procedure (Resolved 10/31/12) Acute on chronic combined systolic and diastolic CHF (congestive heart failure) History of mitral valve replacement with mechanical valve On Coumadin therapy - follows with Dr. Araujo - goal INR 2.5-3.5 Dowd-Lee valve Hypertension Pacemaker Surgical History S/P placement of cardiac pacemaker Medtronic single-chamber permanent pacemaker. Unipolar lead. At [facility] Family History Other Diabetes mellitus HTN (hypertension) Social History marital status: Current Living Situation: Alone Current Living Situation Comment: [facility], who has [facility] Other Information That Helps Us Care for You: No Feels Safe at Home: Yes Safety Concerns: Feels Safe At This Time Smoking Status: Never smoker Hx Alcohol Use: No Hx Substance Use: No Beliefs That Will Affect Care: None Communication Ability: Effective Review of Systems Constitutional: no fever Respiratory: + dyspnea on exertion Cardiovascular: + edema (tense LE swelling limiting her ability to walk); no chest pain Gastrointestinal: + nausea; no vomiting Physical Exam 2 Vital Signs (Past 24 Hours): Last Vital Signs Temp 36.2 C L 03/27/18 12:40 Pulse 67 03/27/18 12:40 Resp 16 03/27/18 12:40 BP 116/61 03/27/18 12:40 Pulse Ox 96 03/27/18 12:40 Constitutional: + obese (chronically ill appearing) Eyes: PERRL, conjunctivae normal, anicteric sclerae Neck: trachea midline, no thyromegaly Respiratory: no respiratory distress Auscultation: + rales (at the bases bilaterally) Cardiovascular: Rate/Rhythm: regular rate Vessels: + JVD (to the angle of the jaw while seated upright) Extremities: + edema (tense bilateral LE edema ) Gastrointestinal (Abdomen): Inspection/Auscultation: + abdomen distended and normal bowel sounds Results & Data Laboratory Results Laboratory Tests 03/27/18 03/27/18 05:46 05:46 WBC 5.44 Hgb 7.2 L Hct 23.9 L Plt Count 237 Sodium 134 L Potassium 3.7 D Chloride 101 Carbon Dioxide 24 BUN 99 H Creatinine 3.06 H D Glucose 72 _ (1) Anemia Anemia type: unspecified type Bone marrow failure anemia type: Chronic kidney disease stage: Folate deficiency anemia type: Hemolytic anemia type: Iron deficiency anemia type: Other causes of anemia: Vitamin B12 deficiency anemia type: Qualified Code(s): D64.9 - Anemia, unspecified
[2018-03-27] MEDS ORDERED: HEPARIN SOD (PORCINE) 5,000 UNITS/ML VIAL ONE (15:33)
[2018-03-27] MEDS ORDERED: LIDOCAINE HCL 1% 20 ML VIAL ONE (15:34)
--- NOTE | 2018-03-27 15:36 | History & Physical Bridge Note ---
Date of Service March 27, 2018 History & Physical Bridge Note Patient for a temp dialysis catheter today due to not being NPO. Will place permcath friday in the am. I have discussed the risks options and benefits of the procedure with the patient. The patient understands the risks options and benefits and agrees to the procedure. I have examined the patient, reviewed the History & Physical and in the interval since the performance of the History & Physical I have noted the following changes of clinical significance: no changes noted
[2018-03-27] MEDS ORDERED: CLINDAMYCIN 600 MG/54 ML BAG IV STA (15:37)
[2018-03-27] MEDS ORDERED: CLINDAMYCIN 600 MG/54 ML D5W IV ONE (15:38)
[2018-03-27] MEDS ORDERED: WARFARIN SOD 6 MG TAB PO ONE (16:00)
--- NOTE | 2018-03-27 16:17 | Post Operative Brief Note ---
Immediate Post Op Note v1 Date of Surgery March 27, 2018 Pre & Post Diagnosis Operation Date: 03/27/18 15:20 Pre-Op Diagnosis: Acute Kidney Injury Post-Op Diagnosis: Acute Kidney Injury Operation Date: 03/30/18 11:10 <No data on this case meets the specified criteria> Procedure Operation Date: 03/27/18 15:20 Actual Procedures p Insertion of Temporary Dialysis Catheter, Ultrasound Localization of Right Femoral Vein, Fluoroscopy for Positioning(Right) - Teodoro Titus MD Operation Date: 03/30/18 11:10 <No data on this case meets the specified criteria> Surgeon Teodoro Titus MD Special Technical Operations Officer Russell Earl MD Estimated Blood Loss 5 Findings Consistent with Post-Op Diagnosis Anesthesia Type Local Complications none Disposition Accompanied Patient To Recovery: No Disposition: Recovery Room
--- NOTE | 2018-03-27 16:17 | Operative Report ---
Post Operative Report Pre & Post Diagnosis Operation Date: 03/27/18 15:20 Pre-Op Diagnosis: Acute Kidney Injury Post-Op Diagnosis: Acute Kidney Injury Operation Date: 03/30/18 11:10 <No data on this case meets the specified criteria> Procedure Operation Date: 03/27/18 15:20 Actual Procedures p Insertion of Temporary Dialysis Catheter, Ultrasound Localization of Right Femoral Vein, Fluoroscopy for Comfirmation(Right) - Teodoro Titus MD Operation Date: 03/30/18 11:10 <No data on this case meets the specified criteria> Surgeon Teodoro Titus MD Board Certified Music Therapist Mel Earl MD Estimated Blood Loss 5 Findings Consistent with Post-Op Diagnosis Specimens None Anesthesia Type Local Complications none Disposition Accompanied Patient To Recovery: No Disposition: Recovery Room Indications 77 year old female with right heart failure and progressive renal failure, now in need of venous access for hemodialysis. Description of Procedure Patient was brought to the operating room and identified as Crystal Morales. She was transferred to the operating table in the supine position. Her right groin was prepped with ChloraPrep and draped in the usual sterile fashion. Under ultrasound guidance, the right common femoral vein was identified and noted to be patent and compressible. Local anesthesia was infiltrated in the subcutaneous tissues overlying the right groin. Ultrasound guidance was used to access the right common femoral vein with a needle with good blood return, after which a wire was advanced through the vein into the IVC. The needle was removed and a small skin jose was made. The tract was dilated and pressure held over the vein as the dialysis catheter was placed over the wire and advanced. The tip of the catheter was noted upon fluoroscopy to be in the common iliac vein. The catheter was secured into place with 3-0 nylon suture. It returned blood well and was flushed with saline and then heparinized saline. Patient tolerated the procedure well. Dr. Titus was present for the entire case. I attest to the content of the Intraoperative Record and any orders documented therein. Any exceptions are noted below.
--- NOTE | 2018-03-27 17:29 | Dialysis Progress Note ---
Date of Service March 27, 2018 Subjective Patient seen during HD. Femoral catheter functioning well. No complications noted Physical Exam 2 Vital Signs (Past 24 Hours): Last Vital Signs Temp 36.9 C 03/27/18 16:29 Pulse 61 03/27/18 16:45 Resp 20 03/27/18 16:13 BP 119/57 L 03/27/18 16:45 Pulse Ox 94 03/27/18 16:13
--- NOTE | 2018-03-27 20:05 | Hospitalist Progress Note ---
Date of Service March 27, 2018 Assessment & Plan (1) End stage renal disease: Patient has had progressive chronic kidney disease for some time. She has now reached ESRD status. She cannot effect an adequate diuresis despite copious amounts of diuretics. Her CHF is decompensated and BUN/Cr continue to worsen. After consulting Dr. Wong and following conversations with the patient she elected to initiate HD today. Dr. Titus placed temporary dialysis catheter. s/p first HD session tonight. She will receive a permcath next week. Appreciate nephrology and vascular surgery assistance. BMP in am. Stop bumex infusion. Stop supplemental K. Present on Admission?: Yes (2) Acute on chronic anemia: The patient has an acute worsening of her already mod-severe anemia. Her chronic anemia has been felt to be a combination of Fe Deficiency, anemia of CKD, and other factors. She has been [facility] with procrit, [facility] infusions[facility]. Kaminski. Dr. Kaminski consulted this admission & recommended additional IV iron along with procrit. She received both on 03/26/18. Hemoglobin is modestly less today. Will likely need an additional unit of PRBCs in the next 24 hours. Plan to repeat her IV iron tomorrow as well. (3) Iron deficiency: s/p venofer yesterday. will repeat venofer 300mg x 1 tomorrow as well. CBC in am. (4) Acute on chronic right-sided congestive heart failure: Decompensated cor pulmonale. Poor response to bumex drip in setting of ESRD. s/p initiation of HD today due to worsening volume status. (5) Pulmonary hypertension: severe, w/ resulting cor pulmonale. (6) Essential hypertension: continue outpatient BP meds. (7) S/P placement of cardiac pacemaker: pacer dependent. (8) Diabetes mellitus: control adequate at this time. (9) Atrial fibrillation: remains on coumadin. (10) Asthma: (11) COPD (chronic obstructive pulmonary disease): without exacerbation at this time. (12) Pleural effusion, right: chronic pleurX catheter in place. drain daily. fluid is transudative. fluid will likely improve now that HD has been initiated. 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 at risk of hepatic encephalopathy. no signs of such, however. (14) Hypothyroidism: cont synthroid. (15) Hypokalemia: resolved. since bumex will be stopped will also stop her K supplement. (16) Hyponatremia: 2nd to diuretics, renal dysfunction, etc (17) H/O mitral valve replacement with mechanical valve: INR goal 2.5 to 3.5. resumed coumadin on 03/26/18. INR now subtherapeutic. likely give an additional 1-2 mg of coumadin today. daily INR. (18) DVT prophylaxis: coumadin Subjective This am during my morning chart rounds I noted that the pt's UOP was not robust despite the bumex infusion. I also noted worsening BUN and Creatinine while on the bumex. I contacted Dr. Wong from nephrology and voiced my concerns about her volume overloaded state, the worsening renal function, and her poor response to bumex. Dr. Wong performed his consult and spoke extensively with Ms. Morales about the need for hemodiaysis in light of her volume overload. After much discussion the patient agreed to initiation of HD. Dr. Titus from [facility] was then contacted and placed a temporary dialysis catheter in the right femoral vein. I saw the patient while she was receiving HD. She was teary eyed. She stated "I wasn't ready to give up." Her and children know about her decision to start HD. Tele overnight with pacing only. Constitutional: + fatigue; no fever Respiratory: no cough Cardiovascular: no chest pain, no orthopnea and no paroxysmal nocturnal dyspnea Gastrointestinal: no abdominal pain Physical Exam 2 Vital Signs (Past 24 Hours): Last Vital Signs Temp 36.6 C 03/27/18 19:00 Pulse 66 03/27/18 19:00 Resp 18 03/27/18 19:00 BP 128/52 L 03/27/18 19:00 Pulse Ox 91 03/27/18 19:00 Constitutional: + ill appearing; no acute distress receiving hemodialysis ENMT: external ear and nose normal, oropharynx normal Respiratory: Auscultation: + diminished lung sounds (bases); no rales, no rhonchi and no wheezes Cardiovascular: Rate/Rhythm: regular rate and regular rhythm Heart Sounds: normal S1 and + murmur (2/6 systolic LLSB); + abnormal S2 (fixed and widely split; mechanical valve sound also present ) Vessels: + JVD (to the jaw) and normal peripheral pulses Extremities: + edema (severe, at least 3+, to the knees b/l ) Gastrointestinal (Abdomen): Inspection/Auscultation: + abdomen distended and normal bowel sounds Percussion/Palpation: + hepatomegaly and + ascites; abdomen nontender Psychiatric: Orientation: alert and oriented x 3 Affect: + depressed affect Results & Data Laboratory Results Laboratory Results - last 24 hr 03/25/18 03/26/18 03/27/18 13:28 20:17 05:46 WBC 5.44 RBC 2.71 L Hgb 7.2 L Hct 23.9 L MCV 88.2 MCH 26.6 MCHC 30.1 L RDW Std Deviation 54.4 H RDW Coeff of Marco 17.1 H Plt Count 237 MPV 9.9 PT INR Sodium Potassium Chloride Carbon Dioxide Anion Gap BUN Creatinine Est Cr Clr Drug Dosing Est GFR ( Amer) Est GFR (Non-Af Amer) BUN/Creatinine Ratio Glucose POC Glucose 128 H Calcium Blood Type A Positive Antibody Screen POSITIVE A Antibody Identification Anti-c Crossmatch See Detail 03/27/18 03/27/18 03/27/18 05:46 05:46 07:33 WBC RBC Hgb Hct MCV MCH MCHC RDW Std Deviation RDW Coeff of Marco Plt Count MPV PT 20.8 H INR 2.2 H Sodium 134 L Potassium 3.7 D Chloride 101 Carbon Dioxide 24 Anion Gap 9.0 BUN 99 H Creatinine 3.06 H D Est Cr Clr Drug Dosing 15.2 Est GFR ( Amer) 16.5 Est GFR (Non-Af Amer) 14.2 BUN/Creatinine Ratio 32.3 H Glucose 72 POC Glucose 91 Calcium 7.9 L Blood Type Antibody Screen Antibody Identification Crossmatch 03/27/18 12:07 WBC RBC Hgb Hct MCV MCH MCHC RDW Std Deviation RDW Coeff of Marco Plt Count MPV PT INR Sodium Potassium Chloride Carbon Dioxide Anion Gap BUN Creatinine Est Cr Clr Drug Dosing Est GFR ( Amer) Est GFR (Non-Af Amer) BUN/Creatinine Ratio Glucose POC Glucose 85 Calcium Blood Type Antibody Screen Antibody Identification Crossmatch _ (1) Diabetes mellitus Diabetes mellitus type: type 2 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 use Diabetes mellitus complication status: with kidney complications Diabetes mellitus complication detail: with chronic kidney disease Diabetic retinopathy severity: Proliferative retinopathy type: Diabetes mellitus macular edema: Laterality: Chronic kidney disease stage: stage 4 (severe) Qualified Code(s): E11.22 - Type 2 diabetes mellitus with diabetic chronic kidney disease; N18.4 - Chronic kidney disease, stage 4 (severe); Z79.4 - manager long term care (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 of insulin (2) Atrial fibrillation Atrial fibrillation type: chronic Qualified Code(s): I48.2 - Chronic atrial fibrillation (3) Asthma Asthma severity: unspecified severity Asthma persistence: unspecified Asthma complication type: uncomplicated Qualified Code(s): J45.909 - Unspecified asthma, uncomplicated (4) COPD (chronic obstructive pulmonary disease) COPD type: unspecified COPD Chronic bronchitis type: Emphysema type: Qualified Code(s): J44.9 - Chronic obstructive pulmonary disease, unspecified (5) Cirrhosis Hepatic cirrhosis type: other cirrhosis Ascites presence: Qualified Code(s) : K74.69 - Other cirrhosis of liver (6) Hypothyroidism Hypothyroidism type: acquired Qualified Code(s): E03.9 - Hypothyroidism, unspecified
[2018-03-27] MEDS: EZETIMIBE 10 MG TABLET PO SCH (21:45)
[2018-03-27 21:59] LABS: Hepatitis B Surface Antibody Non-Immune
[2018-03-27 22:10] LABS: Hepatitis B Surface Antigen Neg (Neg)
[2018-03-27] MEDS: diazePAM 5 MG TABLET PO PRN (22:20)
[2018-03-27] MEDS: WARFARIN SOD 4 MG TAB PO SCH (22:20)
[2018-03-28 00:42] LABS: BUN Creatinine Ratio 32.4 (10-20); Calcium 8.1 mg/dl (8.5-10.1); Creatinine Clr Calc Pharmacy 0.3 ml/min; Est GFR (African American) 17.3; Potassium 3.6 mmol/L (3.5-5.1)
[2018-03-28 00:45] LABS: Basophils # (auto) 0.02 K/uL (0-0.2); Basophils % (auto) 0.3 %; Eosinophils # (auto) 0.15 K/uL (0-0.5); Eosinophils % (auto) 2.1 %; Hemoglobin 7.6 g/dL (12.0-16.0); Immature Granulocytes # (auto) 0.04 K/uL (0.00-0.02); Immature Granulocytes % (auto) 0.6 %; Lymphocytes # (auto) 0.55 K/uL (1.2-3.4); Lymphocytes % (auto) 7.9 %; Mean Corpuscular Volume 88.6 fL (80-100); Mean Platelet Volume 9.6 fL (7.4-10.4); Monocytes # (auto) 1.32 K/uL (0.11-0.59); Monocytes % (auto) 18.9 %; Neutrophils # (auto) 4.92 K/uL (1.4-6.5); Neutrophils % (auto) 70.2 %; Platelet Count 226 K/uL (130-400); RDW Coefficient of Variation 17.2 % (11.5-14.5); RDW Standard Deviation 55.1 fL (36.4-46.3); Red Blood Count 2.71 M/uL (4.2-5.4)
[2018-03-28] MEDS ORDERED: LIDOCAINE/EPINEPHRINE 1% 20 ML VIAL INFIL ONE (00:55)
[2018-03-28] MEDS ORDERED: SODIUM CHLORIDE 0.9% 250 ML IV PRN (00:55)
[2018-03-28 01:02] LABS: Mean Corpuscular Hgb Conc 31.7 g/dL (32-36); Tear Drop Cells 1+
--- NOTE | 2018-03-28 02:01 | Procedure Note ---
Procedure Note Date of Service March 28, 2018 Time of Procedure: 0115 I was approached my attending physician and asked to evaluate recently placed RIGHT Groin temporary HD cath which has been reportedly bleeding for several hours s/p first round of HD this evening. On assessment, the patient is laying in the supine position with her RIGHT side slightly elevated with a pillow for comfort. She offers no substantial complaints at this time. The HD cath dressing is completely saturated with fresh blood. There are clots with fresh blood noted to the inguinal area which has seeped around the dressing. I am unable to appreciate any significant active bleeding with dressing currently in place. After discussion with nursing staff and patient, they had attempted pressure to the area as well as remaining in the supine position, which have both been ineffective to this point. I did place orders for lidocaine with epinephrine and collect equipment for sterile dressing change. I had nursing staff contact Dr. Titus in regards to concerns for possible significant bleeding. Prior to dressing change, cap, face mask, face shield, and sterile gloves were donned. The saturated dressing was removed to expose underlying catheter site. Dressing was completely saturated with large fibinous clots adhering to the catheter. Dressings and clots were gently removed. At this point, gloves were changed to new sterile gloves. The surrounding skin and catheter itself was prepped with chlorhexidine. Fenestrated sterile drape was applied over the catheter. There appeared to per persistent oozing of blood around the insertion point of the catheter as well as at the site of the medially placed retention suture. The area were dabbed several times with persistence of bleeding. At this point, lidocaine with epinephrine was superficially injected around the sutured site as well as around the catheter insertion point with close attention to avoid the catheter itself. The bleeding had resolved at this point. New BioPatch was applied to the affected area. Sterile 4x4s were applied to provide additional compressive support. Sterile Tegederm dressing was applied with close attention for complete seal around the area. Patient tolerated procedure well. No immediate complications were met. Nursing was provided instructions to avoid excessive movements of the affected extremity. Further orders per attending providers.
[2018-03-28] MEDS: TROSPIUM ~ ORDER AWAITING ACTION SCH ×4 (04:56→15:52)
[2018-03-28] MEDS: GEMFIBROZIL 600 MG TAB PO SCH ×3 (06:21→18:04)
[2018-03-28] MEDS: DICLOFENAC SOD 1% GEL 100 GM TUBE EXT SCH ×5 (06:21→20:54)
[2018-03-28] MEDS: LEVOTHYROXINE SODIUM 175 MCG TABLET PO SCH (07:14)
[2018-03-28 07:37] LABS: Hematocrit (blood only) 26.4 % (37-47); Hemoglobin 8.3 g/dL (12.0-16.0); Mean Corpuscular Hgb Conc 31.4 g/dL (32-36); Mean Platelet Volume 9.4 fL (7.4-10.4); Platelet Count 229 K/uL (130-400); RDW Coefficient of Variation 17.1 % (11.5-14.5)
[2018-03-28 08:07] LABS: BUN Creatinine Ratio 33.4 (10-20); Calcium 8.5 mg/dl (8.5-10.1); Creatinine Clr Calc Pharmacy 0.3 ml/min; Est GFR (African American) 17.6; Est GFR (Non-African American) 15.2; Potassium 3.5 mmol/L (3.5-5.1)
[2018-03-28] MEDS: MONTELUKAST SODIUM 10 MG TABLET PO SCH (09:04)
[2018-03-28] MEDS: PANTOprazole 40 MG TAB PO SCH (09:04)
[2018-03-28] MEDS: METOPROLOL SUCC 50MG EXT REL TAB PO SCH (09:04)
[2018-03-28] MEDS: DIGOXIN 0.125 MG TAB PO SCH (09:05)
[2018-03-28] MEDS: INSULIN GLARGINE 100 UNIT/ML VIAL SC SCH ×2 (09:06→20:51)
[2018-03-28] MEDS: FEXOFENADINE HCL 180 MG TAB PO SCH (09:07)
[2018-03-28] MEDS: SACCHAROMYCES BOULARDII 250 MG CAP PO SCH (09:07)
[2018-03-28] MEDS: NEPHROCAPS PO SCH (09:07)
[2018-03-28] MEDS: INSULIN ASPART 100 UNITS/ML 3 ML PEN SC SCH ×4 (09:09→20:52)
[2018-03-28] MEDS ORDERED: SODIUM CHLORIDE 0.9% 1000ML 1,000 ML IV PRN (09:20)
[2018-03-28 10:05] LABS: INR 1.9 (0.9-1.1); Prothrombin Time 18.5 Seconds (9.0-12.0)
[2018-03-28] MEDS ORDERED: OR MISCELLANEOUS MED ONE (11:35)
--- NOTE | 2018-03-28 11:39 | Dialysis Progress Note ---
Date of Service March 28, 2018 Assessment & Plan (1) End stage renal disease: Mrs. Morales presented to [facility] ED for evaluation of weakness and tense LE swelling limiting her ability to ambulate. She has severe pulmonary HTN resulting in R heart failure and cardiac cirrhosis. She has a chronic R Pleur- x catheter in place. Diuretic therapy has been met with worsening renal insufficiency and progressive azotemia. Patient is now agreeable to initiation of HD. Medical hx is also significant for chronic anemia requiring IV iron and BINH therapy. -- getting 2nd dialysis treatment today plan for 3 hours treatment, schedule for removal of temporary catheter and placement of tunneled dialysis catheter on Friday. dialysis catheter insertion -- received Epogen yesterday --check PTH and phosphate and start on phosphate binder if needed, encourage patient to increase his protein intake -- discharge planning as per social service to set up IHD at [facility] and arrange transportation Will follow (2) Anemia: -- Dr. Kaminski has provided IV iron and SQ BINH -- Recommend transfusion to maintain Hgb > 8.0 (3) H/O mitral valve replacement with mechanical valve: -- On chronic anticoagulation therapy Subjective Patient seen during HD. Femoral catheter functioning well. No specific complaints but overall continues to feel poorly feels tired as she was not able to sleep last night. Blood pressure remained stable. Physical Exam 2 Vital Signs (Past 24 Hours): Last Vital Signs Temp 36.9 C 03/28/18 10:35 Pulse 62 03/28/18 11:00 Resp 18 03/28/18 07:27 BP 96/42 L 03/28/18 11:00 Pulse Ox 93 03/28/18 07:27 Constitutional: WD/WN, vitals as above + ill appearing Respiratory: normal respiratory effort, lungs clear to auscultation Cardiovascular: RRR, no murmur, no edema Neurologic: moves all extremities Psychiatric: A+Ox3, euthymic affect _ (1) Anemia Anemia type: unspecified type Bone marrow failure anemia type: Chronic kidney disease stage: Folate deficiency anemia type: Hemolytic anemia type: Iron deficiency anemia type: Other causes of anemia: Vitamin B12 deficiency anemia type: Qualified Code(s): D64.9 - Anemia, unspecified
[2018-03-28] MEDS ORDERED: BUMETANIDE 4 MG in SYRINGE 0 ML IV ONE (15:15)
[2018-03-28] MEDS: WARFARIN SOD 3 MG TAB PO SCH (15:52)
--- NOTE | 2018-03-28 19:50 | Hospitalist Progress Note ---
Date of Service March 28, 2018 Assessment & Plan (1) End stage renal disease: Progressive CKD for some time, now reaching ESRD status. s/p dialysis catheter placement yesterday with first HD session on 03/27. Only had 1 hour of HD today due to clotting of her temporary catheter. She is volume overloaded despite the 2 brief HD sessions in the last 24 hours[address] I spoke with Dr. Oswald, and will give bumex 4mg IV x 1 since she still does make urine. Hopefully she will have some diuresis to help with her symptoms. Appreciate nephrology assistance. To have permcath placed sometime early this week. Present on Admission?: Yes (2) Acute on chronic anemia: The patient has an acute worsening of her already mod-severe anemia. Her chronic anemia has been felt to be a combination of Fe Deficiency, anemia of CKD, and other factors. She has been supported with procrit, Fe infusions, and [facility] by [facility]. Kaminski. Dr. Kaminski consulted this admission -- IV iron and procrit given this admission. She is also s/p 3 units of PRBCs this admission. Try to keep Hb 7.5 to 8. Will repeat her Fe infusion tomorrow as well. (3) Iron deficiency: s/p venofer this admission. plan to repeat tomorrow. Hb stable this AM and early this afternoon. CBC in am. (4) Acute on chronic right-sided congestive heart failure: With preserved EF. Decompensated cor pulmonale. Poor response to bumex drip in setting of ESRD earlier this stay. s/p initiation of HD 03/27/18 due to worsening volume status. Gave additional IV bumex this afternoon due to dialysis catheter issues today. (5) Pulmonary hypertension: severe, w/ resulting cor pulmonale. (6) Essential hypertension: continue outpatient BP meds. (7) S/P placement of cardiac pacemaker: pacer dependent. (8) Diabetes mellitus: control adequate at this time. (9) Atrial fibrillation: remains on coumadin. INR goal is 2.5 to 3.5 due to mechanical mitral valve. (10) Asthma: no exacerbation at this time. (11) COPD (chronic obstructive pulmonary disease): without exacerbation at this time. (12) Pleural effusion, right: chronic pleurX catheter in place. drain daily. 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 at risk of hepatic encephalopathy. observe for signs of such. (14) Hypothyroidism: cont synthroid. (15) Hypokalemia: resolved. (16) Hyponatremia: 2nd to diuretics, renal dysfunction, etc (17) H/O mitral valve replacement with mechanical valve: INR goal 2.5 to 3.5. INR subtherapeutic, but had bleeding overnight due to dialysis catheter. bleeding has stopped. continue coumadin as is. if she continues to have subtherapeutic levels consider heparin IV bridge. (18) DVT prophylaxis: coumadin spoke with son, Fidencio, by phone this evening. went over problems, plan of care, prognosis, etc. he and his family recognize that Ms. Morales continues to decline questions answered in detail Subjective saw patient following her HD session. she was visibly dyspneic. she did not look well. during the HD session she was able to tolerate about 1 hour and 1 liter was removed. at the hour vasu her HD catheter clotted and HD had to be terminated. throughout the visit with her she was quite despondent. she said "I'm not sure I made the right decision about dialysis" tele overnight with a. fib or pacing, mainly latter Constitutional: + fatigue Respiratory: + dyspnea Cardiovascular: + dyspnea on exertion and + orthopnea Gastrointestinal: no abdominal pain Physical Exam 2 Vital Signs (Past 24 Hours): Last Vital Signs Temp 36.6 C 03/28/18 15:15 Pulse 61 03/28/18 16:00 Resp 16 03/28/18 15:15 BP 133/56 L 03/28/18 15:15 Pulse Ox 98 03/28/18 15:15 Constitutional: + acute distress (dyspneic, tachypneic ) and + ill appearing ENMT: external ear and nose normal, oropharynx normal Respiratory: Auscultation: + diminished lung sounds (bases) and + rales Cardiovascular: Rate/Rhythm: regular rate and regular rhythm Heart Sounds: normal S1 and + murmur (2/6 systolic LLSB); + abnormal S2 (fixed and widely split; mechanical valve sound also present ) Vessels: + JVD (to the jaw) and normal peripheral pulses Extremities: + edema (severe, at least 3+, to the knees b/l -- no change) Gastrointestinal (Abdomen): Inspection/Auscultation: + abdomen distended and normal bowel sounds Percussion/Palpation: + hepatomegaly and + ascites; abdomen nontender Psychiatric: Orientation: alert and oriented x 3 Affect: + depressed affect Results & Data Laboratory Results Laboratory Results - last 24 hr 03/25/18 03/27/18 03/27/18 13:28 20:28 20:33 WBC RBC Hgb Hct MCV MCH MCHC RDW Std Deviation RDW Coeff of Marco Plt Count MPV Immature Gran % (Auto) Neut % (Auto) Lymph % (Auto) [place] % (Auto) Eos % (Auto) Baso % (Auto) Immature Gran # (Auto) Neut # (Auto) Lymph # (Auto) [place] # (Auto) Eos # (Auto) Baso # (Auto) Tear Drop Cells PT INR Sodium Potassium Chloride Carbon Dioxide Anion Gap BUN Creatinine Est Cr Clr Drug Dosing Est GFR ( Amer) Est GFR (Non-Af Amer) BUN/Creatinine Ratio Glucose POC Glucose 88 Calcium Hep Bs Antigen Neg Hep Bs Antibody Non-Immune Hep Bs Antibody, Quant 3.20 L Blood Type A Positive Antibody Screen POSITIVE A Antibody Identification Anti-c Crossmatch See Detail 03/28/18 03/28/18 03/28/18 00:16 00:16 07:20 WBC 7.00 6.60 RBC 2.71 L 3.00 L Hgb 7.6 L 8.3 L Hct 24.0 L 26.4 L MCV 88.6 88.0 MCH 28.0 27.7 MCHC 31.7 L 31.4 L RDW Std Deviation 55.1 H 54.0 H RDW Coeff of Marco 17.2 H 17.1 H Plt Count 226 229 MPV 9.6 9.4 Immature Gran % (Auto) 0.6 Neut % (Auto) 70.2 Lymph % (Auto) 7.9 [place] % (Auto) 18.9 Eos % (Auto) 2.1 Baso % (Auto) 0.3 Immature Gran # (Auto) 0.04 H Neut # (Auto) 4.92 Lymph # (Auto) 0.55 L [place] # (Auto) 1.32 H Eos # (Auto) 0.15 Baso # (Auto) 0.02 Tear Drop Cells 1+ PT INR Sodium 133 L Potassium 3.6 Chloride 100 Carbon Dioxide 22 Anion Gap 11.0 BUN 95 H Creatinine 2.94 H Est Cr Clr Drug Dosing 0.3 Est GFR ( Amer) 17.3 Est GFR (Non-Af Amer) 15.0 BUN/Creatinine Ratio 32.4 H Glucose 124 H POC Glucose Calcium 8.1 L Hep Bs Antigen Hep Bs Antibody Hep Bs Antibody, Quant Blood Type Antibody Screen Antibody Identification Crossmatch 03/28/18 03/28/18 03/28/18 07:20 07:20 07:43 WBC RBC Hgb Hct MCV MCH MCHC RDW Std Deviation RDW Coeff of Marco Plt Count MPV Immature Gran % (Auto) Neut % (Auto) Lymph % (Auto) [place] % (Auto) Eos % (Auto) Baso % (Auto) Immature Gran # (Auto) Neut # (Auto) Lymph # (Auto) [place] # (Auto) Eos # (Auto) Baso # (Auto) Tear Drop Cells PT Cancelled INR Cancelled Sodium 134 L Potassium 3.5 Chloride 101 Carbon Dioxide 22 Anion Gap 11.0 BUN 97 H Creatinine 2.90 H Est Cr Clr Drug Dosing 0.3 Est GFR ( Amer) 17.6 Est GFR (Non-Af Amer) 15.2 BUN/Creatinine Ratio 33.4 H Glucose 69 L POC Glucose 80 Calcium 8.5 Hep Bs Antigen Hep Bs Antibody Hep Bs Antibody, Quant Blood Type Antibody Screen Antibody Identification Crossmatch 03/28/18 03/28/18 03/28/18 09:45 12:34 13:49 WBC RBC Hgb 8.4 L Hct MCV MCH MCHC RDW Std Deviation RDW Coeff of Marco Plt Count MPV Immature Gran % (Auto) Neut % (Auto) Lymph % (Auto) [place] % (Auto) Eos % (Auto) Baso % (Auto) Immature Gran # (Auto) Neut # (Auto) Lymph # (Auto) [place] # (Auto) Eos # (Auto) Baso # (Auto) Tear Drop Cells PT 18.5 H INR 1.9 H Sodium Potassium Chloride Carbon Dioxide Anion Gap BUN Creatinine Est Cr Clr Drug Dosing Est GFR ( Amer) Est GFR (Non-Af Amer) BUN/Creatinine Ratio Glucose POC Glucose 123 H Calcium Hep Bs Antigen Hep Bs Antibody Hep Bs Antibody, Quant Blood Type Antibody Screen Antibody Identification Crossmatch 03/28/18 16:50 WBC RBC Hgb Hct MCV MCH MCHC RDW Std Deviation RDW Coeff of Marco Plt Count MPV Immature Gran % (Auto) Neut % (Auto) Lymph % (Auto) [place] % (Auto) Eos % (Auto) Baso % (Auto) Immature Gran # (Auto) Neut # (Auto) Lymph # (Auto) [place] # (Auto) Eos # (Auto) Baso # (Auto) Tear Drop Cells PT INR Sodium Potassium Chloride Carbon Dioxide Anion Gap BUN Creatinine Est Cr Clr Drug Dosing Est GFR ( Amer) Est GFR (Non-Af Amer) BUN/Creatinine Ratio Glucose POC Glucose 118 H Calcium Hep Bs Antigen Hep Bs Antibody Hep Bs Antibody, Quant Blood Type Antibody Screen Antibody Identification Crossmatch _ (1) Diabetes mellitus Diabetes mellitus type: type 2 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 Diabetes mellitus complication status: with kidney complications Diabetes mellitus complication detail: with chronic kidney disease Diabetic retinopathy severity: Proliferative retinopathy type: Diabetes mellitus macular edema: Laterality: Chronic kidney disease stage: stage 4 (severe) Qualified Code(s): E11.22 - Type 2 diabetes mellitus with diabetic chronic kidney disease; N18.4 - Chronic kidney disease, stage 4 (severe); 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.4 - 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 lineman (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 of insulin (2) Atrial fibrillation Atrial fibrillation type: chronic Qualified Code(s): I48.2 - Chronic atrial fibrillation (3) Asthma Asthma severity: unspecified severity Asthma persistence: unspecified Asthma complication type: uncomplicated Qualified Code(s): J45.909 - Unspecified asthma, uncomplicated (4) COPD (chronic obstructive pulmonary disease) COPD type: unspecified COPD Chronic bronchitis type: Emphysema type: Qualified Code(s): J44.9 - Chronic obstructive pulmonary disease, unspecified (5) Cirrhosis Hepatic cirrhosis type: other cirrhosis Ascites presence: Qualified Code(s) : K74.69 - Other cirrhosis of liver (6) Hypothyroidism Hypothyroidism type: acquired Qualified Code(s): E03.9 - Hypothyroidism, unspecified
[2018-03-28] MEDS: EZETIMIBE 10 MG TABLET PO SCH (20:51)
[2018-03-28] MEDS: diazePAM 5 MG TABLET PO PRN (23:29)
[2018-03-29] MEDS: TROSPIUM ~ ORDER AWAITING ACTION SCH ×4 (00:15→23:32)
[2018-03-29] MEDS: LEVOTHYROXINE SODIUM 175 MCG TABLET PO SCH (06:12)
[2018-03-29 07:46] LABS: Hematocrit (blood only) 24.8 % (37-47); Hemoglobin 7.5 g/dL (12.0-16.0); Mean Corpuscular Hgb Conc 30.2 g/dL (32-36); Mean Corpuscular Volume 89.9 fL (80-100); Mean Platelet Volume 9.5 fL (7.4-10.4); Platelet Count 195 K/uL (130-400); RDW Coefficient of Variation 17.5 % (11.5-14.5); RDW Standard Deviation 55.8 fL (36.4-46.3); Red Blood Count 2.76 M/uL (4.2-5.4); White Blood Count 5.42 K/uL (4.8-10.8)
[2018-03-29 07:52] LABS: INR 2.1 (0.9-1.1); Prothrombin Time 20.1 Seconds (9.0-12.0)
[2018-03-29 08:04] LABS: BUN Creatinine Ratio 32.1 (10-20); Calcium 8.2 mg/dl (8.5-10.1); Creatinine Clr Calc Pharmacy 16.8 ml/min; Est GFR (African American) 18.5; Phosphorus 3.7 mg/dl (2.5-4.9); Potassium 3.6 mmol/L (3.5-5.1)
[2018-03-29] MEDS: NEPHROCAPS PO SCH (08:18)
[2018-03-29] MEDS: METOPROLOL SUCC 50MG EXT REL TAB PO SCH (08:18)
[2018-03-29] MEDS: GEMFIBROZIL 600 MG TAB PO SCH ×2 (08:18→17:12)
[2018-03-29] MEDS: DIGOXIN 0.125 MG TAB PO SCH (08:18)
[2018-03-29] MEDS: PANTOprazole 40 MG TAB PO SCH (08:18)
[2018-03-29] MEDS: MONTELUKAST SODIUM 10 MG TABLET PO SCH (08:19)
[2018-03-29] MEDS: SACCHAROMYCES BOULARDII 250 MG CAP PO SCH (08:19)
[2018-03-29] MEDS: FEXOFENADINE HCL 180 MG TAB PO SCH (08:19)
[2018-03-29] MEDS: INSULIN GLARGINE 100 UNIT/ML VIAL SC SCH ×2 (08:19→20:35)
[2018-03-29] MEDS: INSULIN ASPART 100 UNITS/ML 3 ML PEN SC SCH ×4 (08:22→20:34)
[2018-03-29] MEDS: DICLOFENAC SOD 1% GEL 100 GM TUBE EXT SCH ×4 (08:24→20:32)
[2018-03-29] MEDS ORDERED: SODIUM CHLORIDE 0.9% 1000ML 1,000 ML IV PRN (09:56)
--- NOTE | 2018-03-29 11:40 | Nephrology Progress Note ---
Date of Service March 29, 2018 Assessment & Plan (1) End stage renal disease: Mrs. Morales presented to [facility] ED for evaluation of weakness and tense LE swelling limiting her ability to ambulate. She has severe pulmonary HTN resulting in R heart failure and cardiac cirrhosis. She has a chronic R Pleur- x catheter in place. Diuretic therapy has been met with worsening renal insufficiency and progressive azotemia. Patient is now agreeable to initiation of HD. Medical hx is also significant for chronic anemia requiring IV iron and BINH therapy. -- will give another dose of Bumex 4 mg today, no plan for dialysis today, schedule far temporary dialysis catheter removal of tunneled dialysis catheter tomorrow. Will dialysis after that. -- suggest checking hemoglobin in evening, may need blood transfusion if hemoglobin drops further. We need to give high dose of diuretics with transfusion in case she needs blood transfusion -- received Epogen yesterday -- start on calcitriol 0.25 mcg 3 times a week -- start on renal vitamin -- encourage patient to increase his protein intake -- discharge planning as per social service to set up IHD at [facility] and arrange transportation Will follow Subjective Crystal was seen in her room. Sleepy and lethergic but woke up easily and answered q. Feels tired and has been having cough. Hb dropped to 7.5. Blood pressure remained stable. Had only 1 h Dialysis yesterday system clotted temporary dialysis catheter was. She received Bumex 4 mg yesterday afternoon and had decent urine output. Currently volume status seems stable, no significant shortness of breath. Respiratory: + dyspnea on exertion Cardiovascular: + edema (tense LE swelling limiting her ability to walk); no chest pain Gastrointestinal: + nausea; no vomiting Physical Exam 2 Vital Signs (Past 24 Hours): Last Vital Signs Temp 36.7 C 03/29/18 07:24 Pulse 66 03/29/18 07:24 Resp 20 03/29/18 07:24 BP 102/36 L 03/29/18 07:24 Pulse Ox 97 03/29/18 07:24 Constitutional: WD/WN, vitals as above + ill appearing Respiratory: normal respiratory effort, lungs clear to auscultation Cardiovascular: RRR, no murmur, no edema Neurologic: moves all extremities Psychiatric: A+Ox3, euthymic affect
[2018-03-29] MEDS ORDERED: IRON SUCROSE (VENOFER) 100 MG/5 ML VIAL IV SCH (12:45)
[2018-03-29] MEDS ORDERED: IRON SUCROSE 300 MG in SODIUM CHLORIDE 0.9% 250 ML IV SCH (14:00)
[2018-03-29] MEDS: NYSTATIN POWDER 15GM BTL EXT SCH ×3 (14:13→20:31)
[2018-03-29] MEDS: WARFARIN SOD 3 MG TAB PO SCH (16:46)
--- NOTE | 2018-03-29 18:43 | Hospitalist Progress Note ---
Date of Service March 29, 2018 Assessment & Plan (1) End stage renal disease: Progressive CKD for some time, now reaching ESRD status. s/p dialysis catheter placement with first HD session on 03/27. 2nd HD session on 03/28 was cut short by clotting off of the catheter. Additional IV bumex given yesterday for pulmonary edema. plan - NPO after MN tonight for permcath placement tomorrow by Dr. Titus. hold coumadin - uncertain at which INR level Dr. Titus is comfortable with. repeat INR in the am. volume status - although hypervolemic, her pulmonary edema is better, and deferring on additional bumex today. Present on Admission?: Yes (2) Acute on chronic anemia: The patient has an acute worsening of her already mod-severe anemia. Her chronic anemia has been felt to be a combination of Fe Deficiency, anemia of CKD, and other factors. She has been supported with procrit, Fe infusions, [facility]. Kam[facility]. Dr. Kaminski consulted for recommendations. To date has had 3 units of PRBCs this admission. s/p 1 venofer infusion. will give another 300mg of venofer today. Try to keep Hb 7.5 to 8. Type/cross 1 unit of PRBCs in the event she needs blood tomorrow (has several Ab 's). CBC in am as well. Present on Admission?: Yes (3) Iron deficiency: see anemia above (4) Acute on chronic right-sided congestive heart failure: With preserved EF. Decompensated cor pulmonale. Poor response to bumex drip in setting of ESRD earlier this stay. s/p initiation of HD 03/27/18 due to worsening volume status. Gave additional IV bumex yesterday since HD session was cut short. Permcath placement tomorrow to continue HD. (5) Pulmonary hypertension: severe, w/ resulting cor pulmonale. (6) Essential hypertension: controlled. continue outpatient BP meds. (7) S/P placement of cardiac pacemaker: (8) Diabetes mellitus: control adequate at this time. (9) Atrial fibrillation: remains on coumadin. INR goal is 2.5 to 3.5 due to mechanical mitral valve. (10) Asthma: no exacerbation at this time. (11) COPD (chronic obstructive pulmonary disease): without exacerbation at this time. (12) Pleural effusion, right: chronic pleurX catheter in place x 1 year. drain daily. 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 at risk of hepatic encephalopathy. observe for signs of such. (14) Hypothyroidism: cont synthroid. (15) Hypokalemia: resolved. (16) Hyponatremia: 2nd to diuretics, renal dysfunction, etc stable today (17) H/O mitral valve replacement with mechanical valve: INR goal 2.5 to 3.5. She is subtherapeutic today, but is scheduled for permcath placement tomorrow. She has also had bleeding issues from the right groin since its insertion. Will not bridge with heparin at this time but if INR is persistently below goal of 2.5 then consider such. (18) DVT prophylaxis: coumadin spoke with son, Fidencio, by phone 03/28/18. went over problems, plan of care, prognosis, etc. he and his family recognize that Ms. Morales continues to decline questions answered in detail Subjective pt "feels better" today. less dyspnea. slept better last night. moving her bowels. eating well surprisingly. no issues with dialysis catheter in right groin overnight. (no bleeding) Constitutional: + fatigue Respiratory: no cough and no dyspnea Cardiovascular: no chest pain Gastrointestinal: no abdominal pain Genitourinary (Female): + vaginal itching Physical Exam 2 Vital Signs (Past 24 Hours): Last Vital Signs Temp 36.8 C 03/29/18 15:34 Pulse 70 03/29/18 16:39 Resp 20 03/29/18 15:34 BP 127/55 L 03/29/18 15:34 Pulse Ox 96 03/29/18 15:34 Constitutional: + ill appearing and + frail appearing; no acute distress looks a little better than yesterday ENMT: external ear and nose normal, oropharynx normal Respiratory: Auscultation: + diminished lung sounds (right base); no rales and no wheezes Cardiovascular: Rate/Rhythm: regular rate and regular rhythm Heart Sounds: normal S1 and + murmur (2/6 systolic LLSB); + abnormal S2 (fixed and split; mechanical valve sound ) Vessels: + JVD (to the jaw) and normal peripheral pulses Extremities: + edema (severe, at least 3+, to the knees b/l -- no change) Gastrointestinal (Abdomen): Inspection/Auscultation: + abdomen distended and normal bowel sounds Percussion/Palpation: + hepatomegaly and + ascites; abdomen nontender Skin: right groin - dialysis catheter w/o hematoma; vagina - minimal amount of irritation with odor (this portion of exam was supervised) Psychiatric: Orientation: alert and oriented x 3 Affect: + depressed affect Results & Data Laboratory Results Laboratory Results - last 24 hr 03/28/18 03/29/18 03/29/18 20:21 07:26 07:26 WBC 5.42 RBC 2.76 L Hgb 7.5 L Hct 24.8 L MCV 89.9 MCH 27.2 MCHC 30.2 L RDW Std Deviation 55.8 H RDW Coeff of Marco 17.5 H Plt Count 195 MPV 9.5 PT 20.1 H INR 2.1 H Sodium Potassium Chloride Carbon Dioxide Anion Gap BUN Creatinine Est Cr Clr Drug Dosing Est GFR ( Amer) Est GFR (Non-Af Amer) BUN/Creatinine Ratio Glucose POC Glucose 110 H Calcium Phosphorus PTH Intact 03/29/18 03/29/18 03/29/18 07:26 07:26 07:33 WBC RBC Hgb Hct MCV MCH MCHC RDW Std Deviation RDW Coeff of Marco Plt Count MPV PT INR Sodium 135 L Potassium 3.6 Chloride 101 Carbon Dioxide 22 Anion Gap 12.0 H BUN 89 H Creatinine 2.78 H Est Cr Clr Drug Dosing 16.8 Est GFR ( Amer) 18.5 Est GFR (Non-Af Amer) 16.0 BUN/Creatinine Ratio 32.1 H Glucose 86 POC Glucose 90 Calcium 8.2 L Phosphorus 3.7 PTH Intact 172.2 H 03/29/18 03/29/18 11:19 16:48 WBC RBC Hgb Hct MCV MCH MCHC RDW Std Deviation RDW Coeff of Marco Plt Count MPV PT INR Sodium Potassium Chloride Carbon Dioxide Anion Gap BUN Creatinine Est Cr Clr Drug Dosing Est GFR ( Amer) Est GFR (Non-Af Amer) BUN/Creatinine Ratio Glucose POC Glucose 188 H 100 H Calcium Phosphorus PTH Intact _ (1) Diabetes mellitus Diabetes mellitus type: type 2 Diabetes mellitus care home insulin use: with intermediate card tender use Diabetes mellitus complication status: with kidney complications Diabetes mellitus complication detail: with chronic kidney disease Diabetic retinopathy severity: Proliferative retinopathy type: Diabetes mellitus macular edema: Laterality: Chronic kidney disease stage: stage 4 (severe) Qualified Code(s): E11.22 - Type 2 diabetes mellitus with diabetic chronic kidney disease; N18.4 - Chronic kidney disease, stage 4 (severe); Z79.4 - intermediate card tender (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 of insulin (2) Atrial fibrillation Atrial fibrillation type: chronic Qualified Code(s): I48.2 - Chronic atrial fibrillation (3) Asthma Asthma severity: unspecified severity Asthma persistence: unspecified Asthma complication type: uncomplicated Qualified Code(s): J45.909 - Unspecified asthma, uncomplicated (4) COPD (chronic obstructive pulmonary disease) COPD type: unspecified COPD Chronic bronchitis type: Emphysema type: Qualified Code(s): J44.9 - Chronic obstructive pulmonary disease, unspecified (5) Cirrhosis Hepatic cirrhosis type: other cirrhosis Ascites presence: Qualified Code(s) : K74.69 - Other cirrhosis of liver (6) Hypothyroidism Hypothyroidism type: acquired Qualified Code(s): E03.9 - Hypothyroidism, unspecified
[2018-03-29] MEDS: EZETIMIBE 10 MG TABLET PO SCH (20:32)
[2018-03-29] MEDS: diazePAM 5 MG TABLET PO PRN (23:31)
[2018-03-30] MEDS: OXYCODONE HCL IR 5 MG TAB (IMMEDIATE RELEASE) PO PRN ×2 (03:11→13:02)
[2018-03-30 05:48] LABS: Hematocrit (blood only) 24.5 % (37-47); Hemoglobin 7.7 g/dL (12.0-16.0); Mean Corpuscular Hgb Conc 31.4 g/dL (32-36); Mean Corpuscular Volume 91.8 fL (80-100); Mean Platelet Volume 9.3 fL (7.4-10.4); Platelet Count 199 K/uL (130-400); RDW Coefficient of Variation 18.5 % (11.5-14.5); RDW Standard Deviation 57.7 fL (36.4-46.3); Red Blood Count 2.67 M/uL (4.2-5.4); White Blood Count 6.18 K/uL (4.8-10.8)
[2018-03-30 06:01] LABS: INR 2.1 (0.9-1.1); Prothrombin Time 20.4 Seconds (9.0-12.0)
[2018-03-30 06:24] LABS: BUN Creatinine Ratio 30.8 (10-20); Calcium 8.1 mg/dl (8.5-10.1); Creatinine Clr Calc Pharmacy 16.3 ml/min; Est GFR (African American) 17.8; Est GFR (Non-African American) 15.4; Potassium 3.9 mmol/L (3.5-5.1)
[2018-03-30] MEDS: LEVOTHYROXINE SODIUM 175 MCG TABLET PO SCH (06:29)
[2018-03-30] MEDS: TROSPIUM ~ ORDER AWAITING ACTION SCH ×3 (07:23→23:45)
[2018-03-30] MEDS: SACCHAROMYCES BOULARDII 250 MG CAP PO SCH (07:51)
[2018-03-30] MEDS: NEPHROCAPS PO SCH (07:51)
[2018-03-30] MEDS: MONTELUKAST SODIUM 10 MG TABLET PO SCH (07:51)
[2018-03-30] MEDS: PANTOprazole 40 MG TAB PO SCH (07:52)
[2018-03-30] MEDS: DIGOXIN 0.125 MG TAB PO SCH (07:52)
[2018-03-30] MEDS: FEXOFENADINE HCL 180 MG TAB PO SCH (07:53)
[2018-03-30] MEDS: DICLOFENAC SOD 1% GEL 100 GM TUBE EXT SCH ×4 (07:53→21:21)
[2018-03-30] MEDS: CALCITRIOL 0.25 MCG CAPSULE PO SCH (07:53)
[2018-03-30] MEDS: INSULIN ASPART 100 UNITS/ML 3 ML PEN SC SCH ×4 (07:55→20:55)
[2018-03-30] MEDS: INSULIN GLARGINE 100 UNIT/ML VIAL SC SCH ×2 (07:56→21:17)
[2018-03-30] MEDS: METOPROLOL SUCC 50MG EXT REL TAB PO SCH (07:58)
[2018-03-30] MEDS: GEMFIBROZIL 600 MG TAB PO SCH ×2 (08:14→19:25)
[2018-03-30] MEDS ORDERED: SODIUM CHLORIDE 0.9% 1000ML 1,000 ML IV PRN (08:33)
[2018-03-30] MEDS ORDERED: CLINDAMYCIN 600 MG/54 ML BAG IV SCH (09:00)
--- NOTE | 2018-03-30 09:03 | Communication Note ---
Date of Service: March 30, 2018 Dialysis asked that her catheter be placed later today due to staffing issues. Can not be done this afternoon. Will have to move it to tomorrow.
[2018-03-30] MEDS: NYSTATIN POWDER 15GM BTL EXT SCH ×4 (09:40→21:20)
--- NOTE | 2018-03-30 09:56 | Nephrology Progress Note ---
Date of Service March 30, 2018 Assessment & Plan (1) End stage renal disease: Mrs. Morales presented to [facility] ED for evaluation of weakness and tense LE swelling limiting her ability to ambulate. She has severe pulmonary HTN resulting in R heart failure and cardiac cirrhosis. She has a chronic R Pleur- x catheter in place. Diuretic therapy has been met with worsening renal insufficiency and progressive azotemia. Patient is now agreeable to initiation of HD. Medical hx is also significant for chronic anemia requiring IV iron and BINH therapy. -- HD this afternoon after TDC placement --1 PRBC with HD -- continue on calcitriol 0.25 mcg 3 times a week and renal vitamin daily -- encourage patient to increase protein intake -- discharge planning as per social service to set up IHD at [facility] and arrange transportation Will follow Subjective Crystal was seen in her room. Denies any specific symptoms. Hb staying oow at 7.6. . Blood pressure remained stable. Waiting for TDC late this morning Respiratory: + dyspnea on exertion Cardiovascular: + edema (tense LE swelling limiting her ability to walk); no chest pain Physical Exam 2 Vital Signs (Past 24 Hours): Last Vital Signs Temp 37 C 03/30/18 07:25 Pulse 73 03/30/18 08:02 Resp 16 03/30/18 07:25 BP 107/48 L 03/30/18 08:02 Pulse Ox 98 03/30/18 07:25 Constitutional: WD/WN, vitals as above + ill appearing Respiratory: normal respiratory effort, lungs clear to auscultation Cardiovascular: RRR, no murmur, no edema (1+ tense edema b/l LE) Neurologic: moves all extremities Psychiatric: A+Ox3, euthymic affect
[2018-03-30] MEDS ORDERED: CLINDAMYCIN 600 MG/54 ML D5W IV ONE (11:08)
[2018-03-30] MEDS ORDERED: LIDOCAINE HCL 1% 20 ML VIAL ONE (11:33)
[2018-03-30] MEDS ORDERED: HEPARIN SOD (PORCINE) 5,000 UNITS/ML VIAL ONE (11:33)
[2018-03-30] MEDS ORDERED: fentaNYL citrate 100 MCG/2 ML VIAL ONE (11:33)
[2018-03-30] MEDS ORDERED: MIDAZOLAM HCL 1 MG/ML 2ML VIAL ONE (11:33)
--- NOTE | 2018-03-30 11:33 | History & Physical Bridge Note ---
Date of Service March 30, 2018 History & Physical Bridge Note This patient is scheduled for a PermCath insertion today. I have discussed the risks options and benefits of the procedure with the patient. The patient understands the risks options and benefits and agrees to the procedure. I have examined the patient, reviewed the History & Physical and in the interval since the performance of the History & Physical I have noted the following changes of clinical significance: no changes noted
--- NOTE | 2018-03-30 11:41 | Pre Anesthesia Assessment ---
Date of Service March 30, 2018 Pre Sedation Assessment Vital Signs Temp Pulse Pulse Pulse Resp BP Pulse Ox 03/30/18 11:29 36.9 C 62 20 109/58 L 93 03/30/18 08:02 73 107/48 L 03/30/18 07:52 66 03/30/18 07:25 37 C 66 16 105/41 L 98 03/30/18 03:57 36.3 C L 72 16 123/54 L 97 03/30/18 03:12 123/54 L 97 03/30/18 01:00 104/45 L 03/29/18 23:53 68 03/29/18 23:23 36.8 C 70 16 113/37 L 96 03/29/18 18:57 36.8 C 67 20 123/51 L 99 03/29/18 16:39 70 03/29/18 15:34 36.8 C 69 20 127/55 L 96 03/29/18 12:20 36.8 C 69 18 117/49 L 97 Cardiovascular + regular rate and + regular rhythm Respiratory normal respiratory effort, lungs clear to auscultation + respiratory effort normal Pre-Sedation Airway Assessment Smoking Status: Never smoker Hx Sleep Apnea: No Short, Thick Neck: No Thyromental Distance: > or= 3.5 Finger Breadths Oral Cavity: + WNL Mallampati Class: II ASA: ASA3 NPO Status Date of Last Intake of Fluids: 03/29/18 Time of Last Intake of Fluids: 21:00 Date of Last Intake of Solid Food: 03/29/18 Time of Last Intake of Solid Foods: 21:00 Procedure Planning Contraindications for Sedation: none Current Medications Reviewed: Yes Notes The planned sedation has been discussed with the patient. Informed Consent was obtained. I have identified the patient, determined the appropriateness of sedation and have assessed the patient immediately prior to the procedure. All medicine(s) and interventions are by my order.
--- NOTE | 2018-03-30 12:26 | Operative Report ---
Post Operative Report Pre & Post Diagnosis Operation Date: 03/27/18 15:20 Pre-Op Diagnosis: Acute Kidney Injury Post-Op Diagnosis: Acute Kidney Injury Operation Date: 03/30/18 11:10 Pre-Op Diagnosis: End Stage Renal Disease Post-Op Diagnosis: End Stage Renal Disease Procedure Operation Date: 03/27/18 15:20 Actual Procedures p Insertion of Temporary Dialysis Catheter, Ultrasound Localization of Right Femoral Vein, Fluoroscopy for Comfirmation(Right) - Teodoro Titus MD Operation Date: 03/30/18 11:10 Actual Procedures p Insertion of Perm Catheter, Right Internal Jugular Approach, Ultrasound Localization of Right Internal Jugular Vein, Fluroscopy for Positioning; Removal of Temporary Dialysis Catheter Right Groin; Moderate Sedation From 1203 to 1230(Right) - Teodoro Titus MD Surgeon Teodoro Titus MD [employer] None Estimated Blood Loss 5 Findings Consistent with Post-Op Diagnosis Specimens None Anesthesia Type RN Sedation Complications none Disposition Accompanied Patient To Recovery: No Disposition: Recovery Room Indications This is a 77-year-old female who had a temporary catheter placed 3 days prior to this for dialysis purposes. This was done being that she had a full stomach and was in need of dialysis. She is now brought back to the angios suite for insertion of a tunneled catheter. I have discussed the risks options and benefits of the procedure with the patient. The patient understands the risks options and benefits and agrees to the procedure. Description of Procedure Patient was taken to the angio suite and placed in the supine position. The right side of the neck and chest wall were prepped and draped in a sterile manner. Local anesthesia was then administered to the appropriate areas of the neck and chest wall. Ultrasound was then used to locate the right internal jugular vein. The vein compressed easily, had no filing defects, and was patent. The vein was then punctured under direct ultrasound imaging. A guidewire was then passed centrally under fluoroscopic imaging. A stab wound was then made in the anterior chest wall and a 19 cm permcath was passed from the stab wound on the chest wall to the puncture site on the neck. The puncture site was then dilated till the 14Fr peel away sheath was inserted. The permcath was then inserted through the sheath to a central position in the distal superior vena cava. The peel away sheath was then removed. The catheter was then sutured in place using nylon sutures. The puncture was then closed using a 4-0 Vicryl subcuticular suture. Dermabond was used for a dressing on the puncture site. Both ports aspirated and flushed easily and were then packed with heparin. A sterile dressing was applied to the catheter. The sutures were removed from the right femoral temporary catheter and the catheter pulled. Pressure was applied and adequate hemostasis was obtained. A pressure dressing was then applied to the groin puncture site. The patient left the angio suite in good condition and tolerated the procedure well.The patient left the operation room in satisfactory condition and tolerated the procedure well. All needle and sponge counts were correct at the end of the procedure. I attest to the content of the Intraoperative Record and any orders documented therein. Any exceptions are noted below.
--- NOTE | 2018-03-30 12:36 | Post Anesthesia Assessment ---
Date of Service March 30, 2018 Post Sedation Assessment Vital Signs Temp Pulse Pulse Pulse Resp BP Pulse Ox 03/30/18 12:30 66 20 108/64 96 03/30/18 12:25 65 15 102/52 L 98 03/30/18 12:23 66 20 107/58 L 98 03/30/18 12:18 66 22 103/62 97 03/30/18 12:13 64 19 101/58 L 97 03/30/18 12:08 60 15 114/59 L 97 03/30/18 12:03 64 17 115/53 L 97 03/30/18 11:55 72 20 115/52 L 97 03/30/18 11:29 36.9 C 62 20 109/58 L 93 03/30/18 08:02 73 107/48 L 03/30/18 07:52 66 03/30/18 07:25 37 C 66 16 105/41 L 98 03/30/18 03:57 36.3 C L 72 16 123/54 L 97 03/30/18 03:12 123/54 L 97 03/30/18 01:00 104/45 L 03/29/18 23:53 68 03/29/18 23:23 36.8 C 70 16 113/37 L 96 03/29/18 18:57 36.8 C 67 20 123/51 L 99 03/29/18 16:39 70 03/29/18 15:34 36.8 C 69 20 127/55 L 96 Recovery Score Activity: Moves 4 extremities Respiration: Deep Breath/Cough Circulation: +/-20% PreAnes Value Consciousness: Fully Awake Oxygen Saturation: O2 needed for >90% Post Anesthesia Score: 9 Discharge Sedation Level of Care: Fast Track Phase II Post Sedation Plan On clinical assessment, the patient appears to have tolerated the sedation without complications. Patient is recovering as anticipated. Patient will continue to be monitored by nursing and may be discharged when sedation discharge criteria are met per below protocol. Upon Completions of procedure and additional 15 minutes continue every 5 minute vital signs and the P.A.R. score; then discharge to a Phase I or Fast Track to Phase II per the following guidelines: * Discharge Patient to appropriate Phase II area if PAR is 8 or greater or return to pre- procedure baseline. The post - procedure orders will be as directed. * If PAR score is less than 8 or not return to pre-procedure baseline then patient will follow Phase I monitoring till PAR is reached for Phase II. The Phase I may be done in procedure room or may call to secure a Phase I area. * If naloxone or flumazenil are used for reversal, hold in Phase I for continued monitoring from when last reversal dose was given for a minimum of 60 minutes or longer pending the nurse and/or physician discretion of patient condition before discharge to Phase II. Please call the Sedation Physician to re-evaluate and complete post-note for discharge to Phase II area. Do NOT discharge from procedure sedation or Phase 1 until post- sedation evaluation note is complete by procedure /sedation MD Sedation Discharge Instructions to be given to the patient at discharge to home.
[2018-03-30] MEDS: WARFARIN SOD 4 MG TAB PO SCH (19:23)
--- NOTE | 2018-03-30 20:43 | Hospitalist Progress Note ---
Date of Service March 30, 2018 Assessment & Plan (1) End stage renal disease: Progressive CKD for some time, now reaching ESRD status. s/p dialysis catheter placement with first HD session on 03/27. 2nd HD session on 03/28 was cut short by clotting off of the catheter. Additional IV bumex given on 03/28 for pulmonary edema. Now status post permanent dialysis catheter placement on 03/30 -Had hemodialysis on 03/30 with 2 L removed, is improved -Appreciate vascular and nephrology consultations for dialysis management and vascular access -Coumadin restarted today, follow INR (2) Acute on chronic anemia: The patient has an acute worsening of her already mod-severe anemia. Her chronic anemia has been felt to be a combination of Fe Deficiency, anemia of CKD, and chronic GI blood loss She has been supported with procrit, Fe infusions[facility]. Kam[facility]. Dr. Kaminski consulted for recommendations. To date has had 4 units of PRBCs this admission. s/p 2 Venofer infusion. Try to keep Hb 7.5 to 8. -Follow CBC -If needs transfusions, she does have several antibodies and blood test to come from [place] usually (3) Iron deficiency: see anemia above (4) Acute on chronic right-sided congestive heart failure: With preserved EF. Decompensated cor pulmonale. Poor response to bumex drip in setting of ESRD earlier this stay. s/p initiation of HD 03/27/18 due to worsening volume status. Improving (5) Pulmonary hypertension: severe, w/ resulting cor pulmonale. (6) Essential hypertension: controlled. continue outpatient BP meds. (7) S/P placement of cardiac pacemaker: pacer dependent. (8) Diabetes mellitus: control adequate at this time. (9) Atrial fibrillation: remains on coumadin. INR goal is 2.5 to 3.5 due to mechanical mitral valve. INR was 2.1 again today and had her dose of Coumadin held on 03/29 for procedure -Continue Coumadin, consider bridging with heparin drip tomorrow if okay with vascular surgery if INR is significantly lower -Follow PT/INR -Continue digoxin, Toprol-XL 100 mg daily (10) Asthma: no exacerbation at this time. (11) COPD (chronic obstructive pulmonary disease): without exacerbation at this time. (12) Pleural effusion, right: chronic pleurX catheter in place x 1 year. drain daily. 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 at risk of hepatic encephalopathy. observe for signs of such. (14) Hypothyroidism: cont synthroid. (15) Hypokalemia: resolved. (16) Hyponatremia: 2nd to diuretics, renal dysfunction, etc Stable today at 134 -Follow BMP (17) H/O mitral valve replacement with mechanical valve: INR goal 2.5 to 3.5. She is subtherapeutic again today, but had Permcath placement today She has also had bleeding issues from the right groin since its insertion. Will not bridge with heparin at this time but if INR is persistently below goal of 2.5 then consider such tomorrow. (18) DVT prophylaxis: coumadin Disposition-remain in hospital and will likely need more dialysis tomorrow Subjective Patient had dialysis catheter placed today and had dialysis with 2 L removed. She reports feeling much improved. She has less shortness of breath. Denies abdominal pain. She is tolerating p.o. No bleeding from her sites. She is complaining of several days of very irritated left eye with crusty drainage. Her eyelid is sealed shut when she closes it for extended periods of time. Telemetry with atrial fibrillation and paced rhythm with rates in the 60s-70s. Review of Systems All systems reviewed & are unremarkable except as noted in HPI & below Physical Exam 2 Vital Signs (Past 24 Hours): Last Vital Signs Temp 36.9 C 03/30/18 18:46 Pulse 60 03/30/18 18:46 Resp 22 03/30/18 16:28 BP 109/52 L 03/30/18 18:46 Pulse Ox 98 03/30/18 13:38 Constitutional: WD/WN, vitals as above (Chronically ill-appearing) Eyes: + conjunctival abnormality (Mild conjunctival erythema on the left with lid and lash yellow crust, upper lid also mildly erythematous), PERRL and EOM intact bilaterally ENMT: external ear and nose normal, oropharynx normal Neck: trachea midline, no thyromegaly Respiratory: normal respiratory effort Auscultation: + crackles (At the bases); no wheezes Cardiovascular: Rate/Rhythm: regular rate; + abnormal rhythm (Irregularly irregular) Heart Sounds: + murmur (At the apex with loud S2) Extremities: + edema (2-3+ pitting edema in the legs bilaterally, improved from when I seen her previously) Gastrointestinal (Abdomen): normal bowel sounds, soft, nontender, no hepatosplenomegaly Musculoskeletal: Extremities: no cyanosis and no clubbing Skin: + wound (Right neck and anterior chest wall with PermCath in place with dressings intact, clean dry and intact; right groin without bleeding) Neurologic: moves all extremities and awake; no focal motor deficits Psychiatric: A+Ox3, euthymic affect Results & Data Laboratory Results 03/30/18 03/30/18 03/30/18 Range/Units 19:22 12:56 11:00 WBC (4.8-10.8) K/uL RBC (4.2-5.4) M/uL Hgb (12.0-16.0) g/dL Hct (37-47) % MCV (80-100) fL MCH (25-34) pg MCHC (32-36) g/dL RDW Std Deviation (36.4-46.3) fL RDW Coeff of Marco (11.5-14.5) % Plt Count (130-400) K/uL MPV (7.4-10.4) fL PT (9.0-12.0) Seconds INR (0.9-1.1) Sodium (136-145) mmol/L Potassium (3.5-5.1) mmol/L Chloride (98-107) mmol/L Carbon Dioxide (21-32) mmol/L Anion Gap (3-11) BUN (7-18) mg/dl Creatinine (0.6-1.2) mg/dl Est Cr Clr Drug Dosing ml/min Est GFR ( Amer) Est GFR (Non-Af Amer) BUN/Creatinine Ratio (10-20) Glucose (70-99) mg/dl POC Glucose 72 78 80 (70-99) Calcium (8.5-10.1) mg/dl Blood Type Antibody Screen Antibody Identification Crossmatch 03/30/18 03/30/18 03/30/18 Range/Units 07:16 05:33 05:33 WBC 6.18 (4.8-10.8) K/uL RBC 2.67 L (4.2-5.4) M/uL Hgb 7.7 L (12.0-16.0) g/dL Hct 24.5 L (37-47) % MCV 91.8 (80-100) fL MCH 28.8 (25-34) pg MCHC 31.4 L (32-36) g/dL RDW Std Deviation 57.7 H (36.4-46.3) fL RDW Coeff of Marco 18.5 H (11.5-14.5) % Plt Count 199 (130-400) K/uL MPV 9.3 (7.4-10.4) fL PT (9.0-12.0) Seconds INR (0.9-1.1) Sodium 134 L (136-145) mmol/L Potassium 3.9 (3.5-5.1) mmol/L Chloride 102 (98-107) mmol/L Carbon Dioxide 22 (21-32) mmol/L Anion Gap 10.0 (3-11) BUN 88 H (7-18) mg/dl Creatinine 2.87 H (0.6-1.2) mg/dl Est Cr Clr Drug Dosing 16.3 ml/min Est GFR ( Amer) 17.8 Est GFR (Non-Af Amer) 15.4 BUN/Creatinine Ratio 30.8 H (10-20) Glucose 105 H (70-99) mg/dl POC Glucose 89 (70-99) Calcium 8.1 L (8.5-10.1) mg/dl Blood Type Antibody Screen Antibody Identification Crossmatch 03/30/18 03/29/18 03/25/18 Range/Units 05:33 19:04 13:28 WBC (4.8-10.8) K/uL RBC (4.2-5.4) M/uL Hgb (12.0-16.0) g/dL Hct (37-47) % MCV (80-100) fL MCH (25-34) pg MCHC (32-36) g/dL RDW Std Deviation (36.4-46.3) fL RDW Coeff of Marco (11.5-14.5) % Plt Count (130-400) K/uL MPV (7.4-10.4) fL PT 20.4 H (9.0-12.0) Seconds INR 2.1 H (0.9-1.1) Sodium (136-145) mmol/L Potassium (3.5-5.1) mmol/L Chloride (98-107) mmol/L Carbon Dioxide (21-32) mmol/L Anion Gap (3-11) BUN (7-18) mg/dl Creatinine (0.6-1.2) mg/dl Est Cr Clr Drug Dosing ml/min Est GFR ( Amer) Est GFR (Non-Af Amer) BUN/Creatinine Ratio (10-20) Glucose (70-99) mg/dl POC Glucose (70-99) Calcium (8.5-10.1) mg/dl Blood Type A Positive Antibody Screen POSITIVE A Antibody Identification Anti-c Crossmatch See Detail See Detail _ (1) Diabetes mellitus Diabetes mellitus type: type 2 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 insulin use: with snf use Diabetes mellitus complication status: with kidney complications Diabetes mellitus complication detail: with chronic kidney disease Diabetic retinopathy severity: Proliferative retinopathy type: Diabetes mellitus macular edema: Laterality: Chronic kidney disease stage: stage 4 (severe) Qualified Code(s): E11.22 - Type 2 diabetes mellitus with diabetic chronic kidney disease; N18.4 - Chronic kidney disease, stage 4 (severe); Z79.4 - exterminator (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 of insulin (2) Atrial fibrillation Atrial fibrillation type: chronic Qualified Code(s): I48.2 - Chronic atrial fibrillation (3) Asthma Asthma severity: unspecified severity Asthma persistence: unspecified Asthma complication type: uncomplicated Qualified Code(s): J45.909 - Unspecified asthma, uncomplicated (4) COPD (chronic obstructive pulmonary disease) COPD type: unspecified COPD Chronic bronchitis type: Emphysema type: Qualified Code(s): J44.9 - Chronic obstructive pulmonary disease, unspecified (5) Cirrhosis Hepatic cirrhosis type: other cirrhosis Ascites presence: Qualified Code(s) : K74.69 - Other cirrhosis of liver (6) Hypothyroidism Hypothyroidism type: acquired Qualified Code(s): E03.9 - Hypothyroidism, unspecified
[2018-03-30] MEDS: EZETIMIBE 10 MG TABLET PO SCH (21:21)
[2018-03-30] MEDS: NEOMYCIN/POLYMYXIN/HYDROCORT OPH SUSP 7.5 ML BTL OP SCH (21:37)
[2018-03-30] MEDS: diazePAM 5 MG TABLET PO PRN (21:47)
[2018-03-31] MEDS: OXYCODONE HCL IR 5 MG TAB (IMMEDIATE RELEASE) PO PRN ×2 (00:03→22:59)
[2018-03-31] MEDS: NEOMYCIN/POLYMYXIN/HYDROCORT OPH SUSP 7.5 ML BTL OP SCH ×8 (00:03→22:53)
[2018-03-31 06:00] LABS: Basophils # (auto) 0.02 K/uL (0-0.2); Basophils % (auto) 0.3 %; Eosinophils % (auto) 2.7 %; Hematocrit (blood only) 27.8 % (37-47); Hemoglobin 8.4 g/dL (12.0-16.0); Immature Granulocytes # (auto) 0.02 K/uL (0.00-0.02); Immature Granulocytes % (auto) 0.3 %; Lymphocytes # (auto) 0.58 K/uL (1.2-3.4); Lymphocytes % (auto) 7.9 %; Mean Corpuscular Hgb Conc 30.2 g/dL (32-36); Mean Platelet Volume 9.8 fL (7.4-10.4); Monocytes # (auto) 1.35 K/uL (0.11-0.59); Monocytes % (auto) 18.3 %; Neutrophils % (auto) 70.5 %; Platelet Count 179 K/uL (130-400); RDW Coefficient of Variation 18.8 % (11.5-14.5); RDW Standard Deviation 58.9 fL (36.4-46.3); Red Blood Count 2.99 M/uL (4.2-5.4); White Blood Count 7.37 K/uL (4.8-10.8)
[2018-03-31] MEDS ORDERED: CLINDAMYCIN 600 MG/54 ML BAG IV SCH ×2 (06:00)
[2018-03-31 06:13] LABS: INR 1.7 (0.9-1.1); Prothrombin Time 16.7 Seconds (9.0-12.0)
[2018-03-31] MEDS: LEVOTHYROXINE SODIUM 175 MCG TABLET PO SCH (06:20)
[2018-03-31 06:28] LABS: BUN Creatinine Ratio 19.5 (10-20); Calcium 8.1 mg/dl (8.5-10.1); Est GFR (Non-African American) 19.8; Magnesium 2.2 mg/dl (1.8-2.4); Polychromasia 1+; Potassium 3.8 mmol/L (3.5-5.1)
[2018-03-31] MEDS: CARBOHYDRATES FOR HYPOGLYCEMIA PO PRN (07:52)
[2018-03-31] MEDS: NEPHROCAPS PO SCH (07:53)
[2018-03-31] MEDS: TROSPIUM ~ ORDER AWAITING ACTION SCH ×2 (07:53→16:15)
[2018-03-31] MEDS: DIGOXIN 0.125 MG TAB PO SCH (07:54)
[2018-03-31] MEDS: PANTOprazole 40 MG TAB PO SCH (07:55)
[2018-03-31] MEDS: FEXOFENADINE HCL 180 MG TAB PO SCH (07:56)
[2018-03-31] MEDS: METOPROLOL SUCC 50MG EXT REL TAB PO SCH (07:56)
[2018-03-31] MEDS: MONTELUKAST SODIUM 10 MG TABLET PO SCH (07:57)
[2018-03-31] MEDS: SACCHAROMYCES BOULARDII 250 MG CAP PO SCH (07:57)
[2018-03-31] MEDS: DICLOFENAC SOD 1% GEL 100 GM TUBE EXT SCH ×4 (07:58→20:59)
[2018-03-31] MEDS: GEMFIBROZIL 600 MG TAB PO SCH ×2 (07:58→17:01)
[2018-03-31] MEDS: NYSTATIN POWDER 15GM BTL EXT SCH ×4 (08:00→20:59)
[2018-03-31 09:31] LABS: Basophils # (auto) 0.01 K/uL (0-0.2); Basophils % (auto) 0.1 %; Eosinophils # (auto) 0.17 K/uL (0-0.5); Hematocrit (blood only) 29.3 % (37-47); Hemoglobin 8.8 g/dL (12.0-16.0); Immature Granulocytes # (auto) 0.02 K/uL (0.00-0.02); Immature Granulocytes % (auto) 0.2 %; Lymphocytes # (auto) 0.96 K/uL (1.2-3.4); Lymphocytes % (auto) 11.4 %; Mean Corpuscular Volume 92.7 fL (80-100); Monocytes # (auto) 0.89 K/uL (0.11-0.59); Monocytes % (auto) 10.5 %; Neutrophils % (auto) 75.8 %; Platelet Count 198 K/uL (130-400); RDW Coefficient of Variation 18.9 % (11.5-14.5); Red Blood Count 3.16 M/uL (4.2-5.4); White Blood Count 8.45 K/uL (4.8-10.8)
[2018-03-31] MEDS: INSULIN ASPART 100 UNITS/ML 3 ML PEN SC SCH ×4 (09:32→21:02)
[2018-03-31] MEDS: Heparin IV Standard *NO* Bolus SCH ×2 (09:34→09:35)
[2018-03-31] MEDS: INSULIN GLARGINE 100 UNIT/ML VIAL SC SCH ×2 (09:34→20:58)
[2018-03-31 09:39] LABS: INR 1.7 (0.9-1.1); Partial Thromboplastin Ratio 1.2; Partial Thromboplastin Time 32.2 Seconds (21.0-31.0); Prothrombin Time 16.7 Seconds (9.0-12.0)
[2018-03-31 09:57] LABS: Anisocytosis Present; Polychromasia 1+
[2018-03-31] MEDS: HEPARIN SODIUM/DEXTROSE 25,000 UNITS/500 ML BAG IV SCH (10:44)
--- NOTE | 2018-03-31 11:26 | Nephrology Progress Note ---
Date of Service March 31, 2018 Assessment & Plan (1) End stage renal disease: Mrs. Morales presented to [facility] ED for evaluation of weakness and tense LE swelling limiting her ability to ambulate. She has severe pulmonary HTN resulting in R heart failure and cardiac cirrhosis. She has a chronic R Pleur- x catheter in place. Diuretic therapy has been met with worsening renal insufficiency and progressive azotemia. Patient is now agreeable to initiation of HD. Medical hx is also significant for chronic anemia requiring IV iron and BINH therapy. --plan for 4 hours dialysis tomorrow, continue to challenge with ultra filtration -- on calcitriol 0.25 mcg 3 times a week and renal vitamin daily -- check phosphate in a.m. --discontinue Cullen catheter, urinalysis -- encourage patient to increase protein intake -- discharge planning as per social service to set up IHD at [facility] and arrange transportation Will follow Subjective Crystal was seen in her room. Had dialysis yesterday for 3 hours with 2 L ultrafiltration, tolerated well. Continues to feel weak and tired and complain of some dysuria. Has exertional shortness of breath, denies chest pain. Respiratory: + dyspnea on exertion Cardiovascular: + edema (tense LE swelling limiting her ability to walk); no chest pain Physical Exam 2 Vital Signs (Past 24 Hours): Last Vital Signs Temp 37.2 C 03/31/18 07:59 Pulse 67 03/31/18 07:59 Resp 18 03/31/18 07:59 BP 102/55 L 03/31/18 07:59 Pulse Ox 98 03/31/18 07:59 Constitutional: WD/WN, vitals as above + ill appearing Respiratory: normal respiratory effort, lungs clear to auscultation Cardiovascular: RRR, no murmur, no edema (1+ tense edema b/l LE) Neurologic: moves all extremities Psychiatric: A+Ox3, euthymic affect
[2018-03-31] MEDS ORDERED: SODIUM CHLORIDE 0.9% 1000ML 1,000 ML IV PRN (11:27)
[2018-03-31] MEDS: WARFARIN SOD 3 MG TAB PO SCH (16:17)
[2018-03-31 17:04] LABS: Partial Thromboplastin Ratio 2.3
[2018-03-31 17:08] LABS: Partial Thromboplastin Time 60.1 Seconds (21.0-31.0)
--- NOTE | 2018-03-31 20:50 | Hospitalist Progress Note ---
Date of Service March 31, 2018 Assessment & Plan (1) End stage renal disease: Progressive CKD for some time, now reaching ESRD status. s/p dialysis catheter placement with first HD session on 03/27. 2nd HD session on 03/28 was cut short by clotting off of the catheter. Additional IV bumex given on 03/28 for pulmonary edema. Now status post permanent dialysis catheter placement on 03/30 -Had hemodialysis on 03/30 with 2 L removed, is improved -plan for HD again on 04/01 -Appreciate vascular and nephrology consultations for dialysis management and vascular access (2) Acute on chronic anemia: The patient had an acute worsening of her already mod-severe anemia. Her chronic anemia has been felt to be a combination of Fe Deficiency, anemia of CKD, and chronic GI blood loss She has been supported with procrit, Fe infusions[facility]. Kam[facility]. Dr. Kaminski consulted for recommendations. To date has had 4 units of PRBCs this admission. s/p 2 Venofer infusion. Try to keep Hb 7.5 to 8. -Follow CBC-today hgb imporved at 8.4 -If needs transfusions, she does have several antibodies and blood test to come from [place] usually (3) Iron deficiency: see anemia above (4) Acute on chronic right-sided congestive heart failure: With preserved EF. Decompensated cor pulmonale. Poor response to bumex drip in setting of ESRD earlier this stay. s/p initiation of HD 03/27/18 due to worsening volume status. Improving (5) Pulmonary hypertension: severe, w/ resulting cor pulmonale. (6) Essential hypertension: controlled. continue hydralazine 25 bid, Toprol 100 qday. (7) S/P placement of cardiac pacemaker: pacer dependent. (8) Diabetes mellitus: With hypoglycemia this AM -reduced Lantus to 15 units bid and increased range for SSI (9) Atrial fibrillation: remains on coumadin. INR goal is 2.5 to 3.5 due to mechanical mitral valve. INR was down to 1.7 today (her dose of Coumadin held on 03/29 for procedure) -Continue Coumadin same dose -begin bridging with heparin drip today-I confirmed with Dr. Titus this was ok -Follow PT/INR -Continue digoxin, Toprol-XL 100 mg daily (10) Asthma: no exacerbation at this time. (11) COPD (chronic obstructive pulmonary disease): without exacerbation at this time. (12) Pleural effusion, right: chronic pleurX catheter in place x 1 year. drain daily-today 300 mL. 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 at risk of hepatic encephalopathy. observe for signs of such. (14) Hypothyroidism: cont synthroid. (15) Hypokalemia: resolved. (16) Hyponatremia: 2nd to diuretics, renal dysfunction, etc Stable today at 134 -Follow BMP (17) H/O mitral valve replacement with mechanical valve: INR goal 2.5 to 3.5. Starting heparin gtt as above She has also had bleeding issues from the right groin again today but seems to have stopped at this point (18) DVT prophylaxis: coumadin , heparin gtt Disposition-remain in hospital and will likely need more dialysis tomorrow Subjective Pt reports some bleeding from her rt groin previous catheter site today and pressure dressing applied. Adal feels ok. Drained 300mL from PleurX. Feels her left eye is less irritated, less itchy today since starting eye abx gtts. No other complaints. I discussed her case with Nephrology today-no HD planned for today Review of Systems All systems reviewed & are unremarkable except as noted in HPI & below Physical Exam 2 Vital Signs (Past 24 Hours): Last Vital Signs Temp 36.9 C 03/31/18 15:00 Pulse 63 03/31/18 15:00 Resp 18 03/31/18 15:00 BP 92/42 L 03/31/18 15:00 Pulse Ox 99 03/31/18 15:00 Constitutional: WD/WN, vitals as above (Chronically ill-appearing) Eyes: PERRL, conjunctivae normal, anicteric sclerae + conjunctival abnormality (improved conjunctival erythema on the left with no further lid and lash yellow crust, upper lid with resolved erythema), PERRL and EOM intact bilaterally ENMT: external ear and nose normal, oropharynx normal Neck: trachea midline, no thyromegaly Respiratory: normal respiratory effort, lungs clear to auscultation normal respiratory effort Auscultation: + crackles (At the bases); no wheezes Cardiovascular: RRR, no murmur, no edema Rate/Rhythm: regular rate; + abnormal rhythm (Irregularly irregular) Heart Sounds: + murmur (At the apex with loud S2) Extremities: + edema (2+ pitting edema in the legs bilaterally , improved from when I seen her previously) and + vascular access device (rt anterior chest wall with perm cath in place, no erythema; rt groin with pressure dressing in place that is c/d/i) Gastrointestinal (Abdomen): normal bowel sounds, soft, nontender, no hepatosplenomegaly Musculoskeletal: Extremities: extremities normal to inspection; no cyanosis and no clubbing Skin: no rashes, warm and dry Neurologic: moves all extremities and awake; no focal motor deficits Psychiatric: A+Ox3, euthymic affect Results & Data Laboratory Results 04/01/18 04/01/18 04/01/18 Range/Units 04:57 04:57 04:57 WBC 6.82 (4.8-10.8) K/uL RBC 3.01 L (4.2-5.4) M/uL Hgb 8.5 L (12.0-16.0) g/dL Hct 27.6 L (37-47) % MCV 91.7 (80-100) fL MCH 28.2 (25-34) pg MCHC 30.8 L (32-36) g/dL RDW Std Deviation 61.4 H (36.4-46.3) fL RDW Coeff of Marco 18.9 H (11.5-14.5) % Plt Count 195 (130-400) K/uL MPV 9.8 (7.4-10.4) fL Immature Gran % (Auto) 0.3 % Neut % (Auto) 64.3 % Lymph % (Auto) 10.0 % Cole % (Auto) 20.8 % Eos % (Auto) 4.3 % Baso % (Auto) 0.3 % Immature Gran # (Auto) 0.02 (0.00-0.02) K/uL Neut # (Auto) 4.39 (1.4-6.5) K/uL Lymph # (Auto) 0.68 L (1.2-3.4) K/uL Cole # (Auto) 1.42 H (0.11-0.59) K/uL Eos # (Auto) 0.29 (0-0.5) K/uL Baso # (Auto) 0.02 (0-0.2) K/uL Polychromasia 1+ Anisocytosis PT 19.3 H (9.0-12.0) Seconds INR 2.0 H (0.9-1.1) APTT 40.8 H (21.0-31.0) Seconds PTT Ratio 1.6 Sodium 130 L (136-145) mmol/L Potassium 4.1 (3.5-5.1) mmol/L Chloride 97 L (98-107) mmol/L Carbon Dioxide 26 (21-32) mmol/L Anion Gap 7.0 (3-11) BUN 57 H (7-18) mg/dl Creatinine 2.91 H D (0.6-1.2) mg/dl Est Cr Clr Drug Dosing 16.2 ml/min Est GFR ( Amer) 17.5 Est GFR (Non-Af Amer) 15.1 BUN/Creatinine Ratio 19.7 (10-20) Glucose 95 (70-99) mg/dl POC Glucose (70-99) Calcium 8.0 L (8.5-10.1) mg/dl Phosphorus 3.6 (2.5-4.9) mg/dl Urine Color Urine Appearance (Clear) Urine pH (4.5-7.5) Ur Specific Anna (1.000-1.030) Urine Protein (Negative) Urine Glucose (UA) (Negative) Urine Ketones (Negative) Urine Blood (Negative) Urine Nitrite (Negative) Urine Bilirubin (Negative) Urine Urobilinogen (Negative) Ur Leukocyte Esterase (Negative) Urine WBC (Auto) (0-5) /hpf Urine RBC (Auto) (0-4) /hpf U Hyaline Cast (Auto) (0-5) /lpf U Epithel Cells (Auto) (0-5) /lpf Urine Bacteria (Auto) (Negative) Urine Yeast 04/01/18 03/31/18 03/31/18 Range/Units 00:00 19:59 16:26 WBC (4.8-10.8) K/uL RBC (4.2-5.4) M/uL Hgb (12.0-16.0) g/dL Hct (37-47) % MCV (80-100) fL MCH (25-34) pg MCHC (32-36) g/dL RDW Std Deviation (36.4-46.3) fL RDW Coeff of Marco (11.5-14.5) % Plt Count (130-400) K/uL MPV (7.4-10.4) fL Immature Gran % (Auto) % Neut % (Auto) % Lymph % (Auto) % Cole % (Auto) % Eos % (Auto) % Baso % (Auto) % Immature Gran # (Auto) (0.00-0.02) K/uL Neut # (Auto) (1.4-6.5) K/uL Lymph # (Auto) (1.2-3.4) K/uL Cole # (Auto) (0.11-0.59) K/uL Eos # (Auto) (0-0.5) K/uL Baso # (Auto) (0-0.2) K/uL Polychromasia Anisocytosis PT (9.0-12.0) Seconds INR (0.9-1.1) APTT (21.0-31.0) Seconds PTT Ratio Sodium (136-145) mmol/L Potassium (3.5-5.1) mmol/L Chloride (98-107) mmol/L Carbon Dioxide (21-32) mmol/L Anion Gap (3-11) BUN (7-18) mg/dl Creatinine (0.6-1.2) mg/dl Est Cr Clr Drug Dosing ml/min Est GFR ( Amer) Est GFR (Non-Af Amer) BUN/Creatinine Ratio (10-20) Glucose (70-99) mg/dl POC Glucose 183 H 103 H (70-99) Calcium (8.5-10.1) mg/dl Phosphorus (2.5-4.9) mg/dl Urine Color Dark Yellow Urine Appearance Turbid H (Clear) Urine pH 5.0 (4.5-7.5) Ur Specific Anna 1.018 (1.000-1.030) Urine Protein 1+ H (Negative) Urine Glucose (UA) Negative (Negative) Urine Ketones Trace H (Negative) Urine Blood 2+ H (Negative) Urine Nitrite Negative (Negative) Urine Bilirubin Negative (Negative) Urine Urobilinogen Negative (Negative) Ur Leukocyte Esterase 2+ H (Negative) Urine WBC (Auto) >30 H (0-5) /hpf Urine RBC (Auto) >30 H (0-4) /hpf U Hyaline Cast (Auto) 10-30 H (0-5) /lpf U Epithel Cells (Auto) >30 H (0-5) /lpf Urine Bacteria (Auto) 2+ H (Negative) Urine Yeast Not Reportable 03/31/18 03/31/18 03/31/18 Range/Units 16:25 11:57 09:16 WBC (4.8-10.8) K/uL RBC (4.2-5.4) M/uL Hgb (12.0-16.0) g/dL Hct (37-47) % MCV (80-100) fL MCH (25-34) pg MCHC (32-36) g/dL RDW Std Deviation (36.4-46.3) fL RDW Coeff of Marco (11.5-14.5) % Plt Count (130-400) K/uL MPV (7.4-10.4) fL Immature Gran % (Auto) % Neut % (Auto) % Lymph % (Auto) % Cole % (Auto) % Eos % (Auto) % Baso % (Auto) % Immature Gran # (Auto) (0.00-0.02) K/uL Neut # (Auto) (1.4-6.5) K/uL Lymph # (Auto) (1.2-3.4) K/uL Cole # (Auto) (0.11-0.59) K/uL Eos # (Auto) (0-0.5) K/uL Baso # (Auto) (0-0.2) K/uL Polychromasia Anisocytosis PT 16.7 H (9.0-12.0) Seconds INR 1.7 H (0.9-1.1) APTT 60.1 H* 32.2 H (21.0-31.0) Seconds PTT Ratio 2.3 1.2 Sodium (136-145) mmol/L Potassium (3.5-5.1) mmol/L Chloride (98-107) mmol/L Carbon Dioxide (21-32) mmol/L Anion Gap (3-11) BUN (7-18) mg/dl Creatinine (0.6-1.2) mg/dl Est Cr Clr Drug Dosing ml/min Est GFR ( Amer) Est GFR (Non-Af Amer) BUN/Creatinine Ratio (10-20) Glucose (70-99) mg/dl POC Glucose 91 (70-99) Calcium (8.5-10.1) mg/dl Phosphorus (2.5-4.9) mg/dl Urine Color Urine Appearance (Clear) Urine pH (4.5-7.5) Ur Specific Anna (1.000-1.030) Urine Protein (Negative) Urine Glucose (UA) (Negative) Urine Ketones (Negative) Urine Blood (Negative) Urine Nitrite (Negative) Urine Bilirubin (Negative) Urine Urobilinogen (Negative) Ur Leukocyte Esterase (Negative) Urine WBC (Auto) (0-5) /hpf Urine RBC (Auto) (0-4) /hpf U Hyaline Cast (Auto) (0-5) /lpf U Epithel Cells (Auto) (0-5) /lpf Urine Bacteria (Auto) (Negative) Urine Yeast 03/31/18 03/31/18 03/31/18 Range/Units 09:16 08:05 07:48 WBC 8.45 (4.8-10.8) K/uL RBC 3.16 L (4.2-5.4) M/uL Hgb 8.8 L (12.0-16.0) g/dL Hct 29.3 L (37-47) % MCV 92.7 (80-100) fL MCH 27.8 (25-34) pg MCHC 30.0 L (32-36) g/dL RDW Std Deviation 60.0 H (36.4-46.3) fL RDW Coeff of Marco 18.9 H (11.5-14.5) % Plt Count 198 (130-400) K/uL MPV 10.0 (7.4-10.4) fL Immature Gran % (Auto) 0.2 % Neut % (Auto) 75.8 % Lymph % (Auto) 11.4 % Cole % (Auto) 10.5 % Eos % (Auto) 2.0 % Baso % (Auto) 0.1 % Immature Gran # (Auto) 0.02 (0.00-0.02) K/uL Neut # (Auto) 6.40 (1.4-6.5) K/uL Lymph # (Auto) 0.96 L (1.2-3.4) K/uL Cole # (Auto) 0.89 H (0.11-0.59) K/uL Eos # (Auto) 0.17 (0-0.5) K/uL Baso # (Auto) 0.01 (0-0.2) K/uL Polychromasia 1+ Anisocytosis Present PT (9.0-12.0) Seconds INR (0.9-1.1) APTT (21.0-31.0) Seconds PTT Ratio Sodium (136-145) mmol/L Potassium (3.5-5.1) mmol/L Chloride (98-107) mmol/L Carbon Dioxide (21-32) mmol/L Anion Gap (3-11) BUN (7-18) mg/dl Creatinine (0.6-1.2) mg/dl Est Cr Clr Drug Dosing ml/min Est GFR ( Amer) Est GFR (Non-Af Amer) BUN/Creatinine Ratio (10-20) Glucose (70-99) mg/dl POC Glucose 77 53 L* (70-99) Calcium (8.5-10.1) mg/dl Phosphorus (2.5-4.9) mg/dl Urine Color Urine Appearance (Clear) Urine pH (4.5-7.5) Ur Specific Anna (1.000-1.030) Urine Protein (Negative) Urine Glucose (UA) (Negative) Urine Ketones (Negative) Urine Blood (Negative) Urine Nitrite (Negative) Urine Bilirubin (Negative) Urine Urobilinogen (Negative) Ur Leukocyte Esterase (Negative) Urine WBC (Auto) (0-5) /hpf Urine RBC (Auto) (0-4) /hpf U Hyaline Cast (Auto) (0-5) /lpf U Epithel Cells (Auto) (0-5) /lpf Urine Bacteria (Auto) (Negative) Urine Yeast 03/31/18 Range/Units 07:47 WBC (4.8-10.8) K/uL RBC (4.2-5.4) M/uL Hgb (12.0-16.0) g/dL Hct (37-47) % MCV (80-100) fL MCH (25-34) pg MCHC (32-36) g/dL RDW Std Deviation (36.4-46.3) fL RDW Coeff of Marco (11.5-14.5) % Plt Count (130-400) K/uL MPV (7.4-10.4) fL Immature Gran % (Auto) % Neut % (Auto) % Lymph % (Auto) % Cole % (Auto) % Eos % (Auto) % Baso % (Auto) % Immature Gran # (Auto) (0.00-0.02) K/uL Neut # (Auto) (1.4-6.5) K/uL Lymph # (Auto) (1.2-3.4) K/uL Cole # (Auto) (0.11-0.59) K/uL Eos # (Auto) (0-0.5) K/uL Baso # (Auto) (0-0.2) K/uL Polychromasia Anisocytosis PT (9.0-12.0) Seconds INR (0.9-1.1) APTT (21.0-31.0) Seconds PTT Ratio Sodium (136-145) mmol/L Potassium (3.5-5.1) mmol/L Chloride (98-107) mmol/L Carbon Dioxide (21-32) mmol/L Anion Gap (3-11) BUN (7-18) mg/dl Creatinine (0.6-1.2) mg/dl Est Cr Clr Drug Dosing ml/min Est GFR ( Amer) Est GFR (Non-Af Amer) BUN/Creatinine Ratio (10-20) Glucose (70-99) mg/dl POC Glucose 54 L* (70-99) Calcium (8.5-10.1) mg/dl Phosphorus (2.5-4.9) mg/dl Urine Color Urine Appearance (Clear) Urine pH (4.5-7.5) Ur Specific Anna (1.000-1.030) Urine Protein (Negative) Urine Glucose (UA) (Negative) Urine Ketones (Negative) Urine Blood (Negative) Urine Nitrite (Negative) Urine Bilirubin (Negative) Urine Urobilinogen (Negative) Ur Leukocyte Esterase (Negative) Urine WBC (Auto) (0-5) /hpf Urine RBC (Auto) (0-4) /hpf U Hyaline Cast (Auto) (0-5) /lpf U Epithel Cells (Auto) (0-5) /lpf Urine Bacteria (Auto) (Negative) Urine Yeast _ (1) Diabetes mellitus Chronic kidney disease stage: stage 4 (severe) Diabetes mellitus complication detail: with chronic kidney disease Diabetes mellitus complication status: with kidney complications Diabetes mellitus prison insulin use: with prison use Diabetes mellitus macular edema: Diabetes mellitus type: type 2 Diabetic retinopathy severity: Laterality: Proliferative retinopathy type: Qualified Code(s): E11.22 - Type 2 diabetes mellitus with diabetic chronic kidney disease; N18.4 - Chronic kidney disease, stage 4 (severe); 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 (2) Atrial fibrillation Atrial fibrillation type: chronic Qualified Code(s): I48.2 - Chronic atrial fibrillation (3) Hypothyroidism Hypothyroidism type: acquired Qualified Code(s): E03.9 - Hypothyroidism, unspecified (4) Cirrhosis Ascites presence: Hepatic cirrhosis type: other cirrhosis Qualified Code(s) : K74.69 - Other cirrhosis of liver (5) COPD (chronic obstructive pulmonary disease) COPD type: unspecified COPD Chronic bronchitis type: Emphysema type: Qualified Code(s): J44.9 - Chronic obstructive pulmonary disease, unspecified (6) Asthma Asthma complication type: uncomplicated Asthma persistence: unspecified Asthma severity: unspecified severity Qualified Code(s): J45.909 - Unspecified asthma, uncomplicated
[2018-03-31] MEDS: EZETIMIBE 10 MG TABLET PO SCH (21:02)
[2018-03-31] MEDS: diazePAM 5 MG TABLET PO PRN (23:03)
[2018-04-01] MEDS: TROSPIUM ~ ORDER AWAITING ACTION SCH ×4 (00:06→22:46)
[2018-04-01 00:30] LABS: Appearance Urine Turbid (Clear); Bacteria Urine Automated 2+ (Negative); Color Urine Dark Yellow; Epithelial Cell Urine Auto >30 /lpf (0-5); Glucose Urine UA Negative (Negative); Ketones Urine Trace (Negative); Leukocyte Esterase Urine 2+ (Negative); Nitrite Urine Negative (Negative); Protein Urine 1+ (Negative); Specific Gravity Urine 1.018 (1.000-1.030); Urobilinogen Urine Negative (Negative); WBC Urine Automated >30 /hpf (0-5)
[2018-04-01 00:34] LABS: Bilirubin Urine Negative (Negative); Ictotest Urine Negative (Negative)
[2018-04-01] MEDS: NEOMYCIN/POLYMYXIN/HYDROCORT OPH SUSP 7.5 ML BTL OP SCH ×8 (01:29→22:46)
[2018-04-01 05:16] LABS: Basophils # (auto) 0.02 K/uL (0-0.2); Basophils % (auto) 0.3 %; Eosinophils # (auto) 0.29 K/uL (0-0.5); Eosinophils % (auto) 4.3 %; Hematocrit (blood only) 27.6 % (37-47); Hemoglobin 8.5 g/dL (12.0-16.0); Immature Granulocytes # (auto) 0.02 K/uL (0.00-0.02); Immature Granulocytes % (auto) 0.3 %; Lymphocytes # (auto) 0.68 K/uL (1.2-3.4); Mean Corpuscular Hgb Conc 30.8 g/dL (32-36); Mean Corpuscular Volume 91.7 fL (80-100); Mean Platelet Volume 9.8 fL (7.4-10.4); Monocytes # (auto) 1.42 K/uL (0.11-0.59); Monocytes % (auto) 20.8 %; Neutrophils # (auto) 4.39 K/uL (1.4-6.5); Neutrophils % (auto) 64.3 %; Platelet Count 195 K/uL (130-400); RDW Coefficient of Variation 18.9 % (11.5-14.5); RDW Standard Deviation 61.4 fL (36.4-46.3); Red Blood Count 3.01 M/uL (4.2-5.4); White Blood Count 6.82 K/uL (4.8-10.8)
[2018-04-01 05:37] LABS: Partial Thromboplastin Ratio 1.6; Partial Thromboplastin Time 40.8 Seconds (21.0-31.0); Prothrombin Time 19.3 Seconds (9.0-12.0)
[2018-04-01 05:41] LABS: Polychromasia 1+
[2018-04-01 05:48] LABS: BUN Creatinine Ratio 19.7 (10-20); Creatinine Clr Calc Pharmacy 16.2 ml/min; Est GFR (African American) 17.5; Est GFR (Non-African American) 15.1; Phosphorus 3.6 mg/dl (2.5-4.9); Potassium 4.1 mmol/L (3.5-5.1)
[2018-04-01] MEDS: LEVOTHYROXINE SODIUM 175 MCG TABLET PO SCH (05:57)
[2018-04-01] MEDS: INSULIN GLARGINE 100 UNIT/ML VIAL SC SCH ×2 (08:46→21:05)
[2018-04-01] MEDS: INSULIN ASPART 100 UNITS/ML 3 ML PEN SC SCH ×4 (08:47→21:04)
[2018-04-01] MEDS: DICLOFENAC SOD 1% GEL 100 GM TUBE EXT SCH ×4 (08:53→21:03)
[2018-04-01] MEDS: OXYCODONE HCL IR 5 MG TAB (IMMEDIATE RELEASE) PO PRN ×2 (08:56→09:17)
[2018-04-01] MEDS: FEXOFENADINE HCL 180 MG TAB PO SCH (08:57)
[2018-04-01] MEDS: CALCITRIOL 0.25 MCG CAPSULE PO SCH (08:58)
[2018-04-01] MEDS: MONTELUKAST SODIUM 10 MG TABLET PO SCH (08:58)
[2018-04-01] MEDS: SACCHAROMYCES BOULARDII 250 MG CAP PO SCH (08:58)
[2018-04-01] MEDS: NEPHROCAPS PO SCH (08:58)
[2018-04-01] MEDS: PANTOprazole 40 MG TAB PO SCH (08:59)
[2018-04-01] MEDS: GEMFIBROZIL 600 MG TAB PO SCH ×2 (08:59→21:02)
[2018-04-01] MEDS: METOPROLOL SUCC 50MG EXT REL TAB PO SCH (08:59)
[2018-04-01] MEDS: NYSTATIN POWDER 15GM BTL EXT SCH ×4 (09:01→21:03)
[2018-04-01] MEDS: DIGOXIN 0.125 MG TAB PO SCH (09:05)
--- NOTE | 2018-04-01 10:01 | Nephrology Progress Note ---
Date of Service April 01, 2018 Assessment & Plan (1) End stage renal disease: Mrs. Morales presented to [facility] ED for evaluation of weakness and tense LE swelling limiting her ability to ambulate. She has severe pulmonary HTN resulting in R heart failure and cardiac cirrhosis. She has a chronic R Pleur- x catheter in place. Diuretic therapy has been met with worsening renal insufficiency and progressive azotemia and started on HD via TDC. Medical hx is also significant for chronic anemia requiring IV iron and BINH therapy. --plan for 4 hours dialysis today, continue to challenge with ultra filtration -- on calcitriol 0.25 mcg 3 times a week and renal vitamin daily -- encourage patient to increase protein intake -- discharge planning as per social service to set up IHD at [facility] and arrange transportation Will follow Subjective Crystal was seen in her room. Continues to feel weak and tired and complain of some dysuria and incontinence. Has exertional shortness of breath, denies chest pain. Respiratory: + dyspnea on exertion Cardiovascular: + edema (tense LE swelling limiting her ability to walk); no chest pain Gastrointestinal: + nausea; no vomiting Physical Exam 2 Vital Signs (Past 24 Hours): Last Vital Signs Temp 36.7 C 04/01/18 07:16 Pulse 70 04/01/18 09:05 Resp 20 04/01/18 07:16 BP 116/48 L 04/01/18 07:16 Pulse Ox 100 04/01/18 07:16 Constitutional: WD/WN, vitals as above + ill appearing Respiratory: normal respiratory effort, lungs clear to auscultation Cardiovascular: RRR, no murmur, no edema (1+ tense edema b/l LE) Neurologic: moves all extremities Psychiatric: A+Ox3, euthymic affect
[2018-04-01] MEDS: cefTRIAXone SODIUM 1,000 MG in DEXTROSE 5% 50 ML IV SCH (10:07)
[2018-04-01] MEDS: HEPARIN SODIUM/DEXTROSE 25,000 UNITS/500 ML BAG IV SCH (12:14)
[2018-04-01 12:18] LABS: Partial Thromboplastin Ratio 3.2
[2018-04-01 12:25] LABS: Partial Thromboplastin Time 83.2 Seconds (21.0-31.0)
--- NOTE | 2018-04-01 12:43 | Hospitalist Progress Note ---
Date of Service April 01, 2018 Assessment & Plan (1) End stage renal disease: Progressive CKD for some time, now has reached ESRD status. s/p dialysis catheter placement with first HD session on 03/27. 2nd HD session on 03/28 was cut short by clotting off of the catheter. Additional IV bumex given on 03/28 for pulmonary edema. Now status post permanent dialysis catheter placement on 03/30 -Had hemodialysis on 03/30 with 2 L removed, is improved -plan for HD again today -Appreciate vascular and nephrology consultations for dialysis management and vascular access -Awaiting outpatient dialysis chair approval (2) Acute on chronic anemia: The patient had an acute worsening of her already mod-severe anemia upon admission. Her chronic anemia has been felt to be a combination of Fe Deficiency, anemia of CKD, and chronic GI blood loss She has been supported with procrit, Fe infusions[facility]. Kam[facility]. Dr. Kaminski consulted for recommendations. To date has had 4 units of PRBCs this admission. s/p 2 Venofer infusion. Try to keep Hb 7.5 to 8. -Follow CBC-today hgb stable today at 8.5 -If needs transfusions, she does have several antibodies and blood test to come from [place] usually (3) Iron deficiency: see anemia above (4) Acute on chronic right-sided congestive heart failure: With preserved EF. Decompensated cor pulmonale. Poor response to bumex drip in setting of ESRD earlier this stay. s/p initiation of HD 03/27/18 due to worsening volume status. Improving (5) Pulmonary hypertension: severe, w/ resulting cor pulmonale. (6) Essential hypertension: controlled. continue hydralazine 25 bid, Toprol 100 qday. (7) S/P placement of cardiac pacemaker: pacer dependent. (8) Diabetes mellitus: With hypoglycemia previously which is now improved with reduction in Lantus -Continue Lantus 15 units bid and SSI (9) Atrial fibrillation: remains on coumadin. INR goal is 2.5 to 3.5 due to mechanical mitral valve. INR up to 2.0 today (her dose of Coumadin held on 03/29 for procedure) -Continue Coumadin same dose -Continue bridging with heparin drip -Follow PT/INR, PTT -Continue digoxin, Toprol-XL 100 mg daily (10) Asthma: no exacerbation at this time. (11) COPD (chronic obstructive pulmonary disease): without exacerbation at this time. (12) Pleural effusion, right: chronic pleurX catheter in place x 1 year. drain daily-today 400 mL. 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 at risk of hepatic encephalopathy. observe for signs of such. (14) Hypothyroidism: TSH normal at 2.1 in 10/2017 -Cont synthroid. (15) Hypokalemia: resolved. (16) Hyponatremia: Secondary to renal failure Worse today at 130 -Getting hemodialysis today -Follow BMP (17) H/O mitral valve replacement with mechanical valve: INR goal 2.5 to 3.5. Remains subtherapeutic today -Continue heparin gtt as above -Continue Coumadin -Follow PT/INR She has also had bleeding issues from the right groin which is now improved, but with scant leaking from the PermCath in the chest which is now stopped-PTT was critically high and heparin drip is being held appropriately as per nomogram (18) DVT prophylaxis: coumadin , heparin gtt Disposition-remain in hospital on telemetry Discussed patient's CODE STATUS with her today and she wishes to be a DNR/DNI- order changed in the computer Subjective Patient has complaints about her IV leaking, wants to know if dialysis can be shorter than 4 hours, and has complaints of dysuria and urinary incontinence. Says her breathing is at baseline, drained 400 mL's out of her Pleurx catheter this morning. She reports the fluid appears clearer. Review of Systems All systems reviewed & are unremarkable except as noted in HPI & below Physical Exam 2 Vital Signs (Past 24 Hours): Last Vital Signs Temp 36.6 C 04/01/18 11:59 Pulse 60 04/01/18 11:59 Resp 18 04/01/18 11:59 BP 124/57 L 04/01/18 11:59 Pulse Ox 99 04/01/18 11:59 Constitutional: WD/WN, vitals as above (Chronically ill-appearing) Eyes: PERRL, conjunctivae normal, anicteric sclerae + conjunctival abnormality (improved conjunctival erythema on the left with no further lid and lash yellow crust, upper lid with resolved erythema), PERRL and EOM intact bilaterally ENMT: external ear and nose normal, oropharynx normal Neck: trachea midline, no thyromegaly Respiratory: normal respiratory effort, lungs clear to auscultation normal respiratory effort Auscultation: + crackles (At the bases); no wheezes Cardiovascular: RRR, no murmur, no edema Rate/Rhythm: regular rate; + abnormal rhythm (Irregularly irregular) Heart Sounds: + murmur (At the apex with loud S2) Extremities: + edema (2+ pitting edema in the legs bilaterally , improved from when I seen her previously) and + vascular access device (rt anterior chest wall with perm cath in place, no erythema; rt groin with pressure dressing in place that is c/d/i) Gastrointestinal (Abdomen): normal bowel sounds, soft, nontender, no hepatosplenomegaly Musculoskeletal: Extremities: extremities normal to inspection; no cyanosis and no clubbing Skin: no rashes, warm and dry Neurologic: moves all extremities and awake; no focal motor deficits Psychiatric: Orientation: alert and oriented x 3 Affect: + depressed affect Results & Data Laboratory Results 04/01/18 04/01/18 04/01/18 Range/Units 11:46 11:45 07:41 WBC (4.8-10.8) K/uL RBC (4.2-5.4) M/uL Hgb (12.0-16.0) g/dL Hct (37-47) % MCV (80-100) fL MCH (25-34) pg MCHC (32-36) g/dL RDW Std Deviation (36.4-46.3) fL RDW Coeff of Marco (11.5-14.5) % Plt Count (130-400) K/uL MPV (7.4-10.4) fL Immature Gran % (Auto) % Neut % (Auto) % Lymph % (Auto) % [facility] % (Auto) % Eos % (Auto) % Baso % (Auto) % Immature Gran # (Auto) (0.00-0.02) K/uL Neut # (Auto) (1.4-6.5) K/uL Lymph # (Auto) (1.2-3.4) K/uL [facility] # (Auto) (0.11-0.59) K/uL Eos # (Auto) (0-0.5) K/uL Baso # (Auto) (0-0.2) K/uL Polychromasia PT (9.0-12.0) Seconds INR (0.9-1.1) APTT 83.2 H* (21.0-31.0) Seconds PTT Ratio 3.2 Sodium (136-145) mmol/L Potassium (3.5-5.1) mmol/L Chloride (98-107) mmol/L Carbon Dioxide (21-32) mmol/L Anion Gap (3-11) BUN (7-18) mg/dl Creatinine (0.6-1.2) mg/dl Est Cr Clr Drug Dosing ml/min Est GFR ( Amer) Est GFR (Non-Af Amer) BUN/Creatinine Ratio (10-20) Glucose (70-99) mg/dl POC Glucose 197 H 84 (70-99) Calcium (8.5-10.1) mg/dl Phosphorus (2.5-4.9) mg/dl Urine Color Urine Appearance (Clear) Urine pH (4.5-7.5) Ur Specific [employer] (1.000-1.030) Urine Protein (Negative) Urine Glucose (UA) (Negative) Urine Ketones (Negative) Urine Blood (Negative) Urine Nitrite (Negative) Urine Bilirubin (Negative) Urine Urobilinogen (Negative) Ur Leukocyte Esterase (Negative) Urine WBC (Auto) (0-5) /hpf Urine RBC (Auto) (0-4) /hpf U Hyaline Cast (Auto) (0-5) /lpf U Epithel Cells (Auto) (0-5) /lpf Urine Bacteria (Auto) (Negative) Urine Yeast 04/01/18 04/01/18 04/01/18 Range/Units 04:57 04:57 04:57 WBC 6.82 (4.8-10.8) K/uL RBC 3.01 L (4.2-5.4) M/uL Hgb 8.5 L (12.0-16.0) g/dL Hct 27.6 L (37-47) % MCV 91.7 (80-100) fL MCH 28.2 (25-34) pg MCHC 30.8 L (32-36) g/dL RDW Std Deviation 61.4 H (36.4-46.3) fL RDW Coeff of Marco 18.9 H (11.5-14.5) % Plt Count 195 (130-400) K/uL MPV 9.8 (7.4-10.4) fL Immature Gran % (Auto) 0.3 % Neut % (Auto) 64.3 % Lymph % (Auto) 10.0 % [facility] [facility] % (Auto) 20.8 % Eos % (Auto) 4.3 % Baso % (Auto) 0.3 % Immature Gran # (Auto) 0.02 (0.00-0.02) K/uL Neut # (Auto) 4.39 (1.4-6.5) K/uL Lymph # (Auto) 0.68 L (1.2-3.4) K/uL [facility] # (Auto) 1.42 H (0.11-0.59) K/uL Eos # (Auto) 0.29 (0-0.5) K/uL Baso # (Auto) 0.02 (0-0.2) K/uL Polychromasia 1+ PT 19.3 H (9.0-12.0) Seconds INR 2.0 H (0.9-1.1) APTT 40.8 H (21.0-31.0) Seconds PTT Ratio 1.6 Sodium 130 L (136-145) mmol/L Potassium 4.1 (3.5-5.1) mmol/L Chloride 97 L (98-107) mmol/L Carbon Dioxide 26 (21-32) mmol/L Anion Gap 7.0 (3-11) BUN 57 H (7-18) mg/dl Creatinine 2.91 H D (0.6-1.2) mg/dl Est Cr Clr Drug Dosing 16.2 ml/min Est GFR ( Amer) 17.5 Est GFR (Non-Af Amer) 15.1 BUN/Creatinine Ratio 19.7 (10-20) Glucose 95 (70-99) mg/dl POC Glucose (70-99) Calcium 8.0 L (8.5-10.1) mg/dl Phosphorus 3.6 (2.5-4.9) mg/dl Urine Color Urine Appearance (Clear) Urine pH (4.5-7.5) Ur Specific [employer] [place] (1.000-1.030) Urine Protein (Negative) Urine Glucose (UA) (Negative) Urine Ketones (Negative) Urine Blood (Negative) Urine Nitrite (Negative) Urine Bilirubin (Negative) Urine Urobilinogen (Negative) Ur Leukocyte Esterase (Negative) Urine WBC (Auto) (0-5) /hpf Urine RBC (Auto) (0-4) /hpf U Hyaline Cast (Auto) (0-5) /lpf U Epithel Cells (Auto) (0-5) /lpf Urine Bacteria (Auto) (Negative) Urine Yeast 04/01/18 03/31/18 03/31/18 Range/Units 00:00 19:59 16:26 WBC (4.8-10.8) K/uL RBC (4.2-5.4) M/uL Hgb (12.0-16.0) g/dL Hct (37-47) % MCV (80-100) fL MCH (25-34) pg MCHC (32-36) g/dL RDW Std Deviation (36.4-46.3) fL RDW Coeff of Marco (11.5-14.5) % Plt Count (130-400) K/uL MPV (7.4-10.4) fL Immature Gran % (Auto) % Neut % (Auto) % Lymph % (Auto) % [facility] % (Auto) % Eos % (Auto) % Baso % (Auto) % Immature Gran # (Auto) (0.00-0.02) K/uL Neut # (Auto) (1.4-6.5) K/uL Lymph # (Auto) (1.2-3.4) K/uL [facility] # (Auto) (0.11-0.59) K/uL Eos # (Auto) (0-0.5) K/uL Baso # (Auto) (0-0.2) K/uL Polychromasia PT (9.0-12.0) Seconds INR (0.9-1.1) APTT (21.0-31.0) Seconds PTT Ratio Sodium (136-145) mmol/L Potassium (3.5-5.1) mmol/L Chloride (98-107) mmol/L Carbon Dioxide (21-32) mmol/L Anion Gap (3-11) BUN (7-18) mg/dl Creatinine (0.6-1.2) mg/dl Est Cr Clr Drug Dosing ml/min Est GFR ( Amer) Est GFR (Non-Af Amer) BUN/Creatinine Ratio (10-20) Glucose (70-99) mg/dl POC Glucose 183 H 103 H (70-99) Calcium (8.5-10.1) mg/dl Phosphorus (2.5-4.9) mg/dl Urine Color Dark Yellow Urine Appearance Turbid H (Clear) Urine pH 5.0 (4.5-7.5) Ur Specific [employer] 1.018 (1.000-1.030) Urine Protein 1+ H (Negative) Urine Glucose (UA) Negative (Negative) Urine Ketones Trace H (Negative) Urine Blood 2+ H (Negative) Urine Nitrite Negative (Negative) Urine Bilirubin Negative (Negative) Urine Urobilinogen Negative (Negative) Ur Leukocyte Esterase 2+ H (Negative) Urine WBC (Auto) >30 H (0-5) /hpf Urine RBC (Auto) >30 H (0-4) /hpf U Hyaline Cast (Auto) 10-30 H (0-5) /lpf U Epithel Cells (Auto) >30 H (0-5) /lpf Urine Bacteria (Auto) 2+ H (Negative) Urine Yeast Not Reportable 03/31/18 Range/Units 16:25 WBC (4.8-10.8) K/uL RBC (4.2-5.4) M/uL Hgb (12.0-16.0) g/dL Hct (37-47) % MCV (80-100) fL MCH (25-34) pg MCHC (32-36) g/dL RDW Std Deviation (36.4-46.3) fL RDW Coeff of Marco (11.5-14.5) % Plt Count (130-400) K/uL MPV (7.4-10.4) fL Immature Gran % (Auto) % Neut % (Auto) % Lymph % (Auto) % [facility] % (Auto) % Eos % (Auto) % Baso % (Auto) % Immature Gran # (Auto) (0.00-0.02) K/uL Neut # (Auto) (1.4-6.5) K/uL Lymph # (Auto) (1.2-3.4) K/uL [facility] # (Auto) (0.11-0.59) K/uL Eos # (Auto) (0-0.5) K/uL Baso # (Auto) (0-0.2) K/uL Polychromasia PT (9.0-12.0) Seconds INR (0.9-1.1) APTT 60.1 H* (21.0-31.0) Seconds PTT Ratio 2.3 Sodium (136-145) mmol/L Potassium (3.5-5.1) mmol/L Chloride (98-107) mmol/L Carbon Dioxide (21-32) mmol/L Anion Gap (3-11) BUN (7-18) mg/dl Creatinine (0.6-1.2) mg/dl Est Cr Clr Drug Dosing ml/min Est GFR ( Amer) Est GFR (Non-Af Amer) BUN/Creatinine Ratio (10-20) Glucose (70-99) mg/dl POC Glucose (70-99) Calcium (8.5-10.1) mg/dl Phosphorus (2.5-4.9) mg/dl Urine Color Urine Appearance (Clear) Urine pH (4.5-7.5) Ur Specific [employer] (1.000-1.030) Urine Protein (Negative) Urine Glucose (UA) (Negative) Urine Ketones (Negative) Urine Blood (Negative) Urine Nitrite (Negative) Urine Bilirubin (Negative) Urine Urobilinogen (Negative) Ur Leukocyte Esterase (Negative) Urine WBC (Auto) (0-5) /hpf Urine RBC (Auto) (0-4) /hpf U Hyaline Cast (Auto) (0-5) /lpf U Epithel Cells (Auto) (0-5) /lpf Urine Bacteria (Auto) (Negative) Urine Yeast _ (1) Diabetes mellitus Diabetes mellitus type: type 2 Diabetes mellitus shelter insulin use: with terminal supervisor use Diabetes mellitus complication status: with kidney complications Diabetes mellitus complication detail: with chronic kidney disease Diabetic retinopathy severity: Proliferative retinopathy type: Diabetes mellitus macular edema: Laterality: Chronic kidney disease stage: stage 4 (severe) Qualified Code(s): E11.22 - Type 2 diabetes mellitus with diabetic chronic kidney disease; N18.4 - Chronic kidney disease, stage 4 (severe); Z79.4 - half-way (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 of insulin (2) Atrial fibrillation Atrial fibrillation type: chronic Qualified Code(s): I48.2 - Chronic atrial fibrillation (3) Asthma Asthma severity: unspecified severity Asthma persistence: unspecified Asthma complication type: uncomplicated Qualified Code(s): J45.909 - Unspecified asthma, uncomplicated (4) COPD (chronic obstructive pulmonary disease) COPD type: unspecified COPD Chronic bronchitis type: Emphysema type: Qualified Code(s): J44.9 - Chronic obstructive pulmonary disease, unspecified (5) Cirrhosis Hepatic cirrhosis type: other cirrhosis Ascites presence: Qualified Code(s) : K74.69 - Other cirrhosis of liver (6) Hypothyroidism Hypothyroidism type: acquired Qualified Code(s): E03.9 - Hypothyroidism, unspecified
[2018-04-01] MEDS: WARFARIN SOD 4 MG TAB PO SCH (21:01)
[2018-04-01] MEDS: EZETIMIBE 10 MG TABLET PO SCH (21:03)
[2018-04-01] MEDS: diazePAM 5 MG TABLET PO PRN (21:10)
[2018-04-01 21:55] LABS: Partial Thromboplastin Ratio 2.4
[2018-04-01 22:04] LABS: Partial Thromboplastin Time 63.4 Seconds (21.0-31.0)
[2018-04-02] MEDS: NEOMYCIN/POLYMYXIN/HYDROCORT OPH SUSP 7.5 ML BTL OP SCH ×8 (01:33→21:34)
[2018-04-02 03:30] LABS: Basophils # (auto) 0.02 K/uL (0-0.2); Basophils % (auto) 0.4 %; Eosinophils # (auto) 0.24 K/uL (0-0.5); Eosinophils % (auto) 4.2 %; Hematocrit (blood only) 27.1 % (37-47); Hemoglobin 8.2 g/dL (12.0-16.0); Immature Granulocytes # (auto) 0.02 K/uL (0.00-0.02); Immature Granulocytes % (auto) 0.4 %; Lymphocytes # (auto) 0.85 K/uL (1.2-3.4); Lymphocytes % (auto) 14.9 %; Mean Corpuscular Hgb Conc 30.3 g/dL (32-36); Mean Corpuscular Volume 93.1 fL (80-100); Mean Platelet Volume 9.7 fL (7.4-10.4); Monocytes # (auto) 0.48 K/uL (0.11-0.59); Monocytes % (auto) 8.4 %; Neutrophils # (auto) 4.09 K/uL (1.4-6.5); Neutrophils % (auto) 71.7 %; Platelet Count 166 K/uL (130-400); RDW Coefficient of Variation 19.3 % (11.5-14.5); RDW Standard Deviation 62.7 fL (36.4-46.3); Red Blood Count 2.91 M/uL (4.2-5.4)
[2018-04-02 03:53] LABS: Partial Thromboplastin Ratio 2.4
[2018-04-02 03:59] LABS: BUN Creatinine Ratio 13.6 (10-20); Creatinine Clr Calc Pharmacy 21.1 ml/min; Est GFR (African American) 24.9; Est GFR (Non-African American) 21.5; Potassium 4.1 mmol/L (3.5-5.1)
[2018-04-02 04:04] LABS: Partial Thromboplastin Time 61.1 Seconds (21.0-31.0)
[2018-04-02 04:06] LABS: RBC Morphology Unremarkable
[2018-04-02] MEDS: LEVOTHYROXINE SODIUM 175 MCG TABLET PO SCH (06:05)
[2018-04-02] MEDS: TROSPIUM ~ ORDER AWAITING ACTION SCH ×2 (07:41→16:11)
[2018-04-02] MEDS: DIGOXIN 0.125 MG TAB PO SCH (07:53)
[2018-04-02] MEDS: NEPHROCAPS PO SCH (07:53)
[2018-04-02] MEDS: FEXOFENADINE HCL 180 MG TAB PO SCH (07:55)
[2018-04-02] MEDS: SACCHAROMYCES BOULARDII 250 MG CAP PO SCH (07:55)
[2018-04-02] MEDS: METOPROLOL SUCC 50MG EXT REL TAB PO SCH (07:56)
[2018-04-02] MEDS: GEMFIBROZIL 600 MG TAB PO SCH ×2 (07:56→16:12)
[2018-04-02] MEDS: PANTOprazole 40 MG TAB PO SCH (07:56)
[2018-04-02] MEDS: MONTELUKAST SODIUM 10 MG TABLET PO SCH (07:58)
[2018-04-02] MEDS: INSULIN GLARGINE 100 UNIT/ML VIAL SC SCH ×2 (07:59→21:37)
[2018-04-02] MEDS: INSULIN ASPART 100 UNITS/ML 3 ML PEN SC SCH ×4 (08:03→21:36)
[2018-04-02] MEDS: NYSTATIN POWDER 15GM BTL EXT SCH ×4 (08:05→21:38)
[2018-04-02] MEDS: DICLOFENAC SOD 1% GEL 100 GM TUBE EXT SCH ×4 (08:05→21:33)
[2018-04-02] MEDS ORDERED: SODIUM CHLORIDE 0.9% 1000ML 1,000 ML IV PRN (08:29)
[2018-04-02 09:13] LABS: Prothrombin Time 19.4 Seconds (9.0-12.0)
[2018-04-02] MEDS: cefTRIAXone SODIUM 1,000 MG in DEXTROSE 5% 50 ML IV SCH (09:24)
--- NOTE | 2018-04-02 13:30 | Nephrology Progress Note ---
Date of Service April 02, 2018 Assessment & Plan (1) End stage renal disease: Mrs. Morales presented to [facility] for evaluation of weakness and tense LE swelling limiting her ability to ambulate. She has severe pulmonary HTN resulting in R heart failure and cardiac cirrhosis. She has a chronic R Pleur- x catheter in place. Diuretic therapy has been met with worsening renal insufficiency and progressive azotemia and started on HD via [facility]. Medical hx is also significant for chronic anemia requiring IV iron and BINH therapy. --plan for 4 hours dialysis tomorrow, continue to challenge with ultra filtration -- on calcitriol 0.25 mcg 3 times a week and renal vitamin daily -- encourage patient to increase protein intake --recommend PT evaluation -- discharge planning as per social service to set up IHD at [facility] and arrange transportation Will follow Subjective Crystal was seen in her room. She seems to be doing better, denies any specific symptom. LE edema improving. Respiratory: + dyspnea on exertion Cardiovascular: + edema (tense LE swelling limiting her ability to walk); no chest pain Physical Exam 2 Vital Signs (Past 24 Hours): Last Vital Signs Temp 36.3 C L 04/02/18 12:00 Pulse 61 04/02/18 12:00 Resp 18 04/02/18 12:00 BP 119/57 L 04/02/18 12:00 Pulse Ox 98 04/02/18 12:00 Constitutional: WD/WN, vitals as above + ill appearing Respiratory: normal respiratory effort, lungs clear to auscultation Cardiovascular: RRR, no murmur, no edema (1+ tense edema b/l LE) Neurologic: moves all extremities Psychiatric: A+Ox3, euthymic affect
[2018-04-02] MEDS: HEPARIN SODIUM/DEXTROSE 25,000 UNITS/500 ML BAG IV SCH (14:16)
[2018-04-02] MEDS: WARFARIN SOD 3 MG TAB PO SCH (16:11)
--- NOTE | 2018-04-02 17:10 | Hospitalist Progress Note ---
Date of Service April 02, 2018 Assessment & Plan (1) End stage renal disease: Progressive CKD for some time, now has reached ESRD status. s/p dialysis catheter placement with first HD session on 03/27. 2nd HD session on 03/28 was cut short by clotting off of the catheter. Additional IV bumex given on 03/28 for pulmonary edema. Now status post permanent dialysis catheter placement on 03/30 -Had hemodialysis on 03/30 with 2 L removed, is improved -Had hemodialysis again on 04/01 -Appreciate vascular and nephrology consultations for dialysis management and vascular access -Awaiting outpatient dialysis chair approval-it seems she has it improved but not till next Friday the (2) Acute on chronic anemia: The patient had an acute worsening of her already mod-severe anemia upon admission. Her chronic anemia has been felt to be a combination of Fe Deficiency, anemia of CKD, and chronic GI blood loss She has been supported with procrit, Fe infusions[facility] by [facility]. Kaminski. Dr. Kaminski consulted for recommendations. To date has had 4 units of PRBCs this admission. s/p 2 Venofer infusion. Try to keep Hb 7.5 to 8. -Follow CBC-today hgb stable today at 8.2 -If needs transfusions, she does have several antibodies and blood test to come from [place] usually (3) Iron deficiency: see anemia above (4) Acute on chronic right-sided congestive heart failure: With preserved EF. Decompensated cor pulmonale. Poor response to bumex drip in setting of ESRD earlier this stay. s/p initiation of HD 03/27/18 due to worsening volume status. Improving (5) Pulmonary hypertension: severe, w/ resulting cor pulmonale. (6) Essential hypertension: controlled. continue hydralazine 25 bid, Toprol 100 qday. (7) S/P placement of cardiac pacemaker: pacer dependent. (8) Diabetes mellitus: With hypoglycemia previously which is now improved with reduction in Lantus -Continue Lantus 15 units bid and SSI (9) Atrial fibrillation: remains on coumadin. INR goal is 2.5 to 3.5 due to mechanical mitral valve. INR still at 2.0 today (her dose of Coumadin held on 03/29 for procedure) -Continue Coumadin same dose as usually she is therapeutic at this dosing -Continue bridging with but will discontinue heparin drip and start Lovenox 1 saira per cake subcu every 12 -Follow PT/INR, PTT -Continue digoxin, Toprol-XL 100 mg daily (10) Asthma: no exacerbation at this time. (11) COPD (chronic obstructive pulmonary disease): without exacerbation at this time. (12) Pleural effusion, right: chronic pleurX catheter in place x 1 year. 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 at risk of hepatic encephalopathy. observe for signs of such. (14) Hypothyroidism: TSH normal at 2.1 in 10/2017 -Cont synthroid. (15) Hypokalemia: resolved. (16) Hyponatremia: Secondary to renal failure Improved today at 132 status post dialysis -Follow BMP (17) H/O mitral valve replacement with mechanical valve: INR goal 2.5 to 3.5. Remains subtherapeutic today -Continue bridging now with Lovenox as above -Continue Coumadin -Follow PT/INR She has also had bleeding issues from the right groin which is now resolved (18) UTI (urinary tract infection): Had dysuria on 03/31, UA was abnormal and urine culture growing E. coli, awaiting sensitivities -Continue Rocephin-day #2 -Follow urine culture final ID and sensitivity (19) DVT prophylaxis: coumadin Lovenox Disposition-remain in hospital on telemetry DNR/DNI Subjective Patient complains of a cough and feels like she has a fever because her temperature is up to 98 and usually she runs 97. Breathing feels at baseline. No chest pain, no nausea. She is moving her bowels. No further bleeding today from her groin or PermCath site, but did have some mild epistaxis but she was blowing her nose. She really would like to be disconnected from the heparin drip. Review of Systems All systems reviewed & are unremarkable except as noted in HPI & below Physical Exam 2 Vital Signs (Past 24 Hours): Last Vital Signs Temp 36.7 C 04/02/18 15:31 Pulse 61 04/02/18 15:31 Resp 22 04/02/18 15:31 BP 131/57 L 04/02/18 15:31 Pulse Ox 97 04/02/18 15:31 Constitutional: WD/WN, vitals as above (Chronically ill-appearing) Eyes: PERRL, conjunctivae normal, anicteric sclerae Neck: trachea midline, no thyromegaly Respiratory: normal respiratory effort, lungs clear to auscultation normal respiratory effort Auscultation: + crackles (At the bases); no wheezes Cardiovascular: RRR, no murmur, no edema Rate/Rhythm: regular rate; + abnormal rhythm (Irregularly irregular) Heart Sounds: + murmur (At the apex with loud S2) Extremities: + edema (1-2+ pitting edema in the legs bilaterally, continue to be improved from previous) and + vascular access device (rt anterior chest wall with perm cath in place, no erythema; rt groin with pressure dressing in place that is c/d/i) Gastrointestinal (Abdomen): normal bowel sounds, soft, nontender, no hepatosplenomegaly (Mild distention) Musculoskeletal: Extremities: no cyanosis and no clubbing Skin: no rashes, warm and dry + wound (Right neck and anterior chest wall with PermCath in place with dressings intact, clean dry and intact; right groin without bleeding) Neurologic: moves all extremities and awake; no focal motor deficits Psychiatric: A+Ox3, euthymic affect Orientation: alert and oriented x 3 Affect: + depressed affect Results & Data Laboratory Results 04/02/18 04/02/18 04/02/18 Range/Units 16:24 11:33 07:29 WBC (4.8-10.8) K/uL RBC (4.2-5.4) M/uL Hgb (12.0-16.0) g/dL Hct (37-47) % MCV (80-100) fL MCH (25-34) pg MCHC (32-36) g/dL RDW Std Deviation (36.4-46.3) fL RDW Coeff of Marco (11.5-14.5) % Plt Count (130-400) K/uL MPV (7.4-10.4) fL Immature Gran % (Auto) % Neut % (Auto) % Lymph % (Auto) % Maries % (Auto) % Eos % (Auto) % Baso % (Auto) % Immature Gran # (Auto) (0.00-0.02) K/uL Neut # (Auto) (1.4-6.5) K/uL Lymph # (Auto) (1.2-3.4) K/uL Maries # (Auto) (0.11-0.59) K/uL Eos # (Auto) (0-0.5) K/uL Baso # (Auto) (0-0.2) K/uL RBC Morphology PT (9.0-12.0) Seconds INR (0.9-1.1) APTT (21.0-31.0) Seconds PTT Ratio Sodium (136-145) mmol/L Potassium (3.5-5.1) mmol/L Chloride (98-107) mmol/L Carbon Dioxide (21-32) mmol/L Anion Gap (3-11) BUN (7-18) mg/dl Creatinine (0.6-1.2) mg/dl Est Cr Clr Drug Dosing ml/min Est GFR ( Amer) Est GFR (Non-Af Amer) BUN/Creatinine Ratio (10-20) Glucose (70-99) mg/dl POC Glucose 145 H 125 H 82 (70-99) Calcium (8.5-10.1) mg/dl 04/02/18 04/02/18 04/02/18 Range/Units 03:16 03:16 03:16 WBC (4.8-10.8) K/uL RBC (4.2-5.4) M/uL Hgb (12.0-16.0) g/dL Hct (37-47) % MCV (80-100) fL MCH (25-34) pg MCHC (32-36) g/dL RDW Std Deviation (36.4-46.3) fL RDW Coeff of Marco (11.5-14.5) % Plt Count (130-400) K/uL MPV (7.4-10.4) fL Immature Gran % (Auto) % Neut % (Auto) % Lymph % (Auto) % Maries % (Auto) % Eos % (Auto) % Baso % (Auto) % Immature Gran # (Auto) (0.00-0.02) K/uL Neut # (Auto) (1.4-6.5) K/uL Lymph # (Auto) (1.2-3.4) K/uL Maries # (Auto) (0.11-0.59) K/uL Eos # (Auto) (0-0.5) K/uL Baso # (Auto) (0-0.2) K/uL RBC Morphology PT 19.4 H (9.0-12.0) Seconds INR 2.0 H (0.9-1.1) APTT 61.1 H* (21.0-31.0) Seconds PTT Ratio 2.4 Sodium 132 L (136-145) mmol/L Potassium 4.1 (3.5-5.1) mmol/L Chloride 99 (98-107) mmol/L Carbon Dioxide 28 (21-32) mmol/L Anion Gap 5.0 (3-11) BUN 30 H (7-18) mg/dl Creatinine 2.18 H D (0.6-1.2) mg/dl Est Cr Clr Drug Dosing 21.1 ml/min Est GFR ( Amer) 24.9 Est GFR (Non-Af Amer) 21.5 BUN/Creatinine Ratio 13.6 (10-20) Glucose 99 (70-99) mg/dl POC Glucose (70-99) Calcium 8.0 L (8.5-10.1) mg/dl 04/02/18 04/01/18 04/01/18 Range/Units 03:16 21:22 20:40 WBC 5.70 (4.8-10.8) K/uL RBC 2.91 L (4.2-5.4) M/uL Hgb 8.2 L (12.0-16.0) g/dL Hct 27.1 L (37-47) % MCV 93.1 (80-100) fL MCH 28.2 (25-34) pg MCHC 30.3 L (32-36) g/dL RDW Std Deviation 62.7 H (36.4-46.3) fL RDW Coeff of Marco 19.3 H (11.5-14.5) % Plt Count 166 (130-400) K/uL MPV 9.7 (7.4-10.4) fL Immature Gran % (Auto) 0.4 % Neut % (Auto) 71.7 % Lymph % (Auto) 14.9 % Maries % (Auto) 8.4 % Eos % (Auto) 4.2 % Baso % (Auto) 0.4 % Immature Gran # (Auto) 0.02 (0.00-0.02) K/uL Neut # (Auto) 4.09 (1.4-6.5) K/uL Lymph # (Auto) 0.85 L (1.2-3.4) K/uL Maries # (Auto) 0.48 (0.11-0.59) K/uL Eos # (Auto) 0.24 (0-0.5) K/uL Baso # (Auto) 0.02 (0-0.2) K/uL RBC Morphology Unremarkable PT (9.0-12.0) Seconds INR (0.9-1.1) APTT 63.4 H* (21.0-31.0) Seconds PTT Ratio 2.4 Sodium (136-145) mmol/L Potassium (3.5-5.1) mmol/L Chloride (98-107) mmol/L Carbon Dioxide (21-32) mmol/L Anion Gap (3-11) BUN (7-18) mg/dl Creatinine (0.6-1.2) mg/dl Est Cr Clr Drug Dosing ml/min Est GFR ( Amer) Est GFR (Non-Af Amer) BUN/Creatinine Ratio (10-20) Glucose (70-99) mg/dl POC Glucose 84 (70-99) Calcium (8.5-10.1) mg/dl _ (1) Diabetes mellitus Chronic kidney disease stage: stage 4 (severe) Diabetes mellitus complication detail: with chronic kidney disease Diabetes mellitus complication status: with kidney complications Diabetes mellitus keno terminal operator insulin use: with keno terminal operator use Diabetes mellitus macular edema: Diabetes mellitus type: type 2 Diabetic retinopathy severity: Laterality: Proliferative retinopathy type: Qualified Code(s): E11.22 - Type 2 diabetes mellitus with diabetic chronic kidney disease; N18.4 - Chronic kidney disease, stage 4 (severe); Z79.4 - senior living (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 of insulin (2) Atrial fibrillation Atrial fibrillation type: chronic Qualified Code(s): I48.2 - Chronic atrial fibrillation (3) Hypothyroidism Hypothyroidism type: acquired Qualified Code(s): E03.9 - Hypothyroidism, unspecified (4) Cirrhosis Ascites presence: Hepatic cirrhosis type: other cirrhosis Qualified Code(s) : K74.69 - Other cirrhosis of liver (5) COPD (chronic obstructive pulmonary disease) COPD type: unspecified COPD Chronic bronchitis type: Emphysema type: Qualified Code(s): J44.9 - Chronic obstructive pulmonary disease, unspecified (6) Asthma Asthma complication type: uncomplicated Asthma persistence: unspecified Asthma severity: unspecified severity Qualified Code(s): J45.909 - Unspecified asthma, uncomplicated
[2018-04-02] MEDS ORDERED: ENOXAPARIN 1 MG/KG SC SCH (17:15)
[2018-04-02] MEDS ORDERED: ENOXAPARIN 80 MG/0.8 ML SYR SQ SCH (17:30)
[2018-04-02] MEDS: OXYCODONE HCL IR 5 MG TAB (IMMEDIATE RELEASE) PO PRN (21:32)
[2018-04-02] MEDS: EZETIMIBE 10 MG TABLET PO SCH (21:36)
[2018-04-02] MEDS: diazePAM 5 MG TABLET PO PRN (22:29)
[2018-04-03] MEDS: NEOMYCIN/POLYMYXIN/HYDROCORT OPH SUSP 7.5 ML BTL OP SCH ×8 (01:20→21:37)
[2018-04-03] MEDS: ACETAMINOPHEN 325 MG TAB PO PRN (02:13)
[2018-04-03] MEDS: LEVOTHYROXINE SODIUM 175 MCG TABLET PO SCH ×2 (06:28→06:32)
[2018-04-03] MEDS: TROSPIUM ~ ORDER AWAITING ACTION SCH ×4 (06:58→23:56)
[2018-04-03 07:00] LABS: Basophils # (auto) 0.02 K/uL (0-0.2); Basophils % (auto) 0.4 %; Eosinophils # (auto) 0.24 K/uL (0-0.5); Eosinophils % (auto) 4.5 %; Hematocrit (blood only) 24.4 % (37-47); Hemoglobin 7.6 g/dL (12.0-16.0); Immature Granulocytes # (auto) 0.03 K/uL (0.00-0.02); Immature Granulocytes % (auto) 0.6 %; Lymphocytes # (auto) 0.63 K/uL (1.2-3.4); Lymphocytes % (auto) 11.8 %; Mean Corpuscular Hgb Conc 31.1 g/dL (32-36); Mean Corpuscular Volume 92.4 fL (80-100); Mean Platelet Volume 9.4 fL (7.4-10.4); Monocytes # (auto) 0.97 K/uL (0.11-0.59); Monocytes % (auto) 18.2 %; Neutrophils # (auto) 3.44 K/uL (1.4-6.5); Neutrophils % (auto) 64.5 %; Platelet Count 153 K/uL (130-400); RDW Coefficient of Variation 19.2 % (11.5-14.5); RDW Standard Deviation 63.9 fL (36.4-46.3); Red Blood Count 2.64 M/uL (4.2-5.4); White Blood Count 5.33 K/uL (4.8-10.8)
[2018-04-03 07:19] LABS: INR 2.8 (0.9-1.1); Partial Thromboplastin Ratio 1.6; Partial Thromboplastin Time 41.7 Seconds (21.0-31.0); Prothrombin Time 26.7 Seconds (9.0-12.0)
[2018-04-03 07:24] LABS: BUN Creatinine Ratio 12.8 (10-20); Creatinine Clr Calc Pharmacy 16.3 ml/min; Est GFR (African American) 17.2; Est GFR (Non-African American) 14.8; Potassium 4.5 mmol/L (3.5-5.1)
[2018-04-03 07:26] LABS: Anisocytosis Present; Basophilic Stippling 1+; Hypochromasia Present; Polychromasia 1+
[2018-04-03] MEDS ORDERED: SODIUM CHLORIDE 0.9% 250 ML IV PRN (07:54)
[2018-04-03] MEDS: PANTOprazole 40 MG TAB PO SCH (08:19)
[2018-04-03] MEDS: GEMFIBROZIL 600 MG TAB PO SCH (08:19)
[2018-04-03] MEDS: NEPHROCAPS PO SCH (08:19)
[2018-04-03] MEDS: FEXOFENADINE HCL 180 MG TAB PO SCH (08:20)
[2018-04-03] MEDS: SACCHAROMYCES BOULARDII 250 MG CAP PO SCH (08:20)
[2018-04-03] MEDS: DIGOXIN 0.125 MG TAB PO SCH (08:20)
[2018-04-03] MEDS: CALCITRIOL 0.25 MCG CAPSULE PO SCH (08:20)
[2018-04-03] MEDS: MONTELUKAST SODIUM 10 MG TABLET PO SCH (08:20)
[2018-04-03] MEDS: NYSTATIN POWDER 15GM BTL EXT SCH ×4 (08:22→21:37)
[2018-04-03] MEDS: DICLOFENAC SOD 1% GEL 100 GM TUBE EXT SCH ×4 (08:22→21:37)
[2018-04-03] MEDS: INSULIN ASPART 100 UNITS/ML 3 ML PEN SC SCH ×4 (08:23→21:38)
[2018-04-03] MEDS: INSULIN GLARGINE 100 UNIT/ML VIAL SC SCH ×2 (08:37→21:39)
[2018-04-03] MEDS: OXYCODONE HCL IR 5 MG TAB (IMMEDIATE RELEASE) PO PRN (08:57)
[2018-04-03] MEDS: cefTRIAXone SODIUM 1,000 MG in DEXTROSE 5% 50 ML IV SCH (11:44)
--- NOTE | 2018-04-03 14:00 | Nephrology Progress Note ---
Date of Service April 03, 2018 Assessment & Plan (1) End stage renal disease: Mrs. Morales presented to [facility] ED for evaluation of weakness and tense LE swelling limiting her ability to ambulate. She has severe pulmonary HTN resulting in R heart failure and cardiac cirrhosis. She has a chronic R Pleur- x catheter in place. Diuretic therapy has been met with worsening renal insufficiency and progressive azotemia and started on HD via TDC. Medical hx is also significant for chronic anemia requiring IV iron and BINH therapy. --plan for 4 hours dialysis today, continue on Friday, Friday, Friday dialysis, continue to challenge with ultra filtration --will transfuse 1 unit PRBC during dialysis today -- on calcitriol 0.25 mcg 3 times a week and renal vitamin daily -- encourage patient to increase protein intake --recommend PT evaluation -- discharge planning as per social service to set up IHD at [facility] and arrange transportation Will follow Subjective Crystal was seen in her room. She seems to be doing better, denies any specific symptom. LE edema improving. Still gets short of breath is ED with any kind of activity. Hemoglobin dropped. Respiratory: + dyspnea on exertion Cardiovascular: + edema (tense LE swelling limiting her ability to walk); no chest pain Gastrointestinal: + nausea; no vomiting Physical Exam 2 Vital Signs (Past 24 Hours): Last Vital Signs Temp 36.6 C 04/03/18 12:45 Pulse 60 04/03/18 13:30 Resp 18 04/03/18 12:45 BP 129/55 L 04/03/18 13:30 Pulse Ox 99 04/03/18 12:45 Constitutional: WD/WN, vitals as above + ill appearing Respiratory: normal respiratory effort, lungs clear to auscultation Cardiovascular: RRR, no murmur, no edema (1+ tense edema b/l LE) Neurologic: moves all extremities Psychiatric: A+Ox3, euthymic affect
[2018-04-03] MEDS: METOPROLOL SUCC 50MG EXT REL TAB PO SCH (14:07)
[2018-04-03] MEDS: CARBOHYDRATES FOR HYPOGLYCEMIA PO PRN (14:11)
[2018-04-03] MEDS: WARFARIN SOD 4 MG TAB PO SCH (16:22)
--- NOTE | 2018-04-03 19:15 | Hospitalist Progress Note ---
Date of Service April 03, 2018 Assessment & Plan (1) End stage renal disease: Progressive CKD for some time, now has reached ESRD status. Significantly volume overloaded this admission. Is up 16kg in the last 2-3 months. s/p dialysis catheter placement with first HD session on 03/27. 2nd HD session on 03/28 was cut short by clotting off of the catheter. Additional IV bumex given on 03/28 for pulmonary edema. Now status post permanent dialysis catheter placement on 03/30 -Had hemodialysis on 03/30 with 2 L removed, is improved -Had hemodialysis again on 04/01 and 04/03 Remains volume overloaded but is improving -Appreciate vascular and nephrology consultations for dialysis management and vascular access -outpatient dialysis chair time set for 04/08/18 -continue calctriol, Nephrocaps -Pharmacy recommended dcing gemfibrozil, reducing Zantac to once daily dosing due to ESRD -will be on MWF HD schedule (2) Acute on chronic anemia: The patient had an acute worsening of her already mod-severe anemia upon admission. Her chronic anemia has been felt to be a combination of Fe Deficiency, anemia of CKD, and chronic GI blood loss She has been supported with procrit, Fe inf[facility]. Kam[facility]. Dr. Kaminski consulted for recommendations. Hgb back down again today to 7.6 Transfuse 1 unit PRBCs with HD today To date has had 5 units of PRBCs this admission. s/p 2 Venofer infusion. Try to keep Hb at least 7.5 to 8. -Follow CBC -If needs transfusions, she does have several antibodies and blood test to come from [facility] usually (3) Iron deficiency: see anemia above (4) Acute on chronic right-sided congestive heart failure: With preserved EF. Decompensated cor pulmonale. Poor response to bumex drip in setting of ESRD earlier this stay. s/p initiation of HD 03/27/18 due to worsening volume status. Improving (5) Pulmonary hypertension: severe, w/ resulting cor pulmonale. (6) Essential hypertension: controlled. continue hydralazine 25 bid, Toprol 100 qday. (7) S/P placement of cardiac pacemaker: pacer dependent. (8) Diabetes mellitus: With hypoglycemia previously which is now improved with reduction in Lantus, however had some today as she was in HD during lunch -further reduce Lantus to 12 units bid and loosen SSI (9) Atrial fibrillation: remains on coumadin. INR goal is 2.5 to 3.5 due to mechanical mitral valve. INR now therapeutic -Continue Coumadin current dosing -dc bridging -Follow PT/INR -Continue digoxin, Toprol-XL 100 mg daily -repeat digoxin level in AM given renal failure (10) Asthma: no exacerbation at this time. (11) COPD (chronic obstructive pulmonary disease): without exacerbation at this time. (12) Pleural effusion, right: chronic pleurX catheter in place x 1 year. 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 at risk of hepatic encephalopathy. observe for signs of such. (14) Hypothyroidism: TSH normal at 2.1 in 10/2017 -Cont synthroid. (15) Hypokalemia: resolved. (16) Hyponatremia: Secondary to renal failure Na+ 128 today -Follow BMP (17) H/O mitral valve replacement with mechanical valve: INR goal 2.5 to 3.5. INR now therapeutic today -dcd bridging as above -Continue Coumadin -Follow PT/INR She has also had bleeding issues from the right groin which is now resolved (18) UTI (urinary tract infection): Had dysuria on 03/31, UA was abnormal and urine culture growing pansensitive E. coli -Received 3 days of Rocephin, now transition to Omnicef 300mg po qday (renal dosing) for 4 more days (19) DVT prophylaxis: coumadin Disposition-remain in hospital on telemetry, likely dc Fri or to [facility] after auth obtained on Fri, outpt HD to start 04/08 DNR/DNI Subjective Pt still feeling fatigued. Has a mildly productive cough no worse from previous. Had HD and PRBC transfusion today. No further dysuria. No CP or increased dyspnea over her baseline. She reports she does not take Vickie and Singulair in the winter time. No bleeding from anywhere today Discussed the case with Pharmacy and Nephrology today. Review of Systems All systems reviewed & are unremarkable except as noted in HPI & below Physical Exam 2 Vital Signs (Past 24 Hours): Last Vital Signs Temp 36.6 C 04/03/18 13:50 Pulse 60 04/03/18 13:50 Resp 18 04/03/18 12:45 BP 135/57 L 04/03/18 13:50 Pulse Ox 99 04/03/18 12:45 Constitutional: WD/WN, vitals as above (Chronically ill-appearing) Eyes: PERRL, conjunctivae normal, anicteric sclerae + conjunctival abnormality (improved conjunctival erythema on the left with no further lid and lash yellow crust, upper lid with resolved erythema), PERRL and EOM intact bilaterally ENMT: external ear and nose normal, oropharynx normal Neck: trachea midline, no thyromegaly Respiratory: normal respiratory effort Auscultation: + crackles (At the bases); no wheezes Cardiovascular: Rate/Rhythm: regular rate; + abnormal rhythm (Irregularly irregular) Heart Sounds: + murmur (At the apex with loud S2) Extremities: + edema (2+ pitting edema in the legs bilaterally, stable from previous) and + vascular access device (rt anterior chest wall with perm cath in place, no erythema; rt groin with pressure dressing in place that is c/d/i) Gastrointestinal (Abdomen): normal bowel sounds, soft, nontender, no hepatosplenomegaly (Mild distention) Musculoskeletal: Extremities: extremities normal to inspection; no cyanosis and no clubbing Skin: no rashes, warm and dry + wound (Right neck and anterior chest wall with PermCath in place with dressings intact, clean dry and intact; right groin without bleeding) Neurologic: moves all extremities and awake; no focal motor deficits Psychiatric: A+Ox3, euthymic affect Orientation: alert and oriented x 3 Affect: + depressed affect Results & Data Laboratory Results 04/03/18 04/03/18 04/03/18 Range/Units 20:59 16:28 14:26 WBC (4.8-10.8) K/uL RBC (4.2-5.4) M/uL Hgb (12.0-16.0) g/dL Hct (37-47) % MCV (80-100) fL MCH (25-34) pg MCHC (32-36) g/dL RDW Std Deviation (36.4-46.3) fL RDW Coeff of Marco (11.5-14.5) % Plt Count (130-400) K/uL MPV (7.4-10.4) fL Immature Gran % (Auto) % Neut % (Auto) % Lymph % (Auto) % Greer % (Auto) % Eos % (Auto) % Baso % (Auto) % Immature Gran # (Auto) (0.00-0.02) K/uL Neut # (Auto) (1.4-6.5) K/uL Lymph # (Auto) (1.2-3.4) K/uL Greer # (Auto) (0.11-0.59) K/uL Eos # (Auto) (0-0.5) K/uL Baso # (Auto) (0-0.2) K/uL Polychromasia Hypochromasia Basophilic Stippling Anisocytosis PT (9.0-12.0) Seconds INR (0.9-1.1) APTT (21.0-31.0) Seconds PTT Ratio Sodium (136-145) mmol/L Potassium (3.5-5.1) mmol/L Chloride (98-107) mmol/L Carbon Dioxide (21-32) mmol/L Anion Gap (3-11) BUN (7-18) mg/dl Creatinine (0.6-1.2) mg/dl Est Cr Clr Drug Dosing ml/min Est GFR ( Amer) Est GFR (Non-Af Amer) BUN/Creatinine Ratio (10-20) Glucose (70-99) mg/dl POC Glucose 128 H 126 H 96 (70-99) Calcium (8.5-10.1) mg/dl Blood Type Antibody Screen Antibody Identification Direct Antiglob Test (Negative) REYES (IgG-AHG) (Negative) REYES, Polyspecific (Negative) REYES C3b, C3d 5 Min (Negative) Crossmatch 04/03/18 04/03/18 04/03/18 Range/Units 14:03 14:02 08:55 WBC (4.8-10.8) K/uL RBC (4.2-5.4) M/uL Hgb (12.0-16.0) g/dL Hct (37-47) % MCV (80-100) fL MCH (25-34) pg MCHC (32-36) g/dL RDW Std Deviation (36.4-46.3) fL RDW Coeff of Marco (11.5-14.5) % Plt Count (130-400) K/uL MPV (7.4-10.4) fL Immature Gran % (Auto) % Neut % (Auto) % Lymph % (Auto) % Greer % (Auto) % Eos % (Auto) % Baso % (Auto) % Immature Gran # (Auto) (0.00-0.02) K/uL Neut # (Auto) (1.4-6.5) K/uL Lymph # (Auto) (1.2-3.4) K/uL Greer # (Auto) (0.11-0.59) K/uL Eos # (Auto) (0-0.5) K/uL Baso # (Auto) (0-0.2) K/uL Polychromasia Hypochromasia Basophilic Stippling Anisocytosis PT (9.0-12.0) Seconds INR (0.9-1.1) APTT (21.0-31.0) Seconds PTT Ratio Sodium (136-145) mmol/L Potassium (3.5-5.1) mmol/L Chloride (98-107) mmol/L Carbon Dioxide (21-32) mmol/L Anion Gap (3-11) BUN (7-18) mg/dl Creatinine (0.6-1.2) mg/dl Est Cr Clr Drug Dosing ml/min Est GFR ( Amer) Est GFR (Non-Af Amer) BUN/Creatinine Ratio (10-20) Glucose (70-99) mg/dl POC Glucose 69 L* 64 L* (70-99) Calcium (8.5-10.1) mg/dl Blood Type A Positive Antibody Screen POSITIVE A Antibody Identification Anti-c Direct Antiglob Test Negative (Negative) REYES (IgG-AHG) Neg (Negative) REYES, Polyspecific Neg (Negative) REYES C3b, C3d 5 Min Neg (Negative) Crossmatch See Detail 04/03/18 04/03/18 04/03/18 Range/Units 07:36 06:34 06:34 WBC (4.8-10.8) K/uL RBC (4.2-5.4) M/uL Hgb (12.0-16.0) g/dL Hct (37-47) % MCV (80-100) fL MCH (25-34) pg MCHC (32-36) g/dL RDW Std Deviation (36.4-46.3) fL RDW Coeff of Marco (11.5-14.5) % Plt Count (130-400) K/uL MPV (7.4-10.4) fL Immature Gran % (Auto) % Neut % (Auto) % Lymph % (Auto) % Greer % (Auto) % Eos % (Auto) % Baso % (Auto) % Immature Gran # (Auto) (0.00-0.02) K/uL Neut # (Auto) (1.4-6.5) K/uL Lymph # (Auto) (1.2-3.4) K/uL Greer # (Auto) (0.11-0.59) K/uL Eos # (Auto) (0-0.5) K/uL Baso # (Auto) (0-0.2) K/uL Polychromasia Hypochromasia Basophilic Stippling Anisocytosis PT 26.7 H (9.0-12.0) Seconds INR 2.8 H (0.9-1.1) APTT 41.7 H (21.0-31.0) Seconds PTT Ratio 1.6 Sodium 128 L (136-145) mmol/L Potassium 4.5 (3.5-5.1) mmol/L Chloride 96 L (98-107) mmol/L Carbon Dioxide 24 (21-32) mmol/L Anion Gap 8.0 (3-11) BUN 38 H (7-18) mg/dl Creatinine 2.96 H D (0.6-1.2) mg/dl Est Cr Clr Drug Dosing 16.3 ml/min Est GFR ( Amer) 17.2 Est GFR (Non-Af Amer) 14.8 BUN/Creatinine Ratio 12.8 (10-20) Glucose 92 (70-99) mg/dl POC Glucose 101 H (70-99) Calcium 8.0 L (8.5-10.1) mg/dl Blood Type Antibody Screen Antibody Identification Direct Antiglob Test (Negative) REYES (IgG-AHG) (Negative) REYES, Polyspecific (Negative) REYES C3b, C3d 5 Min (Negative) Crossmatch 04/03/18 03/29/18 03/25/18 Range/Units 06:34 19:04 13:28 WBC 5.33 (4.8-10.8) K/uL RBC 2.64 L (4.2-5.4) M/uL Hgb 7.6 L (12.0-16.0) g/dL Hct 24.4 L (37-47) % MCV 92.4 (80-100) fL MCH 28.8 (25-34) pg MCHC 31.1 L (32-36) g/dL RDW Std Deviation 63.9 H (36.4-46.3) fL RDW Coeff of Marco 19.2 H (11.5-14.5) % Plt Count 153 (130-400) K/uL MPV 9.4 (7.4-10.4) fL Immature Gran % (Auto) 0.6 % Neut % (Auto) 64.5 % Lymph % (Auto) 11.8 % Greer % (Auto) 18.2 % Eos % (Auto) 4.5 % Baso % (Auto) 0.4 % Immature Gran # (Auto) 0.03 H (0.00-0.02) K/uL Neut # (Auto) 3.44 (1.4-6.5) K/uL Lymph # (Auto) 0.63 L (1.2-3.4) K/uL Greer # (Auto) 0.97 H (0.11-0.59) K/uL Eos # (Auto) 0.24 (0-0.5) K/uL Baso # (Auto) 0.02 (0-0.2) K/uL Polychromasia 1+ Hypochromasia Present Basophilic Stippling 1+ Anisocytosis Present PT (9.0-12.0) Seconds INR (0.9-1.1) APTT (21.0-31.0) Seconds PTT Ratio Sodium (136-145) mmol/L Potassium (3.5-5.1) mmol/L Chloride (98-107) mmol/L Carbon Dioxide (21-32) mmol/L Anion Gap (3-11) BUN (7-18) mg/dl Creatinine (0.6-1.2) mg/dl Est Cr Clr Drug Dosing ml/min Est GFR ( Amer) Est GFR (Non-Af Amer) BUN/Creatinine Ratio (10-20) Glucose (70-99) mg/dl POC Glucose (70-99) Calcium (8.5-10.1) mg/dl Blood Type Antibody Screen Antibody Identification Direct Antiglob Test (Negative) REYES (IgG-AHG) (Negative) REYES, Polyspecific (Negative) REYES C3b, C3d 5 Min (Negative) Crossmatch See Detail See Detail _ (1) Diabetes mellitus Chronic kidney disease stage: stage 4 (severe) Diabetes mellitus complication detail: with chronic kidney disease Diabetes mellitus complication status: with kidney complications 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 or 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 insulin use: with correction use Diabetes mellitus macular edema: Diabetes mellitus type: type 2 Diabetic retinopathy severity: Laterality: Proliferative retinopathy type: Qualified Code(s): E11.22 - Type 2 diabetes mellitus with diabetic chronic kidney disease; N18.4 - Chronic kidney disease, stage 4 (severe); 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.4 - 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 worker (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 of insulin (2) Atrial fibrillation Atrial fibrillation type: chronic Qualified Code(s): I48.2 - Chronic atrial fibrillation (3) Hypothyroidism Hypothyroidism type: acquired Qualified Code(s): E03.9 - Hypothyroidism, unspecified (4) Cirrhosis Ascites presence: Hepatic cirrhosis type: other cirrhosis Qualified Code(s) : K74.69 - Other cirrhosis of liver (5) COPD (chronic obstructive pulmonary disease) COPD type: unspecified COPD Chronic bronchitis type: Emphysema type: Qualified Code(s): J44.9 - Chronic obstructive pulmonary disease, unspecified (6) Asthma Asthma complication type: uncomplicated Asthma persistence: unspecified Asthma severity: unspecified severity Qualified Code(s): J45.909 - Unspecified asthma, uncomplicated
[2018-04-03] MEDS: EZETIMIBE 10 MG TABLET PO SCH (21:37)
[2018-04-03] MEDS: diazePAM 5 MG TABLET PO PRN (22:39)
[2018-04-04] MEDS: NEOMYCIN/POLYMYXIN/HYDROCORT OPH SUSP 7.5 ML BTL OP SCH ×8 (00:18→22:23)
[2018-04-04] MEDS: ACETAMINOPHEN 325 MG TAB PO PRN (00:47)
[2018-04-04] MEDS: OXYCODONE HCL IR 5 MG TAB (IMMEDIATE RELEASE) PO PRN (04:51)
[2018-04-04 06:31] LABS: Hematocrit (blood only) 28.9 % (37-47); Mean Corpuscular Hgb Conc 31.1 g/dL (32-36); Mean Corpuscular Volume 93.5 fL (80-100); Mean Platelet Volume 9.8 fL (7.4-10.4); Platelet Count 156 K/uL (130-400); RDW Coefficient of Variation 18.7 % (11.5-14.5); RDW Standard Deviation 63.4 fL (36.4-46.3); Red Blood Count 3.09 M/uL (4.2-5.4); White Blood Count 4.72 K/uL (4.8-10.8)
[2018-04-04] MEDS: LEVOTHYROXINE SODIUM 175 MCG TABLET PO SCH (06:38)
[2018-04-04 07:00] LABS: Albumin Level 2.6 gm/dl (3.4-5.0); BUN Creatinine Ratio 9.4 (10-20); Calcium 8.4 mg/dl (8.5-10.1); Creatinine Clr Calc Pharmacy 18.9 ml/min; Est GFR (African American) 21.1; Est GFR (Non-African American) 18.2; Phosphorus 3.4 mg/dl (2.5-4.9); Potassium 4.3 mmol/L (3.5-5.1)
[2018-04-04] MEDS: TROSPIUM ~ ORDER AWAITING ACTION SCH ×2 (08:43→16:22)
[2018-04-04] MEDS: PANTOprazole 40 MG TAB PO SCH (08:54)
[2018-04-04] MEDS: NEPHROCAPS PO SCH (08:54)
[2018-04-04] MEDS: METOPROLOL SUCC 50MG EXT REL TAB PO SCH (08:54)
[2018-04-04] MEDS: DIGOXIN 0.125 MG TAB PO SCH (08:55)
[2018-04-04] MEDS: SACCHAROMYCES BOULARDII 250 MG CAP PO SCH (08:55)
[2018-04-04] MEDS: DICLOFENAC SOD 1% GEL 100 GM TUBE EXT SCH ×4 (08:57→20:55)
[2018-04-04] MEDS: NYSTATIN POWDER 15GM BTL EXT SCH ×4 (08:58→20:57)
[2018-04-04] MEDS: CEFDINIR 300 MG CAP PO SCH (08:58)
[2018-04-04] MEDS: INSULIN GLARGINE 100 UNIT/ML VIAL SC SCH ×2 (09:04→20:54)
[2018-04-04] MEDS: INSULIN ASPART 100 UNITS/ML 3 ML PEN SC SCH ×4 (09:06→20:56)
--- NOTE | 2018-04-04 10:27 | Nephrology Progress Note ---
Date of Service April 04, 2018 Assessment & Plan (1) End stage renal disease: Mrs. Morales was admitted to [facility] for evaluation of weakness and tense LE swelling limiting her ability to ambulate. She has severe pulmonary HTN resulting in R heart failure and cardiac cirrhosis. She has a chronic R Pleur- x catheter in place. Diuretic therapy has been met with worsening renal insufficiency and progressive azotemia and started on HD 03/27/18. Medical hx is also significant for chronic anemia requiring IV iron and IBNH therapy. -- Volume status is mildly improved. Electrolyte balance is acceptable. Will hold HD today and reassess in am -- on calcitriol 0.25 mcg 3 times a week and renal vitamin daily -- encourage patient to increase protein intake -- Recommend PT evaluation for ROM and strengthening exercises over the weekend -- Discharge planning notes reviewed this am: Plan transfer to [facility] next week w/ outpatient HD at [facility] Mrs. Morales was seen in her hospital room this morning. She was dialyzed yesterday for 3 L UF. She was transfused one unit PRBC during HD. There were no complications. Mrs. Morales has persistent LE swelling and MYLES. She requires O2 at 2 L / min NC. Respiratory: + dyspnea on exertion Cardiovascular: + edema (tense LE swelling limiting her ability to walk); no chest pain Gastrointestinal: + nausea; no vomiting Physical Exam 2 Vital Signs (Past 24 Hours): Last Vital Signs Temp 36.3 C L 04/04/18 07:35 Pulse 64 04/04/18 07:35 Resp 20 04/04/18 07:35 BP 117/54 L 04/04/18 07:35 Pulse Ox 93 04/04/18 07:35 Constitutional: + obese (chronically ill appearing) Eyes: PERRL, conjunctivae normal, anicteric sclerae Neck: trachea midline, no thyromegaly Respiratory: no respiratory distress Auscultation: + rales (at the bases bilaterally) Cardiovascular: Rate/Rhythm: regular rate Vessels: + JVD (to the angle of the jaw while seated upright) Extremities: + edema (tense bilateral LE edema ) Gastrointestinal (Abdomen): Inspection/Auscultation: + abdomen distended and normal bowel sounds Results & Data Laboratory Results Laboratory Tests 04/04/18 04/04/18 06:04 06:04 WBC 4.72 L Hgb 9.0 L Hct 28.9 L Plt Count 156 Sodium 129 L Potassium 4.3 Chloride 95 L Carbon Dioxide 26 BUN 23 H Creatinine 2.50 H D Glucose 80
[2018-04-04 14:43] LABS: INR 1.9 (0.9-1.1); Prothrombin Time 18.3 Seconds (9.0-12.0)
[2018-04-04] MEDS: WARFARIN SOD 3 MG TAB PO SCH (16:22)
[2018-04-04] MEDS: EZETIMIBE 10 MG TABLET PO SCH (20:54)
[2018-04-04] MEDS: diazePAM 5 MG TABLET PO PRN (22:22)
--- NOTE | 2018-04-05 00:14 | Hospitalist Progress Note ---
Date of Service April 04, 2018 Assessment & Plan (1) End stage renal disease: s/p permcath placement now on M/W/F HD schedule slowly removing volume watch permcath carefully for worsening bleeding appreciate vascular & nephrology consults & assistance (2) H/O mitral valve replacement with mechanical valve: INR goal 2.5 to 3.5 recheck INR today, then again in am follows with Dr. Lunsford previous echos with intact valve function (3) Hyponatremia: ongoing, multifactorial BMP in am (4) Acute on chronic right-sided congestive heart failure: improving with initiation of HD (5) Acute on chronic anemia: s/p multiple units of PRBCs this week recheck CBC am (6) Hypothyroidism: synthroid (7) Atrial fibrillation: paced on monitor takes chronic coumadin (8) Cirrhosis: contributes to volume overload status (9) Pleural effusion, right: drain pleurX catheter daily (10) COPD (chronic obstructive pulmonary disease): (11) UTI (urinary tract infection): day #4 of abx plan 7 days of Rx Subjective patient reports she had bleeding from her permcath today with pressure and applying a new dressing the bleeding stopped had mild orthopnea today - placed the NC o2 back on overall feeling some better in comparison to my previous visit with her Constitutional: no fever Respiratory: + cough Cardiovascular: no chest pain Gastrointestinal: + bloating; no abdominal pain Physical Exam 2 Vital Signs (Past 24 Hours): Last Vital Signs Temp 36.7 C 04/04/18 19:22 Pulse 62 04/04/18 19:22 Resp 18 04/04/18 19:22 BP 120/56 L 04/04/18 19:22 Pulse Ox 100 04/04/18 19:22 Constitutional: + ill appearing; no acute distress ENMT: external ear and nose normal, oropharynx normal Respiratory: normal respiratory effort, lungs clear to auscultation Cardiovascular: Rate/Rhythm: regular rate and regular rhythm Heart Sounds: normal S1, normal S2 (mechanical valve sound; s2 is widely split) and + murmur ( 2/6 LLSB) Vessels: + JVD, posterior tibial pulses present and dorsalis pedis pulses present Extremities: + edema (2-3+ b/l ) Gastrointestinal (Abdomen): Inspection/Auscultation: + abdomen distended and normal bowel sounds Percussion/Palpation: abdomen nontender, no guarding, abdomen not rigid and no hepatosplenomegaly Psychiatric: Orientation: alert and oriented x 3 Mood: + depressed mood Results & Data Laboratory Results Laboratory Results - last 24 hr 04/03/18 04/04/18 04/04/18 08:55 06:04 06:04 WBC 4.72 L RBC 3.09 L Hgb 9.0 L Hct 28.9 L MCV 93.5 MCH 29.1 MCHC 31.1 L RDW Std Deviation 63.4 H RDW Coeff of Marco 18.7 H Plt Count 156 MPV 9.8 PT INR Sodium 129 L Potassium 4.3 Chloride 95 L Carbon Dioxide 26 Anion Gap 8.0 BUN 23 H Creatinine 2.50 H D Est Cr Clr Drug Dosing 18.9 Est GFR ( Amer) 21.1 Est GFR (Non-Af Amer) 18.2 BUN/Creatinine Ratio 9.4 L Glucose 80 POC Glucose Calcium 8.4 L Phosphorus 3.4 Albumin 2.6 L Digoxin Crossmatch See Detail 04/04/18 04/04/18 04/04/18 06:04 07:44 11:13 WBC RBC Hgb Hct MCV MCH MCHC RDW Std Deviation RDW Coeff of Marco Plt Count MPV PT INR Sodium Potassium Chloride Carbon Dioxide Anion Gap BUN Creatinine Est Cr Clr Drug Dosing Est GFR ( Amer) Est GFR (Non-Af Amer) BUN/Creatinine Ratio Glucose POC Glucose 91 125 H Calcium Phosphorus Albumin Digoxin 1.1 Crossmatch 04/04/18 04/04/18 04/04/18 14:07 16:50 19:59 WBC RBC Hgb Hct MCV MCH MCHC RDW Std Deviation RDW Coeff of Marco Plt Count MPV PT 18.3 H INR 1.9 H Sodium Potassium Chloride Carbon Dioxide Anion Gap BUN Creatinine Est Cr Clr Drug Dosing Est GFR ( Amer) Est GFR (Non-Af Amer) BUN/Creatinine Ratio Glucose POC Glucose 137 H 128 H Calcium Phosphorus Albumin Digoxin Crossmatch _ (1) Hypothyroidism Hypothyroidism type: acquired Qualified Code(s): E03.9 - Hypothyroidism, unspecified (2) Atrial fibrillation Atrial fibrillation type: chronic Qualified Code(s): I48.2 - Chronic atrial fibrillation (3) Cirrhosis Hepatic cirrhosis type: other cirrhosis Ascites presence: Qualified Code(s) : K74.69 - Other cirrhosis of liver (4) COPD (chronic obstructive pulmonary disease) COPD type: unspecified COPD Chronic bronchitis type: Emphysema type: Qualified Code(s): J44.9 - Chronic obstructive pulmonary disease, unspecified (5) UTI (urinary tract infection) Urinary tract infection type: acute cystitis Hematuria presence: without hematuria Qualified Code(s): N30.00 - Acute cystitis without hematuria
[2018-04-05] MEDS: TROSPIUM ~ ORDER AWAITING ACTION SCH ×3 (00:54→15:52)
[2018-04-05] MEDS: NEOMYCIN/POLYMYXIN/HYDROCORT OPH SUSP 7.5 ML BTL OP SCH ×8 (00:56→21:01)
[2018-04-05] MEDS: ACETAMINOPHEN 325 MG TAB PO PRN ×2 (03:03→19:59)
[2018-04-05 05:54] LABS: Hematocrit (blood only) 26.8 % (37-47); Hemoglobin 8.2 g/dL (12.0-16.0); Mean Corpuscular Hgb Conc 30.6 g/dL (32-36); Mean Corpuscular Volume 93.4 fL (80-100); Mean Platelet Volume 9.5 fL (7.4-10.4); Platelet Count 148 K/uL (130-400); RDW Coefficient of Variation 18.5 % (11.5-14.5); RDW Standard Deviation 62.5 fL (36.4-46.3); Red Blood Count 2.87 M/uL (4.2-5.4); White Blood Count 5.26 K/uL (4.8-10.8)
[2018-04-05 06:08] LABS: INR 1.8 (0.9-1.1); Prothrombin Time 17.2 Seconds (9.0-12.0)
[2018-04-05] MEDS: LEVOTHYROXINE SODIUM 175 MCG TABLET PO SCH (06:22)
[2018-04-05 06:33] LABS: Calcium 8.5 mg/dl (8.5-10.1); Est GFR (African American) 18.5; Potassium 5.2 mmol/L (3.5-5.1)
--- NOTE | 2018-04-05 09:54 | Nephrology Progress Note ---
Date of Service April 05, 2018 Assessment & Plan (1) End stage renal disease: Mrs. Morales was admitted to [facility] for evaluation of weakness and tense LE swelling limiting her ability to ambulate. She has severe pulmonary HTN resulting in R heart failure and cardiac cirrhosis. She has a chronic R Pleur- x catheter in place. Diuretic therapy has been met with worsening renal insufficiency and progressive azotemia and started on HD 03/27/18. Medical hx is also significant for chronic anemia requiring IV iron and BINH therapy. -- Volume status is mildly improved. Electrolyte balance is acceptable. Will schedule next HD for am. (2) Anemia: -- Will provide BINH w/ HD tomorrow (3) Chronic kidney disease-mineral and bone disorder: -- on Calcitriol 0.25 mcg 3 times a week and renal vitamin daily (4) Nutrition disorder: -- encourage patient to increase protein intake (5) Discharge planning issues: -- Recommend PT evaluation for ROM and strengthening exercises over the weekend -- Discharge planning notes reviewed this am: Plan transfer to [facility] next week w/ outpatient HD at [facility] Mrs. Morales was seen in her hospital room this morning. She has had bleeding from her R IJ THC overnight. RN notified. Pressure dressing is currently in place. Patient is breathing comfortably on O2 at 2L/min NC. She denies angina. Respiratory: + dyspnea on exertion Cardiovascular: + edema (tense LE swelling limiting her ability to walk); no chest pain Physical Exam 2 Vital Signs (Past 24 Hours): Last Vital Signs Temp 36.9 C 04/05/18 07:34 Pulse 66 04/05/18 07:34 Resp 18 04/05/18 07:34 BP 120/41 L 04/05/18 07:34 Pulse Ox 99 04/05/18 07:34 Constitutional: + obese (chronically ill appearing) Eyes: PERRL, conjunctivae normal, anicteric sclerae Neck: trachea midline, no thyromegaly Respiratory: no respiratory distress Auscultation: + rales (at the bases bilaterally) Cardiovascular: Rate/Rhythm: regular rate Vessels: + JVD (to the angle of the jaw while seated upright) Extremities: + edema (tense bilateral LE edema ) Gastrointestinal (Abdomen): Inspection/Auscultation: + abdomen distended and normal bowel sounds Results & Data Laboratory Results Laboratory Tests 04/05/18 04/05/18 04/05/18 05:35 05:35 05:35 WBC 5.26 Hgb 8.2 L Hct 26.8 L Plt Count 148 INR 1.8 H Sodium 130 L Potassium 5.2 H D Chloride 97 L Carbon Dioxide 26 Creatinine 2.78 H _ (1) Anemia Anemia type: unspecified type Bone marrow failure anemia type: Chronic kidney disease stage: Folate deficiency anemia type: Hemolytic anemia type: Iron deficiency anemia type: Other causes of anemia: Vitamin B12 deficiency anemia type: Qualified Code(s): D64.9 - Anemia, unspecified
[2018-04-05] MEDS: NEPHROCAPS PO SCH (09:59)
[2018-04-05] MEDS: PANTOprazole 40 MG TAB PO SCH (09:59)
[2018-04-05] MEDS: DICLOFENAC SOD 1% GEL 100 GM TUBE EXT SCH ×4 (10:00→20:59)
[2018-04-05] MEDS: CEFDINIR 300 MG CAP PO SCH (10:01)
[2018-04-05] MEDS: SACCHAROMYCES BOULARDII 250 MG CAP PO SCH (10:02)
[2018-04-05] MEDS: DIGOXIN 0.125 MG TAB PO SCH (10:02)
[2018-04-05] MEDS: NYSTATIN POWDER 15GM BTL EXT SCH ×4 (10:04→21:00)
[2018-04-05] MEDS ORDERED: SODIUM CHLORIDE 0.9% 1000ML 1,000 ML IV PRN (10:05)
[2018-04-05] MEDS: INSULIN ASPART 100 UNITS/ML 3 ML PEN SC SCH ×4 (10:06→21:00)
[2018-04-05] MEDS: INSULIN GLARGINE 100 UNIT/ML VIAL SC SCH ×2 (10:07→21:00)
[2018-04-05] MEDS: METOPROLOL SUCC 50MG EXT REL TAB PO SCH (10:13)
[2018-04-05] MEDS ORDERED: FEXOFENADINE 60 MG TAB PO ONE (13:41)
[2018-04-05] MEDS: WARFARIN SOD 3 MG TAB PO SCH (15:51)
[2018-04-05] MEDS: TRIAMCINOLONE ACET 0.1% CR 15 GM TUBE EXT SCH ×2 (17:18→21:00)
[2018-04-05] MEDS: EUCERIN CR 120 GM JAR EXT PRN (18:47)
--- NOTE | 2018-04-05 20:28 | Hospitalist Progress Note ---
Date of Service April 05, 2018 Assessment & Plan (1) End stage renal disease: s/p permcath placement M/W/F HD schedule slowly removing volume - was massively volume-overloaded at time of presentation due to cirrhosis/right-sided heart failure, worsening renal disease , etc nephrology/vascular aware of bleeding from permcath site; bleeding appears to have stopped at this time (2) H/O mitral valve replacement with mechanical valve: INR goal 2.5 to 3.5 INR subtherapeutic, but due to bleeding from permcath site, will not give additional coumadin today if INR falls further then will start heparin bridge again follows with Dr. Lunsford previous echos with acceptable valve function (3) Hyponatremia: ongoing, multifactorial BMP stable today (4) Acute on chronic right-sided congestive heart failure: volume status slowly improving with initiation of HD (5) Acute on chronic anemia: s/p multiple units of PRBCs this admission H/H acceptable today recheck CBC am (6) Hypothyroidism: synthroid most recent TSH acceptable (7) Atrial fibrillation: paced on monitor takes chronic coumadin see discussion above (8) Cirrhosis: contributes to volume overload status no evidence of any hepatic encephalopathy (9) Pleural effusion, right: drain pleurX catheter daily (10) COPD (chronic obstructive pulmonary disease): stable (11) UTI (urinary tract infection): day #5 of abx (cefdinir) plan 7 days of Rx (12) DVT prophylaxis: coumadin for dry skin and itching - eucerin with triamcinolone cream TID in thin amounts in problem areas sohan 60mg BID Subjective patient c/o pruritis on arms, legs, feet took benadryl last pm; made her sleepy tele with paced rhythm and some a. fib feels like she has more edema today biggest complaint is that of ongoing issues with bleeding from permcath Constitutional: + fatigue Respiratory: + cough Cardiovascular: no chest pain Gastrointestinal: + bloating; no nausea, no vomiting, no constipation and no diarrhea/loose stools Physical Exam 2 Vital Signs (Past 24 Hours): Last Vital Signs Temp 36.6 C 04/05/18 20:00 Pulse 61 04/05/18 20:00 Resp 21 04/05/18 20:00 BP 125/53 L 04/05/18 20:00 Pulse Ox 100 04/05/18 20:00 Constitutional: + ill appearing; no acute distress ENMT: external ear and nose normal, oropharynx normal Respiratory: Auscultation: + diminished lung sounds (bases) Cardiovascular: Rate/Rhythm: regular rate and regular rhythm Heart Sounds: normal S1, normal S2 (mech valve sound; s2 remains widely split) and + murmur (2 /6 LLSB) Vessels: + JVD, posterior tibial pulses present and dorsalis pedis pulses present Extremities: + edema (severe, 2-3+ to the knees) Gastrointestinal (Abdomen): Inspection/Auscultation: + abdomen distended and normal bowel sounds Percussion/Palpation: + hepatomegaly; abdomen nontender Skin: severely dry skin legs, feet, shins right chest - large dressings in place over permcath site; no active bleeding during my visit Psychiatric: Orientation: alert and oriented x 3 Mood: + depressed mood Results & Data Laboratory Results Laboratory Results - last 24 hr 04/05/18 04/05/18 04/05/18 05:35 05:35 05:35 WBC 5.26 RBC 2.87 L Hgb 8.2 L Hct 26.8 L MCV 93.4 MCH 28.6 MCHC 30.6 L RDW Std Deviation 62.5 H RDW Coeff of Marco 18.5 H Plt Count 148 MPV 9.5 PT 17.2 H INR 1.8 H Sodium 130 L Potassium 5.2 H D Chloride 97 L Carbon Dioxide 26 Anion Gap 7.0 BUN 36 H D Creatinine 2.78 H Est Cr Clr Drug Dosing 17.0 Est GFR ( Amer) 18.5 Est GFR (Non-Af Amer) 16.0 BUN/Creatinine Ratio 13.0 Glucose 97 POC Glucose Calcium 8.5 04/05/18 04/05/18 04/05/18 07:48 11:23 16:26 WBC RBC Hgb Hct MCV MCH MCHC RDW Std Deviation RDW Coeff of Marco Plt Count MPV PT INR Sodium Potassium Chloride Carbon Dioxide Anion Gap BUN Creatinine Est Cr Clr Drug Dosing Est GFR ( Amer) Est GFR (Non-Af Amer) BUN/Creatinine Ratio Glucose POC Glucose 91 132 H 108 H Calcium _ (1) Hypothyroidism Hypothyroidism type: acquired Qualified Code(s): E03.9 - Hypothyroidism, unspecified (2) Atrial fibrillation Atrial fibrillation type: chronic Qualified Code(s): I48.2 - Chronic atrial fibrillation (3) Cirrhosis Hepatic cirrhosis type: other cirrhosis Ascites presence: Qualified Code(s) : K74.69 - Other cirrhosis of liver (4) COPD (chronic obstructive pulmonary disease) COPD type: unspecified COPD Chronic bronchitis type: Emphysema type: Qualified Code(s): J44.9 - Chronic obstructive pulmonary disease, unspecified (5) UTI (urinary tract infection) Urinary tract infection type: acute cystitis Hematuria presence: without hematuria Indwelling urinary catheter type: Encounter type: Qualified Code( s): N30.00 - Acute cystitis without hematuria
[2018-04-05] MEDS: FEXOFENADINE 60 MG TAB PO SCH (21:00)
[2018-04-05] MEDS: EZETIMIBE 10 MG TABLET PO SCH (21:00)
[2018-04-05] MEDS: diazePAM 5 MG TABLET PO PRN (22:03)
[2018-04-06] MEDS: TROSPIUM ~ ORDER AWAITING ACTION SCH ×4 (00:35→23:57)
[2018-04-06] MEDS: NEOMYCIN/POLYMYXIN/HYDROCORT OPH SUSP 7.5 ML BTL OP SCH ×8 (01:09→22:09)
[2018-04-06] MEDS: EUCERIN CR 120 GM JAR EXT PRN (01:17)
[2018-04-06] MEDS ORDERED: EPOETIN ALFA 10,000 UNITS/ML VIAL IV ONE (06:00)
[2018-04-06] MEDS: LEVOTHYROXINE SODIUM 175 MCG TABLET PO SCH (06:04)
[2018-04-06 06:20] LABS: Hematocrit (blood only) 24.8 % (37-47); Hemoglobin 7.6 g/dL (12.0-16.0); Mean Corpuscular Hgb Conc 30.6 g/dL (32-36); Mean Corpuscular Volume 94.7 fL (80-100); Mean Platelet Volume 9.7 fL (7.4-10.4); Platelet Count 150 K/uL (130-400); RDW Coefficient of Variation 18.8 % (11.5-14.5); RDW Standard Deviation 63.8 fL (36.4-46.3); Red Blood Count 2.62 M/uL (4.2-5.4)
[2018-04-06 06:29] LABS: INR 1.6 (0.9-1.1)
[2018-04-06 06:57] LABS: BUN Creatinine Ratio 14.8 (10-20); Calcium 8.2 mg/dl (8.5-10.1); Creatinine Clr Calc Pharmacy 14.4 ml/min; Est GFR (African American) 14.9; Est GFR (Non-African American) 12.9; Potassium 5.7 mmol/L (3.5-5.1)
[2018-04-06] MEDS: DICLOFENAC SOD 1% GEL 100 GM TUBE EXT SCH ×4 (09:10→20:58)
[2018-04-06] MEDS: CEFDINIR 300 MG CAP PO SCH (09:10)
[2018-04-06] MEDS: PANTOprazole 40 MG TAB PO SCH (09:11)
[2018-04-06] MEDS: SACCHAROMYCES BOULARDII 250 MG CAP PO SCH (09:11)
[2018-04-06] MEDS: NEPHROCAPS PO SCH (09:11)
[2018-04-06] MEDS: DIGOXIN 0.125 MG TAB PO SCH (09:12)
[2018-04-06] MEDS: CALCITRIOL 0.25 MCG CAPSULE PO SCH (09:12)
[2018-04-06] MEDS: INSULIN ASPART 100 UNITS/ML 3 ML PEN SC SCH ×4 (09:29→22:14)
[2018-04-06] MEDS: INSULIN GLARGINE 100 UNIT/ML VIAL SC SCH ×2 (09:31→22:14)
[2018-04-06] MEDS: NYSTATIN POWDER 15GM BTL EXT SCH ×4 (09:34→20:56)
[2018-04-06] MEDS: TRIAMCINOLONE ACET 0.1% CR 15 GM TUBE EXT SCH ×3 (09:34→20:58)
--- NOTE | 2018-04-06 09:34 | Nephrology Progress Note ---
Date of Service April 06, 2018 Assessment & Plan (1) End stage renal disease: Mrs. Morales was admitted to [facility] for evaluation of weakness and tense LE swelling limiting her ability to ambulate. She has severe pulmonary HTN resulting in R heart failure and cardiac cirrhosis. She has a chronic R Pleur- x catheter in place. Diuretic therapy has been met with worsening renal insufficiency and progressive azotemia and started on HD 03/27/18. Medical hx is also significant for chronic anemia requiring IV iron and BINH therapy. -- Volume status is improving. -- HD orders have been entered into the EMR for today and discussed with the HD nurse. -- Additional 2-3 L of UF today as tolerated. (2) Anemia: -- Additional 1 u PRBC to be provided with HD today (3) Chronic kidney disease-mineral and bone disorder: -- on Calcitriol 0.25 mcg 3 times a week and renal vitamin daily (4) Nutrition disorder: -- Increased dietary protein intake encouraged (5) Discharge planning issues: -- Plan transfer to [facility] next week w/ outpatient HD at [facility] Mrs. Morales was seen in her hospital room this morning. There has been some continued bleeding from her R IJ THC. Pressure dressing remains intact. Crystal is frustrated. She is breathing comfortably. She denies any pain. Appetite is good. Edema has started to improve with HD. Review of Systems All systems reviewed & are unremarkable except as noted in HPI & below Physical Exam 2 Vital Signs (Past 24 Hours): Last Vital Signs Temp 36.6 C 04/06/18 07:33 Pulse 70 04/06/18 09:12 Resp 20 04/06/18 07:33 BP 100/43 L 04/06/18 07:33 Pulse Ox 100 04/06/18 07:33 Constitutional: + frail appearing and + edematous; not ill appearing Eyes: PERRL, conjunctivae normal, anicteric sclerae Neck: trachea midline, no thyromegaly Respiratory: normal respiratory effort, lungs clear to auscultation no respiratory distress Auscultation: + rales (at the bases bilaterally) Cardiovascular: RRR, no murmur, no edema (1+ tense edema b/l LE) Rate/ Rhythm: regular rate Vessels: + JVD (below the angle of the jaw while seated upright) Extremities: + edema (tense bilateral LE edema) Gastrointestinal (Abdomen): Inspection/Auscultation: + abdomen distended and normal bowel sounds Neurologic: moves all extremities Psychiatric: A+Ox3, euthymic affect Results & Data Laboratory Results Laboratory Results - last 24 hr 04/05/18 04/05/18 04/05/18 11:23 16:26 20:40 WBC RBC Hgb Hct MCV MCH MCHC RDW Std Deviation RDW Coeff of Marco Plt Count MPV PT INR Sodium Potassium Chloride Carbon Dioxide Anion Gap BUN Creatinine Est Cr Clr Drug Dosing Est GFR ( Amer) Est GFR (Non-Af Amer) BUN/Creatinine Ratio Glucose POC Glucose 132 H 108 H 145 H Calcium Crossmatch 04/06/18 04/06/18 04/06/18 05:48 05:48 05:48 WBC 5.50 RBC 2.62 L Hgb 7.6 L Hct 24.8 L MCV 94.7 MCH 29.0 MCHC 30.6 L RDW Std Deviation 63.8 H RDW Coeff of Marco 18.8 H Plt Count 150 MPV 9.7 PT 16.0 H INR 1.6 H Sodium 127 L Potassium 5.7 H Chloride 95 L Carbon Dioxide 25 Anion Gap 7.0 BUN 49 H Creatinine 3.33 H D Est Cr Clr Drug Dosing 14.4 Est GFR ( Amer) 14.9 Est GFR (Non-Af Amer) 12.9 BUN/Creatinine Ratio 14.8 Glucose 87 POC Glucose Calcium 8.2 L Crossmatch 04/06/18 04/06/18 07:48 08:55 WBC RBC Hgb Hct MCV MCH MCHC RDW Std Deviation RDW Coeff of Marco Plt Count MPV PT INR Sodium Potassium Chloride Carbon Dioxide Anion Gap BUN Creatinine Est Cr Clr Drug Dosing Est GFR ( Amer) Est GFR (Non-Af Amer) BUN/Creatinine Ratio Glucose POC Glucose 94 Calcium Crossmatch See Detail _ (1) Anemia Anemia type: unspecified type Bone marrow failure anemia type: Chronic kidney disease stage: Folate deficiency anemia type: Hemolytic anemia type: Iron deficiency anemia type: Other causes of anemia: Vitamin B12 deficiency anemia type: Qualified Code(s): D64.9 - Anemia, unspecified
[2018-04-06] MEDS: FEXOFENADINE 60 MG TAB PO SCH ×2 (10:12→20:59)
--- NOTE | 2018-04-06 10:24 | Hospitalist Progress Note ---
Date of Service April 06, 2018 Assessment & Plan (1) End stage renal disease: s/p permcath placement M/W/F HD schedule slowly removing volume - was massively volume-overloaded at time of presentation due to cirrhosis/right-sided heart failure, worsening renal disease , etc nephrology/vascular aware of bleeding from permcath site exploration of wound on 04/06 with hemostasis achieved continue to monitor closely Hb stable (2) H/O mitral valve replacement with mechanical valve: INR goal 2.5 to 3.5 INR subtherapeutic with holding for OR today resume Coumadin follows with Dr. Lunsford previous echos with acceptable valve function (3) Hyponatremia: ongoing, multifactorial due to volume overload status (4) Acute on chronic right-sided congestive heart failure: volume status slowly improving with initiation of HD still with peripheral edema today (5) Acute on chronic anemia: Hb down to 7.6 transfused one unit with HD today (6) Hypothyroidism: synthroid most recent TSH acceptable (7) Atrial fibrillation: paced on monitor takes chronic coumadin see discussion above can transfer to medical floor today (8) Cirrhosis: contributes to volume overload status no evidence of any hepatic encephalopathy (9) Pleural effusion, right: drain pleurX catheter daily (10) COPD (chronic obstructive pulmonary disease): stable (11) UTI (urinary tract infection): day #6 of abx (cefdinir) plan 7 days of Rx (12) DVT prophylaxis: coumadin Subjective patient sitting up in chair this morning says she just had a BM, solid breathing is a little labored after walking back from restroom she says her legs are more edematous, filled up this weekend discussed with Dr. Oswald, plan for HD today, will give a unit of blood with HD discussed with Dr. Titus, he will address the issue of the bleeding catheter reviewed labs, Hb down to 7.6 patient c/o itching skin, says the Vickie she gets does not help, requests Benadryl later in the day patient underwent exploration of right tunneled catheter, tolerated well, EBL was on 3cc Review of Systems All systems reviewed & are unremarkable except as noted in HPI & below Cardiovascular: + dyspnea, + dyspnea on exertion and + edema (bilateral, pitting ) Physical Exam 2 Vital Signs (Past 24 Hours): Last Vital Signs Temp 36.6 C 04/06/18 07:33 Pulse 70 04/06/18 09:12 Resp 20 04/06/18 07:33 BP 100/43 L 04/06/18 07:33 Pulse Ox 100 04/06/18 07:33 Constitutional: WD/WN, vitals as above Eyes: PERRL, conjunctivae normal, anicteric sclerae ENMT: external ear and nose normal, oropharynx normal Neck: trachea midline, no thyromegaly Respiratory: normal respiratory effort; no respiratory distress, no labored breathing and no cough Auscultation: + rales (bases); no diminished lung sounds Cardiovascular: Rate/Rhythm: regular rate and regular rhythm Heart Sounds: normal S1 and normal S2 (artificial heart sound); no murmur Vessels: + JVD Extremities: + edema Chest (Breasts): Chest: + vascular access device or port (right tunneled catheter with dressing, bleeding) Gastrointestinal (Abdomen): normal bowel sounds, soft, nontender, no hepatosplenomegaly Musculoskeletal: no cyanosis or clubbing, extremities motor strength 5/5 Skin: no rashes, warm and dry (chronic venous stasis changes in legs) Neurologic: patellar DTR's 2+ bilat, sensation intact and PERRL, EOMI, accommodation nl, no face palsy, no dysarthria Psychiatric: A+Ox3, euthymic affect Lymphatic: no cervical or axillary lymphadenopathy Results & Data Laboratory Results Laboratory Results - last 24 hr 04/05/18 04/05/18 04/05/18 11:23 16:26 20:40 WBC RBC Hgb Hct MCV MCH MCHC RDW Std Deviation RDW Coeff of Marco Plt Count MPV PT INR Sodium Potassium Chloride Carbon Dioxide Anion Gap BUN Creatinine Est Cr Clr Drug Dosing Est GFR ( Amer) Est GFR (Non-Af Amer) BUN/Creatinine Ratio Glucose POC Glucose 132 H 108 H 145 H Calcium Blood Type Antibody Screen Crossmatch 04/06/18 04/06/18 04/06/18 05:48 05:48 05:48 WBC 5.50 RBC 2.62 L Hgb 7.6 L Hct 24.8 L MCV 94.7 MCH 29.0 MCHC 30.6 L RDW Std Deviation 63.8 H RDW Coeff of Marco 18.8 H Plt Count 150 MPV 9.7 PT 16.0 H INR 1.6 H Sodium 127 L Potassium 5.7 H Chloride 95 L Carbon Dioxide 25 Anion Gap 7.0 BUN 49 H Creatinine 3.33 H D Est Cr Clr Drug Dosing 14.4 Est GFR ( Amer) 14.9 Est GFR (Non-Af Amer) 12.9 BUN/Creatinine Ratio 14.8 Glucose 87 POC Glucose Calcium 8.2 L Blood Type Antibody Screen Crossmatch 04/06/18 04/06/18 07:48 08:55 WBC RBC Hgb Hct MCV MCH MCHC RDW Std Deviation RDW Coeff of Marco Plt Count MPV PT INR Sodium Potassium Chloride Carbon Dioxide Anion Gap BUN Creatinine Est Cr Clr Drug Dosing Est GFR ( Amer) Est GFR (Non-Af Amer) BUN/Creatinine Ratio Glucose POC Glucose 94 Calcium Blood Type A Positive Antibody Screen POSITIVE A Crossmatch See Detail Medications Administered Current Inpatient Medications Acetaminophen (Tylenol) 650 mg PO Q4H PRN PRN Reason: pain/fever Stop: 04/24/18 16:17 Last Admin: 04/05/18 19:59 Dose: 650 mg Calcitriol (Racaltrol) 0.25 mcg PO [id number]@0900 [facility] Stop: 04/29/18 08:59 Last Admin: 04/06/18 09:12 Dose: 0.25 mcg Cefdinir (Omnicef) 300 mg PO QAM [facility] Stop: 04/08/18 08:59 Last Admin: 04/06/18 09:10 Dose: 300 mg Dextrose (Dextrose 50%) 25 - 50 ml IV UD PRN; Protocol PRN Reason: Hypoglycemia Protocol Stop: 04/24/18 16:17 Diazepam (Valium) 5 mg PO BID PRN PRN Reason: Anxiety Stop: 04/24/18 16:17 Last Admin: 04/05/18 22:03 Dose: 5 mg Diclofenac Sodium (Voltaren 1% Top) 1 appln EXT QID [facility] Stop: 04/25/18 20:59 Last Admin: 04/06/18 09:10 Dose: 1 appln Digoxin (Lanoxin) 0.125 mg PO DAILY [facility] Stop: 04/25/18 08:59 Last Admin: 04/06/18 09:12 Dose: 0.125 mg Diphenhydramine HCl (Benadryl) 25 mg PO Q6 PRN PRN Reason: Itching Stop: 05/06/18 10:22 Ezetimibe (Zetia) 10 mg PO HS NAY Stop: 04/24/18 20:59 Last Admin: 04/05/18 21:00 Dose: 10 mg Fexofenadine HCl (Vickie) 60 mg PO BID NAY Stop: 05/05/18 20:59 Last Admin: 04/06/18 10:12 Dose: 60 mg Glucagon (Glucagen) 1 mg SQ UD PRN; Protocol PRN Reason: Hypoglycemia Protocol Stop: 04/24/18 16:17 Glucose (Glucose 40%) 15 - 30 gm PO UD PRN; Protocol PRN Reason: Hypoglycemia Protocol Stop: 04/24/18 16:17 Glucose (Dex4 Glucose) 4 - 8 tabs PO UD PRN; Protocol PRN Reason: Hypoglycemia Protocol Stop: 04/24/18 16:17 Sodium Chloride (Nss 250ml) 250 mls @ 15 mls/hr IV .[id number] PRN PRN Reason: For Transfusion Stop: 04/27/18 00:54 Sodium Chloride (Nss 250ml) 250 mls @ 15 mls/hr IV .[id number] PRN PRN Reason: For Transfusion Stop: 05/03/18 07:53 Insulin Aspart (Novolog Flexpen) 0 units SC ACHS NAY Stop: 04/24/18 16:29 Last Admin: 04/06/18 09:29 Dose: Not Given Insulin Glargine (Lantus) 12 units SC BID ANY Stop: 05/04/18 08:59 Last Admin: 04/06/18 09:31 Dose: 12 units Levothyroxine Sodium (Synthroid) 175 mcg PO DAILYBB NAY Stop: 04/25/18 06:29 Last Admin: 04/06/18 06:04 Dose: 175 mcg Metoprolol Succinate (Toprol Xl) 100 mg PO DAILY NAY Stop: 04/25/18 08:59 Last Admin: 04/05/18 10:13 Dose: 100 mg Miscellaneous (Carbohydrates For Hypoglycemia) 15 - 30 gm PO UD PRN PRN Reason: Hypoglycemia Treatment Stop: 04/24/18 16:17 Last Admin: 04/03/18 14:11 Dose: 15 gm Miscellaneous (Order Awaiting Action) 1 ea N/A QS NAY Stop: 04/25/18 00:00 Last Admin: 04/06/18 09:23 Dose: Not Given Multi-Ingredient Cream (Hydrocerin) 1 appln EXT Q1H PRN PRN Reason: Dryness Stop: 05/05/18 16:39 Last Admin: 04/06/18 01:17 Dose: 1 appln Neomycin/Polymyxin/Hydrocortisone (Cortisporin) 2 drops OP Q3H [facility] Stop: 04/29/18 21:59 Last Admin: 04/06/18 10:12 Dose: 2 drops Nystatin (Mycostatin) 1 appln EXT QID [facility] Stop: 04/28/18 12:59 Last Admin: 04/06/18 09:34 Dose: 1 appln Ondansetron HCl (Zofran) 4 mg IV Q6H PRN PRN Reason: Nausea Stop: 04/24/18 16:17 Oxycodone HCl (Roxicodone Immediate Rel) 2.5 mg PO Q8H PRN PRN Reason: Pain Stop: 04/11/18 22:03 Last Admin: 04/04/18 04:51 Dose: 2.5 mg Pantoprazole Sodium (Protonix) 40 mg PO QAM [facility] Stop: 04/25/18 08:59 Last Admin: 04/06/18 09:11 Dose: 40 mg Polyethylene Glycol (Miralax Powder Packet) 17 gm PO DAILY PRN PRN Reason: Constipation Stop: 04/24/18 16:17 Ranitidine HCl (Zantac) 150 mg PO QAM [facility] Stop: 05/04/18 08:59 Last Admin: 04/06/18 09:11 Dose: 150 mg Saccharomyces Boulardii (Florastor) 250 mg PO DAILY [facility] Stop: 04/25/18 08:59 Last Admin: 04/06/18 09:11 Dose: 250 mg Triamcinolone Acetonide (Kenalog 0.1%) 1 appln EXT TID [facility] Stop: 05/05/18 16:44 Last Admin: 04/06/18 09:34 Dose: 1 appln Vitamin B Complex/Folic Acid (Nephrocaps) 1 cap PO DAILY [facility] Stop: 04/29/18 08:59 Last Admin: 04/06/18 09:11 Dose: 1 cap _ (1) UTI (urinary tract infection) Encounter type: Hematuria presence: without hematuria Indwelling urinary catheter type: Urinary tract infection type: acute cystitis Qualified Code(s) : N30.00 - Acute cystitis without hematuria (2) Atrial fibrillation Atrial fibrillation type: chronic Qualified Code(s): I48.2 - Chronic atrial fibrillation (3) Hypothyroidism Hypothyroidism type: acquired Qualified Code(s): E03.9 - Hypothyroidism, unspecified (4) Cirrhosis Ascites presence: Hepatic cirrhosis type: other cirrhosis Qualified Code(s) : K74.69 - Other cirrhosis of liver (5) COPD (chronic obstructive pulmonary disease) COPD type: unspecified COPD Chronic bronchitis type: Emphysema type: Qualified Code(s): J44.9 - Chronic obstructive pulmonary disease, unspecified
--- NOTE | 2018-04-06 11:01 | Surgery Progress Note ---
Date of Service April 06, 2018 Assessment & Plan (1) End stage renal disease: Pt appears to have mild bright red bleeding from catheter exit site R chest wall. Pt is now almost 1 week post insertion. INR 1.6 today. After discussion with Dr Titus, he recommends pt undergo repositioning/exploration in OR today. Present on Admission?: Yes Subjective 77 yo f with multiple medical problems, seen last week for placement of permcath for HD initiation, seen in f/u today. Per staff, pt has had intermittent red bleeding from exit site. Pt denies any complaints. Physical Exam 2 Vital Signs (Past 24 Hours): Last Vital Signs Temp 36.6 C 04/06/18 07:33 Pulse 70 04/06/18 09:12 Resp 20 04/06/18 07:33 BP 100/43 L 04/06/18 07:33 Pulse Ox 100 04/06/18 07:33 Physical Exam: CONST: A&O x2, NAD CHEST: R IJ permcath without hematoma noted. + BRB from exit site noted on dressing. Mild bleeding noted.
--- NOTE | 2018-04-06 11:36 | History & Physical Bridge Note ---
Date of Service April 06, 2018 History & Physical Bridge Note Patient with bleeding from permcath site. Recommend exploration of wound. I have discussed the risks options and benefits of the procedure with the patient. The patient understands the risks options and benefits and agrees to the procedure. I have examined the patient, reviewed the History & Physical and in the interval since the performance of the History & Physical I have noted the following changes of clinical significance: no changes noted
[2018-04-06] MEDS ORDERED: LIDOCAINE HCL 1% 20 ML VIAL ONE (11:41)
[2018-04-06] MEDS ORDERED: HEPARIN SOD (PORCINE) 5,000 UNITS/ML VIAL ONE (11:41)
[2018-04-06] MEDS ORDERED: LIDOCAINE/EPINEPHRINE 1% INJ 50 ML VIAL ONE (11:43)
--- NOTE | 2018-04-06 12:23 | Operative Report ---
Post Operative Report Pre & Post Diagnosis Operation Date: 03/27/18 15:20 Pre-Op Diagnosis: Acute Kidney Injury Post-Op Diagnosis: Acute Kidney Injury Operation Date: 03/30/18 11:10 Pre-Op Diagnosis: End Stage Renal Disease Post-Op Diagnosis: End Stage Renal Disease Operation Date: 04/06/18 11:20 Pre-Op Diagnosis: Post Placement Bleeding Post-Op Diagnosis: Post Placement Bleeding Procedure Operation Date: 03/27/18 15:20 Actual Procedures p Insertion of Temporary Dialysis Catheter, Ultrasound Localization of Right Femoral Vein, Fluoroscopy for Comfirmation(Right) - Teodoro Titus MD Operation Date: 03/30/18 11:10 Actual Procedures p Insertion of Perm Catheter, Right Internal Jugular Approach, Ultrasound Localization of Right Internal Jugular Vein, Fluroscopy for Positioning; Removal of Temporary Dialysis Catheter Right Groin; Moderate Sedation From 1203 to 1230.(Right) - Teodoro Titus MD Operation Date: 04/06/18 11:20 Actual Procedures p Exploration of Wound for Control of Bleeding(Right) - Teodoro Titus MD Surgeon Teodoro Titus MD [employer] Mel Earl MD Estimated Blood Loss 3 Findings Consistent with Post-Op Diagnosis Specimens None Anesthesia Type Local Complications none Disposition Accompanied Patient To Recovery: No Disposition: Recovery Room Indications 77-year-old female with recent PermCath placement for dialysis who was experienced significant oozing around the site of her PermCath requiring multiple dressing changes, presenting to the operating room for hemostasis. Description of Procedure Patient was brought to the operating room and identified as Crystal Morales. She was positioned supine on the operating table and her right anterior chest wall surrounding the permacath site was prepped and draped in usual sterile fashion. Lidocaine with epinephrine was instilled around the permacath insertion site and the skin. A small 8 mm vertical incision was used beginning at the site of skin insertion and extending superiorly. A small amount of bleeding was noted from the skin edges and some of the subcutaneous tissues, which were cauterized, but no large sources of bleeding were noted. The incision was then extended another few millimeters superiorly at which point there is still no significant bleeding noted from deeper inside her chest wall. Several minutes were allowed to pass to ensure there was no bleeding from the venipuncture site above the tract down through the tunnel. After hemostasis was noted, the incision was closed with 3 yecenia after electrocautery had been used to cauterize the skin edges. A Biopatch was then applied and sterile dressing was reapplied. She tolerated the procedure well without any complications. Dr. Titus was present for the entire procedure. I attest to the content of the Intraoperative Record and any orders documented therein. Any exceptions are noted below.
[2018-04-06] MEDS: OXYCODONE HCL IR 5 MG TAB (IMMEDIATE RELEASE) PO PRN (15:34)
[2018-04-06] MEDS: ACETAMINOPHEN 325 MG TAB PO PRN ×2 (15:36→23:12)
[2018-04-06] MEDS: METOPROLOL SUCC 50MG EXT REL TAB PO SCH (15:56)
[2018-04-06] MEDS: EZETIMIBE 10 MG TABLET PO SCH (20:56)
[2018-04-06] MEDS: diazePAM 5 MG TABLET PO PRN (22:15)
[2018-04-07] MEDS: OXYCODONE HCL IR 5 MG TAB (IMMEDIATE RELEASE) PO PRN (00:08)
[2018-04-07] MEDS: NEOMYCIN/POLYMYXIN/HYDROCORT OPH SUSP 7.5 ML BTL OP SCH ×8 (01:25→22:11)
[2018-04-07 05:51] LABS: Basophils # (auto) 0.02 K/uL (0-0.2); Basophils % (auto) 0.4 %; Eosinophils # (auto) 0.15 K/uL (0-0.5); Hematocrit (blood only) 24.8 % (37-47); Hemoglobin 7.8 g/dL (12.0-16.0); Immature Granulocytes # (auto) 0.03 K/uL (0.00-0.02); Immature Granulocytes % (auto) 0.6 %; Lymphocytes # (auto) 0.46 K/uL (1.2-3.4); Lymphocytes % (auto) 9.2 %; Mean Corpuscular Hgb Conc 31.5 g/dL (32-36); Mean Corpuscular Volume 93.6 fL (80-100); Mean Platelet Volume 9.5 fL (7.4-10.4); Monocytes # (auto) 0.92 K/uL (0.11-0.59); Monocytes % (auto) 18.4 %; Neutrophils # (auto) 3.42 K/uL (1.4-6.5); Neutrophils % (auto) 68.4 %; Platelet Count 128 K/uL (130-400); RDW Coefficient of Variation 18.3 % (11.5-14.5); RDW Standard Deviation 61.9 fL (36.4-46.3); Red Blood Count 2.65 M/uL (4.2-5.4)
[2018-04-07 06:21] LABS: Albumin Level 2.4 gm/dl (3.4-5.0); BUN Creatinine Ratio 13.6 (10-20); Calcium 7.6 mg/dl (8.5-10.1); Creatinine Clr Calc Pharmacy 20.9 ml/min; Est GFR (African American) 23.7; Est GFR (Non-African American) 20.4; Phosphorus 3.5 mg/dl (2.5-4.9); Potassium 4.6 mmol/L (3.5-5.1)
[2018-04-07] MEDS: LEVOTHYROXINE SODIUM 175 MCG TABLET PO SCH (06:25)
[2018-04-07 06:33] LABS: Basophilic Stippling 1+
[2018-04-07] MEDS: DICLOFENAC SOD 1% GEL 100 GM TUBE EXT SCH ×4 (08:06→20:36)
[2018-04-07] MEDS: TRIAMCINOLONE ACET 0.1% CR 15 GM TUBE EXT SCH ×3 (08:06→20:36)
[2018-04-07] MEDS: SACCHAROMYCES BOULARDII 250 MG CAP PO SCH (08:06)
[2018-04-07] MEDS: METOPROLOL SUCC 50MG EXT REL TAB PO SCH (08:09)
[2018-04-07] MEDS: CEFDINIR 300 MG CAP PO SCH (08:09)
[2018-04-07] MEDS: NEPHROCAPS PO SCH (08:09)
[2018-04-07] MEDS: NYSTATIN POWDER 15GM BTL EXT SCH ×4 (08:10→20:35)
[2018-04-07] MEDS: PANTOprazole 40 MG TAB PO SCH (08:10)
[2018-04-07] MEDS: TROSPIUM ~ ORDER AWAITING ACTION SCH ×3 (08:11→23:43)
[2018-04-07] MEDS: DIGOXIN 0.125 MG TAB PO SCH (08:11)
[2018-04-07] MEDS: FEXOFENADINE 60 MG TAB PO SCH ×2 (08:11→20:35)
[2018-04-07] MEDS: INSULIN ASPART 100 UNITS/ML 3 ML PEN SC SCH ×4 (08:13→20:38)
[2018-04-07] MEDS: INSULIN GLARGINE 100 UNIT/ML VIAL SC SCH ×2 (08:14→20:37)
--- NOTE | 2018-04-07 09:51 | Nephrology Progress Note ---
Date of Service April 07, 2018 Assessment & Plan (1) End stage renal disease: Mrs. Morales was admitted to [facility] for evaluation of weakness and tense LE swelling limiting her ability to ambulate. She has severe pulmonary HTN resulting in R heart failure and cardiac cirrhosis. She has a chronic R Pleur- x catheter in place. Diuretic therapy has been met with worsening renal insufficiency and progressive azotemia and started on HD 03/27/18. Medical hx is also significant for chronic anemia requiring IV iron and BINH therapy. -- Volume status is improving. -- BP, volume status and electrolytes are acceptable. -- Plan next HD tomorrow. Continue HD on MWF schedule. -- Additional 2-3 L of UF today as tolerated. (2) Anemia: -- Additional 1 u PRBC ordered yesterday. -- Bleeding improved following cauterization in OR. (3) Chronic kidney disease-mineral and bone disorder: -- on Calcitriol 0.25 mcg 3 times a week and renal vitamin daily (4) Nutrition disorder: -- Increased dietary protein intake encouraged (5) Discharge planning issues: -- Plan transfer to [facility]/ outpatient HD at [facility] when stable Subjective Mrs. Morales was seen in her hospital room this morning. No bleeding noted from THC site since returning from the OR. Crystal tolerated HD well yesterday without complications. Net UF 3 L. She is breathing comfortably. Activity tolerance remains limited. She remains on 2 L NC at rest. She denies any pain. Appetite is good. Edema improving. Respiratory: + dyspnea on exertion; no cough, no dyspnea and no sputum production Cardiovascular: + orthopnea and + edema (improving); no chest pain, no dyspnea at rest and no palpitations Gastrointestinal: no abdominal pain, no dysphagia and no constipation Hematologic / Lymphatic: + easy bleeding and + easy bruising Physical Exam 2 Vital Signs (Past 24 Hours): Last Vital Signs Temp 36.7 C 04/07/18 07:00 Pulse 69 04/07/18 07:00 Resp 18 04/07/18 07:00 BP 122/46 L 04/07/18 07:00 Pulse Ox 99 04/07/18 07:00 Constitutional: + obese (chronically ill appearing), + frail appearing and + edematous; not ill appearing Eyes: PERRL, conjunctivae normal, anicteric sclerae ENMT: external ear and nose normal, oropharynx normal Neck: trachea midline, no thyromegaly Respiratory: normal respiratory effort, lungs clear to auscultation no respiratory distress Cardiovascular: RRR, no murmur, no edema (1+ tense edema b/l LE) Rate/ Rhythm: regular rate Vessels: + JVD (below the angle of the jaw while seated upright) Extremities: + edema (tense bilateral LE edema) Gastrointestinal (Abdomen): Inspection/Auscultation: + abdomen distended and normal bowel sounds Neurologic: moves all extremities Psychiatric: A+Ox3, euthymic affect Results & Data Laboratory Results Laboratory Results - last 24 hr 04/03/18 04/06/18 04/06/18 08:55 08:55 12:40 WBC RBC Hgb Hct MCV MCH MCHC RDW Std Deviation RDW Coeff of Marco Plt Count MPV Immature Gran % (Auto) Neut % (Auto) Lymph % (Auto) [place] % (Auto) Eos % (Auto) Baso % (Auto) Immature Gran # (Auto) Neut # (Auto) Lymph # (Auto) [place] # (Auto) Eos # (Auto) Baso # (Auto) Basophilic Stippling Sodium Potassium Chloride Carbon Dioxide Anion Gap BUN Creatinine Est Cr Clr Drug Dosing Est GFR ( Amer) Est GFR (Non-Af Amer) BUN/Creatinine Ratio Glucose POC Glucose 156 H Calcium Phosphorus Albumin Blood Type A Positive Antibody Screen POSITIVE A Antibody Identification Anti-c Crossmatch See Detail See Detail 04/06/18 04/07/18 04/07/18 20:49 05:24 05:24 WBC 5.00 RBC 2.65 L Hgb 7.8 L Hct 24.8 L MCV 93.6 MCH 29.4 MCHC 31.5 L RDW Std Deviation 61.9 H RDW Coeff of Marco 18.3 H Plt Count 128 L MPV 9.5 Immature Gran % (Auto) 0.6 Neut % (Auto) 68.4 Lymph % (Auto) 9.2 [place] % (Auto) 18.4 Eos % (Auto) 3.0 Baso % (Auto) 0.4 Immature Gran # (Auto) 0.03 H Neut # (Auto) 3.42 Lymph # (Auto) 0.46 L [place] # (Auto) 0.92 H Eos # (Auto) 0.15 Baso # (Auto) 0.02 Basophilic Stippling 1+ Sodium 132 L Potassium 4.6 D Chloride 99 Carbon Dioxide 26 Anion Gap 7.0 BUN 31 H Creatinine 2.27 H D Est Cr Clr Drug Dosing 20.9 Est GFR ( Amer) 23.7 Est GFR (Non-Af Amer) 20.4 BUN/Creatinine Ratio 13.6 Glucose 81 POC Glucose 102 H Calcium 7.6 L Phosphorus 3.5 Albumin 2.4 L Blood Type Antibody Screen Antibody Identification Crossmatch 04/07/18 07:40 WBC RBC Hgb Hct MCV MCH MCHC RDW Std Deviation RDW Coeff of Marco Plt Count MPV Immature Gran % (Auto) Neut % (Auto) Lymph % (Auto) [place] % (Auto) Eos % (Auto) Baso % (Auto) Immature Gran # (Auto) Neut # (Auto) Lymph # (Auto) [place] # (Auto) Eos # (Auto) Baso # (Auto) Basophilic Stippling Sodium Potassium Chloride Carbon Dioxide Anion Gap BUN Creatinine Est Cr Clr Drug Dosing Est GFR ( Amer) Est GFR (Non-Af Amer) BUN/Creatinine Ratio Glucose POC Glucose 85 Calcium Phosphorus Albumin Blood Type Antibody Screen Antibody Identification Crossmatch _ (1) Anemia Anemia type: unspecified type Bone marrow failure anemia type: Chronic kidney disease stage: Folate deficiency anemia type: Hemolytic anemia type: Iron deficiency anemia type: Other causes of anemia: Vitamin B12 deficiency anemia type: Qualified Code(s): D64.9 - Anemia, unspecified
--- NOTE | 2018-04-07 09:56 | Hospitalist Progress Note ---
Date of Service April 07, 2018 Assessment & Plan (1) End stage renal disease: s/p permcath placement M/W/F HD schedule slowly removing volume - was massively volume-overloaded at time of presentation due to cirrhosis/right-sided heart failure, worsening renal disease , etc tolerating HD well, 3000mL removed yesterday electrolytes stable today plan for HD tomorrow will continue HD at [facility] and then outpatient at [facility] (2) H/O mitral valve replacement with mechanical valve: INR goal 2.5 to 3.5 resume Coumadin at 4mg daily until therapeutic range Coumadin held due to bleeding from tunneled catheter site (3) Hyponatremia: ongoing, multifactorial due to volume overload status stable at 132 today (4) Acute on chronic right-sided congestive heart failure: volume status slowly improving with initiation of HD still with peripheral edema today UF goal is 3L each time, tolerating well (5) Acute on chronic anemia: Hb up slightly at 7.8 no need for transfusion today, no further active bleeding transfused one unit with HD on 04/06 repeat H/H tomorrow, if trending down could consider another unit with HD (6) Hypothyroidism: synthroid most recent TSH acceptable (7) Atrial fibrillation: paced on monitor takes chronic coumadin (8) Cirrhosis: contributes to volume overload status no evidence of any hepatic encephalopathy (9) Pleural effusion, right: drain pleurX catheter daily 350cc out yesterday (10) COPD (chronic obstructive pulmonary disease): stable (11) UTI (urinary tract infection): day #7 of abx (cefdinir) stop after this evening dose (12) DVT prophylaxis: coumadin Subjective patient sitting up in chair this morning reports that she ate breakfast, hash browns and oatmeal she moved her bowels and even urinated this morning she experienced some pain with the right tunneled catheter exploration yesterday , currently feels fine some mild dypsnea on exertion and still with peripheral edema UF of 3000mL yesterday with HD, tolerated well Hb is still low at 7.8 but no further blood loss will monitor Review of Systems All systems reviewed & are unremarkable except as noted in HPI & below Respiratory: + dyspnea on exertion Cardiovascular: + edema Physical Exam 2 Vital Signs (Past 24 Hours): Last Vital Signs Temp 36.7 C 04/07/18 07:00 Pulse 69 04/07/18 07:00 Resp 18 01/22/19 07:00 BP 122/46 L 04/07/18 07:00 Pulse Ox 99 04/07/18 07:00 Constitutional: WD/WN, vitals as above Eyes: PERRL, conjunctivae normal, anicteric sclerae ENMT: external ear and nose normal, oropharynx normal Neck: trachea midline, no thyromegaly Respiratory: normal respiratory effort; no respiratory distress, no labored breathing and no cough Auscultation: no diminished lung sounds Cardiovascular: Rate/Rhythm: regular rate and regular rhythm Heart Sounds: normal S1 and normal S2 (artificial heart sound); no murmur Extremities: + edema Chest (Breasts): Chest: + vascular access device or port (right tunneled catheter with dressing, no bleeding today) Gastrointestinal (Abdomen): normal bowel sounds, soft, nontender, no hepatosplenomegaly Musculoskeletal: no cyanosis or clubbing, extremities motor strength 5/5 Skin: no rashes, warm and dry (chronic venous stasis changes in legs) Neurologic: patellar DTR's 2+ bilat, sensation intact and PERRL, EOMI, accommodation nl, no face palsy, no dysarthria Psychiatric: A+Ox3, euthymic affect Lymphatic: no cervical or axillary lymphadenopathy Results & Data Laboratory Results Laboratory Results - last 24 hr 04/03/18 04/06/18 04/06/18 08:55 08:55 12:40 WBC RBC Hgb Hct MCV MCH MCHC RDW Std Deviation RDW Coeff of Marco Plt Count MPV Immature Gran % (Auto) Neut % (Auto) Lymph % (Auto) [place] % (Auto) Eos % (Auto) Baso % (Auto) Immature Gran # (Auto) Neut # (Auto) Lymph # (Auto) [place] # (Auto) Eos # (Auto) Baso # (Auto) Basophilic Stippling Sodium Potassium Chloride Carbon Dioxide Anion Gap BUN Creatinine Est Cr Clr Drug Dosing Est GFR ( Amer) Est GFR (Non-Af Amer) BUN/Creatinine Ratio Glucose POC Glucose 156 H Calcium Phosphorus Albumin Blood Type A Positive Antibody Screen POSITIVE A Antibody Identification Anti-c Crossmatch See Detail See Detail 04/06/18 04/07/18 04/07/18 20:49 05:24 05:24 WBC 5.00 RBC 2.65 L Hgb 7.8 L Hct 24.8 L MCV 93.6 MCH 29.4 MCHC 31.5 L RDW Std Deviation 61.9 H RDW Coeff of Marco 18.3 H Plt Count 128 L MPV 9.5 Immature Gran % (Auto) 0.6 Neut % (Auto) 68.4 Lymph % (Auto) 9.2 [place] % (Auto) 18.4 Eos % (Auto) 3.0 Baso % (Auto) 0.4 Immature Gran # (Auto) 0.03 H Neut # (Auto) 3.42 Lymph # (Auto) 0.46 L [place] # (Auto) 0.92 H Eos # (Auto) 0.15 Baso # (Auto) 0.02 Basophilic Stippling 1+ Sodium 132 L Potassium 4.6 D Chloride 99 Carbon Dioxide 26 Anion Gap 7.0 BUN 31 H Creatinine 2.27 H D Est Cr Clr Drug Dosing 20.9 Est GFR ( Amer) 23.7 Est GFR (Non-Af Amer) 20.4 BUN/Creatinine Ratio 13.6 Glucose 81 POC Glucose 102 H Calcium 7.6 L Phosphorus 3.5 Albumin 2.4 L Blood Type Antibody Screen Antibody Identification Crossmatch 04/07/18 07:40 WBC RBC Hgb Hct MCV MCH MCHC RDW Std Deviation RDW Coeff of Marco Plt Count MPV Immature Gran % (Auto) Neut % (Auto) Lymph % (Auto) [place] % (Auto) Eos % (Auto) Baso % (Auto) Immature Gran # (Auto) Neut # (Auto) Lymph # (Auto) [place] # (Auto) Eos # (Auto) Baso # (Auto) Basophilic Stippling Sodium Potassium Chloride Carbon Dioxide Anion Gap BUN Creatinine Est Cr Clr Drug Dosing Est GFR ( Amer) Est GFR (Non-Af Amer) BUN/Creatinine Ratio Glucose POC Glucose 85 Calcium Phosphorus Albumin Blood Type Antibody Screen Antibody Identification Crossmatch Medications Administered Current Inpatient Medications Acetaminophen (Tylenol) 650 mg PO Q4H PRN PRN Reason: pain/fever Stop: 04/24/18 16:17 Last Admin: 04/06/18 23:12 Dose: 650 mg Calcitriol (Racaltrol) 0.25 mcg PO MoWeFr@0900 NAY Stop: 04/29/18 08:59 Last Admin: 04/06/18 09:12 Dose: 0.25 mcg Cefdinir (Omnicef) 300 mg PO QAM [facility] Stop: 04/08/18 08:59 Last Admin: 04/07/18 08:09 Dose: 300 mg Dextrose (Dextrose 50%) 25 - 50 ml IV UD PRN; Protocol PRN Reason: Hypoglycemia Protocol Stop: 04/24/18 16:17 Diazepam (Valium) 5 mg PO BID PRN PRN Reason: Anxiety Stop: 04/24/18 16:17 Last Admin: 04/06/18 22:15 Dose: 5 mg Diclofenac Sodium (Voltaren 1% Top) 1 appln EXT QID [facility] Stop: 04/25/18 20:59 Last Admin: 04/07/18 08:06 Dose: 1 appln Digoxin (Lanoxin) 0.125 mg PO DAILY [facility] Stop: 04/25/18 08:59 Last Admin: 04/07/18 08:11 Dose: 0.125 mg Diphenhydramine HCl (Benadryl) 25 mg PO Q6 PRN PRN Reason: Itching Stop: 05/06/18 10:22 Last Admin: 04/07/18 08:33 Dose: 25 mg Ezetimibe (Zetia) 10 mg PO HS [facility] Stop: 04/24/18 20:59 Last Admin: 04/06/18 20:56 Dose: 10 mg Fexofenadine HCl (Vickie) 60 mg PO BID [facility] Stop: 05/05/18 20:59 Last Admin: 04/07/18 08:11 Dose: 60 mg Glucagon (Glucagen) 1 mg SQ UD PRN; Protocol PRN Reason: Hypoglycemia Protocol Stop: 04/24/18 16:17 Glucose (Glucose 40%) 15 - 30 gm PO UD PRN; Protocol PRN Reason: Hypoglycemia Protocol Stop: 04/24/18 16:17 Glucose (Dex4 Glucose) 4 - 8 tabs PO UD PRN; Protocol PRN Reason: Hypoglycemia Protocol Stop: 04/24/18 16:17 Sodium Chloride (Nss 250ml) 250 mls @ 15 mls/hr IV .[id number] PRN PRN Reason: For Transfusion Stop: 04/27/18 00:54 Sodium Chloride (Nss 250ml) 250 mls @ 15 mls/hr IV .[id number] PRN PRN Reason: For Transfusion Stop: 05/03/18 07:53 Insulin Aspart (Novolog Flexpen) 0 units SC ACHS [facility] Stop: 04/24/18 16:29 Last Admin: 04/07/18 08:13 Dose: 2 units Insulin Glargine (Lantus) 12 units SC BID [facility] Stop: 05/04/18 08:59 Last Admin: 04/07/18 08:14 Dose: 12 units Levothyroxine Sodium (Synthroid) 175 mcg PO DAILYBB [facility] Stop: 04/25/18 06:29 Last Admin: 04/07/18 06:25 Dose: 175 mcg Metoprolol Succinate (Toprol Xl) 100 mg PO DAILY [facility] Stop: 04/25/18 08:59 Last Admin: 04/07/18 08:09 Dose: 100 mg Miscellaneous (Carbohydrates For Hypoglycemia) 15 - 30 gm PO UD PRN PRN Reason: Hypoglycemia Treatment Stop: 04/24/18 16:17 Last Admin: 04/03/18 14:11 Dose: 15 gm Miscellaneous (Order Awaiting Action) 1 ea N/A QS [facility] Stop: 04/25/18 00:00 Last Admin: 04/07/18 08:11 Dose: Not Given Multi-Ingredient Cream (Hydrocerin) 1 appln EXT Q1H PRN PRN Reason: Dryness Stop: 05/05/18 16:39 Last Admin: 04/06/18 01:17 Dose: 1 appln Neomycin/Polymyxin/Hydrocortisone (Cortisporin) 2 drops OP Q3H [facility] Stop: 04/29/18 21:59 Last Admin: 04/07/18 06:34 Dose: 2 drops Nystatin (Mycostatin) 1 appln EXT QID [facility] Stop: 04/28/18 12:59 Last Admin: 04/07/18 08:10 Dose: 1 appln Ondansetron HCl (Zofran) 4 mg IV Q6H PRN PRN Reason: Nausea Stop: 04/24/18 16:17 Oxycodone HCl (Roxicodone Immediate Rel) 2.5 mg PO Q8H PRN PRN Reason: Pain Stop: 04/11/18 22:03 Last Admin: 04/07/18 00:08 Dose: 2.5 mg Pantoprazole Sodium (Protonix) 40 mg PO QAM [facility] Stop: 04/25/18 08:59 Last Admin: 04/07/18 08:10 Dose: 40 mg Polyethylene Glycol (Miralax Powder Packet) 17 gm PO DAILY PRN PRN Reason: Constipation Stop: 04/24/18 16:17 Ranitidine HCl (Zantac) 150 mg PO QAM [facility] Stop: 05/04/18 08:59 Last Admin: 04/07/18 08:10 Dose: 150 mg Saccharomyces Boulardii (Florastor) 250 mg PO DAILY [facility] Stop: 04/25/18 08:59 Last Admin: 04/07/18 08:06 Dose: 250 mg Triamcinolone Acetonide (Kenalog 0.1%) 1 appln EXT TID [facility] Stop: 05/05/18 16:44 Last Admin: 04/07/18 08:06 Dose: 1 appln Vitamin B Complex/Folic Acid (Nephrocaps) 1 cap PO DAILY [facility] Stop: 04/29/18 08:59 Last Admin: 04/07/18 08:09 Dose: 1 cap Warfarin Sodium (Coumadin) 4 mg PO DAILY@1600 [facility] Stop: 05/07/18 15:59 _ (1) Hypothyroidism Hypothyroidism type: acquired Qualified Code(s): E03.9 - Hypothyroidism, unspecified (2) Atrial fibrillation Atrial fibrillation type: chronic Qualified Code(s): I48.2 - Chronic atrial fibrillation (3) Cirrhosis Hepatic cirrhosis type: other cirrhosis Ascites presence: Qualified Code(s) : K74.69 - Other cirrhosis of liver (4) COPD (chronic obstructive pulmonary disease) COPD type: unspecified COPD Chronic bronchitis type: Emphysema type: Qualified Code(s): J44.9 - Chronic obstructive pulmonary disease, unspecified (5) UTI (urinary tract infection) Urinary tract infection type: acute cystitis Hematuria presence: without hematuria Indwelling urinary catheter type: Encounter type: Qualified Code( s): N30.00 - Acute cystitis without hematuria
[2018-04-07] MEDS ORDERED: SODIUM CHLORIDE 0.9% 1000ML 1,000 ML IV PRN (15:36)
[2018-04-07] MEDS: WARFARIN SOD 4 MG TAB PO SCH (15:56)
[2018-04-07] MEDS: EZETIMIBE 10 MG TABLET PO SCH (20:36)
[2018-04-07] MEDS: ACETAMINOPHEN 325 MG TAB PO PRN (22:10)
[2018-04-07] MEDS: diazePAM 5 MG TABLET PO PRN (22:10)
[2018-04-08] MEDS: NEOMYCIN/POLYMYXIN/HYDROCORT OPH SUSP 7.5 ML BTL OP SCH ×8 (00:41→20:56)
[2018-04-08] MEDS: LEVOTHYROXINE SODIUM 175 MCG TABLET PO SCH (05:45)
[2018-04-08 06:14] LABS: Basophils # (auto) 0.04 K/uL (0-0.2); Basophils % (auto) 0.7 %; Eosinophils # (auto) 0.22 K/uL (0-0.5); Hematocrit (blood only) 25.1 % (37-47); Hemoglobin 7.8 g/dL (12.0-16.0); Immature Granulocytes # (auto) 0.05 K/uL (0.00-0.02); Immature Granulocytes % (auto) 0.9 %; Lymphocytes # (auto) 0.59 K/uL (1.2-3.4); Lymphocytes % (auto) 10.6 %; Mean Corpuscular Hgb Conc 31.1 g/dL (32-36); Mean Platelet Volume 9.7 fL (7.4-10.4); Monocytes % (auto) 19.9 %; Neutrophils # (auto) 3.54 K/uL (1.4-6.5); Neutrophils % (auto) 63.9 %; Platelet Count 141 K/uL (130-400); RDW Standard Deviation 64.2 fL (36.4-46.3); Red Blood Count 2.67 M/uL (4.2-5.4); White Blood Count 5.54 K/uL (4.8-10.8)
[2018-04-08 06:37] LABS: Polychromasia 1+
[2018-04-08 06:48] LABS: Albumin Level 2.6 gm/dl (3.4-5.0); BUN Creatinine Ratio 15.6 (10-20); Calcium 8.2 mg/dl (8.5-10.1); Creatinine Clr Calc Pharmacy 16.5 ml/min; Est GFR (African American) 17.4
[2018-04-08 06:49] LABS: Phosphorus 3.5 mg/dl (2.5-4.9)
[2018-04-08] MEDS: TROSPIUM ~ ORDER AWAITING ACTION SCH ×2 (08:28→20:08)
[2018-04-08] MEDS: INSULIN ASPART 100 UNITS/ML 3 ML PEN SC SCH ×4 (08:28→20:52)
[2018-04-08] MEDS: FEXOFENADINE 60 MG TAB PO SCH ×2 (08:30→20:55)
[2018-04-08] MEDS: SACCHAROMYCES BOULARDII 250 MG CAP PO SCH (08:30)
[2018-04-08] MEDS: INSULIN GLARGINE 100 UNIT/ML VIAL SC SCH ×2 (08:31→21:03)
[2018-04-08] MEDS: DIGOXIN 0.125 MG TAB PO SCH (08:31)
[2018-04-08] MEDS: TRIAMCINOLONE ACET 0.1% CR 15 GM TUBE EXT SCH ×3 (08:31→20:57)
[2018-04-08] MEDS: NYSTATIN POWDER 15GM BTL EXT SCH ×4 (08:32→20:58)
[2018-04-08] MEDS: NEPHROCAPS PO SCH (08:33)
[2018-04-08] MEDS: CALCITRIOL 0.25 MCG CAPSULE PO SCH (08:33)
[2018-04-08] MEDS: PANTOprazole 40 MG TAB PO SCH (08:33)
[2018-04-08] MEDS: METOPROLOL SUCC 50MG EXT REL TAB PO SCH (08:34)
[2018-04-08] MEDS: DICLOFENAC SOD 1% GEL 100 GM TUBE EXT SCH ×5 (08:34→20:58)
--- NOTE | 2018-04-08 09:03 | Nephrology Progress Note ---
Date of Service April 08, 2018 Assessment & Plan (1) End stage renal disease: Mrs. Morales was admitted to [facility] for evaluation of weakness and tense LE swelling limiting her ability to ambulate. She has severe pulmonary HTN resulting in R heart failure and cardiac cirrhosis. She has a chronic R Pleur- x catheter in place. Diuretic therapy has been met with worsening renal insufficiency and progressive azotemia and started on HD 03/27/18. Medical hx is also significant for chronic anemia requiring IV iron and BINH therapy. -- Orders for HD have been entered into the EMR and discussed with the HD nurse : 4 hrs with UF goal 3-4 L -- Metabolic profile acceptable -- Continue HD on MWF schedule (2) Anemia: -- Hgb stable -- No signs of additional bleeding -- Epogen 46430 units with HD today (3) Chronic kidney disease-mineral and bone disorder: -- on Calcitriol 0.25 mcg 3 times a week and renal vitamin daily (4) Nutrition disorder: -- Increased dietary protein intake encouraged (5) Discharge planning issues: -- Plan transfer to [facility] w/ outpatient HD at [facility] when stable Subjective Mrs. Morales was seen in her hospital room this morning. No bleeding noted from THC site in >24 hours. Crystal feels reasonably well this morning. She is breathing comfortably. Activity tolerance remains limited. She remains on 2 L NC at rest. She denies any pain. Appetite is good. Respiratory: + dyspnea on exertion; no cough, no dyspnea and no sputum production Cardiovascular: + orthopnea and + edema (improving); no chest pain, no dyspnea at rest and no palpitations Hematologic / Lymphatic: + easy bleeding and + easy bruising Physical Exam 2 Vital Signs (Past 24 Hours): Last Vital Signs Temp 36.8 C 04/08/18 07:48 Pulse 60 04/08/18 07:48 Resp 16 04/08/18 07:48 BP 131/64 04/08/18 07:48 Pulse Ox 100 04/08/18 07:48 Constitutional: + obese (chronically ill appearing), + frail appearing and + edematous; not ill appearing Eyes: PERRL, conjunctivae normal, anicteric sclerae ENMT: external ear and nose normal, oropharynx normal Neck: trachea midline, no thyromegaly Respiratory: normal respiratory effort, lungs clear to auscultation no respiratory distress Auscultation: + rales (at the bases bilaterally) Cardiovascular: RRR, no murmur, no edema (1+ tense edema b/l LE) Rate/ Rhythm: regular rate Vessels: + JVD (below the angle of the jaw while seated upright) Extremities: + edema (tense bilateral LE edema) Gastrointestinal (Abdomen): Inspection/Auscultation: + abdomen distended and normal bowel sounds Skin: no rashes, warm and dry Neurologic: moves all extremities Psychiatric: A+Ox3, euthymic affect Results & Data Laboratory Results Laboratory Results - last 24 hr 04/07/18 04/07/18 04/07/18 11:42 16:49 20:31 WBC RBC Hgb Hct MCV MCH MCHC RDW Std Deviation RDW Coeff of Marco Plt Count MPV Immature Gran % (Auto) Neut % (Auto) Lymph % (Auto) [place] % (Auto) Eos % (Auto) Baso % (Auto) Immature Gran # (Auto) Neut # (Auto) Lymph # (Auto) [place] # (Auto) Eos # (Auto) Baso # (Auto) Polychromasia Sodium Potassium Chloride Carbon Dioxide Anion Gap BUN Creatinine Est Cr Clr Drug Dosing Est GFR ( Amer) Est GFR (Non-Af Amer) BUN/Creatinine Ratio Glucose POC Glucose 96 166 H 185 H Calcium Phosphorus Albumin 04/08/18 04/08/18 04/08/18 04:01 05:52 05:52 WBC 5.54 RBC 2.67 L Hgb 7.8 L Hct 25.1 L MCV 94.0 MCH 29.2 MCHC 31.1 L RDW Std Deviation 64.2 H RDW Coeff of Marco 19.0 H Plt Count 141 MPV 9.7 Immature Gran % (Auto) 0.9 Neut % (Auto) 63.9 Lymph % (Auto) 10.6 [place] % (Auto) 19.9 Eos % (Auto) 4.0 Baso % (Auto) 0.7 Immature Gran # (Auto) 0.05 H Neut # (Auto) 3.54 Lymph # (Auto) 0.59 L [place] # (Auto) 1.10 H Eos # (Auto) 0.22 Baso # (Auto) 0.04 Polychromasia 1+ Sodium 130 L Potassium 5.0 Chloride 97 L Carbon Dioxide 23 Anion Gap 10.0 BUN 46 H Creatinine 2.93 H D Est Cr Clr Drug Dosing 16.5 Est GFR ( Amer) 17.4 Est GFR (Non-Af Amer) 15.0 BUN/Creatinine Ratio 15.6 Glucose 88 POC Glucose 108 H Calcium 8.2 L Phosphorus 3.5 Albumin 2.6 L 04/08/18 07:37 WBC RBC Hgb Hct MCV MCH MCHC RDW Std Deviation RDW Coeff of Marco Plt Count MPV Immature Gran % (Auto) Neut % (Auto) Lymph % (Auto) [place] % (Auto) Eos % (Auto) Baso % (Auto) Immature Gran # (Auto) Neut # (Auto) Lymph # (Auto) [place] # (Auto) Eos # (Auto) Baso # (Auto) Polychromasia Sodium Potassium Chloride Carbon Dioxide Anion Gap BUN Creatinine Est Cr Clr Drug Dosing Est GFR ( Amer) Est GFR (Non-Af Amer) BUN/Creatinine Ratio Glucose POC Glucose 87 Calcium Phosphorus Albumin _ (1) Anemia Anemia type: unspecified type Bone marrow failure anemia type: Chronic kidney disease stage: Folate deficiency anemia type: Hemolytic anemia type: Iron deficiency anemia type: Other causes of anemia: Vitamin B12 deficiency anemia type: Qualified Code(s): D64.9 - Anemia, unspecified
[2018-04-08] MEDS ORDERED: EPOETIN ALFA 10,000 UNITS/ML VIAL IV SCH (09:30)
[2018-04-08] MEDS: ACETAMINOPHEN 325 MG TAB PO PRN ×2 (13:37→22:31)
--- NOTE | 2018-04-08 15:30 | Hospitalist Progress Note ---
Date of Service April 08, 2018 Assessment & Plan (1) End stage renal disease: s/p permcath placement M/W/F HD schedule slowly removing volume - was massively volume-overloaded at time of presentation due to cirrhosis/right-sided heart failure, worsening renal disease , etc tolerating HD well, 3000mL removed every session, including today electrolytes stable today will continue HD at [facility] and then outpatient at [facility] (2) H/O mitral valve replacement with mechanical valve: INR goal 2.5 to 3.5 continue Coumadin at 4mg daily until therapeutic range Coumadin held due to bleeding from tunneled catheter site check INR tomorrow (3) Hyponatremia: ongoing, multifactorial due to volume overload status stable at 130 today (4) Acute on chronic right-sided congestive heart failure: volume status slowly improving with initiation of HD still with peripheral edema but a little less UF goal is 3L each time, tolerating well (5) Acute on chronic anemia: Hb stable at 7.8 no need for transfusion today, no further active bleeding transfused one unit with HD on 04/06 repeat H/H tomorrow (6) Hypothyroidism: synthroid most recent TSH acceptable (7) Atrial fibrillation: paced on monitor takes chronic coumadin (8) Cirrhosis: contributes to volume overload status no evidence of any hepatic encephalopathy (9) Pleural effusion, right: drain pleurX catheter daily 350cc out yesterday (10) COPD (chronic obstructive pulmonary disease): stable (11) UTI (urinary tract infection): completed seven days of Cefdinir (12) DVT prophylaxis: coumadin Subjective patient admits to some dyspnea on exertion discussed that is because she needs HD she has been drinking a lot of water trying to urinate, explained that she is not making urine due to renal failure she is concerned about her INR, wants it therapeutic prior to discharge she is eating well, moving her bowels c/o itching associated with tape over the dressing on her catheter appreciate nephrology note today patient had UF of 3000cc Physical Exam 2 Vital Signs (Past 24 Hours): Last Vital Signs Temp 36.8 C 04/08/18 11:42 Pulse 63 04/08/18 11:42 Resp 20 04/08/18 11:42 BP 117/63 04/08/18 11:42 Pulse Ox 92 04/08/18 13:33 Constitutional: WD/WN, vitals as above Eyes: PERRL, conjunctivae normal, anicteric sclerae ENMT: external ear and nose normal, oropharynx normal Neck: trachea midline, no thyromegaly Respiratory: normal respiratory effort; no respiratory distress, no labored breathing and no cough Auscultation: no diminished lung sounds Cardiovascular: Rate/Rhythm: regular rate and regular rhythm Heart Sounds: normal S1 and normal S2 (artificial heart sound); no murmur Extremities: + edema Chest (Breasts): Chest: + vascular access device or port (right tunneled catheter with dressing, no bleeding today) Gastrointestinal (Abdomen): normal bowel sounds, soft, nontender, no hepatosplenomegaly Musculoskeletal: no cyanosis or clubbing, extremities motor strength 5/5 Skin: no rashes, warm and dry (chronic venous stasis changes in legs) Neurologic: patellar DTR's 2+ bilat, sensation intact and PERRL, EOMI, accommodation nl, no face palsy, no dysarthria Psychiatric: A+Ox3, euthymic affect Lymphatic: no cervical or axillary lymphadenopathy Results & Data Laboratory Results Laboratory Results - last 24 hr 04/07/18 04/08/18 04/08/18 20:31 04:01 05:52 WBC 5.54 RBC 2.67 L Hgb 7.8 L Hct 25.1 L MCV 94.0 MCH 29.2 MCHC 31.1 L RDW Std Deviation 64.2 H RDW Coeff of Marco 19.0 H Plt Count 141 MPV 9.7 Immature Gran % (Auto) 0.9 Neut % (Auto) 63.9 Lymph % (Auto) 10.6 [place] % (Auto) 19.9 Eos % (Auto) 4.0 Baso % (Auto) 0.7 Immature Gran # (Auto) 0.05 H Neut # (Auto) 3.54 Lymph # (Auto) 0.59 L [place] # (Auto) 1.10 H Eos # (Auto) 0.22 Baso # (Auto) 0.04 Polychromasia 1+ Sodium Potassium Chloride Carbon Dioxide Anion Gap BUN Creatinine Est Cr Clr Drug Dosing Est GFR ( Amer) Est GFR (Non-Af Amer) BUN/Creatinine Ratio Glucose POC Glucose 185 H 108 H Calcium Phosphorus Albumin 04/08/18 04/08/18 04/08/18 05:52 07:37 11:36 WBC RBC Hgb Hct MCV MCH MCHC RDW Std Deviation RDW Coeff of Marco Plt Count MPV Immature Gran % (Auto) Neut % (Auto) Lymph % (Auto) [place] % (Auto) Eos % (Auto) Baso % (Auto) Immature Gran # (Auto) Neut # (Auto) Lymph # (Auto) [place] # (Auto) Eos # (Auto) Baso # (Auto) Polychromasia Sodium 130 L Potassium 5.0 Chloride 97 L Carbon Dioxide 23 Anion Gap 10.0 BUN 46 H Creatinine 2.93 H D Est Cr Clr Drug Dosing 16.5 Est GFR ( Amer) 17.4 Est GFR (Non-Af Amer) 15.0 BUN/Creatinine Ratio 15.6 Glucose 88 POC Glucose 87 144 H Calcium 8.2 L Phosphorus 3.5 Albumin 2.6 L Medications Administered Current Inpatient Medications Acetaminophen (Tylenol) 650 mg PO Q4H PRN PRN Reason: pain/fever Stop: 04/24/18 16:17 Last Admin: 04/08/18 13:37 Dose: 650 mg Calcitriol (Racaltrol) 0.25 mcg PO MoWeFr@0900 [facility] Stop: 04/29/18 08:59 Last Admin: 04/08/18 08:33 Dose: 0.25 mcg Dextrose (Dextrose 50%) 25 - 50 ml IV UD PRN; Protocol PRN Reason: Hypoglycemia Protocol Stop: 04/24/18 16:17 Diazepam (Valium) 5 mg PO BID PRN PRN Reason: Anxiety Stop: 04/24/18 16:17 Last Admin: 04/07/18 22:10 Dose: 5 mg Diclofenac Sodium (Voltaren 1% Top) 1 appln EXT QID [facility] Stop: 04/25/18 20:59 Last Admin: 04/08/18 20:09 Dose: Not Given Digoxin (Lanoxin) 0.125 mg PO DAILY [facility] Stop: 04/25/18 08:59 Last Admin: 04/08/18 08:31 Dose: 0.125 mg Diphenhydramine HCl (Benadryl) 25 mg PO Q6 PRN PRN Reason: Itching Stop: 05/06/18 10:22 Last Admin: 04/08/18 13:38 Dose: 25 mg Ezetimibe (Zetia) 10 mg PO HS [facility] Stop: 04/24/18 20:59 Last Admin: 04/07/18 20:36 Dose: 10 mg Fexofenadine HCl (Vickie) 60 mg PO BID [facility] Stop: 05/05/18 20:59 Last Admin: 04/08/18 08:30 Dose: 60 mg Glucagon (Glucagen) 1 mg SQ UD PRN; Protocol PRN Reason: Hypoglycemia Protocol Stop: 04/24/18 16:17 Glucose (Glucose 40%) 15 - 30 gm PO UD PRN; Protocol PRN Reason: Hypoglycemia Protocol Stop: 04/24/18 16:17 Glucose (Dex4 Glucose) 4 - 8 tabs PO UD PRN; Protocol PRN Reason: Hypoglycemia Protocol Stop: 04/24/18 16:17 Sodium Chloride (Nss 250ml) 250 mls @ 15 mls/hr IV .[id number] PRN PRN Reason: For Transfusion Stop: 04/27/18 00:54 Sodium Chloride (Nss 250ml) 250 mls @ 15 mls/hr IV .[id number] PRN PRN Reason: For Transfusion Stop: 05/03/18 07:53 Insulin Aspart (Novolog Flexpen) 0 units SC ACHS [facility] Stop: 04/24/18 16:29 Last Admin: 04/08/18 20:08 Dose: Not Given Insulin Glargine (Lantus) 12 units SC BID [facility] Stop: 05/04/18 08:59 Last Admin: 04/08/18 08:31 Dose: 12 units Levothyroxine Sodium (Synthroid) 175 mcg PO DAILYBB [facility] Stop: 04/25/18 06:29 Last Admin: 04/08/18 05:45 Dose: 175 mcg Metoprolol Succinate (Toprol Xl) 100 mg PO DAILY [facility] Stop: 04/25/18 08:59 Last Admin: 04/08/18 08:34 Dose: Not Given Miscellaneous (Carbohydrates For Hypoglycemia) 15 - 30 gm PO UD PRN PRN Reason: Hypoglycemia Treatment Stop: 04/24/18 16:17 Last Admin: 04/03/18 14:11 Dose: 15 gm Miscellaneous (Order Awaiting Action) 1 ea N/A QS [facility] Stop: 04/25/18 00:00 Last Admin: 04/08/18 20:08 Dose: Not Given Multi-Ingredient Cream (Hydrocerin) 1 appln EXT Q1H PRN PRN Reason: Dryness Stop: 05/05/18 16:39 Last Admin: 04/06/18 01:17 Dose: 1 appln Neomycin/Polymyxin/Hydrocortisone (Cortisporin) 2 drops OP Q3H [facility] Stop: 04/29/18 21:59 Last Admin: 04/08/18 20:10 Dose: Not Given Nystatin (Mycostatin) 1 appln EXT QID [facility] Stop: 04/28/18 12:59 Last Admin: 04/08/18 20:08 Dose: Not Given Ondansetron HCl (Zofran) 4 mg IV Q6H PRN PRN Reason: Nausea Stop: 04/24/18 16:17 Oxycodone HCl (Roxicodone Immediate Rel) 2.5 mg PO Q8H PRN PRN Reason: Pain Stop: 04/11/18 22:03 Last Admin: 04/07/18 00:08 Dose: 2.5 mg Pantoprazole Sodium (Protonix) 40 mg PO QAM [facility] Stop: 04/25/18 08:59 Last Admin: 04/08/18 08:33 Dose: 40 mg Polyethylene Glycol (Miralax Powder Packet) 17 gm PO DAILY PRN PRN Reason: Constipation Stop: 04/24/18 16:17 Ranitidine HCl (Zantac) 150 mg PO QAM [facility] Stop: 05/04/18 08:59 Last Admin: 04/08/18 08:34 Dose: 150 mg Saccharomyces Boulardii (Florastor) 250 mg PO DAILY [facility] Stop: 04/25/18 08:59 Last Admin: 04/08/18 08:30 Dose: 250 mg Triamcinolone Acetonide (Kenalog 0.1%) 1 appln EXT TID [facility] Stop: 05/05/18 16:44 Last Admin: 04/08/18 13:40 Dose: 1 appln Vitamin B Complex/Folic Acid (Nephrocaps) 1 cap PO DAILY [facility] Stop: 04/29/18 08:59 Last Admin: 04/08/18 08:33 Dose: 1 cap Warfarin Sodium (Coumadin) 4 mg PO DAILY@1600 [facility] Stop: 05/07/18 15:59 Last Admin: 04/07/18 15:56 Dose: 4 mg _ (1) UTI (urinary tract infection) Encounter type: Hematuria presence: without hematuria Indwelling urinary catheter type: Urinary tract infection type: acute cystitis Qualified Code(s) : N30.00 - Acute cystitis without hematuria (2) Atrial fibrillation Atrial fibrillation type: chronic Qualified Code(s): I48.2 - Chronic atrial fibrillation (3) Hypothyroidism Hypothyroidism type: acquired Qualified Code(s): E03.9 - Hypothyroidism, unspecified (4) Cirrhosis Ascites presence: Hepatic cirrhosis type: other cirrhosis Qualified Code(s) : K74.69 - Other cirrhosis of liver (5) COPD (chronic obstructive pulmonary disease) COPD type: unspecified COPD Chronic bronchitis type: Emphysema type: Qualified Code(s): J44.9 - Chronic obstructive pulmonary disease, unspecified
[2018-04-08] MEDS: EZETIMIBE 10 MG TABLET PO SCH (20:54)
[2018-04-08] MEDS: WARFARIN SOD 4 MG TAB PO SCH (20:56)
[2018-04-08] MEDS: diazePAM 5 MG TABLET PO PRN (22:03)
[2018-04-09] MEDS: TROSPIUM ~ ORDER AWAITING ACTION SCH ×3 (00:15→16:25)
[2018-04-09] MEDS: NEOMYCIN/POLYMYXIN/HYDROCORT OPH SUSP 7.5 ML BTL OP SCH ×8 (00:53→23:22)
[2018-04-09 05:52] LABS: Basophils # (auto) 0.03 K/uL (0-0.2); Basophils % (auto) 0.6 %; Eosinophils % (auto) 3.9 %; Hematocrit (blood only) 23.7 % (37-47); Hemoglobin 7.3 g/dL (12.0-16.0); Immature Granulocytes # (auto) 0.04 K/uL (0.00-0.02); Immature Granulocytes % (auto) 0.8 %; Lymphocytes # (auto) 0.47 K/uL (1.2-3.4); Lymphocytes % (auto) 9.2 %; Mean Corpuscular Hgb Conc 30.8 g/dL (32-36); Mean Corpuscular Volume 95.6 fL (80-100); Mean Platelet Volume 9.6 fL (7.4-10.4); Monocytes # (auto) 1.04 K/uL (0.11-0.59); Monocytes % (auto) 20.4 %; Neutrophils # (auto) 3.33 K/uL (1.4-6.5); Neutrophils % (auto) 65.1 %; Platelet Count 133 K/uL (130-400); RDW Coefficient of Variation 19.3 % (11.5-14.5); RDW Standard Deviation 65.8 fL (36.4-46.3); Red Blood Count 2.48 M/uL (4.2-5.4); White Blood Count 5.11 K/uL (4.8-10.8)
[2018-04-09] MEDS: LEVOTHYROXINE SODIUM 175 MCG TABLET PO SCH (05:53)
[2018-04-09 06:01] LABS: INR 1.3 (0.9-1.1); Prothrombin Time 13.1 Seconds (9.0-12.0)
[2018-04-09 06:16] LABS: Polychromasia 1+
[2018-04-09 06:26] LABS: Albumin Level 2.5 gm/dl (3.4-5.0); BUN Creatinine Ratio 12.9 (10-20); Calcium 8.3 mg/dl (8.5-10.1); Creatinine Clr Calc Pharmacy 20.9 ml/min; Est GFR (African American) 23.8; Est GFR (Non-African American) 20.5; Phosphorus 2.8 mg/dl (2.5-4.9); Potassium 4.6 mmol/L (3.5-5.1)
[2018-04-09] MEDS: SACCHAROMYCES BOULARDII 250 MG CAP PO SCH (09:08)
[2018-04-09] MEDS: FEXOFENADINE 60 MG TAB PO SCH ×2 (09:08→21:47)
[2018-04-09] MEDS: METOPROLOL SUCC 50MG EXT REL TAB PO SCH (09:09)
[2018-04-09] MEDS: PANTOprazole 40 MG TAB PO SCH (09:09)
[2018-04-09] MEDS: NEPHROCAPS PO SCH (09:09)
[2018-04-09] MEDS: DIGOXIN 0.125 MG TAB PO SCH (09:09)
[2018-04-09] MEDS: TRIAMCINOLONE ACET 0.1% CR 15 GM TUBE EXT SCH ×3 (09:10→21:48)
[2018-04-09] MEDS: DICLOFENAC SOD 1% GEL 100 GM TUBE EXT SCH ×4 (09:10→21:49)
[2018-04-09] MEDS: INSULIN GLARGINE 100 UNIT/ML VIAL SC SCH ×2 (09:13→21:48)
[2018-04-09] MEDS: NYSTATIN POWDER 15GM BTL EXT SCH ×4 (09:16→21:49)
[2018-04-09] MEDS ORDERED: Heparin IV Low Dose *NO* Bolus SCH (10:00)
[2018-04-09] MEDS: INSULIN ASPART 100 UNITS/ML 3 ML PEN SC SCH ×4 (10:13→21:53)
--- NOTE | 2018-04-09 10:16 | Nephrology Progress Note ---
Date of Service April 09, 2018 Assessment & Plan (1) End stage renal disease: Mrs. Morales was admitted to [facility] for evaluation of weakness and tense LE swelling limiting her ability to ambulate. She has severe pulmonary HTN resulting in R heart failure and cardiac cirrhosis. She has a chronic R Pleur- x catheter in place. Diuretic therapy has been met with worsening renal insufficiency and progressive azotemia and started on HD 03/27/18. Medical hx is also significant for chronic anemia requiring IV iron and BINH therapy. -- BP, volume status and electrolytes are appropriate -- Metabolic profile acceptable -- Continue HD on MWF schedule (2) Anemia: -- Hgb slightly lower this AM -- No signs of additional bleeding -- Epogen 53828 units with HD yesterday (3) Chronic kidney disease-mineral and bone disorder: -- on Calcitriol 0.25 mcg 3 times a week and renal vitamin daily (4) Nutrition disorder: -- Increased dietary protein intake encouraged (5) Discharge planning issues: -- Plan transfer to [facility]/ outpatient HD at [facility] when stable Subjective Mrs. Morales was seen in her hospital room this morning. No bleeding noted from THC site. Tolerated HD well yesterday. Net UF 3 L. Crystal feels well this morning. She is breathing comfortably. Activity tolerance remains limited. She remains on 2 L NC at rest. She denies any pain. Appetite is good. Respiratory: + dyspnea on exertion; no cough, no dyspnea and no sputum production Cardiovascular: + orthopnea and + edema (improving); no chest pain, no dyspnea at rest and no palpitations Hematologic / Lymphatic: + easy bleeding and + easy bruising Physical Exam 2 Vital Signs (Past 24 Hours): Last Vital Signs Temp 36.5 C 04/09/18 07:33 Pulse 70 04/09/18 09:09 Resp 18 04/09/18 07:33 BP 122/41 L 04/09/18 07:33 Pulse Ox 100 04/09/18 07:33 Constitutional: + obese (chronically ill appearing), + frail appearing and + edematous; not ill appearing Eyes: PERRL, conjunctivae normal, anicteric sclerae ENMT: external ear and nose normal, oropharynx normal Neck: trachea midline, no thyromegaly Respiratory: normal respiratory effort, lungs clear to auscultation no respiratory distress Auscultation: + rales (at the bases bilaterally) Cardiovascular: RRR, no murmur, no edema (1+ tense edema b/l LE) Rate/ Rhythm: regular rate Vessels: + JVD (below the angle of the jaw while seated upright) Extremities: + edema (tense bilateral LE edema) Gastrointestinal (Abdomen): Inspection/Auscultation: + abdomen distended and normal bowel sounds Skin: no rashes, warm and dry Neurologic: moves all extremities Psychiatric: A+Ox3, euthymic affect Results & Data Laboratory Results Laboratory Results - last 24 hr 04/08/18 04/08/18 04/09/18 11:36 20:35 05:22 WBC 5.11 RBC 2.48 L Hgb 7.3 L Hct 23.7 L MCV 95.6 MCH 29.4 MCHC 30.8 L RDW Std Deviation 65.8 H RDW Coeff of Marco 19.3 H Plt Count 133 MPV 9.6 Immature Gran % (Auto) 0.8 Neut % (Auto) 65.1 Lymph % (Auto) 9.2 [place] % (Auto) 20.4 Eos % (Auto) 3.9 Baso % (Auto) 0.6 Immature Gran # (Auto) 0.04 H Neut # (Auto) 3.33 Lymph # (Auto) 0.47 L [place] # (Auto) 1.04 H Eos # (Auto) 0.20 Baso # (Auto) 0.03 Polychromasia 1+ PT INR Sodium Potassium Chloride Carbon Dioxide Anion Gap BUN Creatinine Est Cr Clr Drug Dosing Est GFR ( Amer) Est GFR (Non-Af Amer) BUN/Creatinine Ratio Glucose POC Glucose 144 H 146 H Calcium Phosphorus Albumin 04/09/18 04/09/18 04/09/18 05:22 05:22 07:44 WBC RBC Hgb Hct MCV MCH MCHC RDW Std Deviation RDW Coeff of Marco Plt Count MPV Immature Gran % (Auto) Neut % (Auto) Lymph % (Auto) [place] % (Auto) Eos % (Auto) Baso % (Auto) Immature Gran # (Auto) Neut # (Auto) Lymph # (Auto) [place] # (Auto) Eos # (Auto) Baso # (Auto) Polychromasia PT 13.1 H INR 1.3 H Sodium 131 L Potassium 4.6 Chloride 99 Carbon Dioxide 26 Anion Gap 6.0 BUN 29 H Creatinine 2.26 H D Est Cr Clr Drug Dosing 20.9 Est GFR ( Amer) 23.8 Est GFR (Non-Af Amer) 20.5 BUN/Creatinine Ratio 12.9 Glucose 94 POC Glucose 94 Calcium 8.3 L Phosphorus 2.8 Albumin 2.5 L _ (1) Anemia Anemia type: unspecified type Bone marrow failure anemia type: Chronic kidney disease stage: Folate deficiency anemia type: Hemolytic anemia type: Iron deficiency anemia type: Other causes of anemia: Vitamin B12 deficiency anemia type: Qualified Code(s): D64.9 - Anemia, unspecified
[2018-04-09] MEDS: HEPARIN SODIUM/DEXTROSE 25,000 UNITS/500 ML BAG IV SCH (15:15)
[2018-04-09] MEDS: WARFARIN SOD 4 MG TAB PO SCH (16:23)
--- NOTE | 2018-04-09 16:24 | Hospitalist Progress Note ---
Date of Service April 09, 2018 Assessment & Plan (1) End stage renal disease: s/p permcath placement M/W/F HD schedule slowly removing volume - was massively volume-overloaded at time of presentation due to cirrhosis/right-sided heart failure, worsening renal disease , etc tolerating HD well, 3000mL removed every session, including yesterday 04/08 electrolytes stable plan for HD tomorrow will continue HD at [facility] and then outpatient at [facility] (2) H/O mitral valve replacement with mechanical valve: INR goal 2.5 to 3.5 INR low at 1.3 today because Coumadin held when she was bleeding received 4mg yesterday, give 8mg PO today, ordered heparin drip (no bolus) check INR daily (3) Hyponatremia: ongoing, multifactorial due to volume overload status (4) Acute on chronic right-sided congestive heart failure: volume status slowly improving with initiation of HD still with peripheral edema but a little less UF goal is 3L each time, tolerating well less dyspnea on exertion symtpoms, lungs are clear (5) Acute on chronic anemia: Hb down to 7.3 consider transfusion with HD tomorrow no further active bleeding transfused one unit with HD on 04/06 repeat H/H tomorrow (6) Hypothyroidism: synthroid most recent TSH acceptable (7) Atrial fibrillation: paced on monitor takes chronic coumadin (8) Cirrhosis: contributes to volume overload status no evidence of any hepatic encephalopathy (9) Pleural effusion, right: drain pleurX catheter daily 350cc out yesterday (10) COPD (chronic obstructive pulmonary disease): stable (11) UTI (urinary tract infection): completed seven days of Cefdinir (12) DVT prophylaxis: coumadin Subjective patient upset about heparin drip, does not understand why the Coumadin cannot just be increased explained that having her INR < 2.5 is a risk factor for stroke, want her anticoagulated now discussed increasing Coumadin to 8mg today, she was agreeable to heparin drip she continues to participate in therapy, breathing better after HD yesterday discussed situation with CM, difficult time getting patient to [facility], trying to determine if they can provide transport to HD no insurance authorization yet and no beds patient will be here through the weekend reviewed other labs, Hb still low at 7.3, INR low at 1.3 Review of Systems All systems reviewed & are unremarkable except as noted in HPI & below Constitutional: + weakness Respiratory: + dyspnea on exertion Cardiovascular: + dyspnea on exertion and + edema; no chest pain, no dyspnea at rest, no orthopnea and no paroxysmal nocturnal dyspnea Gastrointestinal: no nausea and no vomiting Physical Exam 2 Vital Signs (Past 24 Hours): Last Vital Signs Temp 36.8 C 04/09/18 15:32 Pulse 66 04/09/18 15:32 Resp 18 04/09/18 15:32 BP 121/56 L 04/09/18 15:32 Pulse Ox 94 04/09/18 15:32 Constitutional: WD/WN, vitals as above Eyes: PERRL, conjunctivae normal, anicteric sclerae ENMT: external ear and nose normal, oropharynx normal Neck: trachea midline, no thyromegaly Respiratory: normal respiratory effort; no respiratory distress, no labored breathing and no cough Auscultation: no diminished lung sounds Cardiovascular: Rate/Rhythm: regular rate and regular rhythm Heart Sounds: normal S1 and normal S2 (artificial heart sound); no murmur Extremities: + edema Chest (Breasts): Chest: + vascular access device or port (right tunneled catheter with dressing) Gastrointestinal (Abdomen): normal bowel sounds, soft, nontender, no hepatosplenomegaly Musculoskeletal: no cyanosis or clubbing, extremities motor strength 5/5 Skin: no rashes, warm and dry (chronic venous stasis changes in legs) Neurologic: patellar DTR's 2+ bilat, sensation intact and PERRL, EOMI, accommodation nl, no face palsy, no dysarthria Psychiatric: A+Ox3, euthymic affect Lymphatic: no cervical or axillary lymphadenopathy Results & Data Laboratory Results Laboratory Results - last 24 hr 04/08/18 04/09/18 04/09/18 20:35 05:22 05:22 WBC 5.11 RBC 2.48 L Hgb 7.3 L Hct 23.7 L MCV 95.6 MCH 29.4 MCHC 30.8 L RDW Std Deviation 65.8 H RDW Coeff of Marco 19.3 H Plt Count 133 MPV 9.6 Immature Gran % (Auto) 0.8 Neut % (Auto) 65.1 Lymph % (Auto) 9.2 [place] % (Auto) 20.4 Eos % (Auto) 3.9 Baso % (Auto) 0.6 Immature Gran # (Auto) 0.04 H Neut # (Auto) 3.33 Lymph # (Auto) 0.47 L [place] # (Auto) 1.04 H Eos # (Auto) 0.20 Baso # (Auto) 0.03 Polychromasia 1+ PT INR Sodium 131 L Potassium 4.6 Chloride 99 Carbon Dioxide 26 Anion Gap 6.0 BUN 29 H Creatinine 2.26 H D Est Cr Clr Drug Dosing 20.9 Est GFR ( Amer) 23.8 Est GFR (Non-Af Amer) 20.5 BUN/Creatinine Ratio 12.9 Glucose 94 POC Glucose 146 H Calcium 8.3 L Phosphorus 2.8 Albumin 2.5 L 04/09/18 04/09/18 04/09/18 05:22 07:44 11:51 WBC RBC Hgb Hct MCV MCH MCHC RDW Std Deviation RDW Coeff of Marco Plt Count MPV Immature Gran % (Auto) Neut % (Auto) Lymph % (Auto) [place] % (Auto) Eos % (Auto) Baso % (Auto) Immature Gran # (Auto) Neut # (Auto) Lymph # (Auto) [place] # (Auto) Eos # (Auto) Baso # (Auto) Polychromasia PT 13.1 H INR 1.3 H Sodium Potassium Chloride Carbon Dioxide Anion Gap BUN Creatinine Est Cr Clr Drug Dosing Est GFR ( Amer) Est GFR (Non-Af Amer) BUN/Creatinine Ratio Glucose POC Glucose 94 95 Calcium Phosphorus Albumin Medications Administered Current Inpatient Medications Acetaminophen (Tylenol) 650 mg PO Q4H PRN PRN Reason: pain/fever Stop: 04/24/18 16:17 Last Admin: 04/08/18 22:31 Dose: 650 mg Calcitriol (Racaltrol) 0.25 mcg PO MoWeFr@0900 [facility] Stop: 04/29/18 08:59 Last Admin: 04/08/18 08:33 Dose: 0.25 mcg Dextrose (Dextrose 50%) 25 - 50 ml IV UD PRN; Protocol PRN Reason: Hypoglycemia Protocol Stop: 04/24/18 16:17 Diazepam (Valium) 5 mg PO BID PRN PRN Reason: Anxiety Stop: 04/24/18 16:17 Last Admin: 04/08/18 22:03 Dose: 5 mg Diclofenac Sodium (Voltaren 1% Top) 1 appln EXT QID [facility] Stop: 04/25/18 20:59 Last Admin: 04/09/18 14:53 Dose: Not Given Digoxin (Lanoxin) 0.125 mg PO DAILY NAY Stop: 04/25/18 08:59 Last Admin: 04/09/18 09:09 Dose: 0.125 mg Diphenhydramine HCl (Benadryl) 25 mg PO Q6 PRN PRN Reason: Itching Stop: 05/06/18 10:22 Last Admin: 04/09/18 09:27 Dose: 25 mg Ezetimibe (Zetia) 10 mg PO HS NAY Stop: 04/24/18 20:59 Last Admin: 04/08/18 20:54 Dose: 10 mg Fexofenadine HCl (Vickie) 60 mg PO BID NAY Stop: 05/05/18 20:59 Last Admin: 04/09/18 09:08 Dose: 60 mg Glucagon (Glucagen) 1 mg SQ UD PRN; Protocol PRN Reason: Hypoglycemia Protocol Stop: 04/24/18 16:17 Glucose (Glucose 40%) 15 - 30 gm PO UD PRN; Protocol PRN Reason: Hypoglycemia Protocol Stop: 04/24/18 16:17 Glucose (Dex4 Glucose) 4 - 8 tabs PO UD PRN; Protocol PRN Reason: Hypoglycemia Protocol Stop: 04/24/18 16:17 Sodium Chloride (Nss 250ml) 250 mls @ 15 mls/hr IV .[id number] PRN PRN Reason: For Transfusion Stop: 04/27/18 00:54 Sodium Chloride (Nss 250ml) 250 mls @ 15 mls/hr IV .[id number] PRN PRN Reason: For Transfusion Stop: 05/03/18 07:53 Heparin Sodium/Dextrose (Heparin Sodium/Dextrose) 25,000 units in 500 mls @ 15 mls/hr IV .Q24H NAY; Protocol Stop: 05/09/18 10:29 Last Admin: 04/09/18 15:15 Dose: 750 units/hr, 15 mls/hr Insulin Aspart (Novolog Flexpen) 0 units SC ACHS [facility] Stop: 04/24/18 16:29 Last Admin: 04/09/18 13:09 Dose: 4 units Insulin Glargine (Lantus) 12 units SC BID [facility] Stop: 05/04/18 08:59 Last Admin: 04/09/18 09:13 Dose: 12 units Levothyroxine Sodium (Synthroid) 175 mcg PO DAILYBB [facility] Stop: 04/25/18 06:29 Last Admin: 04/09/18 05:53 Dose: 175 mcg Metoprolol Succinate (Toprol Xl) 100 mg PO DAILY [facility] Stop: 04/25/18 08:59 Last Admin: 04/09/18 09:09 Dose: 100 mg Miscellaneous (Carbohydrates For Hypoglycemia) 15 - 30 gm PO UD PRN PRN Reason: Hypoglycemia Treatment Stop: 04/24/18 16:17 Last Admin: 04/03/18 14:11 Dose: 15 gm Miscellaneous (Order Awaiting Action) 1 ea N/A QS [facility] Stop: 04/25/18 00:00 Last Admin: 04/09/18 09:15 Dose: 1 ea Multi-Ingredient Cream (Hydrocerin) 1 appln EXT Q1H PRN PRN Reason: Dryness Stop: 05/05/18 16:39 Last Admin: 04/06/18 01:17 Dose: 1 appln Neomycin/Polymyxin/Hydrocortisone (Cortisporin) 2 drops OP Q3H NAY Stop: 04/29/18 21:59 Last Admin: 04/09/18 13:07 Dose: 2 drops Nystatin (Mycostatin) 1 appln EXT QID [facility] Stop: 04/28/18 12:59 Last Admin: 04/09/18 13:12 Dose: Not Given Ondansetron HCl (Zofran) 4 mg IV Q6H PRN PRN Reason: Nausea Stop: 04/24/18 16:17 Oxycodone HCl (Roxicodone Immediate Rel) 2.5 mg PO Q8H PRN PRN Reason: Pain Stop: 04/11/18 22:03 Last Admin: 04/07/18 00:08 Dose: 2.5 mg Pantoprazole Sodium (Protonix) 40 mg PO QAM [facility] Stop: 04/25/18 08:59 Last Admin: 04/09/18 09:09 Dose: 40 mg Polyethylene Glycol (Miralax Powder Packet) 17 gm PO DAILY PRN PRN Reason: Constipation Stop: 04/24/18 16:17 Ranitidine HCl (Zantac) 150 mg PO QAM [facility] Stop: 05/04/18 08:59 Last Admin: 04/09/18 09:12 Dose: 150 mg Saccharomyces Boulardii (Florastor) 250 mg PO DAILY [facility] Stop: 04/25/18 08:59 Last Admin: 04/09/18 09:08 Dose: 250 mg Triamcinolone Acetonide (Kenalog 0.1%) 1 appln EXT TID [facility] Stop: 05/05/18 16:44 Last Admin: 04/09/18 14:54 Dose: Not Given Vitamin B Complex/Folic Acid (Nephrocaps) 1 cap PO DAILY [facility] Stop: 04/29/18 08:59 Last Admin: 04/09/18 09:09 Dose: 1 cap Warfarin Sodium (Coumadin) 4 mg PO DAILY@1600 [facility] Stop: 05/07/18 15:59 Last Admin: 04/08/18 20:56 Dose: 4 mg Warfarin Sodium (Coumadin) 4 mg PO NOW [facility] Stop: 04/09/18 16:23 _ (1) UTI (urinary tract infection) Encounter type: Hematuria presence: without hematuria Indwelling urinary catheter type: Urinary tract infection type: acute cystitis Qualified Code(s) : N30.00 - Acute cystitis without hematuria (2) Atrial fibrillation Atrial fibrillation type: chronic Qualified Code(s): I48.2 - Chronic atrial fibrillation (3) Hypothyroidism Hypothyroidism type: acquired Qualified Code(s): E03.9 - Hypothyroidism, unspecified (4) Cirrhosis Ascites presence: Hepatic cirrhosis type: other cirrhosis Qualified Code(s) : K74.69 - Other cirrhosis of liver (5) COPD (chronic obstructive pulmonary disease) COPD type: unspecified COPD Chronic bronchitis type: Emphysema type: Qualified Code(s): J44.9 - Chronic obstructive pulmonary disease, unspecified
[2018-04-09] MEDS ORDERED: WARFARIN SOD 4 MG TAB PO ONE (16:45)
[2018-04-09 21:44] LABS: Partial Thromboplastin Ratio 1.3; Partial Thromboplastin Time 34.1 Seconds (21.0-31.0)
[2018-04-09] MEDS: EUCERIN CR 120 GM JAR EXT PRN (21:47)
[2018-04-09] MEDS: EZETIMIBE 10 MG TABLET PO SCH (21:49)
[2018-04-09] MEDS: diazePAM 5 MG TABLET PO PRN (21:59)
[2018-04-09] MEDS ORDERED: HEPARIN IV BOLUS 4,000 UNITS in SYRINGE 0 ML IV SCH (22:30)
[2018-04-10] MEDS: TROSPIUM ~ ORDER AWAITING ACTION SCH ×3 (02:02→16:39)
[2018-04-10] MEDS: NEOMYCIN/POLYMYXIN/HYDROCORT OPH SUSP 7.5 ML BTL OP SCH ×7 (02:02→20:47)
[2018-04-10] MEDS: LEVOTHYROXINE SODIUM 175 MCG TABLET PO SCH (06:05)
[2018-04-10 06:42] LABS: Basophils # (auto) 0.05 K/uL (0-0.2); Basophils % (auto) 0.9 %; Eosinophils # (auto) 0.26 K/uL (0-0.5); Eosinophils % (auto) 4.9 %; Hematocrit (blood only) 23.4 % (37-47); Hemoglobin 7.2 g/dL (12.0-16.0); Immature Granulocytes # (auto) 0.04 K/uL (0.00-0.02); Immature Granulocytes % (auto) 0.8 %; Lymphocytes # (auto) 0.48 K/uL (1.2-3.4); Lymphocytes % (auto) 9.1 %; Mean Corpuscular Hgb Conc 30.8 g/dL (32-36); Mean Corpuscular Volume 94.7 fL (80-100); Mean Platelet Volume 9.5 fL (7.4-10.4); Monocytes # (auto) 1.03 K/uL (0.11-0.59); Monocytes % (auto) 19.4 %; Neutrophils # (auto) 3.44 K/uL (1.4-6.5); Neutrophils % (auto) 64.9 %; Platelet Count 139 K/uL (130-400); RDW Coefficient of Variation 19.6 % (11.5-14.5); RDW Standard Deviation 66.3 fL (36.4-46.3); Red Blood Count 2.47 M/uL (4.2-5.4)
[2018-04-10 06:57] LABS: INR 1.4 (0.9-1.1); Prothrombin Time 14.2 Seconds (9.0-12.0)
[2018-04-10 07:06] LABS: Partial Thromboplastin Ratio 1.8
[2018-04-10 07:13] LABS: Anisocytosis Present; Polychromasia 1+
[2018-04-10 07:15] LABS: Albumin Level 2.7 gm/dl (3.4-5.0); BUN Creatinine Ratio 14.2 (10-20); Calcium 8.4 mg/dl (8.5-10.1); Creatinine Clr Calc Pharmacy 15.4 ml/min; Est GFR (Non-African American) 13.8; Potassium 5.1 mmol/L (3.5-5.1)
[2018-04-10 07:16] LABS: Partial Thromboplastin Time 47.4 Seconds (21.0-31.0)
[2018-04-10] MEDS ORDERED: SODIUM CHLORIDE 0.9% 1000ML 1,000 ML IV PRN (08:20)
[2018-04-10] MEDS: CALCITRIOL 0.25 MCG CAPSULE PO SCH (08:38)
[2018-04-10] MEDS: PANTOprazole 40 MG TAB PO SCH (08:39)
[2018-04-10] MEDS: NEPHROCAPS PO SCH (08:39)
[2018-04-10] MEDS: FEXOFENADINE 60 MG TAB PO SCH (08:40)
[2018-04-10] MEDS: SACCHAROMYCES BOULARDII 250 MG CAP PO SCH (08:40)
[2018-04-10] MEDS: DIGOXIN 0.125 MG TAB PO SCH (08:40)
[2018-04-10] MEDS: DICLOFENAC SOD 1% GEL 100 GM TUBE EXT SCH ×4 (08:41→20:48)
[2018-04-10] MEDS: EUCERIN CR 120 GM JAR EXT PRN (08:42)
[2018-04-10] MEDS: METOPROLOL SUCC 50MG EXT REL TAB PO SCH (08:44)
[2018-04-10] MEDS: NYSTATIN POWDER 15GM BTL EXT SCH ×4 (08:45→20:47)
[2018-04-10] MEDS: INSULIN GLARGINE 100 UNIT/ML VIAL SC SCH ×2 (08:46→20:44)
[2018-04-10] MEDS: TRIAMCINOLONE ACET 0.1% CR 15 GM TUBE EXT SCH ×3 (08:47→20:48)
[2018-04-10] MEDS: INSULIN ASPART 100 UNITS/ML 3 ML PEN SC SCH ×4 (08:50→20:47)
[2018-04-10] MEDS: ACETAMINOPHEN 325 MG TAB PO PRN (09:04)
--- NOTE | 2018-04-10 10:28 | Nephrology Progress Note ---
Date of Service April 10, 2018 Assessment & Plan (1) End stage renal disease: Mrs. Morales was admitted to [facility] for evaluation of weakness and tense LE swelling limiting her ability to ambulate. She has severe pulmonary HTN resulting in R heart failure and cardiac cirrhosis. She has a chronic R Pleur- x catheter in place. Diuretic therapy was met with worsening renal insufficiency and progressive azotemia and started on HD 03/27/18. Medical hx is also significant for chronic anemia requiring IV iron and BINH therapy. -- HD orders entered into EMR and discussed with HD nurse -- Metabolic profile acceptable -- Continue HD on MWF schedule (2) Anemia: -- Hgb slightly lower this AM -- 1 u PRBC to be given with HD today -- Epogen [id number] units with HD on Friday (3) Chronic kidney disease-mineral and bone disorder: -- On Calcitriol 0.25 mcg 3 times a week and renal vitamin daily (4) Nutrition disorder: -- Increased dietary protein intake encouraged (5) Discharge planning issues: -- Plan transfer to [facility]/ outpatient HD at [facility] when stable Subjective Mrs. Morales was seen in her hospital room this morning. No bleeding noted from THC site. Crystal feels well this morning. She is breathing comfortably. She denies pain. Respiratory: + dyspnea on exertion; no cough and no sputum production Cardiovascular: + orthopnea and + edema (improving); no chest pain, no dyspnea at rest and no palpitations Hematologic / Lymphatic: + easy bleeding and + easy bruising Physical Exam 2 Vital Signs (Past 24 Hours): Last Vital Signs Temp 36.5 C 04/10/18 09:15 Pulse 61 04/10/18 10:15 Resp 17 04/10/18 08:10 BP 121/55 L 04/10/18 10:15 Pulse Ox 97 04/10/18 08:10 Constitutional: + frail appearing and + edematous Eyes: PERRL, conjunctivae normal, anicteric sclerae ENMT: external ear and nose normal, oropharynx normal Neck: trachea midline, no thyromegaly Respiratory: normal respiratory effort, lungs clear to auscultation no respiratory distress Cardiovascular: RRR, no murmur, no edema (1+ tense edema b/l LE) Rate/ Rhythm: regular rate Extremities: + edema (tense bilateral LE edema) Gastrointestinal (Abdomen): Inspection/Auscultation: + abdomen distended and normal bowel sounds Skin: no rashes, warm and dry Neurologic: moves all extremities Psychiatric: A+Ox3, euthymic affect Results & Data Laboratory Results Laboratory Results - last 24 hr 04/09/18 04/09/18 04/09/18 11:51 17:00 20:17 WBC RBC Hgb Hct MCV MCH MCHC RDW Std Deviation RDW Coeff of Marco Plt Count MPV Immature Gran % (Auto) Neut % (Auto) Lymph % (Auto) [place] % (Auto) Eos % (Auto) Baso % (Auto) Immature Gran # (Auto) Neut # (Auto) Lymph # (Auto) [place] # (Auto) Eos # (Auto) Baso # (Auto) Polychromasia Anisocytosis PT INR APTT PTT Ratio Sodium Potassium Chloride Carbon Dioxide Anion Gap BUN Creatinine Est Cr Clr Drug Dosing Est GFR ( Amer) Est GFR (Non-Af Amer) BUN/Creatinine Ratio Glucose POC Glucose 95 116 H 150 H Calcium Phosphorus Albumin Crossmatch 04/09/18 04/10/18 04/10/18 21:22 06:17 06:17 WBC 5.30 RBC 2.47 L Hgb 7.2 L Hct 23.4 L MCV 94.7 MCH 29.1 MCHC 30.8 L RDW Std Deviation 66.3 H RDW Coeff of Marco 19.6 H Plt Count 139 MPV 9.5 Immature Gran % (Auto) 0.8 Neut % (Auto) 64.9 Lymph % (Auto) 9.1 [place] % (Auto) 19.4 Eos % (Auto) 4.9 Baso % (Auto) 0.9 Immature Gran # (Auto) 0.04 H Neut # (Auto) 3.44 Lymph # (Auto) 0.48 L [place] # (Auto) 1.03 H Eos # (Auto) 0.26 Baso # (Auto) 0.05 Polychromasia 1+ Anisocytosis Present PT INR APTT 34.1 H PTT Ratio 1.3 Sodium 127 L Potassium 5.1 Chloride 97 L Carbon Dioxide 25 Anion Gap 5.0 BUN 45 H D Creatinine 3.14 H D Est Cr Clr Drug Dosing 15.4 Est GFR ( Amer) 16.0 Est GFR (Non-Af Amer) 13.8 BUN/Creatinine Ratio 14.2 Glucose 114 H POC Glucose Calcium 8.4 L Phosphorus 4.0 D Albumin 2.7 L Crossmatch 04/10/18 04/10/18 04/10/18 06:17 06:17 07:55 WBC RBC Hgb Hct MCV MCH MCHC RDW Std Deviation RDW Coeff of Marco Plt Count MPV Immature Gran % (Auto) Neut % (Auto) Lymph % (Auto) [place] % (Auto) Eos % (Auto) Baso % (Auto) Immature Gran # (Auto) Neut # (Auto) Lymph # (Auto) [place] # (Auto) Eos # (Auto) Baso # (Auto) Polychromasia Anisocytosis PT 14.2 H INR 1.4 H APTT 47.4 H* PTT Ratio 1.8 Sodium Potassium Chloride Carbon Dioxide Anion Gap BUN Creatinine Est Cr Clr Drug Dosing Est GFR ( Amer) Est GFR (Non-Af Amer) BUN/Creatinine Ratio Glucose POC Glucose 115 H Calcium Phosphorus Albumin Crossmatch 04/10/18 09:04 WBC RBC Hgb Hct MCV MCH MCHC RDW Std Deviation RDW Coeff of Marco Plt Count MPV Immature Gran % (Auto) Neut % (Auto) Lymph % (Auto) [place] % (Auto) Eos % (Auto) Baso % (Auto) Immature Gran # (Auto) Neut # (Auto) Lymph # (Auto) [place] # (Auto) Eos # (Auto) Baso # (Auto) Polychromasia Anisocytosis PT INR APTT PTT Ratio Sodium Potassium Chloride Carbon Dioxide Anion Gap BUN Creatinine Est Cr Clr Drug Dosing Est GFR ( Amer) Est GFR (Non-Af Amer) BUN/Creatinine Ratio Glucose POC Glucose Calcium Phosphorus Albumin Crossmatch See Detail _ (1) Anemia Anemia type: unspecified type Bone marrow failure anemia type: Chronic kidney disease stage: Folate deficiency anemia type: Hemolytic anemia type: Iron deficiency anemia type: Other causes of anemia: Vitamin B12 deficiency anemia type: Qualified Code(s): D64.9 - Anemia, unspecified
[2018-04-10] MEDS ORDERED: SODIUM CHLORIDE 0.9% 250 ML IV PRN (12:16)
[2018-04-10] MEDS: HEPARIN SODIUM/DEXTROSE 25,000 UNITS/500 ML BAG IV SCH (14:32)
[2018-04-10] MEDS ORDERED: WARFARIN SOD 4 MG TAB PO ONE (15:53)
--- NOTE | 2018-04-10 15:57 | Hospitalist Progress Note ---
Date of Service April 10, 2018 Assessment & Plan (1) End stage renal disease: s/p permcath placement M/W/F HD schedule slowly removing volume - was massively volume-overloaded at time of presentation due to cirrhosis/right-sided heart failure, worsening renal disease , etc tolerating HD well, 3000mL removed today electrolytes stable will continue HD at [facility] and then outpatient at [facility] (2) H/O mitral valve replacement with mechanical valve: INR goal 2.5 to 3.5 INR still low at 1.4 today because Coumadin held when she was bleeding give 8mg PO today again (8mg given yesterday), continue heparin drip (no bolus) check INR daily (3) Hyponatremia: ongoing, multifactorial due to volume overload status (4) Acute on chronic right-sided congestive heart failure: volume status slowly improving with initiation of HD still with peripheral edema UF goal is 3L each time, tolerating well less dyspnea on exertion symtpoms, lungs are clear (5) Acute on chronic anemia: Hb down to 7.2 transfused one unit with HD today no further active bleeding (no bleeding from catheter, no dark stools) repeat H/H tomorrow (6) Hypothyroidism: synthroid most recent TSH acceptable (7) Atrial fibrillation: paced on monitor takes chronic coumadin (8) Cirrhosis: contributes to volume overload status no evidence of any hepatic encephalopathy (9) Pleural effusion, right: drain pleurX catheter daily (10) COPD (chronic obstructive pulmonary disease): stable (11) UTI (urinary tract infection): completed seven days of Cefdinir (12) DVT prophylaxis: coumadin Subjective patient tolerated HD and blood transfusion today she said she was more short of breath this morning prior to HD eating well participating in therapy reviewed labs, INR still too low at 1.4, continue on heparin drip Hb down to 7.2 this morning discussed case with Dr. Mercado appreciate his assistance discussed case with CM, working on placement at [facility] Review of Systems All systems reviewed & are unremarkable except as noted in HPI & below Respiratory: + dyspnea on exertion; no cough Cardiovascular: + edema; no chest pain Gastrointestinal: no abdominal pain, no nausea, no vomiting, no constipation and no diarrhea/loose stools Physical Exam 2 Vital Signs (Past 24 Hours): Last Vital Signs Temp 36.5 C 04/10/18 12:34 Pulse 59 L 04/10/18 13:15 Resp 18 04/10/18 12:34 BP 106/53 L 04/10/18 13:15 Pulse Ox 97 04/10/18 08:10 Constitutional: WD/WN, vitals as above Eyes: PERRL, conjunctivae normal, anicteric sclerae ENMT: external ear and nose normal, oropharynx normal Neck: trachea midline, no thyromegaly Respiratory: normal respiratory effort; no respiratory distress, no labored breathing and no cough Auscultation: no diminished lung sounds Cardiovascular: Rate/Rhythm: regular rate and regular rhythm Heart Sounds: normal S1 and normal S2 (artificial heart sound); no murmur Extremities: + edema Chest (Breasts): Chest: + vascular access device or port (right tunneled catheter with dressing) Gastrointestinal (Abdomen): normal bowel sounds, soft, nontender, no hepatosplenomegaly Musculoskeletal: no cyanosis or clubbing, extremities motor strength 5/5 Skin: no rashes, warm and dry (chronic venous stasis changes in legs) Neurologic: patellar DTR's 2+ bilat, sensation intact and PERRL, EOMI, accommodation nl, no face palsy, no dysarthria Psychiatric: A+Ox3, euthymic affect Lymphatic: no cervical or axillary lymphadenopathy Results & Data Laboratory Results Laboratory Results - last 24 hr 04/06/18 04/09/18 04/09/18 08:55 17:00 20:17 WBC RBC Hgb Hct MCV MCH MCHC RDW Std Deviation RDW Coeff of Marco Plt Count MPV Immature Gran % (Auto) Neut % (Auto) Lymph % (Auto) Otero % (Auto) Eos % (Auto) Baso % (Auto) Immature Gran # (Auto) Neut # (Auto) Lymph # (Auto) Otero # (Auto) Eos # (Auto) Baso # (Auto) Polychromasia Anisocytosis PT INR APTT PTT Ratio Sodium Potassium Chloride Carbon Dioxide Anion Gap BUN Creatinine Est Cr Clr Drug Dosing Est GFR ( Amer) Est GFR (Non-Af Amer) BUN/Creatinine Ratio Glucose POC Glucose 116 H 150 H Calcium Phosphorus Albumin Blood Type Antibody Screen Antibody Identification Crossmatch See Detail 04/09/18 04/10/18 04/10/18 21:22 06:17 06:17 WBC 5.30 RBC 2.47 L Hgb 7.2 L Hct 23.4 L MCV 94.7 MCH 29.1 MCHC 30.8 L RDW Std Deviation 66.3 H RDW Coeff of Marco 19.6 H Plt Count 139 MPV 9.5 Immature Gran % (Auto) 0.8 Neut % (Auto) 64.9 Lymph % (Auto) 9.1 Otero % (Auto) 19.4 Eos % (Auto) 4.9 Baso % (Auto) 0.9 Immature Gran # (Auto) 0.04 H Neut # (Auto) 3.44 Lymph # (Auto) 0.48 L Otero # (Auto) 1.03 H Eos # (Auto) 0.26 Baso # (Auto) 0.05 Polychromasia 1+ Anisocytosis Present PT INR APTT 34.1 H PTT Ratio 1.3 Sodium 127 L Potassium 5.1 Chloride 97 L Carbon Dioxide 25 Anion Gap 5.0 BUN 45 H D Creatinine 3.14 H D Est Cr Clr Drug Dosing 15.4 Est GFR ( Amer) 16.0 Est GFR (Non-Af Amer) 13.8 BUN/Creatinine Ratio 14.2 Glucose 114 H POC Glucose Calcium 8.4 L Phosphorus 4.0 D Albumin 2.7 L Blood Type Antibody Screen Antibody Identification Crossmatch 04/10/18 04/10/18 04/10/18 06:17 06:17 07:55 WBC RBC Hgb Hct MCV MCH MCHC RDW Std Deviation RDW Coeff of Marco Plt Count MPV Immature Gran % (Auto) Neut % (Auto) Lymph % (Auto) Otero % (Auto) Eos % (Auto) Baso % (Auto) Immature Gran # (Auto) Neut # (Auto) Lymph # (Auto) Otero # (Auto) Eos # (Auto) Baso # (Auto) Polychromasia Anisocytosis PT 14.2 H INR 1.4 H APTT 47.4 H* PTT Ratio 1.8 Sodium Potassium Chloride Carbon Dioxide Anion Gap BUN Creatinine Est Cr Clr Drug Dosing Est GFR ( Amer) Est GFR (Non-Af Amer) BUN/Creatinine Ratio Glucose POC Glucose 115 H Calcium Phosphorus Albumin Blood Type Antibody Screen Antibody Identification Crossmatch 04/10/18 04/10/18 09:04 14:16 WBC RBC Hgb Hct MCV MCH MCHC RDW Std Deviation RDW Coeff of Marco Plt Count MPV Immature Gran % (Auto) Neut % (Auto) Lymph % (Auto) Otero % (Auto) Eos % (Auto) Baso % (Auto) Immature Gran # (Auto) Neut # (Auto) Lymph # (Auto) Otero # (Auto) Eos # (Auto) Baso # (Auto) Polychromasia Anisocytosis PT INR APTT PTT Ratio Sodium Potassium Chloride Carbon Dioxide Anion Gap BUN Creatinine Est Cr Clr Drug Dosing Est GFR ( Amer) Est GFR (Non-Af Amer) BUN/Creatinine Ratio Glucose POC Glucose 81 Calcium Phosphorus Albumin Blood Type A Positive Antibody Screen POSITIVE A Antibody Identification Anti-c Crossmatch See Detail Medications Administered Current Inpatient Medications Acetaminophen (Tylenol) 650 mg PO Q4H PRN PRN Reason: pain/fever Stop: 04/24/18 16:17 Last Admin: 04/10/18 09:04 Dose: 650 mg Calcitriol (Racaltrol) 0.25 mcg PO MoWeFr@0900 [facility] Stop: 04/29/18 08:59 Last Admin: 04/10/18 08:38 Dose: 0.25 mcg Dextrose (Dextrose 50%) 25 - 50 ml IV UD PRN; Protocol PRN Reason: Hypoglycemia Protocol Stop: 04/24/18 16:17 Diazepam (Valium) 5 mg PO BID PRN PRN Reason: Anxiety Stop: 04/24/18 16:17 Last Admin: 04/09/18 21:59 Dose: 5 mg Diclofenac Sodium (Voltaren 1% Top) 1 appln EXT QID [facility] Stop: 04/25/18 20:59 Last Admin: 04/10/18 14:39 Dose: 1 appln Digoxin (Lanoxin) 0.125 mg PO DAILY [facility] Stop: 04/25/18 08:59 Last Admin: 04/10/18 08:40 Dose: 0.125 mg Diphenhydramine HCl (Benadryl) 25 mg PO Q6 PRN PRN Reason: Itching Stop: 05/06/18 10:22 Last Admin: 04/10/18 06:09 Dose: 25 mg Ezetimibe (Zetia) 10 mg PO HS [facility] Stop: 04/24/18 20:59 Last Admin: 04/09/18 21:49 Dose: 10 mg Fexofenadine HCl (Vickie) 60 mg PO BID [facility] Stop: 05/05/18 20:59 Last Admin: 04/10/18 08:40 Dose: 60 mg Glucagon (Glucagen) 1 mg SQ UD PRN; Protocol PRN Reason: Hypoglycemia Protocol Stop: 04/24/18 16:17 Glucose (Glucose 40%) 15 - 30 gm PO UD PRN; Protocol PRN Reason: Hypoglycemia Protocol Stop: 04/24/18 16:17 Glucose (Dex4 Glucose) 4 - 8 tabs PO UD PRN; Protocol PRN Reason: Hypoglycemia Protocol Stop: 04/24/18 16:17 Sodium Chloride (Nss 250ml) 250 mls @ 15 mls/hr IV .[id number] PRN PRN Reason: For Transfusion Stop: 04/27/18 00:54 Sodium Chloride (Nss 250ml) 250 mls @ 15 mls/hr IV .[id number] PRN PRN Reason: For Transfusion Stop: 05/03/18 07:53 Heparin Sodium/Dextrose (Heparin Sodium/Dextrose) 25,000 units in 500 mls @ 18 mls/hr IV .Q24H NAY; Protocol Stop: 05/09/18 10:29 Last Titration: 04/10/18 15:20 Dose: 900 units/hr, 18 mls/hr Sodium Chloride (Nss 250ml) 250 mls @ 15 mls/hr IV .[id number] PRN PRN Reason: For Transfusion Stop: 05/10/18 12:15 Insulin Aspart (Novolog Flexpen) 0 units SC ACHS [facility] Stop: 04/24/18 16:29 Last Admin: 04/10/18 14:42 Dose: 300 units Insulin Glargine (Lantus) 12 units SC BID [facility] Stop: 05/04/18 08:59 Last Admin: 04/10/18 08:46 Dose: 12 units Levothyroxine Sodium (Synthroid) 175 mcg PO DAILYBB NAY Stop: 04/25/18 06:29 Last Admin: 04/10/18 06:05 Dose: 175 mcg Metoprolol Succinate (Toprol Xl) 100 mg PO DAILY [facility] Stop: 04/25/18 08:59 Last Admin: 04/10/18 08:44 Dose: Not Given Miscellaneous (Carbohydrates For Hypoglycemia) 15 - 30 gm PO UD PRN PRN Reason: Hypoglycemia Treatment Stop: 04/24/18 16:17 Last Admin: 04/03/18 14:11 Dose: 15 gm Miscellaneous (Order Awaiting Action) 1 ea N/A QS [facility] Stop: 04/25/18 00:00 Last Admin: 04/10/18 08:51 Dose: Not Given Multi-Ingredient Cream (Hydrocerin) 1 appln EXT Q1H PRN PRN Reason: Dryness Stop: 05/05/18 16:39 Last Admin: 04/10/18 08:42 Dose: 1 appln Neomycin/Polymyxin/Hydrocortisone (Cortisporin) 2 drops OP Q3H [facility] Stop: 04/29/18 21:59 Last Admin: 04/10/18 14:40 Dose: 2 drops Nystatin (Mycostatin) 1 appln EXT QID [facility] Stop: 04/28/18 12:59 Last Admin: 04/10/18 14:39 Dose: Not Given Ondansetron HCl (Zofran) 4 mg IV Q6H PRN PRN Reason: Nausea Stop: 04/24/18 16:17 Oxycodone HCl (Roxicodone Immediate Rel) 2.5 mg PO Q8H PRN PRN Reason: Pain Stop: 04/11/18 22:03 Last Admin: 04/07/18 00:08 Dose: 2.5 mg Pantoprazole Sodium (Protonix) 40 mg PO QAM [facility] Stop: 04/25/18 08:59 Last Admin: 04/10/18 08:39 Dose: 40 mg Polyethylene Glycol (Miralax Powder Packet) 17 gm PO DAILY PRN PRN Reason: Constipation Stop: 04/24/18 16:17 Ranitidine HCl (Zantac) 150 mg PO QAM [facility] Stop: 05/04/18 08:59 Last Admin: 04/10/18 08:43 Dose: 150 mg Saccharomyces Boulardii (Florastor) 250 mg PO DAILY [facility] Stop: 04/25/18 08:59 Last Admin: 04/10/18 08:40 Dose: 250 mg Triamcinolone Acetonide (Kenalog 0.1%) 1 appln EXT TID [facility] Stop: 05/05/18 16:44 Last Admin: 04/10/18 14:43 Dose: Not Given Vitamin B Complex/Folic Acid (Nephrocaps) 1 cap PO DAILY [facility] Stop: 04/29/18 08:59 Last Admin: 04/10/18 08:39 Dose: 1 cap Warfarin Sodium (Coumadin) 4 mg PO DAILY@1600 [facility] Stop: 05/07/18 15:59 Last Admin: 04/09/18 16:23 Dose: 4 mg Warfarin Sodium (Coumadin) 4 mg PO ONE ONE Stop: 04/10/18 15:54 _ (1) UTI (urinary tract infection) Encounter type: Hematuria presence: without hematuria Indwelling urinary catheter type: Urinary tract infection type: acute cystitis Qualified Code(s) : N30.00 - Acute cystitis without hematuria (2) Atrial fibrillation Atrial fibrillation type: chronic Qualified Code(s): I48.2 - Chronic atrial fibrillation (3) Hypothyroidism Hypothyroidism type: acquired Qualified Code(s): E03.9 - Hypothyroidism, unspecified (4) Cirrhosis Ascites presence: Hepatic cirrhosis type: other cirrhosis Qualified Code(s) : K74.69 - Other cirrhosis of liver (5) COPD (chronic obstructive pulmonary disease) COPD type: unspecified COPD Chronic bronchitis type: Emphysema type: Qualified Code(s): J44.9 - Chronic obstructive pulmonary disease, unspecified
[2018-04-10] MEDS: WARFARIN SOD 4 MG TAB PO SCH (16:39)
[2018-04-10] MEDS: CETIRIZINE HCL 10 MG TABLET PO SCH (20:42)
[2018-04-10] MEDS: EZETIMIBE 10 MG TABLET PO SCH (20:48)
[2018-04-10] MEDS: diazePAM 5 MG TABLET PO PRN (20:54)
[2018-04-11] MEDS: TROSPIUM ~ ORDER AWAITING ACTION SCH ×3 (00:48→14:58)
[2018-04-11] MEDS: NEOMYCIN/POLYMYXIN/HYDROCORT OPH SUSP 7.5 ML BTL OP SCH ×8 (00:48→21:17)
[2018-04-11] MEDS: LEVOTHYROXINE SODIUM 175 MCG TABLET PO SCH (05:31)
[2018-04-11 08:47] LABS: Basophils # (auto) 0.03 K/uL (0-0.2); Basophils % (auto) 0.6 %; Eosinophils # (auto) 0.27 K/uL (0-0.5); Eosinophils % (auto) 5.6 %; Hematocrit (blood only) 24.8 % (37-47); Hemoglobin 7.7 g/dL (12.0-16.0); Immature Granulocytes # (auto) 0.02 K/uL (0.00-0.02); Immature Granulocytes % (auto) 0.4 %; Lymphocytes # (auto) 0.58 K/uL (1.2-3.4); Mean Corpuscular Volume 95.4 fL (80-100); Mean Platelet Volume 9.6 fL (7.4-10.4); Monocytes # (auto) 0.72 K/uL (0.11-0.59); Monocytes % (auto) 14.9 %; Neutrophils # (auto) 3.22 K/uL (1.4-6.5); Neutrophils % (auto) 66.5 %; Platelet Count 142 K/uL (130-400); RDW Coefficient of Variation 19.6 % (11.5-14.5); RDW Standard Deviation 67.3 fL (36.4-46.3); White Blood Count 4.84 K/uL (4.8-10.8)
[2018-04-11] MEDS: INSULIN ASPART 100 UNITS/ML 3 ML PEN SC SCH ×4 (08:48→21:15)
[2018-04-11] MEDS: INSULIN GLARGINE 100 UNIT/ML VIAL SC SCH ×2 (08:49→21:10)
[2018-04-11 08:53] LABS: INR 1.8 (0.9-1.1); Prothrombin Time 17.2 Seconds (9.0-12.0)
[2018-04-11] MEDS: CETIRIZINE HCL 10 MG TABLET PO SCH ×2 (08:53→21:16)
[2018-04-11] MEDS: SACCHAROMYCES BOULARDII 250 MG CAP PO SCH (08:53)
[2018-04-11] MEDS: NEPHROCAPS PO SCH (08:54)
[2018-04-11] MEDS: METOPROLOL SUCC 50MG EXT REL TAB PO SCH (08:54)
[2018-04-11] MEDS: DIGOXIN 0.125 MG TAB PO SCH (08:54)
[2018-04-11] MEDS: DICLOFENAC SOD 1% GEL 100 GM TUBE EXT SCH ×4 (08:54→21:12)
[2018-04-11] MEDS: PANTOprazole 40 MG TAB PO SCH (08:54)
[2018-04-11] MEDS: TRIAMCINOLONE ACET 0.1% CR 15 GM TUBE EXT SCH ×3 (08:55→21:09)
[2018-04-11] MEDS: NYSTATIN POWDER 15GM BTL EXT SCH ×4 (08:55→21:11)
[2018-04-11 09:13] LABS: Albumin Level 2.6 gm/dl (3.4-5.0); Calcium 8.3 mg/dl (8.5-10.1); Creatinine Clr Calc Pharmacy 17.9 ml/min; Est GFR (African American) 19.5; Est GFR (Non-African American) 16.8; Phosphorus 4.4 mg/dl (2.5-4.9); Potassium 4.4 mmol/L (3.5-5.1)
[2018-04-11 09:20] LABS: Anisocytosis Present; Polychromasia 1+
[2018-04-11 09:46] LABS: Partial Thromboplastin Ratio 1.6; Partial Thromboplastin Time 42.5 Seconds (21.0-31.0)
--- NOTE | 2018-04-11 09:58 | Nephrology Progress Note ---
Date of Service April 11, 2018 Assessment & Plan (1) End stage renal disease: Mrs. Morales was admitted to [facility] for evaluation of weakness and tense LE swelling limiting her ability to ambulate. She has severe pulmonary HTN resulting in R heart failure and cardiac cirrhosis. She has a chronic R Pleur- x catheter in place. Diuretic therapy was met with worsening renal insufficiency and progressive azotemia. HD started on to aid in controlling volume status. -- HD q MWF while inpatient. Plan to start TTS schedule at discharge. -- Metabolic profile acceptable, free water restriction established for persistent hyponatremia. -- Crystal is tolerating HD well. No additional bleeding has been noted from TDC exit site. (2) Anemia: Medical hx includes chronic anemia requiring IV iron and BINH therapy. -- Hgb improved following additional 1 u PRBC yesterday. -- Epogen 06394 units with HD on 04/08/18. -- Repeat H/H tomorrow. -- No signs of additional blood loss. (3) Chronic kidney disease-mineral and bone disorder: -- On Calcitriol 0.25 mcg 3 times a week and renal vitamin daily (4) Nutrition disorder: -- Increased dietary protein intake encouraged. (5) Discharge planning issues: -- Plan transfer to [facility]/ outpatient HD at [facility]. Potential discharge Friday. Subjective Mrs. Morales was seen in her hospital room this morning. She was eating breakfast and reports a good appetite. Activity tolerance remains poor. She notes that she is weak and in need of rehab/physical therapy. Dyspnea improves at rest. She tolerated HD well yesterday. UF 2.5 L. She denies any evidence of bleeding. Heparin gtt continues to infuse. INR 1.8 this AM. No bleeding noted from THC site. She denies pain. Respiratory: + dyspnea on exertion; no cough and no sputum production Cardiovascular: + edema (improving); no chest pain, no dyspnea at rest and no palpitations Hematologic / Lymphatic: + easy bleeding and + easy bruising Physical Exam 2 Vital Signs (Past 24 Hours): Last Vital Signs Temp 36.8 C 04/11/18 07:12 Pulse 68 04/11/18 08:54 Resp 19 04/11/18 07:12 BP 110/63 04/11/18 07:12 Pulse Ox 96 04/11/18 07:12 Constitutional: + obese (chronically ill appearing), + frail appearing and + edematous; not ill appearing Eyes: PERRL, conjunctivae normal, anicteric sclerae ENMT: external ear and nose normal, oropharynx normal Neck: trachea midline, no thyromegaly Respiratory: normal respiratory effort, lungs clear to auscultation no respiratory distress Auscultation: + rales (at the bases bilaterally) Cardiovascular: RRR, no murmur, no edema (1+ tense edema b/l LE) Rate/ Rhythm: regular rate Vessels: + JVD (below the angle of the jaw while seated upright) Extremities: + edema (tense bilateral LE edema) Gastrointestinal (Abdomen): Inspection/Auscultation: + abdomen distended and normal bowel sounds Skin: no rashes, warm and dry Neurologic: moves all extremities Psychiatric: A+Ox3, euthymic affect Results & Data Laboratory Results Laboratory Results - last 24 hr 04/06/18 04/10/18 04/10/18 08:55 09:04 14:16 WBC RBC Hgb Hct MCV MCH MCHC RDW Std Deviation RDW Coeff of Marco Plt Count MPV Immature Gran % (Auto) Neut % (Auto) Lymph % (Auto) Rogers % (Auto) Eos % (Auto) Baso % (Auto) Immature Gran # (Auto) Neut # (Auto) Lymph # (Auto) Rogers # (Auto) Eos # (Auto) Baso # (Auto) Polychromasia Anisocytosis PT INR APTT PTT Ratio Sodium Potassium Chloride Carbon Dioxide Anion Gap BUN Creatinine Est Cr Clr Drug Dosing Est GFR ( Amer) Est GFR (Non-Af Amer) BUN/Creatinine Ratio Glucose POC Glucose 81 Calcium Phosphorus Albumin Blood Type A Positive Antibody Screen POSITIVE A Antibody Identification Anti-c Crossmatch See Detail See Detail 04/10/18 04/10/18 04/11/18 16:51 21:13 08:05 WBC 4.84 RBC 2.60 L Hgb 7.7 L Hct 24.8 L MCV 95.4 MCH 29.6 MCHC 31.0 L RDW Std Deviation 67.3 H RDW Coeff of Marco 19.6 H Plt Count 142 MPV 9.6 Immature Gran % (Auto) 0.4 Neut % (Auto) 66.5 Lymph % (Auto) 12.0 Rogers % (Auto) 14.9 Eos % (Auto) 5.6 Baso % (Auto) 0.6 Immature Gran # (Auto) 0.02 Neut # (Auto) 3.22 Lymph # (Auto) 0.58 L Rogers # (Auto) 0.72 H Eos # (Auto) 0.27 Baso # (Auto) 0.03 Polychromasia 1+ Anisocytosis Present PT INR APTT PTT Ratio Sodium Potassium Chloride Carbon Dioxide Anion Gap BUN Creatinine Est Cr Clr Drug Dosing Est GFR ( Amer) Est GFR (Non-Af Amer) BUN/Creatinine Ratio Glucose POC Glucose 143 H 122 H Calcium Phosphorus Albumin Blood Type Antibody Screen Antibody Identification Crossmatch 04/11/18 04/11/18 04/11/18 08:05 08:05 08:05 WBC RBC Hgb Hct MCV MCH MCHC RDW Std Deviation RDW Coeff of Marco Plt Count MPV Immature Gran % (Auto) Neut % (Auto) Lymph % (Auto) Rogers % (Auto) Eos % (Auto) Baso % (Auto) Immature Gran # (Auto) Neut # (Auto) Lymph # (Auto) Rogers # (Auto) Eos # (Auto) Baso # (Auto) Polychromasia Anisocytosis PT 17.2 H INR 1.8 H APTT 42.5 H PTT Ratio 1.6 Sodium 129 L Potassium 4.4 Chloride 95 L Carbon Dioxide 23 Anion Gap 11.0 BUN 29 H Creatinine 2.67 H D Est Cr Clr Drug Dosing 17.9 Est GFR ( Amer) 19.5 Est GFR (Non-Af Amer) 16.8 BUN/Creatinine Ratio 11.0 Glucose 88 POC Glucose Calcium 8.3 L Phosphorus 4.4 Albumin 2.6 L Blood Type Antibody Screen Antibody Identification Crossmatch 04/11/18 08:18 WBC RBC Hgb Hct MCV MCH MCHC RDW Std Deviation RDW Coeff of Marco Plt Count MPV Immature Gran % (Auto) Neut % (Auto) Lymph % (Auto) Rogers % (Auto) Eos % (Auto) Baso % (Auto) Immature Gran # (Auto) Neut # (Auto) Lymph # (Auto) Rogers # (Auto) Eos # (Auto) Baso # (Auto) Polychromasia Anisocytosis PT INR APTT PTT Ratio Sodium Potassium Chloride Carbon Dioxide Anion Gap BUN Creatinine Est Cr Clr Drug Dosing Est GFR ( Amer) Est GFR (Non-Af Amer) BUN/Creatinine Ratio Glucose POC Glucose 99 Calcium Phosphorus Albumin Blood Type Antibody Screen Antibody Identification Crossmatch _ (1) Anemia Anemia type: unspecified type Bone marrow failure anemia type: Chronic kidney disease stage: Folate deficiency anemia type: Hemolytic anemia type: Iron deficiency anemia type: Other causes of anemia: Vitamin B12 deficiency anemia type: Qualified Code(s): D64.9 - Anemia, unspecified
[2018-04-11] MEDS ORDERED: HEPARIN IV BOLUS 2,000 UNITS in SYRINGE 0 ML IV ONE (10:01)
[2018-04-11] MEDS ORDERED: HEPARIN IV BOLUS 3,000 UNITS in SYRINGE 0 ML IV ONE (11:00)
[2018-04-11] MEDS: HEPARIN SODIUM/DEXTROSE 25,000 UNITS/500 ML BAG IV SCH (11:25)
--- NOTE | 2018-04-11 14:45 | Hospitalist Progress Note ---
Date of Service April 11, 2018 Assessment & Plan (1) End stage renal disease: s/p permcath placement M/W/F HD schedule slowly removing volume - was massively volume-overloaded at time of presentation due to cirrhosis/right-sided heart failure, worsening renal disease , etc tolerating HD well, 2000mL removed 04/10 electrolytes stable will continue HD at [facility] and then outpatient at [facility] (2) H/O mitral valve replacement with mechanical valve: INR goal 2.5 to 3.5 INR still low at 1.8 today because Coumadin held when she was bleeding give 8mg PO again today (8mg given past two days), continue heparin drip (no bolus) check INR daily hopeful that INR will be 2.5 and heparin drip can stop (3) Hyponatremia: ongoing, multifactorial due to volume overload status (4) Acute on chronic right-sided congestive heart failure: volume status slowly improving with initiation of HD still with peripheral edema UF goal is 3L each time, tolerating well less dyspnea on exertion symtpoms, lungs are clear (5) Acute on chronic anemia: Hb upt to 7.7 after transfuion of one unit on 04/10 keep another unit on hold no further active bleeding (no bleeding from catheter) patient does admit to some dark stools will heme occult next stool repeat H/H tomorrow (6) Hypothyroidism: synthroid most recent TSH acceptable (7) Atrial fibrillation: paced on monitor takes chronic coumadin (8) Cirrhosis: contributes to volume overload status no evidence of any hepatic encephalopathy (9) Pleural effusion, right: drain pleurX catheter daily (10) COPD (chronic obstructive pulmonary disease): stable (11) UTI (urinary tract infection): completed seven days of Cefdinir (12) DVT prophylaxis: coumadin Subjective patient feeling fine today she says that she has had several BM the past two days she seems to think they were a little dark recently no abdominal pain, no nausea or vomiting, eating well c/o pain in left eye, has a small amount of discharge reviewed labs, Hb 7.7, not an appropriate response from 7.2 after one unit discussed with DR. Mercado Review of Systems All systems reviewed & are unremarkable except as noted in HPI & below Constitutional: + weakness Respiratory: + dyspnea on exertion Physical Exam 2 Vital Signs (Past 24 Hours): Last Vital Signs Temp 36.8 C 04/11/18 07:12 Pulse 68 04/11/18 08:54 Resp 19 04/11/18 07:12 BP 110/63 04/11/18 07:12 Pulse Ox 96 04/11/18 07:12 Constitutional: WD/WN, vitals as above Eyes: PERRL, conjunctivae normal, anicteric sclerae ENMT: external ear and nose normal, oropharynx normal Neck: trachea midline, no thyromegaly Respiratory: normal respiratory effort; no respiratory distress, no labored breathing and no cough Auscultation: no diminished lung sounds Cardiovascular: Rate/Rhythm: regular rate and regular rhythm Heart Sounds: normal S1 and normal S2 (artificial heart sound); no murmur Vessels: + JVD Extremities: + edema Chest (Breasts): Chest: + vascular access device or port (right tunneled catheter with dressing) Gastrointestinal (Abdomen): normal bowel sounds, soft, nontender, no hepatosplenomegaly Musculoskeletal: no cyanosis or clubbing, extremities motor strength 5/5 Skin: no rashes, warm and dry (chronic venous stasis changes in legs) Neurologic: patellar DTR's 2+ bilat, sensation intact and PERRL, EOMI, accommodation nl, no face palsy, no dysarthria Psychiatric: A+Ox3, euthymic affect Lymphatic: no cervical or axillary lymphadenopathy Results & Data Laboratory Results Laboratory Results - last 24 hr 04/10/18 04/10/18 04/10/18 09:04 16:51 21:13 WBC RBC Hgb Hct MCV MCH MCHC RDW Std Deviation RDW Coeff of Marco Plt Count MPV Immature Gran % (Auto) Neut % (Auto) Lymph % (Auto) [place] % (Auto) Eos % (Auto) Baso % (Auto) Immature Gran # (Auto) Neut # (Auto) Lymph # (Auto) [place] # (Auto) Eos # (Auto) Baso # (Auto) Polychromasia Anisocytosis PT INR APTT PTT Ratio Sodium Potassium Chloride Carbon Dioxide Anion Gap BUN Creatinine Est Cr Clr Drug Dosing Est GFR ( Amer) Est GFR (Non-Af Amer) BUN/Creatinine Ratio Glucose POC Glucose 143 H 122 H Calcium Phosphorus Albumin Blood Type A Positive Antibody Screen POSITIVE A Antibody Identification Anti-c Crossmatch See Detail 04/11/18 04/11/18 04/11/18 08:05 08:05 08:05 WBC 4.84 RBC 2.60 L Hgb 7.7 L Hct 24.8 L MCV 95.4 MCH 29.6 MCHC 31.0 L RDW Std Deviation 67.3 H RDW Coeff of Marco 19.6 H Plt Count 142 MPV 9.6 Immature Gran % (Auto) 0.4 Neut % (Auto) 66.5 Lymph % (Auto) 12.0 [place] % (Auto) 14.9 Eos % (Auto) 5.6 Baso % (Auto) 0.6 Immature Gran # (Auto) 0.02 Neut # (Auto) 3.22 Lymph # (Auto) 0.58 L [place] # (Auto) 0.72 H Eos # (Auto) 0.27 Baso # (Auto) 0.03 Polychromasia 1+ Anisocytosis Present PT 17.2 H INR 1.8 H APTT PTT Ratio Sodium 129 L Potassium 4.4 Chloride 95 L Carbon Dioxide 23 Anion Gap 11.0 BUN 29 H Creatinine 2.67 H D Est Cr Clr Drug Dosing 17.9 Est GFR ( Amer) 19.5 Est GFR (Non-Af Amer) 16.8 BUN/Creatinine Ratio 11.0 Glucose 88 POC Glucose Calcium 8.3 L Phosphorus 4.4 Albumin 2.6 L Blood Type Antibody Screen Antibody Identification Crossmatch 04/11/18 04/11/18 08:05 08:18 WBC RBC Hgb Hct MCV MCH MCHC RDW Std Deviation RDW Coeff of Marco Plt Count MPV Immature Gran % (Auto) Neut % (Auto) Lymph % (Auto) [place] % (Auto) Eos % (Auto) Baso % (Auto) Immature Gran # (Auto) Neut # (Auto) Lymph # (Auto) [place] # (Auto) Eos # (Auto) Baso # (Auto) Polychromasia Anisocytosis PT INR APTT 42.5 H PTT Ratio 1.6 Sodium Potassium Chloride Carbon Dioxide Anion Gap BUN Creatinine Est Cr Clr Drug Dosing Est GFR ( Amer) Est GFR (Non-Af Amer) BUN/Creatinine Ratio Glucose POC Glucose 99 Calcium Phosphorus Albumin Blood Type Antibody Screen Antibody Identification Crossmatch Medications Administered Current Inpatient Medications Acetaminophen (Tylenol) 650 mg PO Q4H PRN PRN Reason: pain/fever Stop: 04/24/18 16:17 Last Admin: 04/10/18 09:04 Dose: 650 mg Calcitriol (Racaltrol) 0.25 mcg PO MoWeFr@0900 [facility] Stop: 04/29/18 08:59 Last Admin: 04/10/18 08:38 Dose: 0.25 mcg Cetirizine HCl (Zyrtec) 10 mg PO BID [facility] Stop: 05/10/18 20:59 Last Admin: 04/11/18 08:53 Dose: 10 mg Dextrose (Dextrose 50%) 25 - 50 ml IV UD PRN; Protocol PRN Reason: Hypoglycemia Protocol Stop: 04/24/18 16:17 Diazepam (Valium) 5 mg PO BID PRN PRN Reason: Anxiety Stop: 04/24/18 16:17 Last Admin: 04/10/18 20:54 Dose: 5 mg Diclofenac Sodium (Voltaren 1% Top) 1 appln EXT QID [facility] Stop: 04/25/18 20:59 Last Admin: 04/11/18 13:22 Dose: Not Given Digoxin (Lanoxin) 0.125 mg PO DAILY [facility] Stop: 04/25/18 08:59 Last Admin: 04/11/18 08:54 Dose: 0.125 mg Diphenhydramine HCl (Benadryl) 25 mg PO Q6 PRN PRN Reason: Itching Stop: 05/06/18 10:22 Last Admin: 04/11/18 06:07 Dose: 25 mg Ezetimibe (Zetia) 10 mg PO HS [facility] Stop: 04/24/18 20:59 Last Admin: 04/10/18 20:48 Dose: 10 mg Glucagon (Glucagen) 1 mg SQ UD PRN; Protocol PRN Reason: Hypoglycemia Protocol Stop: 04/24/18 16:17 Glucose (Glucose 40%) 15 - 30 gm PO UD PRN; Protocol PRN Reason: Hypoglycemia Protocol Stop: 04/24/18 16:17 Glucose (Dex4 Glucose) 4 - 8 tabs PO UD PRN; Protocol PRN Reason: Hypoglycemia Protocol Stop: 04/24/18 16:17 Sodium Chloride (Nss 250ml) 250 mls @ 15 mls/hr IV .[id number] PRN PRN Reason: For Transfusion Stop: 04/27/18 00:54 Sodium Chloride (Nss 250ml) 250 mls @ 15 mls/hr IV .[id number] PRN PRN Reason: For Transfusion Stop: 05/03/18 07:53 Heparin Sodium/Dextrose (Heparin Sodium/Dextrose) 25,000 units in 500 mls @ 19 mls/hr IV .Q24H [facility]; Protocol Stop: 05/09/18 10:29 Last Admin: 04/11/18 11:25 Dose: 950 units/hr, 19 mls/hr Sodium Chloride (Nss 250ml) 250 mls @ 15 mls/hr IV .[id number] PRN PRN Reason: For Transfusion Stop: 05/10/18 12:15 Insulin Aspart (Novolog Flexpen) 0 units SC ACHS [facility] Stop: 04/24/18 16:29 Last Admin: 04/11/18 13:21 Dose: 4 units Insulin Glargine (Lantus) 12 units SC BID [facility] Stop: 05/04/18 08:59 Last Admin: 04/11/18 08:49 Dose: 12 units Levothyroxine Sodium (Synthroid) 175 mcg PO DAILYBB [facility] Stop: 04/25/18 06:29 Last Admin: 04/11/18 05:31 Dose: 175 mcg Metoprolol Succinate (Toprol Xl) 100 mg PO DAILY [facility] Stop: 04/25/18 08:59 Last Admin: 04/11/18 08:54 Dose: 100 mg Miscellaneous (Carbohydrates For Hypoglycemia) 15 - 30 gm PO UD PRN PRN Reason: Hypoglycemia Treatment Stop: 04/24/18 16:17 Last Admin: 04/03/18 14:11 Dose: 15 gm Miscellaneous (Order Awaiting Action) 1 ea N/A QS [facility] Stop: 04/25/18 00:00 Last Admin: 04/11/18 08:50 Dose: Not Given Multi-Ingredient Cream (Hydrocerin) 1 appln EXT Q1H PRN PRN Reason: Dryness Stop: 05/05/18 16:39 Last Admin: 04/10/18 08:42 Dose: 1 appln Neomycin/Polymyxin/Hydrocortisone (Cortisporin) 2 drops OP Q3H [facility] Stop: 04/29/18 21:59 Last Admin: 04/11/18 13:21 Dose: Not Given Nystatin (Mycostatin) 1 appln EXT QID [facility] Stop: 04/28/18 12:59 Last Admin: 04/11/18 13:22 Dose: 1 appln Ondansetron HCl (Zofran) 4 mg IV Q6H PRN PRN Reason: Nausea Stop: 04/24/18 16:17 Oxycodone HCl (Roxicodone Immediate Rel) 2.5 mg PO Q8H PRN PRN Reason: Pain Stop: 04/11/18 22:03 Last Admin: 04/07/18 00:08 Dose: 2.5 mg Pantoprazole Sodium (Protonix) 40 mg PO QAM [facility] Stop: 04/25/18 08:59 Last Admin: 04/11/18 08:54 Dose: 40 mg Polyethylene Glycol (Miralax Powder Packet) 17 gm PO DAILY PRN PRN Reason: Constipation Stop: 04/24/18 16:17 Ranitidine HCl (Zantac) 150 mg PO QAM [facility] Stop: 05/04/18 08:59 Last Admin: 04/11/18 08:54 Dose: 150 mg Saccharomyces Boulardii (Florastor) 250 mg PO DAILY [facility] Stop: 04/25/18 08:59 Last Admin: 04/11/18 08:53 Dose: 250 mg Triamcinolone Acetonide (Kenalog 0.1%) 1 appln EXT TID [facility] Stop: 05/05/18 16:44 Last Admin: 04/11/18 13:22 Dose: Not Given Vitamin B Complex/Folic Acid (Nephrocaps) 1 cap PO DAILY [facility] Stop: 04/29/18 08:59 Last Admin: 04/11/18 08:54 Dose: 1 cap Warfarin Sodium (Coumadin) 4 mg PO DAILY@1600 [facility] Stop: 05/07/18 15:59 Last Admin: 04/10/18 16:39 Dose: 4 mg _ (1) UTI (urinary tract infection) Encounter type: Hematuria presence: without hematuria Indwelling urinary catheter type: Urinary tract infection type: acute cystitis Qualified Code(s) : N30.00 - Acute cystitis without hematuria (2) Atrial fibrillation Atrial fibrillation type: chronic Qualified Code(s): I48.2 - Chronic atrial fibrillation (3) Hypothyroidism Hypothyroidism type: acquired Qualified Code(s): E03.9 - Hypothyroidism, unspecified (4) Cirrhosis Ascites presence: Hepatic cirrhosis type: other cirrhosis Qualified Code(s) : K74.69 - Other cirrhosis of liver (5) COPD (chronic obstructive pulmonary disease) COPD type: unspecified COPD Chronic bronchitis type: Emphysema type: Qualified Code(s): J44.9 - Chronic obstructive pulmonary disease, unspecified
[2018-04-11] MEDS: WARFARIN SOD 4 MG TAB PO SCH (16:11)
[2018-04-11] MEDS ORDERED: Nursing to Pharmacy Communication ONE (16:25)
[2018-04-11] MEDS ORDERED: WARFARIN SOD 4 MG TAB PO ONE (17:00)
[2018-04-11 17:38] LABS: Hematocrit (blood only) 25.5 % (37-47); Mean Corpuscular Hgb Conc 31.4 g/dL (32-36); Mean Corpuscular Volume 95.1 fL (80-100); Mean Platelet Volume 9.4 fL (7.4-10.4); Platelet Count 141 K/uL (130-400); RDW Coefficient of Variation 19.5 % (11.5-14.5); RDW Standard Deviation 66.2 fL (36.4-46.3); Red Blood Count 2.68 M/uL (4.2-5.4); White Blood Count 5.13 K/uL (4.8-10.8)
[2018-04-11 17:54] LABS: Partial Thromboplastin Ratio 3.2
[2018-04-11] MEDS: EZETIMIBE 10 MG TABLET PO SCH (21:17)
[2018-04-11] MEDS: diazePAM 5 MG TABLET PO PRN (22:35)
[2018-04-12 00:40] LABS: Partial Thromboplastin Ratio 1.7; Partial Thromboplastin Time 43.4 Seconds (21.0-31.0)
[2018-04-12] MEDS: TROSPIUM ~ ORDER AWAITING ACTION SCH ×4 (01:31→23:17)
[2018-04-12] MEDS: NEOMYCIN/POLYMYXIN/HYDROCORT OPH SUSP 7.5 ML BTL OP SCH ×10 (02:17→23:18)
[2018-04-12] MEDS: LEVOTHYROXINE SODIUM 175 MCG TABLET PO SCH (06:05)
[2018-04-12] MEDS ORDERED: HEPARIN IV BOLUS 3,000 UNITS in SYRINGE 0 ML IV ONE ×2 (06:15→12:47)
[2018-04-12] MEDS: METOPROLOL SUCC 50MG EXT REL TAB PO SCH (07:29)
[2018-04-12] MEDS: DIGOXIN 0.125 MG TAB PO SCH (07:29)
[2018-04-12] MEDS: DICLOFENAC SOD 1% GEL 100 GM TUBE EXT SCH ×4 (07:29→22:07)
[2018-04-12] MEDS: SACCHAROMYCES BOULARDII 250 MG CAP PO SCH (07:29)
[2018-04-12] MEDS: TRIAMCINOLONE ACET 0.1% CR 15 GM TUBE EXT SCH ×3 (07:29→21:44)
[2018-04-12] MEDS: NYSTATIN POWDER 15GM BTL EXT SCH ×4 (07:29→22:07)
[2018-04-12] MEDS: NEPHROCAPS PO SCH (07:29)
[2018-04-12] MEDS: PANTOprazole 40 MG TAB PO SCH (07:29)
[2018-04-12] MEDS: CETIRIZINE HCL 10 MG TABLET PO SCH ×2 (07:30→22:08)
[2018-04-12 08:37] LABS: Hematocrit (blood only) 24.9 % (37-47); Hemoglobin 7.8 g/dL (12.0-16.0)
[2018-04-12 08:45] LABS: INR 2.9 (0.9-1.1); Prothrombin Time 27.3 Seconds (9.0-12.0)
[2018-04-12] MEDS: INSULIN ASPART 100 UNITS/ML 3 ML PEN SC SCH ×4 (09:02→22:04)
[2018-04-12] MEDS: INSULIN GLARGINE 100 UNIT/ML VIAL SC SCH ×2 (09:03→21:51)
[2018-04-12 09:10] LABS: BUN Creatinine Ratio 13.6 (10-20); Calcium 8.4 mg/dl (8.5-10.1); Creatinine Clr Calc Pharmacy 15.8 ml/min; Est GFR (African American) 16.3; Est GFR (Non-African American) 14.1; Potassium 4.6 mmol/L (3.5-5.1)
--- NOTE | 2018-04-12 10:54 | Nephrology Progress Note ---
Date of Service April 12, 2018 Assessment & Plan (1) End stage renal disease: Mrs. Morales was admitted to [facility] for evaluation of weakness and tense LE swelling limiting her ability to ambulate. She has severe pulmonary HTN resulting in R heart failure and cardiac cirrhosis. She has a chronic R Pleur- x catheter in place. Diuretic therapy was met with worsening renal insufficiency and progressive azotemia. HD started on to aid in controlling volume status. -- HD q MWF while inpatient. Plan to start TTS schedule at discharge. -- Metabolic profile acceptable, free water restriction established for persistent hyponatremia. -- Crystal is tolerating HD well. No additional bleeding has been noted from TDC exit site. -- BP, electrolytes and volume status are currently appropriate. -- Medications are appropriately dosed for kidney function. (2) Anemia: Medical hx includes chronic anemia requiring IV iron and BINH therapy. -- Additional 1 u PRBC provided 04/10/18. -- Repeat iron profile requested with AM labs. -- Stool hemoccult pending. -- Epogen 02409 units with HD on 04/08/18. -- Repeat H/H tomorrow. (3) Chronic kidney disease-mineral and bone disorder: -- On Calcitriol 0.25 mcg 3 times a week and renal vitamin daily (4) Nutrition disorder: -- Increased dietary protein intake encouraged. (5) Discharge planning issues: -- Plan transfer to [facility] w/ outpatient HD at [facility]. Potential discharge tomorrow and start HD as outpatient Friday. Subjective Mrs. Morales was seen in her hospital room this morning. She was sitting comfortably in a bedside chair. Activity tolerance remains poor. She denies any evidence of bleeding. However, she does note that her stool has been dark in color. No bleeding noted from THC site. She denies pain. Respiratory: no cough and no dyspnea Cardiovascular: + edema (improving); no chest pain, no dyspnea at rest and no palpitations Hematologic / Lymphatic: + easy bleeding and + easy bruising Physical Exam 2 Vital Signs (Past 24 Hours): Last Vital Signs Temp 36.4 C L 04/12/18 08:48 Pulse 61 04/12/18 08:48 Resp 17 04/12/18 08:48 BP 128/56 L 04/12/18 08:48 Pulse Ox 95 04/12/18 08:48 Constitutional: + frail appearing and + edematous Eyes: PERRL, conjunctivae normal, anicteric sclerae ENMT: external ear and nose normal, oropharynx normal Neck: trachea midline, no thyromegaly Respiratory: normal respiratory effort, lungs clear to auscultation no respiratory distress Cardiovascular: RRR, no murmur, no edema (1+ tense edema b/l LE) Extremities: + edema (tense bilateral LE edema) Gastrointestinal (Abdomen): Inspection/Auscultation: + abdomen distended and normal bowel sounds Musculoskeletal: Extremities: no cyanosis, no clubbing and no petechiae Skin: no rashes, warm and dry Neurologic: moves all extremities Psychiatric: A+Ox3, euthymic affect Results & Data Laboratory Results Laboratory Results - last 24 hr 04/11/18 04/11/18 04/11/18 12:13 17:09 17:28 WBC RBC Hgb Hct MCV MCH MCHC RDW Std Deviation RDW Coeff of Marco Plt Count MPV PT INR APTT 83.0 H* PTT Ratio 3.2 Sodium Potassium Chloride Carbon Dioxide Anion Gap BUN Creatinine Est Cr Clr Drug Dosing Est GFR ( Amer) Est GFR (Non-Af Amer) BUN/Creatinine Ratio Glucose POC Glucose 156 H 102 H Calcium Stool Occult Bld Scrn 04/11/18 04/11/18 04/11/18 17:28 20:01 Unknown WBC 5.13 RBC 2.68 L Hgb 8.0 L Hct 25.5 L MCV 95.1 MCH 29.9 MCHC 31.4 L RDW Std Deviation 66.2 H RDW Coeff of Marco 19.5 H Plt Count 141 MPV 9.4 PT INR APTT PTT Ratio Sodium Potassium Chloride Carbon Dioxide Anion Gap BUN Creatinine Est Cr Clr Drug Dosing Est GFR ( Amer) Est GFR (Non-Af Amer) BUN/Creatinine Ratio Glucose POC Glucose 134 H Calcium Stool Occult Bld Scrn Positive H 04/12/18 04/12/18 04/12/18 00:16 08:14 08:14 WBC RBC Hgb Hct MCV MCH MCHC RDW Std Deviation RDW Coeff of Marco Plt Count MPV PT 27.3 H INR 2.9 H APTT 43.4 H PTT Ratio 1.7 Sodium 127 L Potassium 4.6 Chloride 92 L Carbon Dioxide 25 Anion Gap 10.0 BUN 42 H Creatinine 3.09 H D Est Cr Clr Drug Dosing 15.8 Est GFR ( Amer) 16.3 Est GFR (Non-Af Amer) 14.1 BUN/Creatinine Ratio 13.6 Glucose 95 POC Glucose Calcium 8.4 L Stool Occult Bld Scrn 04/12/18 04/12/18 08:14 08:20 WBC RBC Hgb 7.8 L Hct 24.9 L MCV MCH MCHC RDW Std Deviation RDW Coeff of Marco Plt Count MPV PT INR APTT PTT Ratio Sodium Potassium Chloride Carbon Dioxide Anion Gap BUN Creatinine Est Cr Clr Drug Dosing Est GFR ( Amer) Est GFR (Non-Af Amer) BUN/Creatinine Ratio Glucose POC Glucose 108 H Calcium Stool Occult Bld Scrn _ (1) Anemia Anemia type: unspecified type Bone marrow failure anemia type: Chronic kidney disease stage: Folate deficiency anemia type: Hemolytic anemia type: Iron deficiency anemia type: Other causes of anemia: Vitamin B12 deficiency anemia type: Qualified Code(s): D64.9 - Anemia, unspecified
[2018-04-12 12:35] LABS: Partial Thromboplastin Ratio 1.7; Partial Thromboplastin Time 44.1 Seconds (21.0-31.0)
[2018-04-12] MEDS: HEPARIN SODIUM/DEXTROSE 25,000 UNITS/500 ML BAG IV SCH (12:58)
[2018-04-12] MEDS: WARFARIN SOD 4 MG TAB PO SCH (15:30)
--- NOTE | 2018-04-12 15:33 | Hospitalist Progress Note ---
Date of Service April 12, 2018 Assessment & Plan (1) End stage renal disease: s/p permcath placement M/W/F HD schedule slowly removing volume - was massively volume-overloaded at time of presentation due to cirrhosis/right-sided heart failure, worsening renal disease , etc tolerating HD well, 2000mL removed 04/10 electrolytes stable will continue HD at [facility] and then outpatient at [facility] (2) H/O mitral valve replacement with mechanical valve: INR goal 2.5 to 3.5 INR 2.9 today, stop heparin drip received 4mg of Coumadin today, ordered tomorrow's dose to be held (3) Hyponatremia: ongoing, multifactorial due to volume overload status (4) Acute on chronic right-sided congestive heart failure: volume status slowly improving with initiation of HD still with peripheral edema UF goal is 3L each time, tolerating well less dyspnea on exertion symtpoms, lungs are clear (5) Acute on chronic anemia: Hb 7.8 after transfusion of one unit on 04/10 keep another unit on hold no further active bleeding (no bleeding from catheter) patient does admit to some dark stools heme occult positive patient admits to intermittent dark stools evaluated by GI in 2013 for anemia, had normal EGD and colonoscopy at that time [facility], unsure they would want to scope her given comorbidities also, just got patient therapeutic again on Coumadin for her mechanical valve will hold Coumadin starting tomorrow repeat H/H tomorrow, unit of PRBC on hold (6) Hypothyroidism: synthroid most recent TSH acceptable (7) Atrial fibrillation: paced on monitor takes chronic coumadin (8) Cirrhosis: contributes to volume overload status no evidence of any hepatic encephalopathy (9) Pleural effusion, right: drain pleurX catheter daily (10) COPD (chronic obstructive pulmonary disease): stable (11) UTI (urinary tract infection): completed seven days of Cefdinir (12) DVT prophylaxis: coumadin Subjective reviewed labs, Hb down slightly to 7.8, heme occult positive for blood reviewed prior records, evaluated by [facility] in 2013 for anemia, EGD and colonoscopy normal she does have a remote history of PUD INR 2.9 today, will hold Coumadin and stop heparin drip patient upset that her brother in law last night, she has to call her and tell him otherwise her clinical symptoms are stable, she has mild MYLES, no chest pain eating well, moving bowels with some intermittent dark stools discussed that she tested heme positive, she said she had hemorrhoids in the past Review of Systems All systems reviewed & are unremarkable except as noted in HPI & below Physical Exam 2 Vital Signs (Past 24 Hours): Last Vital Signs Temp 36.4 C L 04/12/18 08:48 Pulse 61 04/12/18 08:48 Resp 17 04/12/18 08:48 BP 128/56 L 04/12/18 08:48 Pulse Ox 95 04/12/18 08:48 Constitutional: WD/WN, vitals as above Eyes: PERRL, conjunctivae normal, anicteric sclerae ENMT: external ear and nose normal, oropharynx normal Neck: trachea midline, no thyromegaly Respiratory: normal respiratory effort; no respiratory distress, no labored breathing and no cough Auscultation: + rales (bases); no diminished lung sounds Cardiovascular: Rate/Rhythm: regular rate and regular rhythm Heart Sounds: normal S1 and normal S2 (artificial heart sound); no murmur Vessels: + JVD Extremities: + edema Chest (Breasts): Chest: + vascular access device or port (right tunneled catheter with dressing) Gastrointestinal (Abdomen): normal bowel sounds, soft, nontender, no hepatosplenomegaly Musculoskeletal: no cyanosis or clubbing, extremities motor strength 5/5 Skin: no rashes, warm and dry (chronic venous stasis changes in legs) Neurologic: patellar DTR's 2+ bilat, sensation intact and PERRL, EOMI, accommodation nl, no face palsy, no dysarthria Psychiatric: A+Ox3, euthymic affect Lymphatic: no cervical or axillary lymphadenopathy Results & Data Laboratory Results Laboratory Results - last 24 hr 04/11/18 04/11/18 04/11/18 17:09 17:28 17:28 WBC 5.13 RBC 2.68 L Hgb 8.0 L Hct 25.5 L MCV 95.1 MCH 29.9 MCHC 31.4 L RDW Std Deviation 66.2 H RDW Coeff of Marco 19.5 H Plt Count 141 MPV 9.4 PT INR APTT 83.0 H* PTT Ratio 3.2 Sodium Potassium Chloride Carbon Dioxide Anion Gap BUN Creatinine Est Cr Clr Drug Dosing Est GFR ( Amer) Est GFR (Non-Af Amer) BUN/Creatinine Ratio Glucose POC Glucose 102 H Calcium Stool Occult Bld Scrn 04/11/18 04/11/18 04/12/18 20:01 Unknown 00:16 WBC RBC Hgb Hct MCV MCH MCHC RDW Std Deviation RDW Coeff of Marco Plt Count MPV PT INR APTT 43.4 H PTT Ratio 1.7 Sodium Potassium Chloride Carbon Dioxide Anion Gap BUN Creatinine Est Cr Clr Drug Dosing Est GFR ( Amer) Est GFR (Non-Af Amer) BUN/Creatinine Ratio Glucose POC Glucose 134 H Calcium Stool Occult Bld Scrn Positive H 04/12/18 04/12/18 04/12/18 08:14 08:14 08:14 WBC RBC Hgb 7.8 L Hct 24.9 L MCV MCH MCHC RDW Std Deviation RDW Coeff of Marco Plt Count MPV PT 27.3 H INR 2.9 H APTT PTT Ratio Sodium 127 L Potassium 4.6 Chloride 92 L Carbon Dioxide 25 Anion Gap 10.0 BUN 42 H Creatinine 3.09 H D Est Cr Clr Drug Dosing 15.8 Est GFR ( Amer) 16.3 Est GFR (Non-Af Amer) 14.1 BUN/Creatinine Ratio 13.6 Glucose 95 POC Glucose Calcium 8.4 L Stool Occult Bld Scrn 04/12/18 04/12/18 04/12/18 08:20 12:07 12:33 WBC RBC Hgb Hct MCV MCH MCHC RDW Std Deviation RDW Coeff of Marco Plt Count MPV PT INR APTT 44.1 H PTT Ratio 1.7 Sodium Potassium Chloride Carbon Dioxide Anion Gap BUN Creatinine Est Cr Clr Drug Dosing Est GFR ( Amer) Est GFR (Non-Af Amer) BUN/Creatinine Ratio Glucose POC Glucose 108 H 129 H Calcium Stool Occult Bld Scrn Medications Administered Current Inpatient Medications Acetaminophen (Tylenol) 650 mg PO Q4H PRN PRN Reason: pain/fever Stop: 04/24/18 16:17 Last Admin: 04/10/18 09:04 Dose: 650 mg Calcitriol (Racaltrol) 0.25 mcg PO MoWeFr@0900 NAY Stop: 04/29/18 08:59 Last Admin: 04/10/18 08:38 Dose: 0.25 mcg Cetirizine HCl (Zyrtec) 10 mg PO BID NAY Stop: 05/10/18 20:59 Last Admin: 04/12/18 07:30 Dose: 10 mg Dextrose (Dextrose 50%) 25 - 50 ml IV UD PRN; Protocol PRN Reason: Hypoglycemia Protocol Stop: 04/24/18 16:17 Diazepam (Valium) 5 mg PO BID PRN PRN Reason: Anxiety Stop: 04/24/18 16:17 Last Admin: 04/11/18 22:35 Dose: 5 mg Diclofenac Sodium (Voltaren 1% Top) 1 appln EXT QID NAY Stop: 04/25/18 20:59 Last Admin: 04/12/18 12:36 Dose: Not Given Digoxin (Lanoxin) 0.125 mg PO DAILY NAY Stop: 04/25/18 08:59 Last Admin: 04/12/18 07:29 Dose: 0.125 mg Diphenhydramine HCl (Benadryl) 25 mg PO Q6 PRN PRN Reason: Itching Stop: 05/06/18 10:22 Last Admin: 04/11/18 21:57 Dose: 25 mg Ezetimibe (Zetia) 10 mg PO HS [facility] Stop: 04/24/18 20:59 Last Admin: 04/11/18 21:17 Dose: 10 mg Glucagon (Glucagen) 1 mg SQ UD PRN; Protocol PRN Reason: Hypoglycemia Protocol Stop: 04/24/18 16:17 Glucose (Glucose 40%) 15 - 30 gm PO UD PRN; Protocol PRN Reason: Hypoglycemia Protocol Stop: 04/24/18 16:17 Glucose (Dex4 Glucose) 4 - 8 tabs PO UD PRN; Protocol PRN Reason: Hypoglycemia Protocol Stop: 04/24/18 16:17 Sodium Chloride (Nss 250ml) 250 mls @ 15 mls/hr IV .[id number] PRN PRN Reason: For Transfusion Stop: 04/27/18 00:54 Sodium Chloride (Nss 250ml) 250 mls @ 15 mls/hr IV .[id number] PRN PRN Reason: For Transfusion Stop: 05/03/18 07:53 Sodium Chloride (Nss 250ml) 250 mls @ 15 mls/hr IV .[id number] PRN PRN Reason: For Transfusion Stop: 05/10/18 12:15 Insulin Aspart (Novolog Flexpen) 0 units SC ACHS NAY Stop: 04/24/18 16:29 Last Admin: 04/12/18 12:35 Dose: 4 units Insulin Glargine (Lantus) 12 units SC BID [facility] Stop: 05/04/18 08:59 Last Admin: 04/12/18 09:03 Dose: 12 units Levothyroxine Sodium (Synthroid) 175 mcg PO DAILYBB [facility] Stop: 04/25/18 06:29 Last Admin: 04/12/18 06:05 Dose: 175 mcg Metoprolol Succinate (Toprol Xl) 100 mg PO DAILY [facility] Stop: 04/25/18 08:59 Last Admin: 04/12/18 07:29 Dose: 100 mg Miscellaneous (Carbohydrates For Hypoglycemia) 15 - 30 gm PO UD PRN PRN Reason: Hypoglycemia Treatment Stop: 04/24/18 16:17 Last Admin: 04/03/18 14:11 Dose: 15 gm Miscellaneous (Order Awaiting Action) 1 ea N/A QS [facility] Stop: 04/25/18 00:00 Last Admin: 04/12/18 14:56 Dose: Not Given Multi-Ingredient Cream (Hydrocerin) 1 appln EXT Q1H PRN PRN Reason: Dryness Stop: 05/05/18 16:39 Last Admin: 04/10/18 08:42 Dose: 1 appln Neomycin/Polymyxin/Hydrocortisone (Cortisporin) 2 drops OP Q3H [facility] Stop: 04/29/18 21:59 Last Admin: 04/12/18 14:56 Dose: Not Given Nystatin (Mycostatin) 1 appln EXT QID [facility] Stop: 04/28/18 12:59 Last Admin: 04/12/18 12:36 Dose: Not Given Ondansetron HCl (Zofran) 4 mg IV Q6H PRN PRN Reason: Nausea Stop: 04/24/18 16:17 Pantoprazole Sodium (Protonix) 40 mg PO QAM [facility] Stop: 04/25/18 08:59 Last Admin: 04/12/18 07:29 Dose: 40 mg Polyethylene Glycol (Miralax Powder Packet) 17 gm PO DAILY PRN PRN Reason: Constipation Stop: 04/24/18 16:17 Ranitidine HCl (Zantac) 150 mg PO QAM [facility] Stop: 05/04/18 08:59 Last Admin: 04/12/18 07:29 Dose: 150 mg Saccharomyces Boulardii (Florastor) 250 mg PO DAILY [facility] Stop: 04/25/18 08:59 Last Admin: 04/12/18 07:29 Dose: 250 mg Triamcinolone Acetonide (Kenalog 0.1%) 1 appln EXT TID [facility] Stop: 05/05/18 16:44 Last Admin: 04/12/18 12:36 Dose: Not Given Vitamin B Complex/Folic Acid (Nephrocaps) 1 cap PO DAILY [facility] Stop: 04/29/18 08:59 Last Admin: 04/12/18 07:29 Dose: 1 cap Warfarin Sodium (Coumadin) 4 mg PO DAILY@1600 [facility] Stop: 05/07/18 15:59 Last Admin: 04/12/18 15:30 Dose: 4 mg _ (1) UTI (urinary tract infection) Encounter type: Hematuria presence: without hematuria Indwelling urinary catheter type: Urinary tract infection type: acute cystitis Qualified Code(s) : N30.00 - Acute cystitis without hematuria (2) Atrial fibrillation Atrial fibrillation type: chronic Qualified Code(s): I48.2 - Chronic atrial fibrillation (3) Hypothyroidism Hypothyroidism type: acquired Qualified Code(s): E03.9 - Hypothyroidism, unspecified (4) Cirrhosis Ascites presence: Hepatic cirrhosis type: other cirrhosis Qualified Code(s) : K74.69 - Other cirrhosis of liver (5) COPD (chronic obstructive pulmonary disease) COPD type: unspecified COPD Chronic bronchitis type: Emphysema type: Qualified Code(s): J44.9 - Chronic obstructive pulmonary disease, unspecified
[2018-04-12] MEDS: EUCERIN CR 120 GM JAR EXT PRN (21:45)
[2018-04-12] MEDS: diazePAM 5 MG TABLET PO PRN (22:03)
[2018-04-12] MEDS: EZETIMIBE 10 MG TABLET PO SCH (22:09)
[2018-04-12] MEDS ORDERED: SODIUM CHLORIDE 0.9% 1000ML 1,000 ML IV PRN (23:13)
[2018-04-13] MEDS: NEOMYCIN/POLYMYXIN/HYDROCORT OPH SUSP 7.5 ML BTL OP SCH ×5 (04:42→18:57)
[2018-04-13] MEDS: ACETAMINOPHEN 325 MG TAB PO PRN ×2 (04:43→06:16)
[2018-04-13 05:52] LABS: Hematocrit (blood only) 23.7 % (37-47); Hemoglobin 7.5 g/dL (12.0-16.0)
[2018-04-13 06:02] LABS: Prothrombin Time 28.6 Seconds (9.0-12.0)
[2018-04-13] MEDS: LEVOTHYROXINE SODIUM 175 MCG TABLET PO SCH (06:22)
[2018-04-13 06:24] LABS: BUN Creatinine Ratio 15.9 (10-20); Calcium 8.3 mg/dl (8.5-10.1); Creatinine Clr Calc Pharmacy 13.9 ml/min; Est GFR (African American) 13.8; Est GFR (Non-African American) 11.9; Potassium 5.2 mmol/L (3.5-5.1)
[2018-04-13] MEDS: TROSPIUM ~ ORDER AWAITING ACTION SCH ×3 (07:56→23:04)
[2018-04-13] MEDS: DICLOFENAC SOD 1% GEL 100 GM TUBE EXT SCH ×4 (08:23→22:09)
[2018-04-13] MEDS: TRIAMCINOLONE ACET 0.1% CR 15 GM TUBE EXT SCH ×3 (08:23→22:08)
[2018-04-13] MEDS: INSULIN ASPART 100 UNITS/ML 3 ML PEN SC SCH ×4 (08:26→22:08)
[2018-04-13] MEDS: INSULIN GLARGINE 100 UNIT/ML VIAL SC SCH ×2 (08:26→22:35)
[2018-04-13] MEDS: NYSTATIN POWDER 15GM BTL EXT SCH ×4 (08:27→22:08)
[2018-04-13] MEDS: CETIRIZINE HCL 10 MG TABLET PO SCH ×2 (08:27→22:10)
[2018-04-13] MEDS: SACCHAROMYCES BOULARDII 250 MG CAP PO SCH (08:27)
[2018-04-13] MEDS: PANTOprazole 40 MG TAB PO SCH (08:27)
[2018-04-13] MEDS: CALCITRIOL 0.25 MCG CAPSULE PO SCH (08:27)
[2018-04-13] MEDS: NEPHROCAPS PO SCH (08:27)
--- NOTE | 2018-04-13 10:53 | Gastrointestinal Consultation ---
Date of Consultation April 13, 2018 Assessment & Plan (1) Acute on chronic anemia: 77 year old female admitted w/ abnormal labs and fluid overload - GI asked to evaluate of acute on chronic anemia. Pt does note intermittent self- limiting black stool but is currently have brown stools. DDX were discussed at length, her anemia is likely multi-factorial secondary to CKD, chronic GI blood loss, cirrhosis. Endoscopic evaluation was discussed, offered and suggested to the patient for evaluation of her anemia. She does have history of biopsy proven Crohn's disease on colonoscopy in 2011 and is overdue for colon cancer screening. She is not agreeable to undergo EGD/Colon or VCE as either an inpatient or outpatient. Discussed liver imaging as well - she is not interested in GI follow up at this point in time - Endoscopy was recommended, she deferred this - Would recommend PO PPI daily - Trend H&H - Transfuse PRN - In regards to her right sided heart failure, pleural effusion and suspected cardiac cirrhosis would recommend the following per her OP PCP as she does not wish to establish with GI - MELD labs every 3-6 months - RUQ US w/ AFP for HCC screening every 6 months - EGD for variceal screening - pt deferred this - Screen for Hep A/B - would offer immunization if not immune - Low NA diet, less than 2G daily - If using tylenol, less than 2G daily - No ETOH - GI to sign off as pt is not agreeable to endoscopic evaluation. Thank you for allowing us to participate in the care of this patient. Please call with any acute changes, questions or concerns. Please see addendum below with additional recommendation from my supervising physician. Present on Admission?: Yes Supervising Physician Co-Signing Physician Notes I performed a history and physical examination of the patient, including specifically on physical exam - soft, nontender abdomen. I have discussed the patient's management with Lizz. Please refer to the nurse practitioner's note for the documented findings and plan of care. Patient has anemia which seems multifactorial but from GI standpoint I recommend EGD and colonoscopy but the patient refused. Please recall GI if needed. History of Present Illness Reason for Consultation: anemia, heme + stool Requesting Physician: Kj Attending Physician: Karlee Underwood MD History of Present Illness 77 year old female with history of ESRD on dialysis, AFIB and mechanical mitral valve on AC, hx of pacemaker, right sided heart failure w/ cardiac cirrhosis and chronic pleural effusion, anemia requiring OP transfusions and procrit, HTN T2DM, COPD who presents to the ED 20 days ago w/ complaints of abnormal OP labs , fluid overload. GI was asked to evaluate the pt today heme positive stools and anemia. Pt was seen and evaluated, chart reviewed. At time of evaluation she is eating regular breakfast, OOB in chair. She denies any GI complaints. Denies any abdominal pain, nausea or vomiting. Has been tolerating PO. No GERD, dysphagia. Moves bowels well. Typically daily. Denies any current black/bloody stools but does suggest that from time to time as she will have self limiting dark stools. Her blood count does typically trend down when these dark stools are noted. She tells me she has been evaluated for this for many years and there has never been a source of blood loss identified. Denies fever, chills, CP , SOB. CT: Volume overload with anasarca, ascites, right pleural effusion, and congestive change in the lungs. Cirrhosis and hepatomegaly. VCE: was recommended, pt refused EGD 2014: gastritis, irregular z-line, otherwise negative Colonoscopy 2014: normal ileum, internal hemorrhoids, one 5 mm polyp in transverse colon, otherwise negative. Recall three years for polyp surveillance Colonoscopy 2012: acute on chronic ulceration at TI w/ apthous ulcer Allergies Allergy/AdvReac Type Severity Reaction Status Date / Time Penicillins Allergy Severe anaphylaxis Verified 04/01/18 09:26 30yrs ago, also broke out with sores diltiazem Allergy Unknown unknown Verified 03/25/18 14:30 levofloxacin Allergy Unknown UNKNOWN Verified 03/25/18 14:30 moxifloxacin Allergy Unknown UNKNOWN Verified 03/25/18 14:30 aspirin AdvReac Intermediate increased Verified 03/25/18 14:30 bleeding (on warfarin) doxycycline AdvReac Intermediate GI SYMPTOMS Verified 03/25/18 14:30 atorvastatin AdvReac Unknown & Crestor Verified 03/25/18 14:30 = muscle aches/pains Bactrim AdvReac Unknown CONFUSION Verified 11/10/17 17:54 nortriptyline AdvReac Unknown choking on Verified 03/25/18 14:30 food NSAIDS (Non-Steroidal AdvReac Unknown AVOID PER Verified 03/25/18 14:30 Anti-Inflamma DR[address] HICKS - [id number] quinidine AdvReac Unknown flu-like Verified 03/25/18 14:30 symptoms sulfamethoxazole AdvReac Unknown CONFUSION Verified 03/25/18 14:30 trimethoprim AdvReac Unknown CONFUSION Verified 03/25/18 14:30 clonidine AdvReac Unknown Verified 03/25/18 14:30 hydrocodone AdvReac Unknown Verified 03/25/18 14:30 Home Medications Home Medications Medication Instructions Recorded Confirmed Type Saccharomyces boulardii [Florastor] 250 mg PO DAILY 11/18/17 03/25/18 History cholecalciferol (vitamin D3) 1,000 unit PO TID 11/18/17 03/25/18 History [Vitamin D3] cyanocobalamin (vitamin B-12) 1,000 mcg PO DAILY 11/18/17 03/25/18 History [Vitamin B-12] diazepam 5 mg PO BID PRN 11/18/17 03/25/18 History diclofenac sodium [Voltaren] 1 applic TOPICAL QID PRN 11/18/17 03/25/18 History digoxin 125 mcg PO DAILY 11/18/17 03/25/18 History ezetimibe [Zetia] 10 mg PO HS 11/18/17 03/25/18 History fexofenadine [Vickie Allergy] 180 mg PO DAILY 11/18/17 03/25/18 History gemfibrozil 600 mg PO BID17 11/18/17 03/25/18 History insulin aspart U-100 [Novolog 0 unit SUBCUT DAILY 11/18/17 03/25/18 History U-100 Insulin aspart] levothyroxine [Synthroid] 175 mcg PO QAM 11/18/17 03/25/18 History metoprolol succinate [Toprol XL] 100 mg PO DAILY 11/18/17 03/25/18 History montelukast [Singulair] 10 mg PO DAILY 11/18/17 03/25/18 History pyridoxine (vitamin B6) 100 mg PO DAILY 11/18/17 03/25/18 History trospium 20 mg PO DAILY 11/18/17 03/25/18 History insulin glargine 20 - 60 units SUBCUT AMPM 11/24/17 03/25/18 History hydralazine 25 mg tablet 25 mg PO BID tab 12/03/17 03/25/18 History bumetanide 4 mg PO QPM 12/23/17 03/25/18 History hydrocortisone 1 applic EXT QID #15 g 01/01/18 03/25/18 Rx lidocaine 1 patch TRANSDERMAL QAM #1 ea 01/01/18 03/25/18 Rx metolazone 5 mg PO 3XWK PRN #30 tab 01/01/18 03/25/18 Rx pantoprazole 40 mg PO QAM #30 tab 01/01/18 03/25/18 Rx potassium chloride 20 meq PO BID #60 tab 01/01/18 03/25/18 Rx ranitidine HCl 150 mg PO BID #60 tab 01/01/18 03/25/18 Rx ipratropium-albuterol 0.5 mg-3 3 ml INH QID PRN 02/16/18 03/25/18 History mg(2.5 mg base)/3 mL nebulization soln glucosamine-chondroitin [Osteo 1 tab PO TID 03/12/18 03/25/18 History Bi-Flex] warfarin 3 mg PO [id number] 03/12/18 03/25/18 History warfarin 4 mg tablet 4 mg PO 3XWK 03/15/18 03/25/18 History bumetanide 6 mg PO QAM 03/25/18 03/25/18 History Patient History Medical History Anticoagulated Compression fracture of lumbar vertebra Greater trochanteric bursitis of left hip Depression Iron deficiency Hypothyroidism CHF (congestive heart failure) Anemia (Acute) CKD (chronic kidney disease) stage 4, GFR 15-29 ml/min (Acute) Elevated BUN (Acute) Pulmonary hypertension (Chronic) Essential hypertension (Chronic) Cor pulmonale (chronic) (Chronic) Diabetes mellitus (Chronic 08/25/12) Atrial fibrillation (Chronic 08/25/12) Asthma (Chronic 08/25/12) Cirrhosis (Chronic) COPD (chronic obstructive pulmonary disease) (Chronic) Pleural effusion, right (Chronic) S/P R sided Pleur-X catheter by Dr. uCeva Cirrhosis (Chronic) Acute respiratory failure with hypoxia (Resolved) Cardiac pacemaker procedure (Resolved 10/31/12) Acute on chronic combined systolic and diastolic CHF (congestive heart failure) History of mitral valve replacement with mechanical valve On Coumadin therapy - follows with Dr. Lumadue - goal INR 2.5-3.5 Dowd-Lee valve Hypertension Pacemaker Surgical History S/P placement of cardiac pacemaker Medtronic single-chamber permanent pacemaker. Unipolar lead. At [facility] Family History Other Diabetes mellitus HTN (hypertension) Social History marital status: Current Living Situation: Alone Current Living Situation Comment: has brought spouse, who has dementia, home from [place] Other Information That Helps Us Care for You: No Feels Safe at Home: Yes Safety Concerns: Feels Safe At This Time Smoking Status: Never smoker Hx Alcohol Use: No Hx Substance Use: No Beliefs That Will Affect Care: None Communication Ability: Effective Review of Systems Constitutional: no fever, no chills and no fatigue Respiratory: no cough, no chest congestion and no dyspnea Cardiovascular: no chest pain, no chest pain at rest and no dyspnea Gastrointestinal: no abdominal pain, no belching, no cramping, no fecal incontinence and no melena Physical Exam 2 Vital Signs (Past 24 Hours): Last Vital Signs Temp 36.7 C 04/13/18 09:30 Pulse 60 04/13/18 10:30 Resp 18 04/13/18 07:43 BP 118/47 L 04/13/18 10:30 Pulse Ox 100 04/13/18 07:43 Constitutional: cooperative and comfortable; + not well nourished and no acute distress Respiratory: normal respiratory effort, lungs clear to auscultation Cardiovascular: Rate/Rhythm: regular rate and regular rhythm Heart Sounds: no murmur and no cardiac rub Gastrointestinal (Abdomen): Inspection/Auscultation: normal bowel sounds Percussion/Palpation: abdomen soft; abdomen nontender, no guarding, abdomen not rigid and no abdominal mass Results & Data Laboratory Results 04/13/18 04/13/18 04/13/18 Range/Units 08:07 05:31 05:31 Hgb (12.0-16.0) g/dL Hct (37-47) % PT 28.6 H (9.0-12.0) Seconds INR 3.0 H (0.9-1.1) APTT (21.0-31.0) Seconds PTT Ratio Sodium 127 L (136-145) mmol/L Potassium 5.2 H (3.5-5.1) mmol/L Chloride 95 L (98-107) mmol/L Carbon Dioxide 24 (21-32) mmol/L Anion Gap 8.0 (3-11) BUN 56 H (7-18) mg/dl Creatinine 3.54 H D (0.6-1.2) mg/dl Est Cr Clr Drug Dosing 13.9 ml/min Est GFR ( Amer) 13.8 Est GFR (Non-Af Amer) 11.9 BUN/Creatinine Ratio 15.9 (10-20) Glucose 115 H (70-99) mg/dl POC Glucose 113 H (70-99) Calcium 8.3 L (8.5-10.1) mg/dl Crossmatch 04/13/18 04/12/18 04/12/18 Range/Units 05:31 20:41 17:24 Hgb 7.5 L (12.0-16.0) g/dL Hct 23.7 L (37-47) % PT (9.0-12.0) Seconds INR (0.9-1.1) APTT (21.0-31.0) Seconds PTT Ratio Sodium (136-145) mmol/L Potassium (3.5-5.1) mmol/L Chloride (98-107) mmol/L Carbon Dioxide (21-32) mmol/L Anion Gap (3-11) BUN (7-18) mg/dl Creatinine (0.6-1.2) mg/dl Est Cr Clr Drug Dosing ml/min Est GFR ( Amer) Est GFR (Non-Af Amer) BUN/Creatinine Ratio (10-20) Glucose (70-99) mg/dl POC Glucose 151 H 116 H (70-99) Calcium (8.5-10.1) mg/dl Crossmatch 04/12/18 04/12/18 04/10/18 Range/Units 12:33 12:07 09:04 Hgb (12.0-16.0) g/dL Hct (37-47) % PT (9.0-12.0) Seconds INR (0.9-1.1) APTT 44.1 H (21.0-31.0) Seconds PTT Ratio 1.7 Sodium (136-145) mmol/L Potassium (3.5-5.1) mmol/L Chloride (98-107) mmol/L Carbon Dioxide (21-32) mmol/L Anion Gap (3-11) BUN (7-18) mg/dl Creatinine (0.6-1.2) mg/dl Est Cr Clr Drug Dosing ml/min Est GFR ( Amer) Est GFR (Non-Af Amer) BUN/Creatinine Ratio (10-20) Glucose (70-99) mg/dl POC Glucose 129 H (70-99) Calcium (8.5-10.1) mg/dl Crossmatch See Detail
--- NOTE | 2018-04-13 11:35 | Nephrology Progress Note ---
Date of Service April 13, 2018 Assessment & Plan (1) End stage renal disease: Mrs. Morales was admitted to [facility] for evaluation of weakness and tense LE swelling limiting her ability to ambulate. She has severe pulmonary HTN resulting in R heart failure and cardiac cirrhosis. She has a chronic R Pleur- x catheter in place. Diuretic therapy was met with worsening renal insufficiency and progressive azotemia. HD started on to aid in controlling volume status. -- HD q MWF while inpatient. Plan to start TTS schedule at discharge. (2) Anemia: Medical hx includes chronic anemia requiring IV iron and BINH therapy. -- 1 u PRBC provided 04/10/18. -- Recommend transfusion to maintain Hgb > 8.0 -- FOBT positive x 1. Recommend consultation w/ GI -- Will order iron studies w/ am labs tomorrow -- Repeat H/H tomorrow. (3) Chronic kidney disease-mineral and bone disorder: -- On Calcitriol 0.25 mcg 3 times a week and renal vitamin daily (4) Nutrition disorder: -- Increased dietary protein intake encouraged. (5) Discharge planning issues: -- Plan transfer to [facility] w/ outpatient HD at [facility]. Subjective Mrs. Morales was seen in her hospital room this morning. She reports that her LE swelling persists and her weight is trending up despite HD. Mrs. Morales has developed recurrent anemia. She notes that her stool has been dark in color. Cardiovascular: + edema (improving); no chest pain, no dyspnea at rest and no palpitations Hematologic / Lymphatic: + easy bleeding and + easy bruising Physical Exam 2 Vital Signs (Past 24 Hours): Last Vital Signs Temp 36.7 C 04/13/18 09:30 Pulse 60 04/13/18 10:30 Resp 18 04/13/18 07:43 BP 118/47 L 04/13/18 10:30 Pulse Ox 100 04/13/18 07:43 Constitutional: + obese (chronically ill appearing) Eyes: PERRL, conjunctivae normal, anicteric sclerae Neck: trachea midline, no thyromegaly Respiratory: no respiratory distress Auscultation: + rales (at the bases bilaterally) Cardiovascular: Rate/Rhythm: regular rate Vessels: + JVD (to the angle of the jaw while seated upright) Extremities: + edema (tense bilateral LE edema ) Gastrointestinal (Abdomen): Inspection/Auscultation: + abdomen distended and normal bowel sounds Results & Data Laboratory Results Laboratory Tests 04/13/18 04/13/18 05:31 05:31 Hgb 7.5 L Hct 23.7 L Sodium 127 L Potassium 5.2 H Chloride 95 L Carbon Dioxide 24 BUN 56 H Creatinine 3.54 H D _ (1) Anemia Anemia type: unspecified type Bone marrow failure anemia type: Chronic kidney disease stage: Folate deficiency anemia type: Hemolytic anemia type: Iron deficiency anemia type: Other causes of anemia: Vitamin B12 deficiency anemia type: Qualified Code(s): D64.9 - Anemia, unspecified
[2018-04-13] MEDS: DIGOXIN 0.125 MG TAB PO SCH (13:34)
[2018-04-13] MEDS: METOPROLOL SUCC 50MG EXT REL TAB PO SCH (13:34)
--- NOTE | 2018-04-13 20:29 | Hospitalist Progress Note ---
Date of Service April 13, 2018 Assessment & Plan (1) End stage renal disease: s/p permcath placement M/W/F HD schedule here and will transition to TRSat as outpt - was massively volume-overloaded at time of presentation due to cirrhosis/ right-sided heart failure, worsening renal disease, etc Weight has been going up the last few days--> RN reports pt was not following her fluid restriction, I/Os not accurately recorded -Appreciate Nephrology management -continue fluid restriction and emphasized this with pt (2) H/O mitral valve replacement with mechanical valve: INR goal 2.5 to 3.5 INR 3.0 today Decrease Coumadin back to 3mg daily (received 4mg daily for many days), will likely need 3mg alt with 4mg -follow INR (3) Hyponatremia: ongoing, multifactorial due to volume overload status -continue fluid restriction -follow BMP (4) Acute on chronic right-sided congestive heart failure: volume status was slowly improving with initiation of HD still with massive peripheral edema UF goal is 3L each time, tolerating well (5) Acute on chronic anemia: Has received 7 units PRBCs this admission Last transfusion of one unit on 04/10 no further active bleeding (no bleeding from catheter) patient does admit to some dark stools heme occult positive on numerous occasions -evaluated by GI in 2013 for anemia, had normal EGD and colonoscopy at that time -GI saw her again this admission and she refuses any scopes -transfuse 1 unit PRBCs today slowly over 4 hours -follow CBC in AM (6) Hypothyroidism: synthroid most recent TSH acceptable (7) Atrial fibrillation: paced on monitor takes chronic coumadin (8) Cirrhosis: contributes to volume overload status no evidence of any hepatic encephalopathy GI saw her here and made the following recommendations to be done by her PCP as pt refuses to f/u with GI: -MELD labs every 3-6 months - RUQ US w/ AFP for HCC screening every 6 months - EGD for variceal screening - pt deferred this - Screen for Hep A/B - would offer immunization if not immune - Low NA diet, less than 2G daily - If using tylenol, less than 2G daily - No ETOH (9) Pleural effusion, right: drain pleurX catheter daily (10) COPD (chronic obstructive pulmonary disease): stable (11) UTI (urinary tract infection): completed seven days of Cefdinir early in course of admission (12) DVT prophylaxis: coumadin Dispo-was supposed to be going to [facility]--> today, pt now saying she wants to go to [facility] as her is going there later this week. She says that a rep from [facility] is to be visiting her in the hospital tomorrow to discuss this possibility -Placed CM order to make them aware of her change in wishes for placement Should be medically stable for discharge in the next 1-2 days Will need frequent CBC checks and IV iron or PRBC transfusions Subjective Pt sad that her 's brother suddenly 2 nights ago and she had to tell her about it last evening. Her is now admitted to the hospital as well. She is having some itching on her back, still has massively swollen lower extremities. Breathing is about the same, but ambulating around her room, wants to ambulate the halls tomorrow with assistance. Discussed her case with Nephrology today Review of Systems All systems reviewed & are unremarkable except as noted in HPI & below Physical Exam 2 Vital Signs (Past 24 Hours): Last Vital Signs Temp 36.7 C 04/13/18 16:11 Pulse 84 04/13/18 16:11 Resp 17 04/13/18 16:11 BP 103/58 L 04/13/18 16:11 Pulse Ox 91 04/13/18 16:11 Constitutional: WD/WN, vitals as above (Chronically ill-appearing) Eyes: PERRL, conjunctivae normal, anicteric sclerae EOM intact bilaterally ENMT: external ear and nose normal, oropharynx normal Neck: trachea midline, no thyromegaly Respiratory: normal respiratory effort Auscultation: + crackles (At the bases); no wheezes Cardiovascular: Rate/Rhythm: regular rate; + abnormal rhythm (Irregularly irregular) Heart Sounds: + murmur (At the apex with loud S2) Extremities: + edema (3-4+ pitting edema in the legs bilaterally to the abdomen) and + vascular access device (rt anterior chest wall with perm cath in place) Gastrointestinal (Abdomen): normal bowel sounds, soft, nontender, no hepatosplenomegaly (Mild distention) Musculoskeletal: Extremities: no cyanosis and no clubbing Skin: no rashes, warm and dry Neurologic: moves all extremities and awake; no focal motor deficits Psychiatric: Orientation: alert and oriented x 3 Affect: + depressed affect Results & Data Laboratory Results 04/13/18 04/13/18 04/13/18 Range/Units 22:03 18:23 14:32 Hgb (12.0-16.0) g/dL Hct (37-47) % PT (9.0-12.0) Seconds INR (0.9-1.1) Sodium (136-145) mmol/L Potassium (3.5-5.1) mmol/L Chloride (98-107) mmol/L Carbon Dioxide (21-32) mmol/L Anion Gap (3-11) BUN (7-18) mg/dl Creatinine (0.6-1.2) mg/dl Est Cr Clr Drug Dosing ml/min Est GFR ( Amer) Est GFR (Non-Af Amer) BUN/Creatinine Ratio (10-20) Glucose (70-99) mg/dl POC Glucose 147 H 145 H (70-99) Calcium (8.5-10.1) mg/dl Blood Type A Positive Antibody Screen POSITIVE A Antibody Identification Anti-c Crossmatch See Detail 04/13/18 04/13/18 04/13/18 Range/Units 13:21 08:07 05:31 Hgb (12.0-16.0) g/dL Hct (37-47) % PT (9.0-12.0) Seconds INR (0.9-1.1) Sodium 127 L (136-145) mmol/L Potassium 5.2 H (3.5-5.1) mmol/L Chloride 95 L (98-107) mmol/L Carbon Dioxide 24 (21-32) mmol/L Anion Gap 8.0 (3-11) BUN 56 H (7-18) mg/dl Creatinine 3.54 H D (0.6-1.2) mg/dl Est Cr Clr Drug Dosing 13.9 ml/min Est GFR ( Amer) 13.8 Est GFR (Non-Af Amer) 11.9 BUN/Creatinine Ratio 15.9 (10-20) Glucose 115 H (70-99) mg/dl POC Glucose 77 113 H (70-99) Calcium 8.3 L (8.5-10.1) mg/dl Blood Type Antibody Screen Antibody Identification Crossmatch 0104/13/18 04/10/18 Range/Units 05:31 05:31 09:04 Hgb 7.5 L (12.0-16.0) g/dL Hct 23.7 L (37-47) % PT 28.6 H (9.0-12.0) Seconds INR 3.0 H (0.9-1.1) Sodium (136-145) mmol/L Potassium (3.5-5.1) mmol/L Chloride (98-107) mmol/L Carbon Dioxide (21-32) mmol/L Anion Gap (3-11) BUN (7-18) mg/dl Creatinine (0.6-1.2) mg/dl Est Cr Clr Drug Dosing ml/min Est GFR ( Amer) Est GFR (Non-Af Amer) BUN/Creatinine Ratio (10-20) Glucose (70-99) mg/dl POC Glucose (70-99) Calcium (8.5-10.1) mg/dl Blood Type Antibody Screen Antibody Identification Crossmatch See Detail 04/06/18 Range/Units 08:55 Hgb (12.0-16.0) g/dL Hct (37-47) % PT (9.0-12.0) Seconds INR (0.9-1.1) Sodium (136-145) mmol/L Potassium (3.5-5.1) mmol/L Chloride (98-107) mmol/L Carbon Dioxide (21-32) mmol/L Anion Gap (3-11) BUN (7-18) mg/dl Creatinine (0.6-1.2) mg/dl Est Cr Clr Drug Dosing ml/min Est GFR ( Amer) Est GFR (Non-Af Amer) BUN/Creatinine Ratio (10-20) Glucose (70-99) mg/dl POC Glucose (70-99) Calcium (8.5-10.1) mg/dl Blood Type Antibody Screen Antibody Identification Crossmatch See Detail _ (1) UTI (urinary tract infection) Encounter type: Hematuria presence: without hematuria Indwelling urinary catheter type: Urinary tract infection type: acute cystitis Qualified Code(s) : N30.00 - Acute cystitis without hematuria (2) Atrial fibrillation Atrial fibrillation type: chronic Qualified Code(s): I48.2 - Chronic atrial fibrillation (3) Hypothyroidism Hypothyroidism type: acquired Qualified Code(s): E03.9 - Hypothyroidism, unspecified (4) Cirrhosis Ascites presence: Hepatic cirrhosis type: other cirrhosis Qualified Code(s) : K74.69 - Other cirrhosis of liver (5) COPD (chronic obstructive pulmonary disease) COPD type: unspecified COPD Chronic bronchitis type: Emphysema type: Qualified Code(s): J44.9 - Chronic obstructive pulmonary disease, unspecified
[2018-04-13] MEDS ORDERED: WARFARIN SOD 3 MG TAB PO STA (20:31)
[2018-04-13] MEDS: EZETIMIBE 10 MG TABLET PO SCH (22:09)
[2018-04-14] MEDS: diazePAM 5 MG TABLET PO PRN ×2 (02:32→23:58)
[2018-04-14] MEDS: DICLOFENAC SOD 1% GEL 100 GM TUBE EXT SCH ×6 (02:34→23:59)
[2018-04-14] MEDS: LEVOTHYROXINE SODIUM 175 MCG TABLET PO SCH (05:58)
[2018-04-14] MEDS: INSULIN ASPART 100 UNITS/ML 3 ML PEN SC SCH ×4 (08:35→20:58)
[2018-04-14] MEDS: PANTOprazole 40 MG TAB PO SCH (08:35)
[2018-04-14] MEDS: NYSTATIN POWDER 15GM BTL EXT SCH ×4 (08:35→20:58)
[2018-04-14] MEDS: INSULIN GLARGINE 100 UNIT/ML VIAL SC SCH ×2 (08:35→21:08)
[2018-04-14] MEDS: NEPHROCAPS PO SCH (08:35)
[2018-04-14] MEDS: DIGOXIN 0.125 MG TAB PO SCH (08:35)
[2018-04-14] MEDS: METOPROLOL SUCC 50MG EXT REL TAB PO SCH (08:35)
[2018-04-14] MEDS: TRIAMCINOLONE ACET 0.1% CR 15 GM TUBE EXT SCH ×3 (08:36→20:58)
[2018-04-14] MEDS: SACCHAROMYCES BOULARDII 250 MG CAP PO SCH (08:36)
[2018-04-14] MEDS: TROSPIUM ~ ORDER AWAITING ACTION SCH ×2 (08:36→17:07)
[2018-04-14 09:27] LABS: Hemoglobin 8.1 g/dL (12.0-16.0); Mean Corpuscular Hgb Conc 31.2 g/dL (32-36); Mean Corpuscular Volume 93.2 fL (80-100); Mean Platelet Volume 9.5 fL (7.4-10.4); Platelet Count 150 K/uL (130-400); RDW Coefficient of Variation 20.2 % (11.5-14.5); RDW Standard Deviation 68.7 fL (36.4-46.3); Red Blood Count 2.79 M/uL (4.2-5.4); White Blood Count 4.96 K/uL (4.8-10.8)
[2018-04-14 09:42] LABS: INR 2.4 (0.9-1.1)
[2018-04-14 09:59] LABS: BUN Creatinine Ratio 13.7 (10-20); Calcium 8.5 mg/dl (8.5-10.1); Creatinine Clr Calc Pharmacy 15.7 ml/min; Est GFR (African American) 16.2; Potassium 4.4 mmol/L (3.5-5.1)
[2018-04-14 10:07] LABS: Ferritin 102.1 ng/ml (8-388)
[2018-04-14] MEDS: CETIRIZINE HCL 10 MG TABLET PO SCH ×2 (10:10→21:09)
--- NOTE | 2018-04-14 10:45 | Nephrology Progress Note ---
Date of Service April 14, 2018 Assessment & Plan (1) End stage renal disease: Mrs. Morales was admitted to [facility] for evaluation of weakness and tense LE swelling limiting her ability to ambulate. She has severe pulmonary HTN resulting in R heart failure and cardiac cirrhosis. She has a chronic R Pleur- x catheter in place. Diuretic therapy was met with worsening renal insufficiency and progressive azotemia. HD started on to aid in controlling volume status. -- HD q MWF while inpatient. Plan to start TTS schedule at discharge -- Electrolyte balance is acceptable at this time. Focus on physical therapy today. Will schedule next HD for am (2) Anemia: Medical hx includes chronic anemia requiring IV iron and BINH therapy. -- 1 u PRBC provided 04/10/18. -- Recommend transfusion to maintain Hgb > 8.0 -- FOBT positive x 1. GI recommendations reviewed. Patient has declined endoscopy -- Iron saturation 22% w/ ferritin 102. Will order IV iron w/ HD (3) Chronic kidney disease-mineral and bone disorder: -- On Calcitriol 0.25 mcg 3 times a week and renal vitamin daily (4) Nutrition disorder: -- Increased dietary protein intake encouraged. (5) Discharge planning issues: -- Plan transfer to [facility] w/ outpatient HD at [facility]. Subjective Mrs. Morales was seen in her hospital room this morning. She was able to ambulate in the hallway w/ the assistance of physical therapy. She complains of persistent LE swelling. Cardiovascular: + edema (improving); no chest pain, no dyspnea at rest and no palpitations Hematologic / Lymphatic: + easy bleeding and + easy bruising Physical Exam 2 Vital Signs (Past 24 Hours): Last Vital Signs Temp 36.8 C 04/14/18 07:54 Pulse 64 04/14/18 08:35 Resp 16 04/14/18 07:54 BP 107/46 L 04/14/18 07:54 Pulse Ox 99 04/14/18 07:54 Constitutional: + obese (chronically ill appearing) Eyes: PERRL, conjunctivae normal, anicteric sclerae Neck: trachea midline, no thyromegaly Respiratory: no respiratory distress Auscultation: + rales (at the bases bilaterally) Cardiovascular: Rate/Rhythm: regular rate Vessels: + JVD (to the angle of the jaw while seated upright) Extremities: + edema (tense bilateral LE edema ) Gastrointestinal (Abdomen): Inspection/Auscultation: + abdomen distended and normal bowel sounds Results & Data Laboratory Results Laboratory Tests 04/14/18 04/14/18 09:02 09:02 WBC 4.96 Hgb 8.1 L Hct 26.0 L Plt Count 150 Sodium 129 L Potassium 4.4 D Chloride 95 L Carbon Dioxide 27 BUN 43 H Creatinine 3.11 H D Glucose 121 H Laboratory Tests 04/14/18 09:02 Transferrin % Sat 22 Ferritin 102.1 _ (1) Anemia Anemia type: unspecified type Bone marrow failure anemia type: Chronic kidney disease stage: Folate deficiency anemia type: Hemolytic anemia type: Iron deficiency anemia type: Other causes of anemia: Vitamin B12 deficiency anemia type: Qualified Code(s): D64.9 - Anemia, unspecified
[2018-04-14] MEDS: WARFARIN SOD 4 MG TAB PO SCH (17:06)
--- NOTE | 2018-04-14 20:01 | Hospitalist Progress Note ---
Date of Service April 14, 2018 Assessment & Plan (1) End stage renal disease: now on hemodialysis via permcath M//, to transition to //Fri schedule at d/c. HD tomorrow. oddly, despite numerous HD sessions this admission, she has gained weight & peripheral edema has not improved. I am hopeful with time her volume status will gradually improve. appreciate nephrology assistance. also will receive another round of venofer tomorrow. (2) Acute on chronic right-sided congestive heart failure: volume status still poor with considerable LE edema and probable ascites. continue HD sessions for volume control. continue beta jose roberto. (3) H/O mitral valve replacement with mechanical valve: INR goal 2.5 to 3.5 cont coumadin as is today INR in am (4) Hyponatremia: due to ESRD, cirrhosis, CHF. has become chronic - has had low Na since early fall 2017. no symptoms from hyponatremia. follow. (5) Acute on chronic anemia: s/p multiple units of PRBCs this admission. Hb goal is 7.5 or higher in light of numerous cardiac conditions. cbc in am. the frequent PRBC requirement is likely due to ongoing GI bleeding - perhaps AVM ? patient repeatedly has declined endoscopic eval including capsule endoscopy. to receive additional IV iron tomorrow on HD. (6) Pulmonary hypertension: will need O2 at d/c. (7) Diabetes mellitus: controlled w/ current regimen. (8) Cirrhosis: likely due to chronic cor pulmonale. this contributes to her volume overloaded state. previous ammonia levels have been acceptable. cont BB. cont HD for volume control. (9) Atrial fibrillation: paced. cont coumadin. cont metoprolol. cont digoxin. (10) Pleural effusion, right: chronic pleurX catheter is in place. daily drain. (11) DVT prophylaxis: coumadin (12) Discharge planning issues: spoke with Olga Lidia from case management auth had been submitted for [facility] - this is pending patient possibly changing her mind about [facility] - stating she may want to go to [facility] instead to join her I appreciate case management assistance with this Subjective patient very upset about her disposition initially the plan was for [facility] now she has changed her mind and is wanting to go to [facility] her was in the hospital this weekend and was d/c today he is returning to [facility] first, then transferring to [facility] later this week she voices significant stress about the cost of either location, therapy, transportation to get to her dialysis, etc she also c/o about ongoing LE edema and abdominal swelling she stated "I wouldn't have done dialysis if it was going to be this way" Constitutional: no fever and no anorexia Respiratory: no cough and no dyspnea Cardiovascular: no chest pain Gastrointestinal: no abdominal pain Physical Exam 2 Vital Signs (Past 24 Hours): Last Vital Signs Temp 36.6 C 04/14/18 16:16 Pulse 67 04/14/18 16:16 Resp 18 04/14/18 16:16 BP 117/57 L 04/14/18 16:16 Pulse Ox 100 04/14/18 16:16 Constitutional: no acute distress and not ill appearing ENMT: external ear and nose normal, oropharynx normal Respiratory: Auscultation: + diminished lung sounds (bases) and + rales (faint , bases) Cardiovascular: Heart Sounds: normal S1, normal S2 and + murmur (2/6 LLSB) Vessels: + JVD (to the jaw ), posterior tibial pulses present and dorsalis pedis pulses present Extremities: + edema (severe - from the feet to the hips - no change from prior examinations ) mechanical valve closure sound Gastrointestinal (Abdomen): Inspection/Auscultation: + abdomen distended ( mildly tympanic ) and normal bowel sounds Percussion/Palpation: + hepatomegaly; no splenomegaly Skin: ashen/pale color throughout Psychiatric: Orientation: alert and oriented x 3 Mood: + depressed mood Results & Data Laboratory Results Laboratory Results - last 24 hr 04/10/18 04/13/18 04/13/18 09:04 14:32 22:03 WBC RBC Hgb Hct MCV MCH MCHC RDW Std Deviation RDW Coeff of Marco Plt Count MPV PT INR Sodium Potassium Chloride Carbon Dioxide Anion Gap BUN Creatinine Est Cr Clr Drug Dosing Est GFR ( Amer) Est GFR (Non-Af Amer) BUN/Creatinine Ratio Glucose POC Glucose 147 H Calcium Iron Transferrin Transferrin % Sat Ferritin Blood Type A Positive Antibody Screen POSITIVE A Antibody Identification Anti-c Crossmatch See Detail See Detail 04/14/18 04/14/18 04/14/18 08:06 09:02 09:02 WBC 4.96 RBC 2.79 L Hgb 8.1 L Hct 26.0 L MCV 93.2 MCH 29.0 MCHC 31.2 L RDW Std Deviation 68.7 H RDW Coeff of Marco 20.2 H Plt Count 150 MPV 9.5 PT 23.0 H INR 2.4 H Sodium Potassium Chloride Carbon Dioxide Anion Gap BUN Creatinine Est Cr Clr Drug Dosing Est GFR ( Amer) Est GFR (Non-Af Amer) BUN/Creatinine Ratio Glucose POC Glucose 89 Calcium Iron Transferrin Transferrin % Sat Ferritin Blood Type Antibody Screen Antibody Identification Crossmatch 04/14/18 04/14/18 04/14/18 09:02 11:46 17:29 WBC RBC Hgb Hct MCV MCH MCHC RDW Std Deviation RDW Coeff of Marco Plt Count MPV PT INR Sodium 129 L Potassium 4.4 D Chloride 95 L Carbon Dioxide 27 Anion Gap 7.0 BUN 43 H Creatinine 3.11 H D Est Cr Clr Drug Dosing 15.7 Est GFR ( Amer) 16.2 Est GFR (Non-Af Amer) 14.0 BUN/Creatinine Ratio 13.7 Glucose 121 H POC Glucose 134 H 128 H Calcium 8.5 Iron 82 Transferrin 268 Transferrin % Sat 22 Ferritin 102.1 Blood Type Antibody Screen Antibody Identification Crossmatch _ (1) Diabetes mellitus Diabetes mellitus type: type 2 Diabetes mellitus care home insulin use: with care home use Diabetes mellitus complication status: with kidney complications Diabetes mellitus complication detail: with chronic kidney disease Diabetic retinopathy severity: Proliferative retinopathy type: Diabetes mellitus macular edema: Laterality: Chronic kidney disease stage: stage 4 (severe) Qualified Code(s): E11.22 - Type 2 diabetes mellitus with diabetic chronic kidney disease; N18.4 - Chronic kidney disease, stage 4 (severe); Z79.4 - [facility] (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 of insulin (2) Cirrhosis Hepatic cirrhosis type: other cirrhosis Ascites presence: Qualified Code(s) : K74.69 - Other cirrhosis of liver (3) Atrial fibrillation Atrial fibrillation type: chronic Qualified Code(s): I48.2 - Chronic atrial fibrillation
[2018-04-14] MEDS: EZETIMIBE 10 MG TABLET PO SCH (21:10)
[2018-04-15] MEDS: TROSPIUM ~ ORDER AWAITING ACTION SCH ×4 (00:16→23:15)
[2018-04-15] MEDS ORDERED: EPOETIN ALFA 10,000 UNITS/ML VIAL IV ONE (06:00)
[2018-04-15] MEDS ORDERED: IRON SUCROSE 100 MG in SYRINGE 0 ML IV ONE ×2 (06:00→13:30)
[2018-04-15] MEDS ORDERED: SODIUM CHLORIDE 0.9% 1000ML 1,000 ML IV PRN (06:00)
[2018-04-15] MEDS: LEVOTHYROXINE SODIUM 175 MCG TABLET PO SCH (06:13)
[2018-04-15 06:50] LABS: Hematocrit (blood only) 25.6 % (37-47); Hemoglobin 8.1 g/dL (12.0-16.0); Mean Corpuscular Hgb Conc 31.6 g/dL (32-36); Mean Corpuscular Volume 93.1 fL (80-100); Mean Platelet Volume 8.9 fL (7.4-10.4); Platelet Count 142 K/uL (130-400); RDW Coefficient of Variation 19.7 % (11.5-14.5); RDW Standard Deviation 67.1 fL (36.4-46.3); Red Blood Count 2.75 M/uL (4.2-5.4); White Blood Count 4.92 K/uL (4.8-10.8)
[2018-04-15 07:09] LABS: INR 2.1 (0.9-1.1); Prothrombin Time 20.7 Seconds (9.0-12.0)
[2018-04-15 07:23] LABS: BUN Creatinine Ratio 14.5 (10-20); Calcium 8.2 mg/dl (8.5-10.1); Creatinine Clr Calc Pharmacy 14.2 ml/min; Est GFR (African American) 14.3; Est GFR (Non-African American) 12.4; Potassium 4.5 mmol/L (3.5-5.1)
[2018-04-15] MEDS: INSULIN ASPART 100 UNITS/ML 3 ML PEN SC SCH ×4 (08:25→20:24)
[2018-04-15] MEDS: DIGOXIN 0.125 MG TAB PO SCH (08:26)
[2018-04-15] MEDS: CALCITRIOL 0.25 MCG CAPSULE PO SCH (08:27)
[2018-04-15] MEDS: NEPHROCAPS PO SCH (08:31)
[2018-04-15] MEDS: CETIRIZINE HCL 10 MG TABLET PO SCH ×2 (08:32→20:21)
[2018-04-15] MEDS: PANTOprazole 40 MG TAB PO SCH (08:32)
[2018-04-15] MEDS: DICLOFENAC SOD 1% GEL 100 GM TUBE EXT SCH ×4 (08:33→22:41)
[2018-04-15] MEDS: INSULIN GLARGINE 100 UNIT/ML VIAL SC SCH ×2 (08:35→20:22)
[2018-04-15] MEDS: ACETAMINOPHEN 325 MG TAB PO PRN (08:39)
--- NOTE | 2018-04-15 09:37 | Nephrology Progress Note ---
Date of Service April 15, 2018 Assessment & Plan (1) End stage renal disease: Mrs. Morales was admitted to [facility] for evaluation of weakness and tense LE swelling limiting her ability to ambulate. She has severe pulmonary HTN resulting in R heart failure and cardiac cirrhosis. She has a chronic R Pleur- x catheter in place. Diuretic therapy was met with worsening renal insufficiency and progressive azotemia. HD started on to aid in controlling volume status. -- HD q MWF while inpatient. Plan to start TTS schedule at discharge -- HD orders placed in EMR this am and HD RN notified (2) Anemia: Medical hx includes chronic anemia requiring IV iron and BINH therapy. -- 1 u PRBC provided 04/10/18. -- Recommend transfusion to maintain Hgb > 8.0 -- FOBT positive x 1. GI recommendations reviewed. Patient has declined endoscopy -- Iron saturation 22% w/ ferritin 102. Will order IV iron w/ HD (3) Chronic kidney disease-mineral and bone disorder: -- On Calcitriol 0.25 mcg 3 times a week and renal vitamin daily (4) Nutrition disorder: -- Increased dietary protein intake encouraged. (5) Discharge planning issues: -- Plan transfer to [facility] w/ outpatient HD at [facility]. Subjective Mrs. Morales was seen in her hospital room this morning. She complains of persistent LE swelling. She voices no other medical concerns. Cardiovascular: + edema (improving); no chest pain, no dyspnea at rest and no palpitations Hematologic / Lymphatic: + easy bleeding and + easy bruising Physical Exam 2 Vital Signs (Past 24 Hours): Last Vital Signs Temp 36.4 C L 04/15/18 07:00 Pulse 56 L 04/15/18 08:26 Resp 18 04/15/18 07:00 BP 105/49 L 04/15/18 07:00 Pulse Ox 98 04/15/18 07:00 Constitutional: + obese (chronically ill appearing) Eyes: PERRL, conjunctivae normal, anicteric sclerae Neck: trachea midline, no thyromegaly Respiratory: no respiratory distress Auscultation: + rales (at the bases bilaterally) Cardiovascular: Rate/Rhythm: regular rate Vessels: + JVD (to the angle of the jaw while seated upright) Extremities: + edema (tense bilateral LE edema ) Gastrointestinal (Abdomen): Inspection/Auscultation: + abdomen distended and normal bowel sounds Results & Data Laboratory Results Laboratory Tests 04/15/18 04/15/18 06:36 06:36 WBC 4.92 Hgb 8.1 L Hct 25.6 L Plt Count 142 Sodium 128 L Potassium 4.5 Chloride 94 L Carbon Dioxide 26 BUN 50 H Creatinine 3.44 H D _ (1) Anemia Anemia type: unspecified type Bone marrow failure anemia type: Chronic kidney disease stage: Folate deficiency anemia type: Hemolytic anemia type: Iron deficiency anemia type: Other causes of anemia: Vitamin B12 deficiency anemia type: Qualified Code(s): D64.9 - Anemia, unspecified
[2018-04-15] MEDS ORDERED: IRON SUCROSE 200 MG in 0.9 % SODIUM CHLORIDE 100 ML IV SCH (10:00)
[2018-04-15] MEDS ORDERED: IRON SUCROSE (VENOFER) 100 MG/5 ML VIAL IV ONE (10:00)
[2018-04-15] MEDS: TRIAMCINOLONE ACET 0.1% CR 15 GM TUBE EXT SCH ×3 (14:04→20:21)
[2018-04-15] MEDS: NYSTATIN POWDER 15GM BTL EXT SCH ×4 (14:04→20:21)
[2018-04-15] MEDS: METOPROLOL SUCC 50MG EXT REL TAB PO SCH (14:05)
--- NOTE | 2018-04-15 14:09 | XRay Report ---
XR chest 2V routine CLINICAL HISTORY: 77 years-old Female presenting with CHF. TECHNIQUE: PA and lateral views of the chest were obtained. COMPARISON: 03/25/2018, 03/12/2018 and 02/17/2018. FINDINGS: Left subclavian a cervical with single lead to the right ventricular apex. Tunneled right internal ju gular dialysis catheter terminates in the lower SVC. Median sternotomy wires and prosthetic aortic va lve noted. Right pleural drain terminates at the right lung base, unchanged. Atherosclerosis of the aortic arch. Main pulmonary artery enlargement. Moderate cardiac silhouette en largement. Pulmonary vascular prominence is slightly worse than on prior exam. Slight interval worsen ing of the small right pleural effusion. New small left pleural effusion with significantly worsened aeration of the left lung base. Bandlike opacity in the left midlung increased. No pneumothorax. Dege nerative changes of the thoracic spine. Upper abdomen normal. IMPRESSION: 1. Interval increase in volume overload/congestive change with worsened bilateral pleural effusions and worsened lung base aeration. No jhonny pulmonary edema. Electronically signed by: Adam Nagel M.D. 04/15/2018 2:08 PM
[2018-04-15] MEDS: SACCHAROMYCES BOULARDII 250 MG CAP PO SCH (14:27)
[2018-04-15] MEDS: WARFARIN SOD 4 MG TAB PO SCH (15:48)
--- NOTE | 2018-04-15 17:17 | Cardiology Consultation ---
Date of Consultation April 15, 2018 Assessment & Plan (1) Cor pulmonale (chronic): She appears to have had refractory right heart failure. She has an element of cardiac cirrhosis and significant edema. Despite escalating doses of diuretics, she continued to gain fluid. She has now been initiated on dialysis. They appear to be aggressively removing volume. The patient was frustrated that her weight has not come down significantly, but I think this is artifactual. Hopefully with continued dialysis and volume removal she will see some notable improvement in her edema. (2) Atrial fibrillation: Permanent. She has been maintained on systemic anticoagulation, both for her atrial fibrillation as well as her mechanical mitral valve. This places her at the highest risk for thromboembolic events and he would be difficult to discontinue her anticoagulation even if there is suspected GI losses of blood. Present on Admission?: Yes (3) Valvular heart disease: She has a ball and cage mechanical aortic valve. There does appear to be an increase in the gradient across the valve suggesting an element of mitral stenosis. This certainly could contribute to some of her cor pulmonale. However, she does not appear to be a candidate for any intervention regardless of the valve function. She will need to maintain anticoagulation with warfarin. (4) Complete heart block: Patient underwent generator change for single-chamber pacemaker in 2018. She does appear to be pacer dependent but the device is functioning normally. (5) Concentric left ventricular hypertrophy: She has severe left ventricular hypertrophy. She does benefit from normal filling of the left ventricle and any situation in which she is hypovolemic could cause some hemodynamic compromise. However, she has tolerated dialysis well. She has been maintained on a beta-jose roberto. LVH seems to be the main indication for beta-blockade at this point. Normal systolic function. History of Present Illness Reason for Consultation: Heart failure Requesting Physician: Mirna Attending Physician: Tariq Bradley History of Present Illness Patient is a 77-year-old woman with an extensive past medical history to include permanent atrial fibrillation, complete heart block status post pacemaker implantation, a history of mechanical mitral valve replacement and refractory cor pulmonale who was admitted earlier this month for symptomatic hypovolemia. Patient has struggled for some time with symptoms of right heart failure associated with her cor pulmonale. This is involve placement of a PleurX catheter for frequent drainage of persistent pleural effusions. She has been maintained on an aggressive diuretic regimen as an outpatient but this appears to have become less effective. During this hospitalization, the patient was actually initiated on dialysis for volume management. It seems her initial presentation involved symptoms of hypovolemia including persistent dyspnea and lower extremity edema. During her hospitalization she has continued to require frequent transfusions for persistent anemia thought secondary to both her renal insufficiency and chronic gastrointestinal losses. She had some complications related to dialysis access placement. She has been frustrated with her poor health. This evening the patient complains primarily of lower extremity edema. This is present more in her thighs than her ankles. She is frustrated by the fact that she has difficulty even wearing sweat pants. She states that her breathing is somewhat improved since admission but she still somewhat dyspneic with activity. She has not currently been wearing oxygen with activity as her hypoxia appears to have improved. She has difficulty lying flat to sleep. This is not due to breathing difficulty but due to compression fractures. She denies any dizziness or lightheadedness. She has not been aware of any palpitations. She has a variety of other complaints currently including a visual disturbance in her left eye, itching in the left eye and her ears plugging. Allergies Allergy/AdvReac Type Severity Reaction Status Date / Time Penicillins Allergy Severe anaphylaxis Verified 04/01/18 09:26 30yrs ago, also broke out with sores diltiazem Allergy Unknown unknown Verified 03/25/18 14:30 levofloxacin Allergy Unknown UNKNOWN Verified 03/25/18 14:30 moxifloxacin Allergy Unknown UNKNOWN Verified 03/25/18 14:30 aspirin AdvReac Intermediate increased Verified 03/25/18 14:30 bleeding (on warfarin) doxycycline AdvReac Intermediate GI SYMPTOMS Verified 03/25/18 14:30 atorvastatin AdvReac Unknown & Crestor Verified 03/25/18 14:30 = muscle aches/pains Bactrim AdvReac Unknown CONFUSION Verified 11/10/17 17:54 nortriptyline AdvReac Unknown choking on Verified 03/25/18 14:30 food NSAIDS (Non-Steroidal AdvReac Unknown AVOID PER Verified 03/25/18 14:30 Anti-Inflamma [address] HICKS - [id number] quinidine AdvReac Unknown flu-like Verified 03/25/18 14:30 symptoms sulfamethoxazole AdvReac Unknown CONFUSION Verified 03/25/18 14:30 trimethoprim AdvReac Unknown CONFUSION Verified 03/25/18 14:30 clonidine AdvReac Unknown Verified 03/25/18 14:30 hydrocodone AdvReac Unknown Verified 03/25/18 14:30 Home Medications Home Medications Medication Instructions Recorded Confirmed Type Saccharomyces boulardii [Florastor] 250 mg PO DAILY 11/18/17 03/25/18 History cholecalciferol (vitamin D3) 1,000 unit PO TID 11/18/17 03/25/18 History [Vitamin D3] cyanocobalamin (vitamin B-12) 1,000 mcg PO DAILY 11/18/17 03/25/18 History [Vitamin B-12] diazepam 5 mg PO BID PRN 11/18/17 03/25/18 History diclofenac sodium [Voltaren] 1 applic TOPICAL QID PRN 11/18/17 03/25/18 History digoxin 125 mcg PO DAILY 11/18/17 03/25/18 History ezetimibe [Zetia] 10 mg PO HS 11/18/17 03/25/18 History fexofenadine [Vickie Allergy] 180 mg PO DAILY 11/18/17 03/25/18 History gemfibrozil 600 mg PO BID17 11/18/17 03/25/18 History insulin aspart U-100 [Novolog 0 unit SUBCUT DAILY 11/18/17 03/25/18 History U-100 Insulin aspart] levothyroxine [Synthroid] 175 mcg PO QAM 11/18/17 03/25/18 History metoprolol succinate [Toprol XL] 100 mg PO DAILY 11/18/17 03/25/18 History montelukast [Singulair] 10 mg PO DAILY 11/18/17 03/25/18 History pyridoxine (vitamin B6) 100 mg PO DAILY 11/18/17 03/25/18 History trospium 20 mg PO DAILY 11/18/17 03/25/18 History insulin glargine 20 - 60 units SUBCUT AMPM 11/24/17 03/25/18 History hydralazine 25 mg tablet 25 mg PO BID tab 12/03/17 03/25/18 History bumetanide 4 mg PO QPM 12/23/17 03/25/18 History hydrocortisone 1 applic EXT QID #15 g 01/01/18 03/25/18 Rx lidocaine 1 patch TRANSDERMAL QAM #1 ea 01/01/18 03/25/18 Rx metolazone 5 mg PO 3XWK PRN #30 tab 01/01/18 03/25/18 Rx pantoprazole 40 mg PO QAM #30 tab 01/01/18 03/25/18 Rx potassium chloride 20 meq PO BID #60 tab 01/01/18 03/25/18 Rx ranitidine HCl 150 mg PO BID #60 tab 01/01/18 03/25/18 Rx ipratropium-albuterol 0.5 mg-3 3 ml INH QID PRN 02/16/18 03/25/18 History mg(2.5 mg base)/3 mL nebulization soln glucosamine-chondroitin [Osteo 1 tab PO TID 03/12/18 03/25/18 History Bi-Flex] warfarin 3 mg PO 4XWK 03/12/18 03/25/18 History warfarin 4 mg tablet 4 mg PO 3XWK 03/15/18 03/25/18 History bumetanide 6 mg PO QAM 03/25/18 03/25/18 History Patient History Medical History Anticoagulated Compression fracture of lumbar vertebra Greater trochanteric bursitis of left hip Depression Iron deficiency Hypothyroidism CHF (congestive heart failure) Anemia (Acute) CKD (chronic kidney disease) stage 4, GFR 15-29 ml/min (Acute) Elevated BUN (Acute) Pulmonary hypertension (Chronic) Essential hypertension (Chronic) Cor pulmonale (chronic) (Chronic) Diabetes mellitus (Chronic 08/25/12) Atrial fibrillation (Chronic 08/25/12) Asthma (Chronic 08/25/12) Cirrhosis (Chronic) COPD (chronic obstructive pulmonary disease) (Chronic) Pleural effusion, right (Chronic) S/P R sided Pleur-X catheter by Dr. Cueva Cirrhosis (Chronic) Acute respiratory failure with hypoxia (Resolved) Cardiac pacemaker procedure (Resolved 10/31/12) Acute on chronic combined systolic and diastolic CHF (congestive heart failure) History of mitral valve replacement with mechanical valve On Coumadin therapy - follows with Dr. Araujo - goal INR 2.5-3.5 Dowd-Lee valve Hypertension Pacemaker Surgical History S/P placement of cardiac pacemaker Medtronic single-chamber permanent pacemaker. Unipolar lead. At [facility] Family History Other Diabetes mellitus HTN (hypertension) Social History marital status: Current Living Situation: Alone Current Living Situation Comment: has brought spouse, who has dementia, home from [place] Other Information That Helps Us Care for You: No Feels Safe at Home: Yes Safety Concerns: Feels Safe At This Time Smoking Status: Never smoker Hx Alcohol Use: No Hx Substance Use: No Beliefs That Will Affect Care: None Communication Ability: Effective Review of Systems Complete. Pertinent positives known history of present illness. Patient reports fairly regular bowel movements provided she has her daily coffee. She has been frustrated by the fluid restriction in forced during her hospitalization. Physical Exam 2 Vital Signs (Past 24 Hours): Last Vital Signs Temp 36.8 C 04/15/18 15:00 Pulse 60 04/15/18 15:00 Resp 18 04/15/18 15:00 BP 102/51 L 04/15/18 15:00 Pulse Ox 99 04/15/18 15:00 Physical Exam: She is alert and oriented x3. Mood affect appear normal. She answered all questions appropriately. HEENT: Sclerae are anicteric. Pupils are equal and reactive to light and accommodation. Extraocular movements were intact. Neuro: Cranial nerves intact Lungs: Normal respiratory effort. Bibasilar crackles. No expiratory wheezing. Cardiac: The rhythm was regular. Very distinct S1 with holodiastolic murmur The PMI was not markedly displaced on palpation. Abdomen: Distended fairly tense. Extremities: Severe lower extremity edema bilaterally. Skin: There are no rashes noted on examination today. Results & Data Laboratory Results Abnormal Lab Results 04/14/18 04/14/18 04/15/18 17:29 20:42 06:36 WBC RBC Hgb Hct MCV MCH MCHC RDW Std Deviation RDW Coeff of Marco Plt Count MPV PT 20.7 H INR 2.1 H Sodium Potassium Chloride Carbon Dioxide Anion Gap BUN Creatinine Est Cr Clr Drug Dosing Est GFR ( Amer) Est GFR (Non-Af Amer) BUN/Creatinine Ratio Glucose POC Glucose 128 H 149 H Calcium 04/15/18 04/15/1819 06:36 06:36 07:55 WBC 4.92 RBC 2.75 L Hgb 8.1 L Hct 25.6 L MCV 93.1 MCH 29.5 MCHC 31.6 L RDW Std Deviation 67.1 H RDW Coeff of Marco 19.7 H Plt Count 142 MPV 8.9 PT INR Sodium 128 L Potassium 4.5 Chloride 94 L Carbon Dioxide 26 Anion Gap 8.0 BUN 50 H Creatinine 3.44 H D Est Cr Clr Drug Dosing 14.2 Est GFR ( Amer) 14.3 Est GFR (Non-Af Amer) 12.4 BUN/Creatinine Ratio 14.5 Glucose 78 POC Glucose 81 Calcium 8.2 L 04/15/18 14:09 WBC RBC Hgb Hct MCV MCH MCHC RDW Std Deviation RDW Coeff of Marco Plt Count MPV PT INR Sodium Potassium Chloride Carbon Dioxide Anion Gap BUN Creatinine Est Cr Clr Drug Dosing Est GFR ( Amer) Est GFR (Non-Af Amer) BUN/Creatinine Ratio Glucose POC Glucose 75 Calcium Diagnostic Findings Chest x-ray obtained today did not reveal any evidence of pulmonary edema. She did have pleural effusions. Echocardiogram performed in May 2017 revealed preserved LV systolic function with severe left ventricular hypertrophy in elevated gradients across the mechanical mitral valve. She had severe pulmonary hypertension right ventricular failure. _ (1) Atrial fibrillation Atrial fibrillation type: chronic Qualified Code(s): I48.2 - Chronic atrial fibrillation
[2018-04-15] MEDS: EZETIMIBE 10 MG TABLET PO SCH (20:21)
--- NOTE | 2018-04-15 20:31 | Hospitalist Progress Note ---
Date of Service April 15, 2018 Assessment & Plan (1) End stage renal disease: now on hemodialysis via permcath M//, to transition to //Fri schedule at d/c. s/p HD today. successfully obtaining nearly 4 L of fluid each HD session oddly, despite numerous HD sessions this admission, she has gained weight & peripheral edema has not improved. hopefully weights in computer are simply not accurate. I am hopeful with time her volume status will gradually improve. appreciate nephrology assistance. cardiology consultation also appreciated. (2) Acute on chronic right-sided congestive heart failure: continue BB. continue dialysis for volume control. consulted Dr. Tapia for any additional recommendations re: complex heart disease. (3) H/O mitral valve replacement with mechanical valve: INR goal 2.5 to 3.5 cont coumadin INR subtherapeutic but considerable fluctuations this entire stay no changes - simply repeat INR am (4) Hyponatremia: due to ESRD, cirrhosis, CHF. has become chronic - has had low Na since early fall 2017. no symptoms from hyponatremia. cont to follow (5) Acute on chronic anemia: s/p multiple units of PRBCs this admission. Hb goal is 7.5 or higher in light of numerous cardiac conditions. cbc in am for stability the frequent PRBC requirement is likely due to ongoing GI bleeding - perhaps AVM ? patient repeatedly has declined endoscopic eval including capsule endoscopy. s/p IV iron again today on HD (6) Pulmonary hypertension: will need O2 at d/c. (7) Diabetes mellitus: controlled w/ current regimen. (8) Cirrhosis: likely due to chronic cor pulmonale. this contributes to her volume overloaded state. previous ammonia levels have been acceptable. cont BB. cont HD for volume control. (9) Atrial fibrillation: paced. cont coumadin. cont metoprolol. cont digoxin. (10) Pleural effusion, right: chronic pleurX catheter is in place. daily drain. (11) DVT prophylaxis: coumadin (12) Discharge planning issues: spoke with Olga Lidia from case management insurance auth approved for [facility] I held off on d/c due to pt's complain of dyspnea obtained chest x-ray - my reading - appears stable/rather unchanged relative to previous x-rays I spoke with Dr. Patel - y[facility] HD catheter site can be removed at this time hopefully d/c tomorrow to [facility] Subjective saw the pt while she was getting dialysis UF goal was 3.8 L today she stated "why am I always so short of breath? And why do I have a cough?" she says she has had both symptoms "since I came here" but she has not mentioned these symptoms recently she is anxious about d/c she has been accepted by [facility] and insurance auth has been approved Constitutional: no anorexia Cardiovascular: + edema; no chest pain, no orthopnea and no paroxysmal nocturnal dyspnea Gastrointestinal: no abdominal pain Physical Exam 2 Vital Signs (Past 24 Hours): Last Vital Signs Temp 36.8 C 04/15/18 15:00 Pulse 60 04/15/18 15:00 Resp 18 04/15/18 15:00 BP 102/51 L 04/15/18 15:00 Pulse Ox 99 04/15/18 15:00 Constitutional: + frail appearing; no acute distress ENMT: external ear and nose normal, oropharynx normal Respiratory: Auscultation: + diminished lung sounds (bases); no wheezes Cardiovascular: Rate/Rhythm: regular rate and regular rhythm Heart Sounds: normal S1, normal S2 and + murmur (2/6 LLSB) Vessels: + JVD (to the jaw ), normal peripheral pulses, posterior tibial pulses present and dorsalis pedis pulses present Extremities: + edema (severe - from the feet to the hips - likely element of lymphedema) Gastrointestinal (Abdomen): Inspection/Auscultation: + abdomen distended ( mildly tympanic -- no change from prior exams) and normal bowel sounds Percussion/Palpation: + hepatomegaly and + ascites; abdomen nontender, no guarding and abdomen not rigid Psychiatric: Orientation: alert and oriented x 3 Affect: + depressed affect Mood: + depressed mood Results & Data Laboratory Results Laboratory Results - last 24 hr 04/14/18 04/15/18 04/15/18 20:42 06:36 06:36 WBC 4.92 RBC 2.75 L Hgb 8.1 L Hct 25.6 L MCV 93.1 MCH 29.5 MCHC 31.6 L RDW Std Deviation 67.1 H RDW Coeff of Marco 19.7 H Plt Count 142 MPV 8.9 PT 20.7 H INR 2.1 H Sodium Potassium Chloride Carbon Dioxide Anion Gap BUN Creatinine Est Cr Clr Drug Dosing Est GFR ( Amer) Est GFR (Non-Af Amer) BUN/Creatinine Ratio Glucose POC Glucose 149 H Calcium 04/15/18 04/15/18 04/15/18 06:36 07:55 14:09 WBC RBC Hgb Hct MCV MCH MCHC RDW Std Deviation RDW Coeff of Marco Plt Count MPV PT INR Sodium 128 L Potassium 4.5 Chloride 94 L Carbon Dioxide 26 Anion Gap 8.0 BUN 50 H Creatinine 3.44 H D Est Cr Clr Drug Dosing 14.2 Est GFR ( Amer) 14.3 Est GFR (Non-Af Amer) 12.4 BUN/Creatinine Ratio 14.5 Glucose 78 POC Glucose 81 75 Calcium 8.2 L 04/15/18 04/15/18 17:14 20:04 WBC RBC Hgb Hct MCV MCH MCHC RDW Std Deviation RDW Coeff of Marco Plt Count MPV PT INR Sodium Potassium Chloride Carbon Dioxide Anion Gap BUN Creatinine Est Cr Clr Drug Dosing Est GFR ( Amer) Est GFR (Non-Af Amer) BUN/Creatinine Ratio Glucose POC Glucose 108 H 113 H Calcium _ (1) Diabetes mellitus Chronic kidney disease stage: stage 4 (severe) Diabetes mellitus complication detail: with chronic kidney disease Diabetes mellitus complication status: with kidney complications Diabetes mellitus intermodal customer service insulin use: with intermodal customer service use Diabetes mellitus macular edema: Diabetes mellitus type: type 2 Diabetic retinopathy severity: Laterality: Proliferative retinopathy type: Qualified Code(s): E11.22 - Type 2 diabetes mellitus with diabetic chronic kidney disease; N18.4 - Chronic kidney disease, stage 4 (severe); 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
[2018-04-15] MEDS: POLYETHYLENE (MIRALAX) 17 GM PACK PO PRN (21:44)
[2018-04-15] MEDS: diazePAM 5 MG TABLET PO PRN (22:41)
[2018-04-16] MEDS: LEVOTHYROXINE SODIUM 175 MCG TABLET PO SCH (06:09)
[2018-04-16 08:18] LABS: Hematocrit (blood only) 25.5 % (37-47); Hemoglobin 7.9 g/dL (12.0-16.0); Mean Corpuscular Volume 94.8 fL (80-100); Mean Platelet Volume 9.5 fL (7.4-10.4); Platelet Count 160 K/uL (130-400); RDW Coefficient of Variation 19.6 % (11.5-14.5); RDW Standard Deviation 68.5 fL (36.4-46.3); Red Blood Count 2.69 M/uL (4.2-5.4); White Blood Count 4.09 K/uL (4.8-10.8)
[2018-04-16] MEDS ORDERED: SODIUM CHLORIDE 0.9% 1000ML 1,000 ML IV PRN (08:29)
[2018-04-16 08:34] LABS: INR 2.1 (0.9-1.1); Prothrombin Time 19.9 Seconds (9.0-12.0)
[2018-04-16 08:44] LABS: BUN Creatinine Ratio 12.7 (10-20); Calcium 8.5 mg/dl (8.5-10.1); Creatinine Clr Calc Pharmacy 16.8 ml/min; Est GFR (African American) 17.8; Est GFR (Non-African American) 15.4; Potassium 4.4 mmol/L (3.5-5.1)
[2018-04-16] MEDS ORDERED: IRON SUCROSE 100 MG in SYRINGE 0 ML IV ONE (09:00)
[2018-04-16] MEDS ORDERED: EPOETIN ALFA 10,000 UNITS/ML VIAL IV SCH (09:00)
[2018-04-16] MEDS ORDERED: SODIUM CHLORIDE 0.9% 250 ML IV PRN (09:06)
[2018-04-16] MEDS: ACETAMINOPHEN 325 MG TAB PO PRN (09:12)
[2018-04-16] MEDS: NEPHROCAPS PO SCH (09:13)
[2018-04-16] MEDS: PANTOprazole 40 MG TAB PO SCH (09:13)
[2018-04-16] MEDS: CETIRIZINE HCL 10 MG TABLET PO SCH (09:14)
[2018-04-16] MEDS: POLYETHYLENE (MIRALAX) 17 GM PACK PO PRN (09:14)
[2018-04-16] MEDS: INSULIN ASPART 100 UNITS/ML 3 ML PEN SC SCH ×2 (09:16→12:41)
[2018-04-16] MEDS: DICLOFENAC SOD 1% GEL 100 GM TUBE EXT SCH ×2 (09:17→12:43)
[2018-04-16] MEDS: TROSPIUM ~ ORDER AWAITING ACTION SCH (09:17)
[2018-04-16] MEDS: INSULIN GLARGINE 100 UNIT/ML VIAL SC SCH (09:22)
--- NOTE | 2018-04-16 09:37 | Nephrology Progress Note ---
Date of Service April 16, 2018 Assessment & Plan (1) End stage renal disease: Mrs. Morales was admitted to [facility] for evaluation of weakness and tense LE swelling limiting her ability to ambulate. She has severe pulmonary HTN resulting in R heart failure and cardiac cirrhosis. She has a chronic R Pleur- x catheter in place. Diuretic therapy was met with worsening renal insufficiency and progressive azotemia. HD started on to aid in controlling volume status. -- HD today in order to transition patient to TTS schedule. Orders have been entered into EMR and HD RN notified (2) Anemia: Medical hx includes chronic anemia requiring IV iron and BINH therapy. -- FOBT positive x 1. GI recommendations reviewed. Patient has declined endoscopy -- Iron saturation 22% w/ ferritin 102. Will order 100 mg IV iron w/ HD today -- Hgb 7.9 this am. Will transfuse 1 U PRBC w/ HD today. HD RN and primary service notified (3) Chronic kidney disease-mineral and bone disorder: -- On Calcitriol 0.25 mcg 3 times a week and renal vitamin daily (4) Nutrition disorder: -- Increased dietary protein intake encouraged. (5) Discharge planning issues: -- Plan transfer to [facility] w/ outpatient HD at [facility]. Subjective Mrs. Morales was seen in her hospital room this morning. She complains of persistent LE swelling. She voices no other medical concerns. Cardiovascular: + edema (improving); no chest pain, no dyspnea at rest and no palpitations Hematologic / Lymphatic: + easy bleeding and + easy bruising Physical Exam 2 Vital Signs (Past 24 Hours): Last Vital Signs Temp 36.6 C 04/16/18 07:00 Pulse 81 04/16/18 07:00 Resp 18 04/16/18 07:00 BP 124/55 L 04/16/18 07:00 Pulse Ox 94 04/16/18 07:00 Constitutional: + obese (chronically ill appearing) Eyes: PERRL, conjunctivae normal, anicteric sclerae Neck: trachea midline, no thyromegaly Respiratory: no respiratory distress Auscultation: + rales (at the bases bilaterally) Cardiovascular: Rate/Rhythm: regular rate Vessels: + JVD (to the angle of the jaw while seated upright) Extremities: + edema (tense bilateral LE edema ) Gastrointestinal (Abdomen): Inspection/Auscultation: + abdomen distended and normal bowel sounds Results & Data Laboratory Results Laboratory Tests 04/16/18 07:43 WBC 4.09 L Hgb 7.9 L Hct 25.5 L Plt Count 160 Laboratory Tests 04/16/18 07:43 Sodium 132 L Potassium 4.4 Chloride 98 Carbon Dioxide 26 BUN 36 H Creatinine 2.87 H D Glucose 80 _ (1) Anemia Anemia type: unspecified type Bone marrow failure anemia type: Chronic kidney disease stage: Folate deficiency anemia type: Hemolytic anemia type: Iron deficiency anemia type: Other causes of anemia: Vitamin B12 deficiency anemia type: Qualified Code(s): D64.9 - Anemia, unspecified
[2018-04-16] MEDS: METOPROLOL SUCC 50MG EXT REL TAB PO SCH (12:33)
[2018-04-16] MEDS: DIGOXIN 0.125 MG TAB PO SCH (12:34)
[2018-04-16] MEDS: TRIAMCINOLONE ACET 0.1% CR 15 GM TUBE EXT SCH ×2 (12:34→13:41)
[2018-04-16] MEDS: SACCHAROMYCES BOULARDII 250 MG CAP PO SCH (12:34)
[2018-04-16] MEDS: NYSTATIN POWDER 15GM BTL EXT SCH ×2 (13:37→13:41)
[2018-04-16] MEDS ORDERED: BISACODYL 10 MG SUPP PR STA (13:40)
[2018-04-16] MEDS ORDERED: WARFARIN SOD 2 MG TAB PO SCH (16:00)
[2018-04-16] MEDS: WARFARIN SOD 4 MG TAB PO SCH (16:18)
--- NOTE | 2018-04-24 05:49 | Discharge Summary ---
Date of Service date of admission - March 25, 2018 date of discharge - April 16, 2018 Admission HPI Per Admitting Provider Mrs. Morales is a 77 year old female with history of stage IV CKD w/ baseline creatinine of 2.0 (EGFR 28 cc/min). She also suffers from severe pulmonary HTN and right-sided congestive heart failure (chronic cor pumonale) along with cardiac cirrhosis and mechanical mitral valve on chronic coumadin. She presented to the [facility] ED on 03/25 for evaluation of weakness, weight gain, and tense LE edema. She also suffers from chronic anemia with baseline range of 7.5 to 8.5. However, on the am of admission, a blood draw in the office revealed a hemoglobin of 5.9. She was therefore admitted for acute/chronic cor pulmonale and acute/chronic anemia. Principal Diagnosis development of ESRD now on hemodialysis Discharge Exam Constitutional + frail appearing; no acute distress ENMT external ear and nose normal, oropharynx normal Respiratory Auscultation: + diminished lung sounds (bases) and + rales (faint, bases); no wheezes Cardiovascular Rate/Rhythm: regular rate and regular rhythm Heart Sounds: normal S1, normal S2 (mechanical valve closure sound) and + murmur (2/6 LLSB) Vessels: + JVD (to the jaw ), normal peripheral pulses, posterior tibial pulses present and dorsalis pedis pulses present Extremities: + edema (severe - from the feet to the hips - likely element of lymphedema) Gastrointestinal (Abdomen) Inspection/Auscultation: + abdomen distended (mildly tympanic -- no change from prior exams) and normal bowel sounds Percussion/Palpation: + hepatomegaly and + ascites; abdomen nontender, no guarding and abdomen not rigid Skin right IJ permcath insertion site clean, intact, no bleeding; former right groin dialysis catheter site - tiny (<5mm) sized hematoma present, no signs of superimposed infection Psychiatric Orientation: alert and oriented x 3 Affect: + depressed affect Discharge Data Allergies Allergy/AdvReac Type Severity Reaction Status Date / Time Penicillins Allergy Severe anaphylaxis Verified 04/01/18 09:26 30yrs ago, also broke out with sores diltiazem Allergy Unknown unknown Verified 03/25/18 14:30 levofloxacin Allergy Unknown UNKNOWN Verified 03/25/18 14:30 moxifloxacin Allergy Unknown UNKNOWN Verified 03/25/18 14:30 aspirin AdvReac Intermediate increased Verified 03/25/18 14:30 bleeding (on warfarin) doxycycline AdvReac Intermediate GI SYMPTOMS Verified 03/25/18 14:30 atorvastatin AdvReac Unknown & Crestor Verified 03/25/18 14:30 = muscle aches/pains Bactrim AdvReac Unknown CONFUSION Verified 11/10/17 17:54 nortriptyline AdvReac Unknown choking on Verified 03/25/18 14:30 food NSAIDS (Non-Steroidal AdvReac Unknown AVOID PER Verified 03/25/18 14:30 Anti-Inflamma [address] HICKS - [id number] quinidine AdvReac Unknown flu-like Verified 03/25/18 14:30 symptoms sulfamethoxazole AdvReac Unknown CONFUSION Verified 03/25/18 14:30 trimethoprim AdvReac Unknown CONFUSION Verified 03/25/18 14:30 clonidine AdvReac Unknown Verified 03/25/18 14:30 hydrocodone AdvReac Unknown Verified 03/25/18 14:30 Consultations 1. nephrology - Bryant Wong MD 2. vascular surgery - Teodoro Titus MD 3. hematology - Oneil Kaminski DO 4. cardiology - Sarthak Tapia MD 5. PT, OT 6. [facility] Procedures Performed 1. Operation Date: 03/27/18 15:20 Insertion of Temporary Dialysis Catheter, Ultrasound Localization of Right Femoral Vein, Fluoroscopy for Comfirmation - Teodoro Titus MD 2. Operation Date: 03/30/18 11:10 Insertion of Perm Catheter, Right Internal Jugular Approach, Ultrasound Localization of Right Internal Jugular Vein, Fluroscopy for Positioning; Removal of Temporary Dialysis Catheter Right Groin; Moderate Sedation From 1203 to 1230 - Teodoro Titus MD 3. Operation Date: 04/06/18 11:20 Exploration of Wound for Control of Bleeding (right internal jugular permcath site) - Teodoro Titus MD 4. PRBCs x 9 units 5. multiple hemodialysis sessions Hospital Course (1) End stage renal disease: The patient presented with massive volume overload in the setting of advancing chronic kidney disease, chronic cor pulmonale, and cardiac cirrhosis. Attempts at diuresis with IV diuretics in the first 48 hours of her hospitalization led to a prompt rise in her creatinine (from 2.7 to 3) and a less than robust clinical response to diuresis. For that reason Dr. Bryant Wong was consulted from [facility]. A very lengthy discussion was held between Mrs. Morales and Dr. Wong regarding the need for initiation of hemodialysis. In the past Mrs. Morales had refused dialysis. However, during this hospitalization, she made it clear she was not ready to pursue hospice/ palliative care and therefore voiced she wanted to start hemodialysis. Dr. Teodoro Titus from vascular surgery was subsequently consulted. On 03/27/18 he placed a temporary dialysis catheter in the right groin and later that night she started her first dialysis treatment. Several days later the temporary catheter was pulled and Dr. Titus placed a permcath in the right internal jugular. She was dialyzed via this catheter for the remainder of her stay. The nephrology team successfully removed about 4 liters of fluid each dialysis session during this protracted hospitalization. At discharge the plan is for a Friday//Friday dialysis schedule at the [facility]. Her hospital stay was complicated by bleeding from both the temporary dialysis catheter and the permcath. She indeed needed PRBCs intermittently around the time of her bleeding. Dr. Titus took Mrs. Morales back to the OR to explore the permcath site and found just minimal bleeding during that procedure. Several yecenia were placed during that procedure and these were removed prior to discharge to [facility]. The patient's volume status significantly improved during her stay with serial hemodialysis. She still has lower extremity edema, however, and I suspect she has an element of chronic lymphedema. She was counseled that she would always have this edema. (2) Acute on chronic right-sided congestive heart failure: Seen by Dr. Sarthak Tapia from cardiology for her complex cardiac issues. He agreed with continued use of beta jose roberto and dialysis for volume control. She will need follow-up with Dr. David Lunsford, her primary prep manager, shortly after discharge. (3) H/O mitral valve replacement with mechanical valve: INR goal 2.5 to 3.5. INR fluctuated considerably this entire stay. INR on day of discharge was 2.1. She was advised to have a follow-up INR within 3 days of discharge to ensure stability. She will take 4mg of coumadin daily at time of discharge. (4) Hyponatremia: due to ESRD, cirrhosis, CHF. This is a chronic issue since early fall 2017. no symptoms from hyponatremia. discharge sodium level was 132. (5) Acute on chronic anemia: s/p multiple units of PRBCs this admission (9 units in total). She has multiple antibodies and thus the blood has to prepared specially in [place]. Hb goal is 7.5 or higher in light of numerous cardiac conditions. The frequent PRBC requirement is likely due to ongoing GI bleeding - perhaps an AVM? Patient repeatedly has declined endoscopic evaluation including capsule endoscopy. She received multiple runs of IV iron while hospitalized. Discharge hemoglobin was 7.9. Again baseline hemoglobin is about 7.5 to 8.5. She was see in consult by Dr. Oneil Kaminski, her primary aircraft systems technician. Both Dr. Kaminski and Dr. Wong administered procrit on several occasions as well. (6) Pulmonary hypertension: With development of chronic hypoxic respiratory failure. Now on home O2, 2-3 liters, continuously. (7) Diabetes mellitus: controlled with current regimen of lantus & novolog. (8) Cirrhosis: likely due to chronic cor pulmonale. this contributes to her volume overloaded state. previous ammonia levels have been acceptable. cont Beta jose roberto. cont HD for volume control. (9) Atrial fibrillation: paced most times on monitoring. cont coumadin. cont metoprolol. cont digoxin. (10) Pleural effusion, right: chronic pleurX catheter is in place. daily drain. fluid is transudative from her ESRD and CHF. (11) Discharge planning issues: the patient ultimately was agreeable to placement at [facility]. however, the patient reported that her was ultimately going to be placed at [facility] and she was hopeful that she could some day end up at [facility] to be able to be with her . (12) UTI (urinary tract infection): Treated with a course of antibiotics with resolution. (13) Depression: Patient adamantly denies depression but on most visits to her room she often spent MUCH time discussing numerous psychosocial issues. She has a flat affect on most days as well. Strongly advise outpatient counseling and/or initiation of antidepressant. She does take chronic valium on a PRN basis for sleep/anxiety. (14) Hypothyroidism: Most recent TSH was normal. Continue synthroid 175mcg daily. Total Time Total Time Spent Total Time Spent (In Minutes): 45 Total Time Includes: Examination of the Patient, Discharge Planning, Medication Reconciliation and Communication With Other Providers Discharge Plan Discharge Items Patient Disposition: Transfer [facility] Reason For Visit: SYMPTOMATIC ANEMIA Discharge Diagnosis: Development of end-stage renal disease - now requiring hemodialysis. Symptomatic anemia with need for multiple units of blood. Right- sided congestive heart failure. "Cardiac" cirrhosis. Discharge Goals: Diagnostic testing Activity: Resume your previous activity Activity Comment: as tolerated Non-emergency contact: Tomographic Tech and Relay Checker Call non-emergency contact if: you have any medication questions, your symptoms worsen and your temperature is above 100.5 Diet: Carb Consistent or DM2 and Dialysis Renal Fluids: 1500ml (6 cups) Addtl Provider Instructions: From Tariq Bradley - Hospitalist - 1. check fingerstick blood sugars before meals and at bedtime. 2. 2-3 liters of [place] oxygen at ALL TIMES. Titrate to keep o2 sats 90-94%. 3. Fluid restrict to 1500cc/day. 4. Hemodialysis Friday//Friday at [facility] with next scheduled session on 04/18/18. 5. Check INR, CBC, and BMP on 04/18/18. Ok to draw these labs while at hemodialysis. 6. Minimum WEEKLY INR, possibly twice weekly, due to highly fluctuating INR levels. INR GOAL is 2.5 to 3.5 due to mechanical valve. 7. Strongly consider psychology consultation/counseling for anxiety and depression. Alternative is cash application representative/pastoral consult. 8. Follow-up - * see Dr. David Lunsford or any [facility] provider within 1 week; diagnosis - cor pulmonale * see nephrology at [facility] on 04/18/18; if she does not see the vegetable packer on 04/18/18 please schedule a formal office visit with [facility] (Dr. Bryant Wong) within 5-7 days 9. Return to [facility] if - * fevers over 100.5 degrees * worsening shortness of breath * worsening oxygen requirement beyond baseline of 2-3 liters * rapidly increasing weight * any other concerns 10. Check daily weights on standing scale, if possible. Prescriptions: New B complex with C#20-folic acid [Renal Caps] 1 mg Capsule 1 cap PO DAILY Qty: 30 RF: 2 calcitriol 0.25 mcg Capsule 0.25 mcg PO MoWeFr@0900 Qty: 30 RF: 2 Continue levothyroxine [Synthroid] 175 mcg Tablet 175 mcg PO QAM RF: 0 metoprolol succinate [Toprol XL] 100 mg Tablet Extended Release 24 Hr 100 mg PO DAILY RF: 0 cyanocobalamin (vitamin B-12) [Vitamin B-12] 1,000 mcg Tablet 1,000 mcg PO DAILY RF: 0 fexofenadine [Vickie Allergy] 180 mg Tablet 180 mg PO DAILY RF: 0 montelukast [Singulair] 10 mg Tablet 10 mg PO DAILY RF: 0 digoxin 125 mcg Tablet 125 mcg PO DAILY RF: 0 pyridoxine (vitamin B6) 100 mg Tablet 100 mg PO DAILY RF: 0 ezetimibe [Zetia] 10 mg Tablet 10 mg PO HS RF: 0 Saccharomyces boulardii [Florastor] 250 mg Capsule 250 mg PO DAILY RF: 0 cholecalciferol (vitamin D3) [Vitamin D3] 1,000 unit Tablet 1,000 unit PO TID RF: 0 diclofenac sodium [Voltaren] 1 % Gel 1 applic Topical QID PRN (Reason: PAIN) RF: 0 ipratropium-albuterol 0.5 mg-3 mg(2.5 mg base)/3 mL solution for nebulization 3 ml INH QID PRN (Reason: Shortness Of Breath) RF: 0 pantoprazole 40 mg Tablet,Delayed Release (Dr/Ec) 40 mg PO QAM Qty: 30 RF: 0 ranitidine HCl 150 mg Tablet 150 mg PO BID Qty: 60 RF: 0 lidocaine 5 % Adhesive Patch,Medicated 1 patch Transdermal QAM Qty: 1 RF: 0 glucosamine-chondroitin [Osteo Bi-Flex] 250-200 mg Tablet 1 tab PO TID RF: 0 diazepam 5 mg Tablet 5 mg PO BID PRN (Reason: Anxiety) Qty: 30 RF: 0 Changed insulin glargine 100 unit/mL solution 12 unit subcut AMPM Qty: 1 RF: 0 hydrocortisone 1 % Ointment 1 applic EXT QID PRN (Reason: Dry Skin) Qty: 15 RF: 0 warfarin 4 mg tablet 4 mg PO DAILY Qty: 30 RF: 2 insulin aspart U-100 [Novolog U-100 Insulin aspart] 100 unit/mL Solution 1 unit SUBCUT AC Qty: 1 RF: 0 Discontinued gemfibrozil 600 mg Tablet 600 mg PO BID17 RF: 0 trospium 20 mg Tablet 20 mg PO DAILY RF: 0 hydralazine 25 mg tablet 25 mg PO BID RF: 0 bumetanide 1 mg Tablet 4 mg PO QPM RF: 0 metolazone 5 mg Tablet 5 mg PO 3XWK PRN (Reason: weight gain>2lbs in 24 hrs) Qty: 30 RF: 5 potassium chloride 20 mEq Tablet,Er Particles/Crystals 20 meq PO BID Qty: 60 RF: 0 warfarin 3 mg tablet 3 mg PO 4XWK RF: 0 bumetanide 1 mg Tablet 6 mg PO QAM RF: 0 Stand-Alone Forms: [facility] Discharge Orders: Discharge Order (Routine); Ordered 04/16/18 Ordered By: Tariq Bradley Skilled Items Patient informed of condition?: Yes DNR: Yes Discharge Level of Care: Skilled Communicable Disease: No Discharge Prognosis: Stable Admission Data Admit Date/Time: 03/25/18 14:54 Attending Provider: Tariq Bradley Admit Provider: Thomas Hall Primary Care Provider: Phoenix Klein III Other Providers: Thomas Hall ; Oneil Kaminski V ; Bryant Wong ; Teodoro Titus Lorella G ; Faustina King ; Anne Marie Awan ; Eliseo Conklin ; Lucas Middleton ; Megan Curtis ; Lynda Parra ; Arslan Maldonado ; Eddie Lozada ; Lizz Koch ; Itzel Guardado ; Nalini Sandhu ; Yusra Lee ; Lucas Ritter ; Han Tapia Service: Telemetry Medical Other Interventions: Discharge Summary Assessment (RN) Last Done: 04/16/18 16:38 Pending Studies at Discharge: No DC Date/Time DO NOT enter until pt leaves facility: 04/16/18 17:00
== END 2018-04-16 17:00 | DRG 811 ==
LOC: ED 12:18 → SUATTDRO 14:54 → 2N 14:54 → 4W 04-09 06:38

== ENCOUNTER 2018-10-04 14:54 | Inpatient (IN) ==
--- NOTE | 2018-10-04 15:24 | XRay Report ---
XR chest 1V portable CLINICAL HISTORY: Dyspnea COMPARISON STUDY: 09/24/2018 FINDINGS: Cardiomegaly. Prior median sternotomy and valve replacement. Permanent cardiac pacemaker. Good position. Mild increase in prominence of pulmonary vasculature. Pleural thickening and loculated fluid componen ts lateral right hemithorax considered similar. Mild bilateral hilar fullness unchanged. IMPRESSION: Mild congestive heart failure The above report was generated using voice recognition software. It may contain grammatical, syntax or spelling errors. Electronically signed by: Zak Olson M.D. 10/04/2018 3:23 PM
[2018-10-04 16:21] LABS: Basophils # (auto) 0.03 K/uL (0-0.2); Basophils % (auto) 0.4 %; Eosinophils # (auto) 0.14 K/uL (0-0.5); Eosinophils % (auto) 2.1 %; Hematocrit (blood only) 27.9 % (37-47); Hemoglobin 8.5 g/dL (12.0-16.0); Immature Granulocytes # (auto) 0.02 K/uL (0.00-0.02); Immature Granulocytes % (auto) 0.3 %; Lymphocytes # (auto) 0.69 K/uL (1.2-3.4); Lymphocytes % (auto) 10.3 %; Mean Corpuscular Hgb Conc 30.5 g/dL (32-36); Mean Corpuscular Volume 96.2 fL (80-100); Mean Platelet Volume 9.9 fL (7.4-10.4); Monocytes # (auto) 1.87 K/uL (0.11-0.59); Neutrophils # (auto) 3.92 K/uL (1.4-6.5); Neutrophils % (auto) 58.9 %; Platelet Count 217 K/uL (130-400); RDW Coefficient of Variation 18.2 % (11.5-14.5); RDW Standard Deviation 64.1 fL (36.4-46.3); White Blood Count 6.67 K/uL (4.8-10.8)
[2018-10-04 16:43] LABS: Partial Thromboplastin Ratio 1.6; Partial Thromboplastin Time 44.3 Seconds (21.0-31.0); Prothrombin Time 50.1 Seconds (9.0-12.0)
[2018-10-04 16:56] LABS: Albumin Globulin Ratio 0.6 (0.9-2); Albumin Level 2.9 gm/dl (3.4-5.0); BUN Creatinine Ratio 10.3 (10-20); Bilirubin,Total 0.8 mg/dl (0.2-1); Creatinine Clr Calc Pharmacy 9.5 ml/min; Est GFR (African American) 8.7; Est GFR (Non-African American) 7.5; Globulin 4.8 gm/dl (2.5-4.0); Magnesium 2.5 mg/dl (1.8-2.4); Potassium 5.7 mmol/L (3.5-5.1); Total Protein 7.7 gm/dl (6.4-8.2); Troponin I 0.021 ng/ml (0-0.045)
[2018-10-04 16:59] LABS: INR 5.5 (0.9-1.1)
[2018-10-04] MEDS ORDERED: ALBUT/IPRATROP 3MG/0.5MG NEB 3 ML VIAL NEB STA (17:27)
[2018-10-04] MEDS ORDERED: FUROSEMIDE 40 MG/4 ML VIAL IV STA (18:07)
--- NOTE | 2018-10-04 19:05 | History & Physical Report ---
Date of Service October 04, 2018 Assessment & Plan (1) End stage renal disease: -Admit the patient to telemetry -Typically gets HD on MWF, patient reports getting a full session last Friday -Volume overload secondary to this as well as combined acute on chronic right- sided congestive heart failure, chronic cor pulmonale, severe pulmonary hypertension -Patient received Lasix IV 40 mg in the ER, she has not typically had significant diuresis with this medication, likely will need IV Bumex so will order BID IV to start in morning. -Nephrology consulted, for dialysis -Strict I/os -Fluid restriction of 1500 ml/d -BNP elevated at time of admission at 10,428 -Currently requiring 8L via oximask, baseline of 2-3 L O2 via NC. (2) Acute on chronic right-sided congestive heart failure: - Continue diuresis as above - Consult cardiology given the patients multiple cardiac comorbidities likely playing a part in her volume overload. - Follows with Dr. Tapia as an outpt - Last echo completed May 2017 with preserved EF of 60%. severe concentric left ventricular hypertrophy. Mechanical mitral valve, moderate to severe tricuspid regurg, severe elevated right ventricular systolic pressure -Repeat 2D echo if cardiology would like this, will hold off for now-we will continue diuresis for symptom improvement (3) Pulmonary hypertension: - Severe (4) Cor pulmonale (chronic): - Contributing to pts significant shortness of breath (5) S/P placement of cardiac pacemaker: - Stable (6) H/O mitral valve replacement with mechanical valve: - INR goal of 3.5-3.5 - Supratherapeutic INR on admission of 5.5, holding coumadin tonight and follow am coags - Home dosing of 4 mg daily (7) Atrial fibrillation: - Permanent - holding coumadin tonight, INR 5.5, follow coags as above - Continue metoprolol succinate, digoxin (8) Chronic kidney disease-mineral and bone disorder: - Continue calcitriol 0.25 mcg daily 3x/wk, B12 1000 mg QPM, pyridoxine 100 mg QAM, renal caps 1 cap QAM (9) Anemia: - hgb = 8.5, appears to be of chronic disease vs iron deficiency - Hgb appears to be baseline - has received iron infusions in the past - Hx of Gi bleeds and requiring multiple transfusions in the past - none currently needed as hgb is acceptable considering cardiac issues as above. (10) COPD (chronic obstructive pulmonary disease): - Stable, does not appear to be an acute exacerbation - ABG was not obtained at time of admit (11) Asthma: - Chronic, no acute exacerbation (12) Cirrhosis: - Likely secondary to cor pulmonale and chronicity of the disease and has worsened current status causing fluid retention and shortness of breath - Check ammonia level with am labs - Continue metoprolol succinate 100 mg QAM - Volume control with HD as above (13) Diabetes mellitus: - Cont Lantus 10 U HS, glucose elevated at 161 upon admission - ISS with accuchecks achs (14) Hypothyroidism: - Cont levothyroxine 200 mcg daily (15) Depression: - Monitor during admission, difficult to assess in current state - Continue Valium 5 mg HS for sleep (16) Lumbar compression fracture: - Continue pain management with oxycodone 5-10 mg Q6H, tylenol (17) Hyponatremia: - On admission Na= 130, this appears to be around the pts baseline of 127- 130, follow am PRP (18) DVT prophylaxis: - teds, coumadin supratherapeutic, resume once INR stabilized Code: Full code, - during pts last admission in Apr 2018 she was listed as DNR, would recommend palliative consult once patient is more stabilized to determine goals of care. Dispo: From [facility], CM consulted, likely to be in the hospital for at least 2 days. History of Present Illness Primary Care Provider: [facility] This is a 78 yo F with PMHx of right-sided CHF (chronic cor pulmonale), HTN, HLD, severe pulmonary hypertension, s/p cardiac pacemaker, mechanical mitral valve on Coumadin, A. fib, ESRD on dialysis, cirrhosis, acute on chronic anemia, hyperkalemia, hypothyroidism, DM type II, asthma, lumbar compression fracture, history of falls. The patient recently had an AV fistula creation completed by Dr. Titus, she currently has been receiving dialysis MWF but right chest wall dialysis catheter. The patient presents from [facility] for acute worsening shortness of breath, but that this has been worsening over the last 3 weeks. She notes that her last full dialysis session was on Friday. She does have a cough with yellow/green mucus production and chronically wears 2-3 L O2 at baseline but is requiring a much higher O2 level to maintain saturations. She feels puffy in her hands and feet. She denies any hemoptysis. Patient reports she has little to no appetite, last bowel movement was yesterday. Patient does make a small amount of urine. She denies any chest pain, flutter, palpitation, fevers or chills. Allergies Allergy/AdvReac Type Severity Reaction Status Date / Time Penicillins Allergy Severe anaphylaxis Verified 10/04/18 15:28 30yrs ago, also broke out with sores rosuvastatin [From Crestor] Allergy Intermediate MUSCLE Verified 10/04/18 15:28 ACHES & PAINS diltiazem Allergy Unknown unknown Verified 10/04/18 15:28 levofloxacin Allergy Unknown UNKNOWN Verified 10/04/18 15:28 moxifloxacin Allergy Unknown UNKNOWN Verified 10/04/18 15:28 aspirin AdvReac Intermediate increased Verified 10/04/18 15:28 bleeding (on warfarin) atorvastatin AdvReac Intermediate MUSCLE Verified 10/04/18 15:28 ACHES & PAINS doxycycline AdvReac Intermediate GI SYMPTOMS Verified 10/04/18 15:28 nortriptyline AdvReac Intermediate choking on Verified 10/04/18 15:28 food quinidine AdvReac Intermediate flu-like Verified 10/04/18 15:28 symptoms sulfamethoxazole AdvReac Intermediate CONFUSION Verified 10/04/18 15:28 trimethoprim AdvReac Intermediate CONFUSION Verified 10/04/18 15:28 Bactrim AdvReac Unknown CONFUSION Verified 11/10/17 17:54 clonidine AdvReac Unknown Unknown Verified 10/04/18 15:28 hydrocodone AdvReac Unknown Unknown Verified 10/04/18 15:28 NSAIDS (Non-Steroidal AdvReac Unknown AVOID PER Verified 10/04/18 15:28 Anti-[address] HICKS - [id number] Home Medications Home Medications Medication Instructions Recorded Confirmed Type ranitidine HCl 150 mg PO BID #60 tab 01/01/18 10/04/18 Rx ipratropium-albuterol 0.5 mg-3 3 ml INH QID PRN 02/16/18 10/04/18 History mg(2.5 mg base)/3 mL nebulization soln Lantus Solostar U-100 Insulin 10 unit SUBCUT HS 05/04/18 10/04/18 History acetaminophen 650 mg PO Q12H PRN MDD 3 GRAMS/24 05/04/18 10/04/18 History HOURS. calcitriol 0.25 mcg PO 3XWK 05/04/18 10/04/18 History loratadine 10 mg PO QAM 05/04/18 10/04/18 History omeprazole 20 mg PO QAM 05/04/18 10/04/18 History Fleet Enema 1 dose NH UD PRN 05/29/18 10/04/18 History Florastor 250 mg PO QAM 05/29/18 10/04/18 History bisacodyl [Dulcolax (bisacodyl)] 10 mg NH DAILY PRN 05/29/18 10/04/18 History diclofenac sodium [Voltaren] 2 g TOPICAL QID 05/29/18 10/04/18 History digoxin 62.5 mcg PO QAM 05/29/18 10/04/18 History diphenhydramine HCl [Benadryl] 25 mg PO Q12 PRN 05/29/18 10/04/18 History ezetimibe [Zetia] 10 mg PO HS 05/29/18 10/04/18 History glucosamine-chondroitin [Osteo 1 tab PO TID 05/29/18 10/04/18 History Bi-Flex] magnesium hydroxide [Milk of 30 ml PO HS PRN 05/29/18 10/04/18 History Magnesia] metoprolol succinate 100 mg PO QAM 05/29/18 10/04/18 History montelukast [Singulair] 10 mg PO QAM 05/29/18 10/04/18 History warfarin 4 mg PO HS 06/13/18 10/04/18 History Nepro Carb Steady 0 ml PO HS 07/19/18 10/04/18 History Renal Caps 1 cap PO QAM 07/19/18 10/04/18 History cyanocobalamin (vitamin B-12) 1,000 mcg PO PM 07/19/18 10/04/18 History [Vitamin B-12] diazepam [Valium] 5 mg PO HS 07/19/18 10/04/18 History levothyroxine [Synthroid] 200 mcg PO .DAILY AT 1700 07/19/18 10/04/18 History oxycodone [Roxicodone] 5 mg PO Q6H PRN 07/19/18 10/04/18 History pyridoxine (vitamin B6) [Vitamin 100 mg PO QAM 07/19/18 10/04/18 History B-6] PreserVision AREDS 1 cap PO BID 08/20/18 10/04/18 History insulin lispro [Humalog U-100 1 sliding scale dose SUBCUT 08/20/18 10/04/18 History Insulin] USEASDIRECTD PRN oxycodone [OxyContin] 10 mg PO Q12H 08/20/18 10/04/18 History acetaminophen [Tylenol Arthritis 650 mg PO QAM 10/04/18 10/04/18 History Pain] dextromethorphan-guaifenesin 10 ml PO Q6H PRN 10/04/18 10/04/18 History [Robafen DM Cough] ondansetron HCl [Zofran] 4 mg PO Q8 PRN 10/04/18 10/04/18 History Past Med/Surg History Medical History Hyponatremia Per review of labs, baseline appears around 127-132. Anticoagulated Warfarin for Afib Compression fracture of lumbar vertebra Greater trochanteric bursitis of left hip Depression Iron deficiency Hypothyroidism CHF (congestive heart failure) Cardiomegaly and mild pulmonary vascular congestion noted on 09/08 CXR. Chronic diastolic CHF, noted to be "stable" at last cardiology office visit 07/28/18 -- "her volume status has been well managed by hemodialysis. Anemia (Acute) Pulmonary hypertension (Chronic) RVSP 71mmHg on 05/2017 echo (done for acute on chronic CHF) Cor pulmonale (chronic) (Chronic) Diabetes mellitus (Chronic 08/25/12) Atrial fibrillation (Chronic 08/25/12) Permanent, on Warfarin. Asthma (Chronic 08/25/12) Cirrhosis (Chronic) COPD (chronic obstructive pulmonary disease) (Chronic) Pleural effusion, right (Chronic) S/P R sided Pleur-X catheter by Dr. Cueva. Removed 09/08. Anxiety Hypertension Mechanical heart valve present Dowd Lee mitral valve, 1985. On home oxygen therapy 2LPM Pacemaker Medtronic. Most recent interrogation 07/28 at cardio office visit. Restrictions of the diet FLUID RESTRICTION: 1500ML/24 HOURS Rhinitis, allergic Surgical History History of mitral valve replacement with mechanical valve On Coumadin therapy - follows with Dr. Araujo - goal INR 2.5-3.5 Dowd-Lee valve S/P placement of cardiac pacemaker Medtronic single-chamber permanent pacemaker. Unipolar lead. At [facility] H/O partial mastectomy with lymph node biopsy. L arm restriction. History of carpal tunnel release History of hysterectomy S/P cholecystectomy Social History Preferred Language: Barbadian Visual Impairment: Limited Vocational Examiner Required: No Beliefs That Will Affect Care: None marital status: Current Living Situation: Shelter Current Living Situation Comment: has brought spouse, who has dementia, home from [place] Other Information That Helps Us Care for You: No Feels Safe at Home: Yes Safety Concerns: Feels Safe At This Time Smoking Status: Former smoker Do You Dip or Chew Tobacco: No Hx Alcohol Use: No Hx Substance Use: No Review of Systems Review of Systems: Constitutional: No fever, chills, sweats, + fatigue and weakness Eyes: No diplopia, no changes in vision ENT: No sore throat, tinnitus, or trouble swallowing Respiratory: + Shortness of breath, + dyspnea at rest and on exertion, + cough with green/yellow sputum Cardiovascular: No chest pain, palpitations, or flutter Abdomen: No pain, + distention, no constipation, No diarrhea, No nausea, No vomiting Musculoskeletal: No calf pain, No joint pain, No swelling Genitourinary : Makes little urine, no gross hematuria Neurologic: No numbness/tingling, + baseline difficulty with ambulation Psychiatric: No depression or anxiety symptoms Endocrine: + fatigue Integumentary: No itch, No rash Physical Exam Physical Exam: General: awake, alert, no apparent distress Head: Normocephalic, atraumatic ENT: PERRL, EOMI, no pharyngeal exudate, mucous membranes moist Chest: + R chest wall port, diminished breath sounds throughout, on 8 L via OxiMax Cardiac: Regular rate and rhythm, + mechanical valve click, + mild JVD, normal peripheral pulses Abdominal: NABS x 4 quadrants, + distended, + the tympanic to percussion, nonte nder to palpation, no rebound, guarding or tenderness Extremities: Chronic venous stasis changes, 2+ pitting peripheral edema of BLE, Puffy hands, no erythema, calfs nontender to palpation Psych: Normal mood and affect Neuro: AAO x 3, no motor deficits, speech is clear Skin: + Chronic venous stasis changes BLE, multiple areas of ecchymosis, no rash or erythema Constitutional: WD/WN, vitals as above Eyes: normal visual murray by confrontation and + anicteric sclerae Neck: normal visual inspection and trachea midline Respiratory: no respiratory distress Auscultation: + diminished lung sounds and + crackles; no wheezes Cardiovascular: Rate/Rhythm: regular rate and regular rhythm Gastrointestinal (Abdomen): Inspection/Auscultation: + abdomen distended Percussion/Palpation: abdomen nontender and + abdomen not soft Musculoskeletal: Head/Neck/Chest: normocephalic and head atraumatic Neg for peripheral LE edema, + pedal pulses Skin: no rashes, warm and dry Neurologic: awake; not confused Speech / Cognition: normal speech Psychiatric: A+Ox3, euthymic affect Lymphatic: Exam as done by Yahaira Gibbons, Results & Data Vital Signs (Past 12 Hours) Vital Signs Temp Pulse Pulse Resp BP BP Pulse Ox 10/04/18 18:34 60 17 103/52 L 97 10/04/18 17:42 62 20 101/66 100 10/04/18 17:36 64 18 100 10/04/18 16:37 60 20 102/50 L 100 10/04/18 16:15 60 18 99/48 L 100 10/04/18 15:21 100 10/04/18 14:53 36.7 C 77 27 H 105/57 L 93 Diagnostic Findings XR chest 1V portable CLINICAL HISTORY: Dyspnea COMPARISON STUDY: 09/24/2018 FINDINGS: Cardiomegaly. Prior median sternotomy and valve replacement. Permanent cardiac pacemaker. Good position. Mild increase in prominence of pulmonary vasculature. Pleural thickening and loculated fluid components lateral right hemithorax considered similar. Mild bilateral hilar fullness unchanged. IMPRESSION: Mild congestive heart failure ECG Additional Comments: 04-OCT-2018 15:11:25 [facility]-EDSTAT ROUTINE RETRIEVAL Ve ntricular-paced rhythm Abnormal ECG When compared with ECG of 19-JUL-2018 14:33, Premature ventricular complexes are no longer Present 25mm/s 10mm/mV 150Hz 9.0.8 12SL 241 BALDOM[place]: 10 Referred by: [facility] Unconfirmed Vent. rate 63 BPM NH interval * ms QRS duration 182 ms QT/QTc 430/440 ms P-R-T axes * 72 -11 Code Status & VTE Plan Code Status Full code-discussed with patient at bedside, she does not want to be placed on life support or go through heroic measures. Supervising Physician Co-Signing Physician Notes Pt seen and examined by me. Worsening SOB over the last few days. Had HD on Friday. Feeling improved s/p O2 and lasix dosing. "I can breathe again." Agree with HPI/ROS as noted by PA See above for my exam in PE section Agree with plan as outlined above CHF exacerbation in an HD pt INR elevated, holding coumadin HD M/W/F HyperK, mild and related to fluid status PG Care Time/CCT Total # of Minutes Spent Total Time Spent with Patient: Total time spent is greater than 50% in coordination of care (as documented) at patient's floor/unit and/or counseling patient: (1) Diabetes mellitus Chronic kidney disease stage: stage 4 (severe) Diabetes mellitus complication detail: with chronic kidney disease Diabetes mellitus complication status: with kidney complications Diabetes mellitus longterm insulin use: with longterm use Diabetes mellitus type: type 2 Qualified Code(s): E11.22 - Type 2 diabetes mellitus with diabetic chronic kidney disease; N18.4 - Chronic kidney disease, stage 4 (severe); 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.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 of insulin (2) Anemia Anemia type: unspecified type Qualified Code(s): D64.9 - Anemia, unspecified (3) Atrial fibrillation Atrial fibrillation type: chronic Qualified Code(s): I48.2 - Chronic atrial fibrillation (4) Hypothyroidism Hypothyroidism type: acquired Qualified Code(s): E03.9 - Hypothyroidism, unspecified (5) Cirrhosis Hepatic cirrhosis type: other cirrhosis Qualified Code(s): K74.69 - Other cirrhosis of liver (6) COPD (chronic obstructive pulmonary disease) COPD type: unspecified COPD Qualified Code(s): J44.9 - Chronic obstructive pulmonary disease, unspecified (7) Asthma Asthma complication type: uncomplicated Asthma persistence: unspecified Asthma severity: unspecified severity Qualified Code(s): J45.909 - Unspecified asthma, uncomplicated
[2018-10-04] MEDS ORDERED: MAGNESIUM HYDROXIDE SUSP 30 ML UDC PO PRN (19:20)
[2018-10-04] MEDS ORDERED: ONDANSETRON INJ 2 MG/ML 2 ML VIAL IV PRN (19:20)
[2018-10-04] MEDS ORDERED: ACETAMINOPHEN 325 MG TAB PO PRN ×2 (19:20)
[2018-10-04] MEDS ORDERED: ONDANSETRON 4 MG TAB PO PRN (19:20)
[2018-10-04] MEDS ORDERED: BISACODYL 10 MG SUPP PR PRN (19:20)
[2018-10-04] MEDS ORDERED: ALBUT/IPRATROP 3MG/0.5MG NEB 3 ML VIAL INH PRN (19:20)
[2018-10-04] MEDS ORDERED: DEXTROSE 50% 50 ML SYRINGE IV PRN (19:25)
[2018-10-04] MEDS ORDERED: GLUCOSE 40% GEL 15 GM TUBE PO PRN (19:25)
[2018-10-04] MEDS ORDERED: GLUCAGON FOR INJ 1 MG VIAL SQ PRN (19:25)
[2018-10-04] MEDS ORDERED: CARBOHYDRATES FOR HYPOGLYCEMIA PO PRN (19:25)
[2018-10-04] MEDS ORDERED: GLUCOSE 10 TABS/TUBE PO PRN (19:25)
[2018-10-04] MEDS: OXYCODONE HCL 10 MG TABCR (OXYCONTIN) PO SCH (20:43)
[2018-10-04] MEDS: DICLOFENAC SOD 1% GEL 100 GM TUBE EXT SCH (20:44)
[2018-10-04] MEDS: LEVOTHYROXINE SODIUM 200 MCG TABLET PO SCH (20:44)
[2018-10-04] MEDS: EZETIMIBE 10 MG TABLET PO SCH (20:45)
[2018-10-04] MEDS: diazePAM 5 MG TABLET PO SCH (20:47)
[2018-10-04] MEDS: INSULIN GLARGINE SOLOSTAR 100 UNITS/ML 3 ML PEN SQ SCH (20:47)
[2018-10-04] MEDS: INSULIN ASPART 100 UNITS/ML 3 ML PEN SC SCH (20:48)
[2018-10-04] MEDS ORDERED: NON-FORMULARY MEDICATION (Glucosamine-Chondroitin [Osteo Bi-Flex] 1 TAB) PO SCH (21:00)
--- NOTE | 2018-10-04 21:06 | Emergency Department Note ---
Entered by Rosalia Jordan acting as a scribe for Ben Hines MD ED Provider Note CHIEF COMPLAINT: Difficulty breathing HISTORY OF PRESENT ILLNESS: The patient is a 78 year old female who presents to the Emergency Room with complaints of difficulty breathing that started about two weeks ago but has gotten worse these past few days. . The patient noticed that her stomach was swelling a couple of days ago however there is no pain associated with this symptom. The patient also states when she gets edema her stomach occasionally swells but it effects her legs all the time. The patient also reports intermittent chest pain from a fall she had 3 weeks ago and back pain from a compression fracture. The patient also states that she has bloody stool which she relates to the fact she has been on iron. The patient is usually on 2 liters of oxygen but she report feeling better when EMS gave her maximum oxygen. The patient is on Coumadin. The patient was brought in by EMS who reports her being alert with a distended abdomen. EMS stated that they did not give her any medication during transport Pt denies LOC, headache, fevers, chills, diaphoresis, visual changes, neck pain, nausea, vomiting, abdominal pain, melena, hematochezia, numbness, weakness, lymphadenopathy, rash, or other complaints. REVIEW OF SYSTEMS: See HPI for pertinent positives and negatives. A total of ten systems were reviewed and were otherwise negative. PMHx/PSHx: Edema Fall Compression Fracture SOCIAL HISTORY: Patient lives at [facility]. PHYSICAL EXAM: GENERAL: Awake, alert, ill-appearing, in mild distress HENT: Normocephalic, atraumatic. Oropharynx unremarkable. EYES: PERRL. Normal conjunctiva. Sclera non-icteric. NECK: Inspection normal. Non-tender. Supple. No nuchal rigidity. FROM. No ma sses. RESPIRATORY: Clear to auscultation. No wheezes. No rales. Normal respiratory effort. CARDIAC: Normal rate. Normal rhythm. Systolic ejection murmurs. No rubs. Extremities warm and well perfused. Pulses equal. No JVD. GI: Soft, distended. Tight positive fluid wave. No tenderness to palpation. No rebound or guarding. No masses. RECTAL: Deferred. MUSCULOSKELETAL: Atraumatic. Dialysis catheter in the upper right chest. Chest examination reveals no tenderness. The back is symmetrical on inspection without obvious abnormality. There is no CVA tenderness to palpation. No joint edema. LOWER EXTREMITIES: Calves are equal size bilaterally and non-tender. 2+ edema. Chronic venous discoloration. NEURO: Normal sensorium. No sensory or motor deficits noted. SKIN: No rash or jaundice noted. EMERGENCY DEPARTMENT COURSE: 145: The patient was evaluated in room C10, and a complete history and physical examination were performed. 174: I reassessed the patient who is feeling better breathing nielsen. I discussed the patient's results with the her daughter who was in the room. 175: I paged out to Sonny Benz. 181: I reviewed the patient's case with Dr. Gibbons - [facility] Hospitalist. She will evaluate the patient for further management and admit. MEDICAL DECISION MAKING: C10 Prior records/ancillary studies reviewed. Triage Nursing notes reviewed and agree them. Additional history obtained from the EMS crew. The patient's history was concerning for shortness of breath. Differential diagnosis: Etiologies such as pneumonia, COPD, reactive airway disease, CHF, cardiac ischemia, pulmonary embolism, pneumothorax, musculoskeletal, infections, gastrointestinal, as well as others were entertained. Physical examination: Mildly dyspneic. The patient had distended abdomen. It was nontender. ER treatment provided: Supplemental oxygen Duo neb On reassessment the patient felt better. IV Lasix 40mg Diagnostic interpretation by me: The electrocardiogram was negative for pathologic change. The labs revealed moderate anemia on CBC. No leukocytosis. Chemistry panel revealed mild hyperkalemia. The patient's creatinine is elevated consistent with her end-stage renal disease. INR is supratherapeutic at 5.5. BNP is elevated consistent with CHF. Troponin normal. Urinalysis ordered but pending. Imaging studies: Chest x-ray mild congestive change noted. Consultation: A consultation was placed with the hospitalist. The case was discussed and diagnostics were reviewed. The patient was evaluated in the ER for further tr eatment. IMPRESSION: SOB End-stage renal disease CHF Supratherapeutic INR PLAN: Admitted The scribe's documentation has been prepared under my direction and personally reviewed by me in its entirety. I confirm that the note above accurately reflects all work, treatment, procedures, and medical decision making performed by me. Impression & Plan SOB (shortness of breath), CHF (congestive heart failure), Supratherapeutic INR Past Med/Surg History Medical History Hyponatremia Per review of labs, baseline appears around 127-132. Anticoagulated Warfarin for Afib Compression fracture of lumbar vertebra Greater trochanteric bursitis of left hip Depression Iron deficiency Hypothyroidism CHF (congestive heart failure) Cardiomegaly and mild pulmonary vascular congestion noted on 09/08 CXR. Chr onic diastolic CHF, noted to be "stable" at last cardiology office visit 07/28/18 -- "her volume status has been well managed by hemodialysis. Anemia (Acute) Pulmonary hypertension (Chronic) RVSP 71mmHg on 05/2017 echo (done for acute on chronic CHF) Cor pulmonale (chronic) (Chronic) Diabetes mellitus (Chronic 08/25/12) Atrial fibrillation (Chronic 08/25/12) Permanent, on Warfarin. Asthma (Chronic 08/25/12) Cirrhosis (Chronic) COPD (chronic obstructive pulmonary disease) (Chronic) Pleural effusion, right (Chronic) S/P R sided Pleur-X catheter by Dr. Cueva. Removed 09/08. Anxiety Hypertension Mechanical heart valve present Dowd Lee mitral valve, 1985. On home oxygen therapy 2LPM Pacemaker Medtronic. Most recent interrogation 07/28 at cardio office visit. Restrictions of the diet FLUID RESTRICTION: 1500ML/24 HOURS Rhinitis, allergic Surgical History History of mitral valve replacement with mechanical valve On Coumadin therapy - follows with Dr. Araujo - goal INR 2.5-3.5 Dowd-Lee valve S/P placement of cardiac pacemaker Medtronic single-chamber permanent pacemaker. Unipolar lead. At [facility] H/O partial mastectomy with lymph node biopsy. L arm restriction. History of carpal tunnel release History of hysterectomy S/P cholecystectomy Social History Preferred Language: Mongolian Visual Impairment: Limited Unit Clerk Required: No Beliefs That Will Affect Care: None marital status: Current Living Situation: Detention Current Living Situation Comment: has brought spouse, who has dementia, home from [facility] Other Information That Helps Us Care for You: No Feels Safe at Home: Yes Safety Concerns: Feels Safe At This Time Smoking Status: Former smoker Do You Dip or Chew Tobacco: No Hx Alcohol Use: No Hx Substance Use: No Results & Data Vital Signs Vital Signs - 24 hr 10/04/18 14:53 10/04/18 15:21 10/04/18 16:15 Temperature 36.7 C Temperature Source Oral Sepsis Recent Fever Within 48 Hours No Sepsis New/Unexplained Change in Mental Status No Sepsis Action Taken by Nursing No Action Required Pulse Rate 77 Pulse Rate [Left Finger] 60 Pulse Rhythm [Left Finger] Regular Pulse Strength [Left Finger] Normal Respiratory Rate 27 H 18 Respiratory Effort / Characteristics Labored Short of Breath Non-Labored Respiratory Depth Shallow Normal Respiratory Pattern Regular Blood Pressure 105/57 L Blood Pressure [Left Arm] 99/48 L Blood Pressure Mean 73 Blood Pressure Mean [Left Arm] 65 Blood Pressure Position [Left Arm] Sitting Pulse Oximetry 93 100 100 Oxygen Delivery Method Room Air Oxymask Oxymask Oxygen Flow Rate 10 10 10/04/18 16:37 10/04/18 17:36 10/04/18 17:42 Temperature Temperature Source Sepsis Recent Fever Within 48 Hours Sepsis New/Unexplained Change in Mental Status Sepsis Action Taken by Nursing Pulse Rate Pulse Rate [Left Finger] 60 64 62 Pulse Rhythm [Left Finger] Pulse Strength [Left Finger] Respiratory Rate 20 18 20 Respiratory Effort / Characteristics Non-Labored Spontaneous Respiratory Depth Normal Respiratory Pattern Regular Blood Pressure Blood Pressure [Left Arm] 102/50 L 101/66 Blood Pressure Mean Blood Pressure Mean [Left Arm] 67 77 Blood Pressure Position [Left Arm] Pulse Oximetry 100 100 100 Oxygen Delivery Method Oxymask Aerosol Mask Nebulizer Oxygen Flow Rate 10 10 Home Medications Current Medication List: was personally reviewed by me Laboratory Data Attestation: I reviewed the patient's lab results. Result diagrams: 10/04/18 16:12 10/04/18 16:12 Lab Results 10/04/18 10/04/18 10/04/18 Range/Units 16:12 16:12 16:12 WBC 6.67 (4.8-10.8) K/uL RBC 2.90 L (4.2-5.4) M/uL Hgb 8.5 L (12.0-16.0) g/dL Hct 27.9 L (37-47) % MCV 96.2 (80-100) fL MCH 29.3 (25-34) pg MCHC 30.5 L (32-36) g/dL RDW Std Deviation 64.1 H (36.4-46.3) fL RDW Coeff of Marco 18.2 H (11.5-14.5) % Plt Count 217 (130-400) K/uL MPV 9.9 (7.4-10.4) fL Immature Gran % (Auto) 0.3 % Neut % (Auto) 58.9 % Lymph % (Auto) 10.3 % Archuleta % (Auto) 28.0 % Eos % (Auto) 2.1 % Baso % (Auto) 0.4 % Immature Gran # (Auto) 0.02 (0.00-0.02) K/uL Neut # (Auto) 3.92 (1.4-6.5) K/uL Lymph # (Auto) 0.69 L (1.2-3.4) K/uL Archuleta # (Auto) 1.87 H (0.11-0.59) K/uL Eos # (Auto) 0.14 (0-0.5) K/uL Baso # (Auto) 0.03 (0-0.2) K/uL PT 50.1 H (9.0-12.0) Seconds INR 5.5 H (0.9-1.1) APTT 44.3 H (21.0-31.0) Seconds PTT Ratio 1.6 Sodium 130 L (136-145) mmol/L Potassium 5.7 H (3.5-5.1) mmol/L Chloride 91 L (98-107) mmol/L Carbon Dioxide 27 (21-32) mmol/L Anion Gap 12.0 H (3-11) BUN 54 H (7-18) mg/dl Creatinine 5.19 H* (0.6-1.2) mg/dl Est Cr Clr Drug Dosing 9.5 ml/min Est GFR ( Amer) 8.7 Est GFR (Non-Af Amer) 7.5 BUN/Creatinine Ratio 10.3 (10-20) Glucose 161 H (70-99) mg/dl Calcium 9.0 (8.5-10.1) mg/dl Magnesium 2.5 H (1.8-2.4) mg/dl Total Bilirubin 0.8 (0.2-1) mg/dl AST 36 (15-37) U/L ALT 28 (12-78) U/L Alkaline Phosphatase 183 H (45-117) U/L Troponin I 0.021 (0-0.045) ng/ml NT-Pro-B Natriuret Pep 69589 H (0-1800) pg/ml Total Protein 7.7 (6.4-8.2) gm/dl Albumin 2.9 L (3.4-5.0) gm/dl Globulin 4.8 H (2.5-4.0) gm/dl Albumin/Globulin Ratio 0.6 L (0.9-2) Administered Medications Diazepam (Valium) 5 mg PO HS NAY Stop: 11/03/18 20:59 Last Admin: 10/04/18 20:47 Dose: 5 mg Documented by: [id number] Diclofenac Sodium (Voltaren 1% Top) 1 appln EXT QID NAY Stop: 11/03/18 20:59 Last Admin: 10/04/18 20:44 Dose: 1 appln Documented by: [id number] Ezetimibe (Zetia) 10 mg PO HS NAY Stop: 11/03/18 20:59 Last Admin: 10/04/18 20:45 Dose: 10 mg Documented by: [id number] Insulin Aspart (Novolog Flexpen) 0 units SC ACHS NAY Stop: 11/03/18 20:59 Last Admin: 10/04/18 20:48 Dose: Not Given Documented by: [id number] Cosigned by: [id number] Insulin Glargine (Lantus Solostar Pen) 10 units SQ HS NAY Stop: 11/03/18 20:59 Last Admin: 10/04/18 20:47 Dose: 10 units Documented by: [id number] Cosigned by: [id number] Levothyroxine Sodium (Synthroid) 200 mcg PO DAILYBB NAY Stop: 11/03/18 19:19 Last Admin: 10/04/18 20:44 Dose: 200 mcg Documented by: [id number] Miscellaneous (Order Awaiting Action) 1 ea N/A DAILY NAY Stop: 11/03/18 20:59 Last Admin: 10/04/18 20:44 Dose: Not Given Documented by: [id number] Oxycodone HCl (Oxycontin) 10 mg PO Q12H NAY Stop: 10/18/18 19:59 Last Admin: 10/04/18 20:43 Dose: 10 mg Documented by: [id number] Discontinued Medications Albuterol (Duoneb) 3 ml NEB NOW STA Stop: 10/04/18 17:28 Last Admin: 10/04/18 17:36 Dose: 3 ml Documented by: [id number] Furosemide (Lasix) 40 mg IV NOW STA Stop: 10/04/18 18:08 Last Admin: 10/04/18 18:40 Dose: 40 mg Documented by: [id number] Imaging Data Radiologist's Impression: Radiology results as stated below per my review and the radiologist's interpretation: XR chest 1V portable CLINICAL HISTORY: Dyspnea COMPARISON STUDY: 09/24/2018 FINDINGS: Cardiomegaly. Prior median sternotomy and valve replacement. Permanent cardiac pacemaker. Good position. Mild increase in prominence of pulmonary vasculature. Pleural thickening and loculated fluid components lateral right hemithorax considered similar. Mild bilateral hilar fullness unchanged. IMPRESSION: Mild congestive heart failure The above report was generated using voice recognition software. It may contain grammatical, syntax or spelling errors. Electronically signed by: Zak Olson M.D. 10/04/2018 3:23 PM ECG Data Attestation: I personally reviewed and interpreted this ECG as follows: Indication: SOB/dyspnea Rate (beats per minute): 63 Rhythm: other (Paced rhythm) Findings: no PVC Discharge Plan Visit Data *Final* Discharge Date/Time: 10/04/18 18:34 Chief Complaint: Shortness of Breath/Dyspnea Stated Complaint: diff. breathing ED Provider: Ben Hines Discharge Problem: SOB (shortness of breath), CHF (congestive heart failure), Supratherapeutic INR Patient Disposition: Admitted As Inpatient Discharge Instructions Interventions: ED Discharge Assessment Last Done: 10/04/18 18:34 The scribe's documentation has been prepared under my direction and personally reviewed by me in its entirety. I confirm that the note above accurately reflects all work, treatment, procedures, and medical decision making performed by me.
[2018-10-05] MEDS: LEVOTHYROXINE SODIUM 200 MCG TABLET PO SCH (05:53)
[2018-10-05 06:26] LABS: Hematocrit (blood only) 27.7 % (37-47); Hemoglobin 8.3 g/dL (12.0-16.0); Mean Corpuscular Volume 95.5 fL (80-100); Mean Platelet Volume 9.7 fL (7.4-10.4); Platelet Count 202 K/uL (130-400); RDW Coefficient of Variation 17.9 % (11.5-14.5); RDW Standard Deviation 62.5 fL (36.4-46.3); White Blood Count 6.34 K/uL (4.8-10.8)
[2018-10-05 06:45] LABS: Prothrombin Time 52.4 Seconds (9.0-12.0)
[2018-10-05 06:49] LABS: INR 5.8 (0.9-1.1)
[2018-10-05 07:01] LABS: Albumin Globulin Ratio 0.6 (0.9-2); Albumin Level 2.7 gm/dl (3.4-5.0); BUN Creatinine Ratio 11.1 (10-20); Bilirubin,Total 0.8 mg/dl (0.2-1); Calcium 8.8 mg/dl (8.5-10.1); Creatinine Clr Calc Pharmacy 8.5 ml/min; Est GFR (African American) 7.6; Est GFR (Non-African American) 6.5; Globulin 4.5 gm/dl (2.5-4.0); Potassium 5.8 mmol/L (3.5-5.1); Total Protein 7.2 gm/dl (6.4-8.2)
--- NOTE | 2018-10-05 08:38 | Hospitalist Progress Note ---
Date of Service October 05, 2018 Assessment & Plan (1) End stage renal disease: -Admit the patient to telemetry -Typically gets HD on MWF, patient reports getting a session last Friday, but may have been shorter due to back pain limiting position -Volume overload secondary to this as well as combined acute on chronic right- sided congestive heart failure, chronic cor pulmonale, severe pulmonary hypertension -Patient received Lasix IV 40 mg in the ER, she has not typically had significant diuresis with this medicationuses IV Bumex BID IV -Nephrology consulted, for dialysis -Strict I/os -Fluid restriction of 1500 ml/d -BNP elevated at time of admission at 10,428 -Currently requiring 8L via oximask, baseline of 2-3 L O2 via NC. (2) Acute on chronic right-sided congestive heart failure: - Continue diuresis as above - Consult cardiology given the patients multiple cardiac comorbidities likely playing a part in her volume overload. - Follows with Dr. Tapia as an outpt - Last echo completed May 2017 with preserved EF of 60%. severe concentric left ventricular hypertrophy. Mechanical mitral valve, moderate to severe tricuspid regurg, severe elevated right ventricular systolic pressure -Repeat 2D echo if cardiology would like this, will hold off for now-we will continue diuresis for symptom improvement (3) Pulmonary hypertension: - Severe (4) Cor pulmonale (chronic): - Contributing to pts significant shortness of breath (5) S/P placement of cardiac pacemaker: - Stable (6) H/O mitral valve replacement with mechanical valve: - INR goal of 3.5-3.5 - Supratherapeutic INR on admission holding coumadin as inr remains up due with no bleeding will not use vitamin K (7) Atrial fibrillation: - Permanent - holding coumadin, follow coags as above - Continue metoprolol succinate, digoxin (8) Chronic kidney disease-mineral and bone disorder: - Continue calcitriol 0.25 mcg daily 3x/wk, B12 1000 mg QPM, pyridoxine 100 mg QAM, renal caps 1 cap QAM (9) Anemia: - hgb = 8.5, appears to be of chronic disease vs iron deficiency - Hgb appears to be baseline - has received iron infusions in the past - Hx of Gi bleeds and requiring multiple transfusions in the past - none currently needed as hgb is acceptable considering cardiac issues as above. (10) COPD (chronic obstructive pulmonary disease): - Stable, does not appear to be an acute exacerbation - ABG was not obtained at time of admit (11) Asthma: - Chronic, no acute exacerbation (12) Cirrhosis: - Likely secondary to cor pulmonale and chronicity of the disease and has worsened current status causing fluid retention and shortness of breath - Check ammonia level with am labs - Continue metoprolol succinate 100 mg QAM - Volume control with HD as above (13) Diabetes mellitus: - Cont Lantus 10 U HS, glucose elevated at 161 upon admission - ISS with accu checks achs (14) Hypothyroidism: - Cont levothyroxine 200 mcg daily (15) Depression: - Monitor during admission, difficult to assess in current state - Continue Valium 5 mg HS for sleep (16) Lumbar compression fracture: - Continue pain management with oxycodone 5-10 mg Q6H, tylenol (17) Hyponatremia: - On admission Na= 130, this appears to be chronic (18) DVT prophylaxis: - teds, coumadin supratherapeutic, resume once INR stabilized Code: Full code, - during pts last admission in Apr 2018 she was listed as DNR, would recommend palliative consult once patient is more stabilized to determine goals of care. Dispo: From [facility], CM consulted, likely to be in the hospital for at least 2 days. Subjective Ms. Morales appears slightly sedated she appears depressed she does have some increased swelling to her hands face and legs and also abdominal wall more than what I am used to .she is scheduled for dialysis on 10/05 she denies any medical indiscretion or dietary discretion Review of Systems Review of Systems: ROS: Fatigued and chronically ill No double vision blurry vision No problems with speech or swallowing No palpitations, chest pain or pressure Dyspnea on exertion No abdominal pain nausea vomiting diarrhea swelling to abdominal wall No burning urine urine frequency or changes in color No focal joint pain or muscle pain No skin rashes or oral lesions No unusual bruising or bleeding Chronic daily focused back pain lumbar spine area without radicular 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 No changes in memory or confusion Physical Exam Physical Exam: The patient appeared well nourished and chronically ill Vital signs as documented. Head exam is unremarkable. normocephalic, atraumatic Neck is with jugular venous distension, thyromegaly, or lymphademopathy Lungs are clear to auscultation and percussion. Cardiac exam reveals Rhythm is regular. greta Abdominal exam reveals normal bowel sounds, no masses, no organomegaly Extremities are moderately edematous Neurologic exam is A&Ox3, no focal deficits, strength is reduced Psychologically seems depressed Skin is warm Dry Results & Data Vital Signs (Past 12 Hours) Vital Signs Temp Pulse Pulse Resp BP Pulse Ox 10/05/18 07:14 36.6 C 65 19 93/56 L 96 10/05/18 05:56 102/60 95 10/05/18 03:41 36.6 C 60 18 89/49 L 100 10/05/18 00:00 60 10/04/18 23:40 36.6 C 60 19 91/50 L 100 PG Care Time/CCT Total # of Minutes Spent Total Time Spent with Patient: Total time spent is greater than 50% in coordination of care (as documented) at patient's floor/unit and/or counseling patient: (1) Diabetes mellitus Chronic kidney disease stage: stage 4 (severe) Diabetes mellitus complication detail: with chronic kidney disease Diabetes mellitus complication status: with kidney complications Diabetes mellitus intermediate card tender insulin use: with intermediate card tender use Diabetes mellitus type: type 2 Qualified Code(s): E11.22 - Type 2 diabetes mellitus with diabetic chronic kidney disease; N18.4 - Chronic kidney disease, stage 4 (severe); Z79.4 - senior living (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 of insulin (2) Anemia Anemia type: unspecified type Qualified Code(s): D64.9 - Anemia, unspecified (3) Atrial fibrillation Atrial fibrillation type: chronic Qualified Code(s): I48.2 - Chronic atrial fibrillation (4) Hypothyroidism Hypothyroidism type: acquired Qualified Code(s): E03.9 - Hypothyroidism, unspecified (5) Cirrhosis Hepatic cirrhosis type: other cirrhosis Qualified Code(s): K74.69 - Other cirrhosis of liver (6) COPD (chronic obstructive pulmonary disease) COPD type: unspecified COPD Qualified Code(s): J44.9 - Chronic obstructive pulmonary disease, unspecified (7) Asthma Asthma complication type: uncomplicated Asthma persistence: unspecified Asthma severity: unspecified severity Qualified Code(s): J45.909 - Unspecified asthma, uncomplicated
[2018-10-05] MEDS ORDERED: SODIUM CHLORIDE 0.9% 1000ML 1,000 ML IV PRN (08:51)
[2018-10-05] MEDS ORDERED: NON-FORMULARY MEDICATION (Acetaminophen [Tylenol Arthritis Pain] 650 MG) PO SCH (09:00)
[2018-10-05] MEDS: METOPROLOL SUCC 50MG EXT REL TAB PO SCH (09:02)
[2018-10-05] MEDS: OXYCODONE HCL 10 MG TABCR (OXYCONTIN) PO SCH ×2 (09:03→20:54)
[2018-10-05] MEDS: NEPHROCAPS PO SCH (09:03)
[2018-10-05] MEDS: PYRIDOXINE HCL 50 MG TAB PO SCH (09:03)
[2018-10-05] MEDS: DICLOFENAC SOD 1% GEL 100 GM TUBE EXT SCH ×4 (09:03→20:51)
[2018-10-05] MEDS: SACCHAROMYCES BOULARDII 250 MG CAP PO SCH (09:03)
[2018-10-05] MEDS: BUMETANIDE 2 MG in SYRINGE 0 ML IV SCH ×2 (09:03→20:49)
[2018-10-05] MEDS: LORATADINE 10 MG TAB PO SCH (09:03)
[2018-10-05] MEDS: CALCITRIOL 0.25 MCG CAPSULE PO SCH (09:03)
[2018-10-05] MEDS: MONTELUKAST SODIUM 10 MG TABLET PO SCH (09:03)
[2018-10-05] MEDS: PANTOprazole 40 MG TAB PO SCH (09:03)
--- NOTE | 2018-10-05 10:56 | Nephrology Consultation ---
Date of Consultation October 05, 2018 Assessment & Plan (1) End stage renal disease: 78-year-old female with end-stage renal disease on hemodialysis secondary to cardiorenal syndrome and severe pulmonary hypertension. Admitted to the hospital with progressive shortness of breath over 2 weeks, on admission found to be volume overloaded, hyperkalemic with supratherapeutic INR. --will schedule for dialysis today with 2 K bath and try to challenge her dry weight although may be difficult considering her blood pressure already running low --Epogen 37712 unit with dialysis today --avoid IV fluid, dose medication for GFR less than 10 --continue on renal vitamin once a day and start her on phosphate binder with meal as her outpatient regimen Will follow Thank you for allowing me to participate in your patient's care. It was a pleasure to see Crystal (2) Fluid overload: (3) Anemia: (4) SOB (shortness of breath): (5) Supratherapeutic INR: History of Present Illness Reason for Consultation: End-stage renal disease on hemodialysis. Attending Physician: Thomas Hall MD History of Present Illness Crystal has end-stage renal disease, has been on hemodialysis on Friday, Friday, Friday at [facility] for last few months. She has right IJ tunnel dialysis catheter and has a new AV fistula currently waiting to be matured. She presented to the hospital yesterday with progressive shortness of breath over last 2 weeks. Has been getting regular dialysis, last dialysis was Friday, had full treatment. On admission chest x-ray showed mild pulmonary vascular congestion, potassium was 5.8. Troponin was negative. Chest x-ray was not suggestive of pneumonia. Did not have any fever, chills or significant leukocytosis. She was given IV Lasix in ER however she was already feeling better with nasal cannula oxygen in ER. Currently she continues to have some shortness of breath however she feels better than before. She does have shortness of breath at baseline and uses home oxygen all the time. Has history of cardiomyopathy and chronic congestive heart failure. Allergies Allergy/AdvReac Type Severity Reaction Status Date / Time Penicillins Allergy Severe anaphylaxis Verified 10/04/18 15:28 30yrs ago, also broke out with sores rosuvastatin [From Crestor] Allergy Intermediate MUSCLE Verified 10/04/18 15:28 ACHES & PAINS diltiazem Allergy Unknown unknown Verified 10/04/18 15:28 levofloxacin Allergy Unknown UNKNOWN Verified 10/04/18 15:28 moxifloxacin Allergy Unknown UNKNOWN Verified 10/04/18 15:28 aspirin AdvReac Intermediate increased Verified 10/04/18 15:28 bleeding (on warfarin) atorvastatin AdvReac Intermediate MUSCLE Verified 10/04/18 15:28 ACHES & PAINS doxycycline AdvReac Intermediate GI SYMPTOMS Verified 10/04/18 15:28 nortriptyline AdvReac Intermediate choking on Verified 10/04/18 15:28 food quinidine AdvReac Intermediate flu-like Verified 10/04/18 15:28 symptoms sulfamethoxazole AdvReac Intermediate CONFUSION Verified 10/04/18 15:28 trimethoprim AdvReac Intermediate CONFUSION Verified 10/04/18 15:28 Bactrim AdvReac Unknown CONFUSION Verified 11/10/17 17:54 clonidine AdvReac Unknown Unknown Verified 10/04/18 15:28 hydrocodone AdvReac Unknown Unknown Verified 10/04/18 15:28 NSAIDS (Non-Steroidal AdvReac Unknown AVOID PER Verified 10/04/18 15:28 Anti-Inflamma CASE - [id number] Home Medications Home Medications Medication Instructions Recorded Confirmed Type ranitidine HCl 150 mg PO BID #60 tab 01/01/18 10/04/18 Rx ipratropium-albuterol 0.5 mg-3 3 ml INH QID PRN 02/16/18 10/04/18 History mg(2.5 mg base)/3 mL nebulization soln Lantus Solostar U-100 Insulin 10 unit SUBCUT HS 05/04/18 10/04/18 History acetaminophen 650 mg PO Q12H PRN MDD 3 GRAMS/24 05/04/18 10/04/18 History HOURS. calcitriol 0.25 mcg PO 3XWK 05/04/18 10/04/18 History loratadine 10 mg PO QAM 05/04/18 10/04/18 History omeprazole 20 mg PO QAM 05/04/18 10/04/18 History Fleet Enema 1 dose WI UD PRN 05/29/18 10/04/18 History Florastor 250 mg PO QAM 05/29/18 10/04/18 History bisacodyl [Dulcolax (bisacodyl)] 10 mg WI DAILY PRN 05/29/18 10/04/18 History diclofenac sodium [Voltaren] 2 g TOPICAL QID 05/29/18 10/04/18 History digoxin 62.5 mcg PO QAM 05/29/18 10/04/18 History diphenhydramine HCl [Benadryl] 25 mg PO Q12 PRN 05/29/18 10/04/18 History ezetimibe [Zetia] 10 mg PO HS 05/29/18 10/04/18 History glucosamine-chondroitin [Osteo 1 tab PO TID 05/29/18 10/04/18 History Bi-Flex] magnesium hydroxide [Milk of 30 ml PO HS PRN 05/29/18 10/04/18 History Magnesia] metoprolol succinate 100 mg PO QAM 05/29/18 10/04/18 History montelukast [Singulair] 10 mg PO QAM 05/29/18 10/04/18 History warfarin 4 mg PO HS 06/13/18 10/04/18 History Nepro Carb Steady 0 ml PO HS 07/19/18 10/04/18 History Renal Caps 1 cap PO QAM 07/19/18 10/04/18 History cyanocobalamin (vitamin B-12) 1,000 mcg PO PM 07/19/18 10/04/18 History [Vitamin B-12] diazepam [Valium] 5 mg PO HS 07/19/18 10/04/18 History levothyroxine [Synthroid] 200 mcg PO .DAILY AT 1700 07/19/18 10/04/18 History oxycodone [Roxicodone] 5 mg PO Q6H PRN 07/19/18 10/04/18 History pyridoxine (vitamin B6) [Vitamin 100 mg PO QAM 07/19/18 10/04/18 History B-6] PreserVision AREDS 1 cap PO BID 08/20/18 10/04/18 History insulin lispro [Humalog U-100 1 sliding scale dose SUBCUT 08/20/18 10/04/18 History Insulin] USEASDIRECTD PRN oxycodone [OxyContin] 10 mg PO Q12H 08/20/18 10/04/18 History acetaminophen [Tylenol Arthritis 650 mg PO QAM 10/04/18 10/04/18 History Pain] dextromethorphan-guaifenesin 10 ml PO Q6H PRN 10/04/18 10/04/18 History [Robafen DM Cough] ondansetron HCl [Zofran] 4 mg PO Q8 PRN 10/04/18 10/04/18 History Patient History Medical History Hyponatremia Per review of labs, baseline appears around 127-132. Anticoagulated Warfarin for Afib Compression fracture of lumbar vertebra Greater trochanteric bursitis of left hip Depression Iron deficiency Hypothyroidism CHF (congestive heart failure) Cardiomegaly and mild pulmonary vascular congestion noted on 09/08 CXR. Chronic diastolic CHF, noted to be "stable" at last cardiology office visit 07/28/18 -- "her volume status has been well managed by hemodialysis. Anemia (Acute) Pulmonary hypertension (Chronic) RVSP 71mmHg on 05/2017 echo (done for acute on chronic CHF) Cor pulmonale (chronic) (Chronic) Diabetes mellitus (Chronic 08/25/12) Atrial fibrillation (Chronic 08/25/12) Permanent, on Warfarin. Asthma (Chronic 08/25/12) Cirrhosis (Chronic) COPD (chronic obstructive pulmonary disease) (Chronic) Pleural effusion, right (Chronic) S/P R sided Pleur-X catheter by Dr. Cueva. Removed 09/08. Anxiety Hypertension Mechanical heart valve present Dowd Lee mitral valve, 1985. On home oxygen therapy 2LPM Pacemaker Medtronic. Most recent interrogation 07/28 at cardio office visit. Restrictions of the diet FLUID RESTRICTION: 1500ML/24 HOURS Rhinitis, allergic Surgical History History of mitral valve replacement with mechanical valve On Coumadin therapy - follows with Dr. Araujo - goal INR 2.5-3.5 Dowd-Lee valve S/P placement of cardiac pacemaker Medtronic single-chamber permanent pacemaker. Unipolar lead. At [facility] H/O partial mastectomy with lymph node biopsy. L arm restriction. 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 Other Information That Helps Us Care for You: No Feels Safe at Home: Yes Safety Concerns: Feels Safe At This Time Smoking Status: Former smoker Do You Dip or Chew Tobacco: No Hx Alcohol Use: No Hx Substance Use: No Review of Systems Review of Systems: All systems reviewed & are unremarkable except as noted in HPI & below Physical Exam Constitutional: + ill appearing and + frail appearing ENMT: external ear and nose normal, oropharynx normal Neck: trachea midline, no thyromegaly Respiratory: Auscultation: + diminished lung sounds and + rales Cardiovascular: Rate/Rhythm: regular rate and regular rhythm Heart Sounds: normal S1 and normal S2 Extremities: + edema and + AV fistula Gastrointestinal (Abdomen): Inspection/Auscultation: abdomen normal to inspection and normal bowel sounds Neurologic: moves all extremities and awake Psychiatric: Orientation: alert and oriented x 3 Affect: euthymic affect Mood: + depressed mood Results & Data Vital Signs (Past 12 Hours) Vital Signs Temp Pulse Pulse Resp BP Pulse Ox 10/05/18 07:14 36.6 C 65 19 93/56 L 96 10/05/18 05:56 102/60 95 10/05/18 03:41 36.6 C 60 18 89/49 L 100 10/05/18 00:00 60 10/04/18 23:40 36.6 C 60 19 91/50 L 100 (1) Fluid overload Hypervolemia type: unspecified Qualified Code(s): E87.70 - Fluid overload, unspecified (2) Anemia Anemia type: unspecified type Qualified Code(s): D64.9 - Anemia, unspecified
[2018-10-05] MEDS: INSULIN ASPART 100 UNITS/ML 3 ML PEN SC SCH ×5 (12:18→20:51)
--- NOTE | 2018-10-05 14:05 | Cardiology Consultation ---
Date of Consultation October 05, 2018 Assessment & Plan (1) Fluid overload: The patient was admitted with significant volume overload requiring urgent hemodialysis. Management per Nephrology. (2) Cor pulmonale (chronic): The patient has a longstanding history of severe pulmonary hypertension which has resulted in right ventricular dysfunction and chronic right-sided CHF. (3) Atrial fibrillation: Permanent atrial fibrillation stable on metoprolol succinate, digoxin, and warfarin. (4) H/O mitral valve replacement with mechanical valve: The patient had a Dowd-Lee mechanical prosthesis placed back in 1985. Normal function on her echocardiogram in May 2017. History of Present Illness Attending Physician: Thomas Hall MD History of Present Illness Mrs. Morales is a 78-year-old female with a complex past medical history was admitted earlier today with progressive dyspnea. Of note, the patient is well known to me from inpatient and outpatient settings. The patient was in her usual state of poor health until approximately 2-3 weeks ago when she began to note progressive exertional dyspnea. On presentation here, the patient was hyperkalemic, volume overloaded, at a supratherapeutic INR. Urgent dialysis will be performed today. The patient has a history of chronic diastolic CHF, severe pulmonary hypertension, and right-sided CHF related to her cor pulmonale. Most recent echocardiogram was performed in May 2017 which noted normal left trigger systolic function with an ejection fraction of 60%, severe LVH, a properly functioning mechanical mitral valve, moderate to severe tricuspid regurgitation, and severely elevated right ventricular systolic pressure. Currently, patient is resting comfortably in bed and without new complaints. PAST MEDICAL HISTORY: 1. Mitral valve replacement -- 1985 -- Dowd-Lee valve. 2. Nonobstructive coronary artery disease -- June 2006. 3. History of diastolic CHF. 4. Normal LV function - 60-65% -- December 2016. 5. Moderate LVH. 6. Severe pulmonary hypertension -- December 2016. 7. Right ventricular dysfunction/cor pulmonale-- December 2016. 8. Mild aortic insufficiency -- December 2016. 9. Permanent atrial fibrillation. 10. Hypertension. 11. VVI pacemaker - 1993, January 2009. 12. 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 13. Diabetes mellitus. 14. Diabetic neuropathy. 15. COPD. 16. Crohn's disease. 17. Chronic renal failure. 18. Esophageal reflux. 19. Hypothyroidism. 20. History of breast carcinoma -- status post lumpectomy. 21. History of GI bleeding -- colonoscopy biopsy site -- 2011. 22. History of pancreatitis. 23. Diffuse lipomas. 24. Cholecystectomy. 25. Hysterectomy. 26. Cirrhosis 27. Lumbar compression fracture SOCIAL HISTORY: . Resides at [facility] Does not use tobacco or alcohol. FAMILY HISTORY: Noncontributory. REVIEW OF SYSTEMS: A 10-point review of systems is negative except for that described above. Allergies Allergy/AdvReac Type Severity Reaction Status Date / Time Penicillins Allergy Severe anaphylaxis Verified 10/04/18 15:28 30yrs ago, also broke out with sores rosuvastatin [From Crestor] Allergy Intermediate MUSCLE Verified 10/04/18 15:28 ACHES & PAINS diltiazem Allergy Unknown unknown Verified 10/04/18 15:28 levofloxacin Allergy Unknown UNKNOWN Verified 10/04/18 15:28 moxifloxacin Allergy Unknown UNKNOWN Verified 10/04/18 15:28 aspirin AdvReac Intermediate increased Verified 10/04/18 15:28 bleeding (on warfarin) atorvastatin AdvReac Intermediate MUSCLE Verified 10/04/18 15:28 ACHES & PAINS doxycycline AdvReac Intermediate GI SYMPTOMS Verified 10/04/18 15:28 nortriptyline AdvReac Intermediate choking on Verified 10/04/18 15:28 food quinidine AdvReac Intermediate flu-like Verified 10/04/18 15:28 symptoms sulfamethoxazole AdvReac Intermediate CONFUSION Verified 10/04/18 15:28 trimethoprim AdvReac Intermediate CONFUSION Verified 10/04/18 15:28 Bactrim AdvReac Unknown CONFUSION Verified 11/10/17 17:54 clonidine AdvReac Unknown Unknown Verified 10/04/18 15:28 hydrocodone AdvReac Unknown Unknown Verified 10/04/18 15:28 NSAIDS (Non-Steroidal AdvReac Unknown AVOID PER Verified 10/04/18 15:[address] HICKS - [id number] Home Medications Home Medications Medication Instructions Recorded Confirmed Type ranitidine HCl 150 mg PO BID #60 tab 01/01/18 10/04/18 Rx ipratropium-albuterol 0.5 mg-3 3 ml INH QID PRN 02/16/18 10/04/18 History mg(2.5 mg base)/3 mL nebulization soln Lantus Solostar U-100 Insulin 10 unit SUBCUT HS 05/04/18 10/04/18 History acetaminophen 650 mg PO Q12H PRN MDD 3 GRAMS/24 05/04/18 10/04/18 History HOURS. calcitriol 0.25 mcg PO 3XWK 05/04/18 10/04/18 History loratadine 10 mg PO QAM 05/04/18 10/04/18 History omeprazole 20 mg PO QAM 05/04/18 10/04/18 History Fleet Enema [address] UD PRN 05/29/18 10/04/18 History Florastor 250 mg PO QAM 05/29/18 10/04/18 History bisacodyl [Dulcolax (bisacodyl)] [address] DAILY PRN 05/29/18 10/04/18 History diclofenac sodium [Voltaren] 2 g TOPICAL QID 05/29/18 10/04/18 History digoxin 62.5 mcg PO QAM 05/29/18 10/04/18 History diphenhydramine HCl [Benadryl] 25 mg PO Q12 PRN 05/29/18 10/04/18 History ezetimibe [Zetia] 10 mg PO HS 05/29/18 10/04/18 History glucosamine-chondroitin [Osteo 1 tab PO TID 05/29/18 10/04/18 History Bi-Flex] magnesium hydroxide [Milk of 30 ml PO HS PRN 05/29/18 10/04/18 History Magnesia] metoprolol succinate 100 mg PO QAM 05/29/18 10/04/18 History montelukast [Singulair] 10 mg PO QAM 05/29/18 10/04/18 History warfarin 4 mg PO HS 06/13/18 10/04/18 History Nepro Carb Steady 0 ml PO HS 07/19/18 10/04/18 History Renal Caps 1 cap PO QAM 07/19/18 10/04/18 History cyanocobalamin (vitamin B-12) 1,000 mcg PO PM 07/19/18 10/04/18 History [Vitamin B-12] diazepam [Valium] 5 mg PO HS 07/19/18 10/04/18 History levothyroxine [Synthroid] 200 mcg PO .DAILY AT 1700 07/19/18 10/04/18 History oxycodone [Roxicodone] 5 mg PO Q6H PRN 07/19/18 10/04/18 History pyridoxine (vitamin B6) [Vitamin 100 mg PO QAM 07/19/18 10/04/18 History B-6] PreserVision AREDS 1 cap PO BID 08/20/18 10/04/18 History insulin lispro [Humalog U-100 1 sliding scale dose SUBCUT 08/20/18 10/04/18 History Insulin] USEASDIRECTD PRN oxycodone [OxyContin] 10 mg PO Q12H 08/20/18 10/04/18 History acetaminophen [Tylenol Arthritis 650 mg PO QAM 10/04/18 10/04/18 History Pain] dextromethorphan-guaifenesin 10 ml PO Q6H PRN 10/04/18 10/04/18 History [Robafen DM Cough] ondansetron HCl [Zofran] 4 mg PO Q8 PRN 10/04/18 10/04/18 History Patient History Medical History Hyponatremia Per review of labs, baseline appears around 127-132. Anticoagulated Warfarin for Afib Compression fracture of lumbar vertebra Greater trochanteric bursitis of left hip Depression Iron deficiency Hypothyroidism CHF (congestive heart failure) Cardiomegaly and mild pulmonary vascular congestion noted on 09/08 CXR. Chronic diastolic CHF, noted to be "stable" at last cardiology office visit 07/28/18 -- "her volume status has been well managed by hemodialysis. Anemia (Acute) Pulmonary hypertension (Chronic) RVSP 71mmHg on 05/2017 echo (done for acute on chronic CHF) Cor pulmonale (chronic) (Chronic) Diabetes mellitus (Chronic 08/25/12) Atrial fibrillation (Chronic 08/25/12) Permanent, on Warfarin. Asthma (Chronic 08/25/12) Cirrhosis (Chronic) COPD (chronic obstructive pulmonary disease) (Chronic) Pleural effusion, right (Chronic) S/P R sided Pleur-X catheter by Dr. Cueva. Removed 09/08. Anxiety Hypertension Mechanical heart valve present Dowd Jesus mitral valve, 1985. On home oxygen therapy 2LPM Pacemaker Medtronic. Most recent interrogation 07/28 at cardio office visit. Restrictions of the diet FLUID RESTRICTION: 1500ML/24 HOURS Rhinitis, allergic Surgical History History of mitral valve replacement with mechanical valve On Coumadin therapy - follows with Dr. Araujo - goal INR 2.5-3.5 Dowd-Lee valve S/P placement of cardiac pacemaker Medtronic single-chamber permanent pacemaker. Unipolar lead. At [facility] H/O partial mastectomy with lymph node biopsy. L arm restriction. 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 HEENT exam is negative. Neck is supple with full carotid upstrokes. No obvious bruits. Jugular venous pressure is elevated to the angle of the jaw at 90 degrees. No thyromegaly. Cardiovascular exam reveals a regular rhythm with a 2/6 diastolic murmur heard along left sternal border and the apex. Lungs are clear without rales, rhonchi or wheezes. Abdomen is obese without bruits. Extremities reveal 3+ lower extremity edema. Results & Data Vital Signs (Past 12 Hours) Vital Signs Temp Pulse Pulse Resp BP Pulse Ox 10/05/18 12:00 36.5 C 68 18 98/60 L 98 10/05/18 11:30 36.5 C 68 18 98 10/05/18 10:34 98 10/05/18 08:00 62 10/05/18 07:14 36.6 C 65 19 93/56 L 96 10/05/18 05:56 102/60 95 10/05/18 03:41 36.6 C 60 18 89/49 L 100 Laboratory Results CBC notes a hemoglobin of 8.3, hematocrit 27.7, white count 6.3, platelet count of [id number]. Electrolytes notice sodium of 130, potassium 5.8, chloride 92, bicarb 28, BUN 64, and creatinine 5.79. Glucose is 103. INR is 5.8. Diagnostic Findings EKG notes ventricular pacing. Chest x-ray notes cardiomegaly and evidence of a pacemaker in left subclavicular region. (1) Atrial fibrillation Atrial fibrillation type: chronic Qualified Code(s): I48.2 - Chronic atrial fibrillation (2) Fluid overload Hypervolemia type: unspecified Qualified Code(s): E87.70 - Fluid overload, unspecified
[2018-10-05] MEDS: MoRPHine SULFATE 2 MG/ML CARP IV PRN (16:15)
[2018-10-05] MEDS: INSULIN GLARGINE SOLOSTAR 100 UNITS/ML 3 ML PEN SQ SCH (20:48)
[2018-10-05] MEDS: DIGOXIN 0.125 MG TAB PO SCH (20:49)
[2018-10-05] MEDS: EZETIMIBE 10 MG TABLET PO SCH (20:50)
[2018-10-05] MEDS: diazePAM 5 MG TABLET PO SCH (20:54)
[2018-10-05 22:08] LABS: Appearance Urine Turbid (Clear); Color Urine Yellow; Protein Urine 3+ (Negative)
[2018-10-05 22:09] LABS: Bilirubin Urine Negative (Negative); Blood Urine 3+ (Negative); Glucose Urine UA Negative (Negative); Ketones Urine Negative (Negative); Leukocyte Esterase Urine 3+ (Negative); Nitrite Urine Negative (Negative); Urobilinogen Urine Negative (Negative)
[2018-10-05 22:10] LABS: Bacteria Urine 2+ (Negative); Epithelial Cell Urine >30 /lpf (0-5); WBC Urine >30 /hpf (0-5)
[2018-10-06] MEDS: LEVOTHYROXINE SODIUM 200 MCG TABLET PO SCH (06:14)
[2018-10-06 06:33] LABS: Hemoglobin 8.1 g/dL (12.0-16.0); Mean Corpuscular Volume 96.8 fL (80-100); Platelet Count 179 K/uL (130-400); RDW Coefficient of Variation 17.9 % (11.5-14.5); RDW Standard Deviation 63.5 fL (36.4-46.3); Red Blood Count 2.79 M/uL (4.2-5.4); White Blood Count 7.52 K/uL (4.8-10.8)
[2018-10-06 07:01] LABS: INR 6.4 (0.9-1.1)
[2018-10-06 07:09] LABS: Albumin Globulin Ratio 0.6 (0.9-2); Albumin Level 2.6 gm/dl (3.4-5.0); BUN Creatinine Ratio 9.8 (10-20); Bilirubin,Total 0.9 mg/dl (0.2-1); Calcium 8.1 mg/dl (8.5-10.1); Creatinine Clr Calc Pharmacy 11.4 ml/min; Est GFR (African American) 10.9; Est GFR (Non-African American) 9.4; Globulin 4.5 gm/dl (2.5-4.0); Potassium 4.7 mmol/L (3.5-5.1); Total Protein 7.1 gm/dl (6.4-8.2)
[2018-10-06] MEDS ORDERED: PHYTONADIONE 5 MG TAB PO STA (08:11)
[2018-10-06] MEDS ORDERED: LACTULOSE SYRUP 30 GM/45 ML UDP PO STA (08:25)
[2018-10-06] MEDS: DICLOFENAC SOD 1% GEL 100 GM TUBE EXT SCH ×4 (09:16→19:59)
[2018-10-06] MEDS: SACCHAROMYCES BOULARDII 250 MG CAP PO SCH (09:17)
[2018-10-06] MEDS: PANTOprazole 40 MG TAB PO SCH (09:17)
[2018-10-06] MEDS: METOPROLOL SUCC 50MG EXT REL TAB PO SCH ×2 (09:17→12:59)
[2018-10-06] MEDS: MONTELUKAST SODIUM 10 MG TABLET PO SCH (09:18)
[2018-10-06] MEDS: LORATADINE 10 MG TAB PO SCH (09:18)
[2018-10-06] MEDS: NEPHROCAPS PO SCH (09:18)
[2018-10-06] MEDS: PYRIDOXINE HCL 50 MG TAB PO SCH (09:18)
[2018-10-06] MEDS: INSULIN ASPART 100 UNITS/ML 3 ML PEN SC SCH ×3 (09:21→19:59)
[2018-10-06] MEDS: OXYCODONE HCL 10 MG TABCR (OXYCONTIN) PO SCH ×2 (09:21→20:06)
[2018-10-06] MEDS ORDERED: SODIUM CHLORIDE 0.9% 1000ML 1,000 ML IV PRN (09:55)
[2018-10-06] MEDS ORDERED: EPOETIN ALFA 10,000 UNITS/ML VIAL IV SCH (10:00)
--- NOTE | 2018-10-06 10:36 | Nephrology Progress Note ---
Date of Service October 06, 2018 Assessment & Plan (1) End stage renal disease: 78-year-old female with end-stage renal disease on hemodialysis secondary to cardiorenal syndrome and severe pulmonary hypertension. Admitted to the hospital with progressive shortness of breath over 2 weeks, on admission found to be volume overloaded, hyperkalemic with supratherapeutic INR. Dialysis yesterday for hyperkalemia and volume overload. With try to challenge her UF however almost no UF was possible as her blood pressure kept dropping and needed to give normal saline repeatedly. This morning she seem significantly volume overloaded although her respiratory status seems to be relatively stable. She has been on metoprolol 100 mg daily for AFib, her rate seems to be well controlled. Discussed with Dr. Lunsford this morning regarding her cardiac medications as well as difficulty with UF with low blood pressure and overall volume overload. Decision was made to decrease metoprolol to 50 mg daily and start her on midodrine before dialysis. --will schedule for extra dialysis treatment today mainly for UF, give midodrine 10 mg p.o. x1 dose before dialysis treatment today and then continue on midodrine before each dialysis treatment. Decrease metoprolol to 50 mg p.o. daily. --avoid IV fluid, dose medication for GFR less than 10 --continue on renal vitamin once a day and start her on phosphate binder with meal as her outpatient regimen Will follow. Thank you for allowing me to participate in your patient's care. It was a pleasure to see Crystal (2) Fluid overload: (3) Anemia: (4) SOB (shortness of breath): (5) Supratherapeutic INR: Physical Exam Constitutional: + ill appearing and + frail appearing Neck: trachea midline, no thyromegaly Respiratory: Auscultation: + diminished lung sounds and + rales Cardiovascular: Rate/Rhythm: regular rate and regular rhythm Heart Sounds: normal S1 and normal S2 Extremities: + edema and + AV fistula Neurologic: moves all extremities and awake Psychiatric: Orientation: alert and oriented x 3 Affect: euthymic affect Mood: + depressed mood Results & Data Vital Signs (Past 12 Hours) Vital Signs Temp Pulse Pulse Resp BP Pulse Ox 10/06/18 07:38 36.9 C 67 20 113/54 L 96 10/06/18 04:00 36.6 C 66 19 90/44 L 98 10/06/18 00:15 60 07/22/19 23:32 36.6 C 64 19 87/50 L 97 (1) Fluid overload Hypervolemia type: unspecified Qualified Code(s): E87.70 - Fluid overload, unspecified (2) Anemia Anemia type: unspecified type Qualified Code(s): D64.9 - Anemia, unspecified
[2018-10-06] MEDS: BUMETANIDE 2 MG in SYRINGE 0 ML IV SCH ×2 (13:14→19:58)
--- NOTE | 2018-10-06 13:21 | Cardiology Progress Note ---
Date of Service October 06, 2018 Assessment & Plan (1) Fluid overload: Unfortunately, hemodialysis was difficult yesterday due to the patient's hypotension. The case has been discussed with Dr. Oswald. We plan to decrease her metoprolol succinate to [address] Oswald will administer midodrine before each dialysis session. Hopefully, she can have successful ultrafiltration performed today. (2) Cor pulmonale (chronic): Longstanding history of severe pulmonary hypertension which has resulted in right ventricular dysfunction and chronic right-sided CHF. (3) Atrial fibrillation: Permanent atrial fibrillation stable on metoprolol succinate, digoxin, and warfarin. (4) H/O mitral valve replacement with mechanical valve: The patient had a Dowd-Lee mechanical prosthesis placed back in 1985. Normal function on her echocardiogram in May 2017. Subjective The patient is resting comfortably bed without complaints of chest pain or dyspnea. Was unable to be effectively dialyzed yesterday due to hypotension. Physical Exam Physical Exam: In general is well-developed well-nourished white female in no acute distress. HEENT exam is negative. Neck is supple with full carotid upstrokes. No obvious bruits. Jugular venous pressure is elevated to the angle of the jaw at 90 degrees. No thyromegaly. Cardiovascular exam reveals a regular rhythm with a 2/6 diastolic murmur heard along left sternal border and the apex. Lungs are clear without rales, rhonchi or wheezes. Abdomen is obese without bruits. Extremities reveal 3+ lower extremity edema. Results & Data Vital Signs (Past 12 Hours) Vital Signs Temp Pulse Resp BP Pulse Ox 10/06/18 11:24 36.6 C 69 20 95/46 L 95 10/06/18 07:38 36.9 C 67 20 113/54 L 96 10/06/18 04:00 36.6 C 66 19 90/44 L 98 Laboratory Results CBC notes hemoglobin of 8.1, hematocrit 27.0, white count 7.52, platelet count [id number]. Electrolytes note a sodium of 131, potassium 4.7, chloride 95, bicarb 20, BUN 42, creatinine 4.28. INR is 6.4. Diagnostic Findings security monitor notes rate controlled atrial fibrillation. (1) Atrial fibrillation Atrial fibrillation type: chronic Qualified Code(s): I48.2 - Chronic atrial fibrillation (2) Fluid overload Hypervolemia type: unspecified Qualified Code(s): E87.70 - Fluid overload, unspecified
--- NOTE | 2018-10-06 13:50 | Hospitalist Progress Note ---
Date of Service October 06, 2018 Assessment & Plan (1) End stage renal disease: -continues on telemetry -Typically gets HD on MWF, unable to tolerate a full session 10/05 due to hypotension -Volume overload secondary to this as well as combined acute on chronic right- sided congestive heart failure, chronic cor pulmonale, severe pulmonary hypertension -uses IV Bumex BID IV -Nephrology consulted, for dialysis -Fluid restriction of 1500 ml/d -oximask, baseline of 2-3 L O2 via NC. (2) Acute on chronic right-sided congestive heart failure: - Consult cardiology follows with Dr. Tapia as an outpt - Last echo completed May 2017 with preserved EF of 60%. severe concentric left ventricular hypertrophy. Mechanical mitral valve, moderate to severe tricuspid regurg, severe elevated right ventricular systolic pressure -Repeat 2D echo if cardiology would like this, will hold off for now-we will continue diuresis for symptom improvement (3) Pulmonary hypertension: - Severe (4) Cor pulmonale (chronic): - Contributing to pts significant shortness of breath (5) S/P placement of cardiac pacemaker: - Stable (6) H/O mitral valve replacement with mechanical valve: - INR goal of 3.5-3.5 - Cpontinues with Supratherapeutic INR one dose of vitamin K (7) Atrial fibrillation: - Permanent - holding coumadin, follow coags as above - Continue metoprolol succinate, digoxin (8) Chronic kidney disease-mineral and bone disorder: - Continue calcitriol 0.25 mcg daily 3x/wk, B12 1000 mg QPM, pyridoxine 100 mg QAM, renal caps 1 cap QAM (9) Anemia: - hgb = 8.5, appears to be of chronic disease vs iron deficiency - Hgb appears to be baseline - has received iron infusions in the past - Hx of Gi bleeds and requiring multiple transfusions in the past - none currently needed as hgb is acceptable considering cardiac issues as above. (10) COPD (chronic obstructive pulmonary disease): - Stable, does not appear to be an acute exacerbation - ABG was not obtained at time of admit (11) Asthma: - Chronic, no acute exacerbation (12) Cirrhosis: - Likely secondary to cor pulmonale and chronicity of the disease and has worsened current status causing fluid retention and shortness of breath - Check ammonia level with am labs - Continue metoprolol succinate 100 mg QAM - Volume control with HD as above (13) Diabetes mellitus: - Cont Lantus 10 U HS, glucose elevated at 161 upon admission - ISS with accu checks achs (14) Hypothyroidism: - Cont levothyroxine 200 mcg daily (15) Depression: - Monitor during admission, difficult to assess in current state - Continue Valium 5 mg HS for sleep (16) Lumbar compression fracture: - Continue pain management with oxycodone 5-10 mg Q6H, tylenol (17) Hyponatremia: - chronic (18) DVT prophylaxis: - teds, coumadin supratherapeutic, resume once INR stabilized Code: dnr - during pts last admission in Apr 2018 she was listed as DNR, pursuing palliative consult to determine goals of care. Dispo: From [facility], CM consulted, likely to be in the hospital for at least 2 days. Subjective this pt is tearful and states " I want to " We did discuss hospice and she is agreeable to at least discussion, did not tolerate dialysis yesterday well, and will ask palliative care to see the patient today Review of Systems Review of Systems: ROS: pt is fatigued and falls asleep easily No problems with speech or swallowing No palpitations, chest pain or pressure dyspnea at rest and with exertion No abdominal pain nausea vomiting diarrhea abdomen is distended decreased urine output No focal joint pain or muscle pain No unusual bruising or bleeding persistent focal back pain Physical Exam Physical Exam: The patient appeared in moderate distress and markedly fatigued falling asleep easily Vital signs as documented. Head exam is unremarkable. normocephalic, atraumatic Neck is without jugular venous distension, thyromegaly, or lymphademopathy Lungs are diminished at bases Cardiac exam reveals Rhythm is regular. Abdominal exam reveals normal bowel sounds, no masses, no organomegaly Extremities are edematous Neurologic exam is A&Ox2, Psychologically seems depressed Skin is warm Dry Results & Data Vital Signs (Past 12 Hours) Vital Signs Temp Pulse Resp BP Pulse Ox 10/06/18 11:24 36.6 C 69 20 95/46 L 95 10/06/18 07:38 36.9 C 67 20 113/54 L 96 10/06/18 04:00 36.6 C 66 19 90/44 L 98 PG Care Time/CCT Total # of Minutes Spent Total Time Spent with Patient: Total time spent is greater than 50% in coordination of care (as documented) at patient's floor/unit and/or counseling patient: (1) Diabetes mellitus Chronic kidney disease stage: stage 4 (severe) Diabetes mellitus complication detail: with chronic kidney disease Diabetes mellitus complication status: with kidney complications Diabetes mellitus correction insulin use: with correction use Diabetes mellitus type: type 2 Qualified Code(s): E11.22 - Type 2 diabetes mellitus with diabetic chronic kidney disease; N18.4 - Chronic kidney disease, stage 4 (severe); Z79.4 - roasterman (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 of insulin (2) Anemia Anemia type: unspecified type Qualified Code(s): D64.9 - Anemia, unspecified (3) Atrial fibrillation Atrial fibrillation type: chronic Qualified Code(s): I48.2 - Chronic atrial fibrillation (4) Hypothyroidism Hypothyroidism type: acquired Qualified Code(s): E03.9 - Hypothyroidism, unspecified (5) Cirrhosis Hepatic cirrhosis type: other cirrhosis Qualified Code(s): K74.69 - Other cirrhosis of liver (6) COPD (chronic obstructive pulmonary disease) COPD type: unspecified COPD Qualified Code(s): J44.9 - Chronic obstructive pulmonary disease, unspecified (7) Asthma Asthma complication type: uncomplicated Asthma persistence: unspecified Asthma severity: unspecified severity Qualified Code(s): J45.909 - Unspecified asthma, uncomplicated
[2018-10-06] MEDS: MIDODRINE HCL 10 MG TAB PO SCH (14:37)
--- NOTE | 2018-10-06 16:50 | Palliative Care Consultation ---
Date of Consultation October 06, 2018 Assessment & Plan (1) Palliative care encounter: Met with patient to discuss goals of care-patient not ready at this time to transition to comfort care. Patient is a 78-year-old female with a past medical history significant for end- stage renal disease, severe pulmonary hypertension, acute on chronic diastolic heart failure, cor pulmonale, valvular heart disease-status post MVR, chronic A. fib, anemia, COPD, liver congestion, diabetes, hypothyroid, severe LVH and history of breast cancer who was admitted on 10/04 for increased shortness of breath that escalated 2 hours prior to admission. Patient also with back pain after a fall where she sustained a compression fracture approximately 3 weeks ago. Patient had an AV fistula placed on 09/22-she has been on hemodialysis via catheter in the right chest. Patient was unable to tolerate scheduled dialysis yesterday due to hypotension-patient required fluid resuscitation. Patient has also had times where she has not been able to tolerate dialysis due to her back pain. Patient currently with anasarca, on IV Bumex-with minimal response. Initiated discussion with patient regarding goals of care-asked about her prior statements about possibly discontinuing dialysis-patient stated they are going to try and dialyze her today. Discussed her multiple comorbidities-patient stated she was not ready to stop dialysis. Patient did name her son as her medical power of deputy attorney general-she did not want me to call him to report any of our discussion. Will need to follow and assist patient and son with medical decision making depending on how she tolerates dialysis. Patient is significantly fluid overlo aded with anasarca, pitting edema of the abdominal wall, abdomen is markedly distended. Patient with mild confusion-stated she has been a for approximately 4 months and that her in January. Will need input from nephrology and cardiology in regards to patient's ability to continue dialysis. Patient has minimal urine output-none in the past 15 hours. -Shortness of breath-did require 1 PRN IV morphine yesterday for shortness of breath, comfortable currently on 3 L O2 - end-stage renal disease-patient not tolerating dialysis-patient will require midodrine prior to attempt at dialysis today. Would appreciate input from nephrology regarding patient's prognosis -Acute on chronic CHF-patient with severe dilated LVH as well as severe pulmonary hypertension with cor pulmonale-all contributing to patient's fluid overload along with her end-stage renal disease -Coagulopathy-Coumadin has been held for 2 days-INR continues to increase Will continue to follow and assist with medical decision making-patient hopeful that she can receive dialysis today. (2) SOB (shortness of breath): (3) End stage renal disease: (4) Acute on chronic right-sided congestive heart failure: History of Present Illness Reason for Consultation: Address goals of care-patient making statements that she is not sure she wants to continue dialysis. Requesting Physician: Dr. Hall Attending Physician: Thomas Hall MD History of Present Illness Patient is a 78-year-old female with a past medical history significant for end- stage renal disease, severe pulmonary hypertension, acute on chronic diastolic heart failure, cor pulmonale, valvular heart disease-status post MVR, chronic A. fib, anemia, COPD, liver congestion, diabetes, hypothyroid, severe LVH and hist ory of breast cancer who was admitted on 10/04 for increased shortness of breath that escalated 2 hours prior to admission. Patient also with back pain after a fall where she sustained a compression fracture approximately 3 weeks ago. Patient had an AV fistula placed on 09/22-she has been on hemodialysis via catheter in the right chest. Patient was unable to tolerate scheduled dialysis yesterday due to hypotension-patient required fluid resuscitation. Patient has also had times where she has not been able to tolerate dialysis due to her back pain. Patient currently with anasarca, on IV Bumex-with minimal response. Initiated discussion with patient regarding goals of care-asked about her prior statements about possibly discontinuing dialysis-patient stated they are going to try and dialyze her today. Discussed her multiple comorbidities-patient stated she was not ready to stop dialysis. Patient did name her son as her medical power of deputy attorney general-she did not want me to call him to report any of our discussion. Will need to follow and assist patient and son with medical decision making depending on how she tolerates dialysis. Patient is significantly fluid overloaded with anasarca, pitting edema of the abdominal wall, abdomen is markedly distended. Patient with mild confusion-stated she has been a for approximately 4 months and that her in January. Will need input from nephrology and cardiology in regards to patient's ability to continue dialysis. Patient has minimal urine output-none in the past 15 hours. Allergies Allergy/AdvReac Type Severity Reaction Status Date / Time Penicillins Allergy Severe anaphylaxis Verified 10/04/18 15:28 30yrs ago, also broke out with sores rosuvastatin [From Crestor] Allergy Intermediate MUSCLE Verified 10/04/18 15:28 ACHES & PAINS diltiazem Allergy Unknown unknown Verified 10/04/18 15:28 levofloxacin Allergy Unknown UNKNOWN Verified 10/04/18 15:28 moxifloxacin Allergy Unknown UNKNOWN Verified 10/04/18 15:28 aspirin AdvReac Intermediate increased Verified 10/04/18 15:28 bleeding (on warfarin) atorvastatin AdvReac Intermediate MUSCLE Verified 10/04/18 15:28 ACHES & PAINS doxycycline AdvReac Intermediate GI SYMPTOMS Verified 10/04/18 15:28 nortriptyline AdvReac Intermediate choking on Verified 10/04/18 15:28 food quinidine AdvReac Intermediate flu-like Verified 10/04/18 15:28 symptoms sulfamethoxazole AdvReac Intermediate CONFUSION Verified 10/04/18 15:28 trimethoprim AdvReac Intermediate CONFUSION Verified 10/04/18 15:28 Bactrim AdvReac Unknown CONFUSION Verified 11/10/17 17:54 clonidine AdvReac Unknown Unknown Verified 10/04/18 15:28 hydrocodone AdvReac Unknown Unknown Verified 10/04/18 15:28 NSAIDS (Non-Steroidal AdvReac Unknown AVOID PER Verified 10/04/18 15:28 Anti-Inflamma CASE - [id number] Home Medications Home Medications Medication Instructions Recorded Confirmed Type ranitidine HCl 150 mg PO BID #60 tab 01/01/18 10/04/18 Rx ipratropium-albuterol 0.5 mg-3 3 ml INH QID PRN 02/16/18 10/04/18 History mg(2.5 mg base)/3 mL nebulization soln Lantus Solostar U-100 Insulin 10 unit SUBCUT HS 05/04/18 10/04/18 History acetaminophen 650 mg PO Q12H PRN MDD 3 GRAMS/24 05/04/18 10/04/18 History HOURS. calcitriol 0.25 mcg PO 3XWK 05/04/18 10/04/18 History loratadine 10 mg PO QAM 05/04/18 10/04/18 History omeprazole 20 mg PO QAM 05/04/18 10/04/18 History Fleet Enema 1 dose UT UD PRN 05/29/18 10/04/18 History Florastor 250 mg PO QAM 05/29/18 10/04/18 History bisacodyl [Dulcolax (bisacodyl)] 10 mg UT DAILY PRN 05/29/18 10/04/18 History diclofenac sodium [Voltaren] 2 g TOPICAL QID 05/29/18 10/04/18 History digoxin 62.5 mcg PO QAM 05/29/18 10/04/18 History diphenhydramine HCl [Benadryl] 25 mg PO Q12 PRN 05/29/18 10/04/18 History ezetimibe [Zetia] 10 mg PO HS 05/29/18 10/04/18 History glucosamine-chondroitin [Osteo 1 tab PO TID 05/29/18 10/04/18 History Bi-Flex] magnesium hydroxide [Milk of 30 ml PO HS PRN 05/29/18 10/04/18 History Magnesia] metoprolol succinate 100 mg PO QAM 05/29/18 10/04/18 History montelukast [Singulair] 10 mg PO QAM 05/29/18 10/04/18 History warfarin 4 mg PO HS 06/13/18 10/04/18 History Nepro Carb Steady 0 ml PO HS 07/19/18 10/04/18 History Renal Caps 1 cap PO QAM 07/19/18 10/04/18 History cyanocobalamin (vitamin B-12) 1,000 mcg PO PM 07/19/18 10/04/18 History [Vitamin B-12] diazepam [Valium] 5 mg PO HS 07/19/18 10/04/18 History levothyroxine [Synthroid] 200 mcg PO .DAILY AT 1700 07/19/18 10/04/18 History oxycodone [Roxicodone] 5 mg PO Q6H PRN 07/19/18 10/04/18 History pyridoxine (vitamin B6) [Vitamin 100 mg PO QAM 07/19/18 10/04/18 History B-6] PreserVision AREDS 1 cap PO BID 08/20/18 10/04/18 History insulin lispro [Humalog U-100 1 sliding scale dose SUBCUT 08/20/18 10/04/18 History Insulin] USEASDIRECTD PRN oxycodone [OxyContin] 10 mg PO Q12H 08/20/18 10/04/18 History acetaminophen [Tylenol Arthritis 650 mg PO QAM 10/04/18 10/04/18 History Pain] dextromethorphan-guaifenesin 10 ml PO Q6H PRN 10/04/18 10/04/18 History [Robafen DM Cough] ondansetron HCl [Zofran] 4 mg PO Q8 PRN 10/04/18 10/04/18 History Patient History Medical History Hyponatremia Per review of labs, baseline appears around 127-132. Anticoagulated Warfarin for Afib Compression fracture of lumbar vertebra Greater trochanteric bursitis of left hip Depression Iron deficiency Hypothyroidism CHF (congestive heart failure) Cardiomegaly and mild pulmonary vascular congestion noted on 09/08 CXR. Chronic diastolic CHF, noted to be "stable" at last cardiology office visit 07/28/18 -- "her volume status has been well managed by hemodialysis. Anemia (Acute) Pulmonary hypertension (Chronic) RVSP 71mmHg on 05/2017 echo (done for acute on chronic CHF) Cor pulmonale (chronic) (Chronic) Diabetes mellitus (Chronic 08/25/12) Atrial fibrillation (Chronic 08/25/12) Permanent, on Warfarin. Asthma (Chronic 08/25/12) Cirrhosis (Chronic) COPD (chronic obstructive pulmonary disease) (Chronic) Pleural effusion, right (Chronic) S/P R sided Pleur-X catheter by Dr. Cueva. Removed 09/08. Anxiety Hypertension Mechanical heart valve present Dowd Lee mitral valve, 1985. On home oxygen therapy 2LPM Pacemaker Medtronic. Most recent interrogation 07/28 at cardio office visit. Restrictions of the diet FLUID RESTRICTION: 1500ML/24 HOURS Rhinitis, allergic Surgical History History of mitral valve replacement with mechanical valve On Coumadin therapy - follows with Dr. Araujo - goal INR 2.5-3.5 Dowd-Lee valve S/P placement of cardiac pacemaker Medtronic single-chamber permanent pacemaker. Unipolar lead. At [facility] H/O partial mastectomy with lymph node biopsy. L arm restriction. History of carpal tunnel release History of hysterectomy S/P cholecystectomy Social History Preferred Language: Divehi Communication Ability: Effective Visual Impairment: Limited Specifications Checker Required: No Beliefs That Will Affect Care: None marital status: / Current Living Situation: Senior Care Current Living Situation Comment: has brought spouse, who has dementia, home from [facility] Other Information That Helps Us Care for You: No Feels Safe at Home: Yes Safety Concerns: Feels Safe At This Time Smoking Status: Former smoker Do You Dip or Chew Tobacco: No Hx Alcohol Use: No Hx Substance Use: No Review of Systems Review of Systems: Patient denies fever, chills, chest pain, increased shortness of breath, or abdominal pain. Physical Exam Physical Exam: PE: Patient lethargic, easily aroused, able to answer simple questions and discuss goals of care HEENT: EOMI, hearing within normal limits Respirations: Unlabored, on O2 at 3 L, diminished breath sounds bilaterally CV: Rate controlled, pitting edema to level of abdominal wall Abdomen: Distended, positive bowel sounds, nontender to palpation, pitting edema abdominal wall Neuro: Lethargic, mild cognitive deficits, able to participate in goals of care discussion Results & Data Vital Signs (Past 12 Hours) Vital Signs Temp Pulse Pulse Pulse Resp BP BP 10/06/18 16:00 61 98/48 L 10/06/18 15:40 60 92/48 L 10/06/18 15:20 97.9 F 64 10/06/18 15:00 97.5 F L 64 16 109/64 10/06/18 11:24 97.9 F 69 20 95/46 L 10/06/18 07:38 98.4 F 67 20 113/54 L Pulse Ox 10/06/18 16:00 10/06/18 15:40 10/06/18 15:20 10/06/18 15:00 99 10/06/18 11:24 95 10/06/18 07:38 96 PG Care Time/CCT Total # of Minutes Spent Total Time Spent with Patient: Total time spent is greater than 50% in coordination of care (as documented) at patient's floor/unit and/or counseling patient: Time Spent Attending Total time spent 55 minutes with greater than 50% of the time spent at bedside initiating discussion regarding patient's goals of care as well as reviewing her current medical status including end-stage renal disease, poor cardiac function and declining health status.
[2018-10-06] MEDS: DIGOXIN 0.125 MG TAB PO SCH (19:57)
[2018-10-06] MEDS: INSULIN GLARGINE SOLOSTAR 100 UNITS/ML 3 ML PEN SQ SCH (19:59)
[2018-10-06] MEDS: OXYCODONE HCL IR 5 MG TAB (IMMEDIATE RELEASE) PO PRN (20:06)
[2018-10-07] MEDS: LEVOTHYROXINE SODIUM 200 MCG TABLET PO SCH (06:20)
[2018-10-07 06:27] LABS: Mean Corpuscular Hgb Conc 29.6 g/dL (32-36); Mean Corpuscular Volume 96.8 fL (80-100); Mean Platelet Volume 9.4 fL (7.4-10.4); Nucleated RBC # (auto) 0.03 K/uL (0-0); Nucleated RBC % (auto) 0.5 %; Platelet Count 194 K/uL (130-400); RDW Coefficient of Variation 17.7 % (11.5-14.5); RDW Standard Deviation 63.4 fL (36.4-46.3); Red Blood Count 2.79 M/uL (4.2-5.4); White Blood Count 6.99 K/uL (4.8-10.8)
[2018-10-07 06:38] LABS: INR 3.4 (0.9-1.1); Prothrombin Time 31.9 Seconds (9.0-12.0)
[2018-10-07] MEDS ORDERED: SODIUM CHLORIDE 0.9% 1000ML 1,000 ML IV PRN (07:00)
[2018-10-07 07:13] LABS: Albumin Globulin Ratio 0.6 (0.9-2); Albumin Level 2.7 gm/dl (3.4-5.0); BUN Creatinine Ratio 10.8 (10-20); Bilirubin,Total 0.9 mg/dl (0.2-1); Calcium 8.5 mg/dl (8.5-10.1); Creatinine Clr Calc Pharmacy 9.5 ml/min; Est GFR (African American) 8.9; Est GFR (Non-African American) 7.7; Globulin 4.5 gm/dl (2.5-4.0); Potassium 4.9 mmol/L (3.5-5.1); Total Protein 7.2 gm/dl (6.4-8.2)
[2018-10-07] MEDS: OXYCODONE HCL 10 MG TABCR (OXYCONTIN) PO SCH ×2 (08:15→20:58)
[2018-10-07] MEDS: PANTOprazole 40 MG TAB PO SCH (08:16)
[2018-10-07] MEDS: LORATADINE 10 MG TAB PO SCH (08:16)
[2018-10-07] MEDS: CALCITRIOL 0.25 MCG CAPSULE PO SCH (08:17)
[2018-10-07] MEDS: PYRIDOXINE HCL 50 MG TAB PO SCH (08:18)
[2018-10-07] MEDS: METOPROLOL SUCC 50MG EXT REL TAB PO SCH (08:18)
[2018-10-07] MEDS: NEPHROCAPS PO SCH (08:19)
[2018-10-07] MEDS: SACCHAROMYCES BOULARDII 250 MG CAP PO SCH (08:19)
[2018-10-07] MEDS: INSULIN ASPART 100 UNITS/ML 3 ML PEN SC SCH ×4 (08:20→21:00)
[2018-10-07] MEDS: BUMETANIDE 2 MG in SYRINGE 0 ML IV SCH ×2 (08:20→16:40)
[2018-10-07] MEDS: MIDODRINE HCL 10 MG TAB PO SCH (08:21)
[2018-10-07] MEDS: MONTELUKAST SODIUM 10 MG TABLET PO SCH (09:00)
--- NOTE | 2018-10-07 09:57 | Nephrology Progress Note ---
Date of Service October 07, 2018 Assessment & Plan (1) End stage renal disease: 78-year-old female with end-stage renal disease on hemodialysis secondary to cardiorenal syndrome and severe pulmonary hypertension. Admitted to the hospital with progressive shortness of breath over 2 weeks, on admission found to be volume overloaded, hyperkalemic with supratherapeutic INR. --HD now, UF 3 L if possible, continue midodrine 10 mg p.o. x1 dose before each dialysis treatment. --avoid IV fluid, dose medication for GFR less than 10 --continue on renal vitamin once a day and start her on phosphate binder with meal as her outpatient regimen --discussed again about considering hospice care and pt still wants to continue on HD for now. Will follow. (2) Fluid overload: (3) Anemia: (4) SOB (shortness of breath): (5) Supratherapeutic INR: Alicia Rojas was seen and examined during HD this am, tolerating HD, BP ok , received Midodrine before. had 3 L UF yesterday. Physical Exam Constitutional: + ill appearing and + frail appearing ENMT: external ear and nose normal, oropharynx normal Neck: trachea midline, no thyromegaly Respiratory: Auscultation: + diminished lung sounds and + rales Cardiovascular: Rate/Rhythm: regular rate and regular rhythm Heart Sounds: normal S1 and normal S2 Extremities: + edema and + AV fistula Gastrointestinal (Abdomen): Inspection/Auscultation: abdomen normal to inspection and normal bowel sounds Neurologic: moves all extremities and awake Psychiatric: Orientation: alert and oriented x 3 Affect: euthymic affect Mood: + depressed mood Results & Data Vital Signs (Past 12 Hours) Vital Signs Temp Pulse Pulse Resp BP BP Pulse Ox 10/07/18 09:40 59 L 92/44 L 10/07/18 09:20 59 L 92/38 L 10/07/18 09:00 60 87/48 L 10/07/18 08:40 60 99/48 L 10/07/18 08:33 36.7 C 69 69 107/49 L 10/07/18 06:41 36.4 C L 64 20 93/50 L 93 10/07/18 04:00 36.6 C 63 20 95/53 L 95 10/07/18 00:53 65 10/07/18 00:00 37.3 C 63 19 100/59 L 97 (1) Fluid overload Hypervolemia type: unspecified Qualified Code(s): E87.70 - Fluid overload, unspecified (2) Anemia Anemia type: unspecified type Qualified Code(s): D64.9 - Anemia, unspecified
[2018-10-07] MEDS: DICLOFENAC SOD 1% GEL 100 GM TUBE EXT SCH ×4 (10:15→20:58)
[2018-10-07] MEDS: DIGOXIN 0.125 MG TAB PO SCH (16:39)
[2018-10-07] MEDS: OXYCODONE HCL IR 5 MG TAB (IMMEDIATE RELEASE) PO PRN (16:57)
--- NOTE | 2018-10-07 17:33 | Hospitalist Progress Note ---
Date of Service October 07, 2018 Assessment & Plan (1) End stage renal disease: -Typically gets HD on MWF, unable to tolerate a full session 10/05 due to hypotension is able to tolerate session on 724 with addition of midodrine and reduction of beta-blockers -Volume overload secondary to this as well as combined acute on chronic right- sided congestive heart failure, chronic cor pulmonale, severe pulmonary hypertension -uses IV Bumex BID IV -Nephrology consulted, follows daily for dialysis evaluation -Fluid restriction of 1500 ml/d -oximask, baseline of 2-3 L O2 via NC. (2) Acute on chronic right-sided congestive heart failure: - Consult cardiology follows with Dr. Tapia as an outpt - Last echo completed May 2017 with preserved EF of 60%. severe concentric left ventricular hypertrophy. Mechanical mitral valve, moderate to severe tricu spid regurg, severe elevated right ventricular systolic pressure Reduction of beta-jose roberto therapy to try to improve blood pressure tolerate dialysis (3) Pulmonary hypertension: - Severe (4) Cor pulmonale (chronic): - Contributing to pts significant shortness of breath (5) S/P placement of cardiac pacemaker: - Stable (6) H/O mitral valve replacement with mechanical valve: - INR goal of 3.5-3.5 - Continues with Supratherapeutic INR one dose of vitamin K (7) Atrial fibrillation: - Permanent - holding coumadin, did receive 1 dose of vitamin K on 10/06, and INR reduced to 3.4 - Continue metoprolol succinate with reduced dosing, digoxin (8) Chronic kidney disease-mineral and bone disorder: - Continue calcitriol 0.25 mcg daily 3x/wk, B12 1000 mg QPM, pyridoxine 100 mg QAM, renal caps 1 cap QAM (9) Anemia: - hgb = 8.5, appears to be of chronic disease vs iron deficiency - Hgb appears to be baseline - has received iron infusions in the past - Hx of Gi bleeds and requiring multiple transfusions in the past - none currently needed as hgb is acceptable considering cardiac issues as above. (10) COPD (chronic obstructive pulmonary disease): - Stable, does not appear to be an acute exacerbation -Shortness of breath seems to be from fluid overload not heart failure (11) Asthma: - Chronic, no acute exacerbation (12) Cirrhosis: - Likely secondary to cor pulmonale and chronicity of the disease and has worsened current status causing fluid retention and shortness of breath - Check ammonia level with am labs - Continue metoprolol succinate 100 mg QAM - Volume control with HD as above (13) Diabetes mellitus: - Cont Lantus 10 U HS, glucose elevated at 161 upon admission - ISS with accu checks achs (14) Hypothyroidism: - Cont levothyroxine 200 mcg daily (15) Depression: - Monitor during admission, difficult to assess in current state - Continue Valium 5 mg HS for sleep (16) Lumbar compression fracture: - Continue pain management with oxycodone 5-10 mg Q6H, tylenol (17) Hyponatremia: - chronic (18) DVT prophylaxis: - teds, coumadin supratherapeutic, resume once INR stabilized Code: dnr - during pts last admission in Apr 2018 she was listed as DNR, pursuing palliative consult to determine goals of care. However patient after discussion with palliative care wishes to proceed to continue with dialysis Dispo: From [facility], CM consulted, likely to be in the hospital for at least 2 days. Subjective Patient is fatigued and lethargic today she did receive dialysis. She is continuing to wish to pursue dialysis into this and her beta-blockers have been reduced and she is this is done cautiously in lieu of her pulmonary hypertension Review of Systems Review of Systems: Unobtainable due to cognitive status ROS: Patient is lethargic and tired and wanted to be left alone after dialysis session and not wish to interact for review of systems today Physical Exam Physical Exam: Patient is with poor color vital signs show a little bit blood pressure which was lower during dialysis session Head exam is unremarkable. normocephalic, atraumatic Neck is with jugular venous distension, thyromegaly, or lymphademopathy Lungs are diminished at the bases Cardiac exam reveals Rhythm is regular. systolic ejection murmur is present Abdominal exam reveals normal bowel sounds, distended firm Extremities are moderately edematous and both pedal pulses are present Neurologic exam is A&Ox3, lethargic and falls asleep easily Psychologically seems depressed Skin is warm Dry Results & Data Vital Signs (Past 12 Hours) Vital Signs Temp Pulse Pulse Pulse Resp BP BP 10/07/18 16:39 64 10/07/18 15:39 36.6 C 64 16 89/43 L 10/07/18 12:34 36.7 C 66 69 66 99/38 L 99/38 L 10/07/18 12:20 70 74/29 L 10/07/18 12:00 75 90/41 L 10/07/18 11:40 60 95/36 L 10/07/18 11:20 60 100/41 L 10/07/18 11:00 60 90/39 L 10/07/18 10:40 55 L 90/43 L 10/07/18 10:20 62 86/63 L 10/07/18 10:00 59 L 90/45 L 10/07/18 09:40 59 L 92/44 L 10/07/18 09:20 59 L 92/38 L 10/07/18 09:00 60 87/48 L 10/07/18 08:40 60 99/48 L 10/07/18 08:33 36.7 C 69 69 107/49 L 10/07/18 06:41 36.4 C L 64 20 93/50 L Pulse Ox 10/07/18 16:39 10/07/18 15:39 97 10/07/18 12:34 10/07/18 12:20 10/07/18 12:00 10/07/18 11:40 10/07/18 11:20 10/07/18 11:00 10/07/18 10:40 10/07/18 10:20 10/07/18 10:00 10/07/18 09:40 10/07/18 09:20 10/07/18 09:00 10/07/18 08:40 10/07/18 08:33 10/07/18 06:41 93 PG Care Time/CCT Total # of Minutes Spent Total Time Spent with Patient: Total time spent is greater than 50% in coordination of care (as documented) at patient's floor/unit and/or counseling patient: (1) Diabetes mellitus Chronic kidney disease stage: stage 4 (severe) Diabetes mellitus complication detail: with chronic kidney disease Diabetes mellitus complication status: with kidney complications Diabetes mellitus long term care social worker insulin use: with long term care social worker use Diabetes mellitus type: type 2 Qualified Code(s): E11.22 - Type 2 diabetes mellitus with diabetic chronic kidney disease; N18.4 - Chronic kidney disease, stage 4 (severe); Z79.4 - intermediate (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 of insulin (2) Anemia Anemia type: unspecified type Qualified Code(s): D64.9 - Anemia, unspecified (3) Atrial fibrillation Atrial fibrillation type: chronic Qualified Code(s): I48.2 - Chronic atrial fibrillation (4) Hypothyroidism Hypothyroidism type: acquired Qualified Code(s): E03.9 - Hypothyroidism, unspecified (5) Cirrhosis Hepatic cirrhosis type: other cirrhosis Qualified Code(s): K74.69 - Other cirrhosis of liver (6) COPD (chronic obstructive pulmonary disease) COPD type: unspecified COPD Qualified Code(s): J44.9 - Chronic obstructive pulmonary disease, unspecified (7) Asthma Asthma complication type: uncomplicated Asthma persistence: unspecified Asthma severity: unspecified severity Qualified Code(s): J45.909 - Unspecified asthma, uncomplicated
[2018-10-07] MEDS: INSULIN GLARGINE SOLOSTAR 100 UNITS/ML 3 ML PEN SQ SCH (20:59)
[2018-10-08] MEDS: OXYCODONE HCL IR 5 MG TAB (IMMEDIATE RELEASE) PO PRN ×2 (02:06→09:51)
[2018-10-08] MEDS: LEVOTHYROXINE SODIUM 200 MCG TABLET PO SCH (06:06)
[2018-10-08 06:27] LABS: INR 1.9 (0.9-1.1); Prothrombin Time 18.6 Seconds (9.0-12.0)
[2018-10-08] MEDS: INSULIN ASPART 100 UNITS/ML 3 ML PEN SC SCH ×3 (08:14→18:02)
[2018-10-08] MEDS: PANTOprazole 40 MG TAB PO SCH (08:15)
[2018-10-08] MEDS: LORATADINE 10 MG TAB PO SCH (08:15)
[2018-10-08] MEDS: METOPROLOL SUCC 50MG EXT REL TAB PO SCH (08:15)
[2018-10-08] MEDS: MONTELUKAST SODIUM 10 MG TABLET PO SCH (08:16)
[2018-10-08] MEDS: NEPHROCAPS PO SCH (08:16)
[2018-10-08] MEDS: SACCHAROMYCES BOULARDII 250 MG CAP PO SCH (08:16)
[2018-10-08] MEDS: BUMETANIDE 2 MG in SYRINGE 0 ML IV SCH ×2 (08:16→18:10)
[2018-10-08] MEDS: PYRIDOXINE HCL 50 MG TAB PO SCH (08:17)
[2018-10-08] MEDS: DICLOFENAC SOD 1% GEL 100 GM TUBE EXT SCH ×3 (08:17→18:10)
[2018-10-08] MEDS: OXYCODONE HCL 10 MG TABCR (OXYCONTIN) PO SCH (08:23)
[2018-10-08] MEDS ORDERED: LORazepam 0.5 MG TAB PO PRN (09:02)
--- NOTE | 2018-10-08 10:16 | Nephrology Progress Note ---
Date of Service October 08, 2018 Assessment & Plan (1) End stage renal disease: 78-year-old female with end-stage renal disease on hemodialysis secondary to cardiorenal syndrome and severe pulmonary hypertension. Admitted to the hospital with progressive shortness of breath over 2 weeks, on admission found to be volume overloaded, hyperkalemic with supratherapeutic INR. Had dialysis today back to Friday and Friday had 3 liters UF, blood pressure stayed stable with lower dose of metoprolol add midodrine before treatment. She remained volume overloaded however definitely improved from where she was 3 days ago. --continued hemodialysis Friday was Friday, next dialysis tomorrow, continue on midodrine before dialysis. --avoid IV fluid, dose medication for GFR less than 10 --continue on renal vitamin once a day and start her on phosphate binder with meal as her outpatient regimen --overall long-term prognosis remains poor with other multiple medical comorbidities, discussed again about considering hospice care and pt still wants to continue on HD for now. Will follow. (2) Fluid overload: (3) Anemia: (4) SOB (shortness of breath): (5) Supratherapeutic INR: Alicia Rojas was seen and examined this am, BP ok , received Midodrine before hd, had 3 L UF yesterday. Physical Exam Constitutional: + ill appearing and + frail appearing Respiratory: Auscultation: + diminished lung sounds and + rales Cardiovascular: Rate/Rhythm: regular rate and regular rhythm Heart Sounds: normal S1 and normal S2 Extremities: + edema and + AV fistula Neurologic: moves all extremities and awake Psychiatric: Orientation: alert and oriented x 3 Affect: euthymic affect Mood: + depressed mood Results & Data Vital Signs (Past 12 Hours) Vital Signs Temp Pulse Pulse Pulse Resp BP Pulse Ox 10/08/18 08:00 61 10/08/18 07:12 36.8 C 64 20 100/50 L 93 10/08/18 04:26 36.7 C 71 20 101/44 L 94 10/07/18 23:22 61 10/07/18 23:19 36.6 C 63 18 99/44 L 99 (1) Fluid overload Hypervolemia type: unspecified Qualified Code(s): E87.70 - Fluid overload, unspecified (2) Anemia Anemia type: unspecified type Qualified Code(s): D64.9 - Anemia, unspecified
[2018-10-08] MEDS: MoRPHine SULFATE 2 MG/ML CARP IV PRN (15:53)
--- NOTE | 2018-10-08 17:08 | Discharge Summary ---
Date of Service October 08, 2018 Admission HPI Per Admitting Provider This is a 78 yo F with PMHx of right-sided CHF (chronic cor pulmonale), HTN, HLD, severe pulmonary hypertension, s/p cardiac pacemaker, mechanical mitral valve on Coumadin, A. fib, ESRD on dialysis, cirrhosis, acute on chronic anemia, hyperkalemia, hypothyroidism, DM type II, asthma, lumbar compression fracture, history of falls. The patient recently had an AV fistula creation completed by Dr. Titus, she currently has been receiving dialysis MWF but right chest wall dialysis catheter. The patient presents from [facility] for acute worsening shortness of breath, but that this has been worsening over the last 3 weeks. She notes that her last full dialysis session was on Friday. She does have a cough with yellow/green mucus production and chronically wears 2-3 L O2 at baseline but is requiring a much higher O2 level to maintain saturations. She feels puffy in her hands and feet. She denies any hemoptysis. Patient reports she has little to no appetite, last bowel movement was yesterday. Patient does make a small amount of urine. She denies any chest pain, flutter, palpitation, fevers or chills. Principal Diagnosis volume overload, end stage renal disease chronic back pain from compression fracture severe pulmonary hypertension cirrhosis Discharge Exam The patient appeared chronically ill and debilitated Vital signs as documented. Head exam is unremarkable. normocephalic, atraumatic Neck is with jugular venous distension, trachea is midline Lungs are diminished at the bases Cardiac exam reveals Rhythm is regular. Systolic ejection murmur Abdominal exam reveals normal bowel sounds, abdominal wall edema distention likely from ascites Extremities are moderately edematous Neurologic exam is A&Ox3 week and no focal loss Psychologically seems both anxious and depressed Discharge Data Allergies Allergy/AdvReac Type Severity Reaction Status Date / Time Penicillins Allergy Severe anaphylaxis Verified 10/04/18 15:28 30yrs ago, also broke out with sores rosuvastatin [From Crestor] Allergy Intermediate MUSCLE Verified 10/04/18 15:28 ACHES & PAINS diltiazem Allergy Unknown unknown Verified 10/04/18 15:28 levofloxacin Allergy Unknown UNKNOWN Verified 10/04/18 15:28 moxifloxacin Allergy Unknown UNKNOWN Verified 10/04/18 15:28 aspirin AdvReac Intermediate increased Verified 10/04/18 15:28 bleeding (on warfarin) atorvastatin AdvReac Intermediate MUSCLE Verified 10/04/18 15:28 ACHES & PAINS doxycycline AdvReac Intermediate GI SYMPTOMS Verified 10/04/18 15:28 nortriptyline AdvReac Intermediate choking on Verified 10/04/18 15:28 food quinidine AdvReac Intermediate flu-like Verified 10/04/18 15:28 symptoms sulfamethoxazole AdvReac Intermediate CONFUSION Verified 10/04/18 15:28 trimethoprim AdvReac Intermediate CONFUSION Verified 10/04/18 15:28 Bactrim AdvReac Unknown CONFUSION Verified 11/10/17 17:54 clonidine AdvReac Unknown Unknown Verified 10/04/18 15:28 hydrocodone AdvReac Unknown Unknown Verified 10/04/18 15:28 NSAIDS (Non-Steroidal AdvReac Unknown AVOID PER Verified 10/04/18 15:28 Anti-Inflamma CASE - [id number] Consultations 10/04/18 18:17 ED Decision to Admit Stat 10/04/18 19:20 Consult Case Management - Discharge Planning Routine Consult Nephrology Routine 10/04/18 19:27 Consult Cardiology Routine 10/06/18 13:04 Consult Palliative Care Routine Hospital Course (1) End stage renal disease: -Typically gets HD on MWF, unable to tolerate a full session 10/05 due to hypotension is able to tolerate session on 724 with addition of midodrine and reduction of beta-blockers -Volume overload secondary to this as well as combined acute on chronic right- sided congestive heart failure, chronic cor pulmonale, severe pulmonary hypertension -Nephrology consulted, -Fluid restriction of 1800 ml/d conintue oxygen This pt has endstage renal disease and significant pulmonary hypertension along with liver disease and daily osteoarthritic pain, we did discuss consideration of Hospice Care as pt at one point was questioning about continuing dialysis, she however now feels she wants to continue aggressive treatments. With her degree of disease and her renal status affecting her pulmonary hypertension which will affect her respiratory status I anticipate frequent readmissions During this stay her anti hypertensive medications are reduced and midodrine added to help her tolerate dialysis sessions to avoid fluid accumulation (2) Acute on chronic right-sided congestive heart failure: - Consult cardiology follows with Dr. Tapia as an outpt - Last echo completed May 2017 with preserved EF of 60%. severe concentric left ventricular hypertrophy. Mechanical mitral valve, moderate to severe tricuspid regurg, severe elevated right ventricular systolic pressure Reduction of beta-jose roberto therapy to try to improve blood pressure tolerate dialysis coumadin associated cardiomyopathy, inr reduced will recommend restart coumadin lower dose due to liver disease with close follow up of INR (3) Pulmonary hypertension: - Severe, will be sensitive to volume status (4) Cor pulmonale (chronic): - Contributing to pts significant shortness of breath (5) S/P placement of cardiac pacemaker: - Stable (6) H/O mitral valve replacement with mechanical valve: - INR goal of 3.0-3.5 - inr did lower with vitamin K 1.9 on discharge will recommend restarting coumadin (7) Atrial fibrillation: - Permanent coumadin, did receive 1 dose of vitamin K on 10/06, and INR reduced to 3.4 - Continue metoprolol succinate with reduced dosing, digoxin (8) Chronic kidney disease-mineral and bone disorder: - Continue calcitriol 0.25 mcg daily 3x/wk, B12 1000 mg QPM, pyridoxine 100 mg QAM, renal caps 1 cap QAM (9) Anemia: - hgb = 8.5, appears to be of chronic disease vs iron deficiency - Hgb appears to be baseline - has received iron infusions in the past - Hx of Gi bleeds and requiring multiple transfusions in the past - none currently needed as hgb is acceptable considering cardiac issues as above. (10) COPD (chronic obstructive pulmonary disease): - Stable, does not appear to be an acute exacerbation -Shortness of breath seems to be from fluid overload not heart failure (11) Asthma: - Chronic, no acute exacerbation (12) Cirrhosis: - Likely secondary to cor pulmonale and chronicity of the disease and has worsened current status causing fluid retention and shortness of breath - Check ammonia level with am labs - Continue metoprolol succinate 100 mg QAM - Volume control with HD as above (13) Diabetes mellitus: - Cont Lantus 10 U HS, glucose elevated at 161 upon admission - ISS with accu checks achs (14) Hypothyroidism: - Cont levothyroxine 200 mcg daily (15) Depression: - Continue Valium 5 mg HS for sleep (16) Lumbar compression fracture: - Continue pain management with oxycodone 5-10 mg Q6H, tylenol (17) Hyponatremia: - chronic (18) DVT prophylaxis: - teds, coumadin supratherapeutic, resume once INR stabilized Code: dnr - during pts last admission in Apr 2018 she was listed as DNR, pursuing palliative consult to determine goals of care. However patient after discussion with palliative care wishes to proceed to continue with dialysis Total Time Total Time Spent Total Time Spent (In Minutes): greater than 30 minutes were required to prepare discharge Discharge Plan Discharge Items Patient Disposition: Transfer [facility] Reason For Visit: VOLUME OVERLOAD,CHF,SOB Discharge Diagnosis: volume overload with chronic renal failure on dialysis pt did speak to hospice and declined Discharge Goals: Decrease discomfort and Improve disease control Activity: As commented below Activity Comment: as per pt/ot evaluation Non-emergency contact: Primary Care Provider and Forensic Nurse Call non-emergency contact if: you have any medication questions Follow-up/Referrals: Eris Salgado [Primary Care Provider] - Diet: Dialysis Renal Fluids: 1800ml (7 cups) Addtl Provider Instructions: This pt has endstage renal disease and significant pulmonary hypertension along with liver disease and daily osteoarthritic pain, we did discuss consideration o f Hospice Care as pt at one point was questioning about continuing dialysis, she however now feels she wants to continue aggressive treatments. With her degree of disease and her renal status affecting her pulmonary hypertension which will affect her respiratory status I anticipate frequent readmissions During this stay her anti hypertensive medications are reduced and midodrine added to help her tolerate dialysis sessions to avoid fluid accumulation Prescriptions: New midodrine 10 mg Tablet 10 mg PO MoWeFr@[id number] Qty: 30 RF: 0 metoprolol succinate 50 mg Tablet Extended Release 24 Hr 50 mg PO QAM Qty: 30 RF: 0 warfarin 2 mg tablet 2 mg PO DAILY Qty: 30 RF: 0 Continued ipratropium-albuterol 0.5 mg-3 mg(2.5 mg base)/3 mL solution for nebulization 3 ml INH QID PRN (Reason: Shortness Of Breath) RF: 0 magnesium hydroxide [Milk of Magnesia] 400 mg/5 mL Suspension 30 ml PO HS PRN (Reason: Constipation) RF: 0 bisacodyl [Dulcolax (bisacodyl)] 10 mg Suppository 10 mg ME DAILY PRN (Reason: Constipation/NO BM IN 3 DAYS.) RF: 0 diphenhydramine HCl [Benadryl] 25 mg Capsule 25 mg PO Q12 PRN (Reason: Itching) RF: 0 Fleet Enema 19-7 gram/118 mL Enema 1 dose ME UD PRN (Reason: Constipation/NO BM IN 3 DAYS.) RF: 0 montelukast [Singulair] 10 mg Tablet 10 mg PO QAM RF: 0 digoxin 125 mcg Tablet 62.5 mcg PO QAM RF: 0 ezetimibe [Zetia] 10 mg Tablet 10 mg PO HS RF: 0 glucosamine-chondroitin [Osteo Bi-Flex] 250-200 mg Tablet 1 tab PO TID RF: 0 Florastor 250 mg Capsule 250 mg PO QAM RF: 0 diclofenac sodium [Voltaren] 1 % Gel 2 g topical QID RF: 0 insulin lispro [Humalog U-100 Insulin] 100 unit/mL Solution 1 sliding scale dose SUBCUT USEASDIRECTD PRN (Reason: ELEVATED BSG'S) RF: 0 PreserVision AREDS [id number] Capsule 1 cap PO BID RF: 0 cyanocobalamin (vitamin B-12) [Vitamin B-12] 1,000 mcg Tablet 1,000 mcg PO PM RF: 0 pyridoxine (vitamin B6) [Vitamin B-6] 100 mg Tablet 100 mg PO QAM RF: 0 levothyroxine [Synthroid] 200 mcg tablet 200 mcg PO .DAILY AT 1700 RF: 0 Renal Caps 1 mg Capsule 1 cap PO QAM RF: 0 oxycodone [Roxicodone] 5 mg tablet 5 mg PO Q6H PRN (Reason: Pain) RF: 0 Nepro Carb Steady 0.08 gram-1.8 kcal/mL Liquid PO HS RF: 0 ondansetron HCl [Zofran] 4 mg Tablet 4 mg PO Q8 PRN (Reason: Nausea And Vomiting) RF: 0 acetaminophen [Tylenol Arthritis Pain] 650 mg Tablet Extended Release 650 mg PO QAM RF: 0 diazepam [Valium] 5 mg tablet 5 mg PO HS Qty: 10 RF: 0 oxycodone [OxyContin] 10 mg Tablet,Oral Only,Ext.Rel.12 Hr 10 mg PO Q12H Qty: 10 RF: 0 ranitidine HCl 150 mg Tablet 150 mg PO BID Qty: 60 RF: 0 acetaminophen 325 mg Tablet 650 mg PO Q12H MDD 3 GRAMS/24 HOURS. PRN (Reason: Fever Or Pain) RF: 0 calcitriol 0.25 mcg Capsule 0.25 mcg PO 3XWK RF: 0 omeprazole 20 mg Capsule,Delayed Release(Dr/Ec) 20 mg PO QAM RF: 0 loratadine 10 mg Tablet 10 mg PO QAM RF: 0 Lantus Solostar U-100 Insulin 100 unit/mL (3 mL) Insulin Pen 10 unit SUBCUT HS RF: 0 Discontinued metoprolol succinate 100 mg Tablet Extended Release 24 Hr 100 mg PO QAM RF: 0 Robafen DM Cough 10-100 mg/5 mL Liquid 10 ml PO Q6H PRN (Reason: Cough) RF: 0 Stand-Alone Forms: [facility] Discharge Orders: Discharge Order (Routine); Ordered 10/08/18 Ordered By: Thomas Hall Skilled Items Patient informed of condition?: Yes Discharge Level of Care: Skilled Communicable Disease: No Discharge Prognosis: Stable Admission Data Admit Date/Time: 10/04/18 18:16 Attending Provider: Thomas Hall Admit Provider: Yahaira Gibbons Primary Care Provider: Eris Salgado Other Providers: Bryant Wong ; Yahaira Gibbons ; Han Tapia ; Joi Trujillo Service: Telemetry Other Interventions: Discharge Summary Assessment (RN) Last Done: 10/08/18 16:33
[2018-10-08] MEDS: DIGOXIN 0.125 MG TAB PO SCH (18:01)
[2018-10-09] MEDS ORDERED: SODIUM CHLORIDE 0.9% 1000ML 1,000 ML IV PRN (07:00)
== END 2018-10-08 21:28 | DRG 291 ==
LOC: ED 14:54 → 2S 18:16 → SUATTDRO 18:16 → 2S 18:34
DX: I27.81 Cor pulmonale (chronic); Z90.49 Acquired absence of other specified parts of digestive tract; Z99.2 Dependence on renal dialysis; E87.5 Hyperkalemia; F32.9 Major depressive disorder, single episode, unspecified; Z95.0 Presence of cardiac pacemaker; Z95.2 Presence of prosthetic heart valve; Z79.01 Long term (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 of anticoagulants; E87.1 Hypo-osmolality and hyponatremia; K74.69 Other cirrhosis of liver; E11.22 Type 2 diabetes mellitus with diabetic chronic kidney disease; I48.2 Chronic atrial fibrillation; J44.9 Chronic obstructive pulmonary disease, unspecified; N18.6 End stage renal disease; E03.9 Hypothyroidism, unspecified; Z90.710 Acquired absence of both cervix and uterus; I50.813 Acute on chronic right heart failure; D64.9 Anemia, unspecified; I27.20 Pulmonary hypertension, unspecified; Z51.5 Encounter for palliative care; Z79.4 Long term (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 of insulin

== ENCOUNTER 2018-10-31 06:32 | Inpatient (IN) ==
[2018-10-31 07:12] LABS: INR 1.3 (0.9-1.1); Prothrombin Time 13.4 Seconds (9.0-12.0)
[2018-10-31 07:14] LABS: Albumin Level 2.4 gm/dl (3.4-5.0); BUN Creatinine Ratio 6.6 (10-20); Calcium 8.1 mg/dl (8.5-10.1); Creatinine Clr Calc Pharmacy 12.9 ml/min; Est GFR (African American) 12.9; Est GFR (Non-African American) 11.1; Potassium 4.3 mmol/L (3.5-5.1)
[2018-10-31 07:19] LABS: Albumin Globulin Ratio 0.5 (0.9-2); Bilirubin,Total 0.6 mg/dl (0.2-1); Globulin 4.7 gm/dl (2.5-4.0); Phosphorus 4.4 mg/dl (2.5-4.9); Total Protein 7.1 gm/dl (6.4-8.2); Troponin I 0.033 ng/ml (0-0.045)
[2018-10-31 07:22] LABS: Base Excess VBG 3.9 mEq/L; Oxygen Saturation VBG 84.4 %; pH VBG 7.43 (7.36-7.41)
--- NOTE | 2018-10-31 07:30 | XRay Report ---
XR chest 1V portable CLINICAL HISTORY: Atypical chest pain COMPARISON STUDY: 10/04/2018 FINDINGS: The heart is enlarged. There are postsurgical changes with midline sternotomy. There is an aortic valvular replacement. There is a right internal jugular dual-lumen catheter. There is a left s ubclavian single chamber central venous pacemaker[. 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 There is persistent but improving congestive failure. There is a small right pleural effusion. The re is no lobar consolidation. IMPRESSION: Cardiomegaly with persistent but improving congestive failure. Small right pleural effusi on. Electronically signed by: Nikita Culp M.D. 10/31/2018 7:29 AM
[2018-10-31 07:55] LABS: iSTAT Creatinine 4.1 mg/dl (0.6-1.3); iSTAT Hemoglobin 8.5 g/dl (12.0-16.0); iSTAT Ionized Calcium 1.06 mmol/l (1.12-1.32); iSTAT Potassium 4.3 mEq/L (3.3-5.0)
[2018-10-31] MEDS ORDERED: Heparin IV Standard *NO* Bolus IV ONE (08:09)
[2018-10-31 08:16] LABS: Hematocrit (blood only) 25.9 % (37-47); Hemoglobin 7.4 g/dL (12.0-16.0); Mean Corpuscular Hemoglobin 29.1 pg (25-34); Mean Corpuscular Hgb Conc 28.6 g/dL (32-36); Platelet Count 208 K/uL (130-400); Red Blood Count 2.54 M/uL (4.2-5.4); White Blood Count 6.76 K/uL (4.8-10.8)
[2018-10-31 08:18] LABS: Anisocytosis Present; Basophils # (auto) 0.04 K/uL (0-0.2); Basophils % (auto) 0.6 %; Eosinophils # (auto) 0.17 K/uL (0-0.5); Eosinophils % (auto) 2.5 %; Hypochromasia Present; Immature Granulocytes # (auto) 0.04 K/uL (0.00-0.02); Immature Granulocytes % (auto) 0.6 %; Lymphocytes # (auto) 1.71 K/uL (1.2-3.4); Lymphocytes % (auto) 25.3 %; Monocytes # (auto) 1.31 K/uL (0.11-0.59); Monocytes % (auto) 19.4 %; Neutrophils # (auto) 3.49 K/uL (1.4-6.5); Neutrophils % (auto) 51.6 %; Polychromasia 1+; Stomatocytes 1+
[2018-10-31 09:16] LABS: Partial Thromboplastin Ratio 1.2; Partial Thromboplastin Time 31.3 Seconds (21.0-31.0)
[2018-10-31] MEDS: HEPARIN SODIUM/DEXTROSE 25,000 UNITS/500 ML BAG IV SCH (09:40)
[2018-10-31] MEDS ORDERED: ONDANSETRON 4 MG TAB PO PRN (11:08)
[2018-10-31] MEDS ORDERED: ALBUT/IPRATROP 3MG/0.5MG NEB 3 ML VIAL INH PRN (11:08)
[2018-10-31] MEDS ORDERED: GLUCOSE 40% GEL 15 GM TUBE PO PRN ×2 (12:00→15:19)
[2018-10-31] MEDS ORDERED: DEXTROSE 50% 50 ML SYRINGE IV PRN ×2 (12:00→15:19)
[2018-10-31] MEDS ORDERED: GLUCOSE 10 TABS/TUBE PO PRN ×2 (12:00→15:19)
[2018-10-31] MEDS ORDERED: GLUCAGON FOR INJ 1 MG VIAL IM PRN (12:00)
[2018-10-31] MEDS ORDERED: CARBOHYDRATES FOR HYPOGLYCEMIA PO PRN ×2 (12:00→15:19)
[2018-10-31] MEDS: fentaNYL 12 MCG/HR TDSY TD SCH (12:37)
[2018-10-31] MEDS: OXYCODONE HCL IR 5 MG TAB (IMMEDIATE RELEASE) PO PRN (13:37)
[2018-10-31] MEDS ORDERED: GLUCAGON FOR INJ 1 MG VIAL SQ PRN (15:19)
--- NOTE | 2018-10-31 15:19 | History & Physical Report ---
Date of Service October 31, 2018 Assessment & Plan (1) Shortness of breath: Long-standing complaint for the patient; however, it does appear to be worse from baseline as she now is on 4L NC (up from 2L on discharge). CXR from 11/01 however shows improvement in her pulmonary edema. Likely due to continued volume overload from her ESRD & COPD vs. from her anemia. - Nephro consult for HD - Home inhalers & DuoNebs PRN (2) Anemia: Baseline hgb is ~8-9. Hemoglobin on admission was 7.4. Macrocytic. - Likely multifactorial from CKD, chronic disease, mild destruction from her valve. - Check iron studies, B12/folate in the morning - Replete any deficiencies as needed - Defer to nephrology regarding Epogen while inpatient (3) End stage renal disease: Gets HD . It is unclear to me if the patient went to HD on Friday. Initially, she was scheduled for surgery for her right clavicle; however, this was cancelled, and the patient cannot give me a good enough timeline to determine if she went to HD on 10/30. - Nephro consult for HD - Continue midodrine -> This was started last admission (and beta-jose roberto was lowered) due to hypotension during HD sessions. - Remove fluid as able during HD - Continue Nephrocaps and vitamins (4) History of mitral valve replacement with mechanical valve: She was admitted with an INR of 5.5 last admission. Given vitamin K. Discharged with INR of 1.9 and told to restart warfarin. - INR on admission was 1.3. - Given her mechanical mitral valve; will use heparin gtt to prevent thrombosis on her valve - Restart wararin - Monitor INR (5) Diabetes mellitus: Last A1c was 5.8% in 03/2018. - Recheck A1c - Long-acting and sliding scale insulin - Glycemic pharmacist (6) Atrial fibrillation: EKG on admission showed paced rhythm. - Continue digoxin, beta-jose roberto - Warfarin as above (7) COPD (chronic obstructive pulmonary disease): Per notes, though home med list has no inhalers. - Continue montelukast - DuoNebs PRN (8) Cirrhosis: Thought to be due to hepatic congestion from her chronic volume overload. - Monitor mental status (9) Clavicle fracture: Fractured her clavicle in a fall in September. Had planned to have surgery with Dr. Ramirez of [facility] orthopedics; however, her pre-op assessment by cardiology appears to have been poor enough that surgery was cancelled. - Will discuss with orthopedics (10) Palliative care encounter: Patient was followed by palliative care last admission. Given her continued pain, likely inability to have a surgical fix of her right clavicle fracture, and overall poor health, will re-consult. (11) Hypothyroidism: TSH was 20.3 on 10/21; however, it was coming down after increase in levothyroxine. - Continue home Synthroid 225 mcg PO daily - Recheck TSH in ~4 weeks. (12) DVT prophylaxis: Heparin gtt for mechanical valve History of Present Illness Primary Care Provider: [facility] Ms. Hernandez is a 78yo F w/ hx of ESRD, diastolic CHF, afib, COPD, DM, and cirrhosis who presents for shortness of breath and nausea from her SNF. Patient is unable to give a good timeline of events, but reports that for weeks she has felt more short of breath. This is somewhat confusing as she was only discharged on 10/08 from our hospital, and actually had an outpatient cardiology visit on 10/23 which both indicate that her breathing was at baseline. The patient also notes that her appetite has been poor and that she is losing weight. She reports she was told that she should gain weight due to her diabetes; however, I am not sure who recommended this. She denies any cough with her shortness of breath. She reports that she has right shoulder pain. She fractured her clavicle several weeks ago. She was planned for surgery; however, it appears this was cancelled due to her high sophia-operative risk. Allergies Allergy/AdvReac Type Severity Reaction Status Date / Time Penicillins Allergy Severe anaphylaxis Verified 10/31/18 07:35 30yrs ago, also broke out with sores rosuvastatin [From [facility]] Allergy Intermediate MUSCLE Verified 10/31/18 07:35 ACHES & PAINS diltiazem Allergy Unknown unknown Verified 10/31/18 07:35 levofloxacin Allergy Unknown UNKNOWN Verified 10/31/18 07:35 moxifloxacin Allergy Unknown UNKNOWN Verified 10/31/18 07:35 aspirin AdvReac Intermediate increased Verified 10/31/18 07:35 bleeding (on warfarin) atorvastatin AdvReac Intermediate MUSCLE Verified 10/31/18 07:35 ACHES & PAINS doxycycline AdvReac Intermediate GI SYMPTOMS Verified 10/31/18 07:35 nortriptyline AdvReac Intermediate choking on Verified 10/31/18 07:35 food quinidine AdvReac Intermediate flu-like Verified 10/31/18 07:35 symptoms sulfamethoxazole AdvReac Intermediate CONFUSION Verified 10/31/18 07:35 trimethoprim AdvReac Intermediate CONFUSION Verified 10/31/18 07:35 Bactrim AdvReac Unknown CONFUSION Verified 11/10/17 17:54 clonidine AdvReac Unknown Unknown Verified 10/31/18 07:35 hydrocodone AdvReac Unknown Unknown Verified 10/31/18 07:35 NSAIDS (Non-Steroidal AdvReac Unknown AVOID PER Verified 10/31/18 07:35 Anti-Inflamma [address] HICKS - [id number] Home Medications Home Medications Medication Instructions Recorded Confirmed Type ranitidine HCl 150 mg PO BID #60 tab 01/01/18 10/31/18 Rx ipratropium-albuterol 0.5 mg-3 3 ml INH QID PRN 02/16/18 10/31/18 History mg(2.5 mg base)/3 mL nebulization soln Lantus Solostar U-100 Insulin 10 unit SUBCUT HS 05/04/18 10/31/18 History calcitriol 0.25 mcg PO 3XWK 05/04/18 10/31/18 History loratadine 10 mg PO QAM 05/04/18 10/31/18 History omeprazole 20 mg PO QAM 05/04/18 10/31/18 History Fleet Enema [address] UD PRN 05/29/18 10/31/18 History Florastor 250 mg PO QAM 05/29/18 10/31/18 History bisacodyl [Dulcolax (bisacodyl)] [address] DAILY PRN 05/29/18 10/31/18 History diphenhydramine HCl [Benadryl] 25 mg PO Q12 PRN 05/29/18 10/31/18 History ezetimibe [Zetia] 10 mg PO HS 05/29/18 10/31/18 History glucosamine-chondroitin [Osteo 1 tab PO TID 05/29/18 10/31/18 History Bi-Flex] magnesium hydroxide [Milk of 30 ml PO HS PRN 05/29/18 10/31/18 History Magnesia] montelukast [Singulair] 10 mg PO QAM 05/29/18 10/31/18 History Renal Caps 1 cap PO QAM 07/19/18 10/31/18 History cyanocobalamin (vitamin B-12) 1,000 mcg PO HS 07/19/18 10/31/18 History [Vitamin B-12] pyridoxine (vitamin B6) [Vitamin 100 mg PO QAM 07/19/18 10/31/18 History B-6] PreserVision AREDS 1 cap PO BID 08/20/18 10/31/18 History insulin lispro [Humalog U-100 1 sliding scale dose SUBCUT 08/20/18 10/31/18 History Insulin] USEASDIRECTD PRN acetaminophen [Tylenol Arthritis 650 mg PO QAM 10/04/18 10/31/18 History Pain] ondansetron HCl [Zofran] 4 mg PO Q8 PRN 10/04/18 10/31/18 History metoprolol succinate 50 mg PO QAM #30 tab 10/08/18 10/31/18 Rx midodrine 10 mg PO MoWeFr@0900 #30 tab 10/08/18 10/31/18 Rx acetaminophen 325 mg tablet 650 mg PO Q6H PRN tab MDD 3 10/23/18 10/31/18 History GRAMS/24 HOURS. diazepam 5 mg tablet 5 mg PO HS tab 10/23/18 10/31/18 History diclofenac 1 % topical gel 2 g TOPICAL QID PRN 10/23/18 10/31/18 History digoxin 125 mcg tablet 62.5 mcg PO 3XWK 10/23/18 10/31/18 History levothyroxine 200 mcg tablet 200 mcg PO QAM tab 10/23/18 10/31/18 History oxycodone 5 mg tablet 5 mg PO Q12H tab 10/23/18 10/31/18 History fentanyl 1 patch TRANSDERMAL Q72H 10/31/18 10/31/18 History insulin aspart U-100 [Novolog 1 sliding scale dose SUBCUT 10/31/18 10/31/18 History U-100 Insulin aspart] USEASDIRECTD PRN levothyroxine 25 mcg PO QAM 10/31/18 10/31/18 History oxycodone 10 mg PO Q12 10/31/18 10/31/18 History warfarin 2 mg PO HS 10/31/18 10/31/18 History Past Med/Surg History Medical History Hyponatremia Per review of labs, baseline appears around 127-132. Anticoagulated Warfarin for Afib Compression fracture of lumbar vertebra Greater trochanteric bursitis of left hip Depression Iron deficiency Hypothyroidism CHF (congestive heart failure) Cardiomegaly and mild pulmonary vascular congestion noted on 09/08 CXR. Chronic diastolic CHF, noted to be "stable" at last cardiology office visit 07/28/18 -- "her volume status has been well managed by hemodialysis. Anemia (Acute) Pulmonary hypertension (Chronic) RVSP 71mmHg on 05/2017 echo (done for acute on chronic CHF) Cor pulmonale (chronic) (Chronic) Diabetes mellitus (Chronic 08/25/12) Atrial fibrillation (Chronic 08/25/12) Permanent, on Warfarin. Asthma (Chronic 08/25/12) Cirrhosis (Chronic) COPD (chronic obstructive pulmonary disease) (Chronic) Pleural effusion, right (Chronic) S/P R sided Pleur-X catheter by Dr. Cueva. Removed 09/08. Anxiety Hypertension Mechanical heart valve present Dowd Lee mitral valve, 1985. On home oxygen therapy 2LPM Pacemaker Medtronic. Most recent interrogation 07/28 at cardio office visit. Restrictions of the diet FLUID RESTRICTION: 1500ML/24 HOURS Rhinitis, allergic Surgical History History of mitral valve replacement with mechanical valve On Coumadin therapy - follows with Dr. Araujo - goal INR 2.5-3.5 Dowd-Lee valve S/P placement of cardiac pacemaker Medtronic single-chamber permanent pacemaker. Unipolar lead. At [facility] H/O partial mastectomy with lymph node biopsy. L arm restriction. History of carpal tunnel release History of hysterectomy S/P cholecystectomy Family History Other Diabetes Hypertension Social History Preferred Language: Stateless Communication Ability: Effective Visual Impairment: Limited Community Life Director Required: No Beliefs That Will Affect Care: None marital status: / Current Living Situation: [facility] Current Living Situation Comment: has brought spouse, who has dementia, home from [email or web address] Other Information That Helps Us Care for You: No Feels Safe at Home: Yes Safety Concerns: Feels Safe At This Time Smoking Status: Former smoker Do You Dip or Chew Tobacco: No ; Second Hand Exposure: No ; Tobacco Cessation Education Requested by Patient: No Hx Alcohol Use: No Hx Substance Use: No Review of Systems Constitutional: no fever, no chills and no sweats Eyes: no diplopia Ear, Nose, Mouth, Throat: no ear trauma, no nasal discharge and no dental pain Respiratory: no cough, no chest congestion and no dyspnea Cardiovascular: no chest pain, no dyspnea on exertion, no palpitations and no syncope Gastrointestinal: no abdominal pain, no belching, no constipation, no diarrhea/loose stools, no blood in stools and no melena Musculoskeletal: no back pain, no joint pain and no muscle weakness Integumentary: no rash, no skin ulcer and no erythema Neurologic: no generalized weakness, no loss of sensation, no numbness and no paresthesia Psychiatric: no depression and no anxiety Endocrine: no fatigue, no polydipsia and no polyphagia Physical Exam Constitutional: WD/WN, vitals as above + disheveled and + lethargic Eyes: EOM intact bilaterally; no conjunctival abnormality ENMT: external ear and nose normal, oropharynx normal Neck: trachea midline, no thyromegaly normal visual inspection Respiratory: normal respiratory effort, lungs clear to auscultation no respiratory distress Cardiovascular: RRR, no murmur, no edema Gastrointestinal (Abdomen): Inspection/Auscultation: abdomen normal to inspection; abdomen not distended Musculoskeletal: no cyanosis or clubbing, extremities motor strength 5/5 Skin: no rashes, warm and dry Neurologic: moves all extremities and awake Psychiatric: Orientation: alert, oriented to person and cooperative Results & Data Vital Signs (Past 12 Hours) Vital Signs Temp Pulse Pulse Resp BP BP Pulse Ox 10/31/18 13:53 99 10/31/18 11:08 36.6 C 61 18 138/102 H 97 10/31/18 10:10 65 18 96/44 L 96 10/31/18 08:30 55 L 20 102/55 L 97 10/31/18 07:04 96 10/31/18 06:37 36.8 C 64 24 96/48 L 96 Code Status & VTE Plan VTE Prophylaxis Plan VTE Prophylaxis will be ordered: Yes PG Care Time/CCT Total # of Minutes Spent Total Time Spent with Patient: Total time spent is greater than 50% in coordination of care (as documented) at patient's floor/unit and/or counseling patient: (1) Diabetes mellitus Diabetes mellitus type: type 2 Diabetes mellitus tank terminal gauger insulin use: with tank terminal gauger use Diabetes mellitus complication status: with kidney complications Diabetes mellitus complication detail: with chronic kidney disease Chronic kidney disease stage: stage 4 (severe) Qualified Code(s): E11.22 - Type 2 diabetes mellitus with diabetic chronic kidney disease; N18.4 - Chronic kidney disease, stage 4 (severe); 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
--- NOTE | 2018-10-31 15:20 | Emergency Department Note ---
Entered by Itzel Colon acting as a scribe for Carlos Eduardo Oro MD History of Present Illness General Chief complaint: Respiratory Problems Stated complaint: edema Time Seen by Provider: 10/31/18 06:38 Source: patient History of Present Illness Onset (ago): week(s) 2 Location: chest Pain Consistency: + other (persistent) Quality: + other (shortness of breath) Relieved By: not by other (O2 via nasal cannula) Associated symptoms: + other (back pain, possible clavicle fracture) The patient is a 78 year old female with a history of chronic renal disease that is presenting to the Emergency Room with complaints of persistent shortness of breath that started 2 weeks ago and worsened this morning. The patient reports that she is a resident at the [facility]. She states that the facility will not gilbert her request for increased oxygen without approval from a physician. She notes that she fell 2 weeks ago and hit the bottom of her bed. She states that her entire back continues to hurt from hip to shoulder. The patient reports that her clavicle broke during the fall. She denies coming to the ED at that time. She states that the facility completed x- rays and a CT scan to discover the broken clavicle. The patient notes that she missed a dialysis 3 days ago but states that she attended dialysis as scheduled yesterday. Home Medications Home Medications Medication Instructions Recorded Confirmed Type ranitidine HCl 150 mg PO BID #60 tab 01/01/18 10/31/18 Rx ipratropium-albuterol 0.5 mg-3 3 ml INH QID PRN 02/16/18 10/31/18 History mg(2.5 mg base)/3 mL nebulization soln Lantus Solostar U-100 Insulin 10 unit SUBCUT HS 05/04/18 10/31/18 History calcitriol 0.25 mcg PO 3XWK 05/04/18 10/31/18 History loratadine 10 mg PO QAM 05/04/18 10/31/18 History omeprazole 20 mg PO QAM 05/04/18 10/31/18 History Fleet Enema 1 dose MO UD PRN 05/29/18 10/31/18 History Florastor 250 mg PO QAM 05/29/18 10/31/18 History bisacodyl [Dulcolax (bisacodyl)] 10 mg MO DAILY PRN 05/29/18 10/31/18 History diphenhydramine HCl [Benadryl] 25 mg PO Q12 PRN 05/29/18 10/31/18 History ezetimibe [Zetia] 10 mg PO HS 05/29/18 10/31/18 History glucosamine-chondroitin [Osteo 1 tab PO TID 05/29/18 10/31/18 History Bi-Flex] magnesium hydroxide [Milk of 30 ml PO HS PRN 05/29/18 10/31/18 History Magnesia] montelukast [Singulair] 10 mg PO QAM 05/29/18 10/31/18 History Renal Caps 1 cap PO QAM 07/19/18 10/31/18 History cyanocobalamin (vitamin B-12) 1,000 mcg PO HS 07/19/18 10/31/18 History [Vitamin B-12] pyridoxine (vitamin B6) [Vitamin 100 mg PO QAM 07/19/18 10/31/18 History B-6] PreserVision AREDS 1 cap PO BID 08/20/18 10/31/18 History insulin lispro [Humalog U-100 1 sliding scale dose SUBCUT 08/20/18 10/31/18 History Insulin] USEASDIRECTD PRN acetaminophen [Tylenol Arthritis 650 mg PO QAM 10/04/18 10/31/18 History Pain] ondansetron HCl [Zofran] 4 mg PO Q8 PRN 10/04/18 10/31/18 History metoprolol succinate 50 mg PO QAM #30 tab 10/08/18 10/31/18 Rx midodrine 10 mg PO MoWeFr@0900 #30 tab 10/08/18 10/31/18 Rx acetaminophen 325 mg tablet 650 mg PO Q6H PRN tab MDD 3 10/23/18 10/31/18 History GRAMS/24 HOURS. diazepam 5 mg tablet 5 mg PO HS tab 10/23/18 10/31/18 History diclofenac 1 % topical gel 2 g TOPICAL QID PRN 10/23/18 10/31/18 History digoxin 125 mcg tablet 62.5 mcg PO 3XWK 10/23/18 10/31/18 History levothyroxine 200 mcg tablet 200 mcg PO QAM tab 10/23/18 10/31/18 History oxycodone 5 mg tablet 5 mg PO Q12H tab 10/23/18 10/31/18 History fentanyl 1 patch TRANSDERMAL Q72H 10/31/18 10/31/18 History insulin aspart U-100 [Novolog 1 sliding scale dose SUBCUT 10/31/18 10/31/18 History U-100 Insulin aspart] USEASDIRECTD PRN levothyroxine 25 mcg PO QAM 10/31/18 10/31/18 History oxycodone 10 mg PO Q12 10/31/18 10/31/18 History warfarin 2 mg PO HS 10/31/18 10/31/18 History Allergies Allergy/AdvReac Type Severity Reaction Status Date / Time Penicillins Allergy Severe anaphylaxis Verified 10/31/18 07:35 30yrs ago, also broke out with sores rosuvastatin [From Crestor] Allergy Intermediate MUSCLE Verified 10/31/18 07:35 ACHES & PAINS diltiazem Allergy Unknown unknown Verified 10/31/18 07:35 levofloxacin Allergy Unknown UNKNOWN Verified 10/31/18 07:35 moxifloxacin Allergy Unknown UNKNOWN Verified 10/31/18 07:35 aspirin AdvReac Intermediate increased Verified 10/31/18 07:35 bleeding (on warfarin) atorvastatin AdvReac Intermediate MUSCLE Verified 10/31/18 07:35 ACHES & PAINS doxycycline AdvReac Intermediate GI SYMPTOMS Verified 10/31/18 07:35 nortriptyline AdvReac Intermediate choking on Verified 10/31/18 07:35 food quinidine AdvReac Intermediate flu-like Verified 10/31/18 07:35 symptoms sulfamethoxazole AdvReac Intermediate CONFUSION Verified 10/31/18 07:35 trimethoprim AdvReac Intermediate CONFUSION Verified 10/31/18 07:35 Bactrim AdvReac Unknown CONFUSION Verified 11/10/17 17:54 clonidine AdvReac Unknown Unknown Verified 10/31/18 07:35 hydrocodone AdvReac Unknown Unknown Verified 10/31/18 07:35 NSAIDS (Non-Steroidal AdvReac Unknown AVOID PER Verified 10/31/18 07:35 Anti-Inflamma [address] HICKS - [id number] Past Med/Surg History Medical History Hyponatremia Per review of labs, baseline appears around 127-132. Anticoagulated Warfarin for Afib Compression fracture of lumbar vertebra Greater trochanteric bursitis of left hip Depression Iron deficiency Hypothyroidism CHF (congestive heart failure) Cardiomegaly and mild pulmonary vascular congestion noted on 09/08 CXR. Chronic diastolic CHF, noted to be "stable" at last cardiology office visit 07/28/18 -- "her volume status has been well managed by hemodialysis. Anemia (Acute) Pulmonary hypertension (Chronic) RVSP 71mmHg on 05/2017 echo (done for acute on chronic CHF) Cor pulmonale (chronic) (Chronic) Diabetes mellitus (Chronic 08/25/12) Atrial fibrillation (Chronic 08/25/12) Permanent, on Warfarin. Asthma (Chronic 08/25/12) Cirrhosis (Chronic) COPD (chronic obstructive pulmonary disease) (Chronic) Pleural effusion, right (Chronic) S/P R sided Pleur-X catheter by Dr. Cueva. Removed 09/08. Anxiety Hypertension Mechanical heart valve present Dowd Lee mitral valve, 1985. On home oxygen therapy 2LPM Pacemaker Medtronic. Most recent interrogation 07/28 at cardio office visit. Restrictions of the diet FLUID RESTRICTION: 1500ML/24 HOURS Rhinitis, allergic Surgical History History of mitral valve replacement with mechanical valve On Coumadin therapy - follows with Dr. Araujo - goal INR 2.5-3.5 Dowd-Lee valve S/P placement of cardiac pacemaker Medtronic single-chamber permanent pacemaker. Unipolar lead. At [facility] H/O partial mastectomy with lymph node biopsy. L arm restriction. History of carpal tunnel release History of hysterectomy S/P cholecystectomy Family History Other Diabetes Hypertension Social History Preferred Language: Syriac Communication Ability: Effective Visual Impairment: Limited Cork Tipper Required: No Beliefs That Will Affect Care: None marital status: / Current Living Situation: [facility] Current Living Situation Comment: has brought spouse, who has dementia, home from [facility] Other Information That Helps Us Care for You: No Feels Safe at Home: Yes Safety Concerns: Feels Safe At This Time Smoking Status: Former smoker Do You Dip or Chew Tobacco: No ; Second Hand Exposure: No ; Tobacco Cessation Education Requested by Patient: No Hx Alcohol Use: No Hx Substance Use: No Review of Systems See HPI for pertinent positives & negatives. and A total of 10 systems reviewed and were otherwise negative Physical Exam Vital Signs Vital Signs - 24 hr 10/31/18 06:37 10/31/18 07:04 10/31/18 08:30 Temperature 36.8 C Temperature Source Oral Sepsis Action Taken by Nursing No Action Required Pulse Rate 64 Pulse Rate [Left] 55 L Pulse Rhythm [Left] Regular Pulse Strength [Left] Normal Respiratory Rate 24 20 Respiratory Effort / Characteristics Labored Non-Labored Respiratory Depth Normal Blood Pressure 96/48 L Blood Pressure [Left Arm] 102/55 L Blood Pressure Mean 64 Blood Pressure Mean [Left Arm] 70 Blood Pressure Position [Left Arm] Lying Pulse Oximetry 96 96 97 Oxygen Delivery Method Nasal Cannula Nasal Cannula Nasal Cannula Oxygen Flow Rate 4 4 4 GENERAL: Awake, alert, chronically ill-appearing, mildly dyspneic. HENT: Normocephalic, atraumatic. Oropharynx unremarkable. EYES: Normal conjunctiva. Sclera non-icteric. NECK: Supple. No nuchal rigidity. FROM. No JVD. RESPIRATORY: Diminished breath sounds at the bases. CARDIAC: Regular rate, normal rhythm. 3/6 diastolic murmur and click appreciated. Extremities warm and well perfused. Pulses equal. ABDOMEN: Slightly distended but soft. No tenderness to palpation. No rebound or guarding. No masses. Anasarca noted. RECTAL: Deferred. MUSCULOSKELETAL: Chest examination reveals no tenderness. The back is symmetrical on inspection without obvious abnormality. There is no CVA tenderness to palpation. No joint edema. 1+ upper extremity edema. LOWER EXTREMITIES: Calves are equal size bilaterally and non-tender. No discoloration. 1+ bilateral edema. NEURO: Normal sensorium. No sensory or motor deficits noted. SKIN: No rash or jaundice noted. Course 0649:The patient was evaluated in room B07. A complete history and physical examination was performed. 08: I updated the patient on her current lab and imaging results. 0849: I discussed the patient's case with Dr. Wan [facility], who will evaluate the patient for further management and care. 0900: Upon reevaluation, the patient is resting comfortably. I discussed laboratory and radiographic results with the patient. She verbalized agreement of the treatment plan. The patient will be evaluated for further management and care. Consultations Consultation #1: I discussed the patient's case with Dr. Wan, [facility], who will evaluate the patient for further management and care. Time: 08:49 Administered Medications Diclofenac Sodium (Voltaren 1% Top) 1 appln EXT TID PRN PRN Reason: Shoulder pain Stop: 11/30/18 20:59 Last Admin: 10/31/18 16:55 Dose: 1 appln Documented by: [id number] Fentanyl (Duragesic) 12 mcg TD Q3D@1300 [facility] Stop: 11/14/18 12:59 Last Admin: 10/31/18 12:37 Dose: 12 mcg Documented by: [id number] Heparin Sodium/Dextrose (Heparin Sodium/Dextrose) 25,000 units in 500 mls @ 23 mls/hr IV .[id number] [facility]; Protocol Stop: 11/30/18 08:14 Last Titration: 10/31/18 17:30 Dose: 1,000 units/hr, 20 mls/hr Documented by: [id number] Cosigned by: [id number] Titration: 10/31/18 16:30 Dose: 0 units/hr, 0 mls/hr Documented by: [id number] Cosigned by: [id number] Titration: 10/31/18 14:42 Dose: 1,150 units/hr, 23 mls/hr Documented by: [id number] Cosigned by: [id number] Admin: 10/31/18 09:40 Dose: 1,150 units/hr, 23 mls/hr Documented by: [id number] Cosigned by: [id number] Insulin Aspart (Novolog Flexpen) 0 units SC ACHS [facility] Stop: 11/30/18 16:29 Last Admin: 10/31/18 17:38 Dose: Not Given Documented by: [id number] Cosigned by: [id number] Miscellaneous (Fentanyl Patch Check Placement) 1 ea N/A QS [facility] Stop: 11/30/18 15:59 Last Admin: 10/31/18 15:31 Dose: 1 ea Documented by: [id number] Miscellaneous (Fentanyl Patch Remove & Waste) 1 ea N/A Q3D@1259 [facility] Stop: 11/30/18 12:58 Last Admin: 10/31/18 12:38 Dose: 1 ea Documented by: [id number] Cosigned by: [id number] Oxycodone HCl (Roxicodone Immediate Rel) 5 mg PO Q12H PRN PRN Reason: Pain Stop: 11/14/18 11:07 Last Admin: 10/31/18 13:37 Dose: 5 mg Documented by: [id number] Warfarin Sodium (Coumadin) 2 mg PO DAILY@1600 [facility] Stop: 11/30/18 15:59 Last Admin: 10/31/18 15:30 Dose: 2 mg Documented by: [id number] Discontinued Medications Heparin Sodium/Dextrose () 1 ea IV ONE ONE; Protocol Stop: 10/31/18 08:10 Last Admin: 10/31/18 09:41 Dose: Not Given Documented by: [id number] Medical Decision Making Differential Diagnosis Differential diagnosis: Etiologies such as infections, reactive airway disease, pneumonia, pneumothorax, COPD, CHF, cardiac ischemia, pulmonary embolism, musculoskeletal, gastrointestinal, as well as others were entertained. Medical Records Attestation: I reviewed the patient's medical records. Home Medications Current Medication List: was personally reviewed by me Laboratory Data Attestation: I reviewed the patient's lab results. Result diagrams: 10/31/18 15:42 10/31/18 06:25 Lab Results 10/31/18 10/31/18 10/31/18 Range/Units 06:25 06:25 06:25 WBC 6.76 (4.8-10.8) K/uL RBC 2.54 L (4.2-5.4) M/uL Hgb 7.4 L (12.0-16.0) g/dL POC Hgb (12.0-16.0) g/dl Hct 25.9 L (37-47) % POC Hct (37-47) % MCV 102.0 H (80-100) fL MCH 29.1 (25-34) pg MCHC 28.6 L (32-36) g/dL Plt Count 208 (130-400) K/uL Immature Gran % (Auto) 0.6 % Neut % (Auto) 51.6 % Lymph % (Auto) 25.3 % [place] % (Auto) 19.4 % Eos % (Auto) 2.5 % Baso % (Auto) 0.6 % Immature Gran # (Auto) 0.04 H (0.00-0.02) K/uL Neut # (Auto) 3.49 (1.4-6.5) K/uL Lymph # (Auto) 1.71 (1.2-3.4) K/uL [place] # (Auto) 1.31 H (0.11-0.59) K/uL Eos # (Auto) 0.17 (0-0.5) K/uL Baso # (Auto) 0.04 (0-0.2) K/uL Polychromasia 1+ Hypochromasia Present Anisocytosis Present Stomatocytes 1+ PT 13.4 H (9.0-12.0) Seconds INR 1.3 H (0.9-1.1) APTT (21.0-31.0) Seconds PTT Ratio VBG pH (7.36-7.41) VBG pCO2 (38-50) mmHg VBG pO2 mmHg VBG HCO3 mmol/L VBG O2 Saturation % VBG Base Excess mEq/L Barometric Pressure mm/Hg POC Sodium (135-144) mEq/L Sodium 135 L (136-145) mmol/L POC Potassium (3.3-5.0) mEq/L Potassium 4.3 (3.5-5.1) mmol/L POC Chloride (101-112) mEq/L Chloride 96 L (98-107) mmol/L Carbon Dioxide 30 (21-32) mmol/L POC Total CO2 (24-31) mEq/l Anion Gap 9.0 (3-11) POC Anion Gap (16-25) mmol/L POC BUN (7-18) mg/dl BUN 25 H (7-18) mg/dl Creatinine 3.74 H (0.6-1.2) mg/dl POC Creatinine (0.6-1.3) mg/dl Est Cr Clr Drug Dosing 12.9 ml/min Est GFR ( Amer) 12.9 Est GFR (Non-Af Amer) 11.1 BUN/Creatinine Ratio 6.6 L (10-20) Glucose 114 H (70-99) mg/dl POC Glucose (other) (70-99) mg/dl Calcium 8.1 L (8.5-10.1) mg/dl POC Ioniz Calcium Fadi (1.12-1.32) mmol/l Phosphorus 4.4 (2.5-4.9) mg/dl Magnesium 2.0 (1.8-2.4) mg/dl Total Bilirubin 0.6 (0.2-1) mg/dl AST 49 H (15-37) U/L ALT 33 (12-78) U/L Alkaline Phosphatase 242 H (45-117) U/L Troponin I 0.033 (0-0.045) ng/ml Total Protein 7.1 (6.4-8.2) gm/dl Albumin 2.4 L (3.4-5.0) gm/dl Globulin 4.7 H (2.5-4.0) gm/dl Albumin/Globulin Ratio 0.5 L (0.9-2) Lipase 948 H (73-393) U/L 10/31/18 10/31/18 10/31/18 Range/Units 07:13 07:14 07:41 WBC (4.8-10.8) K/uL RBC (4.2-5.4) M/uL Hgb (12.0-16.0) g/dL POC Hgb 8.5 L (12.0-16.0) g/dl Hct (37-47) % POC Hct 25 L (37-47) % MCV (80-100) fL MCH (25-34) pg MCHC (32-36) g/dL Plt Count (130-400) K/uL Immature Gran % (Auto) % Neut % (Auto) % Lymph % (Auto) % [place] % (Auto) % Eos % (Auto) % Baso % (Auto) % Immature Gran # (Auto) (0.00-0.02) K/uL Neut # (Auto) (1.4-6.5) K/uL Lymph # (Auto) (1.2-3.4) K/uL [place] # (Auto) (0.11-0.59) K/uL Eos # (Auto) (0-0.5) K/uL Baso # (Auto) (0-0.2) K/uL Polychromasia Hypochromasia Anisocytosis Stomatocytes PT (9.0-12.0) Seconds INR (0.9-1.1) APTT 31.3 H (21.0-31.0) Seconds PTT Ratio 1.2 VBG pH 7.43 H (7.36-7.41) VBG pCO2 45 (38-50) mmHg VBG pO2 52 mmHg VBG HCO3 29 mmol/L VBG O2 Saturation 84.4 % VBG Base Excess 3.9 mEq/L Barometric Pressure 732.5 mm/Hg POC Sodium 133 L (135-144) mEq/L Sodium (136-145) mmol/L POC Potassium 4.3 (3.3-5.0) mEq/L Potassium (3.5-5.1) mmol/L POC Chloride 94 L (101-112) mEq/L Chloride (98-107) mmol/L Carbon Dioxide (21-32) mmol/L POC Total CO2 27 (24-31) mEq/l Anion Gap (3-11) POC Anion Gap 17.0 (16-25) mmol/L POC BUN 23 H (7-18) mg/dl BUN (7-18) mg/dl Creatinine (0.6-1.2) mg/dl POC Creatinine 4.1 H (0.6-1.3) mg/dl Est Cr Clr Drug Dosing ml/min Est GFR ( Amer) Est GFR (Non-Af Amer) BUN/Creatinine Ratio (10-20) Glucose (70-99) mg/dl POC Glucose (other) 104 H (70-99) mg/dl Calcium (8.5-10.1) mg/dl POC Ioniz Calcium Fadi 1.06 L (1.12-1.32) mmol/l Phosphorus (2.5-4.9) mg/dl Magnesium (1.8-2.4) mg/dl Total Bilirubin (0.2-1) mg/dl AST (15-37) U/L ALT (12-78) U/L Alkaline Phosphatase (45-117) U/L Troponin I (0-0.045) ng/ml Total Protein (6.4-8.2) gm/dl Albumin (3.4-5.0) gm/dl Globulin (2.5-4.0) gm/dl Albumin/Globulin Ratio (0.9-2) Lipase (73-393) U/L Imaging Data Radiologist's Impression: Radiology results as stated below per my review and the radiologist's interpretation: XR chest 1V portable CLINICAL HISTORY: Atypical chest pain COMPARISON STUDY: 10/04/2018 FINDINGS: The heart is enlarged. There are postsurgical changes with midline sternotomy. There is an aortic valvular replacement. There is a right internal jugular dual-lumen catheter. There is a left subclavian single chamber central venous pacemaker[. 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 There is persistent but improving congestive failure. There is a small right pleural effusion. There is no lobar consolidation. IMPRESSION: Cardiomegaly with persistent but improving congestive failure. Small right pleural effusion. Electronically signed by: Nikita Culp M.D. 10/31/2018 7:29 AM ECG Data Attestation: I personally reviewed and interpreted this ECG as follows: Indication: SOB/dyspnea Rate (beats per minute): 65 Rhythm: other (ventricularly paced) Findings: + PVC; no ST depression, no ST elevation and no acute ischemic change Blood Pressure Blood Pressure Findings: Low blood pressure MDM Narrative The patient is a pleasant 78-year-old woman with a past medical history of end- stage renal disease on dialysis Friday and Friday, mechanical mitral valve replacement on Coumadin, CHF who presents emerged department from [facility] with persistent shortness of breath from baseline over the past 2 weeks with edema per hpi. On arrival patient is chronically ill-appearing but no acute distress, afebrile with blood pressure 90s/40s, mentating normally and otherwise stable. On exam the patient does appear overloaded in setting her end-stage renal disease. Her oxygen saturation is 96% on her home 3 L nasal cannula. Increased to 4 L for comfort. EKG is paced. Chest x-ray with evidence of CHF albeit improved. WBC within normal limits. H/H 7.4/25.9 approximate prior values. Platelets within normal limits. INR is subtherapeutic at 1.3. Creatinine 3.7 in setting of the patient's end-stage renal disease. Potassium within normal limits. Troponin 0.03, within normal limits. Lipase 900s similar to prior values and patient does not exhibit any symptoms consistent with pancreatitis. Given the patient's report of persistent shortness of breath from her baseline in the setting of being subtherapeutic on her Coumadin in context of her mechanical mitral valve, symptoms potentially could be related to thrombus although less likely given audible click is appreciated on auscultation. Patient was ordered for heparin drip. Case was discussed with Dr. Wan, [facility] hospitalist, who evaluate the patient for admission. Impression & Plan Shortness of breath, End stage renal disease, H/O mitral valve replacement with mechanical valve, Subtherapeutic international normalized ratio (INR) Critical Care Time Critical Care Time: Yes Total Critical Care Time: 35 I have personally spent greater than 35 minutes of critical care time in the direct management of this patient. This includes bedside care, interpretation of diagnostic studies, and testing, discussion with consultants, patient, and family members, and other required patient management activities. This 35 minutes is in excess of all separately billable procedures. Discharge Plan Visit Data *Final* Discharge Date/Time: 10/31/18 10:48 Chief Complaint: Respiratory Problems Stated Complaint: edema ED Provider: Carlos Eduardo Oro Discharge Problem: Shortness of breath, End stage renal disease, H/O mitral valve replacement with mechanical valve, Subtherapeutic international normalized ratio (INR) Patient Disposition: Admitted As Inpatient Discharge Instructions Interventions: ED Discharge Assessment Last Done: 10/31/18 10:48 The scribe's documentation has been prepared under my direction and personally reviewed by me in its entirety. I confirm that the note above accurately reflects all work, treatment, procedures, and medical decision making performed by me.
[2018-10-31] MEDS: WARFARIN SOD 2 MG TAB PO SCH (15:30)
[2018-10-31] MEDS: CHECK FENTANYL PATCH PLACEMENT SCH (15:31)
[2018-10-31] MEDS ORDERED: PHARMACY GLYCEMIC MGMT CONSULT PRN (15:45)
[2018-10-31 16:20] LABS: Partial Thromboplastin Time 108.7 Seconds (21.0-31.0)
[2018-10-31] MEDS: DICLOFENAC SOD 1% GEL 100 GM TUBE EXT PRN ×2 (16:55→20:48)
[2018-10-31] MEDS: INSULIN ASPART 100 UNITS/ML 3 ML PEN SC SCH ×2 (17:38→20:30)
[2018-10-31] MEDS: CYANOCOBALAMIN 500 MCG TABLET (VITAMIN B-12) PO SCH (20:30)
[2018-10-31] MEDS: diazePAM 5 MG TABLET PO SCH (20:30)
[2018-10-31] MEDS: EZETIMIBE 10 MG TABLET PO SCH (20:30)
[2018-10-31] MEDS: INSULIN GLARGINE SOLOSTAR 100 UNITS/ML 3 ML PEN SQ SCH (20:30)
[2018-10-31] MEDS: OXYCODONE HCL 10 MG TABCR (OXYCONTIN) PO SCH (20:30)
[2018-11-01 00:21] LABS: Partial Thromboplastin Ratio 3.9
[2018-11-01] MEDS: CHECK FENTANYL PATCH PLACEMENT SCH ×3 (00:25→15:20)
[2018-11-01 00:29] LABS: Partial Thromboplastin Time 106.2 Seconds (21.0-31.0)
[2018-11-01] MEDS: OXYCODONE HCL IR 5 MG TAB (IMMEDIATE RELEASE) PO PRN ×2 (05:28→17:22)
[2018-11-01] MEDS: LEVOTHYROXINE SODIUM 25 MCG TABLET PO SCH (05:29)
[2018-11-01] MEDS: LEVOTHYROXINE SODIUM 200 MCG TABLET PO SCH (05:29)
[2018-11-01] MEDS: DICLOFENAC SOD 1% GEL 100 GM TUBE EXT PRN ×3 (05:33→20:56)
[2018-11-01 07:57] LABS: INR 1.4 (0.9-1.1); Prothrombin Time 13.9 Seconds (9.0-12.0)
[2018-11-01 08:08] LABS: Partial Thromboplastin Ratio 3.3
[2018-11-01 08:13] LABS: Partial Thromboplastin Time 90.4 Seconds (21.0-31.0)
[2018-11-01 08:26] LABS: Calcium 8.1 mg/dl (8.5-10.1); Creatinine Clr Calc Pharmacy 9.7 ml/min; Est GFR (African American) 9.1; Est GFR (Non-African American) 7.8; Ferritin 368.5 ng/ml (8-388); Magnesium 2.1 mg/dl (1.8-2.4); Potassium 4.6 mmol/L (3.5-5.1)
[2018-11-01 08:27] LABS: Phosphorus 6.3 mg/dl (2.5-4.9)
[2018-11-01 08:30] LABS: Hematocrit (blood only) 26.3 % (37-47); Hemoglobin 7.8 g/dL (12.0-16.0); Mean Corpuscular Hemoglobin 29.8 pg (25-34); Mean Corpuscular Hgb Conc 29.7 g/dL (32-36); Mean Corpuscular Volume 100.4 fL (80-100); Platelet Count 190 K/uL (130-400); Red Blood Count 2.62 M/uL (4.2-5.4); White Blood Count 6.99 K/uL (4.8-10.8)
[2018-11-01] MEDS: OXYCODONE HCL 10 MG TABCR (OXYCONTIN) PO SCH ×2 (09:04→20:50)
[2018-11-01] MEDS: NEPHROCAPS PO SCH (09:05)
[2018-11-01] MEDS: ACETAMINOPHEN 325 MG TAB PO SCH (09:05)
[2018-11-01] MEDS: PANTOprazole 40 MG TAB PO SCH (09:05)
[2018-11-01] MEDS: MONTELUKAST SODIUM 10 MG TABLET PO SCH (09:06)
[2018-11-01] MEDS: METOPROLOL SUCC 50MG EXT REL TAB PO SCH (09:07)
[2018-11-01] MEDS: PYRIDOXINE HCL 50 MG TAB PO SCH (09:07)
[2018-11-01] MEDS: INSULIN ASPART 100 UNITS/ML 3 ML PEN SC SCH ×4 (09:13→20:51)
[2018-11-01 09:23] LABS: Folate (Folic Acid) > 24.00 ng/ml (>5.38); Vitamin B12 > 2000 pg/ml (211-911)
--- NOTE | 2018-11-01 11:00 | Nephrology Consultation ---
Date of Consultation November 01, 2018 Assessment & Plan (1) End stage renal disease: -- MWF schedule: BP, volume status, and electrolytes are acceptable; plan HD tomorrow per schedule -- TDC used for treatment while patient recovers from calvicle fracture -- Midodrine for intradialytic hypotension -- Ongoing discussion regarding goals of care -- Document I/O's -- Repeat metabolic profile tomorrow AM -- Medications are appropriately dosed for IHD (2) Anemia: -- Epogen to be provided with HD tomorrow (3) COPD (chronic obstructive pulmonary disease): (4) Clavicle fracture: -- s/p fall -- Surgery deferred due to cardiac risk assessment (5) Atrial fibrillation: -- Anticoagulated with warfarin (6) History of mitral valve replacement with mechanical valve: -- Heparin gtt added due to subtherapeutic INR (7) Cirrhosis: (8) Palliative care encounter: -- Consult pending History of Present Illness Reason for Consultation: ESRD on HD Requesting Physician: Tang Guzman DO Attending Physician: Tang Guzman DO History of Present Illness Crystal Morales is a 78-year-old female with end-stage renal disease. She is on hemodialysis Friday, Friday, Friday at [facility]. Crystal started HD in March 2018 during an inpatient admission at [facility]. Her first dialysis treatment was 03/27/18. She initially presented to the hospital with severe fluid overload, ROSELYN on advanced CKD, as well as acute on chronic anemia. She is dialyzing via a RIJ TDC. AVF was placed 09/22/[address] Seymour. Use of the fistula has been complicated by clavicle fracture and arm sling. CKD attributed to diabetes mellitus and hypertension. She has a complex medical history including cirrhosis (suspected cardiac origin), atrial fibrillation, single chamber pacemaker, diastolic CHF, pulmonary hypertension, chronic right pleural effusion, hypothyroidism, depression, COPD and a history of a history of a mitral valve replacement with mechanical (Dowd-Lee valve). Crystal has a history of breast cancer treated with mastectomy. Crystal is now residing in [facility]. Crystal suffered a recent fracture of her clavicle. Pain management has been complicated. She has often been somnolent during HD treatment due to pain medications. She presented to the hospital yesterday with progressive shortness of breath and weakness. Crystal has been getting regular dialysis, last dialysis was Friday during which she completed a full treatment without complications. Net UF was 2.5 L. Her EDW has been 81 kg. On admission chest x- ray showed mild pulmonary vascular congestion. Troponin was negative. Chest x- ray was not suggestive of pneumonia. Did not have any fever, chills or significant leukocytosis. Currently she continues to have some shortness of breath however she feels better than before. She does have shortness of breath at baseline and uses home oxygen all the time. Has history of cardiomyopathy and chronic congestive heart failure. Allergies Allergy/AdvReac Type Severity Reaction Status Date / Time Penicillins Allergy Severe anaphylaxis Verified 10/31/18 07:35 30yrs ago, also broke out with sores rosuvastatin [From Crestor] Allergy Intermediate MUSCLE Verified 10/31/18 07:35 ACHES & PAINS diltiazem Allergy Unknown unknown Verified 10/31/18 07:35 levofloxacin Allergy Unknown UNKNOWN Verified 10/31/18 07:35 moxifloxacin Allergy Unknown UNKNOWN Verified 10/31/18 07:35 aspirin AdvReac Intermediate increased Verified 10/31/18 07:35 bleeding (on warfarin) atorvastatin AdvReac Intermediate MUSCLE Verified 10/31/18 07:35 ACHES & PAINS doxycycline AdvReac Intermediate GI SYMPTOMS Verified 10/31/18 07:35 nortriptyline AdvReac Intermediate choking on Verified 10/31/18 07:35 food quinidine AdvReac Intermediate flu-like Verified 10/31/18 07:35 symptoms sulfamethoxazole AdvReac Intermediate CONFUSION Verified 10/31/18 07:35 trimethoprim AdvReac Intermediate CONFUSION Verified 10/31/18 07:35 Bactrim AdvReac Unknown CONFUSION Verified 11/10/17 17:54 clonidine AdvReac Unknown Unknown Verified 10/31/18 07:35 hydrocodone AdvReac Unknown Unknown Verified 10/31/18 07:35 NSAIDS (Non-Steroidal AdvReac Unknown AVOID PER Verified 10/31/18 07:35 Anti-Inflamma [address] HICKS - [id number] Home Medications Home Medications Medication Instructions Recorded Confirmed Type ranitidine HCl 150 mg PO BID #60 tab 01/01/18 10/31/18 Rx ipratropium-albuterol 0.5 mg-3 3 ml INH QID PRN 02/16/18 10/31/18 History mg(2.5 mg base)/3 mL nebulization soln Lantus Solostar U-100 Insulin 10 unit SUBCUT HS 05/04/18 10/31/18 History calcitriol 0.25 mcg PO 3XWK 05/04/18 10/31/18 History loratadine 10 mg PO QAM 05/04/18 10/31/18 History omeprazole 20 mg PO QAM 05/04/18 10/31/18 History Fleet Enema 1 dose NJ UD PRN 05/29/18 10/31/18 History Florastor 250 mg PO QAM 05/29/18 10/31/18 History bisacodyl [Dulcolax (bisacodyl)] 10 mg NJ DAILY PRN 05/29/18 10/31/18 History diphenhydramine HCl [Benadryl] 25 mg PO Q12 PRN 05/29/18 10/31/18 History ezetimibe [Zetia] 10 mg PO HS 05/29/18 10/31/18 History glucosamine-chondroitin [Osteo 1 tab PO TID 05/29/18 10/31/18 History Bi-Flex] magnesium hydroxide [Milk of 30 ml PO HS PRN 05/29/18 10/31/18 History Magnesia] montelukast [Singulair] 10 mg PO QAM 05/29/18 10/31/18 History Renal Caps 1 cap PO QAM 07/19/18 10/31/18 History cyanocobalamin (vitamin B-12) 1,000 mcg PO HS 07/19/18 10/31/18 History [Vitamin B-12] pyridoxine (vitamin B6) [Vitamin 100 mg PO QAM 07/19/18 10/31/18 History B-6] PreserVision AREDS 1 cap PO BID 08/20/18 10/31/18 History insulin lispro [Humalog U-100 1 sliding scale dose SUBCUT 08/20/18 10/31/18 History Insulin] USEASDIRECTD PRN acetaminophen [Tylenol Arthritis 650 mg PO QAM 10/04/18 10/31/18 History Pain] ondansetron HCl [Zofran] 4 mg PO Q8 PRN 10/04/18 10/31/18 History metoprolol succinate 50 mg PO QAM #30 tab 10/08/18 10/31/18 Rx midodrine 10 mg PO MoWeFr@0900 #30 tab 10/08/18 10/31/18 Rx acetaminophen 325 mg tablet 650 mg PO Q6H PRN tab MDD 3 10/23/18 10/31/18 History GRAMS/24 HOURS. diazepam 5 mg tablet 5 mg PO HS tab 10/23/18 10/31/18 History diclofenac 1 % topical gel 2 g TOPICAL QID PRN 10/23/18 10/31/18 History digoxin 125 mcg tablet 62.5 mcg PO 3XWK 10/23/18 10/31/18 History levothyroxine 200 mcg tablet 200 mcg PO QAM tab 10/23/18 10/31/18 History oxycodone 5 mg tablet 5 mg PO Q12H tab 10/23/18 10/31/18 History fentanyl 1 patch TRANSDERMAL Q72H 10/31/18 10/31/18 History insulin aspart U-100 [Novolog 1 sliding scale dose SUBCUT 10/31/18 10/31/18 History U-100 Insulin aspart] USEASDIRECTD PRN levothyroxine 25 mcg PO QAM 10/31/18 10/31/18 History oxycodone 10 mg PO Q12 10/31/18 10/31/18 History warfarin 2 mg PO HS 10/31/18 10/31/18 History Patient History Medical History Hyponatremia Per review of labs, baseline appears around 127-132. Anticoagulated Warfarin for Afib Compression fracture of lumbar vertebra Greater trochanteric bursitis of left hip Depression Iron deficiency Hypothyroidism CHF (congestive heart failure) Cardiomegaly and mild pulmonary vascular congestion noted on 09/08 CXR. Chronic diastolic CHF, noted to be "stable" at last cardiology office visit 07/28/18 -- "her volume status has been well managed by hemodialysis. Anemia (Acute) Pulmonary hypertension (Chronic) RVSP 71mmHg on 05/2017 echo (done for acute on chronic CHF) Cor pulmonale (chronic) (Chronic) Diabetes mellitus (Chronic 08/25/12) Atrial fibrillation (Chronic 08/25/12) Permanent, on Warfarin. Asthma (Chronic 08/25/12) Cirrhosis (Chronic) COPD (chronic obstructive pulmonary disease) (Chronic) Pleural effusion, right (Chronic) S/P R sided Pleur-X catheter by Dr. Cueva. Removed 09/08. Anxiety Hypertension Mechanical heart valve present Dowd Lee mitral valve, 1985. On home oxygen therapy 2LPM Pacemaker Medtronic. Most recent interrogation 07/28 at cardio office visit. Restrictions of the diet FLUID RESTRICTION: 1500ML/24 HOURS Rhinitis, allergic Surgical History History of mitral valve replacement with mechanical valve On Coumadin therapy - follows with Dr. Araujo - goal INR 2.5-3.5 Dowd-Lee valve S/P placement of cardiac pacemaker Medtronic single-chamber permanent pacemaker. Unipolar lead. At [facility] H/O partial mastectomy with lymph node biopsy. L arm restriction. History of carpal tunnel release History of hysterectomy S/P cholecystectomy Family History Other Diabetes Hypertension Social History Preferred Language: Swedish Communication Ability: Effective Visual Impairment: Limited Adjunct Trainer Required: No Beliefs That Will Affect Care: None marital status: / Current Living Situation: Assisted Current Living Situation Comment: has brought spouse, who has dementia, home from [facility] Other Information That Helps Us Care for You: No Feels Safe at Home: Yes Safety Concerns: Feels Safe At This Time Smoking Status: Former smoker Do You Dip or Chew Tobacco: No ; Second Hand Exposure: No ; Tobacco Cessation Education Requested by Patient: No Hx Alcohol Use: No Hx Substance Use: No Review of Systems Review of Systems: All systems reviewed & are unremarkable except as noted in HPI & below Physical Exam Constitutional: + frail appearing; no acute distress Eyes: no scleral abnormality and no corneal abnormality ENMT: Mouth: no oral mucosal abnormality and oral mucous membranes not dry Neck: normal visual inspection and trachea midline IJ TDC intact with clean dressing Respiratory: normal respiratory effort; no respiratory distress Auscultation: lungs clear to auscultation bilaterally Cardiovascular: Heart Sounds: normal S1, normal S2 and + murmur Extremities: + AV fistula; no edema Gastrointestinal (Abdomen): Percussion/Palpation: abdomen soft; abdomen nontender Musculoskeletal: Extremities: no cyanosis and no clubbing Skin: normal turgor; no rashes Neurologic: Motor/Sensory: no tremor and no asterixis Psychiatric: Mood: + depressed mood Results & Data Vital Signs (Past 12 Hours) Vital Signs Temp Pulse Pulse Resp BP Pulse Ox 11/01/18 07:29 60 11/01/18 03:54 36.6 C 61 18 105/53 L 98 11/01/18 00:00 61 10/31/18 23:44 36.7 C 62 18 102/46 L 94 Laboratory Results Laboratory Results - last 24 hr 10/31/18 10/31/18 10/31/18 11:48 15:42 15:42 WBC RBC Hgb 7.7 L Hct MCV MCH MCHC Plt Count PT INR APTT 108.7 H* PTT Ratio 4.0 Sodium Potassium Chloride Carbon Dioxide Anion Gap BUN Creatinine Est Cr Clr Drug Dosing Est GFR ( Amer) Est GFR (Non-Af Amer) BUN/Creatinine Ratio Glucose POC Glucose 90 Estimat Average Glucose Hemoglobin A1c Calcium Phosphorus Magnesium Iron TIBC Ferritin Vitamin B12 Folate 10/31/18 10/31/18 10/31/18 16:39 20:02 23:46 WBC RBC Hgb Hct MCV MCH MCHC Plt Count PT INR APTT 106.2 H* PTT Ratio 3.9 Sodium Potassium Chloride Carbon Dioxide Anion Gap BUN Creatinine Est Cr Clr Drug Dosing Est GFR ( Amer) Est GFR (Non-Af Amer) BUN/Creatinine Ratio Glucose POC Glucose 98 122 H Estimat Average Glucose Hemoglobin A1c Calcium Phosphorus Magnesium Iron TIBC Ferritin Vitamin B12 Folate 11/01/18 11/01/18 11/01/18 07:23 07:23 07:23 WBC 6.99 RBC 2.62 L Hgb 7.8 L Hct 26.3 L MCV 100.4 H MCH 29.8 MCHC 29.7 L Plt Count 190 PT 13.9 H INR 1.4 H APTT PTT Ratio Sodium 132 L Potassium 4.6 Chloride 94 L Carbon Dioxide 30 Anion Gap 8.0 BUN 35 H Creatinine 5.00 H* D Est Cr Clr Drug Dosing 9.7 Est GFR ( Amer) 9.1 Est GFR (Non-Af Amer) 7.8 BUN/Creatinine Ratio 7.0 L Glucose 113 H POC Glucose Estimat Average Glucose Hemoglobin A1c Calcium 8.1 L Phosphorus 6.3 H D Magnesium 2.1 Iron 33 L TIBC 213 L Ferritin 368.5 Vitamin B12 Folate 11/01/18 11/01/18 11/01/18 07:23 07:23 07:23 WBC RBC Hgb Hct MCV MCH MCHC Plt Count PT INR APTT 90.4 H* PTT Ratio 3.3 Sodium Potassium Chloride Carbon Dioxide Anion Gap BUN Creatinine Est Cr Clr Drug Dosing Est GFR ( Amer) Est GFR (Non-Af Amer) BUN/Creatinine Ratio Glucose POC Glucose Estimat Average Glucose Pending Hemoglobin A1c Pending Calcium Phosphorus Magnesium Iron TIBC Ferritin Vitamin B12 > 2000 H Folate > 24.00 11/01/18 07:37 WBC RBC Hgb Hct MCV MCH MCHC Plt Count PT INR APTT PTT Ratio Sodium Potassium Chloride Carbon Dioxide Anion Gap BUN Creatinine Est Cr Clr Drug Dosing Est GFR ( Amer) Est GFR (Non-Af Amer) BUN/Creatinine Ratio Glucose POC Glucose 114 H Estimat Average Glucose Hemoglobin A1c Calcium Phosphorus Magnesium Iron TIBC Ferritin Vitamin B12 Folate PG Care Time/CCT Total # of Minutes Spent Total Time Spent with Patient: Total time spent is greater than 50% in coordination of care (as documented) at patient's floor/unit and/or counseling patient: 30 minutes (1) Anemia Anemia type: unspecified type Qualified Code(s): D64.9 - Anemia, unspecified (2) Atrial fibrillation Atrial fibrillation type: chronic Qualified Code(s): I48.2 - Chronic atrial fibrillation (3) COPD (chronic obstructive pulmonary disease) COPD type: unspecified COPD Qualified Code(s): J44.9 - Chronic obstructive pulmonary disease, unspecified (4) Cirrhosis Hepatic cirrhosis type: other cirrhosis Qualified Code(s): K74.69 - Other cirrhosis of liver
[2018-11-01] MEDS: HEPARIN SODIUM/DEXTROSE 25,000 UNITS/500 ML BAG IV SCH (11:04)
--- NOTE | 2018-11-01 11:38 | Hospitalist Progress Note ---
Date of Service November 01, 2018 Assessment & Plan (1) Shortness of breath: Long-standing complaint for the patient; however, it does appear to be worse from baseline as she now is on 4L NC (up from 2L on discharge). CXR from 11/01 however shows improvement in her pulmonary edema. Likely due to continued volume overload from her ESRD & COPD vs. from her anemia. patient reports that her dyspnea is better, unclear why as she had not gotten HD yet (2) Anemia: Baseline hgb is ~8-9. Hemoglobin on admission was 7.4. Macrocytic. up slightly to 7.8 on 11/01 - Likely multifactorial from CKD, chronic disease, mild destruction from her valve. - Ferritin 368, B12 is > 2000 so she has no deficiencies - Defer to nephrology regarding Epogen while inpatient (3) End stage renal disease: Gets HD -. d/ Dr. Mercado, she had HD on Monday 10/30 with UF of 2.5 liters, plan for normally scheduled HD on 11/02 - Nephro consult for HD - Continue midodrine -> This was started last admission (and beta-jose roberto was lowered) due to hypotension during HD sessions. - Continue Nephrocaps and vitamins (4) History of mitral valve replacement with mechanical valve: She was admitted with an INR of 5.5 last admission. Given vitamin K. Discharged with INR of 1.9 and told to restart warfarin. - INR on admission was 1.3, up slightly to 1.4, continue on heparin drip - continue Coumadin - Monitor INR (5) Diabetes mellitus: Last A1c was 5.8% in 03/2018. - Long-acting and sliding scale insulin - Glycemic pharmacist (6) Atrial fibrillation: EKG on admission showed paced rhythm. - Continue digoxin, beta-jose roberto - Warfarin as above (7) COPD (chronic obstructive pulmonary disease): Per notes, though home med list has no inhalers. - Continue montelukast - DuoNebs PRN (8) Cirrhosis: Thought to be due to hepatic congestion from her chronic volume overload. - Monitor mental status (9) Clavicle fracture: Fractured her clavicle in a fall in September. Had planned to have surgery with Dr. Ramirez of [facility] orthopedics; however, her pre-op assessment by cardiology appears to have been poor enough that surgery was cancelled. - Will discuss with orthopedics (10) Palliative care encounter: will d/w palliative tomorrow (11) Hypothyroidism: TSH was 20.3 on 10/21; however, it was coming down after increase in levothyroxine. - Continue home Synthroid 225 mcg PO daily - Recheck TSH in ~4 weeks. (12) DVT prophylaxis: Heparin gtt for mechanical valve Subjective patient is very fatigued, says that she slept a little better last night than prior few days, wants to know what she received reviewed chart, she received Valium 5mg HS in addition to Oxycodone 10mg discussed case with Dr. Mercado, he confirmed that she received HD on Monday 10/30 he said that the dialysis nurses have been concerned that she has been more lethargic for sessions asked her about this, she says it is because her room mate at [facility] talks too much and she can never rest she admits to ongoing pain in right shoulder/clavicle due to fracture cannot get surgery at this time vitals stable reviewed labs, Hb is 7.8, INR low at 1.4, electrolytes stable plan for HD tomorrow per nephrology Review of Systems Review of Systems: All systems reviewed & are unremarkable except as noted in HPI & below Constitutional: + fatigue, + weakness and + weight loss; no fever, no chills and no sweats Respiratory: + dyspnea; no cough, no pain with cough and no sputum production Cardiovascular: + edema; no chest pain Gastrointestinal: no abdominal pain, no nausea, no vomiting, no constipation and no diarrhea/loose stools Musculoskeletal: + joint pain (right shoulder and clavicle) Integumentary: + wounds (some healing wounds on arms/legs) Physical Exam Constitutional: well developed and + thin; no acute distress Eyes: PERRL, conjunctivae normal, anicteric sclerae ENMT: external ear and nose normal, oropharynx normal Neck: trachea midline, no thyromegaly Respiratory: normal respiratory effort; no respiratory distress Auscultation: + diminished lung sounds (bases) Cardiovascular: Rate/Rhythm: regular rate and + irregularly irregular Heart Sounds: normal S1 and normal S2; no murmur Extremities: normal capillary refill and + edema Gastrointestinal (Abdomen): normal bowel sounds, soft, nontender, no h epatosplenomegaly Musculoskeletal: Head/Neck/Chest: normocephalic and head atraumatic Extremities: + limited ROM of extremities (right shoulder) and + muscle atrophy; no cyanosis, no clubbing and no petechiae Skin: + turgor decreased, + wound and + skin atrophy Neurologic: patellar DTR's 2+ bilat, sensation intact and PERRL, EOMI, accommodation nl, no face palsy, no dysarthria Psychiatric: Orientation: alert and oriented x 3 Affect: + depressed affect Mood: + depressed mood Lymphatic: no cervical or axillary lymphadenopathy Results & Data Vital Signs (Past 12 Hours) Vital Signs Temp Pulse Pulse Resp BP Pulse Ox 11/01/18 07:29 60 11/01/18 03:54 36.6 C 61 18 105/53 L 98 11/01/18 00:00 61 10/31/18 23:44 36.7 C 62 18 102/46 L 94 Laboratory Results Laboratory Results - last 24 hr 10/31/18 10/31/18 10/31/18 11:48 15:42 15:42 WBC RBC Hgb 7.7 L Hct MCV MCH MCHC Plt Count PT INR APTT 108.7 H* PTT Ratio 4.0 Sodium Potassium Chloride Carbon Dioxide Anion Gap BUN Creatinine Est Cr Clr Drug Dosing Est GFR ( Amer) Est GFR (Non-Af Amer) BUN/Creatinine Ratio Glucose POC Glucose 90 Estimat Average Glucose Hemoglobin A1c Calcium Phosphorus Magnesium Iron TIBC Ferritin Vitamin B12 Folate 10/31/18 10/31/18 10/31/18 16:39 20:02 23:46 WBC RBC Hgb Hct MCV MCH MCHC Plt Count PT INR APTT 106.2 H* PTT Ratio 3.9 Sodium Potassium Chloride Carbon Dioxide Anion Gap BUN Creatinine Est Cr Clr Drug Dosing Est GFR ( Amer) Est GFR (Non-Af Amer) BUN/Creatinine Ratio Glucose POC Glucose 98 122 H Estimat Average Glucose Hemoglobin A1c Calcium Phosphorus Magnesium Iron TIBC Ferritin Vitamin B12 Folate 11/01/18 11/01/18 11/01/18 07:23 07:23 07:23 WBC 6.99 RBC 2.62 L Hgb 7.8 L Hct 26.3 L MCV 100.4 H MCH 29.8 MCHC 29.7 L Plt Count 190 PT 13.9 H INR 1.4 H APTT PTT Ratio Sodium 132 L Potassium 4.6 Chloride 94 L Carbon Dioxide 30 Anion Gap 8.0 BUN 35 H Creatinine 5.00 H* D Est Cr Clr Drug Dosing 9.7 Est GFR ( Amer) 9.1 Est GFR (Non-Af Amer) 7.8 BUN/Creatinine Ratio 7.0 L Glucose 113 H POC Glucose Estimat Average Glucose Hemoglobin A1c Calcium 8.1 L Phosphorus 6.3 H D Magnesium 2.1 Iron 33 L TIBC 213 L Ferritin 368.5 Vitamin B12 Folate 11/01/18 11/01/18 11/01/18 07:23 07:23 07:23 WBC RBC Hgb Hct MCV MCH MCHC Plt Count PT INR APTT 90.4 H* PTT Ratio 3.3 Sodium Potassium Chloride Carbon Dioxide Anion Gap BUN Creatinine Est Cr Clr Drug Dosing Est GFR ( Amer) Est GFR (Non-Af Amer) BUN/Creatinine Ratio Glucose POC Glucose Estimat Average Glucose Pending Hemoglobin A1c Pending Calcium Phosphorus Magnesium Iron TIBC Ferritin Vitamin B12 > 2000 H Folate > 24.00 11/01/18 07:37 WBC RBC Hgb Hct MCV MCH MCHC Plt Count PT INR APTT PTT Ratio Sodium Potassium Chloride Carbon Dioxide Anion Gap BUN Creatinine Est Cr Clr Drug Dosing Est GFR ( Amer) Est GFR (Non-Af Amer) BUN/Creatinine Ratio Glucose POC Glucose 114 H Estimat Average Glucose Hemoglobin A1c Calcium Phosphorus Magnesium Iron TIBC Ferritin Vitamin B12 Folate Medications Administered Current Inpatient Medications Acetaminophen (Tylenol) 650 mg PO QAM [facility] Stop: 12/01/18 08:59 Last Admin: 11/01/18 09:05 Dose: 650 mg Documented by: Acetaminophen (Tylenol) 650 mg PO Q6H PRN PRN Reason: Fever Or Pain Stop: 11/30/18 11:07 Albuterol (Duoneb) 3 ml INH QID PRN PRN Reason: Shortness Of Breath Stop: 11/30/18 11:07 Calcitriol (Rocaltrol) 0.25 mcg PO MoWeFr@0900 NAY Stop: 12/02/18 08:59 Cyanocobalamin (Vitamin B-12) 1,000 mcg PO HS NAY Stop: 11/30/18 20:59 Last Admin: 10/31/18 20:30 Dose: 1,000 mcg Documented by: Dextrose (Dextrose 50%) 25 - 50 ml IV UD PRN; Protocol PRN Reason: Hypoglycemia Protocol Stop: 11/30/18 11:59 Dextrose (Dextrose 50%) 25 - 50 ml IV UD PRN; Protocol PRN Reason: Hypoglycemia Protocol Stop: 11/30/18 15:18 Diazepam (Valium) [address] [facility] Stop: 11/30/18 20:59 Last Admin: 10/31/18 20:30 Dose: 5 mg Documented by: Diclofenac Sodium (Voltaren 1% Top) 1 appln EXT TID PRN PRN Reason: Shoulder pain Stop: 11/30/18 20:59 Last Admin: 11/01/18 05:33 Dose: 1 appln Documented by: Digoxin (Lanoxin) 0.0625 mg PO MoWeFr@1600 [facility] Stop: 12/02/18 15:59 Ezetimibe (Zetia) [address] [facility] Stop: 11/30/18 20:59 Last Admin: 10/31/18 20:30 Dose: 10 mg Documented by: Fentanyl (Duragesic) 12 mcg TD Q3D@1300 [facility] Stop: 11/14/18 12:59 Last Admin: 10/31/18 12:37 Dose: 12 mcg Documented by: Glucagon (Glucagen) 1 mg IM UD PRN; Protocol PRN Reason: Hypoglycemia Protocol Stop: 11/30/18 11:59 Glucagon (Glucagen) 1 mg SQ UD PRN; Protocol PRN Reason: Hypoglycemia Protocol Stop: 11/30/18 15:18 Glucose (Glucose 40%) 15 - 30 gm PO UD PRN; Protocol PRN Reason: Hypoglycemia Protocol Stop: 11/30/18 11:59 Glucose (Dex4 Glucose) 4 - 8 tabs PO UD PRN; Protocol PRN Reason: Hypoglycemia Protocol Stop: 11/30/18 11:59 Glucose (Glucose 40%) 15 - 30 gm PO UD PRN; Protocol PRN Reason: Hypoglycemia Protocol Stop: 11/30/18 15:18 Glucose (Dex4 Glucose) 4 - 8 tabs PO UD PRN; Protocol PRN Reason: Hypoglycemia Protocol Stop: 11/30/18 15:18 Heparin Sodium/Dextrose (Heparin Sodium/Dextrose) 25,000 units in 500 mls @ 20 mls/hr IV .Q24H [facility]; Protocol Stop: 11/30/18 08:14 Last Admin: 11/01/18 11:04 Dose: 14 units/hr, 0.3 mls/hr Documented by: Insulin Aspart (Novolog Flexpen) 0 units SC ACHS [facility] Stop: 11/30/18 16:29 Last Admin: 11/01/18 09:13 Dose: Not Given Documented by: Insulin Glargine (Lantus Solostar Pen) 10 units SQ HS [facility] Stop: 11/30/18 20:59 Last Admin: 10/31/18 20:30 Dose: 10 units Documented by: [facility]: 12/01/18 06:29 Last Admin: 11/01/18 05:29 Dose: 25 mcg Documented by: Levothyroxine Sodium (Synthroid) [facility] Stop: 12/01/18 06:29 Last Admin: 11/01/18 05:29 Dose: 200 mcg Documented by: Metoprolol Succinate ([facility]l) [facility]: 12/01/18 08:59 Last Admin: 11/01/18 09:07 Dose: 50 mg Documented by: Midodrine (Proamatine) 10 mg PO MoWeFr@0900 [facility] Stop: 12/02/18 08:59 Miscellaneous (Fentanyl Patch Check Placement) 1 ea N/A QS [facility] Stop: 11/30/18 15:59 Last Admin: 11/01/18 09:08 Dose: 1 ea Documented by: Miscellaneous (Fentanyl Patch Remove & Waste) 1 ea N/A Q3D@1259 [facility] Stop: 11/30/18 12:58 Last Admin: 10/31/18 12:38 Dose: 1 ea Documented by: Miscellaneous (Carbohydrates For Hypoglycemia) 15 - 30 gm PO UD PRN PRN Reason: Hypoglycemia Treatment Stop: 11/30/18 11:59 Miscellaneous (Carbohydrates For Hypoglycemia) 15 - 30 gm PO UD PRN PRN Reason: Hypoglycemia Treatment Stop: 11/30/18 15:18 Miscellaneous Information (Consult Glycemic Management Pharmacy) 1 ea N/A UD PRN; Protocol PRN Reason: Consult Stop: 11/30/18 15:44 Montelukast Sodium (Singulair) 10 mg PO QAM [facility] Stop: 12/01/18 08:59 Last Admin: 11/01/18 09:06 Dose: 10 mg Documented by: Ondansetron HCl (Zofran Tab) 4 mg PO Q8 PRN PRN Reason: Nausea And Vomiting Stop: 11/30/18 11:07 Oxycodone HCl (Roxicodone Immediate Rel) 5 mg PO Q12H PRN PRN Reason: Pain Stop: 11/14/18 11:07 Last Admin: 11/01/18 05:28 Dose: 5 mg Documented by: Oxycodone HCl (Oxycontin) 10 mg PO Q12 [facility] Stop: 11/14/18 20:59 Last Admin: 11/01/18 09:04 Dose: 10 mg Documented by: Pantoprazole Sodium (Protonix) 40 mg PO QAM [facility] Stop: 12/01/18 08:59 Last Admin: 11/01/18 09:05 Dose: 40 mg Documented by: Pyridoxine HCl (Vitamin B-6) [facility]: 12/01/18 08:59 Last Admin: 11/01/18 09:07 Dose: 100 mg Documented by: Ranitidine HCl (Zantac) 75 mg PO DAILY [facility]; Protocol Stop: 12/01/18 08:59 Last Admin: 11/01/18 09:05 Dose: 75 mg Documented by: Vitamin B Complex/Folic Acid (Ne[facility]rocaps) [facility] Stop: 12/01/18 08:59 Last Admin: 11/01/18 09:05 Dose: 1 cap Documented by: Warfarin Sodium (Coumadin) 2 mg PO DAILY@1600 [facility] Stop: 11/30/18 15:59 Last Admin: 10/31/18 15:30 Dose: 2 mg Documented by: PG Care Time/CCT Total # of Minutes Spent Total Time Spent with Patient: Total time spent is greater than 50% in coordination of care (as documented) at patient's floor/unit and/or counseling patient: (1) Diabetes mellitus Chronic kidney disease stage: stage 4 (severe) Diabetes mellitus complication detail: with chronic kidney disease Diabetes mellitus complication status: with kidney complications Diabetes mellitus detention insulin use: with detention use Diabetes mellitus type: type 2 Qualified Code(s): E11.22 - Type 2 diabetes mellitus with diabetic chronic kidney disease; N18.4 - Chronic kidney disease, stage 4 (severe); Z79.4 - alf (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 of insulin (2) Anemia Anemia type: unspecified type Qualified Code(s): D64.9 - Anemia, unspecified (3) Atrial fibrillation Atrial fibrillation type: chronic Qualified Code(s): I48.2 - Chronic atrial fibrillation (4) Hypothyroidism Hypothyroidism type: acquired Qualified Code(s): E03.9 - Hypothyroidism, unspecified (5) Cirrhosis Hepatic cirrhosis type: other cirrhosis Qualified Code(s): K74.69 - Other cirrhosis of liver (6) COPD (chronic obstructive pulmonary disease) COPD type: unspecified COPD Qualified Code(s): J44.9 - Chronic obstructive pulmonary disease, unspecified
--- NOTE | 2018-11-01 11:55 | Pharmacy Report ---
Glycemic Control Consultation - Date of Service November 01, 2018 - Scope Scope: Glycemic Pharmacist consulted by Dr Ayde Wan on 10/31/18 for glycemic control and to write orders per [facility] inpatient glycemic control protocol - Objective Weight: 85 kg Accuchecks BSG (last 24hrs): 10/31/18 10/31/18 10/31/18 11:48 16:39 20:02 Glucose POC Glucose 90 98 122 H 11/01/18 11/01/18 07:23 07:37 Glucose 113 H POC Glucose 114 H Laboratory Data (last 24hrs): 11/01/18 07:23 Potassium 4.6 Carbon Dioxide 30 Anion Gap 8.0 Creatinine 5.00 H* D Est Cr Clr Drug Dosing 9.7 HbA1c: * Patient's A1c = likely somewhat unreliable in ESRD patients d/t interactions between the A1c analyzing technique and high levels of urea in ESRD, reduced RBC life span, iron deficiency anemia, and EPO administration. HbA1c > 7.5% in ESRD patient may overestimate the extent of hyperglycemia in ESRD patients. - Recent Pertinent Medications Outpatient Anti-diabetic Regimen: * Lantus 10 units SQ HS * NovoLog SSI (correctional insulin only) The patient is currently receiving: * Basal insulin: Lantus 10 units every 24 hours given at bedtime * Correctional Insulin: Novolog Correction per scale ACHS Goal Range: Low 100 mg/dL - High 140 mg/dL Correction Factor: 30 mg/dL/unit * Prandial insulin: Per carb ratio of 1 unit per 9 grams CHO consumed - Assessment & Plan Assessment & Plan: ASSESSMENT: * 78yo T2DM female admitted with SOB. Outpatient glycemic control difficult to assess since A1c is unreliable in ESRD. Based on admission BSGs and BSGs over the last 24hrs it appears that glycemic control is adequate on current regimen. * Pt with hx of MVR (mechanical valve w/ A Fib) INR subtherapeutic. Bridging with therapeutic heparin. This is mixed in dextrose; sometimes insulin orders need adjusted when heparin is stopped. Will adjust according to BSG trends. * No changes needed at this time. All BSGs in range with current orders which a re c/w outpatient dosing PLAN FOR INPATIENT GLYCEMIC CONTROL: * Basal insulin * Lantus 10 units SQ HS * Bolus insulin * NovoLog per scale ACHS or Q6hrs while NPO * Goal Range: Low 100 mg/dL - High 140 mg/dL * Correction Factor: 30 mg/dL/unit * Nutritional / Prandial insulin per carb ratio of 1 unit per 9 grams CHO consumed * Please note that the plan above was derived based on current level of insulin resistance and hospital stress. These recommendations are appropriate for inpatient admission only. Plan of care upon discharge will need to be reassessed to avoid potential outpatient hypo/hyperglycemia. Thank you.
[2018-11-01] MEDS: ACETAMINOPHEN 325 MG TAB PO PRN (15:19)
[2018-11-01] MEDS: WARFARIN SOD 2 MG TAB PO SCH (15:20)
[2018-11-01 16:25] LABS: Partial Thromboplastin Ratio 2.3
[2018-11-01 16:34] LABS: Partial Thromboplastin Time 61.2 Seconds (21.0-31.0)
[2018-11-01] MEDS: diazePAM 5 MG TABLET PO SCH (20:50)
[2018-11-01] MEDS: EZETIMIBE 10 MG TABLET PO SCH (20:51)
[2018-11-01] MEDS: INSULIN GLARGINE SOLOSTAR 100 UNITS/ML 3 ML PEN SQ SCH (20:51)
[2018-11-01] MEDS: CYANOCOBALAMIN 500 MCG TABLET (VITAMIN B-12) PO SCH (20:51)
[2018-11-02] MEDS: CHECK FENTANYL PATCH PLACEMENT SCH ×4 (00:05→22:50)
[2018-11-02] MEDS: ACETAMINOPHEN 325 MG TAB PO PRN ×2 (00:11→20:07)
[2018-11-02] MEDS: LEVOTHYROXINE SODIUM 200 MCG TABLET PO SCH (05:30)
[2018-11-02] MEDS: OXYCODONE HCL IR 5 MG TAB (IMMEDIATE RELEASE) PO PRN ×2 (05:30→12:41)
[2018-11-02] MEDS: LEVOTHYROXINE SODIUM 25 MCG TABLET PO SCH (05:30)
[2018-11-02] MEDS: DICLOFENAC SOD 1% GEL 100 GM TUBE EXT PRN ×3 (05:34→21:46)
[2018-11-02 06:19] LABS: Estimated Average Glucose 108 mg/dl; Hemoglobin A1C 5.4 % (4.5-5.6)
[2018-11-02 07:00] LABS: Hematocrit (blood only) 26.4 % (37-47); Hemoglobin 7.7 g/dL (12.0-16.0); Mean Corpuscular Hemoglobin 29.1 pg (25-34); Mean Corpuscular Hgb Conc 29.2 g/dL (32-36); Mean Corpuscular Volume 99.6 fL (80-100); Mean Platelet Volume 9.8 fL (7.4-10.4); Platelet Count 176 K/uL (130-400); RDW Coefficient of Variation 22.3 % (11.5-14.5); RDW Standard Deviation 80.4 fL (36.4-46.3); Red Blood Count 2.65 M/uL (4.2-5.4); White Blood Count 7.38 K/uL (4.8-10.8)
[2018-11-02] MEDS ORDERED: IRON SUCROSE 100 MG in SYRINGE 0 ML IV ONE (07:00)
[2018-11-02] MEDS ORDERED: SODIUM CHLORIDE 0.9% 1000ML 1,000 ML IV PRN (07:00)
[2018-11-02] MEDS ORDERED: EPOETIN ALFA 10,000 UNITS/ML VIAL IV ONE (07:00)
[2018-11-02 07:44] LABS: Albumin Level 2.4 gm/dl (3.4-5.0); BUN Creatinine Ratio 7.7 (10-20); Calcium 7.9 mg/dl (8.5-10.1); Creatinine Clr Calc Pharmacy 8.3 ml/min; Est GFR (African American) 7.4; Est GFR (Non-African American) 6.4; Phosphorus 7.3 mg/dl (2.5-4.9); Potassium 4.9 mmol/L (3.5-5.1)
[2018-11-02] MEDS: NEPHROCAPS PO SCH (08:08)
[2018-11-02] MEDS: MIDODRINE HCL 10 MG TAB PO SCH (08:09)
[2018-11-02] MEDS: PANTOprazole 40 MG TAB PO SCH (08:09)
[2018-11-02] MEDS: PYRIDOXINE HCL 50 MG TAB PO SCH (08:10)
[2018-11-02] MEDS: MONTELUKAST SODIUM 10 MG TABLET PO SCH (08:10)
[2018-11-02] MEDS: METOPROLOL SUCC 50MG EXT REL TAB PO SCH (08:10)
[2018-11-02] MEDS: CALCITRIOL 0.25 MCG CAPSULE PO SCH (08:10)
[2018-11-02] MEDS: ACETAMINOPHEN 325 MG TAB PO SCH (08:10)
[2018-11-02] MEDS: OXYCODONE HCL 10 MG TABCR (OXYCONTIN) PO SCH ×2 (08:16→21:32)
[2018-11-02 08:46] LABS: Partial Thromboplastin Ratio 2.1
[2018-11-02 08:47] LABS: Partial Thromboplastin Time 57.2 Seconds (21.0-31.0)
[2018-11-02] MEDS: HEPARIN SODIUM/DEXTROSE 25,000 UNITS/500 ML BAG IV SCH ×2 (09:10→23:15)
[2018-11-02] MEDS: INSULIN ASPART 100 UNITS/ML 3 ML PEN SC SCH ×4 (09:37→21:33)
--- NOTE | 2018-11-02 09:45 | Nephrology Progress Note ---
Date of Service November 02, 2018 Assessment & Plan (1) End stage renal disease: -- MWF schedule -- Orders for HD today entered into EMR and discussed with the dialysis nurse meat boner and slicer -- UF goal 3 L as tolerated -- TDC used for treatment -- Midodrine for intradialytic hypotension -- Ongoing discussion regarding goals of care -- Document I/O's -- Repeat metabolic profile tomorrow AM -- Medications are appropriately dosed for IHD (2) Anemia: -- Epogen + venofer to be provided with HD (3) COPD (chronic obstructive pulmonary disease): (4) Clavicle fracture: -- s/p fall -- Surgery deferred due to cardiac risk assessment (5) Atrial fibrillation: -- Anticoagulated with warfarin (6) History of mitral valve replacement with mechanical valve: -- Remains on Heparin gtt (7) Cirrhosis: (8) Palliative care encounter: -- Consult pending Subjective No acute events overnight. Crystal was resting comfortably in bed this morning. She reports feeling slightly better this morning. Denies significant pain or dyspnea. No fevers or chills. Review of Systems Review of Systems: All systems reviewed & are unremarkable except as noted in HPI & below Physical Exam Constitutional: + frail appearing; no acute distress Eyes: no scleral abnormality and no corneal abnormality ENMT: Mouth: no oral mucosal abnormality and oral mucous membranes not dry Neck: normal visual inspection and trachea midline Respiratory: normal respiratory effort; no respiratory distress Auscultation: lungs clear to auscultation bilaterally Cardiovascular: Heart Sounds: normal S1, normal S2 and + murmur Extremities: + AV fistula; no edema Gastrointestinal (Abdomen): Percussion/Palpation: abdomen soft; abdomen nontender Musculoskeletal: Extremities: no cyanosis and no clubbing Skin: normal turgor; no rashes Neurologic: Motor/Sensory: no tremor and no asterixis Psychiatric: Mood: + depressed mood Results & Data Vital Signs (Past 12 Hours) Vital Signs Temp Pulse Pulse Resp BP Pulse Ox 11/02/18 08:00 36.5 C 63 20 112/57 L 97 11/02/18 01:00 64 11/01/18 23:00 36.6 C 64 20 109/48 L 96 Laboratory Results Laboratory Results - last 24 hr 11/01/18 11/01/18 11/01/18 07:23 07:23 11:49 WBC RBC Hgb Hct MCV MCH MCHC RDW Std Deviation RDW Coeff of Marco Plt Count MPV APTT PTT Ratio Sodium Potassium Chloride Carbon Dioxide Anion Gap BUN Creatinine Est Cr Clr Drug Dosing Est GFR ( Amer) Est GFR (Non-Af Amer) BUN/Creatinine Ratio Glucose POC Glucose 200 H Estimat Average Glucose 108 Hemoglobin A1c 5.4 Calcium Phosphorus Albumin Vitamin B12 > 2000 H Folate > 24.00 11/01/18 11/01/18 11/01/18 15:55 16:48 20:33 WBC RBC Hgb Hct MCV MCH MCHC RDW Std Deviation RDW Coeff of Marco Plt Count MPV APTT 61.2 H* PTT Ratio 2.3 Sodium Potassium Chloride Carbon Dioxide Anion Gap BUN Creatinine Est Cr Clr Drug Dosing Est GFR ( Amer) Est GFR (Non-Af Amer) BUN/Creatinine Ratio Glucose POC Glucose 109 H 113 H Estimat Average Glucose Hemoglobin A1c Calcium Phosphorus Albumin Vitamin B12 Folate 11/02/18 11/02/18 11/02/18 06:34 06:34 06:34 WBC 7.38 RBC 2.65 L Hgb 7.7 L Hct 26.4 L MCV 99.6 MCH 29.1 MCHC 29.2 L RDW Std Deviation 80.4 H RDW Coeff of Marco 22.3 H Plt Count 176 MPV 9.8 APTT Cancelled PTT Ratio Cancelled Sodium 130 L Potassium 4.9 Chloride 91 L Carbon Dioxide 27 Anion Gap 12.0 H BUN 46 H Creatinine 5.91 H* D Est Cr Clr Drug Dosing 8.3 Est GFR ( Amer) 7.4 Est GFR (Non-Af Amer) 6.4 BUN/Creatinine Ratio 7.7 L Glucose 96 POC Glucose Estimat Average Glucose Hemoglobin A1c Calcium 7.9 L Phosphorus 7.3 H Albumin 2.4 L Vitamin B12 Folate 11/02/18 11/02/18 07:39 08:10 WBC RBC Hgb Hct MCV MCH MCHC RDW Std Deviation RDW Coeff of Marco Plt Count MPV APTT 57.2 H* PTT Ratio 2.1 Sodium Potassium Chloride Carbon Dioxide Anion Gap BUN Creatinine Est Cr Clr Drug Dosing Est GFR ( Amer) Est GFR (Non-Af Amer) BUN/Creatinine Ratio Glucose POC Glucose 99 Estimat Average Glucose Hemoglobin A1c Calcium Phosphorus Albumin Vitamin B12 Folate PG Care Time/CCT Total # of Minutes Spent Total Time Spent with Patient: Total time spent is greater than 50% in coordination of care (as documented) at patient's floor/unit and/or counseling patient: (1) Anemia Anemia type: unspecified type Qualified Code(s): D64.9 - Anemia, unspecified (2) COPD (chronic obstructive pulmonary disease) COPD type: unspecified COPD Qualified Code(s): J44.9 - Chronic obstructive pulmonary disease, unspecified (3) Atrial fibrillation Atrial fibrillation type: chronic Qualified Code(s): I48.2 - Chronic atrial fibrillation (4) Cirrhosis Hepatic cirrhosis type: other cirrhosis Qualified Code(s): K74.69 - Other cirrhosis of liver
--- NOTE | 2018-11-02 10:26 | Palliative Care Consultation ---
Date of Consultation November 02, 2018 Assessment & Plan (1) Goals of care, counseling/discussion: -78 year old male with PMH ESRD on dialysis M/W/F, diastolic CHF, afib, COPD, DM, liver cirrhosis, and others, presented to the hospital with c/o increased shortness of breath and nausea from [facility]. Hemoglobin was 7.4 on admission (baseline ~8-9 per documentation). CXR showed actually improved pulmonary edema, but patient was on 4LNC instead of her usual 2LNC at baseline. Is on heparin gtt while her warfarin is being restarted and INR is therapeutic. Patient was seen by palliative care several times in the past during admission, reconsulted now to continue discussion about goals of care given patient's many comorbidities and chronic illness. -Met with patient this morning in room 279. She is awake, alert and oriented x4. Denies any specific complaints at this time. -Pain is chronic, she takes oxycodone 10mg ER BID, has fentanyl patch on at 12mcg/hr. Pain is currently in right clavicle where she had a fracture that is unable to be surgically repaired due to poor health status. -Patient states that she was "doing well," until recently when she went to [facility] and became more SOB. Patient states she told some staff she thought she was "going into CHF, but they didn't listen." She does have widespread pitting edema, but pulmonary edema on CXR was improved from previous. -Patient has not been able to ambulate for a couple weeks at least. States in the last month she has been decline. Patient stated, "I wish I would have never even started dialysis and just let nature take its course." We talked about the fact that she is able to stop dialysis any time she wants, but of course that would mean we were focusing on comfort and end of life care. Patient says that her children want her to keep pushing and continue dialysis, but she does know she has the option of stopping. -Patient has some issues with anxiety, especially at bedtime and has trouble sleeping occasionally. She is ordered Valium at night, which she says works well for her. -Plan at this time is to continue treatment as is, go to [facility] again upon discharge. Long-term prognosis is poor. Would be appropriate for hospice care of course if she decides to stop dialysis. -Will following throughout hospitalization. (2) End stage renal disease: (3) SOB (shortness of breath): (4) Valvular heart disease: Supervising Physician Co-Signing Physician Notes Patient known to our service from previous admission. Chart reviewed, patient examined briefly, collaborated with DAYANNA St PE: Patient resting comfortably, no acute distress Respirations: Unlabored CV: Regular rate-heart rate 60, positive lower extremity edema Abdomen: Soft Agree with above note, assessment and plan as per DAYANNA St. Will continue to follow and assist with medical decision making History of Present Illness Reason for Consultation: Goals of care Requesting Physician: Dr. Ayde Wan Attending Physician: Tang Guzman DO History of Present Illness This 78 year old male with PMH ESRD on dialysis M/W/F, diastolic CHF, afib, COPD, DM, liver cirrhosis, and others, presented to the hospital with c/o increased shortness of breath and nausea from [facility]. Hemoglobin was 7.4 on admission (baseline ~8-9 per documentation). CXR showed actually improved pulmonary edema, but patient was on 4LNC instead of her usual 2LNC at baseline. Is on heparin gtt while her warfarin is being restarted and INR is therapeutic. Patient was seen by palliative care several times in the past during admission, reconsulted now to continue discussion about goals of care given patient's many comorbidities and chronic illness. Thank you kindly for this consult. Palliative care team will follow as needed. Allergies Allergy/AdvReac Type Severity Reaction Status Date / Time Penicillins Allergy Severe anaphylaxis Verified 10/31/18 07:35 30yrs ago, also broke out with sores rosuvastatin [From Crestor] Allergy Intermediate MUSCLE Verified 10/31/18 07:35 ACHES & PAINS diltiazem Allergy Unknown unknown Verified 10/31/18 07:35 levofloxacin Allergy Unknown UNKNOWN Verified 10/31/18 07:35 moxifloxacin Allergy Unknown UNKNOWN Verified 10/31/18 07:35 aspirin AdvReac Intermediate increased Verified 10/31/18 07:35 bleeding (on warfarin) atorvastatin AdvReac Intermediate MUSCLE Verified 10/31/18 07:35 ACHES & PAINS doxycycline AdvReac Intermediate GI SYMPTOMS Verified 10/31/18 07:35 nortriptyline AdvReac Intermediate choking on Verified 10/31/18 07:35 food quinidine AdvReac Intermediate flu-like Verified 10/31/18 07:35 symptoms sulfamethoxazole AdvReac Intermediate CONFUSION Verified 10/31/18 07:35 trimethoprim AdvReac Intermediate CONFUSION Verified 10/31/18 07:35 Bactrim AdvReac Unknown CONFUSION Verified 11/10/17 17:54 clonidine AdvReac Unknown Unknown Verified 10/31/18 07:35 hydrocodone AdvReac Unknown Unknown Verified 10/31/18 07:35 NSAIDS (Non-Steroidal AdvReac Unknown AVOID PER Verified 10/31/18 07:35 Anti-Inflamma CASE - [id number] Home Medications Home Medications Medication Instructions Recorded Confirmed Type ranitidine HCl 150 mg PO BID #60 tab 01/01/18 10/31/18 Rx ipratropium-albuterol 0.5 mg-3 3 ml INH QID PRN 02/16/18 10/31/18 History mg(2.5 mg base)/3 mL nebulization soln Lantus Solostar U-100 Insulin 10 unit SUBCUT HS 05/04/18 10/31/18 History calcitriol 0.25 mcg PO 3XWK 05/04/18 10/31/18 History loratadine 10 mg PO QAM 05/04/18 10/31/18 History omeprazole 20 mg PO QAM 05/04/18 10/31/18 History Fleet Enema 1 dose [place] UD PRN 05/29/18 10/31/18 History Florastor 250 mg PO QAM 05/29/18 10/31/18 History bisacodyl [Dulcolax (bisacodyl)] 10 mg [place] DAILY PRN 05/29/18 10/31/18 History diphenhydramine HCl [Benadryl] 25 mg PO Q12 PRN 05/29/18 10/31/18 History ezetimibe [Zetia] 10 mg PO HS 05/29/18 10/31/18 History glucosamine-chondroitin [Osteo 1 tab PO TID 05/29/18 10/31/18 History Bi-Flex] magnesium hydroxide [Milk of 30 ml PO HS PRN 05/29/18 10/31/18 History Magnesia] montelukast [Singulair] 10 mg PO QAM 05/29/18 10/31/18 History Renal Caps 1 cap PO QAM 07/19/18 10/31/18 History cyanocobalamin (vitamin B-12) 1,000 mcg PO HS 07/19/18 10/31/18 History [Vitamin B-12] pyridoxine (vitamin B6) [Vitamin 100 mg PO QAM 07/19/18 10/31/18 History B-6] PreserVision AREDS 1 cap PO BID 08/20/18 10/31/18 History insulin lispro [Humalog U-100 1 sliding scale dose SUBCUT 08/20/18 10/31/18 History Insulin] USEASDIRECTD PRN acetaminophen [Tylenol Arthritis 650 mg PO QAM 10/04/18 10/31/18 History Pain] ondansetron HCl [Zofran] 4 mg PO Q8 PRN 10/04/18 10/31/18 History metoprolol succinate 50 mg PO QAM #30 tab 10/08/18 10/31/18 Rx midodrine 10 mg PO MoWeFr@0900 #30 tab 10/08/18 10/31/18 Rx acetaminophen 325 mg tablet 650 mg PO Q6H PRN tab MDD 3 10/23/18 10/31/18 History GRAMS/24 HOURS. diazepam 5 mg tablet 5 mg PO HS tab 10/23/18 10/31/18 History diclofenac 1 % topical gel 2 g TOPICAL QID PRN 10/23/18 10/31/18 History digoxin 125 mcg tablet 62.5 mcg PO 3XWK 10/23/18 10/31/18 History levothyroxine 200 mcg tablet 200 mcg PO QAM tab 10/23/18 10/31/18 History oxycodone 5 mg tablet 5 mg PO Q12H tab 10/23/18 10/31/18 History fentanyl 1 patch TRANSDERMAL Q72H 10/31/18 10/31/18 History insulin aspart U-100 [Novolog 1 sliding scale dose SUBCUT 10/31/18 10/31/18 History U-100 Insulin aspart] USEASDIRECTD PRN levothyroxine 25 mcg PO QAM 10/31/18 10/31/18 History oxycodone 10 mg PO Q12 10/31/18 10/31/18 History warfarin 2 mg PO HS 10/31/18 10/31/18 History Patient History Medical History Hyponatremia Per review of labs, baseline appears around 127-132. Anticoagulated Warfarin for Afib Compression fracture of lumbar vertebra Greater trochanteric bursitis of left hip Depression Iron deficiency Hypothyroidism CHF (congestive heart failure) Cardiomegaly and mild pulmonary vascular congestion noted on 09/08 CXR. Chronic diastolic CHF, noted to be "stable" at last cardiology office visit 07/28/18 -- "her volume status has been well managed by hemodialysis. Anemia (Acute) Pulmonary hypertension (Chronic) RVSP 71mmHg on 05/2017 echo (done for acute on chronic CHF) Cor pulmonale (chronic) (Chronic) Diabetes mellitus (Chronic 08/25/12) Atrial fibrillation (Chronic 08/25/12) Permanent, on Warfarin. Asthma (Chronic 08/25/12) Cirrhosis (Chronic) COPD (chronic obstructive pulmonary disease) (Chronic) Pleural effusion, right (Chronic) S/P R sided Pleur-X catheter by Dr. Cueva. Removed 09/08. Anxiety Hypertension Mechanical heart valve present Dowd Lee mitral valve, 1985. On home oxygen therapy 2LPM Pacemaker Medtronic. Most recent interrogation 07/28 at cardio office visit. Restrictions of the diet FLUID RESTRICTION: 1500ML/24 HOURS Rhinitis, allergic Surgical History History of mitral valve replacement with mechanical valve On Coumadin therapy - follows with Dr. Araujo - goal INR 2.5-3.5 Dowd-Lee valve S/P placement of cardiac pacemaker Medtronic single-chamber permanent pacemaker. Unipolar lead. At [facility] H/O partial mastectomy with lymph node biopsy. L arm restriction. History of carpal tunnel release History of hysterectomy S/P cholecystectomy Family History Other Diabetes Hypertension Social History Preferred Language: Mongolian Communication Ability: Effective Visual Impairment: Limited Block Feeder Required: No Beliefs That Will Affect Care: None marital status: / Current Living Situation: Longterm Current Living Situation Comment: has brought spouse, who has dementia, home from [facility] Other Information That Helps Us Care for You: No Feels Safe at Home: Yes Safety Concerns: Feels Safe At This Time Smoking Status: Former smoker Do You Dip or Chew Tobacco: No ; Second Hand Exposure: No ; Tobacco Cessation Education Requested by Patient: No Hx Alcohol Use: No Hx Substance Use: No Review of Systems Constitutional: + weakness Ear, Nose, Mouth, Throat: no dysphagia Respiratory: no cough and no dyspnea Cardiovascular: + edema; no chest pain Gastrointestinal: no abdominal pain and no nausea Neurologic: no confusion Psychiatric: + anxiety Physical Exam Constitutional: + ill appearing (chronically); no acute distress ENMT: Ears: no hearing impairment Respiratory: normal respiratory effort; no labored breathing Auscultation: + diminished lung sounds Cardiovascular: Rate/Rhythm: regular rate and regular rhythm Extremities: + edema (+4 pitting edema to BUE, +2 pitting to BLE) Gastrointestinal (Abdomen): Inspection/Auscultation: abdomen normal to inspection and normal bowel sounds Percussion/Palpation: abdomen soft Neurologic: awake; not confused Psychiatric: Orientation: alert and oriented x 3 Results & Data Vital Signs (Past 12 Hours) Vital Signs Temp Pulse Pulse Resp BP Pulse Ox 11/02/18 08:00 36.5 C 63 20 112/57 L 97 11/02/18 01:00 64 11/01/18 23:00 36.6 C 64 20 109/48 L 96 Time Spent Midlevel 75 minutes with >50% of the time spent at bedside with patient discussing condition and GOC.
[2018-11-02] MEDS: DIGOXIN 0.125 MG TAB PO SCH (20:01)
--- NOTE | 2018-11-02 20:06 | Hospitalist Progress Note ---
Date of Service November 02, 2018 Assessment & Plan (1) Shortness of breath: Long-standing complaint for the patient; however, it does appear to be worse from baseline as she now is on 4L NC (up from 2L on discharge). CXR from 11/01 however shows improvement in her pulmonary edema. Likely due to continued volume overload from her ESRD & COPD vs. from her anemia. patient reports that her dyspnea is slightly better even prior to going to HD likely multifactorial with pulmonary edema, chronic heart failure, anemia, deconditioning (2) Anemia: Baseline hgb is ~8-9. Hemoglobin on admission was 7.4. Macrocytic. down slightly to 7.7 on 11/02 - Likely multifactorial from CKD, chronic disease, mild destruction from her valve. - Ferritin 368, B12 is > 2000 so she has no deficiencies -continue EPO per nephrology (3) End stage renal disease: Gets HD -. d/ Dr. Mercado, she had HD on Monday 10/30 with UF of 2.5 liters, tolerated normally scheduled HD on 11/02 - Continue midodrine -> This was started last admission (and beta-jose roberto was lowered) due to hypotension during HD sessions. - Continue Nephrocaps and vitamins (4) History of mitral valve replacement with mechanical valve: She was admitted with an INR of 5.5 last admission. Given vitamin K. Discharged with INR of 1.9 and told to restart warfarin. - repeat INR on 11/03 (5) Diabetes mellitus: Last A1c was 5.8% in 03/2018. - Long-acting and sliding scale insulin - Glycemic pharmacist monitor closely for hypoglycemia since not eating well (6) Atrial fibrillation: EKG on admission showed paced rhythm. - Continue digoxin, beta-jose roberto - Warfarin as above (7) COPD (chronic obstructive pulmonary disease): Per notes, though home med list has no inhalers. - Continue montelukast - DuoNebs PRN (8) Cirrhosis: Thought to be due to hepatic congestion from her chronic volume overload. - Monitor mental status (9) Clavicle fracture: Fractured her clavicle in a fall in September. Had planned to have surgery with Dr. Ramirez of [facility]; however, her pre-op assessment by cardiology appears to have been poor enough that surgery was cancelled. not a surgical candidate use Fentanyl and Oxycodone for pain control (10) Palliative care encounter: palliative continues to follow patient discussed hospice with her today, still wants to pursue hospice (11) Hypothyroidism: TSH was 20.3 on 10/21; however, it was coming down after increase in levothyroxine. - Continue home Synthroid 225 mcg PO daily - Recheck TSH in ~4 weeks. (12) DVT prophylaxis: Heparin gtt for mechanical valve (13) Acute on chronic diastolic (congestive) heart failure: volume overload due to ESRD improved with ultrafiltration the past two days (14) Chronic respiratory failure with hypoxia: stable on 2-4L chronically her dyspnea and hypoxia is multifactorial with heart failure, deconditioning, pulmonary HTN Subjective patient fatigued all day today, no energy at all checked on her several times, sleeping each time, not eating much visited with her and examined her prior to going to HD discussed with her the palliative care option, discussed that she can stop HD at any time she actually said to palliative care provider that she regrets going on HD has been told that she can stop, she wants to hold on for her family appetite is poor c/o pain in right shoulder/clavicle due to fracture reviewed labs discussed with Dr. Mercado, he feels that patient is getting worse, her quality of life has not improved with HD discussed with palliative care providers, they will continue to offer hospice and discuss plans of care Review of Systems Review of Systems: All systems reviewed & are unremarkable except as noted in HPI & below Constitutional: + fatigue, + weakness and + weight loss; no fever, no chills and no sweats Respiratory: + dyspnea; no cough, no pain with cough and no sputum production Cardiovascular: + edema; no chest pain Musculoskeletal: + joint pain (right shoulder and clavicle) Integumentary: + wounds (some healing wounds on arms/legs) Physical Exam Constitutional: well developed and + thin; no acute distress Eyes: PERRL, conjunctivae normal, anicteric sclerae ENMT: external ear and nose normal, oropharynx normal Neck: trachea midline, no thyromegaly Respiratory: normal respiratory effort; no respiratory distress Auscultation: + diminished lung sounds (bases) Cardiovascular: Rate/Rhythm: regular rate and + irregularly irregular Heart Sounds: normal S1 and normal S2; no murmur Extremities: normal capillary refill and + edema Gastrointestinal (Abdomen): normal bowel sounds, soft, nontender, no hepatosplenomegaly Musculoskeletal: Head/Neck/Chest: normocephalic and head atraumatic Extremities: + limited ROM of extremities (right shoulder) and + muscle atrophy; no cyanosis, no clubbing and no petechiae Skin: + turgor decreased, + wound and + skin atrophy Neurologic: patellar DTR's 2+ bilat, sensation intact and PERRL, EOMI, accommodation nl, no face palsy, no dysarthria Psychiatric: Orientation: alert and oriented x 3 Affect: + depressed affect Mood: + depressed mood Lymphatic: no cervical or axillary lymphadenopathy Results & Data Vital Signs (Past 12 Hours) Vital Signs Temp Pulse Pulse Resp BP BP Pulse Ox 11/02/18 20:01 73 11/02/18 19:56 36.6 C 73 22 112/61 96 11/02/18 19:20 36.6 C 72 101/49 L 11/02/18 19:00 71 91/49 L 11/02/18 18:40 66 84/55 L 11/02/18 18:20 66 85/43 L 11/02/18 18:00 70 86/48 L 11/02/18 17:40 72 106/49 L 11/02/18 17:20 68 100/48 L 11/02/18 17:00 73 117/48 L 11/02/18 16:40 60 92/43 L 11/02/18 16:20 63 100/51 L 11/02/18 16:00 66 107/51 L 11/02/18 15:40 60 100/50 L 11/02/18 15:20 60 102/51 L 11/02/18 15:08 36.7 C 68 11/02/18 12:58 36.4 C L 78 20 117/63 95 Laboratory Results Laboratory Results - last 24 hr 11/01/18 11/01/18 11/01/18 07:23 07:23 20:33 WBC RBC Hgb Hct MCV MCH MCHC RDW Std Deviation RDW Coeff of Marco Plt Count MPV APTT PTT Ratio Sodium Potassium Chloride Carbon Dioxide Anion Gap BUN Creatinine Est Cr Clr Drug Dosing Est GFR ( Amer) Est GFR (Non-Af Amer) BUN/Creatinine Ratio Glucose POC Glucose 113 H Estimat Average Glucose 108 Hemoglobin A1c 5.4 Calcium Phosphorus Albumin Vitamin B12 > 2000 H Folate > 24.00 11/02/18 11/02/18 11/02/18 06:34 06:34 06:34 WBC 7.38 RBC 2.65 L Hgb 7.7 L Hct 26.4 L MCV 99.6 MCH 29.1 MCHC 29.2 L RDW Std Deviation 80.4 H RDW Coeff of Marco 22.3 H Plt Count 176 MPV 9.8 APTT Cancelled PTT Ratio Cancelled Sodium 130 L Potassium 4.9 Chloride 91 L Carbon Dioxide 27 Anion Gap 12.0 H BUN 46 H Creatinine 5.91 H* D Est Cr Clr Drug Dosing 8.3 Est GFR ( Amer) 7.4 Est GFR (Non-Af Amer) 6.4 BUN/Creatinine Ratio 7.7 L Glucose 96 POC Glucose Estimat Average Glucose Hemoglobin A1c Calcium 7.9 L Phosphorus 7.3 H Albumin 2.4 L Vitamin B12 Folate 11/02/18 11/02/18 11/02/18 07:39 08:10 11:19 WBC RBC Hgb Hct MCV MCH MCHC RDW Std Deviation RDW Coeff of Marco Plt Count MPV APTT 57.2 H* PTT Ratio 2.1 Sodium Potassium Chloride Carbon Dioxide Anion Gap BUN Creatinine Est Cr Clr Drug Dosing Est GFR ( Amer) Est GFR (Non-Af Amer) BUN/Creatinine Ratio Glucose POC Glucose 99 125 H Estimat Average Glucose Hemoglobin A1c Calcium Phosphorus Albumin Vitamin B12 Folate 11/02/18 20:15 WBC RBC Hgb Hct MCV MCH MCHC RDW Std Deviation RDW Coeff of Maroc Plt Count MPV APTT PTT Ratio Sodium Potassium Chloride Carbon Dioxide Anion Gap BUN Creatinine Est Cr Clr Drug Dosing Est GFR ( Amer) Est GFR (Non-Af Amer) BUN/Creatinine Ratio Glucose POC Glucose 126 H Estimat Average Glucose Hemoglobin A1c Calcium Phosphorus Albumin Vitamin B12 Folate Medications Administered Current Inpatient Medications Acetaminophen (Tylenol) 650 mg PO QAM [facility] Stop: 12/01/18 08:59 Last Admin: 11/02/18 08:10 Dose: 650 mg Documented by: Acetaminophen (Tylenol) 650 mg PO Q6H PRN PRN Reason: Fever Or Pain Stop: 11/30/18 11:07 Last Admin: 11/02/18 20:07 Dose: 650 mg Documented by: Albuterol (Duoneb) 3 ml INH QID PRN PRN Reason: Shortness Of Breath Stop: 11/30/18 11:07 Calcitriol (Rocaltrol) 0.25 mcg PO MoWeFr@0900 [facility] Stop: 12/02/18 08:59 Last Admin: 11/02/18 08:10 Dose: 0.25 mcg Documented by: Cyanocobalamin (Vitamin B-12) 1,000 mcg PO [facility] Stop: 11/30/18 20:59 Last Admin: 11/01/18 20:51 Dose: 1,000 mcg Documented by: Dextrose (Dextrose 50%) 25 - 50 ml IV UD PRN; Protocol PRN Reason: Hypoglycemia Protocol Stop: 11/30/18 15:18 Diazepam (Valium) 5 mg PO [facility] Stop: 11/30/18 20:59 Last Admin: 11/01/18 20:50 Dose: 5 mg Documented by: Diclofenac Sodium (Voltaren 1% Top) 1 appln EXT TID PRN PRN Reason: Shoulder pain Stop: 11/30/18 20:59 Last Admin: 11/02/18 11:03 Dose: 1 appln Documented by: Digoxin (Lanoxin) 0.0625 mg PO MoWeFr@1600 [facility] Stop: 12/02/18 15:59 Last Admin: 11/02/18 20:01 Dose: 0.0625 mg Documented by: Ezetimibe (Zetia) 10 mg PO [facility] Stop: 11/30/18 20:59 Last Admin: 11/01/18 20:51 Dose: 10 mg Documented by: Fentanyl (Duragesic) 12 mcg TD Q3D@1300 [facility] Stop: 11/14/18 12:59 Last Admin: 10/31/18 12:37 Dose: 12 mcg Documented by: Glucagon (Glucagen) 1 mg SQ UD PRN; Protocol PRN Reason: Hypoglycemia Protocol Stop: 11/30/18 15:18 Glucose (Glucose 40%) 15 - 30 gm PO UD PRN; Protocol PRN Reason: Hypoglycemia Protocol Stop: 11/30/18 15:18 Glucose (Dex4 Glucose) 4 - 8 tabs PO UD PRN; Protocol PRN Reason: Hypoglycemia Protocol Stop: 11/30/18 15:18 Heparin Sodium/Dextrose (Heparin Sodium/Dextrose) 25,000 units in 500 mls @ 14 mls/hr IV .Q24H NAY; Protocol Stop: 11/30/18 08:14 Last Admin: 11/02/18 09:10 Dose: 700 units/hr, 14 mls/hr Documented by: Insulin Aspart (Novolog Flexpen) 0 units SC ACHS [facility] Stop: 11/30/18 16:29 Last Admin: 11/02/18 12:35 Dose: 5 units Documented by: Insulin Glargine (Lantus Solostar Pen) 10 units SQ HS [facility] Stop: 11/30/18 20:59 Last Admin: 11/01/18 20:51 Dose: 10 units Documented by: [facility]othy[facility]ine [facility] ([facility]) [facility]: 12/01/18 06:29 Last Admin: 11/02/18 05:30 Dose: 25 mcg Documented by: Levothyroxine Sodium (Synthroid) [facility] Stop: 12/01/18 06:29 Last Admin: 11/02/18 05:30 Dose: 200 mcg Documented by: Metoprolol Succinate (Toprol Xl) 50 mg PO [facility] Stop: 12/01/18 08:59 Last Admin: 11/02/18 08:10 Dose: Not Given Documented by: Midodrine (Proamatine) 10 mg PO MoWeFr@0900 [facility] Stop: 12/02/18 08:59 Last Admin: 11/02/18 08:09 Dose: 10 mg Documented by: Miscellaneous (Fentanyl Patch Check Placement) 1 ea N/A QS [facility] Stop: 11/30/18 15:59 Last Admin: 11/02/18 20:01 Dose: 1 ea Documented by: Miscellaneous (Fentanyl Patch Remove & Waste) 1 ea N/A Q3D@1259 [facility] Stop: 11/30/18 12:58 Last Admin: 10/31/18 12:38 Dose: 1 ea Documented by: Miscellaneous (Carbohydrates For Hypoglycemia) 15 - 30 gm PO UD PRN PRN Reason: Hypoglycemia Treatment Stop: 11/30/18 15:18 Miscellaneous Information (Consult Glycemic Management Pharmacy) 1 ea N/A UD PRN; Protocol PRN Reason: Consult Stop: 11/30/18 15:44 Montelukast Sodium (Singulair) 10 mg PO QAM [facility] Stop: 12/01/18 08:59 Last Admin: 11/02/18 08:10 Dose: 10 mg Documented by: Ondansetron HCl (Zofran Tab) 4 mg PO Q8 PRN PRN Reason: Nausea And Vomiting Stop: 11/30/18 11:07 Oxycodone HCl (Roxicodone Immediate Rel) 5 mg PO Q12H PRN PRN Reason: Pain Stop: 11/14/18 11:07 Last Admin: 11/02/18 12:41 Dose: 5 mg Documented by: Oxycodone HCl (Oxycontin) 10 mg PO Q12 [facility] Stop: 11/14/18 20:59 Last Admin: 11/02/18 08:16 Dose: 10 mg Documented by: Pantoprazole Sodium (Protonix) 40 mg PO QAM [facility] Stop: 12/01/18 08:59 Last Admin: 11/02/18 08:09 Dose: 40 mg Documented by: Pyridoxine HCl (Vitamin B-6) 100 mg PO QAM [facility] Stop: 12/01/18 08:59 Last Admin: 11/02/18 08:10 Dose: 100 mg Documented by: Ranitidine HCl (Zantac) 75 mg PO DAILY [facility]; Protocol Stop: 12/01/18 08:59 Last Admin: 11/02/18 08:11 Dose: 75 mg Documented by: Vitamin B Complex/Folic Acid (Nephrocaps) 1 cap PO QAM [facility] Stop: 12/01/18 08:59 Last Admin: 11/02/18 08:08 Dose: 1 cap Documented by: Warfarin Sodium (Coumadin) 2 mg PO DAILY@1600 [facility] Stop: 11/30/18 15:59 Last Admin: 11/01/18 15:20 Dose: 2 mg Documented by: PG Care Time/CCT Total # of Minutes Spent Total Time Spent with Patient: Total time spent is greater than 50% in coordination of care (as documented) at patient's floor/unit and/or counseling patient: (1) Diabetes mellitus Chronic kidney disease stage: stage 4 (severe) Diabetes mellitus complication detail: with chronic kidney disease Diabetes mellitus complication status: with kidney complications Diabetes mellitus jail insulin use: with termite inspector use Diabetes mellitus type: type 2 Qualified Code(s): E11.22 - Type 2 diabetes mellitus with diabetic chronic kidney disease; N18.4 - Chronic kidney disease, stage 4 (severe); Z79.4 - MCC (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 of insulin (2) Anemia Anemia type: unspecified type Qualified Code(s): D64.9 - Anemia, unspecified (3) Atrial fibrillation Atrial fibrillation type: chronic Qualified Code(s): I48.2 - Chronic atrial fibrillation (4) Hypothyroidism Hypothyroidism type: acquired Qualified Code(s): E03.9 - Hypothyroidism, unspecified (5) Cirrhosis Hepatic cirrhosis type: other cirrhosis Qualified Code(s): K74.69 - Other cirrhosis of liver (6) COPD (chronic obstructive pulmonary disease) COPD type: unspecified COPD Qualified Code(s): J44.9 - Chronic obstructive pulmonary disease, unspecified
[2018-11-02] MEDS: diazePAM 5 MG TABLET PO SCH (21:32)
[2018-11-02] MEDS: INSULIN GLARGINE SOLOSTAR 100 UNITS/ML 3 ML PEN SQ SCH (21:33)
[2018-11-02] MEDS: WARFARIN SOD 2 MG TAB PO SCH (21:35)
[2018-11-02] MEDS: CYANOCOBALAMIN 500 MCG TABLET (VITAMIN B-12) PO SCH (21:37)
[2018-11-02] MEDS: EZETIMIBE 10 MG TABLET PO SCH (21:37)
[2018-11-03] MEDS: OXYCODONE HCL IR 5 MG TAB (IMMEDIATE RELEASE) PO PRN (00:12)
[2018-11-03] MEDS: LEVOTHYROXINE SODIUM 200 MCG TABLET PO SCH (05:55)
[2018-11-03] MEDS: LEVOTHYROXINE SODIUM 25 MCG TABLET PO SCH (05:55)
[2018-11-03 06:07] LABS: Hematocrit (blood only) 25.4 % (37-47); Hemoglobin 7.5 g/dL (12.0-16.0); Mean Corpuscular Hemoglobin 29.4 pg (25-34); Mean Corpuscular Hgb Conc 29.5 g/dL (32-36); Mean Corpuscular Volume 99.6 fL (80-100); Mean Platelet Volume 9.3 fL (7.4-10.4); Nucleated RBC # (auto) 0.03 K/uL (0-0); Nucleated RBC % (auto) 0.3 %; Platelet Count 154 K/uL (130-400); RDW Coefficient of Variation 21.8 % (11.5-14.5); RDW Standard Deviation 79.7 fL (36.4-46.3); Red Blood Count 2.55 M/uL (4.2-5.4); White Blood Count 9.08 K/uL (4.8-10.8)
[2018-11-03 07:12] LABS: Albumin Level 2.5 gm/dl (3.4-5.0); BUN Creatinine Ratio 6.7 (10-20); Calcium 7.8 mg/dl (8.5-10.1); Creatinine Clr Calc Pharmacy 10.2 ml/min; Est GFR (African American) 9.7; Est GFR (Non-African American) 8.3; Potassium 4.3 mmol/L (3.5-5.1)
[2018-11-03 07:41] LABS: INR 1.7 (0.9-1.1); Partial Thromboplastin Ratio > 5.1; Prothrombin Time 17.2 Seconds (9.0-12.0)
[2018-11-03 07:54] LABS: Partial Thromboplastin Time > 139.0 Seconds (21.0-31.0)
[2018-11-03 07:55] LABS: Phosphorus 5.3 mg/dl (2.5-4.9)
--- NOTE | 2018-11-03 09:08 | Nephrology Progress Note ---
Date of Service November 03, 2018 Assessment & Plan (1) End stage renal disease: -- MWF schedule -- TDC used for treatment for comfort -- Midodrine for intradialytic hypotension -- Ongoing discussion regarding goals of care -- Document metabolic profile and monitor metabolic profile pre-HD during admission -- Medications are appropriately dosed for IHD (2) Anemia: -- Chronic, stable -- Epogen + Venofer provided with HD (3) COPD (chronic obstructive pulmonary disease): (4) Clavicle fracture: (5) Atrial fibrillation: -- Anticoagulated (6) History of mitral valve replacement with mechanical valve: -- Remains on Heparin gtt (7) Cirrhosis: Subjective Crystal was sleeping this morning. When awake, she was lethargic. She describes persistent pain in her clavicle. HD completed yesterday without complications, UF 3 L. Crystal did not endorse any dyspnea this morning. Appetite is poor. Review of Systems Review of Systems: Limited due to Crystal's current condition. She did not answer most of my questions except regarding pain and appetite. She would quickly close her eyes and return to sleep. Physical Exam Constitutional: + frail appearing; no acute distress Eyes: no scleral abnormality and no corneal abnormality ENMT: Mouth: no oral mucosal abnormality and oral mucous membranes not dry Neck: normal visual inspection and trachea midline Respiratory: no respiratory distress Auscultation: lungs clear to auscultation bilaterally and + rales Cardiovascular: Heart Sounds: normal S1, normal S2 and + murmur Extremities: + edema and + AV fistula Gastrointestinal (Abdomen): Percussion/Palpation: abdomen soft; abdomen nontender Musculoskeletal: Extremities: no cyanosis and no clubbing Skin: normal turgor; no rashes Neurologic: Motor/Sensory: no tremor and no asterixis Psychiatric: Mood: + depressed mood Results & Data Vital Signs (Past 12 Hours) Vital Signs Temp Pulse Pulse Resp BP Pulse Ox 11/03/18 07:19 36.9 C 77 18 121/63 95 11/03/18 04:00 37.0 C 95 H 22 169/61 H 90 11/02/18 23:52 36.8 C 72 18 137/65 93 11/02/18 23:11 63 Laboratory Results Laboratory Results - last 24 hr 11/02/18 11/02/18 11/03/18 11:19 20:15 05:45 WBC 9.08 RBC 2.55 L Hgb 7.5 L Hct 25.4 L MCV 99.6 MCH 29.4 MCHC 29.5 L RDW Std Deviation 79.7 H RDW Coeff of Marco 21.8 H Plt Count 154 MPV 9.3 Absolute Nucleated RBC 0.03 H Nucleated RBC % (auto) 0.3 PT INR APTT PTT Ratio Sodium Potassium Chloride Carbon Dioxide Anion Gap BUN Creatinine Est Cr Clr Drug Dosing Est GFR ( Amer) Est GFR (Non-Af Amer) BUN/Creatinine Ratio Glucose POC Glucose 125 H 126 H Calcium Phosphorus Albumin 11/03/18 11/03/18 11/03/18 05:45 05:45 07:08 WBC RBC Hgb Hct MCV MCH MCHC RDW Std Deviation RDW Coeff of Marco Plt Count MPV Absolute Nucleated RBC Nucleated RBC % (auto) PT Cancelled 17.2 H INR Cancelled 1.7 H APTT Cancelled > 139.0 H* PTT Ratio Cancelled > 5.1 Sodium 132 L Potassium 4.3 Chloride 95 L Carbon Dioxide 25 Anion Gap 12.0 H BUN 32 H Creatinine 4.74 H* D Est Cr Clr Drug Dosing 10.2 Est GFR ( Amer) 9.7 Est GFR (Non-Af Amer) 8.3 BUN/Creatinine Ratio 6.7 L Glucose 123 H POC Glucose Calcium 7.8 L Phosphorus 5.3 H D Albumin 2.5 L 11/03/18 07:49 WBC RBC Hgb Hct MCV MCH MCHC RDW Std Deviation RDW Coeff of Marco Plt Count MPV Absolute Nucleated RBC Nucleated RBC % (auto) PT INR APTT PTT Ratio Sodium Potassium Chloride Carbon Dioxide Anion Gap BUN Creatinine Est Cr Clr Drug Dosing Est GFR ( Amer) Est GFR (Non-Af Amer) BUN/Creatinine Ratio Glucose POC Glucose 155 H Calcium Phosphorus Albumin PG Care Time/CCT Total # of Minutes Spent Total Time Spent with Patient: Total time spent is greater than 50% in coordination of care (as documented) at patient's floor/unit and/or counseling patient: (1) Anemia Anemia type: unspecified type Qualified Code(s): D64.9 - Anemia, unspecified (2) COPD (chronic obstructive pulmonary disease) COPD type: unspecified COPD Qualified Code(s): J44.9 - Chronic obstructive pulmonary disease, unspecified (3) Atrial fibrillation Atrial fibrillation type: chronic Qualified Code(s): I48.2 - Chronic atrial fibrillation (4) Cirrhosis Hepatic cirrhosis type: other cirrhosis Qualified Code(s): K74.69 - Other cirrhosis of liver
[2018-11-03] MEDS ORDERED: SODIUM CHLORIDE 0.9% 1000ML 1,000 ML IV PRN (09:44)
[2018-11-03] MEDS: OXYCODONE HCL 10 MG TABCR (OXYCONTIN) PO SCH ×2 (09:51→20:37)
[2018-11-03] MEDS: METOPROLOL SUCC 50MG EXT REL TAB PO SCH (09:51)
[2018-11-03] MEDS: NEPHROCAPS PO SCH (09:52)
[2018-11-03] MEDS: MONTELUKAST SODIUM 10 MG TABLET PO SCH (09:52)
[2018-11-03] MEDS: PANTOprazole 40 MG TAB PO SCH (09:52)
[2018-11-03] MEDS: PYRIDOXINE HCL 50 MG TAB PO SCH (09:53)
[2018-11-03] MEDS: CHECK FENTANYL PATCH PLACEMENT SCH ×3 (09:54→23:24)
[2018-11-03] MEDS: ACETAMINOPHEN 325 MG TAB PO SCH (09:55)
[2018-11-03] MEDS: INSULIN ASPART 100 UNITS/ML 3 ML PEN SC SCH ×4 (09:57→20:38)
[2018-11-03 10:01] LABS: Partial Thromboplastin Ratio 4.1
[2018-11-03 10:16] LABS: Partial Thromboplastin Time 110.8 Seconds (21.0-31.0)
--- NOTE | 2018-11-03 11:21 | Palliative Care Progress Note ---
Date of Service November 03, 2018 Assessment & Plan (1) Goals of care, counseling/discussion: -Patient is more lethargic today. Not making any sense, could barely keep eyes open. Vs stable, no respiratory depression. Underwent dialysis yesterday. -Need to engage with family at this point about patient's goals, prognosis, etc. Dr. Guzman to call patient's son today. Palliative care will be available for family meeting if needed. -Patient came from [facility], plan will be to return there. This lethargy is concerning. Poor quality of life. Would qualify for hospice care if that is the route patient/family decide upon. -We will follow. (2) End stage renal disease: (3) SOB (shortness of breath): (4) Valvular heart disease: Subjective patient is extremely lethargic today. More confused. Not able to have conversation, nonsensical speech. Review of Systems Review of Systems: Unobtainable due to cognitive status Physical Exam Constitutional: + ill appearing (chronically); no acute distress ENMT: Ears: no hearing impairment Respiratory: normal respiratory effort; no labored breathing Auscultation: + diminished lung sounds Cardiovascular: Rate/Rhythm: regular rate and regular rhythm Extremities: + edema (+4 pitting edema to BUE, +2 pitting to BLE) Gastrointestinal (Abdomen): Inspection/Auscultation: abdomen normal to inspection and normal bowel sounds Percussion/Palpation: abdomen soft Neurologic: + confused (lethargic) Results & Data Vital Signs (Past 12 Hours) Vital Signs Temp Pulse Resp BP Pulse Ox 11/03/18 07:19 36.9 C 77 18 121/63 95 11/03/18 04:00 37.0 C 95 H 22 169/61 H 90 11/02/18 23:52 36.8 C 72 18 137/65 93 PG Care Time/CCT Total # of Minutes Spent Total Time Spent with Patient: Total time spent is greater than 50% in coordination of care (as documented) at patient's floor/unit and/or counseling patient:
[2018-11-03 11:26] LABS: Partial Thromboplastin Ratio 2.4
[2018-11-03 11:28] LABS: Partial Thromboplastin Time 64.9 Seconds (21.0-31.0)
--- NOTE | 2018-11-03 12:01 | Pharmacy Report ---
PHA: Glycemic Control AP - Date of Service November 03, 2018 - Assessment & Plan The patient is currently receiving 17-23 units of insulin per day depending on degree of PO intake. BSGs ranging 99 - 155 mg/dl over the past 24hrs. * Basal insulin: Lantus 10 units every 24 hours given at bedtime * Correctional Insulin: Novolog Correction per scale ACHS Goal Range: Low 100 mg/dL - High 140 mg/dL Correction Factor: 30 mg/dL/unit * Prandial insulin: Per carb ratio of 1 unit per 9 grams CHO consumed BSGs continue to improve, no changes needed to inpatient regimen at this time. Pharmacy will continue to monitor patient daily and write orders per [facility] inpatient glycemic control protocol. Thanks. * Please note that the plan above was derived based on current level of insulin resistance and hospital stress. These recommendations are appropriate for inpatient admission only. Plan of care upon discharge will need to be reassessed to avoid potential outpatient hypo/hyperglycemia.
[2018-11-03] MEDS ORDERED: HYDROmorphone INJ 0.5 MG/0.5 ML SYR IV STA (15:27)
[2018-11-03] MEDS: fentaNYL 25 MCG/HR TDSY TD SCH (15:39)
[2018-11-03] MEDS: WARFARIN SOD 2 MG TAB PO SCH (15:52)
[2018-11-03 18:36] LABS: Partial Thromboplastin Ratio 3.9
[2018-11-03 18:46] LABS: Partial Thromboplastin Time 106.1 Seconds (21.0-31.0)
--- NOTE | 2018-11-03 20:32 | Hospitalist Progress Note ---
Date of Service November 03, 2018 Assessment & Plan (1) Shortness of breath: Long-standing complaint for the patient; however, it does appear to be worse from baseline as she now is on 4L NC (up from 2L on discharge). CXR from 11/01 however shows improvement in her pulmonary edema. Likely due to continued volume overload from her ESRD & COPD vs. from her anemia. patient reports that her dyspnea is slightly better even prior to going to HD likely multifactorial with pulmonary edema, chronic heart failure, anemia, deconditioning breathing better after additional HD session on 11/03 (2) Anemia: Baseline hgb is ~8-9. Hemoglobin on admission was 7.4. Macrocytic. down slightly to 7.5 on 11/03 - Likely multifactorial from CKD, chronic disease, mild destruction from her valve. - Ferritin 368, B12 is > 2000 so she has no deficiencies -continue EPO per nephrology (3) End stage renal disease: Gets HD --. d/w Dr. Mercado, she had HD on Monday 10/30 with UF of 2.5 liters, tolerated normally scheduled HD on 11/02 and extra HD session on 11/03 for volume removal plan for normal HD on 11/04 - Continue midodrine -> This was started last admission (and beta-jose roberto was lowered) due to hypotension during HD sessions. - Continue Nephrocaps and vitamins (4) History of mitral valve replacement with mechanical valve: She was admitted with an INR of 5.5 last admission. Given vitamin K. Discharged with INR of 1.9 and told to restart warfarin. - INR up to 1.7 (5) Diabetes mellitus: Last A1c was 5.8% in 03/2018. - Long-acting and sliding scale insulin - Glycemic pharmacist monitor closely for hypoglycemia since not eating well (6) Atrial fibrillation: EKG on admission showed paced rhythm. - Continue digoxin, beta-jose roberto - Warfarin as above (7) COPD (chronic obstructive pulmonary disease): Per notes, though home med list has no inhalers. - Continue montelukast - DuoNebs PRN (8) Cirrhosis: Thought to be due to hepatic congestion from her chronic volume overload. - Monitor mental status (9) Clavicle fracture: Fractured her clavicle in a fall in September. Had planned to have surgery with Dr. Ramirez of [facility] orthopedics; however, her pre-op assessment by cardiology appears to have been poor enough that surgery was cancelled. not a surgical candidate use Fentanyl and Oxycodone for pain control increased Fentanyl to 25mcg and added Dilaudid 0.5mg IV for breakthrough (10) Palliative care encounter: palliative continues to follow patient will attempt to have meeting with patient on 11/04 (11) Hypothyroidism: TSH was 20.3 on 10/21; however, it was coming down after increase in levothyroxine. - Continue home Synthroid 225 mcg PO daily - Recheck TSH in ~4 weeks. (12) DVT prophylaxis: Heparin gtt for mechanical valve (13) Acute on chronic diastolic (congestive) heart failure: volume overload due to ESRD improved with ultrafiltration the past two days (14) Chronic respiratory failure with hypoxia: stable on 2-4L chronically her dyspnea and hypoxia is multifactorial with heart failure, deconditioning, pulmonary HTN Subjective patient laying in bed all day, sleeping a lot too weak to feed herself today, required nurses aide to help her crying due to severity of pain, great deal of discomfort long discussion with patient's son over the phone discussed my concerns that she is in constant pain, no quality of life, HD is not improving her life she has stated that she is holding on for her family he said that he and his sister are in support of her going on hospice, in support of her stopping hemodialysis they have told her this he says that she is very anxious, scared to because once she makes that decision she knows she will plan to try to have a meeting with the patient with palliative on 11/04 discussed my conversation with palliative care, they will attempt to talk with patient on 11/04 due to patient's pain, increased Fentanyl patch to 25mcg and added Dilaudid 0.5mg IV PRN Review of Systems Review of Systems: All systems reviewed & are unremarkable except as noted in HPI & below Constitutional: + fatigue, + weakness and + weight loss; no fever, no chills and no sweats Respiratory: + dyspnea; no cough, no pain with cough and no sputum production Cardiovascular: + edema; no chest pain Musculoskeletal: + joint pain (right shoulder and clavicle) Integumentary: + wounds (some healing wounds on arms/legs) Physical Exam Constitutional: well developed, + acute distress (mild due to pain) and + thin Eyes: PERRL, conjunctivae normal, anicteric sclerae ENMT: external ear and nose normal, oropharynx normal Neck: trachea midline, no thyromegaly Respiratory: normal respiratory effort; no respiratory distress Auscultation: + diminished lung sounds (bases) Cardiovascular: Rate/Rhythm: regular rate and + irregularly irregular Heart Sounds: normal S1 and normal S2; no murmur Extremities: normal capillary refill and + edema Gastrointestinal (Abdomen): normal bowel sounds, soft, nontender, no hepatosplenomegaly Musculoskeletal: Head/Neck/Chest: normocephalic and head atraumatic Extremities: + limited ROM of extremities (right shoulder) and + muscle atrophy; no cyanosis, no clubbing and no petechiae Skin: + turgor decreased, + wound and + skin atrophy Neurologic: patellar DTR's 2+ bilat, sensation intact and PERRL, EOMI, accommodation nl, no face palsy, no dysarthria Psychiatric: Orientation: alert and oriented x 3 Affect: + depressed affect Mood: + depressed mood Lymphatic: no cervical or axillary lymphadenopathy Results & Data Vital Signs (Past 12 Hours) Vital Signs Temp Pulse Pulse Resp BP BP Pulse Ox 11/03/18 19:33 36.4 C L 61 20 103/57 L 95 11/03/18 16:30 61 11/03/18 16:00 36.5 C 74 18 110/40 L 95 11/03/18 13:30 36.6 C 79 133/60 11/03/18 13:00 75 109/63 11/03/18 12:43 75 89/46 L 11/03/18 12:20 68 95/43 L 11/03/18 12:00 74 128/69 11/03/18 11:40 63 105/48 L 11/03/18 11:20 64 112/52 L 11/03/18 11:00 37.0 C 64 PG Care Time/CCT Total # of Minutes Spent Total Time Spent with Patient: Total time spent is greater than 50% in coordination of care (as documented) at patient's floor/unit and/or counseling patient: (1) Diabetes mellitus Chronic kidney disease stage: stage 4 (severe) Diabetes mellitus complication detail: with chronic kidney disease Diabetes mellitus complication status: with kidney complications Diabetes mellitus detention insulin use: with detention use Diabetes mellitus type: type 2 Qualified Code(s): E11.22 - Type 2 diabetes mellitus with diabetic chronic kidney disease; N18.4 - Chronic kidney disease, stage 4 (severe); Z79.4 - intermission coordinator (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 of insulin (2) Anemia Anemia type: unspecified type Qualified Code(s): D64.9 - Anemia, unspecified (3) Atrial fibrillation Atrial fibrillation type: chronic Qualified Code(s): I48.2 - Chronic atrial fibrillation (4) Hypothyroidism Hypothyroidism type: acquired Qualified Code(s): E03.9 - Hypothyroidism, unspecified (5) Cirrhosis Hepatic cirrhosis type: other cirrhosis Qualified Code(s): K74.69 - Other cirrhosis of liver (6) COPD (chronic obstructive pulmonary disease) COPD type: unspecified COPD Qualified Code(s): J44.9 - Chronic obstructive pulmonary disease, unspecified
[2018-11-03] MEDS: INSULIN GLARGINE SOLOSTAR 100 UNITS/ML 3 ML PEN SQ SCH (20:37)
[2018-11-03] MEDS: diazePAM 5 MG TABLET PO SCH (20:37)
[2018-11-03] MEDS: EZETIMIBE 10 MG TABLET PO SCH (20:40)
[2018-11-03] MEDS: CYANOCOBALAMIN 500 MCG TABLET (VITAMIN B-12) PO SCH (20:40)
[2018-11-03] MEDS: fentaNYL 12 MCG/HR TDSY TD SCH (23:08)
[2018-11-03] MEDS: HYDROmorphone INJ 0.5 MG/0.5 ML SYR IV PRN (23:23)
[2018-11-03] MEDS: DICLOFENAC SOD 1% GEL 100 GM TUBE EXT PRN (23:24)
[2018-11-04 02:40] LABS: Partial Thromboplastin Ratio 1.8
[2018-11-04 02:41] LABS: Partial Thromboplastin Time 48.7 Seconds (21.0-31.0)
[2018-11-04] MEDS: LEVOTHYROXINE SODIUM 25 MCG TABLET PO SCH (04:58)
[2018-11-04] MEDS: LEVOTHYROXINE SODIUM 200 MCG TABLET PO SCH (04:58)
[2018-11-04] MEDS: HEPARIN SODIUM/DEXTROSE 25,000 UNITS/500 ML BAG IV SCH (06:00)
[2018-11-04] MEDS ORDERED: SODIUM CHLORIDE 0.9% 1000ML 1,000 ML IV PRN (07:00)
[2018-11-04 07:55] LABS: Hematocrit (blood only) 27.2 % (37-47); Hemoglobin 7.9 g/dL (12.0-16.0); Mean Corpuscular Hemoglobin 29.3 pg (25-34); Mean Corpuscular Volume 100.7 fL (80-100); Mean Platelet Volume 9.8 fL (7.4-10.4); Nucleated RBC # (auto) 0.02 K/uL (0-0); Nucleated RBC % (auto) 0.2 %; Platelet Count 151 K/uL (130-400); RDW Coefficient of Variation 21.7 % (11.5-14.5); RDW Standard Deviation 80.1 fL (36.4-46.3); White Blood Count 7.48 K/uL (4.8-10.8)
[2018-11-04 07:56] LABS: Albumin Level 2.4 gm/dl (3.4-5.0); BUN Creatinine Ratio 6.9 (10-20); Calcium 8.5 mg/dl (8.5-10.1); Est GFR (African American) 10.7; Est GFR (Non-African American) 9.2; Potassium 4.3 mmol/L (3.5-5.1)
[2018-11-04 07:57] LABS: Phosphorus 6.3 mg/dl (2.5-4.9)
[2018-11-04] MEDS ORDERED: IRON SUCROSE 100 MG in SYRINGE 0 ML IV SCH (09:00)
[2018-11-04] MEDS ORDERED: EPOETIN ALFA 10,000 UNITS/ML VIAL IV SCH (09:00)
--- NOTE | 2018-11-04 09:18 | Pharmacy Report ---
Pharmacy Glycemic Short Note 2 - Date of Service November 04, 2018 - Glycemic Short BSG Results (Last 24 hours): 11/03/18 11/03/18 11/04/18 16:43 20:27 06:59 Glucose 76 POC Glucose 112 H 103 H 11/04/18 11/04/18 11/04/18 07:43 08:12 08:31 Glucose POC Glucose 59 L* 64 L* 67 L* 11/04/18 09:02 Glucose POC Glucose 74 ASSESSMENT: * Pt had a low FBS this AM: 59mg/dL. Attributable to evening dose of lantus, 10units (home Rx). Will make adjustments to lantus to mitigate future lows. PLAN FOR INPATIENT GLYCEMIC CONTROL: * Basal insulin * Lantus scale @HS * give 5 units for BSGs <110 * give 10 units (home Rx) for BSGs >/=110 * Bolus insulin * NovoLog per scale ACHS or Q6hrs while NPO * Goal Range: Low 100 mg/dL - High 140 mg/dL * Correction Factor: 30 mg/dL/unit * Nutritional / Prandial insulin per carb ratio of 1 unit per 9 grams CHO consumed
--- NOTE | 2018-11-04 09:52 | Nephrology Progress Note ---
Date of Service November 04, 2018 Assessment & Plan (1) End stage renal disease: -- MWF schedule -- Orders for HD today were entered into the EMR and reviewed with the patient -- Completed HD Friday, Friday, Friday this week for UF -- TDC used for treatment due to discomfort in left arm related to clavicle fracture and difficulty positioning needles in AVF -- Midodrine for intradialytic hypotension -- Document metabolic profile and monitor metabolic profile pre-HD during admission -- Medications are appropriately dosed for IHD (2) Anemia: -- Chronic, stable -- Epogen 75168 units and Venofer 100 mg provided with HD today (3) COPD (chronic obstructive pulmonary disease): (4) Clavicle fracture: -- s/p fall prior to admission -- Surgery deferred due to cardiac risk assessment (5) Atrial fibrillation: -- Anticoagulated (6) History of mitral valve replacement with mechanical valve: (7) Cirrhosis: Thought to be due to hepatic congestion from her chronic volume overload. - Monitor mental status Subjective No acute events overnight. Crystal completed an abridged dialysis treatment yesterday for additional UF. She tolerated treatment well. Crystal was seen and evaluated during hemodialysis this morning. She is tolerating treatment well. BP acceptable. Qb at goal. Blood glucose low prior to treatment. Crystal states that her appetite is improving. She is breathing comfortably. Review of Systems Review of Systems: All systems reviewed & are unremarkable except as noted in HPI & below Physical Exam Constitutional: + frail appearing; no acute distress Eyes: no scleral abnormality and no corneal abnormality ENMT: Mouth: no oral mucosal abnormality and oral mucous membranes not dry Neck: normal visual inspection and trachea midline Respiratory: no respiratory distress Auscultation: lungs clear to auscultation bilaterally and + rales Cardiovascular: Heart Sounds: normal S1, normal S2 and + murmur Extremities: + edema and + AV fistula Gastrointestinal (Abdomen): Percussion/Palpation: abdomen soft; abdomen nontender Musculoskeletal: Extremities: no cyanosis and no clubbing Skin: normal turgor; no rashes Neurologic: Motor/Sensory: no tremor and no asterixis Psychiatric: Mood: + depressed mood Results & Data Vital Signs (Past 12 Hours) Vital Signs Temp Pulse Pulse Resp BP BP BP 11/04/18 09:20 67 104/59 L 11/04/18 08:44 36.5 C 58 L 08/21/19 07:28 36.4 C L 60 20 86/42 L 90/50 L 11/04/18 04:03 94/45 L 11/04/18 04:00 36.4 C L 62 18 110/66 11/04/18 00:00 63 11/03/18 23:00 36.4 C L 62 20 105/60 Pulse Ox 11/04/18 09:20 11/04/18 08:44 11/04/18 07:28 100 11/04/18 04:03 11/04/18 04:00 100 11/04/18 00:00 11/03/18 23:00 98 Laboratory Results Laboratory Results - last 24 hr 11/03/18 11/03/18 11/03/18 09:32 10:59 16:43 WBC RBC Hgb Hct MCV MCH MCHC RDW Std Deviation RDW Coeff of Marco Plt Count MPV Absolute Nucleated RBC Nucleated RBC % (auto) APTT 110.8 H* 64.9 H* PTT Ratio 4.1 2.4 Sodium Potassium Chloride Carbon Dioxide Anion Gap BUN Creatinine Est Cr Clr Drug Dosing Est GFR ( Amer) Est GFR (Non-Af Amer) BUN/Creatinine Ratio Glucose POC Glucose 112 H Calcium Phosphorus Albumin 11/03/18 11/03/18 11/04/18 18:04 20:27 01:52 WBC RBC Hgb Hct MCV MCH MCHC RDW Std Deviation RDW Coeff of Marco Plt Count MPV Absolute Nucleated RBC Nucleated RBC % (auto) APTT 106.1 H* 48.7 H* PTT Ratio 3.9 1.8 Sodium Potassium Chloride Carbon Dioxide Anion Gap BUN Creatinine Est Cr Clr Drug Dosing Est GFR ( Amer) Est GFR (Non-Af Amer) BUN/Creatinine Ratio Glucose POC Glucose 103 H Calcium Phosphorus Albumin 11/04/18 11/04/18 11/04/18 06:59 06:59 07:43 WBC 7.48 RBC 2.70 L Hgb 7.9 L Hct 27.2 L MCV 100.7 H MCH 29.3 MCHC 29.0 L RDW Std Deviation 80.1 H RDW Coeff of Marco 21.7 H Plt Count 151 MPV 9.8 Absolute Nucleated RBC 0.02 H Nucleated RBC % (auto) 0.2 APTT PTT Ratio Sodium 131 L Potassium 4.3 Chloride 95 L Carbon Dioxide 27 Anion Gap 9.0 BUN 30 H Creatinine 4.36 H D Est Cr Clr Drug Dosing 11.0 Est GFR ( Amer) 10.7 Est GFR (Non-Af Amer) 9.2 BUN/Creatinine Ratio 6.9 L Glucose 76 POC Glucose 59 L* Calcium 8.5 Phosphorus 6.3 H Albumin 2.4 L 11/04/18 11/04/18 11/04/18 08:12 08:31 09:02 WBC RBC Hgb Hct MCV MCH MCHC RDW Std Deviation RDW Coeff of Marco Plt Count MPV Absolute Nucleated RBC Nucleated RBC % (auto) APTT PTT Ratio Sodium Potassium Chloride Carbon Dioxide Anion Gap BUN Creatinine Est Cr Clr Drug Dosing Est GFR ( Amer) Est GFR (Non-Af Amer) BUN/Creatinine Ratio Glucose POC Glucose 64 L* 67 L* 74 Calcium Phosphorus Albumin PG Care Time/CCT Total # of Minutes Spent Total Time Spent with Patient: Total time spent is greater than 50% in coordination of care (as documented) at patient's floor/unit and/or counseling patient: (1) Anemia Anemia type: unspecified type Qualified Code(s): D64.9 - Anemia, unspecified (2) COPD (chronic obstructive pulmonary disease) COPD type: unspecified COPD Qualified Code(s): J44.9 - Chronic obstructive pulmonary disease, unspecified (3) Atrial fibrillation Atrial fibrillation type: chronic Qualified Code(s): I48.2 - Chronic atrial fibrillation (4) Cirrhosis Hepatic cirrhosis type: other cirrhosis Qualified Code(s): K74.69 - Other cirrhosis of liver
[2018-11-04] MEDS: ACETAMINOPHEN 325 MG TAB PO SCH (10:07)
[2018-11-04] MEDS: OXYCODONE HCL 10 MG TABCR (OXYCONTIN) PO SCH ×2 (10:07→20:29)
[2018-11-04] MEDS: MIDODRINE HCL 10 MG TAB PO SCH (10:08)
[2018-11-04] MEDS: PYRIDOXINE HCL 50 MG TAB PO SCH (10:08)
[2018-11-04] MEDS: NEPHROCAPS PO SCH (10:10)
[2018-11-04] MEDS: CALCITRIOL 0.25 MCG CAPSULE PO SCH (10:10)
[2018-11-04] MEDS: PANTOprazole 40 MG TAB PO SCH (10:10)
[2018-11-04] MEDS: METOPROLOL SUCC 50MG EXT REL TAB PO SCH (10:11)
[2018-11-04] MEDS: MONTELUKAST SODIUM 10 MG TABLET PO SCH (10:11)
[2018-11-04] MEDS: CHECK FENTANYL PATCH PLACEMENT SCH ×3 (10:12→23:39)
[2018-11-04] MEDS: INSULIN ASPART 100 UNITS/ML 3 ML PEN SC SCH ×4 (10:14→20:35)
[2018-11-04] MEDS: WARFARIN SOD 2 MG TAB PO SCH (16:11)
[2018-11-04] MEDS: OXYCODONE HCL IR 5 MG TAB (IMMEDIATE RELEASE) PO PRN (16:21)
[2018-11-04] MEDS: DICLOFENAC SOD 1% GEL 100 GM TUBE EXT PRN ×3 (16:22→23:46)
[2018-11-04] MEDS: DIGOXIN 0.125 MG TAB PO SCH (16:42)
[2018-11-04] MEDS: diazePAM 5 MG TABLET PO SCH (20:29)
[2018-11-04] MEDS: INSULIN GLARGINE SOLOSTAR 100 UNITS/ML 3 ML PEN SQ SCH (20:34)
[2018-11-04] MEDS: CYANOCOBALAMIN 500 MCG TABLET (VITAMIN B-12) PO SCH (20:36)
[2018-11-04] MEDS: EZETIMIBE 10 MG TABLET PO SCH (20:37)
--- NOTE | 2018-11-04 21:55 | Hospitalist Progress Note ---
Date of Service November 04, 2018 Assessment & Plan (1) Shortness of breath: Long-standing complaint for the patient; however, it does appear to be worse from baseline as she now is on 4L NC (up from 2L on discharge). CXR from 11/01 however shows improvement in her pulmonary edema. Likely due to continued volume overload from her ESRD & COPD vs. from her anemia. patient reports that her dyspnea is slightly better even prior to going to HD likely multifactorial with pulmonary edema, chronic heart failure, anemia, deconditioning breathing better after additional HD session on 11/03 (2) Anemia: Baseline hgb is ~8-9. Hemoglobin on admission was 7.4. Macrocytic. 7.9 on 11/04 - Likely multifactorial from CKD, chronic disease, mild destruction from her valve. - Ferritin 368, B12 is > 2000 so she has no deficiencies -continue EPO per nephrology (3) End stage renal disease: Gets HD --. d/w Dr. Mercado, she had HD on Monday 10/30 with UF of 2.5 liters, tolerated normally scheduled HD on 11/02 and extra HD session on 11/03 for volume removal slept through most of HD on 11/04 plan to discuss goals of care with patient tomorrow, palliative care will help - Continue midodrine -> This was started last admission (and beta-jose roberto was lowered) due to hypotension during HD sessions. - Continue Nephrocaps and vitamins (4) History of mitral valve replacement with mechanical valve: She was admitted with an INR of 5.5 last admission. Given vitamin K. Discharged with INR of 1.9 and told to restart warfarin. - INR not checked today, plan to check tomorrow (5) Diabetes mellitus: Last A1c was 5.8% in 03/2018. - Long-acting and sliding scale insulin - Glycemic pharmacist monitor closely for hypoglycemia since not eating well (6) Atrial fibrillation: EKG on admission showed paced rhythm. - Continue digoxin, beta-jose roberto - Warfarin as above (7) COPD (chronic obstructive pulmonary disease): Per notes, though home med list has no inhalers. - Continue montelukast - DuoNebs PRN (8) Cirrhosis: Thought to be due to hepatic congestion from her chronic volume overload. - Monitor mental status (9) Clavicle fracture: Fractured her clavicle in a fall in September. Had planned to have surgery with Dr. Ramirez of [facility] orth[facility]; however, her pre-op assessment by cardiology appears to have been poor enough that surgery was cancelled. not a surgical candidate use Fentanyl and Oxycodone for pain control increased Fentanyl to 25mcg and added Dilaudid 0.5mg IV for breakthrough pain better controlled on 11/04, able to rest most of the day (10) Palliative care encounter: palliative continues to follow patient will attempt to have meeting with patient on 11/05, she was sleeping all day on 11/04 (11) Hypothyroidism: TSH was 20.3 on 10/21; however, it was coming down after increase in levothyroxine. - Continue home Synthroid 225 mcg PO daily - Recheck TSH in ~4 weeks. (12) DVT prophylaxis: Heparin gtt for mechanical valve (13) Acute on chronic diastolic (congestive) heart failure: volume overload due to ESRD improved with ultrafiltration, no acute component on 11/04 (14) Chronic respiratory failure with hypoxia: stable on 2-4L chronically her dyspnea and hypoxia is multifactorial with heart failure, deconditioning, pulmonary HTN Subjective attempted to see patient three times today, she was soundly sleeping each time first time was during HD the second two times were this afternoon, she was sleeping heavily, could not arouse she did not appear to be in pain at all per her son, she has been sleeping a lot the past two weeks palliative attempted to see her as well, they could not have a meaningful conversation with her will regroup tomorrow morning and she should be more awake since it is not hemodialysis day reviewed labs Review of Systems Review of Systems: Unobtainable due to cognitive status Physical Exam Constitutional: well developed, + acute distress (mild due to pain) and + thin Eyes: PERRL, conjunctivae normal, anicteric sclerae ENMT: external ear and nose normal, oropharynx normal Neck: trachea midline, no thyromegaly Respiratory: normal respiratory effort; no respiratory distress Auscultation: + diminished lung sounds (bases) Cardiovascular: Rate/Rhythm: regular rate and + irregularly irregular Heart Sounds: normal S1 and normal S2; no murmur Extremities: normal capillary refill and + edema Gastrointestinal (Abdomen): normal bowel sounds, soft, nontender, no hepatosplenomegaly Musculoskeletal: Head/Neck/Chest: normocephalic and head atraumatic Extremities: + limited ROM of extremities (right shoulder) and + muscle atrophy; no cyanosis, no clubbing and no petechiae Skin: + turgor decreased, + wound and + skin atrophy Neurologic: patellar DTR's 2+ bilat, sensation intact and PERRL, EOMI, accommodation nl, no face palsy, no dysarthria Psychiatric: Orientation: + not alert (lethargic all day) Lymphatic: no cervical or axillary lymphadenopathy Results & Data Vital Signs (Past 12 Hours) Vital Signs Temp Pulse Pulse Resp BP BP Pulse Ox 11/04/18 19:20 36.7 C 67 18 94/45 L 100 11/04/18 16:30 64 11/04/18 15:20 36.7 C 64 18 99/49 L 99 11/04/18 14:59 92 11/04/18 12:25 36.5 C 67 91/47 L 11/04/18 11:44 65 95/40 L 11/04/18 11:40 59 L 79/36 L 11/04/18 11:24 59 L 86/38 L 11/04/18 11:20 62 79/38 L 11/04/18 11:00 68 90/44 L 11/04/18 10:40 71 95/42 L 11/04/18 10:20 70 101/48 L 11/04/18 10:00 68 98/36 L Laboratory Results Laboratory Results - last 24 hr 11/04/18 11/04/18 11/04/18 01:52 06:59 06:59 WBC 7.48 RBC 2.70 L Hgb 7.9 L Hct 27.2 L MCV 100.7 H MCH 29.3 MCHC 29.0 L RDW Std Deviation 80.1 H RDW Coeff of Marco 21.7 H Plt Count 151 MPV 9.8 Absolute Nucleated RBC 0.02 H Nucleated RBC % (auto) 0.2 APTT 48.7 H* PTT Ratio 1.8 Sodium 131 L Potassium 4.3 Chloride 95 L Carbon Dioxide 27 Anion Gap 9.0 BUN 30 H Creatinine 4.36 H D Est Cr Clr Drug Dosing 11.0 Est GFR ( Amer) 10.7 Est GFR (Non-Af Amer) 9.2 BUN/Creatinine Ratio 6.9 L Glucose 76 POC Glucose Calcium 8.5 Phosphorus 6.3 H Albumin 2.4 L 11/04/18 11/04/18 11/04/18 07:43 08:12 08:31 WBC RBC Hgb Hct MCV MCH MCHC RDW Std Deviation RDW Coeff of Marco Plt Count MPV Absolute Nucleated RBC Nucleated RBC % (auto) APTT PTT Ratio Sodium Potassium Chloride Carbon Dioxide Anion Gap BUN Creatinine Est Cr Clr Drug Dosing Est GFR ( Amer) Est GFR (Non-Af Amer) BUN/Creatinine Ratio Glucose POC Glucose 59 L* 64 L* 67 L* Calcium Phosphorus Albumin 11/04/18 11/04/18 11/04/18 09:02 11:52 16:33 WBC RBC Hgb Hct MCV MCH MCHC RDW Std Deviation RDW Coeff of Marco Plt Count MPV Absolute Nucleated RBC Nucleated RBC % (auto) APTT PTT Ratio Sodium Potassium Chloride Carbon Dioxide Anion Gap BUN Creatinine Est Cr Clr Drug Dosing Est GFR ( Amer) Est GFR (Non-Af Amer) BUN/Creatinine Ratio Glucose POC Glucose 74 90 103 H Calcium Phosphorus Albumin 11/04/18 20:13 WBC RBC Hgb Hct MCV MCH MCHC RDW Std Deviation RDW Coeff of Marco Plt Count MPV Absolute Nucleated RBC Nucleated RBC % (auto) APTT PTT Ratio Sodium Potassium Chloride Carbon Dioxide Anion Gap BUN Creatinine Est Cr Clr Drug Dosing Est GFR ( Amer) Est GFR (Non-Af Amer) BUN/Creatinine Ratio Glucose POC Glucose 117 H Calcium Phosphorus Albumin Medications Administered Current Inpatient Medications Acetaminophen (Tylenol) 650 [facility] Stop: 12/01/18 08:59 Last Admin: 11/04/18 10:07 Dose: 650 mg Documented by: Acetaminophen (Tylenol) 650 mg PO Q6H PRN PRN Reason: Fever Or Pain Stop: 11/30/18 11:07 Last Admin: 11/02/18 20:07 Dose: 650 mg Documented by: Albuterol (Duoneb) 3 ml INH QID PRN PRN Reason: Shortness Of Breath Stop: 11/30/18 11:07 Calcitriol (Rocaltrol) 0.25 mcg PO MoWeFr@0900 [facility] Stop: 12/02/18 08:59 Last Admin: 11/04/18 10:10 Dose: 0.25 mcg Documented by: Cyanocobalamin (Vitamin B-12) 1,000 mcg PO HS [facility] Stop: 11/30/18 20:59 Last Admin: 11/04/18 20:36 Dose: 1,000 mcg Documented by: Dextrose (Dextrose 50%) 25 - 50 ml IV UD PRN; Protocol PRN Reason: Hypoglycemia Protocol Stop: 11/30/18 15:18 Diazepam (Valium) 5 mg PO HS NAY Stop: 11/30/18 20:59 Last Admin: 11/04/18 20:29 Dose: 5 mg Documented by: Diclofenac Sodium (Voltaren 1% Top) 1 appln EXT TID PRN PRN Reason: Shoulder pain Stop: 11/30/18 20:59 Last Admin: 11/04/18 20:37 Dose: 1 appln Documented by: Digoxin (Lanoxin) 0.0625 mg PO MoWeFr@1600 NAY Stop: 12/02/18 15:59 Last Admin: 11/04/18 16:42 Dose: 0.0625 mg Documented by: Diphenhydramine HCl (Benadryl Capsule) 25 mg PO Q6H PRN PRN Reason: Itching Stop: 12/04/18 18:19 Last Admin: 11/04/18 20:29 Dose: 25 mg Documented by: Ezetimibe (Zetia) 10 mg PO HS NAY Stop: 11/30/18 20:59 Last Admin: 11/04/18 20:37 Dose: 10 mg Documented by: Fentanyl (Duragesic) 25 mcg TD Q3D@1300 NAY Stop: 11/17/18 15:59 Last Admin: 11/03/18 15:39 Dose: 25 mcg Documented by: Glucagon (Glucagen) 1 mg SQ UD PRN; Protocol PRN Reason: Hypoglycemia Protocol Stop: 11/30/18 15:18 Glucose (Glucose 40%) 15 - 30 gm PO UD PRN; Protocol PRN Reason: Hypoglycemia Protocol Stop: 11/30/18 15:18 Last Admin: 11/04/18 08:51 Dose: 15 gm Documented by: Glucose (Dex4 Glucose) 4 - 8 tabs PO UD PRN; Protocol PRN Reason: Hypoglycemia Protocol Stop: 11/30/18 15:18 Hydromorphone HCl (Dilaudid) 0.5 mg IV HS PRN PRN Reason: Pain Stop: 11/17/18 16:46 Last Admin: 11/03/18 23:23 Dose: 0.5 mg Documented by: Heparin Sodium/Dextrose (Heparin Sodium/Dextrose) 25,000 units in 500 mls @ 7 mls/hr IV .Q24H [facility]; Protocol Stop: 11/30/18 08:14 Last Admin: 11/04/18 06:00 Dose: 350 units/hr, 7 mls/hr Documented by: Insulin Aspart (Novolog Flexpen) 0 units SC ACHS [facility] Stop: 11/30/18 16:29 Last Admin: 11/04/18 20:35 Dose: Not Given Documented by: Insulin Glargine (Lantus Solostar Pen) 0 units SQ HS [facility]; Protocol Stop: 11/30/18 20:59 Last Admin: 11/04/18 20:34 Dose: 10 units Documented by: Levothyroxine Sodium (Synthroid) [facility] Stop: 12/01/18 06:29 Last Admin: 11/04/18 04:58 Dose: 25 mcg Documented by: Levothyroxine Sodium (Synthroid) 200 [facility] Stop: 12/01/18 06:29 Last Admin: 11/04/18 04:58 Dose: 200 mcg Documented by: Metoprolol Succinate (Toprol Xl) 50 mg PO QAM [facility] Stop: 12/01/18 08:59 Last Admin: 11/04/18 10:11 Dose: Not Given Documented by: Midodrine (Proamatine) 10 mg PO MoWeFr@0900 [facility] Stop: 12/02/18 08:59 Last Admin: 11/04/18 10:08 Dose: 10 mg Documented by: Miscellaneous (Fentanyl Patch Check Placement) 1 ea N/A QS [facility] Stop: 11/30/18 15:59 Last Admin: 11/04/18 16:14 Dose: 1 ea Documented by: Miscellaneous (Carbohydrates For Hypoglycemia) 15 - 30 gm PO UD PRN PRN Reason: Hypoglycemia Treatment Stop: 11/30/18 15:18 Last Admin: 11/04/18 07:50 Dose: 15 gm Documented by: Miscellaneous (Fentanyl Patch Remove & Waste) 1 ea N/A Q3D@1559 [facility] Stop: 12/03/18 15:58 Last Admin: 11/03/18 15:39 Dose: 1 ea Documented by: Miscellaneous Information (Consult Glycemic Management Pharmacy) 1 ea N/A UD PRN; Protocol PRN Reason: Consult Stop: 11/30/18 15:44 Montelukast Sodium (Singulair) 10 mg PO [facility]AWW [facility] Stop: 12/01/18 08:59 Last Admin: 11/04/18 10:11 Dose: 10 mg Documented by: Ondansetron HCl (Zofran Tab) 4 mg PO Q8 PRN PRN Reason: Nausea And Vomiting Stop: 11/30/18 11:07 Oxycodone HCl (Roxicodone Immediate Rel) 5 mg PO Q12H PRN PRN Reason: Pain Stop: 11/14/18 11:07 Last Admin: 11/04/18 16:21 Dose: 5 mg Documented by: Oxycodone HCl (Oxycontin) 10 mg PO Q12 [facility] Stop: 11/14/18 20:59 Last Admin: 11/04/18 20:29 Dose: 10 mg Documented by: Pantoprazole Sodium (Protonix) 40 mg PO [facility] Stop: 12/01/18 08:59 Last Admin: 11/04/18 10:10 Dose: 40 mg Documented by: Pyridoxine HCl (Vitamin B-6) 100 mg PO [facility] Stop: 12/01/18 08:59 Last Admin: 11/04/18 10:08 Dose: 100 mg Documented by: Ranitidine HCl (Zantac) 75 mg PO DAILY [facility]; Protocol Stop: 12/01/18 08:59 Last Admin: 11/04/18 10:10 Dose: 75 mg Documented by: Vitamin B Complex/Folic Acid (Nephrocaps) 1 cap PO [facility] Stop: 12/01/18 08:59 Last Admin: 11/04/18 10:10 Dose: 1 cap Documented by: Warfarin Sodium (Coumadin) 2 mg PO DAILY@1600 [facility] Stop: 11/30/18 15:59 Last Admin: 11/04/18 16:11 Dose: 2 mg Documented by: PG Care Time/CCT Total # of Minutes Spent Total Time Spent with Patient: Total time spent is greater than 50% in coordination of care (as documented) at patient's floor/unit and/or counseling patient: (1) Diabetes mellitus Chronic kidney disease stage: stage 4 (severe) Diabetes mellitus complication detail: with chronic kidney disease Diabetes mellitus complication status: with kidney complications Diabetes mellitus watcher [employer] insulin use: with watcher [employer] use Diabetes mellitus type: type 2 Qualified Code(s): E11.22 - Type 2 diabetes mellitus with diabetic chronic kidney disease; N18.4 - Chronic kidney disease, stage 4 (severe); Z79.4 - shelter (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 of insulin (2) Anemia Anemia type: unspecified type Qualified Code(s): D64.9 - Anemia, unspecified (3) Atrial fibrillation Atrial fibrillation type: chronic Qualified Code(s): I48.2 - Chronic atrial fibrillation (4) Hypothyroidism Hypothyroidism type: acquired Qualified Code(s): E03.9 - Hypothyroidism, unspecified (5) Cirrhosis Hepatic cirrhosis type: other cirrhosis Qualified Code(s): K74.69 - Other cirrhosis of liver (6) COPD (chronic obstructive pulmonary disease) COPD type: unspecified COPD Qualified Code(s): J44.9 - Chronic obstructive pulmonary disease, unspecified
[2018-11-05] MEDS: LEVOTHYROXINE SODIUM 200 MCG TABLET PO SCH (05:50)
[2018-11-05] MEDS: LEVOTHYROXINE SODIUM 25 MCG TABLET PO SCH (05:50)
[2018-11-05] MEDS: HEPARIN SODIUM/DEXTROSE 25,000 UNITS/500 ML BAG IV SCH (05:56)
[2018-11-05 07:29] LABS: Hematocrit (blood only) 26.2 % (37-47); Hemoglobin 7.7 g/dL (12.0-16.0); Mean Corpuscular Hemoglobin 29.5 pg (25-34); Mean Corpuscular Hgb Conc 29.4 g/dL (32-36); Mean Corpuscular Volume 100.4 fL (80-100); Mean Platelet Volume 9.7 fL (7.4-10.4); Nucleated RBC # (auto) 0.08 K/uL (0-0); Platelet Count 142 K/uL (130-400); RDW Coefficient of Variation 21.6 % (11.5-14.5); RDW Standard Deviation 77.9 fL (36.4-46.3); Red Blood Count 2.61 M/uL (4.2-5.4); White Blood Count 7.96 K/uL (4.8-10.8)
[2018-11-05 07:45] LABS: INR 1.9 (0.9-1.1); Partial Thromboplastin Ratio 1.9; Prothrombin Time 18.5 Seconds (9.0-12.0)
[2018-11-05 08:02] LABS: Albumin Level 2.3 gm/dl (3.4-5.0); BUN Creatinine Ratio 7.2 (10-20); Creatinine Clr Calc Pharmacy 10.8 ml/min; Est GFR (African American) 10.5; Potassium 4.4 mmol/L (3.5-5.1)
[2018-11-05 08:03] LABS: Phosphorus 5.3 mg/dl (2.5-4.9)
[2018-11-05 08:19] LABS: Partial Thromboplastin Time 51.3 Seconds (21.0-31.0)
[2018-11-05] MEDS: ACETAMINOPHEN 325 MG TAB PO SCH (09:26)
[2018-11-05] MEDS: PYRIDOXINE HCL 50 MG TAB PO SCH (09:26)
[2018-11-05] MEDS: PANTOprazole 40 MG TAB PO SCH (09:26)
[2018-11-05] MEDS: MONTELUKAST SODIUM 10 MG TABLET PO SCH (09:27)
[2018-11-05] MEDS: CHECK FENTANYL PATCH PLACEMENT SCH ×2 (09:27→16:40)
[2018-11-05] MEDS: NEPHROCAPS PO SCH (09:27)
[2018-11-05] MEDS: OXYCODONE HCL 10 MG TABCR (OXYCONTIN) PO SCH ×2 (09:27→21:07)
[2018-11-05] MEDS: METOPROLOL SUCC 50MG EXT REL TAB PO SCH (09:28)
[2018-11-05] MEDS: INSULIN ASPART 100 UNITS/ML 3 ML PEN SC SCH ×4 (09:30→21:06)
--- NOTE | 2018-11-05 11:30 | Palliative Care Progress Note ---
Date of Service November 05, 2018 Assessment & Plan (1) Goals of care, counseling/discussion: -Patient is more awake today than yesterday, but continues to have extreme weakness, ongoing c/o generalized pain, drowsiness/lethargy at times. -Patient is fixated on trying to get OOB to bedside commode, but nursing staff is concerned about her extreme weakness. She is currently a max assist, and even at that she is having difficulty getting up. -Patient has ongoing c/o generalized pain. She is receiving her usual oxycodone and now has PRN IV Dilaudid ordered. Her pain is improved. -Had a long discussion today about goals of care and quality of life. Patient states she does not like coming back and forth to hospital, but of course feels that it is necessary because she is isn't ready to . We discussed that her chronic issues are continuing to get worse and her functional status continues to deteriorate as well. -Patient states that if she continues to be this weak and debilitated in the next week or two, she will consider transitioning to comfort measures/hospice care. She states she knows her son will be supportive of whatever decision she makes. -Palliative will continue to follow as needed. (2) End stage renal disease: (3) SOB (shortness of breath): (4) Valvular heart disease: Subjective Patient is more wake today, but still extremely weak and drowsy at times. Review of Systems Review of Systems: C/O weakness and generalized pain. Physical Exam Constitutional: + ill appearing (chronically); no acute distress ENMT: Ears: no hearing impairment Respiratory: normal respiratory effort; no labored breathing Auscultation: + diminished lung sounds Cardiovascular: Rate/Rhythm: regular rate and regular rhythm Extremities: + edema (+4 pitting edema to BUE, +2 pitting to BLE) Gastrointestinal (Abdomen): Inspection/Auscultation: abdomen normal to inspection and normal bowel sounds Percussion/Palpation: abdomen soft Neurologic: + confused (lethargic) Psychiatric: Orientation: alert and oriented x 3 Results & Data Vital Signs (Past 12 Hours) Vital Signs Temp Pulse Resp BP BP Pulse Ox 11/05/18 07:25 36.8 C 71 21 101/54 L 97 11/05/18 04:00 36.8 C 62 18 98/42 L 99 11/05/18 00:11 116/70 Time Spent Midlevel 40 minutes with >50% of the time spent at bedside with patient discussing condition, GOC, and EOL issues.
--- NOTE | 2018-11-05 11:57 | Nephrology Progress Note ---
Date of Service November 05, 2018 Assessment & Plan (1) End stage renal disease: End-stage renal disease secondary to cardiorenal syndrome has been on dialysis Friday, Friday, Friday via right IJ tunneled dialysis catheter. Has right brachiocephalic AV fistula maturing. Admitted to the hospital with shortness of breath and volume overload. Received [id number] dialysis 3 days with some improvement in volume status as she has been having difficulty with UF with significant drop in blood pressure despite being on midodrine.. Had repeated discussion with patient family with palliative care involved about hospice care as patient overall not doing well and has been having difficulty tolerating dialysis and UF as well as recurrent hospital admission for volume overload. Patient still not decided on hospice andwants to continue with dialysis. --will continue to use TDC for treatment due to discomfort in left arm related to clavicle fracture and difficulty positioning needles in AVF -- Midodrine for intradialytic hypotension -- Medications are appropriately dosed for IHD --dialysis tomorrow as her regular schedule while palliative care continue to have discussion with patient and family regarding goals of care Alicia Rojas was seen and examined in her room this morning. Overall she is feeling better although continues to have some pain. Denies shortness of breath or chest pain. Had dialysis yesterday, tolerated dialysis with 1.5 L UF. Review of Systems Review of Systems: All systems reviewed & are unremarkable except as noted in HPI & below Physical Exam Constitutional: + ill appearing and + frail appearing Respiratory: Auscultation: + diminished lung sounds and + crackles Cardiovascular: Heart Sounds: normal S1 and normal S2 Extremities: + edema and + AV fistula (with thrill and bruit) Neurologic: moves all extremities and awake Psychiatric: Orientation: alert and oriented x 3 Affect: + depressed affect Mood: + dysphoric mood Results & Data Vital Signs (Past 12 Hours) Vital Signs Temp Pulse Resp BP BP Pulse Ox 11/05/18 11:27 36.8 C 73 18 99/49 L 91 11/05/18 07:25 36.8 C 71 21 101/54 L 97 11/05/18 04:00 36.8 C 62 18 98/42 L 99 11/05/18 00:11 116/70 PG Care Time/CCT Total # of Minutes Spent Total Time Spent with Patient: Total time spent is greater than 50% in coordination of care (as documented) at patient's floor/unit and/or counseling patient:
--- NOTE | 2018-11-05 14:30 | Hospitalist Progress Note ---
Date of Service November 05, 2018 Assessment & Plan (1) Shortness of breath: Long-standing complaint for the patient; however, it does appear to be worse from baseline as she now is on 4L NC (up from 2L on discharge). CXR from 11/01 however shows improvement in her pulmonary edema. Likely due to continued volume overload from her ESRD & COPD vs. from her anemia. patient reports that her dyspnea is slightly better even prior to going to HD likely multifactorial with pulmonary edema, chronic heart failure, anemia, deconditioning breathing better after additional HD session on 11/03 (2) Anemia: Baseline hgb is ~8-9. Hemoglobin on admission was 7.4. Macrocytic. 7.7 today - Likely multifactorial from CKD, chronic disease, mild destruction from her valve. - Ferritin 368, B12 is > 2000 so she has no deficiencies -continue EPO per nephrology (3) End stage renal disease: Gets HD -. d/w Dr. Mercado, she had HD on Monday 10/30 with UF of 2.5 liters, tolerated normally scheduled HD on 11/02 and extra HD session on 11/03 for volume removal slept through most of HD on 11/04 plan for HD on 11/06 long talk with patient on 11/05 about continuing HD vs comfort measures discussed that HD has not improved her quality of life, basically keeping her alive and she is in a great deal of pain she says she is not ready to give up yet - Continue midodrine -> This was started last admission (and beta-jose roberto was lowered) due to hypotension during HD sessions. - Continue Nephrocaps and vitamins (4) History of mitral valve replacement with mechanical valve: She was admitted with an INR of 5.5 last admission. Given vitamin K. Discharged with INR of 1.9 and told to restart warfarin. - INR 1.9 on 11/05 (5) Diabetes mellitus: Last A1c was 5.8% in 03/2018. - Long-acting and sliding scale insulin - Glycemic pharmacist monitor closely for hypoglycemia since not eating well (6) Atrial fibrillation: EKG on admission showed paced rhythm. - Continue digoxin, beta-jose roberto - Warfarin as above (7) COPD (chronic obstructive pulmonary disease): Per notes, though home med list has no inhalers. - Continue montelukast - DuoNebs PRN (8) Cirrhosis: Thought to be due to hepatic congestion from her chronic volume overload. - Monitor mental status (9) Clavicle fracture: Fractured her clavicle in a fall in September. Had planned to have surgery with Dr. Ramirez of [facility]; however, her pre-op assessment by cardiology appears to have been poor enough that surgery was cancelled. not a surgical candidate use Fentanyl and Oxycodone for pain control increased Fentanyl to 25mcg and added Dilaudid 0.5mg IV for breakthrough pain better controlled on 11/04, able to rest most of the day (10) Palliative care encounter: palliative continues to follow patient they also had a long talk with patient on 11/05, she does not want hospice (11) Hypothyroidism: TSH was 20.3 on 10/21; however, it was coming down after increase in levothyroxine. - Continue home Synthroid 225 mcg PO daily - Recheck TSH in ~4 weeks. (12) DVT prophylaxis: Heparin gtt for mechanical valve (13) Acute on chronic diastolic (congestive) heart failure: volume overload due to ESRD improved with ultrafiltration, no acute component on 11/04 (14) Chronic respiratory failure with hypoxia: stable on 2-4L chronically her dyspnea and hypoxia is multifactorial with heart failure, deconditioning, pulmonary HTN Subjective patient alert and talkative today she ate some breakfast, needed help to eat [place] with palliative had long talk with patient about transitioning to hospice discussed that she is not getting better, she is getting worse, coming to hospital more often hemodialysis has not improved quality of life at all, she is in pain, no mobility, just gets shuttled to HD and back to SNF patient does not want hospice at this time, continue on HD, wants to get stronger I had a long talk with her as well, she said the same thing to me, not ready to , does not want hospice she was fixated on getting out of bed to the bedside commode cause she could not move her bowels on bedpan she said that she wanted to give it another try at getting stronger asked her what her goals are at this time, she wants to get stronger, go home, get off pain medications I discussed with her that this was not realistic she said that if she does not get stronger in next 1-2 weeks then she will go on hospice will revisit tomorrow Review of Systems Review of Systems: All systems reviewed & are unremarkable except as noted in HPI & below Constitutional: + fatigue and + weakness; no fever Respiratory: + dyspnea on exertion; no cough and no dyspnea Cardiovascular: + edema; no chest pain Gastrointestinal: no abdominal pain, no nausea, no vomiting, no constipation and no diarrhea/loose stools Musculoskeletal: + joint pain (right shoulder and clavicle in constant pain) Physical Exam Constitutional: well developed, + acute distress (mild due to pain) and + thin Eyes: PERRL, conjunctivae normal, anicteric sclerae ENMT: external ear and nose normal, oropharynx normal Neck: trachea midline, no thyromegaly Respiratory: normal respiratory effort; no respiratory distress Auscultation: + diminished lung sounds (bases) Cardiovascular: Rate/Rhythm: regular rate and + irregularly irregular Heart Sounds: normal S1 and normal S2; no murmur Extremities: normal capillary refill and + edema Gastrointestinal (Abdomen): normal bowel sounds, soft, nontender, no hepatosplenomegaly Musculoskeletal: Head/Neck/Chest: normocephalic and head atraumatic Extremities: + limited ROM of extremities (right shoulder) and + muscle atrophy; no cyanosis, no clubbing and no petechiae Skin: + turgor decreased, + wound and + skin atrophy Neurologic: patellar DTR's 2+ bilat, sensation intact and PERRL, EOMI, accommodation nl, no face palsy, no dysarthria Psychiatric: Orientation: alert and oriented x 3 Affect: + depressed affect Mood: + depressed mood Lymphatic: no cervical or axillary lymphadenopathy Results & Data Vital Signs (Past 12 Hours) Vital Signs Temp Pulse Resp BP BP Pulse Ox 11/05/18 11:27 36.8 C 73 18 99/49 L 91 11/05/18 07:25 36.8 C 71 21 101/54 L 97 11/05/18 04:00 36.8 C 62 18 98/42 L 99 Laboratory Results Laboratory Results - last 24 hr 11/04/18 11/04/18 11/05/18 16:33 20:13 03:58 WBC RBC Hgb Hct MCV MCH MCHC RDW Std Deviation RDW Coeff of Marco Plt Count MPV Absolute Nucleated RBC Nucleated RBC % (auto) PT INR APTT PTT Ratio Sodium Potassium Chloride Carbon Dioxide Anion Gap BUN Creatinine Est Cr Clr Drug Dosing Est GFR ( Amer) Est GFR (Non-Af Amer) BUN/Creatinine Ratio Glucose POC Glucose 103 H 117 H 80 Calcium Phosphorus Albumin 11/05/18 11/05/18 11/05/18 07:01 07:01 07:01 WBC 7.96 RBC 2.61 L Hgb 7.7 L Hct 26.2 L MCV 100.4 H MCH 29.5 MCHC 29.4 L RDW Std Deviation 77.9 H RDW Coeff of Marco 21.6 H Plt Count 142 MPV 9.7 Absolute Nucleated RBC 0.08 H Nucleated RBC % (auto) 1.0 PT 18.5 H INR 1.9 H APTT 51.3 H* PTT Ratio 1.9 Sodium 131 L Potassium 4.4 Chloride 95 L Carbon Dioxide 25 Anion Gap 11.0 BUN 32 H Creatinine 4.43 H Est Cr Clr Drug Dosing 10.8 Est GFR ( Amer) 10.5 Est GFR (Non-Af Amer) 9.0 BUN/Creatinine Ratio 7.2 L Glucose 111 H POC Glucose Calcium 8.0 L Phosphorus 5.3 H Albumin 2.3 L 11/05/18 11/05/18 07:42 11:38 WBC RBC Hgb Hct MCV MCH MCHC RDW Std Deviation RDW Coeff of Marco Plt Count MPV Absolute Nucleated RBC Nucleated RBC % (auto) PT INR APTT PTT Ratio Sodium Potassium Chloride Carbon Dioxide Anion Gap BUN Creatinine Est Cr Clr Drug Dosing Est GFR ( Amer) Est GFR (Non-Af Amer) BUN/Creatinine Ratio Glucose POC Glucose 104 H 157 H Calcium Phosphorus Albumin Medications Administered Current Inpatient Medications Acetaminophen (Tylenol) 650 mg PO QAM [facility] Stop: 12/01/18 08:59 Last Admin: 11/05/18 09:26 Dose: 650 mg Documented by: Acetaminophen (Tylenol) 650 mg PO Q6H PRN PRN Reason: Fever Or Pain Stop: 11/30/18 11:07 Last Admin: 11/02/18 20:07 Dose: 650 mg Documented by: Albuterol (Duoneb) 3 ml INH QID PRN PRN Reason: Shortness Of Breath Stop: 11/30/18 11:07 Calcitriol (Rocaltrol) 0.25 mcg PO MoWeFr@0900 [facility] Stop: 12/02/18 08:59 Last Admin: 11/04/18 10:10 Dose: 0.25 mcg Documented by: Cyanocobalamin (Vitamin B-12) 1,000 mcg PO HS [facility] Stop: 11/30/18 20:59 Last Admin: 11/04/18 20:36 Dose: 1,000 mcg Documented by: Dextrose (Dextrose 50%) 25 - 50 ml IV UD PRN; Protocol PRN Reason: Hypoglycemia Protocol Stop: 11/30/18 15:18 Diazepam (Valium) 5 mg PO [facility] Stop: 11/30/18 20:59 Last Admin: 11/04/18 20:29 Dose: 5 mg Documented by: Diclofenac Sodium (Voltaren 1% Top) 1 appln EXT TID PRN PRN Reason: Shoulder pain Stop: 11/30/18 20:59 Last Admin: 11/04/18 23:46 Dose: 1 appln Documented by: Digoxin (Lanoxin) 0.0625 mg PO MoWeFr@1600 [facility] Stop: 12/02/18 15:59 Last Admin: 11/04/18 16:42 Dose: 0.0625 mg Documented by: Diphenhydramine HCl (Benadryl Capsule) 25 mg PO Q6H PRN PRN Reason: Itching Stop: 12/04/18 18:19 Last Admin: 11/04/18 20:29 Dose: 25 mg Documented by: Ezetimibe (Zetia) 10 mg PO [facility] Stop: 11/30/18 20:59 Last Admin: 11/04/18 20:37 Dose: 10 mg Documented by: Fentanyl (Duragesic) 25 mcg TD Q3D@1300 [facility] Stop: 11/17/18 15:59 Last Admin: 11/03/18 15:39 Dose: 25 mcg Documented by: Glucagon (Glucagen) 1 mg SQ UD PRN; Protocol PRN Reason: Hypoglycemia Protocol Stop: 11/30/18 15:18 Glucose (Glucose 40%) 15 - 30 gm PO UD PRN; Protocol PRN Reason: Hypoglycemia Protocol Stop: 11/30/18 15:18 Last Admin: 11/04/18 08:51 Dose: 15 gm Documented by: Glucose (Dex4 Glucose) 4 - 8 tabs PO UD PRN; Protocol PRN Reason: Hypoglycemia Protocol Stop: 11/30/18 15:18 Hydromorphone HCl (Dilaudid) 0.5 mg IV HS PRN PRN Reason: Pain Stop: 11/17/18 16:46 Last Admin: 11/03/18 23:23 Dose: 0.5 mg Documented by: Heparin Sodium/Dextrose (Heparin Sodium/Dextrose) 25,000 units in 500 mls @ 7 mls/hr IV .Q24H [facility]; Protocol Stop: 11/30/18 08:14 Last Admin: 11/05/18 05:56 Dose: 350 units/hr, 7 mls/hr Documented by: Insulin Aspart (Novolog Flexpen) 0 units SC ACHS [facility] Stop: 11/30/18 16:29 Last Admin: 11/05/18 12:53 Dose: 9 units Documented by: Insulin Glargine (Lantus Solostar Pen) 0 units SQ HS [facility]; Protocol Stop: 11/30/18 20:59 Last Admin: 11/04/18 20:34 Dose: 10 units Documented by: [facility]othy[facility]ine [facility]) [facility] Stop: 12/01/18 06:29 Last Admin: 11/05/18 05:50 Dose: 25 mcg Documented by: Levothyroxine Sodium (Synthroid) [facility] Stop: 12/01/18 06:29 Last Admin: 11/05/18 05:50 Dose: 200 mcg Documented by: Metoprolol Succinate (Toprol Xl) 50 mg PO QAM [facility] Stop: 12/01/18 08:59 Last Admin: 11/05/18 09:28 Dose: 50 mg Documented by: Midodrine (Proamatine) 10 mg PO MoWeFr@0900 [facility] Stop: 12/02/18 08:59 Last Admin: 11/04/18 10:08 Dose: 10 mg Documented by: Miscellaneous (Fentanyl Patch Check Placement) 1 ea N/A QS [facility] Stop: 11/30/18 15:59 Last Admin: 11/05/18 09:27 Dose: 1 ea Documented by: Miscellaneous (Carbohydrates For Hypoglycemia) 15 - 30 gm PO UD PRN PRN Reason: Hypoglycemia Treatment Stop: 11/30/18 15:18 Last Admin: 11/04/18 07:50 Dose: 15 gm Documented by: Miscellaneous (Fentanyl Patch Remove & Waste) 1 ea N/A Q3D@1559 [facility] Stop: 12/03/18 15:58 Last Admin: 11/03/18 15:39 Dose: 1 ea Documented by: Miscellaneous Information (Consult Glycemic Management Pharmacy) 1 ea N/A UD PRN; Protocol PRN Reason: Consult Stop: 11/30/18 15:44 Montelukast Sodium (Singulair) 10 mg PO QAM [facility] Stop: 12/01/18 08:59 Last Admin: 11/05/18 09:27 Dose: 10 mg Documented by: Ondansetron HCl (Zofran Tab) 4 mg PO Q8 PRN PRN Reason: Nausea And Vomiting Stop: 11/30/18 11:07 Oxycodone HCl (Roxicodone Immediate Rel) 5 mg PO Q12H PRN PRN Reason: Pain Stop: 11/14/18 11:07 Last Admin: 11/04/18 16:21 Dose: 5 mg Documented by: Oxycodone HCl (Oxycontin) 10 mg PO Q12 [facility] Stop: 11/14/18 20:59 Last Admin: 11/05/18 09:27 Dose: 10 mg Documented by: Pantoprazole Sodium (Protonix) 40 mg PO QAM [facility] Stop: 12/01/18 08:59 Last Admin: 11/05/18 09:26 Dose: 40 mg Documented by: Pyridoxine HCl (Vitamin B-6) 100 mg PO QAM [facility] Stop: 12/01/18 08:59 Last Admin: 11/05/18 09:26 Dose: 100 mg Documented by: Ranitidine HCl (Zantac) 75 mg PO DAILY [facility]; Protocol Stop: 12/01/18 08:59 Last Admin: 11/05/18 09:28 Dose: 75 mg Documented by: Vitamin B Complex/Folic Acid (Ne[facility]rocaps) [facility] [place]: 12/01/18 08:59 Last Admin: 11/05/18 09:27 Dose: 1 cap Documented by: Warfarin Sodium (Coumadin) 2 mg PO DAILY@1600 [facility] Stop: 11/30/18 15:59 Last Admin: 11/04/18 16:11 Dose: 2 mg Documented by: PG Care Time/CCT Total # of Minutes Spent Total Time Spent: 35 Total Time Spent with Patient: Total time spent is greater than 50% in coordination of care (as documented) at patient's floor/unit and/or counseling patient: (1) Diabetes mellitus Chronic kidney disease stage: stage 4 (severe) Diabetes mellitus complication detail: with chronic kidney disease Diabetes mellitus complication status: with kidney complications 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 Diabetes mellitus type: type 2 Qualified Code(s): E11.22 - Type 2 diabetes mellitus with diabetic chronic kidney disease; N18.4 - Chronic kidney disease, stage 4 (severe); Z79.4 - intermediate project manager (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 of insulin (2) Anemia Anemia type: unspecified type Qualified Code(s): D64.9 - Anemia, unspecified (3) Atrial fibrillation Atrial fibrillation type: chronic Qualified Code(s): I48.2 - Chronic atrial fibrillation (4) Hypothyroidism Hypothyroidism type: acquired Qualified Code(s): E03.9 - Hypothyroidism, unspecified (5) Cirrhosis Hepatic cirrhosis type: other cirrhosis Qualified Code(s): K74.69 - Other cirrhosis of liver (6) COPD (chronic obstructive pulmonary disease) COPD type: unspecified COPD Qualified Code(s): J44.9 - Chronic obstructive pulmonary disease, unspecified
[2018-11-05] MEDS: WARFARIN SOD 2 MG TAB PO SCH (16:40)
[2018-11-05] MEDS: INSULIN GLARGINE SOLOSTAR 100 UNITS/ML 3 ML PEN SQ SCH (21:06)
[2018-11-05] MEDS: diazePAM 5 MG TABLET PO SCH (21:07)
[2018-11-05] MEDS: EZETIMIBE 10 MG TABLET PO SCH (21:08)
[2018-11-05] MEDS: CYANOCOBALAMIN 500 MCG TABLET (VITAMIN B-12) PO SCH (21:08)
[2018-11-05] MEDS: DICLOFENAC SOD 1% GEL 100 GM TUBE EXT PRN (21:09)
[2018-11-06] MEDS: LEVOTHYROXINE SODIUM 200 MCG TABLET PO SCH (06:39)
[2018-11-06] MEDS: LEVOTHYROXINE SODIUM 25 MCG TABLET PO SCH (06:39)
[2018-11-06] MEDS ORDERED: SODIUM CHLORIDE 0.9% 250 ML IV PRN (07:11)
[2018-11-06 07:31] LABS: INR 2.2 (0.9-1.1)
[2018-11-06 08:00] LABS: Albumin Level 2.3 gm/dl (3.4-5.0); BUN Creatinine Ratio 8.3 (10-20); Calcium 7.8 mg/dl (8.5-10.1); Creatinine Clr Calc Pharmacy 9.3 ml/min; Est GFR (African American) 8.5; Est GFR (Non-African American) 7.4; Potassium 4.8 mmol/L (3.5-5.1)
[2018-11-06] MEDS ORDERED: EPOETIN ALFA 4,000 UNIT/ML VIAL IV SCH (08:00)
--- NOTE | 2018-11-06 08:15 | Nephrology Progress Note ---
Date of Service November 06, 2018 Assessment & Plan (1) End stage renal disease: End-stage renal disease secondary to cardiorenal syndrome has been on dialysis Friday, Friday, Friday via right IJ tunneled dialysis catheter. Has right brachiocephalic AV fistula maturing. Admitted to the hospital with shortness of breath and volume overload. Received [id number] dialysis 3 days with some improvement in volume status as she has been having difficulty with UF with significant drop in blood pressure despite being on midodrine.. Had repeated discussion with patient family with palliative care involved about hospice care as patient overall not doing well and has been having difficulty tolerating dialysis and UF as well as recurrent hospital admission for volume overload. Patient does not want hospice at this time and wants to continue with dialysis. --will continue to use TDC for treatment due to discomfort in left arm related to clavicle fracture and difficulty positioning needles in AVF -- Midodrine for intradialytic hypotension -- Medications are appropriately dosed for IHD --dialysis today as her regular schedule while palliative care continue to have discussion with patient and family regarding goals of care --will give Epogen with dialysis Will follow Subjective Crystal was seen examined in her room this morning. She feels slightly better today. Her hemoglobin staying low around 7.7-8. Blood pressure stable. Review of Systems Review of Systems: All systems reviewed & are unremarkable except as noted in HPI & below Physical Exam Constitutional: + ill appearing and + frail appearing Respiratory: Auscultation: + diminished lung sounds and + crackles Cardiovascular: Heart Sounds: normal S1 and normal S2 Extremities: + edema and + AV fistula (with thrill and bruit) Neurologic: moves all extremities and awake Psychiatric: Orientation: alert and oriented x 3 Affect: + depressed affect Mood: + dysphoric mood Results & Data Vital Signs (Past 12 Hours) Vital Signs Temp Pulse Resp BP BP Pulse Ox 11/06/18 07:30 36.9 C 64 18 99/51 L 99 11/05/18 22:26 36.9 C 60 19 80/45 L 98 PG Care Time/CCT Total # of Minutes Spent Total Time Spent with Patient: Total time spent is greater than 50% in coordination of care (as documented) at patient's floor/unit and/or counseling patient:
[2018-11-06 08:25] LABS: Hematocrit (blood only) 26.4 % (37-47); Hemoglobin 7.7 g/dL (12.0-16.0); Mean Corpuscular Hemoglobin 29.3 pg (25-34); Mean Corpuscular Hgb Conc 29.2 g/dL (32-36); Mean Corpuscular Volume 100.4 fL (80-100); Platelet Count 145 K/uL (130-400); Red Blood Count 2.63 M/uL (4.2-5.4); White Blood Count 7.44 K/uL (4.8-10.8)
[2018-11-06] MEDS: OXYCODONE HCL 10 MG TABCR (OXYCONTIN) PO SCH ×2 (08:28→21:11)
[2018-11-06] MEDS: PANTOprazole 40 MG TAB PO SCH (08:29)
[2018-11-06] MEDS: HEPARIN SODIUM/DEXTROSE 25,000 UNITS/500 ML BAG IV SCH (08:29)
[2018-11-06] MEDS: CHECK FENTANYL PATCH PLACEMENT SCH ×3 (08:29→16:15)
[2018-11-06] MEDS: CALCITRIOL 0.25 MCG CAPSULE PO SCH (08:30)
[2018-11-06] MEDS: NEPHROCAPS PO SCH (08:30)
[2018-11-06] MEDS: MONTELUKAST SODIUM 10 MG TABLET PO SCH (08:31)
[2018-11-06] MEDS: METOPROLOL SUCC 50MG EXT REL TAB PO SCH (08:31)
[2018-11-06] MEDS: ACETAMINOPHEN 325 MG TAB PO SCH (08:32)
[2018-11-06] MEDS: PYRIDOXINE HCL 50 MG TAB PO SCH (08:33)
[2018-11-06] MEDS: MIDODRINE HCL 10 MG TAB PO SCH (08:34)
[2018-11-06] MEDS: INSULIN ASPART 100 UNITS/ML 3 ML PEN SC SCH ×4 (08:59→21:07)
[2018-11-06 09:11] LABS: Phosphorus 6.4 mg/dl (2.5-4.9)
[2018-11-06] MEDS: fentaNYL 25 MCG/HR TDSY TD SCH (12:43)
--- NOTE | 2018-11-06 14:09 | Pharmacy Report ---
Pharmacy Glycemic Short Note 2 - Date of Service November 06, 2018 - Glycemic Short BSG Results (Last 24 hours): 11/05/18 11/05/18 11/06/18 16:37 20:21 06:49 Glucose 88 POC Glucose 128 H 139 H 11/06/18 11/06/18 07:35 11:36 Glucose POC Glucose 84 89 ASSESSMENT: * BSGs have been within goal in the past 24 hrs with lowest value being at 84 which was the Fasting BSG this AM. * Patient received total 21 units of insulin yesterday; 8 units of which was Lantus. * Will further reduce Lantus dose on a scale at HS today so that BSGs do not go lower than 80. * Patient continues to be on Heparin drip (mixed in dextrose) at 7 ml/hr. INR therapeutic today at 2.2. If INR therapeutic again tomorrow, Heparin will be discontinued. It could possibly be d/c'd tonight also. Therefore dose reduction in Lantus would be necessary tonight. * Continue Novolog with same parameters. PLAN FOR INPATIENT GLYCEMIC CONTROL: * Basal insulin * Lantus scale @HS * give 5 units for BSGs <160 * give 10 units (home Rx) for BSGs >/=160 * Bolus insulin * NovoLog per scale ACHS or Q6hrs while NPO * Goal Range: Low 100 mg/dL - High 140 mg/dL * Correction Factor: 30 mg/dL/unit * Nutritional / Prandial insulin per carb ratio of 1 unit per 9 grams CHO consumed
[2018-11-06] MEDS: WARFARIN SOD 2 MG TAB PO SCH (16:14)
[2018-11-06] MEDS: DIGOXIN 0.125 MG TAB PO SCH (16:15)
--- NOTE | 2018-11-06 19:59 | Hospitalist Progress Note ---
Date of Service November 06, 2018 Assessment & Plan (1) Palliative care encounter: past three days have primarily involved palliative discussions patient very resistant to the idea, she will not admit that things are going poorly her goals of getting stronger, getting off narcotics, going back home are completely unrealistic she has been at SNF since fall of last year palliative care has been involved all week, they too have not had any successful converstations her family is on board with her going on hospice but it should be her decision since she still makes her decisions will continue the talk one more time on 11/07, will discuss with her son Fidencio, perhaps he can talk with her again (2) Shortness of breath: Long-standing complaint for the patient; however, it does appear to be worse from baseline as she now is on 4L NC (up from 2L on discharge). CXR from 11/01 however shows improvement in her pulmonary edema. Likely due to continued volume overload from her ESRD & COPD vs. from her anemia. patient reports that her dyspnea is slightly better even prior to going to HD likely multifactorial with pulmonary edema, chronic heart failure, anemia, deconditioning breathing better after additional HD session on 11/03 really have done nothing to address the dyspnea except hemodialysis (3) Anemia: Baseline hgb is ~8-9. Hemoglobin on admission was 7.4. Macrocytic. 7.7 again today, really no change all week - Likely multifactorial from CKD, chronic disease, mild destruction from her valve. - Ferritin 368, B12 is > 2000 so she has no deficiencies -continue EPO per nephrology (4) End stage renal disease: Gets HD -W-. d/w Dr. Mercado, she had HD on Monday 10/30 with UF of 2.5 liters, tolerated normally scheduled HD on 11/02 and extra HD session on 11/03 for volume removal slept through most of HD on 11/04 tolerated HD on 11/06 long talk with patient again on 11/06 about continuing HD vs comfort measures discussed that HD has not improved her quality of life, basically keeping her alive and she is in a great deal of pain she says she is not ready to give up yet - Continue midodrine -> This was started last admission (and beta-jose roberto was lowered) due to hypotension during HD sessions. - Continue Nephrocaps and vitamins (5) History of mitral valve replacement with mechanical valve: She was admitted with an INR of 5.5 last admission. Given vitamin K. Discharged with INR of 1.9 and told to restart warfarin. - INR 1.9 on 11/05 (6) Diabetes mellitus: Last A1c was 5.8% in 03/2018. - Long-acting and sliding scale insulin - Glycemic pharmacist monitor closely for hypoglycemia since not eating well (7) Atrial fibrillation: EKG on admission showed paced rhythm. - Continue digoxin, beta-jose roberto - Warfarin as above (8) COPD (chronic obstructive pulmonary disease): Per notes, though home med list has no inhalers. - Continue montelukast - DuoNebs PRN (9) Cirrhosis: Thought to be due to hepatic congestion from her chronic volume overload. - Monitor mental status (10) Clavicle fracture: Fractured her clavicle in a fall in September. Had planned to have surgery with Dr. Ramirez of [facility] orth[facility]; however, her pre-op assessment by cardiology appears to have been poor enough that surgery was cancelled. not a surgical candidate use Fentanyl and Oxycodone for pain control increased Fentanyl to 25mcg and added Dilaudid 0.5mg IV for breakthrough pain better controlled on 11/04 through 11/06, able to rest most of the day (11) Hypothyroidism: TSH was 20.3 on 10/21; however, it was coming down after increase in levothyroxine. - Continue home Synthroid 225 mcg PO daily - Recheck TSH in ~4 weeks. (12) DVT prophylaxis: Heparin gtt for mechanical valve (13) Acute on chronic diastolic (congestive) heart failure: volume overload due to ESRD improved with ultrafiltration, no acute component on 11/04 through 11/06 (14) Chronic respiratory failure with hypoxia: stable on 2-4L chronically her dyspnea and hypoxia is multifactorial with heart failure, deconditioning, pulmonary HTN Subjective patient had HD today, tolerated well sleeping in the afternoon immediately after lunch discussed with RN, she only ate 10% of her breakfast, ate no lunch she was awake in the afternoon, had another long discussion with her about goals of care, hospice discussed that she could go back to [facility] on 11/07 she said that she felt she was not ready to go back, she needed to move bowels, get stronger discussed that she has been here for a week, only change that has been made is increase Fentanyl patch she has been sleeping most of the day every day her goals of getting stronger, getting off narcotics, getting back home are NOT realistic, very jhonny with her she did not want to talk about it, she just focused on trying to move her bowels told her that we would discuss again tomorrow, I would contact her son Fidencio Review of Systems Review of Systems: All systems reviewed & are unremarkable except as noted in HPI & below Constitutional: + fatigue and + weakness; no fever Respiratory: + dyspnea on exertion; no cough and no dyspnea Cardiovascular: + edema; no chest pain Gastrointestinal: + constipation; no abdominal pain Musculoskeletal: + joint pain (right shoulder, clavicle) Physical Exam Constitutional: well developed, + ill appearing, + thin and + frail appearing Eyes: PERRL, conjunctivae normal, anicteric sclerae ENMT: external ear and nose normal, oropharynx normal Neck: trachea midline, no thyromegaly Respiratory: normal respiratory effort; no respiratory distress Auscultation: + diminished lung sounds (bases) Cardiovascular: Rate/Rhythm: regular rate and + irregularly irregular Heart Sounds: normal S1 and normal S2; no murmur Extremities: normal capillary refill and + edema Gastrointestinal (Abdomen): normal bowel sounds, soft, nontender, no hepatosplenomegaly Musculoskeletal: Head/Neck/Chest: normocephalic and head atraumatic Extremities: + limited ROM of extremities (right shoulder) and + muscle atrophy; no cyanosis, no clubbing and no petechiae Skin: + turgor decreased, + wound and + skin atrophy Neurologic: patellar DTR's 2+ bilat, sensation intact and PERRL, EOMI, accommodation nl, no face palsy, no dysarthria Psychiatric: Orientation: alert and oriented x 3 Affect: + depressed affect Mood: + depressed mood Lymphatic: no cervical or axillary lymphadenopathy Results & Data Vital Signs (Past 12 Hours) Vital Signs Temp Pulse Pulse Resp BP BP BP 11/06/18 18:59 36.6 C 68 16 99/47 L 11/06/18 16:15 64 11/06/18 15:54 36.6 C 66 18 102/44 L 11/06/18 12:10 36.6 C 62 104/41 L 11/06/18 11:20 60 90/37 L 11/06/18 11:00 61 82/35 L 11/06/18 10:40 61 88/40 L 11/06/18 10:20 63 83/39 L 11/06/18 10:00 62 96/43 L 11/06/18 09:40 68 84/40 L 11/06/18 09:20 61 101/42 L 11/06/18 09:00 65 103/51 L 11/06/18 08:42 63 110/52 L 11/06/18 08:33 36.8 C 64 Pulse Ox 11/06/18 18:59 95 11/06/18 16:15 11/06/18 15:54 98 11/06/18 12:10 11/06/18 11:20 11/06/18 11:00 11/06/18 10:40 11/06/18 10:20 11/06/18 10:00 11/06/18 09:40 11/06/18 09:20 11/06/18 09:00 11/06/18 08:42 11/06/18 08:33 Laboratory Results Laboratory Results - last 24 hr 11/05/18 11/05/18 11/06/18 16:37 20:21 06:49 WBC 7.44 RBC 2.63 L Hgb 7.7 L Hct 26.4 L MCV 100.4 H MCH 29.3 MCHC 29.2 L Plt Count 145 PT INR Sodium Potassium Chloride Carbon Dioxide Anion Gap BUN Creatinine Est Cr Clr Drug Dosing Est GFR ( Amer) Est GFR (Non-Af Amer) BUN/Creatinine Ratio Glucose POC Glucose 128 H 139 H Calcium Phosphorus Albumin 11/06/18 11/06/18 11/06/18 06:49 06:49 07:35 WBC RBC Hgb Hct MCV MCH MCHC Plt Count PT 21.0 H INR 2.2 H Sodium 128 L Potassium 4.8 Chloride 94 L Carbon Dioxide 25 Anion Gap 9.0 BUN 43 H Creatinine 5.25 H* D Est Cr Clr Drug Dosing 9.3 Est GFR ( Amer) 8.5 Est GFR (Non-Af Amer) 7.4 BUN/Creatinine Ratio 8.3 L Glucose 88 POC Glucose 84 Calcium 7.8 L Phosphorus 6.4 H D Albumin 2.3 L 11/06/18 11/06/18 11:36 16:12 WBC RBC Hgb Hct MCV MCH MCHC Plt Count PT INR Sodium Potassium Chloride Carbon Dioxide Anion Gap BUN Creatinine Est Cr Clr Drug Dosing Est GFR ( Amer) Est GFR (Non-Af Amer) BUN/Creatinine Ratio Glucose POC Glucose 89 98 Calcium Phosphorus Albumin Medications Administered Current Inpatient Medications Acetaminophen (Tylenol) 650 mg PO QAM [facility] Stop: 12/01/18 08:59 Last Admin: 11/06/18 08:32 Dose: 650 mg Documented by: Acetaminophen (Tylenol) 650 mg PO Q6H PRN PRN Reason: Fever Or Pain Stop: 11/30/18 11:07 Last Admin: 11/02/18 20:07 Dose: 650 mg Documented by: Albuterol (Duoneb) 3 ml INH QID PRN PRN Reason: Shortness Of Breath Stop: 11/30/18 11:07 Calcitriol (Rocaltrol) 0.25 mcg PO MoWeFr@0900 [facility] Stop: 12/02/18 08:59 Last Admin: 11/06/18 08:30 Dose: 0.25 mcg Documented by: Cyanocobalamin (Vitamin B-12) 1,000 mcg PO [facility] Stop: 11/30/18 20:59 Last Admin: 11/05/18 21:08 Dose: 1,000 mcg Documented by: Dextrose (Dextrose 50%) 25 - 50 ml IV UD PRN; Protocol PRN Reason: Hypoglycemia Protocol Stop: 11/30/18 15:18 Diazepam (Valium) 5 mg PO [facility] Stop: 11/30/18 20:59 Last Admin: 11/05/18 21:07 Dose: 5 mg Documented by: Diclofenac Sodium (Voltaren 1% Top) 1 appln EXT TID PRN PRN Reason: Shoulder pain Stop: 11/30/18 20:59 Last Admin: 11/05/18 21:09 Dose: 1 appln Documented by: Digoxin (Lanoxin) 0.0625 mg PO MoWeFr@1600 [facility] Stop: 12/02/18 15:59 Last Admin: 11/06/18 16:15 Dose: 0.0625 mg Documented by: Diphenhydramine HCl (Benadryl Capsule) 25 mg PO Q6H PRN PRN Reason: Itching Stop: 12/04/18 18:19 Last Admin: 11/05/18 21:16 Dose: 25 mg Documented by: Ezetimibe (Zetia) 10 mg PO [facility] Stop: 11/30/18 20:59 Last Admin: 11/05/18 21:08 Dose: 10 mg Documented by: Fentanyl (Duragesic) 25 mcg TD Q3D@1300 [facility] Stop: 11/17/18 15:59 Last Admin: 11/06/18 12:43 Dose: 25 mcg Documented by: Glucagon (Glucagen) 1 mg SQ UD PRN; Protocol PRN Reason: Hypoglycemia Protocol Stop: 11/30/18 15:18 Glucose (Glucose 40%) 15 - 30 gm PO UD PRN; Protocol PRN Reason: Hypoglycemia Protocol Stop: 11/30/18 15:18 Last Admin: 11/04/18 08:51 Dose: 15 gm Documented by: Glucose (Dex4 Glucose) 4 - 8 tabs PO UD PRN; Protocol PRN Reason: Hypoglycemia Protocol Stop: 11/30/18 15:18 Hydromorphone HCl (Dilaudid) 0.5 mg IV HS PRN PRN Reason: Pain Stop: 11/17/18 16:46 Last Admin: 11/03/18 23:23 Dose: 0.5 mg Documented by: Insulin Aspart (Novolog Flexpen) 0 units SC [facility] Stop: 11/30/18 16:29 Last Admin: 11/06/18 18:19 Dose: Not Given Documented by: Insulin Glargine (Lantus Solostar Pen) 0 units SQ HS [facility]; Protocol Stop: 11/30/18 20:59 Last Admin: 11/05/18 21:06 Dose: 8 units Documented by: [facility]othy[facility]ine [facility]) [facility] Stop: 12/01/18 06:29 Last Admin: 11/06/18 06:39 Dose: 25 mcg Documented by: Levothyroxine Sodium (Synthroid) 200 mcg PO DAILYBB [facility] Stop: 12/01/18 06:29 Last Admin: 11/06/18 06:39 Dose: 200 mcg Documented by: Metoprolol Succinate (Toprol Xl) 50 mg PO QAM [facility] Stop: 12/01/18 08:59 Last Admin: 11/06/18 08:31 Dose: Not Given Documented by: Midodrine (Proamatine) 10 mg PO MoWeFr@0900 [facility] Stop: 12/02/18 08:59 Last Admin: 11/06/18 08:34 Dose: 10 mg Documented by: Miscellaneous (Fentanyl Patch Check Placement) 1 ea N/A QS [facility] Stop: 11/30/18 15:59 Last Admin: 11/06/18 16:15 Dose: 1 ea Documented by: Miscellaneous (Carbohydrates For Hypoglycemia) 15 - 30 gm PO UD PRN PRN Reason: Hypoglycemia Treatment Stop: 11/30/18 15:18 Last Admin: 11/04/18 07:50 Dose: 15 gm Documented by: Miscellaneous (Fentanyl Patch Remove & Waste) 1 ea N/A Q3D@1559 [facility] Stop: 12/03/18 15:58 Last Admin: 11/06/18 14:57 Dose: 1 ea Documented by: Miscellaneous Information (Consult Glycemic Management Pharmacy) 1 ea N/A UD PRN; Protocol PRN Reason: Consult Stop: 11/30/18 15:44 Montelukast Sodium (Singulair) 10 mg PO [facility] Stop: 12/01/18 08:59 Last Admin: 11/06/18 08:31 Dose: 10 mg Documented by: Ondansetron HCl (Zofran Tab) 4 mg PO Q8 PRN PRN Reason: Nausea And Vomiting Stop: 11/30/18 11:07 Oxycodone HCl (Roxicodone Immediate Rel) 5 mg PO Q12H PRN PRN Reason: Pain Stop: 11/14/18 11:07 Last Admin: 11/04/18 16:21 Dose: 5 mg Documented by: Oxycodone HCl (Oxycontin) 10 mg PO Q12 [facility] Stop: 11/14/18 20:59 Last Admin: 11/06/18 08:28 Dose: 10 mg Documented by: Pantoprazole Sodium (Protonix) [facility] Stop: 12/01/18 08:59 Last Admin: 11/06/18 08:29 Dose: 40 mg Documented by: Pyridoxine HCl (Vitamin B-6) [facility] Stop: 12/01/18 08:59 Last Admin: 11/06/18 08:33 Dose: 100 mg Documented by: Ranitidine HCl (Zantac) 75 mg PO DAILY [facility]; Protocol Stop: 12/01/18 08:59 Last Admin: 11/06/18 08:32 Dose: 75 mg Documented by: Vitamin B Complex/Folic Acid (Nephrocaps) 1 cap PO [facility] Stop: 12/01/18 08:59 Last Admin: 11/06/18 08:30 Dose: 1 cap Documented by: Warfarin Sodium (Coumadin) 2 mg PO DAILY@1600 [facility] Stop: 11/30/18 15:59 Last Admin: 11/06/18 16:14 Dose: 2 mg Documented by: PG Care Time/CCT Total # of Minutes Spent Total Time Spent with Patient: Total time spent is greater than 50% in coordination of care (as documented) at patient's floor/unit and/or counseling patient: (1) Diabetes mellitus Chronic kidney disease stage: stage 4 (severe) Diabetes mellitus complication detail: with chronic kidney disease Diabetes mellitus complication status: with kidney complications Diabetes mellitus alf insulin use: 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 use Diabetes mellitus type: type 2 Qualified Code(s): E11.22 - Type 2 diabetes mellitus with diabetic chronic kidney disease; N18.4 - Chronic kidney disease, stage 4 (severe); 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
[2018-11-06] MEDS: DICLOFENAC SOD 1% GEL 100 GM TUBE EXT PRN (20:05)
[2018-11-06] MEDS: diazePAM 5 MG TABLET PO SCH (21:11)
[2018-11-06] MEDS: INSULIN GLARGINE SOLOSTAR 100 UNITS/ML 3 ML PEN SQ SCH (21:11)
[2018-11-06] MEDS: CYANOCOBALAMIN 500 MCG TABLET (VITAMIN B-12) PO SCH (21:11)
[2018-11-06] MEDS: EZETIMIBE 10 MG TABLET PO SCH (21:12)
[2018-11-07] MEDS: CHECK FENTANYL PATCH PLACEMENT SCH ×8 (01:03→23:15)
[2018-11-07] MEDS: DICLOFENAC SOD 1% GEL 100 GM TUBE EXT PRN ×2 (01:04→13:46)
[2018-11-07] MEDS: HYDROmorphone INJ 0.5 MG/0.5 ML SYR IV PRN (03:11)
[2018-11-07] MEDS: OXYCODONE HCL IR 5 MG TAB (IMMEDIATE RELEASE) PO PRN (05:10)
[2018-11-07] MEDS: LEVOTHYROXINE SODIUM 25 MCG TABLET PO SCH (05:58)
[2018-11-07] MEDS: LEVOTHYROXINE SODIUM 200 MCG TABLET PO SCH (05:58)
[2018-11-07 06:35] LABS: INR 2.2 (0.9-1.1); Prothrombin Time 21.7 Seconds (9.0-12.0)
[2018-11-07] MEDS: INSULIN ASPART 100 UNITS/ML 3 ML PEN SC SCH ×3 (08:39→18:20)
[2018-11-07] MEDS: NEPHROCAPS PO SCH (08:39)
[2018-11-07] MEDS: PYRIDOXINE HCL 50 MG TAB PO SCH (08:41)
[2018-11-07] MEDS: PANTOprazole 40 MG TAB PO SCH (08:41)
[2018-11-07] MEDS: METOPROLOL SUCC 50MG EXT REL TAB PO SCH (08:41)
[2018-11-07] MEDS: MONTELUKAST SODIUM 10 MG TABLET PO SCH (08:41)
[2018-11-07] MEDS: ACETAMINOPHEN 325 MG TAB PO SCH (08:41)
[2018-11-07] MEDS: OXYCODONE HCL 10 MG TABCR (OXYCONTIN) PO SCH ×2 (08:41→20:18)
[2018-11-07] MEDS ORDERED: EPOETIN ALFA 10,000 UNITS/ML VIAL IV ONE (11:00)
--- NOTE | 2018-11-07 11:13 | Nephrology Progress Note ---
Date of Service November 07, 2018 Assessment & Plan (1) End stage renal disease: End-stage renal disease secondary to cardiorenal syndrome has been on dialysis Friday, Friday, Friday via right IJ tunneled dialysis catheter. Has right brachiocephalic AV fistula maturing. Admitted to the hospital with shortness of breath and volume overload. Received [id number] dialysis 3 days with some improvement in volume status as she has been having difficulty with UF with significant drop in blood pressure despite being on midodrine.. Had repeated discussion with patient family with palliative care involved about hospice care as patient overall not doing well and has been having difficulty tolerating dialysis and UF as well as recurrent hospital admission for volume overload. Patient does not want hospice at this time and wants to continue with dialysis. Ongoing discussion about possible hospice was versus comfort care as patient is getting more and more lethargic and drowsy. --will continue to use TDC for treatment due to discomfort in left arm related to clavicle fracture and difficulty positioning needles in AVF if patient decided to continue dialysis however considering her current overall health status best option would be comfort care/hospice care --will give Epogen with dialysis Will follow Subjective Crystal was seen and examined in her room this morning. She has been very lethargy and drowsy, barely open her eye and spoke a lit but quickly closed her eyes and fell asleep. Vital signs has been stable. Review of Systems Review of Systems: Unobtainable due to reduced consciousness Physical Exam Constitutional: + ill appearing, + frail appearing and + lethargic Respiratory: Auscultation: + diminished lung sounds and + crackles Cardiovascular: Heart Sounds: normal S1 and normal S2 Extremities: + edema and + AV fistula (with thrill and bruit) Neurologic: moves all extremities and awake Psychiatric: Orientation: alert and oriented x 3 Affect: + depressed affect Mood: + dysphoric mood Results & Data Vital Signs (Past 12 Hours) Vital Signs Temp Pulse Pulse Resp BP BP Pulse Ox 11/07/18 09:00 62 11/07/18 07:45 37.1 C 83 18 117/65 98 11/07/18 02:56 36.4 C L 62 22 106/59 L 98 11/06/18 23:55 36.3 C L 70 20 115/52 L 95 PG Care Time/CCT Total # of Minutes Spent Total Time Spent with Patient: Total time spent is greater than 50% in coordination of care (as documented) at patient's floor/unit and/or counseling patient:
[2018-11-07] MEDS ORDERED: CALCIUM CARBONATE 500 MG CHEWABLE TAB PO SCH (12:00)
[2018-11-07] MEDS ORDERED: INSULIN GLARGINE SOLOSTAR 100 UNITS/ML 3 ML PEN SQ SCH (14:41)
[2018-11-07] MEDS ORDERED: MoRPHine SULFATE 10 MG/0.5 ML UDP PO PRN (14:41)
[2018-11-07] MEDS ORDERED: fentaNYL 25 MCG/HR TDSY TD SCH (14:45)
--- NOTE | 2018-11-07 14:51 | Hospitalist Progress Note ---
Date of Service November 07, 2018 Assessment & Plan (1) Palliative care encounter: patient agrees to hospice/comfort measures as of today 11/07 she does not want hemodialysis on 11/09, I discussed this with nephrology she wants to be assured that she will be comfortable I will increase Fentanyl patch to 37mcg and add Roxanol 10mg PO to use every 4 hours Valium and Dilaudid IV as needed for sleep at night will discontinue all non-essential medications continue to eat for comfort needs repositioned every 2 hours keep through the weekend, if she is rapidly declining off of hemodialysis then keep in hospital if she is alert and eating then discharge to [facility] on hospice on Friday/Friday (2) Shortness of breath: Long-standing complaint for the patient; however, it does appear to be worse from baseline as she now is on 4L NC (up from 2L on discharge). CXR from 11/01 however shows improvement in her pulmonary edema. Likely due to continued volume overload from her ESRD & COPD vs. from her anemia. breathing better after additional HD session on 11/03 really have done nothing to address the dyspnea except hemodialysis can use Roxanol as needed for any dyspnea (3) Anemia: Baseline hgb is ~8-9. Hemoglobin on admission was 7.4. Macrocytic. 7.7 again 11/06, really no change all week - Likely multifactorial from CKD, chronic disease, mild destruction from her valve. - Ferritin 368, B12 is > 2000 so she has no deficiencies stop checking labs, stop EPO (4) End stage renal disease: Gets HD M-W-. tolerated HD on 11/[address] Oswald on conversation with patient on 11/07 HD will be stopped stop all nephrology related medications (5) History of mitral valve replacement with mechanical valve: She was admitted with an INR of 5.5 last admission. Given vitamin K. Discharged with INR of 1.9 and told to restart warfarin. stop Coumadin, no plans to check INR (6) Diabetes mellitus: Last A1c was 5.8% in 03/2018. - Long-acting and sliding scale insulin - Glycemic pharmacist stop Lantus (7) Atrial fibrillation: EKG on admission showed paced rhythm. - Continue digoxin, beta-jose roberto for time being, can stop if she is not alert enough to take - stop Coumadin (8) COPD (chronic obstructive pulmonary disease): Per notes, though home med list has no inhalers. - Continue montelukast - DuoNebs PRN (9) Cirrhosis: Thought to be due to hepatic congestion from her chronic volume overload. - Monitor mental status (10) Clavicle fracture: Fractured her clavicle in a fall in September. Had planned to have surgery with Dr. Ramirez of [facility] orthopedics; however, her pre-op assessment by cardiology appears to have been poor enough that surgery was cancelled. not a surgical candidate use Fentanyl and Oxycodone for pain control increased Fentanyl to 37mcg and added Dilaudid 0.5mg IV for breakthrough use Roxanol as needed as well as Oxycodone q12 (11) Hypothyroidism: TSH was 20.3 on 10/21; however, it was coming down after increase in levothyroxine. stop Synthroid due to being on hospice (12) Acute on chronic diastolic (congestive) heart failure: volume overload due to ESRD improved with ultrafiltration, no acute component on 11/04 through 11/07 (13) Chronic respiratory failure with hypoxia: stable on 2-4L chronically her dyspnea and hypoxia is multifactorial with heart failure, deconditioning, pulmonary HTN use Roxanol PRN for dyspnea (14) DVT prophylaxis: none, comfort care Subjective patient was sleeping this morning, looked at notes from breakfast, only ate 10% of tray came back around lunch when she was awake she reported that she had a good conversation with her son Fidencio, she had decided to stop hemodialysis she just wanted to be assured that she would be comfortable I confirmed that if we would go the route of comfort, then we would not be doing dialysis on Friday, she agreed with that I spoke with Fidencio over the phone, he agreed that his mom was looking worse, not getting any better she appeared very weak to him, he was on board with comfort if that is what she wants discussed that I would start some medications that they could continue at [facility] would increase the Fentanyl patch, add some Roxanol to take PRN every 4 hours, the Dilaudid IV would still be available will limit her medications to just the essentials stop all labs keep her here today and Friday, if she is declining rapidly then keep in hospital if she is still alert and eating then send to [facility] Friday/Friday on hospice Review of Systems Review of Systems: All systems reviewed & are unremarkable except as noted in HPI & below Constitutional: + body aches, + fatigue and + weakness; no fever Respiratory: + dyspnea and + dyspnea on exertion Cardiovascular: + edema; no chest pain Gastrointestinal: + early satiety (minimal appetite) and + constipation; no abdominal pain, no nausea, no vomiting and no diarrhea/loose stools Musculoskeletal: + back pain and + joint pain (right shoulder and clavicle) Psychiatric: + depression Physical Exam Constitutional: well developed, + ill appearing, + thin and + frail appearing Eyes: PERRL, conjunctivae normal, anicteric sclerae ENMT: external ear and nose normal, oropharynx normal Neck: trachea midline, no thyromegaly Respiratory: normal respiratory effort; no respiratory distress Auscultation: + diminished lung sounds (bases) Cardiovascular: Rate/Rhythm: regular rate and + irregularly irregular Heart Sounds: normal S1 and normal S2; no murmur Extremities: normal capillary refill and + edema Gastrointestinal (Abdomen): normal bowel sounds, soft, nontender, no hepatosplenomegaly Musculoskeletal: Head/Neck/Chest: normocephalic and head atraumatic Extremities: + limited ROM of extremities (right shoulder) and + muscle atrophy; no cyanosis, no clubbing and no petechiae Skin: + turgor decreased, + wound and + skin atrophy Neurologic: patellar DTR's 2+ bilat, sensation intact and PERRL, EOMI, accommodation nl, no face palsy, no dysarthria Psychiatric: Orientation: alert and oriented x 3 Affect: + depressed affect Mood: + depressed mood Lymphatic: no cervical or axillary lymphadenopathy Results & Data Vital Signs (Past 12 Hours) Vital Signs Temp Pulse Pulse Resp BP BP Pulse Ox 11/07/18 11:48 36.5 C 64 18 93/52 L 97 11/07/18 09:00 62 11/07/18 07:45 37.1 C 83 18 117/65 98 11/07/18 02:56 36.4 C L 62 22 106/59 L 98 Laboratory Results Laboratory Results - last 24 hr 11/06/18 11/06/18 11/07/18 16:12 20:17 06:02 PT 21.7 H INR 2.2 H POC Glucose 98 115 H 11/07/18 11/07/18 07:30 11:36 PT INR POC Glucose 94 96 Medications Administered Current Inpatient Medications Acetaminophen (Tylenol) 650 mg PO QAM [facility] Stop: 12/01/18 08:59 Last Admin: 11/07/18 08:41 Dose: 650 mg Documented by: Acetaminophen (Tylenol) 650 mg PO Q6H PRN PRN Reason: Fever Or Pain Stop: 11/30/18 11:07 Last Admin: 11/02/18 20:07 Dose: 650 mg Documented by: Albuterol (Duoneb) 3 ml INH QID PRN PRN Reason: Shortness Of Breath Stop: 11/30/18 11:07 Dextrose (Dextrose 50%) 25 - 50 ml IV UD PRN; Protocol PRN Reason: Hypoglycemia Protocol Stop: 11/30/18 15:18 Diazepam (Valium) 5 mg PO HS [facility] Stop: 11/30/18 20:59 Last Admin: 11/06/18 21:11 Dose: 5 mg Documented by: Diclofenac Sodium (Voltaren 1% Top) 1 appln EXT TID PRN PRN Reason: Shoulder pain Stop: 11/30/18 20:59 Last Admin: 11/07/18 13:46 Dose: 1 appln Documented by: Digoxin (Lanoxin) 0.0625 mg PO MoWeFr@1600 [facility] Stop: 12/02/18 15:59 Last Admin: 11/06/18 16:15 Dose: 0.0625 mg Documented by: Diphenhydramine HCl (Benadryl Capsule) 25 mg PO Q6H PRN PRN Reason: Itching Stop: 12/04/18 18:19 Last Admin: 11/06/18 21:12 Dose: 25 mg Documented by: Fentanyl (Duragesic) 37 mcg TD Q3D@1300 [facility] Stop: 11/21/18 14:44 Glucagon (Glucagen) 1 mg SQ UD PRN; Protocol PRN Reason: Hypoglycemia Protocol Stop: 11/30/18 15:18 Glucose (Glucose 40%) 15 - 30 gm PO UD PRN; Protocol PRN Reason: Hypoglycemia Protocol Stop: 11/30/18 15:18 Last Admin: 11/04/18 08:51 Dose: 15 gm Documented by: Glucose (Dex4 Glucose) 4 - 8 tabs PO UD PRN; Protocol PRN Reason: Hypoglycemia Protocol Stop: 11/30/18 15:18 Hydromorphone HCl (Dilaudid) 0.5 mg IV HS PRN PRN Reason: Pain Stop: 11/17/18 16:46 Last Admin: 11/07/18 03:11 Dose: 0.5 mg Documented by: Insulin Aspart (Novolog Flexpen) 0 units SC ACHS [facility] Stop: 11/30/18 16:29 Last Admin: 11/07/18 13:02 Dose: 4 units Documented by: Insulin Glargine (Lantus Solostar Pen) 0 units SQ HS [facility]; Protocol Stop: 11/30/18 20:59 Metoprolol Succinate (Toprol Xl) 50 mg PO QAM [facility] Stop: 12/01/18 08:59 Last Admin: 11/07/18 08:41 Dose: 50 mg Documented by: Miscellaneous (Fentanyl Patch Check Placement) 1 ea N/A QS [facility] Stop: 11/30/18 15:59 Last Admin: 11/07/18 08:41 Dose: 1 ea Documented by: Miscellaneous (Carbohydrates For Hypoglycemia) 15 - 30 gm PO UD PRN PRN Reason: Hypoglycemia Treatment Stop: 11/30/18 15:18 Last Admin: 11/04/18 07:50 Dose: 15 gm Documented by: Miscellaneous (Fentanyl Patch Remove & Waste) 1 ea N/A Q3D@1559 [facility] Stop: 12/03/18 15:58 Last Admin: 11/06/18 14:57 Dose: 1 ea Documented by: Miscellaneous Information (Consult Glycemic Management Pharmacy) 1 ea N/A UD PRN; Protocol PRN Reason: Consult Stop: 11/30/18 15:44 Morphine Sulfate (Roxanol) 10 mg PO Q4 PRN PRN Reason: Pain Stop: 11/21/18 14:40 Ondansetron HCl (Zofran Tab) 4 mg PO Q8 PRN PRN Reason: Nausea And Vomiting Stop: 11/30/18 11:07 Oxycodone HCl (Roxicodone Immediate Rel) 5 mg PO Q12H PRN PRN Reason: Pain Stop: 11/14/18 11:07 Last Admin: 11/07/18 05:10 Dose: 5 mg Documented by: Oxycodone HCl (Oxycontin) 10 mg PO Q12 [facility] Stop: 11/14/18 20:59 Last Admin: 11/07/18 08:41 Dose: 10 mg Documented by: PG Care Time/CCT Total # of Minutes Spent Total Time Spent with Patient: Total time spent is greater than 50% in coordination of care (as documented) at patient's floor/unit and/or counseling patient: (1) Anemia Anemia type: unspecified type Qualified Code(s): D64.9 - Anemia, unspecified (2) Diabetes mellitus Diabetes mellitus type: type 2 Diabetes mellitus care home insulin use: with care home use Diabetes mellitus complication status: with kidney complications Diabetes mellitus complication detail: with chronic kidney disease Chronic kidney disease stage: stage 4 (severe) Qualified Code(s): E11.22 - 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
[2018-11-07] MEDS: fentaNYL 12 MCG/HR TDSY TD SCH (15:24)
[2018-11-07] MEDS: fentaNYL 25 MCG/HR TDSY TD SCH (15:24)
[2018-11-07] MEDS: diazePAM 5 MG TABLET PO SCH (20:18)
[2018-11-08] MEDS: CHECK FENTANYL PATCH PLACEMENT SCH ×6 (08:15→14:52)
[2018-11-08] MEDS: OXYCODONE HCL 10 MG TABCR (OXYCONTIN) PO SCH ×2 (08:15→23:27)
[2018-11-08] MEDS: METOPROLOL SUCC 50MG EXT REL TAB PO SCH (08:16)
[2018-11-08] MEDS ORDERED: HYDROmorphone INJ 0.5 MG/0.5 ML SYR IV PRN (09:22)
--- NOTE | 2018-11-08 14:35 | Hospitalist Progress Note ---
Date of Service November 08, 2018 Assessment & Plan (1) Palliative care encounter: patient agrees to hospice/comfort measures as of 11/07 she does not want hemodialysis on 11/09, I discussed this with nephrology she wants to be assured that she will be comfortable Fentanyl patch increased to 37mcg and added Roxanol 10mg PO to use every 4 hours on 11/07, this is working thus far Valium and Dilaudid IV as needed for sleep at night will discontinue all non-essential medications continue to eat for comfort needs repositioned every 2 hours keep through the weekend, if she is rapidly declining off of hemodialysis then keep in hospital if she is alert and eating then discharge to [facility] on hospice Friday/Friday if they can take her (2) Shortness of breath: Long-standing complaint for the patient; however, it does appear to be worse from baseline as she now is on 4L NC (up from 2L on discharge). CXR from 11/01 however shows improvement in her pulmonary edema. Likely due to continued volume overload from her ESRD & COPD vs. from her anemia. breathing better after additional HD session on 11/03 really have done nothing to address the dyspnea except hemodialysis can use Roxanol as needed for any dyspnea (3) Anemia: Baseline hgb is ~8-9. Hemoglobin on admission was 7.4. Macrocytic. 7.7 again 11/06, really no change all week - Likely multifactorial from CKD, chronic disease, mild destruction from her valve. - Ferritin 368, B12 is > 2000 so she has no deficiencies stop checking labs, stop EPO (4) End stage renal disease: Gets HD M-W-. tolerated HD on 11/[address] Oswald on conversation with patient on 11/07 HD will be stopped stop all nephrology related medications (5) History of mitral valve replacement with mechanical valve: She was admitted with an INR of 5.5 last admission. Given vitamin K. Discharged with INR of 1.9 and told to restart warfarin. stop Coumadin, no plans to check INR (6) Diabetes mellitus: Last A1c was 5.8% in 03/2018. - Long-acting and sliding scale insulin - Glycemic pharmacist stop Lantus (7) Atrial fibrillation: EKG on admission showed paced rhythm. - Continue digoxin, beta-jose roberto for time being, can stop if she is not alert enough to take - stop Coumadin (8) COPD (chronic obstructive pulmonary disease): Per notes, though home med list has no inhalers. - Continue montelukast - DuoNebs PRN (9) Cirrhosis: Thought to be due to hepatic congestion from her chronic volume overload. - Monitor mental status (10) Clavicle fracture: Fractured her clavicle in a fall in September. Had planned to have surgery with Dr. Ramirez of [facility]; however, her pre-op assessment by cardiology appears to have been poor enough that surgery was cancelled. not a surgical candidate use Fentanyl and Oxycodone for pain control increased Fentanyl to 37mcg and added Dilaudid 0.5mg IV for breakthrough use Roxanol as needed as well as Oxycodone q12 (11) Hypothyroidism: TSH was 20.3 on 10/21; however, it was coming down after increase in levothyroxine. stop Synthroid due to being on hospice (12) Acute on chronic diastolic (congestive) heart failure: volume overload due to ESRD improved with ultrafiltration, no acute component on 11/04 through 11/07 (13) Chronic respiratory failure with hypoxia: stable on 2-4L chronically her dyspnea and hypoxia is multifactorial with heart failure, deconditioning, pulmonary HTN use Roxanol PRN for dyspnea (14) DVT prophylaxis: none, comfort care Subjective patient resting in bed, she says she is fairly comfortable still with some pain in her back, requires repositioning her appetite is good today explained that we want to make sure we have an adequate pain regimen prior to returning to [facility] [place] she agreed with this no labs as she is comfort care Review of Systems Review of Systems: All systems reviewed & are unremarkable except as noted in HPI & below Constitutional: + fatigue and + weakness; no fever Respiratory: no dyspnea Cardiovascular: no chest pain Musculoskeletal: + back pain and + joint pain Physical Exam Constitutional: well developed, + ill appearing, + thin and + frail appearing Eyes: PERRL, conjunctivae normal, anicteric sclerae ENMT: external ear and nose normal, oropharynx normal Neck: trachea midline, no thyromegaly Respiratory: normal respiratory effort; no respiratory distress Auscultation: + diminished lung sounds (bases) Cardiovascular: Rate/Rhythm: regular rate and + irregularly irregular Heart Sounds: normal S1 and normal S2; no murmur Extremities: normal capillary refill and + edema Gastrointestinal (Abdomen): normal bowel sounds, soft, nontender, no hepatosplenomegaly Musculoskeletal: Head/Neck/Chest: normocephalic and head atraumatic Extremities: + limited ROM of extremities (right shoulder) and + muscle atrophy; no cyanosis, no clubbing and no petechiae Skin: + turgor decreased, + wound and + skin atrophy Neurologic: patellar DTR's 2+ bilat, sensation intact and PERRL, EOMI, accommodation nl, no face palsy, no dysarthria Psychiatric: Orientation: alert and oriented x 3 Affect: + depressed affect Mood: + depressed mood Lymphatic: no cervical or axillary lymphadenopathy Results & Data Medications Administered Current Inpatient Medications Acetaminophen (Tylenol) 650 mg PO Q6H PRN PRN Reason: Fever Or Pain Stop: 11/30/18 11:07 Last Admin: 11/02/18 20:07 Dose: 650 mg Documented by: Albuterol (Duoneb) 3 ml INH QID PRN PRN Reason: Shortness Of Breath Stop: 11/30/18 11:07 Dextrose (Dextrose 50%) 25 - 50 ml IV UD PRN; Protocol PRN Reason: Hypoglycemia Protocol Stop: 11/30/18 15:18 Diazepam (Valium) 5 mg PO HS [facility] Stop: 11/30/18 20:59 Last Admin: 11/07/18 20:18 Dose: 5 mg Documented by: Diclofenac Sodium (Voltaren 1% Top) 1 appln EXT TID PRN PRN Reason: Shoulder pain Stop: 11/30/18 20:59 Last Admin: 11/07/18 13:46 Dose: 1 appln Documented by: Digoxin (Lanoxin) 0.0625 mg PO MoWeFr@1600 [facility] Stop: 12/02/18 15:59 Last Admin: 11/06/18 16:15 Dose: 0.0625 mg Documented by: Diphenhydramine HCl (Benadryl Capsule) 25 mg PO Q6H PRN PRN Reason: Itching Stop: 12/04/18 18:19 Last Admin: 11/06/18 21:12 Dose: 25 mg Documented by: Fentanyl (Duragesic) 12 mcg TD Q3D@1530 [facility] Stop: 11/21/18 15:29 Last Admin: 11/07/18 15:24 Dose: 12 mcg Documented by: Fentanyl (Duragesic) 25 mcg TD Q3D@1530 [facility] Stop: 11/21/18 15:29 Last Admin: 11/07/18 15:24 Dose: 25 mcg Documented by: Glucagon (Glucagen) 1 mg SQ UD PRN; Protocol PRN Reason: Hypoglycemia Protocol Stop: 11/30/18 15:18 Glucose (Glucose 40%) 15 - 30 gm PO UD PRN; Protocol PRN Reason: Hypoglycemia Protocol Stop: 11/30/18 15:18 Last Admin: 11/04/18 08:51 Dose: 15 gm Documented by: Glucose (Dex4 Glucose) 4 - 8 tabs PO UD PRN; Protocol PRN Reason: Hypoglycemia Protocol Stop: 11/30/18 15:18 Hydromorphone HCl (Dilaudid) 0.5 mg IV HS PRN PRN Reason: Pain Stop: 11/17/18 16:46 Last Admin: 11/07/18 03:11 Dose: 0.5 mg Documented by: Hydromorphone HCl (Dilaudid) 0.5 mg IV Q4 PRN PRN Reason: Pain Stop: 11/22/18 09:21 Metoprolol Succinate (Toprol Xl) 50 mg PO QAM [facility] Stop: 12/01/18 08:59 Last Admin: 11/08/18 08:16 Dose: Not Given Documented by: Miscellaneous (Fentanyl Patch Check Placement) 1 ea N/A QS [facility] Stop: 11/30/18 15:59 Last Admin: 11/08/18 08:15 Dose: 1 ea Documented by: Miscellaneous (Carbohydrates For Hypoglycemia) 15 - 30 gm PO UD PRN PRN Reason: Hypoglycemia Treatment Stop: 11/30/18 15:18 Last Admin: 11/04/18 07:50 Dose: 15 gm Documented by: Miscellaneous (Fentanyl Patch Remove & Waste) 1 ea N/A Q3D@1559 [facility] Stop: 12/03/18 15:58 Last Admin: 11/06/18 14:57 Dose: 1 ea Documented by: Miscellaneous (Fentanyl Patch Remove & Waste) 1 ea N/A Q3D@1529 [facility] Stop: 12/07/18 15:28 Last Admin: 11/07/18 15:24 Dose: 1 ea Documented by: Miscellaneous (Fentanyl Patch Check Placement) 1 ea N/A QS [facility] Stop: 09/23/19 15:59 Last Admin: 11/08/18 08:15 Dose: 1 ea Documented by: Miscellaneous (Fentanyl Patch Remove & Waste) 1 ea N/A Q72H [facility] Stop: 12/10/18 15:28 Miscellaneous (Fentanyl Patch Check Placement) 1 ea N/A QS [facility] Stop: 12/07/18 15:59 Last Admin: 11/08/18 08:15 Dose: 1 ea Documented by: Morphine Sulfate (Roxanol) 10 mg PO Q4 PRN PRN Reason: Pain Stop: 11/21/18 14:40 Ondansetron HCl (Zofran Tab) 4 mg PO Q8 PRN PRN Reason: Nausea And Vomiting Stop: 11/30/18 11:07 Oxycodone HCl (Oxycontin) 10 mg PO Q12 [facility] Stop: 11/14/18 20:59 Last Admin: 11/08/18 08:15 Dose: 10 mg Documented by: PG Care Time/CCT Total # of Minutes Spent Total Time Spent with Patient: Total time spent is greater than 50% in coordination of care (as documented) at patient's floor/unit and/or counseling patient: (1) Anemia Anemia type: unspecified type Qualified Code(s): D64.9 - Anemia, unspecified (2) Diabetes mellitus Diabetes mellitus type: type 2 Diabetes mellitus fpc insulin use: with fpc use Diabetes mellitus complication status: with kidney complications Diabetes mellitus complication detail: with chronic kidney disease Chronic kidney disease stage: stage 4 (severe) Qualified Code(s): E11.22 - Type 2 diabetes mellitus with diabetic chronic kidney disease; N18.4 - Chronic kidney disease, stage 4 (severe); 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
[2018-11-08] MEDS: diazePAM 5 MG TABLET PO SCH (23:27)
[2018-11-09] MEDS: CHECK FENTANYL PATCH PLACEMENT SCH ×9 (00:35→19:31)
[2018-11-09] MEDS: OXYCODONE HCL 10 MG TABCR (OXYCONTIN) PO SCH (08:23)
[2018-11-09] MEDS: METOPROLOL SUCC 50MG EXT REL TAB PO SCH (08:24)
--- NOTE | 2018-11-09 12:41 | Palliative Care Progress Note ---
Date of Service November 09, 2018 Assessment & Plan (1) Goals of care, counseling/discussion: -Apparently it was decided over the weekend, by patient and her son, to transition to comfort measures only and stop dialysis. -Today, patient is lethargic. Her edema is clearly worse than on Friday. -Patient was able to wake for brief moments and told me that she has occasional back pain. Was not experiencing SOB or other discomforts during my visit. -Asked patient if the plan was to focus on comfort and transition to hospice care, as well as stopping dialysis. She answered "yes" but did not elaborate. -Patient is a bed hold at [facility]. Can return there on comfort/hospice care. Hospitalist physician to determine her readiness for discharge. -Will follow as needed. -Given Roxanol for pain, avoid IV medications in anticipation of possible discharge. (2) End stage renal disease: (3) SOB (shortness of breath): (4) Valvular heart disease: Subjective Patient is lethargic today, but was able to wake up and answer a couple questions. Review of Systems Review of Systems: C/o occasional back pain and generalized pain. No SOB at this time. Physical Exam Constitutional: + ill appearing (chronically); no acute distress ENMT: Ears: no hearing impairment Respiratory: normal respiratory effort; no labored breathing Auscultation: + diminished lung sounds Cardiovascular: Rate/Rhythm: regular rate and regular rhythm Extremities: + edema (+4 pitting edema to BUE, +2 pitting to BLE) Gastrointestinal (Abdomen): Inspection/Auscultation: abdomen normal to inspection and normal bowel sounds Percussion/Palpation: abdomen soft Neurologic: + confused (lethargic) Time Spent Midlevel 25 minutes with >50% of the time spent at bedside with patient and IDT discussing comfort care and POC.
[2018-11-09] MEDS ORDERED: LORazepam 0.5 MG/1 ML VIAL IV PRN (16:37)
[2018-11-09] MEDS: DICLOFENAC SOD 1% GEL 100 GM TUBE EXT PRN ×3 (16:44→21:27)
[2018-11-09] MEDS: MoRPHine SULF/NSS 100 MG/100 ML BAG IV PRN (17:17)
--- NOTE | 2018-11-09 19:25 | Hospitalist Progress Note ---
Date of Service November 09, 2018 Assessment & Plan (1) Palliative care encounter: Over the weekend the patient had a lengthy discussion with Dr Guzman from the hospitalist team. At that time she voiced to him she wished to transition to comfort care measures/hospice. This information was then relayed to the nephrology team and dialysis was deferred today. All non-essential medications were stopped this weekend including daily labs. Today during rounds she was quite uncomfortable, dyspneic, and altered. This was despite use of fentanyl patch. This had been increased over the weekend. In light of worsening status (agitation, pain/discomfort multiple locations, dyspnea/distress, etc) I elected to start a morphine infusion this evening. Gave bolus of 4mg x 1 followed by continuous drip of 2mg/hour with titration parameters. Stop the oxycontin BID. Leave fentanyl patches as is. Add ativan 0.5mg prn for agitation/anxiety. May increase O2 via NC for comfort. Appreciate palliative care consultation and input. (2) End stage renal disease: (3) Chronic respiratory failure with hypoxia: (4) Acute on chronic diastolic (congestive) heart failure: (5) H/O mitral valve replacement with mechanical valve: (6) Anemia: (7) Hypothyroidism: (8) Pulmonary hypertension: (9) Cor pulmonale (chronic): (10) Diabetes mellitus: (11) Atrial fibrillation: (12) Cirrhosis: (13) Pleural effusion, right: (14) Asthma: (15) Encephalopathy: Subjective patient confused during the visit. seemed uncomfortable; asked for repositioning. staff report she is asking to be repositioned every 30 minutes or so. she admitted to feeling dyspneic. having pain in back and shoulders. Review of Systems Review of Systems: Unobtainable due to cognitive status Physical Exam Constitutional: + acute distress (tachypneic, dyspneic, confused, uncomfortable) ENMT: Mouth: + dry oral mucous membranes Respiratory: + respiratory distress, + labored breathing and + tachypneic Auscultation: + diminished lung sounds and + crackles Cardiovascular: Rate/Rhythm: + tachycardic; + abnormal rhythm Heart Sounds: normal S1, normal S2 and + murmur Vessels: + JVD Extremities: + edema (all 4 limbs) Gastrointestinal (Abdomen): Inspection/Auscultation: + abdomen distended and normal bowel sounds Percussion/Palpation: + abdomen tender Psychiatric: Orientation: + not alert and + not oriented x 3 PG Care Time/CCT Total # of Minutes Spent Total Time Spent with Patient: Total time spent is greater than 50% in coordination of care (as documented) at patient's floor/unit and/or counseling patient: (1) Anemia Anemia type: unspecified type Qualified Code(s): D64.9 - Anemia, unspecified (2) Hypothyroidism Hypothyroidism type: acquired Qualified Code(s): E03.9 - Hypothyroidism, unspecified (3) Diabetes mellitus Diabetes mellitus type: type 2 Diabetes mellitus detention insulin use: with detention use Diabetes mellitus complication status: with kidney complications Diabetes mellitus complication detail: with chronic kidney disease Chronic kidney disease stage: stage 4 (severe) Qualified Code(s): E11.22 - Type 2 diabetes mellitus with diabetic chronic kidney disease; N18.4 - Chronic kidney disease, stage 4 (severe); Z79.4 - ocean transportation intermediary (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 of insulin (4) Atrial fibrillation Atrial fibrillation type: chronic Qualified Code(s): I48.2 - Chronic atrial fibrillation (5) Cirrhosis Hepatic cirrhosis type: other cirrhosis Qualified Code(s): K74.69 - Other cirrhosis of liver (6) Asthma Asthma severity: unspecified severity Asthma persistence: unspecified Asthma complication type: uncomplicated Qualified Code(s): J45.909 - Unspecified asthma, uncomplicated
[2018-11-09] MEDS: DIGOXIN 0.125 MG TAB PO SCH (19:29)
[2018-11-09] MEDS: diazePAM 5 MG TABLET PO SCH (21:26)
[2018-11-10] MEDS: DICLOFENAC SOD 1% GEL 100 GM TUBE EXT PRN (00:38)
[2018-11-10] MEDS: CHECK FENTANYL PATCH PLACEMENT SCH ×9 (01:14→23:08)
[2018-11-10] MEDS: METOPROLOL SUCC 50MG EXT REL TAB PO SCH (08:00)
[2018-11-10] MEDS ORDERED: SCOPOLAMINE 1.5 MG TDSY TD SCH (10:00)
[2018-11-10] MEDS: ATROPINE SULFATE 1% OP SOLN 2 ML BTL SL PRN ×4 (10:41→23:10)
--- NOTE | 2018-11-10 11:13 | Palliative Care Progress Note ---
Date of Service November 10, 2018 Assessment & Plan (1) Goals of care, counseling/discussion: -Yesterday evening patient had increased restlessness, pain, and generalized discomfort. She was started on a continuous morphine infusion. -This morning, patient barely wakes to stimuli. Respirations are 10bpm, prolonged expiration and are slightly agonal. -Increased moist secretions. Atropine drops and scopolamine patch are ordered. -Patient appears comfortably and in no distress. Toes and knees are cold, maybe some slight mottling starting. -Patient expected to in next hours to days. Not stable for transfer out of facility today. (2) End stage renal disease: (3) SOB (shortness of breath): (4) Valvular heart disease: Subjective Patient is nearly obtunded, barely wakes to stimuli. Was started on continue morphine infusion last evening. Review of Systems Review of Systems: Unobtainable due to cognitive status Physical Exam Constitutional: + ill appearing (chronically); no acute distress ENMT: Ears: no hearing impairment Respiratory: no labored breathing audible secretions Cardiovascular: Rate/Rhythm: regular rate and regular rhythm Extremities: + edema (+4 pitting edema to BUE, +2 pitting to BLE) Gastrointestinal (Abdomen): Inspection/Auscultation: abdomen normal to inspection and normal bowel sounds Percussion/Palpation: abdomen soft Neurologic: + not awake (lethargic, nearly obtunded) Supervising Physician Co-Signing Physician Notes Patient seen and examined, collaborated with DAYANNA St Patient is currently on comfort care approaching end-of-life. Patient on a morphine drip at 3 mg/h. Patient also requiring PRN atropine and scopolamine to control her secretions. PE: Patient appears comfortable, NAD. Patient did not respond to voice or touch Respirations: Unlabored, upper airway excess secretions noted CV: Tachycardic Abdomen: Positive anasarca Extremities: Pitting edema all extremities Neuro: Unresponsive to voice or touch Agree with above note, assessment and plan as per DAYANNA St-will continue to follow and monitor for comfort. Time Spent Midlevel 25 minutes with >50% of the time spent at bedside with patient and care team discussing comfort measures and POC.
[2018-11-10] MEDS: fentaNYL 12 MCG/HR TDSY TD SCH (15:41)
[2018-11-10] MEDS: fentaNYL 25 MCG/HR TDSY TD SCH (15:41)
[2018-11-10] MEDS: CHECK SCOPOLAMINE PATCH PLACEMENT SCH ×2 (15:44→23:08)
[2018-11-10] MEDS: diazePAM 5 MG TABLET PO SCH (19:02)
--- NOTE | 2018-11-10 21:36 | Hospitalist Progress Note ---
Date of Service November 10, 2018 Assessment & Plan (1) Palliative care encounter: Patient started on morphine infusion yesterday for restlessness, intractable pain, and worsening dyspnea. Titrate for optimal patient comfort. Cont fentanyl patches as is. Cont ativan 0.5mg prn for agitation. Cont NC O2. Add scopalamine patch q72h for secretions and atropine drops prn as well. Appreciate palliative care recs. Updated son, Fidencio, at 2044 this evening. Informed him that her was imminent - perhaps hours to 1-2 days at most but suspect much less than that. (2) End stage renal disease: HD stopped w/ transition to comfort care (3) Chronic respiratory failure with hypoxia: cont NC O2 (4) Acute on chronic diastolic (congestive) heart failure: (5) H/O mitral valve replacement with mechanical valve: all anticoagulation stopped (6) Anemia: all labs stopped all therapies stopped (7) Hypothyroidism: (8) Pulmonary hypertension: (9) Cor pulmonale (chronic): (10) Diabetes mellitus: insulin stopped (11) Atrial fibrillation: stopped all meds; stopped anticoagulation (12) Cirrhosis: (13) Pleural effusion, right: (14) Asthma: (15) Encephalopathy: multifactorial Subjective patient obtunded did not wake to name being called or touch girgling breath sounds and tachypnea noted Review of Systems Review of Systems: Unobtainable due to reduced consciousness Physical Exam Constitutional: + acute distress (tachypnea interspersed with apnea, obtunded) Respiratory: + labored breathing Auscultation: + diminished lung sounds and + crackles Cardiovascular: Rate/Rhythm: + tachycardic and + irregularly irregular Heart Sounds: normal S1, normal S2 and + murmur (2/6 LSB) Extremities: + edema (anasarca all 4 limbs) and + AV fistula (right arm) Gastrointestinal (Abdomen): Inspection/Auscultation: + abdomen distended Percussion/Palpation: abdomen nontender Skin: pale; cool feet Psychiatric: Orientation: + not alert PG Care Time/CCT Total # of Minutes Spent Total Time Spent with Patient: Total time spent is greater than 50% in coordination of care (as documented) at patient's floor/unit and/or counseling patient: (1) Anemia Anemia type: unspecified type Qualified Code(s): D64.9 - Anemia, unspecified (2) Hypothyroidism Hypothyroidism type: acquired Qualified Code(s): E03.9 - Hypothyroidism, unspecified (3) Diabetes mellitus Diabetes mellitus type: type 2 Diabetes mellitus pocket setter lockstitch insulin use: with snf use Diabetes mellitus complication status: with kidney complications Diabetes mellitus complication detail: with chronic kidney disease Chronic kidney disease stage: stage 4 (severe) Qualified Code(s): E11.22 - Type 2 diabetes mellitus with diabetic chronic kidney disease; N18.4 - Chronic kidney disease, stage 4 (severe); Z79.4 - longterm (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 of insulin (4) Atrial fibrillation Atrial fibrillation type: chronic Qualified Code(s): I48.2 - Chronic atrial fibrillation (5) Cirrhosis Hepatic cirrhosis type: other cirrhosis Qualified Code(s): K74.69 - Other cirrhosis of liver (6) Asthma Asthma severity: unspecified severity Asthma persistence: unspecified Asthma complication type: uncomplicated Qualified Code(s): J45.909 - Unspecified asthma, uncomplicated
[2018-11-11] MEDS: MoRPHine SULF/NSS 100 MG/100 ML BAG IV PRN (01:16)
--- NOTE | 2018-11-17 14:30 | Death Summary ---
Date of Service November 11, 2018 Pronouncement Note Date and Time of Date of : 11/11/18 Time of : 00:40 PCOD Preliminary cause of : End-stage renal disease Contributing Factors (1) Chronic respiratory failure with hypoxia: (2) Acute on chronic diastolic (congestive) heart failure: (3) H/O mitral valve replacement with mechanical valve: (4) COPD (chronic obstructive pulmonary disease): (5) Cor pulmonale (chronic): (6) Pulmonary hypertension: (7) Anemia: (8) Hypothyroidism: (9) Diabetes mellitus: (10) Atrial fibrillation: (11) Cirrhosis: (12) Pleural effusion, right: (13) Asthma: (14) Encephalopathy: (15) Clavicle fracture: Summary Additional details: HPI: Crystal Morales is a 78-year-old female with end-stage renal disease. She is on hemodialysis Friday, Friday, Friday at [facility]. Crystal started HD in March 2018 during an inpatient admission at [facility]. Her first dialysis treatment was 03/27/18. She initially presented to the hospital with severe fluid overload, ROSELYN on advanced CKD, as well as acute on chronic anemia. She is dialyzing via a RIJ TDC. AVF was placed 09/22/[address] Seymour. Use of the fistula has been complicated by clavicle fracture and arm sling. CKD attributed to diabetes mellitus and hypertension. She has a complex medical history including cirrhosis (suspected cardiac origin), atrial fibrillation, single chamber pacemaker, diastolic CHF, pulmonary hypertension, chronic right pleural effusion, hypothyroidism, depression, COPD and a history of a history of a mitral valve replacement with mechanical (Dowd-Lee valve). Crystal has a history of breast cancer treated with mastectomy. Crystal is now residing in [facility]. Crystal suffered a recent fracture of her clavicle. Pain management has been complicated. She has often been somnolent during HD treatment due to pain medications. She presented to the hospital yesterday with progressive shortness of breath and weakness. Crystal has been getting regular dialysis, last dialysis was Friday during which she completed a full treatment without complications. Net UF was 2.5 L. Her EDW has been 81 kg. On admission chest x- ray showed mild pulmonary vascular congestion. Troponin was negative. Chest x- ray was not suggestive of pneumonia. Did not have any fever, chills or significant leukocytosis. Currently she continues to have some shortness of breath however she feels better than before. She does have shortness of breath at baseline and uses home oxygen all the time. Has history of cardiomyopathy and chronic congestive heart failure. HOSPITAL COURSE: Ms Morales had a protracted hospital course marked by ongoing dyspnea and hypoxia despite measures to improve her volume status. Palliative care was consulted early on in her hospitalization and ultimately the patient did decide to stop hemodialysis and transition to a comfort care pathway. In her final days she required the use of morphine infusion due to significant agitation, pain, and dyspnea. The patient passed peacefully early on the AM of 11/11/18 at 0040. Additional Data Confirmation of : no pulse, no respirations, no heart sounds and pupils fixed and dilated Attending physician: Tariq Bradley Was code activated?: No Autopsy requested?: No money examiner notified?: No Organ bank notified?: Yes (not eligible for organ donation)
== END 2018-11-11 00:40 | disposition expired | DRG 291 ==
LOC: ED 06:32 → 2N 09:36 → SUATTDRO 09:36 → 2N 10:48
DX: Z82.49 Family history of ischemic heart disease and other diseases of the circulatory system; F32.9 Major depressive disorder, single episode, unspecified; I27.81 Cor pulmonale (chronic); Z79.01 Long term (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 of anticoagulants; I48.91 Unspecified atrial fibrillation; Z51.5 Encounter for palliative care; I50.33 Acute on chronic diastolic (congestive) heart failure; Z88.0 Allergy status to penicillin; E03.9 Hypothyroidism, unspecified; D63.1 Anemia in chronic kidney disease; K74.69 Other cirrhosis of liver; Z99.81 Dependence on supplemental oxygen; Z95.0 Presence of cardiac pacemaker; E87.1 Hypo-osmolality and hyponatremia; Z79.4 Long term (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 of insulin; D53.9 Nutritional anemia, unspecified; Z83.3 Family history of diabetes mellitus; Z95.2 Presence of prosthetic heart valve; J44.9 Chronic obstructive pulmonary disease, unspecified; E11.22 Type 2 diabetes mellitus with diabetic chronic kidney disease; Z88.6 Allergy status to analgesic agent; I13.2 Hypertensive heart and chronic kidney disease with heart failure and with stage 5 chronic kidney disease, or end stage renal disease; N18.6 End stage renal disease; Z99.2 Dependence on renal dialysis; G93.40 Encephalopathy, unspecified; J96.11 Chronic respiratory failure with hypoxia; S42.009A Fracture of unspecified part of unspecified clavicle, initial encounter for closed fracture; Z88.2 Allergy status to sulfonamides